=== PATIENT | female | born 1960 | race Caucasian/White ===

== ENCOUNTER 2016-11-22 14:51 | Outpatient (RCR) | payer BC ==
[~2016-11-22 14:51] MED LIST: ACDPT PO; ACHD5005 PO; AGM875T PO; ALBU8.5H2; ALBU8.5H2 IH; ALPR.5T PO; ATR20T PO; BENA40TA59; BNZ40T PO; BUDE6HFA IH; CA C1TAB26 PO; CETI10TA17 PO; CHOL10003 PO; CIPR500T4 PO; CLN.1T; CLN.1T PO; CLON0.1T PO; CYCL-97 PO; CYCL10TA9 PO; DIAZ2TAB PO; EP225NB05 INH; FELO5TAB3 PO; FEXO180T; FEXO180T PO; FLD5TCR; FLD5TCR PO; FLUT16SP22 NS; GFCD10B PO; GLUC-113 PO; GLUC-144 PO; HYDR-3063 PO; HYDR-3714 PO; HYDR-3812 PO; HYDR-707 PO; HYDR1CAP2; IBUP-15 PO; IPRA3AMP11 INH; IPRA3AMP19 IH; IPRA4AER IH; LEVO1CAP3 PO; LEVO1CAP9 PO; LEVO50TA6 PO; METH4TAB PO; MNTL10T PO; MULT-608; NS.65NA45; OXYC-12 PO; PERFORMIST; PRD10T PO; PRD20T PO; PRM25T PO; PROM25SU10 PR; SLMFT1E INH; TRIA1CAP; TRIA1CAP PO
== END 2017-02-20 | disposition home or self-care (01) ==
LOC: PULM 14:51
PROVIDERS: ATTEND Internal Medicine Critical Care Medicine
DX: G47.10 Hypersomnia, unspecified (principal); J06.9 Acute upper respiratory infection, unspecified; E66.9 Obesity, unspecified; F39 Unspecified mood [affective] disorder; E11.65 Type 2 diabetes mellitus with hyperglycemia
CPT/HCPCS: 99211

== ENCOUNTER → 2017-09-28 | Outpatient (CLI) | payer BC ==
[~2017-09-28] MED LIST changes: +RT-ALBUTEROL SULF 2.5 MG/3 ML PRE-MIX VIAL IH ONE
== END ==
LOC: RT 07:57
PROVIDERS: ATTEND Nurse Practitioner Family
DX: J98.4 Other disorders of lung (principal); J45.909 Unspecified asthma, uncomplicated
CPT/HCPCS: 94060; 94726; 94729

== ENCOUNTER 2018-03-30 16:13 | Inpatient (IN) | payer BC ==
[~2018-03-30] VITALS: Ht 167.6 cm; Wt 148.4 kg
[~2018-03-30 16:13] MED LIST changes: -HYDR-3812 PO; -RT-ALBUTEROL SULF 2.5 MG/3 ML PRE-MIX VIAL IH ONE
[2018-03-30] MEDS ORDERED: MILK OF MAGNESIA 400 MG/5 ML 30 ML UDC PO PRN (16:15)
[2018-03-30] MEDS ORDERED: ANTACID SUSP 30 ML UDC (MYLANTA) PO PRN (16:15)
[2018-03-30] MEDS ORDERED: ACETAMINOPHEN 500 MG TAB (TYLENOL) PO PRN (16:15)
[2018-03-30] MEDS ORDERED: MELATONIN 3 MG TABLET PO PRN (16:15)
[2018-03-30] MEDS ORDERED: VANCOMYCIN INJECTION 0.1 MG in NS (IVPB) 250 ML IV SCH (16:15)
[2018-03-30] MEDS ORDERED: ONDANSETRON 4 MG/2 ML (SDV) Z0FRAN IV PRN (16:15)
--- OUTSIDE RECORDS SUMMARY | 2018-03-30 16:54 | XMS REPORT | Clinical Summary ---
Author Author User, HENRI Organization Formerly [facility] [place] Address Unknown Phone Unavailable Allergies, Adverse Reactions, Alerts Allergy Name Reaction Description Start Date Severity Status Provider NORVAS Critical Active Shayla Jimenez ERYTHROMYCIN Dermatological problems, e.g., rash, hives Critical Active Shayla Jimenez Conditions or Problems Problem Name Problem Code Onset Date Status Entry Date Provider Comment Standard Description Annotate ELEVATED BLOOD PRESSURE WITHOUT DIAGNOSIS OF HYPERTENSION 796.2 Refinement Shayla Jimenez Elevated blood pressure reading without diagnosis of hypertension HYPERTENSION, BENIGN ESSENTIAL, SEVERE 401.1 Active Shayla Jimenez Benign essential hypertension OBESITY 278.00 Active Shayla Jimenez Obesity, unspecified DIABETES MELLITUS, TYPE II, FAMILY HX V18.0 Resolved Shayla Jimenez Family history of diabetes mellitus ABNORMAL MAMMOGRAM 793.80 Resolved Shayla Jimenez Abnormal mammogram, unspecified OSTEOARTHRITIS 715.90 Active Shayla Jimenez Osteoarthrosis, unspecified whether generalized or localized, involving unspecified site HYPERCHOLESTEROLEMIA 272.0 Active Shayla Jimenez Pure hypercholesterolemia HYPERTRIGLYCERIDEMIA 272.1 Active Shayla Jimenez Pure hyperglyceridemia ASTHMA NOS W/O STATUS ASTHMATICUS 493.90 Resolved Shayla Jimenez Asthma, unspecified BREAST MASS, LEFT 611.72 Resolved Shayla Jimenez Lump or mass in breast URI 465.9 Resolved Shayla Jimenez Acute upper respiratory infections of unspecified site KNEE PAIN 719.46 Resolved Shayla Jimenez Pain in joint involving lower leg right WEIGHT GAIN, ABNORMAL 783.1 Resolved Shayla Jimenez Abnormal weight gain DECREASED LIBIDO 302.70 Resolved Shayla Jimenez Psychosexual dysfunction, unspecified CARPAL TUNNEL SYNDROME, BILATERAL 354.0 Resolved Shayla Jimenez Carpal tunnel syndrome HEMOCHROMATOSIS, FAMILY HX V18.1 Resolved Shayla Jimenez Family history of other endocrine and metabolic diseases 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 Shayla Jimenez 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 RHINITIS 472.0 Resolved Shayla Jimenez Chronic rhinitis ASTHMA, CHRN OBST W/(ACUTE) EXACERBATION 493.22 Resolved Shayla Jimenez Chronic obstructive asthma, with (acute) exacerbation DIABETES MELLITUS, NONINSULIN DEPENDENT (NIDDM) 250.02 Active Shayla Jimenez Diabetes mellitus without mention of complication, type II or unspecified type, uncontrolled RESPIRATORY FAILURE, ACUTE 518.81 Resolved Shayla Jimenez Acute respiratory failure PNEUMONIA 486 Resolved Shayla Jimenez Pneumonia, organism unspecified AMENORRHEA 626.0 Resolved Shayla Jimenez Absence of menstruation LUMBAR SPRAIN AND STRAIN 847.2 Resolved Shayla Jimenez Lumbar sprain SCIATICA/HERNIATED DISC 722.10 Resolved Shayla Jimenez Displacement of lumbar intervertebral disc without myelopathy NEUROPATHY, IDIOPATHIC PERIPHERAL 356.9 Active Shayla Jimenez Unspecified idiopathic peripheral neuropathy DEGENERATIVE DISC DISEASE, LUMBOSACRAL SPINE W/RADICULOPATHY 722.10 Active Shayla Jimenez Displacement of lumbar intervertebral disc without myelopathy DERMATOPHYTOSIS, FOOT (TINEA PEDIS) 110.4 Resolved Shayla Jimenez Dermatophytosis of foot FOOT DROP, RIGHT 736.79 Resolved Shayla Jimenez Other acquired deformities of ankle and foot FOOT PAIN, RIGHT 729.5 Active Shayla Jimenez Pain in limb STRIDOR 786.1 Resolved Shayla Jimenez Stridor REFLEX SYMPATHETIC DYSTROPHY 337.20 Active Shayla Jimenez Reflex sympathetic dystrophy, unspecified HEALTH SCREENING V70.0 Inactive Shayla Jimenez Routine general medical examination at a health care facility STREPTOCOCCAL PHARYNGITIS 034.0 Resolved Shayla Jimenez Streptococcal sore throat HEALTH SCREENING V70.0 Resolved Shayla Jimenez Routine general medical examination at a health care facility SLEEP APNEA, OBSTRUCTIVE 780.57 Active Shayla Jimenez Unspecified sleep apnea ASTHMA, CHRN OBST W/(ACUTE) EXACERBATION 493.22 Active Shayla Jimenez Chronic obstructive asthma, with (acute) exacerbation RESPIRATORY FAILURE, ACUTE 518.81 Active Shayla Jimenez Acute respiratory failure Medication List Medication Instructions Start Date Stop Date Generic Name NDC Status Provider Patient Instruction PREDNISONE 10 MG TAB Four pills twice daily for 2 days then 2 pills twice daily until further notice PREDNISONE 23110767091 Active Shayla Jimenez DOXYCYCLINE HYCLATE 100 MG CAP 1 po BID DOXYCYCLINE HYCLATE 65051723863 Active Shayla Jimenez SYNTHROID 0.05 MG TAB 1 PO daily LEVOTHYROXINE SODIUM 23912577639 Active Shaylachance Jimenez PREDNISONE 10 MG TAB 4 Pills once daily for two days then 2 pills daily until further notice. PREDNISONE 96835973723 No Longer Active Shaylachance Jimenez RACEMIC EPINEPHRINE 2.25% NEBULIZER TREATMENT 1 treatment Q4hrs prn stridor RACEMIC EPINEPHRINE 2.25% NEBULIZER TREATMENT No Longer Active Shaylachance Jimenez NYSTATIN 410454 U/ML SUSP 5cc PO QID for 7 days NYSTATIN 53717869371 No Longer Active Shaylachance Jimenez OMEPRAZOLE 20 MG CPDR 1 PO daily OMEPRAZOLE 10327046683 No Longer Active Shaylachance Jimenez FELODIPINE ER 5 MG [id number] 1 PO DAILY FELODIPINE 57737873766 Active Shaylachance Jimenez AUGMENTIN 500-125 MG TAB 1 PO BID AMOXICILLIN-POT CLAVULANATE 64033557213 No Longer Active Shaylachance Jimenez COMBIVENT RESPIMAT 20-100 MCG/ACT AERS 2 puffs Q6hrs prn IPRATROPIUM- ALBUTEROL 38666986273 Active Shaylachance Jimenez ALPRAZOLAM 0.5 MG TABS 1 PO Q6hrs prn anxiety ALPRAZOLAM 08740294858 No Longer Active Shayla Jimenez HYDROCODONE-ACETAMINOPHEN 5-325 MG TABS 1-2 PO Q4-6 hrs prn pain HYDROCODONE-ACETAMINOPHEN 17144864459 Active Shaylachance Jimenez ZYRTEC 10 MG TAB 1 PO QD CETIRIZINE HCL Active Shaylachance Jimenez NYSTATIN 230678 U/ML SUSP 5cc PO QID for 7 days NYSTATIN 91724843774 No Longer Active Jane PASCUALTANX RF 3-90.314-2-35 MG CAPS 1 PO BID [id number]-[id number]-VHHCQ -B12-B6 56452359147 Active Tika [place] FLONASE 50 MCG/ACT SUSP 2 puffs each nostril daily FLUTICASONE PROPIONATE 92868984901 Active Shayla Jackeline Jimenez VITAMIN D 1000 UNIT TABS 1 PO Daily CHOLECALCIFEROL 82709663849 Active Shayla Jackeline Jimenez PERFOROMIST 20 MCG/2ML NEBU 1 treatment BID FORMOTEROL FUMARATE 12826316365 No Longer Active Shayla Jackeline Jimenez LIPITOR 20 MG TAB 1 PO QD ATORVASTATIN CALCIUM 14226423637 Active Shayla Jackeline Jimenez GLUCOSAMINE-CHONDROITIN CAPS as directed GLUCOSAMINE- CHONDROIT-VIT C-MN 40232752487 No Longer Active Shaylachance Jimenez PROMETHAZINE HCL 25 MG SUPP 1 MN Q6hrs prn nausea PROMETHAZINE HCL 92719563772 No Longer Active Shayla Jackeline Jimenez PROMETHAZINE HCL 25 MG TABS 1 PO Q6hrs prn nasuea PROMETHAZINE HCL 40118314296 No Longer Active Shayla Jackeline Jimenez PERCOCET 5-325 MG TAB 1 PO Q 6 hours OXYCODONE- ACETAMINOPHEN 09280197024 No Longer Active Shaylachance Jimenez LOTRISONE 0.05-1 % CREAM apply to affected area on left leg BID for 2 weeks CLOTRIMAZOLE-BETAMETHASONE 99923852764 No Longer Active Shaylachance Jimenez PREDNISONE 20 MG TAB 2 pills at once for 5 days then 1 pill daily for 5 days PREDNISONE 31260888039 No Longer Active Shaylachance Jimenez ADVAIR DISKUS 100-50 MCG/DOSE MISC 1 puff BID FLUTICASONE-SALMETEROL 20410021664 No Longer Active Shaylachance Jimenez SYMBICORT 160-4.5 MCG/ACT AERO 2 puffs BID BUDESONIDE- FORMOTEROL FUMARATE 74896068587 Active Shayla Jimenez PREDNISONE 20 MG TAB 2 pills at once for 3 days then 1 pill daily for 3 days PREDNISONE 28884019902 No Longer Active Josi Menard PREDNISONE 20 MG TAB 2 PO DAILY x 3 days, then 1 PO DAILY x 3 days PREDNISONE 06836130119 No Longer Active Shaylachance Jimenez FLEXERIL 10 MG TABS 1 PO TID PRN CYCLOBENZAPRINE HCL Active Tikajimmy Ruiz LAMISIL 250 MG TAB 1 PO daily for 2 weeks TERBINAFINE HCL 72100154323 No Longer Active Shayla Jimenez VALIUM 2 MG TAB 1 PO 30 minutes before MRI and may repeat. 12/15 DIAZEPAM 01068753757 No Longer Active Tika Ruiz SINGULAIR 10 MG TABS 1 PO daily at night MONTELUKAST SODIUM 33364642687 Active Tika Ruiz DUONEB 0.5-2.5 (3) MG/3ML SOLN 1 treatment QID prn IPRATROPIUM -ALBUTEROL Active Ryan Pace ADVAIR DISKUS 100-50 MCG/DOSE MISC 1 puff BID FLUTICASONE- SALMETEROL 35499902719 No Longer Active Shayla Jimenez IBUPROFEN 200 MG TAB 2 PO Q4hrs prn IBUPROFEN 44923891298 Active Shaylachance Jimenez PROAIR HFA 108 (90 BASE) MCG/ACT AERS 2 puffs Q4-6hrs prn ALBUTEROL SULFATE 94478135228 Active Kathryn Reyes CLONIDINE HCL 0.1 MG TAB 1 po bid for blood pressure CLONIDINE HCL 55373733830 Active Tika Ruiz IBUPROFEN 200 MG TABS 4 PO at HS for knee pain IBUPROFEN 78755150705 No Longer Active Shayla Jimenez ALEVE TABS 2 PO daily NAPROXEN SODIUM TABS 68097734460 No Longer Active Shaylachance Jimenez ROBITUSSIN A-C 10-100 MG/5ML SYRUP 5cc PO Q 4-6 hr prn ROBITUSSIN A-C 10-100 MG/5ML SYRUP 79538316068 No Longer Active Shayla Jackeline Jimenez ADVAIR DISKUS 100-50 MCG/DOSE MISC 1 puff BID FLUTICASONE-SALMETEROL 19099608639 No Longer Active Shayla Jackeline Jimenez PREDNISONE 20 MG TAB 3 daily for 2 days, 2 daily for 2 days, 1 daily for 3 days PREDNISONE 47813179360 No Longer Active Shayla Jackeline Jimenez MANPREET 180 MG TABS 1 PO daily FEXOFENADINE HCL 53030816903 No Longer Active Shayla Jackeline Jimenez LOTENSIN 40 MG TABS 1 PO daily BENAZEPRIL HCL 62547170782 Active Shayla Jackeline Jimenez HYDROCODONE-ACETAMINOPHEN 5-500 MG TABS 1 po q 6 hrs. prn pain HYDROCODONE-ACETAMINOPHEN 86450000572 No Longer Active Shayla Jackeline Jimenez TYLENOL 500 MG TAB 2 PO Qhrs prn ACETAMINOPHEN 32635146661 No Longer Active Shayla Jackeline Jimenez LORTAB 5 5-500 MG TABS 1 to 2 PO Q6hrs prn ACETAMINOPHEN-HYDROCODONE 11482843302 No Longer Active Shaylachance Jimenez DYAZIDE 37.5-25 MG CAPS 1 PO daily TRIAMTERENE-HCTZ 55632362854 Active Shayla Jackeline Jimenez HYDROCHLOROTHIAZIDE 25 MG TABS 1 daily. HYDROCHLOROTHIAZIDE 53247938622 No Longer Active Shaylachance Jimenez NORVASC 5 MG TAB 1 PO QD AMLODIPINE BESYLATE 04464908598 No Longer Active Shaylachance Jimenez Immunizations Vaccine Administration Date Value Standard Description Influenza vaccine given done influenza virus vaccine, unspecified formulation Vital Signs Date Name Value Unit Range Description blood pressure, diastolic - 8462-4 80 mm[Hg] BP [place]ana blood pressure, systolic - 8480-6 160 mm[Hg] BP sys pulse rate E&M - 8867-4 60 /min Heart rate respiratory rate E&M - 9279-1 14 /min Resp rate blood pressure, diastolic - 8462-4 74 mm[Hg] BP [place] blood pressure, systolic - 8480-6 136 mm[Hg] BP sys pulse rate E&M - 8867-4 86 /min Heart rate respiratory rate E&M - 9279-1 14 /min Resp rate temperature E&M 97.3 [degF] Body temperature blood pressure, diastolic - 8462-4 90 mm[Hg] BP [place] blood pressure, systolic - 8480-6 142 mm[Hg] BP sys pulse rate E&M - 8867-4 102 /min Heart rate respiratory rate E&M - 9279-1 14 /min Resp rate temperature E&M 98.7 [degF] Body temperature blood pressure, diastolic - 8462-4 84 mm[Hg] BP [place] blood pressure, systolic - 8480-6 132 mm[Hg] BP sys pulse rate E&M - 8867-4 82 /min Heart rate respiratory rate E&M - 9279-1 14 /min Resp rate weight E&M - 3141-9 347 [lb_av] Weight Measured blood pressure, diastolic - 8462-4 80 mm[Hg] BP [place] blood pressure, systolic - 8480-6 140 mm[Hg] BP sys pulse rate E&M - 8867-4 92 /min Heart rate respiratory rate E&M - 9279-1 14 /min Resp rate temperature E&M 98.6 [degF] Body temperature weight E&M - 3141-9 347 [lb_av] Weight Measured Diagnostic Results Date Name Value Unit Range Description Clinical Lists Update: CBC,CMP,FLP,HGA1C - Chemistry Estimated Glomerular Filtration Rate (calc) 59 mL/min/1.73m2 glucose, plasma fasting 138 mg/dL albumin, serum 3.9 g/dL alkaline phosphatase, serum 104 U/L urea nitrogen, blood 17 mg/dL calcium, serum 9.3 mg/dL chloride, serum 104 mmol/L cholesterol, serum 147 mg/dL cholesterol/HDL ratio, serum, percent 3.3 anion gap, serum 10 sodium, serum 140 mmol/L triglyceride, serum, fasting 143 mg/dL bilirubin, serum, total 0.5 mg/dL alanine aminotransferase (SGPT), serum 23 U/L aspartate aminotransferase (SGOT), serum 15 U/L protein, total, serum 6.5 g/dL potassium, serum 4.2 mmol/L LDL cholesterol, serum 74 mg/dL hemoglobin A1C, blood, as % of total hemoglobin 6.7 % HDL cholesterol, serum 44.0 mg/dL creatinine, serum 1.0 mg/dL carbon dioxide, venous blood 30.0 mmol/L Clinical Lists Update: CBC,CMP,FLP,HGA1C - Hematology erythrocyte (RBC) count 4.12 10*6/mm3 leukocyte count, blood 5.6 10*3/mm3 mean corpuscular volume, RBC 99 fL red blood cell distribution width 14.8 % hemoglobin, blood 12.6 g/dL platelet count 255 10*3/mm3 hematocrit, blood 41 % Clinical Lists Update: CMP,Chol,Trig,HgA1c - Chemistry Estimated Glomerular Filtration Rate (calc) 65 mL/min/1.73m2 glucose, plasma fasting 123 mg/dL anion gap, serum 11 sodium, serum 139 mmol/L triglyceride, serum, fasting 121 mg/dL bilirubin, serum, total 0.4 mg/dL alanine aminotransferase (SGPT), serum 24 U/L aspartate aminotransferase (SGOT), serum 15 U/L protein, total, serum 6.6 g/dL potassium, serum 3.9 mmol/L hemoglobin A1C, blood, as % of total hemoglobin 6.7 % creatinine, serum 0.9 mg/dL carbon dioxide, venous blood 29.0 mmol/L cholesterol, serum 146 mg/dL chloride, serum 103 mmol/L calcium, serum 9.3 mg/dL urea nitrogen, blood 22 mg/dL alkaline phosphatase, serum 117 U/L albumin, serum 4.0 g/dL Clinical Lists Update: CMP,FLP,TSH,HGA1C,Microalbumin - Chemistry Estimated Glomerular Filtration Rate (calc) 57 mL/min/1.73m2 glucose, plasma fasting 120 mg/dL cholesterol/HDL ratio, serum, percent 3.4 anion gap, serum 10 sodium, serum 136 mmol/L triglyceride, serum, fasting 172 mg/dL bilirubin, serum, total 0.4 mg/dL alanine aminotransferase (SGPT), serum 22 U/L aspartate aminotransferase (SGOT), serum 14 U/L protein, total, serum 6.6 g/dL potassium, serum 4.3 mmol/L LDL cholesterol, serum 72 mg/dL thyroid stimulating hormone, serum 4.81 u[iU]/mL hemoglobin A1C, blood, as % of total hemoglobin 6.8 % HDL cholesterol, serum 45.0 mg/dL creatinine, serum 1.1 mg/dL carbon dioxide, venous blood 28.0 mmol/L cholesterol, serum 151 mg/dL chloride, serum 102 mmol/L calcium, serum 9.5 mg/dL urea nitrogen, blood 22 mg/dL alkaline phosphatase, serum 108 U/L albumin, serum 4.0 g/dL Clinical Lists Update: CMP,FLP,TSH,HGA1C,Microalbumin - Urinalysis microalbumin, urine, semiquantitative 0.3 mg/dL Encounters Code Encounter Date Provider Facility CPT-87207 Ofc Vst, Est Level IV 17:23:26 CDT Shaylachance Jimenez, DO, FACP CPT-51457 Ofc Vst, Est Level IV 16:53:10 CDT Shayla Jimenez, DO, FACP CPT-46318 Ofc Vst, Est Level III 16:04:12 CDT Shaylachance Jimenez, DO, FACP CPT-91236 Ofc Vst, Est Level IV 20:12:26 SILK SCREEN REPAIRER Shayla Jimenez, DO, FACP CPT-48053 Ofc Vst, Est Level III 16:23:57 CDT Shayla Jimenez, DO, FACP CPT-28743 Ofc Vst, Est Level III 20:32:21 SILK SCREEN REPAIRER Shayla Jimenez, DO, FACP CPT-87176 Ofc Vst, Est Level IV 14:30:40 SILK SCREEN REPAIRER Shayla Jimenez, DO, FACP CPT-92173 Ofc Vst, Est Level IV 21:36:28 CDT Shayla Jimenez, DO, FACP CPT-39915 Ofc Vst, Est Level IV 17:00:43 CDT Shayla Jackeline Jimenez Shayla S Jimenez, DO, FACP CPT-20846 Ofc Vst, Est Level IV 16:15:28 CDT Shayla Jackeline Hong Tony, DO, FACP CPT-24595 Ofc Vst, Est Level IV 13:40:25 CDT Shayla Jackeline Hong Tony, DO, FACP CPT-69848 Ofc Vst, Est Level IV 14:08:24 CDT Shayla Jackeline Hong Tony, DO, FACP CPT-86137 Ofc Vst, Est Level III 16:11:21 CDT Shayla Jackeline Hong Tony, DO, FACP CPT-06431 Ofc Vst, Est Level IV 08:41:50 SILK SCREEN REPAIRER Shayla Hong Tony, DO, FACP CPT-82276 Ofc Vst, Est Level III 15:21:14 CDT Shaylachance Hong Tony, DO, FACP CPT-79323 Ofc Vst, Est Level V 11:09:46 CDT Shayla Hong Tony, DO, FACP CPT-81440 Ofc Vst, Est Level IV 11:38:53 CDT Shayla Hong Tony, DO, FACP CPT-52407 Office Consult, Level IV 15:08:29 CDT Shaylachance Hong Tony, DO, FACP CPT-67715 Ofc Vst, Est Level III 10:32:31 CDT Shaylachance Hong Tony, DO, FACP CPT-70381 Ofc Vst, Est Level V 16:21:30 CDT Shayla Hong Tony, DO, FACP CPT-86616 Ofc Vst, Est Level III 16:34:59 SILK SCREEN REPAIRER Shayla Hong Tony, DO, FACP CPT-64248 Ofc Vst, Est Level IV 15:47:00 SILK SCREEN REPAIRER Shaylachance Hong Jimenez, DO, FACP CPT-61256 Ofc Vst, Est Level IV 10:47:45 SILK SCREEN REPAIRER Shayla Hong Jimenez, DO, FACP CPT-57406 Ofc Vst, Est Level IV 16:03:38 SILK SCREEN REPAIRER Shayla Jackeline Hong Jimenez, DO, FACP CPT-53140 Ofc Vst, Est Level V 10:34:09 SILK SCREEN REPAIRER Shayla Jackeline Hong Jimenez, DO, FACP CPT-08891 Ofc Vst, Est Level IV 15:33:57 CDT Shayla Hong Jimenez, DO, FACP CPT-82156 Ofc Vst, Est Level IV 16:16:24 CDT Shaylahcance Hong Tony, DO, FACP CPT-21108 Ofc Vst, Est Level IV 16:08:16 SILK SCREEN REPAIRER Shayla Jackeline Hong Jimenez, DO, FACP CPT-35985 Ofc Vst, Est Level IV 10:48:11 CDT Shaylachance Hong Jimenez, DO, FACP CPT-24417 Ofc Vst, Est Level IV 11:28:59 CDT Shaylachance Hong Jimenez, DO, FACP CPT-28442 Ofc Vst, Est Level IV 16:18:27 SILK SCREEN REPAIRER Shayla Jackeline Hong Jimenez, DO, FACP CPT-73515 Ofc Vst, Est Level IV 11:20:46 SILK SCREEN REPAIRER Shayla Jackeline Mcguire S Jimenez, DO, FACP CPT-36639 Ofc Vst, Est Level V 13:33:16 SILK SCREEN REPAIRER Shayla Hong Jimenez, DO, FACP CPT-83404 Ofc Vst, Est Level IV 16:07:29 CDT Shaylachance Hong Tony, DO, FACP CPT-91251 Ofc Vst, Est Level IV 09:41:53 CDT Shayla Jackeline Hong Tony, DO, FACP CPT-86796 Ofc Vst, Est Level IV 16:47:11 SILK SCREEN REPAIRER Shayla Jackeline Hong Tony, DO, FACP CPT-10863 Ofc Vst, Est Level IV 13:05:18 CDT Shayla Jackeline Hong Tony, DO, FACP CPT-23144 Ofc Vst, Est Level III 16:53:23 CDT Shayla Jackeline Hong Tony, DO, FACP CPT-13068 Ofc Vst, Est Level IV 16:04:34 CDT Shayla Jackeline Hong Tony, DO, FACP CPT-24882 Ofc Vst, Est Level IV 21:27:13 SILK SCREEN REPAIRER Shayla Jackeline Hong Tony, DO, FACP CPT-91005 Ofc Vst, Est Level III 16:27:35 CDT Shayla Jackeline Hong Tony, DO, FACP CPT-26737 Ofc Vst, Est Level IV 16:39:25 CDT Shaylachance Hong Tony, DO, FACP CPT-63400 Ofc Vst, Est Level III 16:55:35 CDT Shayla Jackeline Tony [facility] [place] CPT-65562 Ofc Vst, Est Level III 16:54:43 CDT Shayla Jackeline Jimenez [facility] [place] CPT-59337 Ofc Vst, Est Level IV 09:20:28 CDT Hsayla Jackeline Jimenez [facility] [place] CPT-92314 Ofc Vst, Est Level IV 16:54:13 SILK SCREEN REPAIRER Shayla Jackeline Jimenez [facility] [place] CPT-88380 Ofc Vst, Est Level III 16:37:40 CDT Shaylachance Jimenez [facility] [place] CPT-85390 Ofc Vst, Est Level IV 11:44:17 CDT Shayla Jackeline Jimenez [facility] [place] CPT-57165 Ofc Vst, Est Level III 16:17:20 SILK SCREEN REPAIRER Shayla Jackelineolvin Jimenez [facility] [place] CPT-67524 Ofc Vst, Est Level III 17:45:48 CDT Shayla Jackelineolvin Jimenez [facility] [place] CPT-11147 Ofc Vst, Est Level IV 09:23:42 CDT Shayla Jackelineolvin Jimenez [facility] [place] CPT-75472 Ofc Vst, Est Level III 21:31:16 CDT Shayla Jackelineolvin Jimenez [facility] [place] CPT-90584 Ofc Vst, Est Level II 17:28:49 SILK SCREEN REPAIRER Shayla Jimenez [facility] [place] CPT-89242 Ofc Vst, Est Level III 18:24:08 SILK SCREEN REPAIRER Shaylachance Jimenez [facility] [place] CPT-90920 Ofc Vst, Est Level III 17:48:50 CDT Shayla Jackeline Jimenez [facility] [place] CPT-28246 Ofc Vst, Est Level IV 19:58:07 CDT Shaylachance Jimenez [facility] [place] CPT-03586 Ofc Vst, Est Level IV 17:24:24 CDT Shayla Jackeline Jimenez [facility] [place] CPT-08368 Ofc Vst, Est Level IV 18:48:08 CDT Shayla Jackeline Jimenez [facility] [place] CPT-77401 Ofc Vst, New Level IV 15:16:23 CDT Shayla Jimenez [facility] [place] Procedures Code Procedure Name Date Entry Date Standard Description CPT-87056 Preventive, Est, (40-64) 14:59:52 CDT CPT-38934 Handling of specimen from office to lab 20:32:21 SILK SCREEN REPAIRER CPT-79519 Strep Test 20:32:21 SILK SCREEN REPAIRER CPT-83467 Preventive, Est, (40-64) 13:09:30 CDT CPT-43804 Injection 16:39:25 CDT
[2018-03-30 16:55] VITALS: BP 120/63
--- OUTSIDE RECORDS SUMMARY | 2018-03-30 16:55 | XMS REPORT | Clinical Summary ---
Author Author User, HENRI Organization [facility] [place] Address Unknown Phone Unavailable Allergies, Adverse Reactions, [...] TYPE II, FAMILY HX V18.0 Resolved Shayla Jiemnez Family history of diabetes mellitus ABNORMAL MAMMOGRAM [...] rhinitis ASTHMA, CHRN OBST W/(ACUTE) EXACERBATION 493.22 Active [...] 780.57 Active Shayla Jimenez Unspecified sleep apnea Medication List Medication Instructions Start Date Stop Date Generic Name NDC Status Provider Patient Instruction RACEMIC EPINEPHRINE 2.25% NEBULIZER TREATMENT 1 treatment Q4hrs prn stridor RACEMIC EPINEPHRINE 2.25% NEBULIZER TREATMENT No Longer Active Shayla Jimenez NYSTATIN 594591 U/ML SUSP 5cc PO QID for 7 days NYSTATIN 94475110477 No Longer Active Shayla Jimeenz OMEPRAZOLE 20 MG CPDR 1 PO daily OMEPRAZOLE 71799062474 No Longer Active Shayla Jimenez FELODIPINE ER 5 MG [id number] 1 PO DAILY FELODIPINE 65311040109 Active Shayla Jimenez AUGMENTIN 500-125 MG TAB 1 PO BID AMOXICILLIN-POT CLAVULANATE 62410720634 No Longer Active Shaylachance Jimenez COMBIVENT RESPIMAT 20-100 MCG/ACT AERS 2 puffs Q6hrs prn IPRATROPIUM- ALBUTEROL 51538764268 Active Shaylachance Jimenez ALPRAZOLAM 0.5 MG TABS 1 PO Q6hrs prn anxiety ALPRAZOLAM 12429717492 No Longer Active Shayla Jackeline Jimenez HYDROCODONE-ACETAMINOPHEN 5-325 MG TABS 1-2 PO Q4-6 hrs prn pain HYDROCODONE-ACETAMINOPHEN 51719279959 Active Shayla Jackeline Jimenez ZYRTEC 10 MG TAB 1 PO QD CETIRIZINE HCL Active Shayla Jackeline Jimenez NYSTATIN 705989 U/ML SUSP 5cc PO QID for 7 days NYSTATIN 65467163626 No Longer Active Jane Perla FOLTANX RF 3-90.314-2-35 MG CAPS 1 PO BID A-RAHKBTYJIINZ-KEKVP -B12-B6 09365551695 Active Tammy Schrichardbach FLONASE 50 MCG/ACT SUSP 2 puffs each nostril daily FLUTICASONE PROPIONATE 12203601043 Active Shaylachance Jimenez VITAMIN D 1000 UNIT TABS 1 PO Daily CHOLECALCIFEROL 46871250189 Active Shaylachance Jimenez PERFOROMIST 20 MCG/2ML NEBU 1 treatment BID FORMOTEROL FUMARATE 27472738674 No Longer Active Shaylachance Jimenez LIPITOR 20 MG TAB 1 PO QD ATORVASTATIN CALCIUM 59025153464 Active Shaylachance Jimenez GLUCOSAMINE-CHONDROITIN CAPS as directed GLUCOSAMINE- CHONDROIT-VIT C-MN 23226073407 No Longer Active Shaylachance Jimenez PROMETHAZINE HCL 25 MG SUPP 1 ID Q6hrs prn nausea PROMETHAZINE HCL 78907781635 No Longer Active Shayla Jackeline Jimenez PROMETHAZINE HCL 25 MG TABS 1 PO Q6hrs prn nasuea PROMETHAZINE HCL 33545730814 No Longer Active Shayla Jackeline Jimenez PERCOCET 5-325 MG TAB 1 PO Q 6 hours OXYCODONE- ACETAMINOPHEN 20074045914 No Longer Active Shayla Jackeline Jimenez LOTRISONE 0.05-1 % CREAM apply to affected area on left leg BID for 2 weeks CLOTRIMAZOLE-BETAMETHASONE 78440506996 No Longer Active Shaylachance Jimenez PREDNISONE 20 MG TAB 2 pills at once for 5 days then 1 pill daily for 5 days PREDNISONE 43097756560 No Longer Active Shaylachance Jimenez ADVAIR DISKUS 100-50 MCG/DOSE MISC 1 puff BID FLUTICASONE-SALMETEROL 71619922938 No Longer Active Shaylachance Jimenez SYMBICORT 160-4.5 MCG/ACT AERO 2 puffs BID BUDESONIDE- FORMOTEROL FUMARATE 70945932493 Active Shaylachance Jimenez PREDNISONE 20 MG TAB 2 pills at once for 3 days then 1 pill daily for 3 days PREDNISONE 10504638763 No Longer Active Josi Derian PREDNISONE 20 MG TAB 2 PO DAILY x 3 days, then 1 PO DAILY x 3 days PREDNISONE 09463353101 No Longer Active Shayla Jimenez FLEXERIL 10 MG TABS 1 PO TID PRN CYCLOBENZAPRINE HCL Active Shayla Jackeline Jimenez LAMISIL 250 MG TAB 1 PO daily for 2 weeks TERBINAFINE HCL 92354113353 No Longer Active Shayla Jimenez VALIUM 2 MG TAB 1 PO 30 minutes before MRI and may repeat. 12/15 DIAZEPAM 85530463064 No Longer Active Tika Ruiz SINGULAIR 10 MG TABS 1 PO daily at night MONTELUKAST SODIUM 97675344192 Active Tammy Booth DUONEB 0.5-2.5 (3) MG/3ML SOLN 1 treatment QID prn IPRATROPIUM -ALBUTEROL Active Ryan Pace ADVAIR DISKUS 100-50 MCG/DOSE MISC 1 puff BID FLUTICASONE- SALMETEROL 52034911202 No Longer Active Shaylachance Jimenez IBUPROFEN 200 MG TAB 2 PO Q4hrs prn IBUPROFEN 87861444615 Active Shayla Jackeline Jimenez PROAIR HFA 108 (90 BASE) MCG/ACT AERS 2 puffs Q4-6hrs prn ALBUTEROL SULFATE 72258922851 Active Kathryn Reyes CLONIDINE HCL 0.1 MG TAB 1 po bid for blood pressure CLONIDINE HCL 82181402247 Active Shaylachance Jimenez IBUPROFEN 200 MG TABS 4 PO at HS for knee pain IBUPROFEN 88440529547 No Longer Active Shayla Jackeline Jimenez ALEVE TABS 2 PO daily NAPROXEN SODIUM TABS 95497688994 No Longer Active Shaylachance Jimenez ROBITUSSIN A-C 10-100 MG/5ML SYRUP 5cc PO Q 4-6 hr prn ROBITUSSIN A-C 10-100 MG/5ML SYRUP 54326658285 No Longer Active Shaylachance Jimenez ADVAIR DISKUS 100-50 MCG/DOSE MISC 1 puff BID FLUTICASONE-SALMETEROL 60632377349 No Longer Active Shaylachance Jimenez PREDNISONE 20 MG TAB 3 daily for 2 days, 2 daily for 2 days, 1 daily for 3 days PREDNISONE 00349015722 No Longer Active Shayla Jackeline Jimenez MANPREET 180 MG TABS 1 PO daily FEXOFENADINE HCL 60393966359 No Longer Active Shaylachance Jimenez LOTENSIN 40 MG TABS 1 PO daily BENAZEPRIL HCL 18236274734 Active Shaylachance Jimenez HYDROCODONE-ACETAMINOPHEN 5-500 MG TABS 1 po q 6 hrs. prn pain HYDROCODONE-ACETAMINOPHEN 57866111730 No Longer Active Shayla Jackeline Jimenez TYLENOL 500 MG TAB 2 PO Qhrs prn ACETAMINOPHEN 32550881189 No Longer Active Shayla Jackeline Mixonner LORTAB 5 5-500 MG TABS 1 to 2 PO Q6hrs prn ACETAMINOPHEN-HYDROCODONE 94298875205 No Longer Active Shayla Jackeline Jimenez DYAZIDE 37.5-25 MG CAPS 1 PO daily TRIAMTERENE-HCTZ 01102538580 Active Shayla Jackeline Tony HYDROCHLOROTHIAZIDE 25 MG TABS 1 daily. HYDROCHLOROTHIAZIDE 46574763889 No Longer Active Shayla Jackeline Tony NORVASC 5 MG TAB 1 PO QD AMLODIPINE BESYLATE 76027325774 No Longer Active Shaylachance Cortese Tony Immunizations Vaccine Administration Date Value Standard Description Influenza vaccine given done influenza virus vaccine, unspecified formulation Vital Signs Date Name Value Unit Range Description blood pressure, diastolic - 8462-4 84 mm[Hg] [...] Weight Measured blood pressure, diastolic - 8462-4 90 mm[Hg] BP santana blood pressure, systolic - 8480-6 140 mm[Hg] BP sys pulse rate E&Helen - 8867-4 95 /min Heart rate respiratory rate E&Helen - 9279-1 14 /min Resp rate weight E&Helen - 3141-9 347 [lb_av] Weight Measured Diagnostic Results Date Name Value Unit Range Description Clinical Lists Update: CBC,CMP,FLP,HGA1C - Chemistry albumin, serum 3.9 g/dL potassium, serum 4.2 mmol/L alkaline phosphatase, serum 104 U/L glucose, plasma fasting 138 mg/dL urea nitrogen, blood 17 mg/dL cholesterol/HDL ratio, serum, percent 3.3 calcium, serum 9.3 mg/dL anion gap, serum 10 chloride, serum 104 mmol/L sodium, serum 140 mmol/L cholesterol, serum 147 mg/dL triglyceride, serum, fasting 143 mg/dL carbon dioxide, venous blood 30.0 mmol/L bilirubin, serum, total 0.5 mg/dL creatinine, serum 1.0 mg/dL alanine aminotransferase (SGPT), serum 23 U/L HDL cholesterol, serum 44.0 mg/dL aspartate aminotransferase (SGOT), serum 15 U/L hemoglobin A1C, blood, as % of total hemoglobin 6.7 % protein, total, serum 6.5 g/dL LDL cholesterol, serum 74 mg/dL Estimated Glomerular Filtration Rate (calc) 59 mL/min/1.73m2 Clinical Lists Update: CBC,CMP,FLP,HGA1C - Hematology hemoglobin, blood 12.6 g/dL hematocrit, blood 41 % platelet count 255 10*3/mm3 erythrocyte (RBC) count 4.12 10*6/mm3 leukocyte count, blood 5.6 10*3/mm3 mean corpuscular volume, RBC 99 fL red blood cell distribution width 14.8 % Clinical Lists Update: CMP, TSH, HbA1c, MicroAlbumin - Chemistry creatinine, serum 1.2 mg/dL LDL cholesterol, serum 74 mg/dL carbon dioxide, venous blood 27.0 mmol/L bilirubin, serum, total 0.4 mg/dL cholesterol, serum 153 mg/dL triglyceride, serum, fasting 185 mg/dL chloride, serum 103 mmol/L sodium, serum 139 mmol/L calcium, serum 9.7 mg/dL anion gap, serum 14 urea nitrogen, blood 29 mg/dL cholesterol/HDL ratio, serum, percent 3.6 alkaline phosphatase, serum 104 U/L glucose, plasma fasting 126 mg/dL albumin, serum 4.1 g/dL Estimated Glomerular Filtration Rate (calc) 52 mL/min/1.73m2 aspartate aminotransferase (SGOT), serum 15 U/L HDL cholesterol, serum 42.0 mg/dL protein, total, serum 6.8 g/dL hemoglobin A1C, blood, as % of total hemoglobin 6.6 % thyroid stimulating hormone, serum 2.83 u[iU]/mL potassium, serum 4.8 mmol/L alanine aminotransferase (SGPT), serum 23 U/L Clinical Lists Update: CMP, TSH, HbA1c, MicroAlbumin - Urinalysis microalbumin, urine, semiquantitative 2.1 mg/dL Clinical Lists Update: CMP,Chol,Trig,HgA1c - Chemistry Estimated Glomerular Filtration Rate (calc) 65 mL/min/1.73m2 albumin, serum 4.0 g/dL anion gap, serum 11 sodium, serum 139 [...] 22 mg/dL alkaline phosphatase, serum 117 U/L glucose, plasma fasting 123 mg/dL Encounters Code Encounter Date Provider Facility CPT-57851 Ofc Vst, Est Level IV 20:12:26 BLOW MOLD MACHINE OPERATOR Shayla Jimenez, DO, FACP CPT-68570 Ofc Vst, Est Level III 16:23:57 CDT Shayla Jimenez, DO, FACP CPT-83904 Ofc Vst, Est Level III 20:32:21 BLOW MOLD MACHINE OPERATOR Shayla Jimenez DO, FACP CPT-37715 Ofc Vst, Est Level IV 14:30:40 BLOW MOLD MACHINE OPERATOR Shayla Jimenez, DO, FACP CPT-07987 Ofc Vst, Est Level IV 21:36:28 CDT Shayla Jimenez, DO, FACP CPT-79842 Ofc Vst, Est Level IV 17:00:43 CDT Shayla Jimenez, DO, FACP CPT-05122 Ofc Vst, Est Level IV 16:15:28 CDT Shaylachance Hong Jimenez, DO, FACP CPT-30226 Ofc Vst, Est Level IV 13:40:25 CDT Shayla Jackeline Hong Jimenez, DO, FACP CPT-79374 Ofc Vst, Est Level IV 14:08:24 CDT Shayla Jackeline Hong Jimenez, DO, FACP CPT-77331 Ofc Vst, Est Level III 16:11:21 CDT Shaylachance Hong Jimenez, DO, FACP CPT-77254 Ofc Vst, Est Level IV 08:41:50 BLOW MOLD MACHINE OPERATOR Shaylachance Hong Tony, DO, FACP CPT-14083 Ofc Vst, Est Level III 15:21:14 CDT Shayla Jackeline Hong Tony, DO, FACP CPT-26131 Ofc Vst, Est Level V 11:09:46 CDT Shaylachance Hong Jimenez, DO, FACP CPT-80921 Ofc Vst, Est Level IV 11:38:53 CDT Shayla Jackeline Hong Tony, DO, FACP CPT-11836 Office Consult, Level IV 15:08:29 CDT Shayla Hong Tony, DO, FACP CPT-54745 Ofc Vst, Est Level III 10:32:31 CDT Shaylachance Hong Jimenez, DO, FACP CPT-86856 Ofc Vst, Est Level V 16:21:30 CDT Shayla Jackeline Mcguire S Jimenez, DO, FACP CPT-40355 Ofc Vst, Est Level III 16:34:59 BLOW MOLD MACHINE OPERATOR Shayla Mcguire S Jimenez, DO, FACP CPT-87609 Ofc Vst, Est Level IV 15:47:00 BLOW MOLD MACHINE OPERATOR Shaylachance Hong Jimenez, DO, FACP CPT-12461 Ofc Vst, Est Level IV 10:47:45 BLOW MOLD MACHINE OPERATOR Shayla Hong Jimenez, DO, FACP CPT-85845 Ofc Vst, Est Level IV 16:03:38 BLOW MOLD MACHINE OPERATOR Shayla Hong Jimenez, DO, FACP CPT-68949 Ofc Vst, Est Level V 10:34:09 BLOW MOLD MACHINE OPERATOR Shayla Hong Jimenez, DO, FACP CPT-11317 Ofc Vst, Est Level IV 15:33:57 CDT Shayla Jackeline Hong Jimenez, DO, FACP CPT-83636 Ofc Vst, Est Level IV 16:16:24 CDT Shayla Jackeline Hong Jimenez, DO, FACP CPT-85963 Ofc Vst, Est Level IV 16:08:16 BLOW MOLD MACHINE OPERATOR Shayla Hong Jimenez, DO, FACP CPT-87859 Ofc Vst, Est Level IV 10:48:11 CDT Shayla Jackeline Hong Jimenez, DO, FACP CPT-85951 Ofc Vst, Est Level IV 11:28:59 CDT Shaylachance Hong Jimenez, DO, FACP CPT-97383 Ofc Vst, Est Level IV 16:18:27 BLOW MOLD MACHINE OPERATOR Shayla Jackeline Hong Jimenez, DO, FACP CPT-49073 Ofc Vst, Est Level IV 11:20:46 BLOW MOLD MACHINE OPERATOR Shayla Jackeline Hong Jimenez, DO, FACP CPT-41722 Ofc Vst, Est Level V 13:33:16 BLOW MOLD MACHINE OPERATOR Shayla Hong Jimenez, DO, FACP CPT-34402 Ofc Vst, Est Level IV 16:07:29 CDT Shayla Jackeline Hong Tony, DO, FACP CPT-33851 Ofc Vst, Est Level IV 09:41:53 CDT Shayla Jackeline Hong Tony, DO, FACP CPT-44634 Ofc Vst, Est Level IV 16:47:11 BLOW MOLD MACHINE OPERATOR Shayla Jackeline Hong Tony, DO, FACP CPT-90195 Ofc Vst, Est Level IV 13:05:18 CDT Shayla Jackeline Hong Tony, DO, FACP CPT-04622 Ofc Vst, Est Level III 16:53:23 CDT Shayla Jackeline Mixonner Shayla Hong Tony, DO, FACP CPT-79756 Ofc Vst, Est Level IV 16:04:34 CDT Shayla Jackeline Hong Tony, DO, FACP CPT-71201 Ofc Vst, Est Level IV 21:27:13 BLOW MOLD MACHINE OPERATOR Shayla Jackeline Mixonner Shayla Hong Tony, DO, FACP CPT-58956 Ofc Vst, Est Level III 16:27:35 CDT Shayla Jackeline Mixonner Shayla Hong Tony, DO, FACP CPT-80470 Ofc Vst, Est Level IV 16:39:25 CDT Shayla Jackeline Mixonner Shayla Hong Tony, DO, FACP CPT-08572 Ofc Vst, Est Level III 16:55:35 CDT Shaylachance Jimenez [facility] [place] CPT-96170 Ofc Vst, Est Level III 16:54:43 CDT Shayla Jackeline Jimenez [facility] [place] CPT-53600 Ofc Vst, Est Level IV 09:20:28 CDT Shayla Jackeline Jimenez [facility] [place] CPT-73236 Ofc Vst, Est Level IV 16:54:13 BLOW MOLD MACHINE OPERATOR Shayla Jimenez [facility] [place] CPT-87969 Ofc Vst, Est Level III 16:37:40 CDT Shayla Jackeline Jimenez [facility] [place] CPT-93380 Ofc Vst, Est Level IV 11:44:17 CDT Shayla Jackeline Jimenez [facility] [place] CPT-48315 Ofc Vst, Est Level III 16:17:20 BLOW MOLD MACHINE OPERATOR Shayla Jackeline Mixonner [facility] [place] CPT-15009 Ofc Vst, Est Level III 17:45:48 CDT Shayla Jackeline Jimenez [facility] [place] CPT-98326 Ofc Vst, Est Level IV 09:23:42 CDT Shayla Jackeline Jimenez [facility] [place] CPT-95563 Ofc Vst, Est Level III 21:31:16 CDT Shayla Jackeline Jimenez [facility] [place] CPT-27455 Ofc Vst, Est Level II 17:28:49 BLOW MOLD MACHINE OPERATOR Shayla Jackeline Jimenez [facility] [place] CPT-39695 Ofc Vst, Est Level III 18:24:08 BLOW MOLD MACHINE OPERATOR Shayla Jackeline Jimenez [facility] [place] CPT-25091 Ofc Vst, Est Level III 17:48:50 CDT Shayla Jackeline Jimenez [facility] [place] CPT-98574 Ofc Vst, Est Level IV 19:58:07 CDT Shayla Jackeline Jimenez [facility] [place] CPT-68791 Ofc Vst, Est Level IV 17:24:24 CDT Shayla Jackeline Jimenez [facility] [place] CPT-37445 Ofc Vst, Est Level IV 18:48:08 CDT Shayla Jackeline Jimenez [facility] [place] CPT-45967 Ofc Vst, New Level IV 15:16:23 CDT Shayla Jackelineolvin Jimenez [facility] [place] Procedures Code Procedure Name Date Entry Date Standard Description CPT-42997 Preventive, Est, (40-64) 14:59:52 CDT CPT-15036 Handling of specimen from office to lab 20:32:21 BLOW MOLD MACHINE OPERATOR CPT-37665 Strep Test 20:32:21 BLOW MOLD MACHINE OPERATOR CPT-92992 Preventive, Est, (40-64) 13:09:30 CDT CPT-26284 Injection 16:39:25 CDT
--- OUTSIDE RECORDS SUMMARY | 2018-03-30 16:56 | XMS REPORT | Clinical Summary ---
Author Author User, HENRI Organization [facility] [place] Address Unknown Phone Unavailable Allergies, Adverse Reactions, [...] TREATMENT No Longer Active Shayla Jimenez NYSTATIN 541666 U/ML SUSP 5cc PO QID for 7 days NYSTATIN 65914551808 No Longer Active Shayla Jimenez OMEPRAZOLE 20 MG CPDR 1 PO daily OMEPRAZOLE 03096299898 No Longer Active Shayla Jimenez FELODIPINE ER 5 MG [id number] 1 PO DAILY FELODIPINE 95864041849 Active Shayla Jimenez AUGMENTIN 500-125 MG TAB 1 PO BID AMOXICILLIN-POT CLAVULANATE 10393158758 No Longer Active Shaylachance Jimenez COMBIVENT RESPIMAT 20-100 MCG/ACT AERS 2 puffs Q6hrs prn IPRATROPIUM- ALBUTEROL 78466846168 Active Shaylachance Jimenez ALPRAZOLAM 0.5 MG TABS 1 PO Q6hrs prn anxiety ALPRAZOLAM 75302236677 No Longer Active Shayla Jackeline Jimenez HYDROCODONE-ACETAMINOPHEN 5-325 MG TABS 1-2 PO Q4-6 hrs prn pain HYDROCODONE-ACETAMINOPHEN 36522533636 Active Shayla Jackeline Jimenez ZYRTEC 10 MG TAB 1 PO QD CETIRIZINE HCL Active Shayla Jackeline Jimenez NYSTATIN 380171 U/ML SUSP 5cc PO QID for 7 days NYSTATIN 48683440802 No Longer Active Jane Perla FOLTANX RF 3-90.314-2-35 MG CAPS 1 PO BID [id number] -B12-B6 21711327625 Active Tammy Schrichardbach FLONASE 50 MCG/ACT SUSP 2 puffs each nostril daily FLUTICASONE PROPIONATE 63317747020 Active Shaylachance Jimenez VITAMIN D 1000 UNIT TABS 1 PO Daily CHOLECALCIFEROL 28723045118 Active Shaylachance Jimenez PERFOROMIST 20 MCG/2ML NEBU 1 treatment BID FORMOTEROL FUMARATE 60109204720 No Longer Active Shaylachance Jimenez LIPITOR 20 MG TAB 1 PO QD ATORVASTATIN CALCIUM 69833903157 Active Shaylachance Jimenez GLUCOSAMINE-CHONDROITIN CAPS as directed GLUCOSAMINE- CHONDROIT-VIT C-MN 38649369568 No Longer Active Shaylachance Jimenez PROMETHAZINE HCL 25 MG SUPP 1 NJ Q6hrs prn nausea PROMETHAZINE HCL 06274885481 No Longer Active Shayla Jackeline Jimenez PROMETHAZINE HCL 25 MG TABS 1 PO Q6hrs prn nasuea PROMETHAZINE HCL 00849770428 No Longer Active Shayla Jackeline Jimenez PERCOCET 5-325 MG TAB 1 PO Q 6 hours OXYCODONE- ACETAMINOPHEN 03662951717 No Longer Active Shayla Jackeline Jimenez LOTRISONE 0.05-1 % CREAM apply to affected area on left leg BID for 2 weeks CLOTRIMAZOLE-BETAMETHASONE 90215675422 No Longer Active Shaylachance Jimenez PREDNISONE 20 MG TAB 2 pills at once for 5 days then 1 pill daily for 5 days PREDNISONE 44243726748 No Longer Active Shaylachance Jimenez ADVAIR DISKUS 100-50 MCG/DOSE MISC 1 puff BID FLUTICASONE-SALMETEROL 64840366736 No Longer Active Shaylachance Jimenez SYMBICORT 160-4.5 MCG/ACT AERO 2 puffs BID BUDESONIDE- FORMOTEROL FUMARATE 17247281065 Active Shaylachance Jimenez PREDNISONE 20 MG TAB 2 pills at once for 3 days then 1 pill daily for 3 days PREDNISONE 23184487065 No Longer Active Josi Derian PREDNISONE 20 MG TAB 2 PO DAILY x 3 days, then 1 PO DAILY x 3 days PREDNISONE 01875081065 No Longer Active Shayla Jimenez FLEXERIL 10 MG TABS 1 PO TID PRN CYCLOBENZAPRINE HCL Active Shayla Jackeline Jimenez LAMISIL 250 MG TAB 1 PO daily for 2 weeks TERBINAFINE HCL 75434131957 No Longer Active Shayla Jimenez VALIUM 2 MG TAB 1 PO 30 minutes before MRI and may repeat. 12/15 DIAZEPAM 16761515146 No Longer Active Tika Ruiz SINGULAIR 10 MG TABS 1 PO daily at night MONTELUKAST SODIUM 79016795647 Active Tammy Booth DUONEB 0.5-2.5 (3) MG/3ML SOLN 1 treatment QID prn IPRATROPIUM -ALBUTEROL Active Ryan Pace ADVAIR DISKUS 100-50 MCG/DOSE MISC 1 puff BID FLUTICASONE- SALMETEROL 93380909558 No Longer Active Shaylachance Jimenez IBUPROFEN 200 MG TAB 2 PO Q4hrs prn IBUPROFEN 35510979875 Active Shayla Jackeline Jimenez PROAIR HFA 108 (90 BASE) MCG/ACT AERS 2 puffs Q4-6hrs prn ALBUTEROL SULFATE 02151681034 Active Kathryn Reyes CLONIDINE HCL 0.1 MG TAB 1 po bid for blood pressure CLONIDINE HCL 60862680445 Active Tika Ruiz IBUPROFEN 200 MG TABS 4 PO at HS for knee pain IBUPROFEN 93643570976 No Longer Active Shayla Jackeline Jimenez ALEVE TABS 2 PO daily NAPROXEN SODIUM TABS 43658112987 No Longer Active Shaylachance Jimenez ROBITUSSIN A-C 10-100 MG/5ML SYRUP 5cc PO Q 4-6 hr prn ROBITUSSIN A-C 10-100 MG/5ML SYRUP 72036211531 No Longer Active Shaylachance Jimenez ADVAIR DISKUS 100-50 MCG/DOSE MISC 1 puff BID FLUTICASONE-SALMETEROL 64226983116 No Longer Active Shaylachance Jimenez PREDNISONE 20 MG TAB 3 daily for 2 days, 2 daily for 2 days, 1 daily for 3 days PREDNISONE 73374263572 No Longer Active Shayla Jackeline Jimenez MANPREET 180 MG TABS 1 PO daily FEXOFENADINE HCL 80547835357 No Longer Active Shayla Jackeline Jimenez LOTENSIN 40 MG TABS 1 PO daily BENAZEPRIL HCL 12095047151 Active Shaylachance Jimenez HYDROCODONE-ACETAMINOPHEN 5-500 MG TABS 1 po q 6 hrs. prn pain HYDROCODONE-ACETAMINOPHEN 08894646350 No Longer Active Shayla Jimenez TYLENOL 500 MG TAB 2 PO Qhrs prn ACETAMINOPHEN 64546552300 No Longer Active Shayla Jimenez LORTAB 5 5-500 MG TABS 1 to 2 PO Q6hrs prn ACETAMINOPHEN-HYDROCODONE 14616245121 No Longer Active Shayla Mixonner DYAZIDE 37.5-25 MG CAPS 1 PO daily TRIAMTERENE-HCTZ 79230516691 Active Shayla Jackeline Jimenez HYDROCHLOROTHIAZIDE 25 MG TABS 1 daily. HYDROCHLOROTHIAZIDE 39730603498 No Longer Active Shayla Viveros Jimenez NORVASC 5 MG TAB 1 PO QD AMLODIPINE BESYLATE 07296852309 No Longer Active Shayla Jackeline Tony Immunizations Vaccine Administration Date Value Standard [...] Estimated Glomerular Filtration Rate (calc) 59 mL/min/1.73m2 albumin, serum 3.9 g/dL cholesterol/HDL ratio, serum, percent 3.3 anion gap, [...] mg/dL carbon dioxide, venous blood 30.0 mmol/L cholesterol, serum 147 mg/dL chloride, serum 104 mmol/L calcium, serum 9.3 mg/dL urea nitrogen, blood 17 mg/dL alkaline phosphatase, serum 104 U/L glucose, plasma fasting 138 mg/dL Clinical Lists Update: CBC,CMP,FLP,HGA1C - Hematology hemoglobin, blood 12.6 g/dL hematocrit, blood 41 % platelet count 255 10*3/mm3 erythrocyte (RBC) count 4.12 10*6/mm3 leukocyte count, blood 5.6 10*3/mm3 mean corpuscular volume, RBC 99 fL red blood cell distribution width 14.8 % Clinical Lists Update: CMP,Chol,Trig,HgA1c - Chemistry aspartate aminotransferase (SGOT), serum 15 U/L Estimated Glomerular Filtration Rate (calc) 65 mL/min/1.73m2 potassium, serum 3.9 mmol/L hemoglobin A1C, blood, as % of total hemoglobin 6.7 % creatinine, serum 0.9 mg/dL carbon dioxide, venous blood 29.0 mmol/L cholesterol, serum 146 mg/dL chloride, serum 103 mmol/L calcium, serum 9.3 mg/dL urea nitrogen, blood 22 mg/dL alkaline phosphatase, serum 117 U/L albumin, serum 4.0 g/dL alanine aminotransferase (SGPT), serum 24 U/L bilirubin, serum, total 0.4 mg/dL triglyceride, serum, fasting 121 mg/dL sodium, serum 139 mmol/L anion gap, serum 11 glucose, plasma fasting 123 mg/dL protein, total, serum 6.6 g/dL Encounters Code Encounter Date Provider Facility CPT-92250 Ofc Vst, Est Level IV 20:12:26 BUILD MASTER Shayla Jimenez DO, FACP CPT-53982 Ofc Vst, Est Level III 16:23:57 CDT Shayla Jimenez DO, FACP CPT-43521 Ofc Vst, Est Level III 20:32:21 BUILD MASTER Shayla Jimenez DO, FACP CPT-66944 Ofc Vst, Est Level IV 14:30:40 BUILD MASTER Shayla Jimenez DO, FACP CPT-99905 Ofc Vst, Est Level IV 21:36:28 CDT Shayla Jimenez DO, FACP CPT-33606 Ofc Vst, Est Level IV 17:00:43 CDT Shayla Jimenez DO, FACP CPT-20041 Ofc Vst, Est Level IV 16:15:28 CDT Shaylachance Hong Jimenez, DO, FACP CPT-30096 Ofc Vst, Est Level IV 13:40:25 CDT Shayla Jackeline Hong Jimenez, DO, FACP CPT-78891 Ofc Vst, Est Level IV 14:08:24 CDT Shayla Jackeline Hong Jimenez, DO, FACP CPT-32511 Ofc Vst, Est Level III 16:11:21 CDT Shayla Jackeline Hong Jimenez, DO, FACP CPT-80260 Ofc Vst, Est Level IV 08:41:50 BUILD MASTER Shaylachance Mcguire S Tony, DO, FACP CPT-88855 Ofc Vst, Est Level III 15:21:14 CDT Shayla Jackeline Hong Tony, DO, FACP CPT-54928 Ofc Vst, Est Level V 11:09:46 CDT Shaylachance Hong Tony, DO, FACP CPT-47353 Ofc Vst, Est Level IV 11:38:53 CDT Shayla Jackeline Hong Tony, DO, FACP CPT-20409 Office Consult, Level IV 15:08:29 CDT Shaylachance Hong Tony, DO, FACP CPT-50415 Ofc Vst, Est Level III 10:32:31 CDT Shayla Jackeline Hong Jimenez, DO, FACP CPT-80349 Ofc Vst, Est Level V 16:21:30 CDT Shayla Jackeline Barryi S Jimenez, DO, FACP CPT-07464 Ofc Vst, Est Level III 16:34:59 BUILD MASTER Shayla Jackeline Barryi S Jimenez, DO, FACP CPT-98393 Ofc Vst, Est Level IV 15:47:00 BUILD MASTER Shayla Jackeline Barryi S Jimenez, DO, FACP CPT-44667 Ofc Vst, Est Level IV 10:47:45 BUILD MASTER Shayla Hong Jimenez, DO, FACP CPT-80463 Ofc Vst, Est Level IV 16:03:38 BUILD MASTER Shayla Hong Jimenez, DO, FACP CPT-26809 Ofc Vst, Est Level V 10:34:09 BUILD MASTER Shayla Jackeline Hong Jimenez, DO, FACP CPT-60308 Ofc Vst, Est Level IV 15:33:57 CDT Shayla Jackeline Hong Tony, DO, FACP CPT-25331 Ofc Vst, Est Level IV 16:16:24 CDT Shayla Jackeline Hong Tony, DO, FACP CPT-80245 Ofc Vst, Est Level IV 16:08:16 BUILD MASTER Shayla Jackeline Hong Tony, DO, FACP CPT-63771 Ofc Vst, Est Level IV 10:48:11 CDT Shayla Jackeline Hong Tony, DO, FACP CPT-82687 Ofc Vst, Est Level IV 11:28:59 CDT Shaylachance Hong Tony, DO, FACP CPT-38922 Ofc Vst, Est Level IV 16:18:27 BUILD MASTER Shayla Jackeline Hong Jimenez, DO, FACP CPT-46010 Ofc Vst, Est Level IV 11:20:46 BUILD MASTER Shayla Jackeline Hong Jimenez, DO, FACP CPT-23335 Ofc Vst, Est Level V 13:33:16 BUILD MASTER Shayla Mcguire S Jimenez, DO, FACP CPT-73346 Ofc Vst, Est Level IV 16:07:29 CDT Shayla Jackeline Hong Tony, DO, FACP CPT-62585 Ofc Vst, Est Level IV 09:41:53 CDT Shayla Jackeline Hong Tony, DO, FACP CPT-50152 Ofc Vst, Est Level IV 16:47:11 BUILD MASTER Shayla Hong Tony, DO, FACP CPT-84931 Ofc Vst, Est Level IV 13:05:18 CDT Shayla Jackeline Hong Tony, DO, FACP CPT-62912 Ofc Vst, Est Level III 16:53:23 CDT Shayla Jackeline Hong Tony, DO, FACP CPT-87104 Ofc Vst, Est Level IV 16:04:34 CDT Shayla Jackeline Hong Tony, DO, FACP CPT-80765 Ofc Vst, Est Level IV 21:27:13 BUILD MASTER Shayla Jackeline Hong Tony, DO, FACP CPT-52110 Ofc Vst, Est Level III 16:27:35 CDT Shayla Jackeline Hong Tony, DO, FACP CPT-87436 Ofc Vst, Est Level IV 16:39:25 CDT Shayla Jackeline Hong Tony, DO, FACP CPT-22304 Ofc Vst, Est Level III 16:55:35 CDT Shaylachance Jimenez [facility] CPT-59508 Ofc Vst, Est Level III 16:54:43 [address] Jackeline Jimenez [facility] [place] CPT-62327 Ofc Vst, Est Level IV 09:20:28 [address] Jackeline Jimenez [facility] [place] CPT-74547 Ofc Vst, Est Level IV 16:54:13 BUILD MASTER Shayla Jimenez [facility] CPT-19992 Ofc Vst, Est Level III 16:37:40 CDT Shayla Jackeline Jimenez [facility] [place] CPT-86135 Ofc Vst, Est Level IV 11:44:17 [address] Jackeline Jimenez [facility] [place] CPT-21831 Ofc Vst, Est Level III 16:17:20 BUILD MASTER Shayla Jackeline Mixonner [facility] [place] CPT-29742 Ofc Vst, Est Level III 17:45:48 [address] Jackeline Jimenez [facility] [place] CPT-87155 Ofc Vst, Est Level IV 09:23:42 [address] Jackeline Jimenez [facility] [place] CPT-25471 Ofc Vst, Est Level III 21:31:16 [address] Jackeline Jimenez [facility] [place] CPT-70179 Ofc Vst, Est Level II 17:28:49 BUILD MASTER Shayla Jackeline Jimenez [facility] [place] CPT-68618 Ofc Vst, Est Level III 18:24:08 BUILD MASTER Shayla Jackeline Jimenez [facility] [place] CPT-96402 Ofc Vst, Est Level III 17:48:50 [address] Jackeline Jimenez [facility] [place] CPT-80441 Ofc Vst, Est Level IV 19:58:07 [address] Jackeline Jimenez [facility] [place] CPT-32712 Ofc Vst, Est Level IV 17:24:[address] Jackeline Jimenez [facility] [place] CPT-44685 Ofc Vst, Est Level IV 18:48:08 [address] Jackeline Jimenez [facility] [place] CPT-40795 Ofc Vst, New Level IV 15:16:23 CDT [facility] Jackelineolvin Jimenez [facility] [place] Procedures Code Procedure Name Date Entry Date Standard Description CPT-62748 Preventive, Est, (40-64) 14:59:52 CDT CPT-02886 Handling of specimen from office to lab 20:32:21 BUILD MASTER CPT-28605 Strep Test 20:32:21 BUILD MASTER CPT-53103 Preventive, Est, (40-64) 13:09:30 CDT CPT-08490 Injection 16:39:25 CDT
--- OUTSIDE RECORDS SUMMARY | 2018-03-30 16:56 | XMS REPORT | Clinical Summary ---
Author Author User, HENRI Organization [facility] [place] Address Unknown Phone Unavailable Allergies, Adverse Reactions, [...] TREATMENT No Longer Active Shayla Jimenez NYSTATIN 805733 U/ML SUSP 5cc PO QID for 7 days NYSTATIN 57829405943 No Longer Active Shayla Jimenez OMEPRAZOLE 20 MG CPDR 1 PO daily OMEPRAZOLE 70303758453 No Longer Active Shayla Jimenez FELODIPINE ER 5 MG [id number] 1 PO DAILY FELODIPINE 02519425529 Active Shayla Jimenez AUGMENTIN 500-125 MG TAB 1 PO BID AMOXICILLIN-POT CLAVULANATE 40496710259 No Longer Active Shaylachance Jimenez COMBIVENT RESPIMAT 20-100 MCG/ACT AERS 2 puffs Q6hrs prn IPRATROPIUM- ALBUTEROL 60055973424 Active Shaylachance Jimenez ALPRAZOLAM 0.5 MG TABS 1 PO Q6hrs prn anxiety ALPRAZOLAM 51311044732 No Longer Active Shayla Jackeline Jimenez HYDROCODONE-ACETAMINOPHEN 5-325 MG TABS 1-2 PO Q4-6 hrs prn pain HYDROCODONE-ACETAMINOPHEN 23374138961 Active Shayla Jackeline Jimenez ZYRTEC 10 MG TAB 1 PO QD CETIRIZINE HCL Active Shayla Jackeline Jimenez NYSTATIN 142491 U/ML SUSP 5cc PO QID for 7 days NYSTATIN 17954012381 No Longer Active Jane Perla FOLTANX RF 3-90.314-2-35 MG CAPS 1 PO BID [id number] -B12-B6 08404799048 Active Tammy Schrichardbach FLONASE 50 MCG/ACT SUSP 2 puffs each nostril daily FLUTICASONE PROPIONATE 65553736412 Active Shaylachance Jimenez VITAMIN D 1000 UNIT TABS 1 PO Daily CHOLECALCIFEROL 36656429891 Active Shaylachance Jimenez PERFOROMIST 20 MCG/2ML NEBU 1 treatment BID FORMOTEROL FUMARATE 52468302548 No Longer Active Shaylachance Jimenez LIPITOR 20 MG TAB 1 PO QD ATORVASTATIN CALCIUM 03307280416 Active Shaylachance Jimenez GLUCOSAMINE-CHONDROITIN CAPS as directed GLUCOSAMINE- CHONDROIT-VIT C-MN 79778273756 No Longer Active Shaylachance Jimenez PROMETHAZINE HCL 25 MG SUPP 1 ME Q6hrs prn nausea PROMETHAZINE HCL 80316216275 No Longer Active Shayla Jackeline Jimenez PROMETHAZINE HCL 25 MG TABS 1 PO Q6hrs prn nasuea PROMETHAZINE HCL 61160485888 No Longer Active Shayla Jackeline Jimenez PERCOCET 5-325 MG TAB 1 PO Q 6 hours OXYCODONE- ACETAMINOPHEN 58659891235 No Longer Active Shayla Jackeline Jimenez LOTRISONE 0.05-1 % CREAM apply to affected area on left leg BID for 2 weeks CLOTRIMAZOLE-BETAMETHASONE 53382612001 No Longer Active Shaylachance Jimenez PREDNISONE 20 MG TAB 2 pills at once for 5 days then 1 pill daily for 5 days PREDNISONE 63277643670 No Longer Active Shaylachance Jimenez ADVAIR DISKUS 100-50 MCG/DOSE MISC 1 puff BID FLUTICASONE-SALMETEROL 73905476051 No Longer Active Shaylachance Jimenez SYMBICORT 160-4.5 MCG/ACT AERO 2 puffs BID BUDESONIDE- FORMOTEROL FUMARATE 87097833307 Active Shaylachance Jimenez PREDNISONE 20 MG TAB 2 pills at once for 3 days then 1 pill daily for 3 days PREDNISONE 13078572832 No Longer Active Josi Derian PREDNISONE 20 MG TAB 2 PO DAILY x 3 days, then 1 PO DAILY x 3 days PREDNISONE 51710851018 No Longer Active Shayla Jimenez FLEXERIL 10 MG TABS 1 PO TID PRN CYCLOBENZAPRINE HCL Active Shayla Jackeline Jimenez LAMISIL 250 MG TAB 1 PO daily for 2 weeks TERBINAFINE HCL 06203121869 No Longer Active Shayla Jimenez VALIUM 2 MG TAB 1 PO 30 minutes before MRI and may repeat. 12/15 DIAZEPAM 01406902160 No Longer Active Tika Ruiz SINGULAIR 10 MG TABS 1 PO daily at night MONTELUKAST SODIUM 43782701424 Active Tammy Booth DUONEB 0.5-2.5 (3) MG/3ML SOLN 1 treatment QID prn IPRATROPIUM -ALBUTEROL Active Ryan Pace ADVAIR DISKUS 100-50 MCG/DOSE MISC 1 puff BID FLUTICASONE- SALMETEROL 94453208345 No Longer Active Shaylachance Jimenez IBUPROFEN 200 MG TAB 2 PO Q4hrs prn IBUPROFEN 99566876347 Active Shayla Jackeline Jimenez PROAIR HFA 108 (90 BASE) MCG/ACT AERS 2 puffs Q4-6hrs prn ALBUTEROL SULFATE 29290994363 Active Kathryn Reyes CLONIDINE HCL 0.1 MG TAB 1 po bid for blood pressure CLONIDINE HCL 58549256485 Active Shaylachance Jimenez IBUPROFEN 200 MG TABS 4 PO at HS for knee pain IBUPROFEN 23463539050 No Longer Active Shayla Jackeline Jimenez ALEVE TABS 2 PO daily NAPROXEN SODIUM TABS 80442265108 No Longer Active Shaylachance Jimenez ROBITUSSIN A-C 10-100 MG/5ML SYRUP 5cc PO Q 4-6 hr prn ROBITUSSIN A-C 10-100 MG/5ML SYRUP 26619927306 No Longer Active Shaylachance Jimenez ADVAIR DISKUS 100-50 MCG/DOSE MISC 1 puff BID FLUTICASONE-SALMETEROL 81721846806 No Longer Active Shaylachance Jimenez PREDNISONE 20 MG TAB 3 daily for 2 days, 2 daily for 2 days, 1 daily for 3 days PREDNISONE 32837579859 No Longer Active Shayla Jackeline Jimenez MANPREET 180 MG TABS 1 PO daily FEXOFENADINE HCL 36566347360 No Longer Active Shaylachance Jimenez LOTENSIN 40 MG TABS 1 PO daily BENAZEPRIL HCL 01896511093 Active Shaylachance Jimenez HYDROCODONE-ACETAMINOPHEN 5-500 MG TABS 1 po q 6 hrs. prn pain HYDROCODONE-ACETAMINOPHEN 61420256429 No Longer Active Shayla Jackeline Jimenez TYLENOL 500 MG TAB 2 PO Qhrs prn ACETAMINOPHEN 37513378933 No Longer Active Shayla Jackeline Mixonner LORTAB 5 5-500 MG TABS 1 to 2 PO Q6hrs prn ACETAMINOPHEN-HYDROCODONE 66519436259 No Longer Active Shayla Jackeline Jimenez DYAZIDE 37.5-25 MG CAPS 1 PO daily TRIAMTERENE-HCTZ 86801340234 Active Shayla Jackeline Tony HYDROCHLOROTHIAZIDE 25 MG TABS 1 daily. HYDROCHLOROTHIAZIDE 26693375248 No Longer Active Shayla Jackeline Tony NORVASC 5 MG TAB 1 PO QD AMLODIPINE BESYLATE 53696753608 No Longer Active Shaylachance Cortese Tony Immunizations [...] mg/dL Encounters Code Encounter Date Provider Facility CPT-37186 Ofc Vst, Est Level IV 20:12:26 [employer]STER [employer] Shayla Jimenez, DO, FACP CPT-13425 Ofc Vst, Est Level III 16:23:57 CDT Shayla Jimenez, DO, FACP CPT-85800 Ofc Vst, Est Level III 20:32:21 [employer] Shayla Jimenez DO, FACP CPT-93629 Ofc Vst, Est Level IV 14:30:40 [employer] Shayla Jimenez, DO, FACP CPT-82329 Ofc Vst, Est Level IV 21:36:28 CDT Shayla Jimenez, DO, FACP CPT-84157 Ofc Vst, Est Level IV 17:00:43 CDT Shayla Jimenez, DO, FACP CPT-04214 Ofc Vst, Est Level IV 16:15:28 CDT Shaylachance Hong Jimenez, DO, FACP CPT-43133 Ofc Vst, Est Level IV 13:40:25 CDT Shayla Jackeline Hong Jimenez, DO, FACP CPT-00712 Ofc Vst, Est Level IV 14:08:24 CDT Shayla Jackeline Hong Jimenez, DO, FACP CPT-57488 Ofc Vst, Est Level III 16:11:21 CDT Shaylachance Hong Jimenez, DO, FACP CPT-33785 Ofc Vst, Est Level IV 08:41:50 [employer] Shaylachance Hong Tony, DO, FACP CPT-53988 Ofc Vst, Est Level III 15:21:14 CDT Shayla Jackeline Hong Tony, DO, FACP CPT-57131 Ofc Vst, Est Level V 11:09:46 CDT Shaylachance Hong Jimenez, DO, FACP CPT-57511 Ofc Vst, Est Level IV 11:38:53 CDT Shayla Jackeline Hong Tony, DO, FACP CPT-28408 Office Consult, Level IV 15:08:29 CDT Shayla Hong Tony, DO, FACP CPT-10630 Ofc Vst, Est Level III 10:32:31 CDT Shaylachance Hong Jimenez, DO, FACP CPT-81247 Ofc Vst, Est Level V 16:21:30 CDT Shayla Jackeline Mcguire S Jimenez, DO, FACP CPT-60053 Ofc Vst, Est Level III 16:34:59 [employer] Shayla Mcguire S Jimenez, DO, FACP CPT-29407 Ofc Vst, Est Level IV 15:47:00 [employer] Shaylachance Hong Jimenez, DO, FACP CPT-35190 Ofc Vst, Est Level IV 10:47:45 [employer] Shayla Hong Jimenez, DO, FACP CPT-57584 Ofc Vst, Est Level IV 16:03:38 [employer] Shayla Hong Jimenez, DO, FACP CPT-51880 Ofc Vst, Est Level V 10:34:09 [employer] Shayla Hong Jimenez, DO, FACP CPT-77885 Ofc Vst, Est Level IV 15:33:57 CDT Shayla Jackeline Hong Jimenez, DO, FACP CPT-11652 Ofc Vst, Est Level IV 16:16:24 CDT Shayla Jackeline Hong Jimenez, DO, FACP CPT-62109 Ofc Vst, Est Level IV 16:08:16 [employer] Shayla Hong Jimenez, DO, FACP CPT-98651 Ofc Vst, Est Level IV 10:48:11 CDT Shayla Jackeline Hong Jimenez, DO, FACP CPT-49863 Ofc Vst, Est Level IV 11:28:59 CDT Shaylachance Hong Jimenez, DO, FACP CPT-98681 Ofc Vst, Est Level IV 16:18:27 [employer] Shayla Jackeline Hong Jimenez, DO, FACP CPT-48625 Ofc Vst, Est Level IV 11:20:46 [employer] Shayla Jackeline Hong Jimenez, DO, FACP CPT-74535 Ofc Vst, Est Level V 13:33:16 [employer] Shayla Hong Jimenez, DO, FACP CPT-62665 Ofc Vst, Est Level IV 16:07:29 CDT Shayla Jackeline Hong Tony, DO, FACP CPT-52361 Ofc Vst, Est Level IV 09:41:53 CDT Shayla Jackeline Hong Tony, DO, FACP CPT-62617 Ofc Vst, Est Level IV 16:47:11 [employer] Shayla Jackeline Hong Tony, DO, FACP CPT-58150 Ofc Vst, Est Level IV 13:05:18 CDT Shayla Jackeline Hong Tony, DO, FACP CPT-50852 Ofc Vst, Est Level III 16:53:23 CDT Shayla Jackeline Mixonner Shayla Hong Tony, DO, FACP CPT-01487 Ofc Vst, Est Level IV 16:04:34 CDT Shayla Jackeline Hong Tony, DO, FACP CPT-26815 Ofc Vst, Est Level IV 21:27:13 PASTER [employer] Shayla Jackeline Mixonner Shayla Hong Tony, DO, FACP CPT-87679 Ofc Vst, Est Level III 16:27:35 CDT Shayla Jackeline Mixonner Shayla Hong Tony, DO, FACP CPT-28521 Ofc Vst, Est Level IV 16:39:25 CDT Shayla Jackeline Mixonner Shayla Hong Tony, DO, FACP CPT-40135 Ofc Vst, Est Level III 16:55:35 CDT Shaylachance Jimenez [facility] CPT-19543 Ofc Vst, Est Level III 16:54:43 CDT Shayla Jackeline Jimenez [facility] CPT-75932 Ofc Vst, Est Level IV 09:20:28 CDT Shayla Jackeline Jimenez [facility] CPT-60907 Ofc Vst, Est Level IV 16:54:13 PASTER [employer] Shayla Jimenez [facility] CPT-02186 Ofc Vst, Est Level III 16:37:40 CDT Shayla Jackeline Jimenez [facility] CPT-48599 Ofc Vst, Est Level IV 11:44:17 CDT Shayla Jackeline Jimenez [facility] CPT-23412 Ofc Vst, Est Level III 16:17:20 [employer]STER [employer] Shayla Jackeline Mixonner [facility] CPT-99981 Ofc Vst, Est Level III 17:45:48 CDT Shayla Jackeline Jimenez [facility] CPT-23268 Ofc Vst, Est Level IV 09:23:42 CDT Shayla Jackeline Jimenez [facility] CPT-31052 Ofc Vst, Est Level III 21:31:16 CDT Shayla Jackeline Jimenez [facility] CPT-13519 Ofc Vst, Est Level II 17:28:49 [employer] Shayla Jackeline Jimenez [facility] CPT-05024 Ofc Vst, Est Level III 18:24:08 [employer] Shayla Jackeline Jimenez [facility] CPT-89519 Ofc Vst, Est Level III 17:48:50 CDT Shayla Jackeline Jimenez [facility] CPT-67479 Ofc Vst, Est Level IV 19:58:07 CDT Shayla Jackeline Jimenez [facility] CPT-09842 Ofc Vst, Est Level IV 17:24:24 CDT Shayla Jackeline Jimenez [facility] CPT-07149 Ofc Vst, Est Level IV 18:48:08 CDT Shayla Jackeline Jimenez [facility] CPT-76191 Ofc Vst, New Level IV 15:16:23 CDT Shayla Jackelineolvin Jimenez [facility] Procedures Code Procedure Name Date Entry Date Standard Description CPT-51811 Preventive, Est, (40-64) 14:59:52 CDT CPT-79367 Handling of specimen from office to lab 20:32:21 PA[employer] CPT-18669 Strep Test 20:32:21 PA[employer] CPT-45005 Preventive, Est, (40-64) 13:09:30 CDT CPT-85961 Injection 16:39:25 CDT
--- OUTSIDE RECORDS SUMMARY | 2018-03-30 16:57 | XMS REPORT | Clinical Summary ---
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 PREDNISONE 48344028059 Active Shayla Jimenez RACEMIC EPINEPHRINE 2.25% NEBULIZER TREATMENT 1 treatment Q4hrs prn stridor RACEMIC EPINEPHRINE 2.25% NEBULIZER TREATMENT No Longer Active Shaylachance Jimenez NYSTATIN 332483 U/ML SUSP 5cc PO QID for 7 days NYSTATIN 70186918425 No Longer Active Shayla Jackeline Jimenez OMEPRAZOLE 20 MG CPDR 1 PO daily OMEPRAZOLE 26774581596 No Longer Active Shaylachance Jimenez FELODIPINE ER 5 MG [id number] 1 PO DAILY FELODIPINE 65368515229 Active Shayla Jackeline Jimenez AUGMENTIN 500-125 MG TAB 1 PO BID AMOXICILLIN-POT CLAVULANATE 10759818279 No Longer Active Shaylachance Jimenez COMBIVENT RESPIMAT 20-100 MCG/ACT AERS 2 puffs Q6hrs prn IPRATROPIUM- ALBUTEROL 97657009172 Active Shaylachance Jimenez ALPRAZOLAM 0.5 MG TABS 1 PO Q6hrs prn anxiety ALPRAZOLAM 80909561008 No Longer Active Shaylachance Jimenez HYDROCODONE-ACETAMINOPHEN 5-325 MG TABS 1-2 PO Q4-6 hrs prn pain HYDROCODONE-ACETAMINOPHEN 57540439210 Active Shaylachance Jimenez ZYRTEC 10 MG TAB 1 PO QD CETIRIZINE HCL Active Shaylachance Cortese Tony NYSTATIN 556550 U/ML SUSP 5cc PO QID for 7 days NYSTATIN 86935610885 No Longer Active Jane Duncan FOLTANX RF 3-90.314-2-35 MG CAPS 1 PO BID A-[id number] -B12-B6 21535997111 Active Tika Betis FLONASE 50 MCG/ACT SUSP 2 puffs each nostril daily FLUTICASONE PROPIONATE 95344849024 Active Shaylachance Jimenez VITAMIN D 1000 UNIT TABS 1 PO Daily CHOLECALCIFEROL 23672547766 Active Shaylachance Jimenez PERFOROMIST 20 MCG/2ML NEBU 1 treatment BID FORMOTEROL FUMARATE 03575788014 No Longer Active Shayla Jackeline Jimenez LIPITOR 20 MG TAB 1 PO QD ATORVASTATIN CALCIUM 71808057532 Active Shayla Jackeline Jimenez GLUCOSAMINE-CHONDROITIN CAPS as directed GLUCOSAMINE- CHONDROIT-VIT C-MN 99708624574 No Longer Active Shaylachance Jimenez PROMETHAZINE HCL 25 MG SUPP 1 NH Q6hrs prn nausea PROMETHAZINE HCL 70164523883 No Longer Active Shayla Jackeline Jimenez PROMETHAZINE HCL 25 MG TABS 1 PO Q6hrs prn nasuea PROMETHAZINE HCL 45369917364 No Longer Active Shaylachance Jimenez PERCOCET 5-325 MG TAB 1 PO Q 6 hours OXYCODONE- ACETAMINOPHEN 05039301039 No Longer Active Shaylachance Jimenez LOTRISONE 0.05-1 % CREAM apply to affected area on left leg BID for 2 weeks CLOTRIMAZOLE-BETAMETHASONE 07211193736 No Longer Active Shaylachance Jimenez PREDNISONE 20 MG TAB 2 pills at once for 5 days then 1 pill daily for 5 days PREDNISONE 77211321412 No Longer Active Shayla Jimenez ADVAIR DISKUS 100-50 MCG/DOSE MISC 1 puff BID FLUTICASONE-SALMETEROL 30346896355 No Longer Active Shaylachance Jimenez SYMBICORT 160-4.5 MCG/ACT AERO 2 puffs BID BUDESONIDE- FORMOTEROL FUMARATE 01741786422 Active Shaylachance Jimenez PREDNISONE 20 MG TAB 2 pills at once for 3 days then 1 pill daily for 3 days PREDNISONE 86001647434 No Longer Active Josi Menard PREDNISONE 20 MG TAB 2 PO DAILY x 3 days, then 1 PO DAILY x 3 days PREDNISONE 70073332647 No Longer Active Shaylachance Jimenez FLEXERIL 10 MG TABS 1 PO TID PRN CYCLOBENZAPRINE HCL Active Tika Ruiz LAMISIL 250 MG TAB 1 PO daily for 2 weeks TERBINAFINE HCL 20394999611 No Longer Active Shayla Jimenez VALIUM 2 MG TAB 1 PO 30 minutes before MRI and may repeat. 12/15 DIAZEPAM 39848355569 No Longer Active Tika Ruiz SINGULAIR 10 MG TABS 1 PO daily at night MONTELUKAST SODIUM 05964370055 Active Tika Ruiz DUONEB 0.5-2.5 (3) MG/3ML SOLN 1 treatment QID prn IPRATROPIUM -ALBUTEROL Active Ryan Sanjeev ADVAIR DISKUS 100-50 MCG/DOSE MISC 1 puff BID FLUTICASONE- SALMETEROL 64200113225 No Longer Active Shayla Jimenez IBUPROFEN 200 MG TAB 2 PO Q4hrs prn IBUPROFEN 57886632256 Active Shaylachance Jimenez PROAIR HFA 108 (90 BASE) MCG/ACT AERS 2 puffs Q4-6hrs prn ALBUTEROL SULFATE 49230755973 Active Kathryn Reyes CLONIDINE HCL 0.1 MG TAB 1 po bid for blood pressure CLONIDINE HCL 21076471243 Active Tika Ruiz IBUPROFEN 200 MG TABS 4 PO at HS for knee pain IBUPROFEN 98387756132 No Longer Active Shayla Jimenez ALEVE TABS 2 PO daily NAPROXEN SODIUM TABS 69690443055 No Longer Active Shayla Jimenez ROBITUSSIN A-C 10-100 MG/5ML SYRUP 5cc PO Q 4-6 hr prn ROBITUSSIN A-C 10-100 MG/5ML SYRUP 96341067889 No Longer Active Shayla Jimenez ADVAIR DISKUS 100-50 MCG/DOSE MISC 1 puff BID FLUTICASONE-SALMETEROL 98776578833 No Longer Active Shayla Jimenez PREDNISONE 20 MG TAB 3 daily for 2 days, 2 daily for 2 days, 1 daily for 3 days PREDNISONE 34532768140 No Longer Active Shayla Jimenez MANPREET 180 MG TABS 1 PO daily FEXOFENADINE HCL 36599557216 No Longer Active Shaylachance Jimenez LOTENSIN 40 MG TABS 1 PO daily BENAZEPRIL HCL 04963808338 Active Shayla Jimenez HYDROCODONE-ACETAMINOPHEN 5-500 MG TABS 1 po q 6 hrs. prn pain HYDROCODONE-ACETAMINOPHEN 10793808610 No Longer Active Shayla Jimenez TYLENOL 500 MG TAB 2 PO Qhrs prn ACETAMINOPHEN 20713680215 No Longer Active Shayla Jimenez LORTAB 5 5-500 MG TABS 1 to 2 PO Q6hrs prn ACETAMINOPHEN-HYDROCODONE 62839976421 No Longer Active Shayla Jimenez DYAZIDE 37.5-25 MG CAPS 1 PO daily TRIAMTERENE-HCTZ 63949310954 Active Shayla Jimenez HYDROCHLOROTHIAZIDE 25 MG TABS 1 daily. HYDROCHLOROTHIAZIDE 84234367670 No Longer Active Shayla Jimenez NORVASC 5 MG TAB 1 PO QD AMLODIPINE BESYLATE 32794898878 No Longer Active Shayla Jimenez Immunizations Vaccine Administration Date Value Standard Description Influenza vaccine given done influenza virus vaccine, unspecified formulation Vital Signs Date Name Value Unit Range Description blood pressure, diastolic - 8462-4 74 mm[Hg] [...] 123 mg/dL protein, total, serum 6.6 g/dL Clinical Lists Update: CMP,FLP,TSH,HGA1C,Microalbumin - Chemistry [...] mg/dL Encounters Code Encounter Date Provider Facility CPT-71116 Ofc Vst, Est Level IV 16:53:10 CDT Shayla Jimenez DO, FACP CPT-68376 Ofc Vst, Est Level III 16:04:12 CDT Shaylachance Hong Jimenez, DO, FACP CPT-03568 Ofc Vst, Est Level IV 20:12:26 [employer] Shayla Jackeline Hong Jimenez, DO, FACP CPT-55934 Ofc Vst, Est Level III 16:23:57 CDT Shayla Jackeline Hong Jimenez, DO, FACP CPT-25415 Ofc Vst, Est Level III 20:32:21 [employer] Shayla Jackeline Hong Jimenez, DO, FACP CPT-53144 Ofc Vst, Est Level IV 14:30:40 [employer] Shayla Hong Jimenez, DO, FACP CPT-62779 Ofc Vst, Est Level IV 21:36:28 CDT Shayla Jackeline Hong Tony, DO, FACP CPT-20035 Ofc Vst, Est Level IV 17:00:43 CDT Shaylachance Hong Tony, DO, FACP CPT-39282 Ofc Vst, Est Level IV 16:15:28 CDT Shayla Jackeline Hong Jimenez, DO, FACP CPT-52044 Ofc Vst, Est Level IV 13:40:25 CDT Shayla Jackeline Hong Tony, DO, FACP CPT-64330 Ofc Vst, Est Level IV 14:08:24 CDT Shayla Jackeline Hong Jimenez, DO, FACP CPT-07017 Ofc Vst, Est Level III 16:11:21 CDT Shayla Jackeline Hong Jimenez, DO, FACP CPT-23298 Ofc Vst, Est Level IV 08:41:50 [employer] Shayla Jackeline Hong Tony, DO, FACP CPT-26901 Ofc Vst, Est Level III 15:21:14 CDT Shayla Hong Jimenez, DO, FACP CPT-00950 Ofc Vst, Est Level V 11:09:46 CDT Shayla Jackeline Hong Jimenez, DO, FACP CPT-23135 Ofc Vst, Est Level IV 11:38:53 CDT Shaylachance Hong Tony, DO, FACP CPT-15260 Office Consult, Level IV 15:08:29 CDT Shaylachance Hong Jimenez, DO, FACP CPT-58276 Ofc Vst, Est Level III 10:32:31 CDT Shaylachance Hong Jimenez, DO, FACP CPT-30367 Ofc Vst, Est Level V 16:21:30 CDT Shaylachance Hong Tony, DO, FACP CPT-22503 Ofc Vst, Est Level III 16:34:59 [employer] Shayla Hong Jimeenz, DO, FACP CPT-80810 Ofc Vst, Est Level IV 15:47:00 [employer] Shayla Hong Jimenez, DO, FACP CPT-44052 Ofc Vst, Est Level IV 10:47:45 [employer] Shayla Hong Jimenez, DO, FACP CPT-44689 Ofc Vst, Est Level IV 16:03:38 [employer] Shayla Hong Jimenez, DO, FACP CPT-71510 Ofc Vst, Est Level V 10:34:09 [employer] Shayla Hong Jimenez, DO, FACP CPT-87988 Ofc Vst, Est Level IV 15:33:57 CDT Shayla Hong Jimenez, DO, FACP CPT-37877 Ofc Vst, Est Level IV 16:16:24 CDT Shaylachance Hong Jimenez, DO, FACP CPT-73042 Ofc Vst, Est Level IV 16:08:16 [employer] Shaylachance Hong Jimenez, DO, FACP CPT-14248 Ofc Vst, Est Level IV 10:48:11 CDT Shayla Jackeline Hong Jimenez, DO, FACP CPT-60740 Ofc Vst, Est Level IV 11:28:59 CDT Shayla Jackeline Hong Jimenez, DO, FACP CPT-82015 Ofc Vst, Est Level IV 16:18:27 [employer] Shayla Jackeline Hong Jimenez, DO, FACP CPT-36015 Ofc Vst, Est Level IV 11:20:46 [employer] Shayla Hong Jimenez, DO, FACP CPT-92551 Ofc Vst, Est Level V 13:33:16 [employer] Shayla Jackeline Hong Jimenez, DO, FACP CPT-03187 Ofc Vst, Est Level IV 16:07:29 CDT Shayla Jackeline Hong Jimenez, DO, FACP CPT-29017 Ofc Vst, Est Level IV 09:41:53 CDT Shaylachance Hong Jimenez, DO, FACP CPT-76595 Ofc Vst, Est Level IV 16:47:11 [employer] Shayla Jackeline Hong Jimenez, DO, FACP CPT-37381 Ofc Vst, Est Level IV 13:05:18 CDT Shayla Jackeline Hong Jimenez, DO, FACP CPT-38285 Ofc Vst, Est Level III 16:53:23 CDT Shayla Jackeline Mcguire S Jimenez, DO, FACP CPT-79899 Ofc Vst, Est Level IV 16:04:34 CDT Shayla Jackeline Hong Tony, DO, FACP CPT-79816 Ofc Vst, Est Level IV 21:27:13 [employer] Shayla Jackeline Barryi Gely Jimenez, DO, FACP CPT-23202 Ofc Vst, Est Level III 16:27:35 CDT Shayla Jackeline Barryi S Tony, DO, FACP CPT-73377 Ofc Vst, Est Level IV 16:39:25 CDT Shayla Jackeline Barryi Gely Jimenez, DO, FACP CPT-89801 Ofc Vst, Est Level III 16:55:35 CDT Shayla Jackeline Jimenez [facility] [place] CPT-94161 Ofc Vst, Est Level III 16:54:43 CDT Shayla Jackeline Jimenez [facility] [place] CPT-78910 Ofc Vst, Est Level IV 09:20:28 CDT Shayla Jackeline Jimenez [facility] [place] CPT-49232 Ofc Vst, Est Level IV 16:54:13 [employer] Shayla Jackeline Jimenez [facility] [place] CPT-57430 Ofc Vst, Est Level III 16:37:40 CDT Shayla Jackeline Jimenez [facility] [place] CPT-13166 Ofc Vst, Est Level IV 11:44:17 CDT Shayla Jackeline Jimenez [facility] [place] CPT-86672 Ofc Vst, Est Level III 16:17:20 [employer] Shayla Jimenez [facility] [place] CPT-17663 Ofc Vst, Est Level III 17:45:48 CDT Shayla Jackeline Jimenez [facility] [place] CPT-91332 Ofc Vst, Est Level IV 09:23:42 CDT Shayla Jackeline Jimenez [facility] [place] CPT-77441 Ofc Vst, Est Level III 21:31:16 CDT Shayla Jackeline Jimenez [facility] [place] CPT-22111 Ofc Vst, Est Level II 17:28:49 [employer] Shayla Jackeline Jimenez [facility] [place] CPT-82163 Ofc Vst, Est Level III 18:24:08 [employer] [facility] Jackeline Jmienez [facility] [place] CPT-96445 Ofc Vst, Est Level III 17:48:50 CDT [facility] Jackeline Jimenez [facility] [place] CPT-11389 Ofc Vst, Est Level IV 19:58:07 CDT [facility] Jackeline Jimenez [facility] [place] CPT-91006 Ofc Vst, Est Level IV 17:24:24 CDT Shayla Jackeline Jimenez [facility] [place] CPT-95312 Ofc Vst, Est Level IV 18:48:08 CDT [facility] Jackeline Jimenez [facility] [place] CPT-38171 Ofc Vst, New Level IV 15:16:23 CDT [facility] Jackeline Jimenez [facility] [place] Procedures Code Procedure Name Date Entry Date Standard Description CPT-88259 Preventive, Est, (40-64) 14:59:52 CDT CPT-21263 Handling of specimen from office to lab 20:32:21 [employer] CPT-72055 Strep Test 20:32:21 [employer]IDE [employer]ER CPT-46748 Preventive, Est, (40-64) 13:09:30 CDT CPT-95232 Injection 16:39:25 CDT
--- OUTSIDE RECORDS SUMMARY | 2018-03-30 16:58 | XMS REPORT | Clinical Summary ---
Author Author User, HENRI Organization [facility] [place] Address Unknown Phone Unavailable Allergies, Adverse Reactions, [...] TREATMENT No Longer Active Shayla Jimenez NYSTATIN 210924 U/ML SUSP 5cc PO QID for 7 days NYSTATIN 29876658255 No Longer Active Shayla Jimenez OMEPRAZOLE 20 MG CPDR 1 PO daily OMEPRAZOLE 59604305466 No Longer Active Shayla Jimenez FELODIPINE ER 5 MG [id number] 1 PO DAILY FELODIPINE 49987837376 Active Shayla Jimenez AUGMENTIN 500-125 MG TAB 1 PO BID AMOXICILLIN-POT CLAVULANATE 49053303941 No Longer Active Shaylachance Jimenez COMBIVENT RESPIMAT 20-100 MCG/ACT AERS 2 puffs Q6hrs prn IPRATROPIUM- ALBUTEROL 12101747531 Active Shaylachance Jimenez ALPRAZOLAM 0.5 MG TABS 1 PO Q6hrs prn anxiety ALPRAZOLAM 41540331763 No Longer Active Shayla Jackeline Jimenez HYDROCODONE-ACETAMINOPHEN 5-325 MG TABS 1-2 PO Q4-6 hrs prn pain HYDROCODONE-ACETAMINOPHEN 59303330012 Active Shayla Jackeline Jimenez ZYRTEC 10 MG TAB 1 PO QD CETIRIZINE HCL Active Shayla Jackeline Jimenez NYSTATIN 911468 U/ML SUSP 5cc PO QID for 7 days NYSTATIN 80256367340 No Longer Active Jane Perla FOLTANX RF 3-90.314-2-35 MG CAPS 1 PO BID Y-GZSEINKYTITN-NXEPK -B12-B6 92362576665 Active Tika Betis FLONASE 50 MCG/ACT SUSP 2 puffs each nostril daily FLUTICASONE PROPIONATE 86776894217 Active Shaylachance Jimenez VITAMIN D 1000 UNIT TABS 1 PO Daily CHOLECALCIFEROL 01884504741 Active Shayla Jackeline Jimenez PERFOROMIST 20 MCG/2ML NEBU 1 treatment BID FORMOTEROL FUMARATE 09622060233 No Longer Active Shayla Jackeline Jimenez LIPITOR 20 MG TAB 1 PO QD ATORVASTATIN CALCIUM 44015512688 Active Shaylachance Jimenez GLUCOSAMINE-CHONDROITIN CAPS as directed GLUCOSAMINE- CHONDROIT-VIT C-MN 12579113277 No Longer Active Shaylachance Jimenez PROMETHAZINE HCL 25 MG SUPP 1 GA Q6hrs prn nausea PROMETHAZINE HCL 10141194706 No Longer Active Shayla Jackeline Jimenez PROMETHAZINE HCL 25 MG TABS 1 PO Q6hrs prn nasuea PROMETHAZINE HCL 39831307979 No Longer Active Shaylachance Jimenez PERCOCET 5-325 MG TAB 1 PO Q 6 hours OXYCODONE- ACETAMINOPHEN 55782848223 No Longer Active Shaylachance Jimenez LOTRISONE 0.05-1 % CREAM apply to affected area on left leg BID for 2 weeks CLOTRIMAZOLE-BETAMETHASONE 74714639483 No Longer Active Shayla Jimenez PREDNISONE 20 MG TAB 2 pills at once for 5 days then 1 pill daily for 5 days PREDNISONE 90629789460 No Longer Active Shayla Jimenez ADVAIR DISKUS 100-50 MCG/DOSE MISC 1 puff BID FLUTICASONE-SALMETEROL 37563432806 No Longer Active Shayla Jimenez SYMBICORT 160-4.5 MCG/ACT AERO 2 puffs BID BUDESONIDE- FORMOTEROL FUMARATE 21190894540 Active Shayla Jimenez PREDNISONE 20 MG TAB 2 pills at once for 3 days then 1 pill daily for 3 days PREDNISONE 97882451988 No Longer Active Josi [place] PREDNISONE 20 MG TAB 2 PO DAILY x 3 days, then 1 PO DAILY x 3 days PREDNISONE 56917724059 No Longer Active Shayla Jimenez FLEXERIL 10 MG TABS 1 PO TID PRN CYCLOBENZAPRINE HCL Active Tika Ruiz LAMISIL 250 MG TAB 1 PO daily for 2 weeks TERBINAFINE HCL 12554469584 No Longer Active Shayla Jimenez VALIUM 2 MG TAB 1 PO 30 minutes before MRI and may repeat. 12/15 DIAZEPAM 29929912028 No Longer Active Tika Ruiz SINGULAIR 10 MG TABS 1 PO daily at night MONTELUKAST SODIUM 18639719876 Active Tika Ruiz DUONEB 0.5-2.5 (3) MG/3ML SOLN 1 treatment QID prn IPRATROPIUM -ALBUTEROL Active Ryan Pace ADVAIR DISKUS 100-50 MCG/DOSE MISC 1 puff BID FLUTICASONE- SALMETEROL 91104409119 No Longer Active Shaylachance Jimenez IBUPROFEN 200 MG TAB 2 PO Q4hrs prn IBUPROFEN 87443269674 Active Shayla Jackeline Jimenez PROAIR HFA 108 (90 BASE) MCG/ACT AERS 2 puffs Q4-6hrs prn ALBUTEROL SULFATE 36323502767 Active Kathryn Reyes CLONIDINE HCL 0.1 MG TAB 1 po bid for blood pressure CLONIDINE HCL 30982680973 Active Tika Ruiz IBUPROFEN 200 MG TABS 4 PO at HS for knee pain IBUPROFEN 69219852450 No Longer Active Shayla Jackeline Jimenez ALEVE TABS 2 PO daily NAPROXEN SODIUM TABS 38896860980 No Longer Active Shaylachance Jimenez ROBITUSSIN A-C 10-100 MG/5ML SYRUP 5cc PO Q 4-6 hr prn ROBITUSSIN A-C 10-100 MG/5ML SYRUP 91582070578 No Longer Active Shaylachance Jimenez ADVAIR DISKUS 100-50 MCG/DOSE MISC 1 puff BID FLUTICASONE-SALMETEROL 49053767575 No Longer Active Shaylachance Jimenez PREDNISONE 20 MG TAB 3 daily for 2 days, 2 daily for 2 days, 1 daily for 3 days PREDNISONE 39058819584 No Longer Active Shaylachance Jimenez MANPREET 180 MG TABS 1 PO daily FEXOFENADINE HCL 41737422681 No Longer Active Shaylachance Jimenez LOTENSIN 40 MG TABS 1 PO daily BENAZEPRIL HCL 60890166357 Active Shaylachance Jimenez HYDROCODONE-ACETAMINOPHEN 5-500 MG TABS 1 po q 6 hrs. prn pain HYDROCODONE-ACETAMINOPHEN 79227222482 No Longer Active Shayla Viveros Jimenez TYLENOL 500 MG TAB 2 PO Qhrs prn ACETAMINOPHEN 44364435351 No Longer Active Shayla Viveros Jimenez LORTAB 5 5-500 MG TABS 1 to 2 PO Q6hrs prn ACETAMINOPHEN-HYDROCODONE 80314212808 No Longer Active Shayla Viveros Jimenez DYAZIDE 37.5-25 MG CAPS 1 PO daily TRIAMTERENE-HCTZ 44742992412 Active Shayla Jackeline Tony HYDROCHLOROTHIAZIDE 25 MG TABS 1 daily. HYDROCHLOROTHIAZIDE 35715239430 No Longer Active Shayla Viveros Tony NORVASC 5 MG TAB 1 PO QD AMLODIPINE BESYLATE 71827696447 No Longer Active Shaylachance Cortese Tony Immunizations [...] mg/dL Encounters Code Encounter Date Provider Facility CPT-51802 Ofc Vst, Est Level IV 20:12:26 [employer] Shayla Jimenez, DO, FACP CPT-29467 Ofc Vst, Est Level III 16:23:57 CDT Shayla Jimenez, DO, FACP CPT-97282 Ofc Vst, Est Level III 20:32:21 [employer] Shayla Jimenez, DO, FACP CPT-57976 Ofc Vst, Est Level IV 14:30:40 [employer] Shayla Jimenez, DO, FACP CPT-42720 Ofc Vst, Est Level IV 21:36:28 CDT Shayla Jimenez, DO, FACP CPT-62496 Ofc Vst, Est Level IV 17:00:43 CDT Shaylachance Jimenez, DO, FACP CPT-16143 Ofc Vst, Est Level IV 16:15:28 CDT Shayla Jimenez, DO, FACP CPT-23478 Ofc Vst, Est Level IV 13:40:25 CDT Shayla Jimenez, DO, FACP CPT-31196 Ofc Vst, Est Level IV 14:08:24 CDT Shayla Jimenez, DO, FACP CPT-74533 Ofc Vst, Est Level III 16:11:21 CDT Shaylachance Hong Tony, DO, FACP CPT-29783 Ofc Vst, Est Level IV 08:41:50 [employer] Shayla Hong Jimenez, DO, FACP CPT-95761 Ofc Vst, Est Level III 15:21:14 CDT Shayla Jackeline Hong Tony, DO, FACP CPT-74793 Ofc Vst, Est Level V 11:09:46 CDT Shayla Jackeline Hong Tony, DO, FACP CPT-27433 Ofc Vst, Est Level IV 11:38:53 CDT Shaylachance Hong Tony, DO, FACP CPT-30710 Office Consult, Level IV 15:08:29 CDT Shaylachance Hong Tony, DO, FACP CPT-87564 Ofc Vst, Est Level III 10:32:31 CDT Shaylachance Hong Tony, DO, FACP CPT-30934 Ofc Vst, Est Level V 16:21:30 CDT Shaylachance Hong Tony, DO, FACP CPT-38175 Ofc Vst, Est Level III 16:34:59 [employer] Shayla Hong Jimenez, DO, FACP CPT-64574 Ofc Vst, Est Level IV 15:47:00 [employer] Shayla Hong Jimenez, DO, FACP CPT-89185 Ofc Vst, Est Level IV 10:47:45 [employer] Shayla Hong Jimenez, DO, FACP CPT-09943 Ofc Vst, Est Level IV 16:03:38 [employer] Shayla Hong Tony, DO, FACP CPT-38993 Ofc Vst, Est Level V 10:34:09 [employer] Shayla Hong Jimenez, DO, FACP CPT-08399 Ofc Vst, Est Level IV 15:33:57 CDT Shayla Hong Jimenez, DO, FACP CPT-84452 Ofc Vst, Est Level IV 16:16:24 CDT Shayla Hong Jimenez, DO, FACP CPT-37615 Ofc Vst, Est Level IV 16:08:16 [employer] Shayla Hong Jimenez, DO, FACP CPT-30762 Ofc Vst, Est Level IV 10:48:11 CDT Shayla Hong Jimenez, DO, FACP CPT-06000 Ofc Vst, Est Level IV 11:28:59 CDT Shayla Hong Jimenez, DO, FACP CPT-58665 Ofc Vst, Est Level IV 16:18:27 [employer] Shayla Hong Jimenez, DO, FACP CPT-72388 Ofc Vst, Est Level IV 11:20:46 [employer] Shayla Hong Jimenez, DO, FACP CPT-88048 Ofc Vst, Est Level V 13:33:16 [employer] Shayla Hong Jimenez, DO, FACP CPT-00363 Ofc Vst, Est Level IV 16:07:29 CDT Shaylachance Hong Jimenez, DO, FACP CPT-00956 Ofc Vst, Est Level IV 09:41:53 CDT Shayla Mcguire S Jimenez, DO, FACP CPT-18010 Ofc Vst, Est Level IV 16:47:11 [employer] Shayla Hong Jimenez, DO, FACP CPT-08153 Ofc Vst, Est Level IV 13:05:18 CDT Shaylachance Hong Jimenez, DO, FACP CPT-11978 Ofc Vst, Est Level III 16:53:23 CDT Shayla Jackeline Tony Shayla Gely Tony, DO, FACP CPT-99739 Ofc Vst, Est Level IV 16:04:34 CDT Shayla Jackeline Tony Shayla Gely Tony, DO, FACP CPT-73868 Ofc Vst, Est Level IV 21:27:13 [employer] Shayla Jackeline Jimenez Shayla Gely Tony, DO, FACP CPT-89520 Ofc Vst, Est Level III 16:27:35 CDT Shayla Jackeline Tony Jimenez, DO, FACP CPT-91372 Ofc Vst, Est Level IV 16:39:25 CDT Shayla Jackeline Tony Mcguire Gely Tony, DO, FACP CPT-11305 Ofc Vst, Est Level III 16:55:35 CDT Shayla Jackeline Jimenez [facility] [place] CPT-09498 Ofc Vst, Est Level III 16:54:43 CDT Shayla Jackeline Jimenez [facility] [place] CPT-09097 Ofc Vst, Est Level IV 09:20:28 CDT Shayla Jackeline Jimenez [facility] [place] CPT-91750 Ofc Vst, Est Level IV 16:54:13 [employer] Shayla Jimenez [facility] [place] CPT-04201 Ofc Vst, Est Level III 16:37:40 CDT Shayla Jackeline Jimenez [facility] [place] CPT-88486 Ofc Vst, Est Level IV 11:44:17 CDT Shayla Jackeline Jimenez [facility] [place] CPT-01706 Ofc Vst, Est Level III 16:17:20 [employer] Shayla Jimenez [facility] [place] CPT-52551 Ofc Vst, Est Level III 17:45:48 CDT Shayla Jackeline Jimenez [facility] [place] CPT-45821 Ofc Vst, Est Level IV 09:23:42 CDT Shayla Mujicaanne Tony [facility] [place] CPT-89994 Ofc Vst, Est Level III 21:31:16 CDT Shayla Jackeline Mixonner [facility] [place] CPT-88058 Ofc Vst, Est Level II 17:28:49 [employer] Shayla Mujicaannkenyatta MixonJimenez [facility] [place] CPT-37076 Ofc Vst, Est Level III 18:24:08 [employer] Shayla Jackeline Jimenez [facility] [place] CPT-21323 Ofc Vst, Est Level III 17:48:50 CDT Shayla Jackeline Jimenez [facility] [place] CPT-51648 Ofc Vst, Est Level IV 19:58:07 CDT Shayla Jackeline Mixonner [facility] [place] CPT-74029 Ofc Vst, Est Level IV 17:24:24 CDT Shayla Jackeline Jimenez [facility] [place] CPT-86383 Ofc Vst, Est Level IV 18:48:08 CDT Shayla Jackeline Jimenez [facility] [place] CPT-48443 Ofc Vst, New Level IV 15:16:23 CDT Shayla Jackeline Mixonner [facility] [place] Procedures Code Procedure Name Date Entry Date Standard Description CPT-66362 Preventive, Est, (40-64) 14:59:52 CDT CPT-52959 Handling of specimen from office to lab 20:32:21 [employer] CPT-55685 Strep Test 20:32:21 [employer] CPT-23299 Preventive, Est, (40-64) 13:09:30 CDT CPT-38856 Injection 16:39:25 CDT
--- OUTSIDE RECORDS SUMMARY | 2018-03-30 16:59 | XMS REPORT ---
Author KAYLEIGH Neal [facility] eClinicalWorks Address Unknown Phone Unavailable Care Team Providers Care Specialist Wound Care Name Role Phone KAYLEIGH STEEL Unavailable Allergies No Known Allergies Problems Problem Type Condition Code Onset Dates Condition Status Problem Acute sinusitis, unspecified 461.9 Active Problem Need for prophylactic vaccination and inoculation, Influenza V04.81 Active Problem Obstructive sleep apnea (adult) (pediatric) 327.23 Active Assessment Encounter for immunization Z23 Active Medications No Known Medications Procedures Procedure Coding System Code Date SINGLE IMMUNIZATION ADMIN CPT-4 97406 Aug 20, 2015 FLUARIX QUAD (3 & UP)-GSK-2014 CPT-4 51741 Aug 20, 2015 Results No Known Results Immunizations Vaccine Administration Date FLUARIX QUAD (3 & UP)-GSK-2014Aug 20, 2015 Summary Purpose eClinicalWorks Submission
--- OUTSIDE RECORDS SUMMARY | 2018-03-30 16:59 | XMS REPORT | Clinical Summary ---
Author Author User, HENRI Organization [facility] [place] Address Unknown Phone Unavailable Allergies, Adverse Reactions, [...] TREATMENT No Longer Active Shayla Jimenez NYSTATIN 275707 U/ML SUSP 5cc PO QID for 7 days NYSTATIN 78985823422 No Longer Active Shayla Jimenez OMEPRAZOLE 20 MG CPDR 1 PO daily OMEPRAZOLE 22368318018 No Longer Active Shayla Jimenez FELODIPINE ER 5 MG [id number]-FSI 1 PO DAILY FELODIPINE 00295358574 Active Shayla Jimenez AUGMENTIN 500-125 MG TAB 1 PO BID AMOXICILLIN-POT CLAVULANATE 81272796818 No Longer Active Shaylachance Jimenez COMBIVENT RESPIMAT 20-100 MCG/ACT AERS 2 puffs Q6hrs prn IPRATROPIUM- ALBUTEROL 93890126262 Active Shaylachance Jimenez ALPRAZOLAM 0.5 MG TABS 1 PO Q6hrs prn anxiety ALPRAZOLAM 11306945169 No Longer Active Shayla Jackeline Jimenez HYDROCODONE-ACETAMINOPHEN 5-325 MG TABS 1-2 PO Q4-6 hrs prn pain HYDROCODONE-ACETAMINOPHEN 28064844936 Active Shayla Jackeline Jimenez ZYRTEC 10 MG TAB 1 PO QD CETIRIZINE HCL Active Shayla Jackeline Jimenez NYSTATIN 416018 U/ML SUSP 5cc PO QID for 7 days NYSTATIN 85237280467 No Longer Active Jane Perla FOLTANX RF 3-90.314-2-35 MG CAPS 1 PO BID [id number] -B12-B6 42686216340 Active Tika Betis FLONASE 50 MCG/ACT SUSP 2 puffs each nostril daily FLUTICASONE PROPIONATE 02976820584 Active Shaylachance Jimenez VITAMIN D 1000 UNIT TABS 1 PO Daily CHOLECALCIFEROL 82937451521 Active Shayla Jackeline Jimenez PERFOROMIST 20 MCG/2ML NEBU 1 treatment BID FORMOTEROL FUMARATE 32425787658 No Longer Active Shayla Jackeline Jimenez LIPITOR 20 MG TAB 1 PO QD ATORVASTATIN CALCIUM 15012200943 Active Shaylachance Jimenez GLUCOSAMINE-CHONDROITIN CAPS as directed GLUCOSAMINE- CHONDROIT-VIT C-MN 58854181046 No Longer Active Shaylachance Jimenez PROMETHAZINE HCL 25 MG SUPP 1 GA Q6hrs prn nausea PROMETHAZINE HCL 67453571212 No Longer Active Shayla Jackeline Jimenez PROMETHAZINE HCL 25 MG TABS 1 PO Q6hrs prn nasuea PROMETHAZINE HCL 07493982930 No Longer Active Shaylachance Jimenez PERCOCET 5-325 MG TAB 1 PO Q 6 hours OXYCODONE- ACETAMINOPHEN 92533055891 No Longer Active Shaylachance Jimenez LOTRISONE 0.05-1 % CREAM apply to affected area on left leg BID for 2 weeks CLOTRIMAZOLE-BETAMETHASONE 90207564380 No Longer Active Shayla Jimenez PREDNISONE 20 MG TAB 2 pills at once for 5 days then 1 pill daily for 5 days PREDNISONE 86865397524 No Longer Active Shayla Jimenez ADVAIR DISKUS 100-50 MCG/DOSE MISC 1 puff BID FLUTICASONE-SALMETEROL 49500737588 No Longer Active Shayla Jimenez SYMBICORT 160-4.5 MCG/ACT AERO 2 puffs BID BUDESONIDE- FORMOTEROL FUMARATE 18808696804 Active Shayla Jimenez PREDNISONE 20 MG TAB 2 pills at once for 3 days then 1 pill daily for 3 days PREDNISONE 34833569747 No Longer Active Josi [place] PREDNISONE 20 MG TAB 2 PO DAILY x 3 days, then 1 PO DAILY x 3 days PREDNISONE 28180773382 No Longer Active Shayla Jimenez FLEXERIL 10 MG TABS 1 PO TID PRN CYCLOBENZAPRINE HCL Active Tika Ruiz LAMISIL 250 MG TAB 1 PO daily for 2 weeks TERBINAFINE HCL 99621931860 No Longer Active Shayla Jimenez VALIUM 2 MG TAB 1 PO 30 minutes before MRI and may repeat. 12/15 DIAZEPAM 29007459109 No Longer Active Tika Ruiz SINGULAIR 10 MG TABS 1 PO daily at night MONTELUKAST SODIUM 23399097497 Active Tika Ruiz DUONEB 0.5-2.5 (3) MG/3ML SOLN 1 treatment QID prn IPRATROPIUM -ALBUTEROL Active Ryan Pace ADVAIR DISKUS 100-50 MCG/DOSE MISC 1 puff BID FLUTICASONE- SALMETEROL 35383169517 No Longer Active Shaylachance Jimenez IBUPROFEN 200 MG TAB 2 PO Q4hrs prn IBUPROFEN 09814546876 Active Shayla Jackeline Jimenez PROAIR HFA 108 (90 BASE) MCG/ACT AERS 2 puffs Q4-6hrs prn ALBUTEROL SULFATE 81970683983 Active Kathryn Reyes CLONIDINE HCL 0.1 MG TAB 1 po bid for blood pressure CLONIDINE HCL 45510511362 Active Tika Ruiz IBUPROFEN 200 MG TABS 4 PO at HS for knee pain IBUPROFEN 81687104549 No Longer Active Shayla Jackeline Jimenez ALEVE TABS 2 PO daily NAPROXEN SODIUM TABS 63725427889 No Longer Active Shaylachance Jimenez ROBITUSSIN A-C 10-100 MG/5ML SYRUP 5cc PO Q 4-6 hr prn ROBITUSSIN A-C 10-100 MG/5ML SYRUP 08137367760 No Longer Active Shaylachance Jimenez ADVAIR DISKUS 100-50 MCG/DOSE MISC 1 puff BID FLUTICASONE-SALMETEROL 60540876988 No Longer Active Shaylachance Jimenez PREDNISONE 20 MG TAB 3 daily for 2 days, 2 daily for 2 days, 1 daily for 3 days PREDNISONE 34315118858 No Longer Active Shaylachance Jimenez MANPREET 180 MG TABS 1 PO daily FEXOFENADINE HCL 28328400960 No Longer Active Shaylachance Jimenez LOTENSIN 40 MG TABS 1 PO daily BENAZEPRIL HCL 75987070260 Active Shaylachance Jimenez HYDROCODONE-ACETAMINOPHEN 5-500 MG TABS 1 po q 6 hrs. prn pain HYDROCODONE-ACETAMINOPHEN 93093781728 No Longer Active Shayla Viveros Jimenez TYLENOL 500 MG TAB 2 PO Qhrs prn ACETAMINOPHEN 70779611250 No Longer Active Shayla Viveros Jimenez LORTAB 5 5-500 MG TABS 1 to 2 PO Q6hrs prn ACETAMINOPHEN-HYDROCODONE 14708345650 No Longer Active Shayla Viveros Jimenez DYAZIDE 37.5-25 MG CAPS 1 PO daily TRIAMTERENE-HCTZ 45507449206 Active Shayla Jackeline Tony HYDROCHLOROTHIAZIDE 25 MG TABS 1 daily. HYDROCHLOROTHIAZIDE 81617780722 No Longer Active Shayla Viveros Tony NORVASC 5 MG TAB 1 PO QD AMLODIPINE BESYLATE 42026542503 No Longer Active Shaylachance Cortese Tony Immunizations [...] mg/dL Encounters Code Encounter Date Provider Facility CPT-16477 Ofc Vst, Est Level IV 20:12:26 DIETETIC AIDE Shayla Jimenez, DO, FACP CPT-25225 Ofc Vst, Est Level III 16:23:57 CDT Shayla Jimenez, DO, FACP CPT-85090 Ofc Vst, Est Level III 20:32:21 DIETETIC AIDE Shayla Jimenez, DO, FACP CPT-17941 Ofc Vst, Est Level IV 14:30:40 DIETETIC AIDE Shayla Jimenez, DO, FACP CPT-12693 Ofc Vst, Est Level IV 21:36:28 CDT Shayla Jimenez, DO, FACP CPT-78461 Ofc Vst, Est Level IV 17:00:43 CDT Shaylachance Jimenez, DO, FACP CPT-16700 Ofc Vst, Est Level IV 16:15:28 CDT Shayla Jimenez, DO, FACP CPT-65621 Ofc Vst, Est Level IV 13:40:25 CDT Shayla Jimenez, DO, FACP CPT-69622 Ofc Vst, Est Level IV 14:08:24 CDT Shayla Jimenez, DO, FACP CPT-10957 Ofc Vst, Est Level III 16:11:21 CDT Shaylachance Hong Tony, DO, FACP CPT-89806 Ofc Vst, Est Level IV 08:41:50 DIETETIC AIDE Shayla Hong Jimenez, DO, FACP CPT-80263 Ofc Vst, Est Level III 15:21:14 CDT Shayla Jackeline Hong Tony, DO, FACP CPT-86352 Ofc Vst, Est Level V 11:09:46 CDT Shayla Jackeline Hong Tony, DO, FACP CPT-40945 Ofc Vst, Est Level IV 11:38:53 CDT Shaylachance Hong Tony, DO, FACP CPT-03915 Office Consult, Level IV 15:08:29 CDT Shaylachance Hong Tony, DO, FACP CPT-54544 Ofc Vst, Est Level III 10:32:31 CDT Shaylachance Hong Tony, DO, FACP CPT-78849 Ofc Vst, Est Level V 16:21:30 CDT Shaylachance Hong Tony, DO, FACP CPT-77411 Ofc Vst, Est Level III 16:34:59 DIETETIC AIDE Shayla Hong Jimenez, DO, FACP CPT-53614 Ofc Vst, Est Level IV 15:47:00 DIETETIC AIDE Shayla Hong Jimenez, DO, FACP CPT-21924 Ofc Vst, Est Level IV 10:47:45 DIETETIC AIDE Shayla Hong Jimenez, DO, FACP CPT-99511 Ofc Vst, Est Level IV 16:03:38 DIETETIC AIDE Shayla Hong Tony, DO, FACP CPT-03273 Ofc Vst, Est Level V 10:34:09 DIETETIC AIDE Shayla Hong Jimenez, DO, FACP CPT-63970 Ofc Vst, Est Level IV 15:33:57 CDT Shayla Hong Jimenez, DO, FACP CPT-73149 Ofc Vst, Est Level IV 16:16:24 CDT Shayla Hong Jimenez, DO, FACP CPT-91391 Ofc Vst, Est Level IV 16:08:16 DIETETIC AIDE Shayla Hong Jimenez, DO, FACP CPT-68030 Ofc Vst, Est Level IV 10:48:11 CDT Shayla Hong Jimenez, DO, FACP CPT-09586 Ofc Vst, Est Level IV 11:28:59 CDT Shayla Hong Jimenez, DO, FACP CPT-64496 Ofc Vst, Est Level IV 16:18:27 DIETETIC AIDE Shayla Hong Jimenez, DO, FACP CPT-89497 Ofc Vst, Est Level IV 11:20:46 DIETETIC AIDE Shayla Hong Jimenez, DO, FACP CPT-94982 Ofc Vst, Est Level V 13:33:16 DIETETIC AIDE Shayla Hong Jimenez, DO, FACP CPT-11818 Ofc Vst, Est Level IV 16:07:29 CDT Shaylachance Hong Jimenez, DO, FACP CPT-10989 Ofc Vst, Est Level IV 09:41:53 CDT Shayla Mcguire S Jimenez, DO, FACP CPT-96342 Ofc Vst, Est Level IV 16:47:11 DIETETIC AIDE Shayla Hong Jimenez, DO, FACP CPT-04657 Ofc Vst, Est Level IV 13:05:18 CDT Shaylachance Hong Jimenez, DO, FACP CPT-36607 Ofc Vst, Est Level III 16:53:23 CDT Shayla Jackeline Tony Shayla Gely Tony, DO, FACP CPT-62239 Ofc Vst, Est Level IV 16:04:34 CDT Shayla Jackeline Tony Shayla Gely Tony, DO, FACP CPT-47064 Ofc Vst, Est Level IV 21:27:13 DIETETIC AIDE Shayla Jackeline Jimenez Shayla Gely Tony, DO, FACP CPT-69518 Ofc Vst, Est Level III 16:27:35 CDT Shayla Jackeline Tony Jimenez, DO, FACP CPT-58728 Ofc Vst, Est Level IV 16:39:25 CDT Shayla Jackeline Tony Mcguire Gely Tony, DO, FACP CPT-17417 Ofc Vst, Est Level III 16:55:35 CDT Shayla Jackeline Jimenez [facility] [place] CPT-58899 Ofc Vst, Est Level III 16:54:43 CDT Shayla Jackeline Jimenez [facility] [place] CPT-73011 Ofc Vst, Est Level IV 09:20:28 CDT Shayla Jackeline Jimenez [facility] [place] CPT-77729 Ofc Vst, Est Level IV 16:54:13 DIETETIC AIDE Shayla Jimenez [facility] [place] CPT-58547 Ofc Vst, Est Level III 16:37:40 CDT Shayla Jackeline Jimenez [facility] [place] CPT-46234 Ofc Vst, Est Level IV 11:44:17 CDT Shayla Jackeline Jimenez [facility] [place] CPT-92658 Ofc Vst, Est Level III 16:17:20 DIETETIC AIDE Shayla Jimenez [facility] [place] CPT-45510 Ofc Vst, Est Level III 17:45:48 CDT Shayla Jackeline Jimenez [facility] [place] CPT-65370 Ofc Vst, Est Level IV 09:23:42 CDT Shayla Mujicaanne Tony [facility] [place] CPT-42335 Ofc Vst, Est Level III 21:31:16 CDT Shayla Jackeline Mixonner [facility] [place] CPT-61023 Ofc Vst, Est Level II 17:28:49 DIETETIC AIDE Shayla Mujicaannkenyatta MixonJimenez [facility] [place] CPT-47932 Ofc Vst, Est Level III 18:24:08 DIETETIC AIDE Shalya Jackeline Jimenez [facility] [place] CPT-82203 Ofc Vst, Est Level III 17:48:50 CDT Shayla Jackeline Jimenez [facility] [place] CPT-45088 Ofc Vst, Est Level IV 19:58:07 CDT Shayla Jackeline Mixonner [facility] [place] CPT-15433 Ofc Vst, Est Level IV 17:24:24 CDT Shayla Jackeline Jimenez [facility] [place] CPT-51098 Ofc Vst, Est Level IV 18:48:08 CDT Shayla Jackeline Jimenez [facility] [place] CPT-56426 Ofc Vst, New Level IV 15:16:23 CDT Shayla Jackeline Mixonner [facility] [place] Procedures Code Procedure Name Date Entry Date Standard Description CPT-03584 Preventive, Est, (40-64) 14:59:52 CDT CPT-47748 Handling of specimen from office to lab 20:32:21 DIETETIC AIDE CPT-77791 Strep Test 20:32:21 DIETETIC AIDE CPT-62591 Preventive, Est, (40-64) 13:09:30 CDT CPT-93896 Injection 16:39:25 CDT
[2018-03-30] MEDS ORDERED: PIPERACILLIN/TAZO 4.5 GM/D5W 100 ML IVPB IV NR ×2 (17:00)
[2018-03-30] MEDS ORDERED: ACETAMINOPHEN 325 MG TABLET/CAPLET (TYLENOL) PO PRN (17:00)
[2018-03-30] MEDS ORDERED: CATHETER FLUSH 10 ML SYR IV PRN (17:00)
--- OUTSIDE RECORDS SUMMARY | 2018-03-30 17:00 | XMS REPORT ---
Author Author KAYLEIGH STEEL [facility] [facility] Address [address] [place] [address] Care Team Providers Care Engineering Secretary Name Role Phone DANE STEELYL Unavailable PROBLEMS Type Condition ICD9-CM Code [id number] Code Onset Dates Condition Status SNOMED Code Problem Obstructive sleep apnea (adult) (pediatric) 327.23 Active 26027446 Problem Acute sinusitis, unspecified 461.9 Active 25469398 Problem Need for prophylactic vaccination and inoculation, Influenza V04.81 Active 779117610 ALLERGIES Substance Reaction Event Type Date Status Norvasc Unknown Drug Allergy March, Active Erythromycin Base Unknown Drug Allergy March, Active ENCOUNTERS Encounter Location Date Diagnosis [facility] [address] [phone] March, Acute frontal sinusitis, recurrence not specified J01.10 and Subacute maxillary sinusitis J01.00 [facility] [id number] [place] [phone] Jul, Encounter for immunization Z23 [facility] [id number] [place] [address] [phone] Aug, Encounter for immunization Z23 [facility] [id number] [place] [address] [id number] Feb, [facility] [id number] [place] [phone] Feb, [facility] [address] [phone] Aug, [facility] [id number] [place] [address] [id number] Aug, [facility] [address] [phone] Nov, [facility] [address] [facility] [id number] [address] Nov, [facility] [address] [facility] [id number] [address] Aug, [facility] [address] [facility] [id number], [place] [address] Aug, [facility] [address] [id number], [place] [address] Nov, [facility] [address] [facility] [id number] [address] Sep, [facility] [address] [id number], [place] [address] Sep, IMMUNIZATIONS No Known Immunizations SOCIAL HISTORY Never Assessed REASON FOR VISIT sinus infx PLAN OF CARE Activity Details Follow Up prn Reason: VITAL SIGNS Height 66 in 2017-04-07 Temperature 98 degrees Fahrenheit 2017-04-07 Heart Rate 92 bpm 2017-04-07 Respiratory Rate 20 2017-04-07 Blood pressure systolic 138 mmHg 2017-04-07 Blood pressure diastolic 82 mmHg 2017-04-07 MEDICATIONS Medication Instructions Dosage Frequency Start Date End Date Duration Status Lipitor 40 mg take 1 tablet (40 mg) by oral route once daily Nov, Active Symbicort 160-4.5 mcg/actuation inhale 2 puffs by inhalation route 2 times per day in the morning and evening Nov, Active Flonase [address] 1 SPRAY IN EACH NOSTRIL TWICE DAILY 30 Active Ipratropium-Albuterol 0.5 mg-3 mg(2.5 mg base)/3 mL prn Nov, Active Flonase 50 mcg/actuation 1 sprays by Nasal route 2 times per day in each nostril Nov, Active Lisinopril 10 mg take 1 tablet (10 mg) by oral route once daily Nov Active Humira Active RESULTS No Results PROCEDURES No Known procedures INSTRUCTIONS MEDICATIONS ADMINISTERED No Known Medications MEDICAL (GENERAL) HISTORY Type Description Date Medical History Rheumtoid arthritis Medical History obesity
--- OUTSIDE RECORDS SUMMARY | 2018-03-30 17:00 | XMS REPORT | Clinical Summary ---
Author Author User, HENRI Organization Formerly [facility] Address Unknown Phone Unavailable Allergies, Adverse Reactions, [...] TREATMENT No Longer Active Shayla Jimenez NYSTATIN 382401 U/ML SUSP 5cc PO QID for 7 days NYSTATIN 07973100443 No Longer Active Shayla Jimenez OMEPRAZOLE 20 MG CPDR 1 PO daily OMEPRAZOLE 18451878171 No Longer Active Shayla Jimenez FELODIPINE ER 5 MG [id number] 1 PO DAILY FELODIPINE 56977447281 Active Shayla Jimenez AUGMENTIN 500-125 MG TAB 1 PO BID AMOXICILLIN-POT CLAVULANATE 88696167452 No Longer Active Shaylachance Jimenez COMBIVENT RESPIMAT 20-100 MCG/ACT AERS 2 puffs Q6hrs prn IPRATROPIUM- ALBUTEROL 77020201702 Active Shaylachance Jimenez ALPRAZOLAM 0.5 MG TABS 1 PO Q6hrs prn anxiety ALPRAZOLAM 97207132417 No Longer Active Shayla Jackeline Jimenez HYDROCODONE-ACETAMINOPHEN 5-325 MG TABS 1-2 PO Q4-6 hrs prn pain HYDROCODONE-ACETAMINOPHEN 32895460489 Active Shayla Jackeline Jimenez ZYRTEC 10 MG TAB 1 PO QD CETIRIZINE HCL Active Shayla Jackeline Jimenez NYSTATIN 197157 U/ML SUSP 5cc PO QID for 7 days NYSTATIN 72821488906 No Longer Active Jane Perla FOLTANX RF 3-90.314-2-35 MG CAPS 1 PO BID [id number] -B12-B6 51007564189 Active Tammy Schrichardbach FLONASE 50 MCG/ACT SUSP 2 puffs each nostril daily FLUTICASONE PROPIONATE 95184090651 Active Shaylachance Jimenez VITAMIN D 1000 UNIT TABS 1 PO Daily CHOLECALCIFEROL 14227933890 Active Shaylachance Jimenez PERFOROMIST 20 MCG/2ML NEBU 1 treatment BID FORMOTEROL FUMARATE 16383920573 No Longer Active Shaylachance Jimenez LIPITOR 20 MG TAB 1 PO QD ATORVASTATIN CALCIUM 22678303985 Active Shaylachance Jimenez GLUCOSAMINE-CHONDROITIN CAPS as directed GLUCOSAMINE- CHONDROIT-VIT C-MN 40984705162 No Longer Active Shaylachance Jimenez PROMETHAZINE HCL 25 MG SUPP 1 VT Q6hrs prn nausea PROMETHAZINE HCL 57848244752 No Longer Active Shayla Jackeline Jimenez PROMETHAZINE HCL 25 MG TABS 1 PO Q6hrs prn nasuea PROMETHAZINE HCL 41103647066 No Longer Active Shayla Jackeline Jimenez PERCOCET 5-325 MG TAB 1 PO Q 6 hours OXYCODONE- ACETAMINOPHEN 99857600476 No Longer Active Shayla Jackeline Jimenez LOTRISONE 0.05-1 % CREAM apply to affected area on left leg BID for 2 weeks CLOTRIMAZOLE-BETAMETHASONE 99359281437 No Longer Active Shaylachance Jimenez PREDNISONE 20 MG TAB 2 pills at once for 5 days then 1 pill daily for 5 days PREDNISONE 97767556298 No Longer Active Shaylachance Jimenez ADVAIR DISKUS 100-50 MCG/DOSE MISC 1 puff BID FLUTICASONE-SALMETEROL 21034346239 No Longer Active Shaylachance Jimenez SYMBICORT 160-4.5 MCG/ACT AERO 2 puffs BID BUDESONIDE- FORMOTEROL FUMARATE 68869205475 Active Shaylachance Jimenez PREDNISONE 20 MG TAB 2 pills at once for 3 days then 1 pill daily for 3 days PREDNISONE 03047395702 No Longer Active Josi Derian PREDNISONE 20 MG TAB 2 PO DAILY x 3 days, then 1 PO DAILY x 3 days PREDNISONE 85426954933 No Longer Active Shayla Jimenez FLEXERIL 10 MG TABS 1 PO TID PRN CYCLOBENZAPRINE HCL Active Shayla Jackeline Jimenez LAMISIL 250 MG TAB 1 PO daily for 2 weeks TERBINAFINE HCL 96475983500 No Longer Active Shayla Jimenez VALIUM 2 MG TAB 1 PO 30 minutes before MRI and may repeat. 12/15 DIAZEPAM 68668693809 No Longer Active Tika Ruiz SINGULAIR 10 MG TABS 1 PO daily at night MONTELUKAST SODIUM 55115339610 Active Tammy Booth DUONEB 0.5-2.5 (3) MG/3ML SOLN 1 treatment QID prn IPRATROPIUM -ALBUTEROL Active Ryan Pace ADVAIR DISKUS 100-50 MCG/DOSE MISC 1 puff BID FLUTICASONE- SALMETEROL 59483250659 No Longer Active Shaylachance Jimenez IBUPROFEN 200 MG TAB 2 PO Q4hrs prn IBUPROFEN 42845323906 Active Shayla Jackeline Jimenez PROAIR HFA 108 (90 BASE) MCG/ACT AERS 2 puffs Q4-6hrs prn ALBUTEROL SULFATE 81437407733 Active Kathryn Reyes CLONIDINE HCL 0.1 MG TAB 1 po bid for blood pressure CLONIDINE HCL 07062717487 Active Shaylachance Jimenez IBUPROFEN 200 MG TABS 4 PO at HS for knee pain IBUPROFEN 84165947805 No Longer Active Shayla Jackeline Jimenez ALEVE TABS 2 PO daily NAPROXEN SODIUM TABS 16120820278 No Longer Active Shaylachance Jimenez ROBITUSSIN A-C 10-100 MG/5ML SYRUP 5cc PO Q 4-6 hr prn ROBITUSSIN A-C 10-100 MG/5ML SYRUP 33861093891 No Longer Active Shaylachance Jimenez ADVAIR DISKUS 100-50 MCG/DOSE MISC 1 puff BID FLUTICASONE-SALMETEROL 30373156651 No Longer Active Shaylachance Jimenez PREDNISONE 20 MG TAB 3 daily for 2 days, 2 daily for 2 days, 1 daily for 3 days PREDNISONE 03606225403 No Longer Active Shayla Jackeline Jimenez MANPREET 180 MG TABS 1 PO daily FEXOFENADINE HCL 49074648367 No Longer Active Shaylachance Jimenez LOTENSIN 40 MG TABS 1 PO daily BENAZEPRIL HCL 48229784553 Active Shaylachance Jimenez HYDROCODONE-ACETAMINOPHEN 5-500 MG TABS 1 po q 6 hrs. prn pain HYDROCODONE-ACETAMINOPHEN 15947935938 No Longer Active Shayla Jackeline Jimenez TYLENOL 500 MG TAB 2 PO Qhrs prn ACETAMINOPHEN 16779106171 No Longer Active Shayla Jackeline Mixonner LORTAB 5 5-500 MG TABS 1 to 2 PO Q6hrs prn ACETAMINOPHEN-HYDROCODONE 14619217202 No Longer Active Shayla Jackeline Jimenez DYAZIDE 37.5-25 MG CAPS 1 PO daily TRIAMTERENE-HCTZ 73797951712 Active Shayla Jackeline Tony HYDROCHLOROTHIAZIDE 25 MG TABS 1 daily. HYDROCHLOROTHIAZIDE 25245307972 No Longer Active Shayla Jackeline Tony NORVASC 5 MG TAB 1 PO QD AMLODIPINE BESYLATE 07683512337 No Longer Active Shaylachance Cortese Tony Immunizations [...] mg/dL Encounters Code Encounter Date Provider Facility CPT-58672 Ofc Vst, Est Level IV 20:12:26 KILN OPERATOR Shayla Jimenez, DO, FACP CPT-43867 Ofc Vst, Est Level III 16:23:57 CDT Shayla Jimenez, DO, FACP CPT-18243 Ofc Vst, Est Level III 20:32:21 KILN OPERATOR Shayla Jimenez DO, FACP CPT-34203 Ofc Vst, Est Level IV 14:30:40 KILN OPERATOR Shayla Jimenez, DO, FACP CPT-52709 Ofc Vst, Est Level IV 21:36:28 CDT Shayla Jimenez, DO, FACP CPT-88094 Ofc Vst, Est Level IV 17:00:43 CDT Shayla Jimenez, DO, FACP CPT-45257 Ofc Vst, Est Level IV 16:15:28 CDT Shaylachance Hong Jimenez, DO, FACP CPT-13063 Ofc Vst, Est Level IV 13:40:25 CDT Shayla Jackeline Hong Jimenez, DO, FACP CPT-83827 Ofc Vst, Est Level IV 14:08:24 CDT Shayla Jackeline Hong Jimenez, DO, FACP CPT-97266 Ofc Vst, Est Level III 16:11:21 CDT Shaylachance Hong Jimenez, DO, FACP CPT-95152 Ofc Vst, Est Level IV 08:41:50 KILN OPERATOR Shaylachance Hong Tony, DO, FACP CPT-97935 Ofc Vst, Est Level III 15:21:14 CDT Shayla Jackeline Hong Tony, DO, FACP CPT-04345 Ofc Vst, Est Level V 11:09:46 CDT Shaylachance Hong Jimenez, DO, FACP CPT-59996 Ofc Vst, Est Level IV 11:38:53 CDT Shayla Jackeline Hong Tony, DO, FACP CPT-04638 Office Consult, Level IV 15:08:29 CDT Shayla Hong Tony, DO, FACP CPT-07600 Ofc Vst, Est Level III 10:32:31 CDT Shaylachance Hong Jimenez, DO, FACP CPT-10052 Ofc Vst, Est Level V 16:21:30 CDT Shayla Jackeline Mcguire S Jimenez, DO, FACP CPT-15820 Ofc Vst, Est Level III 16:34:59 KILN OPERATOR Shayla Mcguire S Jimenez, DO, FACP CPT-22843 Ofc Vst, Est Level IV 15:47:00 KILN OPERATOR Shaylachance Hong Jimenez, DO, FACP CPT-15981 Ofc Vst, Est Level IV 10:47:45 KILN OPERATOR Shayla Hong Jimenez, DO, FACP CPT-69424 Ofc Vst, Est Level IV 16:03:38 KILN OPERATOR Shayla Hong Jimenez, DO, FACP CPT-93226 Ofc Vst, Est Level V 10:34:09 KILN OPERATOR Shayla Hong Jimenez, DO, FACP CPT-75306 Ofc Vst, Est Level IV 15:33:57 CDT Shayla Jackeline Hong Jimenez, DO, FACP CPT-02182 Ofc Vst, Est Level IV 16:16:24 CDT Shayla Jackeline Hong Jimenez, DO, FACP CPT-95808 Ofc Vst, Est Level IV 16:08:16 KILN OPERATOR Shayla Hong Jimenez, DO, FACP CPT-45738 Ofc Vst, Est Level IV 10:48:11 CDT Shayla Jackeline Hong Jimenez, DO, FACP CPT-46838 Ofc Vst, Est Level IV 11:28:59 CDT Shaylachance Hong Jimenez, DO, FACP CPT-80977 Ofc Vst, Est Level IV 16:18:27 KILN OPERATOR Shayla Jackeline Hong Jimenez, DO, FACP CPT-39175 Ofc Vst, Est Level IV 11:20:46 KILN OPERATOR Shayla Jackeline Hong Jimenez, DO, FACP CPT-11766 Ofc Vst, Est Level V 13:33:16 KILN OPERATOR Shayla Hong Jimenez, DO, FACP CPT-41773 Ofc Vst, Est Level IV 16:07:29 CDT Shayla Jackeline Hong Tony, DO, FACP CPT-48419 Ofc Vst, Est Level IV 09:41:53 CDT Shayla Jackeline Hong Tony, DO, FACP CPT-87389 Ofc Vst, Est Level IV 16:47:11 KILN OPERATOR Shayla Jackeline Hong Tony, DO, FACP CPT-01862 Ofc Vst, Est Level IV 13:05:18 CDT Shayla Jackeline Hong Tony, DO, FACP CPT-59389 Ofc Vst, Est Level III 16:53:23 CDT Shayla Jackeline Mixonner Shayla Hong Tony, DO, FACP CPT-51868 Ofc Vst, Est Level IV 16:04:34 CDT Shayla Jackeline Hong Tony, DO, FACP CPT-55123 Ofc Vst, Est Level IV 21:27:13 KILN OPERATOR Shayla Jackeline Mixonner Shayla Hong Tony, DO, FACP CPT-27404 Ofc Vst, Est Level III 16:27:35 CDT Shayla Jackeline Mixonner Shayla Hong Tony, DO, FACP CPT-01013 Ofc Vst, Est Level IV 16:39:25 CDT Shayla Jackeline Mixonner Shayla Hong Tony, DO, FACP CPT-40733 Ofc Vst, Est Level III 16:55:35 CDT Shaylachance Jimenez [facility] CPT-61666 Ofc Vst, Est Level III 16:54:43 CDT Shayla Jackeline Jimenez [facility] CPT-30262 Ofc Vst, Est Level IV 09:20:28 CDT Shayla Jackeline Jimenez [facility] CPT-00558 Ofc Vst, Est Level IV 16:54:13 KILN OPERATOR Shayla Jimenez [facility] CPT-17823 Ofc Vst, Est Level III 16:37:40 CDT Shayla Jackeline Jimenez [facility] CPT-03454 Ofc Vst, Est Level IV 11:44:17 CDT Shayla Jackeline Jimenez [facility] CPT-59932 Ofc Vst, Est Level III 16:17:20 KILN OPERATOR Shayla Jackeline Mixonner [facility] CPT-49176 Ofc Vst, Est Level III 17:45:48 CDT Shayla Jackeline Jimenez [facility] CPT-13835 Ofc Vst, Est Level IV 09:23:42 CDT Shayla Jackeline Jimenez [facility] CPT-97196 Ofc Vst, Est Level III 21:31:16 CDT Shayla Jackeline Jimenez [facility] CPT-10761 Ofc Vst, Est Level II 17:28:49 KILN OPERATOR Shayla Jackeline Jimenez [facility] CPT-30266 Ofc Vst, Est Level III 18:24:08 KILN OPERATOR Shayla Jackeline Jimenez [facility] CPT-87270 Ofc Vst, Est Level III 17:48:50 CDT Shayla Jackeline Jimenez [facility] CPT-13797 Ofc Vst, Est Level IV 19:58:07 CDT Shayla Jackeline Jimenez [facility] CPT-65679 Ofc Vst, Est Level IV 17:24:24 CDT Shayla Jackeline Jimenez [facility] CPT-83524 Ofc Vst, Est Level IV 18:48:08 CDT Shayla Jackeline Jimenez [facility] CPT-84777 Ofc Vst, New Level IV 15:16:23 CDT Shayla Jackelineolvin Jimenez [facility] Procedures Code Procedure Name Date Entry Date Standard Description CPT-91311 Preventive, Est, (40-64) 14:59:52 CDT CPT-90430 Handling of specimen from office to lab 20:32:21 KILN OPERATOR CPT-77455 Strep Test 20:32:21 KILN OPERATOR CPT-83159 Preventive, Est, (40-64) 13:09:30 CDT CPT-46906 Injection 16:39:25 CDT
--- OUTSIDE RECORDS SUMMARY | 2018-03-30 17:01 | XMS REPORT | Clinical Summary ---
Author Author User, HENRI Organization [facility] Address Unknown Phone Unavailable Allergies, Adverse Reactions, [...] NOS W/O STATUS ASTHMATICUS 493.90 Resolved Shayla Jmienez Asthma, unspecified BREAST MASS, LEFT 611.72 Resolved [...] DIABETES MELLITUS, NONINSULIN DEPENDENT (NIDDM) 250.02 Active Shayal Jimenez Diabetes mellitus without mention of complication, [...] TREATMENT No Longer Active Shayla Jimenez NYSTATIN 908719 U/ML SUSP 5cc PO QID for 7 days NYSTATIN 71821320558 No Longer Active Shayla Jimenez OMEPRAZOLE 20 MG CPDR 1 PO daily OMEPRAZOLE 50257665548 No Longer Active Shayla Jimenez FELODIPINE ER 5 MG [id number] 1 PO DAILY FELODIPINE 10813716106 Active Shayla Jimenez AUGMENTIN 500-125 MG TAB 1 PO BID AMOXICILLIN-POT CLAVULANATE 61920020664 No Longer Active Shaylachance Jimenez COMBIVENT RESPIMAT 20-100 MCG/ACT AERS 2 puffs Q6hrs prn IPRATROPIUM- ALBUTEROL 55785435360 Active Shaylachance Jimenez ALPRAZOLAM 0.5 MG TABS 1 PO Q6hrs prn anxiety ALPRAZOLAM 45223210560 No Longer Active Shayla Jackeline Jimenez HYDROCODONE-ACETAMINOPHEN 5-325 MG TABS 1-2 PO Q4-6 hrs prn pain HYDROCODONE-ACETAMINOPHEN 17198845959 Active Shayla Jackeline Jimenez ZYRTEC 10 MG TAB 1 PO QD CETIRIZINE HCL Active Shayla Jackeline Jimenez NYSTATIN 315606 U/ML SUSP 5cc PO QID for 7 days NYSTATIN 48016279538 No Longer Active Jane Perla FOLTANX RF 3-90.314-2-35 MG CAPS 1 PO BID [id number] -B12-B6 06857484404 Active Tammy Schrichardbach FLONASE 50 MCG/ACT SUSP 2 puffs each nostril daily FLUTICASONE PROPIONATE 60923527646 Active Shaylachance Jimenez VITAMIN D 1000 UNIT TABS 1 PO Daily CHOLECALCIFEROL 57978659698 Active Shaylachance Jimenez PERFOROMIST 20 MCG/2ML NEBU 1 treatment BID FORMOTEROL FUMARATE 53626033113 No Longer Active Shaylachance Jimenez LIPITOR 20 MG TAB 1 PO QD ATORVASTATIN CALCIUM 99526375847 Active Shaylachance Jimenez GLUCOSAMINE-CHONDROITIN CAPS as directed GLUCOSAMINE- CHONDROIT-VIT C-MN 20205322310 No Longer Active Shaylachance Jimenez PROMETHAZINE HCL 25 MG SUPP 1 MN Q6hrs prn nausea PROMETHAZINE HCL 06452886698 No Longer Active Shayla Jackeline Jimenez PROMETHAZINE HCL 25 MG TABS 1 PO Q6hrs prn nasuea PROMETHAZINE HCL 92389444590 No Longer Active Shayla Jackeline Jimenez PERCOCET 5-325 MG TAB 1 PO Q 6 hours OXYCODONE- ACETAMINOPHEN 15821946678 No Longer Active Shayla Jackeline Jimenez LOTRISONE 0.05-1 % CREAM apply to affected area on left leg BID for 2 weeks CLOTRIMAZOLE-BETAMETHASONE 62691633749 No Longer Active Shaylachance Jimenez PREDNISONE 20 MG TAB 2 pills at once for 5 days then 1 pill daily for 5 days PREDNISONE 27441138949 No Longer Active Shaylachance Jimenez ADVAIR DISKUS 100-50 MCG/DOSE MISC 1 puff BID FLUTICASONE-SALMETEROL 49635952462 No Longer Active Shaylachance Jimenez SYMBICORT 160-4.5 MCG/ACT AERO 2 puffs BID BUDESONIDE- FORMOTEROL FUMARATE 40241555375 Active Shaylachance Jimenez PREDNISONE 20 MG TAB 2 pills at once for 3 days then 1 pill daily for 3 days PREDNISONE 24851060155 No Longer Active Josi Derian PREDNISONE 20 MG TAB 2 PO DAILY x 3 days, then 1 PO DAILY x 3 days PREDNISONE 06420350411 No Longer Active Shayla Jimenez FLEXERIL 10 MG TABS 1 PO TID PRN CYCLOBENZAPRINE HCL Active Shayla Jackeline Jimenez LAMISIL 250 MG TAB 1 PO daily for 2 weeks TERBINAFINE HCL 66143938146 No Longer Active Shayla Jimenez VALIUM 2 MG TAB 1 PO 30 minutes before MRI and may repeat. 12/15 DIAZEPAM 64992886422 No Longer Active Tika Ruiz SINGULAIR 10 MG TABS 1 PO daily at night MONTELUKAST SODIUM 72880337027 Active Tammy Booth DUONEB 0.5-2.5 (3) MG/3ML SOLN 1 treatment QID prn IPRATROPIUM -ALBUTEROL Active Ryan Pace ADVAIR DISKUS 100-50 MCG/DOSE MISC 1 puff BID FLUTICASONE- SALMETEROL 24614274545 No Longer Active Shaylachance Jimenez IBUPROFEN 200 MG TAB 2 PO Q4hrs prn IBUPROFEN 78920333696 Active Shayla Jackeline Jimenez PROAIR HFA 108 (90 BASE) MCG/ACT AERS 2 puffs Q4-6hrs prn ALBUTEROL SULFATE 45228132989 Active Kathryn Reyes CLONIDINE HCL 0.1 MG TAB 1 po bid for blood pressure CLONIDINE HCL 99379608878 Active Shaylachance Jimenez IBUPROFEN 200 MG TABS 4 PO at HS for knee pain IBUPROFEN 55402465169 No Longer Active Shayla Jackeline Jimenez ALEVE TABS 2 PO daily NAPROXEN SODIUM TABS 20835104821 No Longer Active Shaylachance Jimenez ROBITUSSIN A-C 10-100 MG/5ML SYRUP 5cc PO Q 4-6 hr prn ROBITUSSIN A-C 10-100 MG/5ML SYRUP 28638468593 No Longer Active Shaylachance Jimenez ADVAIR DISKUS 100-50 MCG/DOSE MISC 1 puff BID FLUTICASONE-SALMETEROL 85712498208 No Longer Active Shaylachance Jimenez PREDNISONE 20 MG TAB 3 daily for 2 days, 2 daily for 2 days, 1 daily for 3 days PREDNISONE 48872143314 No Longer Active Shayla Jackeline Jimenez MANPREET 180 MG TABS 1 PO daily FEXOFENADINE HCL 11787470129 No Longer Active Shaylachance Jimenez LOTENSIN 40 MG TABS 1 PO daily BENAZEPRIL HCL 76573673607 Active Shaylachance Jimenez HYDROCODONE-ACETAMINOPHEN 5-500 MG TABS 1 po q 6 hrs. prn pain HYDROCODONE-ACETAMINOPHEN 19388840012 No Longer Active Shayla Jackeline Jimenez TYLENOL 500 MG TAB 2 PO Qhrs prn ACETAMINOPHEN 43007671783 No Longer Active Shayla Jackeline Mixonner LORTAB 5 5-500 MG TABS 1 to 2 PO Q6hrs prn ACETAMINOPHEN-HYDROCODONE 96585718188 No Longer Active Shayla Jackeline Jimenez DYAZIDE 37.5-25 MG CAPS 1 PO daily TRIAMTERENE-HCTZ 48788099196 Active Shayla Jackeline Tony HYDROCHLOROTHIAZIDE 25 MG TABS 1 daily. HYDROCHLOROTHIAZIDE 15650220069 No Longer Active Shayla Jackeline Tony NORVASC 5 MG TAB 1 PO QD AMLODIPINE BESYLATE 20052135602 No Longer Active Shaylachance Cortese Tony Immunizations [...] mg/dL Encounters Code Encounter Date Provider Facility CPT-58856 Ofc Vst, Est Level IV 20:12:26 WINDOWS SYSTEMS ADMINISTRATOR Shayla Jimenez, DO, FACP CPT-21888 Ofc Vst, Est Level III 16:23:57 CDT Shayla Jimenez, DO, FACP CPT-58985 Ofc Vst, Est Level III 20:32:21 WINDOWS SYSTEMS ADMINISTRATOR Shayla Jimenez DO, FACP CPT-73480 Ofc Vst, Est Level IV 14:30:40 WINDOWS SYSTEMS ADMINISTRATOR Shayla Jimenez, DO, FACP CPT-10309 Ofc Vst, Est Level IV 21:36:28 CDT Shayla Jimenez, DO, FACP CPT-18922 Ofc Vst, Est Level IV 17:00:43 CDT Shayla Jimenez, DO, FACP CPT-63846 Ofc Vst, Est Level IV 16:15:28 CDT Shaylachance Hong Jimenez, DO, FACP CPT-51488 Ofc Vst, Est Level IV 13:40:25 CDT Shayla Jackeline Hong Jimenez, DO, FACP CPT-64544 Ofc Vst, Est Level IV 14:08:24 CDT Shayla Jackeline Hong Jimenez, DO, FACP CPT-10245 Ofc Vst, Est Level III 16:11:21 CDT Shaylachance Hong Jimenez, DO, FACP CPT-58440 Ofc Vst, Est Level IV 08:41:50 WINDOWS SYSTEMS ADMINISTRATOR Shaylachance Hong Tony, DO, FACP CPT-58364 Ofc Vst, Est Level III 15:21:14 CDT Shayla Jackeline Hong Tony, DO, FACP CPT-23093 Ofc Vst, Est Level V 11:09:46 CDT Shaylachance Hong Jimenez, DO, FACP CPT-64285 Ofc Vst, Est Level IV 11:38:53 CDT Shayla Jackeline Hong Tony, DO, FACP CPT-74197 Office Consult, Level IV 15:08:29 CDT Shayla Hong Tony, DO, FACP CPT-08863 Ofc Vst, Est Level III 10:32:31 CDT Shaylachance Hong Jimenez, DO, FACP CPT-75046 Ofc Vst, Est Level V 16:21:30 CDT Shayla Jackeline Mcguire S Jimenez, DO, FACP CPT-38571 Ofc Vst, Est Level III 16:34:59 WINDOWS SYSTEMS ADMINISTRATOR Shayla Mcguire S Jimenez, DO, FACP CPT-23169 Ofc Vst, Est Level IV 15:47:00 WINDOWS SYSTEMS ADMINISTRATOR Shaylachance Hong Jimenez, DO, FACP CPT-95262 Ofc Vst, Est Level IV 10:47:45 WINDOWS SYSTEMS ADMINISTRATOR Shayla Hong Jimenez, DO, FACP CPT-84789 Ofc Vst, Est Level IV 16:03:38 WINDOWS SYSTEMS ADMINISTRATOR Shayla Hong Jimenez, DO, FACP CPT-00319 Ofc Vst, Est Level V 10:34:09 WINDOWS SYSTEMS ADMINISTRATOR Shayal Hong Jimenez, DO, FACP CPT-93929 Ofc Vst, Est Level IV 15:33:57 CDT Shayla Jackeline Hong Jimenez, DO, FACP CPT-01199 Ofc Vst, Est Level IV 16:16:24 CDT Shayla Jackeline Hong Jimenez, DO, FACP CPT-67732 Ofc Vst, Est Level IV 16:08:16 WINDOWS SYSTEMS ADMINISTRATOR Shayla Hong Jimenez, DO, FACP CPT-11037 Ofc Vst, Est Level IV 10:48:11 CDT Shayla Jackeline Hong Jimenez, DO, FACP CPT-03989 Ofc Vst, Est Level IV 11:28:59 CDT Shaylachance Hong Jimenez, DO, FACP CPT-53958 Ofc Vst, Est Level IV 16:18:27 WINDOWS SYSTEMS ADMINISTRATOR Shayla Jackeline Hong Jimenez, DO, FACP CPT-80242 Ofc Vst, Est Level IV 11:20:46 WINDOWS SYSTEMS ADMINISTRATOR Shayla Jackeline Hong Jimenez, DO, FACP CPT-62151 Ofc Vst, Est Level V 13:33:16 WINDOWS SYSTEMS ADMINISTRATOR Shayla Hong Jimenez, DO, FACP CPT-25909 Ofc Vst, Est Level IV 16:07:29 CDT Shayla Jackeline Hong Tony, DO, FACP CPT-68332 Ofc Vst, Est Level IV 09:41:53 CDT Shayla Jackeline Hong Tony, DO, FACP CPT-29105 Ofc Vst, Est Level IV 16:47:11 WINDOWS SYSTEMS ADMINISTRATOR Shayla Jackeline Hong Tony, DO, FACP CPT-86592 Ofc Vst, Est Level IV 13:05:18 CDT Shayla Jackeline Hong Tony, DO, FACP CPT-21153 Ofc Vst, Est Level III 16:53:23 CDT Shayla Jackeline Mixonner Shayla Hong Tony, DO, FACP CPT-53039 Ofc Vst, Est Level IV 16:04:34 CDT Shayla Jackeline Hong oTny, DO, FACP CPT-46640 Ofc Vst, Est Level IV 21:27:13 WINDOWS SYSTEMS ADMINISTRATOR Shayla Jackeline Mixonner Shayla Hong Tony, DO, FACP CPT-47273 Ofc Vst, Est Level III 16:27:35 CDT Shayla Jackeline Mixonner Shayla Hong Tony, DO, FACP CPT-68676 Ofc Vst, Est Level IV 16:39:25 CDT Shayla Jackeline Mixonner Shayla Hong Tony, DO, FACP CPT-08597 Ofc Vst, Est Level III 16:55:35 CDT Shaylachance Jimenez [facility] CPT-00076 Ofc Vst, Est Level III 16:54:43 CDT Shayla Jackeline Jimenez [facility] CPT-15507 Ofc Vst, Est Level IV 09:20:28 CDT Shayla Jackeline Jimenez [facility] CPT-92142 Ofc Vst, Est Level IV 16:54:13 WINDOWS SYSTEMS ADMINISTRATOR Shayla Jimenez [facility] CPT-33412 Ofc Vst, Est Level III 16:37:40 CDT Shayla Jackeline Jimenez [facility] CPT-00270 Ofc Vst, Est Level IV 11:44:17 CDT Shayla Jackeline Jimenez [facility] CPT-86843 Ofc Vst, Est Level III 16:17:20 WINDOWS SYSTEMS ADMINISTRATOR Shayla Jackeline Mixonner [facility] CPT-01169 Ofc Vst, Est Level III 17:45:48 CDT Shayla Jackeline Jimenez [facility] CPT-03468 Ofc Vst, Est Level IV 09:23:42 CDT Shayla Jackeline Jimenez [facility] CPT-09702 Ofc Vst, Est Level III 21:31:16 CDT Shayla Jackeline Jimenez [facility] CPT-25627 Ofc Vst, Est Level II 17:28:49 WINDOWS SYSTEMS ADMINISTRATOR Shayla Jackeline Jimenez [facility] CPT-61789 Ofc Vst, Est Level III 18:24:08 WINDOWS SYSTEMS ADMINISTRATOR Shayla Jackeline Jimenez [facility] CPT-46847 Ofc Vst, Est Level III 17:48:50 CDT Shayla Jackeline Jimenez [facility] CPT-19434 Ofc Vst, Est Level IV 19:58:07 CDT Shayla Jackeline Jimenez [facility] CPT-43619 Ofc Vst, Est Level IV 17:24:24 CDT Shayla Jackeline Jimenez [facility] CPT-82119 Ofc Vst, Est Level IV 18:48:08 CDT Shayla Jackeline Jimenez [facility] CPT-00002 Ofc Vst, New Level IV 15:16:23 CDT Shayla Jackelineolvin [facility] Procedures Code Procedure Name Date Entry Date Standard Description CPT-64757 Preventive, Est, (40-64) 14:59:52 CDT CPT-98747 Handling of specimen from office to lab 20:32:21 [employer]OWS SYSTEM[employer] ADMINISTRATOR CPT-25269 Strep Test 20:32:21 WINDOWS SYSTEMS ADMINISTRATOR CPT-94914 Preventive, Est, (40-64) 13:09:30 CDT CPT-53838 Injection 16:39:25 CDT
--- OUTSIDE RECORDS SUMMARY | 2018-03-30 17:02 | XMS REPORT | Clinical Summary ---
Author Author User, HENRI Organization [facility] [place] Address Unknown Phone Unavailable Allergies, Adverse Reactions, [...] Provider Patient Instruction PREDNISONE 10 MG TAB 4 Pills once daily for two days then 2 pills daily until further notice. PREDNISONE [id number] Active Shayla Jimenez RACEMIC EPINEPHRINE 2.25% NEBULIZER TREATMENT 1 treatment Q4hrs prn stridor RACEMIC EPINEPHRINE 2.25% NEBULIZER TREATMENT No Longer Active Shayla Jimenez NYSTATIN 867193 U/ML SUSP 5cc PO QID for 7 days NYSTATIN 13146643324 No Longer Active Shaylachance Jimenez OMEPRAZOLE 20 MG CPDR 1 PO daily OMEPRAZOLE 52880653170 No Longer Active Shayla Jackeline Jimenez FELODIPINE ER 5 MG [id number] 1 PO DAILY FELODIPINE 41629301752 Active Shayla Jackeline Jimenez AUGMENTIN 500-125 MG TAB 1 PO BID AMOXICILLIN-POT CLAVULANATE 53952662166 No Longer Active Shayla Jackeline Jimenez COMBIVENT RESPIMAT 20-100 MCG/ACT AERS 2 puffs Q6hrs prn IPRATROPIUM- ALBUTEROL 10028441295 Active Shayla Jackeline Jimenez ALPRAZOLAM 0.5 MG TABS 1 PO Q6hrs prn anxiety ALPRAZOLAM 44892296142 No Longer Active Shaylachance Jimenez HYDROCODONE-ACETAMINOPHEN 5-325 MG TABS 1-2 PO Q4-6 hrs prn pain HYDROCODONE-ACETAMINOPHEN 10073265168 Active Shayla Jackeline Jimenez ZYRTEC 10 MG TAB 1 PO QD CETIRIZINE HCL Active Shayla Jackeline Jimenez NYSTATIN 431968 U/ML SUSP 5cc PO QID for 7 days NYSTATIN 16424868921 No Longer Active Jane BluePerla FOLTANX RF 3-90.314-2-35 MG CAPS 1 PO BID [id number]-B6 12174267295 Active Tikajimmy Betis FLONASE 50 MCG/ACT SUSP 2 puffs each nostril daily FLUTICASONE PROPIONATE 01160232636 Active Shayla Jackeline Jimenez VITAMIN D 1000 UNIT TABS 1 PO Daily CHOLECALCIFEROL 09043511728 Active Shayla Jackeline Jimenez PERFOROMIST 20 MCG/2ML NEBU 1 treatment BID FORMOTEROL FUMARATE 82547892020 No Longer Active Shaylachance Jimenez LIPITOR 20 MG TAB 1 PO QD ATORVASTATIN CALCIUM 69375822980 Active Shaylachance Jimenez GLUCOSAMINE-CHONDROITIN CAPS as directed GLUCOSAMINE- CHONDROIT-VIT C-MN 52755382762 No Longer Active Shayla Jimenez PROMETHAZINE HCL 25 MG SUPP 1 DE Q6hrs prn nausea PROMETHAZINE HCL 24258191578 No Longer Active Shaylachance Jimenez PROMETHAZINE HCL 25 MG TABS 1 PO Q6hrs prn nasuea PROMETHAZINE HCL 84770021016 No Longer Active Shaylachance Jimenez PERCOCET 5-325 MG TAB 1 PO Q 6 hours OXYCODONE- ACETAMINOPHEN 95096113017 No Longer Active Shaylachance Jimenez LOTRISONE 0.05-1 % CREAM apply to affected area on left leg BID for 2 weeks CLOTRIMAZOLE-BETAMETHASONE 00987412961 No Longer Active Shayla Jimenez PREDNISONE 20 MG TAB 2 pills at once for 5 days then 1 pill daily for 5 days PREDNISONE 75340095024 No Longer Active Shaylachance Jimenez ADVAIR DISKUS 100-50 MCG/DOSE MISC 1 puff BID FLUTICASONE-SALMETEROL 91274610125 No Longer Active Shayla Jimenez SYMBICORT 160-4.5 MCG/ACT AERO 2 puffs BID BUDESONIDE- FORMOTEROL FUMARATE 52630687488 Active Shaylachance Jimenez PREDNISONE 20 MG TAB 2 pills at once for 3 days then 1 pill daily for 3 days PREDNISONE 93266954664 No Longer Active Josi Menard PREDNISONE 20 MG TAB 2 PO DAILY x 3 days, then 1 PO DAILY x 3 days PREDNISONE 96485910491 No Longer Active Shayla Jimenez FLEXERIL 10 MG TABS 1 PO TID PRN CYCLOBENZAPRINE HCL Active Tika Ruiz LAMISIL 250 MG TAB 1 PO daily for 2 weeks TERBINAFINE HCL 88683713587 No Longer Active Shaylachance Jimenez VALIUM 2 MG TAB 1 PO 30 minutes before MRI and march repeat. 12/15 DIAZEPAM 31599749308 No Longer Active Tika Ruiz SINGULAIR 10 MG TABS 1 PO daily at night MONTELUKAST SODIUM 58496710752 Active Tika Ruiz DUONEB 0.5-2.5 (3) MG/3ML SOLN 1 treatment QID prn IPRATROPIUM -ALBUTEROL Active Ryan Pace ADVAIR DISKUS 100-50 MCG/DOSE MISC 1 puff BID FLUTICASONE- SALMETEROL 56906172429 No Longer Active Shaylachance Jimenez IBUPROFEN 200 MG TAB 2 PO Q4hrs prn IBUPROFEN 51914923465 Active Shayla Jackeline Jimenez PROAIR HFA 108 (90 BASE) MCG/ACT AERS 2 puffs Q4-6hrs prn ALBUTEROL SULFATE 50293128387 Active Kathryn Reyes CLONIDINE HCL 0.1 MG TAB 1 po bid for blood pressure CLONIDINE HCL 17849967557 Active Tika Ruiz IBUPROFEN 200 MG TABS 4 PO at HS for knee pain IBUPROFEN 98240810111 No Longer Active Shaylachance Jimenez ALEVE TABS 2 PO daily NAPROXEN SODIUM TABS 21174038643 No Longer Active Shaylachance Jimenez ROBITUSSIN A-C 10-100 MG/5ML SYRUP 5cc PO Q 4-6 hr prn ROBITUSSIN A-C 10-100 MG/5ML SYRUP 22573989640 No Longer Active Shaylachance Jimenez ADVAIR DISKUS 100-50 MCG/DOSE MISC 1 puff BID FLUTICASONE-SALMETEROL 59298281919 No Longer Active Shayla Jimenez PREDNISONE 20 MG TAB 3 daily for 2 days, 2 daily for 2 days, 1 daily for 3 days PREDNISONE 35090258127 No Longer Active Shaylachance Mixonner MANPREET 180 MG TABS 1 PO daily FEXOFENADINE HCL 54669663457 No Longer Active Shayla Jackeline Jimenez LOTENSIN 40 MG TABS 1 PO daily BENAZEPRIL HCL 54611444688 Active Shaylachance Jimenez HYDROCODONE-ACETAMINOPHEN 5-500 MG TABS 1 po q 6 hrs. prn pain HYDROCODONE-ACETAMINOPHEN 05085238502 No Longer Active Shaylachance Jimenez TYLENOL 500 MG TAB 2 PO Qhrs prn ACETAMINOPHEN 86519989781 No Longer Active Shayla Jimenez LORTAB 5 5-500 MG TABS 1 to 2 PO Q6hrs prn ACETAMINOPHEN-HYDROCODONE 77117815392 No Longer Active Shayla Jimenez DYAZIDE 37.5-25 MG CAPS 1 PO daily TRIAMTERENE-HCTZ 44099419969 Active Shaylachance Jimenez HYDROCHLOROTHIAZIDE 25 MG TABS 1 daily. HYDROCHLOROTHIAZIDE 98901671473 No Longer Active Shayla Jimenez NORVASC 5 MG TAB 1 PO QD AMLODIPINE BESYLATE 04516939408 No Longer Active Shayla Jimenez Immunizations Vaccine Administration Date Value Standard Description Influenza vaccine given done influenza virus vaccine, unspecified formulation Vital Signs Date Name Value Unit Range Description blood pressure, diastolic - 8462-4 90 mm[Hg] BP [place] blood pressure, systolic - 8480-6 142 mm[Hg] BP sys pulse rate E&M - 8867-4 102 /min Heart rate respiratory rate E&M - 9279-1 14 /min Resp rate temperature E&M 98.7 [degF] Body temperature blood pressure, diastolic - 8462-4 84 mm[Hg] BP [place] blood pressure, systolic - 8480-6 132 mm[Hg] [...] mg/dL Encounters Code Encounter Date Provider Facility CPT-18560 Ofc Vst, Est Level III 16:04:12 CDT Shayla Jimenez DO, FACP CPT-40053 Ofc Vst, Est Level IV 20:12:26 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 Shayla Jimenez DO, FACP CPT-73877 Ofc Vst, Est Level III 16:23:57 CDT Shayla Jimenez DO, FACP CPT-52383 Ofc Vst, Est Level III 20:32:21 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 Shayla Jimenez DO, FACP CPT-61504 Ofc Vst, Est Level IV 14:30:40 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 Shayla Hong Jimenez, DO, FACP CPT-33579 Ofc Vst, Est Level IV 21:36:28 CDT Shayla Jackeline Hong Jimenez, DO, FACP CPT-38187 Ofc Vst, Est Level IV 17:00:43 CDT Shayla Jackeline Hong Jimenez, DO, FACP CPT-37764 Ofc Vst, Est Level IV 16:15:28 CDT Shayla Jackeline Hong Jimenez, DO, FACP CPT-73917 Ofc Vst, Est Level IV 13:40:25 CDT Shayla Jcakeline Hong Jimenez, DO, FACP CPT-00514 Ofc Vst, Est Level IV 14:08:24 CDT Shaylachance Hong Tony, DO, FACP CPT-96926 Ofc Vst, Est Level III 16:11:21 CDT Shayla Jackeline Hong Jimenez, DO, FACP CPT-89102 Ofc Vst, Est Level IV 08:41:50 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 Shaylachance Hong Jimenez, DO, FACP CPT-37610 Ofc Vst, Est Level III 15:21:14 CDT Shayla Hong Tony, DO, FACP CPT-77940 Ofc Vst, Est Level V 11:09:46 CDT Shaylachance Hong Jimenez, DO, FACP CPT-11572 Ofc Vst, Est Level IV 11:38:53 CDT Shayla Hong Tony, DO, FACP CPT-48216 Office Consult, Level IV 15:08:29 CDT Shayla Hong Jimenez, DO, FACP CPT-73795 Ofc Vst, Est Level III 10:32:31 CDT Shayla Jackeline Hong Jimenez, DO, FACP CPT-68061 Ofc Vst, Est Level V 16:21:30 CDT Shaylachance Hong Jimenez, DO, FACP CPT-39304 Ofc Vst, Est Level III 16:34:59 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 Shayla Hong Jimenez, DO, FACP CPT-96958 Ofc Vst, Est Level IV 15:47:00 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 Shayla Hong Jimenez, DO, FACP CPT-19775 Ofc Vst, Est Level IV 10:47:45 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 Shayla Hong Jimenez, DO, FACP CPT-22845 Ofc Vst, Est Level IV 16:03:38 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 Shayla Hong Jimenez, DO, FACP CPT-62725 Ofc Vst, Est Level V 10:34:09 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 Shayla Hong Tony, DO, FACP CPT-29512 Ofc Vst, Est Level IV 15:33:57 CDT Shaylachance Hong Tony, DO, FACP CPT-58102 Ofc Vst, Est Level IV 16:16:24 CDT Shayla Hong Jimenez, DO, FACP CPT-33174 Ofc Vst, Est Level IV 16:08:16 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 Shaylachance Hong Tony, DO, FACP CPT-79095 Ofc Vst, Est Level IV 10:48:11 CDT Shaylachance Hong Jimenez, DO, FACP CPT-89432 Ofc Vst, Est Level IV 11:28:59 CDT Shayla Hong Jimenez, DO, FACP CPT-52950 Ofc Vst, Est Level IV 16:18:27 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 Shayla Jackeline Hong Tony, DO, FACP CPT-52981 Ofc Vst, Est Level IV 11:20:46 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 Shayla Jackeline Hong Jimenez, DO, FACP CPT-86835 Ofc Vst, Est Level V 13:33:16 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 Shayla Jackeline Barryi S Jimenez, DO, FACP CPT-82210 Ofc Vst, Est Level IV 16:07:29 CDT Shayla Jackeline Barryi Gely Jimenez, DO, FACP CPT-02108 Ofc Vst, Est Level IV 09:41:53 CDT Shayla Jackeline Barryi S Jimenez, DO, FACP CPT-74084 Ofc Vst, Est Level IV 16:47:11 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 Shayla Jackeline Barryi S Jimenez, DO, FACP CPT-28090 Ofc Vst, Est Level IV 13:05:18 CDT Shayla Jackeline Hong Tony, DO, FACP CPT-75127 Ofc Vst, Est Level III 16:53:23 CDT Shayla Jackeline Hong Jimenez, DO, FACP CPT-52428 Ofc Vst, Est Level IV 16:04:34 CDT Shayla Jackeline Hong Jimenez, DO, FACP CPT-17730 Ofc Vst, Est Level IV 21:27:13 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 Shayla Jackeline Hong Tony, DO, FACP CPT-94475 Ofc Vst, Est Level III 16:27:35 CDT Shayla Jackleine Mcguire S Jimenez, DO, FACP CPT-90594 Ofc Vst, Est Level IV 16:39:25 CDT Shayla Jackeline Barryi S Tony, DO, FACP CPT-31890 Ofc Vst, Est Level III 16:55:35 CDT Shaylachance Jimenez [facility] [place] CPT-94548 Ofc Vst, Est Level III 16:54:43 CDT Shayla Jackeline Jimenez [facility] [place] CPT-65984 Ofc Vst, Est Level IV 09:20:28 CDT Shayla Jackeline Jimenez [facility] [place] CPT-30213 Ofc Vst, Est Level IV 16:54:13 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 Shayla Jimenez [facility] [place] CPT-56658 Ofc Vst, Est Level III 16:37:40 CDT Shayla Jackeline Jimenez [facility] [place] CPT-01309 Ofc Vst, Est Level IV 11:44:17 CDT Shayla Jackeline Jimenez [facility] [place] CPT-58295 Ofc Vst, Est Level III 16:17:20 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 Shayla Jackeline Jimenez [facility] [place] CPT-35025 Ofc Vst, Est Level III 17:45:48 CDT Shayla Jackeline Jimenez [facility] [place] CPT-46006 Ofc Vst, Est Level IV 09:23:42 CDT Shayla Jackeline Jimenez [facility] [place] CPT-42792 Ofc Vst, Est Level III 21:31:16 CDT Shayla Jackeline Jimenez [facility] [place] CPT-83462 Ofc Vst, Est Level II 17:28:49 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 Shayla Jimenez [facility] [place] CPT-02149 Ofc Vst, Est Level III 18:24:08 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 Shayla Jimenez [facility] [place] CPT-31714 Ofc Vst, Est Level III 17:48:50 CDT Shayla Jackeline Jimenez [facility] [place] CPT-96049 Ofc Vst, Est Level IV 19:58:07 CDT Shayla Jackeline Jimenez [facility] [place] CPT-27094 Ofc Vst, Est Level IV 17:24:24 CDT Shayla Jackeline Jimenez [facility] [place] CPT-45301 Ofc Vst, Est Level IV 18:48:08 CDT Shayla Jackeline Jimenez [facility] [place] CPT-35675 Ofc Vst, New Level IV 15:16:23 CDT Shayla Jimenez [facility] Procedures Code Procedure Name Date Entry Date Standard Description CPT-89482 Preventive, Est, (40-64) 14:59:52 CDT CPT-97001 Handling of specimen from office to lab 20:32:21 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
--- OUTSIDE RECORDS SUMMARY | 2018-03-30 17:03 | XMS REPORT | Continuity of Care Document ---
Author Author Formerly [facility] Address Unknown Phone Unavailable Allergies Active Description Code Type Severity Reaction Onset Reported/Identified Relationship to Patient Clinical Status Yes amlodipine [id number] Drug Allergy Unknown N/A 02/22/2013 Yes erythromycin base [id number] Drug Allergy Unknown N/A 02/22/2013 Yes Erythromycin Base Drug Allergy N/A N/A 11/23/2013 Yes Norvasc Drug Allergy N/A N/A 11/23/2013 Medications There is no data. Problems Date Dx Coded Attending Type Code Diagnosis Diagnosed By 01/31/2010 Ot 271.3 01/31/2010 Ot 272.4 01/31/2010 Ot 275.0 01/31/2010 Ot 278.00 01/31/2010 Ot 401.9 01/31/2010 Ot 493.90 01/31/2010 Ot 724.3 01/31/2010 Ot V13.59 01/18/2011 Ot 493.92 ASTHMA, UNSPECIFIED, W (ACUTE) EXACERBAT 01/18/2011 Ot 786.09 RESPIRATORY ABNORM NEC 10/06/2011 Ot 250.00 DIAB CARLA WO COMPL, TYPE II OR UNSPEC TY 10/06/2011 Ot 272.0 PURE HYPERCHOLESTEROLEM 10/06/2011 Ot 300.00 ANXIETY STATE NOS 10/06/2011 Ot 401.9 HYPERTENSION NOS 10/06/2011 Ot 493.92 ASTHMA, UNSPECIFIED, W (ACUTE) EXACERBAT 10/06/2011 Ot 530.81 ESOPHAGEAL REFLUX 10/06/2011 Ot 790.29 OTHER ABNORMAL GLUCOSE 10/06/2011 Ot V83.89 OTHER GENETIC CARRIER STATUS 12/04/2011 Ot 356.9 IDIO PERIPH NEURPTHY NOS 12/04/2011 Ot 729.5 PAIN IN LIMB 08/18/2012 Ot 272.4 HYPERLIPIDEMIA NEC/NOS 08/18/2012 Ot 401.9 HYPERTENSION NOS 08/18/2012 Ot 493.92 ASTHMA, UNSPECIFIED, W (ACUTE) EXACERBAT 08/18/2012 Ot 724.3 SCIATICA 08/18/2012 Ot 790.29 OTHER ABNORMAL GLUCOSE 08/18/2012 Ot V83.89 OTHER GENETIC CARRIER STATUS 09/28/2012 DAMIÁN SALAS, KAYLEIGH A V04.81 FLU DX (3 YRS AND ABOVE, IM) 09/28/2012 V04.81 FLU DX (3 YRS AND ABOVE, IM) 09/28/2012 DAMIÁN SALAS, KAYLEIGH A V04.81 FLU DX (3 YRS AND ABOVE, IM) 09/28/2012 DAMIÁN SALAS, KAYLEIGH A V04.81 FLU DX (3 YRS AND ABOVE, IM) 09/28/2012 DAMIÁN SALAS, KAYLEIGH A V04.81 FLU DX (3 YRS AND ABOVE, IM) 02/27/2013 Ot 250.00 DIAB CARLA WO COMPL, TYPE II OR UNSPEC TY 02/27/2013 Ot 272.4 HYPERLIPIDEMIA NEC/NOS 02/27/2013 Ot 278.00 OBESITY, NOS 02/27/2013 Ot 300.00 ANXIETY STATE NOS 02/27/2013 Ot 338.29 OTHER CHRONIC PAIN 02/27/2013 Ot 401.9 HYPERTENSION NOS 02/27/2013 Ot 477.9 ALLERGIC RHINITIS NOS 02/27/2013 Ot 478.5 VOCAL CORD DISEASE NEC 02/27/2013 Ot 493.02 EXTRINSIC ASTHMA, W (ACUTE) EXACERBATION 02/27/2013 Ot 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 02/27/2013 Ot V85.43 BODY MASS INDEX 50.0-59.9, ADULT 08/13/2013 NOAH SPIVEY, FABIENNE Ot 250.00 DIAB CARLA WO COMPL, TYPE II OR UNSPEC TY 08/13/2013 NOAH DO, FABIENNE Ot 272.4 HYPERLIPIDEMIA NEC/NOS 08/13/2013 ZAMORA DO, FABIENNE Ot 278.00 OBESITY, NOS 08/13/2013 ZAMORA DO, FABIENNE Ot 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 08/13/2013 NOAH SPIVEY FABIENNE Ot 355.6 PLANTAR NERVE LESION 08/13/2013 NOAH SPIVEY FABIENNE Ot 401.9 HYPERTENSION NOS 08/13/2013 NOAH SPIVEY, FABIENNE Ot 493.90 ASTHMA, UNSPECIFIED 08/13/2013 NOAH SPIVEY FABIENNE Ot 518.52 OTH PULMONARY INSUFFICIENCY, NEC, FOLLOW 08/13/2013 NOAH SPIVEY FABIENNE Ot 715.90 OSTEOARTHROS NOS-UNSPEC 08/13/2013 FABIENNE ZAMORA DO Ot 736.79 ACQ ANKLE-FOOT DEF NEC 08/13/2013 FABIENNE ZAMORA DO Ot V85.43 BODY MASS INDEX 50.0-59.9, ADULT 10/03/2013 SOL MCLEOD, REGINA Montoya Ot 493.92 ASTHMA, UNSPECIFIED, W (ACUTE) EXACERBAT 10/03/2013 SOL MCLEOD, REGINA Montoya Ot 786.2 COUGH 10/16/2013 JENNY TORRES DO Ot 327.23 OBSTRUCTIVE SLEEP APNEA (ADULT) (PEDIATR 11/23/2013 RAJOTTE RESIDENTIAL PROPERTY MANAGER, KAYLEIGH A 327.23 sleep apnea 11/23/2013 CLOEE RESIDENTIAL PROPERTY MANAGER, KAYLEIGH A 461.9 SINUSITIS ACUTE 11/23/2013 DAMIÁN RESIDENTIAL PROPERTY MANAGER, KAYLEIGH A 327.23 sleep apnea 11/23/2013 DAMIÁN RESIDENTIAL PROPERTY MANAGER, KAYLEIGH A 461.9 SINUSITIS ACUTE 11/22/2014 Ot 493.90 11/22/2014 Ot V76.12 11/22/2014 Ot 722.10 11/22/2014 Ot 355.6 11/22/2014 Ot V72.63 11/22/2014 Ot V74.8 11/22/2014 Ot 355.6 11/22/2014 AVALOS DPM, CHRISTOPHE P Ot 355.6 11/22/2014 AVALOS DPM, CHRISTOPHE P Ot V72.63 11/22/2014 ROBBIE DPM, CHRISTOPHE P Ot V74.8 11/22/2014 JENNY TORRES DO Ot 482.9 11/22/2014 JENNY TORRES DO Ot 786.09 01/21/2015 Ot 717.7 CHONDROMALACIA PATELLAE 01/21/2015 Ot 733.92 CHONDROMALACIA 01/21/2015 Ot 836.0 TEAR MED MENISC KNEE-CUR 01/21/2015 Ot E000.8 OTHER EXTERNAL CAUSE STATUS 01/21/2015 Ot E927.0 OVEREXERTION FROM SUDDEN STRENUOUS MOVEM 02/06/2015 Ot 717.7 02/06/2015 Ot 836.0 02/06/2015 Ot E000.8 02/06/2015 Ot E928.9 02/06/2015 Ot V72.81 02/06/2015 Ot V74.8 04/02/2015 Ot 493.90 04/02/2015 Ot V76.12 04/02/2015 Ot 722.10 04/02/2015 Ot 355.6 04/02/2015 Ot V72.63 04/02/2015 Ot V74.8 04/02/2015 Ot 355.6 04/02/2015 AVALOS DPM, CHRISTOPHE P Ot 355.6 04/02/2015 AVALOS DPM, CHRISTOPHE P Ot V72.63 04/02/2015 AVALOS DPM, CHRISTOPHE P Ot V74.8 04/02/2015 JENNY TORRES DO Ot 482.9 04/02/2015 JENNY TORRES DO Ot 786.09 04/02/2015 Ot 717.7 04/02/2015 Ot 836.0 04/02/2015 Ot E000.8 04/02/2015 Ot E928.9 04/02/2015 Ot V72.81 04/02/2015 Ot V74.8 08/01/2015 ZAMORA DO, FABIENNE Ot 244.9 08/01/2015 ZAMORA DO, FABIENNE Ot 250.00 08/01/2015 ZAMORA DO, FABIENNE Ot 272.0 08/01/2015 ZAMORA DO, FABIENNE Ot 272.4 08/01/2015 ZAMORA DO, FABIENNE Ot 278.00 08/01/2015 ZAMORA DO, FABIENNE Ot 327.23 08/01/2015 ZAMORA DO, FABIENNE Ot 401.9 08/01/2015 ZAMORA DO, FABIENNE Ot 461.9 08/01/2015 ZAMORA DO, FABIENNE Ot 477.9 08/01/2015 ZAMORA DO, FABIENNE Ot 493.01 08/01/2015 ZAMORA DO, FABIENNE Ot V85.43 08/04/2015 ZAMORA DO, FABIENNE Ot 244.9 HYPOTHYROIDISM NOS 08/04/2015 ZAMORA DO, FABIENNE Ot 250.00 08/04/2015 ZAMORA DO, FABIENNE Ot 250.02 DIAB CARLA WO COMPL, TYPE II OR UNSPEC TY 08/04/2015 ZAMORA DO, FABIENNE Ot 272.0 PURE HYPERCHOLESTEROLEM 08/04/2015 ZAMORA DO, FABIENNE Ot 272.4 HYPERLIPIDEMIA NEC/NOS 08/04/2015 ZAMORA DO, FABIENNE Ot 278.00 OBESITY, NOS 08/04/2015 ZAMORA DO, FABIENNE Ot 327.23 OBSTRUCTIVE SLEEP APNEA (ADULT) (PEDIATR 08/04/2015 NOAH SPIVEY, FABIENNE Ot 401.9 HYPERTENSION NOS 08/04/2015 NOAH SPIVEY, FABIENNE Ot 461.9 ACUTE SINUSITIS NOS 08/04/2015 NOAH SPIVEY FABIENNE Ot 477.9 ALLERGIC RHINITIS NOS 08/04/2015 NOAH SPIVEY FABIENNE Ot 493.01 EXT ASTHMA W STATUS ASTH 08/04/2015 NOAH SPIVEY, FABIENNE Ot V85.43 BODY MASS INDEX 50.0-59.9, ADULT 09/23/2015 Ot 493.90 09/23/2015 Ot V76.12 09/23/2015 Ot 722.10 09/23/2015 Ot 355.6 09/23/2015 Ot V72.63 09/23/2015 Ot V74.8 09/23/2015 Ot 355.6 09/23/2015 AVALOS DPM, CHRISTOPHE P Ot 355.6 09/23/2015 AVALOS DPM, CHRISTOPHE P Ot V72.63 09/23/2015 ROBBIE DPM, CHRISTOPHE P Ot V74.8 09/23/2015 JENNY TORRES DO Ot 482.9 09/23/2015 JENNY TORRES DO Ot 786.09 09/23/2015 Ot 717.7 09/23/2015 Ot 836.0 09/23/2015 Ot E000.8 09/23/2015 Ot E928.9 09/23/2015 Ot V72.81 09/23/2015 Ot V74.8 09/23/2015 VIOLETA STOLL MD Ot K76.0 FATTY (CHANGE OF) LIVER, NOT ELSEWHERE C 09/23/2015 VIOLETA STOLL MD Ot N39.0 URINARY TRACT INFECTION, SITE NOT SPECIF 01/14/2016 Ot 493.90 01/14/2016 Ot V76.12 01/14/2016 Ot 722.10 01/14/2016 Ot 355.6 01/14/2016 Ot V72.63 01/14/2016 Ot V74.8 01/14/2016 Ot 355.6 01/14/2016 AVALOS DPM, CHRISTOPHE P Ot 355.6 01/14/2016 ROBBIE DPM, CHRISTOPHE P Ot V72.63 01/14/2016 AVALOS DPM, CHRISTOPHE P Ot V74.8 01/14/2016 JENNY TORRES DO Ot 482.9 01/14/2016 BRIAN JENNY Ot 786.09 01/14/2016 Ot 717.7 01/14/2016 Ot 836.0 01/14/2016 Ot E000.8 01/14/2016 Ot E928.9 01/14/2016 Ot V72.81 01/14/2016 Ot V74.8 02/27/2016 Ot 493.90 ASTHMA, UNSPECIFIED 02/27/2016 Ot V76.12 OT SCREEN MAMMO-MALIGN NEOPLASM OF EVIE 02/27/2016 Ot 722.10 LUMBAR DISC DISPLACEMENT 02/27/2016 Ot 355.6 PLANTAR NERVE LESION 02/27/2016 Ot V72.63 PRE- PROCEDURAL LABORATORY EXAMINATION 02/27/2016 Ot V74.8 SCREEN- BACTERIAL DIS NEC 02/27/2016 Ot 355.6 PLANTAR NERVE LESION 02/27/2016 ROBBIE DPM, CHRISTOPHE Hanonn Ot 355.6 PLANTAR NERVE LESION 02/27/2016 ROBBIE MARTINEZ, CHRISTOPHE Hannon Ot V72.63 PRE-PROCEDURAL LABORATORY EXAMINATION 02/27/2016 ROBBIE MARTINEZ, CHRISTOPHE Hannon Ot V74.8 SCREEN-BACTERIAL DIS NEC 02/27/2016 BRIAN SPIVEYJENNY Ot 482.9 BACTERIAL PNEUMONIA NOS 02/27/2016 BRIAN SPIEVY JENNY Helen Ot 786.09 RESPIRATORY ABNORM NEC 02/27/2016 Ot 717.7 CHONDROMALACIA PATELLAE 02/27/2016 Ot 836.0 TEAR MED MENISC KNEE-CUR 02/27/2016 Ot E000.8 OTHER EXTERNAL CAUSE STATUS 02/27/2016 Ot E928.9 ACCIDENT NOS 02/27/2016 Ot V72.81 EXAM-PRE- OPERATIVE CARDIOVASCULAR 02/27/2016 Ot V74.8 SCREEN- BACTERIAL DIS NEC 02/27/2016 Ot 493.90 ASTHMA, UNSPECIFIED 02/27/2016 Ot V76.12 OT SCREEN MAMMO-MALIGN NEOPLASM OF EVIE 02/27/2016 Ot 722.10 LUMBAR DISC DISPLACEMENT 02/27/2016 Ot 355.6 PLANTAR NERVE LESION 02/27/2016 Ot V72.63 PRE- PROCEDURAL LABORATORY EXAMINATION 02/27/2016 Ot V74.8 SCREEN- BACTERIAL DIS NEC 02/27/2016 Ot 355.6 PLANTAR NERVE LESION 02/27/2016 ROBBIE DPM, CHRISTOPHE Hannon Ot 355.6 PLANTAR NERVE LESION 02/27/2016 ROBBIE MARTINEZ, CHRISTOPHE Hannon Ot V72.63 PRE-PROCEDURAL LABORATORY EXAMINATION 02/27/2016 CHRISTOPHE AVALOS DPM Ot V74.8 SCREEN-BACTERIAL DIS NEC 02/27/2016 JENNY TORRES DO Ot 482.9 BACTERIAL PNEUMONIA NOS 02/27/2016 JENNY TORRES DO Ot 786.09 RESPIRATORY ABNORM NEC 02/27/2016 Ot 717.7 CHONDROMALACIA PATELLAE 02/27/2016 Ot 836.0 TEAR MED MENISC KNEE-CUR 02/27/2016 Ot E000.8 OTHER EXTERNAL CAUSE STATUS 02/27/2016 Ot E928.9 ACCIDENT NOS 02/27/2016 Ot V72.81 EXAM-PRE- OPERATIVE CARDIOVASCULAR 02/27/2016 Ot V74.8 SCREEN- BACTERIAL DIS NEC 08/06/2016 Ot 493.90 ASTHMA, UNSPECIFIED 08/06/2016 Ot V76.12 OTH SCREEN MAMMO-MALIGN NEOPLASM OF EVIE 08/06/2016 Ot 722.10 LUMBAR DISC DISPLACEMENT 08/06/2016 Ot 355.6 PLANTAR NERVE LESION 08/06/2016 Ot V72.63 PRE- PROCEDURAL LABORATORY EXAMINATION 08/06/2016 Ot V74.8 SCREEN- BACTERIAL DIS NEC 08/06/2016 Ot 355.6 PLANTAR NERVE LESION 08/06/2016 CHRISTOPHE AVALOS DPM Ot 355.6 PLANTAR NERVE LESION 08/06/2016 CHRISTOPHE AVALOS DPM Ot V72.63 PRE-PROCEDURAL LABORATORY EXAMINATION 08/06/2016 CHRISTOPHE AVALOS DPM Ot V74.8 SCREEN-BACTERIAL DIS NEC 08/06/2016 JENNY TORRES DO Ot 482.9 BACTERIAL PNEUMONIA NOS 08/06/2016 JENNY TORRES DO Ot 786.09 RESPIRATORY ABNORM NEC 08/06/2016 Ot 717.7 CHONDROMALACIA PATELLAE 08/06/2016 Ot 836.0 TEAR MED MENISC KNEE-CUR 08/06/2016 Ot E000.8 OTHER EXTERNAL CAUSE STATUS 08/06/2016 Ot E928.9 ACCIDENT NOS 08/06/2016 Ot V72.81 EXAM-PRE- OPERATIVE CARDIOVASCULAR 08/06/2016 Ot V74.8 SCREEN- BACTERIAL DIS NEC 08/09/2016 JENNY TORRES DO Ot E66.9 OBESITY, UNSPECIFIED 08/09/2016 JENNY TORRES DO Ot G47.33 OBSTRUCTIVE SLEEP APNEA (ADULT) (PEDIATR 08/09/2016 JENNY TORRES DO Ot M06.9 RHEUMATOID ARTHRITIS, UNSPECIFIED 08/17/2016 JENNY TORRES DO Ot E66.9 OBESITY, UNSPECIFIED 08/17/2016 JENNY TORRES DO Ot G47.33 OBSTRUCTIVE SLEEP APNEA (ADULT) (PEDIATR 08/17/2016 JENNY TORRES DO Ot M06.9 RHEUMATOID ARTHRITIS, UNSPECIFIED 09/02/2016 Ot 493.90 ASTHMA, UNSPECIFIED 09/02/2016 Ot V76.12 OT SCREEN MAMMO-MALIGN NEOPLASM OF EVIE 09/02/2016 Ot 722.10 LUMBAR DISC DISPLACEMENT 09/02/2016 Ot 355.6 PLANTAR NERVE LESION 09/02/2016 Ot V72.63 PRE- PROCEDURAL LABORATORY EXAMINATION 09/02/2016 Ot V74.8 SCREEN- BACTERIAL DIS NEC 09/02/2016 Ot 355.6 PLANTAR NERVE LESION 09/02/2016 CHRISTOPHE AVALOS DPM P Ot 355.6 PLANTAR NERVE LESION 09/02/2016 ROBBIE MARTINEZ, CHRISTOPHE Hannon Ot V72.63 PRE-PROCEDURAL LABORATORY EXAMINATION 09/02/2016 ROBBIE MARTINEZ, CHRISTOPHE Hannon Ot V74.8 SCREEN-BACTERIAL DIS NEC 09/02/2016 JENNY TORRES DO Ot 482.9 BACTERIAL PNEUMONIA NOS 09/02/2016 JENNY TORRES DO Ot 786.09 RESPIRATORY ABNORM NEC 09/02/2016 Ot 717.7 CHONDROMALACIA PATELLAE 09/02/2016 Ot 836.0 TEAR MED MENISC KNEE-CUR 09/02/2016 Ot E000.8 OTHER EXTERNAL CAUSE STATUS 09/02/2016 Ot E928.9 ACCIDENT NOS 09/02/2016 Ot V72.81 EXAM-PRE- OPERATIVE CARDIOVASCULAR 09/02/2016 Ot V74.8 SCREEN- BACTERIAL DIS NEC 09/02/2016 JENNY TORRES DO Ot E66.9 OBESITY, UNSPECIFIED 09/02/2016 JENNY TORRES DO Ot G47.33 OBSTRUCTIVE SLEEP APNEA (ADULT) (PEDIATR 09/02/2016 JENNY TORRES DO Ot M06.9 RHEUMATOID ARTHRITIS, UNSPECIFIED 12/29/2016 JENNY TORRES DO Ot E11.65 TYPE 2 DIABETES MELLITUS WITH HYPERGLYCE 12/29/2016 JENNY TORRES DO Ot E66.9 OBESITY, UNSPECIFIED 12/29/2016 JENNY TORRES DO Ot F39 UNSPECIFIED MOOD [AFFECTIVE] DISORDER 12/29/2016 JENNY TORRES DO Ot G47.10 HYPERSOMNIA, UNSPECIFIED 12/29/2016 JENNY TORRES DO Ot J06.9 ACUTE UPPER RESPIRATORY INFECTION, UNSPE 02/20/2017 JENNY TORRES DO Ot E11.65 TYPE 2 DIABETES MELLITUS WITH HYPERGLYCE 02/20/2017 JENNY TORRES DO Ot E66.9 OBESITY, UNSPECIFIED 02/20/2017 JENNY TORRES DO Ot F39 UNSPECIFIED MOOD [AFFECTIVE] DISORDER 02/20/2017 JENNY TORRES DO Ot G47.10 HYPERSOMNIA, UNSPECIFIED 02/20/2017 JENNY TORRES DO Ot J06.9 ACUTE UPPER RESPIRATORY INFECTION, UNSPE 02/24/2017 Ot 722.10 LUMBAR DISC DISPLACEMENT 02/24/2017 Ot 355.6 PLANTAR NERVE LESION 02/24/2017 Ot V72.63 PRE- PROCEDURAL LABORATORY EXAMINATION 02/24/2017 Ot V74.8 SCREEN- BACTERIAL DIS NEC 02/24/2017 Ot 355.6 PLANTAR NERVE LESION 02/24/2017 ROBBIE DPHelen, CHRISTOPHE Hannon Ot 355.6 PLANTAR NERVE LESION 02/24/2017 ROBBIE MARTINEZ, CHRISTOPHE Hannon Ot V72.63 PRE-PROCEDURAL LABORATORY EXAMINATION 02/24/2017 ROBBIE MARTINEZ, CHRISTOPHE Hannon Ot V74.8 SCREEN-BACTERIAL DIS NEC 02/24/2017 JENNY TORRES DO Ot 482.9 BACTERIAL PNEUMONIA NOS 02/24/2017 JENNY TORRES DO Ot 786.09 RESPIRATORY ABNORM NEC 02/24/2017 Ot 717.7 CHONDROMALACIA PATELLAE 02/24/2017 Ot 836.0 TEAR MED MENISC KNEE-CUR 02/24/2017 Ot E000.8 OTHER EXTERNAL CAUSE STATUS 02/24/2017 Ot E928.9 ACCIDENT NOS 02/24/2017 Ot V72.81 EXAM-PRE- OPERATIVE CARDIOVASCULAR 02/24/2017 Ot V74.8 SCREEN- BACTERIAL DIS NEC 02/24/2017 JENNY TORRES DO Ot E66.9 OBESITY, UNSPECIFIED 02/24/2017 JENNY TORRES DO Ot G47.33 OBSTRUCTIVE SLEEP APNEA (ADULT) (PEDIATR 02/24/2017 JENNY TORRES DO Ot M06.9 RHEUMATOID ARTHRITIS, UNSPECIFIED 02/26/2017 JENNY TORRES DO Ot E11.65 TYPE 2 DIABETES MELLITUS WITH HYPERGLYCE 02/26/2017 JENNY TORRES DO Ot E66.9 OBESITY, UNSPECIFIED 02/26/2017 JENNY TORRES DO Ot F39 UNSPECIFIED MOOD [AFFECTIVE] DISORDER 02/26/2017 JENNY TORRES DO Ot G47.10 HYPERSOMNIA, UNSPECIFIED 02/26/2017 JENNY TORRES DO Ot J06.9 ACUTE UPPER RESPIRATORY INFECTION, UNSPE 03/19/2017 Ot 722.10 LUMBAR DISC DISPLACEMENT 03/19/2017 Ot 355.6 PLANTAR NERVE LESION 03/19/2017 Ot V72.63 PRE- PROCEDURAL LABORATORY EXAMINATION 03/19/2017 Ot V74.8 SCREEN- BACTERIAL DIS NEC 03/19/2017 Ot 355.6 PLANTAR NERVE LESION 03/19/2017 ROBBIE DPHelen, CHRISTOPHE Hannon Ot 355.6 PLANTAR NERVE LESION 03/19/2017 ROBBIE MARTINEZ, CHRISTOPHE Hannon Ot V72.63 PRE-PROCEDURAL LABORATORY EXAMINATION 03/19/2017 ROBBIE MARTINEZ, CHRISTOPHE Hannon Ot V74.8 SCREEN-BACTERIAL DIS NEC 03/19/2017 JENNY TORRES DO Ot 482.9 BACTERIAL PNEUMONIA NOS 03/19/2017 JENNY TORRES DO Ot 786.09 RESPIRATORY ABNORM NEC 03/19/2017 Ot 717.7 CHONDROMALACIA PATELLAE 03/19/2017 Ot 836.0 TEAR MED MENISC KNEE-CUR 03/19/2017 Ot E000.8 OTHER EXTERNAL CAUSE STATUS 03/19/2017 Ot E928.9 ACCIDENT NOS 03/19/2017 Ot V72.81 EXAM-PRE- OPERATIVE CARDIOVASCULAR 03/19/2017 Ot V74.8 SCREEN- BACTERIAL DIS NEC 03/19/2017 JENNY TORRES DO Ot E66.9 OBESITY, UNSPECIFIED 03/19/2017 JENNY TORRES DO Ot G47.33 OBSTRUCTIVE SLEEP APNEA (ADULT) (PEDIATR 03/19/2017 JENNY TORRES DO Ot M06.9 RHEUMATOID ARTHRITIS, UNSPECIFIED 05/03/2017 Ot 722.10 LUMBAR DISC DISPLACEMENT 05/03/2017 Ot 355.6 PLANTAR NERVE LESION 05/03/2017 Ot V72.63 PRE- PROCEDURAL LABORATORY EXAMINATION 05/03/2017 Ot V74.8 SCREEN- BACTERIAL DIS NEC 05/03/2017 Ot 355.6 PLANTAR NERVE LESION 05/03/2017 ROBBIE DPHelen, CHRISTOPHE P Ot 355.6 PLANTAR NERVE LESION 05/03/2017 ROBBIE MARTINEZ, CHRISTOPHE Hannon Ot V72.63 PRE-PROCEDURAL LABORATORY EXAMINATION 05/03/2017 ROBBIE MARTINEZ, CHRISTOPHE Hannon Ot V74.8 SCREEN-BACTERIAL DIS NEC 05/03/2017 JENNY TORRES DO Ot 482.9 BACTERIAL PNEUMONIA NOS 05/03/2017 JENNY TORRES DO Ot 786.09 RESPIRATORY ABNORM NEC 05/03/2017 Ot 717.7 CHONDROMALACIA PATELLAE 05/03/2017 Ot 836.0 TEAR MED MENISC KNEE-CUR 05/03/2017 Ot E000.8 OTHER EXTERNAL CAUSE STATUS 05/03/2017 Ot E928.9 ACCIDENT NOS 05/03/2017 Ot V72.81 EXAM-PRE- OPERATIVE CARDIOVASCULAR 05/03/2017 Ot V74.8 SCREEN- BACTERIAL DIS NEC 05/03/2017 JENNY TORRES DO Ot E66.9 OBESITY, UNSPECIFIED 05/03/2017 JENNY TORRES DO Ot G47.33 OBSTRUCTIVE SLEEP APNEA (ADULT) (PEDIATR 05/03/2017 JENNY TORRES DO Ot M06.9 RHEUMATOID ARTHRITIS, UNSPECIFIED 06/01/2017 Ot 355.6 PLANTAR NERVE LESION 06/01/2017 Ot V72.63 PRE- PROCEDURAL LABORATORY EXAMINATION 06/01/2017 Ot V74.8 SCREEN- BACTERIAL DIS NEC 06/01/2017 Ot 355.6 PLANTAR NERVE LESION 06/01/2017 CHRISTOPHE AVALOS DPM Ot 355.6 PLANTAR NERVE LESION 06/01/2017 CHRISTOPHE AVALOS DPM Ot V72.63 PRE-PROCEDURAL LABORATORY EXAMINATION 06/01/2017 CHRISTOPHE AVALOS DPM Ot V74.8 SCREEN-BACTERIAL DIS NEC 06/01/2017 JENNY TORRES DO Ot 482.9 BACTERIAL PNEUMONIA NOS 06/01/2017 JENNY TORRES DO Ot 786.09 RESPIRATORY ABNORM NEC 06/01/2017 Ot 717.7 CHONDROMALACIA PATELLAE 06/01/2017 Ot 836.0 TEAR MED MENISC KNEE-CUR 06/01/2017 Ot E000.8 OTHER EXTERNAL CAUSE STATUS 06/01/2017 Ot E928.9 ACCIDENT NOS 06/01/2017 Ot V72.81 EXAM-PRE- OPERATIVE CARDIOVASCULAR 06/01/2017 Ot V74.8 SCREEN- BACTERIAL DIS NEC 06/01/2017 JENNY TORRES DO Ot E66.9 OBESITY, UNSPECIFIED 06/01/2017 JENNY TORRES DO Ot G47.33 OBSTRUCTIVE SLEEP APNEA (ADULT) (PEDIATR 06/01/2017 JENNY TORRES DO Ot M06.9 RHEUMATOID ARTHRITIS, UNSPECIFIED 09/27/2017 Ot 355.6 PLANTAR NERVE LESION 09/27/2017 Ot V72.63 PRE- PROCEDURAL LABORATORY EXAMINATION 09/27/2017 Ot V74.8 SCREEN- BACTERIAL DIS NEC 09/27/2017 Ot 355.6 PLANTAR NERVE LESION 09/27/2017 ROBBIE DPM, CHRISTOPHE P Ot 355.6 PLANTAR NERVE LESION 09/27/2017 ROBBIE DPM, CHRISTOPHE Hannon Ot V72.63 PRE-PROCEDURAL LABORATORY EXAMINATION 09/27/2017 ROBBIE MARTINEZ, CHRISTOPHE Hannon Ot V74.8 SCREEN-BACTERIAL DIS NEC 09/27/2017 JENNY TORRES DO Ot 482.9 BACTERIAL PNEUMONIA NOS 09/27/2017 JENNY TORRES DO Ot 786.09 RESPIRATORY ABNORM NEC 09/27/2017 Ot 717.7 CHONDROMALACIA PATELLAE 09/27/2017 Ot 836.0 TEAR MED MENISC KNEE-CUR 09/27/2017 Ot E000.8 OTHER EXTERNAL CAUSE STATUS 09/27/2017 Ot E928.9 ACCIDENT NOS 09/27/2017 Ot V72.81 EXAM-PRE- OPERATIVE CARDIOVASCULAR 09/27/2017 Ot V74.8 SCREEN- BACTERIAL DIS NEC 09/27/2017 JENNY TORRES DO Ot E66.9 OBESITY, UNSPECIFIED 09/27/2017 JENNY TORRES DO Ot G47.33 OBSTRUCTIVE SLEEP APNEA (ADULT) (PEDIATR 09/27/2017 JENNY TORRES DO Ot M06.9 RHEUMATOID ARTHRITIS, UNSPECIFIED 10/04/2017 KATHRIN GARCÍA APRN Ot J45.909 UNSPECIFIED ASTHMA, UNCOMPLICATED 10/04/2017 KATHRIN GARCÍA APRN Ot J98.4 OTHER DISORDERS OF LUNG 10/13/2017 KATHRIN GARCÍA APRN Ot J45.909 UNSPECIFIED ASTHMA, UNCOMPLICATED 10/13/2017 KATHRIN GARCÍA APRN Ot J98.4 OTHER DISORDERS OF LUNG Procedures Code Description Performed By Performed On LARYGNOSCOPY AND OTH TRACHEOSCOPY 10/05/2011 04.07 PERIPH NERV EXCISION NEC 08/10/2013 Results There is no data. Encounters ACCT No. Visit Date/Time Discharge Status Pt. Type Provider Facility Loc./Unit Complaint [id number] 08/23/2014 15:10:00 08/23/2014 23:59:59 CLS Outpatient KAYLEIGH STEEL APRN [id number] 11/23/2013 09:50:00 11/23/2013 23:59:59 CLS Outpatient KAYLEIGH STEEL APRN [id number] 08/31/2013 09:46:00 08/31/2013 23:59:59 CLS Outpatient KAYLEIGH STEEL APRN [id number] 09/28/2012 15:32:08 09/28/2012 23:59:59 CLS Outpatient KAYLEIGH STEEL APRN [id number] 09/28/2012 15:16:00 09/28/2012 23:59:59 CLS Outpatient [id number] 02/08/2018 07:17:00 02/08/2018 23:59:59 CLS Preadmit FABIENNE ZAMORA DO [facility] RAD SCREENING [id number] 09/28/2017 07:57:00 09/28/2017 23:59:59 CLS Outpatient KATHRIN GARCÍA APRN [facility] RT J98.4 RESTIRCTIVE LUNG DISEASE [id number] 02/21/2017 15:00:00 02/21/2017 23:59:59 CLS Preadmit JENNY TORRES DO [facility] PULM EXCESSVIE SLEEPINESS, OBESITY,MOOD DISORDER [id number] 11/22/2016 14:51:00 02/20/2017 00:01:00 DIS Outpatient JENNY TORRES DO [facility] PULM EXCESSVIE SLEEPINESS, OBESITY,MOOD DISORDER [id number] 08/04/2016 16:04:00 08/04/2016 23:59:59 CLS Outpatient JENNY TORRES DO [facility] RT RALPH,OBESITY,RA [id number] 09/23/2015 20:31:00 09/23/2015 22:57:00 DIS Emergency VIOLETA STOLL MD [facility] ER LOWER ABD PAIN [id number] 07/31/2015 15:19:00 08/04/2015 11:00:00 DIS Inpatient FABIENNE ZAMORA DO [facility] 4TH STATUS ASTHMATICUS [id number] 10/15/2013 20:04:00 10/16/2013 05:35:00 DIS Outpatient JENNY TORRES DO [facility] SLEEP SNORING,HTN [id number] 10/03/2013 10:12:00 10/03/2013 12:40:00 DIS Emergency SOL MCLEOD, REGINA Montoya [facility] ER ASTHMA COUGH/SOA [id number] 08/16/2013 14:22:00 08/16/2013 23:59:59 CLS Outpatient JENNY TORRES DO [facility] RAD BACTERIAL PNEUMONIA, DYSPENA [id number] 08/10/2013 13:24:00 08/13/2013 14:00:00 DIS Inpatient FABIENNE ZAMORA DO [facility] 4TH NEUROMA 3RD INTERSPACE RIGHT FOOT [id number] 08/08/2013 15:32:00 08/08/2013 23:59:59 CLS Outpatient CHRISTOPHE AVALOS DPM [facility] PREOP NEUROMA 33RD INTERSPACE RIGHT FOOT [id number] 01/21/2015 07:30:00 Document Registration [id number] 01/20/2015 15:22:00 Document Registration [id number] 11/22/2014 11:23:00 Document Registration [id number] 02/22/2013 11:33:00 Document Registration [id number] 08/17/2012 11:39:00 Document Registration [id number] 05/26/2012 05:36:00 Document Registration [id number] 05/18/2012 12:37:00 Document Registration [id number] 12/10/2011 08:10:00 Document Registration [id number] 12/04/2011 16:02:00 Document Registration [id number] 10/01/2011 10:47:00 Document Registration [id number] 03/17/2011 13:59:00 Document Registration [id number] 03/17/2011 07:09:00 Document Registration [id number] 01/18/2011 09:31:00 Document Registration [id number] 01/30/2010 11:44:00 Document Registration [id number] 12/30/2016 10:32:00 12/30/2016 23:59:00 DIS Outpatient Avery Syed
[2018-03-30 17:17] LABS: BASOPHILS # (AUTO) 0.1 10^3/uL (0.0-0.1); BASOPHILS % (AUTO) 1 % (0-10); EOSINOPHILS % (AUTO) 0 % (0-10); HEMATOCRIT 40 % (35-52); HEMOGLOBIN 13.3 G/DL (11.5-16.0); LYMPHOCYTES # (AUTO) 1.6 X 10^3 (1.0-4.0); LYMPHOCYTES % (AUTO) 22 % (12-44); MEAN CORPUSCULAR HEMOGLOBIN 32 PG (25-34); MEAN CORPUSCULAR HGB CONC 33 G/DL (32-36); MEAN CORPUSCULAR VOLUME 96 FL (80-99); MONOCYTES # (AUTO) 0.6 X 10^3 (0.0-1.0); MONOCYTES % (AUTO) 9 % (0-12); NEUTROPHILS % (AUTO) 68 % (42-75); PLATELET COUNT 251 10^3/uL (130-400); RED BLOOD COUNT 4.14 10^6/uL (4.35-5.85); RED CELL DISTRIBUTION WIDTH 14.2 % (10.0-14.5); WHITE BLOOD COUNT 7.3 10^3/uL (4.3-11.0)
[2018-03-30 17:19] LABS: BILIRUBIN,URINE NEGATIVE (NEGATIVE); CLARITY,URINE CLEAR; COLOR,URINE YELLOW; GLUCOSE, URINE (UA) NEGATIVE (NEGATIVE); KETONES,URINE NEGATIVE (NEGATIVE); LEUKOCYTE ESTERASE ,URINE NEGATIVE (NEGATIVE); NITRITE,URINE NEGATIVE (NEGATIVE); PH,URINE 6.5 (5-9); PROTEIN,URINE NEGATIVE (NEGATIVE); UROBILINOGEN,URINE NORMAL (NORMAL)
[2018-03-30 17:27] LABS: WBC,URINE RARE /HPF
[2018-03-30 17:28] LABS: PROTHROMBIN TIME PATIENT 13.6 SEC (12.2-14.7)
[2018-03-30 17:37] LABS: ALBUMIN 4.1 GM/DL (3.2-4.5); BILIRUBIN,TOTAL 0.8 MG/DL (0.1-1.0); CALCIUM 9.5 MG/DL (8.5-10.1); CREATININE SERUM 1.11 MG/DL (0.60-1.30); POTASSIUM 3.6 MMOL/L (3.6-5.0); TOTAL PROTEIN 7.6 GM/DL (6.4-8.2)
[2018-03-30] MEDS ORDERED: VANCOMYCIN 2000 MG/NS 500 ML IVPB IV NR ×2 (18:30)
[2018-03-30 19:26] VITALS: BP 127/58
[2018-03-30] MEDS: CATHETER FLUSH 10 ML SYR IV SCH (22:43)
[2018-03-30] MEDS: PIPERACILLIN SODIUM/TAZOBACTAM 4.5 GM in D5W 100 ML IVPB 100 ML IV SCH (22:44)
[2018-03-31 00:05] VITALS: BP 106/63
[2018-03-31 04:16] VITALS: BP 138/76
[2018-03-31 04:51] LABS: BASOPHILS % (AUTO) 0 % (0-10); EOSINOPHILS # (AUTO) 0.1 10^3/uL (0.0-0.3); EOSINOPHILS % (AUTO) 1 % (0-10); HEMATOCRIT 36 % (35-52); HEMOGLOBIN 11.8 G/DL (11.5-16.0); LYMPHOCYTES # (AUTO) 1.6 X 10^3 (1.0-4.0); LYMPHOCYTES % (AUTO) 28 % (12-44); MEAN CORPUSCULAR HEMOGLOBIN 32 PG (25-34); MEAN CORPUSCULAR HGB CONC 33 G/DL (32-36); MEAN CORPUSCULAR VOLUME 97 FL (80-99); MEAN PLATELET VOLUME 10.2 FL (7.4-10.4); MONOCYTES # (AUTO) 0.7 X 10^3 (0.0-1.0); MONOCYTES % (AUTO) 12 % (0-12); NEUTROPHILS # (AUTO) 3.4 X 10^3 (1.8-7.8); NEUTROPHILS % (AUTO) 59 % (42-75); PLATELET COUNT 218 10^3/uL (130-400); RED BLOOD COUNT 3.71 10^6/uL (4.35-5.85); RED CELL DISTRIBUTION WIDTH 14.4 % (10.0-14.5); WHITE BLOOD COUNT 5.7 10^3/uL (4.3-11.0)
[2018-03-31 05:10] LABS: CALCIUM 8.7 MG/DL (8.5-10.1); CREATININE SERUM 0.96 MG/DL (0.60-1.30); POTASSIUM 3.5 MMOL/L (3.6-5.0)
[2018-03-31] MEDS: VANCOMYCIN 1,750 MG/NS 500 ML IVPB IV SCH ×4 (06:17→19:21)
[2018-03-31] MEDS: CATHETER FLUSH 10 ML SYR IV SCH ×3 (06:17→22:17)
[2018-03-31] MEDS: PIPERACILLIN SODIUM/TAZOBACTAM 4.5 GM in D5W 100 ML IVPB 100 ML IV SCH ×3 (06:17→22:18)
[2018-03-31 08:00] VITALS: BP 108/56
[2018-03-31] MEDS ORDERED: RT-ADVAIR HFA 115/21 MCG PER PUFF IH SCH (08:00)
--- NOTE | 2018-03-31 08:06 | History & Physical-Hospitalist ---
History of Present Illness HPI/Chief Complaint Pt is a 58yoCF with a PMH of RA on Methotrexate and Humira, HTN,and hypothyroidism who presented as a direct admission due to worsening abdominal wall cellulitis. She states her symptoms started 2 weeks ago. She thought she had a bug bite and started putting neosporin on it at home. It continued to worsen prompting her to seek evaluation at her PCP's office on 03/27 where she was started on Bactrim. She continued to get worse and was eventually sent home from work on 03/30 due to a fever. She was seen again at her PCP's and decision was made for admission due to failing outpatient antibiotics. She denies any previous history, any known insect bites, or any contacts with similar illness. She states since arrival last night and starting on IV antibiotics her symptoms have remained about the same. Source: patient Exam Limitations: no limitations Date Seen 03/31/18 Time Seen by Provider: 08:01 Attending Physician Gabriela Staples MD PCP Shayla Jimenez DO Referring Physician Date of Admission March 30, 2018 at 4:49 pm Home Medications & Allergies Home Medications Reviewed patient Home Medication Reconciliation performed by pharmacy medication reconciliations process environmental technician and/or nursing. Patients Allergies have been reviewed. Allergies Allergies Coded Allergies amlodipine (Verified Allergy, Unknown, 02/22/13) erythromycin base (Verified Allergy, Unknown, 02/22/13) Past Vphltai-Aimpjv-Rqvwqn Hx Past Med/Social Hx: Reviewed Nursing Past Med/Soc Hx Patient Social History Marrital Status: Employed/Student: employed Alcohol Use: Denies Use Recreational Drug Use: No Smoking Status: Never a Smoker Physical Abuse Screen: No Sexual Abuse: No Recent Foreign Travel: No Contact w/other who traveled: No Recent Hopitalizations: No Recent Infectious Disease Expo: No Immunizations Up To Date Tetanus Booster (TDap): Less than 5yrs Pediatric: Yes Date of Pneumonia Vaccine: Oct 14, 2016 Date of Influenza Vaccine: Aug 14, 2014 Seasonal Allergies Seasonal Allergies: Yes Past Medical History Surgeries: Orthopedic Respiratory: Asthma, Chronic Bronchitis Currently Using CPAP: Yes Currently Using BIPAP: No Cardiac: High Cholesterol, Hypertension Neurological: Neuropathy 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: No Sexually Transmitted Disease: No Genitourinary: Bladder Infection Musculoskeletal: Arthritis, Rheumatoid Arthritis, Chronic Back Pain Endocrine: Hypothyroidsim History of Blood Disorders: No Adverse Reaction to Blood [place]: No Family History Alcoholism G8 BROTHER G8 SISTER Alzheimer's disease 19 MOTHER Arthritis 19 FATHER Asthma G8 SISTER Cardiovascular disease 19 FATHER Cataracts 19 FATHER Coronary thrombosis 19 FATHER Deafness or hearing loss SON Diabetes mellitus 19 FATHER G8 SISTER G8 SISTER Drug abuse G8 SISTER Hypertension 19 FATHER G8 SISTER G8 SISTER Kidney disease 19 FATHER Respiratory disorder G8 SISTER G8 SISTER Seizure disorder SON Severe allergy SON Heart Disease, Diabetes, Hypertension Review of Systems Constitutional: No chills; fever EENTM: nose congestion; No blurred vision, No double vision, No throat pain Respiratory: cough; No dyspnea on exertion, No short of breath Cardiovascular: No chest pain, No edema, No palpitations Gastrointestinal: No abdominal pain, No constipation, No diarrhea, No nausea, No vomiting Genitourinary: No dysuria, No frequency Musculoskeletal: No joint pain, No muscle pain Skin: see HPI, lesions Psychiatric/Neurological: Denies Headache, Denies Numbness, Denies Tingling All Other Systems Reviewed Negative Unless Noted: Yes (Negative excepted noted.) Physical Exam Physical Exam Vital Signs Vital Signs - First Documented 03/30/18 03/31/18 16:55 08:57 Temp 97.9 Pulse 92 Resp 20 B/P (MAP) 120/63 (82) Pulse Ox 95 O2 Delivery Room Air FiO2 21 Capillary Refill : General Appearance: No Apparent Distress, Obese HEENT: PERRL/EOMI, Moist Mucous Membranes; No Scleral Icterus (L), No Scleral Icterus (R) Neck: Normal Inspection, Supple; No JVD, No Thyromegaly Respiratory: Lungs Clear, No Accessory Muscle Use, No Respiratory Distress Cardiovascular: Regular Rate, Rhythm, No Murmur Gastrointestinal: Normal Bowel Sounds, Non Tender, Soft Extremity: Normal Capillary Refill, No Calf Tenderness, No Pedal Edema Neurologic/Psychiatric: Alert, Oriented x3, No Motor/Sensory Deficits, Normal Mood/Affect Skin: Normal Color, Warm/Dry, Other (two areas on abdominal with ulceration at center and surrounding erythema, tender and warm) Results Results/Procedures Labs Laboratory Tests 04/01/18 04:45 04/02/18 04:33 Patient resulted labs reviewed. Assessment/Plan Admission Diagnosis Cellulitis Admission Status: Inpatient Order (span 2 midnights) Reason for Inpatient Admission: failed outpatient antibiotics Diagnosis/Problems Diagnosis/Problems (1) Cellulitis Status: Acute Assessment & Plan: Failed bactrim as an outpatient Continue on Vanc and Zosyn Culture from drainage sent yesterday Does not meet sepsis criteria Qualifiers: Site of cellulitis: trunk Site of cellulitis of trunk: abdominal wall Qualified Codes: L03.311 - Cellulitis of abdominal wall (2) Asthma Assessment & Plan: O Breo and Spiriva at home, resume Singulair MAT protocol Qualifiers: Asthma severity: moderate Asthma persistence: persistent Asthma complication type: uncomplicated Qualified Codes: J45.40 - Moderate persistent asthma, uncomplicated (3) Rheumatoid arthritis Status: Chronic Assessment & Plan: On Humira and Methotrexate at home Holding due to infection Qualifiers: Rheumatoid arthritis location: multiple sites Rheumatoid factor presence: unspecified presence Qualified Codes: M06.9 - Rheumatoid arthritis, unspecified (4) Hypothyroidism Status: Chronic Assessment & Plan: Continue on home Synthroid Qualifiers: Hypothyroidism type: acquired Qualified Codes: E03.9 - Hypothyroidism, unspecified (5) Hypokalemia Assessment & Plan: Will replace (6) Hypertension Status: Acute Assessment & Plan: Well controlled with no meds Will resume incrementally as needed Qualifiers: Hypertension type: essential hypertension Qualified Codes: I10 - Essential (primary) hypertension Clinical Quality Measures DVT/VTE Risk/Contraindication: Risk Factor Score Per Nursin RFS Level Per Nursing on Admit: 4+=Very High GABRIELA STAPLES MD March 31, 2018 08:06
[2018-03-31] MEDS ORDERED: RT-ALBUTEROL SULF 2.5 MG/3 ML PRE-MIX VIAL INH PRN (09:15)
[2018-03-31] MEDS ORDERED: CITA10TA7 PO (09:50)
[2018-03-31] MEDS ORDERED: FLUT16SP22 NS (09:50)
[2018-03-31] MEDS ORDERED: CHOL20002 PO (09:50)
[2018-03-31] MEDS ORDERED: METH2.5T PO (09:50)
[2018-03-31] MEDS ORDERED: ADAL40PE INJ (09:50)
[2018-03-31] MEDS ORDERED: TRIA1CAP4 PO (09:50)
[2018-03-31] MEDS ORDERED: RT-ALBUINH INH (09:50)
[2018-03-31] MEDS ORDERED: CYCL10TA9 PO (09:50)
[2018-03-31] MEDS ORDERED: TIOT4MIS5 INH (09:50)
[2018-03-31] MEDS ORDERED: CETI10TA20 PO (09:50)
[2018-03-31] MEDS ORDERED: ATOR20TA66 PO (09:50)
[2018-03-31] MEDS ORDERED: SULF-222 PO (09:50)
[2018-03-31] MEDS ORDERED: LOSA50TA36 PO (09:50)
[2018-03-31] MEDS ORDERED: IBUP-2055 PO (09:50)
[2018-03-31] MEDS ORDERED: FLUT1BLS INH (09:50)
[2018-03-31] MEDS ORDERED: FOLI1TAB24 PO (09:50)
[2018-03-31] MEDS ORDERED: MONT10TA24 PO (09:50)
[2018-03-31] MEDS: LEVOTHYROXINE 50 MCG (LEVOTHROID) TAB PO SCH (09:54)
[2018-03-31] MEDS ORDERED: IPRA3AMP IH (09:55)
[2018-03-31] MEDS: UMECLIDINIUM BROMIDE (INCRUSE ELLIPTA) 7'S IH SCH (10:24)
[2018-03-31] MEDS ORDERED: CYCLOBENZAPRINE 10 MG (FLEXERIL) TAB PO PRN (11:00)
[2018-03-31 12:00] VITALS: BP 126/60
[2018-03-31] MEDS: BENZONATATE 100 MG (TESSALON) CAPSULE PO PRN (14:54)
[2018-03-31] MEDS: IBUPROFEN 800 MG (MOTRIN) TAB PO PRN (14:55)
[2018-03-31 16:59] VITALS: BP 132/84
[2018-03-31] MEDS ORDERED: TROUGH ORDER-PHARMACY XX NR (18:00)
[2018-03-31] MEDS ORDERED: RT-ADVAIR HFA 115/21 MCG PER PUFF IH ONE (18:00)
[2018-03-31] MEDS: ADVAIR HFA 115/21 MCG INHALER 8 GM IH SCH (19:20)
[2018-03-31] MEDS: ATORVASTATIN 20 MG (LIPITOR) TABLET PO SCH (20:04)
[2018-03-31] MEDS: FLUTICASONE NASAL SPRAY (FLONASE) 16 GM BTL NS SCH (20:05)
[2018-03-31 20:15] VITALS: BP 132/78
[2018-04-01 00:26] VITALS: BP 121/75
[2018-04-01 05:18] LABS: BASOPHILS % (AUTO) 1 % (0-10); EOSINOPHILS # (AUTO) 0.1 10^3/uL (0.0-0.3); EOSINOPHILS % (AUTO) 3 % (0-10); HEMATOCRIT 38 % (35-52); HEMOGLOBIN 12.2 G/DL (11.5-16.0); LYMPHOCYTES # (AUTO) 1.3 X 10^3 (1.0-4.0); LYMPHOCYTES % (AUTO) 30 % (12-44); MEAN CORPUSCULAR HEMOGLOBIN 32 PG (25-34); MEAN CORPUSCULAR HGB CONC 32 G/DL (32-36); MEAN CORPUSCULAR VOLUME 98 FL (80-99); MONOCYTES # (AUTO) 0.6 X 10^3 (0.0-1.0); MONOCYTES % (AUTO) 14 % (0-12); NEUTROPHILS # (AUTO) 2.2 X 10^3 (1.8-7.8); NEUTROPHILS % (AUTO) 53 % (42-75); PLATELET COUNT 218 10^3/uL (130-400); RED BLOOD COUNT 3.84 10^6/uL (4.35-5.85); WHITE BLOOD COUNT 4.2 10^3/uL (4.3-11.0)
[2018-04-01 05:34] LABS: BUN/CREATININE RATIO 14; CALCIUM 8.7 MG/DL (8.5-10.1); CARBON DIOXIDE 20 MMOL/L (21-32); CHLORIDE 109 MMOL/L (98-107); CREATININE SERUM 0.94 MG/DL (0.60-1.30); GFR ESTIMATED > 60; GLUCOSE 122 MG/DL (70-105); POTASSIUM 3.7 MMOL/L (3.6-5.0); SODIUM 141 MMOL/L (135-145)
[2018-04-01] MEDS: LEVOTHYROXINE 50 MCG (LEVOTHROID) TAB PO SCH (06:13)
[2018-04-01] MEDS: VANCOMYCIN 1,750 MG/NS 500 ML IVPB IV SCH ×4 (06:14→18:39)
[2018-04-01] MEDS: PIPERACILLIN SODIUM/TAZOBACTAM 4.5 GM in D5W 100 ML IVPB 100 ML IV SCH (06:14)
[2018-04-01] MEDS: CATHETER FLUSH 10 ML SYR IV SCH ×3 (06:15→21:40)
[2018-04-01 08:00] VITALS: BP 150/66
--- NOTE | 2018-04-01 08:58 | Progress Note-Hospitalist ---
Subjective HPI/CC On Admission Date Seen by Provider: April 01, 2018 Time Seen by Provider: 08:51 Pt is a 58yoCF with a PMH of RA on Methotrexate and Humira, HTN,and hypothyroidism who presented as a direct admission due to worsening abdominal wall cellulitis. She states her symptoms started 2 weeks ago. She thought she had a bug bite and started putting neosporin on it at home. It continued to worsen prompting her to seek evaluation at her PCP's office on 03/27 where she was started on Bactrim. She continued to get worse and was eventually sent home from work on 03/30 due to a fever. She was seen again at her PCP's and decision was made for admission due to failing outpatient antibiotics. She denies any previous history, any known insect bites, or any contacts with similar illness. She states since arrival last night and starting on IV antibiotics her symptoms have remained about the same. Subjective/Events-last exam Pt reports abd wound improving. Does complain of new onset diarrhea since arrival. States it's "not formed" but does not describe it as watery. Breathing is better. Only other concern is about his BP medications being restarted. Focused Exam Lactate Level 03/30/18 17:05: Lactic Acid Level 1.26 Objective Exam Vital Signs Vital Signs Date Time Temp Pulse Resp B/P (MAP) Pulse Ox O2 Delivery O2 Flow Rate FiO2 04/01/18 08:00 96.5 72 20 150/66 (94) 96 Room Air 03/31/18 08:57 21 Capillary Refill : General Appearance: No Apparent Distress, Anxious, Obese Respiratory: Lungs Clear Cardiovascular: Regular Rate, Rhythm, No Murmur Gastrointestinal: Normal Bowel Sounds, Non Tender, Soft Extremity: No Calf Tenderness, No Pedal Edema Neurologic/Psychiatric: Alert, Oriented x3 Skin: Other (wounds on abdomen improving, less warm/tender/erythematous; still draining slightly) Results/Procedures Lab Laboratory Tests 04/01/18 04:45 Patient resulted labs reviewed. Assessment/Plan Assessment and Plan Assess & Plan/Chief Complaint abdominal wall cellulitis Diagnosis/Problems Diagnosis/Problems (1) Cellulitis Status: Acute Assessment & Plan: Failed bactrim as an outpatient MRSA growing in wound per cultures Continue on Vanc and will DC Zosyn Add probiotic Does not meet sepsis criteria TMax 100.2 yesterday Qualifiers: Site of cellulitis: trunk Site of cellulitis of trunk: abdominal wall Qualified Codes: L03.311 - Cellulitis of abdominal wall (2) Asthma Assessment & Plan: On Breo and Spiriva at home, resume Singulair MAT protocol Qualifiers: Asthma severity: moderate Asthma persistence: persistent Asthma complication type: uncomplicated Qualified Codes: J45.40 - Moderate persistent asthma, uncomplicated (3) Rheumatoid arthritis Status: Chronic Assessment & Plan: On Humira and Methotrexate at home Holding due to infection Qualifiers: Rheumatoid arthritis location: multiple sites Rheumatoid factor presence: unspecified presence Qualified Codes: M06.9 - Rheumatoid arthritis, unspecified (4) Hypothyroidism Status: Chronic Assessment & Plan: Continue on home Synthroid Qualifiers: Hypothyroidism type: acquired Qualified Codes: E03.9 - Hypothyroidism, unspecified (5) Hypokalemia Assessment & Plan: Resolved (6) Hypertension Status: Acute Assessment & Plan: Up this AM Will resume incrementally Qualifiers: Hypertension type: essential hypertension Qualified Codes: I10 - Essential (primary) hypertension Clinical Quality Measures DVT/VTE Risk/Contraindication: Risk Factor Score Per Nursin RFS Level Per Nursing on Admit: 4+=Very High GABRIELA NAPIER MD April 01, 2018 08:58
[2018-04-01] MEDS: LORATADINE (CLARITIN) 10 MG TAB PO SCH (09:10)
[2018-04-01] MEDS: FOLIC ACID 1 MG TAB PO SCH (09:11)
[2018-04-01] MEDS: MONTELUKAST 10 MG (SINGULAIR) TAB PO SCH (09:11)
[2018-04-01] MEDS: LOSARTAN 50 MG (COZAAR) TAB PO SCH (09:11)
[2018-04-01] MEDS: TRIAMTERENE/HCTZ 75-50 (MAXZIDE,DYAZIDE) TABLET PO SCH (09:12)
[2018-04-01] MEDS: UMECLIDINIUM BROMIDE (INCRUSE ELLIPTA) 7'S IH SCH (09:36)
[2018-04-01] MEDS: ADVAIR HFA 115/21 MCG INHALER 8 GM IH SCH ×2 (09:36→18:59)
[2018-04-01] MEDS: LACTOBACILLUS Acidoph/Bulgar (LACTINEX/FLORANEX) TAB PO SCH ×2 (11:16→16:06)
[2018-04-01] MEDS: IBUPROFEN 800 MG (MOTRIN) TAB PO PRN (16:07)
[2018-04-01 16:11] VITALS: BP 137/81
[2018-04-01] MEDS: BENZONATATE 100 MG (TESSALON) CAPSULE PO PRN (17:15)
[2018-04-01] MEDS: FLUTICASONE NASAL SPRAY (FLONASE) 16 GM BTL NS SCH (20:26)
[2018-04-01] MEDS: ATORVASTATIN 20 MG (LIPITOR) TABLET PO SCH (20:26)
[2018-04-02] VITALS: BP 154/84
[2018-04-02] MEDS: IBUPROFEN 800 MG (MOTRIN) TAB PO PRN ×2 (04:47→16:15)
[2018-04-02 04:51] LABS: BASOPHILS % (AUTO) 0 % (0-10); EOSINOPHILS # (AUTO) 0.1 10^3/uL (0.0-0.3); EOSINOPHILS % (AUTO) 2 % (0-10); HEMATOCRIT 37 % (35-52); HEMOGLOBIN 12.3 G/DL (11.5-16.0); LYMPHOCYTES # (AUTO) 1.2 X 10^3 (1.0-4.0); LYMPHOCYTES % (AUTO) 26 % (12-44); MEAN CORPUSCULAR HEMOGLOBIN 32 PG (25-34); MEAN CORPUSCULAR HGB CONC 33 G/DL (32-36); MEAN CORPUSCULAR VOLUME 97 FL (80-99); MEAN PLATELET VOLUME 9.6 FL (7.4-10.4); MONOCYTES # (AUTO) 0.5 X 10^3 (0.0-1.0); MONOCYTES % (AUTO) 11 % (0-12); NEUTROPHILS # (AUTO) 2.8 X 10^3 (1.8-7.8); NEUTROPHILS % (AUTO) 61 % (42-75); PLATELET COUNT 233 10^3/uL (130-400); RED BLOOD COUNT 3.83 10^6/uL (4.35-5.85); RED CELL DISTRIBUTION WIDTH 14.2 % (10.0-14.5); WHITE BLOOD COUNT 4.7 10^3/uL (4.3-11.0)
[2018-04-02 05:14] LABS: BUN/CREATININE RATIO 9; CARBON DIOXIDE 21 MMOL/L (21-32); CHLORIDE 109 MMOL/L (98-107); GFR ESTIMATED > 60; GLUCOSE 121 MG/DL (70-105); POTASSIUM 3.8 MMOL/L (3.6-5.0); SODIUM 141 MMOL/L (135-145)
[2018-04-02] MEDS: VANCOMYCIN 1,750 MG/NS 500 ML IVPB IV SCH ×2 (06:04)
[2018-04-02] MEDS: CATHETER FLUSH 10 ML SYR IV SCH ×3 (06:04→21:39)
[2018-04-02] MEDS: LEVOTHYROXINE 50 MCG (LEVOTHROID) TAB PO SCH (06:04)
[2018-04-02] MEDS: LACTOBACILLUS Acidoph/Bulgar (LACTINEX/FLORANEX) TAB PO SCH ×3 (06:04→16:12)
[2018-04-02 08:00] VITALS: BP 136/63
[2018-04-02] MEDS: LORATADINE (CLARITIN) 10 MG TAB PO SCH (08:44)
[2018-04-02] MEDS: LOSARTAN 50 MG (COZAAR) TAB PO SCH (08:44)
[2018-04-02] MEDS: MONTELUKAST 10 MG (SINGULAIR) TAB PO SCH (08:44)
[2018-04-02] MEDS: FOLIC ACID 1 MG TAB PO SCH (08:44)
[2018-04-02] MEDS: TRIAMTERENE/HCTZ 75-50 (MAXZIDE,DYAZIDE) TABLET PO SCH (08:46)
[2018-04-02] MEDS: UMECLIDINIUM BROMIDE (INCRUSE ELLIPTA) 7'S IH SCH (09:35)
[2018-04-02] MEDS: ADVAIR HFA 115/21 MCG INHALER 8 GM IH SCH ×2 (09:36→19:49)
--- NOTE | 2018-04-02 12:07 | Progress Note-Hospitalist ---
Subjective HPI/CC On Admission Date Seen by Provider: April 02, 2018 Time Seen by Provider: 12:03 Pt is a 58yoCF with a PMH of RA on Methotrexate and Humira, HTN,and hypothyroidism who presented as a direct admission due to worsening abdominal wall cellulitis. She states her symptoms started 2 weeks ago. She thought she had a bug bite and started putting neosporin on it at home. It continued to worsen prompting her to seek evaluation at her PCP's office on 03/27 where she was started on Bactrim. She continued to get worse and was eventually sent home from work on 03/30 due to a fever. She was seen again at her PCP's and decision was made for admission due to failing outpatient antibiotics. She denies any previous history, any known insect bites, or any contacts with similar illness. She states since arrival last night and starting on IV antibiotics her symptoms have remained about the same. Subjective/Events-last exam Pt reports feeling better today. Have a rough day yesterday with an upset stomach but improved today. Feeling abdomen is improving still. No other complaints or concerns. Focused Exam Lactate Level 03/30/18 17:05: Lactic Acid Level 1.26 Objective Exam Vital Signs Vital Signs Date Time Temp Pulse Resp B/P (MAP) Pulse Ox O2 Delivery O2 Flow Rate FiO2 04/02/18 08:53 Room Air 04/02/18 08:00 98.3 73 22 136/63 (87) 94 03/31/18 08:57 21 Capillary Refill : General Appearance: No Apparent Distress, Obese Respiratory: Lungs Clear, No Respiratory Distress Cardiovascular: Regular Rate, Rhythm, No Murmur Neurologic/Psychiatric: Alert, Oriented x3 Skin: Other (wounds on abdomen improving, less erythema- superior wound more improved than inferior, mild serous drainage on bandage) Results/Procedures Lab Laboratory Tests 04/02/18 04:33 Patient resulted labs reviewed. Assessment/Plan Assessment and Plan Assess & Plan/Chief Complaint abdominal wall cellulitis Diagnosis/Problems Diagnosis/Problems (1) Cellulitis Status: Acute Assessment & Plan: Failed bactrim as an outpatient MRSA growing in wound per cultures DC Vanc and switch to Clindamycin per sensitivities Continue probiotic Does not meet sepsis criteria Qualifiers: Site of cellulitis: trunk Site of cellulitis of trunk: abdominal wall Qualified Codes: L03.311 - Cellulitis of abdominal wall (2) Asthma Assessment & Plan: On Breo and Spiriva at home, resume Singulair MAT protocol Qualifiers: Asthma severity: moderate Asthma persistence: persistent Asthma complication type: uncomplicated Qualified Codes: J45.40 - Moderate persistent asthma, uncomplicated (3) Rheumatoid arthritis Status: Chronic Assessment & Plan: On Humira and Methotrexate at home Holding due to infection Qualifiers: Rheumatoid arthritis location: multiple sites Rheumatoid factor presence: unspecified presence Qualified Codes: M06.9 - Rheumatoid arthritis, unspecified (4) Hypertension Status: Acute Assessment & Plan: Improving control Continue current meds Qualifiers: Hypertension type: essential hypertension Qualified Codes: I10 - Essential (primary) hypertension (5) Hypothyroidism Status: Chronic Assessment & Plan: Continue on home Synthroid Qualifiers: Hypothyroidism type: acquired Qualified Codes: E03.9 - Hypothyroidism, unspecified (6) Hypokalemia Assessment & Plan: Resolved (7) Prophylactic measure Assessment & Plan: Lovenox Saline lock ADA diet Clinical Quality Measures DVT/VTE Risk/Contraindication: Risk Factor Score Per Nursin RFS Level Per Nursing on Admit: 4+=Very High GABRIELA NAPIER MD April 02, 2018 12:07
[2018-04-02] MEDS: ENOXAPARIN 40 MG/0.4 ML (LOVENOX) SYR SQ SCH (13:00)
[2018-04-02] MEDS: CLINDAMYCIN 150 MG (CLEOCIN) CAP PO SCH ×2 (13:00→17:57)
[2018-04-02] MEDS: BENZONATATE 100 MG (TESSALON) CAPSULE PO PRN (15:26)
[2018-04-02 16:00] VITALS: BP 155/81
[2018-04-02] MEDS: ATORVASTATIN 20 MG (LIPITOR) TABLET PO SCH (20:31)
[2018-04-02] MEDS: FLUTICASONE NASAL SPRAY (FLONASE) 16 GM BTL NS SCH (20:31)
[2018-04-03] MEDS: CLINDAMYCIN 150 MG (CLEOCIN) CAP PO SCH ×3 (00:01→11:57)
[2018-04-03 00:02] VITALS: BP 154/67
[2018-04-03] MEDS: BENZONATATE 100 MG (TESSALON) CAPSULE PO PRN (00:03)
[2018-04-03] MEDS: LACTOBACILLUS Acidoph/Bulgar (LACTINEX/FLORANEX) TAB PO SCH ×2 (06:06→11:57)
[2018-04-03] MEDS: LEVOTHYROXINE 50 MCG (LEVOTHROID) TAB PO SCH (06:06)
[2018-04-03] MEDS: CATHETER FLUSH 10 ML SYR IV SCH (06:06)
[2018-04-03 07:25] LABS: BASOPHILS % (AUTO) 1 % (0-10); EOSINOPHILS # (AUTO) 0.1 10^3/uL (0.0-0.3); EOSINOPHILS % (AUTO) 2 % (0-10); HEMATOCRIT 37 % (35-52); HEMOGLOBIN 11.9 G/DL (11.5-16.0); LYMPHOCYTES # (AUTO) 1.1 X 10^3 (1.0-4.0); LYMPHOCYTES % (AUTO) 30 % (12-44); MEAN CORPUSCULAR HEMOGLOBIN 32 PG (25-34); MEAN CORPUSCULAR HGB CONC 32 G/DL (32-36); MEAN CORPUSCULAR VOLUME 98 FL (80-99); MEAN PLATELET VOLUME 9.4 FL (7.4-10.4); MONOCYTES # (AUTO) 0.6 X 10^3 (0.0-1.0); MONOCYTES % (AUTO) 16 % (0-12); NEUTROPHILS % (AUTO) 52 % (42-75); PLATELET COUNT 238 10^3/uL (130-400); RED BLOOD COUNT 3.77 10^6/uL (4.35-5.85); RED CELL DISTRIBUTION WIDTH 14.1 % (10.0-14.5); WHITE BLOOD COUNT 3.8 10^3/uL (4.3-11.0)
[2018-04-03 07:46] LABS: BUN/CREATININE RATIO 10; CALCIUM 9.1 MG/DL (8.5-10.1); CARBON DIOXIDE 26 MMOL/L (21-32); CHLORIDE 106 MMOL/L (98-107); CREATININE SERUM 0.84 MG/DL (0.60-1.30); GFR ESTIMATED > 60; GLUCOSE 131 MG/DL (70-105); POTASSIUM 3.7 MMOL/L (3.6-5.0); SODIUM 141 MMOL/L (135-145)
[2018-04-03] MEDS: ADVAIR HFA 115/21 MCG INHALER 8 GM IH SCH (08:10)
[2018-04-03] MEDS: UMECLIDINIUM BROMIDE (INCRUSE ELLIPTA) 7'S IH SCH (08:10)
[2018-04-03 08:57] VITALS: BP 137/64
[2018-04-03] MEDS: LOSARTAN 50 MG (COZAAR) TAB PO SCH (09:24)
[2018-04-03] MEDS: FOLIC ACID 1 MG TAB PO SCH (09:24)
[2018-04-03] MEDS: LORATADINE (CLARITIN) 10 MG TAB PO SCH (09:24)
[2018-04-03] MEDS: TRIAMTERENE/HCTZ 75-50 (MAXZIDE,DYAZIDE) TABLET PO SCH (09:24)
[2018-04-03] MEDS: MONTELUKAST 10 MG (SINGULAIR) TAB PO SCH (09:25)
[2018-04-03] MEDS: ENOXAPARIN 40 MG/0.4 ML (LOVENOX) SYR SQ SCH (11:57)
[2018-04-03] MEDS ORDERED: CLIN150C17 PO (13:56)
--- NOTE | 2018-04-03 14:03 | Progress Note-Hospitalist ---
Progress Note Progress Notes/Assess & Plan Date Seen 04/03/18 Time Seen by Provider: 13:59 Assessment & Plan The patient is a 58-year-old white female known to me. She was admitted after a failed attempt at treating abdominal wall cellulitis as an outpatient. She had a large area of involvement in her prominent abdominal wall. The upper pole wound is dry and the circumlocution all erythema is fading. The lower wound is still draining. The erythema is shrinking towards the active draining abscess. Dr. Staples had switched her to clindamycin by mouth yesterday. She had previously been on a regimen including Zosyn and vancomycin. Cultures revealed MSSA. Physical exam: The patient is alert and oriented. Lungs are clear to auscultation. CV is regular. The wounds are described above. Impression: Left abdominal wall cellulitis/abscesses. Plan: See discharge sequence for medications and routines. MARINO JAIME MD April 03, 2018 14:03
[2018-04-03 14:55] VITALS: BP 137/64
--- NOTE | 2018-04-24 15:02 | Discharge Summary-Hospitalist ---
Diagnosis/Chief Complaint Date of Admission March 30, 2018 at 16:49 Date of Discharge April 03, 2018 at 14:20 Discharge Date: April 03, 2018 Admission Diagnosis Cellulitis Discharge Diagnosis 1.cellulitis abdominal wall, failed outpatient management. 2.rheumatoid arthritis on immunosuppressants. 3.morbid obesity (1) Cellulitis Status: Acute Assessment & Plan: Failed bactrim as an outpatient MRSA growing in wound per cultures DC Vanc and switch to Clindamycin per sensitivities Continue probiotic Does not meet sepsis criteria (2) Asthma Assessment & Plan: On Breo and Spiriva at home, resume Singulair MAT protocol (3) Rheumatoid arthritis Status: Chronic Assessment & Plan: On Humira and Methotrexate at home Holding due to infection (4) Hypertension Status: Acute Assessment & Plan: Improving control Continue current meds (5) Hypothyroidism Status: Chronic Assessment & Plan: Continue on home Synthroid (6) Hypokalemia Assessment & Plan: Resolved (7) Prophylactic measure Assessment & Plan: Lovenox Saline lock ADA diet Discharge Summary Discharge Physical Exam Allergies: Coded Allergies: amlodipine (Verified Allergy, Unknown, 02/22/13) erythromycin base (Verified Allergy, Unknown, 02/22/13) General Appearance: Alert, Oriented X3, Cooperative Hospital Course The patient had had an attempt at outpatient management. She had been placed on Bactrim with the assumption of MRSA. This did not respond and she was sent home from work on 03/30 because of a fever. She was then seen by her provider and arrangements were made for direct admission to the hospitalist service. Physical exam at the time of admission showed 2 areas of focus on the left hemiabdomen. Both of these had blistered and were draining which allowed for culture. MSSA was grown from each of these sites. She reported clear improvement over the 2 days prior to discharge. The areas were both shrinking. The redness was fading as well. She reported that they were much less uncomfortable. She was very anxious to go home. This seemed to be reasonable. Her medications are as listed in the discharge sequence. She is to see her PCP Dr. Jimenez later this week. She was discharged in improved condition. Labs (last 24 hrs) Microbiology 03/30/18 Blood Culture - Final, Complete No growth 04/02/18 C. difficile GDH Antigen & Toxins - Final, Complete 03/30/18 Gram Stain - Final, Complete 03/30/18 Sputum Culture - Final, Complete Usual/normal edwina isolated. 03/30/18 Gram Stain - Final, Complete 03/30/18 Wound Culture - Final, Complete Staphylococcus aureus Patient resulted labs reviewed. Discussion & Recommendations Discharge Planning: >30 minutes discharge planning Discharge Home Medications: Active Scripts Active Clindamycin HCl 150 Mg Capsule 300 Mg PO Q6HR Reported Iprat-Albut 0.5-3(2.5) mg/3 ml (Ipratropium/Albuterol Sulfate) 3 Ml Ampul.neb 3 Ml IH QID PRN Fluticasone Propionate 16 Gm [place].susp 2 Sprays NS HS Cyclobenzaprine HCl 10 Mg Tablet 10 Mg PO TID PRN Proair Hfa (Albuterol Sulfate) 1 Puff Puff 2 Puff INH Q4H PRN Zyrtec (Cetirizine HCl) 10 Mg Tablet 10 Mg PO BID Atorvastatin Calcium 20 Mg Tablet 20 Mg PO DAILY Losartan Potassium 50 Mg Tablet 50 Mg PO DAILY Triamterene-Hctz 37.5-25 mg Cp (Triamterene/Hydrochlorothiazid) 1 Each Capsule 1 Cap PO DAILY Folic Acid 1 Mg Tablet 1 Mg PO DAILY Spiriva Respimat 1.25MCG/ACTUATION (Tiotropium [place]) 4 Gm Mist.inhal 2 Puff INH DAILY Breo Ellipta 200-25 Mcg INH (Fluticasone/Vilanterol) 1 Each Blst.w.dev 1 Puff INH HS Citalopram HBr (Citalopram Hydrobromide) 10 Mg Tablet 10 Mg PO DAILY Montelukast Sodium 10 Mg Tablet 10 Mg PO DAILY Humira (Adalimumab) 40 Mg/0.8 Ml Pen.ij.kit INJ EVERY OTHER TUESDAY Methotrexate (Methotrexate Sodium) 2.5 Mg Tablet 20 Mg PO FR TAKES 8 (2.5MG) TABLETS Vitamin D-3 (Cholecalciferol (Vitamin D3)) 2,000 Unit Capsule 2,000 Unit PO DAILY Ibuprofen 200 Mg Tablet 800 Mg PO TID PRN Osteo Bi-Flex Caplet (Glucosamine HCl/Chondr Ashby A Na) 1 Each Tablet 1 Tab PO BID Clonidine HCl 0.1 Mg Tablet 0.1 Mg PO TID Levothyroxine Sodium 50 Mcg Tablet 50 Mcg PO DAILY Instructions to patient/family Please see electronic discharge instructions given to patient. Clinical Quality Measures DVT/VTE Risk/Contraindication: Risk Factor Score Per Nursin RFS Level Per Nursing on Admit: 4+=Very High Problem Qualifiers (1) Cellulitis: Site of cellulitis: trunk Site of cellulitis of trunk: abdominal wall Qualified Codes: L03.311 - Cellulitis of abdominal wall (2) Asthma: Asthma severity: moderate Asthma persistence: persistent Asthma complication type: uncomplicated Qualified Codes: J45.40 - Moderate persistent asthma, uncomplicated (3) Rheumatoid arthritis: Rheumatoid arthritis location: multiple sites Rheumatoid factor presence: unspecified presence Qualified Codes: M06.9 - Rheumatoid arthritis, unspecified (4) Hypertension: Hypertension type: essential hypertension Qualified Codes: I10 - Essential ( primary) hypertension (5) Hypothyroidism: Hypothyroidism type: acquired Qualified Codes: E03.9 - Hypothyroidism, unspecified MARINO JAIME MD Apr 24, 2018 15:02
== END 2018-04-03 14:20 | disposition home or self-care (01) | DRG 603 ==
LOC: 4TH 16:49
PROVIDERS: ADMIT Family Medicine; ATTEND Family Medicine
DX: L03.311 Cellulitis of abdominal wall (principal); J45.40 Moderate persistent asthma, uncomplicated; M06.9 Rheumatoid arthritis, unspecified; Z68.43 Body mass index [BMI] 50.0-59.9, adult; E66.9 Obesity, unspecified; I10 Essential (primary) hypertension; E03.9 Hypothyroidism, unspecified; E87.6 Hypokalemia; E78.00 Pure hypercholesterolemia, unspecified; G62.9 Polyneuropathy, unspecified; M19.91 Primary osteoarthritis, unspecified site; M54.9 Dorsalgia, unspecified; Z79.899 Other long term (current) drug therapy
CPT/HCPCS: 36415; 80048; 80053; 80202; 81000; 83605; 85025; 85610; 85730; 87040; 87070; 87077; 87186; 87205; 87324; 87449; 94640; 94760

== ENCOUNTER → 2018-06-27 | Outpatient (CLI) | payer BC ==
[~2018-06-27] MED LIST changes: +ADAL40PE INJ; +ATOR20TA66 PO; +CETI10TA20 PO; +CHOL20002 PO; +CITA10TA7 PO; +CLIN150C17 PO; +FLUT1BLS INH; +FOLI1TAB24 PO; +IBUP-2055 PO; +IPRA3AMP31 IH; +LOSA50TA36 PO; +MONT10TA24 PO; +MTX2.5T PO; +RT-ALBUINH INH; +SULF-222 PO; +TIOT4MIS5 INH; +TRIA1CAP4 PO
--- NOTE | 2018-06-28 09:15 | Diagnostic Imaging Report ---
CLINICAL INDICATION: Patient complains of cough and shortness breath for two months. Patient has history of asthma and upper respiratory infection. EXAM: Chest x-ray, PA and lateral views. COMPARISONS: Chest x-ray dated 07/31/2015. FINDINGS: Lungs/pleura: Lungs are clear. There is no pneumothorax. There is no pleural effusion. Mediastinum: Unremarkable. Pulmonary vasculature: Unremarkable. Heart: Unremarkable. Bones/extrathoracic soft tissue: There are hypertrophic spurs involving the thoracic spine. IMPRESSION: There is no radiographic evidence of acute cardiopulmonary process. Dictated by: Dictated on workstation # [id number]
== END ==
LOC: RAD 16:01
PROVIDERS: ATTEND Nurse Practitioner Family
DX: J45.909 Unspecified asthma, uncomplicated (principal); J06.9 Acute upper respiratory infection, unspecified; J98.4 Other disorders of lung
CPT/HCPCS: 71046

== ENCOUNTER 2019-01-04 16:59 | Inpatient (IN) | payer BC ==
[~2019-01-04] VITALS: Ht 167.6 cm; Wt 134.7 kg
[~2019-01-04 16:59] MED LIST changes: -LOSA50TA36 PO; +LOSA50TA63 PO
[2019-01-04] MEDS ORDERED: ALPRAZolam 0.25 MG (XANAX) TAB PO PRN (17:15)
[2019-01-04] MEDS ORDERED: ONDANSETRON 4 MG (ZOFRAN) ORAL DISSOLVE TAB PO PRN (17:15)
[2019-01-04] MEDS ORDERED: ONDANSETRON 4 MG/2 ML (SDV) Z0FRAN IVP PRN (17:15)
[2019-01-04] MEDS ORDERED: ACETAMINOPHEN 500 MG TAB (TYLENOL) PO PRN (17:15)
[2019-01-04] MEDS ORDERED: ENOXAPARIN 40 MG/0.4 ML (LOVENOX) SYR SC SCH (17:15)
[2019-01-04] MEDS ORDERED: IBUPROFEN TABLET 200 MG TAB PO PRN (17:15)
[2019-01-04] MEDS ORDERED: HYDROcodone/APAP 5 MG/325 MG (LORTAB) TAB PO PRN (17:15)
[2019-01-04] MEDS ORDERED: fentaNYL INJECTION 100 MCG/2 ML AMP IVP PRN (17:15)
[2019-01-04] MEDS ORDERED: DOCUSATE SODIUM 100 MG (COLACE) CAP PO PRN (17:15)
[2019-01-04] MEDS ORDERED: CALCIUM CARBONATE 500 MG (TUMS) TAB.CHEW PO PRN (17:15)
[2019-01-04] MEDS ORDERED: diphenhydrAMINE 25 MG TAB (BENADRYL) PO PRN (17:15)
[2019-01-04] MEDS ORDERED: LOPERAMIDE 2 MG (IMODIUM) CAP PO PRN (17:15)
--- OUTSIDE RECORDS SUMMARY | 2019-01-04 18:07 | XMS REPORT ---
Author Author KAYLEIGH Rivera [facility] [place] Address [address] [place] [address] Care Team Providers Care Advertiser Name Role Phone KAYLEIGH Rivera Unavailable PROBLEMS Type Condition ICD9-CM Code [id number] Code Onset Dates Condition Status SNOMED Code Problem Rheumatoid arthritis involving ankle, unspecified laterality, unspecified rheumatoid factor presence M06.9 Active 102094378 Problem Morbid exogenous obesity E66.01 Active 029007158 Problem Obstructive sleep apnea of adult G47.33 Active [id number] ALLERGIES Substance Reaction Event Type Date Status Norvasc Unknown Drug Allergy Feb, Active Erythromycin Base Unknown Drug Allergy Feb, Active ENCOUNTERS Encounter Location Date Diagnosis [facility] [address] [id number] Feb, Cough R05 ; Post-nasal drainage R09.82 and BMI 50.0- 59.9, adult Z68.43 [facility] [address] [id number] March, Acute frontal sinusitis, recurrence not specified J01.10 and Subacute maxillary sinusitis J01.00 [facility] [id number] [place] [id number] Jul, 2016 Encounter for immunization Z23 [facility] [address] [address] Aug, Encounter for immunization Z23 [facility] [address] [address] 2015 [facility] [address] [address] Feb, [facility] [address] [address] Aug, [facility] [id number] [address] Aug, [facility] [id number] [address] Nov, [facility] [id number] [address] Nov, [facility] [id number] [address] Aug, [facility] [id number] [address] Aug, [facility] [id number] [address] Nov, [facility] [id number] [address] Sep, [facility] [id number] [address] Sep, IMMUNIZATIONS No Known Immunizations SOCIAL HISTORY Never Assessed REASON FOR VISIT sore throat PLAN OF CARE Activity Details Follow Up prn Reason: VITAL SIGNS Height 66 in 2018-03-03 Weight 333 lbs 2018-03-03 Temperature 98.5 degrees Fahrenheit 2018-03-03 Heart Rate 98 bpm 2018-03-03 Respiratory Rate 2018-03-03 BMI 53.74 kg/m2 2018-03-03 Blood pressure systolic 128 mmHg 2018-03-03 Blood pressure diastolic 70 mmHg 2018-03-03 MEDICATIONS Medication Instructions Dosage Frequency Start Date End Date Duration Status Flonase 50 mcg/actuation 1 sprays by Nasal route 2 times per day in each nostril Nov, Active Lisinopril 10 mg take 1 tablet (10 mg) by oral route once daily Nov Active Lipitor 40 mg take 1 tablet (40 mg) by oral route once daily Nov, Active Zyrtec Allergy Active Ipratropium-Albuterol 0.5 mg-3 mg(2.5 mg base)/3 mL prn Nov, Active Methotrexate Active Flonase [address] 1 SPRAY IN EACH NOSTRIL TWICE DAILY 30 Active Symbicort 160-4.5 mcg/actuation inhale 2 puffs by inhalation route 2 times per day in the morning and evening Nov, Active Humira Active Spiriva HandiHaler Active RESULTS No Results PROCEDURES No Known procedures INSTRUCTIONS MEDICATIONS ADMINISTERED No Known Medications MEDICAL (GENERAL) HISTORY Type Description Date Medical History Rheumtoid arthritis Medical History obesity
--- OUTSIDE RECORDS SUMMARY | 2019-01-04 18:14 | XMS REPORT | Continuity of Care Document ---
Author Author [facility] of [facility] Ctr of [facility] Address Unknown Phone Unavailable Allergies Active Description Code Type Severity Reaction Onset Reported/Identified Relationship to Patient Clinical Status Yes amlodipine [id number] Drug Allergy Unknown N/A 02/22/2013 Yes erythromycin base [id number] Drug Allergy Unknown N/A 02/22/2013 Yes Erythromycin [...] OBSTRUCTIVE SLEEP APNEA (ADULT) (PEDIATR 11/23/2013 [facility], KAYLEIGH A 327.23 sleep apnea 11/23/2013 [facility], KAYLEIGH A 461.9 SINUSITIS ACUTE 11/23/2013 [facility], KAYLEIGH A 327.23 sleep apnea 11/23/2013 [facility]AC[facility], KAYLEIGH A 461.9 SINUSITIS ACUTE 11/22/2014 Ot [...] 355.6 PLANTAR NERVE LESION 02/27/2016 ROBBIE DPM, CHRISTPOHE Hannon Ot 355.6 PLANTAR NERVE LESION 02/27/2016 ROBBIE MARTINEZ, CHRISTOPHE Hannon Ot V72.63 PRE-PROCEDURAL LABORATORY EXAMINATION 02/27/2016 ROBBIE MARTINEZ, CHRISTOPHE Hannon Ot V74.8 SCREEN-BACTERIAL DIS NEC 02/27/2016 BRIAN SPIVEYJENNY Ot 482.9 BACTERIAL PNEUMONIA NOS 02/27/2016 BRIAN SPIVEY JENNY Helen Ot 786.09 RESPIRATORY ABNORM NEC [...] 09/27/2017 Ot 355.6 PLANTAR NERVE LESION 09/27/2017 AVALOS DPM, CHRISTOPHE P Ot 355.6 PLANTAR NERVE LESION 09/27/2017 ROBBIE DPM, CHRISTOPHE P Ot V72.63 PRE-PROCEDURAL LABORATORY EXAMINATION 09/27/2017 ROBBIE [...] APRN Ot J98.4 OTHER DISORDERS OF LUNG 04/03/2018 KARTHIKEYANGABRIELA Shay MD Ot E03.9 HYPOTHYROIDISM, UNSPECIFIED 04/03/2018 GABRIELA NAPIER MD Ot E66.9 OBESITY, UNSPECIFIED 04/03/2018 GABRIELA NAPIER MD Ot E78.00 PURE HYPERCHOLESTEROLEMIA, UNSPECIFIED 04/03/2018 GABRIELA NAPIER MD Ot E87.6 HYPOKALEMIA 04/03/2018 GABRIELA NAPIER MD Ot G62.9 POLYNEUROPATHY, UNSPECIFIED 04/03/2018 GABRIELA NAPIER MD Ot I10 ESSENTIAL (PRIMARY) HYPERTENSION 04/03/2018 GABRIELA NAPIER MD Ot J45.40 MODERATE PERSISTENT ASTHMA, UNCOMPLICATE 04/03/2018 GABRIELA NAPIER MD Ot L03.311 CELLULITIS OF ABDOMINAL WALL 04/03/2018 GABRIELA NAPIER MD Ot M06.9 RHEUMATOID ARTHRITIS, UNSPECIFIED 04/03/2018 GABRIELA NAPIER MD Ot M19.91 PRIMARY OSTEOARTHRITIS, UNSPECIFIED SITE 04/03/2018 GABRIELA NAPIER MD Ot M54.9 DORSALGIA, UNSPECIFIED 04/03/2018 GABRIELA NAPIER MD Ot Z68.43 BODY MASS INDEX (BMI) 50-59.9 , ADULT 04/03/2018 GABRIELA NAPIER MD Ot Z79.899 OTHER JACK SPINNER (CURRENT) DRUG THERAPY 04/03/2018 GABRIELA NAPIER MD Ot E03.9 HYPOTHYROIDISM, UNSPECIFIED 04/03/2018 GABRIELA NAPIER MD Ot E66.9 OBESITY, UNSPECIFIED 04/03/2018 GABRIELA NAPIER MD Ot E78.00 PURE HYPERCHOLESTEROLEMIA, UNSPECIFIED 04/03/2018 GABRIELA NAPIER MD Ot E87.6 HYPOKALEMIA 04/03/2018 GABRIELA NAPIER MD Ot G62.9 POLYNEUROPATHY, UNSPECIFIED 04/03/2018 GABRIELA NAPIER MD Ot I10 ESSENTIAL (PRIMARY) HYPERTENSION 04/03/2018 GABRIELA NAPIER MD Ot J45.40 MODERATE PERSISTENT ASTHMA, UNCOMPLICATE 04/03/2018 GABRIELA NAPIER MD Ot L03.311 CELLULITIS OF ABDOMINAL WALL 04/03/2018 GABRIELA NAPIER MD Ot M06.9 RHEUMATOID ARTHRITIS, UNSPECIFIED 04/03/2018 KARTHIKEYAN MCLEOD, GABRIELA Cervantes Ot M19.91 PRIMARY OSTEOARTHRITIS, UNSPECIFIED SITE 04/03/2018 KARTHIKEYAN MCLEOD, GABRIELA Cervantes Ot M54.9 DORSALGIA, UNSPECIFIED 04/03/2018 KARTHIKEYAN MCLEOD, GABRIELA Cervantes Ot Z68.43 BODY MASS INDEX (BMI) 50-59.9 , ADULT 04/03/2018 KARTHIKEYAN MCLEOD, GABRIELA Cervantes Ot Z79.899 OTHER JACK SPINNER (CURRENT) DRUG THERAPY 06/08/2018 ROBBIE MARTINEZ, CHRISTOPHE Hannon Ot 355.6 PLANTAR NERVE LESION 06/08/2018 ROBBIE MARTINEZ, CHRISTOPHE Hannon Ot V72.63 PRE-PROCEDURAL LABORATORY EXAMINATION 06/08/2018 ROBBIE MARTINEZ, CHRISTOPHE Hannon Ot V74.8 SCREEN-BACTERIAL DIS NEC 06/08/2018 JENNY TORRES DO Ot 482.9 BACTERIAL PNEUMONIA NOS 06/08/2018 JENNY TORRES DO Ot 786.09 RESPIRATORY ABNORM NEC 06/08/2018 Ot 717.7 CHONDROMALACIA PATELLAE 06/08/2018 Ot 836.0 TEAR MED MENISC KNEE-CUR 06/08/2018 Ot E000.8 OTHER EXTERNAL CAUSE STATUS 06/08/2018 Ot E928.9 ACCIDENT NOS 06/08/2018 Ot V72.81 EXAM-PRE- OPERATIVE CARDIOVASCULAR 06/08/2018 Ot V74.8 SCREEN- BACTERIAL DIS NEC 06/08/2018 JENNY TORRES DO Ot E66.9 OBESITY, UNSPECIFIED 06/08/2018 JENNY TORRES DO Ot G47.33 OBSTRUCTIVE SLEEP APNEA (ADULT) (PEDIATR 06/08/2018 JENNY TORRES DO Ot M06.9 RHEUMATOID ARTHRITIS, UNSPECIFIED 06/08/2018 KATHRIN GARCÍA APRN Ot J45.909 UNSPECIFIED ASTHMA, UNCOMPLICATED 06/08/2018 KATHRIN GARCÍA APRN Ot J98.4 OTHER DISORDERS OF LUNG 06/08/2018 ROBBIE MARTINEZ, CHRISTOPHE Hannon Ot 355.6 PLANTAR NERVE LESION 06/08/2018 ROBBIE MARTINEZ, CHRISTOPHE Hannon Ot V72.63 PRE-PROCEDURAL LABORATORY EXAMINATION 06/08/2018 CHRISTOPHE AVALOS DPM Ot V74.8 SCREEN-BACTERIAL DIS NEC 06/08/2018 JENNY TORRES DO Ot 482.9 BACTERIAL PNEUMONIA NOS 06/08/2018 JENNY TORRES DO Ot 786.09 RESPIRATORY ABNORM NEC 06/08/2018 Ot 717.7 CHONDROMALACIA PATELLAE 06/08/2018 Ot 836.0 TEAR MED MENISC KNEE-CUR 06/08/2018 Ot E000.8 OTHER EXTERNAL CAUSE STATUS 06/08/2018 Ot E928.9 ACCIDENT NOS 06/08/2018 Ot V72.81 EXAM-PRE- OPERATIVE CARDIOVASCULAR 06/08/2018 Ot V74.8 SCREEN- BACTERIAL DIS NEC 06/08/2018 JENNY TORRES DO Ot E66.9 OBESITY, UNSPECIFIED 06/08/2018 JENNY TORRES DO Ot G47.33 OBSTRUCTIVE SLEEP APNEA (ADULT) (PEDIATR 06/08/2018 JENNY TORRES DO Ot M06.9 RHEUMATOID ARTHRITIS, UNSPECIFIED 06/08/2018 KATHRIN GARCÍA APRN Ot J45.909 UNSPECIFIED ASTHMA, UNCOMPLICATED 06/08/2018 KATHRIN GARCÍA APRN Ot J98.4 OTHER DISORDERS OF LUNG 07/14/2018 Ot J06.9 ACUTE UPPER RESPIRATORY INFECTION, UNSPE 07/14/2018 Ot J45.909 UNSPECIFIED ASTHMA, UNCOMPLICATED 07/14/2018 Ot J98.4 OTHER DISORDERS OF LUNG Procedures Code Description Performed By Performed On LARYGNOSCOPY AND OTH TRACHEOSCOPY 10/05/2011 04.07 PERIPH NERV EXCISION NEC 08/10/2013 Results Test Result Range Complete urinalysis with reflex to culture - 03/30/18 17:00 Urine color determination YELLOW NRG Urine clarity determination CLEAR NRG Urine pH measurement by test strip 6.5 5-9 Specific gravity of urine by test strip 1.015 1.016- 1.022 Urine protein assay by test strip, semi-quantitative NEGATIVE NEGATIVE Urine glucose detection by automated test strip NEGATIVE NEGATIVE Erythrocytes detection in urine sediment by light microscopy 1+ NEGATIVE Urine ketones detection by automated test strip NEGATIVE NEGATIVE Urine nitrite detection by test strip NEGATIVE NEGATIVE Urine total bilirubin detection by test strip NEGATIVE NEGATIVE Urine urobilinogen measurement by automated test strip (mass/volume) NORMAL NORMAL Urine leukocyte esterase detection by dipstick NEGATIVE NEGATIVE Automated urine sediment erythrocyte count by microscopy (number/high power field) NONE NRG Automated urine sediment leukocyte count by microscopy (number/high power field ) RARE NRG Bacteria detection in urine sediment by light microscopy NONE NRG Squamous epithelial cells detection in urine sediment by light microscopy 5-10 NRG Crystals detection in urine sediment by light microscopy NONE NRG Casts detection in urine sediment by light microscopy NONE NRG Mucus detection in urine sediment by light microscopy NEGATIVE NRG Complete urinalysis with reflex to culture NO NRG Bacterial blood culture - 03/30/18 17:00 Bacterial blood culture NG NRG Complete blood count (CBC) with automated white blood cell (WBC) differential - 03/30/18 17:05 Blood leukocytes automated count (number/volume) 7.3 10*3/uL 4.3-11.0 Blood erythrocytes automated count (number/volume) 4.14 10*6/uL 4.35-5.85 Venous blood hemoglobin measurement (mass/volume) 13.3 g/dL 11.5-16.0 Blood hematocrit (volume fraction) 40 % 35-52 Automated erythrocyte mean corpuscular volume 96 [foz_us] 80-99 Automated erythrocyte mean corpuscular hemoglobin (mass per erythrocyte) 32 pg 25-34 Automated erythrocyte mean corpuscular hemoglobin concentration measurement ( mass/volume) 33 g/dL 32-36 Automated erythrocyte distribution width ratio 14.2 % 10.0-14.5 Automated blood platelet count (count/volume) 251 10*3/uL 130-400 Automated blood platelet mean volume measurement 10.0 [foz_us] 7.4-10.4 Automated blood neutrophils/100 leukocytes 68 % 42-75 Automated blood lymphocytes/100 leukocytes 22 % 12-44 Blood monocytes/100 leukocytes 9 % 0-12 Automated blood eosinophils/100 leukocytes 0 % 0-10 Automated blood basophils/100 leukocytes 1 % 0-10 Blood neutrophils automated count (number/volume) 5.0 10*3 1.8-7.8 Blood lymphocytes automated count (number/volume) 1.6 10*3 1.0-4.0 Blood monocytes automated count (number/volume) 0.6 10*3 0.0-1.0 Automated eosinophil count 0.0 10*3/uL 0.0-0.3 Automated blood basophil count (count/volume) 0.1 10*3/uL 0.0-0.1 Blood lactic acid measurement (moles/volume) - 03/30/18 17:05 Blood lactic acid measurement (moles/volume) 1.26 mmol/L 0.50-2.00 PT panel in platelet poor plasma by coagulation assay - 03/30/18 17:05 Prothrombin time (PT) in platelet poor plasma by coagulation assay 13.6 s 12.2-14.7 INR in platelet poor plasma or blood by coagulation assay 1.0 0.8-1.4 Activated partial thromboplastin time (aPTT) in platelet poor plasma bycoagulation assay - 03/30/18 17:05 Activated partial thromboplastin time (aPTT) in platelet poor plasma bycoagulation assay 28 s 24-35 Comprehensive metabolic panel - 03/30/18 17:05 Serum or plasma sodium measurement (moles/volume) 136 mmol/L 135-145 Serum or plasma potassium measurement (moles/volume) 3.6 mmol/L 3.6-5.0 Serum or plasma chloride measurement (moles/volume) 103 mmol/L 98-107 Carbon dioxide 23 mmol/L 21-32 Serum or plasma anion gap determination (moles/volume) 10 mmol/L 5-14 Serum or plasma urea nitrogen measurement (mass/volume) 13 mg/dL 7-18 Serum or plasma creatinine measurement (mass/volume) 1.11 mg/dL 0.60-1.30 Serum or plasma urea nitrogen/creatinine mass ratio 12 NRG Serum or plasma creatinine measurement with calculation of estimated glomerular filtration rate 50 NRG Serum or plasma glucose measurement (mass/volume) 128 mg/dL 70-105 Serum or plasma calcium measurement (mass/volume) 9.5 mg/dL 8.5-10.1 Serum or plasma total bilirubin measurement (mass/volume) 0.8 mg/dL 0.1-1.0 Serum or plasma alkaline phosphatase measurement (enzymatic activity/volume) 104 U/L 40-136 Serum or plasma aspartate aminotransferase measurement (enzymatic activity/ volume) 14 U/L 5-34 Serum or plasma alanine aminotransferase measurement (enzymatic activity/volume ) 30 U/L 0-55 Serum or plasma protein measurement (mass/volume) 7.6 g/dL 6.4-8.2 Serum or plasma albumin measurement (mass/volume) 4.1 g/dL 3.2-4.5 Bacterial blood culture - 03/30/18 17:05 Bacterial blood culture NG NR Gram stain microscopy - 03/30/18 17:55 GRAM STAIN RESULT FEW GRAM POSITIVE COCCI RESEMBLING STAPH NR Bacteria identification in wound by culture - 03/30/18 17:55 Bacteria identification in wound by culture [id number] NR FREE TEXT EXTERNAL SENSITIVITY REPORTED 03/31/18 16:30 NRG QUANTITY OF GROWTH Abundant Growth NRG MRSA AGAR MRSA isolated (Screening test for MRSA is positive) NR CALL POSITIVES (F1 HELP) CALLED TO ALFREDO CALZADA 03/31/18 8:30 BY Gely MEEKS [facility] Bacterial susceptibility panel - 03/30/18 17:55 Oxacillin susceptibility test by minimum inhibitory concentration > = NRG Gentamicin susceptibility test by minimum inhibitory concentration < = NRG Clindamycin susceptibility test by minimum inhibitory concentration <= NRG Erythromycin susceptibility test by minimum inhibitory concentration >= NRG Trimethoprim/sulfamethoxazole susceptibility test by minimum inhibitoryconcentration S NRG Vancomycin susceptibility test by minimum inhibitory concentration < = NRG Levofloxacin susceptibility test by minimum inhibitory concentration <= NRG Rifampin susceptibility test by minimum inhibitory concentration <= NRG Tetracycline susceptibility test by minimum inhibitory concentration <= NRG Sputum Gram stain - 03/30/18 19:27 GRAM STAIN SPUTUM AND MIXED BACTERIAL MU NRG Bacterial sputum culture - 03/30/18 19:27 Bacterial sputum culture NORMAL NRG Complete blood count (CBC) with automated white blood cell (WBC) differential - 03/31/18 04:09 Blood leukocytes automated count (number/volume) 5.7 10*3/uL 4.3-11.0 Blood erythrocytes automated count (number/volume) 3.71 10*6/uL 4.35-5.85 Venous blood hemoglobin measurement (mass/volume) 11.8 g/dL 11.5-16.0 Blood hematocrit (volume fraction) 36 % 35-52 Automated erythrocyte mean corpuscular volume 97 [foz_us] 80-99 Automated erythrocyte mean corpuscular hemoglobin (mass per erythrocyte) 32 pg 25-34 Automated erythrocyte mean corpuscular hemoglobin concentration measurement ( mass/volume) 33 g/dL 32-36 Automated erythrocyte distribution width ratio 14.4 % 10.0-14.5 Automated blood platelet count (count/volume) 218 10*3/uL 130-400 Automated blood platelet mean volume measurement 10.2 [foz_us] 7.4-10.4 Automated blood neutrophils/100 leukocytes 59 % 42-75 Automated blood lymphocytes/100 leukocytes 28 % 12-44 Blood monocytes/100 leukocytes 12 % 0-12 Automated blood eosinophils/100 leukocytes 1 % 0-10 Automated blood basophils/100 leukocytes 0 % 0-10 Blood neutrophils automated count (number/volume) 3.4 10*3 1.8-7.8 Blood lymphocytes automated count (number/volume) 1.6 10*3 1.0-4.0 Blood monocytes automated count (number/volume) 0.7 10*3 0.0-1.0 Automated eosinophil count 0.1 10*3/uL 0.0-0.3 Automated blood basophil count (count/volume) 0.0 10*3/uL 0.0-0.1 Whole blood basic metabolic panel - 03/31/18 04:09 Serum or plasma sodium measurement (moles/volume) 139 mmol/L 135-145 Serum or plasma potassium measurement (moles/volume) 3.5 mmol/L 3.6-5.0 Serum or plasma chloride measurement (moles/volume) 106 mmol/L 98-107 Carbon dioxide 22 mmol/L 21-32 Serum or plasma anion gap determination (moles/volume) 11 mmol/L 5-14 Serum or plasma urea nitrogen measurement (mass/volume) 12 mg/dL 7-18 Serum or plasma creatinine measurement (mass/volume) 0.96 mg/dL 0.60-1.30 Serum or plasma urea nitrogen/creatinine mass ratio 13 NRG Serum or plasma creatinine measurement with calculation of estimated glomerular filtration rate 59 NRG Serum or plasma glucose measurement (mass/volume) 126 mg/dL 70-105 Serum or plasma calcium measurement (mass/volume) 8.7 mg/dL 8.5-10.1 Vancomycin trough - 03/31/18 18:17 Vancomycin trough 17.3 ug/mL 10.0-20.0 Complete blood count (CBC) with automated white blood cell (WBC) differential - 04/01/18 04:45 Blood leukocytes automated count (number/volume) 4.2 10*3/uL 4.3-11.0 Blood erythrocytes automated count (number/volume) 3.84 10*6/uL 4.35-5.85 Venous blood hemoglobin measurement (mass/volume) 12.2 g/dL 11.5-16.0 Blood hematocrit (volume fraction) 38 % 35-52 Automated erythrocyte mean corpuscular volume 98 [foz_us] 80-99 Automated erythrocyte mean corpuscular hemoglobin (mass per erythrocyte) 32 pg 25-34 Automated erythrocyte mean corpuscular hemoglobin concentration measurement ( mass/volume) 32 g/dL 32-36 Automated erythrocyte distribution width ratio 14.0 % 10.0-14.5 Automated blood platelet count (count/volume) 218 10*3/uL 130-400 Automated blood platelet mean volume measurement 10.0 [foz_us] 7.4-10.4 Automated blood neutrophils/100 leukocytes 53 % 42-75 Automated blood lymphocytes/100 leukocytes 30 % 12-44 Blood monocytes/100 leukocytes 14 % 0-12 Automated blood eosinophils/100 leukocytes 3 % 0-10 Automated blood basophils/100 leukocytes 1 % 0-10 Blood neutrophils automated count (number/volume) 2.2 10*3 1.8-7.8 Blood lymphocytes automated count (number/volume) 1.3 10*3 1.0-4.0 Blood monocytes automated count (number/volume) 0.6 10*3 0.0-1.0 Automated eosinophil count 0.1 10*3/uL 0.0-0.3 Automated blood basophil count (count/volume) 0.0 10*3/uL 0.0-0.1 Whole blood basic metabolic panel - 04/01/18 04:45 Serum or plasma sodium measurement (moles/volume) 141 mmol/L 135-145 Serum or plasma potassium measurement (moles/volume) 3.7 mmol/L 3.6-5.0 Serum or plasma chloride measurement (moles/volume) 109 mmol/L 98-107 Carbon dioxide 20 mmol/L 21-32 Serum or plasma anion gap determination (moles/volume) 12 mmol/L 5-14 Serum or plasma urea nitrogen measurement (mass/volume) 13 mg/dL 7-18 Serum or plasma creatinine measurement (mass/volume) 0.94 mg/dL 0.60-1.30 Serum or plasma urea nitrogen/creatinine mass ratio 14 NRG Serum or plasma creatinine measurement with calculation of estimated glomerular filtration rate > NRG Serum or plasma glucose measurement (mass/volume) 122 mg/dL 70-105 Serum or plasma calcium measurement (mass/volume) 8.7 mg/dL 8.5-10.1 Complete blood count (CBC) with automated white blood cell (WBC) differential - 04/02/18 04:33 Blood leukocytes automated count (number/volume) 4.7 10*3/uL 4.3-11.0 Blood erythrocytes automated count (number/volume) 3.83 10*6/uL 4.35-5.85 Venous blood hemoglobin measurement (mass/volume) 12.3 g/dL 11.5-16.0 Blood hematocrit (volume fraction) 37 % 35-52 Automated erythrocyte mean corpuscular volume 97 [foz_us] 80-99 Automated erythrocyte mean corpuscular hemoglobin (mass per erythrocyte) 32 pg 25-34 Automated erythrocyte mean corpuscular hemoglobin concentration measurement ( mass/volume) 33 g/dL 32-36 Automated erythrocyte distribution width ratio 14.2 % 10.0-14.5 Automated blood platelet count (count/volume) 233 10*3/uL 130-400 Automated blood platelet mean volume measurement 9.6 [foz_us] 7.4-10.4 Automated blood neutrophils/100 leukocytes 61 % 42-75 Automated blood lymphocytes/100 leukocytes 26 % 12-44 Blood monocytes/100 leukocytes 11 % 0-12 Automated blood eosinophils/100 leukocytes 2 % 0-10 Automated blood basophils/100 leukocytes 0 % 0-10 Blood neutrophils automated count (number/volume) 2.8 10*3 1.8-7.8 Blood lymphocytes automated count (number/volume) 1.2 10*3 1.0-4.0 Blood monocytes automated count (number/volume) 0.5 10*3 0.0-1.0 Automated eosinophil count 0.1 10*3/uL 0.0-0.3 Automated blood basophil count (count/volume) 0.0 10*3/uL 0.0-0.1 Whole blood basic metabolic panel - 04/02/18 04:33 Serum or plasma sodium measurement (moles/volume) 141 mmol/L 135-145 Serum or plasma potassium measurement (moles/volume) 3.8 mmol/L 3.6-5.0 Serum or plasma chloride measurement (moles/volume) 109 mmol/L 98-107 Carbon dioxide 21 mmol/L 21-32 Serum or plasma anion gap determination (moles/volume) 11 mmol/L 5-14 Serum or plasma urea nitrogen measurement (mass/volume) 7 mg/dL 7-18 Serum or plasma creatinine measurement (mass/volume) 0.80 mg/dL 0.60-1.30 Serum or plasma urea nitrogen/creatinine mass ratio 9 NRG Serum or plasma creatinine measurement with calculation of estimated glomerular filtration rate > NRG Serum or plasma glucose measurement (mass/volume) 121 mg/dL 70-105 Serum or plasma calcium measurement (mass/volume) 9.0 mg/dL 8.5-10.1 C DIFFICILE AG + TOXIN A/B. - 04/02/18 05:20 RESULTS NEGATIVE FOR ANTIGEN AND TOXIN A/B NRG Complete blood count (CBC) with automated white blood cell (WBC) differential - 04/03/18 07:15 Blood leukocytes automated count (number/volume) 3.8 10*3/uL 4.3-11.0 Blood erythrocytes automated count (number/volume) 3.77 10*6/uL 4.35-5.85 Venous blood hemoglobin measurement (mass/volume) 11.9 g/dL 11.5-16.0 Blood hematocrit (volume fraction) 37 % 35-52 Automated erythrocyte mean corpuscular volume 98 [foz_us] 80-99 Automated erythrocyte mean corpuscular hemoglobin (mass per erythrocyte) 32 pg 25-34 Automated erythrocyte mean corpuscular hemoglobin concentration measurement ( mass/volume) 32 g/dL 32-36 Automated erythrocyte distribution width ratio 14.1 % 10.0-14.5 Automated blood platelet count (count/volume) 238 10*3/uL 130-400 Automated blood platelet mean volume measurement 9.4 [foz_us] 7.4-10.4 Automated blood neutrophils/100 leukocytes 52 % 42-75 Automated blood lymphocytes/100 leukocytes 30 % 12-44 Blood monocytes/100 leukocytes 16 % 0-12 Automated blood eosinophils/100 leukocytes 2 % 0-10 Automated blood basophils/100 leukocytes 1 % 0-10 Blood neutrophils automated count (number/volume) 2.0 10*3 1.8-7.8 Blood lymphocytes automated count (number/volume) 1.1 10*3 1.0-4.0 Blood monocytes automated count (number/volume) 0.6 10*3 0.0-1.0 Automated eosinophil count 0.1 10*3/uL 0.0-0.3 Automated blood basophil count (count/volume) 0.0 10*3/uL 0.0-0.1 Whole blood basic metabolic panel - 04/03/18 07:15 Serum or plasma sodium measurement (moles/volume) 141 mmol/L 135-145 Serum or plasma potassium measurement (moles/volume) 3.7 mmol/L 3.6-5.0 Serum or plasma chloride measurement (moles/volume) 106 mmol/L 98-107 Carbon dioxide 26 mmol/L 21-32 Serum or plasma anion gap determination (moles/volume) 9 mmol/L 5-14 Serum or plasma urea nitrogen measurement (mass/volume) 8 mg/dL 7-18 Serum or plasma creatinine measurement (mass/volume) 0.84 mg/dL 0.60-1.30 Serum or plasma urea nitrogen/creatinine mass ratio 10 NRG Serum or plasma creatinine measurement with calculation of estimated glomerular filtration rate > NRG Serum or plasma glucose measurement (mass/volume) 131 mg/dL 70-105 Serum or plasma calcium measurement (mass/volume) 9.1 mg/dL 8.5-10.1 Encounters ACCT No. Visit Date/Time Discharge Status Pt. Type Provider Facility Loc./Unit Complaint [id number] 08/23/2014 15:10:00 08/23/2014 23:59:59 CLS Outpatient KAYLEIGH STEEL APRN [id number] 11/23/2013 09:50:00 11/23/2013 23:59:59 CLS Outpatient KAYLEIGH STEEL APRN [id number] 08/31/2013 09:46:00 08/31/2013 23:59:59 CLS Outpatient KAYLEIGH STEEL APRN [id number] 09/28/2012 15:32:08 09/28/2012 23:59:59 CLS Outpatient [place] KAYLEIGH SALAS [id number] 09/28/2012 15:16:00 09/28/2012 23:59:59 CLS Outpatient [id number] 03/30/2018 16:49:00 04/03/2018 14:20:00 DIS Inpatient KARTHIKEYAN MCLEOD, GABRIELA Cervantes [facility] 4TH ABDOMINAL WALL CELLULITIS [id number] 02/08/2018 07:17:00 02/08/2018 23:59:59 CLS Preadmit FABIENNE ZAMORA DO [facility] RAD SCREENING [id number] 09/28/2017 07:57:00 09/28/2017 23:59:59 CLS Outpatient KATHRIN GARCÍA APRN [facility] RT J98.4 RESTIRCTIVE LUNG DISEASE [id number] 02/21/2017 15:00:00 02/21/2017 23:59:59 CLS Preadmit JENNY TORRES DO [facility] PULM EXCESSVIE SLEEPINESS, OBESITY,MOOD DISORDER [id number] 11/22/2016 14:51:00 02/20/2017 00:01:00 DIS Outpatient JENNY TORRES DO [facility] PULM EXCESSVIE SLEEPINESS, OBESITY,MOOD DISORDER [id number] 08/04/2016 16:04:00 08/04/2016 23:59:59 CLS Outpatient JENNY TORRES DO [facility] RT RALPH,OBESITY,RA [id number] 09/23/2015 20:31:00 09/23/2015 22:57:00 DIS Emergency VIOLETA STOLL MD [facility] ER LOWER ABD PAIN [id number] 07/31/2015 15:19:00 08/04/2015 11:00:00 DIS Inpatient FABIENNE ZAMORA DO [facility] 4TH STATUS ASTHMATICUS [id number] 10/15/2013 20:04:00 10/16/2013 05:35:00 DIS Outpatient JENNY TORRES DO [facility] SLEEP SNORING,HTN [id number] 10/03/2013 10:12:00 10/03/2013 12:40:00 DIS Emergency SOL MCLEOD, REGINA Montoya [facility] ER ASTHMA COUGH/SOA [id number] 08/16/2013 14:22:00 08/16/2013 23:59:59 CLS Outpatient JENNY TORRES DO [facility] RAD BACTERIAL PNEUMONIA, DYSPENA [id number] 08/10/2013 13:24:00 08/13/2013 14:00:00 DIS Inpatient NOAH SPIVEY FABIENNE [facility] 4TH NEUROMA 3RD INTERSPACE RIGHT FOOT [id number] 08/08/2013 15:32:00 08/08/2013 23:59:59 CLS Outpatient CHRISTOPHE AVALOS DPM [facility] PREOP NEUROMA 33RD INTERSPACE RIGHT FOOT [id number] 06/27/2018 16:01:00 Document Registration [id number] 01/21/2015 07:30:00 Document Registration [id number] 01/20/2015 15:22:00 Document Registration [id number] 11/22/2014 11:23:00 Document Registration [id number] 02/22/2013 11:33:00 Document Registration [id number] 08/17/2012 11:39:00 Document Registration [id number] 05/26/2012 05:36:00 Document Registration [id number] 05/18/2012 12:37:00 Document Registration [id number] 12/10/2011 08:10:00 Document Registration [id number] 12/04/2011 16:02:00 Document Registration [id number] 10/01/2011 10:47:00 Document Registration [id number] 03/17/2011 13:59:00 Document Registration [id number] 03/17/2011 07:09:00 Document Registration [id number] 01/18/2011 09:31:00 Document Registration [id number] 01/30/2010 11:44:00 Document Registration [id number] 11/24/2018 08:50:00 11/24/2018 23:59:59 CLS Outpatient MILANA ALEXANDRE [facility] [id number] 12/30/2016 10:32:00 12/30/2016 23:59:00 DIS Outpatient Avery Syed
[2019-01-04] MEDS ORDERED: PIPERACILLIN/TAZOBACTAM (BULK) 4.5 GM in NS (IVPB) 100 ML IV NR (18:15)
[2019-01-04] MEDS: RT-ALBUTEROL/IPRATROPIUM 3 ML (DUONEB) VIAL INH SCH ×2 (18:26→23:14)
[2019-01-04] MEDS: RT-BUDESONIDE NEBS 0.5 MG/2ML (PULMICORT) AMP INH SCH (18:26)
[2019-01-04] MEDS: methylPREDNISolone 125 MG (Solu-MEDROL) VIAL IVP SCH (18:33)
[2019-01-04] MEDS: guaiFENesin/CODEINE (ROBITUSSIN AC) 10ML UDC PO PRN (18:42)
[2019-01-04 19:02] LABS: BASOPHILS % (AUTO) 1 % (0-10); EOSINOPHILS % (AUTO) 0 % (0-10); HEMATOCRIT 42 % (35-52); HEMOGLOBIN 13.6 G/DL (11.5-16.0); LYMPHOCYTES # (AUTO) 0.6 X 10^3 (1.0-4.0); LYMPHOCYTES % (AUTO) 16 % (12-44); MEAN CORPUSCULAR HEMOGLOBIN 32 PG (25-34); MEAN CORPUSCULAR HGB CONC 33 G/DL (32-36); MEAN CORPUSCULAR VOLUME 97 FL (80-99); MONOCYTES # (AUTO) 0.2 X 10^3 (0.0-1.0); MONOCYTES % (AUTO) 5 % (0-12); NEUTROPHILS # (AUTO) 3.1 X 10^3 (1.8-7.8); NEUTROPHILS % (AUTO) 78 % (42-75); PLATELET COUNT 241 10^3/uL (130-400); WHITE BLOOD COUNT 3.9 10^3/uL (4.3-11.0)
[2019-01-04 19:17] LABS: ALANINE AMINOTRANSFERASE 27 U/L (0-55); ALKALINE PHOSPHATASE 113 U/L (40-136); BILIRUBIN,TOTAL 0.4 MG/DL (0.1-1.0); BUN/CREATININE RATIO 19; CALCIUM 9.8 MG/DL (8.5-10.1); CARBON DIOXIDE 24 MMOL/L (21-32); CREATININE SERUM 0.93 MG/DL (0.60-1.30); GFR ESTIMATED > 60; GLUCOSE 163 MG/DL (70-105); TOTAL PROTEIN 7.6 GM/DL (6.4-8.2)
--- NOTE | 2019-01-04 19:31 | Diagnostic Imaging Report ---
INDICATION: Cough and shortness of breath. Comparison is made with prior examination from 06/27/18. FINDINGS: The heart size, mediastinal configuration, and pulmonary vascularity are within normal limits. There is no pleural effusion, pneumothorax, or pneumonia. The osseous structures are unremarkable. IMPRESSION: No acute cardiopulmonary abnormality. Dictated by: Dictated on workstation # [id number]
[2019-01-04 19:35] LABS: CHLORIDE 103 MMOL/L (98-107); POTASSIUM 3.9 MMOL/L (3.6-5.0); SODIUM 139 MMOL/L (135-145)
[2019-01-04 20:00] VITALS: BP 143/74
[2019-01-04] MEDS: inSUlin ASPART (NovoLOG) 1 UNIT/0.01 ML (CHARGE PER UNIT) SC SCH (20:57)
[2019-01-04] MEDS: inSUlin DETERMIR 1 UNIT/0.01 ML (LEVEMIR) CHARGE PER UNIT SQ SCH (20:57)
[2019-01-04] MEDS: POLYETHYLENE GLYCOL 17 GM (MIRALAX) PACK PO SCH (20:57)
[2019-01-04] MEDS: NS IV 1000 ML 1,000 ML IV SCH (22:30)
[2019-01-05] VITALS: BP 130/71
[2019-01-05] MEDS: methylPREDNISolone 125 MG (Solu-MEDROL) VIAL IVP SCH ×4 (00:37→19:02)
[2019-01-05] MEDS: PIPERACILLIN/TAZOBACTAM (BULK) 4.5 GM in NS (IVPB) 100 ML IV SCH ×3 (00:38→16:23)
[2019-01-05] MEDS: RT-ALBUTEROL/IPRATROPIUM 3 ML (DUONEB) VIAL INH SCH ×5 (03:17→22:28)
[2019-01-05 03:46] LABS: BASOPHILS % (AUTO) 0 % (0-10); EOSINOPHILS % (AUTO) 0 % (0-10); HEMATOCRIT 41 % (35-52); HEMOGLOBIN 13.1 G/DL (11.5-16.0); LYMPHOCYTES # (AUTO) 0.6 X 10^3 (1.0-4.0); LYMPHOCYTES % (AUTO) 19 % (12-44); MEAN CORPUSCULAR HEMOGLOBIN 31 PG (25-34); MEAN CORPUSCULAR HGB CONC 32 G/DL (32-36); MEAN CORPUSCULAR VOLUME 97 FL (80-99); MEAN PLATELET VOLUME 10.3 FL (7.4-10.4); MONOCYTES # (AUTO) 0.1 X 10^3 (0.0-1.0); MONOCYTES % (AUTO) 2 % (0-12); NEUTROPHILS # (AUTO) 2.6 X 10^3 (1.8-7.8); NEUTROPHILS % (AUTO) 79 % (42-75); PLATELET COUNT 219 10^3/uL (130-400); RED CELL DISTRIBUTION WIDTH 13.8 % (10.0-14.5); WHITE BLOOD COUNT 3.3 10^3/uL (4.3-11.0)
[2019-01-05 04:00] VITALS: BP 147/86
[2019-01-05 04:03] LABS: ALANINE AMINOTRANSFERASE 24 U/L (0-55); ALBUMIN 3.8 GM/DL (3.2-4.5); ALKALINE PHOSPHATASE 100 U/L (40-136); BILIRUBIN,TOTAL 0.4 MG/DL (0.1-1.0); BUN/CREATININE RATIO 26; CALCIUM 9.4 MG/DL (8.5-10.1); CARBON DIOXIDE 22 MMOL/L (21-32); CHLORIDE 106 MMOL/L (98-107); CREATININE SERUM 0.89 MG/DL (0.60-1.30); GFR ESTIMATED > 60; GLUCOSE 167 MG/DL (70-105); SODIUM 139 MMOL/L (135-145); TOTAL PROTEIN 7.2 GM/DL (6.4-8.2)
[2019-01-05] MEDS: inSUlin ASPART (NovoLOG) 1 UNIT/0.01 ML (CHARGE PER UNIT) SC SCH ×4 (05:32→21:37)
--- NOTE | 2019-01-05 06:25 | Pulmonary Consultation ---
History of Present Illness History of Present Illness Date of Consultation 01/05/19 06:21 Time Seen by Provider: 06:21 Date of Admission History of Present Illness 58yo with hx of asthma, COPD, presented as direct admit from Dr. Jimenez's office secondary to Fever, progressive cough, body aches. She tested positive for influenza B. Pt did have influenza vaccination this year. Allergies and Home Medications Allergies Coded Allergies: amlodipine (Verified Allergy, Unknown, 02/22/13) erythromycin base (Verified Allergy, Unknown, 02/22/13) Home Medications Adalimumab 40 Mg/0.8 Ml Pen.ij.kit, INJ EVERY OTHER TUESDAY, (Reported) Albuterol Sulfate 1 Puff Puff, 2 PUFF INH Q4H PRN for SHORTNESS OF BREATH, ( Reported) Atorvastatin Calcium 20 Mg Tablet, 20 MG PO DAILY, (Reported) Cetirizine HCl 10 Mg Tablet, 10 MG PO BID, (Reported) Cholecalciferol (Vitamin D3) 2,000 Unit Capsule, 2,000 UNIT PO DAILY, (Reported) Citalopram Hydrobromide 10 Mg Tablet, 10 MG PO DAILY, (Reported) Clindamycin HCl 150 Mg Capsule, 300 MG PO Q6HR Prescribed by: MARINO JAIME on 04/03/18 1356 Clonidine HCl 0.1 Mg Tablet, 0.1 MG PO TID, (Reported) Cyclobenzaprine HCl 10 Mg Tablet, 10 MG PO TID PRN for MUSCLE SPASMS, (Reported) Fluticasone Propionate 16 Gm [place].susp, 2 SPRAYS NS HS, (Reported) Fluticasone/Vilanterol 1 Each Blst.w.dev, 1 PUFF INH HS, (Reported) Folic Acid 1 Mg Tablet, 1 MG PO DAILY, (Reported) Glucosamine HCl/Chondr [place] A Na 1 Each Tablet, 1 TAB PO BID, (Reported) Ibuprofen 200 Mg Tablet, 800 MG PO TID PRN for PAIN-MILD, (Reported) Ipratropium/Albuterol Sulfate 3 Ml Ampul.neb, 3 ML IH QID PRN for SHORTNESS OF BREATH, (Reported) Levothyroxine Sodium 50 Mcg Tablet, 50 MCG PO DAILY, (Reported) Losartan Potassium 50 Mg Tablet, 50 MG PO DAILY, (Reported) Methotrexate Tablet 2.5 Mg Tablet, 20 MG PO Fr, (Reported) TAKES 8 (2.5MG) TABLETS Montelukast Sodium 10 Mg Tablet, 10 MG PO DAILY, (Reported) Tiotropium [place] 4 Gm Mist.inhal, 2 PUFF INH DAILY, (Reported) Triamterene/Hydrochlorothiazid 1 Each Capsule, 1 CAP PO DAILY, (Reported) Past Sbxqble-Ziutnv-Huwczs Hx Patient Social History Alcohol Use: Denies Use Recreational Drug Use: No Recent Foreign Travel: No Contact w/Someone Who Travel: No Recent Infectious Disease Expo: No Recent Hopitalizations: No Immunizations Up To Date Tetanus Booster (TDap): Less than 5yrs PED Vaccines UTD: No Date of Pneumonia Vaccine: Jan 04, 2015 Date of Influenza Vaccine: Aug 14, 2018 Seasonal Allergies Seasonal Allergies: No Past Medical History Surgeries: Yes (foot) Orthopedic Respiratory: Yes Asthma, Sleep Apnea Currently Using CPAP: Yes Currently Using BIPAP: No Cardiac: No High Cholesterol, Hypertension Neurological: No Neuropathy 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 Disorders: No Sexually Transmitted Disease: No Genitourinary: No Bladder Infection Gastrointestinal: No Musculoskeletal: Yes Rheumatoid Arthritis Endocrine: No Hypothyroidsim HEENT: No Loss of Vision: Denies Hearing Impairment: Denies Cancer: No Psychosocial: No Integumentary: No Blood Disorders: No Adverse Reaction/Blood Tranf: No Family Medical History Alcoholism G8 BROTHER G8 SISTER Alzheimer's disease 19 MOTHER Arthritis 19 FATHER Asthma G8 SISTER Cardiovascular disease 19 FATHER Cataracts 19 FATHER Coronary thrombosis 19 FATHER Deafness or hearing loss SON Diabetes mellitus 19 FATHER G8 SISTER G8 SISTER Drug abuse G8 SISTER Hypertension 19 FATHER G8 SISTER G8 SISTER Kidney disease 19 FATHER Respiratory disorder G8 SISTER G8 SISTER Seizure disorder SON Severe allergy SON Heart Disease, Diabetes, Hypertension Sepsis Event Evaluation Height, Weight, BMI Height: 5'6.00" Weight: 297lbs. 0.0oz. 134.575121qo; 47.9 BMI Method:Stated Exam Exam Vital Signs Date Time Temp Pulse Resp B/P (MAP) Pulse Ox O2 Delivery O2 Flow Rate FiO2 01/05/19 04:00 97.3 01/05/19 04:00 66 16 147/86 (106) 94 Room Air 01/05/19 02:47 95 Room Air 01/05/19 01:00 68 01/05/19 00:00 97.8 67 14 130/71 (90) 94 Room Air 01/04/19 23:14 97 Room Air 01/04/19 20:00 81 16 143/74 (97) 96 Room Air 01/04/19 20:00 94 Room Air 01/04/19 19:00 83 01/04/19 18:57 98.3 01/04/19 18:53 Room Air 01/04/19 18:47 84 01/04/19 18:33 99 Room Air 01/04/19 18:27 95 Room Air I & O 01/05/19 07:00 Intake Total 320 ml Output Total 750 ml Balance -430 ml Height & Weight Height: 5'6.00" Weight: 297lbs. 0.0oz. 134.407643hv; 47.9 BMI Method:Stated Results Lab Laboratory Tests 01/04/19 18:37 01/05/19 03:15 Assessment/Plan Assessment/Plan Influenza -PT does not want Tamiflu -Check UA AsthmaAE -SVNS -SolumeJENNY Berry DO Jan 05, 2019 06:25
[2019-01-05] MEDS: RT-BUDESONIDE NEBS 0.5 MG/2ML (PULMICORT) AMP INH SCH ×2 (07:32→18:36)
[2019-01-05] MEDS: NS IV 1000 ML 1,000 ML IV SCH ×2 (08:09→16:24)
[2019-01-05] MEDS: ROFLUMILAST 500 MCG TAB (DALIRESP) PO SCH (08:10)
[2019-01-05] MEDS: POLYETHYLENE GLYCOL 17 GM (MIRALAX) PACK PO SCH ×2 (08:11→21:30)
[2019-01-05] MEDS: guaiFENesin/CODEINE (ROBITUSSIN AC) 10ML UDC PO PRN ×2 (08:26→15:13)
[2019-01-05 08:30] VITALS: BP 167/82
[2019-01-05] MEDS: OSELTAMIVIR 75 MG (TAMIFLU) CAPSULE PO SCH ×2 (08:41→21:30)
[2019-01-05] MEDS ORDERED: FAMO40TA6 PO (09:11)
[2019-01-05] MEDS ORDERED: PRD20T PO (09:12)
[2019-01-05] MEDS ORDERED: LEVO500T80 PO (09:12)
--- NOTE | 2019-01-05 09:12 | NUR ---
WENT OVER THE EXT MED HX WITH THE PATIENT AND SHE VERIFIED HOW SHE TAKES EACH MEDICATION. HER CELEXA IS FILLED FOR 2 TABS DAILY HOWEVER SHE STATES SHE IS ONLY TAKING 1 DAILY CURRENTLY. HER CURRENT METHOTREXATE DOSE IS 4 TABS ON FRIDAYS.
[2019-01-05 10:36] LABS: BILIRUBIN,URINE NEGATIVE (NEGATIVE); CLARITY,URINE CLEAR; COLOR,URINE YELLOW; GLUCOSE, URINE (UA) 3+ (NEGATIVE); KETONES,URINE NEGATIVE (NEGATIVE); LEUKOCYTE ESTERASE ,URINE NEGATIVE (NEGATIVE); NITRITE,URINE NEGATIVE (NEGATIVE); PH,URINE 6 (5-9); PROTEIN,URINE 2+ (NEGATIVE); UROBILINOGEN,URINE NORMAL (NORMAL)
[2019-01-05 10:54] LABS: BACTERIA,URINE NEGATIVE /HPF; SQUAMOUS EPITHELIAL CELL,UR 0-2 /HPF
[2019-01-05] MEDS: ENOXAPARIN 40 MG/0.4 ML (LOVENOX) SYR SC SCH ×2 (11:26→21:53)
--- NOTE | 2019-01-05 11:35 | History & Physical-Hospitalist ---
History of Present Illness HPI/Chief Complaint CC: Wheezing HPI: This is a 58-year-old white female clinic patient of mine who I directly admitted after seeing in clinic for an urgent appointment due to severe wheezing and status asthmaticus and failed oral antibiotic and steroid treatment as an outpatient initiated by urgent care. I admitted her completed sepsis workup and patient was found to have influenza B with exacerbation of asthma. Currently she is doing much better responded to IV fluids and IV steroids and nebulizer treatments but she has refused to take Tamiflu since she has heard of side effects. She is doing much better and we'll restart all of her home medicine. Source: patient, family Date Seen 01/05/19 Time Seen by a Provider: 09:00 Attending Physician Shayla Jimenez DO PCP Shayla Jimenez DO Referring Physician Date of Admission Jan 04, 2019 at 17:58 Home Medications & Allergies Home Medications Reviewed patient Home Medication Reconciliation performed by pharmacy medication reconciliations lawn and garden technician and/or nursing. Patients Allergies have been reviewed. Allergies Allergies Coded Allergies amlodipine (Verified Allergy, Unknown, 02/22/13) erythromycin base (Verified Allergy, Unknown, 02/22/13) Past Cjxnrmh-Fpaafj-Ugqrgm Hx Past Med/Social Hx: Reviewed Nursing Past Med/Soc Hx, Reviewed and Corrections made Patient Social History Marrital Status: Employed/Student: employed Alcohol Use: Denies Use Recreational Drug Use: No Smoking Status: Never a Smoker Physical Abuse Screen: No Sexual Abuse: No Recent Foreign Travel: No Contact w/other who traveled: No Recent Hopitalizations: No Recent Infectious Disease Expo: No Immunizations Up To Date Tetanus Booster (TDap): Less than 5yrs Pediatric: No Date of Pneumonia Vaccine: Jan 04, 2015 Date of Influenza Vaccine: Aug 14, 2018 Seasonal Allergies Seasonal Allergies: No Past Medical History Surgeries: Orthopedic Respiratory: Asthma, Chronic Bronchitis Currently Using CPAP: Yes Currently Using BIPAP: No Cardiac: High Cholesterol, Hypertension Neurological: Neuropathy 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: No Sexually Transmitted Disease: No Genitourinary: Bladder Infection Musculoskeletal: Rheumatoid Arthritis Endocrine: Hypothyroidsim Loss of Vision: Denies Hearing Impairment: Denies History of Blood Disorders: No Adverse Reaction to Blood [place]: No Family History Alcoholism G8 BROTHER G8 SISTER Alzheimer's disease 19 MOTHER Arthritis 19 FATHER Asthma G8 SISTER Cardiovascular disease 19 FATHER Cataracts 19 FATHER Coronary thrombosis 19 FATHER Deafness or hearing loss SON Diabetes mellitus 19 FATHER G8 SISTER G8 SISTER Drug abuse G8 SISTER Hypertension 19 FATHER G8 SISTER G8 SISTER Kidney disease 19 FATHER Respiratory disorder G8 SISTER G8 SISTER Seizure disorder SON Severe allergy SON Heart Disease, Diabetes, Hypertension Review of Systems Constitutional: see HPI, fever, malaise, weakness EENTM: no symptoms reported Respiratory: dyspnea on exertion, short of breath, wheezing Cardiovascular: no symptoms reported Gastrointestinal: no symptoms reported Genitourinary: no symptoms reported Musculoskeletal: no symptoms reported Skin: no symptoms reported Psychiatric/Neurological: No Symptoms Reported All Other Systems Reviewed Negative Unless Noted: Yes Physical Exam Physical Exam Vital Signs Vital Signs - First Documented 01/04/19 01/04/19 01/04/19 01/04/19 18:27 18:47 18:57 20:00 Temp 98.3 Pulse 84 Resp 16 B/P (MAP) 143/74 (97) Pulse Ox 95 O2 Delivery Room Air Capillary Refill : Height, Weight, BMI Height: 5'6.00" Weight: 297lbs. 0.0oz. 134.376744cj; 47.9 BMI Method:Stated General Appearance: No Apparent Distress, WD/WN, Chronically ill, Mild Distress , Obese Eyes: Right Eye Normal Inspection, Right Eye PERRL HEENT: PERRL/EOMI, Normal ENT Inspection, Pharynx Normal, Moist Mucous Membranes Neck: Full Range of Motion, Normal Inspection, Non Tender Respiratory: Chest Non Tender, Accessory Muscle Use, Crackles, Decreased Breath Sounds, Respiratory Distress, Wheezing Cardiovascular: Regular Rate, Rhythm, No Edema, No Gallop, No JVD, No Murmur, Normal Peripheral Pulses Gastrointestinal: Normal Bowel Sounds, No Organomegaly, No Pulsatile Mass, Non Tender, Soft Back: Normal Inspection, No CVA Tenderness, No Vertebral Tenderness Extremity: Normal Capillary Refill, Normal Inspection, Normal Range of Motion, Non Tender, No Calf Tenderness, No Pedal Edema Neurologic/Psychiatric: Alert, Oriented x3, No Motor/Sensory Deficits, Normal Mood/Affect Skin: Normal Color, Warm/Dry Lymphatic: No Adenopathy Results Results/Procedures Labs Laboratory Tests 01/04/19 18:37 01/05/19 03:15 Patient resulted labs reviewed. Assessment/Plan Admission Diagnosis Assessment: Respiratory insufficiency Presumed pneumonia Acute influenza B Status asthmaticus Rheumatoid arthritis on immunosuppressive's Obesity lost 79 pounds last 8 months Hypertension Diabetes mellitus Allergies Hyperlipidemia Plan: IV steroids Ambulation Antibiotics Admission Status: Inpatient Order (span 2 midnights) Reason for Inpatient Admission: Status asthmaticus and failed PO steroids and abx Diagnosis/Problems Diagnosis/Problems (1) Influenza B Status: Acute (2) Acute bronchitis, bacterial Status: Acute (3) Status asthmaticus Status: Acute Qualifiers: Asthma severity: moderate Asthma persistence: persistent Qualified Codes : J45.42 - Moderate persistent asthma with status asthmaticus (4) Diabetes mellitus Status: Chronic Qualifiers: Diabetes mellitus type: type 2 Diabetes mellitus retirement insulin use: without retirement use Diabetes mellitus complication status: without complication Qualified Codes: E11.9 - Type 2 diabetes mellitus without complications (5) Rheumatoid arthritis Status: Chronic Qualifiers: Rheumatoid arthritis location: unspecified site Rheumatoid factor presence : with rheumatoid factor Qualified Codes: M05.9 - Rheumatoid arthritis with rheumatoid factor, unspecified (6) Hypothyroidism Status: Chronic Qualifiers: Hypothyroidism type: acquired Qualified Codes: E03.9 - Hypothyroidism, unspecified (7) Hypertension Status: Chronic Qualifiers: Hypertension type: essential hypertension Qualified Codes: I10 - Essential (primary) hypertension Clinical Quality Measures DVT/VTE Risk/Contraindication: Risk Factor Score Per Nursin RFS Level Per Nursing on Admit: 3=High SHAYLA JIMENEZ DO Jan 05, 2019 11:35
[2019-01-05 12:00] VITALS: BP 140/66
[2019-01-05] MEDS: cloNIDine 0.1 MG (CATAPRES) TAB PO SCH ×2 (15:13→21:45)
[2019-01-05 16:05] VITALS: BP 146/65
[2019-01-05] MEDS: RT-ADVAIR HFA 115/21 MCG PER PUFF IH SCH (18:34)
[2019-01-05 19:53] VITALS: BP 117/50
[2019-01-05] MEDS: ATORVASTATIN 20 MG (LIPITOR) TABLET PO SCH (21:44)
[2019-01-05] MEDS: LORATADINE (CLARITIN) 10 MG TAB PO SCH (21:45)
[2019-01-05] MEDS: FAMOTIDINE 20 MG (PEPCID) TABLET PO SCH (21:45)
[2019-01-05] MEDS: inSUlin DETERMIR 1 UNIT/0.01 ML (LEVEMIR) CHARGE PER UNIT SQ SCH (21:49)
[2019-01-05] MEDS: MELATONIN 3 MG TABLET PO PRN (22:33)
[2019-01-06 00:15] VITALS: BP 122/58
[2019-01-06] MEDS: methylPREDNISolone 125 MG (Solu-MEDROL) VIAL IVP SCH ×3 (00:32→11:42)
[2019-01-06] MEDS: PIPERACILLIN/TAZOBACTAM (BULK) 4.5 GM in NS (IVPB) 100 ML IV SCH ×3 (00:33→15:53)
[2019-01-06] MEDS: RT-ALBUTEROL/IPRATROPIUM 3 ML (DUONEB) VIAL INH SCH ×6 (02:44→22:30)
[2019-01-06 04:05] VITALS: BP 132/64
[2019-01-06] MEDS: NS IV 1000 ML 1,000 ML IV SCH (04:51)
[2019-01-06] MEDS: LEVOTHYROXINE 50 MCG (LEVOTHROID) TAB PO SCH (05:52)
[2019-01-06] MEDS: inSUlin ASPART (NovoLOG) 1 UNIT/0.01 ML (CHARGE PER UNIT) SC SCH ×4 (05:54→21:19)
[2019-01-06] MEDS: RT-ADVAIR HFA 115/21 MCG PER PUFF IH SCH ×2 (06:53→19:13)
[2019-01-06] MEDS: RT-BUDESONIDE NEBS 0.5 MG/2ML (PULMICORT) AMP INH SCH ×2 (06:53→19:04)
--- NOTE | 2019-01-06 07:54 | Pulmonary Progress Note ---
Sepsis Event Evaluation Height, Weight, BMI Height: 5'6.00" Weight: 297lbs. 0.0oz. 134.958489zs; 47.9 BMI Method:Stated Focused Exam Lactate Level 01/04/19 18:37: Lactic Acid Level 2.90*H 01/04/19 21:00: Lactic Acid Level 2.61*H 01/05/19 03:15: Lactic Acid Level 1.55 Exam Exam Vital Signs Date Time Temp Pulse Resp B/P (MAP) Pulse Ox O2 Delivery O2 Flow Rate FiO2 01/06/19 06:53 Room Air 91 01/06/19 04:05 97.8 61 20 132/64 (86) 93 Room Air 01/06/19 02:44 Room Air 90 01/06/19 00:15 96.8 61 18 122/58 (79) 92 Room Air 01/05/19 22:28 Room Air 92 01/05/19 20:00 Room Air 01/05/19 19:53 98.4 68 20 117/50 (72) 94 Room Air 01/05/19 18:31 Room Air 95 01/05/19 16:05 100.1 74 20 146/65 (92) 92 Room Air 01/05/19 13:16 Room Air 01/05/19 12:00 98.2 71 18 140/66 (90) 91 Room Air 01/05/19 08:30 167/82 (110) 01/05/19 08:00 94 Room Air I & O 01/06/19 07:00 Intake Total 1500 ml Balance 1500 ml Height & Weight Height: 5'6.00" Weight: 297lbs. 0.0oz. 134.058546nx; 47.9 BMI Method:Stated General Appearance: No Apparent Distress, WD/WN, Chronically ill, Mild Distress , Obese HEENT: PERRL/EOMI, Normal ENT Inspection, Pharynx Normal, Moist Mucous Membranes Neck: Full Range of Motion, Normal Inspection, Non Tender Respiratory: Chest Non Tender, Accessory Muscle Use, Crackles, Decreased Breath Sounds, Respiratory Distress, Wheezing Cardiovascular: Regular Rate, Rhythm, No Edema, No Gallop, No JVD, No Murmur, Normal Peripheral Pulses Extremity: Normal Capillary Refill, Normal Inspection, Normal Range of Motion, Non Tender, No Calf Tenderness, No Pedal Edema Neurologic/Psychiatric: Alert, Oriented x3, No Motor/Sensory Deficits, Normal Mood/Affect Skin: Normal Color, Warm/Dry Lymphatic: No Adenopathy Results Lab Laboratory Tests 01/04/19 18:37 01/05/19 03:15 Assessment/Plan Assessment/Plan Influenza -PT does not want Tamiflu AsthmaAE -SVNS -Solumedrol JENNY TORRES DO Jan 06, 2019 07:54
[2019-01-06 08:20] VITALS: BP 158/76
[2019-01-06] MEDS: TRIAMTERENE/HCTZ 75-50 (MAXZIDE,DYAZIDE) TABLET PO SCH (09:21)
[2019-01-06] MEDS: LORATADINE (CLARITIN) 10 MG TAB PO SCH ×2 (09:22→21:18)
[2019-01-06] MEDS: MONTELUKAST 10 MG (SINGULAIR) TAB PO SCH (09:22)
[2019-01-06] MEDS: FOLIC ACID 1 MG TAB PO SCH (09:22)
[2019-01-06] MEDS: VITAMIN D3 1,000 UNITS (CHOLECALCIFEROL) TABLET PO SCH (09:22)
[2019-01-06] MEDS: LOSARTAN 50 MG (COZAAR) TAB PO SCH (09:23)
[2019-01-06] MEDS: ROFLUMILAST 500 MCG TAB (DALIRESP) PO SCH (09:24)
[2019-01-06] MEDS: FLUTICASONE NASAL SPRAY (FLONASE) 16 GM BTL NS SCH (09:25)
[2019-01-06] MEDS: ENOXAPARIN 40 MG/0.4 ML (LOVENOX) SYR SC SCH ×2 (09:25→21:19)
[2019-01-06] MEDS: cloNIDine 0.1 MG (CATAPRES) TAB PO SCH ×3 (09:25→21:18)
[2019-01-06] MEDS: guaiFENesin/CODEINE (ROBITUSSIN AC) 10ML UDC PO PRN (09:26)
[2019-01-06] MEDS: UMECLIDINIUM BROMIDE (INCRUSE ELLIPTA) 7'S IH SCH (09:38)
[2019-01-06] MEDS: OSELTAMIVIR 75 MG (TAMIFLU) CAPSULE PO SCH ×2 (11:17→21:19)
[2019-01-06] MEDS: POLYETHYLENE GLYCOL 17 GM (MIRALAX) PACK PO SCH ×2 (11:17→21:20)
[2019-01-06 11:48] VITALS: BP 129/61
--- NOTE | 2019-01-06 13:51 | Progress Note-Hospitalist ---
Subjective HPI/CC On Admission Date Seen by Provider: Jan 06, 2019 Time Seen by Provider: 13:00 CC: Wheezing HPI: This is a 58-year-old white female clinic patient of mine who I directly admitted after seeing in clinic for an urgent appointment due to severe wheezing and status asthmaticus and failed oral antibiotic and steroid treatment as an outpatient initiated by urgent care. I admitted her completed sepsis workup and patient was found to have influenza B with exacerbation of asthma. Currently she is doing much better responded to IV fluids and IV steroids and nebulizer treatments but she has refused to take Tamiflu since she has heard of side effects. She is doing much better and we'll restart all of her home medicine. Subjective/Events-last exam patient says she's feeling a lot better but continues to have a very raspy cough during my evaluation. Review of Systems Pulmonary: Dyspnea, Cough Neurological: Weakness Focused Exam Lactate Level 01/04/19 18:37: Lactic Acid Level 2.90*H 01/04/19 21:00: Lactic Acid Level 2.61*H 01/05/19 03:15: Lactic Acid Level 1.55 Objective Exam Vital Signs Vital Signs Date Time Temp Pulse Resp B/P (MAP) Pulse Ox O2 Delivery O2 Flow Rate FiO2 01/06/19 11:48 97.8 59 18 129/61 (83) 92 Room Air 01/06/19 09:52 92 Capillary Refill : NONE General Appearance: No Apparent Distress, WD/WN, Chronically ill, Mild Distress , Obese HEENT: PERRL/EOMI, Normal ENT Inspection, Pharynx Normal, Moist Mucous Membranes Neck: Full Range of Motion, Normal Inspection, Non Tender Respiratory: Chest Non Tender, Accessory Muscle Use, Crackles, Decreased Breath Sounds, Respiratory Distress, Wheezing Cardiovascular: Regular Rate, Rhythm, No Edema, No Gallop, No JVD, No Murmur, Normal Peripheral Pulses Gastrointestinal: Normal Bowel Sounds, No Organomegaly, No Pulsatile Mass, Non Tender, Soft Back: Normal Inspection, No CVA Tenderness, No Vertebral Tenderness Extremity: Normal Capillary Refill, Normal Inspection, Normal Range of Motion, Non Tender, No Calf Tenderness, No Pedal Edema Neurologic/Psychiatric: Alert, Oriented x3, No Motor/Sensory Deficits, Normal Mood/Affect Skin: Normal Color, Warm/Dry Lymphatic: No Adenopathy Results/Procedures Lab Patient resulted labs reviewed. Assessment/Plan Assessment and Plan Assess & Plan/Chief Complaint influenza B Exacerbation of asthma Hyperglycemia secondary to steroids Morbid obesity hypertension Hypothyroidism plan to change to prednisone and Hep-Lock IV fluids Probable discharge in the morning Clinical Quality Measures DVT/VTE Risk/Contraindication: Risk Factor Score Per Nursin RFS Level Per Nursing on Admit: 3=High MARY TAPIA MD Jan 06, 2019 13:51
[2019-01-06 16:15] VITALS: BP 130/58
[2019-01-06] MEDS: predniSONE 20 MG TAB PO SCH (18:20)
[2019-01-06 20:00] VITALS: BP 123/56
[2019-01-06] MEDS: FAMOTIDINE 20 MG (PEPCID) TABLET PO SCH (21:18)
[2019-01-06] MEDS: ATORVASTATIN 20 MG (LIPITOR) TABLET PO SCH (21:18)
[2019-01-06] MEDS: inSUlin DETERMIR 1 UNIT/0.01 ML (LEVEMIR) CHARGE PER UNIT SQ SCH (21:19)
[2019-01-07 00:15] VITALS: BP 133/65
[2019-01-07] MEDS: PIPERACILLIN/TAZOBACTAM (BULK) 4.5 GM in NS (IVPB) 100 ML IV SCH ×3 (00:17→16:42)
[2019-01-07] MEDS: guaiFENesin/CODEINE (ROBITUSSIN AC) 10ML UDC PO PRN (00:30)
[2019-01-07] MEDS: MELATONIN 3 MG TABLET PO PRN (00:30)
[2019-01-07] MEDS: RT-ALBUTEROL/IPRATROPIUM 3 ML (DUONEB) VIAL INH SCH ×6 (01:56→23:24)
[2019-01-07] MEDS: inSUlin ASPART (NovoLOG) 1 UNIT/0.01 ML (CHARGE PER UNIT) SC SCH ×4 (06:29→21:24)
[2019-01-07] MEDS: LEVOTHYROXINE 50 MCG (LEVOTHROID) TAB PO SCH (06:39)
[2019-01-07] MEDS: UMECLIDINIUM BROMIDE (INCRUSE ELLIPTA) 7'S IH SCH (06:44)
[2019-01-07 08:24] VITALS: BP 157/72
[2019-01-07] MEDS: FOLIC ACID 1 MG TAB PO SCH (08:50)
[2019-01-07] MEDS: cloNIDine 0.1 MG (CATAPRES) TAB PO SCH ×3 (08:50→21:24)
[2019-01-07] MEDS: MONTELUKAST 10 MG (SINGULAIR) TAB PO SCH (08:50)
[2019-01-07] MEDS: FLUTICASONE NASAL SPRAY (FLONASE) 16 GM BTL NS SCH (08:50)
[2019-01-07] MEDS: VITAMIN D3 1,000 UNITS (CHOLECALCIFEROL) TABLET PO SCH (08:51)
[2019-01-07] MEDS: LORATADINE (CLARITIN) 10 MG TAB PO SCH ×2 (08:51→21:23)
[2019-01-07] MEDS: ENOXAPARIN 40 MG/0.4 ML (LOVENOX) SYR SC SCH ×2 (08:51→21:24)
[2019-01-07] MEDS: LOSARTAN 50 MG (COZAAR) TAB PO SCH (08:51)
[2019-01-07] MEDS: ROFLUMILAST 500 MCG TAB (DALIRESP) PO SCH (08:51)
[2019-01-07] MEDS: TRIAMTERENE/HCTZ 75-50 (MAXZIDE,DYAZIDE) TABLET PO SCH (08:51)
[2019-01-07] MEDS: POLYETHYLENE GLYCOL 17 GM (MIRALAX) PACK PO SCH ×2 (08:52→21:20)
[2019-01-07] MEDS: RT-ADVAIR HFA 115/21 MCG PER PUFF IH SCH ×2 (10:04→19:08)
[2019-01-07] MEDS: RT-BUDESONIDE NEBS 0.5 MG/2ML (PULMICORT) AMP INH SCH ×2 (10:04→19:02)
[2019-01-07] MEDS: OSELTAMIVIR 75 MG (TAMIFLU) CAPSULE PO SCH ×2 (10:20→21:20)
--- NOTE | 2019-01-07 13:11 | Progress Note-Hospitalist ---
Subjective HPI/CC On Admission Date Seen by Provider: Jan 07, 2019 Time Seen by Provider: 11:00 CC: Wheezing HPI: This is a 58-year-old white female clinic patient of mine who I directly admitted after seeing in clinic for an urgent appointment due to severe wheezing and status asthmaticus and failed oral antibiotic and steroid treatment as an outpatient initiated by urgent care. I admitted her completed sepsis workup and patient was found to have influenza B with exacerbation of asthma. Currently she is doing much better responded to IV fluids and IV steroids and nebulizer treatments but she has refused to take Tamiflu since she has heard of side effects. She is doing much better and we'll restart all of her home medicine. Subjective/Events-last exam Patient says she is a little bit better but think she may be wheezing more after we drop the steroids since yesterday. SHe continues to have a very dry cough that makes her very dyspneic Review of Systems Pulmonary: Dyspnea, Cough Neurological: Weakness Focused Exam Lactate Level 01/04/19 18:37: Lactic Acid Level 2.90*H 01/04/19 21:00: Lactic Acid Level 2.61*H 01/05/19 03:15: Lactic Acid Level 1.55 Objective Exam Vital Signs Vital Signs Date Time Temp Pulse Resp B/P (MAP) Pulse Ox O2 Delivery O2 Flow Rate FiO2 01/07/19 10:04 96 Room Air 01/07/19 08:24 98.3 68 18 157/72 (100) 01/06/19 19:12 92 Capillary Refill : NONE General Appearance: No Apparent Distress, WD/WN, Chronically ill, Mild Distress , Obese HEENT: PERRL/EOMI, Normal ENT Inspection, Pharynx Normal, Moist Mucous Membranes Neck: Full Range of Motion, Normal Inspection, Non Tender Respiratory: Chest Non Tender, Accessory Muscle Use, Crackles, Decreased Breath Sounds, Expiration, Inspiration, Respiratory Distress, Wheezing Cardiovascular: Regular Rate, Rhythm, No Edema, No Gallop, No JVD, No Murmur, Normal Peripheral Pulses Gastrointestinal: Normal Bowel Sounds, No Organomegaly, No Pulsatile Mass, Non Tender, Soft Back: Normal Inspection, No CVA Tenderness, No Vertebral Tenderness Extremity: Normal Capillary Refill, Normal Inspection, Normal Range of Motion, Non Tender, No Calf Tenderness, No Pedal Edema Neurologic/Psychiatric: Alert, Oriented x3, No Motor/Sensory Deficits, Normal Mood/Affect Skin: Normal Color, Warm/Dry Lymphatic: No Adenopathy Results/Procedures Lab Patient resulted labs reviewed. Assessment/Plan Assessment and Plan Assess & Plan/Chief Complaint influenza B Exacerbation of asthma-on Zosyn, she has refused Tamiflu Hyperglycemia secondary to steroids Morbid obesity hypertension Hypothyroidism Continue prednisone and aggressive pulmonary toilet. Probable discharge in the morning Clinical Quality Measures DVT/VTE Risk/Contraindication: Risk Factor Score Per Nursin RFS Level Per Nursing on Admit: 3=High MARY TAPIA MD Jan 07, 2019 13:11
[2019-01-07 16:20] VITALS: BP 126/58
[2019-01-07] MEDS: predniSONE 20 MG TAB PO SCH (16:42)
[2019-01-07] MEDS: FAMOTIDINE 20 MG (PEPCID) TABLET PO SCH (21:23)
[2019-01-07] MEDS: inSUlin DETERMIR 1 UNIT/0.01 ML (LEVEMIR) CHARGE PER UNIT SQ SCH (21:24)
[2019-01-07] MEDS: ATORVASTATIN 20 MG (LIPITOR) TABLET PO SCH (21:24)
[2019-01-08 00:02] VITALS: BP 132/61
[2019-01-08] MEDS: PIPERACILLIN/TAZOBACTAM (BULK) 4.5 GM in NS (IVPB) 100 ML IV SCH ×2 (00:32→08:55)
[2019-01-08] MEDS: MELATONIN 3 MG TABLET PO PRN (00:32)
[2019-01-08] MEDS: guaiFENesin/CODEINE (ROBITUSSIN AC) 10ML UDC PO PRN (00:38)
[2019-01-08] MEDS: RT-ALBUTEROL/IPRATROPIUM 3 ML (DUONEB) VIAL INH SCH ×3 (02:43→10:50)
[2019-01-08] MEDS: inSUlin ASPART (NovoLOG) 1 UNIT/0.01 ML (CHARGE PER UNIT) SC SCH (05:58)
[2019-01-08] MEDS: LEVOTHYROXINE 50 MCG (LEVOTHROID) TAB PO SCH (06:05)
[2019-01-08] MEDS: RT-ADVAIR HFA 115/21 MCG PER PUFF IH SCH (07:06)
[2019-01-08] MEDS: RT-BUDESONIDE NEBS 0.5 MG/2ML (PULMICORT) AMP INH SCH (07:06)
--- NOTE | 2019-01-08 07:06 | NUR ---
RT explained that she needed to get a hold of Pharmacy to get the Advair inhaler due to patient being in Isolation! Patient stated not to mess with calling them for it due to her possibly going home today
[2019-01-08] MEDS: UMECLIDINIUM BROMIDE (INCRUSE ELLIPTA) 7'S IH SCH (07:07)
[2019-01-08 08:00] VITALS: BP 148/71
[2019-01-08] MEDS: ROFLUMILAST 500 MCG TAB (DALIRESP) PO SCH (08:56)
[2019-01-08] MEDS: OSELTAMIVIR 75 MG (TAMIFLU) CAPSULE PO SCH (08:56)
[2019-01-08] MEDS: POLYETHYLENE GLYCOL 17 GM (MIRALAX) PACK PO SCH (08:57)
[2019-01-08] MEDS: MONTELUKAST 10 MG (SINGULAIR) TAB PO SCH (08:57)
[2019-01-08] MEDS: TRIAMTERENE/HCTZ 75-50 (MAXZIDE,DYAZIDE) TABLET PO SCH (08:57)
[2019-01-08] MEDS: cloNIDine 0.1 MG (CATAPRES) TAB PO SCH (08:57)
[2019-01-08] MEDS: LOSARTAN 50 MG (COZAAR) TAB PO SCH (08:57)
[2019-01-08] MEDS: VITAMIN D3 1,000 UNITS (CHOLECALCIFEROL) TABLET PO SCH (08:57)
[2019-01-08] MEDS: LORATADINE (CLARITIN) 10 MG TAB PO SCH (08:57)
[2019-01-08] MEDS: ENOXAPARIN 40 MG/0.4 ML (LOVENOX) SYR SC SCH (08:57)
[2019-01-08] MEDS: FOLIC ACID 1 MG TAB PO SCH (08:57)
[2019-01-08] MEDS: FLUTICASONE NASAL SPRAY (FLONASE) 16 GM BTL NS SCH (08:58)
[2019-01-08] MEDS ORDERED: PRD20T PO (09:54)
[2019-01-08] MEDS ORDERED: Guaifenesin/Codeine PO (09:54)
[2019-01-08] MEDS ORDERED: AMOX-358 PO (09:54)
--- NOTE | 2019-01-08 09:56 | Discharge Summary-Hospitalist ---
Diagnosis/Chief Complaint Date of Admission Jan 04, 2019 at 17:58 Date of Discharge Discharge Date: Jan 08, 2019 Admission Diagnosis Assessment: Respiratory insufficiency Presumed pneumonia Acute influenza B Status asthmaticus Rheumatoid arthritis on immunosuppressive's Obesity lost 79 pounds last 8 months Hypertension Diabetes mellitus Allergies Hyperlipidemia Plan: IV steroids Ambulation Antibiotics Discharge Diagnosis (1) Influenza B Status: Acute (2) Acute bronchitis, bacterial Status: Acute (3) Status asthmaticus Status: Resolved (4) Diabetes mellitus Status: Chronic (5) Rheumatoid arthritis Status: Chronic (6) Hypothyroidism Status: Chronic (7) Hypertension Status: Chronic Discharge Summary Discharge Physical Exam Allergies: Coded Allergies: amlodipine (Verified Allergy, Unknown, 02/22/13) erythromycin base (Verified Allergy, Unknown, 02/22/13) Vitals & I&Os Vital Signs Date Time Temp Pulse Resp B/P (MAP) Pulse Ox O2 Delivery O2 Flow Rate FiO2 01/08/19 11:00 63 18 148/71 95 Room Air 01/08/19 08:00 98.5 01/06/19 19:12 92 General Appearance: No Apparent Distress, WD/WN, Chronically ill, Mild Distress , Obese HEENT: PERRL/EOMI, Normal ENT Inspection, Pharynx Normal, Moist Mucous Membranes Respiratory: Chest Non Tender, Lungs Clear, Normal Breath Sounds, No Accessory Muscle Use, No Respiratory Distress Cardiovascular: Regular Rate, Rhythm, No Edema, No Gallop, No JVD, No Murmur, Normal Peripheral Pulses Gastrointestinal: Normal Bowel Sounds, No Organomegaly, No Pulsatile Mass, Non Tender, Soft Extremity: Normal Capillary Refill, Normal Inspection, Normal Range of Motion, Non Tender, No Calf Tenderness, No Pedal Edema Skin: Normal Color, Warm/Dry Neurologic/Psychiatric: Alert, Oriented x3, No Motor/Sensory Deficits, Normal Mood/Affect Hospital Course Was the Problem List Reviewed?: Yes Hospital Course: Pt had an uneventful hospital course. She was admitted for status asthmatics failed oral antibiotics and oral steroids and was placed on empiric antibiotic of Zosyn and IV steroids. Influenza B was diagnosed by swab and pt continued aggressive care and overall improved enough, was eating and drinking, bowels moving, cough was improved and was able to be discharged in an uneventful manner with close follow-up with me on Tuesday. Labs (last 24 hrs) Laboratory Tests 01/08/19 05:58: Glucometer 157H Microbiology 01/04/19 Blood Culture - Preliminary, Resulted No growth 01/04/19 Influenza Types A,B Antigen (MARIA DE JESUS) - Final, Complete Patient resulted labs reviewed. Pending Labs Discussion & Recommendations Discharge Planning: <30 minutes discharge planning Discharge Home Medications: Active Scripts Active Augmentin 875-125 Tablet (Amoxicillin/Potassium Clav) 1 Each Tablet 1 Each PO BID Prednisone 20 Mg Tab 20 Mg PO DAILY [Guaifenesin/Codeine] 10 ML Syrp 10 Ml PO Q4H PRN Reported Famotidine 40 Mg Tablet 40 Mg PO HS Iprat-Albut 0.5-3(2.5) mg/3 ml (Ipratropium/Albuterol Sulfate) 3 Ml Ampul.neb 3 Ml IH QID PRN Fluticasone Propionate 16 Gm [place].susp 2 Sprays NS DAILY Proair Hfa (Albuterol Sulfate) 1 Puff Puff 2 Puff INH Q4H PRN Zyrtec (Cetirizine HCl) 10 Mg Tablet 10 Mg PO BID Atorvastatin Calcium 20 Mg Tablet 20 Mg PO DAILY Losartan Potassium 50 Mg Tablet 50 Mg PO DAILY Triamterene-Hctz 37.5-25 mg Cp (Triamterene/Hydrochlorothiazid) 1 Each Capsule 1 Cap PO DAILY Folic Acid 1 Mg Tablet 1 Mg PO DAILY Spiriva Respimat 1.25MCG/ACTUATION (Tiotropium [place]) 4 Gm Mist.inhal 2 Puff INH DAILY Breo Ellipta 200-25 Mcg INH (Fluticasone/Vilanterol) 1 Each Blst.w.dev 1 Puff INH HS Citalopram HBr (Citalopram Hydrobromide) 10 Mg Tablet 10 Mg PO DAILY Montelukast Sodium 10 Mg Tablet 10 Mg PO DAILY Vitamin D-3 (Cholecalciferol (Vitamin D3)) 2,000 Unit Capsule 2,000 Unit PO DAILY Ibuprofen 200 Mg Tablet 800 Mg PO TID PRN Osteo Bi-Flex [place] (Glucosamine HCl/Chondr Ashby A Na) 1 Each Tablet 1 Tab PO BID Clonidine HCl 0.1 Mg Tablet 0.1 Mg PO TID Levothyroxine Sodium 50 Mcg Tablet 50 Mcg PO DAILY Instructions to patient/family Please see electronic discharge instructions given to patient. 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: without skilled nursing use Diabetes mellitus complication status: without complication Qualified Codes: E11.9 - Type 2 diabetes mellitus without complications (3) Rheumatoid arthritis: Rheumatoid arthritis location: unspecified site Rheumatoid factor presence: with rheumatoid factor Qualified Codes: M05.9 - Rheumatoid arthritis with rheumatoid factor, unspecified (4) Hypothyroidism: Hypothyroidism type: acquired Qualified Codes: E03.9 - Hypothyroidism, unspecified (5) Hypertension: Hypertension type: essential hypertension Qualified Codes: I10 - Essential ( primary) hypertension FABIENNE ZAMORA DO Jan 08, 2019 09:56
[2019-01-08 11:00] VITALS: BP 148/71
== END 2019-01-08 11:00 | disposition home or self-care (01) | DRG 202 ==
LOC: ICU 17:58 → 4TH 01-05 10:10
PROVIDERS: ADMIT Internal Medicine; ATTEND Internal Medicine
DX: J45.42 Moderate persistent asthma with status asthmaticus (principal); J10.1 Influenza due to other identified influenza virus with other respiratory manifestations; J20.9 Acute bronchitis, unspecified; J44.0 Chronic obstructive pulmonary disease with (acute) lower respiratory infection; Z68.42 Body mass index [BMI] 45.0-49.9, adult; E66.9 Obesity, unspecified; I10 Essential (primary) hypertension; E78.00 Pure hypercholesterolemia, unspecified; E78.2 Mixed hyperlipidemia; E11.40 Type 2 diabetes mellitus with diabetic neuropathy, unspecified; E03.9 Hypothyroidism, unspecified; G47.30 Sleep apnea, unspecified; E11.65 Type 2 diabetes mellitus with hyperglycemia; M05.9 Rheumatoid arthritis with rheumatoid factor, unspecified; T38.0X5A Adverse effect of glucocorticoids and synthetic analogues, initial encounter; Z79.899 Other long term (current) drug therapy
CPT/HCPCS: 36415; 71046; 80053; 81000; 82962; 83605; 85025; 87040; 87804; 94640; 94760

== ENCOUNTER → 2019-05-11 | Outpatient (CLI) | payer BC ==
[~2019-05-11] MED LIST changes: +AMOX-358 PO; +FAMO40TA6 PO; +Guaifenesin/Codeine PO; +LEVO500T80 PO
--- NOTE | 2019-05-11 10:50 | Diagnostic Imaging Report ---
PROCEDURE: US left lower extremity venous. TECHNIQUE: Multiple real-time grayscale images were obtained over the left lower extremity in various projections. Additional duplex Doppler and color Doppler images were also obtained. INDICATION: Pain. The femoropopliteal deep venous system is widely patent. No deep vein thrombus is found. There is thrombosed tender superficial varicosities in the anterior calf in the region of clinical complaint. Impression: 1. There is some subsegmental superficial thrombophlebitis within the superficial calf vein. 2. However, the deep venous system was widely patent. Dictated by: Dictated on workstation # [id number]
== END ==
LOC: RAD 09:26
PROVIDERS: ATTEND Internal Medicine
DX: I80.02 Phlebitis and thrombophlebitis of superficial vessels of left lower extremity (principal)

== ENCOUNTER → 2019-05-15 | Outpatient (CLI) | payer BC ==
--- NOTE | 2019-05-15 10:26 | Diagnostic Imaging Report ---
INDICATION: Screening. TECHNIQUE: The current study was also evaluated with a Computer Aided Detection (CAD) system. 3D Tomographic imaging was also performed. COMPARISON: No prior examinations are available for comparison. FINDINGS: There are scattered fibroglandular densities bilaterally. There are a few benign type calcifications in both breasts. There is no dominant mass, spiculated lesion, or suspicious calcification identified. The skin, nipples, and axillae are unremarkable. IMPRESSION: Benign findings. ACR BI-RADS Category 2: Benign findings. Result letter will be mailed to the patient. Note: At least 10% of breast cancer is not imaged by mammography. Dictated by: Dictated on workstation # [id number]
== END ==
LOC: RAD 08:27
PROVIDERS: ATTEND Internal Medicine
DX: Z12.31 Encounter for screening mammogram for malignant neoplasm of breast (principal)
CPT/HCPCS: 77067

== ENCOUNTER 2019-08-08 14:53 | Emergency (ER) | payer BC ==
[~2019-08-08] VITALS: Ht 167.7 cm; Wt 145.9 kg
--- NOTE | 2019-08-08 16:01 | ED Lower Extremity ---
General Chief Complaint: Lower Extremity Stated Complaint: KNEE PAIN Nursing Triage Note: Pt c/o R knee pain upon standing and ambulating. She denies injury. She states she has osteoarthritis and chronic knee pain. Nursing Sepsis Screen: No Definite Risk History of Present Illness Date Seen by Provider: Aug 08, 2019 Time Seen by Provider: 15:30 Initial Comments 59-year-old female presents for right knee pain. Patient had a DVT in her left lower extremity earlier this summer, is on Eliquis. She is no longer on blood thinners or aspirin. Onset: yesterday Pain/Injury Location: left knee Method of Injury: unknown Allergies and Home Medications Allergies Coded Allergies: amlodipine (Verified Allergy, Unknown, 02/22/13) erythromycin base (Verified Allergy, Unknown, 02/22/13) Home Medications Albuterol Sulfate 1 Puff Puff, 2 PUFF INH Q4H PRN for SHORTNESS OF BREATH, (Reported) Amoxicillin/Potassium Clav 1 Each Tablet, 1 EACH PO BID Prescribed by: FABIENNE ZAMORA on 01/08/19 0954 Atorvastatin Calcium 20 Mg Tablet, 20 MG PO DAILY, (Reported) Cetirizine HCl 10 Mg Tablet, 10 MG PO BID, (Reported) Cholecalciferol (Vitamin D3) 2,000 Unit Capsule, 2,000 UNIT PO DAILY, (Reported) Citalopram Hydrobromide 10 Mg Tablet, 10 MG PO DAILY, (Reported) Clonidine HCl 0.1 Mg Tablet, 0.1 MG PO TID, (Reported) Famotidine 40 Mg Tablet, 40 MG PO HS, (Reported) Fluticasone Propionate 16 Gm [place].susp, 2 SPRAYS NS DAILY, (Reported) Fluticasone/Vilanterol 1 Each Blst.w.dev, 1 PUFF INH HS, (Reported) Folic Acid 1 Mg Tablet, 1 MG PO DAILY, (Reported) Glucosamine HCl/Chondr Ashby A Na 1 Each Tablet, 1 TAB PO BID, (Reported) Ibuprofen 200 Mg Tablet, 800 MG PO TID PRN for PAIN-MILD, (Reported) Ipratropium/Albuterol Sulfate 3 Ml Ampul.neb, 3 ML IH QID PRN for SHORTNESS OF BREATH, (Reported) Levothyroxine Sodium 50 Mcg Tablet, 50 MCG PO DAILY, (Reported) Losartan Potassium 50 Mg Tablet, 50 MG PO DAILY, (Reported) Montelukast Sodium 10 Mg Tablet, 10 MG PO DAILY, (Reported) Prednisone 20 Mg Tab, 20 MG PO DAILY Prescribed by: FABIENNE ZAMORA on 01/08/19953 Tiotropium [place] 4 Gm Mist.inhal, 2 PUFF INH DAILY, (Reported) Triamterene/Hydrochlorothiazid 1 Each Capsule, 1 CAP PO DAILY, (Reported) [Guaifenesin/Codeine] 10 ML SYRP, 10 ML PO Q4H PRN for COUGH Prescribed by: FABIENNE ZAMORA on 01/08/19953 Patient Home Medication List Home Medication List Reviewed: Yes Review of Systems Constitutional: no symptoms reported, see HPI Musculoskeletal: see HPI, joint pain (right knee) All Other Systems Reviewed Negative Unless Noted: Yes Past Vfdhikj-Fsybui-Gsrwve Hx Past Med/Social Hx: Reviewed Nursing Past Med/Soc Hx Patient Social History Alcohol Use: Denies Use Recreational Drug Use: No Smoking Status: Never a Smoker 2nd Hand Smoke Exposure: No Recent Foreign Travel: No Contact w/Someone Who Travel: No Recent Infectious Disease Expo: No Recent Hopitalizations: No Immunizations Up To Date Tetanus Booster (TDap): Less than 5yrs PED Vaccines UTD: No Date of Pneumonia Vaccine: Jan 04, 2015 Date of Influenza Vaccine: Aug 14, 2018 Seasonal Allergies Seasonal Allergies: No Past Medical History Surgeries: Yes (foot) Orthopedic Respiratory: Yes Asthma, Sleep Apnea Currently Using CPAP: Yes Currently Using BIPAP: No Cardiac: No High Cholesterol, Hypertension Neurological: No Neuropathy 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 Disorders: No Sexually Transmitted Disease: No Genitourinary: No Bladder Infection Gastrointestinal: No Musculoskeletal: Yes Rheumatoid Arthritis Endocrine: No Hypothyroidsim HEENT: No Loss of Vision: Denies Hearing Impairment: Denies Cancer: No Psychosocial: No Integumentary: No Blood Disorders: No Adverse Reaction/Blood Tranf: No Family Medical History Alcoholism G8 BROTHER G8 SISTER Alzheimer's disease 19 MOTHER Arthritis 19 FATHER Asthma G8 SISTER Cardiovascular disease 19 FATHER Cataracts 19 FATHER Coronary thrombosis 19 FATHER Deafness or hearing loss SON Diabetes mellitus 19 FATHER G8 SISTER G8 SISTER Drug abuse G8 SISTER Hypertension 19 FATHER G8 SISTER G8 SISTER Kidney disease 19 FATHER Respiratory disorder G8 SISTER G8 SISTER Seizure disorder SON Severe allergy SON Heart Disease, Diabetes, Hypertension Physical Exam Vital Signs Vital Signs - First Documented 08/08/19 15:08 Temp 36.8 Pulse 84 Resp 20 B/P (MAP) 151/81 (104) Pulse Ox 94 Capillary Refill : Less Than 3 Seconds Height, Weight, BMI Height: 5'6.00" Weight: 297lbs. 0.0oz. 134.204125zz; 51.00 BMI Method:Stated General Appearance: WD/WN, no apparent distress HEENT: PERRL/EOMI, normal ENT inspection, pharynx normal Neck: non-tender, full range of motion, supple Cardiovascular: normal peripheral pulses, regular rate, rhythm Respiratory: chest non-tender, lungs clear, normal breath sounds Knees: right knee no evidence of injury, right knee joint effusion, right knee pain, right knee soft tissue tenderness, right knee swelling (trace), right knee other (no medial or lateral instability, negative Jojo and anterior drawer.) Neurologic/Tendon: normal sensation, normal motor functions, normal tendon functions Neurologic/Psychiatric: no motor/sensory deficits, alert, normal mood/affect, oriented x 3 Skin: normal color, warm/dry Pedal pulses 2+ and symmetric, negative Homans Progress/Results/Core Measures Results/Orders My Orders Orders - SAMMIE BROTHERS Knee, Right, 3 Views (08/08/19 15:40) Vital Signs/I&O 08/08/19 15:08 Temp 36.8 Pulse 84 Resp 20 B/P (MAP) 151/81 (104) Pulse Ox 94 Blood Pressure Mean: 104 Departure Impression Primary Impression: Arthritis of right knee Disposition: 01 HOME, SELF-CARE Condition: Improved Departure-Patient Inst. Decision time for Depature: 16:15 Referrals: FABIENNE ZAMORA DO (PCP/Family) Primary Care Physician Patient Instructions: Knee Pain (DC) Add. Discharge Instructions: Alternate heat and ice to right knee. Use crutches or walker as needed. 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 Continue to take your Humira daily. You may take ibuprofen 800 mg every 8 hours. Return to the department for new, urgent health care needs. All discharge instructions reviewed with patient and/or family. Voiced understanding. SAMMIE BROTHERS Aug 08, 2019 16:01
--- NOTE | 2019-08-08 16:39 | Diagnostic Imaging Report ---
INDICATION: Pain. FINDINGS: There is no acute fracture or acute bony abnormality. There is prominent medial space narrowing with osteophyte formation and moderate lateral joint space narrowing. There is patellofemoral spurring. There is no definite joint effusion. IMPRESSION: Osteoarthritic changes of the right knee, most prominent in the medial compartment. No acute appearing bony abnormality. Dictated by: Dictated on workstation # [id number]
[2019-08-08 16:41] VITALS: BP 151/81
== END 2019-08-08 16:41 | disposition home or self-care (01) ==
LOC: EDUNIT# 14:53 → ER 14:54
DX: M17.11 Unilateral primary osteoarthritis, right knee (principal); I10 Essential (primary) hypertension; J45.909 Unspecified asthma, uncomplicated; E78.00 Pure hypercholesterolemia, unspecified; G47.30 Sleep apnea, unspecified; G62.9 Polyneuropathy, unspecified; M06.9 Rheumatoid arthritis, unspecified; E03.9 Hypothyroidism, unspecified; Z99.89 Dependence on other enabling machines and devices; Z86.718 Personal history of other venous thrombosis and embolism; Z79.01 Long term (current) use of anticoagulants; Z88.1 Allergy status to other antibiotic agents; Z88.8 Allergy status to other drugs, medicaments and biological substances; Z79.51 Long term (current) use of inhaled steroids; Z79.52 Long term (current) use of systemic steroids; Z82.49 Family history of ischemic heart disease and other diseases of the circulatory system
CPT/HCPCS: 73562

== ENCOUNTER → 2019-10-15 | Outpatient (CLI) | payer BC ==
--- NOTE | 2019-10-15 12:48 | Diagnostic Imaging Report ---
PROCEDURE: CT head without contrast. TECHNIQUE: Multiple contiguous axial images were obtained through the brain without the use of intravenous contrast. Auto Exposure Controls were utilized during the CT exam to meet ALARA standards for radiation dose reduction. INDICATION: Facial weakness. No prior studies are available for comparison. The ventricles and sulci are within normal limits. No sulcal effacement or midline shift is identified. No acute intra-axial or extra-axial hemorrhage is detected. Cisterns are patent. Visualized paranasal sinuses are clear. IMPRESSION: No acute intracranial process is detected. Dictated by: Dictated on workstation # [id number]
== END ==
LOC: RAD 11:36
PROVIDERS: ATTEND Internal Medicine
DX: R29.810 Facial weakness (principal)
CPT/HCPCS: 70450

== ENCOUNTER → 2019-11-01 | Outpatient (CLI) | payer BC ==
[2019-11-01 16:10] LABS: BASOPHILS % (AUTO) 1 % (0-10); EOSINOPHILS # (AUTO) 0.1 10^3/uL (0.0-0.3); EOSINOPHILS % (AUTO) 2 % (0-10); HEMATOCRIT 40 % (35-52); LYMPHOCYTES # (AUTO) 2.1 X 10^3 (1.0-4.0); LYMPHOCYTES % (AUTO) 36 % (12-44); MEAN CORPUSCULAR HEMOGLOBIN 30 PG (25-34); MEAN CORPUSCULAR HGB CONC 32 G/DL (32-36); MEAN CORPUSCULAR VOLUME 93 FL (80-99); MEAN PLATELET VOLUME 9.5 FL (7.4-10.4); MONOCYTES # (AUTO) 0.5 X 10^3 (0.0-1.0); MONOCYTES % (AUTO) 8 % (0-12); NEUTROPHILS # (AUTO) 3.2 X 10^3 (1.8-7.8); NEUTROPHILS % (AUTO) 54 % (42-75); PLATELET COUNT 312 10^3/uL (130-400); RED CELL DISTRIBUTION WIDTH 13.5 % (10.0-14.5); WHITE BLOOD COUNT 5.9 10^3/uL (4.3-11.0)
--- NOTE | 2019-11-01 16:24 | Diagnostic Imaging Report ---
INDICATION: Cough and dyspnea. COMPARISON: Comparison is made with prior examination 01/04/2019. FINDINGS: The heart size, mediastinal configuration, and pulmonary vascularity are within normal limits. There is no pleural effusion, pneumothorax, or pneumonia. The osseous structures are unremarkable. IMPRESSION: No acute cardiopulmonary abnormality. Dictated by: Dictated on workstation # [id number]
== END ==
LOC: RAD 15:52
PROVIDERS: ATTEND Nurse Practitioner Family
DX: J45.909 Unspecified asthma, uncomplicated (principal)
CPT/HCPCS: 36415; 71046; 85025

== ENCOUNTER → 2020-06-02 | Outpatient (CLI) | payer BC, OTHER ==
[~2020-06-02] MED LIST changes: +ACET-2715 PO; +ADAL40PE5 PO; +AZIT500T2 PO; -CETI10TA20 PO; +CETI10TA21 PO; +CHOL10007 PO; +FISH1CAP15 PO; +GUAI-585 PO; +GUAI600T43 PO; -IBUP-2055 PO; +IBUP-2473 PO; -MONT10TA24 PO; +MONT10TA26 PO; +PRED10TA22 PO; +RT-ALBUTEROL SULF 2.5 MG/3 ML PRE-MIX VIAL INH ONE
== END ==
LOC: RT 07:42
PROVIDERS: ATTEND Nurse Practitioner Family
DX: J45.909 Unspecified asthma, uncomplicated (principal); J98.4 Other disorders of lung; J30.9 Allergic rhinitis, unspecified; G47.33 Obstructive sleep apnea (adult) (pediatric)
CPT/HCPCS: 94060; 94726; 94729

== ENCOUNTER 2020-07-29 16:34 | Emergency (ER) | payer BC ==
[~2020-07-29] VITALS: Ht 167.7 cm; Wt 152.3 kg
[~2020-07-29 16:34] MED LIST changes: -RT-ALBUTEROL SULF 2.5 MG/3 ML PRE-MIX VIAL INH ONE
--- NOTE | 2020-07-29 16:41 | NUR ---
NOTIFIED ALFREDO TILLMAN OF PT SYMPTOMS
[2020-07-29] MEDS ORDERED: LACTATED RINGERS 1,000 ML IV ONE (18:39)
--- NOTE | 2020-07-29 18:54 | ED General ---
General Chief Complaint: Allergic Reaction Stated Complaint: TONGUE SWELLING;DIFFICULTY SWALLOWING Nursing Triage Note: Pt ambulates to triage with c/o allergic reaction. Pt reports she was advised by [facility] to be seen in this ER for further evaluation et care. Pt reports she was seen in this ER approx x10 days ago d/t similar s/s. Pt reports approx x2 wks ago she began to experience facial swelling, tongue swelling, double vision, et difficulty swalling. Pt reports she believes this reaction is r/t her humira injections. Pt reports after her last injection of Humira on 07/26/20 s/s increased in severity. Initial SPO2 94% via RA with pt denying SOA. Nursing Sepsis Screen: No Definite Risk Source of Information: Patient Exam Limitations: No Limitations History of Present Illness Date Seen by Provider: Jul 29, 2020 Time Seen by Provider: 18:27 Initial Comments This 60-year-old woman presents to the emergency room with multiple complaints including diplopia and difficulty swallowing. The diplopia has been present for a couple of weeks and the dysphasia has been present for about 2 months. She is having enough difficulty swallowing that she is now concerned about her hydration status. She has rheumatoid arthritis for which she takes Humira. She noticed a significant decline since taking her last dose of Humira on July 26. She was seen in this ER on July 18 with the same symptoms. CT of the head and CT angiogram head and neck were both unremarkable. She has not been able to follow-up with her primary care provider since then. Her PCP is Dr. Zamora and her car supplier is Dr. Gallegos (?spelling?) In [place], [place]. She has an appointment with her car supplier coming up on . She reports tongue is swollen but this is not appreciated by this examiner on her physical exam. Patient was seen in urgent care [facility] due to the concern about hydration and worsening problems with swallowing. They referred her to the ER. Allergies and Home Medications Allergies Coded Allergies: adhesive tape (Verified Allergy, Intermediate, 02/21/20) BLISTERS AND RAW SKIN amlodipine (Verified Allergy, Unknown, 02/22/13) erythromycin base (Verified Allergy, Unknown, 02/22/13) Uncoded Allergies: ALMONDS (Adverse Reaction, Mild, 02/22/20) SHE HAS PAIN ALL OVER WHEN SHE EATS THEM Home Medications Acetaminophen/Diphenhydramine 1 Each Tablet, 2 EACH PO HS PRN for SLEEP, (Reported) Albuterol Sulfate 1 Puff Puff, 2 PUFF INH Q4H PRN for SHORTNESS OF BREATH, (Reported) Atorvastatin Calcium 20 Mg Tablet, 20 MG PO DAILY, (Reported) Azithromycin 500 Mg Tablet, 500 MG PO DAILY Prescribed by: MARY TAPIA on 02/23/201122 Cetirizine HCl 10 Mg Tablet, 10 MG PO BID, (Reported) Cholecalciferol (Vitamin D3) 25 Mcg Capsule, 25 MCG PO DAILY, (Reported) Clonidine HCl 0.1 Mg Tablet, 0.1 MG PO BID, (Reported) Fish Oil/Dha/Epa 1 Each Capsule, 1 EACH PO DAILY, (Reported) Fluticasone Propionate 16 Gm Puposky.susp, 1 SPRAYS NS DAILY, (Reported) Fluticasone/Vilanterol 1 Each Blst.w.dev, 1 PUFF INH DAILY, (Reported) Guaifenesin 600 Mg Tab.er.12h, 600 MG PO Q12H PRN for CONGESTION, (Reported) Ipratropium/Albuterol Sulfate 3 Ml Ampul.neb, 3 ML IH QID PRN for SHORTNESS OF BREATH, (Reported) LAST FILLED 10-04-2018 Levothyroxine Sodium 50 Mcg Tablet, 50 MCG PO DAILY, (Reported) Montelukast Sodium 10 Mg Tablet, 10 MG PO DAILY, (Reported) Prednisone 10 Mg Tab.ds.pk, 10 MG PO DAILY Take 6 tabs(60mg)daily,decrease by 1 tab(10mg)every other day. Prescribed by: MARY TAPIA on 02/23/201122 Tiotropium [place] 4 Gm Mist.inhal, 2 PUFF INH DAILY, (Reported) LAST FILLED 11-15-2019 #12/13 DAY SUPPLY Triamterene/Hydrochlorothiazid 1 Each Capsule, 1 CAP PO DAILY, (Reported) Patient Home Medication List Home Medication List Reviewed: Yes Review of Systems Review of Systems Constitutional: no symptoms reported EENTM: see HPI Respiratory: no symptoms reported Cardiovascular: no symptoms reported Gastrointestinal: see HPI Genitourinary: other (decreased urine output) : No Musculoskeletal: no symptoms reported Skin: no symptoms reported Psychiatric/Neurological: See HPI Hematologic/Lymphatic: No Symptoms Reported Immunological/Allergic: no symptoms reported Past Lpofjnj-Yhfnpn-Nawsxa Hx Past Med/Social Hx: Reviewed Nursing Past Med/Soc Hx Patient Social History 2nd Hand Smoke Exposure: No Recent Foreign Travel: No Contact w/Someone Who Travel: No Recent Infectious Disease Expo: No Recent Hopitalizations: No Immunizations Up To Date Tetanus Booster (TDap): Less than 5yrs PED Vaccines UTD: No Date of Pneumonia Vaccine: Jan 04, 2015 Date of Influenza Vaccine: Aug 14, 2018 Seasonal Allergies Seasonal Allergies: Yes Past Medical History Surgeries: Yes (FOOT SURGERY) Orthopedic Respiratory: Yes (CHRONIC COUGH) Asthma, Sleep Apnea Currently Using CPAP: Yes Currently Using BIPAP: No Cardiac: Yes Deep Vein Thrombosis, High Cholesterol, Hypertension Neurological: Yes Neuropathy 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 Disorders: No 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 Sexually Transmitted Disease: No Genitourinary: Yes Bladder Infection Gastrointestinal: No Musculoskeletal: Yes (ON HUMIRA) Arthritis, Rheumatoid Arthritis Endocrine: Yes (OBESITY) Hypothyroidsim, Diabetes, Non-Insulin dep HEENT: No Loss of Vision: Denies Hearing Impairment: Denies Cancer: No Psychosocial: No Integumentary: No Blood Disorders: No Adverse Reaction/Blood Tranf: No Family Medical History Reviewed Nursing Family Hx Alcoholism G8 BROTHER G8 SISTER Alzheimer's disease 19 MOTHER Arthritis 19 FATHER Asthma G8 SISTER Cardiovascular disease 19 FATHER Cataracts 19 FATHER Coronary thrombosis 19 FATHER Deafness or hearing loss SON Diabetes mellitus 19 FATHER G8 SISTER G8 SISTER Drug abuse G8 SISTER Hypertension 19 FATHER G8 SISTER G8 SISTER Kidney disease 19 FATHER Respiratory disorder G8 SISTER G8 SISTER Seizure disorder SON Severe allergy SON Heart Disease, Diabetes, Hypertension Physical Exam Vital Signs Vital Signs - First Documented 07/29/20 16:42 Temp 37.3 Pulse 90 Resp 20 B/P (MAP) 151/92 (111) Pulse Ox 94 O2 Delivery Room Air Capillary Refill : Less Than 3 Seconds Height, Weight, BMI Height: 5'6.00" Weight: 297lbs. 0.0oz. 134.908126my; 54.00 BMI Method:Stated General Appearance: No Apparent Distress, WD/WN, Obese HEENT: PERRL/EOMI, TMs Normal, Normal ENT Inspection, Pharynx Normal, Other (mucous membranes somewhat dry) Neck: Normal Inspection Respiratory: Lungs Clear, Normal Breath Sounds, No Accessory Muscle Use, No Respiratory Distress Cardiovascular: Regular Rate, Rhythm, No Edema, No Murmur Gastrointestinal: Normal Bowel Sounds, Non Tender, Soft Extremity: Normal Inspection, No Pedal Edema Neurologic/Psychiatric: Alert, Oriented x3, No Motor/Sensory Deficits, Normal Mood/Affect, Other (Diplopia with normal extraoccular movements. Right facial droop resolves with effort. Abnormal finger to nose due to diplopia and abnormal depth perception. Normal heal to medel. Antalgic gait) Skin: Normal Color, Warm/Dry Progress/Results/Core Measures Suspected Sepsis Recent Fever Within 48 Hours: No Infection Criteria Present: None New/Unexplained Altered Menta: No Sepsis Screen: No Definite Risk SIRS Temperature: Pulse: 90 Respiratory Rate: 20 Laboratory Tests 07/29/20 18:57: White Blood Count 6.0 Blood Pressure 151 /92 Mean: 111 Laboratory Tests 07/29/20 18:57: Creatinine 0.94, Platelet Count 281, Total Bilirubin 0.6 Results/Orders Lab Results Laboratory Tests Test 07/29/20 18:57 07/29/20 20:05 Range/Units White Blood Count 6.0 4.3-11.0 10^3/uL Red Blood Count 4.82 4.35-5.85 10^6/uL Hemoglobin 14.2 11.5-16.0 G/DL Hematocrit 43 35-52 % Mean Corpuscular Volume 90 80-99 FL Mean Corpuscular Hemoglobin 30 25-34 PG Mean Corpuscular Hemoglobin Concent 33 32-36 G/DL Red Cell Distribution Width 13.9 10.0-14.5 % Platelet Count 281 130-400 10^3/uL Mean Platelet Volume 9.8 7.4-10.4 FL Neutrophils (%) (Auto) 55 42-75 % Lymphocytes (%) (Auto) 35 12-44 % Monocytes (%) (Auto) 8 0-12 % Eosinophils (%) (Auto) 2 0-10 % Basophils (%) (Auto) 1 0-10 % Neutrophils # (Auto) 3.3 1.8-7.8 X 10^3 Lymphocytes # (Auto) 2.1 1.0-4.0 X 10^3 Monocytes # (Auto) 0.5 0.0-1.0 X 10^3 Eosinophils # (Auto) 0.1 0.0-0.3 10^3/uL Basophils # (Auto) 0.0 0.0-0.1 10^3/uL Erythrocyte Sedimentation Rate 25 0-30 MM/HR Sodium Level 141 135-145 MMOL/L Potassium Level 3.5 L 3.6-5.0 MMOL/L Chloride Level 102 98-107 MMOL/L Carbon Dioxide Level 28 21-32 MMOL/L Anion Gap 11 5-14 MMOL/L Blood Urea Nitrogen 14 7-18 MG/DL Creatinine 0.94 0.60-1.30 MG/DL Estimat Glomerular Filtration Rate 60 BUN/Creatinine Ratio 15 Glucose Level 101 70-105 MG/DL Calcium Level 9.7 8.5-10.1 MG/DL Corrected Calcium 9.6 8.5-10.1 MG/DL Magnesium Level 2.0 1.6-2.4 MG/DL Total Bilirubin 0.6 0.1-1.0 MG/DL Aspartate Amino Transf (AST/SGOT) 23 5-34 U/L Alanine Aminotransferase (ALT/SGPT) 31 0-55 U/L Alkaline Phosphatase 110 40-136 U/L Total Creatine Kinase 116 29-168 U/L C-Reactive Protein High Sensitivity 0.51 H 0.00-0.50 MG/DL Total Protein 7.9 6.4-8.2 GM/DL Albumin 4.1 3.2-4.5 GM/DL Free Thyroxine 1.09 0.70-1.48 NG/DL TSH [place] Testing 1.46 0.35-4.94 UIU/ML Urine Color YELLOW Urine Clarity CLEAR Urine pH 6.5 5-9 Urine Specific [place] 1.015 L 1.016-1.022 Urine Protein NEGATIVE NEGATIVE Urine Glucose (UA) NEGATIVE NEGATIVE Urine Ketones NEGATIVE NEGATIVE Urine Nitrite NEGATIVE NEGATIVE Urine Bilirubin NEGATIVE NEGATIVE Urine Urobilinogen 0.2 < = 1.0 MG/DL Urine Leukocyte Esterase NEGATIVE NEGATIVE Urine RBC (Auto) NEGATIVE NEGATIVE Urine RBC NONE /HPF Urine WBC 0-2 /HPF Urine Squamous Epithelial Cells 5-10 /HPF Urine Crystals NONE /LPF Urine Bacteria TRACE /HPF Urine Casts NONE /LPF Urine Mucus SMALL H /LPF Urine Culture Indicated NO My Orders Orders - REGINA HORTON MD Cbc With Automated Diff (07/29/20 18:39) Comprehensive Metabolic Panel (07/29/20 18:39) Hs C Reactive Protein (07/29/20 18:39) Magnesium (07/29/20 18:39) Thyroid Analyzer (07/29/20 18:39) Ua Culture If Indicated (07/29/20 18:39) Erythrocyte Sedimentation Rate (07/29/20 18:39) Ed Iv/Invasive Line Start (07/29/20 18:39) Lactated Ringers (Lr 1000 Ml Iv Solution (07/29/20 18:39) Creatine Kinase (07/29/20 19:13) Free T4 (Free Thyroxine) (07/29/20 19:13) Medications Given in ED Current Medications Medications Dose Ordered Sig/Mayela Route Start Time Stop Time Status Last Admin Dose Admin Lactated Ringer's 1,000 ml @ 0 mls/hr Q0M ONCE IV 07/29/20 18:39 07/29/20 18:43 DC 07/29/20 18:58 0 MLS/HR Vital Signs/I&O 07/29/20 07/29/20 16:42 20:53 Temp 37.3 37.0 Pulse 90 81 Resp 20 17 B/P (MAP) 151/92 (111) 144/86 (111) Pulse Ox 94 96 O2 Delivery Room Air Room Air Capillary Refill : Less Than 3 Seconds Blood Pressure Mean: 111 Progress Note : Progress Note Labs were reviewed and were unremarkable. Patient received a liter of LR which made her feel better. I discussed the case with Dr. Zamora who is already pursuing a myasthenia gravis workup with the patient. She has appointments with Dr. Zamora and rheumatology in 2 days and was encouraged to keep those appointments. Patient was strongly encouraged to work with Dr. Zamora to complete her neurologic evaluation on an outpatient basis. Departure Impression Primary Impression: Diplopia Additional Impressions: Dysphagia Qualified Codes: R13.10 - Dysphagia, unspecified Dysarthria Disposition: HOME, SELF-CARE Condition: Improved Departure-Patient Inst. Decision time for Depature: 20:46 Referrals: FABIENNE ZAMORA DO (PCP/Family) Primary Care Physician Patient Instructions: Dysphagia Add. Discharge Instructions: Stick with thin and soft food and fluids. Tim your food it with sips of water after each bite. Always eat and drink in an upright position. Avoid fatiguing muscles of speech, swallowing, and chewing. Keep your follow-up appointments with Dr. Zamora and your car supplier on . Return to the emergency room or call if you have any further problems or concerns. All discharge instructions reviewed with patient and/or family. Voiced unders tanding. Copy Copies To 1: FABIENNE ZAMORA JOSHUA T MD Jul 29, 2020 18:54
[2020-07-29 19:02] LABS: BASOPHILS % (AUTO) 1 % (0-10); EOSINOPHILS # (AUTO) 0.1 10^3/uL (0.0-0.3); EOSINOPHILS % (AUTO) 2 % (0-10); HEMATOCRIT 43 % (35-52); HEMOGLOBIN 14.2 G/DL (11.5-16.0); LYMPHOCYTES # (AUTO) 2.1 X 10^3 (1.0-4.0); LYMPHOCYTES % (AUTO) 35 % (12-44); MEAN CORPUSCULAR HEMOGLOBIN 30 PG (25-34); MEAN CORPUSCULAR HGB CONC 33 G/DL (32-36); MEAN CORPUSCULAR VOLUME 90 FL (80-99); MEAN PLATELET VOLUME 9.8 FL (7.4-10.4); MONOCYTES # (AUTO) 0.5 X 10^3 (0.0-1.0); MONOCYTES % (AUTO) 8 % (0-12); NEUTROPHILS # (AUTO) 3.3 X 10^3 (1.8-7.8); NEUTROPHILS % (AUTO) 55 % (42-75); PLATELET COUNT 281 10^3/uL (130-400)
[2020-07-29 19:11] LABS: ALBUMIN 4.1 GM/DL (3.2-4.5)
[2020-07-29 19:12] LABS: POTASSIUM 3.5 MMOL/L (3.6-5.0)
[2020-07-29 19:13] LABS: CALCIUM 9.7 MG/DL (8.5-10.1)
[2020-07-29 19:14] LABS: TOTAL PROTEIN 7.9 GM/DL (6.4-8.2)
[2020-07-29 19:16] LABS: BILIRUBIN,TOTAL 0.6 MG/DL (0.1-1.0)
[2020-07-29 19:18] LABS: CREATININE SERUM 0.94 MG/DL (0.60-1.30)
[2020-07-29 19:27] LABS: ERYTHROCYTE SEDIMENTATION RATE 25 MM/HR (0-30)
[2020-07-29 19:41] LABS: TSH (THYROID ANALYZER) 1.46 UIU/ML (0.35-4.94)
[2020-07-29 19:50] LABS: FREE T4 (FREE THYROXINE) 1.09 NG/DL (0.70-1.48)
[2020-07-29 20:13] LABS: BILIRUBIN,URINE NEGATIVE (NEGATIVE); CLARITY,URINE CLEAR; COLOR,URINE YELLOW; GLUCOSE, URINE (UA) NEGATIVE (NEGATIVE); KETONES,URINE NEGATIVE (NEGATIVE); LEUKOCYTE ESTERASE ,URINE NEGATIVE (NEGATIVE); NITRITE,URINE NEGATIVE (NEGATIVE); PH,URINE 6.5 (5-9); PROTEIN,URINE NEGATIVE (NEGATIVE)
[2020-07-29 20:19] LABS: BACTERIA,URINE TRACE /HPF; WBC,URINE 0-2 /HPF
[2020-07-29 20:53] VITALS: BP 144/86
== END 2020-07-29 20:53 | disposition home or self-care (01) ==
LOC: EDUNIT# 16:34 → ER 16:35
DX: H53.2 Diplopia (principal); R13.10 Dysphagia, unspecified; R47.1 Dysarthria and anarthria; E03.9 Hypothyroidism, unspecified; E78.00 Pure hypercholesterolemia, unspecified; J45.909 Unspecified asthma, uncomplicated; I10 Essential (primary) hypertension; E66.9 Obesity, unspecified; Z88.1 Allergy status to other antibiotic agents; Z88.8 Allergy status to other drugs, medicaments and biological substances; Z68.43 Body mass index [BMI] 50.0-59.9, adult; Z79.890 Hormone replacement therapy; Z82.49 Family history of ischemic heart disease and other diseases of the circulatory system; Z79.52 Long term (current) use of systemic steroids
CPT/HCPCS: 36415; 80053; 81000; 82550; 83735; 84439; 84443; 85025; 85652; 86141

== ENCOUNTER 2020-07-31 17:19 | Inpatient (IN) | payer BC ==
[2020-07-31] VITALS (7 sets, daily range): BP systolic 157–173; BP diastolic 85–111
[~2020-07-31] VITALS: Ht 167 cm; Wt 148.3 kg
[~2020-07-31 17:19] MED LIST changes: -ACET-2715 PO; +ACET-3075 PO; -CETI10TA21 PO; +CETI10TA49 PO
--- NOTE | 2020-07-31 17:46 | History & Physical ---
History of Present Illness HPI/Chief Complaint Scribe by Samira Chau Pt is not doing well and has her daughter (icu manager) magnetic resonance imaging director to hear the plan. Pt went to Urgent Care the because the thought she was just dehydrated and then they sent her to the ER. She got fluids there and was then discharged. Pt has also lost weight from not being able to eat or drink lately. I state that I have had this on my mind that there is a movement disorder that is affecting her nervous system. I want to get more tests done to see what is going on. Myasthenia gravis, get the MRI at [place] on Tuesday. Patient had blood work done today at [facility]. This is treatable and these are the first steps to take. This can be treated in a variety of ways to help with her swallowing and her eyes and all the other problems. Dr. Clinton is putting her on Prednisone, 10 once a day, and is wanting her to stop the Humira to help. This will just tide her over for the arthritis. We need to get a referral to neurology at some point for the myasthenia gravis. Pt is able to drink very little but she was able to get half of a protein shake down in the morning but it does get worse throughout the day. I don't feel comfortable with her not being able to get her fluids in. I state that she needs to go to the hospital, not sure if [facility] or [facility]. I would put her in the hospital and get her on the fast track to get her to the higher level of care but I am not sure where I will be able to send her after that, or somewhere else. The MRI on Tuesday can probably be done in patient if she is going to be admitted till then. Pt states that she has been having trouble sleeping even with her CPAP, she would wake up with a cough and then she started to choke. Pt also isn't able to walk well unless she has support. I state that we can also do in patient rehab if it is necessary after being treated at the hospital. Pt is going to [facility] in the ICU and we will get the referral to after. Source: patient, family Exam Limitations: clinical condition Date Seen 07/31/20 Time Seen by a Provider: 17:45 Attending Physician Shayla Zamora DO PCP Shayla Zamora DO Referring Physician Date of Admission Home Medications & Allergies Home Medications Reviewed patient Home Medication Reconciliation performed by pharmacy medication reconciliations classroom technology technician and/or nursing. Patients Allergies have been reviewed. Allergies Allergies Coded Allergies adhesive tape (Verified Allergy, Intermediate, 02/21/20) BLISTERS AND RAW SKIN amlodipine (Verified Allergy, Unknown, 02/22/13) erythromycin base (Verified Allergy, Unknown, 02/22/13) Uncoded Allergies ALMONDS ( Adverse Reaction, Mild, 02/22/20) SHE HAS PAIN ALL OVER WHEN SHE EATS THEM Past Edlfjwp-Icngyu-Kqsnoz Hx Past Med/Social Hx: Reviewed Nursing Past Med/Soc Hx, Reviewed and Corrections made Patient Social History Marrital Status: Employed/Student: employed Alcohol Use: Denies Use Smoking Status: Never a Smoker 2nd Hand Smoke Exposure: No Recent Hopitalizations: No Immunizations Up To Date Tetanus Booster (TDap): Less than 5yrs Pediatric: No Date of Pneumonia Vaccine: Jan 04, 2015 Date of Influenza Vaccine: Aug 14, 2018 Seasonal Allergies Seasonal Allergies: Yes Past Medical History Surgeries: Orthopedic Respiratory: Asthma, Chronic Bronchitis, Pneumonia, Sleep Apnea Currently Using CPAP: Yes Currently Using BIPAP: No Cardiac: Chronic Edema/Swelling, Deep Vein Thrombosis, High Cholesterol, Hypertension Neurological: Neuropathy 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: No Sexually Transmitted Disease: No Menopausal Genitourinary: Bladder Infection Musculoskeletal: Arthritis, Rheumatoid Arthritis Endocrine: Hypothyroidsim, Diabetes, Non-Insulin dep Loss of Vision: Denies Hearing Impairment: Denies History of Blood Disorders: No Adverse Reaction to Blood [place]: No Family History Alcoholism G8 BROTHER G8 SISTER Alzheimer's disease 19 MOTHER Arthritis 19 FATHER Asthma G8 SISTER Cardiovascular disease 19 FATHER Cataracts 19 FATHER Coronary thrombosis 19 FATHER Deafness or hearing loss SON Diabetes mellitus 19 FATHER G8 SISTER G8 SISTER Drug abuse G8 SISTER Hypertension 19 FATHER G8 SISTER G8 SISTER Kidney disease 19 FATHER Respiratory disorder G8 SISTER G8 SISTER Seizure disorder SON Severe allergy SON Heart Disease, Diabetes, Hypertension Review of Systems Constitutional: see HPI, malaise, weakness EENTM: no symptoms reported, blurred vision, double vision, vision loss, throat swelling Respiratory: no symptoms reported Cardiovascular: no symptoms reported Gastrointestinal: no symptoms reported Genitourinary: no symptoms reported Musculoskeletal: back pain, joint pain Skin: no symptoms reported Psychiatric/Neurological: Anxiety, Depressed, Numbness, Paresthesia, Tingling, Tremors, Weakness All Other Systems Reviewed Negative Unless Noted: Yes Physical Exam Physical Exam Vital Signs Vital Signs - First Documented 07/31/20 18:21 Temp 37.3 Pulse 112 Resp 16 B/P (MAP) 167/111 (129) Pulse Ox 95 O2 Delivery Room Air Capillary Refill : Height, Weight, BMI Height: 5'6.00" Weight: 297lbs. 0.0oz. 134.845880ho; 54.00 BMI Method:Stated General Appearance: WD/WN, Anxious, Chronically ill, Mild Distress Eyes: Bilateral Eye Normal Inspection, Bilateral Eye PERRL HEENT: PERRL/EOMI, Normal ENT Inspection, Pharynx Normal Neck: Full Range of Motion, Normal Inspection, Non Tender, Supple, Carotid Bruit Respiratory: Chest Non Tender, Lungs Clear, Normal Breath Sounds, No Accessory Muscle Use, No Respiratory Distress Cardiovascular: Regular Rate, Rhythm, No Edema, No Gallop, No JVD, No Murmur, Normal Peripheral Pulses Gastrointestinal: Normal Bowel Sounds, No Organomegaly, No Pulsatile Mass, Non Tender, Soft Back: Normal Inspection, No CVA Tenderness, No Vertebral Tenderness Extremity: Normal Capillary Refill, Normal Inspection, Normal Range of Motion, Non Tender, No Calf Tenderness, No Pedal Edema Neurologic/Psychiatric: Alert, Oriented x3, Normal Mood/Affect, athletics director II-XII Norm as Tested, Abnormal Gait, EOM Palsy, Facial Droop, Motor Weakness Skin: Normal Color, Warm/Dry Lymphatic: No Adenopathy Results Results/Procedures Labs Laboratory Tests 07/31/20 19:25 08/01/20 04:10 Patient resulted labs reviewed. Assessment/Plan Admission Diagnosis Assessment: Presumed myasthenia gravis with early crisis RA on Humira Obesity RALPH on CPAP DM diet controlled HTN HLP Plan: Monitor vital capacity ICU care required due to respiratory compromise increased risk O2 Labs [facility] transfer Admission Status: Inpatient Order (span 2 midnights) Reason for Inpatient Admission: myasthenia gravis Diagnosis/Problems Diagnosis/Problems (1) Myasthenia gravis (2) Hypertension Status: Chronic (3) Hypothyroidism Status: Chronic (4) Diabetes mellitus Status: Chronic (5) Rheumatoid arthritis Status: Chronic (6) Dysarthria Status: Acute (7) Dysphagia Status: Acute (8) Vision disturbance Status: Acute (9) Diplopia Status: Acute (10) Difficulty swallowing Status: Acute (11) Arthritis of right knee Status: Acute SHAYLA ZAMORA DO Jul 31, 2020 17:46
[2020-07-31] MEDS: NS IV 1000 ML 1,000 ML IV SCH (18:36)
[2020-07-31 19:39] LABS: BASOPHILS % (AUTO) 1 % (0-10); EOSINOPHILS # (AUTO) 0.1 10^3/uL (0.0-0.3); EOSINOPHILS % (AUTO) 2 % (0-10); HEMATOCRIT 42 % (35-52); HEMOGLOBIN 13.8 G/DL (11.5-16.0); LYMPHOCYTES # (AUTO) 2.1 X 10^3 (1.0-4.0); LYMPHOCYTES % (AUTO) 35 % (12-44); MEAN CORPUSCULAR HEMOGLOBIN 30 PG (25-34); MEAN CORPUSCULAR HGB CONC 33 G/DL (32-36); MEAN CORPUSCULAR VOLUME 90 FL (80-99); MEAN PLATELET VOLUME 9.6 FL (7.4-10.4); MONOCYTES # (AUTO) 0.5 X 10^3 (0.0-1.0); MONOCYTES % (AUTO) 8 % (0-12); NEUTROPHILS # (AUTO) 3.4 X 10^3 (1.8-7.8); NEUTROPHILS % (AUTO) 55 % (42-75); PLATELET COUNT 270 10^3/uL (130-400); WHITE BLOOD COUNT 6.1 10^3/uL (4.3-11.0)
[2020-07-31 19:57] LABS: ALANINE AMINOTRANSFERASE 34 U/L (0-55); ALBUMIN 3.7 GM/DL (3.2-4.5); ALKALINE PHOSPHATASE 108 U/L (40-136); BILIRUBIN,TOTAL 0.6 MG/DL (0.1-1.0); BUN/CREATININE RATIO 12; CARBON DIOXIDE 29 MMOL/L (21-32); CHLORIDE 103 MMOL/L (98-107); CREATININE SERUM 0.89 MG/DL (0.60-1.30); GFR ESTIMATED > 60; GLUCOSE 121 MG/DL (70-105); POTASSIUM 3.6 MMOL/L (3.6-5.0); SODIUM 140 MMOL/L (135-145); TOTAL PROTEIN 7.2 GM/DL (6.4-8.2)
[2020-07-31 20:18] LABS: ERYTHROCYTE SEDIMENTATION RATE 42 MM/HR (0-30)
[2020-07-31] MEDS: ENOXAPARIN 60 MG/0.6 ML (LOVENOX) SYR SC SCH (20:30)
[2020-07-31] MEDS ORDERED: cloNIDine 0.1 MG (CATAPRES) TAB PO PRN (20:45)
--- NOTE | 2020-07-31 21:12 | Diagnostic Imaging Report ---
INDICATION: Weakness. EXAMINATION: Chest, 07/31/2020. COMPARISON: 02/21/2020. FINDINGS: Two views of the chest. The cardiomediastinal silhouette is unremarkable. The pulmonary vasculature is within normal limits. The lungs and pleural spaces are clear. IMPRESSION: No evidence of an acute cardiopulmonary process. Dictated by: Dictated on workstation # [id number]
--- NOTE | 2020-07-31 21:18 | Diagnostic Imaging Report ---
INDICATION: History of CVA. Myasthenia gravis. Weakness. EXAMINATION: CT brain without contrast, 07/31/2020. All CT scans use one or more of the following dose optimizing techniques: automated exposure control, MA and/or KvP adjustment based on patient size and exam type or iterative reconstruction. COMPARISON: 07/18/2020 FINDINGS: There is no hemorrhage or infarct. No mass, mass effect or midline shift. No hydrocephalus. Paranasal sinuses unremarkable for acute abnormality. There is partial opacification of the mastoid air cells, more pronounced than on previous examination. Clinical exclusion of acute mastoiditis recommended. IMPRESSION: 1. No acute intrarenal process. 2. Findings within the mastoid air cells as above. Dictated by: Dictated on workstation # [id number]
[2020-08-01] VITALS (11 sets, daily range): BP systolic 121–188; BP diastolic 64–104
[2020-08-01] MEDS: NS IV 1000 ML 1,000 ML IV SCH ×2 (02:25→10:29)
[2020-08-01 04:24] LABS: BASOPHILS % (AUTO) 1 % (0-10); EOSINOPHILS # (AUTO) 0.1 10^3/uL (0.0-0.3); EOSINOPHILS % (AUTO) 3 % (0-10); HEMATOCRIT 41 % (35-52); HEMOGLOBIN 13.3 G/DL (11.5-16.0); LYMPHOCYTES % (AUTO) 41 % (12-44); MEAN CORPUSCULAR HEMOGLOBIN 30 PG (25-34); MEAN CORPUSCULAR HGB CONC 33 G/DL (32-36); MEAN CORPUSCULAR VOLUME 91 FL (80-99); MEAN PLATELET VOLUME 9.7 FL (7.4-10.4); MONOCYTES # (AUTO) 0.5 X 10^3 (0.0-1.0); MONOCYTES % (AUTO) 10 % (0-12); NEUTROPHILS # (AUTO) 2.3 X 10^3 (1.8-7.8); NEUTROPHILS % (AUTO) 47 % (42-75); PLATELET COUNT 233 10^3/uL (130-400); WHITE BLOOD COUNT 4.8 10^3/uL (4.3-11.0)
[2020-08-01 04:34] LABS: ALBUMIN 3.6 GM/DL (3.2-4.5)
[2020-08-01 04:35] LABS: CHLORIDE 105 MMOL/L (98-107); POTASSIUM 3.5 MMOL/L (3.6-5.0); SODIUM 141 MMOL/L (135-145)
--- NOTE | 2020-08-01 04:35 | Pulmonary Consultation ---
JOSEPH MALONEY MED STUDENT 08/01/20 0435: History of Present Illness History of Present Illness Date Seen by Provider: Aug 01, 2020 Time Seen by Provider: 04:15 Date of Admission History of Present Illness Roselia Maldonado is a 60 year old female seen today due to increasing difficulty speaking and swallowing, suspicion for myasthenia gravis. She reports that over the past three weeks she has had progressive difficulty speaking and swallowing, which has caused reduced intake of food and fluid. She reports that over the course of a conversation her speech will become more difficult to understand. She has also had double vision. Her R eyelid is drooping, however she reports that she was diagnosed with [place] palsy last September, and that she is unsure if her eyelid is drooping more than normal. Denies any other weakness, denies any new numbness or paresthesias. She reports that she has had trouble walking chronically due to neuropathy, and has experienced a tingling sensation in her hands and feet for many years. She has SOB intermittently due to asthma, no new SOB. She has not had any fever or chills. Allergies and Home Medications Allergies Coded Allergies: adhesive tape (Verified Allergy, Intermediate, 02/21/20) BLISTERS AND RAW SKIN amlodipine (Verified Allergy, Unknown, 02/22/13) erythromycin base (Verified Allergy, Unknown, 02/22/13) Uncoded Allergies: ALMONDS (Adverse Reaction, Mild, 02/22/20) SHE HAS PAIN ALL OVER WHEN SHE EATS THEM Home Medications Acetaminophen/Diphenhydramine 1 Each Tablet, 2 EACH PO HS PRN for SLEEP, (Reported) Albuterol Sulfate 1 Puff Puff, 2 PUFF INH Q4H PRN for SHORTNESS OF BREATH, (Reported) Atorvastatin Calcium 20 Mg Tablet, 20 MG PO DAILY, (Reported) Azithromycin 500 Mg Tablet, 500 MG PO DAILY Prescribed by: MARY TAPIA on 02/23/20 1123 Cetirizine HCl 10 Mg Tablet, 10 MG PO BID, (Reported) Cholecalciferol (Vitamin D3) 25 Mcg Capsule, 25 MCG PO DAILY, (Reported) Clonidine HCl 0.1 Mg Tablet, 0.1 MG PO BID, (Reported) Fish Oil/Dha/Epa 1 Each Capsule, 1 EACH PO DAILY, (Reported) Fluticasone Propionate 16 Gm [place].susp, 1 SPRAYS NS DAILY, (Reported) Fluticasone/Vilanterol 1 Each Blst.w.dev, 1 PUFF INH DAILY, (Reported) Guaifenesin 600 Mg Tab.er.12h, 600 MG PO Q12H PRN for CONGESTION, (Reported) Ipratropium/Albuterol Sulfate 3 Ml Ampul.neb, 3 ML IH QID PRN for SHORTNESS OF BREATH, (Reported) LAST FILLED 10-04-2018 Levothyroxine Sodium 50 Mcg Tablet, 50 MCG PO DAILY, (Reported) Montelukast Sodium 10 Mg Tablet, 10 MG PO DAILY, (Reported) Prednisone 10 Mg Tab.ds.pk, 10 MG PO DAILY Take 6 tabs(60mg)daily,decrease by 1 tab(10mg)every other day. Prescribed by: MARY TAPIA on 02/23/20 1123 Tiotropium [place] 4 Gm Mist.inhal, 2 PUFF INH DAILY, (Reported) LAST FILLED 11-15-2019 #12/13 DAY SUPPLY Triamterene/Hydrochlorothiazid 1 Each Capsule, 1 CAP PO DAILY, (Reported) Past Wxuxtgw-Zscxgg-Liwdet Hx Patient Social History 2nd Hand Smoke Exposure: No Recent Hopitalizations: No Immunizations Up To Date Tetanus Booster (TDap): Less than 5yrs PED Vaccines UTD: No Date of Pneumonia Vaccine: Jan 04, 2018 Date of Influenza Vaccine: Aug 14, 2018 Seasonal Allergies Seasonal Allergies: Yes Past Medical History Surgeries: Yes (FOOT SURGERY) Orthopedic Respiratory: Yes (CHRONIC COUGH) Asthma, Sleep Apnea Currently Using CPAP: Yes Currently Using BIPAP: No Cardiac: Yes Deep Vein Thrombosis, High Cholesterol, Hypertension Neurological: Yes Neuropathy : No 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 Disorders: No PSYCHOLOGIST EDUCATIONAL History: Menopausal Sexually Transmitted Disease: No Genitourinary: Yes Bladder Infection Gastrointestinal: No Musculoskeletal: Yes (ON HUMIRA) Arthritis, Rheumatoid Arthritis Endocrine: Yes (OBESITY) Hypothyroidsim, Diabetes, Non-Insulin dep HEENT: No Loss of Vision: Denies Hearing Impairment: Denies Cancer: No Psychosocial: No Integumentary: No Blood Disorders: No Adverse Reaction/Blood Tranf: No Family Medical History Alcoholism G8 BROTHER G8 SISTER Alzheimer's disease 19 MOTHER Arthritis 19 FATHER Asthma G8 SISTER Cardiovascular disease 19 FATHER Cataracts 19 FATHER Coronary thrombosis 19 FATHER Deafness or hearing loss SON Diabetes mellitus 19 FATHER G8 SISTER G8 SISTER Drug abuse G8 SISTER Hypertension 19 FATHER G8 SISTER G8 SISTER Kidney disease 19 FATHER Respiratory disorder G8 SISTER G8 SISTER Seizure disorder SON Severe allergy SON Heart Disease, Diabetes, Hypertension Review of Systems Constitutional: Weakness; No: Fever, Chills Eyes: Vision change (double vision) ENT: No: Nose congestion, Throat pain Respiratory: Shortness of breath (asthma); No: Cough Cardiovascular: Palpitations (heart racing, attributes to recent stress in life); No: Chest Pain Gastrointestinal: Constipation (improves with stool softeners); No: Nausea, Vomiting, Abdominal Pain, Diarrhea Genitourinary: No Dysuria, No Frequency, No Incontinence; Retention Musculoskeletal: arm pain (RA), hand pain (RA) Neurological: Weakness, Numbness (neuropathy), Change in speech Sepsis Event Evaluation Height, Weight, BMI Height: 5'6.00" Weight: 297lbs. 0.0oz. 134.838594ni; 54.57 BMI Method:Stated Exam Exam Vital Signs Date Time Temp Pulse Resp B/P (MAP) Pulse Ox O2 Delivery O2 Flow Rate FiO2 08/01/20 03:50 96 NIV CPAP 2.00 08/01/20 03:50 36.4 NIV CPAP 2.00 08/01/20 03:00 70 23 148/73 (98) 97 NIV CPAP 2.00 08/01/20 02:00 54 18 121/64 (83) 98 NIV CPAP 2.00 08/01/20 01:00 62 22 174/97 (122) 97 NIV CPAP 2.00 08/01/20 01:00 63 08/01/20 00:00 NIV CPAP 2.00 08/01/20 00:00 72 19 163/94 (117) 98 NIV CPAP 2.00 08/01/20 00:00 97 NIV CPAP 2.00 08/01/20 00:00 36.6 07/31/20 23:00 71 23 166/101 (122) 96 Nasal Cannula 2.00 07/31/20 22:00 68 22 157/101 (119) 97 Nasal Cannula 2.00 07/31/20 21:00 78 27 158/98 (118) 97 Nasal Cannula 2.00 07/31/20 20:35 Nasal Cannula 2.00 07/31/20 20:00 36.5 07/31/20 20:00 79 29 169/85 (113) 96 Room Air 9/17/20 20:00 95 Nasal Cannula 2.00 07/31/20 19:30 79 23 169/90 (116) 92 Room Air 07/31/20 19:15 79 22 173/109 (130) 92 Room Air 07/31/20 19:05 80 07/31/20 19:00 80 24 94 Room Air 07/31/20 18:21 37.3 112 16 167/111 (129) 95 Room Air I & O 08/01/20 07:00 Intake Total 1300 ml Output Total 375 ml Balance 925 ml Height & Weight Height: 5'6.00" Weight: 297lbs. 0.0oz. 134.906412sd; 54.57 BMI Method:Stated General Appearance: No Apparent Distress, Obese HEENT: PERRL/EOMI; No Scleral Icterus (L), No Scleral Icterus (R); Other (R eyelid drooping) Neck: Full Range of Motion, Normal Inspection, Non Tender, Supple Respiratory: Chest Non Tender, Lungs Clear, Normal Breath Sounds, No Accessory Muscle Use, No Respiratory Distress Cardiovascular: Regular Rate, Rhythm, No Murmur, Normal Peripheral Pulses Capillary Refill: Less Than 3 Seconds Peripheral Pulses: 2+ Dorsalis Pedis (R), 2+ Left Dors-Pedis (L), 2+ Radial Pulses (R), 2+ Radial Pulses (L) Extremity: Normal Capillary Refill, Normal Inspection, Non Tender, No Calf Tenderness, Pedal Edema Neurologic/Psychiatric: Alert, Oriented x3, Normal Mood/Affect Skin: Normal Color, Warm/Dry Results Lab Laboratory Tests 07/31/20 19:25 Assessment/Plan Assessment/Plan Dysphagia, dysarthria - Achetylcholine receptor binding Ab pending - monitor for progression of symptoms - NS, concern for dehydration DVT prophylaxis, hx of DVT - on lovenox Asthma - consider continuation of home medication regimen RA - consider continuation of home medication regimen Hypothyroid - consider continuation of home medication regimen JENNY TORRES DO 08/01/20 0617: History of Present Illness History of Present Illness Time Seen by Provider: 06:14 Allergies and Home Medications Allergies Coded Allergies: adhesive tape (Verified Allergy, Intermediate, 02/21/20) BLISTERS AND RAW SKIN amlodipine (Verified Allergy, Unknown, 02/22/13) erythromycin base (Verified Allergy, Unknown, 02/22/13) Uncoded Allergies: ALMONDS (Adverse Reaction, Mild, 02/22/20) SHE HAS PAIN ALL OVER WHEN SHE EATS THEM Home Medications Acetaminophen/Diphenhydramine 1 Each Tablet, 2 EACH PO HS PRN for SLEEP, (Reported) Albuterol Sulfate 1 Puff Puff, 2 PUFF INH Q4H PRN for SHORTNESS OF BREATH, (Reported) Atorvastatin Calcium 20 Mg Tablet, 20 MG PO DAILY, (Reported) Azithromycin 500 Mg Tablet, 500 MG PO DAILY Prescribed by: MARY TAPIA on 02/23/20 112 Cetirizine HCl 10 Mg Tablet, 10 MG PO BID, (Reported) Cholecalciferol (Vitamin D3) 25 Mcg Capsule, 25 MCG PO DAILY, (Reported) Clonidine HCl 0.1 Mg Tablet, 0.1 MG PO BID, (Reported) Fish Oil/Dha/Epa 1 Each Capsule, 1 EACH PO DAILY, (Reported) Fluticasone Propionate 16 Gm [place].susp, 1 SPRAYS NS DAILY, (Reported) Fluticasone/Vilanterol 1 Each Blst.w.dev, 1 PUFF INH DAILY, (Reported) Guaifenesin 600 Mg Tab.er.12h, 600 MG PO Q12H PRN for CONGESTION, (Reported) Ipratropium/Albuterol Sulfate 3 Ml Ampul.neb, 3 ML IH QID PRN for SHORTNESS OF BREATH, (Reported) LAST FILLED 10-04-2018 Levothyroxine Sodium 50 Mcg Tablet, 50 MCG PO DAILY, (Reported) Montelukast Sodium 10 Mg Tablet, 10 MG PO DAILY, (Reported) Prednisone 10 Mg Tab.ds.pk, 10 MG PO DAILY Take 6 tabs(60mg)daily,decrease by 1 tab(10mg)every other day. Prescribed by: MARY TAPIA on 02/23/20 112 Tiotropium [place] 4 Gm Mist.inhal, 2 PUFF INH DAILY, (Reported) LAST FILLED 11-15-2019 #12/13 DAY SUPPLY Triamterene/Hydrochlorothiazid 1 Each Capsule, 1 CAP PO DAILY, (Reported) Past Oakdibs-Lgnizd-Vqxsco Hx Family Medical History Alcoholism G8 BROTHER G8 SISTER Alzheimer's disease 19 MOTHER Arthritis 19 FATHER Asthma G8 SISTER Cardiovascular disease 19 FATHER Cataracts 19 FATHER Coronary thrombosis 19 FATHER Deafness or hearing loss SON Diabetes mellitus 19 FATHER G8 SISTER G8 SISTER Drug abuse G8 SISTER Hypertension 19 FATHER G8 SISTER G8 SISTER Kidney disease 19 FATHER Respiratory disorder G8 SISTER G8 SISTER Seizure disorder SON Severe allergy SON Assessment/Plan Assessment/Plan Dysphagia, dysarthria r/o myasthenia gravis - Achetylcholine receptor binding Ab pending - monitor for progression of symptoms - IVF DVT prophylaxis, hx of DVT - on lovenox Asthma- Currently stable - advair and duoneb tx RA Hypothyroid - Home meds JOSEPH MALONEY MED STUDENT Aug 01, 2020 04:35 JENNY TORRES DO Aug 01, 2020 06:17
[2020-08-01 04:36] LABS: CALCIUM 8.6 MG/DL (8.5-10.1)
[2020-08-01 04:37] LABS: GLUCOSE 116 MG/DL (70-105); TOTAL PROTEIN 6.8 GM/DL (6.4-8.2)
[2020-08-01 04:38] LABS: CARBON DIOXIDE 25 MMOL/L (21-32)
[2020-08-01 04:39] LABS: BILIRUBIN,TOTAL 0.5 MG/DL (0.1-1.0)
[2020-08-01 04:41] LABS: ALKALINE PHOSPHATASE 99 U/L (40-136); CREATININE SERUM 0.81 MG/DL (0.60-1.30); GFR ESTIMATED > 60
[2020-08-01 04:42] LABS: BUN/CREATININE RATIO 15
[2020-08-01 04:44] LABS: ALANINE AMINOTRANSFERASE 33 U/L (0-55)
[2020-08-01] MEDS ORDERED: KCL 20 MEQ TAB (K-DUR) PO SCH (06:00)
[2020-08-01] MEDS ORDERED: POTASSIUM CL 10MEQ/50ML IVPB 50 ML IV SCH (06:00)
[2020-08-01] MEDS ORDERED: MAGNESIUM 1 GM/100 ML IVPB 100 ML IV SCH (06:00)
[2020-08-01] MEDS ORDERED: RT-ALBUTEROL/IPRATROPIUM 3 ML (DUONEB) VIAL INH SCH (07:00)
--- NOTE | 2020-08-01 07:57 | Diagnostic Imaging Report ---
Indication: Dyspnea. Compared: 07/31/2020 Findings: No focal consolidation, failure, effusion or pneumothorax. Heart size is mildly enlarged. Impression: Mild prominence of the cardiac silhouette but no acute finding. Dictated by: Dictated on workstation # [id number]
[2020-08-01] MEDS ORDERED: ADVAIR HFA 115/21 MCG INHALER 8 GM IH SCH (08:00)
[2020-08-01] MEDS ORDERED: KCL 20 MEQ TAB (K-DUR) PO ONE (08:00)
[2020-08-01] MEDS: ENOXAPARIN 60 MG/0.6 ML (LOVENOX) SYR SC SCH (09:28)
--- NOTE | 2020-08-01 10:46 | Discharge Summary ---
Diagnosis/Chief Complaint Date of Admission Jul 31, 2020 at 17:44 Date of Discharge Discharge Date: Aug 01, 2020 Discharge Diagnosis New diagnosis of myasthenia gravis in early crisis Discharge Summary Discharge Physical Examination Allergies: Coded Allergies: adhesive tape (Verified Allergy, Intermediate, 02/21/20) BLISTERS AND RAW SKIN amlodipine (Verified Allergy, Unknown, 02/22/13) erythromycin base (Verified Allergy, Unknown, 02/22/13) Uncoded Allergies: ALMONDS (Adverse Reaction, Mild, 02/22/20) SHE HAS PAIN ALL OVER WHEN SHE EATS THEM Vitals & I&Os Vital Signs Date Time Temp Pulse Resp B/P (MAP) Pulse Ox O2 Delivery O2 Flow Rate FiO2 08/01/20 12:41 36.8 87 19 96 Nasal Cannula 2.00 General Appearance: Alert, Oriented X3, Cooperative Respiratory: Clear to Auscultation Cardiovascular: Regular Rate Hospital Course Was the Problem List Reviewed?: Yes Patient had a brief hospital course after direct admit from my clinic due to new diagnosis of myasthenia gravis presumed with early and impending crisis. ICU admit monitored vital capacity and supportive IVF given. CT normal as were labs. [facility] accepted patient in transfer after updated on referral line and reviewed all tests in-depth requiring 35 minutes of management time. Labs (last 24 hrs) Laboratory Tests 07/31/20 19:25: White Blood Count 6.1, Red Blood Count 4.65, Hemoglobin 13.8, Hematocrit 42, Mean Corpuscular Volume 90, Mean Corpuscular Hemoglobin 30, Mean Corpuscular Hemoglobin Concent 33, Red Cell Distribution Width 13.8, Platelet Count 270, Mean Platelet Volume 9.6, Neutrophils (%) (Auto) 55, Lymphocytes (%) (Auto) 35, Monocytes (%) (Auto) 8, Eosinophils (%) (Auto) 2, Basophils (%) (Auto) 1, Neutrophils # (Auto) 3.4, Lymphocytes # (Auto) 2.1, Monocytes # (Auto) 0.5, Eosinophils # (Auto) 0.1, Basophils # (Auto) 0.0, Erythrocyte Sedimentation Rate 42H, Sodium Level 140, Potassium Level 3.6, Chloride Level 103, Carbon Dioxide Level 29, Anion Gap 8, Blood Urea Nitrogen 11, Creatinine 0.89, Estimat Glomerular Filtration Rate > 60, BUN/Creatinine Ratio 12, Glucose Level 121H, Lactic Acid Level 0.95, Calcium Level 9.0, Corrected Calcium 9.2, Total Bilirubin 0.6, Aspartate Amino Transf (AST/SGOT) 26, Alanine Aminotransferase (ALT/SGPT) 34, Alkaline Phosphatase 108, Total Protein 7.2, Albumin 3.7, Pro calcitonin 0.05 07/31/20 21:43: Glucometer 119H 08/01/20 04:10: White Blood Count 4.8, Red Blood Count 4.51, Hemoglobin 13.3, Hematocrit 41, Mean Corpuscular Volume 91, Mean Corpuscular Hemoglobin 30, Mean Corpuscular Hemoglobin Concent 33, Red Cell Distribution Width 13.9, Platelet Count 233, Mean Platelet Volume 9.7, Neutrophils (%) (Auto) 47, Lymphocytes (%) (Auto) 41, Monocytes (%) (Auto) 10, Eosinophils (%) (Auto) 3, Basophils (%) (Auto) 1, Neutrophils # (Auto) 2.3, Lymphocytes # (Auto) 2.0, Monocytes # (Auto) 0.5, Eosinophils # (Auto) 0.1, Basophils # (Auto) 0.0, Sodium Level 141, Potassium Level 3.5L, Chloride Level 105, Carbon Dioxide Level 25, Anion Gap 11, Blood Urea Nitrogen 12, Creatinine 0.81, Estimat Glomerular Filtration Rate > 60, BUN/Creatinine Ratio 15, Glucose Level 116H, Calcium Level 8.6, Corrected Carlos cium 8.9, Total Bilirubin 0.5, Aspartate Amino Transf (AST/SGOT) 24, Alanine Aminotransferase (ALT/SGPT) 33, Alkaline Phosphatase 99, Total Protein 6.8, Albumin 3.6 08/01/20 10:41: Glucometer 112H Pending Labs Laboratory Tests 07/31/20 19:25: White Blood Count 6.1, Red Blood Count 4.65, Hemoglobin 13.8, Hematocrit 42, M dong Corpuscular Volume 90, Mean Corpuscular Hemoglobin 30, Mean Corpuscular Hemoglobin Concent 33, Red Cell Distribution Width 13.8, Platelet Count 270, Mean Platelet Volume 9.6, Neutrophils (%) (Auto) 55, Lymphocytes (%) (Auto) 35, Monocytes (%) (Auto) 8, Eosinophils (%) (Auto) 2, Basophils (%) (Auto) 1, Neutrophils # (Auto) 3.4, Lymphocytes # (Auto) 2.1, Monocytes # (Auto) 0.5, E osinophils # (Auto) 0.1, Basophils # (Auto) 0.0, Erythrocyte Sedimentation Rate 42, Sodium Level 140, Potassium Level 3.6, Chloride Level 103, Carbon Dioxide Level 29, Anion Gap 8, Blood Urea Nitrogen 11, Creatinine 0.89, Estimat Glomerular Filtration Rate > 60, BUN/Creatinine Ratio 12, Glucose Level 121, Lactic Acid Level 0.95, Calcium Level 9.0, Corrected Calcium 9.2, Total Bilir ubin 0.6, Aspartate Amino Transf (AST/SGOT) 26, Alanine Aminotransferase (ALT/SGPT) 34, Alkaline Phosphatase 108, Total Protein 7.2, Albumin 3.7, Procalcitonin 0.05, Acetylcholine Receptor Binding Ab [Pending] 07/31/20 21:43: Glucometer 119 08/01/20 04:10: White Blood Count 4.8, Red Blood Count 4.51, Hemoglobin 13.3, Hematocrit 41, Mean Corpuscular Volume 91, Mean Corpuscular Hemoglobin 30, Mean Corpuscular Hemoglobin Concent 33, Red Cell Distribution Width 13.9, Platelet Count 233, Mean Platelet Volume 9.7, Neutrophils (%) (Auto) 47, Lymphocytes (%) (Auto) 41, Monocytes (%) (Auto) 10, Eosinophils (%) (Auto) 3, Basophils (%) (Auto) 1, Neutrophils # (Auto) 2.3, Lymphocytes # (Auto) 2.0, Monocytes # (Auto) 0.5, Eosinophils # (Auto) 0.1, Basophils # (Auto) 0.0, Sodium Level 141, Potassium Level 3.5, Chloride Level 105, Carbon Dioxide Level 25, Anion Gap 11, Blood Urea Nitrogen 12, Creatinine 0.81, Estimat Glomerular Filtration Rate > 60, BUN/Creatinine Ratio 15, Glucose Level 116, Calcium Level 8.6, Corrected Calcium 8.9, Total Bilirubin 0.5, Aspartate Amino Transf (AST/SGOT) 24, Alanine Aminotransferase (ALT/SGPT) 33, Alkaline Phosphatase 99, Total Protein 6.8, Albumin 3.6 08/01/20 10:41: Glucometer 112 Discharge Home Medications: Active Scripts Active Zithromax Tri-Raul (Azithromycin) 500 Mg Tablet 500 Mg PO DAILY Prednisone 10 Mg Tab.ds.pk 10 Mg PO DAILY Take 6 tabs(60mg)daily,decrease by 1 tab(10mg)every other day. Reported Tylenol Pm Ex-Strength Caplet (Acetaminophen/Diphenhydramine) 1 Each Tablet 2 Each PO HS PRN Mucinex (Guaifenesin) 600 Mg Tab.er.12h 600 Mg PO Q12H PRN Fish Oil 1,200 mg Fish Oil (Fish Oil/Dha/Epa) 1 Each Capsule 1 Each PO DAILY Vitamin D3 (Cholecalciferol (Vitamin D3)) 25 Mcg Capsule 25 Mcg PO DAILY Iprat-Albut 0.5-3(2.5) mg/3 ml (Ipratropium/Albuterol Sulfate) 3 Ml Ampul.neb 3 Ml IH QID PRN LAST FILLED 10-04-2018 Fluticasone Propionate 16 Gm [place].susp 1 Sprays NS DAILY Proair Hfa (Albuterol Sulfate) 1 Puff Puff 2 Puff INH Q4H PRN Zyrtec (Cetirizine HCl) 10 Mg Tablet 10 Mg PO BID Atorvastatin Calcium 20 Mg Tablet 20 Mg PO DAILY Triamterene-Hctz 37.5-25 mg Cp (Triamterene/Hydrochlorothiazid) 1 Each Capsule 1 Cap PO DAILY Spiriva Respimat 1.25MCG/ACTUATION (Tiotropium [place]) 4 Gm Mist.inhal 2 Puff INH DAILY LAST FILLED 11-15-2019 #12/13 DAY SUPPLY Breo Ellipta 200-25 Mcg INH (Fluticasone/Vilanterol) 1 Each Blst.w.dev 1 Puff INH DAILY Montelukast Sodium 10 Mg Tablet 10 Mg PO DAILY Clonidine HCl 0.1 Mg Tablet 0.1 Mg PO BID Levothyroxine Sodium 50 Mcg Tablet 50 Mcg PO DAILY Instructions to patient/family Please see electronic discharge instructions given to patient. Diagnosis/Problems Diagnosis/Problems (1) Myasthenia gravis (2) Hypertension Status: Chronic (3) Hypothyroidism Status: Chronic (4) Diabetes mellitus Status: Chronic (5) Rheumatoid arthritis Status: Chronic (6) Dysarthria Status: Acute (7) Dysphagia Status: Acute (8) Vision disturbance Status: Acute (9) Diplopia Status: Acute (10) Difficulty swallowing Status: Acute (11) Arthritis of right knee Status: Acute Clinical Quality Measures DVT/VTE Risk/Contraindication: Risk Factor Score Per Nursin RFS Level Per Nursing on Admit: 3=High FABIENNE ZAMORA DO Aug 01, 2020 10:46
--- NOTE | 2020-08-01 11:57 | Progress Note ---
BRAD PALMA MED STUDENT 08/01/20 1157: Progress Note Neurology Exam Reported Symptoms: * Diplopia * Dysphagia * Dysarthria (fatigable) * Ptosis of right eye more than left * Unsteady gait (assistance necessary) * Tremor at rest and in action * Poor bug trimmer control (drops objects) * "Muffled" hearing right side * Right sided facial edema * Tires easily Gross Symptoms: * Ptosis of right eye more than left * Dysarthria (fatigable) * Unsteady gait observed prior to admission * Tremor more noticeable during movement * Tires easily with exertion Exam: * Mental Status * Aware and attentive * A&Ox3 * Mood/ affect congruent * Dysarthria * CN's * CN VIII- hearing decreased in right ear * All other CN II-XII intact * Motor * UE/ LE strength +5/5 bilateral * Fluidity/ smoothness of movements noted * Normal rapid alternating movements * Reflexes * Brachioradialis +1/4 bilateral * Achilles +1/4 bilateral * Sensation * UE/ LE sensation intact * Coordination * Haogvo-dz-esom difficulty (overshooting, tremor) SHAYLA ZAMORA DO 08/02/20 0702: Supervisory-Addendum Brief Verification & Attestation Participated in pt care: history, MDM, physical Personally performed: exam, history, MDM, supervision of care Care discussed with: Medical Student Procedures: n/a Results interpretation: Verified all documentation Verification and Attestation of Medical Student E/M Service A medical student performed and documented this service in my presence. I reviewed and verified all information documented by the medical student and made modifications to such information, when appropriate. I personally performed the physical exam and medical decision making. Shayla Zamora, Aug 02, 2020,07:02 BRAD PALMA MED STUDENT Aug 01, 2020 11:57 SHAYLA ZAMORA DO Aug 02, 2020 07:02
--- NOTE | 2020-08-01 13:46 | NUR ---
RD ASSESSMENT PMHx: pneumonia; DVT; hypercholesterolemia; HTN; RA; hypothyroidism; DM PT INTERACTION: Pt was awake and pleasant during nutrition assessment. Pt states current appetite is okay. Note PO intake of 100% x1meal, per chart review. Pt states following a regular diet at home, and has no issues with chewing/swallowing food. Pt states no recent issues with nausea, vomiting, or diarrhea. Pt states some recent issues wtih constipation, and that her last BM was 07/31. Note pt not currently on bowel regimen per chart review. Pt states recent 12# wt loss, but unsure of timeframe. Note recent 12# wt loss x5mon, per chart review. When asked about current level of DM management, pt stated "I am not a diabetic." Note unable to determine recent HbA1c, per chart review. ABNORMAL NUTRITION-RELATED LAB VALUES LOW: K 3.5; HIGH: glu 116 Est. kcal needs: 1475 kcal | 25 kcal/kg IBW, based on IBW of 59.1 kg (130#) Est. Pro needs: 59 g Pro | 1.0 g Pro/kg IBW PES STATEMENT: Inadequate oral intake (NI-2.1) related to loss of appetite | constipation as evidenced by pt interview INTERVENTION: Continue with current diet order of Clear Liquid diet. Pt may benefit from diet advancement to consistent CHO diet, as medically able and as tolerated. Did not offer diet education at this time, as pt stated she was not a diabetic. Will continue to follow and reassess as pt needs, intake, and status change. Cristy Deleon, MS, RD, LD
== END 2020-08-01 12:41 | disposition short-term general hospital (02) | DRG 57 ==
LOC: ICU 17:44
PROVIDERS: ADMIT Internal Medicine; ATTEND Internal Medicine
DX: G70.01 Myasthenia gravis with (acute) exacerbation (principal); M06.9 Rheumatoid arthritis, unspecified; G47.33 Obstructive sleep apnea (adult) (pediatric); E11.40 Type 2 diabetes mellitus with diabetic neuropathy, unspecified; I10 Essential (primary) hypertension; E78.5 Hyperlipidemia, unspecified; E66.9 Obesity, unspecified; E03.9 Hypothyroidism, unspecified; R47.1 Dysarthria and anarthria; R13.10 Dysphagia, unspecified; H53.2 Diplopia; M17.11 Unilateral primary osteoarthritis, right knee; J45.909 Unspecified asthma, uncomplicated; E78.00 Pure hypercholesterolemia, unspecified; H02.403 Unspecified ptosis of bilateral eyelids; R25.1 Tremor, unspecified; R26.81 Unsteadiness on feet; Z86.718 Personal history of other venous thrombosis and embolism
CPT/HCPCS: 36415; 70450; 71045; 71046; 80053; 82962; 83519; 83605; 84145; 85025; 85652; 94010; 94640

== ENCOUNTER 2020-08-10 15:35 | Inpatient (IN) | payer BC ==
[~2020-08-10] VITALS: Ht 167.7 cm; Wt 139.7 kg
[~2020-08-10 15:35] MED LIST changes: +ACETAMINOPHEN 500 MG TAB (TYLENOL) PO PRN; +ALPRAZolam 0.25 MG (XANAX) TAB PO PRN; +BISACODYL 10 MG SUPP (DULCOLAX) PR PRN; +CALCIUM CARBONATE 500 MG (TUMS) TAB.CHEW PO PRN; +DOCUSATE SODIUM 100 MG (COLACE) CAP PO PRN; +ENOXAPARIN 40 MG/0.4 ML (LOVENOX) SYR SC SCH; +FLEET ENEMA ADULT 1 EA BTL PR PRN; +HYDROcodone/APAP 5 MG/325 MG (LORTAB) TAB PO PRN; +LACTULOSE SYRUP 10GM/15ML (ENULOSE) 30ML UDC PO PRN; +LOPERAMIDE 2 MG (IMODIUM) TABLET PO PRN; +ONDANSETRON 4 MG (ZOFRAN) ORAL DISSOLVE TAB PO PRN; +diphenhydrAMINE 25 MG TAB (BENADRYL) PO PRN; +guaiFENesin/CODEINE (ROBITUSSIN AC) 10ML UDC PO PRN
[2020-08-10 18:20] VITALS: BP 138/65
[2020-08-10 18:32] VITALS: BP 138/65
[2020-08-10] MEDS ORDERED: cloNIDine 0.1 MG (CATAPRES) TAB ONE (20:22)
[2020-08-10] MEDS ORDERED: CALCIUM CARB + VIT D 600 MG (CALCARB + D) TAB ONE (20:22)
[2020-08-10] MEDS ORDERED: DOCUSATE SODIUM 100 MG (COLACE) CAP PO ONE (20:22)
[2020-08-10] MEDS ORDERED: polyethylene glycoL POWDER 17 GM (MIRALAX) PACK ONE (20:22)
[2020-08-10] MEDS ORDERED: SENNA W/DOCUSATE (SENOKOT S) TABLET ONE (20:22)
[2020-08-10] MEDS: inSUlin ASPART (NovoLOG) 1 UNIT/0.01 ML (CHARGE PER UNIT) SC SCH (20:24)
[2020-08-10] MEDS: cloNIDine 0.1 MG (CATAPRES) TAB PO SCH (20:28)
[2020-08-10] MEDS: CALCIUM CARB + VIT D 600 MG (CALCARB + D) TAB PO SCH (20:28)
[2020-08-10] MEDS: DOCUSATE SODIUM 100 MG (COLACE) CAP PO SCH (20:41)
[2020-08-10] MEDS: polyethylene glycoL POWDER 17 GM (MIRALAX) PACK PO SCH (20:42)
[2020-08-10] MEDS: SENNA W/DOCUSATE (SENOKOT S) TABLET PO SCH (20:42)
[2020-08-11 05:21] VITALS: BP 158/76
--- NOTE | 2020-08-11 05:34 | PM&R Post Admission Assessment ---
PM&R HP Date of Visit: Aug 11, 2020 Time of Visit: 09:00 History of Present Illness CC: New onset myasthenia gravis s/p plasmaphoresis at [facility] after transferred there 08/01/20 HPI: This is a 60yoWF clinic patient of mine for 16+ years who has a h/o HTN, HLP, DM, RALPH on CPAP and obesity who presents following a confirmed dx of myasthenia gravis at [facility] after I had tried to complete w/u for the past 1 year and patient non-compliant with the plan who received plasmaphoresis 5 rounds with dramatic improvement in her symptoms. Prednisone 20mg maintained for the next 1 month. She is here at [facility] to regain independence in ADL's and fall prevention and mobility. PLOF was independent until 1 month ago when she required 1 person assist to prevent falls. Past Nofmzai-Bjwilv-Gfoxbd Hx Past Med/Social Hx: Reviewed Nursing Past Med/Soc Hx, Reviewed and Corrections made Patient Social History Marrital Status: Employed/Student: employed Alcohol Use: Denies Use Recreational Drug Use: No Smoking Status: Never a Smoker 2nd Hand Smoke Exposure: No Physical Abuse Screen: No Sexual Abuse: No Recent Foreign Travel: No Contact w/other who traveled: No Recent Hopitalizations: No Recent Infectious Disease Expo: No Immunizations Up To Date Tetanus Booster (TDap): Less than 5yrs Pediatric: No Date of Pneumonia Vaccine: Jan 04, 2018 Date of Influenza Vaccine: Aug 14, 2018 Seasonal Allergies Seasonal Allergies: Yes Past Medical History Surgeries: Orthopedic Respiratory: Asthma, Chronic Bronchitis, Pneumonia, Sleep Apnea Currently Using CPAP: Yes Currently Using BIPAP: No Cardiac: Chronic Edema/Swelling, Deep Vein Thrombosis, High Cholesterol, Hypertension Neurological: Neuropathy Myasthenia gravis 07/2020 [facility] 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: No Sexually Transmitted Disease: No Menopausal Genitourinary: Bladder Infection Musculoskeletal: Arthritis, Rheumatoid Arthritis Endocrine: Hypothyroidsim, Diabetes, Non-Insulin dep HEENT: Double Vision Loss of Vision: Denies Hearing Impairment: Denies History of Blood Disorders: No Adverse Reaction to Blood [place]: No Family History Alcoholism G8 BROTHER G8 SISTER Alzheimer's disease 19 MOTHER Arthritis 19 FATHER Asthma G8 SISTER Cardiovascular disease 19 FATHER Cataracts 19 FATHER Coronary thrombosis 19 FATHER Deafness or hearing loss SON Diabetes mellitus 19 FATHER G8 SISTER G8 SISTER Drug abuse G8 SISTER Hypertension 19 FATHER G8 SISTER G8 SISTER Kidney disease 19 FATHER Respiratory disorder G8 SISTER G8 SISTER Seizure disorder SON Severe allergy SON Heart Disease, Diabetes, Hypertension PM&R Allergy/Meds/Data Review Allergies Coded Allergies: adhesive tape (Verified Allergy, Intermediate, 02/21/20) BLISTERS AND RAW SKIN amlodipine (Verified Allergy, Unknown, 02/22/13) erythromycin base (Verified Allergy, Unknown, 02/22/13) Uncoded Allergies: ALMONDS (Adverse Reaction, Mild, 02/22/20) SHE HAS PAIN ALL OVER WHEN SHE EATS THEM Home Medications Scheduled Atorvastatin Calcium (Atorvastatin Calcium), 20 MG PO DAILY, (Reported) Azithromycin (Zithromax Tri-Raul), 500 MG PO DAILY Cetirizine HCl (Zyrtec), 10 MG PO BID, (Reported) Cholecalciferol (Vitamin D3) (Vitamin D3), 25 MCG PO DAILY, (Reported) Clonidine HCl (Clonidine HCl), 0.1 MG PO BID, (Reported) Fish Oil/Dha/Epa (Fish Oil 1,200 mg Fish Oil), 1 EACH PO DAILY, (Reported) Fluticasone Propionate (Fluticasone Propionate), 1 SPRAYS NS DAILY, (Reported) Fluticasone/Vilanterol (Breo Ellipta 200-25 Mcg INH), 1 PUFF INH DAILY, (Reported) Levothyroxine Sodium (Levothyroxine Sodium), 50 MCG PO DAILY, (Reported) Montelukast Sodium (Montelukast Sodium), 10 MG PO DAILY, (Reported) Prednisone (Prednisone), 10 MG PO DAILY Tiotropium Crandall (Spiriva Respimat 1.25MCG/ACTUATION), 2 PUFF INH DAILY, (Reported) Triamterene/Hydrochlorothiazid (Triamterene-Hctz 37.5-25 mg Cp), 1 CAP PO DAILY, (Reported) Scheduled PRN Acetaminophen/Diphenhydramine (Tylenol Pm Ex-Strength Caplet), 2 EACH PO HS PRN for SLEEP, (Reported) Albuterol Sulfate (Proair Hfa), 2 PUFF INH Q4H PRN for SHORTNESS OF BREATH, (Reported) Guaifenesin (Mucinex), 600 MG PO Q12H PRN for CONGESTION, (Reported) Ipratropium/Albuterol Sulfate (Iprat-Albut 0.5-3(2.5) mg/3 ml), 3 ML IH QID PRN for SHORTNESS OF BREATH, (Reported) Current Medications Current Medications Reviewed Laboratory Data Laboratory Tests 08/10/20 20:16: Glucometer 178H Review of Systems Constitutional: see HPI, malaise, weakness EENTM: blurred vision, double vision Respiratory: no symptoms reported Cardiovascular: no symptoms reported Gastrointestinal: no symptoms reported Genitourinary: no symptoms reported Musculoskeletal: joint pain Skin: no symptoms reported Psychiatric/Neurological: Anxiety, Depressed All Other Systems Reviewed Negative Unless Noted: Yes Physical Exam Physical Exam Vital Signs Vital Signs - First Documented 08/10/20 08/10/20 17:57 18:20 Temp 36.4 Pulse 87 Resp 22 B/P (MAP) 138/65 (89) Pulse Ox 94 O2 Delivery Room Air Capillary Refill : Less Than 3 Seconds Height, Weight, BMI Height: 5'6.00" Weight: 297lbs. 0.0oz. 134.367698ub; 49.67 BMI Method:Stated General Appearance: No Apparent Distress, WD/WN, Chronically ill, Obese Eyes: Bilateral Eye Normal Inspection, Bilateral Eye PERRL HEENT: PERRL/EOMI, Normal ENT Inspection, Pharynx Normal, Other (no ptosis or facial droop) Neck: Full Range of Motion, Normal Inspection, Non Tender, Supple, Carotid Bruit Respiratory: Chest Non Tender, Lungs Clear, Normal Breath Sounds, No Accessory Muscle Use, No Respiratory Distress Cardiovascular: Regular Rate, Rhythm, No Edema, No Gallop, No JVD, No Murmur, Normal Peripheral Pulses Gastrointestinal: Normal Bowel Sounds, No Organomegaly, No Pulsatile Mass, Non Tender, Soft Back: Normal Inspection, No CVA Tenderness, No Vertebral Tenderness Extremity: Normal Capillary Refill, Normal Inspection, Normal Range of Motion, Non Tender, No Calf Tenderness, No Pedal Edema Neurologic/Psychiatric: Alert, Oriented x3, No Motor/Sensory Deficits, Normal 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, 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 as 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, Depressed Affect, EOM Palsy (resolved since last assessed), Facial Droop (resolved), Motor Weakness (generalized 4/5 weakness) Skin: Normal Color, Warm/Dry Lymphatic: No Adenopathy PM&R Medical Assessment & Plan REHAB/MEDICAL ASSESSMENT AND PLAN: REHAB IMPAIRMENT GROUP: Myasthenia gravis with rheumatoid arthritis ETIOLOGIC DIAGNOSIS: Myasthenia gravis with rheumatoid arthritis The comorbidities that impact the patients function and/or functional outcome by: morbid obesity, RALPH, Asthma, RA, chronic pain, poor coping, non-compliance REHAB PLAN: The patient is being admitted to our comprehensive inpatient rehabilitation f acility and can tolerate the intensity of service consisting of at least: 180 minutes of therapy a day, 5 out of 7 days a week Rehab treatment will consist of: PT OT will focus on regaining strength and mobility and increase independence in ADL's along with other modalities to return home to live independently and return to work The patient/family has a good understanding of our discharge process and will benefit from an interdisciplinary inpatient rehabilitation program. The patient has potential to make improvement and is in need of at least two of the following multidisciplinary therapies including but not limited to physical, occupational, speech, and prosthetics and orthotics. Additionally the patient will need services from respiratory, nutritional services, wound care, psychology, etc. (Customize this to each patient). Given the patients complex condition and risk of further medical complications, rehabilitation services cannot be safely or effectively provided at a lower level of care such as a jail facility. BARRIERS TO DISCHARGE: Obesity and poor coping ESTIMATED LOS: 7 days DISPOSITION: Home RELEVANT CHANGES SINCE PREADMISSION SCREENING: I have compared the patients medical and functional status at the time of the preadmission screening and there are: no changes PROGNOSIS: Good REHABILITATION GOALS: 1. PT OT will focus on regaining strength and mobility and increase independence in ADL's along with other modalities to return home to live independently and return to work All the above goals were reviewed with the patient and he/she is in agreement. By signing this document, I acknowledge that I have personally performed a full physical examination on this patient within 24 hours of admission to this inpatient rehabilitation facility and have determined the patient to be able to tolerate the above course of treatment at an intensive level for a reasonable period of time. I will be completing a detailed individualized Plan of Care for this patient by day #4 of the patients stay based upon the Preadmission Screen, the Post-Admission Evaluation, and the therapy evaluations. Admission Dx/Comorbidities: (1) Myasthenia gravis ICD Codes: G70.00 - Myasthenia gravis without (acute) exacerbation (2) Hypertension Status: Chronic ICD Codes: I10 - Hypertension (3) Hypothyroidism Status: Chronic ICD Codes: E03.9 - Hypothyroidism, unspecified (4) Diabetes mellitus Status: Chronic ICD Codes: E11.9 - Diabetes mellitus (5) Rheumatoid arthritis Status: Chronic ICD Codes: M06.9 - Rheumatoid arthritis, unspecified (6) Asthma ICD Codes: J45.909 - Unspecified asthma, uncomplicated (7) Vision disturbance Status: Acute ICD Codes: H53.9 - Unspecified visual disturbance (8) Dysphagia Status: Acute ICD Codes: R13.10 - Dysphagia, unspecified (9) Dysarthria Status: Acute ICD Codes: R47.1 - Dysarthria and anarthria (10) Diplopia Status: Acute ICD Codes: H53.2 - Diplopia (11) Difficulty swallowing Status: Acute ICD Codes: R13.10 - Dysphagia, unspecified (12) Anxiety Status: Acute ICD Codes: F41.9 - Anxiety disorder, unspecified Assessment/Plan Assessment and Plan Assess & Plan/Chief Complaint Assessment: Myasthenia gravis Rheumatoid arthritis HTN HLP Asthma Obesity RALPH on CPAP Allergies DM Vision loss with diplopia Hypokalemia Plan: Prednisone Monitor sugars IRF protocol Monitor BP FABIENNE ZAMORA DO Aug 11, 2020 05:34
[2020-08-11] MEDS: predniSONE 20 MG TAB PO SCH (05:35)
[2020-08-11] MEDS: LEVOTHYROXINE 50 MCG (LEVOTHROID) TAB PO SCH (05:35)
[2020-08-11 05:57] LABS: BASOPHILS # (AUTO) 0.1 10^3/uL (0.0-0.1); BASOPHILS % (AUTO) 1 % (0-10); EOSINOPHILS # (AUTO) 0.1 10^3/uL (0.0-0.3); EOSINOPHILS % (AUTO) 1 % (0-10); HEMATOCRIT 42 % (35-52); HEMOGLOBIN 13.7 g/dL (11.5-16.0); LYMPHOCYTES % (AUTO) 30 % (12-44); MEAN CORPUSCULAR HEMOGLOBIN 30 pg (25-34); MEAN CORPUSCULAR HGB CONC 33 g/dL (32-36); MEAN CORPUSCULAR VOLUME 91 fL (80-99); MEAN PLATELET VOLUME 10.7 fL (9.0-12.2); MONOCYTES # (AUTO) 0.9 10^3/uL (0.0-1.0); MONOCYTES % (AUTO) 7 % (0-12); NEUTROPHILS # (AUTO) 7.8 10^3/uL (1.8-7.8); NEUTROPHILS % (AUTO) 59 % (42-75); PLATELET COUNT 178 10^3/uL (130-400); WHITE BLOOD COUNT 13.2 10^3/uL (4.3-11.0)
[2020-08-11 06:25] LABS: ALANINE AMINOTRANSFERASE 15 U/L (0-55); ALBUMIN 4.4 GM/DL (3.2-4.5); ALKALINE PHOSPHATASE 27 U/L (40-136); BILIRUBIN,TOTAL 0.9 MG/DL (0.1-1.0); BUN/CREATININE RATIO 18; CALCIUM 9.2 MG/DL (8.5-10.1); CARBON DIOXIDE 21 MMOL/L (21-32); CHLORIDE 106 MMOL/L (98-107); GFR ESTIMATED > 60; GLUCOSE 140 MG/DL (70-105); POTASSIUM 3.5 MMOL/L (3.6-5.0); SODIUM 138 MMOL/L (135-145); TOTAL PROTEIN 5.5 GM/DL (6.4-8.2)
[2020-08-11] MEDS: inSUlin ASPART (NovoLOG) 1 UNIT/0.01 ML (CHARGE PER UNIT) SC SCH ×4 (06:36→20:03)
[2020-08-11] MEDS ORDERED: FLU QUADRIvalent (3YOA+) 60 mcg/0.5 ml 2020-21 (AFLURIA) IM ONE (07:15)
[2020-08-11] MEDS ORDERED: ENOXAPARIN 60 MG/0.6 ML (LOVENOX) SYR SC SCH (08:00)
[2020-08-11] MEDS: cloNIDine 0.1 MG (CATAPRES) TAB PO SCH ×2 (08:12→21:08)
[2020-08-11] MEDS: TRIAMTERENE/HCTZ 75-50 (MAXZIDE,DYAZIDE) TABLET PO SCH (08:12)
[2020-08-11] MEDS: OMEGA 3 (FISH OIL) 1000 MG CAP PO SCH (08:12)
[2020-08-11] MEDS: PANTOPRAZOLE 40 MG (PROTONIX) TAB PO SCH (08:13)
[2020-08-11] MEDS: SENNA W/DOCUSATE (SENOKOT S) TABLET PO SCH ×2 (08:14→21:09)
[2020-08-11] MEDS: polyethylene glycoL POWDER 17 GM (MIRALAX) PACK PO SCH ×2 (08:14→21:15)
[2020-08-11] MEDS: CALCIUM CARB + VIT D 600 MG (CALCARB + D) TAB PO SCH ×2 (08:14→21:04)
[2020-08-11] MEDS: DOCUSATE SODIUM 100 MG (COLACE) CAP PO SCH ×2 (08:14→21:08)
[2020-08-11] MEDS: FLUTICASONE NASAL SPRAY (FLONASE) 16 GM BTL NS SCH (08:16)
[2020-08-11 08:17] VITALS: BP 133/61
[2020-08-11] MEDS ORDERED: VITAMIN D3 125 MCG (5,000 UNITS) CAPSULE PO SCH (09:00)
--- NOTE | 2020-08-11 09:46 | Occupational Therapy Eval ---
OT Evaluation-General/PLF Medical Diagnosis Admission Date Aug 10, 2020 at 17:08 Medical Diagnosis: Myasthenia Gravis with RA Onset Date: Aug 01, 2020 Therapy Diagnosis Therapy Diagnosis: Weakness Height/Weight Height (Feet): 5 Height (Inches): 6.00 Weight (Pounds): 297 Weight (Ounces): 0.0 Precautions Precautions/Isolations: Fall Prevention, Standard Precautions Weight Bear Status Weight Bearing Restriction: Weight Bearing/Tolerated Referral Physician: Dr. Jimenez Referral Reason: Activity Tolerance, Self Care, Evaluation/Treatment, Strengthening/ROM Medical History Pertinent Medical History: DM, HTN, Neuropathy Additional Medical History Chronic Bronchitis, DVT, vision loss, breast lumpectomy Current History Pt. states that over the last year, she has had different issues, in which she would have vision loss or become weak, and wasn't sure what was happening. Approximately 2 weeks ago, pt. transferred to due to new Myasthenia Gravis diagnosis. Pt. treated for that, and came to this facility to increase overall strength. Reviewed History: Yes Social History Home: Single Level Current Living Status: Spouse (and two grown sons) Entry Into Home: Stairs Without Railing Steps Into Home: 4 ADL-Prior Level of Function SCALE: Activities may be completed with or without assistive devices. 5-Lepqeriqiw-iqoycep completes the activity by him/herself with no assistance from a helper. 5-Set-up or Clean-up Assistance-helper sets up or cleans up; patient completes activity. Stanton assists only prior to or following the activity. 4-Supervision or Touching Assistance-helper provides verbal cues and/or touching/steadying and/or contact guard assistance as patient completes activity. Assistance may be provided throughout the activity or intermittently. 3-Partial/Moderate Assistance-helper does LESS THAN HALF the effort. Stanton lifts, holds or supports trunk or limbs, but provides less than half the effort. 2-Substantial/Maximal Assistance-helper does MORE THAN HALF the effort. Stanton lifts or holds trunk or limbs and provides more than half the effort. 0-Cgdltcedk-fcsopb does ALL the effort. Patient does none of the effort to complete the activity. Or, the assistance of 2 or more helpers is required for the patient to complete the activity. If activity was not attempted, code reason: 7-Patient Refused. 9-Not Applicable-not attempted and the patient did not perform the activity before the current illness, exacerbation or injury. 10-Not Attempted due to Environmental Limitations-(lack of equipment, weather restraints, etc.). 88-Not Attempted due to Medical Conditions or Safety Concerns. ADL PLOF Comments Pt. was independent with daily tasks prior to this hospitalization. She does not use a walker. Just prior to having to go to , pt. was using hand held assistance from family to go around house. Self Care: Independent Functional Cognition: Independent DME/Equipment: Grab Bars, Tub/Shower DME/Equipment Comments Pt. states that her spouse has a walker that he used recently, but that she can use it if needed. 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 Appearance Pt. up in chair. Agrees to work with OT. Mental Status/Objective Patient Orientation: Person, Place, Time, Situation Current Glasses/Contacts: Yes Hand Dominance: Right Upper Extremity ROM WFL Upper Extremity Strength WFL ADL-Treatment Eating (QC): 6 (Independent per pt.) Oral Hygiene (QC): 4 (SBA in bathroom already this morning per pt.) Shower/Bathe Self (QC): 4 (SBA after set up with sponge bath. Pt. declines showering stating that she is "just not ready yet.") Upper Body Dressing (QC): 5 Lower Body Dressing (QC): 4 On/Off Footwear (QC): 4 Toileting Hygiene (QC): 4 Other Treatments Pt. completed ADLs in chair in room. After this, ambulated with CGA and use of walker to therapy gym. Tolerated 10 minutes on arm bike x min resistance, with one rest break in between. Pt. encouraged to slow down and take her time. Pt. also encouraged to use her walker, as she tends to walk off without it. Pt. ambulated back to room and transferred to chair in room. All needs met. 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 2=Patient will verbalize/demonstrate understanding of assistive devices/modifications for ADL. 3=Patient will improve strength/tolerance for activity to enable patient to perform ADL's. OT Education/Plan Problem List/Assessment Assessment: Decreased Activ Tolerance, Impaired Funct Balance, Impaired I ADL's, Impaired Self-Care Skills Discharge Recommendations Plan/Recommendations: Continue POC Therapy Discharge Recommendati: Home & Family Equpiment Recommendations-D/C: Extended Bath Bench Treatment Plan/Plan of Care Treatment,Training & Education: Yes Patient would benefit from OT for education, treatment and training to promote independence in ADL's, mobility, safety and/or upper extremity function for ADL's. Plan of Care: ADL Retraining, Functional Mobility, UE Funct Exercise/Act Treatment Duration: Aug 25, 2020 Frequency: At least 5 of 7 days/Wk (IRF) Estimated Hrs Per Day: 1.5 hours per day Agreement: Yes Rehab Potential: Good Time/GCodes Start Time: 08:25 Stop Time: 09:40 Total Time Billed (hr/min): 75 Billed Treatment Time 1, EVM x 15minutes, ADL x 45minutes, Ex x 15minutes LM ZAYAS OT Aug 11, 2020 09:46
[2020-08-11] MEDS ORDERED: KCL 10 MEQ TAB (MICRO K) PO ONE (10:30)
[2020-08-11] MEDS: UMECLIDINIUM BROMIDE (INCRUSE ELLIPTA) 7'S IH SCH (11:07)
[2020-08-11] MEDS: ADVAIR HFA 115/21 MCG INHALER 8 GM IH SCH (11:07)
--- NOTE | 2020-08-11 11:55 | Physical Therapy Evaluation ---
PT Evaluation-General Medical Diagnosis Admission Date Aug 10, 2020 at 17:08 Medical Diagnosis: Myasthenia Gravis with RA Onset Date: Aug 01, 2020 Therapy Diagnosis Therapy Diagnosis: Impaired mobility and strength Height/Weight Height (Feet): 5 Height (Inches): 6.00 Weight (Pounds): 297 Weight (Ounces): 0.0 Precautions Precautions/Isolations: Fall Prevention, Standard Precautions Weight Bear Status Full Weight Bearing Full Weight Bearing Referral Physician: Dr. Jimenez Reason for Referral: Evaluation/Treatment Medical History Pertinent Medical History: DM, HTN, Neuropathy Additional Medical History Chronic Bronchitis, DVT, vision loss, breast lumpectomy Reviewed History: Yes Social History Home: Single Level Current Living Status: Spouse ( and two sons) Entry Into Home: Stairs Without Railing PT Steps Into Home: 4 Prior Prior Level of Function SCALE: Activities may be completed with or without assistive devices. 6-Vckryttdgw-lftuvli completes the activity by him/herself with no assistance from a helper. 5-Set-up or Clean-up Assistance-helper sets up or cleans up; patient completes activity. [place] assists only prior to or following the activity. 4-Supervision or Touching Assistance-helper provides verbal cues and/or touching/steadying and/or contact guard assistance as patient completes activity. Assistance may be provided throughout the activity or intermittently. 3-Partial/Moderate Assistance-helper does LESS THAN HALF the effort. [place] lifts, holds or supports trunk or limbs, but provides less than half the effort. 2-Substantial/Maximal Assistance-helper does MORE THAN HALF the effort. [place] lifts or holds trunk or limbs and provides more than half the effort. 9-Cgdoxiyoj-ccbfmy does ALL the effort. Patient does none of the effort to complete the activity. Or, the assistance of 2 or more helpers is required for the patient to complete the activity. If activity was not attempted, code reason: 7-Patient Refused. 9-Not Applicable-not attempted and the patient did not perform the activity before the current illness, exacerbation or injury. 10-Not Attempted due to Environmental Limitations-(lack of equipment, weather restraints, etc.). 88-Not Attempted due to Medical Conditions or Safety Concerns. Bed Mobility: 6 Transfers (B,C,W/C): 6 Gait: 6 Stairs: 3 Wheelchair Mobility: 9 Indoor Mobility (Ambulation): Independent Stairs: Needed Some Help Prior Devices Use: None, Walker Pt owns walker that she does not utilize according to son. Pt reports she needed assistance getting around (specifically stairs) from her or sons. Pt reports she was able to walk independently at work but relied on lopez/shelving to steady self. PT Evaluation-Current Subjective Pt presents sitting upright in recliner. Pt agrees to PT. Pt reports no pain. Pt/Family Goals Return home and return to work at [employer]. Objective Patient Orientation: Person, Place, Time, Eyes Open, Situation ROM/Strength ROM Lower Extremities WFL Strength Lower Extremities R Hip Flexion 4/5 L Hip Flexion 4+/5 R Knee Ext 4/5 L Knee Ext 5/5 R Knee Flex 5/5 R Knee Flex 5/5 Sensory Hearing: Functional Hand Dominance: Right Sensation Right Lower Extremit: Intact Sensation Left Lower Extremity: Intact Sensation Lower Extremities BLE sensation intact to light touch L2-S2 Transfers Roll Left to Right (QC): 6 Sit to Lying (QC): 6 Lying to Sitting/Side of Bed(Q: 6 Sit to Stand (QC): 4 Chair/Kqk-ad-Mxiro Xfer(QC): 4 Toilet Transfer (QC): 4 Car Transfer (QC): 4 Gait Does the Patient Walk?: Yes Mode of Locomotion: Walk Anticipated Mode of Locomotion: Walk Walk 10 feet (QC): 4 Walk 50 ft with 2 Turns(QC): 4 Walk 150 ft (QC): 4 Walking 10ft/uneven surface-QC: 4 Distance: 150'x2 Gait Assistive Device: FWW Comments/Gait Description L sided trendelenburg. Slow, slightly unsteady ambulation Wheelchair Training Does the Pt Use a Wheelchair?: No Wheel 50 ft with 2 turns (QC): 9 Wheel 150 ft (QC): 9 Stairs #of Steps: 4 1 Step (curb) (QC): 4 4 Steps (QC): 4 12 Steps (QC): 88 Pt utilized B railing and complete stairs with reciprocal pattern, CGA Balance Sitting Static: Normal Sitting Dynamic: Normal Standing Static: Good Standing Dynamic: Good Picking up an Object (QC): 3 Treatment Nustep level 4 x15min Seated marches, LAQ, ankle pumps B x20 Assessment/Needs Pt is limited in proximal muscle strength. Pt demonstrates impaired stability with gait; trendelenburg gait on L contributes to this. Pt is well motivated to work hard in therapy. Rehab Potential: Fair PT Short Term Goals Short Term Goals Time Frame: Aug 18, 2020 Sit to stand: 5 Chair/zte-eq-wxzid transfer: 5 Car transfer: 5 Walk 10 feet: 5 Walk 50 feet with two turns: 5 Walk 150 feet: 5 Picking up objects: 4 PT Curing Supervisor Goals Curing Supervisor Goals PT Correction Goals Time Frame: Sep 01, 2020 Roll Left & Right (QC): 6 Sit to Lying (QC): 6 Lying-Sitting on Side/Bed(QC): 6 Sit to Stand (QC): 6 Chair/Fwt-bs-Mpmnv Xfer(QC): 6 Toilet Transfer (QC): 6 Car Transfer (QC): 6 Does the Patient Walk: Yes Walk 10 feet (QC): 6 Walk 50ft with 2 Turns (QC): 6 Walk 150 ft (QC): 6 Walking 10ft on Uneven Surface: 6 1 Step (curb) (QC): 6 4 Steps (QC): 6 12 Steps (QC): 4 Picking up an Object (QC): 4 Does the Pt use WC or Scooter?: No Wheel 50 feet with 2 turns (QC: 9 Wheel 150 feet: 9 PT Plan Problem List Problem List: Activity Tolerance, Functional Strength, Safety, Balance, Gait, Transfer, Bed Mobility, ROM Treatment/Plan Treatment Plan: Continue Plan of Care Treatment Plan: Bed Mobility, Education, Functional Activity Lenin, Functional Strength, Group Therapy, Gait, Safety, Therapeutic Exercise, Transfers Treatment Duration: Sep 01, 2020 Frequency: At least 5 of 7 days/Wk (IRF) Estimated Hrs Per Day: 1.5 hours per day Patient and/or Family Agrees t: Yes Safety Risks/Education Patient Education: Gait Training, Transfer Techniques, Steps, Correct Positioning, Safety Issues Teaching Recipient: Patient Teaching Methods: Demonstration, Discussion Response to Teaching: Reinforcement Needed Discharge Recommendations Plan Pt will strengthen LE, improve bed mobility, functional activities, participate in gait training and be educated on safe mobility. Therapy Discharge Recommendati: Home & Family Time/GCodes Time In: 1100 Time Out: 1200 Total Billed Treatment Time: 60 Total Billed Treatment 1 visit EVM 30' EX 30' ROBIN MOTA PT Aug 11, 2020 11:55
--- NOTE | 2020-08-11 14:43 | Physical Therapy Daily Note ---
PT Daily Note-Current Subjective Pt presents upright in recliner. Pt agrees to PT. Pt has no current complaints of pain. Appearance Pt remains sitting upright in recliner with access to tray, call button, all needs being met and son is present in room. Mental Status Patient Orientation: Person, Place, Time, Eyes Open, Situation, Normal For Age Transfers SCALE: Activities may be completed with or without assistive devices. 5-Lwksmkjwih-fspljqz completes the activity by him/herself with no assistance from a helper. 5-Set-up or Clean-up Assistance-helper sets up or cleans up; patient completes activity. [place] assists only prior to or following the activity. 4-Supervision or Touching Assistance-helper provides verbal cues and/or touching/steadying and/or contact guard assistance as patient completes activity. Assistance may be provided throughout the activity or intermittently. 3-Partial/Moderate Assistance-helper does LESS THAN HALF the effort. [place] lifts, holds or supports trunk or limbs, but provides less than half the effort. 2-Substantial/Maximal Assistance-helper does MORE THAN HALF the effort. [place] lifts or holds trunk or limbs and provides more than half the effort. 6-Lzkgueupc-obgrob does ALL the effort. Patient does none of the effort to com plete the activity. Or, the assistance of 2 or more helpers is required for the patient to complete the activity. If activity was not attempted, code reason: 7-Patient Refused. 9-Not Applicable-not attempted and the patient did not perform the activity before the current illness, exacerbation or injury. 10-Not Attempted due to Environmental Limitations-(lack of equipment, weather restraints, etc.). 88-Not Attempted due to Medical Conditions or Safety Concerns. Weight Bearing Full Weight Bearing Full Weight Bearing Exercises Seated Therapy Exercises: Ankle pumps, Long arc quads, Hip flexion, Hamstring Curls, Hip abd/add Seated Reps: 40 Seated exercises were completed B 2x20 Treatments LE strengthening Assessment Current Status: Good Progress Pt is motivated to participate in therapy and is able to complete a second set of seated exercises. PT Short Term Goals Short Term Goals Time Frame: Aug 18, 2020 Sit to stand: 5 Chair/zlc-pi-njzjk transfer: 5 Car transfer: 5 Walk 10 feet: 5 Walk 50 feet with two turns: 5 Walk 150 feet: 5 Picking up objects: 4 PT Residential Goals Residential Goals PT Principal Archaeologist Goals Time Frame: Sep 01, 2020 Roll Left & Right (QC): 6 Sit to Lying (QC): 6 Lying-Sitting on Side/Bed(QC): 6 Sit to Stand (QC): 6 Chair/Qwn-kx-Dkfdr Xfer(QC): 6 Toilet Transfer (QC): 6 Car Transfer (QC): 6 Does the Patient Walk: Yes Walk 10 feet (QC): 6 Walk 50ft with 2 Turns (QC): 6 Walk 150 ft (QC): 6 Walking 10ft on Uneven Surface: 6 1 Step (curb) (QC): 6 4 Steps (QC): 6 12 Steps (QC): 4 Picking up an Object (QC): 4 Does the Pt use WC or Scooter?: No Wheel 50 feet with 2 turns (QC: 9 Wheel 150 feet: 9 PT Plan Problem List Problem List: Activity Tolerance, Functional Strength, Safety, Balance, Gait, Transfer, Bed Mobility, ROM, Other Treatment/Plan Treatment Plan: Continue Plan of Care Treatment Plan: Bed Mobility, Education, Functional Activity Lenin, Functional Strength, Group Therapy, Gait, Safety, Therapeutic Exercise, Transfers Treatment Duration: Sep 01, 2020 Frequency: At least 5 of 7 days/Wk (IRF) Estimated Hrs Per Day: 1.5 hours per day Patient and/or Family Agrees t: Yes Safety Risks/Education Patient Education: Correct Positioning, Safety Issues Teaching Recipient: Patient Teaching Methods: Demonstration, Discussion Response to Teaching: Reinforcement Needed Time/GCodes Time In: 1415 Time Out: 1430 Total Billed Treatment Time: 15 Total Billed Treatment 1 visit EX ROBIN MCCORMICK PT Aug 11, 2020 14:43
--- NOTE | 2020-08-11 15:22 | ST Cognitive Linguistic Eval ---
Speech Evaluation-General Medical Diagnosis Myasthenia Gravis with RA Onset Date: Aug 01, 2020 Therapy Diagnosis Therapy Diagnosis: Cognitive-communication Medical History Pertinent Medical History: DM, HTN, Neuropathy Reviewed History: Yes Social History Current Living Status: Spouse ( and two sons) Speech PLF-Current Status Prior Level of Function Patient lived at home with her and grown children. Prior to her illness the patient was working fulltime. Subjective The patient was pleasant and cooperative with the cognitive assessment. Language Eval: Auditory Comprehends Simple Yes/No Ques: Functional Indent/Objects Multiple Gatica: Functional Ident/Pics in Multiple Gatica: Functional Follows 1-Step Commands: Functional Follows Complex Directions: Functional Follows General Conversations: Functional Language Eval: Verbal Language Completes Spontaneous Greeting: Functional Produces Auto, Serial Info: Functional Imitates Simple Words/Phrases: Functional Word Finding: Functional Requests Basic Needs: Functional States Basic Personal Info: Functional Expresses Complex Ideas: Functional Objective Cognitive Domain Attention: WNL Memory: WNL Problem Solving: Functional Executive Functions: WNL Visuospatial Skills: WNL Composite Severity Rating: WNL Clock Drawing Severity Rating: WNL Objective Formal/Standardized Tests [facility] Mental Status ([facility]) Results 28/30, within normal range of function Oral Motor/Speech Production Within Normal Limits Impression The patient is a 60 y/o female who was admitted to the ARU due to illness which resulted in weakness. Initially she reports she had difficulty speaking and swallowing, both have resolved. Patient was given the SLUMS with a score of 28/30 obtained. Patient's score is within the normal range and is not indicative of further services. Speech Patient Assess Expression of Ideas/Wants: Expression (4) Understanding Verbal Content: Understands (4) Brief Interview-Mental Status: Yes Repetition of Three Words: Three (3) Temporal Orientation: Year: Correct (3) Temporal Orientation: Month: Accurate within 5 days(2) Temporal Orientation: Day: Correct (1) Recall : Wear to say "Sock": Yes, no cue required (2) Recall : Color: Yes, no cue required (2) Recall : Bed: Yes,after cueing (1) Memory/Recall Ability: Current season, Location of own room, That he or she is in a hsp/hsp unit Speech-Plan Patient/Family Goals Patient/Family Goals: Patient plans on returning to her home where she lives with her family. Treatment Plan Speech Therapy Treatment Plan: Discontinue ST Treatment Duration: Aug 11, 2020 Frequency: 1 time per week Estimated Hrs Per Day: .5 hour per day Rehab Potential: Fair Barriers to Learning: None identified Pt/Family Agrees to Plan: Yes Safety Risks/Education Teaching Recipient: Patient Teaching Methods: Discussion Response to Teaching: Verbalize Understanding Education Topics Provided: Safety within her room and communication of wants/needs Time Speech Therapy Time In: 09:00 Speech Therapy Time Out: 09:30 Total Billed Time: 30 Billed Treatment Time 1, AMBER Godfrey Aug 11, 2020 15:22
[2020-08-11 15:58] VITALS: BP 145/61
[2020-08-11] MEDS: ENOXAPARIN 40 MG/0.4 ML (LOVENOX) SYR SC SCH (21:05)
[2020-08-12] MEDS: ADVAIR HFA 115/21 MCG INHALER 8 GM IH SCH ×2 (00:48→07:42)
--- NOTE | 2020-08-12 05:51 | Individualized Plan of Care ---
Individualized Plan of Care Rehab Nursing IPOC Order Admission Date Aug 10, 2020 at 17:08 Current Orders Orders Admission Order(Inpt,Obs,Sdc) (08/10/20 12:45) Vital Signs: Per Unit Policy ( 08,16,00 (08/10/20 12:45) Dangelo Mason 09,21 (08/10/20 12:45) Sequential Compression Device Q4H (08/10/20 12:45) Bus System Operator-Inpt Rehab Con (08/10/20 12:45) Rehab Nursing Orders-Ipoc (08/10/20 12:45) Physical Therapy Rehab Orders (08/10/20 12:45) Occupational Therapy Rehab Ord (08/10/20 12:45) Speech Therapy Rehab Orders (08/10/20 12:45) Cbc With Automated Diff (08/11/20 06:00) Comprehensive Metabolic Panel (08/11/20 06:00) Intake & Output 06,14,22 (08/10/20 12:45) Precautions (Aru) (08/10/20 12:45) Rehab-Intensity Of Therapy (08/10/20 12:45) Cho 60g/M 3snack (16-2000 Carlos) (08/10/20 Lunch) Initiate Admission Nursing Pro .admission (08/10/20 12:45) Acetaminophen Tablet (Tylenol Tablet) (08/10/20 12:45) Alprazolam Tablet (Xanax Tablet) (08/10/20 12:45) Calcium Carbonate Chew Tablet (Antacid C (08/10/20 12:45) Diphenhydramine Tablet (Benadryl Tablet) (08/10/20 12:45) Docusate Sodium Capsule (Colace Capsule) (08/10/20 21:00) Docusate Sodium Capsule (Colace Capsule) (08/10/20 12:45) Bisacodyl Suppository (Dulcolax Supposit (08/10/20 12:45) Lactulose Oral Solution (Enulose Oral So (08/10/20 12:45) Na Phos/Na Biphos Enema (Fleet Enema Erick (08/10/20 12:45) Guaifenesin/Codeine Syrup (Robitussin Ac (08/10/20 12:45) Loperamide Tablet (Imodium Tablet) (08/10/20 12:45) Enoxaparin Injection (Lovenox Injection) (08/10/20 12:45) Melatonin Tablet (Melatonin Tablet) (08/10/20 12:45) Polyethylene Glycol Powder Pkt (Miralax (08/10/20 21:00) Ondansetron Oral Dissolve Tab (Zofran (08/10/20 12:45) Senna S Tablet (Senokot S Tablet) (08/10/20 21:00) Code/Resuscitation (08/10/20 12:45) Initiate Admission Nursing Pro .admission (08/10/20 12:45) Calcium Carbonate W/Vitamin D3 (Calcarb (08/10/20 21:00) Pantoprazole Tablet (Protonix Tablet) (08/11/20 09:00) Prednisone Tablet (Deltasone Tablet) (08/11/20 07:00) Atorvastatin Tablet (Lipitor Tablet) (08/10/20 21:00) Cholecalciferol Capsule/Tablet (Vitamin (08/11/20 09:00) Clonidine Tablet (Catapres Tablet) (08/10/20 21:00) Ovid 3 Capsule (Fish Oil Capsule) (08/11/20 09:00) Fluticasone Nasal [place] (Flonase Nasal S (08/11/20 09:00) Fluticasone/Salmeterol 115/21 (Advair Hf (08/10/20 21:00) Levothyroxine Tablet (Synthroid Tablet) (08/11/20 06:30) Mdi Treatment (08/10/20 12:45) Triamterene/Hctz 75-50 Tablet (Maxzide 7 (08/11/20 09:00) Hydrocodone/Apap 5/325 Tablet (Lortab 5 (08/10/20 12:45) Ambulate 08,12,20 (08/10/20 17:34) Sequential Compression Device Q4H (08/10/20 17:34) Dvt/Vte Risk - Notifiy Physici Q4H (08/10/20 17:34) Accucheck Achs ACHS (08/10/20 18:40) Insulin Aspart (Novolog) (Novolog (Charg (08/10/20 21:00) Docusate Sodium Capsule (Colace Capsule) (08/10/20 20:22) Polyethylene Glycol Powder Pkt (Miralax (08/10/20 20:22) Senna S Tablet (Senokot S Tablet) (08/10/20 20:22) Clonidine Tablet (Catapres Tablet) (08/10/20 20:22) Umeclidinium [place] Inhaler (Incruse El (08/11/20 08:00) Calcium Carbonate W/Vitamin D3 (Calcarb (08/10/20 20:22) Enoxaparin Injection (Lovenox Injection) (08/11/20 08:00) Atorvastatin Tablet (Lipitor Tablet) (08/10/20 20:22) Flu Quad (3yoa+) 2019- (Afluria Quad 2 (08/11/20 07:15) Potassium Chloride (Tablet) (Klor Con Ta (08/11/20 10:30) Potassium Chloride (Tablet) (Klor Con Ta (08/12/20 07:00) Enoxaparin Injection (Lovenox Injection) (08/11/20 21:00) Patient Visit (08/11/20 ) Speech Sound Lang Comp (08/11/20 ) Patient Visit (08/11/20 ) Pt Eval Moderate Complexity (08/11/20 ) Exercise Therap, Ea 15 Min (08/11/20 ) Triamcinolone 0.1% Cream 15 Gm (Kenalog (08/12/20 21:00) Albuterol Pre-Mix Nebs (Rt) (Proventil (08/12/20 09:30) Citalopram Tablet (Celexa Tablet) (08/13/20 09:00) Montelukast Tablet (Singulair Tablet) (08/13/20 09:00) (Nf) Cholecalciferol (Vitamin D3) (Vitam (08/13/20 09:00) Cholecalciferol Capsule/Tablet (Vitamin (08/13/20 09:00) Patient Visit (08/12/20 ) Gait Training, Ea 15 Min (08/12/20 ) Exercise Therap, Ea 15 Min (08/12/20 ) Functional Activities, Ea 15 (08/12/20 ) Rehab Nursing Orders: Ongoing Assess. of Cognitive Status, Ongoing Assess. of Function Status, Bladder Management, Bladder Scan, Bladder Training, Bowel Management, Bowel Training, Disease Management & Educaiton, DVT Prophylaxis, Fall Prevention, Fluid/Electrolyte/Nutrition Mgmt, Infection Prevention, Medication Management & Education, Management of Risks & Complications, Nutrition Management, Pain Management, Patient/Family Support, Safety Management, Swallow Precautions Intensity of Therapy to be met Patient to be seen: Min.3h per day/5 of 7d PT IPOC Problem List: Activity Tolerance, Functional Strength, Safety, Balance, Gait, Transfer, Bed Mobility, ROM, Other Treatment Plan: Continue Plan of Care Bed Mobility, Education, Functional Activity Lenin, Functional Strength, Group Therapy, Gait, Safety, Therapeutic Exercise, Transfers Treatment Duration: Sep 01, 2020 Frequency: At least 5 of 7 days/Wk (IRF) Estimated Hrs Per Day: 1.5 hours per day OT IPOC Problems: Decreased Activ Tolerance, Impaired Funct Balance, Impaired I ADL's, Impaired Self-Care Skills OT Treatment, Training and Edu: Yes Plan of Care: ADL Retraining, Functional Mobility, UE Funct Exercise/Act Treatment Duration: Aug 25, 2020 Frequency: At least 5 of 7 days/Wk (IRF) Estimated Hrs Per Day: 1.[address] IPOC Speech Therapy Treatment Plan: Discontinue ST Treatment Duration: Aug 11, 2020 Frequency: 1 time per week Estimated Hrs Per Day: .5 hour per day Bus System Operator/Case Mgmt Bus System Operator/Case Managemen: Discharge Planning Dietitian/Accounting Manager Controller Dietitian/Accounting Manager Controller to monitor nutritional status and make changes and/or recommendations as needed and work with speech pathology on dietary upgrades as the occur. Physician IPOC Medical Issues being managed closely and that require the 24 hour availability o f a physician: Recent new diagnosis of MG with increased risk for respiratory failure will need close monitoring for decompensation. Medical Issues: Bowel/Bladder Function, DVT Prophylaxis, Falls Precautions, Fluid/Electrolyte/Nutrition Balance, Infection Protection, Pain Management, Swallowing Precautions Brief Synthesis of Preadmission Screen, Post-Admission Evaluation, and Therapy Evaluations: PT OT will focus on regaining independent ADL's along with new medical management for MG in order to return home. Medical Prognosis: Good Anticipated Length of Stay: 7 days FABIENNE ZAMORA DO Aug 12, 2020 05:51
--- NOTE | 2020-08-12 05:51 | PM&R Progress Note ---
Subjective HPI/CC On Admission Date Seen by Provider: Aug 12, 2020 Time Seen by Provider: 09:00 Subjective/Events-last exam Pt wore her CPAP last night Bowels moved yesterday Flu shot was obtained yesterday Blood sugars somewhat satisfactory even on Prednisone of 20 Already asking to go home Checked meds and labs Conferred with RN Reviewed therapy notes Review of Systems General: Fatigue, Malaise Neurological: Weakness Objective Exam Vital Signs Vital Signs Date Time Temp Pulse Resp B/P (MAP) Pulse Ox O2 Delivery O2 Flow Rate FiO2 08/12/20 20:50 96 Room Air 08/12/20 17:09 36.6 95 20 144/65 (91) Capillary Refill : Less Than 3 Seconds General Appearance: No Apparent Distress, WD/WN, Chronically ill, Obese HEENT: PERRL/EOMI, Normal ENT Inspection, Pharynx Normal, Other (no ptosis or facial droop) Neck: Full Range of Motion, Normal Inspection, Non Tender, Supple, Carotid Bruit Respiratory: Chest Non Tender, Lungs Clear, Normal Breath Sounds, No Accessory Muscle Use, No Respiratory Distress Cardiovascular: Regular Rate, Rhythm, No Edema, No Gallop, No JVD, No Murmur, Normal Peripheral Pulses Gastrointestinal: Normal Bowel Sounds, No Organomegaly, No Pulsatile Mass, Non Tender, Soft Back: Normal Inspection, No CVA Tenderness, No Vertebral Tenderness Extremity: Normal Capillary Refill, Normal Inspection, Normal Range of Motion, Non Tender, No Calf Tenderness, No Pedal Edema Neurologic/Psychiatric: Alert, Oriented x3, No Motor/Sensory Deficits, Normal Mood/Affect, director e learning II-XII Norm as Tested, Depressed Affect, EOM Palsy (resolved since last assessed), Facial Droop (resolved), Motor Weakness (generalized 4/5 weakness) Skin: Normal Color, Warm/Dry Lymphatic: No Adenopathy Results/Procedures Lab Patient resulted labs reviewed. FIM Transfers Therapy Code Descriptions/Definitions Functional [place] Measure: 0=Not Assessed/NA 4=Minimal Assistance 1=Total Assistance 5=Supervision or Setup 2=Maximal Assistance 6=Modified [place] 3=Moderate Assistance 7=Complete IndependenceSCALE: Activities may be completed with or without assistive devices. 0-Ryywdlpazo-ojviuww completes the activity by him/herself with no assistance from a helper. 5-Set-up or Clean-up Assistance-helper sets up or cleans up; patient completes activity. [place] assists only prior to or following the activity. 4-Supervision or Touching Assistance-helper provides verbal cues and/or touching/steadying and/or contact guard assistance as patient completes activity. Assistance may be provided throughout the activity or intermittently. 3-Partial/Moderate Assistance-helper does LESS THAN HALF the effort. [place] lifts, holds or supports trunk or limbs, but provides less than half the effort. 2-Substantial/Maximal Assistance-helper does MORE THAN HALF the effort. Micro lifts or holds trunk or limbs and provides more than half the effort. 6-Fhtztrsqw-kywbed does ALL the effort. Patient does none of the effort to complete the activity. Or, the assistance of 2 or more helpers is required for the patient to complete the activity. If activity was not attempted, code reason: 7-Patient Refused. 9-Not Applicable-not attempted and the patient did not perform the activity before the current illness, exacerbation or injury. 10-Not Attempted due to Environmental Limitations-(lack of equipment, weather restraints, etc.). 88-Not Attempted due to Medical Conditions or Safety Concerns. Roll Left to Right (QC): 6 Sit to Lying (QC): 6 Sit to Stand (QC): 4 Chair/Qdq-ww-Rsbom Xfer(QC): 4 Car Transfer (QC): 4 Gait Training Does the Patient Walk?: Yes Walk 10 feet (QC): 4 Walk 50 ft with 2 Turns(QC): 4 Walk 150 ft (QC): 4 Walking 10ft/uneven surface-QC: 4 Gait Assistive Device: FWW Wheelchair Training Does the Pt Use a Wheelchair?: No Wheel 50 ft with 2 turns (QC): 9 Wheel 150 ft (QC): 9 Stair Training #of Steps: 4 1 Step (curb) (QC): 4 4 Steps (QC): 4 12 Steps (QC): 88 Balance Picking up an Object (QC): 3 ADL-Treatment Eating (QC): 6 (Independent per pt.) Oral Hygiene (QC): 4 (SBA in bathroom already this morning per pt.) Shower/Bathe Self (QC): 4 (SBA after set up with sponge bath. Pt. declines showering stating that she is "just not ready yet.") Upper Body Dressing (QC): 5 Lower Body Dressing (QC): 4 On/Off Footwear (QC): 4 Toileting Hygiene (QC): 4 Assessment/Plan Assessment and Plan Assess & Plan/Chief Complaint Assessment: Myasthenia gravis Rheumatoid arthritis HTN HLP Asthma Obesity RALPH on CPAP Allergies DM Vision loss with diplopia Hypokalemia Plan: Prednisone Monitor sugars IRF protocol Monitor BP 08/12/20: Continue treatment plan Monitor sugar and BP (1) Myasthenia gravis (2) Hypertension Status: Chronic (3) Hypothyroidism Status: Chronic (4) Diabetes mellitus Status: Chronic (5) Rheumatoid arthritis Status: Chronic (6) Asthma (7) Vision disturbance Status: Acute (8) Dysphagia Status: Acute (9) Dysarthria Status: Acute (10) Diplopia Status: Acute (11) Difficulty swallowing Status: Acute (12) Anxiety Status: Acute FABIENNE ZAMORA DO Aug 12, 2020 05:51
[2020-08-12 06:10] VITALS: BP 135/62
[2020-08-12] MEDS: inSUlin ASPART (NovoLOG) 1 UNIT/0.01 ML (CHARGE PER UNIT) SC SCH ×4 (06:10→20:47)
[2020-08-12] MEDS: KCL 10 MEQ TAB (MICRO K) PO SCH (06:20)
[2020-08-12] MEDS: LEVOTHYROXINE 50 MCG (LEVOTHROID) TAB PO SCH (06:20)
[2020-08-12] MEDS: predniSONE 20 MG TAB PO SCH (06:20)
[2020-08-12] MEDS: UMECLIDINIUM BROMIDE (INCRUSE ELLIPTA) 7'S IH SCH (07:42)
[2020-08-12] MEDS ORDERED: PANT40TA52 PO (09:19)
[2020-08-12] MEDS ORDERED: GLUC500T10 PO (09:19)
[2020-08-12] MEDS ORDERED: CALC-676 PO (09:19)
[2020-08-12] MEDS ORDERED: PRD20T PO (09:19)
[2020-08-12] MEDS: OMEGA 3 (FISH OIL) 1000 MG CAP PO SCH (09:22)
[2020-08-12] MEDS: PANTOPRAZOLE 40 MG (PROTONIX) TAB PO SCH (09:22)
[2020-08-12] MEDS: TRIAMTERENE/HCTZ 75-50 (MAXZIDE,DYAZIDE) TABLET PO SCH (09:22)
[2020-08-12] MEDS: CALCIUM CARB + VIT D 600 MG (CALCARB + D) TAB PO SCH ×2 (09:22→20:46)
[2020-08-12] MEDS: cloNIDine 0.1 MG (CATAPRES) TAB PO SCH ×2 (09:22→20:46)
[2020-08-12] MEDS: ENOXAPARIN 40 MG/0.4 ML (LOVENOX) SYR SC SCH ×2 (09:23→20:47)
[2020-08-12] MEDS: FLUTICASONE NASAL SPRAY (FLONASE) 16 GM BTL NS SCH (09:23)
[2020-08-12] MEDS ORDERED: RT-ALBUTEROL SULF 2.5 MG/3 ML PRE-MIX VIAL INH PRN (09:30)
[2020-08-12] MEDS ORDERED: CITA10TA7 PO (09:40)
[2020-08-12] MEDS: DOCUSATE SODIUM 100 MG (COLACE) CAP PO SCH ×2 (09:49→20:46)
[2020-08-12] MEDS: SENNA W/DOCUSATE (SENOKOT S) TABLET PO SCH ×2 (09:50→20:52)
[2020-08-12] MEDS: polyethylene glycoL POWDER 17 GM (MIRALAX) PACK PO SCH ×2 (09:50→20:52)
--- NOTE | 2020-08-12 10:06 | Occupational Ther Daily Note ---
OT Current Status-Daily Note Subjective No pain reported. Appearance Pt. is up in reclining chair when OT enters room. Pt. is agreeable to treatment. Mental Status/Objective Patient Orientation: Person, Place, Time, Situation ADL-Treatment Therapy Code Descriptions/Definitions Functional [place] Measure: 0=Not Assessed/NA 4=Minimal Assistance 1=Total Assistance 5=Supervision or Setup 2=Maximal Assistance 6=Modified [place] 3=Moderate Assistance 7=Complete IndependenceSCALE: Activities may be completed with or without assistive devices. 0-Jlzjkqnzru-crarpau completes the activity by him/herself with no assistance from a helper. 5-Set-up or Clean-up Assistance-helper sets up or cleans up; patient completes activity. [place] assists only prior to or following the activity. 4-Supervision or Touching Assistance-helper provides verbal cues and/or touching/steadying and/or contact guard assistance as patient completes activity. Assistance may be provided throughout the activity or intermittently. 3-Partial/Moderate Assistance-helper does LESS THAN HALF the effort. [place] lifts, holds or supports trunk or limbs, but provides less than half the effort. 2-Substantial/Maximal Assistance-helper does MORE THAN HALF the effort. [place] lifts or holds trunk or limbs and provides more than half the effort. 1-Iifwfrclo-iqoplh does ALL the effort. Patient does none of the effort to complete the activity. Or, the assistance of 2 or more helpers is required for the patient to complete the activity. If activity was not attempted, code reason: 7-Patient Refused. 9-Not Applicable-not attempted and the patient did not perform the activity before the current illness, exacerbation or injury. 10-Not Attempted due to Environmental Limitations-(lack of equipment, weather restraints, etc.). 88-Not Attempted due to Medical Conditions or Safety Concerns. Eating (QC): 6 Oral Hygiene (QC): 6 Shower/Bathe Self (QC): 5 (Set up in shower.) Upper Body Dressing (QC): 5 Lower Body Dressing (QC): 5 On/Off Footwear: 5 Toileting Hygiene (QC): 6 Toilet Transfer (QC): 4 (SBA) Other Treatment OT set pt. up in shower, and pt. able to complete shower and dressing task after set up. Pt. agrees to ambulate to therapy gym and requests not to use the walker. OT does put gait belt on and provides CGA. Noted "limping" type gait. Pt. reports that this is normal baseline, and that she has neuropathy. She is currently wearing slipper socks and gait is more difficult due to the neuropathy. When she has regular shoes on, she is able to ambulate much better. However, she does not have shoes present. Pt. completes 16 minutes on arm bike at mod resistance, to increase overall strength and independence. Tolerated this well with no rest breaks needed. Pt. also completed 5 bilateral UE exercises, x 3 lb. dumbbells, x 15 reps each, in all planes, for continued strength with daily skills. Pt. does require rest breaks and OT is careful so as not to irritate joints from RA. Pt. ambulates back to room with CGA and no device. States that she feels ready to go home soon. All needs are met in room. Education OT Patient Education: Correct positioning, Exercise program, Modified ADL techniques, Progress toward Goal/Update tx plan, Purpose of tx/functional activities, Reviewed precautions, Rehab process, Transfer techniques Teaching Recipient: Patient Teaching Methods: Demonstration, Discussion Response to Teaching: Verbalize Understanding, Return Demonstration OT Chcf Goals Pellet Post Inspector Goals Time Frame: Aug 25, 2020 Eating (QC): 6 Oral Hygiene (QC): 6 Toileting Hygiene (QC): 6 Shower/Bathe Self (QC): 6 Upper Body Dressing (QC): 6 Lower Body Dressing (QC): 6 On/Off Footwear (QC): 6 Additional Goals: 1-Demonstrate ADL Tasks, 2-Verbalize Understanding, 3- ImproveStrength/[place] 1=Demonstrate adherence to instructed precautions during ADL tasks. 2=Patient will verbalize/demonstrate understanding of assistive devices/modifications for ADL. 3=Patient will improve strength/tolerance for activity to enable patient to perform ADL's. OT Education/Plan Problem List/Assessment Assessment: Decreased Activ Tolerance Discharge Recommendations Plan/Recommendations: Continue POC Therapy Discharge Recommendati: Home & Family Treatment Plan/Plan of Care Treatment,Training & Education: Yes Patient would benefit from OT for education, treatment and training to promote independence in ADL's, mobility, safety and/or upper extremity function for ADL's. Plan of Care: ADL Retraining, Functional Mobility, UE Funct Exercise/Act Treatment Duration: Aug 25, 2020 Frequency: At least 5 of 7 days/Wk (IRF) Estimated Hrs Per Day: 1.5 hours per day Agreement: Yes Rehab Potential: Fair Time/GCodes Start Time: 08:30 Stop Time: 09:45 Total Time Billed (hr/min): 75 Billed Treatment Time 1, ADL x 45minutes, Ex x 30minutes LM ZAYAS OT Aug 12, 2020 10:06
--- NOTE | 2020-08-12 12:30 | Physical Therapy Daily Note ---
PT Daily Note-Current Subjective Pt sitting in recliner upon arrival. Pt agrees to PT. Pt reports not using WCH at home and does not want to use one. OIL HEATERMAN explains safety and nature of pt's ambulation. Pt agrees to SPC similar to what she uses at home. Pain Location: No Pain Reported Mental Status Patient Orientation: Person, Place, Situation Transfers SCALE: Activities may be completed with or without assistive devices. 7-Hpabgyrxyr-vxlyjkl completes the activity by him/herself with no assistance from a helper. 5-Set-up or Clean-up Assistance-helper sets up or cleans up; patient completes activity. [place] assists only prior to or following the activity. 4-Supervision or Touching Assistance-helper provides verbal cues and/or rosita omar/steadying and/or contact guard assistance as patient completes activity. Assistance may be provided throughout the activity or intermittently. 3-Partial/Moderate Assistance-helper does LESS THAN HALF the effort. [place] lifts, holds or supports trunk or limbs, but provides less than half the effort. 2-Substantial/Maximal Assistance-helper does MORE THAN HALF the effort. [place] lifts or holds trunk or limbs and provides more than half the effort. 5-Oxxqhlocs-qwgedw does ALL the effort. Patient does none of the effort to complete the activity. Or, the assistance of 2 or more helpers is required for the patient to complete the activity. If activity was not attempted, code reason: 7-Patient Refused. 9-Not Applicable-not attempted and the patient did not perform the activity before the current illness, exacerbation or injury. 10-Not Attempted due to Environmental Limitations-(lack of equipment, weather restraints, etc.). 88-Not Attempted due to Medical Conditions or Safety Concerns. Roll Left & Right (QC): 6 Sit to Lying (QC): 6 Lying to Sitting/Side of Bed(Q: 6 Sit to Stand (QC): 6 Weight Bearing Full Weight Bearing Full Weight Bearing Gait Training Does the Patient Walk?: Yes Distance: 150', 450' Walk 10 feet (QC): 5 Walk 50 ft with 2 Turns(QC): 4 Walk 150 ft (QC): 4 Gait Persons Needed: 1 Gait Assistive Device: Cane Single Point Wheelchair Training Does the Pt Use a Wheelchair?: No Exercises Supine Ex: Ankle pumps, Quad Set, Glut sets, Heel Slides, Straight leg raise, Hip abd/add Supine Reps: 15 Seated Therapy Exercises: Ankle pumps, Long arc quads, Hip flexion, Kicking activity, Hip abd/add, Glut set Seated Reps: 15 NuStep Minutes: 20 NuStep Workload: 4 Treatments TF to standing, amb in hallway. Pt uses NuStep for 20m at WL 4, completes Seated EX before extended amb. in hallway. Pt returns to room and completes Supine Ex in bed before TF back to recliner at end of tx. OIL HEATERMAN leaves written HEP for Supine & Seated Ex. Pt resting with all needs met, call light in hand. Assessment Current Status: Good Progress OIL HEATERMAN reviews safety as pt is not aware of how ambulation is occurring. Pt fatigued by end of tx. PT Short Term Goals Short Term Goals Time Frame: Aug 18, 2020 Sit to stand: 5 Chair/ubp-kt-tgmgk transfer: 5 Car transfer: 5 Walk 10 feet: 5 Walk 50 feet with two turns: 5 Walk 150 feet: 5 Picking up objects: 4 PT Skilled Nursing Goals Skilled Nursing Goals PT Skilled Nursing Goals Time Frame: Sep 01, 2020 Roll Left & Right (QC): 6 Sit to Lying (QC): 6 Lying-Sitting on Side/Bed(QC): 6 Sit to Stand (QC): 6 Chair/Xgi-ba-Imwhr Xfer(QC): 6 Toilet Transfer (QC): 6 Car Transfer (QC): 6 Does the Patient Walk: Yes Walk 10 feet (QC): 6 Walk 50ft with 2 Turns (QC): 6 Walk 150 ft (QC): 6 Walking 10ft on Uneven Surface: 6 1 Step (curb) (QC): 6 4 Steps (QC): 6 12 Steps (QC): 4 Picking up an Object (QC): 4 Does the Pt use WC or Scooter?: No Wheel 50 feet with 2 turns (QC: 9 Wheel 150 feet: 9 PT Plan Problem List Problem List: Activity Tolerance, Safety, Gait Treatment/Plan Treatment Plan: Continue Plan of Care Treatment Plan: Bed Mobility, Education, Functional Activity [place], Functional Strength, Group Therapy, Gait, Safety, Therapeutic Exercise, Transfers Treatment Duration: Sep 01, 2020 Frequency: At least 5 of 7 days/Wk (IRF) Estimated Hrs Per Day: 1.5 hours per day Patient and/or Family Agrees t: Yes Safety Risks/Education Patient Education: Gait Training, Correct Positioning, Safety Issues Teaching Recipient: Patient Teaching Methods: Discussion Response to Teaching: Verbalize Understanding Time/GCodes Time In: 1000 Time Out: 1130 Total Billed Treatment Time: 90 Total Billed Treatment 1, GT x2 (25m), EX x3 (45m) & FA (20m) LISA SHEN OIL HEATERMAN Aug 12, 2020 12:30
[2020-08-12] MEDS: TRIAMCINOLONE 0.1% CR (KENALOG) 15 GM TUBE TOP SCH (14:04)
--- NOTE | 2020-08-12 14:49 | Occupational Ther Daily Note ---
OT Current Status-Daily Note Subjective No pain reported. Appearance Pt. is up in chair. Agrees to work with OT. Mental Status/Objective Patient Orientation: Person, Place, Time, Situation ADL-Treatment Therapy Code Descriptions/Definitions Functional [place] Measure: 0=Not Assessed/NA 4=Minimal Assistance 1=Total Assistance 5=Supervision or Setup 2=Maximal Assistance 6=Modified [place] 3=Moderate Assistance 7=Complete IndependenceSCALE: Activities may be completed with or without assistive devices. 3-Uhqozyroeq-wxwkwkw completes the activity by him/herself with no assistance from a helper. 5-Set-up or Clean-up Assistance-helper sets up or cleans up; patient completes activity. [place] assists only prior to or following the activity. 4-Supervision or Touching Assistance-helper provides verbal cues and/or touching/steadying and/or contact guard assistance as patient completes activity. Assistance may be provided throughout the activity or intermittently. 3-Partial/Moderate Assistance-helper does LESS THAN HALF the effort. [place] lifts, holds or supports trunk or limbs, but provides less than half the effort. 2-Substantial/Maximal Assistance-helper does MORE THAN HALF the effort. [place] lifts or holds trunk or limbs and provides more than half the effort. 9-Ipgbnwszd-julsjy does ALL the effort. Patient does none of the effort to complete the activity. Or, the assistance of 2 or more helpers is required for the patient to complete the activity. If activity was not attempted, code reason: 7-Patient Refused. 9-Not Applicable-not attempted and the patient did not perform the activity before the current illness, exacerbation or injury. 10-Not Attempted due to Environmental Limitations-(lack of equipment, weather restraints, etc.). 88-Not Attempted due to Medical Conditions or Safety Concerns. Other Treatment Pt. is issued red theraband and pink therapy sponge. Pt. completes 20 bilateral hand squeezes with sponge, and 3 bilateral UE exercises x 15 reps each, with red theraband to facilitate bicep flexion, tricep extension, and scapular retraction for overall strengthening. Pt. tolerated well, and encouraged to do exercises on her own. Pt. verbalizes understanding. All needs met. Education OT Patient Education: Correct positioning, Exercise program, Progress toward Goal/Update tx plan, Purpose of tx/functional activities, Reviewed precautions, Rehab process Teaching Recipient: Patient Teaching Methods: Demonstration, Discussion Response to Teaching: Verbalize Understanding, Return Demonstration OT Halfway Goals Halfway Goals Time Frame: Aug 25, 2020 Eating (QC): 6 Oral Hygiene (QC): 6 Toileting Hygiene (QC): 6 Shower/Bathe Self (QC): 6 Upper Body Dressing (QC): 6 Lower Body Dressing (QC): 6 On/Off Footwear (QC): 6 Additional Goals: 1-Demonstrate ADL Tasks, 2-Verbalize Understanding, 3- ImproveStrength/[place] 1=Demonstrate adherence to instructed precautions during ADL tasks. 2=Patient will verbalize/demonstrate understanding of assistive devices/modifications for ADL. 3=Patient will improve strength/tolerance for activity to enable patient to perform ADL's. OT Education/Plan Problem List/Assessment Assessment: Decreased UE Strength Discharge Recommendations Plan/Recommendations: Continue POC Therapy Discharge Recommendati: Home & Family Treatment Plan/Plan of Care Treatment,Training & Education: Yes Patient would benefit from OT for education, treatment and training to promote independence in ADL's, mobility, safety and/or upper extremity function for A DL's. Plan of Care: ADL Retraining, Functional Mobility, UE Funct Exercise/Act Treatment Duration: Aug 25, 2020 Frequency: At least 5 of 7 days/Wk (IRF) Estimated Hrs Per Day: 1.5 hours per day Agreement: Yes Rehab Potential: Fair Time/GCodes Start Time: 14:00 Stop Time: 14:15 Total Time Billed (hr/min): 15 Billed Treatment Time 1, Ex CHANALM OT Aug 12, 2020 14:49
[2020-08-12 17:09] VITALS: BP 144/65
[2020-08-12 20:40] VITALS: BP 157/72
[2020-08-12] MEDS: MELATONIN 3 MG TABLET PO PRN (22:03)
[2020-08-13 05:22] VITALS: BP 154/73
[2020-08-13] MEDS: inSUlin ASPART (NovoLOG) 1 UNIT/0.01 ML (CHARGE PER UNIT) SC SCH ×4 (06:00→21:00)
[2020-08-13] MEDS: predniSONE 20 MG TAB PO SCH (06:33)
[2020-08-13] MEDS: LEVOTHYROXINE 50 MCG (LEVOTHROID) TAB PO SCH (06:33)
[2020-08-13] MEDS: KCL 10 MEQ TAB (MICRO K) PO SCH (06:33)
[2020-08-13] MEDS: ADVAIR HFA 115/21 MCG INHALER 8 GM IH SCH ×2 (07:31→19:46)
[2020-08-13] MEDS: UMECLIDINIUM BROMIDE (INCRUSE ELLIPTA) 7'S IH SCH (07:31)
[2020-08-13] MEDS: OMEGA 3 (FISH OIL) 1000 MG CAP PO SCH (09:00)
[2020-08-13] MEDS: DOCUSATE SODIUM 100 MG (COLACE) CAP PO SCH ×2 (09:00→21:16)
[2020-08-13] MEDS: cloNIDine 0.1 MG (CATAPRES) TAB PO SCH ×2 (09:00→21:16)
[2020-08-13] MEDS: CALCIUM CARB + VIT D 600 MG (CALCARB + D) TAB PO SCH ×2 (09:00→21:16)
[2020-08-13] MEDS: ENOXAPARIN 40 MG/0.4 ML (LOVENOX) SYR SC SCH ×2 (09:00→21:17)
[2020-08-13] MEDS ORDERED: NON-FORMULARY MEDICATION 1 EA EA (Cholecalciferol (Vitamin D3) (Vitamin D3) 25 MCG) PO SCH (09:00)
[2020-08-13] MEDS: MONTELUKAST 10 MG (SINGULAIR) TAB PO SCH (09:00)
[2020-08-13] MEDS: SENNA W/DOCUSATE (SENOKOT S) TABLET PO SCH ×2 (09:00→21:16)
[2020-08-13] MEDS: VITAMIN D3 25 MCG (1,000 UNITS) TABLET PO SCH (09:00)
[2020-08-13] MEDS: PANTOPRAZOLE 40 MG (PROTONIX) TAB PO SCH (09:00)
[2020-08-13] MEDS: TRIAMTERENE/HCTZ 75-50 (MAXZIDE,DYAZIDE) TABLET PO SCH (09:00)
--- NOTE | 2020-08-13 09:27 | PM&R Progress Note ---
Subjective HPI/CC On Admission Date Seen by Provider: Aug 13, 2020 Time Seen by Provider: 09:30 Subjective/Events-last exam 08/13/20: Pt desperately wants to go home Will have therapy evaluate her performance and will set DC today Denies any significant new pain Prednisone maintained Bowels are moving well Pt wore her CPAP last night Bowels moved yesterday Flu shot was obtained yesterday Blood sugars somewhat satisfactory even on Prednisone of 20 Already asking to go home Checked meds and labs Conferred with RN Reviewed therapy notes Review of Systems Neurological: Weakness, Incoordination Objective Exam Vital Signs Vital Signs Date Time Temp Pulse Resp B/P (MAP) Pulse Ox O2 Delivery O2 Flow Rate FiO2 08/13/20 21:20 97 Room Air 08/13/20 21:14 76 16 133/74 (93) 08/13/20 17:27 36.2 Capillary Refill : Less Than 3 Seconds General Appearance: No Apparent Distress, WD/WN, Chronically ill, Obese HEENT: PERRL/EOMI, Normal ENT Inspection, Pharynx Normal, Other (no ptosis or facial droop) Neck: Full Range of Motion, Normal Inspection, Non Tender, Supple, Carotid Bruit Respiratory: Chest Non Tender, Lungs Clear, Normal Breath Sounds, No Accessory Muscle Use, No Respiratory Distress Cardiovascular: Regular Rate, Rhythm, No Edema, No Gallop, No JVD, No Murmur, Normal Peripheral Pulses Gastrointestinal: Normal Bowel Sounds, No Organomegaly, No Pulsatile Mass, Non Tender, Soft Back: Normal Inspection, No CVA Tenderness, No Vertebral Tenderness Extremity: Normal Capillary Refill, Normal Inspection, Normal Range of Motion, Non Tender, No Calf Tenderness, No Pedal Edema Neurologic/Psychiatric: Alert, Oriented x3, No Motor/Sensory Deficits, Normal Mood/Affect, 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 FIM Transfers Therapy Code Descriptions/Definitions Functional [place] Measure: 0=Not Assessed/NA 4=Minimal Assistance 1=Total Assistance 5=Supervision or Setup 2=Maximal Assistance 6=Modified [place] 3=Moderate Assistance 7=Complete IndependenceSCALE: Activities may be completed with or without assistive devices. 7-Wsgkiudmzl-yyxuxcf completes the activity by him/herself with no assistance from a helper. 5-Set-up or Clean-up Assistance-helper sets up or cleans up; patient completes activity. [place] assists only prior to or following the activity. 4-Supervision or Touching Assistance-helper provides verbal cues and/or touching/steadying and/or contact guard assistance as patient completes activity. Assistance may be provided throughout the activity or intermittently. 3-Partial/Moderate Assistance-helper does LESS THAN HALF the effort. [place] lifts, holds or supports trunk or limbs, but provides less than half the effort. 2-Substantial/Maximal Assistance-helper does MORE THAN HALF the effort. [place] ifts or holds trunk or limbs and provides more than half the effort. 2-Ikmlumpfa-unkvoq does ALL the effort. Patient does none of the effort to complete the activity. Or, the assistance of 2 or more helpers is required for the patient to complete the activity. If activity was not attempted, code reason: 7-Patient Refused. 9-Not Applicable-not attempted and the patient did not perform the activity before the current illness, exacerbation or injury. 10-Not Attempted due to Environmental Limitations-(lack of equipment, weather restraints, etc.). 88-Not Attempted due to Medical Conditions or Safety Concerns. Roll Left to Right (QC): 6 Sit to Lying (QC): 6 Sit to Stand (QC): 6 Chair/Efs-kd-Bnfgb Xfer(QC): 4 Car Transfer (QC): 4 Gait Training Distance: 150', 450' Walk 10 feet (QC): 5 Walk 50 ft with 2 Turns(QC): 4 Walk 150 ft (QC): 4 Walking 10ft/uneven surface-QC: 4 Gait Persons Needed: 1 Gait Assistive Device: Cane Single Point Wheelchair Training Wheel 50 ft with 2 turns (QC): 9 Wheel 150 ft (QC): 9 Stair Training #of Steps: 4 1 Step (curb) (QC): 4 4 Steps (QC): 4 12 Steps (QC): 88 Balance Picking up an Object (QC): 3 ADL-Treatment Eating (QC): 6 Oral Hygiene (QC): 6 Shower/Bathe Self (QC): 5 (Set up in shower.) Upper Body Dressing (QC): 5 Lower Body Dressing (QC): 5 On/Off Footwear (QC): 5 Toileting Hygiene (QC): 6 Toilet Transfer (QC): 4 (SBA) Assessment/Plan Assessment and Plan Assess & Plan/Chief Complaint Assessment: Myasthenia gravis Rheumatoid arthritis HTN HLP Asthma Obesity RALPH on CPAP Allergies DM Vision loss with diplopia Hypokalemia Plan: Prednisone Monitor sugars IRF protocol Monitor BP 08/12/20: Continue treatment plan Monitor sugar and BP 08/13/30: DC planned for tomorrow (1) Myasthenia gravis (2) Hypertension Status: Chronic (3) Hypothyroidism Status: Chronic (4) Diabetes mellitus Status: Chronic (5) Rheumatoid arthritis Status: Chronic (6) Asthma (7) Vision disturbance Status: Acute (8) Dysphagia Status: Acute (9) Dysarthria Status: Acute (10) Diplopia Status: Acute (11) Difficulty swallowing Status: Acute (12) Anxiety Status: Acute FABIENNE ZAMORA DO Aug 13, 2020 09:27
--- NOTE | 2020-08-13 09:33 | Occupational Ther Daily Note ---
OT Current Status-Daily Note Subjective No pain reported. Pt. states, "I just really want to go home." Appearance Pt. up in chair. Pt. has already dressed for the day and completed ADLs. Mental Status/Objective Patient Orientation: Person, Place, Time, Situation ADL-Treatment Therapy Code Descriptions/Definitions Functional [place] Measure: 0=Not Assessed/NA 4=Minimal Assistance 1=Total Assistance 5=Supervision or Setup 2=Maximal Assistance 6=Modified [place] 3=Moderate Assistance 7=Complete IndependenceSCALE: Activities may be completed with or without assistive devices. 4-Qopearawok-bvirnzb completes the activity by him/herself with no assistance from a helper. 5-Set-up or Clean-up Assistance-helper sets up or cleans up; patient completes activity. [place] assists only prior to or following the activity. 4-Supervision or Touching Assistance-helper provides verbal cues and/or touching/steadying and/or contact guard assistance as patient completes activity. Assistance may be provided throughout the activity or intermittently. 3-Partial/Moderate Assistance-helper does LESS THAN HALF the effort. [place] lifts, holds or supports trunk or limbs, but provides less than half the effort. 2-Substantial/Maximal Assistance-helper does MORE THAN HALF the effort. [place] lifts or holds trunk or limbs and provides more than half the effort. 6-Vjepuhiui-xufdtc does ALL the effort. Patient does none of the effort to complete the activity. Or, the assistance of 2 or more helpers is required for the patient to complete the activity. If activity was not attempted, code reason: 7-Patient Refused. 9-Not Applicable-not attempted and the patient did not perform the activity before the current illness, exacerbation or injury. 10-Not Attempted due to Environmental Limitations-(lack of equipment, weather restraints, etc.). 88-Not Attempted due to Medical Conditions or Safety Concerns. Eating (QC): 6 Oral Hygiene (QC): 6 Shower/Bathe Self (QC): 6 (Pt. already cleaned up previous to OT coming into room.) Upper Body Dressing (QC): 6 (Pt. has already dressed self. Retreived clothing from closet and is fully dressed.) Lower Body Dressing (QC): 6 On/Off Footwear: 6 Toileting Hygiene (QC): 6 Toilet Transfer (QC): 6 Other Treatment Pt. up in chair. Pt. states, "I am ready to leave." OT talks in depth with pt. regarding home set up and any possible concerns and equipment needs. Pt. states that she has no concerns. States that she has all needed equipment at home, and that her can even teach from home if needed. Pt. agrees to outpt therapy to continue strengthening, but otherwise, reports no issues. Spouse cooks and she cleans kitchen. She did not feel that she needed to practice a kitchen task. Spouse does all other cleaning and laundry. Pt. ambulated with SBA approximately 150 feet. Pt. declines using walker or cane, and it is noted that she is slightly unsteady on her feet. Pt. is insistent however that even though she recognizes weakness in her hips, she has neuropathy and this pattern of gait is not new. OT emphasizes again taking her time, and performing quality movements instead of ambulating long distances or for long periods of time. Pt. verbalizes understanding. Pt. ambulates to therapy gym and completes arm bike x 20 minutes at mod resistance with on rest break. Completed this task to improve/increase overall strength and endurance. Pt. then donned 1 lb. wrist weights and completed peg activity with alternating patterns. This facilitated overall strengthening. Tolerated treatment well. Ambulated back to room. Completed 3 bilateral UE exercises with red theraband, x 20 reps each, in all planes to increase overall strength with daily skills. Pt. is able to verbalize all exercises and states that she will continue them at home. Education OT Patient Education: Correct positioning, Exercise program, Progress toward Goal/Update tx plan, Purpose of tx/functional activities, Reviewed precautions, Rehab process, Transfer techniques Teaching Recipient: Patient Teaching Methods: Demonstration, Discussion Response to Teaching: Verbalize Understanding, Return Demonstration OT Reheater Goals Reheater Goals Time Frame: Aug 25, 2020 Eating (QC): 6 Oral Hygiene (QC): 6 Toileting Hygiene (QC): 6 Shower/Bathe Self (QC): 6 Upper Body Dressing (QC): 6 Lower Body Dressing (QC): 6 On/Off Footwear (QC): 6 Additional Goals: 1-Demonstrate ADL Tasks, 2-Verbalize Understanding, 3- ImproveStrength/[place] 1=Demonstrate adherence to instructed precautions during ADL tasks. 2=Patient will verbalize/demonstrate understanding of assistive devices/modifications for ADL. 3=Patient will improve strength/tolerance for activity to enable patient to perform ADL's. OT Education/Plan Problem List/Assessment Assessment: Decreased Activ Tolerance Discharge Recommendations Plan/Recommendations: Continue POC Therapy Discharge Recommendati: Home & Family Treatment Plan/Plan of Care Treatment,Training & Education: Yes Patient would benefit from OT for education, treatment and training to promote independence in ADL's, mobility, safety and/or upper extremity function for ADL's. Plan of Care: ADL Retraining, Functional Mobility, UE Funct Exercise/Act Treatment Duration: Aug 25, 2020 Frequency: At least 5 of 7 days/Wk (IRF) Estimated Hrs Per Day: 1.5 hours per day Agreement: Yes Rehab Potential: Good Time/GCodes Start Time: 08:00 Stop Time: 09:30 Total Time Billed (hr/min): 90 Billed Treatment Time 1, Ex x 60minutes, FA x 30minutes LM ZAYAS OT Aug 13, 2020 09:33
--- NOTE | 2020-08-13 11:23 | Physical Therapy Daily Note ---
PT Daily Note-Current Subjective Pt sitting in recliner upon arrival. Pt agrees to PT. Pt states, "I would like to go home soon like today". Pain Location: No Pain Reported Mental Status Patient Orientation: Person, Place, Situation Transfers SCALE: Activities may be completed with or without assistive devices. 9-Kbzkasxkug-dlfzmil completes the activity by him/herself with no assistance from a helper. 5-Set-up or Clean-up Assistance-helper sets up or cleans up; patient completes activity. [place] assists only prior to or following the activity. 4-Supervision or Touching Assistance-helper provides verbal cues and/or touching/steadying and/or contact guard assistance as patient completes activity. Assistance may be provided throughout the activity or intermittently. 3-Partial/Moderate Assistance-helper does LESS THAN HALF the effort. [place] lifts, holds or supports trunk or limbs, but provides less than half the effort. 2-Substantial/Maximal Assistance-helper does MORE THAN HALF the effort. [place] lifts or holds trunk or limbs and provides more than half the effort. 2-Tfkwymvcq-xygunk does ALL the effort. Patient does none of the effort to complete the activity. Or, the assistance of 2 or more helpers is required for the patient to complete the activity. If activity was not attempted, code reason: 7-Patient Refused. 9-Not Applicable-not attempted and the patient did not perform the activity before the current illness, exacerbation or injury. 10-Not Attempted due to Environmental Limitations-(lack of equipment, weather restraints, etc.). 88-Not Attempted due to Medical Conditions or Safety Concerns. Roll Left & Right (QC): 6 Sit to Lying (QC): 6 Lying to Sitting/Side of Bed(Q: 6 Sit to Stand (QC): 6 Chair/Yea-xk-Bpwze Xfer(QC): 6 Toilet Transfer (QC): 6 Car Transfer (QC): 6 Weight Bearing Full Weight Bearing Full Weight Bearing Gait Training Does the Patient Walk?: Yes Distance: 150', 450' Walk 10 feet (QC): 6 Walk 50 ft with 2 Turns(QC): 6 Walk 150 ft (QC): 5 Walking 10ft/uneven surface-QC: 6 Gait Persons Needed: 1 Gait Assistive Device: Cane Single Point Pt fatigues and needs occasional RB (standing normally). Wheelchair Training Does the Pt Use a Wheelchair?: No Stair Training Stair Training: Handrails/: 2 handrails #of Steps: 4 1 Step (curb) (QC): 5 4 Steps (QC): 5 12 Steps (QC): 7 Stairs: Pattern: Step to Balance Picking up an Object (QC): 5 Exercises NuStep Minutes: 15 NuStep Workload: 5 Treatments TF from recliner to standing, amb. in hallway. Pt completes QC scoring listed above as well as extended amb. and used NuStep for 15m at WL 5. Pt returns to room at end of tx, uses BR and returns to recliner. All needs met, call light in hand. Assessment Current Status: Good Progress Pt needs occasional RB, does not want to use AD at home. A[employer] PLANS INTELLIGENCE OFFICER encourages use of AD. Pt states has FWW, SPC & walking stick at home and probably will use walking stick. Pt has made progress while on ARU. PT Short Term Goals Short Term Goals Time Frame: Aug 18, 2020 Sit to stand: 5 Chair/abr-js-faqfk transfer: 5 Car transfer: 5 Walk 10 feet: 5 Walk 50 feet with two turns: 5 Walk 150 feet: 5 Picking up objects: 4 PT Laundry Room Attendant Goals Retirement Goals PT Laundry Room Attendant Goals Time Frame: Sep 01, 2020 Roll Left & Right (QC): 6 Sit to Lying (QC): 6 Lying-Sitting on Side/Bed(QC): 6 Sit to Stand (QC): 6 Chair/Ktt-hs-Lxzqk Xfer(QC): 6 Toilet Transfer (QC): 6 Car Transfer (QC): 6 Does the Patient Walk: Yes Walk 10 feet (QC): 6 Walk 50ft with 2 Turns (QC): 6 Walk 150 ft (QC): 6 Walking 10ft on Uneven Surface: 6 1 Step (curb) (QC): 6 4 Steps (QC): 6 12 Steps (QC): 4 Picking up an Object (QC): 4 Does the Pt use WC or Scooter?: No Wheel 50 feet with 2 turns (QC: 9 Wheel 150 feet: 9 PT Plan Problem List Problem List: Activity Tolerance, Safety, Gait Treatment/Plan Treatment Plan: Continue Plan of Care Treatment Plan: Bed Mobility, Education, Functional Activity [place], Functional Strength, Group Therapy, Gait, Safety, Therapeutic Exercise, Transfers Treatment Duration: Sep 01, 2020 Frequency: At least 5 of 7 days/Wk (IRF) Estimated Hrs Per Day: 1.5 hours per day Patient and/or Family Agrees t: Yes Safety Risks/Education Patient Education: Gait Training, Steps, Correct Positioning, Safety Issues Teaching Recipient: Patient Teaching Methods: Discussion Response to Teaching: Verbalize Understanding Time/GCodes Time In: 1015 Time Out: 1115 Total Billed Treatment Time: 60 Total Billed Treatment 1, GT x2 (25m), EX (15m) & FA (20m) LISA SHEN [employer]OC PLANS INTELLIGENCE OFFICER Aug 13, 2020 11:23
[2020-08-13] MEDS: polyethylene glycoL POWDER 17 GM (MIRALAX) PACK PO SCH ×2 (12:03→14:23)
--- NOTE | 2020-08-13 12:14 | Progress Note ---
Progress Note Progress note: 08/13/20 Denies new questions or concerns this morning Patient is stating she wants to go home Reports some mild shoulder pain with PT Continuing to wear CPAP at night Has not had a BM yet today JAMES IRWIN,MED STUDENT Aug 13, 2020 12:14
--- NOTE | 2020-08-13 13:59 | Physical Therapy Daily Note ---
PT Daily Note-Current Subjective Pt sitting in recliner upon arrival. Pt agrees to PT. Pt reports again "just ready to leave". Mental Status Patient Orientation: Person, Place, Situation Transfers SCALE: Activities may be completed with or without assistive devices. 2-Xftvxsfuty-idcovyy completes the activity by him/herself with no assistance from a helper. 5-Set-up or Clean-up Assistance-helper sets up or cleans up; patient completes activity. [place] assists only prior to or following the activity. 4-Supervision or Touching Assistance-helper provides verbal cues and/or touching/steadying and/or contact guard assistance as patient completes activity. Assistance may be provided throughout the activity or intermittently. 3-Partial/Moderate Assistance-helper does LESS THAN HALF the effort. [place] lifts, holds or supports trunk or limbs, but provides less than half the effort. 2-Substantial/Maximal Assistance-helper does MORE THAN HALF the effort. [place] lifts or holds trunk or limbs and provides more than half the effort. 7-Bcrgnvatp-bhgfik does ALL the effort. Patient does none of the effort to complete the activity. Or, the assistance of 2 or more helpers is required for the patient to complete the activity. If activity was not attempted, code reason: 7-Patient Refused. 9-Not Applicable-not attempted and the patient did not perform the activity before the current illness, exacerbation or injury. 10-Not Attempted due to Environmental Limitations-(lack of equipment, weather restraints, etc.). 88-Not Attempted due to Medical Conditions or Safety Concerns. 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 No Equipment needed. PHONOGRAPH NEEDLE TIP MAKER gives pt education for safety and awareness for fatigue & ambulation. Pt has all needs met, call light in hand. Assessment Current Status: Good Progress Pt is receptive to information given and reports ready to DC KEVIN. PT Short Term Goals Short Term Goals Time Frame: Aug 18, 2020 Sit to stand: 5 Chair/qnk-hn-gjdqk transfer: 5 Car transfer: 5 Walk 10 feet: 5 Walk 50 feet with two turns: 5 Walk 150 feet: 5 Picking up objects: 4 PT Fpc Goals Family Medicine Resident Goals PT Family Medicine Resident Goals Time Frame: Sep 01, 2020 Roll Left & Right (QC): 6 Sit to Lying (QC): 6 Lying-Sitting on Side/Bed(QC): 6 Sit to Stand (QC): 6 Chair/Chu-qk-Zbutv Xfer(QC): 6 Toilet Transfer (QC): 6 Car Transfer (QC): 6 Does the Patient Walk: Yes Walk 10 feet (QC): 6 Walk 50ft with 2 Turns (QC): 6 Walk 150 ft (QC): 6 Walking 10ft on Uneven Surface: 6 1 Step (curb) (QC): 6 4 Steps (QC): 6 12 Steps (QC): 4 Picking up an Object (QC): 4 Does the Pt use WC or Scooter?: No Wheel 50 feet with 2 turns (QC: 9 Wheel 150 feet: 9 PT Plan Problem List Problem List: Activity Tolerance, Gait Treatment/Plan Treatment Plan: Continue Plan of Care Treatment Plan: Bed Mobility, Education, Functional Activity Lenin, Functional Strength, Group Therapy, Gait, Safety, Therapeutic Exercise, Transfers Treatment Duration: Sep 01, 2020 Frequency: At least 5 of 7 days/Wk (IRF) Estimated Hrs Per Day: 1.5 hours per day Patient and/or Family Agrees t: Yes Safety Risks/Education Patient Education: Gait Training, Correct Positioning, Safety Issues Teaching Recipient: Patient Teaching Methods: Discussion Response to Teaching: Verbalize Understanding Time/GCodes Time In: 1330 Time Out: 1400 Total Billed Treatment Time: 30 Total Billed Treatment 1, FA x2 (30m) LISA SHEN PTA Aug 13, 2020 13:59
[2020-08-13] MEDS: TRIAMCINOLONE 0.1% CR (KENALOG) 15 GM TUBE TOP SCH ×2 (14:25→21:24)
[2020-08-13] MEDS: FLUTICASONE NASAL SPRAY (FLONASE) 16 GM BTL NS SCH (14:26)
[2020-08-13 17:27] VITALS: BP 132/92
[2020-08-13] MEDS ORDERED: PRD20T PO (20:54)
[2020-08-13] MEDS ORDERED: POTA10TA6 PO (20:54)
[2020-08-13 21:14] VITALS: BP 133/74
[2020-08-13] MEDS: MELATONIN 3 MG TABLET PO PRN (21:16)
[2020-08-14] MEDS: LEVOTHYROXINE 50 MCG (LEVOTHROID) TAB PO SCH (05:47)
[2020-08-14 05:55] VITALS: BP 128/62
[2020-08-14] MEDS: inSUlin ASPART (NovoLOG) 1 UNIT/0.01 ML (CHARGE PER UNIT) SC SCH (06:00)
[2020-08-14] MEDS: predniSONE 20 MG TAB PO SCH (06:33)
[2020-08-14] MEDS: KCL 10 MEQ TAB (MICRO K) PO SCH (06:33)
--- NOTE | 2020-08-14 08:06 | Physical Therapy Daily Note ---
PT Daily Note-Current Subjective Pt presents upright in recliner and agrees to PT. Mental Status Patient Orientation: Person, Place, Time, Eyes Open, Situation Transfers SCALE: Activities may be completed with or without assistive devices. 5-Wbfqkbmdfv-xpqmlco completes the activity by him/herself with no assistance from a helper. 5-Set-up or Clean-up Assistance-helper sets up or cleans up; patient completes activity. [place] assists only prior to or following the activity. 4-Supervision or Touching Assistance-helper provides verbal cues and/or touching/steadying and/or contact guard assistance as patient completes activity. Assistance may be provided throughout the activity or intermittently. 3-Partial/Moderate Assistance-helper does LESS THAN HALF the effort. [place] lift s, holds or supports trunk or limbs, but provides less than half the effort. 2-Substantial/Maximal Assistance-helper does MORE THAN HALF the effort. [place] lifts or holds trunk or limbs and provides more than half the effort. 7-Vevqiceyb-bzvwhi does ALL the effort. Patient does none of the effort to complete the activity. Or, the assistance of 2 or more helpers is required for the patient to complete the activity. If activity was not attempted, code reason: 7-Patient Refused. 9-Not Applicable-not attempted and the patient did not perform the activity before the current illness, exacerbation or injury. 10-Not Attempted due to Environmental Limitations-(lack of equipment, weather restraints, etc.). 88-Not Attempted due to Medical Conditions or Safety Concerns. Sit to Stand (QC): 6 Chair/Cxc-rw-Hgvoy Xfer(QC): 6 Weight Bearing Full Weight Bearing Full Weight Bearing Gait Training Does the Patient Walk?: Yes Distance: 150' Walk 10 feet (QC): 6 Walk 50 ft with 2 Turns(QC): 6 Walk 150 ft (QC): 6 Gait Assistive Device: Cane Small Base Quad Pt wobbles with her weight shifting and has a trendelenburg gait but not to a point where CGA is needed. Stair Training Stair Training: Handrails/: 2 handrails #of Steps: 4 1 Step (curb) (QC): 6 4 Steps (QC): 6 12 Steps (QC): 4 Stairs: Pattern: Reciprocal Patient is aware of the "up with the good, down with the bad" pattern but uses a reciprocal pattern. Pt utilizes both handrails. Treatments Stairs Assessment Current Status: Good Progress Pt has improved her ability to ascend and descend stairs. PT Short Term Goals Short Term Goals Time Frame: Aug 18, 2020 Sit to stand: 5 Chair/fkj-tq-catlb transfer: 5 Car transfer: 5 Walk 10 feet: 5 Walk 50 feet with two turns: 5 Walk 150 feet: 5 Picking up objects: 4 PT Group Home Goals Group Home Goals PT Group Home Goals Time Frame: Sep 01, 2020 Roll Left & Right (QC): 6 Sit to Lying (QC): 6 Lying-Sitting on Side/Bed(QC): 6 Sit to Stand (QC): 6 Chair/Ggm-jt-Xptiu Xfer(QC): 6 Toilet Transfer (QC): 6 Car Transfer (QC): 6 Does the Patient Walk: Yes Walk 10 feet (QC): 6 Walk 50ft with 2 Turns (QC): 6 Walk 150 ft (QC): 6 Walking 10ft on Uneven Surface: 6 1 Step (curb) (QC): 6 4 Steps (QC): 6 12 Steps (QC): 4 Picking up an Object (QC): 4 Does the Pt use WC or Scooter?: No Wheel 50 feet with 2 turns (QC: 9 Wheel 150 feet: 9 PT Plan Problem List Problem List: Activity Tolerance, Functional Strength, Safety, Balance, Gait, Transfer, ROM Treatment/Plan Treatment Plan: Continue Plan of Care Treatment Plan: Bed Mobility, Education, Functional Activity Lenin, Functional Strength, Group Therapy, Gait, Safety, Therapeutic Exercise, Transfers Treatment Duration: Sep 01, 2020 Frequency: At least 5 of 7 days/Wk (IRF) Estimated Hrs Per Day: 1.5 hours per day Patient and/or Family Agrees t: Yes Safety Risks/Education Patient Education: Gait Training, Steps, Correct Positioning, Safety Issues Teaching Recipient: Patient Teaching Methods: Demonstration, Discussion Response to Teaching: Reinforcement Needed Time/GCodes Time In: 0755 Time Out: 0803 Total Billed Treatment Time: 8 Total Billed Treatment 1 visit GT 8' ROBIN MOTA PT Aug 14, 2020 08:06
--- NOTE | 2020-08-14 08:17 | Therapy Team Discharge Summary ---
Therapy Discharge Summary Discharge Recommendations Date of Discharge Physical Therapy Patient came to rehab with Myasthenia Gravis with RA. Upon evaluation patient performed bed mobility and supine <-> sit with independence, sit <-> stand and transfers with CGA, car transfer CGA, ambulated 150' with a rolling walker with CGA (including 50' with at least 2 turns of 90 degrees and 10' over an uneven surface), and went up and down 4 steps using 2 handrails with CGA. Patient has been performing bed mobility and transfer training, balance and endurance training, functional strengthening, stair training, gait training, and education. 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 Now, patient performs bed mobility and transfers with independence, car transfer independent, ambulates 450' with a single point cane with independence (including 50' with at least 2 turns of 90 degrees and 10' over an uneven surface), can apple picking supervisor an object from the floor with setup, and can go up and down 4 steps using 2 handrails with independence. Patient is discharging from this facility today and will be discharged from PT at this time. Occupational Therapy Decreased Activ Tolerance, Decreased UE Strength PT Coffee Grinder Goals Coffee Grinder Goals PT Intermediate Goals Time Frame: Sep 01, 2020 Roll Left to Right (QC): 6 Sit to Lying (QC): 6 Lying-Sitting on Side/Bed(QC): 6 Sit to Stand (QC): 6 Chair/Pmx-ws-Skadd Xfer(QC): 6 Car Transfer (QC): 6 Does the Patient Walk: Yes Walk 10 feet (QC): 6 Walk 10ft-Uneven Surface(QC): 6 Walk 50ft with 2 Turns (QC): 6 Walk 150 ft (QC): 6 Does the Pt use WC or Scooter?: No Wheel 50 feet with 2 turns (QC: 9 1 Step (curb) (QC): 6 4 Steps (QC): 6 12 Steps (QC): 4 Picking up an Object (QC): 4 OT Coffee Grinder Goals Intermediate Goals Time Frame: Aug 25, 2020 Eating (QC): 6 Oral Hygiene (QC): 6 Shower/Bathe Self (QC): 6 Upper Body Dressing (QC): 6 Lower Body Dressing (QC): 6 On/Off Footwear (QC): 6 Toileting Hygiene (QC): 6 Toilet/Commode Transfer (QC): 6 Additional Goals: 1-Demonstrate ADL Tasks, 2-Verbalize Understanding, 3- ImproveStrength/Lenin 1=Demonstrate adherence to instructed precautions during ADL tasks. 2=Patient will verbalize/demonstrate understanding of assistive devices/modifications for ADL. 3=Patient will improve strength/tolerance for activity to enable patient to perform ADL's. ROBIN MOTA PT Aug 14, 2020 08:17
[2020-08-14] MEDS: cloNIDine 0.1 MG (CATAPRES) TAB PO SCH (08:40)
[2020-08-14] MEDS: ENOXAPARIN 40 MG/0.4 ML (LOVENOX) SYR SC SCH (08:40)
[2020-08-14] MEDS: polyethylene glycoL POWDER 17 GM (MIRALAX) PACK PO SCH (08:40)
[2020-08-14] MEDS: MONTELUKAST 10 MG (SINGULAIR) TAB PO SCH (08:40)
[2020-08-14] MEDS: PANTOPRAZOLE 40 MG (PROTONIX) TAB PO SCH (08:40)
[2020-08-14] MEDS: VITAMIN D3 25 MCG (1,000 UNITS) TABLET PO SCH (08:40)
[2020-08-14] MEDS: OMEGA 3 (FISH OIL) 1000 MG CAP PO SCH (08:40)
[2020-08-14] MEDS: CALCIUM CARB + VIT D 600 MG (CALCARB + D) TAB PO SCH (08:40)
[2020-08-14] MEDS: TRIAMTERENE/HCTZ 75-50 (MAXZIDE,DYAZIDE) TABLET PO SCH (08:40)
[2020-08-14] MEDS: SENNA W/DOCUSATE (SENOKOT S) TABLET PO SCH (08:40)
[2020-08-14] MEDS: FLUTICASONE NASAL SPRAY (FLONASE) 16 GM BTL NS SCH (08:41)
[2020-08-14] MEDS: DOCUSATE SODIUM 100 MG (COLACE) CAP PO SCH (08:41)
[2020-08-14] MEDS: TRIAMCINOLONE 0.1% CR (KENALOG) 15 GM TUBE TOP SCH (08:42)
--- NOTE | 2020-08-14 10:19 | Discharge Summary ---
Diagnosis/Chief Complaint Date of Admission Aug 10, 2020 at 17:08 Date of Discharge Discharge Date: Aug 14, 2020 Discharge Diagnosis Assessment: Myasthenia gravis Rheumatoid arthritis HTN HLP Asthma Obesity RALPH on CPAP Allergies DM Vision loss with diplopia Hypokalemia Plan: Prednisone Monitor sugars IRF protocol Monitor BP 08/12/20: Continue treatment plan Monitor sugar and BP 08/13/30: DC planned for tomorrow (1) Myasthenia gravis (2) Hypertension Status: Chronic (3) Hypothyroidism Status: Chronic (4) Diabetes mellitus Status: Chronic (5) Rheumatoid arthritis Status: Chronic (6) Asthma (7) Vision disturbance Status: Acute (8) Dysphagia Status: Acute (9) Dysarthria Status: Acute (10) Diplopia Status: Acute (11) Difficulty swallowing Status: Acute (12) Anxiety Status: Acute Discharge Summary Discharge Physical Examination Allergies: Coded Allergies: adhesive tape (Verified Allergy, Intermediate, 02/21/20) BLISTERS AND RAW SKIN amlodipine (Verified Allergy, Unknown, 02/22/13) erythromycin base (Verified Allergy, Unknown, 02/22/13) Uncoded Allergies: ALMONDS (Adverse Reaction, Mild, 02/22/20) SHE HAS PAIN ALL OVER WHEN SHE EATS THEM Vitals & I&Os Vital Signs Date Time Temp Pulse Resp B/P (MAP) Pulse Ox O2 Delivery O2 Flow Rate FiO2 08/14/20 12:20 35.3 71 16 128/62 96 Room Air General Appearance: Alert, Oriented X3, Cooperative Respiratory: Clear to Auscultation Cardiovascular: Regular Rate Neuro: Normal Gait, Normal Speech, Strength at 5/5 X4 Ext Psych/Mental Status: Mental Status NL Hospital Course Was the Problem List Reviewed?: Yes Hospital course: Pt had a brief hospital course for five days after he was admitted for severe debility after diagnosis of Myasthenia Gravis s/p plasmap heresis five rounds at Med. Overall she did very well, labs remained stable, bowels returned back to normal, pain was very well controlled, maintained on Prednisone 20 mG per Myasthenia Gravis specialist at and she was deemed stable for discharge home to live with her but she has no hesitation about discharge. She will see me in one week at my clinic. Labs (last 24 hrs) Laboratory Tests 08/10/20 20:16: Glucometer 178H 08/11/20 05:37: White Blood Count 13.2H, Red Blood Count 4.62, Hemoglobin 13.7, Hematocrit 42, Mean Corpuscular Volume 91, Mean Corpuscular Hemoglobin 30, Mean Corpuscular Hemoglobin Concent 33, Red Cell Distribution Width 15.0H, Platelet Count 178, Mean Platelet Volume 10.7, Immature Granulocyte % (Auto) 2, Neutrophils (%) (Auto) 59, Lymphocytes (%) (Auto) 30, Monocytes (%) (Auto) 7, Eosinophils (%) (Auto) 1, Basophils (%) (Auto) 1, Neutrophils # (Auto) 7.8, Lymphocytes # (Auto) 4.0, Monocytes # (Auto) 0.9, Eosinophils # (Auto) 0.1, Basophils # (Auto) 0.1, Immature Granulocyte # (Auto) 0.3H, Sodium Level 138, Potassium Level 3.5L, Chloride Level 106, Carbon Dioxide Level 21, Anion Gap 11, Blood Urea Nitrogen 16, Creatinine 0.90, Estimat Glomerular Filtration Rate > 60, BUN/Creatinine Ratio 18, Glucose Level 140H, Calcium Level 9.2, Corrected Calcium 8.9, Total Bilirubin 0.9, Aspartate Amino Transf (AST/SGOT) 14, Alanine Aminotransferase (ALT/SGPT) 15, Alkaline Phosphatase 27L, Total Protein 5.5L, Albumin 4.4 08/11/20 11:56: Glucometer 135H 08/11/20 15:22: Glucometer 198H 08/11/20 20:00: Glucometer 170H 08/12/20 05:23: Glucometer 123H 08/12/20 11:27: Glucometer 158H 08/12/20 17:07: Glucometer 161H 08/12/20 20:44: Glucometer 169H 08/13/20 05:24: Glucometer 134H 08/13/20 10:58: Glucometer 185H 08/13/20 15:29: Glucometer 183H 08/13/20 20:04: Glucometer 141H 08/14/20 05:31: Glucometer 134H Pending Labs Laboratory Tests 08/10/20 20:16: Glucometer 178 08/11/20 05:37: White Blood Count 13.2, Red Blood Count 4.62, Hemoglobin 13.7, Hematocrit 42, Mean Corpuscular Volume 91, Mean Corpuscular Hemoglobin 30, Mean Corpuscular Hemoglobin Concent 33, Red Cell Distribution Width 15.0, Platelet Count 178, Mean Platelet Volume 10.7, Immature Granulocyte % (Auto) 2, Neutrophils (%) (Auto) 59, Lymphocytes (%) (Auto) 30, Monocytes (%) (Auto) 7, Eosinophils (%) (Auto) 1, Basophils (%) (Auto) 1, Neutrophils # (Auto) 7.8, Lymphocytes # (Auto) 4.0, Monocytes # (Auto) 0.9, Eosinophils # (Auto) 0.1, Basophils # (Auto) 0.1, Immature Granulocyte # (Auto) 0.3, Sodium Level 138, Potassium Level 3.5, Chloride Level 106, Carbon Dioxide Level 21, Anion Gap 11, Blood Urea Nitrogen 16, Creatinine 0.90, Estimat Glomerular Filtration Rate > 60, BUN/Creatinine Ratio 18, Glucose Level 140, Calcium Level 9.2, Corrected Calcium 8.9, Total Bilirubin 0.9, Aspartate Amino Transf (AST/SGOT) 14, Alanine Aminotransferase ( ALT/SGPT) 15, Alkaline Phosphatase 27, Total Protein 5.5, Albumin 4.4 08/11/20 11:56: Glucometer 135 08/11/20 15:22: Glucometer 198 08/11/20 20:00: Glucometer 170 08/12/20 05:23: Glucometer 123 08/12/20 11:27: Glucometer 158 08/12/20 17:07: Glucometer 161 08/12/20 20:44: Glucometer 169 08/13/20 05:24: Glucometer 134 08/13/20 10:58: Glucometer 185 08/13/20 15:29: Glucometer 183 08/13/20 20:04: Glucometer 141 08/14/20 05:31: Glucometer 134 Discharge Home Medications: Active Scripts Active Prednisone 20 Mg Tab 20 Mg PO DAILY@0700 Klor-Con 10 (Potassium Chloride) 10 Meq Tablet.er 10 Meq PO DAILY@0700 Reported Citalopram HBr (Citalopram Hydrobromide) 10 Mg Tablet 10 Mg PO DAILY Glucosamine HCl 500 Mg Tablet 1,000 Mg PO BID Calcium 500 + Vit D 200 Caplet (Calcium Carbonate/Vitamin D3) 1 Each Tablet 1 Each PO BID Pantoprazole Sodium 40 Mg Tablet.dr 40 Mg PO DAILY Fish Oil 1,200 mg Fish Oil (Fish Oil/Dha/Epa) 1 Each Capsule 1 Each PO DAILY Vitamin D3 (Cholecalciferol (Vitamin D3)) 25 Mcg Capsule 25 Mcg PO DAILY Fluticasone Propionate 16 Gm [place].susp 1 Sprays NS DAILY Proair Hfa (Albuterol Sulfate) 1 Puff Puff 2 Puff INH Q4H PRN Atorvastatin Calcium 20 Mg Tablet 20 Mg PO DAILY Triamterene-Hctz 37.5-25 mg Cp (Triamterene/Hydrochlorothiazid) 1 Each Capsule 1 Cap PO DAILY Spiriva Respimat 1.25MCG/ACTUATION (Tiotropium [place]) 4 Gm Mist.inhal 2 Puff INH DAILY LAST FILLED 11-15-2019 #12/13 DAY SUPPLY Breo Ellipta 200-25 Mcg INH (Fluticasone/Vilanterol) 1 Each Blst.w.dev 1 Puff INH DAILY Montelukast Sodium 10 Mg Tablet 10 Mg PO DAILY Clonidine HCl 0.1 Mg Tablet 0.1 Mg PO BID Levothyroxine Sodium 50 Mcg Tablet 50 Mcg PO DAILY Instructions to patient/family Please see electronic discharge instructions given to patient. Diagnosis/Problems Diagnosis/Problems (1) Myasthenia gravis (2) Hypertension Status: Chronic (3) Hypothyroidism Status: Chronic (4) Diabetes mellitus Status: Chronic (5) Rheumatoid arthritis Status: Chronic (6) Asthma (7) Vision disturbance Status: Acute (8) Dysphagia Status: Acute (9) Dysarthria Status: Acute (10) Diplopia Status: Acute (11) Difficulty swallowing Status: Acute (12) Anxiety Status: Acute Clinical Quality Measures DVT/VTE Risk/Contraindication: Risk Factor Score Per Nursin RFS Level Per Nursing on Admit: 4+=Very High FABIENNE ZAMORA DO Aug 14, 2020 10:19
[2020-08-14 12:20] VITALS: BP 128/62
== END 2020-08-14 10:30 | disposition home or self-care (01) | DRG 57 ==
PROVIDERS: ADMIT Internal Medicine; ATTEND Internal Medicine
DX: G70.00 Myasthenia gravis without (acute) exacerbation (principal); Z68.42 Body mass index [BMI] 45.0-49.9, adult; M06.9 Rheumatoid arthritis, unspecified; I10 Essential (primary) hypertension; E78.5 Hyperlipidemia, unspecified; J45.909 Unspecified asthma, uncomplicated; E66.9 Obesity, unspecified; G47.33 Obstructive sleep apnea (adult) (pediatric); E11.40 Type 2 diabetes mellitus with diabetic neuropathy, unspecified; H54.7 Unspecified visual loss; H53.2 Diplopia; E87.6 Hypokalemia; R13.10 Dysphagia, unspecified; R47.1 Dysarthria and anarthria; J42 Unspecified chronic bronchitis; E78.00 Pure hypercholesterolemia, unspecified; M19.91 Primary osteoarthritis, unspecified site; E03.9 Hypothyroidism, unspecified; F41.9 Anxiety disorder, unspecified; F32.9 Major depressive disorder, single episode, unspecified; Z23 Encounter for immunization; Z86.718 Personal history of other venous thrombosis and embolism; Z87.01 Personal history of pneumonia (recurrent)
CPT/HCPCS: 36415; 80053; 82962; 85025; 90686; 94640

== ENCOUNTER → 2020-09-23 | Outpatient (CLI) | payer BC ==
[~2020-09-23] MED LIST changes: -ACETAMINOPHEN 500 MG TAB (TYLENOL) PO PRN; -ALPRAZolam 0.25 MG (XANAX) TAB PO PRN; -BISACODYL 10 MG SUPP (DULCOLAX) PR PRN; +CALC-676 PO; -CALCIUM CARBONATE 500 MG (TUMS) TAB.CHEW PO PRN; -CLON0.1T PO; -DOCUSATE SODIUM 100 MG (COLACE) CAP PO PRN; -ENOXAPARIN 40 MG/0.4 ML (LOVENOX) SYR SC SCH; -FLEET ENEMA ADULT 1 EA BTL PR PRN; +GLUC500T10 PO; -HYDROcodone/APAP 5 MG/325 MG (LORTAB) TAB PO PRN; -LACTULOSE SYRUP 10GM/15ML (ENULOSE) 30ML UDC PO PRN; -LOPERAMIDE 2 MG (IMODIUM) TABLET PO PRN; -ONDANSETRON 4 MG (ZOFRAN) ORAL DISSOLVE TAB PO PRN; +PANT40TA52 PO; +POTA10TA6 PO; -diphenhydrAMINE 25 MG TAB (BENADRYL) PO PRN; -guaiFENesin/CODEINE (ROBITUSSIN AC) 10ML UDC PO PRN
--- NOTE | 2020-09-24 09:14 | Diagnostic Imaging Report ---
INDICATION: Routine screening. COMPARISON: 05/15/2019. TECHNIQUE: 2D and 3D bilateral screening mammography was performed with CAD. FINDINGS: Scattered fibroglandular densities are identified bilaterally. Benign calcifications are scattered throughout both breasts. No mass or malignant appearing microcalcifications are identified. The axillae are unremarkable. IMPRESSION: No mammographic features suspicious for malignancy are identified. ACR BI-RADS Category 2: Benign findings. Result letter will be mailed to the patient. Note: At least 10% of breast cancer is not imaged by mammography. Dictated by: Dictated on workstation # [id number]
== END ==
LOC: RAD 14:15
PROVIDERS: ATTEND Internal Medicine
DX: Z12.31 Encounter for screening mammogram for malignant neoplasm of breast (principal); Z13.820 Encounter for screening for osteoporosis
CPT/HCPCS: 77063; 77067

== ENCOUNTER 2020-10-01 14:35 | Emergency (ER) | payer BC ==
[~2020-10-01] VITALS: Ht 167.7 cm; Wt 153.0 kg
--- NOTE | 2020-10-01 15:24 | ED General ---
General Chief Complaint: Respiratory Problems Stated Complaint: COVID +, RESP DISTRESS Source of Information: Patient History of Present Illness Date Seen by Provider: Oct 01, 2020 Time Seen by Provider: 15:00 Initial Comments Patient is a 60-year-old female who presents to the emergency department today with a chief complaint of shortness of breath, dizziness, nausea and vomiting. Patient states onset of her symptoms was yesterday. She states all the members in her household are Covid positive at this point. She just got her positive test results about 2 hours ago. Patient also endorses some dysuria with some urgency and "dribbling". She denies any diarrhea, black or bloody stools. She states that her fever at home has been T-max 102. She is vomiting and actively dry heaving on evaluation. She denies sore throat, earaches, runny nose or congestion. She does have a nonproductive cough. Patient states anytime she moves she gets profoundly dizzy and that is what seems to make her nauseated. She denies any focal motor weakness at this time, she does have a history of myasthenia gravis recently diagnosed. She is on a prednisone taper currently. All other review of systems reviewed and negative except as stated above. Timing/Duration: 1-2 Days Severity: Moderate Modifying Factors: improves with Movement Associated Systoms: Diaphoresis, Fever/Chills, Loss of Appetite, Nausea/Vomiting, Shortness of Air, Weakness, Other (Fatigue) Allergies and Home Medications Allergies Coded Allergies: adhesive tape (Verified Allergy, Intermediate, 02/21/20) BLISTERS AND RAW SKIN amlodipine (Verified Allergy, Unknown, 02/22/13) erythromycin base (Verified Allergy, Unknown, 02/22/13) Uncoded Allergies: ALMONDS (Adverse Reaction, Mild, 02/22/20) SHE HAS PAIN ALL OVER WHEN SHE EATS THEM Home Medications Albuterol Sulfate 1 Puff Puff, 2 PUFF INH Q4H PRN for SHORTNESS OF BREATH, (Reported) Atorvastatin Calcium 20 Mg Tablet, 20 MG PO DAILY, (Reported) Calcium Carbonate/Vitamin D3 1 Each Tablet, 1 EACH PO BID, (Reported) Cholecalciferol (Vitamin D3) 25 Mcg Capsule, 25 MCG PO DAILY, (Reported) Citalopram Hydrobromide 10 Mg Tablet, 10 MG PO DAILY, (Reported) Clonidine HCl 0.1 Mg Tablet, 0.1 MG PO BID, (Reported) Fish Oil/Dha/Epa 1 Each Capsule, 1 EACH PO DAILY, (Reported) Fluticasone Propionate 16 Gm [place].susp, 1 SPRAYS NS DAILY, (Reported) Fluticasone/Vilanterol 1 Each Blst.w.dev, 1 PUFF INH DAILY, (Reported) Glucosamine HCl 500 Mg Tablet, 1,000 MG PO BID, (Reported) Levothyroxine Sodium 50 Mcg Tablet, 50 MCG PO DAILY, (Reported) Montelukast Sodium 10 Mg Tablet, 10 MG PO DAILY, (Reported) Pantoprazole Sodium 40 Mg Tablet.dr, 40 MG PO DAILY, (Reported) Potassium Chloride 10 Meq Tablet.er, 10 MEQ PO DAILY@0700 Prescribed by: FABIENNE ZAMORA on 08/13/202053 Prednisone 20 Mg Tab, 20 MG PO DAILY@0700 Prescribed by: FABIENNE ZAMORA on 08/13/202053 Tiotropium Ophir 4 Gm Mist.inhal, 2 PUFF INH DAILY, (Reported) LAST FILLED 11-15-2019 #12/13 DAY SUPPLY Triamterene/Hydrochlorothiazid 1 Each Capsule, 1 CAP PO DAILY, (Reported) Patient Home Medication List Home Medication List Reviewed: Yes Review of Systems Review of Systems Constitutional: dizziness, fever, malaise, weakness EENTM: no symptoms reported Respiratory: cough, dyspnea on exertion, short of breath Cardiovascular: no symptoms reported Gastrointestinal: nausea, vomiting Genitourinary: dysuria : No Musculoskeletal: no symptoms reported Skin: no symptoms reported Psychiatric/Neurological: No Symptoms Reported All Other Systems Reviewed Negative Unless Noted: Yes Past Gaurwnf-Ntliqk-Ftdfex Hx Patient Social History 2nd Hand Smoke Exposure: No Recent Hopitalizations: No Immunizations Up To Date Tetanus Booster (TDap): Less than 5yrs PED Vaccines UTD: No Date of Pneumonia Vaccine: Jan 04, 2018 Date of Influenza Vaccine: Aug 14, 2018 Seasonal Allergies Seasonal Allergies: Yes Past Medical History Surgeries: Yes (FOOT SURGERY) Orthopedic Respiratory: Yes (CHRONIC COUGH) Asthma, Sleep Apnea Currently Using CPAP: Yes Currently Using BIPAP: No Cardiac: Yes Chronic Edema/Swelling, Deep Vein Thrombosis, High Cholesterol, Hypertension Neurological: Yes Neuropathy 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 Disorders: 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 Sexually Transmitted Disease: No Genitourinary: Yes Bladder Infection Gastrointestinal: No Musculoskeletal: Yes Arthritis, Rheumatoid Arthritis Endocrine: Yes (OBESITY) Hypothyroidsim, Diabetes, Non-Insulin dep HEENT: No Double Vision Loss of Vision: Denies Hearing Impairment: Denies Cancer: No Psychosocial: No Integumentary: No Blood Disorders: No Adverse Reaction/Blood Tranf: No Family Medical History Alcoholism G8 BROTHER G8 SISTER Alzheimer's disease 19 MOTHER Arthritis 19 FATHER Asthma G8 SISTER Cardiovascular disease 19 FATHER Cataracts 19 FATHER Coronary thrombosis 19 FATHER Deafness or hearing loss SON Diabetes mellitus 19 FATHER G8 SISTER G8 SISTER Drug abuse G8 SISTER Hypertension 19 FATHER G8 SISTER G8 SISTER Kidney disease 19 FATHER Respiratory disorder G8 SISTER G8 SISTER Seizure disorder SON Severe allergy SON Heart Disease, Diabetes, Hypertension Physical Exam-Suspected Sepsis Physical Exam Vital Signs Vital Signs - First Documented 10/01/20 15:00 Temp 38.3 Pulse 95 Resp 20 B/P (MAP) 156/80 (105) Pulse Ox 91 O2 Delivery Room Air Capillary Refill : Height, Weight, BMI Height: 5'6.00" Weight: 297lbs. 0.0oz. [id number]; 49.67 BMI Method:Stated General Appearance: WD/WN, Mild Distress Eyes: Bilateral Eye Normal Inspection, Bilateral Eye PERRL, Bilateral Eye EOMI Neck: Full Range of Motion Respiratory: No Accessory Muscle Use, No Respiratory Distress, Rhonci (Scattered mild rhonchi throughout both lung hurt with scant expiratory wheeze noted right posterior lung hurt) Cardiovascular: Regular Rate, Rhythm, No Murmur Gastrointestinal: Normal Bowel Sounds, Non Tender, Soft Extremity: Normal Capillary Refill, Normal Inspection, Normal Range of Motion Neurologic/Psychiatric: Alert, Oriented x3, No Motor/Sensory Deficits, Normal 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, 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 Norm as Tested Skin: normal color, warm/dry Focused Exam Lactate Level 10/01/20 15:23: Lactic Acid Level 0.97 Lactic Acid Level Laboratory Tests Test 10/01/20 15:23 Lactic Acid Level 0.97 MMOL/L (0.50-2.00) Progress/Results/Core Measures Suspected Sepsis Recent Fever Within 48 Hours: Yes Infection Criteria Present: Suspected New Infection New/Unexplained Altered Menta: No Within 3hrs of presentation: Admin fluids SIRS Temperature: Pulse: Respiratory Rate: Laboratory Tests 10/01/20 15:23: White Blood Count 4.1L Blood Pressure / Mean: 10/01/20 15:23: Lactic Acid Level 0.97 Laboratory Tests 10/01/20 15:23: Creatinine 0.93, Platelet Count 236, Total Bilirubin 0.5 Results/Orders Lab Results Laboratory Tests Test 10/01/20 15:20 10/01/20 15:23 Range/Units Urine Color YELLOW Urine Clarity CLEAR Urine pH 5.5 5-9 Urine Specific [place] 1.025 H 1.016-1.022 Urine Protein TRACE H NEGATIVE Urine Glucose (UA) TRACE H NEGATIVE Urine Ketones NEGATIVE NEGATIVE Urine Nitrite NEGATIVE NEGATIVE Urine Bilirubin NEGATIVE NEGATIVE Urine Urobilinogen 0.2 < = 1.0 MG/DL Urine Leukocyte Esterase NEGATIVE NEGATIVE Urine RBC (Auto) NEGATIVE NEGATIVE Urine RBC NONE /HPF Urine WBC NONE /HPF Urine Squamous Epithelial Cells 5-10 /HPF Urine Crystals NONE /LPF Urine Bacteria NEGATIVE /HPF Urine Casts NONE /LPF Urine Mucus NEGATIVE /LPF Urine Culture Indicated NO White Blood Count 4.1 L 4.3-11.0 10^3/uL Red Blood Count 4.55 3.80-5.11 10^6/uL Hemoglobin 13.6 11.5-16.0 g/dL Hematocrit 43 35-52 % Mean Corpuscular Volume 94 80-99 fL Mean Corpuscular Hemoglobin 30 25-34 pg Mean Corpuscular Hemoglobin Concent 32 32-36 g/dL Red Cell Distribution Width 14.6 H 10.0-14.5 % Platelet Count 236 130-400 10^3/uL Mean Platelet Volume 10.0 9.0-12.2 fL Immature Granulocyte % (Auto) 1 % Neutrophils (%) (Auto) 70 42-75 % Lymphocytes (%) (Auto) 17 12-44 % Monocytes (%) (Auto) 11 0-12 % Eosinophils (%) (Auto) 0 0-10 % Basophils (%) (Auto) 1 0-10 % Neutrophils # (Auto) 2.9 1.8-7.8 10^3/uL Lymphocytes # (Auto) 0.7 L 1.0-4.0 10^3/uL Monocytes # (Auto) 0.5 0.0-1.0 10^3/uL Eosinophils # (Auto) 0.0 0.0-0.3 10^3/uL Basophils # (Auto) 0.0 0.0-0.1 10^3/uL Immature Granulocyte # (Auto) 0.0 0.0-0.1 10^3/uL Sodium Level 137 135-145 MMOL/L Potassium Level 3.9 3.6-5.0 MMOL/L Chloride Level 101 98-107 MMOL/L Carbon Dioxide Level 28 21-32 MMOL/L Anion Gap 8 5-14 MMOL/L Blood Urea Nitrogen 16 7-18 MG/DL Creatinine 0.93 0.60-1.30 MG/DL Estimat Glomerular Filtration Rate > 60 BUN/Creatinine Ratio 17 Glucose Level 143 H 70-105 MG/DL Lactic Acid Level 0.97 0.50-2.00 MMOL/L Calcium Level 8.3 L 8.5-10.1 MG/DL Corrected Calcium 8.5 8.5-10.1 MG/DL Total Bilirubin 0.5 0.1-1.0 MG/DL Aspartate Amino Transf (AST/SGOT) 23 5-34 U/L Alanine Aminotransferase (ALT/SGPT) 29 0-55 U/L Alkaline Phosphatase 82 40-136 U/L C-Reactive Protein High Sensitivity 1.76 H 0.00-0.50 MG/DL Total Protein 7.1 6.4-8.2 GM/DL Albumin 3.8 3.2-4.5 GM/DL Procalcitonin 0.08 <0.10 NG/ML My Orders Orders - MARLENE COREY MD Cbc With Automated Diff (10/01/20 15:28) Comprehensive Metabolic Panel (10/01/20 15:28) Procalcitonin (Pct) (10/01/20 15:28) Hs C Reactive Protein (10/01/20 15:28) Erythrocyte Sedimentation Rate (10/01/20 15:28) Ua Culture If Indicated (10/01/20 15:28) Blood Culture (10/01/20 15:28) Lactic Acid Analyzer (10/01/20 15:28) Ed Iv/Invasive Line Start (10/01/20 15:28) Chest 1 View, Ap/Pa Only (10/01/20 15:28) Ns Iv 1000 Ml (Sodium Chloride 0.9%) (10/01/20 15:45) Ondansetron Injection (Zofran Injectio (10/01/20 15:45) Ns Iv 1000 Ml (Sodium Chloride 0.9%) (11/18/20 15:32) Ondansetron Injection (Zofran Injectio (10/01/20 15:33) Blood Culture (10/01/20 15:38) Medications Given in ED Current Medications Medications Dose Ordered Sig/Mayela Route Start Time Stop Time Status Last Admin Dose Admin Ondansetron HCl 8 mg ONCE ONCE IVP 10/01/20 15:45 10/01/20 15:46 DC 10/01/20 15:40 8 MG Vital Signs/I&O 10/01/20 15:00 Temp 38.3 Pulse 95 Resp 20 B/P (MAP) 156/80 (105) Pulse Ox 91 O2 Delivery Room Air Capillary Refill : Progress Note : Time: 15:24 Progress Note 60-year-old female presents to the emergency room with a chief complaint of fever and new diagnosis of coronavirus. Evaluation today includes a physical exam, basic laboratory evaluation including lactic acid procalcitonin sed rate blood cultures chest x-ray urinalysis. Patient is 91% on room air but with any amount of exertion becomes much more dyspneic. With oxygen supplementation at 2 L per nasal cannula she bounced up to 96/97%. Patient has a known history of myasthenia gravis and is currently on a prednisone taper, daily on 15 mg will decrease to 10 mg in 3 days. Blood pressure is good, cap refill is good patient is nontoxic-appearing but does appear sick. Actively dry heaving in the room complaining of nausea. 1643 Patient is resting comfortably, oxygen saturations noted to be 96% on 2 L per nasal cannula. Sed rate still pending at the time of this dictation. Other labs appear unremarkable. Negative procalcitonin mildly increased CRP normal looking chest x-ray, normal serum chemistries. Departure Impression Primary Impression: Coronavirus infection Additional Impression: Vomiting Qualified Codes: R11.2 - Nausea with vomiting, unspecified Disposition: 01 HOME, SELF-CARE Condition: Stable Departure-Patient Inst. Decision time for Depature: 16:51 Referrals: FABIENNE ZAMORA DO (PCP/Family) Primary Care Physician Patient Instructions: Nausea and Vomiting, Adult, Coronavirus Disease 2019 (COVID-19) (DC) Add. Discharge Instructions: Drink plenty of fluids to stay well-hydrated. Continue your home daily medications. Follow-up with your primary care physician tomorrow. Take the Zofran I have prescribed which is 8 mg, take this every 8 hours as needed for nausea and vomiting. Return to the emergency department if you have any worsening symptoms, shortness of breath, fever that is not resolved with Tylenol or any other emergent, concerning symptoms Scripts Ondansetron (Ondansetron Odt) 8 Mg Tab.rapdis 8 MG PO Q8H PRN for nausea, #15 TAB Prov: MARLENE COREY MD 10/01/20 MARLENE COREY MD Oct 01, 2020 15:24
[2020-10-01] MEDS ORDERED: NS IV 1000 ML 1,000 ML ONE (15:32)
[2020-10-01] MEDS ORDERED: ONDANSETRON 4 MG/2 ML (SDV) Z0FRAN ONE (15:33)
[2020-10-01 15:39] LABS: BILIRUBIN,URINE NEGATIVE (NEGATIVE); CLARITY,URINE CLEAR; COLOR,URINE YELLOW; GLUCOSE, URINE (UA) TRACE (NEGATIVE); KETONES,URINE NEGATIVE (NEGATIVE); LEUKOCYTE ESTERASE ,URINE NEGATIVE (NEGATIVE); NITRITE,URINE NEGATIVE (NEGATIVE); PH,URINE 5.5 (5-9); PROTEIN,URINE TRACE (NEGATIVE)
[2020-10-01] MEDS ORDERED: ONDANSETRON 4 MG/2 ML (SDV) Z0FRAN IVP ONE (15:45)
[2020-10-01] MEDS ORDERED: NS IV 1000 ML 1,000 ML IV SCH (15:45)
[2020-10-01 15:50] LABS: ALBUMIN 3.8 GM/DL (3.2-4.5); CHLORIDE 101 MMOL/L (98-107); POTASSIUM 3.9 MMOL/L (3.6-5.0); SODIUM 137 MMOL/L (135-145)
[2020-10-01 15:51] LABS: CALCIUM 8.3 MG/DL (8.5-10.1)
[2020-10-01 15:52] LABS: GLUCOSE 143 MG/DL (70-105)
[2020-10-01 15:53] LABS: TOTAL PROTEIN 7.1 GM/DL (6.4-8.2)
[2020-10-01 15:54] LABS: BILIRUBIN,TOTAL 0.5 MG/DL (0.1-1.0); CARBON DIOXIDE 28 MMOL/L (21-32)
[2020-10-01 15:56] LABS: ALKALINE PHOSPHATASE 82 U/L (40-136); CREATININE SERUM 0.93 MG/DL (0.60-1.30); GFR ESTIMATED > 60
[2020-10-01 15:57] LABS: BUN/CREATININE RATIO 17
[2020-10-01 15:59] LABS: ALANINE AMINOTRANSFERASE 29 U/L (0-55)
[2020-10-01 16:09] LABS: BASOPHILS % (AUTO) 1 % (0-10); EOSINOPHILS % (AUTO) 0 % (0-10); HEMATOCRIT 43 % (35-52); HEMOGLOBIN 13.6 g/dL (11.5-16.0); LYMPHOCYTES # (AUTO) 0.7 10^3/uL (1.0-4.0); LYMPHOCYTES % (AUTO) 17 % (12-44); MEAN CORPUSCULAR HEMOGLOBIN 30 pg (25-34); MEAN CORPUSCULAR HGB CONC 32 g/dL (32-36); MEAN CORPUSCULAR VOLUME 94 fL (80-99); MONOCYTES # (AUTO) 0.5 10^3/uL (0.0-1.0); MONOCYTES % (AUTO) 11 % (0-12); NEUTROPHILS # (AUTO) 2.9 10^3/uL (1.8-7.8); NEUTROPHILS % (AUTO) 70 % (42-75); PLATELET COUNT 236 10^3/uL (130-400); WHITE BLOOD COUNT 4.1 10^3/uL (4.3-11.0)
[2020-10-01 16:15] LABS: BACTERIA,URINE NEGATIVE /HPF
--- NOTE | 2020-10-01 16:40 | Diagnostic Imaging Report ---
Indication: Hypoxemia Portable chest 4:36 PM Heart size and pulmonary vascularity are normal. Lungs are clear. There are no effusions or pneumothoraces. IMPRESSION: Negative chest Dictated by: Dictated on workstation # [id number]
[2020-10-01] MEDS ORDERED: ONDA8TAB13 PO (16:46)
[2020-10-01 16:47] LABS: ERYTHROCYTE SEDIMENTATION RATE 30 MM/HR (0-30)
[2020-10-01 17:05] VITALS: BP 156/80
== END 2020-10-01 17:05 | disposition home or self-care (01) ==
LOC: EDUNIT# 14:35 → ER 14:37
DX: U07.1 COVID-19 (principal); R11.2 Nausea with vomiting, unspecified; E66.9 Obesity, unspecified; I10 Essential (primary) hypertension; J45.909 Unspecified asthma, uncomplicated; E78.00 Pure hypercholesterolemia, unspecified; E03.9 Hypothyroidism, unspecified; Z88.1 Allergy status to other antibiotic agents; Z88.8 Allergy status to other drugs, medicaments and biological substances; Z82.49 Family history of ischemic heart disease and other diseases of the circulatory system; Z83.3 Family history of diabetes mellitus; Z82.61 Family history of arthritis; Z68.42 Body mass index [BMI] 45.0-49.9, adult; Z79.890 Hormone replacement therapy; Z79.52 Long term (current) use of systemic steroids
CPT/HCPCS: 36415; 71045; 80053; 81000; 83605; 84145; 85025; 85652; 86141; 87040

== ENCOUNTER 2020-10-05 20:21 | Inpatient (IN) | payer BC ==
[~2020-10-05] VITALS: Ht 167 cm; Wt 144.2 kg
[~2020-10-05 20:21] MED LIST changes: -MONT10TA26 PO; +MONT10TA97 PO; +ONDA8TAB13 PO
[2020-10-05 21:32] LABS: BASOPHILS % (AUTO) 0 % (0-10); EOSINOPHILS % (AUTO) 0 % (0-10); HEMATOCRIT 42 % (35-52); HEMOGLOBIN 13.3 g/dL (11.5-16.0); LYMPHOCYTES # (AUTO) 0.6 10^3/uL (1.0-4.0); LYMPHOCYTES % (AUTO) 14 % (12-44); MEAN CORPUSCULAR HEMOGLOBIN 30 pg (25-34); MEAN CORPUSCULAR HGB CONC 32 g/dL (32-36); MEAN CORPUSCULAR VOLUME 93 fL (80-99); MEAN PLATELET VOLUME 10.1 fL (9.0-12.2); MONOCYTES # (AUTO) 0.3 10^3/uL (0.0-1.0); MONOCYTES % (AUTO) 6 % (0-12); NEUTROPHILS # (AUTO) 3.6 10^3/uL (1.8-7.8); NEUTROPHILS % (AUTO) 79 % (42-75); PLATELET COUNT 230 10^3/uL (130-400); WHITE BLOOD COUNT 4.5 10^3/uL (4.3-11.0)
[2020-10-05] MEDS ORDERED: LACTATED RINGERS 1,000 ML IV ONE (21:32)
[2020-10-05 21:44] LABS: ALBUMIN 3.5 GM/DL (3.2-4.5); CHLORIDE 100 MMOL/L (98-107); INR 0.9 (0.8-1.4); POTASSIUM 4.6 MMOL/L (3.6-5.0); PROTHROMBIN TIME PATIENT 12.6 SEC (12.2-14.7); SODIUM 136 MMOL/L (135-145)
--- NOTE | 2020-10-05 21:44 | Diagnostic Imaging Report ---
INDICATION: Sepsis. Covid positive. EXAMINATION: Portable erect AP chest at 9:06 p.m. FINDINGS: The heart size is within normal limits and the heart does seem somewhat less prominent than noted on the prior exam of 10/01/2020. However in the interval since the prior study, diffuse alveolar/interstitial pulmonary infiltrates have developed, bilaterally. These findings most likely signify pneumonia/atelectasis and are felt to be secondary to patient's diagnosis of Covid-19. There still no significant pleural effusion identified. The central pulmonary vascularity does not seem as striking as on the prior exam. The mediastinum is not widened. The osseous structures are intact. IMPRESSION: The appearance of the chest has worsened since the prior study as bilateral alveolar/interstitial pulmonary infiltrates have developed. This does suggest pneumonia/atelectasis. A follow-up study would be recommended for continued evaluation. Dictated by: Dictated on workstation # [id number]
[2020-10-05] MEDS ORDERED: FAMOTIDINE 20MG/2ML IV (PEPCID) IVP ONE (21:45)
[2020-10-05] MEDS ORDERED: ONDANSETRON 4 MG/2 ML (SDV) Z0FRAN IVP ONE (21:45)
[2020-10-05] MEDS ORDERED: ACETAMINOPHEN 500 MG TAB (TYLENOL) PO ONE (21:45)
[2020-10-05 21:46] LABS: CALCIUM 8.2 MG/DL (8.5-10.1)
[2020-10-05 21:47] LABS: GLUCOSE 176 MG/DL (70-105); TOTAL PROTEIN 7.4 GM/DL (6.4-8.2)
[2020-10-05 21:48] LABS: CARBON DIOXIDE 23 MMOL/L (21-32)
[2020-10-05 21:49] LABS: BILIRUBIN,TOTAL 0.5 MG/DL (0.1-1.0)
[2020-10-05 21:50] LABS: ALKALINE PHOSPHATASE 77 U/L (40-136)
[2020-10-05 21:51] LABS: CREATININE SERUM 0.85 MG/DL (0.60-1.30); GFR ESTIMATED > 60
[2020-10-05 21:52] LABS: BUN/CREATININE RATIO 16
--- NOTE | 2020-10-05 21:53 | ED General ---
General Chief Complaint: Respiratory Problems Stated Complaint: POSITIVE COVID 10/01, FEVER,VOMITING,WEAKNESS Nursing Triage Note: THIS POSITIVE COVID 19 PATIENT ARRIVES TONIGHT VIA WHEELCHAIR TO ROOM 07. PATIENT IS IMMEDIENTLY INCONTINENT OF LARGE AMOUNT OF LIQUID STOOL. STATES SHE HAS BEEN UNABLE TO GO AND HAS BEEN HAVING TERRIABLE ABDOMINAL PAIN OFF AND ON SINCE TUESDAY THIS WEEK. PATIENT TESTED POSITIVE ON THIS WEEK IS AN EMPLOYEE OF [employer] IN [place]. Nursing Sepsis Screen: No Definite Risk Source of Information: Patient Exam Limitations: No Limitations History of Present Illness Date Seen by Provider: Oct 05, 2020 Time Seen by Provider: 20:33 Initial Comments This 60-year-old woman with myasthenia gravis and morbid obesity presents to the emergency room with diagnosis of COVID-19 on Tuesday, October 01. She has since become very short of breath and complains of nausea and watery diarrhea. She is feeling very poorly. She has been using inhalers and nebulizers at home for her asthma but still has an O2 sat of 88% on room air during assessment. She takes prednisone daily and has steroid-induced diabetes. Allergies and Home Medications Allergies Coded Allergies: adhesive tape (Verified Allergy, Intermediate, 02/21/20) BLISTERS AND RAW SKIN amlodipine (Verified Allergy, Unknown, 02/22/13) erythromycin base (Verified Allergy, Unknown, 02/22/13) Uncoded Allergies: ALMONDS (Adverse Reaction, Mild, 02/22/20) SHE HAS PAIN ALL OVER WHEN SHE EATS THEM Home Medications Albuterol Sulfate 1 Puff Puff, 2 PUFF INH Q4H PRN for SHORTNESS OF BREATH, (Reported) Atorvastatin Calcium 20 Mg Tablet, 20 MG PO DAILY, (Reported) Calcium Carbonate/Vitamin D3 1 Each Tablet, 1 EACH PO BID, (Reported) Cholecalciferol (Vitamin D3) 25 Mcg Capsule, 25 MCG PO DAILY, (Reported) Citalopram Hydrobromide 10 Mg Tablet, 10 MG PO DAILY, (Reported) Clonidine HCl 0.1 Mg Tablet, 0.1 MG PO BID, (Reported) Fish Oil/Dha/Epa 1 Each Capsule, 1 EACH PO DAILY, (Reported) Fluticasone Propionate 16 Gm [place].susp, 1 SPRAYS NS DAILY, (Reported) Fluticasone/Vilanterol 1 Each Blst.w.dev, 1 PUFF INH DAILY, (Reported) Glucosamine HCl 500 Mg Tablet, 1,000 MG PO BID, (Reported) Levothyroxine Sodium 50 Mcg Tablet, 50 MCG PO DAILY, (Reported) Montelukast Sodium 10 Mg Tablet, 10 MG PO DAILY, (Reported) Ondansetron 8 Mg Tab.rapdis, 8 MG PO Q8H PRN for nausea Prescribed by: MARLENE COREY on 10/01/20 164 Pantoprazole Sodium 40 Mg Tablet.dr, 40 MG PO DAILY, (Reported) Potassium Chloride 10 Meq Tablet.er, 10 MEQ PO DAILY@0700 Prescribed by: FABIENNE ZAMORA on 08/13/202053 Prednisone 20 Mg Tab, 20 MG PO DAILY@0700 Prescribed by: FABIENNE ZAMORA on 08/13/202053 Tiotropium Kelliher 4 Gm Mist.inhal, 2 PUFF INH DAILY, (Reported) LAST FILLED 11-15-2019 #12/13 DAY SUPPLY Triamterene/Hydrochlorothiazid 1 Each Capsule, 1 CAP PO DAILY, (Reported) Patient Home Medication List Home Medication List Reviewed: Yes Review of Systems Review of Systems Constitutional: see HPI, fever EENTM: no symptoms reported Respiratory: see HPI Cardiovascular: no symptoms reported Gastrointestinal: see HPI Genitourinary: no symptoms reported : No Musculoskeletal: no symptoms reported Skin: no symptoms reported Psychiatric/Neurological: No Symptoms Reported Hematologic/Lymphatic: No Symptoms Reported Immunological/Allergic: no symptoms reported Past Wkdmrpm-Zcbttt-Bircua Hx Past Med/Social Hx: Reviewed Nursing Past Med/Soc Hx Patient Social History Alcohol Use: Denies Use Recreational Drug Use: No 2nd Hand Smoke Exposure: No Recent Foreign Travel: No Contact w/Someone Who Travel: No Recent Infectious Disease Expo: No Recent Hopitalizations: Yes ( FOR INPATIENT REHAB) Physical Abuse: No Sexual Abuse: No Mistreated: No Fear: No Immunizations Up To Date Tetanus Booster (TDap): Less than 5yrs PED Vaccines UTD: Yes Date of Pneumonia Vaccine: Jan 04, 2018 Date of Influenza Vaccine: Sep 12, 2020 Seasonal Allergies Seasonal Allergies: Yes Past Medical History Surgeries: Yes (FOOT SURGERY,LEFT LUMPECTOMY, R KNEE MINISCUS REPAIR) Orthopedic Respiratory: Yes (CHRONIC COUGH) Asthma, Sleep Apnea Currently Using CPAP: Yes Currently Using BIPAP: No Cardiac: Yes Chronic Edema/Swelling, Deep Vein Thrombosis, High Cholesterol, Hypertension Neurological: Yes Neuropathy 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 Disorders: No [employer] History: Menopausal Sexually Transmitted Disease: No Genitourinary: Yes Bladder Infection Gastrointestinal: No Musculoskeletal: Yes Arthritis, Rheumatoid Arthritis Endocrine: Yes (OBESITY) Hypothyroidsim, Diabetes, Non-Insulin dep HEENT: No Double Vision Loss of Vision: Denies Hearing Impairment: Denies Cancer: No Psychosocial: No Integumentary: No Blood Disorders: No Adverse Reaction/Blood Tranf: No Family Medical History Alcoholism G8 BROTHER G8 SISTER Alzheimer's disease 19 MOTHER Arthritis 19 FATHER Asthma G8 SISTER Cardiovascular disease 19 FATHER Cataracts 19 FATHER Coronary thrombosis 19 FATHER Deafness or hearing loss SON Diabetes mellitus 19 FATHER G8 SISTER G8 SISTER Drug abuse G8 SISTER Hypertension 19 FATHER G8 SISTER G8 SISTER Kidney disease 19 FATHER Respiratory disorder G8 SISTER G8 SISTER Seizure disorder SON Severe allergy SON Heart Disease, Diabetes, Hypertension Physical Exam-Suspected Sepsis Physical Exam Vital Signs Vital Signs - First Documented 10/05/20 20:45 Temp 38.3 Pulse 114 Resp 22 B/P (MAP) 143/67 (92) Pulse Ox 96 O2 Delivery Nasal Cannula O2 Flow Rate 2.00 Capillary Refill : Less Than 3 Seconds Blood Pressure Mean: 92 Height, Weight, BMI Height: 5'6.00" Weight: 297lbs. 0.0oz. 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 Norm as Tested Skin: normal color, warm/dry Focused Exam Lactate Level 10/05/20 21:12: Lactic Acid Level 1.01 Lactic Acid Level Progress/Results/Core Measures Suspected Sepsis Recent Fever Within 48 Hours: Yes Infection Criteria Present: None New/Unexplained Altered Menta: No Sepsis Screen: No Definite Risk SIRS Temperature: Pulse: 114 Respiratory Rate: 22 Laboratory Tests 10/05/20 21:12: White Blood Count 4.5 10/06/20 03:04: White Blood Count 4.3 Blood Pressure 143 /67 Mean: 92 10/05/20 21:12: Lactic Acid Level 1.01 Laboratory Tests 10/05/20 21:12: Creatinine 0.85, INR Comment 0.9, Platelet Count 230, Total Bilirubin 0.5 10/06/20 03:04: Creatinine 0.97, Platelet Count 205, Total Bilirubin 0.5 Results/Orders Lab Results Laboratory Tests Test 10/05/20 21:12 10/06/20 03:04 Range/Units White Blood Count 4.5 4.3 4.3-11.0 10^3/uL Red Blood Count 4.47 4.36 3.80-5.11 10^6/uL Hemoglobin 13.3 13.0 11.5-16.0 g/dL Hematocrit 42 42 35-52 % Mean Corpuscular Volume 93 97 80-99 fL Mean Corpuscular Hemoglobin 30 30 25-34 pg Mean Corpuscular Hemoglobin Concent 32 31 L 32-36 g/dL Red Cell Distribution Width 14.4 14.5 10.0-14.5 % Platelet Count 230 205 130-400 10^3/uL Mean Platelet Volume 10.1 9.9 9.0-12.2 fL Immature Granulocyte % (Auto) 1 1 % Neutrophils (%) (Auto) 79 H 84 H 42-75 % Lymphocytes (%) (Auto) 14 11 L 12-44 % Monocytes (%) (Auto) 6 4 0-12 % Eosinophils (%) (Auto) 0 0 0-10 % Basophils (%) (Auto) 0 0 0-10 % Neutrophils # (Auto) 3.6 3.7 1.8-7.8 10^3/uL Lymphocytes # (Auto) 0.6 L 0.5 L 1.0-4.0 10^3/uL Monocytes # (Auto) 0.3 0.2 0.0-1.0 10^3/uL Eosinophils # (Auto) 0.0 0.0 0.0-0.3 10^3/uL Basophils # (Auto) 0.0 0.0 0.0-0.1 10^3/uL Immature Granulocyte # (Auto) 0.0 0.1 0.0-0.1 10^3/uL Prothrombin Time 12.6 12.2-14.7 SEC INR Comment 0.9 0.8-1.4 Activated Partial Thromboplast Time 26 24-35 SEC D-Dimer 1.21 H 0.00-0.49 UG/ML Sodium Level 136 139 135-145 MMOL/L Potassium Level 4.6 4.4 3.6-5.0 MMOL/L Chloride Level 100 102 98-107 MMOL/L Carbon Dioxide Level 23 24 21-32 MMOL/L Anion Gap 13 13 5-14 MMOL/L Blood Urea Nitrogen 14 14 7-18 MG/DL Creatinine 0.85 0.97 0.60-1.30 MG/DL Estimat Glomerular Filtration Rate > 60 58 BUN/Creatinine Ratio 16 14 Glucose Level 176 H 228 H 70-105 MG/DL Lactic Acid Level 1.01 0.50-2.00 MMOL/L Calcium Level 8.2 L 8.3 L 8.5-10.1 MG/DL Corrected Calcium 8.6 8.7 8.5-10.1 MG/DL Total Bilirubin 0.5 0.5 0.1-1.0 MG/DL Aspartate Amino Transf (AST/SGOT) 32 22 5-34 U/L Alanine Aminotransferase (ALT/SGPT) 23 21 0-55 U/L Alkaline Phosphatase 77 79 40-136 U/L Lactate Dehydrogenase 473 H 125-220 U/L C-Reactive Protein High Sensitivity 15.75 H 0.00-0.50 MG/DL Total Protein 7.4 7.0 6.4-8.2 GM/DL Albumin 3.5 3.5 3.2-4.5 GM/DL Procalcitonin 0.10 H <0.10 NG/ML Phosphorus Level 3.6 2.3-4.7 MG/DL Magnesium Level 2.0 1.6-2.4 MG/DL My Orders Orders - REGINA HORTON MD Cbc With Automated Diff (10/05/20 20:33) Comprehensive Metabolic Panel (10/05/20 20:33) Blood Culture (10/05/20 20:) Sputum Culture (10/05/20 20:) Urinalysis (10/05/20 20:) Urine Culture (10/05/20 20:) Protime With Inr (10/05/20 20:) Partial Thromboplastin Time (10/05/20 20:33) Chest 1 View, Ap/Pa Only (10/05/20 20:33) Ed Iv/Invasive Line Start (10/05/20:33) Ed Iv/Invasive Line Start (10/05/20 20:) Vital Signs Adult Sepsis Patie Q15M (10/05/20 20:33) O2 (10/05/20 20:33) Remove Rings In Anticipation O (10/05/20:) Lactic Acid Analyzer (10/05/20:) Procalcitonin (Pct) (10/05/20 20:33) Hs C Reactive Protein (10/05/20:) LDH (10/05/20 20:33) Ondansetron Injection (Zofran Injectio (10/05/20 21:45) Famotidine Injection (Pepcid Injection) (10/05/20 21:45) Dexamethasone Injection (Decadron Inje (10/05/20 21:45) Albuterol Inhaler (Ventolin Hfa) (10/05/20 22:00) Acetaminophen Tablet (Tylenol Tablet) (10/05/20 21:45) Lactated Ringers (Lr 1000 Ml Iv Solution (10/05/20 21:32) Fibrin Degradation Products (10/05/20 21:41) Piperacillin Sodium/Tazobactam (Zosyn Vi (10/05/20 22:00) Cefepime Injection (Maxipime Injection) (10/05/20 22:15) Cefepime Injection (Maxipime Injection) (10/05/20 22:01) Water (Sterile) For Injection (Sterile W (10/05/20 22:01) Ekg Tracing (10/05/20 22:04) Monitor-Rhythm Ecg Trace Only (10/05/20 22:04) Ct Angio Chest W (10/05/20 22:19) Iohexol Injection (Omnipaque 350 Mg/Ml 1 (10/05/20 23:15) Received Contrast (Hold Metformin- Contr (10/05/20 23:15) Sodium Chloride Flush (Catheter Flush Sy (10/05/20 23:15) Ns (Ivpb) (Sodium Chloride 0.9% Ivpb Bag (10/05/20 23:15) Enoxaparin Injection (Lovenox Injection) (10/06/20 00:00) Enoxaparin Injection (Lovenox Injection) (10/06/20 00:00) Medications Given in ED Current Medications Medications Dose Ordered Sig/Mayela Route Start Time Stop Time Status Last Admin Dose Admin Acetaminophen 1,000 mg ONCE ONCE PO 10/05/20 21:45 10/05/20 21:46 DC 10/05/20 22:02 1,000 MG Cefepime HCl 2000 mg/Sterile Water 20 ml @ 240 mls/hr ONCE ONCE IV 10/05/20 22:15 10/05/20 22:19 DC 10/05/20 22:04 240 MLS/HR Dexamethasone Sodium Phosphate 6 mg ONCE ONCE IV 10/05/20 21:45 10/05/20 21:46 DC 10/05/20 22:03 6 MG Enoxaparin Sodium 30 mg ONCE ONCE SC 10/06/20 00:00 10/06/20 00:01 DC 10/06/20 00:46 30 MG Enoxaparin Sodium 120 mg ONCE ONCE SC 10/06/20 00:00 10/06/20 00:01 DC 10/06/20 00:45 120 MG Famotidine 20 mg ONCE ONCE IVP 10/05/20 21:45 10/05/20 21:46 DC 10/05/20 22:03 20 MG Iohexol 100 ml ONCE ONCE IV 10/05/20 23:15 10/05/20 23:16 DC 10/05/20 23:18 95 ML Lactated Ringer's 1,000 ml @ 0 mls/hr Q0M ONCE IV 10/05/20 21:32 10/05/20 21:35 DC 10/05/20 22:03 1,000 MLS/HR Ondansetron HCl 8 mg ONCE ONCE IVP 10/05/20 21:45 10/05/20 21:46 DC 10/05/20 22:02 8 MG Sodium Chloride 10 ml NEEDED PRN IV 10/05/20 23:15 10/05/20 23:19 10 ML Sodium Chloride 100 ml ONCE ONCE IV 10/05/20 23:15 10/05/20 23:16 DC 10/05/20 23:19 80 ML Vital Signs/I&O 10/05/20 10/05/20 10/05/20 10/06/20 20:45 20:45 22:02 00:53 Temp 38.3 38.3 Pulse 114 81 Resp 22 27 B/P (MAP) 143/67 (92) 119/64 Pulse Ox 96 96 95 O2 Delivery Nasal Cannula Nasal Cannula O2 Flow Rate 2.00 2.00 2.00 10/06/20 10/06/20 10/06/20 10/06/20 01:07 01:08 01:23 01:35 Temp 36.6 Pulse 87 79 114 Resp 22 B/P (MAP) 130/91 Pulse Ox 95 94 O2 Delivery Nasal Cannula Nasal Cannula O2 Flow Rate 3.00 3.00 10/06/20 10/06/20 10/06/20 01:40 03:12 04:00 Pulse Ox 92 92 O2 Delivery Nasal Cannula Nasal Cannula Nasal Cannula O2 Flow Rate 3.00 3.00 3.00 10/06/20 00:00 Intake Total 1020 ml Balance 1020 ml Capillary Refill : Less Than 3 Seconds Blood Pressure Mean: 92 Progress Note #1: Time: 22:02 Progress Note Patient was seen and examined. Inhaler and dexamethasone ordered for asthma ex acerbation. IV fluids ordered as she appears dry and has had watery diarrhea. Labs are pending. Due to appearance of chest and her high risk status, broad- spectrum antibiotics were initiated after discussing with Dr. Zamora. Patient will be admitted to the ICU as she is extremely high risk with morbid obesity, myasthenia gravis, asthma, etc. Progress Note #2: Progress Note Lovenox was orders as CTA revealed probable PE. ECG Initial ECG Impression Date: Oct 05, 2020 Initial ECG Impression Time: 21:22 Initial ECG Rate: 97 Initial ECG Rhythm: Normal Sinus Comment Sinus rhythm with no STEMI. Borderline nondiagnostic ST depression. Diagnostic Imaging Diagonstic Imaging: Xray Plain Films/CT/US/NM/MRI: chest Comments Chest x-ray viewed by me and report reviewed. See report below: NAME: BINDU LAMBERT [employer] REC#: [id number] PT STATUS: REG ER : 1960 PHYSICIAN: REGINA HORTON MD ADMIT DATE: 10/05/20/ER Draft Date of Exam:10/05/20 CHEST 1 VIEW, AP/PA ONLY INDICATION: Sepsis. Covid positive. EXAMINATION: Portable erect AP chest at 9:06 p.m. FINDINGS: The heart size is within normal limits and the heart does seem somewhat less prominent than noted on the prior exam of 10/01/2020. However in the interval since the prior study, diffuse alveolar/interstitial pulmonary infiltrates have developed, bilaterally. These findings most likely signify pneumonia/atelectasis and are felt to be secondary to patient's diagnosis of Covid-19. There still no significant pleural effusion identified. The central pulmonary vascularity does not seem as striking as on the prior exam. The mediastinum is not widened. The osseous structures are intact. IMPRESSION: The appearance of the chest has worsened since the prior study as bilateral alveolar/interstitial pulmonary infiltrates have developed. This does suggest pneumonia/atelectasis. A follow-up study would be recommended for continued evaluation. Dictated on workstation # [id number] Dict: 10/05/202134 Trans: 10/05/202142 [id number] Interpreted by: ROSANA RHODES MD Diagonstic Imaging: CT Plain Films/CT/US/NM/MRI: chest Comments CT angio chest viewed by me and [facility] report reviewed. Infiltrates c/w COVID. PE probable in right lung base. Departure Communication (Admissions) Time/Spoke to Admitting Phy: 21:40 Dr. Zamora Impression Primary Impression: COVID-19 Additional Impressions: Hypoxia Myasthenia gravis Asthma exacerbation Qualified Codes: J45.901 - Unspecified asthma with (acute) exacerbation Diarrhea Qualified Codes: R19.7 - Diarrhea, unspecified Nausea Pulmonary embolism Qualified Codes: I26.99 - Other pulmonary embolism without acute cor pulmonale Disposition: ADMITTED INPATIENT Condition: Improved Admissions Decision to Admit Reason: Admit from ER (General) Decision to Admit/Date: Oct 05, 2020 Time/Decision to Admit Time: 20:40 Departure-Patient Inst. Referrals: FABIENNE ZAMORA DO (PCP/Family) Primary Care Physician REGINA HORTON MD Oct 05, 2020 21:53
[2020-10-05 21:54] LABS: ALANINE AMINOTRANSFERASE 23 U/L (0-55)
[2020-10-05] MEDS ORDERED: PIPERACILLIN SODIUM/TAZOBACTAM 4.5 GM in NS (IVPB) 100 ML IV ONE (22:00)
[2020-10-05] MEDS ORDERED: WATER (STERILE) FOR INJECTION 20 ML ONE (22:01)
[2020-10-05] MEDS ORDERED: CEFEPIME 2 GM/20 ML (MAXIPIME) VIAL ONE (22:01)
[2020-10-05] MEDS: RT-ALBUTEROL INHALER HFA (VENTOLIN HFA) 18 GM IH SCH (22:03)
[2020-10-05] MEDS ORDERED: CEFEPIME INJECTION 2,000 MG in WATER (STERILE) FOR INJECTION 20 ML IV ONE (22:15)
[2020-10-05] MEDS ORDERED: HOLD METFORMIN - RECEIVED CONTRAST 20 ML VIAL IV SCH (23:15)
[2020-10-05] MEDS ORDERED: IOHEXOL 350 MG/ML 100 ML (OMNIPAQUE 350) VIAL IV ONE (23:15)
[2020-10-05] MEDS ORDERED: CATHETER FLUSH 10 ML SYR IV PRN (23:15)
[2020-10-05] MEDS ORDERED: NS 100 ML (IVPB) BAG IV ONE (23:15)
[2020-10-06] MEDS ORDERED: ENOXAPARIN 30 MG/0.3 ML (LOVENOX) SYR SC ONE
[2020-10-06] MEDS ORDERED: ENOXAPARIN 60 MG/0.6 ML (LOVENOX) SYR SC ONE
[2020-10-06] MEDS ORDERED: ACETAMINOPHEN 500 MG TAB (TYLENOL) PO PRN (01:15)
[2020-10-06] MEDS ORDERED: ONDANSETRON 4 MG/2 ML (SDV) Z0FRAN IVP PRN (01:15)
[2020-10-06] MEDS: RT-ALBUTEROL INHALER HFA (VENTOLIN HFA) 18 GM IH SCH ×5 (03:11→22:27)
[2020-10-06 03:40] LABS: BASOPHILS % (AUTO) 0 % (0-10); EOSINOPHILS % (AUTO) 0 % (0-10); HEMATOCRIT 42 % (35-52); LYMPHOCYTES # (AUTO) 0.5 10^3/uL (1.0-4.0); LYMPHOCYTES % (AUTO) 11 % (12-44); MEAN CORPUSCULAR HEMOGLOBIN 30 pg (25-34); MEAN CORPUSCULAR HGB CONC 31 g/dL (32-36); MEAN CORPUSCULAR VOLUME 97 fL (80-99); MEAN PLATELET VOLUME 9.9 fL (9.0-12.2); MONOCYTES # (AUTO) 0.2 10^3/uL (0.0-1.0); MONOCYTES % (AUTO) 4 % (0-12); NEUTROPHILS # (AUTO) 3.7 10^3/uL (1.8-7.8); NEUTROPHILS % (AUTO) 84 % (42-75); PLATELET COUNT 205 10^3/uL (130-400); WHITE BLOOD COUNT 4.3 10^3/uL (4.3-11.0)
[2020-10-06 03:55] LABS: ALBUMIN 3.5 GM/DL (3.2-4.5); POTASSIUM 4.4 MMOL/L (3.6-5.0)
[2020-10-06 03:56] LABS: CALCIUM 8.3 MG/DL (8.5-10.1)
[2020-10-06 03:59] LABS: BILIRUBIN,TOTAL 0.5 MG/DL (0.1-1.0)
[2020-10-06 04:01] LABS: CREATININE SERUM 0.97 MG/DL (0.60-1.30); PHOSPHORUS 3.6 MG/DL (2.3-4.7)
[2020-10-06] MEDS ORDERED: NS (IVPB) 250 ML ONE ×3 (04:04→04:05)
[2020-10-06] MEDS ORDERED: VANCOMYCIN 1000 MG/VIAL ONE ×3 (04:05)
[2020-10-06] MEDS: LACTATED RINGERS 1,000 ML IV SCH ×4 (04:30→21:00)
[2020-10-06] MEDS: VANCOMYCIN 1 GM/NS 250 ML IVPB IV SCH ×6 (04:31→06:38)
[2020-10-06] MEDS: LEVOFLOXACIN 750 MG/D5W 150 ML PRE-MIX IV SCH (04:31)
[2020-10-06] MEDS: CEFEPIME 1,000 MG/SWFI 10 ML IV PUSH IV SCH ×6 (06:16→17:23)
[2020-10-06] MEDS: methylPREDNISolone 125 MG (Solu-MEDROL) VIAL IVP SCH ×3 (06:17→17:23)
--- NOTE | 2020-10-06 06:29 | Diagnostic Imaging Report ---
PROCEDURE: CT angiography of the chest with contrast. TECHNIQUE: Multiple contiguous axial images were obtained through the chest after uneventful bolus administration of intravenous contrast. 3D reconstructed CTA MIP acquisitions were also performed. Auto Exposure Controls were utilized during the CT exam to meet ALARA standards for radiation dose reduction. INDICATION: Cough, dyspnea and Covid-19 positive. Comparison is made to the examination of 06/25/2020. FINDINGS: There is suboptimal filling of pulmonary arteries, however there does appear to be filling defect within right lower lobe pulmonary arterial branches indicating pulmonary embolism. Thoracic aorta is unremarkable. There has been development of moderate diffuse patchy mixed groundglass and airspace densities in both lungs with an upper lobe predominance. There is no significant pleural fluid. Mildly prominent mediastinal lymph nodes are noted. There are coronary artery calcifications. IMPRESSION: Study is limited due to contrast opacification, however findings are consistent with pulmonary embolism involving at least the right lower lobe. Patchy bilateral infiltrates are compatible with viral type pneumonitis or atypical pneumonia. Dictated by: Dictated on workstation # [id number]
[2020-10-06] MEDS ORDERED: CATHETER FLUSH 10 ML SYR IV PRN (07:00)
--- NOTE | 2020-10-06 11:09 | History & Physical-Hospitalist ---
History of Present Illness HPI/Chief Complaint CC: SOB due to Covid-19 HPI: This is a 60yoWF clinic Pt of [facility] with a new diagnosis of Myasthenia Gravis 2.5 months ago, sent up to [facility] and received plasmaphoresis five rounds, who presents after the rest of her family was tested for Covid and she became more and more symptomatic with hypoxia. She has been placed on Remdesivir protocol with Decadron and Convalescent plasma and will receive close monitoring due to high risk for complete respiratory failure and ventilator dependence due to morbid obesity, RALPH, Myasthenia Gravis with respiratory issues along with her chronic asthma. Source: patient Exam Limitations: clinical condition Date Seen 10/06/20 Time Seen by a Provider: 10:00 Attending Physician Shayla Jimenez DO PCP Shayla Jimenez DO Referring Physician Date of Admission Oct 06, 2020 at 00:11 Home Medications & Allergies Home Medications Reviewed patient Home Medication Reconciliation performed by pharmacy medication reconciliations oscillograph technician and/or nursing. Patients Allergies have been reviewed. Allergies Allergies Coded Allergies adhesive tape (Verified Allergy, Intermediate, 02/21/20) BLISTERS AND RAW SKIN amlodipine (Verified Allergy, Unknown, 02/22/13) erythromycin base (Verified Allergy, Unknown, 02/22/13) Uncoded Allergies ALMONDS ( Adverse Reaction, Mild, 02/22/20) SHE HAS PAIN ALL OVER WHEN SHE EATS THEM Past Ugwdiuf-Dukszg-Rxbkzd Hx Past Med/Social Hx: Reviewed Nursing Past Med/Soc Hx, Reviewed and Corrections made Patient Social History Marrital Status: Employed/Student: employed Alcohol Use: Denies Use Recreational Drug Use: No Smoking Status: Never a Smoker 2nd Hand Smoke Exposure: No Recent Foreign Travel: No Contact w/other who traveled: No Recent Hopitalizations: Yes ( FOR INPATIENT REHAB) Recent Infectious Disease Expo: No Immunizations Up To Date Tetanus Booster (TDap): Less than 5yrs Pediatric: Yes Date of Pneumonia Vaccine: Jan 04, 2018 Date of Influenza Vaccine: Sep 12, 2020 Seasonal Allergies Seasonal Allergies: Yes Past Medical History Surgeries: Orthopedic Respiratory: Asthma, Chronic Bronchitis, Pneumonia, Sleep Apnea Currently Using CPAP: Yes Currently Using BIPAP: No Cardiac: Chronic Edema/Swelling, Deep Vein Thrombosis, High Cholesterol, Hypertension Neurological: Neuropathy Myasthenia gravis 07/2020 [facility] 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: No Sexually Transmitted Disease: No Menopausal Genitourinary: Bladder Infection Musculoskeletal: Arthritis, Rheumatoid Arthritis Endocrine: Hypothyroidsim, Diabetes, Non-Insulin dep HEENT: Double Vision Loss of Vision: Denies Hearing Impairment: Denies History of Blood Disorders: No Adverse Reaction to Blood [place]: No Family History Alcoholism G8 BROTHER G8 SISTER Alzheimer's disease 19 MOTHER Arthritis 19 FATHER Asthma G8 SISTER Cardiovascular disease 19 FATHER Cataracts 19 FATHER Coronary thrombosis 19 FATHER Deafness or hearing loss SON Diabetes mellitus 19 FATHER G8 SISTER G8 SISTER Drug abuse G8 SISTER Hypertension 19 FATHER G8 SISTER G8 SISTER Kidney disease 19 FATHER Respiratory disorder G8 SISTER G8 SISTER Seizure disorder SON Severe allergy SON Heart Disease, Diabetes, Hypertension Review of Systems Constitutional: see HPI, fever, malaise, weakness Respiratory: cough, dyspnea on exertion, short of breath Physical Exam Physical Exam Vital Signs Vital Signs - First Documented 10/05/20 20:45 Temp 38.3 Pulse 114 Resp 22 B/P (MAP) 143/67 (92) Pulse Ox 96 O2 Delivery Nasal Cannula O2 Flow Rate 2.00 Capillary Refill : Less Than 3 Seconds Height, Weight, BMI Height: 5'6.00" Weight: 297lbs. 0.0oz. 134.240912ky; 55.57 BMI Method:Stated General Appearance: Anxious, Chronically ill, Mild Distress, Obese Eyes: Right Eye Normal Inspection, Right Eye PERRL HEENT: PERRL/EOMI, Normal ENT Inspection, Pharynx Normal, Moist Mucous Membranes Neck: Full Range of Motion, Normal Inspection, Non Tender Respiratory: Chest Non Tender, Lungs Clear, No Respiratory Distress, Accessory Muscle Use, Decreased Breath Sounds Cardiovascular: Regular Rate, Rhythm, No Edema, No Gallop, No JVD, No Murmur, Normal Peripheral Pulses Gastrointestinal: Normal Bowel Sounds, No Organomegaly, No Pulsatile Mass, Non Tender, Soft Back: Normal Inspection, No CVA Tenderness, No Vertebral Tenderness Extremity: Normal Capillary Refill, Normal Inspection, Normal Range of Motion, Non Tender, No Calf Tenderness, No Pedal Edema Neurologic/Psychiatric: Alert, Oriented x3, No Motor/Sensory Deficits, Normal Mood/Affect Skin: Normal Color, Warm/Dry Lymphatic: No Adenopathy Results Results/Procedures Labs Laboratory Tests 10/05/20 21:12 10/06/20 03:04 10/07/20 02:55 Patient resulted labs reviewed. Assessment/Plan Admission Diagnosis Assessment: COVID-19 PNA Hypoxia Asthma Myasthenia gravis Obesity RALPH on CPAP DM HTN HLP Plan: COVID-19 treatment O2 Supportive care High risk for intubation Admission Status: Inpatient Order (span 2 midnights) Reason for Inpatient Admission: COVID-19 Clinical Quality Measures DVT/VTE Risk/Contraindication: Risk Factor Score Per Nursin RFS Level Per Nursing on Admit: 4+=Very High SHAYLA JIMENEZ DO Oct 06, 2020 11:09
[2020-10-06] MEDS: ENOXAPARIN 300 MG/3 ML (LOVENOX) MULTI-DOSE VIAL SQ SCH (13:09)
--- NOTE | 2020-10-06 14:45 | NUR ---
BEDSIDE VITALS PER eICU ARE NIF -15 MEP -40 RR35 VC 1.6 PATIENT STATES THAT HER NUMBERS ARE NOT GOING TO GO WELL BECAUSE IT HURTS TO BREATHE BUT WILL GIVE IT HER BEST SHOT.
[2020-10-06] MEDS: VANCOMYCIN 1250 MG/NS 250 ML IVPB IV SCH ×2 (14:59)
[2020-10-06 15:04] LABS: ABG BASE EXCESS 1.3 MMOL/L (-2.5-2.5); ABG OXYGEN SATURATION 95 % (94-100); ABG PCO2 39 MMHG (35-45); ABG PH 7.42 (7.37-7.43); ABG PO2 64 MMHG (79-93); ABG TCO2 26.8 MMOL/L (21.0-31.0)
[2020-10-06 15:05] LABS: ALLENS TEST POSITIVE; INSPIRED O2 2 L; PATIENT TEMP 95.7; VENTILATOR NO
--- NOTE | 2020-10-06 15:14 | NUR ---
During care rounds, it was noted that pt is currently on Regular diet. Note pt has hx of DM, per chart review. Would recommend switching to consistent CHO diet, for better glucose control. Would recommend adding nutrition supplementation of Glucerna with meals TID, for increased kcal intake. Provides 220 kcal and 10g Pro per serving. Will continue to follow and reassess as pt needs, intake, and status change. Cristy Deleon MS RD LD [phone] (cell)
[2020-10-06] MEDS ORDERED: LOSA50TA63 PO (15:30)
[2020-10-06] MEDS ORDERED: CITA20TA9 PO (15:30)
[2020-10-06] MEDS ORDERED: PRD10T PO (15:30)
[2020-10-06] MEDS ORDERED: ONDA8TAB13 PO (15:30)
[2020-10-06] MEDS ORDERED: POTA10TA PO (15:30)
[2020-10-06] MEDS ORDERED: MELA5TAB14 PO (15:32)
[2020-10-06] MEDS ORDERED: CETI10TA4 PO (15:32)
--- NOTE | 2020-10-06 15:33 | NUR ---
UNABLE TO REACH THE PT AT THIS TIME- HOWEVER I WAS ABLE TO CONTACT PTS (ANTONIETA) AND I WENT THRU THE EXT MED HISTORY TO COMPLETE THE MED REC ANTONIETA WAS ABLE TO LIST ALL THE PTS MEDICATIONS WELL WHEN/HOW SHE TAKES EACH CLONIDINE- DIRECTIONS SHOW 1 TAB TID HOWEVER PT ONLY TAKES 1 TAB BID HUMIRA IS ON THE EXT MED HISTORY BUT ANTNOIETA LET ME KNOW THAT BINDU HAS STOPPED TAKING IT (HAS BEEN OFF OF IT FOR ABOUT 2 MONTHS) TRIAMTERENE HAS NOT BEEN FILLED SINCE MARCH 2020 #100/100DS- I DID INCLUDE THE PAST DUE FILL DATE ON THE MED REC OTC MEDS: MELATONIN ALL DAY ALLERGY CALCIUM W/ VIT D
[2020-10-07] MEDS: CEFEPIME 1,000 MG/SWFI 10 ML IV PUSH IV SCH ×10 (00:30→23:32)
[2020-10-07] MEDS: methylPREDNISolone 125 MG (Solu-MEDROL) VIAL IVP SCH ×5 (00:30→23:35)
[2020-10-07] MEDS: ENOXAPARIN 300 MG/3 ML (LOVENOX) MULTI-DOSE VIAL SQ SCH ×3 (00:40→23:37)
[2020-10-07] MEDS: RT-ALBUTEROL INHALER HFA (VENTOLIN HFA) 18 GM IH SCH ×6 (02:53→21:29)
[2020-10-07] MEDS: VANCOMYCIN 1250 MG/NS 250 ML IVPB IV SCH ×4 (02:56→02:58)
[2020-10-07] MEDS: LEVOFLOXACIN 750 MG/D5W 150 ML PRE-MIX IV SCH (03:00)
[2020-10-07 03:38] LABS: BASOPHILS % (AUTO) 0 % (0-10); EOSINOPHILS % (AUTO) 0 % (0-10); HEMATOCRIT 38 % (35-52); HEMOGLOBIN 11.7 g/dL (11.5-16.0); LYMPHOCYTES # (AUTO) 0.5 10^3/uL (1.0-4.0); LYMPHOCYTES % (AUTO) 7 % (12-44); MEAN CORPUSCULAR HEMOGLOBIN 30 pg (25-34); MEAN CORPUSCULAR HGB CONC 31 g/dL (32-36); MEAN CORPUSCULAR VOLUME 97 fL (80-99); MEAN PLATELET VOLUME 9.8 fL (9.0-12.2); MONOCYTES # (AUTO) 0.2 10^3/uL (0.0-1.0); MONOCYTES % (AUTO) 3 % (0-12); NEUTROPHILS # (AUTO) 6.8 10^3/uL (1.8-7.8); NEUTROPHILS % (AUTO) 89 % (42-75); PLATELET COUNT 212 10^3/uL (130-400); WHITE BLOOD COUNT 7.6 10^3/uL (4.3-11.0)
[2020-10-07 03:53] LABS: CHLORIDE 106 MMOL/L (98-107); POTASSIUM 4.1 MMOL/L (3.6-5.0); SODIUM 140 MMOL/L (135-145)
[2020-10-07 03:54] LABS: CALCIUM 8.2 MG/DL (8.5-10.1)
[2020-10-07 03:55] LABS: GLUCOSE 215 MG/DL (70-105)
[2020-10-07 03:56] LABS: CARBON DIOXIDE 24 MMOL/L (21-32)
[2020-10-07 03:58] LABS: PHOSPHORUS 2.3 MG/DL (2.3-4.7)
[2020-10-07 03:59] LABS: CREATININE SERUM 0.78 MG/DL (0.60-1.30); GFR ESTIMATED > 60
[2020-10-07 04:00] LABS: BUN/CREATININE RATIO 19
[2020-10-07 04:01] LABS: MAGNESIUM 2.2 MG/DL (1.6-2.4)
[2020-10-07] MEDS: LACTATED RINGERS 1,000 ML IV SCH ×4 (05:30→23:32)
[2020-10-07] MEDS ORDERED: cloNIDine 0.1 MG (CATAPRES) TAB PO ONE (09:30)
--- NOTE | 2020-10-07 10:42 | Progress Note - Hospitalist ---
Subjective HPI/CC On Admission Date Seen by Provider: Oct 07, 2020 Time Seen by Provider: 10:00 CC: SOB due to Covid-19 HPI: This is a 60yoWF clinic Pt of [facility] with a new diagnosis of Myasthenia Gravis 2.5 months ago, sent up to and received plasmaphoresis five rounds, who presents after the rest of her family was tested for Covid and she became more and more symptomatic with hypoxia. She has been placed on Remdesivir protocol with Decadron and Convalescent plasma and will receive close monitoring due to high risk for complete respiratory failure and ventilator dependence due to morbid obesity, RALPH, Myasthenia Gravis with respiratory issues along with her chronic asthma. Subjective/Events-last exam Midline was required for vascular access Home meds will be restarted Elevated BP will require her Clonidine to be restarted due to reflex hypertension Overall doing very well otherwise Pt doing okay but will remain in the ICU high risk for intubation Review of Systems General: Fatigue, Malaise Pulmonary: Dyspnea, Cough Cardiovascular: Edema Focused Exam Lactate Level 10/05/20 21:12: Lactic Acid Level 1.01 Objective Exam Vital Signs Vital Signs Date Time Temp Pulse Resp B/P (MAP) Pulse Ox O2 Delivery O2 Flow Rate FiO2 10/08/20 06:00 61 24 158/82 94 Nasal Cannula 3.00 10/08/20 03:28 36.5 Capillary Refill : Less Than 3 Seconds General Appearance: No Apparent Distress, WD/WN, Anxious, Chronically ill, Obese Respiratory: Chest Non Tender, Lungs Clear, Normal Breath Sounds, No Accessory Muscle Use, No Respiratory Distress, Decreased Breath Sounds Cardiovascular: Regular Rate, Rhythm Extremity: Pedal Edema Neurologic/Psychiatric: Alert, Oriented x3, No Motor/Sensory Deficits, Normal Mood/Affect Results/Procedures Lab Laboratory Tests 10/08/20 03:35 Patient resulted labs reviewed. Assessment/Plan Assessment and Plan Assess & Plan/Chief Complaint Assessment: COVID-19 PNA Hypoxia Asthma Myasthenia gravis Obesity RALPH on CPAP DM HTN HLP Plan: COVID-19 treatment O2 Supportive care High risk for intubation 10/07/20: ICU High risk for intubation Steroids Clinical Quality Measures DVT/VTE Risk/Contraindication: Risk Factor Score Per Nursin RFS Level Per Nursing on Admit: 4+=Very High FABIENNE ZAMORA DO Oct 07, 2020 10:42
[2020-10-07] MEDS: PANTOPRAZOLE 40 MG (PROTONIX) VIAL IV SCH (10:55)
[2020-10-07] MEDS ORDERED: ONDANSETRON 4 MG (ZOFRAN) ORAL DISSOLVE TAB PO PRN (11:00)
--- NOTE | 2020-10-07 11:45 | NUR ---
BEDSIDE VITALS PER eICU ARE NIF -20 MEP 45 RR 24 VC 1.05
[2020-10-07] MEDS: cloNIDine 0.1 MG (CATAPRES) TAB PO SCH ×2 (12:54→20:27)
[2020-10-07] MEDS ORDERED: TROUGH ORDER-PHARMACY XX NR (14:00)
--- NOTE | 2020-10-07 14:35 | NUR ---
During care rounds it was noted that avg PO intake 50% x1d. Placed order for Glucerna (vary) with meals TID, for increased kcal intake. Provides 220 kcal and 10 g Pro per serving. Will continue to follow and reassess as pt needs, intake, and status change. Cristy Deleon, MS RD LD [phone] cell
[2020-10-07] MEDS: CALCIUM CARB + VIT D 600 MG (CALCARB + D) TAB PO SCH (18:01)
[2020-10-08] MEDS: RT-ALBUTEROL INHALER HFA (VENTOLIN HFA) 18 GM IH SCH ×4 (02:04→18:11)
[2020-10-08] MEDS: VANCOMYCIN 1250 MG/NS 250 ML IVPB IV SCH ×4 (03:29→15:07)
[2020-10-08] MEDS: LEVOFLOXACIN 750 MG/D5W 150 ML PRE-MIX IV SCH (03:30)
[2020-10-08 03:44] LABS: BASOPHILS % (AUTO) 0 % (0-10); EOSINOPHILS % (AUTO) 0 % (0-10); HEMATOCRIT 35 % (35-52); HEMOGLOBIN 11.1 g/dL (11.5-16.0); LYMPHOCYTES # (AUTO) 0.4 10^3/uL (1.0-4.0); LYMPHOCYTES % (AUTO) 4 % (12-44); MEAN CORPUSCULAR HEMOGLOBIN 30 pg (25-34); MEAN CORPUSCULAR HGB CONC 31 g/dL (32-36); MEAN CORPUSCULAR VOLUME 95 fL (80-99); MEAN PLATELET VOLUME 9.6 fL (9.0-12.2); MONOCYTES # (AUTO) 0.3 10^3/uL (0.0-1.0); MONOCYTES % (AUTO) 3 % (0-12); NEUTROPHILS # (AUTO) 10.6 10^3/uL (1.8-7.8); NEUTROPHILS % (AUTO) 92 % (42-75); PLATELET COUNT 218 10^3/uL (130-400); WHITE BLOOD COUNT 11.5 10^3/uL (4.3-11.0)
[2020-10-08 03:54] LABS: CHLORIDE 106 MMOL/L (98-107); POTASSIUM 4.3 MMOL/L (3.6-5.0); SODIUM 142 MMOL/L (135-145)
[2020-10-08 03:55] LABS: CALCIUM 8.3 MG/DL (8.5-10.1); GLUCOSE 216 MG/DL (70-105)
[2020-10-08 03:57] LABS: CARBON DIOXIDE 26 MMOL/L (21-32)
[2020-10-08 03:59] LABS: CREATININE SERUM 0.76 MG/DL (0.60-1.30); GFR ESTIMATED > 60; PHOSPHORUS 3.8 MG/DL (2.3-4.7)
[2020-10-08 04:00] LABS: BUN/CREATININE RATIO 22
[2020-10-08 04:23] LABS: ATYPICAL LYMPHOCYTES 1 %; BAND NEUTROPHILS 5 %; BASOPHILS % (MANUAL) 1 %; LYMPHOCYTES % (MANUAL) 4 %; MONOCYTES % (MANUAL) 3 %; NEUTROPHILS % (MANUAL) 86 %
[2020-10-08 04:24] LABS: MICROCYTOSIS MODERATE
[2020-10-08] MEDS: methylPREDNISolone 125 MG (Solu-MEDROL) VIAL IVP SCH ×3 (05:22→17:02)
[2020-10-08] MEDS: CEFEPIME 1,000 MG/SWFI 10 ML IV PUSH IV SCH ×6 (05:22→17:02)
--- NOTE | 2020-10-08 07:14 | Progress Note - Hospitalist ---
Subjective HPI/CC On Admission Date Seen by Provider: Oct 08, 2020 Time Seen by Provider: 11:00 CC: SOB due to Covid-19 HPI: This is a 60yoWF clinic Pt of [facility] [place] with a new diagnosis of Myasthenia Gravis 2.5 months ago, sent up to and received plasmaphoresis five rounds, who presents after the rest of her family was tested for Covid and she became more and more symptomatic with hypoxia. She has been placed on Remdesivir protocol with Decadron and Convalescent plasma and will receive close monitoring due to high risk for complete respiratory failure and ventilator dependence due to morbid obesity, RALPH, Myasthenia Gravis with respiratory issues along with her chronic asthma. Subjective/Events-last exam Pt doing a lot better Xanax really helps her anxiety Heplocking IV fluid and gave Lasix 40mg IV x1 ABG and CXR reviewed On Vapotherm and tolerating that well Updated her daughter who is a floor person in [facility] Review of Systems Pulmonary: Dyspnea Cardiovascular: Edema Focused Exam Lactate Level Objective Exam Vital Signs Vital Signs Date Time Temp Pulse Resp B/P (MAP) Pulse Ox O2 Delivery O2 Flow Rate FiO2 10/09/20 05:25 36.7 94 Vapotherm 35.00 50.00 10/09/20 02:16 60 10/09/20 01:00 50 10/08/20 23:00 31 147/80 Capillary Refill : Less Than 3 Seconds General Appearance: No Apparent Distress, WD/WN, Anxious, Chronically ill, Obese Respiratory: Chest Non Tender, Lungs Clear, No Accessory Muscle Use, No Respiratory Distress, Decreased Breath Sounds Cardiovascular: Regular Rate, Rhythm, No Gallop, No JVD, No Murmur, Normal Peripheral Pulses Extremity: Pedal Edema Neurologic/Psychiatric: Alert, Oriented x3, No Motor/Sensory Deficits, Normal Mood/Affect Results/Procedures Lab Patient resulted labs reviewed. Assessment/Plan Assessment and Plan Assess & Plan/Chief Complaint Assessment: COVID-19 PNA Hypoxia Asthma Myasthenia gravis Obesity RALPH on CPAP DM HTN HLP Plan: COVID-19 treatment O2 Supportive care High risk for intubation 10/07/20: ICU High risk for intubation Steroids 10/08/20: Lasix Xanax Os Vapotherm Monitor closely Clinical Quality Measures DVT/VTE Risk/Contraindication: Risk Factor Score Per Nursin RFS Level Per Nursing on Admit: 4+=Very High FABIENNE ZAMORA DO Oct 08, 2020 07:14
--- NOTE | 2020-10-08 08:30 | NUR ---
ASSESSMENT COMPLETE SEE FLOW SHEET, PT NOTED TO HAVE PRODUCTIVE COUGH, PT DRINKING WATER AND NOTED TO HAVE DECREASED OXYGEN SATURATION, THIS RN INCREASED OXYGEN UP TO 10L AND NOTIFIED RT, PT'S SA02 NOTED TO BE 92% PT REQUESTING SOMETHING FOR ANXIETY AND COUGH, DR ZAMORA NOTIFIED AND NEW TELEPHONE ORDERS RECEIVED. PT PLACED ON VAPOTHERM BY RT AND SA02 NOTED TO BE IMPROVING 95-96%, THIS RN STAYED IN ROOM FOR APPROXIMATELY 45 MIN, CALL LIGHT AND OTHER PERSONAL ITEMS WITHIN REACH WILL CONTINUE TO MONITOR.
[2020-10-08] MEDS: KCL 10 MEQ TAB (MICRO K) PO SCH (08:45)
[2020-10-08] MEDS: PANTOPRAZOLE 40 MG (PROTONIX) TAB PO SCH (08:45)
[2020-10-08] MEDS: LEVOTHYROXINE 50 MCG (LEVOTHROID) TAB PO SCH (08:45)
[2020-10-08] MEDS: cloNIDine 0.1 MG (CATAPRES) TAB PO SCH ×3 (08:45→21:11)
[2020-10-08] MEDS: CALCIUM CARB + VIT D 600 MG (CALCARB + D) TAB PO SCH ×2 (08:45→17:05)
[2020-10-08] MEDS: LOSARTAN 50 MG (COZAAR) TAB PO SCH (08:46)
[2020-10-08] MEDS: TRIAMTERENE/HCTZ 75-50 (MAXZIDE,DYAZIDE) TABLET PO SCH (08:46)
[2020-10-08] MEDS: MONTELUKAST 10 MG (SINGULAIR) TAB PO SCH (08:46)
[2020-10-08] MEDS: LORATADINE (CLARITIN) 10 MG TAB PO SCH (08:46)
[2020-10-08] MEDS: PANTOPRAZOLE 40 MG (PROTONIX) VIAL IV SCH (08:51)
[2020-10-08] MEDS ORDERED: guaiFENesin/DM (ROBITUSSIN DM) 10 ML UDC ONE (09:07)
[2020-10-08] MEDS ORDERED: FUROSEMIDE 40 MG/4 ML INJ (LASIX) ONE (09:07)
[2020-10-08] MEDS ORDERED: ALPRAZolam 0.5 MG (XANAX) TAB ONE (09:08)
[2020-10-08] MEDS: UMECLIDINIUM BROMIDE (INCRUSE ELLIPTA) 7'S IH SCH (09:10)
[2020-10-08] MEDS: ADVAIR HFA 115/21 MCG INHALER 8 GM IH SCH (09:10)
[2020-10-08] MEDS: guaiFENesin/DM (ROBITUSSIN DM) 10 ML UDC PO PRN (09:11)
[2020-10-08] MEDS: ALPRAZolam 0.5 MG (XANAX) TAB PO PRN (09:11)
[2020-10-08] MEDS ORDERED: FUROSEMIDE 40 MG/4 ML INJ (LASIX) IVP ONE (09:15)
[2020-10-08] MEDS: LACTATED RINGERS 1,000 ML IV SCH (11:04)
[2020-10-08 11:11] LABS: ABG BASE EXCESS 4.8 MMOL/L (-2.5-2.5); ABG OXYGEN SATURATION 91 % (94-100); ABG PCO2 46 MMHG (35-45); ABG PH 7.42 (7.37-7.43); ABG PO2 61 MMHG (79-93); ABG TCO2 30.8 MMOL/L (21.0-31.0)
[2020-10-08 11:13] LABS: ALLENS TEST YES-POS; INSPIRED O2 40; PATIENT TEMP 36.1; VENTILATOR NO
--- NOTE | 2020-10-08 11:28 | Diagnostic Imaging Report ---
INDICATION: Covid. COMPARISON: 10/05/2020. FINDINGS: The 5 lobed pulmonary opacities, asymmetric greater right, have significantly increased in the interim, particularly in the right lung. There is no apparent pleural fluid or pneumothorax. The upper limits heart size is stable. IMPRESSION: The bilateral infiltrates, greater right, have increased without pleural fluid, pneumothorax, or other significant change. The report was faxed to Infection Control by martina@11:27 AM. Dictated by: Dictated on workstation # [id number]
[2020-10-08] MEDS: ENOXAPARIN 300 MG/3 ML (LOVENOX) MULTI-DOSE VIAL SQ SCH (12:01)
[2020-10-08] MEDS ORDERED: inSUlin ASPART (NovoLOG) 1 UNIT/0.01 ML (CHARGE PER UNIT) ONE (12:05)
[2020-10-08] MEDS: inSUlin ASPART (NovoLOG) 1 UNIT/0.01 ML (CHARGE PER UNIT) SQ SCH ×3 (12:09→21:11)
--- NOTE | 2020-10-08 14:00 | NUR ---
Note avg PO intake 58% x2d, per chart review. Would recommend encourage pt to eat when able. Continue supplementation order of Glucerna with meals TID, for increased kcal intake. Provides 220 kcal and 10 g Pro per serving. Will continue to follow and reassess as pt needs, intake, and status change. Cristy Deleon MS RD LD [phone] cell
[2020-10-09] MEDS: CEFEPIME 1,000 MG/SWFI 10 ML IV PUSH IV SCH ×10 (01:39→23:52)
[2020-10-09] MEDS: methylPREDNISolone 125 MG (Solu-MEDROL) VIAL IVP SCH ×5 (01:39→23:52)
[2020-10-09] MEDS: ENOXAPARIN 300 MG/3 ML (LOVENOX) MULTI-DOSE VIAL SQ SCH ×3 (01:44→23:52)
[2020-10-09] MEDS: RT-ALBUTEROL INHALER HFA (VENTOLIN HFA) 18 GM IH SCH ×5 (02:16→18:53)
[2020-10-09] MEDS: LEVOFLOXACIN 750 MG/D5W 150 ML PRE-MIX IV SCH (05:14)
[2020-10-09] MEDS: VANCOMYCIN 1250 MG/NS 250 ML IVPB IV SCH ×2 (05:14)
[2020-10-09 05:36] LABS: BASOPHILS % (AUTO) 0 % (0-10); EOSINOPHILS % (AUTO) 0 % (0-10); HEMATOCRIT 36 % (35-52); HEMOGLOBIN 11.3 g/dL (11.5-16.0); LYMPHOCYTES # (AUTO) 0.3 10^3/uL (1.0-4.0); LYMPHOCYTES % (AUTO) 3 % (12-44); MEAN CORPUSCULAR HEMOGLOBIN 30 pg (25-34); MEAN CORPUSCULAR HGB CONC 32 g/dL (32-36); MEAN CORPUSCULAR VOLUME 95 fL (80-99); MEAN PLATELET VOLUME 9.8 fL (9.0-12.2); MONOCYTES # (AUTO) 0.3 10^3/uL (0.0-1.0); MONOCYTES % (AUTO) 3 % (0-12); NEUTROPHILS # (AUTO) 9.8 10^3/uL (1.8-7.8); NEUTROPHILS % (AUTO) 93 % (42-75); PLATELET COUNT 225 10^3/uL (130-400); WHITE BLOOD COUNT 10.5 10^3/uL (4.3-11.0)
[2020-10-09 06:06] LABS: CHLORIDE 100 MMOL/L (98-107); POTASSIUM 4.1 MMOL/L (3.6-5.0); SODIUM 141 MMOL/L (135-145)
--- NOTE | 2020-10-09 06:07 | Progress Note - Hospitalist ---
Subjective HPI/CC On Admission Date Seen by Provider: Oct 09, 2020 Time Seen by Provider: 11:00 CC: SOB due to Covid-19 HPI: This is a 60yoWF clinic Pt of mine with a new diagnosis of Myasthenia Gravis 2.5 months ago, sent up to and received plasmaphoresis five rounds, who presents after the rest of her family was tested for Covid and she became more and more symptomatic with hypoxia. She has been placed on Remdesivir protocol with Decadron and Convalescent plasma and will receive close monitoring due to high risk for complete respiratory failure and ventilator dependence due to morbid obesity, RALPH, Myasthenia Gravis with respiratory issues along with her chronic asthma. Subjective/Events-last exam Vapotherm maintained Mid 90% O2 sats Coughed up a bit of phlem Labs ok Diuresis successful yesterday Review of Systems Pulmonary: Dyspnea, Cough Objective Exam Vital Signs Vital Signs Date Time Temp Pulse Resp B/P (MAP) Pulse Ox O2 Delivery O2 Flow Rate FiO2 10/09/20 19:38 36.4 10/09/20 18:54 Vapotherm 35.00 60 10/09/20 18:00 77 38 171/96 94 Capillary Refill : Less Than 3 Seconds General Appearance: No Apparent Distress, WD/WN, Anxious, Chronically ill, Obese Respiratory: Chest Non Tender, Lungs Clear, Normal Breath Sounds, No Accessory Muscle Use, No Respiratory Distress, Decreased Breath Sounds Cardiovascular: Regular Rate, Rhythm, No Edema, No Gallop, No JVD, No Murmur, Normal Peripheral Pulses Neurologic/Psychiatric: Alert, Oriented x3, No Motor/Sensory Deficits, Normal Mood/Affect Results/Procedures Lab Laboratory Tests 10/09/20 05:12 10/09/20 05:15 Patient resulted labs reviewed. Assessment/Plan Assessment and Plan Assess & Plan/Chief Complaint Assessment: COVID-19 PNA Hypoxia Asthma Myasthenia gravis Obesity RALPH on CPAP DM HTN HLP Plan: COVID-19 treatment O2 Supportive care High risk for intubation 10/07/20: ICU High risk for intubation Steroids 10/08/20: Lasix Xanax Os Vapotherm Monitor closely 10/09/20: Xanax COVID treatment Monitor O2 sats Clinical Quality Measures DVT/VTE Risk/Contraindication: Risk Factor Score Per Nursin RFS Level Per Nursing on Admit: 4+=Very High FABIENNE ZAMORA DO Oct 09, 2020 06:07
[2020-10-09 06:08] LABS: CALCIUM 8.6 MG/DL (8.5-10.1); GLUCOSE 229 MG/DL (70-105)
[2020-10-09 06:10] LABS: CARBON DIOXIDE 29 MMOL/L (21-32)
[2020-10-09 06:12] LABS: CREATININE SERUM 0.88 MG/DL (0.60-1.30); GFR ESTIMATED > 60; PHOSPHORUS 4.2 MG/DL (2.3-4.7)
[2020-10-09 06:13] LABS: BUN/CREATININE RATIO 23
[2020-10-09 06:14] LABS: MAGNESIUM 2.3 MG/DL (1.6-2.4)
[2020-10-09] MEDS: inSUlin ASPART (NovoLOG) 1 UNIT/0.01 ML (CHARGE PER UNIT) SQ SCH ×4 (06:48→20:54)
[2020-10-09] MEDS: ADVAIR HFA 115/21 MCG INHALER 8 GM IH SCH (07:33)
[2020-10-09] MEDS: UMECLIDINIUM BROMIDE (INCRUSE ELLIPTA) 7'S IH SCH (07:35)
[2020-10-09] MEDS: CALCIUM CARB + VIT D 600 MG (CALCARB + D) TAB PO SCH ×2 (08:15→18:02)
[2020-10-09] MEDS: KCL 10 MEQ TAB (MICRO K) PO SCH (08:15)
[2020-10-09] MEDS: TRIAMTERENE/HCTZ 75-50 (MAXZIDE,DYAZIDE) TABLET PO SCH (08:15)
[2020-10-09] MEDS: LOSARTAN 50 MG (COZAAR) TAB PO SCH (08:15)
[2020-10-09] MEDS: PANTOPRAZOLE 40 MG (PROTONIX) TAB PO SCH (08:15)
[2020-10-09] MEDS: ALPRAZolam 0.5 MG (XANAX) TAB PO PRN (08:15)
[2020-10-09] MEDS: LEVOTHYROXINE 50 MCG (LEVOTHROID) TAB PO SCH (08:16)
[2020-10-09] MEDS: MONTELUKAST 10 MG (SINGULAIR) TAB PO SCH (08:16)
[2020-10-09] MEDS: PANTOPRAZOLE 40 MG (PROTONIX) VIAL IV SCH (08:16)
[2020-10-09] MEDS: cloNIDine 0.1 MG (CATAPRES) TAB PO SCH ×3 (08:16→20:29)
[2020-10-09] MEDS: LORATADINE (CLARITIN) 10 MG TAB PO SCH (08:16)
[2020-10-10] MEDS: RT-ALBUTEROL INHALER HFA (VENTOLIN HFA) 18 GM IH SCH ×4 (02:16→21:32)
[2020-10-10 02:54] LABS: BASOPHILS % (AUTO) 0 % (0-10); EOSINOPHILS % (AUTO) 0 % (0-10); HEMATOCRIT 37 % (35-52); HEMOGLOBIN 11.6 g/dL (11.5-16.0); LYMPHOCYTES # (AUTO) 0.4 10^3/uL (1.0-4.0); LYMPHOCYTES % (AUTO) 3 % (12-44); MEAN CORPUSCULAR HEMOGLOBIN 30 pg (25-34); MEAN CORPUSCULAR HGB CONC 31 g/dL (32-36); MEAN CORPUSCULAR VOLUME 94 fL (80-99); MEAN PLATELET VOLUME 9.5 fL (9.0-12.2); MONOCYTES # (AUTO) 0.2 10^3/uL (0.0-1.0); MONOCYTES % (AUTO) 2 % (0-12); NEUTROPHILS % (AUTO) 93 % (42-75); PLATELET COUNT 225 10^3/uL (130-400); WHITE BLOOD COUNT 10.8 10^3/uL (4.3-11.0)
[2020-10-10 03:11] LABS: CHLORIDE 99 MMOL/L (98-107); POTASSIUM 4.4 MMOL/L (3.6-5.0); SODIUM 138 MMOL/L (135-145)
[2020-10-10 03:12] LABS: CALCIUM 8.7 MG/DL (8.5-10.1); GLUCOSE 215 MG/DL (70-105)
[2020-10-10 03:14] LABS: CARBON DIOXIDE 28 MMOL/L (21-32)
[2020-10-10 03:16] LABS: CREATININE SERUM 0.83 MG/DL (0.60-1.30); GFR ESTIMATED > 60; PHOSPHORUS 3.2 MG/DL (2.3-4.7)
[2020-10-10 03:17] LABS: BUN/CREATININE RATIO 28
[2020-10-10 03:19] LABS: MAGNESIUM 2.4 MG/DL (1.6-2.4)
[2020-10-10] MEDS: LEVOFLOXACIN 750 MG/D5W 150 ML PRE-MIX IV SCH (05:50)
[2020-10-10] MEDS: CEFEPIME 1,000 MG/SWFI 10 ML IV PUSH IV SCH ×6 (05:50→16:53)
[2020-10-10] MEDS: methylPREDNISolone 125 MG (Solu-MEDROL) VIAL IVP SCH ×3 (05:51→16:53)
[2020-10-10] MEDS: inSUlin ASPART (NovoLOG) 1 UNIT/0.01 ML (CHARGE PER UNIT) SQ SCH ×4 (05:51→21:02)
--- NOTE | 2020-10-10 07:02 | Progress Note - Hospitalist ---
Subjective HPI/CC On Admission Date Seen by Provider: Oct 10, 2020 Time Seen by Provider: 11:00 CC: SOB due to Covid-19 HPI: This is a 60yoWF clinic Pt of mine with a new diagnosis of Myasthenia Gravis 2.5 months ago, sent up to and received plasmaphoresis five rounds, who presents after the rest of her family was tested for Covid and she became more and more symptomatic with hypoxia. She has been placed on Remdesivir protocol with Decadron and Convalescent plasma and will receive close monitoring due to high risk for complete respiratory failure and ventilator dependence due to morbid obesity, RALPH, Myasthenia Gravis with respiratory issues along with her chronic asthma. Subjective/Events-last exam Remains critical Vapotherm still maintained Edema improved Not eating much Will start PT OT Review of Systems General: Fatigue Pulmonary: Dyspnea Objective Exam Vital Signs Vital Signs Date Time Temp Pulse Resp B/P (MAP) Pulse Ox O2 Delivery O2 Flow Rate FiO2 10/11/20 06:00 61 30 170/109 95 Vapotherm 35.00 65.00 10/11/20 02:13 75 10/10/20 19:36 36.9 Capillary Refill : Less Than 3 Seconds General Appearance: No Apparent Distress, WD/WN, Anxious, Chronically ill, Obese Respiratory: Chest Non Tender, Lungs Clear, No Accessory Muscle Use, No Respiratory Distress, Decreased Breath Sounds Cardiovascular: Regular Rate, Rhythm, No Edema, No Gallop, No JVD, No Murmur, Normal Peripheral Pulses Neurologic/Psychiatric: Alert, Oriented x3, No Motor/Sensory Deficits, Normal Mood/Affect Results/Procedures Lab Laboratory Tests 10/11/20 03:30 Patient resulted labs reviewed. Assessment/Plan Assessment and Plan Assess & Plan/Chief Complaint Assessment: COVID-19 PNA Hypoxia Asthma Myasthenia gravis Obesity RALPH on CPAP DM HTN HLP Plan: COVID-19 treatment O2 Supportive care High risk for intubation 10/07/20: ICU High risk for intubation Steroids 10/08/20: Lasix Xanax Os Vapotherm Monitor closely 10/09/20: Xanax COVID treatment Monitor O2 sats 10/10/20: ICU status Monitor closely for intubation need Clinical Quality Measures DVT/VTE Risk/Contraindication: Risk Factor Score Per Nursin RFS Level Per Nursing on Admit: 4+=Very High FABIENNE ZAMORA DO Oct 10, 2020 07:02
[2020-10-10] MEDS: KCL 10 MEQ TAB (MICRO K) PO SCH (08:18)
[2020-10-10] MEDS: CALCIUM CARB + VIT D 600 MG (CALCARB + D) TAB PO SCH ×2 (08:18→16:53)
[2020-10-10] MEDS: LORATADINE (CLARITIN) 10 MG TAB PO SCH (08:18)
[2020-10-10] MEDS: PANTOPRAZOLE 40 MG (PROTONIX) TAB PO SCH (08:18)
[2020-10-10] MEDS: cloNIDine 0.1 MG (CATAPRES) TAB PO SCH ×3 (08:18→21:02)
[2020-10-10] MEDS: TRIAMTERENE/HCTZ 75-50 (MAXZIDE,DYAZIDE) TABLET PO SCH (08:18)
[2020-10-10] MEDS: LOSARTAN 50 MG (COZAAR) TAB PO SCH (08:18)
[2020-10-10] MEDS: MONTELUKAST 10 MG (SINGULAIR) TAB PO SCH (08:18)
[2020-10-10] MEDS: LEVOTHYROXINE 50 MCG (LEVOTHROID) TAB PO SCH (08:18)
[2020-10-10] MEDS: UMECLIDINIUM BROMIDE (INCRUSE ELLIPTA) 7'S IH SCH (08:51)
[2020-10-10] MEDS: ADVAIR HFA 115/21 MCG INHALER 8 GM IH SCH (08:51)
[2020-10-10] MEDS: ENOXAPARIN 300 MG/3 ML (LOVENOX) MULTI-DOSE VIAL SQ SCH (11:53)
[2020-10-11] MEDS: ENOXAPARIN 300 MG/3 ML (LOVENOX) MULTI-DOSE VIAL SQ SCH ×2 (00:36→12:09)
[2020-10-11] MEDS: CEFEPIME 1,000 MG/SWFI 10 ML IV PUSH IV SCH ×2 (00:36)
[2020-10-11] MEDS: methylPREDNISolone 125 MG (Solu-MEDROL) VIAL IVP SCH ×4 (00:36→17:12)
[2020-10-11] MEDS: RT-ALBUTEROL INHALER HFA (VENTOLIN HFA) 18 GM IH SCH ×4 (02:13→20:11)
[2020-10-11 03:38] LABS: BASOPHILS % (AUTO) 0 % (0-10); EOSINOPHILS % (AUTO) 0 % (0-10); HEMATOCRIT 37 % (35-52); HEMOGLOBIN 11.7 g/dL (11.5-16.0); LYMPHOCYTES # (AUTO) 0.4 10^3/uL (1.0-4.0); LYMPHOCYTES % (AUTO) 5 % (12-44); MEAN CORPUSCULAR HEMOGLOBIN 29 pg (25-34); MEAN CORPUSCULAR HGB CONC 31 g/dL (32-36); MEAN CORPUSCULAR VOLUME 94 fL (80-99); MEAN PLATELET VOLUME 9.6 fL (9.0-12.2); MONOCYTES # (AUTO) 0.2 10^3/uL (0.0-1.0); MONOCYTES % (AUTO) 2 % (0-12); NEUTROPHILS # (AUTO) 8.3 10^3/uL (1.8-7.8); NEUTROPHILS % (AUTO) 91 % (42-75); PLATELET COUNT 252 10^3/uL (130-400); WHITE BLOOD COUNT 9.2 10^3/uL (4.3-11.0)
[2020-10-11 03:48] LABS: CHLORIDE 97 MMOL/L (98-107); POTASSIUM 4.6 MMOL/L (3.6-5.0); SODIUM 134 MMOL/L (135-145)
[2020-10-11 03:49] LABS: CALCIUM 8.7 MG/DL (8.5-10.1); GLUCOSE 222 MG/DL (70-105)
[2020-10-11 03:51] LABS: CARBON DIOXIDE 28 MMOL/L (21-32)
[2020-10-11 03:53] LABS: GFR ESTIMATED > 60
[2020-10-11 03:54] LABS: BUN/CREATININE RATIO 31
[2020-10-11 03:56] LABS: MAGNESIUM 2.3 MG/DL (1.6-2.4)
[2020-10-11 04:41] LABS: SMEAR SCAN COMMENT YES
[2020-10-11] MEDS: inSUlin ASPART (NovoLOG) 1 UNIT/0.01 ML (CHARGE PER UNIT) SQ SCH ×4 (05:45→21:26)
[2020-10-11] MEDS: ADVAIR HFA 115/21 MCG INHALER 8 GM IH SCH (07:19)
[2020-10-11] MEDS: UMECLIDINIUM BROMIDE (INCRUSE ELLIPTA) 7'S IH SCH (07:19)
[2020-10-11] MEDS: CALCIUM CARB + VIT D 600 MG (CALCARB + D) TAB PO SCH ×2 (08:25→17:12)
[2020-10-11] MEDS: KCL 10 MEQ TAB (MICRO K) PO SCH (08:25)
[2020-10-11] MEDS: LOSARTAN 50 MG (COZAAR) TAB PO SCH (08:25)
[2020-10-11] MEDS: PANTOPRAZOLE 40 MG (PROTONIX) TAB PO SCH (08:25)
[2020-10-11] MEDS: TRIAMTERENE/HCTZ 75-50 (MAXZIDE,DYAZIDE) TABLET PO SCH (08:26)
[2020-10-11] MEDS: MONTELUKAST 10 MG (SINGULAIR) TAB PO SCH (08:26)
[2020-10-11] MEDS: cloNIDine 0.1 MG (CATAPRES) TAB PO SCH ×3 (08:26→21:26)
[2020-10-11] MEDS: LORATADINE (CLARITIN) 10 MG TAB PO SCH (08:26)
[2020-10-11] MEDS: LEVOTHYROXINE 50 MCG (LEVOTHROID) TAB PO SCH (08:26)
--- NOTE | 2020-10-11 14:17 | Progress Note - Hospitalist ---
Subjective HPI/CC On Admission Date Seen by Provider: Oct 11, 2020 Time Seen by Provider: 13:00 CC: SOB due to Covid-19 HPI: This is a 60yoWF clinic Pt of [facility] with a new diagnosis of Myasthenia Gravis 2.5 months ago, sent up to and received plasmaphoresis five rounds, who presents after the rest of her family was tested for Covid and she became more and more symptomatic with hypoxia. She has been placed on Remdesivir protocol with Decadron and Convalescent plasma and will receive close monitoring due to high risk for complete respiratory failure and ventilator dependence due to morbid obesity, RALPH, Myasthenia Gravis with respiratory issues along with her chronic asthma. Subjective/Events-last exam Patient doing well 35 liters Vapotherm at 100% Still high risk for intubation Checking repeat CXR Labs stable Very difficult to manage considering obesity, RALPH, MG and asthma with DM Review of Systems Pulmonary: Dyspnea, Cough Objective Exam Vital Signs Vital Signs Date Time Temp Pulse Resp B/P (MAP) Pulse Ox O2 Delivery O2 Flow Rate FiO2 10/11/20 16:00 68 35 134/79 96 Vapotherm 35.00 65.00 10/11/20 14:50 100 10/11/20 08:12 36.1 Capillary Refill : Less Than 3 Seconds General Appearance: No Apparent Distress, WD/WN, Chronically ill, Obese Respiratory: Chest Non Tender, Lungs Clear, No Accessory Muscle Use, No Respiratory Distress, Decreased Breath Sounds Cardiovascular: Regular Rate, Rhythm, No Edema, No Gallop, No JVD, No Murmur, Normal Peripheral Pulses Neurologic/Psychiatric: Alert, Oriented x3, No Motor/Sensory Deficits, Normal Mood/Affect Results/Procedures Lab Laboratory Tests 10/11/20 03:30 Patient resulted labs reviewed. Assessment/Plan Assessment and Plan Assess & Plan/Chief Complaint Assessment: COVID-19 PNA Hypoxia Asthma Myasthenia gravis Obesity RALPH on CPAP DM HTN HLP Plan: COVID-19 treatment O2 Supportive care High risk for intubation 10/07/20: ICU High risk for intubation Steroids 10/08/20: Lasix Xanax Os Vapotherm Monitor closely 10/09/20: Xanax COVID treatment Monitor O2 sats 10/10/20: ICU status Monitor closely for intubation need 10/11/20: Intubation risk Check CXR Clinical Quality Measures DVT/VTE Risk/Contraindication: Risk Factor Score Per Nursin RFS Level Per Nursing on Admit: 4+=Very High FABIENNE ZAMORA DO Oct 11, 2020 14:17
--- NOTE | 2020-10-11 14:45 | Diagnostic Imaging Report ---
EXAMINATION: Chest 1 view HISTORY: Covid positive COMPARISON: 10/08/2020 FINDINGS: Heart is enlarged. There has been mild improvement in the now moderate bilateral airspace opacities. No pleural effusion or pneumothorax. IMPRESSION: 1. Mild improvement in the now moderate bilateral airspace opacities consistent with Covid 19. Dictated by: Dictated on workstation # [id number]
[2020-10-12] MEDS: ENOXAPARIN 300 MG/3 ML (LOVENOX) MULTI-DOSE VIAL SQ SCH ×2 (01:15→12:32)
[2020-10-12] MEDS: methylPREDNISolone 125 MG (Solu-MEDROL) VIAL IVP SCH ×4 (01:15→16:36)
[2020-10-12 02:51] LABS: BASOPHILS % (AUTO) 0 % (0-10); EOSINOPHILS % (AUTO) 0 % (0-10); HEMATOCRIT 38 % (35-52); LYMPHOCYTES # (AUTO) 0.5 10^3/uL (1.0-4.0); LYMPHOCYTES % (AUTO) 6 % (12-44); MEAN CORPUSCULAR HEMOGLOBIN 29 pg (25-34); MEAN CORPUSCULAR HGB CONC 32 g/dL (32-36); MEAN CORPUSCULAR VOLUME 93 fL (80-99); MEAN PLATELET VOLUME 10.2 fL (9.0-12.2); MONOCYTES # (AUTO) 0.2 10^3/uL (0.0-1.0); MONOCYTES % (AUTO) 2 % (0-12); NEUTROPHILS # (AUTO) 7.5 10^3/uL (1.8-7.8); NEUTROPHILS % (AUTO) 88 % (42-75); PLATELET COUNT 303 10^3/uL (130-400); WHITE BLOOD COUNT 8.4 10^3/uL (4.3-11.0)
[2020-10-12 03:01] LABS: CHLORIDE 97 MMOL/L (98-107); POTASSIUM 5.2 MMOL/L (3.6-5.0); SODIUM 134 MMOL/L (135-145)
[2020-10-12 03:02] LABS: CALCIUM 8.6 MG/DL (8.5-10.1)
[2020-10-12 03:03] LABS: GLUCOSE 241 MG/DL (70-105)
[2020-10-12 03:04] LABS: CARBON DIOXIDE 25 MMOL/L (21-32)
[2020-10-12 03:07] LABS: CREATININE SERUM 0.78 MG/DL (0.60-1.30); GFR ESTIMATED > 60; PHOSPHORUS 4.3 MG/DL (2.3-4.7)
[2020-10-12 03:08] LABS: BUN/CREATININE RATIO 32
[2020-10-12 03:09] LABS: MAGNESIUM 2.4 MG/DL (1.6-2.4)
[2020-10-12] MEDS: inSUlin ASPART (NovoLOG) 1 UNIT/0.01 ML (CHARGE PER UNIT) SQ SCH ×4 (05:48→20:09)
[2020-10-12] MEDS: ADVAIR HFA 115/21 MCG INHALER 8 GM IH SCH (06:57)
[2020-10-12] MEDS: UMECLIDINIUM BROMIDE (INCRUSE ELLIPTA) 7'S IH SCH (06:57)
[2020-10-12] MEDS: RT-ALBUTEROL INHALER HFA (VENTOLIN HFA) 18 GM IH SCH ×4 (06:57→21:44)
--- NOTE | 2020-10-12 07:29 | Progress Note - Hospitalist ---
Subjective HPI/CC On Admission Date Seen by Provider: Oct 12, 2020 Time Seen by Provider: 11:30 CC: SOB due to Covid-19 HPI: This is a 60yoWF clinic Pt of [facility] with a new diagnosis of Myasthenia Gravis 2.5 months ago, sent up to and received plasmaphoresis five rounds, who presents after the rest of her family was tested for Covid and she became more and more symptomatic with hypoxia. She has been placed on Remdesivir protocol with Decadron and Convalescent plasma and will receive close monitoring due to high risk for complete respiratory failure and ventilator dependence due to morbid obesity, RALPH, Myasthenia Gravis with respiratory issues along with her chronic asthma. Subjective/Events-last exam Patient in good spirits Desaturation noted with cough fits CXR reviewed Labs reviewed No pain reported Vapotherm maintained Review of Systems General: Fatigue Pulmonary: Dyspnea, Cough Objective Exam Vital Signs Vital Signs Date Time Temp Pulse Resp B/P (MAP) Pulse Ox O2 Delivery O2 Flow Rate FiO2 10/12/20 16:16 36.6 10/12/20 16:00 59 22 145/82 96 Vapotherm 35.00 80.00 10/12/20 14:47 85 Capillary Refill : Less Than 3 Seconds General Appearance: No Apparent Distress, WD/WN, Chronically ill, Obese Respiratory: Lungs Clear, No Accessory Muscle Use, No Respiratory Distress, Decreased Breath Sounds Cardiovascular: Regular Rate, Rhythm Neurologic/Psychiatric: Alert, Oriented x3, No Motor/Sensory Deficits, Normal Mood/Affect Results/Procedures Lab Laboratory Tests 10/12/20 02:30 Patient resulted labs reviewed. Assessment/Plan Assessment and Plan Assess & Plan/Chief Complaint Assessment: COVID-19 PNA Hypoxia Asthma Myasthenia gravis Obesity RALPH on CPAP DM HTN HLP Right sided PE Plan: COVID-19 treatment O2 Supportive care High risk for intubation 10/07/20: ICU High risk for intubation Steroids 10/08/20: Lasix Xanax Os Vapotherm Monitor closely 10/09/20: Xanax COVID treatment Monitor O2 sats 10/10/20: ICU status Monitor closely for intubation need 10/11/20: Intubation risk Check CXR 10/12/20: Lovenox Abx Steroids Vapotherm Clinical Quality Measures DVT/VTE Risk/Contraindication: Risk Factor Score Per Nursin RFS Level Per Nursing on Admit: 4+=Very High FABIENNE ZAMORA DO Oct 12, 2020 07:29
[2020-10-12] MEDS: CALCIUM CARB + VIT D 600 MG (CALCARB + D) TAB PO SCH ×2 (08:12→16:36)
[2020-10-12] MEDS: LORATADINE (CLARITIN) 10 MG TAB PO SCH (08:12)
[2020-10-12] MEDS: PANTOPRAZOLE 40 MG (PROTONIX) TAB PO SCH (08:12)
[2020-10-12] MEDS: cloNIDine 0.1 MG (CATAPRES) TAB PO SCH ×3 (08:12→20:09)
[2020-10-12] MEDS: MONTELUKAST 10 MG (SINGULAIR) TAB PO SCH (08:12)
[2020-10-12] MEDS: KCL 10 MEQ TAB (MICRO K) PO SCH (08:13)
[2020-10-12] MEDS: LEVOTHYROXINE 50 MCG (LEVOTHROID) TAB PO SCH (08:13)
[2020-10-12] MEDS: LOSARTAN 50 MG (COZAAR) TAB PO SCH (08:13)
[2020-10-12] MEDS: TRIAMTERENE/HCTZ 75-50 (MAXZIDE,DYAZIDE) TABLET PO SCH (08:13)
--- NOTE | 2020-10-12 08:24 | Diagnostic Imaging Report ---
INDICATION: Pneumonia. COMPARISON: 10/03/2020 FINDINGS: There is cardiomegaly. There are diffuse bilateral pulmonary infiltrates. There is no pleural effusion or pneumothorax. The mediastinum is unremarkable. IMPRESSION: 1. Diffuse bilateral pulmonary infiltrates, suspect for atypical pneumonia likely, Covid. 2. Cardiomegaly. Dictated by: Dictated on workstation # [id number]
[2020-10-12] MEDS: guaiFENesin/DM (ROBITUSSIN DM) 10 ML UDC PO PRN (20:09)
[2020-10-13] MEDS: methylPREDNISolone 125 MG (Solu-MEDROL) VIAL IVP SCH ×4 (01:42→15:38)
[2020-10-13] MEDS: ENOXAPARIN 300 MG/3 ML (LOVENOX) MULTI-DOSE VIAL SQ SCH ×2 (01:43→11:42)
[2020-10-13] MEDS: RT-ALBUTEROL INHALER HFA (VENTOLIN HFA) 18 GM IH SCH ×4 (03:12→22:08)
[2020-10-13 03:48] LABS: BASOPHILS % (AUTO) 0 % (0-10); EOSINOPHILS % (AUTO) 0 % (0-10); HEMATOCRIT 39 % (35-52); HEMOGLOBIN 12.4 g/dL (11.5-16.0); LYMPHOCYTES # (AUTO) 0.5 10^3/uL (1.0-4.0); LYMPHOCYTES % (AUTO) 5 % (12-44); MEAN CORPUSCULAR HEMOGLOBIN 29 pg (25-34); MEAN CORPUSCULAR HGB CONC 32 g/dL (32-36); MEAN CORPUSCULAR VOLUME 92 fL (80-99); MEAN PLATELET VOLUME 9.9 fL (9.0-12.2); MONOCYTES # (AUTO) 0.4 10^3/uL (0.0-1.0); MONOCYTES % (AUTO) 4 % (0-12); NEUTROPHILS # (AUTO) 8.1 10^3/uL (1.8-7.8); NEUTROPHILS % (AUTO) 86 % (42-75); PLATELET COUNT 331 10^3/uL (130-400); WHITE BLOOD COUNT 9.4 10^3/uL (4.3-11.0)
[2020-10-13 03:59] LABS: CHLORIDE 96 MMOL/L (98-107); POTASSIUM 4.6 MMOL/L (3.6-5.0); SODIUM 132 MMOL/L (135-145)
[2020-10-13 04:01] LABS: CALCIUM 8.7 MG/DL (8.5-10.1); GLUCOSE 252 MG/DL (70-105)
[2020-10-13 04:03] LABS: CARBON DIOXIDE 27 MMOL/L (21-32)
[2020-10-13 04:05] LABS: GFR ESTIMATED > 60; PHOSPHORUS 3.8 MG/DL (2.3-4.7)
[2020-10-13 04:06] LABS: BUN/CREATININE RATIO 34
[2020-10-13 04:07] LABS: MAGNESIUM 2.4 MG/DL (1.6-2.4)
--- NOTE | 2020-10-13 05:48 | Pulmonary Consultation ---
History of Present Illness History of Present Illness Date Seen by Provider: Oct 13, 2020 Time Seen by Provider: 05:44 Date of Admission Allergies and Home Medications Allergies Coded Allergies: adhesive tape (Verified Allergy, Intermediate, 02/21/20) BLISTERS AND RAW SKIN amlodipine (Verified Allergy, Unknown, 02/22/13) erythromycin base (Verified Allergy, Unknown, 02/22/13) Uncoded Allergies: ALMONDS (Adverse Reaction, Mild, 02/22/20) SHE HAS PAIN ALL OVER WHEN SHE EATS THEM Home Medications Albuterol Sulfate 1 Puff Puff, 2 PUFF INH Q4H PRN for SHORTNESS OF BREATH, (Reported) Atorvastatin Calcium 20 Mg Tablet, 20 MG PO DAILY, (Reported) Calcium Carbonate/Vitamin D3 1 Each Tablet, 1 EACH PO BID, (Reported) Cetirizine HCl 10 Mg Tablet, 10 MG PO DAILY, (Reported) Citalopram Hydrobromide 20 Mg Tablet, 20 MG PO HS, (Reported) Clonidine HCl 0.1 Mg Tablet, 0.1 MG PO BID, (Reported) Fluticasone/Vilanterol 1 Each Blst.w.dev, 1 PUFF INH DAILY, (Reported) Levothyroxine Sodium 50 Mcg Tablet, 50 MCG PO DAILY, (Reported) Losartan Potassium 50 Mg Tablet, 50 MG PO DAILY, (Reported) Melatonin 5 Mg Tablet, 5 MG PO HS PRN for SLEEP, (Reported) Montelukast Sodium 10 Mg Tablet, 10 MG PO DAILY, (Reported) Ondansetron 8 Mg Tab.rapdis, 8 MG PO Q8H PRN for NAUSEA/VOMITING-1ST LINE, (Reported) Pantoprazole Sodium 40 Mg Tablet.dr, 40 MG PO DAILY, (Reported) Potassium Chloride 10 Meq Tablet.er, 10 MEQ PO DAILY, (Reported) Prednisone 10 Mg Tab, 10 MG PO DAILY, (Reported) Tiotropium [place] 4 Gm Mist.inhal, 2 PUFF INH DAILY, (Reported) Triamterene/Hydrochlorothiazid 1 Each Capsule, 1 CAP PO DAILY, (Reported) 04-03-2020 #100/100 DAY SUPPLY Past Ttkqygb-Gfafra-Wbdqlf Hx Past Med/Social Hx: Reviewed Nursing Past Med/Soc Hx, Reviewed and Corrections made Patient Social History Alcohol Use: Denies Use Recreational Drug Use: No Smoking Status: Never a Smoker 2nd Hand Smoke Exposure: No Recent Foreign Travel: No Contact w/Someone Who Travel: No Recent Infectious Disease Expo: No Recent Hopitalizations: Yes ( FOR INPATIENT REHAB) Physical Abuse: No Sexual Abuse: No Mistreated: No Fear: No Immunizations Up To Date Tetanus Booster (TDap): Less than 5yrs PED Vaccines UTD: Yes Date of Pneumonia Vaccine: Jan 04, 2018 Date of Influenza Vaccine: Sep 12, 2020 Seasonal Allergies Seasonal Allergies: Yes Past Medical History Surgeries: Yes (FOOT SURGERY,LEFT LUMPECTOMY, R KNEE MINISCUS REPAIR) Orthopedic Respiratory: Yes (CHRONIC COUGH) Asthma, Sleep Apnea Currently Using CPAP: Yes Currently Using BIPAP: No Cardiac: Yes Chronic Edema/Swelling, Deep Vein Thrombosis, High Cholesterol, Hypertension Neurological: Yes Neuropathy 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 Disorders: No MOONER History: Menopausal Sexually Transmitted Disease: No Genitourinary: Yes Bladder Infection Gastrointestinal: No Musculoskeletal: Yes Arthritis, Rheumatoid Arthritis Endocrine: Yes (OBESITY) Hypothyroidsim, Diabetes, Non-Insulin dep HEENT: No Double Vision Loss of Vision: Denies Hearing Impairment: Denies Cancer: No Psychosocial: No Integumentary: No Blood Disorders: No Adverse Reaction/Blood Tranf: No Family Medical History Alcoholism G8 BROTHER G8 SISTER Alzheimer's disease 19 MOTHER Arthritis 19 FATHER Asthma G8 SISTER Cardiovascular disease 19 FATHER Cataracts 19 FATHER Coronary thrombosis 19 FATHER Deafness or hearing loss SON Diabetes mellitus 19 FATHER G8 SISTER G8 SISTER Drug abuse G8 SISTER Hypertension 19 FATHER G8 SISTER G8 SISTER Kidney disease 19 FATHER Respiratory disorder G8 SISTER G8 SISTER Seizure disorder SON Severe allergy SON Heart Disease, Diabetes, Hypertension Sepsis Event Evaluation Height, Weight, BMI Height: 5'6.00" Weight: 297lbs. 0.0oz. 134.504797db; 55.57 BMI Method:Stated Exam Exam Vital Signs Date Time Temp Pulse Resp B/P (MAP) Pulse Ox O2 Delivery O2 Flow Rate FiO2 10/13/20 03:12 94 Vapotherm 35.00 55 10/13/20 03:00 51 26 140/83 93 Vapotherm 35.00 55.00 10/13/20 02:00 54 25 134/77 92 Vapotherm 35.00 55.00 10/13/20 01:48 61 25 92 Vapotherm 35.00 55.00 10/13/20 01:00 57 10/13/20 01:00 62 28 132/79 94 Vapotherm 35.00 85.00 10/13/20 00:00 54 27 130/70 95 Vapotherm 35.00 85.00 10/12/20 23:00 61 29 123/72 97 Vapotherm 35.00 85.00 10/12/20 22:00 68 27 123/61 92 Vapotherm 35.00 85.00 10/12/20 21:44 97 Vapotherm 35.00 100 10/12/20 21:00 65 32 131/76 97 Vapotherm 35.00 85.00 10/12/20 20:00 92 Vapotherm 35.00 100 10/12/20 20:00 82 24 150/90 97 Vapotherm 35.00 85.00 10/12/20 19:00 65 10/12/20 19:00 68 27 144/75 100 Vapotherm 35.00 85.00 10/12/20 18:00 80 27 120/96 92 Vapotherm 35.00 85.00 10/12/20 17:00 69 25 162/77 89 Vapotherm 35.00 85.00 10/12/20 16:16 36.6 10/12/20 16:00 59 22 145/82 96 Vapotherm 35.00 85.00 10/12/20 15:00 67 28 129/69 96 Vapotherm 35.00 85.00 10/12/20 14:47 96 Vapotherm 35.00 85 10/12/20 14:00 101 27 Vapotherm 35.00 80.00 10/12/20 13:00 83 10/12/20 13:00 72 28 122/73 Vapotherm 35.00 80.00 10/12/20 12:00 81 23 113/55 Vapotherm 35.00 80.00 10/12/20 11:00 64 24 162/87 91 Vapotherm 35.00 80.00 10/12/20 10:00 70 27 161/92 94 Vapotherm 35.00 80.00 10/12/20 09:00 67 18 152/88 96 Vapotherm 35.00 80.00 10/12/20 08:00 94 Vapotherm 35.00 80 10/12/20 08:00 70 27 154/85 93 Vapotherm 35.00 80.00 10/12/20 07:03 93 Vapotherm 35.00 80 10/12/20 07:00 93 34 149/108 91 Vapotherm 35.00 80.00 10/12/20 07:00 73 10/12/20 06:06 60 28 164/92 90 Vapotherm 35.00 80.00 I & O 10/13/20 07:00 Intake Total 985 ml Output Total 1325 ml Balance -340 ml Height & Weight Height: 5'6.00" Weight: 297lbs. 0.0oz. 134.225061ys; 55.57 BMI Method:Stated General Appearance: No Apparent Distress, WD/WN, Chronically ill, Obese HEENT: PERRL/EOMI, Normal ENT Inspection, Pharynx Normal, Moist Mucous Membranes Neck: Full Range of Motion, Normal Inspection, Non Tender Respiratory: Lungs Clear, No Accessory Muscle Use, No Respiratory Distress, Decreased Breath Sounds Cardiovascular: Regular Rate, Rhythm Capillary Refill: Less Than 3 Seconds Extremity: Pedal Edema Neurologic/Psychiatric: Alert, Oriented x3, No Motor/Sensory Deficits, Normal Mood/Affect Skin: Normal Color, Warm/Dry Lymphatic: No Adenopathy Results Lab Laboratory Tests 10/12/20 02:30 10/13/20 03:30 Assessment/Plan Assessment/Plan Acute respiratory failure secondary to COVID PNA -Currently on Vapotherm 55% -Dx 10/01 and admitted on 10/06 AsthmaAE -Solumedrol -Duoneb RALPH with CPAP therapy Morbid obesity Hx of Myasthenia Gravis JENNY TORRES DO Oct 13, 2020 05:48
[2020-10-13] MEDS: inSUlin ASPART (NovoLOG) 1 UNIT/0.01 ML (CHARGE PER UNIT) SQ SCH ×4 (07:05→20:29)
[2020-10-13] MEDS: UMECLIDINIUM BROMIDE (INCRUSE ELLIPTA) 7'S IH SCH (07:13)
[2020-10-13] MEDS: ADVAIR HFA 115/21 MCG INHALER 8 GM IH SCH (07:13)
--- NOTE | 2020-10-13 08:14 | Progress Note - Hospitalist ---
Subjective HPI/CC On Admission Date Seen by Provider: Oct 13, 2020 Time Seen by Provider: 10:00 CC: SOB due to Covid-19 HPI: This is a 60yoWF clinic Pt of [facility] with a new diagnosis of Myasthenia Gravis 2.5 months ago, sent up to and received plasmaphoresis five rounds, who presents after the rest of her family was tested for Covid and she became more and more symptomatic with hypoxia. She has been placed on Remdesivir protocol with Decadron and Convalescent plasma and will receive close monitoring due to high risk for complete respiratory failure and ventilator dependence due to morbid obesity, RALPH, Myasthenia Gravis with respiratory issues along with her chronic asthma. Subjective/Events-last exam Pt doing pretty well Had been down on the Vapotherm but she did get up and move so they had to increase it up quite a bit Myasthenia Gravis seems to be doing pretty well Dr. Frey appreciated Review of Systems General: Fatigue, Malaise Pulmonary: Dyspnea, Cough Objective Exam Vital Signs Vital Signs Date Time Temp Pulse Resp B/P (MAP) Pulse Ox O2 Delivery O2 Flow Rate FiO2 10/14/20 03:20 26 96 70.00 10/14/20 01:00 62 10/14/20 00:00 36.5 10/13/20 22:09 Vapotherm 70 10/13/20 18:00 125/74 Capillary Refill : Less Than 3 Seconds General Appearance: No Apparent Distress, WD/WN, Chronically ill, Obese Respiratory: Chest Non Tender, Lungs Clear, Normal Breath Sounds, No Accessory Muscle Use, No Respiratory Distress, Decreased Breath Sounds Cardiovascular: Regular Rate, Rhythm, No Edema, No Gallop, No JVD, No Murmur, Normal Peripheral Pulses Neurologic/Psychiatric: Alert, Oriented x3, No Motor/Sensory Deficits, Normal Mood/Affect Results/Procedures Lab Laboratory Tests 10/14/20 03:01 Patient resulted labs reviewed. Assessment/Plan Assessment and Plan Assess & Plan/Chief Complaint Assessment: COVID-19 PNA Hypoxia Asthma Myasthenia gravis Obesity RALPH on CPAP DM HTN HLP Right sided PE Plan: COVID-19 treatment O2 Supportive care High risk for intubation 10/07/20: ICU High risk for intubation Steroids 10/08/20: Lasix Xanax Os Vapotherm Monitor closely 10/09/20: Xanax COVID treatment Monitor O2 sats 10/10/20: ICU status Monitor closely for intubation need 10/11/20: Intubation risk Check CXR 10/12/20: Lovenox Abx Steroids Vapotherm 10/13/20: High risk for decompensation Monitor MG Monitor lung status Clinical Quality Measures DVT/VTE Risk/Contraindication: Risk Factor Score Per Nursin RFS Level Per Nursing on Admit: 4+=Very High FABIENNE ZAMORA DO Oct 13, 2020 08:13
[2020-10-13] MEDS: LORATADINE (CLARITIN) 10 MG TAB PO SCH (08:59)
[2020-10-13] MEDS: cloNIDine 0.1 MG (CATAPRES) TAB PO SCH ×3 (08:59→20:28)
[2020-10-13] MEDS: TRIAMTERENE/HCTZ 75-50 (MAXZIDE,DYAZIDE) TABLET PO SCH (08:59)
[2020-10-13] MEDS: LOSARTAN 50 MG (COZAAR) TAB PO SCH (08:59)
[2020-10-13] MEDS: MONTELUKAST 10 MG (SINGULAIR) TAB PO SCH (08:59)
[2020-10-13] MEDS: CALCIUM CARB + VIT D 600 MG (CALCARB + D) TAB PO SCH ×2 (09:00→15:38)
[2020-10-13] MEDS: PANTOPRAZOLE 40 MG (PROTONIX) TAB PO SCH (09:00)
[2020-10-13] MEDS: LEVOTHYROXINE 50 MCG (LEVOTHROID) TAB PO SCH (09:03)
[2020-10-13] MEDS: KCL 10 MEQ TAB (MICRO K) PO SCH (09:03)
--- NOTE | 2020-10-13 17:15 | NUR ---
Note avg PO intake <25% meals, per chart review. Would recommend continuation of current diet order of CHO 60g/m 1snack diet; along with current supplementation order of Glucerna with meals TID, for increased kcal intake. Will continue to follow and reassess as pt needs, intake, and status change. Cristy Deleon MS RD LD [phone] cell
[2020-10-13 23:51] VITALS: BP 110/67
[2020-10-14] MEDS: methylPREDNISolone 125 MG (Solu-MEDROL) VIAL IVP SCH ×5 (00:49→23:56)
[2020-10-14] MEDS: ENOXAPARIN 300 MG/3 ML (LOVENOX) MULTI-DOSE VIAL SQ SCH ×3 (00:50→23:57)
[2020-10-14 03:14] LABS: BASOPHILS % (AUTO) 0 % (0-10); EOSINOPHILS % (AUTO) 0 % (0-10); HEMATOCRIT 39 % (35-52); HEMOGLOBIN 12.5 g/dL (11.5-16.0); LYMPHOCYTES # (AUTO) 0.5 10^3/uL (1.0-4.0); LYMPHOCYTES % (AUTO) 4 % (12-44); MEAN CORPUSCULAR HEMOGLOBIN 29 pg (25-34); MEAN CORPUSCULAR HGB CONC 32 g/dL (32-36); MEAN CORPUSCULAR VOLUME 92 fL (80-99); MEAN PLATELET VOLUME 9.9 fL (9.0-12.2); MONOCYTES # (AUTO) 0.5 10^3/uL (0.0-1.0); MONOCYTES % (AUTO) 4 % (0-12); NEUTROPHILS # (AUTO) 10.2 10^3/uL (1.8-7.8); NEUTROPHILS % (AUTO) 86 % (42-75); PLATELET COUNT 366 10^3/uL (130-400); WHITE BLOOD COUNT 11.9 10^3/uL (4.3-11.0)
[2020-10-14 03:20] VITALS: BP 138/83
[2020-10-14] MEDS: RT-ALBUTEROL INHALER HFA (VENTOLIN HFA) 18 GM IH SCH ×4 (03:20→21:42)
[2020-10-14 03:25] LABS: CHLORIDE 97 MMOL/L (98-107); POTASSIUM 4.7 MMOL/L (3.6-5.0); SODIUM 134 MMOL/L (135-145)
[2020-10-14 03:26] LABS: CALCIUM 8.5 MG/DL (8.5-10.1)
[2020-10-14 03:27] LABS: GLUCOSE 234 MG/DL (70-105)
[2020-10-14 03:28] LABS: CARBON DIOXIDE 27 MMOL/L (21-32)
[2020-10-14 03:31] LABS: CREATININE SERUM 0.84 MG/DL (0.60-1.30); GFR ESTIMATED > 60; PHOSPHORUS 3.8 MG/DL (2.3-4.7)
[2020-10-14 03:32] LABS: BUN/CREATININE RATIO 35
[2020-10-14 03:33] LABS: MAGNESIUM 2.5 MG/DL (1.6-2.4)
--- NOTE | 2020-10-14 04:14 | Pulmonary Progress Note ---
Subjective Time Seen by a Provider: 04:14 Sepsis Event Evaluation Height, Weight, BMI Height: 5'6.00" Weight: 297lbs. 0.0oz. 134.536116md; 55.57 BMI Method:Stated Exam Exam Vital Signs Date Time Temp Pulse Resp B/P (MAP) Pulse Ox O2 Delivery O2 Flow Rate FiO2 10/14/20 03:20 26 96 70.00 10/14/20 00:00 36.5 10/13/20 23:51 23 96 70.00 10/13/20 22:09 94 Vapotherm 35.00 70 10/13/20 20:00 94 Vapotherm 35.00 75 10/13/20 20:00 36.2 Vapotherm 35.00 75.00 10/13/20 18:00 67 29 125/74 94 Vapotherm 40.00 80.00 10/13/20 17:00 76 14 105/61 91 Vapotherm 40.00 80.00 10/13/20 16:00 78 36 107/61 91 Vapotherm 40.00 80.00 10/13/20 15:00 72 28 113/71 98 Vapotherm 40.00 80.00 10/13/20 14:38 97 Vapotherm 35.00 55 10/13/20 14:00 60 20 118/61 97 Vapotherm 40.00 80.00 10/13/20 13:00 74 18 121/69 96 Vapotherm 40.00 80.00 10/13/20 12:41 70 10/13/20 12:00 72 26 111/83 94 Vapotherm 40.00 80.00 10/13/20 11:59 36.3 10/13/20 11:00 61 27 131/81 98 Vapotherm 40.00 80.00 10/13/20 10:00 93 33 111/66 95 Vapotherm 40.00 80.00 10/13/20 09:05 35.7 77 26 157/79 90 Vapotherm 40.00 80.00 10/13/20 09:00 69 19 157/79 86 Vapotherm 35.00 55.00 10/13/20 08:00 93 Vapotherm 35.00 80 10/13/20 08:00 61 14 157/68 94 Vapotherm 35.00 55.00 10/13/20 07:14 92 Vapotherm 35.00 55 10/13/20 07:00 64 22 154/87 91 Vapotherm 35.00 55.00 10/13/20 06:43 86 10/13/20 06:00 53 21 120/70 93 Vapotherm 35.00 55.00 10/13/20 05:00 55 33 140/75 92 Vapotherm 35.00 55.00 I & O 10/14/20 07:00 Intake Total 1060 ml Output Total 1400 ml Balance -340 ml Height & Weight Height: 5'6.00" Weight: 297lbs. 0.0oz. 134.687949tv; 55.57 BMI Method:Stated General Appearance: No Apparent Distress, WD/WN, Chronically ill, Obese HEENT: PERRL/EOMI, Normal ENT Inspection, Pharynx Normal, Moist Mucous Membranes Neck: Full Range of Motion, Normal Inspection, Non Tender Respiratory: Lungs Clear, No Accessory Muscle Use, No Respiratory Distress, Decreased Breath Sounds Cardiovascular: Regular Rate, Rhythm Capillary Refill: Less Than 3 Seconds Extremity: Pedal Edema Neurologic/Psychiatric: Alert, Oriented x3, No Motor/Sensory Deficits, Normal Mood/Affect Skin: Normal Color, Warm/Dry Lymphatic: No Adenopathy Results Lab Laboratory Tests 10/13/20 03:30 10/14/20 03:01 Assessment/Plan Assessment/Plan Acute respiratory failure secondary to COVID PNA -Currently on Vapotherm 55% -Dx 10/01 and admitted on 10/06 AsthmaAE -Solumedrol -Duoneb RALPH with CPAP therapy Morbid obesity Hx of Myasthenia Gravis JENNY TORRES DO Oct 14, 2020 04:14
[2020-10-14] MEDS: KCL 20 MEQ TAB (K-DUR) PO SCH (04:17)
[2020-10-14] MEDS: MAGNESIUM 1 GM/100 ML IVPB 100 ML IV SCH (04:17)
[2020-10-14] MEDS: POTASSIUM CL 10MEQ/50ML IVPB 50 ML IV SCH (04:17)
[2020-10-14] MEDS: inSUlin ASPART (NovoLOG) 1 UNIT/0.01 ML (CHARGE PER UNIT) SQ SCH ×4 (05:16→21:33)
[2020-10-14] MEDS: cloNIDine 0.1 MG (CATAPRES) TAB PO SCH ×3 (08:24→21:08)
[2020-10-14] MEDS: PANTOPRAZOLE 40 MG (PROTONIX) TAB PO SCH (08:24)
[2020-10-14] MEDS: TRIAMTERENE/HCTZ 75-50 (MAXZIDE,DYAZIDE) TABLET PO SCH (08:24)
[2020-10-14] MEDS: LOSARTAN 50 MG (COZAAR) TAB PO SCH (08:24)
[2020-10-14] MEDS: MONTELUKAST 10 MG (SINGULAIR) TAB PO SCH (08:25)
[2020-10-14] MEDS: LORATADINE (CLARITIN) 10 MG TAB PO SCH (08:25)
[2020-10-14] MEDS: LEVOTHYROXINE 50 MCG (LEVOTHROID) TAB PO SCH (08:25)
[2020-10-14] MEDS: KCL 10 MEQ TAB (MICRO K) PO SCH (08:25)
[2020-10-14] MEDS: CALCIUM CARB + VIT D 600 MG (CALCARB + D) TAB PO SCH ×2 (08:25→17:49)
--- NOTE | 2020-10-14 08:39 | NUR ---
BEDSIDE VITALS ARE NIF -20 MEP 45 RR 24 VC 1.05
[2020-10-14] MEDS: ADVAIR HFA 115/21 MCG INHALER 8 GM IH SCH (08:40)
[2020-10-14] MEDS: UMECLIDINIUM BROMIDE (INCRUSE ELLIPTA) 7'S IH SCH (08:45)
--- NOTE | 2020-10-14 08:45 | Progress Note - Hospitalist ---
Subjective HPI/CC On Admission Date Seen by Provider: Oct 14, 2020 Time Seen by Provider: 10:30 CC: SOB due to Covid-19 HPI: This is a 60yoWF clinic Pt of mine with a new diagnosis of Myasthenia Gravis 2.5 months ago, sent up to and received plasmaphoresis five rounds, who presents after the rest of her family was tested for Covid and she became more and more symptomatic with hypoxia. She has been placed on Remdesivir protocol with Decadron and Convalescent plasma and will receive close monitoring due to high risk for complete respiratory failure and ventilator dependence due to morbid obesity, RALPH, Myasthenia Gravis with respiratory issues along with her chronic asthma. Subjective/Events-last exam Patient is stable Reviewed chart data Objective Exam Vital Signs Vital Signs Date Time Temp Pulse Resp B/P (MAP) Pulse Ox O2 Delivery O2 Flow Rate FiO2 10/15/20 04:36 36.0 63 24 132/83 98 NIV CPAP 60.00 10/14/20 21:44 60 Capillary Refill : Less Than 3 Seconds General Appearance: Chronically ill Results/Procedures Lab Patient resulted labs reviewed. Assessment/Plan Assessment and Plan Assess & Plan/Chief Complaint Assessment: COVID-19 PNA Hypoxia Asthma Myasthenia gravis Obesity RALPH on CPAP DM HTN HLP Right sided PE Plan: COVID-19 treatment O2 Supportive care High risk for intubation 10/07/20: ICU High risk for intubation Steroids 10/08/20: Lasix Xanax Os Vapotherm Monitor closely 10/09/20: Xanax COVID treatment Monitor O2 sats 10/10/20: ICU status Monitor closely for intubation need 10/11/20: Intubation risk Check CXR 10/12/20: Lovenox Abx Steroids Vapotherm 10/13/20: High risk for decompensation Monitor MG Monitor lung status 10/14/20: Appreciate Dr Frey Clinical Quality Measures DVT/VTE Risk/Contraindication: Risk Factor Score Per Nursin RFS Level Per Nursing on Admit: 4+=Very High FABIENNE ZAMORA DO Oct 14, 2020 08:45
--- NOTE | 2020-10-14 14:23 | Physician Query Clarification ---
"Physician Query-General Query to Physician: The medical record reflects the following clinical scenario: History/Risk factors: Covid 19, PNA, Morbid Obesity Clinical Findings: Supplemental 02 needs up to 80% FIO for greater than 4 days, RR 20-30 consistently, accessory muscle use, SOA with minimal Activity Treatment: Supplemental 02/Vapotherm, Albuterol Breathing RX, IV Solumedrol Question: Do you agree with the impression of Acute Hypoxic Respiratory failure per Dr. Frey? If you agree, please document in Progress Notes or Discharge Summary. 1. Yes; will document Acute Hypoxic Respiratory Failure t diagnosis in the Progress Notes/Discharge Summary 2. No; will continue to document Hypoxia in the Progress Notes/Discharge Summary 3. Other; will document explanation of clinical findings 4. Clinically undetermined; no explanation for clinical findings Please remember a lack of response to the above will prompt a phone page by CDI/coding staff. In responding to this query, please exercise your independent professional judgment. The purpose of this communication is to more accurately reflect the complexity of your patients condition. The fact that a question is asked does not imply that any particular answer is desired or expected. Thank you for timely response to this clarification. Barbara Gong, MSN, RN RN Specialist-Clinical Doc Improvement CD -Health Info Mgmt Operations [address] [facility] t: [phone] | f: [phone] If you are unable to reach me at my extension, I may be working from home. Please contact me at [phone] PHYSICIAN RESPONSE: Based on the clinical findings in the record, please respond to the query above on this document as an addendum. Physician Response: Physician Response 1 If you have questions please contact: Plate Slitter And Inspector: Ext: Thank you for your time and cooperation. Clinical Product Development Actuary/Plate Slitter And Inspector This is a permanent part of the medical record BARBARA GONG Oct 14, 2020 14:23 FABIENNE ZAMORA DO Oct 14, 2020 19:26"
[2020-10-15] MEDS: RT-ALBUTEROL INHALER HFA (VENTOLIN HFA) 18 GM IH SCH ×4 (01:46→21:13)
[2020-10-15 01:47] VITALS: BP 138/83
[2020-10-15 05:31] LABS: BASOPHILS % (AUTO) 0 % (0-10); EOSINOPHILS % (AUTO) 0 % (0-10); HEMATOCRIT 39 % (35-52); HEMOGLOBIN 12.4 g/dL (11.5-16.0); LYMPHOCYTES # (AUTO) 0.6 10^3/uL (1.0-4.0); LYMPHOCYTES % (AUTO) 4 % (12-44); MEAN CORPUSCULAR HEMOGLOBIN 30 pg (25-34); MEAN CORPUSCULAR HGB CONC 32 g/dL (32-36); MEAN CORPUSCULAR VOLUME 93 fL (80-99); MEAN PLATELET VOLUME 10.9 fL (9.0-12.2); MONOCYTES # (AUTO) 0.6 10^3/uL (0.0-1.0); MONOCYTES % (AUTO) 4 % (0-12); NEUTROPHILS # (AUTO) 13.3 10^3/uL (1.8-7.8); NEUTROPHILS % (AUTO) 88 % (42-75); PLATELET COUNT 364 10^3/uL (130-400); WHITE BLOOD COUNT 15.1 10^3/uL (4.3-11.0)
[2020-10-15 05:33] LABS: CHLORIDE 97 MMOL/L (98-107); POTASSIUM 4.9 MMOL/L (3.6-5.0); SODIUM 134 MMOL/L (135-145)
[2020-10-15 05:34] LABS: CALCIUM 8.8 MG/DL (8.5-10.1)
[2020-10-15 05:35] LABS: GLUCOSE 241 MG/DL (70-105)
[2020-10-15 05:36] LABS: CARBON DIOXIDE 26 MMOL/L (21-32)
[2020-10-15 05:38] LABS: PHOSPHORUS 4.2 MG/DL (2.3-4.7)
--- NOTE | 2020-10-15 05:38 | Progress Note - Hospitalist ---
Subjective HPI/CC On Admission Date Seen by Provider: Oct 15, 2020 Time Seen by Provider: 10:00 CC: SOB due to Covid-19 HPI: This is a 60yoWF clinic Pt of mine with a new diagnosis of Myasthenia Gravis 2.5 months ago, sent up to and received plasmaphoresis five rounds, who presents after the rest of her family was tested for Covid and she became more and more symptomatic with hypoxia. She has been placed on Remdesivir protocol with Decadron and Convalescent plasma and will receive close monitoring due to high risk for complete respiratory failure and ventilator dependence due to morbid obesity, RALPH, Myasthenia Gravis with respiratory issues along with her chronic asthma. Subjective/Events-last exam Pt having a very slow recovery Spoke with social work, may need to look at [place] Goes from BiPAP to Vapotherm Very slow to improve Dr. Frey and I conferred Review of Systems Pulmonary: Dyspnea, Cough Objective Exam Vital Signs Vital Signs Date Time Temp Pulse Resp B/P (MAP) Pulse Ox O2 Delivery O2 Flow Rate FiO2 10/15/20 19:00 88 10/15/20 16:00 20 120/74 95 Vapotherm 35.00 60.00 10/15/20 15:23 60 10/15/20 04:36 36.0 Capillary Refill : Less Than 3 Seconds General Appearance: No Apparent Distress, WD/WN, Chronically ill, Obese Respiratory: Chest Non Tender, Lungs Clear, Normal Breath Sounds, No Accessory Muscle Use, No Respiratory Distress Cardiovascular: Regular Rate, Rhythm, No Edema, No Gallop, No JVD, No Murmur, Normal Peripheral Pulses Neurologic/Psychiatric: Alert, Oriented x3, No Motor/Sensory Deficits, Normal Mood/Affect Results/Procedures Lab Laboratory Tests 10/15/20 04:30 Patient resulted labs reviewed. Assessment/Plan Assessment and Plan Assess & Plan/Chief Complaint Assessment: COVID-19 PNA Hypoxia Asthma Myasthenia gravis Obesity RLAPH on CPAP DM HTN HLP Right sided PE Plan: COVID-19 treatment O2 Supportive care High risk for intubation 10/07/20: ICU High risk for intubation Steroids 10/08/20: Lasix Xanax Os Vapotherm Monitor closely 10/09/20: Xanax COVID treatment Monitor O2 sats 10/10/20: ICU status Monitor closely for intubation need 10/11/20: Intubation risk Check CXR 10/12/20: Lovenox Abx Steroids Vapotherm 10/13/20: High risk for decompensation Monitor MG Monitor lung status 10/14/20: Appreciate Dr Frey 10/15/20: Monitor O2 sat [place]? Clinical Quality Measures DVT/VTE Risk/Contraindication: Risk Factor Score Per Nursin RFS Level Per Nursing on Admit: 4+=Very High FABIENNE ZAMORA DO Oct 15, 2020 05:38
[2020-10-15 05:39] LABS: BUN/CREATININE RATIO 41; CREATININE SERUM 0.93 MG/DL (0.60-1.30); GFR ESTIMATED > 60
[2020-10-15 05:41] LABS: MAGNESIUM 2.7 MG/DL (1.6-2.4)
[2020-10-15] MEDS: POTASSIUM CL 10MEQ/50ML IVPB 50 ML IV SCH (05:42)
[2020-10-15] MEDS: KCL 20 MEQ TAB (K-DUR) PO SCH (05:43)
[2020-10-15 05:57] LABS: BAND NEUTROPHILS 2 %; LYMPHOCYTES % (MANUAL) 5 %; MONOCYTES % (MANUAL) 2 %; NEUTROPHILS % (MANUAL) 91 %; RBC MORPH NORMAL
[2020-10-15] MEDS: MAGNESIUM 1 GM/100 ML IVPB 100 ML IV SCH (06:01)
[2020-10-15] MEDS: methylPREDNISolone 125 MG (Solu-MEDROL) VIAL IVP SCH ×3 (06:21→17:26)
[2020-10-15] MEDS: inSUlin ASPART (NovoLOG) 1 UNIT/0.01 ML (CHARGE PER UNIT) SQ SCH ×4 (06:22→22:02)
[2020-10-15] MEDS: LORATADINE (CLARITIN) 10 MG TAB PO SCH (08:55)
[2020-10-15] MEDS: MONTELUKAST 10 MG (SINGULAIR) TAB PO SCH (08:55)
[2020-10-15] MEDS: cloNIDine 0.1 MG (CATAPRES) TAB PO SCH ×3 (08:55→22:02)
[2020-10-15] MEDS: CALCIUM CARB + VIT D 600 MG (CALCARB + D) TAB PO SCH ×2 (08:55→17:26)
[2020-10-15] MEDS: KCL 10 MEQ TAB (MICRO K) PO SCH (08:55)
[2020-10-15] MEDS: TRIAMTERENE/HCTZ 75-50 (MAXZIDE,DYAZIDE) TABLET PO SCH (08:55)
[2020-10-15] MEDS: PANTOPRAZOLE 40 MG (PROTONIX) TAB PO SCH (08:55)
[2020-10-15] MEDS: LEVOTHYROXINE 50 MCG (LEVOTHROID) TAB PO SCH (08:55)
[2020-10-15] MEDS: LOSARTAN 50 MG (COZAAR) TAB PO SCH (08:55)
--- NOTE | 2020-10-15 09:07 | NUR ---
Patient switched to Vapotherm for the day. Oxygen saturations at 80%. ICU Harness Builder and Respiratory therapy notified. Patient reports no distress, fingers are warm, pink.
[2020-10-15] MEDS: UMECLIDINIUM BROMIDE (INCRUSE ELLIPTA) 7'S IH SCH (09:10)
[2020-10-15] MEDS: ADVAIR HFA 115/21 MCG INHALER 8 GM IH SCH (09:10)
--- NOTE | 2020-10-15 09:59 | Pulmonary Progress Note ---
Subjective Date Seen by a Provider: Oct 15, 2020 Time Seen by a Provider: 09:22 Sepsis Event Evaluation Height, Weight, BMI Height: 5'6.00" Weight: 297lbs. 0.0oz. 134.492181mv; 55.57 BMI Method:Stated Exam Exam Vital Signs Date Time Temp Pulse Resp B/P (MAP) Pulse Ox O2 Delivery O2 Flow Rate FiO2 10/15/20 09:10 92 Vapotherm 30.00 60 10/15/20 08:48 89 79 132/83 80 Vapotherm 10/15/20 08:00 80 Vapotherm 35.00 60 10/15/20 04:36 36.0 63 24 132/83 98 NIV CPAP 60.00 10/15/20 01:47 26 97 60.00 10/15/20 01:00 74 10/15/20 00:02 36.6 67 25 109/67 98 NIV CPAP 60.00 10/14/20 23:00 67 26 155/88 97 Vapotherm 35.00 60.00 10/14/20 22:00 94 21 146/83 94 Vapotherm 35.00 60.00 10/14/20 21:44 90 Vapotherm 35.00 60 10/14/20 21:11 36.3 68 25 149/85 96 Vapotherm 35.00 60.00 10/14/20 21:00 94 Vapotherm 35.00 60 10/14/20 21:00 64 23 149/85 95 Vapotherm 35.00 60.00 10/14/20 20:00 68 24 144/84 94 Vapotherm 35.00 60.00 10/14/20 19:00 70 23 135/69 93 Vapotherm 35.00 60.00 10/14/20 19:00 71 10/14/20 16:00 89 32 140/81 86 Vapotherm 35.00 60.00 10/14/20 16:00 90 20 140/81 93 Vapotherm 35.00 60.00 10/14/20 15:48 36.4 10/14/20 15:29 94 Vapotherm 35.00 60 10/14/20 13:30 Vapotherm 35.00 60.00 10/14/20 12:42 76 10/14/20 12:00 78 23 151/96 96 Vapotherm 35.00 70.00 10/14/20 11:47 36.6 I & O 10/15/20 07:00 Intake Total 1670 ml Output Total 250 ml Balance 1420 ml Height & Weight Height: 5'6.00" Weight: 297lbs. 0.0oz. 134.617994kj; 55.57 BMI Method:Stated General Appearance: Chronically ill HEENT: PERRL/EOMI, Normal ENT Inspection, Pharynx Normal, Moist Mucous Membranes Neck: Full Range of Motion, Normal Inspection, Non Tender Respiratory: Chest Non Tender, Lungs Clear, Normal Breath Sounds, No Accessory Muscle Use, No Respiratory Distress, Decreased Breath Sounds Cardiovascular: Regular Rate, Rhythm, No Edema, No Gallop, No JVD, No Murmur, Normal Peripheral Pulses Capillary Refill: Less Than 3 Seconds Extremity: Pedal Edema Neurologic/Psychiatric: Alert, Oriented x3, No Motor/Sensory Deficits, Normal Mood/Affect Skin: Normal Color, Warm/Dry Lymphatic: No Adenopathy Results Lab Laboratory Tests 10/14/20 03:01 10/15/20 04:30 Assessment/Plan Assessment/Plan Acute respiratory failure secondary to COVID PNA -Currently on Vapotherm 55% -Dx 10/01 and admitted on 10/06 AsthmaAE -Solumedrol -Duoneb RALPH with CPAP therapy Morbid obesity Hx of Myasthenia Gravis JENNY TORRES DO Oct 15, 2020 09:59
--- NOTE | 2020-10-15 10:26 | Diagnostic Imaging Report ---
INDICATION: Short of air, hypoxia, COVID. FINDINGS: Upright portable chest shows cardiomegaly with normal vascularity. There has been a decrease in the bilateral infiltrates since 10/12/2020. Minimal infiltrates remain in the lower lobes. There is no effusion or pneumothorax. IMPRESSION: Improving chest. Dictated by: Dictated on workstation # [id number]
[2020-10-15] MEDS: ENOXAPARIN 300 MG/3 ML (LOVENOX) MULTI-DOSE VIAL SQ SCH (12:39)
--- NOTE | 2020-10-15 15:13 | NUR ---
CM/SS following with patient for discharge planning. CM/SS sent Norbert from [facility] a referral per the physicians request due to Mystenia Gravis and high oxygen need. CM/SS awaiting approval/denial.
--- NOTE | 2020-10-15 17:20 | NUR ---
RD ASSESSMENT PMHx: chronic bronchitis; pneumonia; DVT; hypercholesterolemia; HTN; myasthenia gravis (07/2020); TA, hypothyroidism; DM; PT INTERACTION: Note pt currently in COVID isolation, per chart review. Note all diet information for nutrition assessment is per Randa RN, or per chart review. Randa states current appetite appears pretty good. Note avg PO intake 43% x4d, per chart review. Randa states no issues with n/v/c/d that she is aware of. Note last BM was 10/14, and pt not currently on bowel regimen per chart review. Note recent 6# wt loss x3mon, per chart review. Note unable to determine current level of DM management, and unable to determine recent HbA1c, per chart review. ABNORMAL NUTRITION-RELATED LAB VALUES LOW: HIGH: Est. kcal needs: Est. Pro needs: PES STATEMENT: Inadequate oral intake (NI-2.1) related to loss of appetite as evidenced by chart review, communication with RN, and avg PO intake 43% x4d. INTERVENTION: Continue with current diet order of CHO 60g/m 1snack diet. Continue with current supplementation order of Glucerna with meals TID, for increased kcal intake. Provides 220 kcal and 10 g Pro per serving. Did not offer diet education on DM management d/t COVID isolation. Will continue to follow and reassess as pt needs, intake, and status change. Cristy Deleon, MS RD LD [phone] cell
[2020-10-15 23:56] VITALS: BP 118/76
[2020-10-16] MEDS: ENOXAPARIN 300 MG/3 ML (LOVENOX) MULTI-DOSE VIAL SQ SCH ×2 (00:40→12:25)
[2020-10-16] MEDS: methylPREDNISolone 125 MG (Solu-MEDROL) VIAL IVP SCH ×2 (00:40→06:53)
[2020-10-16 03:39] LABS: BASOPHILS # (AUTO) 0.1 10^3/uL (0.0-0.1); BASOPHILS % (AUTO) 0 % (0-10); EOSINOPHILS % (AUTO) 0 % (0-10); HEMATOCRIT 37 % (35-52); LYMPHOCYTES # (AUTO) 0.8 10^3/uL (1.0-4.0); LYMPHOCYTES % (AUTO) 5 % (12-44); MEAN CORPUSCULAR HEMOGLOBIN 30 pg (25-34); MEAN CORPUSCULAR HGB CONC 32 g/dL (32-36); MEAN CORPUSCULAR VOLUME 92 fL (80-99); MEAN PLATELET VOLUME 10.2 fL (9.0-12.2); MONOCYTES # (AUTO) 0.7 10^3/uL (0.0-1.0); MONOCYTES % (AUTO) 4 % (0-12); NEUTROPHILS # (AUTO) 15.2 10^3/uL (1.8-7.8); NEUTROPHILS % (AUTO) 86 % (42-75); PLATELET COUNT 338 10^3/uL (130-400); WHITE BLOOD COUNT 17.6 10^3/uL (4.3-11.0)
[2020-10-16] MEDS: RT-ALBUTEROL INHALER HFA (VENTOLIN HFA) 18 GM IH SCH ×4 (03:45→20:52)
[2020-10-16 04:15] LABS: POTASSIUM 4.7 MMOL/L (3.6-5.0)
[2020-10-16 04:17] LABS: CALCIUM 8.4 MG/DL (8.5-10.1)
[2020-10-16 04:21] LABS: CREATININE SERUM 1.02 MG/DL (0.60-1.30); PHOSPHORUS 3.9 MG/DL (2.3-4.7)
[2020-10-16 04:23] LABS: MAGNESIUM 2.7 MG/DL (1.6-2.4)
[2020-10-16] MEDS: inSUlin ASPART (NovoLOG) 1 UNIT/0.01 ML (CHARGE PER UNIT) SQ SCH ×4 (06:53→20:15)
[2020-10-16] MEDS: UMECLIDINIUM BROMIDE (INCRUSE ELLIPTA) 7'S IH SCH (06:58)
[2020-10-16] MEDS: ADVAIR HFA 115/21 MCG INHALER 8 GM IH SCH (06:58)
[2020-10-16] MEDS: KCL 20 MEQ TAB (K-DUR) PO SCH (07:17)
[2020-10-16] MEDS: MAGNESIUM 1 GM/100 ML IVPB 100 ML IV SCH (07:17)
[2020-10-16] MEDS: POTASSIUM CL 10MEQ/50ML IVPB 50 ML IV SCH (07:17)
[2020-10-16] MEDS: KCL 10 MEQ TAB (MICRO K) PO SCH (08:18)
[2020-10-16] MEDS: CALCIUM CARB + VIT D 600 MG (CALCARB + D) TAB PO SCH ×2 (08:18→17:58)
[2020-10-16] MEDS: LOSARTAN 50 MG (COZAAR) TAB PO SCH (08:18)
[2020-10-16] MEDS: LORATADINE (CLARITIN) 10 MG TAB PO SCH (08:18)
[2020-10-16] MEDS: cloNIDine 0.1 MG (CATAPRES) TAB PO SCH ×3 (08:18→20:14)
[2020-10-16] MEDS: TRIAMTERENE/HCTZ 75-50 (MAXZIDE,DYAZIDE) TABLET PO SCH (08:18)
[2020-10-16] MEDS: LEVOTHYROXINE 50 MCG (LEVOTHROID) TAB PO SCH (08:18)
[2020-10-16] MEDS: PANTOPRAZOLE 40 MG (PROTONIX) TAB PO SCH (08:18)
[2020-10-16] MEDS: MONTELUKAST 10 MG (SINGULAIR) TAB PO SCH (08:18)
--- NOTE | 2020-10-16 16:37 | NUR ---
CM/SS follow up. CM/SS spoke with Norbert regarding referral. He needed additional clinical documentation. CM/SS faxed the asked for documents. CM/SS will continue to follow.
--- NOTE | 2020-10-16 19:25 | Progress Note ---
Subjective Subjective/Events-last exam Pt is very pleasant and states she is very slowly improving. She is having some irritation on her bottom and requests cream for that. Objective Exam Last Set of Vital Signs Vital Signs Date Time Temp Pulse Resp B/P (MAP) Pulse Ox O2 Delivery O2 Flow Rate FiO2 10/16/20 19:16 36.4 75 18 122/69 93 Vapotherm 30.00 70.00 10/16/20 14:41 70 Capillary Refill : Less Than 3 Seconds I&O Intake and Output 10/16/20 00:00 Intake Total 1240 ml Output Total 850 ml Balance 390 ml Intake Oral 1240 ml Output Urine Total 850 ml General: Alert, No Acute Distress Lungs: Other (ronchi) Heart: Regular Rate, No Murmurs Neuro: Normal Speech Psych/Mental Status: Mood NL Results/Procedures Lab Laboratory Tests 10/15/20 20:49: Glucometer 318H 10/16/20 03:30: White Blood Count 17.6H, Red Blood Count 4.07, Hemoglobin 12.0, Hematocrit 37, Mean Corpuscular Volume 92, Mean Corpuscular Hemoglobin 30, Mean Corpuscular Hemoglobin Concent 32, Red Cell Distribution Width 13.6, Platelet Count 338, Mean Platelet Volume 10.2, Immature Granulocyte % (Auto) 5, Neutrophils (%) (Auto) 86H, Lymphocytes (%) (Auto) 5L, Monocytes (%) (Auto) 4, Eosinophils (%) (Auto) 0, Basophils (%) (Auto) 0, Neutrophils # (Auto) 15.2H, Lymphocytes # (Auto) 0.8L, Monocytes # (Auto) 0.7, Eosinophils # (Auto) 0.0, Basophils # (Auto) 0.1, Immature Granulocyte # (Auto) 0.9H, Sodium Level 130L, Potassium Level 4.7, Chloride Level 96L, Carbon Dioxide Level 24, Anion Gap 10, Blood Urea Nitrogen 41H, Creatinine 1.02, Estimat Glomerular Filtration Rate 55, BUN/Cr eatinine Ratio 40, Glucose Level 211H, Calcium Level 8.4L, Phosphorus Level 3.9, Magnesium Level 2.7H 10/16/20 11:27: Glucometer 267H 10/16/20 15:38: Glucometer 232H 10/16/20 19:14: Glucometer 257H Microbiology 11/22/20 Blood Culture - Final, Complete No growth Assessment/Plan Assessment/Plan Assessment & Plan COVID19 pneumonia- currently on Vapotherm at 60% FiO2, On solumedrol, tapering down per Dr. Frey. Persistently requiring significant respiratory support, [facility] PE- on treatment dose enoxaparin Myasthenia gravis- appears stable Asthma- fluticasone/salmeterol, umeclidinium Morbid obesity Clinical Quality Measures DVT/VTE Risk/Contraindication: Risk Factor Score Per Nursin RFS Level Per Nursing on Admit: 4+=Very High SHELTON TAVERAS MD Oct 16, 2020 19:25
[2020-10-16] MEDS: methylPREDNISolone 40 MG/ML (Solu-MEDROL) VIAL IVP SCH (20:14)
[2020-10-16 22:15] VITALS: BP 123/69
[2020-10-17] MEDS: ENOXAPARIN 300 MG/3 ML (LOVENOX) MULTI-DOSE VIAL SQ SCH (02:00)
[2020-10-17 03:26] LABS: BASOPHILS % (AUTO) 0 % (0-10); EOSINOPHILS % (AUTO) 0 % (0-10); HEMATOCRIT 37 % (35-52); HEMOGLOBIN 11.8 g/dL (11.5-16.0); LYMPHOCYTES # (AUTO) 0.9 10^3/uL (1.0-4.0); LYMPHOCYTES % (AUTO) 6 % (12-44); MEAN CORPUSCULAR HEMOGLOBIN 29 pg (25-34); MEAN CORPUSCULAR HGB CONC 32 g/dL (32-36); MEAN CORPUSCULAR VOLUME 92 fL (80-99); MEAN PLATELET VOLUME 10.6 fL (9.0-12.2); MONOCYTES # (AUTO) 0.6 10^3/uL (0.0-1.0); MONOCYTES % (AUTO) 4 % (0-12); NEUTROPHILS # (AUTO) 12.1 10^3/uL (1.8-7.8); NEUTROPHILS % (AUTO) 85 % (42-75); PLATELET COUNT 317 10^3/uL (130-400); WHITE BLOOD COUNT 14.3 10^3/uL (4.3-11.0)
[2020-10-17 03:40] LABS: POTASSIUM 4.9 MMOL/L (3.6-5.0)
[2020-10-17 03:41] LABS: CALCIUM 8.2 MG/DL (8.5-10.1)
[2020-10-17 03:42] VITALS: BP 105/68
[2020-10-17] MEDS: RT-ALBUTEROL INHALER HFA (VENTOLIN HFA) 18 GM IH SCH ×4 (03:42→19:27)
[2020-10-17 03:46] LABS: CREATININE SERUM 0.95 MG/DL (0.60-1.30)
[2020-10-17 03:48] LABS: MAGNESIUM 2.5 MG/DL (1.6-2.4)
[2020-10-17] MEDS: POTASSIUM CL 10MEQ/50ML IVPB 50 ML IV SCH (05:30)
[2020-10-17] MEDS: KCL 20 MEQ TAB (K-DUR) PO SCH (05:31)
[2020-10-17] MEDS: MAGNESIUM 1 GM/100 ML IVPB 100 ML IV SCH (05:31)
[2020-10-17] MEDS: inSUlin ASPART (NovoLOG) 1 UNIT/0.01 ML (CHARGE PER UNIT) SQ SCH ×4 (06:34→21:11)
--- NOTE | 2020-10-17 09:06 | Progress Note - Hospitalist ---
Subjective HPI/CC On Admission Date Seen by Provider: Oct 17, 2020 Time Seen by Provider: 08:00 CC: SOB due to Covid-19 HPI: This is a 60yoWF clinic Pt of [facility] with a new diagnosis of Myasthenia Gravis 2.5 months ago, sent up to and received plasmaphoresis five rounds, who presents after the rest of her family was tested for Covid and she became more and more symptomatic with hypoxia. She has been placed on Remdesivir protocol with Decadron and Convalescent plasma and will receive close monitoring due to high risk for complete respiratory failure and ventilator dependence due to morbid obesity, RALPH, Myasthenia Gravis with respiratory issues along with her chronic asthma. Subjective/Events-last exam Patient is awake and alert sitting up complains of weakness but says she is improving. She has significant hematuria in her Hagen catheter. Her only complaint is not being able to see her . Review of Systems Pulmonary: Dyspnea Neurological: Weakness Objective Exam Vital Signs Vital Signs Date Time Temp Pulse Resp B/P (MAP) Pulse Ox O2 Delivery O2 Flow Rate FiO2 10/17/20 15:09 36.2 66 20 109/61 95 Vapotherm 30.00 60.00 10/17/20 14:35 60 Capillary Refill : Less Than 3 Seconds General Appearance: Obese Neck: Limited Range of Motion Respiratory: Lungs Clear, Normal Breath Sounds, No Respiratory Distress Cardiovascular: Regular Rate, Rhythm, No Murmur Gastrointestinal: Non Tender, Soft Extremity: Pedal Edema Neurologic/Psychiatric: Alert, Oriented x3, No Motor/Sensory Deficits, Normal Mood/Affect Skin: Pallor Results/Procedures Lab Laboratory Tests 10/17/20 02:50 Patient resulted labs reviewed. Imaging: Reviewed Imaging Report Assessment/Plan Assessment and Plan Assess & Plan/Chief Complaint COVID19 pneumonia- currently on Vapotherm at 35% FiO2, On solumedrol, tapering down per Dr. Frey. Persistently requiring significant respiratory support, [facility]. Possible discharge to [place] in the morning PE-has had 7 days of therapeutic Lovenox will change to Eliquis especially hoping that the hematuria will improve Myasthenia gravis- appears stable Asthma- fluticasone/salmeterol, umeclidinium Morbid obesity Hematuria most likely secondary to blood thinners Type 2 diabetes with labile control Clinical Quality Measures DVT/VTE Risk/Contraindication: Risk Factor Score Per Nursin RFS Level Per Nursing on Admit: 4+=Very High MARY TAPIA MD Oct 17, 2020 09:06
[2020-10-17] MEDS: ADVAIR HFA 115/21 MCG INHALER 8 GM IH SCH (09:31)
[2020-10-17] MEDS: LOSARTAN 50 MG (COZAAR) TAB PO SCH (09:58)
[2020-10-17] MEDS: KCL 10 MEQ TAB (MICRO K) PO SCH (09:58)
[2020-10-17] MEDS: CALCIUM CARB + VIT D 600 MG (CALCARB + D) TAB PO SCH ×2 (09:58→16:45)
[2020-10-17] MEDS: PANTOPRAZOLE 40 MG (PROTONIX) TAB PO SCH (09:59)
[2020-10-17] MEDS: methylPREDNISolone 40 MG/ML (Solu-MEDROL) VIAL IVP SCH ×2 (09:59→21:10)
[2020-10-17] MEDS: LORATADINE (CLARITIN) 10 MG TAB PO SCH (09:59)
[2020-10-17] MEDS: cloNIDine 0.1 MG (CATAPRES) TAB PO SCH ×3 (09:59→21:11)
[2020-10-17] MEDS: LEVOTHYROXINE 50 MCG (LEVOTHROID) TAB PO SCH (09:59)
[2020-10-17] MEDS: TRIAMTERENE/HCTZ 75-50 (MAXZIDE,DYAZIDE) TABLET PO SCH (09:59)
[2020-10-17] MEDS: MONTELUKAST 10 MG (SINGULAIR) TAB PO SCH (09:59)
[2020-10-17] MEDS: UMECLIDINIUM BROMIDE (INCRUSE ELLIPTA) 7'S IH SCH (11:36)
[2020-10-17] MEDS: APIXABAN 5 MG (ELIQUIS) TABLET PO SCH ×2 (11:37→21:11)
--- NOTE | 2020-10-17 11:58 | NUR ---
CM/SS follow up. CM/SS received call from [facility] requesting additional information to send in for insurance. CM/SS faxed labs, vitals, medications, and progress notes. Addendum: 10/17/20 at 1257 by AFSHAN AVILA CM/SS contacted the patient's Corey to discuss the possibility of [facility]. CM/SS explained the processes of [facility] and location. He verbalized understanding but stated he would like to speak with Dr. Jimenez first to get her opinion. CM/SS will continue to follow for discharge planning.
--- NOTE | 2020-10-17 15:50 | NUR ---
JANI/HELENE follow up. JANI/HELENE received a call from Norbert at [facility] stating they have a bed open tomorrow and she was approved by insurance. However, this sw contacted the patient via phone to discuss the possibility of [facility]. JANI/HELENE explained what [facility] is and the process. She verbalized understanding and stated she needed to speak with her first. The patient was short of breath. JANI/HELENE received a phone call from the patient's Corey who was upset. He asked "did you just tell my she had to leave to [facility] by tomorrow?". JANI/SS informed him that this sw informed the patient [facility] had a bed available tomorrow if she was agreeable with plan. Corey verbalized understanding and started to calm down. He reports he needs to speak with Dr. Jimenez on Tuesday morning before anything can happen. He reports that he didn't want this sw to speak to his yet about it because she becomes anxious. JANI/HELENE verbalized understanding. JANI/HELENE informed the physician. Will continue to follow for discharge planning. Addendum: 10/17/20 at 1609 by AFSHAN AVILA CM/SS contacted Norbert to give him an update. Norbert reports the insurance approval is good for 7 days.
--- NOTE | 2020-10-17 18:20 | Pulmonary Progress Note ---
Subjective Date Seen by a Provider: Oct 16, 2020 (late note) Time Seen by a Provider: 08:00 Subjective/Events-last exam Pt is still requiring high flow Vapotherm. Sepsis Event Evaluation Height, Weight, BMI Height: 5'6.00" Weight: 297lbs. 0.0oz. 134.589924zn; 55.57 BMI Method:Stated Exam Exam Vital Signs Date Time Temp Pulse Resp B/P (MAP) Pulse Ox O2 Delivery O2 Flow Rate FiO2 10/17/20 15:09 36.2 66 20 109/61 95 Vapotherm 30.00 60.00 10/17/20 14:35 96 Vapotherm 30.00 60 10/17/20 13:00 58 10/17/20 12:00 36.4 64 18 140/67 94 Vapotherm 10/17/20 09:31 97 Vapotherm 30.00 70 10/17/20 08:03 36.3 62 119/80 94 10/17/20 08:00 94 Vapotherm 35.00 60 10/17/20 07:00 56 10/17/20 04:00 36.4 56 24 119/80 95 NIV Bilevel 35.00 10/17/20 03:42 24 97 45.00 10/17/20 01:00 56 10/17/20 00:00 36.9 66 20 105/68 96 NIV CPAP 45.00 10/16/20 22:15 24 92 45.00 10/16/20 20:52 95 Vapotherm 30.00 70 10/16/20 20:00 94 Vapotherm 35.00 60 10/16/20 19:16 36.4 75 18 122/69 93 Vapotherm 30.00 70.00 10/16/20 19:00 70 I & O 10/17/20 07:00 Intake Total 1520 ml Output Total 1426 ml Balance 94 ml Height & Weight Height: 5'6.00" Weight: 297lbs. 0.0oz. 134.682160qp; 55.57 BMI Method:Stated General Appearance: Obese HEENT: PERRL/EOMI, Normal ENT Inspection, Pharynx Normal, Moist Mucous Membranes Neck: Limited Range of Motion Respiratory: Lungs Clear, Normal Breath Sounds, No Respiratory Distress Cardiovascular: Regular Rate, Rhythm, No Murmur Capillary Refill: Less Than 3 Seconds Extremity: Pedal Edema Neurologic/Psychiatric: Alert, Oriented x3, No Motor/Sensory Deficits, Normal Mood/Affect Skin: Pallor Lymphatic: No Adenopathy Results Lab Laboratory Tests 10/16/20 03:30 10/17/20 02:50 Assessment/Plan Assessment/Plan Acute respiratory failure secondary to COVID PNA -Currently on Vapotherm 55% -Dx 10/01 and admitted on 10/06 AsthmaAE -Solumedrol -- decrease to 40mg Q12 -Duoneb RALPH with CPAP therapy Morbid obesity Hx of Myasthenia Gravis JENNY TORRES DO Oct 17, 2020 18:20
--- NOTE | 2020-10-17 18:21 | Pulmonary Progress Note ---
Subjective Time Seen by a Provider: 12:00 Subjective/Events-last exam Pt is still requiring high flow Vapotherm. Sepsis Event Evaluation Height, Weight, BMI Height: 5'6.00" Weight: 297lbs. 0.0oz. 134.867471pr; 55.57 BMI Method:Stated Exam Exam Vital Signs Date Time Temp Pulse Resp B/P (MAP) Pulse Ox O2 Delivery O2 Flow Rate FiO2 10/17/20 15:09 36.2 66 20 109/61 95 Vapotherm 30.00 60.00 10/17/20 14:35 96 Vapotherm 30.00 60 10/17/20 13:00 58 10/17/20 12:00 36.4 64 18 140/67 94 Vapotherm 10/17/20 09:31 97 Vapotherm 30.00 70 10/17/20 08:03 36.3 62 119/80 94 10/17/20 08:00 94 Vapotherm 35.00 60 10/17/20 07:00 56 10/17/20 04:00 36.4 56 24 119/80 95 NIV Bilevel 35.00 10/17/20 03:42 24 97 45.00 10/17/20 01:00 56 10/17/20 00:00 36.9 66 20 105/68 96 NIV CPAP 45.00 10/16/20 22:15 24 92 45.00 10/16/20 20:52 95 Vapotherm 30.00 70 10/16/20 20:00 94 Vapotherm 35.00 60 10/16/20 19:16 36.4 75 18 122/69 93 Vapotherm 30.00 70.00 10/16/20 19:00 70 I & O 10/17/20 07:00 Intake Total 1520 ml Output Total 1426 ml Balance 94 ml Height & Weight Height: 5'6.00" Weight: 297lbs. 0.0oz. 134.284335df; 55.57 BMI Method:Stated General Appearance: Obese HEENT: PERRL/EOMI, Normal ENT Inspection, Pharynx Normal, Moist Mucous Membranes Neck: Limited Range of Motion Respiratory: Lungs Clear, Normal Breath Sounds, No Respiratory Distress Cardiovascular: Regular Rate, Rhythm, No Murmur Capillary Refill: Less Than 3 Seconds Extremity: Pedal Edema Neurologic/Psychiatric: Alert, Oriented x3, No Motor/Sensory Deficits, Normal Mood/Affect Skin: Pallor Lymphatic: No Adenopathy Results Lab Laboratory Tests 10/16/20 03:30 10/17/20 02:50 Assessment/Plan Assessment/Plan Acute respiratory failure secondary to COVID PNA -Currently on Vapotherm 55% -Dx 10/01 and admitted on 10/06 AsthmaAE -Solumedrol 40mg Q12 -Duoneb RALPH with CPAP therapy Morbid obesity Hx of Myasthenia Gravis JENNY TORRES DO Oct 17, 2020 18:21
[2020-10-18] MEDS: RT-ALBUTEROL INHALER HFA (VENTOLIN HFA) 18 GM IH SCH ×4 (03:24→21:30)
[2020-10-18 04:07] LABS: CALCIUM 8.2 MG/DL (8.5-10.1); CREATININE SERUM 0.96 MG/DL (0.60-1.30); POTASSIUM 5.6 MMOL/L (3.6-5.0)
[2020-10-18 04:30] LABS: MAGNESIUM 2.4 MG/DL (1.6-2.4)
[2020-10-18] MEDS: KCL 20 MEQ TAB (K-DUR) PO SCH ×2 (04:56→07:59)
[2020-10-18] MEDS: POTASSIUM CL 10MEQ/50ML IVPB 50 ML IV SCH (04:56)
[2020-10-18] MEDS: MAGNESIUM 1 GM/100 ML IVPB 100 ML IV SCH (04:56)
[2020-10-18] MEDS: inSUlin ASPART (NovoLOG) 1 UNIT/0.01 ML (CHARGE PER UNIT) SQ SCH ×4 (05:51→20:45)
[2020-10-18] MEDS ORDERED: TRIAMTERENE/HCTZ 75-50 (MAXZIDE,DYAZIDE) TABLET PO ONE (07:49)
[2020-10-18] MEDS: MONTELUKAST 10 MG (SINGULAIR) TAB PO SCH (07:58)
[2020-10-18] MEDS: PANTOPRAZOLE 40 MG (PROTONIX) TAB PO SCH (07:59)
[2020-10-18] MEDS: TRIAMTERENE/HCTZ 75-50 (MAXZIDE,DYAZIDE) TABLET PO SCH (07:59)
[2020-10-18] MEDS: LOSARTAN 50 MG (COZAAR) TAB PO SCH (07:59)
[2020-10-18] MEDS: methylPREDNISolone 40 MG/ML (Solu-MEDROL) VIAL IVP SCH ×2 (07:59→20:42)
[2020-10-18] MEDS: CALCIUM CARB + VIT D 600 MG (CALCARB + D) TAB PO SCH ×2 (07:59→17:12)
[2020-10-18] MEDS: cloNIDine 0.1 MG (CATAPRES) TAB PO SCH ×3 (07:59→20:42)
[2020-10-18] MEDS: LORATADINE (CLARITIN) 10 MG TAB PO SCH (08:00)
[2020-10-18] MEDS: LEVOTHYROXINE 50 MCG (LEVOTHROID) TAB PO SCH (08:00)
[2020-10-18] MEDS: KCL 10 MEQ TAB (MICRO K) PO SCH (08:10)
[2020-10-18] MEDS: APIXABAN 5 MG (ELIQUIS) TABLET PO SCH ×2 (08:10→20:42)
--- NOTE | 2020-10-18 09:50 | Progress Note - Hospitalist ---
Subjective HPI/CC On Admission Date Seen by Provider: Oct 18, 2020 Time Seen by Provider: 09:15 CC: SOB due to Covid-19 HPI: This is a 60[facility] Pt of mine with a new diagnosis of Myasthenia Gravis 2.5 months ago, sent up to and received plasmaphoresis five rounds, who presents after the rest of her family was tested for Covid and she became more and more symptomatic with hypoxia. She has been placed on Remdesivir protocol with Decadron and Convalescent plasma and will receive close monitoring due to high risk for complete respiratory failure and ventilator dependence due to morbid obesity, RALPH, Myasthenia Gravis with respiratory issues along with her chronic asthma. Subjective/Events-last exam She is says that she really feels quite a bit better. Her blood sugars have been out of control secondary to the prednisone. She coughed up a large amount of sputum and has been feeling much better. Indeed she is lower on her Vapotherm than she had been. The subjective being transferred to [place] was broached yesterday with she and her but they would like to have further discussion with their attending physician on Tuesday before doing that. She remains cheerful and optimistic without complaint. Review of Systems Pulmonary: Cough Neurological: Weakness Objective Exam Vital Signs Vital Signs Date Time Temp Pulse Resp B/P (MAP) Pulse Ox O2 Delivery O2 Flow Rate FiO2 10/18/20 07:54 90 Vapotherm 25.00 45 10/18/20 07:42 36.4 73 24 158/97 Capillary Refill : Less Than 3 Seconds General Appearance: No Apparent Distress, Obese HEENT: Normal ENT Inspection Neck: Normal Inspection, Non Tender, Supple Respiratory: Wheezing (Expiratory) Cardiovascular: Regular Rate, Rhythm, No Gallop, No Murmur Gastrointestinal: Non Tender, Soft Rectal: Deferred Back: Normal Inspection Extremity: Pedal Edema Neurologic/Psychiatric: Alert, Oriented x3, No Motor/Sensory Deficits, Normal Mood/Affect Skin: Pallor Results/Procedures Lab Laboratory Tests 10/18/20 03:30 Patient resulted labs reviewed. Imaging: Reviewed Imaging Report Assessment/Plan Assessment and Plan Assess & Plan/Chief Complaint COVID19 pneumonia- currently on Vapotherm at 85 FiO2, On solumedrol, tapering down per Dr. Frey. Persistently requiring significant respiratory support, considering nursing home acute care hospital. PE-has had 7 days of therapeutic Lovenox will change to Eliquis especially hoping that the hematuria will improve Myasthenia gravis- appears stable Asthma- fluticasone/salmeterol, umeclidinium Morbid obesity-difficulty ambulating Hematuria most likely secondary to blood thinners Type 2 diabetes with labile control-we will add Levemir Hyperkalemia-we will hold oral potassium, continue ARB at this point Clinical Quality Measures DVT/VTE Risk/Contraindication: Risk Factor Score Per Nursin RFS Level Per Nursing on Admit: 4+=Very High MARY TAPIA MD Oct 18, 2020 09:50
[2020-10-18] MEDS: ADVAIR HFA 115/21 MCG INHALER 8 GM IH SCH (10:29)
[2020-10-18] MEDS: UMECLIDINIUM BROMIDE (INCRUSE ELLIPTA) 7'S IH SCH (10:29)
[2020-10-18] MEDS: NYSTATIN CREAM (MYCOSTATIN) 30 GM TUBE TP SCH ×2 (10:39→22:00)
[2020-10-18] MEDS: MICONAZOLE 2% POWDER (DESENEX AF) 90 GM TOP SCH (10:40)
[2020-10-19] MEDS: RT-ALBUTEROL INHALER HFA (VENTOLIN HFA) 18 GM IH SCH ×4 (04:10→20:03)
[2020-10-19 04:42] LABS: HEMOGLOBIN 11.5 g/dL (11.5-16.0); MEAN PLATELET VOLUME 11.1 fL (9.0-12.2); WHITE BLOOD COUNT 13.9 10^3/uL (4.3-11.0)
[2020-10-19 04:52] LABS: CHLORIDE 97 MMOL/L (98-107); POTASSIUM 4.5 MMOL/L (3.6-5.0); SODIUM 133 MMOL/L (135-145)
[2020-10-19 04:53] LABS: CALCIUM 8.3 MG/DL (8.5-10.1)
[2020-10-19 04:54] LABS: GLUCOSE 228 MG/DL (70-105)
[2020-10-19 04:55] LABS: TOTAL PROTEIN 5.1 GM/DL (6.4-8.2)
[2020-10-19 04:56] LABS: CARBON DIOXIDE 25 MMOL/L (21-32)
[2020-10-19 04:57] LABS: BILIRUBIN,TOTAL 0.7 MG/DL (0.1-1.0)
[2020-10-19 04:58] LABS: ALKALINE PHOSPHATASE 56 U/L (40-136); CREATININE SERUM 0.89 MG/DL (0.60-1.30); GFR ESTIMATED > 60
[2020-10-19 04:59] LABS: BUN/CREATININE RATIO 39
[2020-10-19 05:01] LABS: ALANINE AMINOTRANSFERASE 23 U/L (0-55); MAGNESIUM 2.2 MG/DL (1.6-2.4)
[2020-10-19] MEDS: POTASSIUM CL 10MEQ/50ML IVPB 50 ML IV SCH (05:41)
[2020-10-19] MEDS: MAGNESIUM 1 GM/100 ML IVPB 100 ML IV SCH (05:42)
[2020-10-19] MEDS: inSUlin ASPART (NovoLOG) 1 UNIT/0.01 ML (CHARGE PER UNIT) SQ SCH ×4 (05:54→21:50)
--- NOTE | 2020-10-19 07:58 | Progress Note - Hospitalist ---
Subjective HPI/CC On Admission Date Seen by Provider: Oct 19, 2020 Time Seen by Provider: 07:30 CC: SOB due to Covid-19 HPI: This is a 60yoWF clinic Pt of [facility] with a new diagnosis of Myasthenia Gravis 2.5 months ago, sent up to and received plasmaphoresis five rounds, who presents after the rest of her family was tested for Covid and she became more and more symptomatic with hypoxia. She has been placed on Remdesivir protocol with Decadron and Convalescent plasma and will receive close monitoring due to high risk for complete respiratory failure and ventilator dependence due to morbid obesity, RALPH, Myasthenia Gravis with respiratory issues along with her chronic asthma. Subjective/Events-last exam Patient seems a little bit more depressed today but is just waking up. Blood sugars remain elevated. We will decrease the Solu-Medrol to 20 mg twice daily. Consider changing to p.o. She remains stable on Vapotherm 50%. Wishes to talk to Dr. Jimenez about going to [place] before she thinks anything more about it. Bowels are moving and her appetite is good. Review of Systems Neurological: Weakness Objective Exam Vital Signs Vital Signs Date Time Temp Pulse Resp B/P (MAP) Pulse Ox O2 Delivery O2 Flow Rate FiO2 10/19/20 07:35 35.9 65 19 124/60 95 Vapotherm 35.00 50.00 10/18/20 21:30 50 Capillary Refill : Less Than 3 Seconds General Appearance: Obese Neck: Limited Range of Motion Respiratory: Chest Non Tender, Lungs Clear, Normal Breath Sounds, No Accessory Muscle Use, No Respiratory Distress Cardiovascular: Regular Rate, Rhythm, No Gallop, No JVD, No Murmur Gastrointestinal: Normal Bowel Sounds, Non Tender, Soft Extremity: Pedal Edema, Other (Diffuse edema) Neurologic/Psychiatric: Alert, Oriented x3, No Motor/Sensory Deficits, Normal Mood/Affect Skin: Normal Color, Warm/Dry Results/Procedures Lab Laboratory Tests 10/19/20 04:10 Patient resulted labs reviewed. Imaging: Reviewed Imaging Report Assessment/Plan Assessment and Plan Assess & Plan/Chief Complaint COVID19 pneumonia- currently on Vapotherm at 50 FiO2, On solumedrol, will decrease the dose today. Persistently requiring significant respiratory support, considering [facility]-way acute care hospital but wishes to talk with Dr. Jimenez before she acquiesces PE-has had 7 days of therapeutic Lovenox will change to Eliquis -hematuria has improved Myasthenia gravis- appears stable Asthma- fluticasone/salmeterol, umeclidinium Morbid obesity-difficulty ambulating Hematuria -improving Type 2 diabetes with labile control-we will add Levemir-should improve after decreasing the Solu-Medrol Hyperkalemia-resolved holding oral potassium Prognosis remains guarded Clinical Quality Measures DVT/VTE Risk/Contraindication: Risk Factor Score Per Nursin RFS Level Per Nursing on Admit: 4+=Very High MARY TAPIA MD Oct 19, 2020 07:58
[2020-10-19] MEDS: methylPREDNISolone 40 MG/ML (Solu-MEDROL) VIAL IVP SCH ×2 (08:51→21:50)
[2020-10-19] MEDS: MONTELUKAST 10 MG (SINGULAIR) TAB PO SCH (08:51)
[2020-10-19] MEDS: CALCIUM CARB + VIT D 600 MG (CALCARB + D) TAB PO SCH ×2 (08:52→16:17)
[2020-10-19] MEDS: TRIAMTERENE/HCTZ 75-50 (MAXZIDE,DYAZIDE) TABLET PO SCH (08:52)
[2020-10-19] MEDS: PANTOPRAZOLE 40 MG (PROTONIX) TAB PO SCH (08:52)
[2020-10-19] MEDS: APIXABAN 5 MG (ELIQUIS) TABLET PO SCH ×2 (08:52→21:50)
[2020-10-19] MEDS: cloNIDine 0.1 MG (CATAPRES) TAB PO SCH ×3 (08:52→21:48)
[2020-10-19] MEDS: MICONAZOLE 2% POWDER (DESENEX AF) 90 GM TOP SCH ×2 (08:53→21:52)
[2020-10-19] MEDS: LORATADINE (CLARITIN) 10 MG TAB PO SCH (08:53)
[2020-10-19] MEDS: LEVOTHYROXINE 50 MCG (LEVOTHROID) TAB PO SCH (08:54)
[2020-10-19] MEDS: NYSTATIN CREAM (MYCOSTATIN) 30 GM TUBE TP SCH ×3 (08:54→21:51)
[2020-10-19] MEDS: UMECLIDINIUM BROMIDE (INCRUSE ELLIPTA) 7'S IH SCH (11:28)
[2020-10-19] MEDS: ADVAIR HFA 115/21 MCG INHALER 8 GM IH SCH (11:29)
[2020-10-19] MEDS: LOSARTAN 50 MG (COZAAR) TAB PO SCH (12:15)
[2020-10-20 05:30] LABS: POTASSIUM 4.1 MMOL/L (3.6-5.0)
[2020-10-20 05:31] LABS: CALCIUM 8.2 MG/DL (8.5-10.1)
[2020-10-20 05:35] LABS: CREATININE SERUM 0.96 MG/DL (0.60-1.30)
[2020-10-20 05:38] LABS: MAGNESIUM 2.2 MG/DL (1.6-2.4)
[2020-10-20] MEDS: MAGNESIUM 1 GM/100 ML IVPB 100 ML IV SCH (05:42)
[2020-10-20] MEDS: POTASSIUM CL 10MEQ/50ML IVPB 50 ML IV SCH (05:42)
--- NOTE | 2020-10-20 06:04 | Pulmonary Progress Note ---
Subjective Time Seen by a Provider: 05:59 Subjective/Events-last exam Pt is doing better. Sepsis Event Evaluation Height, Weight, BMI Height: 5'6.00" Weight: 297lbs. 0.0oz. 134.580472hs; 55.57 BMI Method:Stated Exam Exam Vital Signs Date Time Temp Pulse Resp B/P (MAP) Pulse Ox O2 Delivery O2 Flow Rate FiO2 10/20/20 03:58 36.0 77 16 118/71 96 Vapotherm 20.00 30.00 10/20/20 01:52 92 Vapotherm 25.00 30 10/20/20 01:00 68 10/20/20 00:01 Vapotherm 10/19/20 23:57 36.2 69 16 113/71 95 Vapotherm 20.00 30.00 10/19/20 22:10 97 Vapotherm 35.00 50 10/19/20 20:15 92 Vapotherm 25.00 30 10/19/20 19:27 36.2 89 17 103/56 91 Vapotherm 20.00 30.00 10/19/20 19:00 76 10/19/20 15:34 36.8 92 18 85/53 96 Vapotherm 35.00 50.00 10/19/20 12:17 78 10/19/20 12:07 36.4 78 20 88/53 95 Vapotherm 35.00 50.00 10/19/20 08:00 91 Vapotherm 25.00 40 10/19/20 07:35 35.9 65 19 124/60 95 Vapotherm 35.00 50.00 10/19/20 07:00 67 I & O 10/20/20 06:59 Intake Total 2060 ml Output Total 830 ml Balance 1230 ml Height & Weight Height: 5'6.00" Weight: 297lbs. 0.0oz. 134.132969sa; 55.57 BMI Method:Stated General Appearance: No Apparent Distress, WD/WN, Obese HEENT: Normal ENT Inspection Neck: Limited Range of Motion Respiratory: Chest Non Tender, Lungs Clear, Normal Breath Sounds, No Accessory Muscle Use, No Respiratory Distress Cardiovascular: Regular Rate, Rhythm, No Gallop, No JVD, No Murmur Capillary Refill: Less Than 3 Seconds Extremity: Pedal Edema, Other (Diffuse edema) Neurologic/Psychiatric: Alert, Oriented x3, No Motor/Sensory Deficits, Normal Mood/Affect Skin: Normal Color, Warm/Dry Lymphatic: No Adenopathy Results Lab Laboratory Tests 10/19/20 04:10 10/20/20 04:20 Assessment/Plan Assessment/Plan Acute respiratory failure secondary to COVID PNA -Currently on Vapotherm 30% -Change to regular NC -Dx 10/01 and admitted on 10/06 AsthmaAE -Solumedrol 20mg Q12-- Change to daily -Duoneb RALPH with CPAP therapy Morbid obesity Hx of Myasthenia Gravis JENNY TORRES DO Oct 20, 2020 06:04
[2020-10-20] MEDS: inSUlin ASPART (NovoLOG) 1 UNIT/0.01 ML (CHARGE PER UNIT) SQ SCH ×3 (06:41→15:37)
[2020-10-20] MEDS: RT-ALBUTEROL INHALER HFA (VENTOLIN HFA) 18 GM IH SCH ×3 (07:10→21:24)
[2020-10-20] MEDS: ADVAIR HFA 115/21 MCG INHALER 8 GM IH SCH (07:11)
[2020-10-20] MEDS: UMECLIDINIUM BROMIDE (INCRUSE ELLIPTA) 7'S IH SCH (07:11)
[2020-10-20] MEDS: LEVOTHYROXINE 50 MCG (LEVOTHROID) TAB PO SCH (08:22)
[2020-10-20] MEDS: APIXABAN 5 MG (ELIQUIS) TABLET PO SCH ×2 (08:22→20:56)
[2020-10-20] MEDS: cloNIDine 0.1 MG (CATAPRES) TAB PO SCH ×2 (08:22→12:00)
[2020-10-20] MEDS: MONTELUKAST 10 MG (SINGULAIR) TAB PO SCH (08:22)
[2020-10-20] MEDS: LORATADINE (CLARITIN) 10 MG TAB PO SCH (08:22)
[2020-10-20] MEDS: PANTOPRAZOLE 40 MG (PROTONIX) TAB PO SCH (08:22)
[2020-10-20] MEDS: LOSARTAN 50 MG (COZAAR) TAB PO SCH (08:22)
[2020-10-20] MEDS: CALCIUM CARB + VIT D 600 MG (CALCARB + D) TAB PO SCH ×2 (08:23→17:33)
[2020-10-20] MEDS: methylPREDNISolone 40 MG/ML (Solu-MEDROL) VIAL IVP SCH (08:25)
[2020-10-20] MEDS: TRIAMTERENE/HCTZ 75-50 (MAXZIDE,DYAZIDE) TABLET PO SCH (08:57)
[2020-10-20] MEDS: NYSTATIN CREAM (MYCOSTATIN) 30 GM TUBE TP SCH ×3 (08:58→21:41)
[2020-10-20] MEDS: MICONAZOLE 2% POWDER (DESENEX AF) 90 GM TOP SCH ×2 (08:59→21:40)
--- NOTE | 2020-10-20 09:00 | NUR ---
VAPOTHERM DC'D AND CHANGED OVER TO 6L PER [place] SATS HOLDING 90-92% AT THIS TIME. ASSISTED BACK TO BED. TOLERATING ACTIVITY FAIR, BUT TIRES EASILY. STATES BREAKDOWN ON BOTTOM FEELING BETTER.
--- NOTE | 2020-10-20 09:30 | NUR ---
DR. TAVERAS HERE TO SEE PATIENT.
--- NOTE | 2020-10-20 12:20 | Progress Note ---
Subjective Subjective/Events-last exam Afebrile, feeling somewhat better. Doesn't want to go to [facility] because she feels she is improving a lot. Objective Exam Last Set of Vital Signs Vital Signs Date Time Temp Pulse Resp B/P (MAP) Pulse Ox O2 Delivery O2 Flow Rate FiO2 10/20/20 11:08 36.6 18 103/58 94 Nasal Cannula 6.00 10/20/20 08:18 87 10/20/20 07:11 30 Capillary Refill : Less Than 3 Seconds I&O Intake and Output 10/20/20 00:00 Intake Total 2060 ml Output Total 830 ml Balance 1230 ml Intake Oral 2060 ml Output Urine Total 830 ml # Voids 6 # Bowel Movements 3 General: Alert, No Acute Distress Lungs: Other (decreased air movement throughout, breathing easily) Heart: Regular Rate Neuro: Normal Speech Psych/Mental Status: Mood NL Results/Procedures Lab Laboratory Tests 10/19/20 15:34: Glucometer 214H 10/19/20 20:55: Glucometer 219H 10/20/20 04:20: Sodium Level 133L, Potassium Level 4.1, Chloride Level 96L, Carbon Dioxide Level 25, Anion Gap 12, Blood Urea Nitrogen 33H, Creatinine 0.96, Estimat Glomerular Filtration Rate 59, BUN/Creatinine Ratio 34, Glucose Level 225H, Calcium Level 8.2L, Phosphorus Level 4.1, Magnesium Level 2.2 10/20/20 11:07: Glucometer 266H Microbiology 10/05/20 Blood Culture - Final, Complete No growth Assessment/Plan Assessment/Plan Assessment & Plan COVID19 pneumonia- just transitioned from vapotherm to NC, monitor. On solumedrol, tapering down per Dr. Frey. PE- on Eliquis Myasthenia gravis- appears stable Asthma- fluticasone/salmeterol, umeclidinium Morbid obesity Clinical Quality Measures DVT/VTE Risk/Contraindication: Risk Factor Score Per Nursin RFS Level Per Nursing on Admit: 4+=Very High SHELTON TAVERAS MD Oct 20, 2020 12:20
--- NOTE | 2020-10-20 12:30 | NUR ---
TOLERATING BEING ON 6L WELL WITH SATS 92%, BUT DESATS TO 85% WITH EXERTION. RECOVERS WELL. DR. TORRES NOTIFIED AND ORDER RECEIVED TO TRANSFER TO [facility] SUR[facility] WITH TELEMETRY. TO KEEP VAPOTHERM PRN AND TITRATE FIO2 TO KEEP SATS 90-94%.
--- NOTE | 2020-10-20 13:26 | Physical Therapy Evaluation ---
PT Evaluation-General Medical Diagnosis Admission Date Oct 06, 2020 at 00:11 Medical Diagnosis: Covid (+)/hypoxia/Myesthenia Gravis Onset Date: Oct 06, 2020 Therapy Diagnosis Therapy Diagnosis: debility/weakness Height/Weight Height (Feet): 5 Height (Inches): 6.00 Weight (Pounds): 297 Weight (Ounces): 0.0 Precautions Precautions/Isolations: Airborne Isolation Referral Physician: Shante Reason for Referral: Evaluation/Treatment Medical History Pertinent Medical History: DM, HTN, Hypothroidism, Neuropathy Additional Medical History Myesthenia Gravis/Morbid obesity Current History ER secondary to weakness from Covid (10/01/20) Reviewed History: Yes Social History Home: Single Level Current Living Status: Spouse Prior Prior Level of Function SCALE: Activities may be completed with or without assistive devices. 0-Zhdiaudtgm-hmdbmrh completes the activity by him/herself with no assistance from a helper. 5-Set-up or Clean-up Assistance-helper sets up or cleans up; patient completes activity. Jonancy assists only prior to or following the activity. 4-Supervision or Touching Assistance-helper provides verbal cues and/or touching/steadying and/or contact guard assistance as patient completes activity. Assistance may be provided throughout the activity or intermittently. 3-Partial/Moderate Assistance-helper does LESS THAN HALF the effort. Jonancy lifts, holds or supports trunk or limbs, but provides less than half the effort. 2-Substantial/Maximal Assistance-helper does MORE THAN HALF the effort. Jonancy lifts or holds trunk or limbs and provides more than half the effort. 4-Tlyjiyflr-xtswlt does ALL the effort. Patient does none of the effort to complete the activity. Or, the assistance of 2 or more helpers is required for the patient to complete the activity. If activity was not attempted, code reason: 7-Patient Refused. 9-Not Applicable-not attempted and the patient did not perform the activity before the current illness, exacerbation or injury. 10-Not Attempted due to Environmental Limitations-(lack of equipment, weather restraints, etc.). 88-Not Attempted due to Medical Conditions or Safety Concerns. Bed Mobility: 6 Transfers (B,C,W/C): 6 Gait: 6 Stairs: 6 Indoor Mobility (Ambulation): Independent Stairs: Independent Prior Devices Use: None PT Evaluation-Current Subjective Patient reports she is feeling better and agrees to PT. Objective Patient Orientation: Normal For Age Attachments: Oxygen (NC) ROM/Strength ROM Lower Extremities bilateral LE WFL Strength Lower Extremities 4/5 grossly bilateral LE Integumentary/Posture Integumentary refer to nursing notes Bowel Incontinence: No Bladder Incontinence: Hagen Cath Posture WFL Neuromuscular (Tone, Coordination, Reflexes) grossly intact Sensory Vision: Functional Hearing: Functional Transfers Sit to Lying (QC): 5 Lying to Sitting/Side of Bed(Q: 5 Sit to Stand (QC): 5 Chair/Zcc-zm-Vlgrg Xfer(QC): 5 Gait Does the Patient Walk?: Yes Mode of Locomotion: Walk Anticipated Mode of Locomotion: Walk Walk 10 feet (QC): 5 Walk 50 ft with 2 Turns(QC): 88 Walk 150 ft (QC): 88 Distance: 10' Gait Assistive Device: FWW Comments/Gait Description functional gait sequence Balance Sitting Static: Normal Sitting Dynamic: Normal Standing Static: Normal Standing Dynamic: Normal Assessment/Needs decreased SAO2 with minimal activity, however, strength and mobility are intact. PT to address pulmonary function with functional mobility as tolerated by patient. Rehab Potential: Fair PT Senior Living Goals [employer]orer Goals PT [employer] Goals Time Frame: Nov 08, 2020 Roll Left & Right (QC): 6 Sit to Lying (QC): 6 Lying-Sitting on Side/Bed(QC): 6 Sit to Stand (QC): 6 Chair/Osf-do-Oxbth Xfer(QC): 6 Toilet Transfer (QC): 6 Does the Patient Walk: Yes Walk 10 feet (QC): 6 Walk 50ft with 2 Turns (QC): 6 Walk 150 ft (QC): 6 PT Plan Problem List Problem List: Activity Tolerance Treatment/Plan Treatment Plan: Continue Plan of Care Treatment Plan: Education, Functional Activity Lenin, Functional Strength, Gait, Safety, Therapeutic Exercise Treatment Duration: Nov 08, 2020 Frequency: 6 times per week Estimated Hrs Per Day: .25 hour per day Patient and/or Family Agrees t: Yes Discharge Recommendations Therapy Discharge Recommendati: Home & Family Time/GCodes Time In: 1125 Time Out: 1142 Total Billed Treatment Time: 17 Total Billed Treatment 1 visit EVModC 17 min TRICIA TRAN PT Oct 20, 2020 13:26
--- NOTE | 2020-10-20 14:59 | Occupational Therapy Eval ---
OT Evaluation-General/PLF Medical Diagnosis Admission Date Oct 06, 2020 at 00:11 Medical Diagnosis: Covid (+)/hypoxia/Myesthenia Gravis Onset Date: Oct 06, 2020 Therapy Diagnosis Therapy Diagnosis: Weakness Height/Weight Height (Feet): 5 Height (Inches): 6.00 Weight (Pounds): 297 Weight (Ounces): 0.0 Precautions Precautions/Isolations: Airborne Isolation Weight Bear Status Weight Bearing Restriction: Weight Bearing/Tolerated Referral Physician: Shante Referral Reason: Activity Tolerance, Self Care, Evaluation/Treatment, Strengthening/ROM Medical History Pertinent Medical History: DM, HTN, Hypothroidism, Neuropathy Additional Medical History Myasthenia Gravis, PE, DM, Asthma Current History Pt. was on rehab in July due to Myasthenia Gravis. She is now back with SOA secondary to COVID. Reviewed History: Yes Social History Home: Single Level Current Living Status: Spouse Entry Into Home: Level Entry ADL-Prior Level of Function SCALE: Activities may be completed with or without assistive devices. 1-Zkubjmyvea-ocdrbze completes the activity by him/herself with no assistance from a helper. 5-Set-up or Clean-up Assistance-helper sets up or cleans up; patient completes activity. [place] assists only prior to or following the activity. 4-Supervision or Touching Assistance-helper provides verbal cues and/or touching/steadying and/or contact guard assistance as patient completes activity. Assistance may be provided throughout the activity or intermittently. 3-Partial/Moderate Assistance-helper does LESS THAN HALF the effort. [place] lifts, holds or supports trunk or limbs, but provides less than half the effort. 2-Substantial/Maximal Assistance-helper does MORE THAN HALF the effort. [place] lifts or holds trunk or limbs and provides more than half the effort. 4-Spzhaqrrm-mgbfur does ALL the effort. Patient does none of the effort to complete the activity. Or, the assistance of 2 or more helpers is required for the patient to complete the activity. If activity was not attempted, code reason: 7-Patient Refused. 9-Not Applicable-not attempted and the patient did not perform the activity before the current illness, exacerbation or injury. 10-Not Attempted due to Environmental Limitations-(lack of equipment, weather restraints, etc.). 88-Not Attempted due to Medical Conditions or Safety Concerns. ADL PLOF Comments Pt. reports that she was independent after returning home from last hospital stay. 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 She lives with her spouse and son. Self Care: Independent Functional Cognition: Independent OT Current Status Subjective No pain reported. Pt. states, "I just feel weak." Mental Status/Objective Patient Orientation: Person, Place, Time, Situation Attachments: Oxygen (Pt. has been moved to 6L 02 through nasal cannula from Vapotherm. Sats staying around 91-92%.) Current Glasses/Contacts: Yes Hand Dominance: Right Upper Extremity ROM WFL Upper Extremity Strength 3+/5 bilateral UE. ADL-Treatment Eating (QC): 6 (Pt. demonstrates ability to open spoon package and pudding pack, and feed self with no difficulty.) Oral Hygiene (QC): 7 (Pt. states that brushing her teeth would feel good, but declines doing so at this time.) Pt. up in chair. States that she had stood earlier with PT, and then just stood with nursing and wound care. Spoke with Nursing. They indicate pt. does well with transfers, and PT notes suggest pt. at SBA/set up level for stance. Pt. declines standing at this time with OT as she has just got back into reclining chair and is comfortable. She has already cleansed self with nursing assist. She states that she feels better, but is still having fatigue issues. She declines further activity but is able to talk with OT regarding goals and need to get back home. Pt. is known to this therapist from previous hospitalization. Pt. motivated to return home with spouse and family. All needs were met in room. Education OT Patient Education: Correct positioning, Exercise program, Progress toward Goal/Update tx plan, Purpose of tx/functional activities, Reviewed precautions, Rehab process Teaching Recipient: Patient Teaching Methods: Discussion Response to Teaching: Verbalize Understanding OT Compressor Station Operator Goals Snf Goals Time Frame: Nov 03, 2020 Eating (QC): 6 Oral Hygiene (QC): 6 Toileting Hygiene (QC): 6 Shower/Bathe Self (QC): 4 Upper Body Dressing (QC): 5 Lower Body Dressing (QC): 4 On/Off Footwear (QC): 4 Additional Goals: 1-Demonstrate ADL Tasks, 2-Verbalize Understanding, 3- ImproveStrength/Lenin 1=Demonstrate adherence to instructed precautions during ADL tasks. 2=Patient will verbalize/demonstrate understanding of assistive devices/modifications for ADL. 3=Patient will improve strength/tolerance for activity to enable patient to perform ADL's. OT Education/Plan Problem List/Assessment Assessment: Decreased Activ Tolerance, Impaired I ADL's, Impaired Self-Care Skills Discharge Recommendations Plan/Recommendations: Continue POC Therapy Discharge Recommendati: Home & Family, Post Acute OT Treatment Plan/Plan of Care Treatment,Training & Education: Yes Patient would benefit from OT for education, treatment and training to promote independence in ADL's, mobility, safety and/or upper extremity function for ADL's. Plan of Care: ADL Retraining, Functional Mobility, UE Funct Exercise/Act Treatment Duration: Nov 03, 2020 Frequency: 5 times per week Estimated Hrs Per Day: .25 hour per day Agreement: Yes Rehab Potential: Fair Time/GCodes Start Time: 13:40 Stop Time: 13:50 Total Time Billed (hr/min): 10 Billed Treatment Time 1, LM CHOW OT Oct 20, 2020 14:59
--- NOTE | 2020-10-20 15:16 | NUR ---
CM/SS follow up. Per chart review, the patient does not want to go to [place] because she feels that she is improving. The patient is currently receiving 6L NC and is scoring 5's (set up/clean up assistance) with Physical therapy. CM/SS contacted the patient's Corey to give an update and discuss plan. He reports that he is supposed to have a meeting with Dr. Jimenez to discuss discharge plans. CM/SS gave Dr. Jimenez brief update on current o2 and physical therapy notes. She verbalized understanding. CM/SS will continue to follow.
[2020-10-20] MEDS: inSUlin ASPART (NovoLOG) 1 UNIT/0.01 ML (CHARGE PER UNIT) SC SCH ×2 (16:25→20:57)
--- NOTE | 2020-10-20 17:54 | NUR ---
report from ALFREDO Castillo from [facility]. This RN will assume care of this patient when she gets to room 426
--- NOTE | 2020-10-20 18:15 | NUR ---
PATIENT TO FLOOR AT THIS TIME, VIA BARIATRIC BED ACCOMPANIED BY ALFREDO CHIANG AND ALFREDO THOMPSON FROM [facility]. THIS RN WILL ASSUME CARE OF THIS PATIENT AT THIS TIME. VAPOTHERM AND CPAP BELONGING TO [facility] IN ROOM FOR PATIENT USE,
[2020-10-21] MEDS: RT-ALBUTEROL INHALER HFA (VENTOLIN HFA) 18 GM IH SCH ×3 (02:10→21:04)
[2020-10-21 04:49] LABS: BASOPHILS % (AUTO) 0 % (0-10); EOSINOPHILS % (AUTO) 0 % (0-10); HEMATOCRIT 37 % (35-52); LYMPHOCYTES # (AUTO) 2.3 10^3/uL (1.0-4.0); LYMPHOCYTES % (AUTO) 18 % (12-44); MEAN CORPUSCULAR HEMOGLOBIN 29 pg (25-34); MEAN CORPUSCULAR HGB CONC 32 g/dL (32-36); MEAN CORPUSCULAR VOLUME 92 fL (80-99); MEAN PLATELET VOLUME 11.2 fL (9.0-12.2); MONOCYTES % (AUTO) 8 % (0-12); NEUTROPHILS # (AUTO) 8.8 10^3/uL (1.8-7.8); NEUTROPHILS % (AUTO) 70 % (42-75); PLATELET COUNT 262 10^3/uL (130-400); WHITE BLOOD COUNT 12.6 10^3/uL (4.3-11.0)
[2020-10-21 05:10] LABS: CHLORIDE 98 MMOL/L (98-107); POTASSIUM 3.3 MMOL/L (3.6-5.0); SODIUM 137 MMOL/L (135-145)
[2020-10-21 05:12] LABS: CALCIUM 8.5 MG/DL (8.5-10.1); GLUCOSE 120 MG/DL (70-105)
[2020-10-21 05:13] LABS: CARBON DIOXIDE 27 MMOL/L (21-32)
[2020-10-21 05:16] LABS: CREATININE SERUM 0.86 MG/DL (0.60-1.30); GFR ESTIMATED > 60
[2020-10-21 05:17] LABS: BUN/CREATININE RATIO 35
[2020-10-21] MEDS: inSUlin ASPART (NovoLOG) 1 UNIT/0.01 ML (CHARGE PER UNIT) SC SCH ×4 (05:21→21:44)
[2020-10-21] MEDS ORDERED: KCL 20 MEQ TAB (K-DUR) PO ONE (07:00)
[2020-10-21] MEDS: methylPREDNISolone 40 MG/ML (Solu-MEDROL) VIAL IVP SCH (09:08)
[2020-10-21] MEDS: TRIAMTERENE/HCTZ 75-50 (MAXZIDE,DYAZIDE) TABLET PO SCH (09:14)
[2020-10-21] MEDS: LEVOTHYROXINE 50 MCG (LEVOTHROID) TAB PO SCH (09:15)
[2020-10-21] MEDS: MONTELUKAST 10 MG (SINGULAIR) TAB PO SCH (09:15)
[2020-10-21] MEDS: PANTOPRAZOLE 40 MG (PROTONIX) TAB PO SCH (09:16)
[2020-10-21] MEDS: LORATADINE (CLARITIN) 10 MG TAB PO SCH (09:17)
[2020-10-21] MEDS: LOSARTAN 50 MG (COZAAR) TAB PO SCH (09:17)
[2020-10-21] MEDS: CALCIUM CARB + VIT D 600 MG (CALCARB + D) TAB PO SCH ×2 (09:18→17:32)
[2020-10-21] MEDS: APIXABAN 5 MG (ELIQUIS) TABLET PO SCH ×2 (09:18→20:39)
[2020-10-21] MEDS: MICONAZOLE 2% POWDER (DESENEX AF) 90 GM TOP SCH ×2 (09:23→20:41)
[2020-10-21] MEDS: NYSTATIN CREAM (MYCOSTATIN) 30 GM TUBE TP SCH ×3 (09:23→20:41)
--- NOTE | 2020-10-21 11:34 | NUR ---
CM/SS follow up. CM/SS spoke with patient's physician for plan of care. The patient does not currently meet the criteria for [place]. CM/SS contacted [facility] to cancel the referral. The patient may be a candidate for inpatient rehab but they do not have any bed availability at this time. CM/SS will continue to follow.
--- NOTE | 2020-10-21 11:54 | Physical Therapy Daily Note ---
PT Daily Note-Current Subjective Patient agrees to PT. Up in recliner on 5L NC HF Mental Status Patient Orientation: Normal For Age Attachments: Oxygen, Hagen Catheter Transfers SCALE: Activities may be completed with or without assistive devices. 9-Tkodbanraj-vhxcyga completes the activity by him/herself with no assistance from a helper. 5-Set-up or Clean-up Assistance-helper sets up or cleans up; patient completes activity. [place] assists only prior to or following the activity. 4-Supervision or Touching Assistance-helper provides verbal cues and/or touching/steadying and/or contact guard assistance as patient completes activity . Assistance may be provided throughout the activity or intermittently. 3-Partial/Moderate Assistance-helper does LESS THAN HALF the effort. [place] lifts, holds or supports trunk or limbs, but provides less than half the effort. 2-Substantial/Maximal Assistance-helper does MORE THAN HALF the effort. [place] lifts or holds trunk or limbs and provides more than half the effort. 8-Jbziuvylj-hxbncq does ALL the effort. Patient does none of the effort to complete the activity. Or, the assistance of 2 or more helpers is required for the patient to complete the activity. If activity was not attempted, code reason: 7-Patient Refused. 9-Not Applicable-not attempted and the patient did not perform the activity before the current illness, exacerbation or injury. 10-Not Attempted due to Environmental Limitations-(lack of equipment, weather restraints, etc.). 88-Not Attempted due to Medical Conditions or Safety Concerns. Sit to Stand (QC): 4 Gait Training Does the Patient Walk?: Yes Distance: 40' x 3 Walk 10 feet (QC): 4 Gait Assistive Device: FWW slow, steady, [place] gait with increase SOA with minimal activity Exercises Seated Therapy Exercises: Ankle pumps, Long arc quads, Hip flexion Seated Reps: 12 Assessment Patient SAO2 maintained >90% on 5L NC HF with activity. Patient required seated recovery period between ambulation sets. PT Sheriff Officer Goals Sheriff Officer Goals PT Sheriff Officer Goals Time Frame: Nov 08, 2020 Roll Left & Right (QC): 6 Sit to Lying (QC): 6 Lying-Sitting on Side/Bed(QC): 6 Sit to Stand (QC): 6 Chair/Mrj-zg-Lmirw Xfer(QC): 6 Toilet Transfer (QC): 6 Does the Patient Walk: Yes Walk 10 feet (QC): 6 Walk 50ft with 2 Turns (QC): 6 Walk 150 ft (QC): 6 PT Plan Treatment/Plan Treatment Plan: Continue Plan of Care Treatment Plan: Education, Functional Activity Lenin, Functional Strength, Gait, Safety, Therapeutic Exercise Treatment Duration: Nov 08, 2020 Frequency: 6 times per week Estimated Hrs Per Day: .25 hour per day Patient and/or Family Agrees t: Yes Time/GCodes Time In: 1100 Time Out: 1118 Total Billed Treatment Time: 18 Total Billed Treatment 1 visit FA 18 min TRICIA TRAN PT Oct 21, 2020 11:54
--- NOTE | 2020-10-21 14:00 | Occupational Ther Daily Note ---
OT Current Status-Daily Note Subjective No pain reported. Mental Status/Objective Patient Orientation: Person, Place, Time, Situation Attachments: Oxygen ADL-Treatment Therapy Code Descriptions/Definitions Functional [place] Measure: 0=Not Assessed/NA 4=Minimal Assistance 1=Total Assistance 5=Supervision or Setup 2=Maximal Assistance 6=Modified [place] 3=Moderate Assistance 7=Complete IndependenceSCALE: Activities may be completed with or without assistive devices. 2-Xzuitjokol-fzhikxx completes the activity by him/herself with no assistance from a helper. 5-Set-up or Clean-up Assistance-helper sets up or cleans up; patient completes activity. [place] assists only prior to or following the activity. 4-Supervision or Touching Assistance-helper provides verbal cues and/or touching/steadying and/or contact guard assistance as patient completes activity. Assistance may be provided throughout the activity or intermittently. 3-Partial/Moderate Assistance-helper does LESS THAN HALF the effort. [place] lifts, holds or supports trunk or limbs, but provides less than half the effort. 2-Substantial/Maximal Assistance-helper does MORE THAN HALF the effort. [place] lifts or holds trunk or limbs and provides more than half the effort. 3-Ihvsegrux-sgrikw does ALL the effort. Patient does none of the effort to complete the activity. Or, the assistance of 2 or more helpers is required for the patient to complete the activity. If activity was not attempted, code reason: 7-Patient Refused. 9-Not Applicable-not attempted and the patient did not perform the activity before the current illness, exacerbation or injury. 10-Not Attempted due to Environmental Limitations-(lack of equipment, weather restraints, etc.). 88-Not Attempted due to Medical Conditions or Safety Concerns. Shower/Bathe Self (QC): 3 (Pt. requires assistance to wash rear lois area in stance. She is able to wash all other parts except feet. Pt. declines having feet washed.) Pt. agrees to sponge bath sitting in chair. She declines showering, as she just ambulated in room and felt fatigued. Pt. able to wash upper body, under arms, and front lois area in stance. She requires CGA to stand, and to maintain standing balance while standing at walker. OT cleanses rear lois area in stance, as pt. can't reach. Pt. able to brush hair, but OT goes over this for her to thoroughly brush it. All needs are met up in chair. Education OT Patient Education: Correct positioning, Modified ADL techniques, Progress toward Goal/Update tx plan, Purpose of tx/functional activities, Reviewed precautions, Rehab process, Transfer techniques Teaching Recipient: Patient Teaching Methods: Demonstration, Discussion Response to Teaching: Verbalize Understanding, Return Demonstration OT Beaming Machine Operator Goals Mcc Goals Time Frame: Nov 03, 2020 Eating (QC): 6 Oral Hygiene (QC): 6 Toileting Hygiene (QC): 6 Shower/Bathe Self (QC): 4 Upper Body Dressing (QC): 5 Lower Body Dressing (QC): 4 On/Off Footwear (QC): 4 Additional Goals: 1-Demonstrate ADL Tasks, 2-Verbalize Understanding, 3- ImproveStrength/Lenin 1=Demonstrate adherence to instructed precautions during ADL tasks. 2=Patient will verbalize/demonstrate understanding of assistive devices/modifications for ADL. 3=Patient will improve strength/tolerance for activity to enable patient to perform ADL's. OT Education/Plan Problem List/Assessment Assessment: Decreased Activ Tolerance, Impaired Self-Care Skills Discharge Recommendations Plan/Recommendations: Continue POC Therapy Discharge Recommendati: Post Acute OT Treatment Plan/Plan of Care Treatment,Training & Education: Yes Patient would benefit from OT for education, treatment and training to promote independence in ADL's, mobility, safety and/or upper extremity function for ADL's. Plan of Care: ADL Retraining, Functional Mobility, UE Funct Exercise/Act Treatment Duration: Nov 03, 2020 Frequency: 5 times per week Estimated Hrs Per Day: .25 hour per day Agreement: Yes Rehab Potential: Fair Time/GCodes Start Time: 11:20 Stop Time: 11:37 Total Time Billed (hr/min): 17 Billed Treatment Time 1, ADL LM ZAYAS OT Oct 21, 2020 14:00
[2020-10-21] MEDS: ADVAIR HFA 115/21 MCG INHALER 8 GM IH SCH (15:52)
[2020-10-21] MEDS: UMECLIDINIUM BROMIDE (INCRUSE ELLIPTA) 7'S IH SCH (15:52)
--- NOTE | 2020-10-21 20:02 | Progress Note ---
Subjective Date Seen by a Provider: Oct 21, 2020 Time Seen by a Provider: 09:45 Subjective/Events-last exam Pt doing a lot better today On five liters but still very weak SOB is and an issue and poor stamina Will DC catheter today Will DC telemetry Doing pretty well otherwise Will review medications Overall feels like she is on the mend but at this current time she doesn't meet the criteria for [place] and she can't go home yet and I don't have a bed in inpatient rehab Denies any new issues other than weakness Review of Systems General: Fatigue, Malaise Pulmonary: Dyspnea Objective Exam Last Set of Vital Signs Vital Signs Date Time Temp Pulse Resp B/P (MAP) Pulse Ox O2 Delivery O2 Flow Rate FiO2 10/21/20 19:44 35.7 111 20 132/77 (95) 92 High Flow N/C 5.00 10/20/20 07:11 30 Capillary Refill : Less Than 3 Seconds I&O Intake and Output 10/21/20 00:00 Intake Total 1700 ml Output Total 2700 ml Balance -1000 ml Intake Oral 1700 ml Output Urine Total 2700 ml # Bowel Movements 2 General: Alert, Oriented X3, Cooperative, No Acute Distress, Other (fatigued) Lungs: Clear to Auscultation, Normal Air Movement, Other (mild tachypnea) Heart: Regular Rate, Normal S1, Normal S2, No Murmurs Neuro: Normal Gait, Normal Speech, Strength at 5/5 X4 Ext, Normal Tone Results Lab Laboratory Tests 10/20/20 20:05: Glucometer 271H 10/21/20 04:00: White Blood Count 12.6H, Red Blood Count 4.08, Hemoglobin 12.0, Hematocrit 37, Mean Corpuscular Volume 92, Mean Corpuscular Hemoglobin 29, Mean Corpuscular Hemoglobin Concent 32, Red Cell Distribution Width 14.1, Platelet Count 262, Mean Platelet Volume 11.2, Immature Granulocyte % (Auto) 4, Neutrophils (%) (Auto) 70, Lymphocytes (%) (Auto) 18, Monocytes (%) (Auto) 8, Eosinophils (%) (Auto) 0, Basophils (%) (Auto) 0, Neutrophils # (Auto) 8.8H, Lymphocytes # (Auto) 2.3, Monocytes # (Auto) 1.0, Eosinophils # (Auto) 0.0, Basophils # (Auto) 0.0, Immature Granulocyte # (Auto) 0.5H, Sodium Level 137, Potassium Level 3.3L, Chloride Level 98, Carbon Dioxide Level 27, Anion Gap 12, Blood Urea Nitrogen 30H, Creatinine 0.86, Estimat Glomerular Filtration Rate > 60, BUN/Creatinine Ratio 35, Glucose Level 120H, Calcium Level 8.5 10/21/20 11:17: Glucometer 213H 10/21/20 15:40: Glucometer 116H Microbiology 10/05/20 Blood Culture - Final, Complete No growth Assessment/Plan Assessment/Plan Assess & Plan/Chief Complaint Assessment: ID- PNA Hypoxia Asthma Myasthenia gravis Obesity RALPH on CPAP DM HTN HLP Right sided PE Plan: treatment O2 Supportive care High risk for intubation 10/07/20: ICU High risk for intubation Steroids 10/08/20: Lasix Xanax Os Vapotherm Monitor closely 10/09/20: Xanax COVID treatment Monitor O2 sats 10/10/20: ICU status Monitor closely for intubation need 10/11/20: Intubation risk Check CXR 10/12/20: Lovenox Abx Steroids Vapotherm 10/13/20: High risk for decompensation Monitor MG Monitor lung status 10/14/20: Appreciate Dr Frey 10/15/20: Monitor O2 sat [place]? 10/21/20: Inpatient rehab? Too functional to go to [place] DC cath DC tely Diagnosis/Problems Diagnosis/Problems (1) COVID-19 Status: Acute (2) Asthma exacerbation Status: Acute Qualifiers: Qualified Codes: J45.901 - Unspecified asthma with (acute) exacerbation (3) Pulmonary embolism Status: Acute Qualifiers: Qualified Codes: I26.99 - Other pulmonary embolism without acute cor pulmonale (4) Hypoxia Status: Acute (5) Myasthenia gravis (6) Hypothyroidism Status: Chronic (7) Hypertension Status: Chronic (8) Diabetes mellitus Status: Chronic (9) Rheumatoid arthritis Status: Chronic Clinical Quality Measures DVT/VTE Risk/Contraindication: Risk Factor Score Per Nursin RFS Level Per Nursing on Admit: 4+=Very High FABIENNE ZAMORA DO Oct 21, 2020 20:02
[2020-10-21] MEDS: NYSTATIN ORAL SUSP 5 ML UDC PO SCH (20:38)
[2020-10-21] MEDS: MELATONIN 10 MG TABLET PO PRN (20:39)
[2020-10-21] MEDS: ALPRAZolam 0.5 MG (XANAX) TAB PO PRN (21:44)
[2020-10-22] MEDS: RT-ALBUTEROL INHALER HFA (VENTOLIN HFA) 18 GM IH SCH ×4 (02:08→23:00)
[2020-10-22] MEDS: inSUlin ASPART (NovoLOG) 1 UNIT/0.01 ML (CHARGE PER UNIT) SC SCH ×4 (06:43→20:52)
[2020-10-22] MEDS: UMECLIDINIUM BROMIDE (INCRUSE ELLIPTA) 7'S IH SCH ×2 (08:07→08:58)
[2020-10-22] MEDS: ADVAIR HFA 115/21 MCG INHALER 8 GM IH SCH ×2 (08:08→08:57)
--- NOTE | 2020-10-22 09:05 | Pulmonary Progress Note ---
Subjective Time Seen by a Provider: 09:05 Sepsis Event Evaluation Height, Weight, BMI Height: 5'6.00" Weight: 297lbs. 0.0oz. 134.474470zr; 55.57 BMI Method:Stated Exam Exam Vital Signs Date Time Temp Pulse Resp B/P (MAP) Pulse Ox O2 Delivery O2 Flow Rate FiO2 10/22/20 08:01 90 High Flow N/C 8.00 10/22/20 04:00 36.9 72 18 119/75 (90) 97 High Flow N/C 5.00 10/22/20 02:08 99 High Flow N/C 4.00 10/22/20 00:00 35.6 93 22 140/75 (96) 93 High Flow N/C 5.00 10/21/20 21:04 97 High Flow N/C 5.00 10/21/20 20:20 High Flow N/C 5.00 10/21/20 19:44 35.7 111 20 132/77 (95) 92 High Flow N/C 5.00 10/21/20 15:34 35.8 78 18 110/56 (74) 95 High Flow N/C 5.00 10/21/20 12:15 36.2 87 20 95/53 (67) 93 High Flow N/C 5.00 I & O 10/22/20 07:00 Intake Total 1760 ml Output Total 2350 ml Balance -590 ml Height & Weight Height: 5'6.00" Weight: 297lbs. 0.0oz. 134.692966np; 55.57 BMI Method:Stated General Appearance: No Apparent Distress, WD/WN, Obese HEENT: Normal ENT Inspection Neck: Limited Range of Motion Respiratory: Chest Non Tender, Lungs Clear, Normal Breath Sounds, No Accessory Muscle Use, No Respiratory Distress Cardiovascular: Regular Rate, Rhythm, No Gallop, No JVD, No Murmur Capillary Refill: Less Than 3 Seconds Extremity: Pedal Edema, Other (Diffuse edema) Neurologic/Psychiatric: Alert, Oriented x3, No Motor/Sensory Deficits, Normal Mood/Affect Skin: Normal Color, Warm/Dry Lymphatic: No Adenopathy Results Lab Laboratory Tests 10/21/20 04:00 Assessment/Plan Assessment/Plan Acute respiratory failure secondary to COVID PNA -Currently on 8 liters NC -Pt is slowly improving -Dx 10/01 and admitted on 10/06 AsthmaAE - Change to prednisone 10mg daily -Duoneb RALPH with CPAP therapy Morbid obesity Hx of Myasthenia Gravis JENNY TORRES DO Oct 22, 2020 09:04
[2020-10-22] MEDS: MONTELUKAST 10 MG (SINGULAIR) TAB PO SCH (09:53)
[2020-10-22] MEDS: LEVOTHYROXINE 50 MCG (LEVOTHROID) TAB PO SCH (09:53)
[2020-10-22] MEDS: TRIAMTERENE/HCTZ 75-50 (MAXZIDE,DYAZIDE) TABLET PO SCH (09:54)
[2020-10-22] MEDS: APIXABAN 5 MG (ELIQUIS) TABLET PO SCH ×2 (09:54→20:51)
[2020-10-22] MEDS: NYSTATIN CREAM (MYCOSTATIN) 30 GM TUBE TP SCH ×3 (09:54→20:52)
[2020-10-22] MEDS: NYSTATIN ORAL SUSP 5 ML UDC PO SCH ×4 (09:54→20:51)
[2020-10-22] MEDS: LORATADINE (CLARITIN) 10 MG TAB PO SCH (09:54)
[2020-10-22] MEDS: LOSARTAN 50 MG (COZAAR) TAB PO SCH (09:54)
[2020-10-22] MEDS: CALCIUM CARB + VIT D 600 MG (CALCARB + D) TAB PO SCH ×2 (09:54→17:31)
[2020-10-22] MEDS: MICONAZOLE 2% POWDER (DESENEX AF) 90 GM TOP SCH ×2 (09:55→20:52)
[2020-10-22] MEDS: PANTOPRAZOLE 40 MG (PROTONIX) TAB PO SCH (09:58)
--- NOTE | 2020-10-22 10:35 | Physical Therapy Daily Note ---
PT Daily Note-Current Subjective Patient in recliner pre tx, agrees to PT, has no complaints of pain. Appearance Patient in recliner post tx with nurse call, phone, tray, all needs met. Mental Status Patient Orientation: Person, Place, Situation Attachments: Oxygen Transfers SCALE: Activities may be completed with or without assistive devices. 2-Mtzzbkvmtd-djscvyt completes the activity by him/herself with no assistance from a helper. 5-Set-up or Clean-up Assistance-helper sets up or cleans up; patient completes activity. [place] assists only prior to or following the activity. 4-Supervision or Touching Assistance-helper provides verbal cues and/or touching/steadying and/or contact guard assistance as patient completes activity. Assistance may be provided throughout the activity or intermittently. 3-Partial/Moderate Assistance-helper does LESS THAN HALF the effort. [place] lifts, holds or supports trunk or limbs, but provides less than half the effort. 2-Substantial/Maximal Assistance-helper does MORE THAN HALF the effort. [place] lifts or holds trunk or limbs and provides more than half the effort. 2-Amxheetre-ssrnhh does ALL the effort. Patient does none of the effort to complete the activity. Or, the assistance of 2 or more helpers is required for the patient to complete the activity. If activity was not attempted, code reason: 7-Patient Refused. 9-Not Applicable-not attempted and the patient did not perform the activity before the current illness, exacerbation or injury. 10-Not Attempted due to Environmental Limitations-(lack of equipment, weather restraints, etc.). 88-Not Attempted due to Medical Conditions or Safety Concerns. Sit to Stand (QC): 4 Chair/Ytj-ic-Nptgw Xfer(QC): 4 SBA Gait Training Distance: 40' Walk 10 feet (QC): 4 Gait Persons Needed: 1 Gait Assistive Device: FWW SBA, slow but steady ambulation, SOB after ambulation but recovered after a minute with purse lip breathing Exercises Seated Therapy Exercises: Ankle pumps, Long arc quads Seated Reps: 20 Treatments transfers, ambulation, LE exercise Assessment Current Status: Fair Progress SOB with activity, needs rest breaks to recover PT Legal Billing Coordinator Goals Legal Billing Coordinator Goals PT Skilled Nursing Goals Time Frame: Nov 08, 2020 Roll Left & Right (QC): 6 Sit to Lying (QC): 6 Lying-Sitting on Side/Bed(QC): 6 Sit to Stand (QC): 6 Chair/Yem-cr-Pheyd Xfer(QC): 6 Toilet Transfer (QC): 6 Does the Patient Walk: Yes Walk 10 feet (QC): 6 Walk 50ft with 2 Turns (QC): 6 Walk 150 ft (QC): 6 PT Plan Problem List Problem List: Activity Tolerance, Functional Strength, Safety, Balance, Gait, Transfer, ROM Treatment/Plan Treatment Plan: Continue Plan of Care Treatment Plan: Education, Functional Activity [place], Functional Strength, Gait, Safety, Therapeutic Exercise Treatment Duration: Nov 08, 2020 Frequency: 6 times per week Estimated Hrs Per Day: .25 hour per day Patient and/or Family Agrees t: Yes Safety Risks/Education Patient Education: Gait Training, Transfer Techniques, Correct Positioning, Safety Issues Teaching Recipient: Patient Teaching Methods: Demonstration, Discussion Response to Teaching: Reinforcement Needed Time/GCodes Time In: 0850 Time Out: 0900 Total Billed Treatment Time: 10 Total Billed Treatment 1 visit FA ROBIN LUIS PT Oct 22, 2020 10:35
--- NOTE | 2020-10-22 13:09 | NUR ---
CM/SS follow up. The patient's physician spoke with this sw. She plans to get the patient to inpatient rehab pending insurance approval. Lisa is submitting to insurance today. Awaiting acceptance/denial.
--- NOTE | 2020-10-22 13:29 | NUR ---
IRF Evaluation Determination: Accepted Chart review complete and findings discussed with Dr. Jimenez - patient accepted. Patient does have [employer]BS; therefore, prior authorization will need to be obtained. PAS initiated and completed. Prior authorization initiated and clinical information to be submitted. Will continue to follow. Thank you for this referral.
--- NOTE | 2020-10-22 13:43 | NUR ---
Patient has met her 20 days and greater than three day fever free and improving symptoms to come out of COVID isolation. She will need moved to another room. Her current room and furniture will need to be terminally cleaned per our plan. I am also going to remove MRSA off her since her abd wound is healed.
--- NOTE | 2020-10-22 14:10 | Occupational Ther Daily Note ---
OT Current Status-Daily Note Subjective Pt AxO. Pt slightly anxious through session. Pt agrees to tx. Desires to brush teeth. Pt denies pain, intermittent c/o dizziness/ SOB. Mental Status/Objective Patient Orientation: Person, Place, Situation Attachments: Oxygen ADL-Treatment Therapy Code Descriptions/Definitions Functional [place] Measure: 0=Not Assessed/NA 4=Minimal Assistance 1=Total Assistance 5=Supervision or Setup 2=Maximal Assistance 6=Modified [place] 3=Moderate Assistance 7=Complete IndependenceSCALE: Activities may be completed with or without assistive devices. 8-Ipqrbwukhw-ffyysua completes the activity by him/herself with no assistance from a helper. 5-Set-up or Clean-up Assistance-helper sets up or cleans up; patient completes activity. [place] assists only prior to or following the activity. 4-Supervision or Touching Assistance-helper provides verbal cues and/or touching/steadying and/or contact guard assistance as patient completes activity. Assistance may be provided throughout the activity or intermittently. 3-Partial/Moderate Assistance-helper does LESS THAN HALF the effort. [place] lifts, holds or supports trunk or limbs, but provides less than half the effort. 2-Substantial/Maximal Assistance-helper does MORE THAN HALF the effort. [place] lifts or holds trunk or limbs and provides more than half the effort. 4-Liyasxmes-osvqlt does ALL the effort. Patient does none of the effort to complete the activity. Or, the assistance of 2 or more helpers is required for the patient to complete the activity. If activity was not attempted, code reason: 7-Patient Refused. 9-Not Applicable-not attempted and the patient did not perform the activity before the current illness, exacerbation or injury. 10-Not Attempted due to Environmental Limitations-(lack of equipment, weather restraints, etc.). 88-Not Attempted due to Medical Conditions or Safety Concerns. Eating (QC): 6 Oral Hygiene (QC): 4 (SBA all tasks in stance. Pt utilizes walker/ support of sink, requires sit on commode placed behind her 2x during tooth brushing for ~5 min.) Toileting Hygiene (QC): 6 (States just finished with restroom at [facility]. IND.) Toilet Transfer (QC): 6 (States just finished with restroom at [facility]. IND.) Other Treatment Pt sit to stand SBA, ambulates to sink, standing for ~2 min at a time and rest breaks for ~1 min due to SOB/ dizziness. Pt brushes teeth ~5 min. Returns to recliner with SBA. Pt is educated on endurance tasks to be completed in chair, including shoulder flexion/ back flies/ back press into chair. Pt agrees, denies needs. Left in recliner with blanket/ call light in reach. Education OT Patient Education: Correct positioning, Exercise program, Home exercise p rogram, Purpose of tx/functional activities, Safety issues Teaching Recipient: Patient Teaching Methods: Demonstration, Discussion Response to Teaching: Verbalize Understanding, Return Demonstration OT Nursing Home Goals Nursing Home Goals Time Frame: Nov 03, 2020 Eating (QC): 6 Oral Hygiene (QC): 6 Toileting Hygiene (QC): 6 Shower/Bathe Self (QC): 4 Upper Body Dressing (QC): 5 Lower Body Dressing (QC): 4 On/Off Footwear (QC): 4 Additional Goals: 1-Demonstrate ADL Tasks, 2-Verbalize Understanding, 3- ImproveStrength/[place] 1=Demonstrate adherence to instructed precautions during ADL tasks. 2=Patient will verbalize/demonstrate understanding of assistive devices/modifications for ADL. 3=Patient will improve strength/tolerance for activity to enable patient to perform ADL's. OT Education/Plan Problem List/Assessment Assessment: Decreased Activ Tolerance, Dependent Transfers, Impaired I ADL's, Impaired Self-Care Skills Discharge Recommendations Plan/Recommendations: Continue POC Therapy Discharge Recommendati: Home & Family, Post Acute OT Treatment Plan/Plan of Care Treatment,Training & Education: Yes Patient would benefit from OT for education, treatment and training to promote independence in ADL's, mobility, safety and/or upper extremity function for ADL's. Plan of Care: ADL Retraining, Functional Mobility, UE Funct Exercise/Act Treatment Duration: Nov 03, 2020 Frequency: 5 times per week Estimated Hrs Per Day: .25 hour per day Agreement: Yes Rehab Potential: Fair Time/GCodes Start Time: 13:23 Stop Time: 13:37 Total Time Billed (hr/min): 14 Billed Treatment Time 1, ADL (14) TANIYA NOBLE OTR Oct 22, 2020 14:10
--- NOTE | 2020-10-22 14:26 | NUR ---
PT MOVED TO ROOM 420 BY RN, PCT AND PHYSICAL THERAPIST. PT IS SITTING IN RECLINER ON , WITH CALL LIGHT AT SIDE, COMMODE NEAR, AND ALL NEEDS MET AT THIS TIME. RN WILL CONTINUE TAKING CARE OF HER.
--- NOTE | 2020-10-22 14:27 | NUR ---
"RD ASSESSMENT PMHx: chronic bronchitis; pneumonia; DVT; hypercholesterolemia; myasthenia gravis; hypothyroidism; DM; PT INTERACTION: Note pt is currently in COVID isolation, per chart review. Note all diet information for nutrition follow-up is per Norma RN or per chart review. Norma states current appetite appears good. Note avg PO intake 88% x4d, per chart review. Norma states no issues with nausea, vomiting, constipation, or diarrhea that she is aware of. Note last BM as 10/22, and pt not currently on bowel regimen per chart review. ABNORMAL NUTRITION-RELATED LAB VALUES LOW: K 3.3; HIGH: BUN 30; glu 120; Est. kcal needs: 3621-6150 kcal | 25-30 kcal/kg IBW, based on IBW of 59.1 kg (130#) Est. Pro needs: 47-59 g Pro | 0.8-1.0 g Pro/kg IBW PES STATEMENT: Given current PO intake, no nutrition diagnosis at this time (NO-1.1). INTERVENTION: Continue with current diet order of CHO 60g/m 1snack diet. DC current supplementation order of Glucerna with meals TID. Note pt avg PO intake >75%. Will continue to follow and reassess as pt needs, intake, and status change. Gely HARVEY, MS RD LD [phone] cell"
--- NOTE | 2020-10-22 20:38 | Progress Note ---
Subjective Date Seen by a Provider: Oct 22, 2020 Time Seen by a Provider: 11:15 Subjective/Events-last exam Pt progressing pretty well but she did get up and around in the room alone and desaturated to 78%. Urinating well Bowels not moving today but they did yesterday Inpatient rehab submitted to her insurance Slow recovery expected Review of Systems General: Fatigue Pulmonary: Dyspnea Objective Exam Last Set of Vital Signs Vital Signs Date Time Temp Pulse Resp B/P (MAP) Pulse Ox O2 Delivery O2 Flow Rate FiO2 10/22/20 19:23 35.9 93 20 131/73 (92) 96 High Flow N/C 7.00 10/20/20 07:11 30 Capillary Refill : Less Than 3 Seconds I&O Intake and Output 10/22/20 00:00 Intake Total 1920 ml Output Total 3090 ml Balance -1170 ml Intake Oral 1920 ml Output Urine Total 2690 ml Post Void Residual 400 ml # Voids 2 # Bowel Movements 5 Daily Weight Change Unsure/Unresponsive Results Lab Laboratory Tests 10/22/20 05:40: Glucometer 132H 10/22/20 11:11: Glucometer 191H 10/22/20 15:55: Glucometer 162H 10/22/20 20:30: Glucometer 194H Microbiology 10/05/20 Blood Culture - Final, Complete No growth Assessment/Plan Assessment/Plan Assess & Plan/Chief Complaint Assessment: COVID-19 PNA Hypoxia Asthma Myasthenia gravis Obesity RALPH on CPAP DM HTN HLP Right sided PE Plan: COVID-19 treatment O2 Supportive care High risk for intubation 10/07/20: ICU High risk for intubation Steroids 10/08/20: Lasix Xanax Os Vapotherm Monitor closely 10/09/20: Xanax COVID treatment Monitor O2 sats 10/10/20: ICU status Monitor closely for intubation need 10/11/20: Intubation risk Check CXR 10/12/20: Lovenox Abx Steroids Vapotherm 10/13/20: High risk for decompensation Monitor MG Monitor lung status 10/14/20: Appreciate Dr Frey 10/15/20: Monitor O2 sat [place]? 10/21/20: Inpatient rehab? Too functional to go to [place] DC cath DC tely 10/22/20: IRF tomorrow Check labs and CXR in morning Diagnosis/Problems Diagnosis/Problems (1) COVID-19 Status: Acute (2) Asthma exacerbation Status: Acute Qualifiers: Qualified Codes: J45.901 - Unspecified asthma with (acute) exacerbation (3) Pulmonary embolism Status: Acute Qualifiers: Qualified Codes: I26.99 - Other pulmonary embolism without acute cor pulmonale (4) Hypoxia Status: Acute (5) Myasthenia gravis (6) Hypothyroidism Status: Chronic (7) Hypertension Status: Chronic (8) Diabetes mellitus Status: Chronic (9) Rheumatoid arthritis Status: Chronic Clinical Quality Measures DVT/VTE Risk/Contraindication: Risk Factor Score Per Nursin RFS Level Per Nursing on Admit: 4+=Very High FABIENNE ZAMORA DO Oct 22, 2020 20:38
[2020-10-22] MEDS: MELATONIN 10 MG TABLET PO PRN (20:55)
[2020-10-23] MEDS: RT-ALBUTEROL INHALER HFA (VENTOLIN HFA) 18 GM IH SCH (02:56)
[2020-10-23] MEDS: inSUlin ASPART (NovoLOG) 1 UNIT/0.01 ML (CHARGE PER UNIT) SC SCH (05:31)
[2020-10-23 06:29] LABS: BASOPHILS % (AUTO) 0 % (0-10); EOSINOPHILS # (AUTO) 0.1 10^3/uL (0.0-0.3); EOSINOPHILS % (AUTO) 1 % (0-10); HEMATOCRIT 37 % (35-52); HEMOGLOBIN 11.6 g/dL (11.5-16.0); LYMPHOCYTES # (AUTO) 1.5 10^3/uL (1.0-4.0); LYMPHOCYTES % (AUTO) 17 % (12-44); MEAN CORPUSCULAR HEMOGLOBIN 30 pg (25-34); MEAN CORPUSCULAR HGB CONC 32 g/dL (32-36); MEAN CORPUSCULAR VOLUME 93 fL (80-99); MEAN PLATELET VOLUME 10.7 fL (9.0-12.2); MONOCYTES # (AUTO) 0.7 10^3/uL (0.0-1.0); MONOCYTES % (AUTO) 8 % (0-12); NEUTROPHILS # (AUTO) 6.3 10^3/uL (1.8-7.8); NEUTROPHILS % (AUTO) 72 % (42-75); PLATELET COUNT 230 10^3/uL (130-400); WHITE BLOOD COUNT 8.8 10^3/uL (4.3-11.0)
[2020-10-23 06:51] LABS: ALANINE AMINOTRANSFERASE 33 U/L (0-55); ALBUMIN 3.1 GM/DL (3.2-4.5); ALKALINE PHOSPHATASE 61 U/L (40-136); BILIRUBIN,TOTAL 0.8 MG/DL (0.1-1.0); BUN/CREATININE RATIO 27; CALCIUM 8.4 MG/DL (8.5-10.1); CARBON DIOXIDE 30 MMOL/L (21-32); CHLORIDE 98 MMOL/L (98-107); CREATININE SERUM 0.81 MG/DL (0.60-1.30); GFR ESTIMATED > 60; GLUCOSE 152 MG/DL (70-105); POTASSIUM 3.5 MMOL/L (3.6-5.0); SODIUM 138 MMOL/L (135-145); TOTAL PROTEIN 5.3 GM/DL (6.4-8.2)
[2020-10-23] MEDS ORDERED: predniSONE 10 MG TAB PO SCH (09:00)
--- NOTE | 2020-10-23 09:00 | Discharge Summary ---
Diagnosis/Chief Complaint Date of Admission Oct 06, 2020 at 00:11 Date of Discharge Discharge Date: Oct 23, 2020 Discharge Diagnosis COVID-19 PNA Respiratory failure required max Vapotherm did not require intubation Acute PE on OAC MG prednisone dependent currently RALPH on CPAP Asthma DM HTN Discharge Summary Discharge Physical Examination Allergies: Coded Allergies: adhesive tape (Verified Allergy, Intermediate, 02/21/20) BLISTERS AND RAW SKIN amlodipine (Verified Allergy, Unknown, 02/22/13) erythromycin base (Verified Allergy, Unknown, 02/22/13) Uncoded Allergies: ALMONDS (Adverse Reaction, Mild, 02/22/20) SHE HAS PAIN ALL OVER WHEN SHE EATS THEM Vitals & I&Os Vital Signs Date Time Temp Pulse Resp B/P (MAP) Pulse Ox O2 Delivery O2 Flow Rate FiO2 10/23/20 10:15 36.2 90 20 156/81 97 High Flow N/C 7.00 10/20/20 07:11 30 General Appearance: Alert, Oriented X3, Cooperative Respiratory: Clear to Auscultation Cardiovascular: Regular Rate Neuro: Normal Gait, Normal Speech, Strength at 5/5 X4 Ext Hospital Course Was the Problem List Reviewed?: Yes Patient had a lengthy hospital course from 10/06/20 until 10/23/10 most of which occurred in ICU due to high risk for intubation due to COVID-19, PNA, PE, MG, Asthma and RALPH. Patient placed on empiric abx treatment along with steroids and Vapotherm and OAC for PE. Slow recovery occurred. Ultimately weaned down and taken out of isolation and moved to floor and was able to participate in PT OT to move to IRF for aggressive therapy. Labs (last 24 hrs) Laboratory Tests 10/05/20 21:12: White Blood Count 4.5, Red Blood Count 4.47, Hemoglobin 13.3, Hematocrit 42, Mean Corpuscular Volume 93, Mean Corpuscular Hemoglobin 30, Mean Corpuscular Hemoglobin Concent 32, Red Cell Distribution Width 14.4, Platelet Count 230, Mean Platelet Volume 10.1, Immature Granulocyte % (Auto) 1, Neutrophils (%) (Auto) 79H, Lymphocytes (%) (Auto) 14, Monocytes (%) (Auto) 6, Eosinophils (%) (Auto) 0, Basophils (%) (Auto) 0, Neutrophils # (Auto) 3.6, Lymphocytes # (Auto) 0.6L, Monocytes # (Auto) 0.3, Eosinophils # (Auto) 0.0, Basophils # (Auto) 0.0, Immature Granulocyte # (Auto) 0.0, Prothrombin Time 12.6, INR Comment 0.9, Activated Partial Thromboplast Time 26, D-Dimer 1.21H, Sodium Level 136, Pota ssium Level 4.6, Chloride Level 100, Carbon Dioxide Level 23, Anion Gap 13, Blood Urea Nitrogen 14, Creatinine 0.85, Estimat Glomerular Filtration Rate > 60, BUN/Creatinine Ratio 16, Glucose Level 176H, Lactic Acid Level 1.01, Calcium Level 8.2L, Corrected Calcium 8.6, Total Bilirubin 0.5, Aspartate Amino Transf (AST/SGOT) 32, Alanine Aminotransferase (ALT/SGPT) 23, Alkaline Phosphatase 77, Lactate Dehydrogenase 473H, C-Reactive Protein High Sensitivity 15.75H, Total Protein 7.4, Albumin 3.5, Procalcitonin 0.10H 10/06/20 03:04: White Blood Count 4.3, Red Blood Count 4.36, Hemoglobin 13.0, Hematocrit 42, Mean Corpuscular Volume 97, Mean Corpuscular Hemoglobin 30, Mean Corpuscular Hemoglobin Concent 31L, Red Cell Distribution Width 14.5, Platelet Count 205, Mean Platelet Volume 9.9, Immature Granulocyte % (Auto) 1, Neutrophils (%) (Auto) 84H, Lymphocytes (%) (Auto) 11L, Monocytes (%) (Auto) 4, Eosinophils (%) (Auto) 0, Basophils (%) (Auto) 0, Neutrophils # (Auto) 3.7, Lymphocytes # (Auto) 0.5L, Monocytes # (Auto) 0.2, Eosinophils # (Auto) 0.0, Basophils # (Auto) 0.0, Immature Granulocyte # (Auto) 0.1, Sodium Level 139, Potassium Level 4.4, Chloride Level 102, Carbon Dioxide Level 24, Anion Gap 13, Blood Urea Nitrogen 14, Creatinine 0.97, Estimat Glomerular Filtration Rate 58, BUN/Creatinine Ratio 14, Glucose Level 228H, Calcium Level 8.3L, Corrected Calcium 8.7, Total Bilirubin 0.5, Aspartate Amino Transf (AST/SGOT) 22, Alanine Aminotransferase (ALT/SGPT) 21, Alkaline Phosphatase 79, Total Protein 7.0, Albumin 3.5, Phosphorus Level 3.6, Magnesium Level 2.0 10/06/20 15:00: Blood Gas Puncture Site LEFT RADIAL, Blood Gas Patient Temperature 95.7, Arterial Blood pH 7.42, Arterial Blood Partial Pressure CO2 39, Arterial Blood Partial Pressure O2 64L, Arterial Blood HCO3 26, Arterial Blood Total CO2 26.8, Arterial Blood Oxygen Saturation 95, Arterial Blood Base Excess 1.3, Carlos Test POSITIVE, Blood Gas Ventilator Setting NO, Blood Gas Inspired Oxygen 2 L 10/07/20 02:55: White Blood Count 7.6, Red Blood Count 3.93, Hemoglobin 11.7, Hematocrit 38, Mean Corpuscular Volume 97, Mean Corpuscular Hemoglobin 30, Mean Corpuscular Hemoglobin Concent 31L, Red Cell Distribution Width 13.9, Platelet Count 212, Mean Platelet Volume 9.8, Immature Granulocyte % (Auto) 1, Neutrophils (%) (Auto) 89H, Lymphocytes (%) (Auto) 7L, Monocytes (%) (Auto) 3, Eosinophils (%) (Auto) 0, Basophils (%) (Auto) 0, Neutrophils # (Auto) 6.8, Lymphocytes # (Auto) 0.5L, Monocytes # (Auto) 0.2, Eosinophils # (Auto) 0.0, Basophils # (Auto) 0.0, Immature Granulocyte # (Auto) 0.1, Sodium Level 140, Potassium Level 4.1, Chloride Level 106, Carbon Dioxide Level 24, Anion Gap 10, Blood Urea Nitrogen 15, Creatinine 0.78, Estimat Glomerular Filtration Rate > 60, BUN/Creatinine Ratio 19, Glucose Level 215H, Calcium Level 8.2L, Phosphorus Level 2.3, Magnesium Level 2.2 10/07/20 12:01: Glucometer 187H 10/07/20 14:11: Vancomycin Level Trough 12.1 10/07/20 15:43: Glucometer 223H 10/07/20 19:47: Glucometer 254H 10/08/20 03:35: White Blood Count 11.5H, Red Blood Count 3.71L, Hemoglobin 11.1L, Hematocrit 35, Mean Corpuscular Volume 95, Mean Corpuscular Hemoglobin 30, Mean Corpuscular Hemoglobin Concent 31L, Red Cell Distribution Width 14.1, Platelet Count 218, Mean Platelet Volume 9.6, Immature Granulocyte % (Auto) 1, Neutrophils (%) (Auto) 92H, Lymphocytes (%) (Auto) 4L, Monocytes (%) (Auto) 3, Eosinophils (%) (Auto) 0, Basophils (%) (Auto) 0, Neutrophils # (Auto) 10.6H, Lymphocytes # (Au to) 0.4L, Monocytes # (Auto) 0.3, Eosinophils # (Auto) 0.0, Basophils # (Auto) 0.0, Immature Granulocyte # (Auto) 0.1, Neutrophils % (Manual) 86, Lymphocytes % (Manual) 4, Monocytes % (Manual) 3, Basophils % (Manual) 1, Band Neutrophils 5, Atypical Lymphocytes 1, Basophilic Stippling SLIGHT, Microcytosis MODERATE, Sodium Level 142, Potassium Level 4.3, Chloride Level 106, Carbon Dioxide Level 26, Anion Gap 10, Blood Urea Nitrogen 17, Creatinine 0.76, Estimat Glomerular Filtration Rate > 60, BUN/Creatinine Ratio 22, Glucose Level 216H, Calcium Level 8.3L, Phosphorus Level 3.8, Magnesium Level 2.0, B-Type Natriuretic Peptide 67.0 10/08/20 10:40: Blood Gas Puncture Site L RAD, Blood Gas Patient Temperature 36.1, Arterial Blood pH 7.42, Arterial Blood Partial Pressure CO2 46H, Arterial Blood Partial Pressure O2 61L, Arterial Blood HCO3 29H, Arterial Blood Total CO2 30.8, Arterial Blood Oxygen Saturation 91L, Arterial Blood Base Excess 4.8H, Carlos Test YES-POS, Blood Gas Ventilator Setting NO, Blood Gas Inspired Oxygen 40 10/08/20 11:41: Glucometer 264H 10/08/20 15:11: Glucometer 162H 10/08/20 21:04: Glucometer 240H 10/09/20 05:12: Sodium Level 141, Potassium Level 4.1, Chloride Level 100, Carbon Dioxide Level 29, Anion Gap 12, Blood Urea Nitrogen 20H, Creatinine 0.88, Estimat Glomerular Filtration Rate > 60, BUN/Creatinine Ratio 23, Glucose Level 229H, Calcium Level 8.6, Phosphorus Level 4.2, Magnesium Level 2.3 10/09/20 05:15: White Blood Count 10.5, Red Blood Count 3.80, Hemoglobin 11.3L, Hematocrit 36, Mean Corpuscular Volume 95, Mean Corpuscular Hemoglobin 30, Mean Corpuscular Hemoglobin Concent 32, Red Cell Distribution Width 14.1, Platelet Count 225, Mean Platelet Volume 9.8, Immature Granulocyte % (Auto) 1, Neutrophils (%) (Auto) 93H, Lymphocytes (%) (Auto) 3L, Monocytes (%) (Auto) 3, Eosinophils (%) (Auto) 0, Basophils (%) (Auto) 0, Neutrophils # (Auto) 9.8H, Lymphocytes # (Auto) 0.3L, Monocytes # (Auto) 0.3, Eosinophils # (Auto) 0.0, Basophils # (Auto) 0.0, Immature Granulocyte # (Auto) 0.1 10/09/20 12:35: Glucometer 237H 10/09/20 15:50: Glucometer 236H 10/09/20 20:39: Glucometer 229H 10/10/20 02:45: White Blood Count 10.8, Red Blood Count 3.92, Hemoglobin 11.6, Hematocrit 37, Mean Corpuscular Volume 94, Mean Corpuscular Hemoglobin 30, Mean Corpuscular Hemoglobin Concent 31L, Red Cell Distribution Width 14.2, Platelet Count 225, Mean Platelet Volume 9.5, Immature Granulocyte % (Auto) 2, Neutrophils (%) (Auto) 93H, Lymphocytes (%) (Auto) 3L, Monocytes (%) (Auto) 2, Eosinophils (%) (Auto) 0, Basophils (%) (Auto) 0, Neutrophils # (Auto) 10.0H, Lymphocytes # (Auto) 0.4L, Monocytes # (Auto) 0.2, Eosinophils # (Auto) 0.0, Basophils # (Auto) 0.0, Immature Granulocyte # (Auto) 0.2H, Sodium Level 138, Potassium Level 4.4, Chloride Level 99, Carbon Dioxide Level 28, Anion Gap 11, Blood Urea Nitrogen 23H, Creatinine 0.83, Estimat Glomerular Filtration Rate > 60, BUN/Crea tinine Ratio 28, Glucose Level 215H, Calcium Level 8.7, Phosphorus Level 3.2, Magnesium Level 2.4 10/10/20 11:50: Glucometer 216H 10/10/20 16:12: Glucometer 244H 10/10/20 20:53: Glucometer 226H 10/11/20 03:30: White Blood Count 9.2, Red Blood Count 3.99, Hemoglobin 11.7, Hematocrit 37, Mean Corpuscular Volume 94, Mean Corpuscular Hemoglobin 29, Mean Corpuscular Hemoglobin Concent 31L, Red Cell Distribution Width 13.9, Platelet Count 252, Mean Platelet Volume 9.6, Immature Granulocyte % (Auto) 2, Neutrophils (%) (Auto) 91H, Lymphocytes (%) (Auto) 5L, Monocytes (%) (Auto) 2, Eosinophils (%) (Auto) 0, Basophils (%) (Auto) 0, Neutrophils # (Auto) 8.3H, Lymphocytes # (Auto) 0.4L, Monocytes # (Auto) 0.2, Eosinophils # (Auto) 0.0, Basophils # (A uto) 0.0, Immature Granulocyte # (Auto) 0.2H, Sodium Level 134L, Potassium Level 4.6, Chloride Level 97L, Carbon Dioxide Level 28, Anion Gap 9, Blood Urea Nitrogen 25H, Creatinine 0.80, Estimat Glomerular Filtration Rate > 60, BUN/Creatinine Ratio 31, Glucose Level 222H, Calcium Level 8.7, Phosphorus Level 4.0, Magnesium Level 2.3, Smear Scan YES 10/11/20 10:17: Glucometer 278H 10/11/20 15:36: Glucometer 229H 10/11/20 21:22: Glucometer 250H 10/12/20 02:30: White Blood Count 8.4, Red Blood Count 4.09, Hemoglobin 12.0, Hematocrit 38, Mean Corpuscular Volume 93, Mean Corpuscular Hemoglobin 29, Mean Corpuscular Hemoglobin Concent 32, Red Cell Distribution Width 13.7, Platelet Count 303, Mean Platelet Volume 10.2, Immature Granulocyte % (Auto) 4, Neutrophils (%) (Auto) 88H, Lymphocytes (%) (Auto) 6L, Monocytes (%) (Auto) 2, Eosinophils (%) (Auto) 0, Basophils (%) (Auto) 0, Neutrophils # (Auto) 7.5, Lymphocytes # (Auto) 0.5L, Monocytes # (Auto) 0.2, Eosinophils # (Auto) 0.0, Basophils # (Auto) 0.0, Immature Granulocyte # (Auto) 0.3H, Sodium Level 134L, Potassium Level 5.2H, Chloride Level 97L, Carbon Dioxide Level 25, Anion Gap 12, Blood Urea Nitrogen 25H, Creatinine 0.78, Estimat Glomerular Filtration Rate > 60, BUN/Creatinine Ratio 32, Glucose Level 241H, Calcium Level 8.6, Phosphorus Level 4.3, Magnesium Level 2.4 10/12/20 10:16: Glucometer 322H 10/12/20 16:16: Glucometer 273H 10/12/20 20:01: Glucometer 258H 10/13/20 03:30: White Blood Count 9.4, Red Blood Count 4.28, Hemoglobin 12.4, Hematocrit 39, Mean Corpuscular Volume 92, Mean Corpuscular Hemoglobin 29, Mean Corpuscular Hemoglobin Concent 32, Red Cell Distribution Width 13.7, Platelet Count 331, Mean Platelet Volume 9.9, Immature Granulocyte % (Auto) 5, Neutrophils (%) (Auto) 86H, Lymphocytes (%) (Auto) 5L, Monocytes (%) (Auto) 4, Eosinophils (%) (Auto) 0, Basophils (%) (Auto) 0, Neutrophils # (Auto) 8.1H, Lymphocytes # (Auto) 0.5L, Monocytes # (Auto) 0.4, Eosinophils # (Auto) 0.0, Basophils # (Auto) 0.0, Immature Granulocyte # (Auto) 0.4H, Sodium Level 132L, Potassium Level 4.6, Chloride Level 96L, Carbon Dioxide Level 27, Anion Gap 9, Blood Urea Nitrogen 27H, Creatinine 0.80, Estimat Glomerular Filtration Rate > 60, BUN/Creatinine Ratio 34, Glucose Level 252H, Calcium Level 8.7, Phosphorus Level 3.8, Magnesium Level 2.4 10/13/20 11:39: Glucometer 230H 10/13/20 15:36: Glucometer 270H 10/13/20 20:27: Glucometer 267H 10/14/20 03:01: White Blood Count 11.9H, Red Blood Count 4.27, Hemoglobin 12.5, Hematocrit 39, Mean Corpuscular Volume 92, Mean Corpuscular Hemoglobin 29, Mean Corpuscular Hemoglobin Concent 32, Red Cell Distribution Width 13.6, Platelet Count 366, Mean Platelet Volume 9.9, Immature Granulocyte % (Auto) 5, Neutrophils (%) (Auto) 86H, Lymphocytes (%) (Auto) 4L, Monocytes (%) (Auto) 4, Eosinophils (%) (Auto) 0, Basophils (%) (Auto) 0, Neutrophils # (Auto) 10.2H, Lymphocytes # (Auto) 0.5L, Monocytes # (Auto) 0.5, Eosinophils # (Auto) 0.0, Basophils # (Auto) 0.0, Immature Granulocyte # (Auto) 0.6H, Sodium Level 134L, Potassium Level 4.7, Chloride Level 97L, Carbon Dioxide Level 27, Anion Gap 10, Blood Urea Nitrogen 29H, Creatinine 0.84, Estimat Glomerular Filtration Rate > 60, BUN/Creatinine Ratio 35, Glucose Level 234H, Calcium Level 8.5, Phosphorus Level 3.8, Magnesium Level 2.5H, B-Type Natriuretic Peptide 20.8 10/14/20 11:05: Glucometer 276H 10/14/20 11:30: D-Dimer 0.52H, Procalcitonin 0.03 10/14/20 15:47: Glucometer 312H 10/14/20 21:06: Glucometer 303H 10/15/20 04:30: White Blood Count 15.1H, Red Blood Count 4.20, Hemoglobin 12.4, Hematocrit 39, Mean Corpuscular Volume 93, Mean Corpuscular Hemoglobin 30, Mean Corpuscular Hemoglobin Concent 32, Red Cell Distribution Width 13.8, Platelet Count 364, Mean Platelet Volume 10.9, Immature Granulocyte % (Auto) 4, Neutrophils (%) (Auto) 88H, Lymphocytes (%) (Auto) 4L, Monocytes (%) (Auto) 4, Eosinophils (%) (Auto) 0, Basophils (%) (Auto) 0, Neutrophils # (Auto) 13.3H, Lymphocytes # (Auto) 0.6L, Monocytes # (Auto) 0.6, Eosinophils # (Auto) 0.0, Basophils # (Auto) 0.0, Immature Granulocyte # (Auto) 0.6H, Neutrophils % (Manual) 91, Lymphocytes % (Manual) 5, Monocytes % (Manual) 2, Band Neutrophils 2, Blood Morphology Comment NORMAL, Sodium Level 134L, Potassium Level 4.9, Chloride Level 97L, Carbon Dioxide Level 26, Anion Gap 11, Blood Urea Nitrogen 38H, Creatinine 0.93, Estimat Glomerular Filtration Rate > 60, BUN/Creatinine Ratio 41, Glucose Level 241H, Calcium Level 8.8, Phosphorus Level 4.2, Magnesium Level 2.7H 10/15/20 11:34: Glucometer 266H 10/15/20 17:24: Glucometer 281H 10/15/20 20:49: Glucometer 318H 10/16/20 03:30: White Blood Count 17.6H, Red Blood Count 4.07, Hemoglobin 12.0, Hematocrit 37, Mean Corpuscular Volume 92, Mean Corpuscular Hemoglobin 30, Mean Corpuscular Hemoglobin Concent 32, Red Cell Distribution Width 13.6, Platelet Count 338, Mean Platelet Volume 10.2, Immature Granulocyte % (Auto) 5, Neutrophils (%) (Auto) 86H, Lymphocytes (%) (Auto) 5L, Monocytes (%) (Auto) 4, Eosinophils (%) (Auto) 0, Basophils (%) (Auto) 0, Neutrophils # (Auto) 15.2H, Lymphocytes # (Auto) 0.8L, Monocytes # (Auto) 0.7, Eosinophils # (Auto) 0.0, Basophils # (Auto) 0.1, Immature Granulocyte # (Auto) 0.9H, Sodium Level 130L, Potassium Level 4.7, Chloride Level 96L, Carbon Dioxide Level 24, Anion Gap 10, Blood Urea Nitrogen 41H, Creatinine 1.02, Estimat Glomerular Filtration Rate 55, BUN/Creatinine Ratio 40, Glucose Level 211H, Calcium Level 8.4L, Phosphorus Level 3.9, Magnesium Level 2.7H 10/16/20 11:27: Glucometer 267H 10/16/20 15:38: Glucometer 232H 10/16/20 19:14: Glucometer 257H 10/17/20 02:50: White Blood Count 14.3H, Red Blood Count 4.02, Hemoglobin 11.8, Hematocrit 37, Mean Corpuscular Volume 92, Mean Corpuscular Hemoglobin 29, Mean Corpuscular Hemoglobin Concent 32, Red Cell Distribution Width 13.6, Platelet Count 317, Mean Platelet Volume 10.6, Immature Granulocyte % (Auto) 4, Neutrophils (%) (Auto) 85H, Lymphocytes (%) (Auto) 6L, Monocytes (%) (Auto) 4, Eosinophils (%) (Auto) 0, Basophils (%) (Auto) 0, Neutrophils # (Auto) 12.1H, Lymphocytes # (Auto) 0.9L, Monocytes # (Auto) 0.6, Eosinophils # (Auto) 0.0, Basophils # (Auto) 0.0, Immature Granulocyte # (Auto) 0.6H, Sodium Level 132L, Potassium Level 4.9, Chloride Level 98, Carbon Dioxide Level 24, Anion Gap 10, Blood Urea Nitrogen 41H, Creatinine 0.95, Estimat Glomerular Filtration Rate 60, BUN/Creatinine Ratio 43, Glucose Level 253H, Calcium Level 8.2L, Magnesium Level 2.5H 10/17/20 10:54: Glucometer 240H 10/17/20 15:12: Glucometer 294H 10/17/20 19:24: Glucometer 286H 10/18/20 03:30: Sodium Level 130L, Potassium Level 5.6H, Chloride Level 95L, Carbon Dioxide Level 25, Anion Gap 10, Blood Urea Nitrogen 40H, Creatinine 0.96, Estimat Glomerular Filtration Rate 59, BUN/Creatinine Ratio 42, Glucose Level 268H, Calcium Level 8.2L, Magnesium Level 2.4 10/18/20 10:36: Glucometer 216H 10/18/20 15:12: Glucometer 295H 10/18/20 20:23: Glucometer 213H 10/19/20 04:10: White Blood Count 13.9H, Red Blood Count 3.95, Hemoglobin 11.5, Hematocrit 36, Mean Corpuscular Volume 90, Mean Corpuscular Hemoglobin 29, Mean Corpuscular Hemoglobin Concent 32, Red Cell Distribution Width 13.8, Platelet Count 276, Mean Platelet Volume 11.1, Sodium Level 133L, Potassium Level 4.5, Chloride Level 97L, Carbon Dioxide Level 25, Anion Gap 11, Blood Urea Nitrogen 35H, Creatinine 0.89, Estimat Glomerular Filtration Rate > 60, BUN/Creatinine Ratio 39, Glucose Level 228H, Calcium Level 8.3L, Corrected Calcium 9.1, Magnesium Level 2.2, Total Bilirubin 0.7, Aspartate Amino Transf (AST/SGOT) 9, Alanine Aminotransferase (ALT/SGPT) 23, Alkaline Phosphatase 56, Total Protein 5.1L, Albumin 3.0L 10/19/20 11:35: Glucometer 182H 10/19/20 15:34: Glucometer 214H 10/19/20 20:55: Glucometer 219H 10/20/20 04:20: Sodium Level 133L, Potassium Level 4.1, Chloride Level 96L, Carbon Dioxide Level 25, Anion Gap 12, Blood Urea Nitrogen 33H, Creatinine 0.96, Estimat Glomerular Filtration Rate 59, BUN/Creatinine Ratio 34, Glucose Level 225H, Calcium Level 8.2L, Phosphorus Level 4.1, Magnesium Level 2.2 10/20/20 11:07: Glucometer 266H 10/20/20 15:29: Glucometer 269H 10/20/20 20:05: Glucometer 271H 10/21/20 04:00: White Blood Count 12.6H, Red Blood Count 4.08, Hemoglobin 12.0, Hematocrit 37, Mean Corpuscular Volume 92, Mean Corpuscular Hemoglobin 29, Mean Corpuscular Hemoglobin Concent 32, Red Cell Distribution Width 14.1, Platelet Count 262, Mean Platelet Volume 11.2, Immature Granulocyte % (Auto) 4, Neutrophils (%) (Auto) 70, Lymphocytes (%) (Auto) 18, Monocytes (%) (Auto) 8, Eosinophils (%) (Auto) 0, Basophils (%) (Auto) 0, Neutrophils # (Auto) 8.8H, Lymphocytes # (Auto) 2.3, Monocytes # (Auto) 1.0, Eosinophils # (Auto) 0.0, Basophils # (Auto) 0.0, Immature Granulocyte # (Auto) 0.5H, Sodium Level 137, Potassium Level 3.3L, Chloride Level 98, Carbon Dioxide Level 27, Anion Gap 12, Blood Urea Nitrogen 30H, Creatinine 0.86, Estimat Glomerular Filtration Rate > 60, BUN/Creatinine Ratio 35, Glucose Level 120H, Calcium Level 8.5 10/21/20 11:17: Glucometer 213H 10/21/20 15:40: Glucometer 116H 10/21/20 20:19: Glucometer 265H 10/22/20 05:40: Glucometer 132H 10/22/20 11:11: Glucometer 191H 10/22/20 15:55: Glucometer 162H 10/22/20 20:30: Glucometer 194H 10/23/20 05:30: Glucometer 160H 10/23/20 06:15: White Blood Count 8.8, Red Blood Count 3.93, Hemoglobin 11.6, Hematocrit 37, Mean Corpuscular Volume 93, Mean Corpuscular Hemoglobin 30, Mean Corpuscular Hemoglobin Concent 32, Red Cell Distribution Width 14.4, Platelet Count 230, Mean Platelet Volume 10.7, Immature Granulocyte % (Auto) 2, Neutrophils (%) (Auto) 72, Lymphocytes (%) (Auto) 17, Monocytes (%) (Auto) 8, Eosinophils (%) (Auto) 1, Basophils (%) (Auto) 0, Neutrophils # (Auto) 6.3, Lymphocytes # (Auto) 1.5, Monocytes # (Auto) 0.7, Eosinophils # (Auto) 0.1, Basophils # (Auto) 0.0, Immature Granulocyte # (Auto) 0.2H, Sodium Level 138, Potassium Level 3.5L, Chloride Level 98, Carbon Dioxide Level 30, Anion Gap 10, Blood Urea Nitrogen 22H, Creatinine 0.81, Estimat Glomerular Filtration Rate > 60, BUN/Creatinine Ra sven 27, Glucose Level 152H, Calcium Level 8.4L, Corrected Calcium 9.1, Total Bilirubin 0.8, Aspartate Amino Transf (AST/SGOT) 9, Alanine Aminotransferase (ALT/SGPT) 33, Alkaline Phosphatase 61, Total Protein 5.3L, Albumin 3.1L Microbiology 10/05/20 Blood Culture - Final, Complete No growth Pending Labs Microbiology Date/Time Source Procedure Growth Status 10/05/20 21:18 Peripheral Right Wrist Blood Culture - Final No growth Complete 10/05/20 21:12 Peripheral Lt Hand Blood Culture - Final No growth Complete Laboratory Tests 10/05/20 21:12: White Blood Count 4.5, Red Blood Count 4.47, Hemoglobin 13.3, Hematocrit 42, Mean Corpuscular Volume 93, Mean Corpuscular Hemoglobin 30, Mean Corpuscular Hem oglobin Concent 32, Red Cell Distribution Width 14.4, Platelet Count 230, Mean Platelet Volume 10.1, Immature Granulocyte % (Auto) 1, Neutrophils (%) (Auto) 79, Lymphocytes (%) (Auto) 14, Monocytes (%) (Auto) 6, Eosinophils (%) (Auto) 0, Basophils (%) (Auto) 0, Neutrophils # (Auto) 3.6, Lymphocytes # (Auto) 0.6, Monocytes # (Auto) 0.3, Eosinophils # (Auto) 0.0, Basophils # (Auto) 0.0, Immature Granulocyte # (Auto) 0.0, Prothrombin Time 12.6, INR Comment 0.9, Activated Partial Thromboplast Time 26, D-Dimer 1.21, Sodium Level 136, Potassium Level 4.6, Chloride Level 100, Carbon Dioxide Level 23, Anion Gap 13, Blood Urea Nitrogen 14, Creatinine 0.85, Estimat Glomerular Filtration Rate > 60, BUN/Creatinine Ratio 16, Glucose Level 176, Lactic Acid Level 1.01, Calcium Level 8.2, Corrected Calcium 8.6, Total Bilirubin 0.5, Aspartate Amino Transf (AST/SGOT) 32, Alanine Aminotransferase (ALT/SGPT) 23, Alkaline Phosphatase 77, Lactate Dehydrogenase 473, C-Reactive Protein High Sensitivity 15.75, Total Protein 7.4, Albumin 3.5, Procalcitonin 0.10 10/06/20 03:04: White Blood Count 4.3, Red Blood Count 4.36, Hemoglobin 13.0, Hematocrit 42, Mean Corpuscular Volume 97, Mean Corpuscular Hemoglobin 30, Mean Corpuscular Hemoglobin Concent 31, Red Cell Distribution Width 14.5, Platelet Count 205, Mean Platelet Volume 9.9, Immature Granulocyte % (Auto) 1, Neutrophils (%) (Auto) 84, Lymphocytes (%) (Auto) 11, Monocytes (%) (Auto) 4, Eosinophils (%) (Auto) 0, Basophils (%) (Auto) 0, Neutrophils # (Auto) 3.7, Lymphocytes # (Auto) 0.5, Monocytes # (Auto) 0.2, Eosinophils # (Auto) 0.0, Basophils # (Auto) 0.0, Immature Granulocyte # (Auto) 0.1, Sodium Level 139, Potassium Level 4.4, Chloride Level 102, Carbon Dioxide Level 24, Anion Gap 13, Blood Urea Nitrogen 14, Creatinine 0.97, Estimat Glomerular Filtration Rate 58, BUN/Creatinine Ratio 14, Glucose Level 228, Calcium Level 8.3, Corrected Calcium 8.7, Total Bilirubin 0.5, Aspartate Amino Transf (AST/SGOT) 22, Alanine Aminotransferase (ALT/SGPT) 21, Alkaline Phosphatase 79, Total Protein 7.0, Albumin 3.5, Phosphorus Level 3.6, Magnesium Level 2.0 10/06/20 15:00: Blood Gas Puncture Site LEFT RADIAL, Blood Gas Patient Temperature 95.7, Arterial Blood pH 7.42, Arterial Blood Partial Pressure CO2 39, Arterial Blood Partial Pressure O2 64, Arterial Blood HCO3 26, Arterial Blood Total CO2 26.8, Arterial Blood Oxygen Saturation 95, Arterial Blood Base Excess 1.3, Carlos Test POSITIVE, Blood Gas Ventilator Setting NO, Blood Gas Inspired Oxygen 2 L 10/07/20 02:55: White Blood Count 7.6, Red Blood Count 3.93, Hemoglobin 11.7, Hematocrit 38, Mean Corpuscular Volume 97, Mean Corpuscular Hemoglobin 30, Mean Corpuscular Hemoglobin Concent 31, Red Cell Distribution Width 13.9, Platelet Count 212, Mean Platelet Volume 9.8, Immature Granulocyte % (Auto) 1, Neutrophils (%) (Auto) 89, Lymphocytes (%) (Auto) 7, Monocytes (%) (Auto) 3, Eosinophils (%) (Auto) 0, Basophils (%) (Auto) 0, Neutrophils # (Auto) 6.8, Lymphocytes # (Auto) 0.5, Monocytes # (Auto) 0.2, Eosinophils # (Auto) 0.0, Basophils # (Auto) 0.0, Immature Granulocyte # (Auto) 0.1, Sodium Level 140, Potassium Level 4.1, Chloride Level 106, Carbon Dioxide Level 24, Anion Gap 10, Blood Urea Nitrogen 15, Creatinine 0.78, Estimat Glomerular Filtration Rate > 60, BUN/Creatinine Ratio 19, Glucose Level 215, Calcium Level 8.2, Phosphorus Level 2.3, Magnesium Level 2.2 10/07/20 12:01: Glucometer 187 10/07/20 14:11: Vancomycin Level Trough 12.1 10/07/20 15:43: Glucometer 223 10/07/20 19:47: Glucometer 254 10/08/20 03:35: White Blood Count 11.5, Red Blood Count 3.71, Hemoglobin 11.1, Hematocrit 35, Mean Corpuscular Volume 95, Mean Corpuscular Hemoglobin 30, Mean Corpuscular Hemoglobin Concent 31, Red Cell Distribution Width 14.1, Platelet Count 218, Mean Platelet Volume 9.6, Immature Granulocyte % (Auto) 1, Neutrophils (%) (Auto) 92, Lymphocytes (%) (Auto) 4, Monocytes (%) (Auto) 3, Eosinophils (%) (Auto) 0, Basophils (%) (Auto) 0, Neutrophils # (Auto) 10.6, Lymphocytes # (Auto) 0.4, Monocytes # (Auto) 0.3, Eosinophils # (Auto) 0.0, Basophils # (Auto) 0.0, Immature Granulocyte # (Auto) 0.1, Neutrophils % (Manual) 86, Lymphocytes % (Manual) 4, Monocytes % (Manual) 3, Basophils % (Manual) 1, Band Neutrophils 5, Atypical Lymphocytes 1, Basophilic Stippling SLIGHT, Microcytosis MODERATE, Sodium Level 142, Potassium Level 4.3, Chloride Level 106, Carbon Dioxide Level 26, Anion Gap 10, Blood Urea Nitrogen 17, Creatinine 0.76, Estimat Glomerular Filtration Rate > 60, BUN/Creatinine Ratio 22, Glucose Level 216, Calcium Level 8.3, Phosphorus Level 3.8, Magnesium Level 2.0, B-Type Natriuretic Peptide 67.0 10/08/20 10:40: Blood Gas Puncture Site L RAD, Blood Gas Patient Temperature 36.1, Arterial Blood pH 7.42, Arterial Blood Partial Pressure CO2 46, Arterial Blood Partial Pressure O2 61, Arterial Blood HCO3 29, Arterial Blood Total CO2 30.8, Arterial Blood Oxygen Saturation 91, Arterial Blood Base Excess 4.8, Carlos Test YES-POS, Blood Gas Ventilator Setting NO, Blood Gas Inspired Oxygen 40 10/08/20 11:41: Glucometer 264 10/08/20 15:11: Glucometer 162 10/08/20 21:04: Glucometer 240 10/09/20 05:12: Sodium Level 141, Potassium Level 4.1, Chloride Level 100, Carbon Dioxide Level 29, Anion Gap 12, Blood Urea Nitrogen 20, Creatinine 0.88, Estimat Glomerular Filtration Rate > 60, BUN/Creatinine Ratio 23, Glucose Level 229, Calcium Level 8.6, Phosphorus Level 4.2, Magnesium Level 2.3 10/09/20 05:15: White Blood Count 10.5, Red Blood Count 3.80, Hemoglobin 11.3, Hematocrit 36, Mean Corpuscular Volume 95, Mean Corpuscular Hemoglobin 30, Mean Corpuscular Hemoglobin Concent 32, Red Cell Distribution Width 14.1, Platelet Count 225, Mean Platelet Volume 9.8, Immature Granulocyte % (Auto) 1, Neutrophils (%) (Auto) 93, Lymphocytes (%) (Auto) 3, Monocytes (%) (Auto) 3, Eosinophils (%) (Auto) 0, Basophils (%) (Auto) 0, Neutrophils # (Auto) 9.8, Lymphocytes # (Auto) 0.3, Monocytes # (Auto) 0.3, Eosinophils # (Auto) 0.0, Basophils # (Auto) 0.0, Immature Granulocyte # (Auto) 0.1 10/09/20 12:35: Glucometer 237 10/09/20 15:50: Glucometer 236 10/09/20 20:39: Glucometer 229 10/10/20 02:45: White Blood Count 10.8, Red Blood Count 3.92, Hemoglobin 11.6, Hematocrit 37, Mean Corpuscular Volume 94, Mean Corpuscular Hemoglobin 30, Mean Corpuscular Hemoglobin Concent 31, Red Cell Distribution Width 14.2, Platelet Count 225, Mean Platelet Volume 9.5, Immature Granulocyte % (Auto) 2, Neutrophils (%) (Auto) 93, Lymphocytes (%) (Auto) 3, Monocytes (%) (Auto) 2, Eosinophils (%) (Auto) 0, Basophils (%) (Auto) 0, Neutrophils # (Auto) 10.0, Lymphocytes # (Auto) 0.4, Monocytes # (Auto) 0.2, Eosinophils # (Auto) 0.0, Basophils # (Auto) 0.0, Immature Granulocyte # (Auto) 0.2, Sodium Level 138, Potassium Level 4.4, Chloride Level 99, Carbon Dioxide Level 28, Anion Gap 11, Blood Urea Nitrogen 23, Creatinine 0.83, Estimat Glomerular Filtration Rate > 60, BUN/Creatinine Ratio 28, Glucose Level 215, Calcium Level 8.7, Phosphorus Level 3.2, Magnesium Level 2.4 10/10/20 11:50: Glucometer 216 10/10/20 16:12: Glucometer 244 10/10/20 20:53: Glucometer 226 10/11/20 03:30: White Blood Count 9.2, Red Blood Count 3.99, Hemoglobin 11.7, Hematocrit 37, Mean Corpuscular Volume 94, Mean Corpuscular Hemoglobin 29, Mean Corpuscular Hemoglobin Concent 31, Red Cell Distribution Width 13.9, Platelet Count 252, Mean Platelet Volume 9.6, Immature Granulocyte % (Auto) 2, Neutrophils (%) (Auto) 91, Lymphocytes (%) (Auto) 5, Monocytes (%) (Auto) 2, Eosinophils (%) (Auto) 0, Basophils (%) (Auto) 0, Neutrophils # (Auto) 8.3, Lymphocytes # (Auto) 0.4, Monocytes # (Auto) 0.2, Eosinophils # (Auto) 0.0, Basophils # (Auto) 0.0, Immature Granulocyte # (Auto) 0.2, Sodium Level 134, Potassium Level 4.6, Chlor davidson Level 97, Carbon Dioxide Level 28, Anion Gap 9, Blood Urea Nitrogen 25, Creatinine 0.80, Estimat Glomerular Filtration Rate > 60, BUN/Creatinine Ratio 31, Glucose Level 222, Calcium Level 8.7, Phosphorus Level 4.0, Magnesium Level 2.3, Smear Scan YES 10/11/20 10:17: Glucometer 278 10/11/20 15:36: Glucometer 229 10/11/20 21:22: Glucometer 250 10/12/20 02:30: White Blood Count 8.4, Red Blood Count 4.09, Hemoglobin 12.0, Hematocrit 38, Mean Corpuscular Volume 93, Mean Corpuscular Hemoglobin 29, Mean Corpuscular Hemoglobin Concent 32, Red Cell Distribution Width 13.7, Platelet Count 303, Mean Platelet Volume 10.2, Immature Granulocyte % (Auto) 4, Neutrophils (%) (Auto) 88, Lymphocytes (%) (Auto) 6, Monocytes (%) (Auto) 2, Eosinophils (%) (Auto) 0, Basophils (%) (Auto) 0, Neutrophils # (Auto) 7.5, Lymphocytes # (Auto) 0.5, Monocytes # (Auto) 0.2, Eosinophils # (Auto) 0.0, Basophils # (Auto) 0.0, Immature Granulocyte # (Auto) 0.3, Sodium Level 134, Potassium Level 5.2, Chloride Level 97, Carbon Dioxide Level 25, Anion Gap 12, Blood Urea Nitrogen 25, Creatinine 0.78, Estimat Glomerular Filtration Rate > 60, BUN/Creatinine Ratio 32, Glucose Level 241, Calcium Level 8.6, Phosphorus Level 4.3, Magnesium Level 2.4 10/12/20 10:16: Glucometer 322 10/12/20 16:16: Glucometer 273 10/12/20 20:01: Glucometer 258 10/13/20 03:30: White Blood Count 9.4, Red Blood Count 4.28, Hemoglobin 12.4, Hematocrit 39, Mean Corpuscular Volume 92, Mean Corpuscular Hemoglobin 29, Mean Corpuscular Hemoglobin Concent 32, Red Cell Distribution Width 13.7, Platelet Count 331, Mean Platelet Volume 9.9, Immature Granulocyte % (Auto) 5, Neutrophils (%) (Auto) 86, Lymphocytes (%) (Auto) 5, Monocytes (%) (Auto) 4, Eosinophils (%) (Auto) 0, Basophils (%) (Auto) 0, Neutrophils # (Auto) 8.1, Lymphocytes # (Auto) 0.5, Monocytes # (Auto) 0.4, Eosinophils # (Auto) 0.0, Basophils # (Auto) 0.0, Immature Granulocyte # (Auto) 0.4, Sodium Level 132, Potassium Level 4.6, Chloride Level 96, Carbon Dioxide Level 27, Anion Gap 9, Blood Urea Nitrogen 27, Creatinine 0.80, Estimat Glomerular Filtration Rate > 60, BUN/Creatinine Ratio 34, Glucose Level 252, Calcium Level 8.7, Phosphorus Level 3.8, Magnesium Level 2.4 10/13/20 11:39: Glucometer 230 10/13/20 15:36: Glucometer 270 10/13/20 20:27: Glucometer 267 10/14/20 03:01: White Blood Count 11.9, Red Blood Count 4.27, Hemoglobin 12.5, Hematocrit 39, Mean Corpuscular Volume 92, Mean Corpuscular Hemoglobin 29, Mean Corpuscular Hemoglobin Concent 32, Red Cell Distribution Width 13.6, Platelet Count 366, Mean Platelet Volume 9.9, Immature Granulocyte % (Auto) 5, Neutrophils (%) (Auto) 86, Lymphocytes (%) (Auto) 4, Monocytes (%) (Auto) 4, Eosinophils (%) (Auto) 0, Basophils (%) (Auto) 0, Neutrophils # (Auto) 10.2, Lymphocytes # (Auto) 0.5, Monocytes # (Auto) 0.5, Eosinophils # (Auto) 0.0, Basophils # (Auto) 0.0, Immature Granulocyte # (Auto) 0.6, Sodium Level 134, Potassium Level 4.7, Chloride Level 97, Carbon Dioxide Level 27, Anion Gap 10, Blood Urea Nitrogen 29, Creatinine 0.84, Estimat Glomerular Filtration Rate > 60, BUN/Creatinine Ratio 35, Glucose Level 234, Calcium Level 8.5, Phosphorus Level 3.8, Magnesium Level 2.5, B-Type Natriuretic Peptide 20.8 10/14/20 11:05: Glucometer 276 10/14/20 11:30: D-Dimer 0.52, Procalcitonin 0.03 10/14/20 15:47: Glucometer 312 10/14/20 21:06: Glucometer 303 10/15/20 04:30: White Blood Count 15.1, Red Blood Count 4.20, Hemoglobin 12.4, Hematocrit 39, Mean Corpuscular Volume 93, Mean Corpuscular Hemoglobin 30, Mean Corpuscular Hemoglobin Concent 32, Red Cell Distribution Width 13.8, Platelet Count 364, Mean Platelet Volume 10.9, Immature Granulocyte % (Auto) 4, Neutrophils (%) (Auto) 88, Lymphocytes (%) (Auto) 4, Monocytes (%) (Auto) 4, Eosinophils (%) (Auto) 0, Basophils (%) (Auto) 0, Neutrophils # (Auto) 13.3, Lymphocytes # (Auto) 0.6, Monocytes # (Auto) 0.6, Eosinophils # (Auto) 0.0, Basophils # (Auto) 0.0, Immature Granulocyte # (Auto) 0.6, Neutrophils % (Manual) 91, Lymphocytes % (Manual) 5, Monocytes % (Manual) 2, Band Neutrophils 2, Blood Morphology Comment NORMAL, Sodium Level 134, Potassium Level 4.9, Chloride Level 97, Carbon Dioxide Level 26, Anion Gap 11, Blood Urea Nitrogen 38, Creatinine 0.93, Estimat Glomerular Filtration Rate > 60, BUN/Creatinine Ratio 41, Glucose Level 241, Calcium Level 8.8, Phosphorus Level 4.2, Magnesium Level 2.7 10/15/20 11:34: Glucometer 266 10/15/20 17:24: Glucometer 281 10/15/20 20:49: Glucometer 318 10/16/20 03:30: White Blood Count 17.6, Red Blood Count 4.07, Hemoglobin 12.0, Hematocrit 37, Mean Corpuscular Volume 92, Mean Corpuscular Hemoglobin 30, Mean Corpuscular Hemoglobin Concent 32, Red Cell Distribution Width 13.6, Platelet Count 338, Mean Platelet Volume 10.2, Immature Granulocyte % (Auto) 5, Neutrophils (%) (Auto) 86, Lymphocytes (%) (Auto) 5, Monocytes (%) (Auto) 4, Eosinophils (%) (Auto) 0, Basophils (%) (Auto) 0, Neutrophils # (Auto) 15.2, Lymphocytes # (Auto) 0.8, Monocytes # (Auto) 0.7, Eosinophils # (Auto) 0.0, Basophils # (Auto) 0.1, Immature Granulocyte # (Auto) 0.9, Sodium Level 130, Potassium Level 4.7, Chloride Level 96, Carbon Dioxide Level 24, Anion Gap 10, Blood Urea Nitrogen 41, Creatinine 1.02, Estimat Glomerular Filtration Rate 55, BUN/Creatinine Ratio 40, Glucose Level 211, Calcium Level 8.4, Phosphorus Level 3.9, Magnesium Level 2.7 10/16/20 11:27: Glucometer 267 10/16/20 15:38: Glucometer 232 10/16/20 19:14: Glucometer 257 10/17/20 02:50: White Blood Count 14.3, Red Blood Count 4.02, Hemoglobin 11.8, Hematocrit 37, Mean Corpuscular Volume 92, Mean Corpuscular Hemoglobin 29, Mean Corpuscular Hemoglobin Concent 32, Red Cell Distribution Width 13.6, Platelet Count 317, Mean Platelet Volume 10.6, Immature Granulocyte % (Auto) 4, Neutrophils (%) (Auto) 85, Lymphocytes (%) (Auto) 6, Monocytes (%) (Auto) 4, Eosinophils (%) (Auto) 0, Basophils (%) (Auto) 0, Neutrophils # (Auto) 12.1, Lymphocytes # (Auto) 0.9, Monocytes # (Auto) 0.6, Eosinophils # (Auto) 0.0, Basophils # (Auto) 0.0, Immature Granulocyte # (Auto) 0.6, Sodium Level 132, Potassium Level 4.9, Chloride Level 98, Carbon Dioxide Level 24, Anion Gap 10, Blood Urea Nitrogen 41, Creatinine 0.95, Estimat Glomerular Filtration Rate 60, BUN/Creatinine Ratio 43, Glucose Level 253, Calcium Level 8.2, Magnesium Level 2.5 10/17/20 10:54: Glucometer 240 10/17/20 15:12: Glucometer 294 10/17/20 19:24: Glucometer 286 10/18/20 03:30: Sodium Level 130, Potassium Level 5.6, Chloride Level 95, Carbon Dioxide Level 25, Anion Gap 10, Blood Urea Nitrogen 40, Creatinine 0.96, Estimat Glomerular Filtration Rate 59, BUN/Creatinine Ratio 42, Glucose Level 268, Calcium Level 8.2, Magnesium Level 2.4 10/18/20 10:36: Glucometer 216 10/18/20 15:12: Glucometer 295 10/18/20 20:23: Glucometer 213 10/19/20 04:10: White Blood Count 13.9, Red Blood Count 3.95, Hemoglobin 11.5, Hematocrit 36, Mean Corpuscular Volume 90, Mean Corpuscular Hemoglobin 29, Mean Corpuscular Hemoglobin Concent 32, Red Cell Distribution Width 13.8, Platelet Count 276, Mean Platelet Volume 11.1, Sodium Level 133, Potassium Level 4.5, Chloride Level 97, Carbon Dioxide Level 25, Anion Gap 11, Blood Urea Nitrogen 35, Creatinine 0.89, Estimat Glomerular Filtration Rate > 60, BUN/Creatinine Ratio 39, Glucose Level 228, Calcium Level 8.3, Corrected Calcium 9.1, Magnesium Level 2.2, Total Bilirubin 0.7, Aspartate Amino Transf (AST/SGOT) 9, Alanine Aminotransferase (ALT/SGPT) 23, Alkaline Phosphatase 56, Total Protein 5.1, Albumin 3.0 10/19/20 11:35: Glucometer 182 10/19/20 15:34: Glucometer 214 10/19/20 20:55: Glucometer 219 10/20/20 04:20: Sodium Level 133, Potassium Level 4.1, Chloride Level 96, Carbon Dioxide Level 25, Anion Gap 12, Blood Urea Nitrogen 33, Creatinine 0.96, Estimat Glomerular Filtration Rate 59, BUN/Creatinine Ratio 34, Glucose Level 225, Calcium Level 8.2, Phosphorus Level 4.1, Magnesium Level 2.2 10/20/20 11:07: Glucometer 266 10/20/20 15:29: Glucometer 269 10/20/20 20:05: Glucometer 271 10/21/20 04:00: White Blood Count 12.6, Red Blood Count 4.08, Hemoglobin 12.0, Hematocrit 37, Mean Corpuscular Volume 92, Mean Corpuscular Hemoglobin 29, Mean Corpuscular Hemoglobin Concent 32, Red Cell Distribution Width 14.1, Platelet Count 262, Mean Platelet Volume 11.2, Immature Granulocyte % (Auto) 4, Neutrophils (%) (Auto) 70, Lymphocytes (%) (Auto) 18, Monocytes (%) (Auto) 8, Eosinophils (%) (Auto) 0, Basophils (%) (Auto) 0, Neutrophils # (Auto) 8.8, Lymphocytes # (Auto) 2.3, Monocytes # (Auto) 1.0, Eosinophils # (Auto) 0.0, Basophils # (Auto) 0.0, I mmature Granulocyte # (Auto) 0.5, Sodium Level 137, Potassium Level 3.3, Chloride Level 98, Carbon Dioxide Level 27, Anion Gap 12, Blood Urea Nitrogen 30, Creatinine 0.86, Estimat Glomerular Filtration Rate > 60, BUN/Creatinine Ratio 35, Glucose Level 120, Calcium Level 8.5 10/21/20 11:17: Glucometer 213 10/21/20 15:40: Glucometer 116 10/21/20 20:19: Glucometer 265 10/22/20 05:40: Glucometer 132 10/22/20 11:11: Glucometer 191 10/22/20 15:55: Glucometer 162 10/22/20 20:30: Glucometer 194 10/23/20 05:30: Glucometer 160 10/23/20 06:15: White Blood Count 8.8, Red Blood Count 3.93, Hemoglobin 11.6, Hematocrit 37, Mean Corpuscular Volume 93, Mean Corpuscular Hemoglobin 30, Mean Corpuscular Hemoglobin Concent 32, Red Cell Distribution Width 14.4, Platelet Count 230, Mean Platelet Volume 10.7, Immature Granulocyte % (Auto) 2, Neutrophils (%) (Auto) 72, Lymphocytes (%) (Auto) 17, Monocytes (%) (Auto) 8, Eosinophils (%) (Auto) 1, Basophils (%) (Auto) 0, Neutrophils # (Auto) 6.3, Lymphocytes # (Auto) 1.5, Monocytes # (Auto) 0.7, Eosinophils # (Auto) 0.1, Basophils # (Auto) 0.0, Immature Granulocyte # (Auto) 0.2, Sodium Level 138, Potassium Level 3.5, Chloride Level 98, Carbon Dioxide Level 30, Anion Gap 10, Blood Urea Nitrogen 22, Creatinine 0.81, Estimat Glomerular Filtration Rate > 60, BUN/Creatinine Ratio 27, Glucose Level 152, Calcium Level 8.4, Corrected Calcium 9.1, Total Bilirubin 0.8, Aspartate Amino Transf (AST/SGOT) 9, Alanine Aminotransferase (ALT/SGPT) 33, Alkaline Phosphatase 61, Total Protein 5.3, Albumin 3.1 Discharge Home Medications: Active Scripts Active Reported All Day Allergy (Cetirizine HCl) 10 Mg Tablet 10 Mg PO DAILY Melatonin 5 Mg Tablet 5 Mg PO HS PRN Losartan Potassium 50 Mg Tablet 50 Mg PO DAILY Citalopram HBr (Citalopram Hydrobromide) 20 Mg Tablet 20 Mg PO HS Ondansetron Odt (Ondansetron) 8 Mg Tab.rapdis 8 Mg PO Q8H PRN K-Tab ER (Potassium Chloride) 10 Meq Tablet.er 10 Meq PO DAILY Prednisone 10 Mg Tab 10 Mg PO DAILY Calcium 500 + Vit D 200 Caplet (Calcium Carbonate/Vitamin D3) 1 Each Tablet 1 Each PO BID Pantoprazole Sodium 40 Mg Tablet.dr 40 Mg PO DAILY Proair Hfa (Albuterol Sulfate) 1 Puff Puff 2 Puff INH Q4H PRN Atorvastatin Calcium 20 Mg Tablet 20 Mg PO DAILY Triamterene-Hctz 37.5-25 mg Cp (Triamterene/Hydrochlorothiazid) 1 Each Capsule 1 Cap PO DAILY 04-03-2020 #100/100 DAY SUPPLY Spiriva Respimat 1.25MCG/ACTUATION (Tiotropium [place]) 4 Gm Mist.inhal 2 Puff INH DAILY Breo Ellipta 200-25 Mcg INH (Fluticasone/Vilanterol) 1 Each Blst.w.dev 1 Puff INH DAILY Montelukast Sodium 10 Mg Tablet 10 Mg PO DAILY Clonidine HCl 0.1 Mg Tablet 0.1 Mg PO BID Levothyroxine Sodium 50 Mcg Tablet 50 Mcg PO DAILY Instructions to patient/family Please see electronic discharge instructions given to patient. Diagnosis/Problems Diagnosis/Problems (1) COVID-19 Status: Acute (2) Asthma exacerbation Status: Acute Qualifiers: Qualified Codes: J45.901 - Unspecified asthma with (acute) exacerbation (3) Pulmonary embolism Status: Acute Qualifiers: Qualified Codes: I26.99 - Other pulmonary embolism without acute cor pulmonale (4) Hypoxia Status: Acute (5) Myasthenia gravis (6) Hypothyroidism Status: Chronic (7) Hypertension Status: Chronic (8) Diabetes mellitus Status: Chronic (9) Rheumatoid arthritis Status: Chronic Clinical Quality Measures DVT/VTE Risk/Contraindication: Risk Factor Score Per Nursin RFS Level Per Nursing on Admit: 4+=Very High FABIENNE ZAMORA DO Oct 23, 2020 09:00
[2020-10-23] MEDS: PANTOPRAZOLE 40 MG (PROTONIX) TAB PO SCH (09:10)
[2020-10-23] MEDS: TRIAMTERENE/HCTZ 75-50 (MAXZIDE,DYAZIDE) TABLET PO SCH (09:10)
[2020-10-23] MEDS: MONTELUKAST 10 MG (SINGULAIR) TAB PO SCH (09:10)
[2020-10-23] MEDS: CALCIUM CARB + VIT D 600 MG (CALCARB + D) TAB PO SCH (09:10)
[2020-10-23] MEDS: LEVOTHYROXINE 50 MCG (LEVOTHROID) TAB PO SCH (09:10)
[2020-10-23] MEDS: LOSARTAN 50 MG (COZAAR) TAB PO SCH (09:10)
[2020-10-23] MEDS: LORATADINE (CLARITIN) 10 MG TAB PO SCH (09:10)
[2020-10-23] MEDS: APIXABAN 5 MG (ELIQUIS) TABLET PO SCH (09:11)
[2020-10-23] MEDS: NYSTATIN ORAL SUSP 5 ML UDC PO SCH (09:11)
--- NOTE | 2020-10-23 09:33 | Diagnostic Imaging Report ---
PA and lateral chest at 840 hours. INDICATION: Pneumonia. FINDINGS: There is a better inspiratory effort on this exam than on the prior study of 10/15/2020. Allowing for this technical factor, the heart is stable. There are still diffuse alveolar/interstitial infiltrates involving both lungs. If anything there does seem be somewhat greater involvement of the lungs by pneumonia/atelectasis than on the prior exam. There is still no significant pleural effusion identified. The mediastinum is not widened. The osseous structures are intact. IMPRESSION: Appearance of the chest has worsened somewhat since the prior study as there does seem to be greater involvement of both lungs by pneumonia/atelectasis. A follow-up study would be recommended for continued evaluation. Dictated by: Dictated on workstation # [id number]
[2020-10-23] MEDS: MICONAZOLE 2% POWDER (DESENEX AF) 90 GM TOP SCH (10:03)
[2020-10-23] MEDS: NYSTATIN CREAM (MYCOSTATIN) 30 GM TUBE TP SCH (10:03)
[2020-10-23 10:15] VITALS: BP 156/81
--- NOTE | 2020-10-23 10:15 | NUR ---
TRANSFERED TO REHAB PER W/C BY PT, PORTABLE O2 ON PER HF TUBING AT 7 LETERS, PATIENT VERBALIZED UNDERSTANDING OF TRANSFER, REPORT GIVEN TO NURSE ON REHAB
[2020-10-24] MEDS ORDERED: APIXABAN 5 MG (ELIQUIS) TABLET PO SCH (09:00)
== END 2020-10-23 10:15 | DRG 177 ==
LOC: EDUNIT# 20:21 → ER 20:23 → ICU 10-06 00:11 → CSD 10-15 → 4TH 10-20 18:12
PROVIDERS: ADMIT Internal Medicine; ATTEND Internal Medicine
DX: U07.1 COVID-19 (principal); J12.89 Other viral pneumonia; I26.99 Other pulmonary embolism without acute cor pulmonale; J96.01 Acute respiratory failure with hypoxia; J44.1 Chronic obstructive pulmonary disease with (acute) exacerbation; Z68.43 Body mass index [BMI] 50.0-59.9, adult; G70.00 Myasthenia gravis without (acute) exacerbation; E66.01 Morbid (severe) obesity due to excess calories; G47.33 Obstructive sleep apnea (adult) (pediatric); E11.65 Type 2 diabetes mellitus with hyperglycemia; E11.40 Type 2 diabetes mellitus with diabetic neuropathy, unspecified; I10 Essential (primary) hypertension; E87.5 Hyperkalemia; E78.5 Hyperlipidemia, unspecified; E78.00 Pure hypercholesterolemia, unspecified; R31.9 Hematuria, unspecified; R60.9 Edema, unspecified; M06.9 Rheumatoid arthritis, unspecified; M19.91 Primary osteoarthritis, unspecified site; E03.9 Hypothyroidism, unspecified; T38.0X5A Adverse effect of glucocorticoids and synthetic analogues, initial encounter; Z86.718 Personal history of other venous thrombosis and embolism; Z73.0 Burn-out
CPT/HCPCS: 36415; 71045; 71046; 71275; 76937; 80048; 80053; 80202; 82805; 82962; 83605; 83615; 83735; 83880; 84100; 84145; 85007; 85025; 85027; 85379; 85610; 85730; 86141; 87040; 93005; 93041; 94010; 94640; 94660; 94664; 94760; 96361; 96372; 96374; 96375

== ENCOUNTER 2020-10-23 10:05 | Inpatient (IN) | payer BC ==
[~2020-10-23] VITALS: Ht 167.7 cm; Wt 145.8 kg
[2020-10-23] MEDS: DOCUSATE SODIUM 100 MG (COLACE) CAP PO SCH ×2 (09:00→19:56)
[2020-10-23] MEDS: polyethylene glycoL POWDER 17 GM (MIRALAX) PACK PO SCH ×2 (09:00→19:56)
[2020-10-23] MEDS: SENNA W/DOCUSATE (SENOKOT S) TABLET PO SCH ×2 (09:00→19:56)
[~2020-10-23 10:05] MED LIST changes: +ALPRAZolam 0.25 MG (XANAX) TAB PO PRN; +BISACODYL 10 MG SUPP (DULCOLAX) PR PRN; +CALCIUM CARBONATE 500 MG (TUMS) TAB.CHEW PO PRN; +CETI10TA4 PO; +CITA20TA9 PO; +DOCUSATE SODIUM 100 MG (COLACE) CAP PO PRN; +FLEET ENEMA ADULT 1 EA BTL PR PRN; +LACTULOSE SYRUP 10GM/15ML (ENULOSE) 30ML UDC PO PRN; +LOPERAMIDE 2 MG (IMODIUM) TABLET PO PRN; +MELA5TAB14 PO; +MELATONIN 3 MG TABLET PO PRN; +ONDANSETRON 4 MG (ZOFRAN) ORAL DISSOLVE TAB PO PRN; +POTA10TA PO; +diphenhydrAMINE 25 MG TAB (BENADRYL) PO PRN; +guaiFENesin/CODEINE (ROBITUSSIN AC) 10ML UDC PO PRN
--- NOTE | 2020-10-23 10:18 | NUR ---
BINDU LAMBERT admitted to room 224, with an admitting diagnosis of COPD MYOPATHY, on 10/23/20 from [facility] via WHEELCHAIR, accompanied by STAFF. BINDU LAMBERT introduced to surroundings, call light, bed controls, phone, TV, temperature control, lights, meal times, smoking policy, visitor policy, side rail policy, bathrooms and showers. Patient Rights given to patient in the handbook. BINDU LAMBERT verbalizes understanding that [facility] is not responsible for the loss or damage to any personal effects or valuables that are kept in the patients posession during their hospitalization. The following Patient Care Plans were discussed with the PATIENT: Discharge Planning, FALLS,AND DISUSE MYOPATHY. BINDU LAMBERT verbalizes understanding of Interdisciplinary Patient Education. Patient and/or family were informed about the Rapid Response Team and its purpose. Patient received Patient Rights Booklet, which includes Privacy Act Statement and Data Collection Information Summary.
[2020-10-23 10:34] VITALS: BP 130/61
--- NOTE | 2020-10-23 11:20 | PM&R Post Admission Assessment ---
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 Patient is severely weak and hypoxic with minimal movement. BM+ and urinating well. Prednisone maintained for MG. Past Mluhrqx-Pkzlia-Dzifcq Hx Past Med/Social Hx: Reviewed Nursing Past Med/Soc Hx, Reviewed and Corrections made Patient Social History Marrital Status: Employed/Student: employed Alcohol Use: Denies Use Smoking Status: Never a Smoker 2nd Hand Smoke Exposure: No Recent Foreign Travel: No Contact w/other who traveled: No Recent Hopitalizations: Yes ( FOR INPATIENT REHAB) Recent Infectious Disease Expo: No Immunizations Up To Date Tetanus Booster (TDap): Less than 5yrs Pediatric: Yes Date of Pneumonia Vaccine: Jan 04, 2018 Date of Influenza Vaccine: Sep 12, 2020 Seasonal Allergies Seasonal Allergies: Yes Past Medical History Surgeries: Orthopedic Respiratory: Asthma, Chronic Bronchitis, Pneumonia, Sleep Apnea Currently Using CPAP: Yes Currently Using BIPAP: No Cardiac: Chronic Edema/Swelling, Deep Vein Thrombosis, High Cholesterol, Hy pertension Neurological: Neuropathy Myasthenia gravis 07/2020 [facility] 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: No Sexually Transmitted Disease: No Menopausal Genitourinary: Bladder Infection Musculoskeletal: Arthritis, Rheumatoid Arthritis Endocrine: Hypothyroidsim, Diabetes, Non-Insulin dep HEENT: Double Vision Loss of Vision: Denies Hearing Impairment: Denies History of Blood Disorders: No Adverse Reaction to Blood [place]: No Family History Alcoholism G8 BROTHER G8 SISTER Alzheimer's disease 19 MOTHER Arthritis 19 FATHER Asthma G8 SISTER Cardiovascular disease 19 FATHER Cataracts 19 FATHER Coronary thrombosis 19 FATHER Deafness or hearing loss SON Diabetes mellitus 19 FATHER G8 SISTER G8 SISTER Drug abuse G8 SISTER Hypertension 19 FATHER G8 SISTER G8 SISTER Kidney disease 19 FATHER Respiratory disorder G8 SISTER G8 SISTER Seizure disorder SON Severe allergy SON Heart Disease, Diabetes, Hypertension 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 PM&R Allergy/Meds/Data Review Allergies Coded Allergies: adhesive tape (Verified Allergy, Intermediate, 02/21/20) BLISTERS AND RAW SKIN amlodipine (Verified Allergy, Unknown, 02/22/13) erythromycin base (Verified Allergy, Unknown, 02/22/13) Uncoded Allergies: ALMONDS (Adverse Reaction, Mild, 02/22/20) SHE HAS PAIN ALL OVER WHEN SHE EATS THEM Home Medications Scheduled Atorvastatin Calcium (Atorvastatin Calcium), 20 MG PO DAILY, (Reported) Calcium Carbonate/Vitamin D3 (Calcium 500 + Vit D 200 Caplet), 1 EACH PO BID, (Reported) Cetirizine HCl (All Day Allergy), 10 MG PO DAILY, (Reported) Citalopram Hydrobromide (Citalopram HBr), 20 MG PO HS, (Reported) Clonidine HCl (Clonidine HCl), 0.1 MG PO BID, (Reported) Fluticasone/Vilanterol (Breo Ellipta 200-25 Mcg INH), 1 PUFF INH DAILY, (Reported) Levothyroxine Sodium (Levothyroxine Sodium), 50 MCG PO DAILY, (Reported) Losartan Potassium (Losartan Potassium), 50 MG PO DAILY, (Reported) Montelukast Sodium (Montelukast Sodium), 10 MG PO DAILY, (Reported) Pantoprazole Sodium (Pantoprazole Sodium), 40 MG PO DAILY, (Reported) Potassium Chloride (K-Tab ER), 10 MEQ PO DAILY, (Reported) Prednisone (Prednisone), 10 MG PO DAILY, (Reported) Tiotropium [place] (Spiriva Respimat 1.25MCG/ACTUATION), 2 PUFF INH DAILY, (Reported) Triamterene/Hydrochlorothiazid (Triamterene-Hctz 37.5-25 mg Cp), 1 CAP PO DAILY, (Reported) Scheduled PRN Albuterol Sulfate (Proair Hfa), 2 PUFF INH Q4H PRN for SHORTNESS OF BREATH, (Reported) Melatonin (Melatonin), 5 MG PO HS PRN for SLEEP, (Reported) Ondansetron (Ondansetron Odt), 8 MG PO Q8H PRN for NAUSEA/VOMITING-1ST LINE, (Reported) Current Medications Current Medications Reviewed Laboratory Data Laboratory Tests 10/23/20 11:13: Glucometer 156H Review of Systems Constitutional: see HPI, malaise, weakness Respiratory: dyspnea on exertion, short of breath Musculoskeletal: back pain, joint pain All Other Systems Reviewed Negative Unless Noted: Yes Physical Exam Physical Exam Vital Signs Vital Signs - First Documented 10/23/20 10:34 Temp 36.6 Pulse 113 Resp 20 B/P (MAP) 130/61 Pulse Ox 96 O2 Delivery High Flow N/C O2 Flow Rate 8.00 Capillary Refill : Height, Weight, BMI Height: 5'6.00" Weight: 297lbs. 0.0oz. 134.920375wr; 52.26 BMI Method:Stated General Appearance: No Apparent Distress, WD/WN, Chronically ill, Obese Eyes: Bilateral Eye Normal Inspection, Bilateral Eye PERRL HEENT: PERRL/EOMI, Normal ENT Inspection, Pharynx Normal Neck: Full Range of Motion, Normal Inspection, Non Tender, Supple, Carotid Bruit Respiratory: Chest Non Tender, Lungs Clear, No Accessory Muscle Use, No Respiratory Distress, Decreased Breath Sounds Cardiovascular: Regular Rate, Rhythm, No Edema, No Gallop, No JVD, No Murmur, Normal Peripheral Pulses Gastrointestinal: Normal Bowel Sounds, No Organomegaly, No Pulsatile Mass, Non Tender, Soft Back: Normal Inspection, No CVA Tenderness, No Vertebral Tenderness Extremity: Normal Capillary Refill, Normal Inspection, Normal Range of Motion, Non Tender, No Calf Tenderness, No Pedal Edema Neurologic/Psychiatric: Alert, Oriented x3, No Motor/Sensory Deficits, Normal Mood/Affect, circular sawyer stone II-XII Norm as Tested, Motor Weakness (generalized weakness 3/5 all extremities) Skin: Normal Color, Warm/Dry Lymphatic: No Adenopathy PM&R Medical Assessment & Plan REHAB/MEDICAL ASSESSMENT AND PLAN: 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 The comorbidities that impact the patients function and/or functional outcome by: severe COVID-19 weakness, severe hypoxia with activity, obesity REHAB PLAN: The patient is being admitted to our comprehensive inpatient rehabilitation facility and can tolerate the intensity of service consisting of at least: 180 minutes of therapy a day, 5 out of 7 days a week Rehab treatment will consist of: PT OT will focus on regaining function with weaning O2 and gaining strength and increasing ADL independence and ambulatory skills The patient/family has a good understanding of our discharge process and will benefit from an interdisciplinary inpatient rehabilitation program. The patient has potential to make improvement and is in need of at least two of the following multidisciplinary therapies including but not limited to physical, occupational, speech, and prosthetics and orthotics. Additionally the patient will need services from respiratory, nutritional services, wound care, psychology, etc. (Customize this to each patient). Given the patients complex condition and risk of further medical complications, rehabilitation services cannot be safely or effectively provided at a lower level of care such as a senior living facility. BARRIERS TO DISCHARGE: Severe weakness and hypoxia related to COVID-19 ESTIMATED LOS: 14 days DISPOSITION: Home RELEVANT CHANGES SINCE PREADMISSION SCREENING: I have compared the patients medical and functional status at the time of the preadmission screening and there are: no changes PROGNOSIS: Good REHABILITATION GOALS: 1.PT OT will focus on regaining function with weaning O2 and gaining strength and increasing ADL independence and ambulatory skills All the above goals were reviewed with the patient and he/she is in agreement. By signing this document, I acknowledge that I have personally performed a full physical examination on this patient within 24 hours of admission to this inpatient rehabilitation facility and have determined the patient to be able to tolerate the above course of treatment at an intensive level for a reasonable period of time. I will be completing a detailed individualized Plan of Care for this patient by day #4 of the patients stay based upon the Preadmission Screen, the Post-Admission Evaluation, and the therapy evaluations. Admission Dx/Comorbidities: (1) COVID-19 Status: Acute ICD Codes: U07.1 - COVID-19 (2) Status asthmaticus Status: Resolved ICD Codes: J45.902 - Status asthmaticus (3) Hypertension Status: Chronic ICD Codes: I10 - Hypertension (4) Hypothyroidism Status: Chronic ICD Codes: E03.9 - Hypothyroidism, unspecified (5) Diabetes mellitus Status: Chronic ICD Codes: E11.9 - Diabetes mellitus (6) Rheumatoid arthritis Status: Chronic ICD Codes: M06.9 - Rheumatoid arthritis, unspecified (7) Pulmonary embolism Status: Acute ICD Codes: I26.99 - Other pulmonary embolism without acute cor pulmonale (8) Hypoxia Status: Acute ICD Codes: R09.02 - Hypoxemia (9) Myasthenia gravis ICD Codes: G70.00 - Myasthenia gravis without (acute) exacerbation Assessment/Plan Assessment and Plan Assess & Plan/Chief Complaint Assessment: COVID-19 PNA critical illness myopathy Acute PE Myasthenia gravis Rheumatoid arthritis HTN HLP Asthma Obesity RALPH on CPAP Allergies DM Hypokalemia Plan: Prednisone MOnitor sugar O2 wean IRF protocol OAC FABIENNE ZAMORA DO Oct 23, 2020 11:20
[2020-10-23] MEDS ORDERED: CATHETER FLUSH 10 ML SYR IV PRN (11:30)
[2020-10-23] MEDS ORDERED: guaiFENesin/DM (ROBITUSSIN DM) 10 ML UDC PO PRN (11:30)
[2020-10-23] MEDS ORDERED: ONDANSETRON 4 MG (ZOFRAN) ORAL DISSOLVE TAB PO PRN (11:30)
[2020-10-23] MEDS ORDERED: ACETAMINOPHEN 500 MG TAB (TYLENOL) PO PRN (11:30)
[2020-10-23] MEDS ORDERED: ALPRAZolam 0.5 MG (XANAX) TAB PO PRN (11:30)
--- NOTE | 2020-10-23 11:34 | NUR ---
I COMPLETED THE MED REC ON 10-06-2020 WHEN THE PT WAS IN ICU (I SPOKE WITH HER ANTONIETA AT THAT TIME). THERE WERE NO CHANGES THAT NEED TO BE MADE TO THE MED REC AT THIS TIME
--- NOTE | 2020-10-23 11:47 | Occupational Therapy Eval ---
OT Evaluation-General/PLF Medical Diagnosis Admission Date Oct 23, 2020 at 10:05 Medical Diagnosis: COPD Myopathy Onset Date: Oct 06, 2020 Therapy Diagnosis Therapy Diagnosis: decreased ADL status, weakness Height/Weight Height (Feet): 5 Height (Inches): 6.00 Weight (Pounds): 297 Weight (Ounces): 0.0 Precautions Precautions/Isolations: Fall Prevention, Standard Precautions Referral Physician: Tony Referral Reason: Evaluation/Treatment Medical History Pertinent Medical History: DM, HTN, Hypothroidism, Neuropathy Additional Medical History Orthopedic, Asthma, Chronic Bronchitis, Pneumonia, Sleep Apnea, Chronic Edema/Swelling, Deep Vein Thrombosis, High Cholesterol, Hypertension, Neuropathy, Myasthenia gravis 07/2020 [facility], Arthritis, Rheumatoid Arthritis, Hypothyroidsim, Diabetes, Non-Insulin dep Current History Pt. was on rehab in July due to Myasthenia Gravis. She is now back with SOA secondary to COVID. Pt transferred to [facility] 10/23/2020 for continued medication management and skilled therapies. Social History Home: Single Level Current Living Status: Significant Other (& son) Entry Into Home: Stairs Without Railing Steps Into Home: 3 ADL-Prior Level of Function SCALE: Activities may be completed with or without assistive devices. 8-Amzrwornex-dtyzigd completes the activity by him/herself with no assistance from a helper. 5-Set-up or Clean-up Assistance-helper sets up or cleans up; patient completes activity. [place] assists only prior to or following the activity. 4-Supervision or Touching Assistance-helper provides verbal cues and/or touching/steadying and/or contact guard assistance as patient completes activity. Assistance may be provided throughout the activity or intermittently. 3-Partial/Moderate Assistance-helper does LESS THAN HALF the effort. [place] lifts, holds or supports trunk or limbs, but provides less than half the effort. 2-Substantial/Maximal Assistance-helper does MORE THAN HALF the effort. [place] lifts or holds trunk or limbs and provides more than half the effort. 8-Ktphbuyvu-hhkjql does ALL the effort. Patient does none of the effort to complete the activity. Or, the assistance of 2 or more helpers is required for the patient to complete the activity. If activity was not attempted, code reason: 7-Patient Refused. 9-Not Applicable-not attempted and the patient did not perform the activity before the current illness, exacerbation or injury. 10-Not Attempted due to Environmental Limitations-(lack of equipment, weather restraints, etc.). 88-Not Attempted due to Medical Conditions or Safety Concerns. ADL PLOF Comments Pt indicates she returned home independently from her last hospital stay. She was not using a walker but instead held onto objects while she walked. 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 She has a tub/shower and indicates she is going to have a tub bench vs chair but does not have one at this time. Self Care: Independent Functional Cognition: Independent DME/Equipment: Tub/Shower OT Current Status Subjective Pt agreeable to OT evaluation and OT/PT cotreat. Pt did not report any pain. Mental Status/Objective Patient Orientation: Person, Place, Time, Situation Attachments: Oxygen (7L) Current Glasses/Contacts: Yes Hearing Aids: No Dentures/Partials: No Hand Dominance: Right Upper Extremity ROM WFL Upper Extremity Coordination WFL Upper Extremity Sensation WFL Upper Extremity Strength grossly 4/5 ADL-Treatment Eating (QC): 6 (Pt reports independent with eating breakfast.) Oral Hygiene (QC): 4 (CGA standing at sink) Shower/Bathe Self (QC): 4 (CGA during stand at GBs, frequent verbal cues for rest breaks.) Upper Body Dressing (QC): 4 (SBA) Lower Body Dressing (QC): 4 (CGA, pt able to thread pants and complete pant hike) On/Off Footwear (QC): 4 (SBA) Toileting Hygiene (QC): 4 (Based on clincial judgement, pt would require CGA during task.) Other Treatments OT educated pt on benefits and purpose of OT, she verbalized understanding. Pt provided information about PLOF and home set up, and participated in UE screen. OT/PT cotreat due to skill of 2 clinicians required which a rehabilitation assistant could not perform in order to coordinate UE/LEs with tasks, and due to pt's limitations in strength, mobility, balance during activity and endurance and for safety/decrease fall risk. Pt transferred in/out of car simulation, over uneven surface, up/down one step, and bed mobility. Pt required frequent rest breaks due to SOB with activity. Pt then used FWW to ambulate to her room, seated rest break EOB. Pt stood at sink to perform oral care, became fatigued requiring seated rest break. Then she transferred to [place]. Pt completed showering and dressing at [place], CGA in stands at [facility]. Pt required moderate cues throughout task to slow down and take rest breaks due to SOB. Pt states she is fatigued after ADLs, indicating she cannot complete any more therapy at this time. Pt used FWW to transfer to recliner. Post cotreat, pt seated in recliner, call light in reach and all needs met. Education OT Patient Education: Correct positioning, Energy conservation, Modified ADL techniques, Progress toward Goal/Update tx plan, Purpose of tx/functional activities, Rehab process, Safety issues, Transfer techniques Teaching Recipient: Patient Teaching Methods: Discussion Response to Teaching: Verbalize Understanding OT Liquor Rectifier Goals Liquor Rectifier Goals Time Frame: Nov 13, 2020 Eating (QC): 6 Oral Hygiene (QC): 6 Toileting Hygiene (QC): 6 Shower/Bathe Self (QC): 6 Upper Body Dressing (QC): 6 Lower Body Dressing (QC): 6 On/Off Footwear (QC): 6 Additional Goals: 1-Demonstrate ADL Tasks, 2-Verbalize Understanding, 3- ImproveStrength/[place] 1=Demonstrate adherence to instructed precautions during ADL tasks. 2=Patient will verbalize/demonstrate understanding of assistive devices/modifications for ADL. 3=Patient will improve strength/tolerance for activity to enable patient to perform ADL's. OT Education/Plan Problem List/Assessment Assessment: Decreased Activ Tolerance, Decreased UE Strength, Impaired Funct Balance, Impaired I ADL's, Impaired Self-Care Skills Discharge Recommendations Plan/Recommendations: Continue POC Equpiment Recommendations-D/C: Extended Bath Bench Treatment Plan/Plan of Care Patient would benefit from OT for education, treatment and training to promote independence in ADL's, mobility, safety and/or upper extremity function for ADL's. Plan of Care: ADL Retraining, Functional Mobility, Group Exercise/Act as Ind, UE Funct Exercise/Act Treatment Duration: Nov 13, 2020 Frequency: At least 5 of 7 days/Wk (IRF) Estimated Hrs Per Day: 1.5 hours per day Agreement: Yes Rehab Potential: Fair Time/GCodes Start Time: 10:15 Stop Time: 11:15 Total Time Billed (hr/min): 60 Billed Treatment Time OT rafal x10', Cotreat with PT x50' 1, EVM (10'), FA (20'), ADL 2 (30') WENDY ROCHE OT Oct 23, 2020 11:47
--- NOTE | 2020-10-23 11:54 | Physical Therapy Evaluation ---
PT Evaluation-General Medical Diagnosis Admission Date Oct 23, 2020 at 10:05 Medical Diagnosis: COPD Myopathy Onset Date: Oct 06, 2020 Therapy Diagnosis Therapy Diagnosis: impaired mobility, strength, endurance Height/Weight Height (Feet): 5 Height (Inches): 6.00 Weight (Pounds): 297 Weight (Ounces): 0.0 Precautions Precautions/Isolations: Fall Prevention, Standard Precautions Referral Physician: Shayla Jimenez DO Reason for Referral: Evaluation/Treatment Medical History Pertinent Medical History: DM, HTN, Hypothroidism, Neuropathy Additional Medical History Myasthenia gravis Current History recovered from covid 19 Social History Home: Single Level Current Living Status: Spouse Entry Into Home: Stairs Without Railing PT Steps Into Home: 3 Prior Prior Level of Function SCALE: Activities may be completed with or without assistive devices. 5-Gtztampbyn-blncakr completes the activity by him/herself with no assistance from a helper. 5-Set-up or Clean-up Assistance-helper sets up or cleans up; patient completes activity. [place] assists only prior to or following the activity. 4-Supervision or Touching Assistance-helper provides verbal cues and/or touching/steadying and/or contact guard assistance as patient completes activity. Assistance may be provided throughout the activity or intermittently. 3-Partial/Moderate Assistance-helper does LESS THAN HALF the effort. [place] lifts, holds or supports trunk or limbs, but provides less than half the effort. 2-Substantial/Maximal Assistance-helper does MORE THAN HALF the effort. [place] lifts or holds trunk or limbs and provides more than half the effort. 3-Uzslzfhxk-jfcmbv does ALL the effort. Patient does none of the effort to complete the activity. Or, the assistance of 2 or more helpers is required for the patient to complete the activity. If activity was not attempted, code reason: 7-Patient Refused. 9-Not Applicable-not attempted and the patient did not perform the activity before the current illness, exacerbation or injury. 10-Not Attempted due to Environmental Limitations-(lack of equipment, weather restraints, etc.). 88-Not Attempted due to Medical Conditions or Safety Concerns. Bed Mobility: 6 Transfers (B,C,W/C): 6 Gait: 6 Stairs: 6 Indoor Mobility (Ambulation): Independent Stairs: Independent PT Evaluation-Current Subjective Patient in recliner pre tx, agrees to PT, has no complaints of pain. Will be co-treating with OT for part of tx due to poor patient mobility, strength, endurance, balance during activity, the need to coordinate UE and LE during activity, safety and decrease fall risk. Pt/Family Goals to be independent at home Objective Patient Orientation: Person, Place, Situation Attachments: Oxygen ROM/Strength ROM Lower Extremities WNL Strength Lower Extremities 4+/5 gross BLE Sensory Vision: Wears Glasses Hearing: Functional Sensation Right Lower Extremit: Intact Sensation Left Lower Extremity: Intact Transfers Roll Left & Right (QC): 6 Sit to Lying (QC): 6 Lying to Sitting/Side of Bed(Q: 6 Sit to Stand (QC): 4 Chair/Bdf-cw-Ijxsf Xfer(QC): 4 Toilet Transfer (QC): 4 Car Transfer (QC): 4 Patient performs bed mobility and supine <-> sit with independence, sit <-> stand and transfers with CGA, car transfer CGA. Cues for hand placement when sitting. Gait Does the Patient Walk?: Yes Mode of Locomotion: Walk Anticipated Mode of Locomotion: Walk Walk 10 feet (QC): 4 Walk 50 ft with 2 Turns(QC): 4 Walk 150 ft (QC): 88 Walking 10ft/uneven surface-QC: 4 Distance: 120' Gait Assistive Device: FWW Comments/Gait Description Patient can ambulate 120' with a rolling walker with CGA (including 50' with at least 2 turns of 90 degrees and 10' over an uneven surface). Patient is very SOB after ambulating but O2 stays at 92%. Patient also ambulates 100' and 20' Wheelchair Training Does the Pt Use a Wheelchair?: No Wheel 50 ft with 2 turns (QC): 9 Wheel 150 ft (QC): 9 Stairs #of Steps: 1 1 Step (curb) (QC): 4 4 Steps (QC): 88 12 Steps (QC): 88 Walking Assistive Device: Walker Patient can go up and down 1 step using a rolling walker with CGA, cues for foot placement. Balance Sitting Static: Normal Sitting Dynamic: Normal Standing Static: Good Standing Dynamic: Good Picking up an Object (QC): 4 Treatment bathing, dressing, ADL's/grooming Assessment/Needs Patient has impaired mobility, strength, endurance. She gets very SOB with activity. Patient was very fatigued after tx. Patient in recliner post tx with nurse call, phone, tray, all needs met. Rehab Potential: Fair PT Short Term Goals Short Term Goals Time Frame: Oct 30, 2020 Roll Left & Right: 6 Sit to lyin Lying to sitting on side of be: 6 Sit to stand: 4 Chair/jfv-mj-jhhsk transfer: 4 Walk 10 feet: 4 Walk 50 feet with two turns: 4 Walk 150 feet: 4 PT Utilization Reviewer Goals Care Home Goals PT Utilization Reviewer Goals Time Frame: Nov 13, 2020 Roll Left & Right (QC): 6 Sit to Lying (QC): 6 Lying-Sitting on Side/Bed(QC): 6 Sit to Stand (QC): 6 Chair/Dfi-gz-Gfnoc Xfer(QC): 6 Toilet Transfer (QC): 6 Car Transfer (QC): 6 Does the Patient Walk: Yes Walk 10 feet (QC): 6 Walk 50ft with 2 Turns (QC): 6 Walk 150 ft (QC): 6 Walking 10ft on Uneven Surface: 6 1 Step (curb) (QC): 5 4 Steps (QC): 5 12 Steps (QC): 88 Picking up an Object (QC): 6 Wheel 50 feet with 2 turns (QC: 9 Wheel 150 feet: 9 PT Plan Problem List Problem List: Activity Tolerance, Functional Strength, Safety, Balance, Gait, Transfer, Bed Mobility, ROM Treatment/Plan Treatment Plan: Continue Plan of Care Treatment Plan: Bed Mobility, Education, Functional Activity [place], Functional Strength, Group Therapy, Gait, Safety, Therapeutic Exercise, Transfers Treatment Duration: Nov 13, 2020 Frequency: At least 5 of 7 days/Wk (IRF) Estimated Hrs Per Day: 1.5 hours per day Patient and/or Family Agrees t: Yes Safety Risks/Education Patient Education: Gait Training, Transfer Techniques, Steps, Correct Positioning, Safety Issues Teaching Recipient: Patient Teaching Methods: Demonstration, Discussion Response to Teaching: Reinforcement Needed Discharge Recommendations Plan Patient will perform bed mobility and transfer training, balance and endurance training, functional strengthening, stair training, gait training, and education, to improve functional mobility and independence at home. Therapy Discharge Recommendati: Scheduled Assistance, Home & Family Time/GCodes Time In: 1005 Time Out: 1115 Total Billed Treatment Time: 60 Total Billed Treatment 1 visit EVM 10' FA 50' PT eval from [id number], OT eval from [id number], co-treat from [id number] PT performed bed mobility and transfers, ambulation, assisted with positioning and safety during bathing and ADL's, OT performed bathing and ADL's and assisted with UE positioning and safety during activity. ROBIN MOTA PT Oct 23, 2020 11:54
--- NOTE | 2020-10-23 13:29 | Physical Therapy Daily Note ---
PT Daily Note-Current Subjective Patient in recliner pre tx, agrees to PT, has no complaints of pain at rest. Will be co-treating with OT due to poor patient mobility, strength, endurance, safety and decrease fall risk. Appearance Patient in recliner post tx with nurse call, phone, tray, all needs met. Mental Status Patient Orientation: Person, Place, Situation Attachments: Oxygen Transfers SCALE: Activities may be completed with or without assistive devices. 5-Fbtolwnxua-phaqzkm completes the activity by him/herself with no assistance from a helper. 5-Set-up or Clean-up Assistance-helper sets up or cleans up; patient completes activity. [place] assists only prior to or following the activity. 4-Supervision or Touching Assistance-helper provides verbal cues and/or touching/steadying and/or contact guard assistance as patient completes activity. Assistance may be provided throughout the activity or intermittently. 3-Partial/Moderate Assistance-helper does LESS THAN HALF the effort. [place] lifts, holds or supports trunk or limbs, but provides less than half the effort. 2-Substantial/Maximal Assistance-helper does MORE THAN HALF the effort. [place] lifts or holds trunk or limbs and provides more than half the effort. 2-Ccbqmzvls-bwhtsb does ALL the effort. Patient does none of the effort to complete the activity. Or, the assistance of 2 or more helpers is required for the patient to complete the activity. If activity was not attempted, code reason: 7-Patient Refused. 9-Not Applicable-not attempted and the patient did not perform the activity before the current illness, exacerbation or injury. 10-Not Attempted due to Environmental Limitations-(lack of equipment, weather restraints, etc.). 88-Not Attempted due to Medical Conditions or Safety Concerns. Sit to Stand (QC): 4 Chair/Quy-vz-Uhoxk Xfer(QC): 4 Gait Training Distance: 120'x2 Walk 10 feet (QC): 4 Walk 50 ft with 2 Turns(QC): 4 Gait Persons Needed: 1 Gait Assistive Device: FWW ambulates at a brisk pace, slightly unsteady, CGA, has a trendelenburg gait Neuromuscular standing balance activity hitting balloon, and standing activity to work on endurance while putting pegs in a board Treatments transfers, ambulation, balance and endurance training Assessment Current Status: Fair Progress Patient needs cues to rest to recover from fatigue, she seems overly eager to exert herself too much PT Short Term Goals Short Term Goals Time Frame: Oct 30, 2020 Roll Left & Right: 6 Sit to lyin Lying to sitting on side of be: 6 Sit to stand: 4 Chair/vhr-oa-btlzz transfer: 4 Walk 10 feet: 4 Walk 50 feet with two turns: 4 Walk 150 feet: 4 PT Business Partner Goals Prison Goals PT Business Partner Goals Time Frame: Nov 13, 2020 Roll Left & Right (QC): 6 Sit to Lying (QC): 6 Lying-Sitting on Side/Bed(QC): 6 Sit to Stand (QC): 6 Chair/Slb-us-Yzjve Xfer(QC): 6 Toilet Transfer (QC): 6 Car Transfer (QC): 6 Does the Patient Walk: Yes Walk 10 feet (QC): 6 Walk 50ft with 2 Turns (QC): 6 Walk 150 ft (QC): 6 Walking 10ft on Uneven Surface: 6 1 Step (curb) (QC): 5 4 Steps (QC): 5 12 Steps (QC): 88 Picking up an Object (QC): 6 Wheel 50 feet with 2 turns (QC: 9 Wheel 150 feet: 9 PT Plan Problem List Problem List: Activity Tolerance, Functional Strength, Safety, Balance, Gait, Transfer, Bed Mobility, ROM Treatment/Plan Treatment Plan: Continue Plan of Care Treatment Plan: Bed Mobility, Education, Functional Activity Lenin, Functional Strength, Group Therapy, Gait, Safety, Therapeutic Exercise, Transfers Treatment Duration: Nov 13, 2020 Frequency: At least 5 of 7 days/Wk (IRF) Estimated Hrs Per Day: 1.5 hours per day Patient and/or Family Agrees t: Yes Safety Risks/Education Patient Education: Gait Training, Transfer Techniques, Correct Positioning, Safety Issues Teaching Recipient: Patient Teaching Methods: Demonstration, Discussion Response to Teaching: Reinforcement Needed Time/GCodes Time In: 1300 Time Out: 1330 Total Billed Treatment Time: 30 Total Billed Treatment 1 visit GT 10' EX 20' ROBIN MOTA PT Oct 23, 2020 13:29
[2020-10-23] MEDS: NYSTATIN ORAL SUSP 5 ML UDC PO SCH ×3 (14:17→21:30)
--- NOTE | 2020-10-23 14:27 | Occupational Ther Daily Note ---
OT Current Status-Daily Note Subjective Pt seated in recliner, agreeable to OT tx. Pt indicates she just used the restroom, declining need to toilet at this time. Mental Status/Objective Attachments: Oxygen ADL-Treatment Therapy Code Descriptions/Definitions Functional [place] Measure: 0=Not Assessed/NA 4=Minimal Assistance 1=Total Assistance 5=Supervision or Setup 2=Maximal Assistance 6=Modified [place] 3=Moderate Assistance 7=Complete IndependenceSCALE: Activities may be completed with or without assistive devices. 9-Pahewopqdw-txslobq completes the activity by him/herself with no assistance from a helper. 5-Set-up or Clean-up Assistance-helper sets up or cleans up; patient completes activity. [place] assists only prior to or following the activity. 4-Supervision or Touching Assistance-helper provides verbal cues and/or touching/steadying and/or contact guard assistance as patient completes activity. Assistance may be provided throughout the activity or intermittently. 3-Partial/Moderate Assistance-helper does LESS THAN HALF the effort. [place] lifts, holds or supports trunk or limbs, but provides less than half the effort. 2-Substantial/Maximal Assistance-helper does MORE THAN HALF the effort. [place] lifts or holds trunk or limbs and provides more than half the effort. 8-Puidasnki-sconbk does ALL the effort. Patient does none of the effort to complete the activity. Or, the assistance of 2 or more helpers is required for the patient to complete the activity. If activity was not attempted, code reason: 7-Patient Refused. 9-Not Applicable-not attempted and the patient did not perform the activity before the current illness, exacerbation or injury. 10-Not Attempted due to Environmental Limitations-(lack of equipment, weather restraints, etc.). 88-Not Attempted due to Medical Conditions or Safety Concerns. Other Treatment OT/PT cotreat due to skill of 2 clinicians required which a rehabilitation clerk could not perform in order to coordinate UE/LE with tasks, decrease fall risk, improve dynamic standing balance, and due to pt's limitations in strength, coordination, balance, and mobility. OT focused on UE placement, UE activities, and reaching while PT focused on standing balance and ambulation. Pt used FWW to ambulate to therapy gym, [facility]. She ambulated at a brisk pace, slightly unsteady. Pt took a seated rest break on edge of therapy mat to catch her breath. In order to increase BUE strength and endurance as well as standing balance, pt stood and hit balloon back and forth using BUEs all planes, PT assisted pt with balance as needed. Pt required frequent seated rest breaks with task due to SOB. Pt then completed fine motor activity standing, placing and removing x25 pegs, altern ating hands. Pt required 1 seated rest break with activity. Pt returned to her room using FWW, CGA. Pt required frequent cues throughout tx in order to take rest breaks, as she appeared to overly exert herself asking what the next task was while SOB. to Post cotreat, pt seated in recliner, call light in reach and all needs met. Education OT Patient Education: Correct positioning, Energy conservation, Modified ADL techniques, Progress toward Goal/Update tx plan, Purpose of tx/functional activities Teaching Recipient: Patient Teaching Methods: Discussion Response to Teaching: Verbalize Understanding OT [facility] Goals Abstract Checker Goals Time Frame: Nov 13, 2020 Eating (QC): 6 Oral Hygiene (QC): 6 Toileting Hygiene (QC): 6 Shower/Bathe Self (QC): 6 Upper Body Dressing (QC): 6 Lower Body Dressing (QC): 6 On/Off Footwear (QC): 6 Additional Goals: 1-Demonstrate ADL Tasks, 2-Verbalize Understanding, 3- ImproveStrength/Lenin 1=Demonstrate adherence to instructed precautions during ADL tasks. 2=Patient will verbalize/demonstrate understanding of assistive devices/modifications for ADL. 3=Patient will improve strength/tolerance for activity to enable patient to perform ADL's. OT Education/Plan Problem List/Assessment Assessment: Decreased Activ Tolerance, Decreased UE Strength, Impaired Funct Balance, Impaired I ADL's, Impaired Self-Care Skills Discharge Recommendations Plan/Recommendations: Continue POC Treatment Plan/Plan of Care Patient would benefit from OT for education, treatment and training to promote independence in ADL's, mobility, safety and/or upper extremity function for ADL's. Plan of Care: ADL Retraining, Functional Mobility, Group Exercise/Act as Ind, UE Funct Exercise/Act Treatment Duration: Nov 13, 2020 Frequency: At least 5 of 7 days/Wk (IRF) Estimated Hrs Per Day: 1.5 hours per day Agreement: Yes Rehab Potential: Fair Time/GCodes Start Time: 13:00 Stop Time: 13:30 Total Time Billed (hr/min): 30 Billed Treatment Time x30' cotreat with PT 1, FA 2 WENDY ROCHE OT Oct 23, 2020 14:27
[2020-10-23] MEDS: NYSTATIN CREAM (MYCOSTATIN) 30 GM TUBE TP SCH ×2 (14:35→21:38)
--- NOTE | 2020-10-23 15:04 | ST Cognitive Linguistic Eval ---
Speech Evaluation-General Medical Diagnosis COPD Myopathy Onset Date: Oct 06, 2020 Therapy Diagnosis Therapy Diagnosis: Cognitive-communication Referral Referring Physician: Dr. Jimenez Medical History Pertinent Medical History: DM, HTN, Hypothroidism, Neuropathy Social History Current Living Status: Significant Other (& son) Speech PLF-Current Status Prior Level of Function Patient lived at home with her SO and son where she was independent for her daily needs. Subjective Patient was pleasant and cooperative with the cognitive assessment. Language Eval: Auditory Comprehends Simple Yes/No Ques: Functional Indent/Objects Multiple Gatica: Functional Ident/Pics in Multiple Gatica: Functional Follows 1-Step Commands: Functional Follows Complex Directions: Functional Follows General Conversations: Functional Language Eval: Verbal Language Completes Spontaneous Greeting: Functional Produces Auto, Serial Info: Functional Imitates Simple Words/Phrases: Functional Word Finding: Functional Requests Basic Needs: Functional States Basic Personal Info: Functional Expresses Complex Ideas: Functional Objective Cognitive Domain Attention: WNL Memory: WNL Problem Solving: Functional Executive Functions: WNL Visuospatial Skills: WNL Composite Severity Rating: WNL Clock Drawing Severity Rating: WNL Objective Formal/Standardized Tests [facility] Mental Status ([facility]) Results 28/30, within normal limits range of function Oral Motor/Speech Production Within Normal Limits Impression Patient is a pleasant 60 y/o female who was admitted to the ARU for strengthening due weakness from recent illness. Patient was given the SLUMS at bedside with a score of 28/30 obtained. The score is within normal range of function which does not indicate further need for ST services. Speech Patient Assess Expression of Ideas/Wants: Expression (4) Understanding Verbal Content: Understands (4) Brief Interview-Mental Status: Yes Repetition of Three Words: Three (3) Temporal Orientation: Year: Correct (3) Temporal Orientation: Month: Accurate within 5 days(2) Temporal Orientation: Day: Correct (1) Recall : Wear to say "Sock": Yes, no cue required (2) Recall : Color: Yes, no cue required (2) Recall : Bed: Yes, no cue required (2) Memory/Recall Ability: Current season, Location of own room, That he or she is in a hsp/hsp unit Speech-Plan Patient/Family Goals Patient/Family Goals: Patient plans on returning to her home with her SO and son. Treatment Plan Speech Therapy Treatment Plan: Discontinue ST Treatment Duration: Oct 23, 2020 Frequency: 1 time per week Estimated Hrs Per Day: .25 hour per day Rehab Potential: Fair Barriers to Learning: Patient recent decline in health Pt/Family Agrees to Plan: Yes Safety Risks/Education Teaching Recipient: Patient Teaching Methods: Discussion Response to Teaching: Verbalize Understanding Education Topics Provided: Safety within her room and communication of wants/needs Time Speech Therapy Time In: 14:45 Speech Therapy Time Out: 15:00 Total Billed Time: 15 Billed Treatment Time 1, SPSNDCOMP AMBER Smith Oct 23, 2020 15:04
[2020-10-23 16:50] VITALS: BP 119/63
[2020-10-23] MEDS: inSUlin ASPART (NovoLOG) 1 UNIT/0.01 ML (CHARGE PER UNIT) SC SCH ×2 (16:58→21:30)
[2020-10-23] MEDS: CALCIUM CARB + VIT D 600 MG (CALCARB + D) TAB PO SCH (17:00)
[2020-10-23] MEDS: RT-ALBUTEROL INHALER HFA (VENTOLIN HFA) 18 GM IH SCH ×2 (17:07→20:37)
[2020-10-23] MEDS ORDERED: APIXABAN 5 MG (ELIQUIS) TABLET PO SCH (21:00)
[2020-10-23] MEDS: MELATONIN 10 MG TABLET PO PRN (21:32)
[2020-10-23] MEDS: MICONAZOLE 2% POWDER (DESENEX AF) 90 GM TOP SCH (21:37)
[2020-10-24] MEDS: RT-ALBUTEROL INHALER HFA (VENTOLIN HFA) 18 GM IH SCH ×4 (02:35→20:10)
[2020-10-24] MEDS: LEVOTHYROXINE 50 MCG (LEVOTHROID) TAB PO SCH (05:24)
[2020-10-24] MEDS: predniSONE 10 MG TAB PO SCH (05:25)
[2020-10-24] MEDS: inSUlin ASPART (NovoLOG) 1 UNIT/0.01 ML (CHARGE PER UNIT) SC SCH ×4 (05:26→21:34)
[2020-10-24 05:48] VITALS: BP 134/64
[2020-10-24 05:51] LABS: BASOPHILS % (AUTO) 0 % (0-10); EOSINOPHILS # (AUTO) 0.1 10^3/uL (0.0-0.3); EOSINOPHILS % (AUTO) 1 % (0-10); HEMATOCRIT 36 % (35-52); HEMOGLOBIN 11.5 g/dL (11.5-16.0); LYMPHOCYTES # (AUTO) 1.7 10^3/uL (1.0-4.0); LYMPHOCYTES % (AUTO) 17 % (12-44); MEAN CORPUSCULAR HEMOGLOBIN 29 pg (25-34); MEAN CORPUSCULAR HGB CONC 32 g/dL (32-36); MEAN CORPUSCULAR VOLUME 92 fL (80-99); MEAN PLATELET VOLUME 10.6 fL (9.0-12.2); MONOCYTES # (AUTO) 0.7 10^3/uL (0.0-1.0); MONOCYTES % (AUTO) 7 % (0-12); NEUTROPHILS # (AUTO) 7.3 10^3/uL (1.8-7.8); NEUTROPHILS % (AUTO) 74 % (42-75); PLATELET COUNT 231 10^3/uL (130-400)
[2020-10-24 06:05] LABS: ALBUMIN 3.1 GM/DL (3.2-4.5); CHLORIDE 98 MMOL/L (98-107); POTASSIUM 3.3 MMOL/L (3.6-5.0); SODIUM 136 MMOL/L (135-145)
[2020-10-24 06:06] LABS: CALCIUM 8.2 MG/DL (8.5-10.1)
[2020-10-24 06:07] LABS: GLUCOSE 132 MG/DL (70-105); TOTAL PROTEIN 5.8 GM/DL (6.4-8.2)
[2020-10-24 06:08] LABS: CARBON DIOXIDE 27 MMOL/L (21-32)
[2020-10-24 06:09] LABS: BILIRUBIN,TOTAL 0.8 MG/DL (0.1-1.0)
[2020-10-24 06:11] LABS: ALKALINE PHOSPHATASE 64 U/L (40-136); CREATININE SERUM 0.82 MG/DL (0.60-1.30); GFR ESTIMATED > 60
[2020-10-24 06:12] LABS: BUN/CREATININE RATIO 24
[2020-10-24 06:14] LABS: ALANINE AMINOTRANSFERASE 30 U/L (0-55)
[2020-10-24] MEDS: UMECLIDINIUM BROMIDE (INCRUSE ELLIPTA) 7'S IH SCH (07:56)
[2020-10-24] MEDS: ADVAIR HFA 115/21 MCG INHALER 8 GM IH SCH (07:56)
[2020-10-24] MEDS: CALCIUM CARB + VIT D 600 MG (CALCARB + D) TAB PO SCH ×2 (09:38→17:56)
[2020-10-24] MEDS: PANTOPRAZOLE 40 MG (PROTONIX) TAB PO SCH (09:38)
[2020-10-24] MEDS: MONTELUKAST 10 MG (SINGULAIR) TAB PO SCH (09:39)
[2020-10-24] MEDS: LOSARTAN 50 MG (COZAAR) TAB PO SCH (09:39)
[2020-10-24] MEDS: TRIAMTERENE/HCTZ 75-50 (MAXZIDE,DYAZIDE) TABLET PO SCH (09:39)
[2020-10-24] MEDS: SENNA W/DOCUSATE (SENOKOT S) TABLET PO SCH ×2 (09:39→21:28)
[2020-10-24] MEDS: APIXABAN 5 MG (ELIQUIS) TABLET PO SCH ×2 (09:40→21:28)
[2020-10-24] MEDS: DOCUSATE SODIUM 100 MG (COLACE) CAP PO SCH ×2 (09:40→21:28)
[2020-10-24] MEDS: LORATADINE (CLARITIN) 10 MG TAB PO SCH (09:40)
[2020-10-24] MEDS: NYSTATIN ORAL SUSP 5 ML UDC PO SCH ×4 (09:40→21:28)
[2020-10-24] MEDS: MICONAZOLE 2% POWDER (DESENEX AF) 90 GM TOP SCH ×2 (09:45→21:36)
[2020-10-24] MEDS: NYSTATIN CREAM (MYCOSTATIN) 30 GM TUBE TP SCH ×3 (09:46→21:36)
[2020-10-24] MEDS: polyethylene glycoL POWDER 17 GM (MIRALAX) PACK PO SCH ×2 (09:50→21:37)
--- NOTE | 2020-10-24 10:05 | Physical Therapy Daily Note ---
PT Daily Note-Current Subjective Pt agreeable. Pt states "I want to work hard. I am ready to go home." Mental Status Patient Orientation: Person, Place, Situation Transfers SCALE: Activities may be completed with or without assistive devices. 8-Myqulrlwyb-dnnmhxh completes the activity by him/herself with no assistance from a helper. 5-Set-up or Clean-up Assistance-helper sets up or cleans up; patient completes activity. [place] assists only prior to or following the activity. 4-Supervision or Touching Assistance-helper provides verbal cues and/or touching/steadying and/or contact guard assistance as patient completes activity. Assistance may be provided throughout the activity or intermittently. 3-Partial/Moderate Assistance-helper does LESS THAN HALF the effort. [place] lifts, holds or supports trunk or limbs, but provides less than half the effort. 2-Substantial/Maximal Assistance-helper does MORE THAN HALF the effort. [place] lifts or holds trunk or limbs and provides more than half the effort. 1-Ewfjvzjgl-dqworv does ALL the effort. Patient does none of the effort to complete the activity. Or, the assistance of 2 or more helpers is required for the patient to complete the activity. If activity was not attempted, code reason: 7-Patient Refused. 9-Not Applicable-not attempted and the patient did not perform the activity before the current illness, exacerbation or injury. 10-Not Attempted due to Environmental Limitations-(lack of equipment, weather restraints, etc.). 88-Not Attempted due to Medical Conditions or Safety Concerns. sit to stand transfers mod (I)), with minor use of hands as needed Gait Training Gait Assistive Device: FWW Pt amb with FWW and CGA, O2 at 4L/min 1 x 140ft, 2 x 70ft. O2 monitored, drops to 84-85% with exertion. Pt quickly recovers to 90-96% with seated rest breaks. Exercises Seated Therapy Exercises: Ankle pumps, Long arc quads, Hip flexion Seated Reps: 20 Standing: Side steps, Step-ups Standing Reps: 10 NuStep Minutes: 8 NuStep Workload: 1 Treatments OT/PT cotreat due to skill of 2 clinicians required which a alarm service technician could not perform in order to coordinate UE/LE with tasks, decrease fall risk, improve dynamic standing balance, and due to pt's limitations in strength, coordination, balance, and mobility. OT focused on UE placement, UE activities, and reaching while PT focused on standing balance, LE strengthening, endurance training and ambulation. Pt used FWW to ambulate to therapy gym, CGA. She ambulated at a brisk pace, slightly unsteady. Pt required frequent rest breaks due to SOB and O2 sats dropping with exertion. Dynamic balance challenges included standing with reaching across body, retrieving objects from various heights, batting balloon, alternating toe taps on 4" step, side stepping and sit to stand without support. PT assisted pt with balance as needed, CGA throughout treatment. Pt required frequent seated rest breaks with task due to SOB. Pt returned to her room using FWW, CGA. Pt O2 monitored frequently and throughout treatment. Pt instruucted to rest and recover as needed in attempt to maintain O2 sats >90%. Pt resting in recliner post therapy with O2 insitu at 3.5L/min and call light in reach. All needs met. Assessment Current Status: Good Progress Pt would benefit from continued therapy due to decreased activity tolerance, decreased UE/LE strength, Impaired Funct Balance, Impaired I ADL's, Impaired Self-Care Skills. Pt is very motivated. Pt O2 sats drop with exertion but recover quickly with rest. Pt maintained O2 sat of >95% on the Nu-step today and responded well to Nu-step. Pt was fatigued with therapy session. Pt progressing appropriately. PT Short Term Goals Short Term Goals Time Frame: Oct 30, 2020 Roll Left & Right: 6 Sit to lyin Lying to sitting on side of be: 6 Sit to stand: 4 Chair/qee-ru-jhsgp transfer: 4 Walk 10 feet: 4 Walk 50 feet with two turns: 4 Walk 150 feet: 4 PT [facility] Goals Optical Laboratory Manager Goals PT Optical Laboratory Manager Goals Time Frame: Nov 13, 2020 Roll Left & Right (QC): 6 Sit to Lying (QC): 6 Lying-Sitting on Side/Bed(QC): 6 Sit to Stand (QC): 6 Chair/Gjj-pa-Icwxj Xfer(QC): 6 Toilet Transfer (QC): 6 Car Transfer (QC): 6 Does the Patient Walk: Yes Walk 10 feet (QC): 6 Walk 50ft with 2 Turns (QC): 6 Walk 150 ft (QC): 6 Walking 10ft on Uneven Surface: 6 1 Step (curb) (QC): 5 4 Steps (QC): 5 12 Steps (QC): 88 Picking up an Object (QC): 6 Wheel 50 feet with 2 turns (QC: 9 Wheel 150 feet: 9 PT Plan Treatment/Plan Treatment Plan: Continue Plan of Care Treatment Plan: Bed Mobility, Education, Functional Activity [place], Functional Strength, Group Therapy, Gait, Safety, Therapeutic Exercise, Transfers Treatment Duration: Nov 13, 2020 Frequency: At least 5 of 7 days/Wk (IRF) Estimated Hrs Per Day: 1.5 hours per day Patient and/or Family Agrees t: Yes Safety Risks/Education Patient Education: Gait Training, Transfer Techniques, Safety Issues Time/GCodes Time In: 800 Time Out: 930 Total Billed Treatment Time: 90 Total Billed Treatment 1, FA x 30', Gait training x 30', Ther ex x 30' (Co-Treat x 60', Total Treatment time 90') TAYLER ESTRELLA CPTA Oct 24, 2020 10:05
--- NOTE | 2020-10-24 10:14 | PM&R Progress Note ---
Subjective HPI/CC On Admission Date Seen by Provider: Oct 24, 2020 Time Seen by Provider: 10:30 Subjective/Events-last exam O2 down to 3.5L/min Desats with activity Potassium 3.3 will start supplement No pain reported Checked meds and labs No wheezing Reviewed therapy notes Review of Systems General: Fatigue, Malaise Pulmonary: Dyspnea Objective Exam Vital Signs Vital Signs Date Time Temp Pulse Resp B/P (MAP) Pulse Ox O2 Delivery O2 Flow Rate FiO2 10/25/20 05:34 36.4 94 22 134/62 (86) 93 Nasal Cannula 5.00 Capillary Refill : Less Than 3 Seconds General Appearance: No Apparent Distress, WD/WN, Chronically ill, Obese HEENT: PERRL/EOMI, Normal ENT Inspection, Pharynx Normal Neck: Full Range of Motion, Normal Inspection, Non Tender, Supple, Carotid Bruit Respiratory: Chest Non Tender, Lungs Clear, No Accessory Muscle Use, No Respiratory Distress, Decreased Breath Sounds Cardiovascular: Regular Rate, Rhythm, No Edema, No Gallop, No JVD, No Murmur, Normal Peripheral Pulses Gastrointestinal: Normal Bowel Sounds, No Organomegaly, No Pulsatile Mass, Non Tender, Soft Back: Normal Inspection, No CVA Tenderness, No Vertebral Tenderness Extremity: Normal Capillary Refill, Normal Inspection, Normal Range of Motion, Non Tender, No Calf Tenderness, No Pedal Edema Neurologic/Psychiatric: Alert, Oriented x3, No Motor/Sensory Deficits, Normal Mood/Affect, child support case officer II-XII Norm as Tested, Motor Weakness (generalized weakness 3/5 all extremities) Skin: Normal Color, Warm/Dry Lymphatic: No Adenopathy Results/Procedures Lab Patient resulted labs reviewed. FIM Transfers Therapy Code Descriptions/Definitions Functional [place] Measure: 0=Not Assessed/NA 4=Minimal Assistance 1=Total Assistance 5=Supervision or Setup 2=Maximal Assistance 6=Modified [place] 3=Moderate Assistance 7=Complete IndependenceSCALE: Activities may be completed with or without assistive devices. 1-Dsyusqdolx-ejrtnca completes the activity by him/herself with no assistance from a helper. 5-Set-up or Clean-up Assistance-helper sets up or cleans up; patient completes activity. [place] assists only prior to or following the activity. 4-Supervision or Touching Assistance-helper provides verbal cues and/or touching/steadying and/or contact guard assistance as patient completes activity. Assistance may be provided throughout the activity or intermittently. 3-Partial/Moderate Assistance-helper does LESS THAN HALF the effort. [place] lifts, holds or supports trunk or limbs, but provides less than half the effort. 2-Substantial/Maximal Assistance-helper does MORE THAN HALF the effort. [place] lifts or holds trunk or limbs and provides more than half the effort. 6-Zilfuwfiv-tcnhko does ALL the effort. Patient does none of the effort to complete the activity. Or, the assistance of 2 or more helpers is required for the patient to complete the activity. If activity was not attempted, code reason: 7-Patient Refused. 9-Not Applicable-not attempted and the patient did not perform the activity before the current illness, exacerbation or injury. 10-Not Attempted due to Environmental Limitations-(lack of equipment, weather restraints, etc.). 88-Not Attempted due to Medical Conditions or Safety Concerns. Roll Left to Right (QC): 6 Sit to Lying (QC): 6 Sit to Stand (QC): 4 Chair/Fyc-de-Dxsfy Xfer(QC): 4 Car Transfer (QC): 4 Gait Training Does the Patient Walk?: Yes Distance: 120'x2 Walk 10 feet (QC): 4 Walk 50 ft with 2 Turns(QC): 4 Walk 150 ft (QC): 88 Walking 10ft/uneven surface-QC: 4 Gait Persons Needed: 1 Gait Assistive Device: FWW Wheelchair Training Does the Pt Use a Wheelchair?: No Wheel 50 ft with 2 turns (QC): 9 Wheel 150 ft (QC): 9 Stair Training #of Steps: 1 1 Step (curb) (QC): 4 4 Steps (QC): 88 12 Steps (QC): 88 Balance Picking up an Object (QC): 4 ADL-Treatment Eating (QC): 6 (Pt reports independent with eating breakfast.) Oral Hygiene (QC): 4 (CGA standing at sink) Shower/Bathe Self (QC): 4 (CGA during stand at GBs, frequent verbal cues for rest breaks.) Upper Body Dressing (QC): 4 (SBA) Lower Body Dressing (QC): 4 (CGA, pt able to thread pants and complete pant hike) On/Off Footwear (QC): 4 (SBA) Toileting Hygiene (QC): 4 (Based on clincial judgement, pt would require CGA during task.) Assessment/Plan Assessment and Plan Assess & Plan/Chief Complaint Assessment: COVID-19 PNA critical illness myopathy Acute PE Myasthenia gravis Rheumatoid arthritis HTN HLP Asthma Obesity RALPH on CPAP Allergies DM Hypokalemia Plan: Prednisone MOnitor sugar O2 wean IRF protocol OAC 10/24/20: Monitor O2 IRF protocol Improved status Replace potassium (1) COVID-19 Status: Acute (2) Status asthmaticus Status: Resolved Resolution Date/Time: 01/08/19 @ 09:56 (3) Hypertension Status: Chronic (4) Hypothyroidism Status: Chronic (5) Diabetes mellitus Status: Chronic (6) Rheumatoid arthritis Status: Chronic (7) Pulmonary embolism Status: Acute (8) Hypoxia Status: Acute (9) Myasthenia gravis FABIENNE ZAMORA DO Oct 24, 2020 10:14
--- NOTE | 2020-10-24 10:14 | Individualized Plan of Care ---
Individualized Plan of Care Rehab Nursing IPOC Order Admission Date Oct 23, 2020 at 10:05 Current Orders Orders Admission Order(Inpt,Obs,Sdc) (10/23/20 05:46) Vital Signs: Per Unit Policy ( 08,16,00 (10/23/20 05:46) Flash Welding Machine Operator-Inpt Rehab Con (10/23/20 05:46) Rehab Nursing Orders-Ipoc (10/23/20 05:46) Physical Therapy Rehab Orders (10/23/20 05:46) Occupational Therapy Rehab Ord (10/23/20 05:46) Speech Therapy Rehab Orders (10/23/20 05:46) Cbc With Automated Diff (10/24/20 06:00) Comprehensive Metabolic Panel (10/24/20 06:00) Intake & Output 06,14,22 (10/23/20 05:46) Precautions (Aru) (10/23/20 05:46) Rehab-Intensity Of Therapy (10/23/20 05:46) Cho 60g/M 3snack (16-2000 Carlos) (10/23/20 Breakfast) Initiate Admission Nursing Pro .admission (10/23/20 05:46) Alprazolam Tablet (Xanax Tablet) (10/23/20 06:00) Calcium Carbonate Chew Tablet (Antacid C (10/23/20 06:00) Diphenhydramine Tablet (Benadryl Tablet) (10/23/20 06:00) Docusate Sodium Capsule (Colace Capsule) (10/23/20 09:00) Docusate Sodium Capsule (Colace Capsule) (10/23/20 06:00) Bisacodyl Suppository (Dulcolax Supposit (10/23/20 06:00) Lactulose Oral Solution (Enulose Oral So (10/23/20 06:00) Na Phos/Na Biphos Enema (Fleet Enema Erick (10/23/20 06:00) Guaifenesin/Codeine Syrup (Robitussin Ac (10/23/20 06:00) Loperamide Tablet (Imodium Tablet) (10/23/20 06:00) Melatonin Tablet (Melatonin Tablet) (10/23/20 06:00) Polyethylene Glycol Powder Pkt (Miralax (10/23/20 09:00) Ondansetron Oral Dissolve Tab (Zofran (10/23/20 06:00) Senna S Tablet (Senokot S Tablet) (10/23/20 09:00) Initiate Admission Nursing Pro .admission (10/23/20 05:46) Admission Arrival Bed Request (10/23/20 10:17) Code/Resuscitation (10/23/20 11:21) Accucheck Achs ACHS (10/23/20 11:21) Incentive Spirometry (Nursing) Q2H (10/23/20 11:21) Cho 60g/M 1snack (16-2000 Carlos) (10/23/20 Lunch) Alprazolam Tablet (Xanax Tablet) (10/23/20 11:30) Acetaminophen Tablet (Tylenol Tablet) (10/23/20 11:30) Albuterol Inhaler (Ventolin Hfa) (10/23/20 15:00) Apixaban Tablet (Eliquis Tablet) (10/23/20 21:00) Atorvastatin Tablet (Lipitor Tablet) (10/24/20 09:00) Citalopram Tablet (Celexa Tablet) (10/23/20 21:00) Calcium Carbonate W/Vitamin D3 (Calcarb (10/23/20 18:00) Fluticasone/Salmeterol 115/21 (Advair Hf (10/24/20 09:00) Levothyroxine Tablet (Synthroid Tablet) (10/24/20 06:30) Loratadine Tablet (Claritin Tablet) (10/24/20 09:00) Losartan Tablet (Cozaar Tablet) (10/24/20 09:00) Melatonin Tablet (Melatonin) (10/23/20 11:30) Miconazole 2% Powder (Desenex Af 2% Powd (10/23/20 21:00) Montelukast Tablet (Singulair Tablet) (10/24/20 09:00) Insulin Aspart (Novolog) (Novolog (Charg (10/23/20 16:00) Nystatin Oral Suspension (Mycostatin O (10/23/20 13:00) Nystatin Cream (Mycostatin Cream) (10/23/20 13:00) Ondansetron Oral Dissolve Tab (Zofran (10/23/20 11:30) Pantoprazole Tablet (Protonix Tablet) (10/24/20 09:00) Sodium Chloride Flush (Catheter Flush Sy (10/23/20 11:30) Triamterene/Hctz 75-50 Tablet (Maxzide 7 (10/24/20 09:00) Umeclidinium [place] Inhaler (Incruse El (10/24/20 08:00) Guaifenesin/Dm Syrup (Robitussin Dm Syru (10/23/20 11:30) Insulin Determir (Per Unit) (Levemir (Pe (10/23/20 21:00) Prednisone Tablet (Deltasone Tablet) (10/24/20 07:00) Cpap (Set Up) (10/23/20 11:21) Communication For Respiratory (10/23/20 11:21) Consult Pulmonology (10/23/20 11:21) Incentive Spirometry Initial (10/23/20 11:21) Mat Initiate Protocol (10/23/20 11:21) Mdi Treatment (10/23/20 11:21) Rt Request For Service (10/23/20 11:21) Incentive Spirometry (Nursing) Q2H (10/23/20 11:21) Ambulate ,, (10/23/20 11:49) Sequential Compression Device Q4H (10/23/20 11:49) Dvt/Vte Risk - Notifiy Physici Q4H (10/23/20 11:49) Apixaban Tablet (Eliquis Tablet) (10/24/20 09:00) Patient Visit (10/23/20 ) Pt Eval Moderate Complexity (10/23/20 ) Functional Activities, Ea 15 (10/23/20 ) Patient Visit (10/23/20 ) Exercise Therap, Ea 15 Min (10/23/20 ) Gait Training, Ea 15 Min (10/23/20 ) Patient Visit (10/23/20 ) Speech Sound Lang Comp (10/23/20 ) Patient Visit (10/24/20 ) Exercise Therap, Ea 15 Min (10/24/20 ) Functional Activities, Ea 15 (10/24/20 ) Gait Training, Ea 15 Min (10/24/20 ) Potassium Chloride (Tablet) (Klor Con Ta (12/11/20 10:15) Potassium Chloride (Tablet) (Klor Con Ta (10/25/20 07:00) Rehab Nursing Orders: Ongoing Assess. of Cognitive Status, Ongoing Assess. of Function Status, Bladder Management, Bowel Management, Disease Management & Educaiton, DVT Prophylaxis, Fall Prevention, Fluid/Electrolyte/Nutrition Mgmt, Management of Risks & Complications, Management of Skin Intergrity, Nutrition Management, Pain Management, Patient/Family Support, Safety Management Intensity of Therapy to be met Patient to be seen: Min.3h per day/5 of 7d PT IPOC Problem List: Activity Tolerance, Functional Strength, Safety, Balance, Gait, Transfer, Bed Mobility, ROM Treatment Plan: Continue Plan of Care Bed Mobility, Education, Functional Activity Lenin, Functional Strength, Group Therapy, Gait, Safety, Therapeutic Exercise, Transfers Treatment Duration: Nov 13, 2020 Frequency: At least 5 of 7 days/Wk (IRF) Estimated Hrs Per Day: 1.5 hours per day OT IPOC Problems: Decreased Activ Tolerance, Decreased UE Strength, Impaired Funct Balance, Impaired I ADL's, Impaired Self-Care Skills OT Treatment, Training and Edu: Yes Plan of Care: ADL Retraining, Functional Mobility, Group Exercise/Act as Ind, UE Funct Exercise/Act Treatment Duration: Nov 13, 2020 Frequency: At least 5 of 7 days/Wk (IRF) Estimated Hrs Per Day: 1.[address] IPOC Speech Therapy Treatment Plan: Discontinue ST Treatment Duration: Oct 23, 2020 Frequency: 1 time per week Estimated Hrs Per Day: .25 hour per day Flash Welding Machine Operator/Case Mgmt Flash Welding Machine Operator/Case Managemen: Discharge Planning Dietitian/Registered Dietitian Dietitian/Registered Dietitian to monitor nutritional status and make changes and/or recommendations as needed and work with speech pathology on dietary upgrades as the occur. Physician IPOC Medical Issues being managed closely and that require the 24 hour availability of a physician: Recent COVID-19 PNA with asthma and obesity and RALPH and RA and MG and DM at high risk for decompensation Medical Issues: Bowel/Bladder Function, DVT Prophylaxis, Falls Precautions, Fluid/Electrolyte/Nutrition Balance, Infection Protection, Pain Management Brief Synthesis of Preadmission Screen, Post-Admission Evaluation, and Therapy Evaluations: PT OT will focus on regaining ambulatory skills along with ADL's due to severe weakness from COVID 19 with RA and MG Medical Prognosis: Good Anticipated Length of Stay: 7 days FABIENNE ZAMORA DO Oct 24, 2020 10:14
[2020-10-24] MEDS ORDERED: KCL 10 MEQ TAB (MICRO K) PO NR (10:15)
--- NOTE | 2020-10-24 10:32 | Occupational Ther Daily Note ---
OT Current Status-Daily Note Subjective Pt agreeable to therapy this AM. Pt eager to participate in therapy, but requires cues throughout session to take rest breaks. Mental Status/Objective Patient Orientation: Person, Place, Time, Situation Attachments: Oxygen (3.5 L) ADL-Treatment Therapy Code Descriptions/Definitions Functional [place] Measure: 0=Not Assessed/NA 4=Minimal Assistance 1=Total Assistance 5=Supervision or Setup 2=Maximal Assistance 6=Modified [place] 3=Moderate Assistance 7=Complete IndependenceSCALE: Activities may be completed with or without assistive devices. 9-Vhitdjajrl-fjqhqwv completes the activity by him/herself with no assistance from a helper. 5-Set-up or Clean-up Assistance-helper sets up or cleans up; patient completes activity. [place] assists only prior to or following the activity. 4-Supervision or Touching Assistance-helper provides verbal cues and/or touching/steadying and/or contact guard assistance as patient completes activity. Assistance may be provided throughout the activity or intermittently. 3-Partial/Moderate Assistance-helper does LESS THAN HALF the effort. [place] lifts, holds or supports trunk or limbs, but provides less than half the effort. 2-Substantial/Maximal Assistance-helper does MORE THAN HALF the effort. [place] lifts or holds trunk or limbs and provides more than half the effort. 9-Nfdbnaory-mcyqwl does ALL the effort. Patient does none of the effort to complete the activity. Or, the assistance of 2 or more helpers is required for the patient to complete the activity. If activity was not attempted, code reason: 7-Patient Refused. 9-Not Applicable-not attempted and the patient did not perform the activity befo re the current illness, exacerbation or injury. 10-Not Attempted due to Environmental Limitations-(lack of equipment, weather re straints, etc.). 88-Not Attempted due to Medical Conditions or Safety Concerns. On/Off Footwear: 4 (SBA, cues to rest due to SOB) Toileting Hygiene (QC): 4 (SBA) Toilet Transfer (QC): 4 (SBA) Other Treatment OT/PT cotreat due to skill of 2 clinicians required which a veterans rehabilitation counselor could not perform in order to coordinate UE/LE with tasks, decrease fall risk, improve dynamic standing balance, and due to pt's limitations in strength, coordination, balance, and mobility. OT focused on UE placement, UE activities, and reaching while PT focused on standing balance and ambulation. Pt seated on toilet, completed toileting and donned gripper socks, then used FWW to ambulate to recli ner for seated rest break. Pt then ambulated to therapy gym using FWW, CGA. Pt required frequent rest breaks due to SOB and O2 sats dropping with exertion. Dynamic balance challenges included standing with reaching across body, retrieving objects from various heights, batting balloon, alternating toe taps on 4" step, side stepping and sit to stand without support. PT assisted pt with balance as needed, CGA throughout treatment. O2 monitored, drops to 84-85% with exertion. Pt quickly recovers to 90-96% with seated rest breaks. Post Tx, pt remained in gym with PT for continued tx, all needs met. Education OT Patient Education: Correct positioning, Modified ADL techniques, Progress toward Goal/Update tx plan, Purpose of tx/functional activities Teaching Recipient: Patient Teaching Methods: Discussion Response to Teaching: Verbalize Understanding OT Skilled Nursing Goals Skilled Nursing Goals Time Frame: Nov 13, 2020 Eating (QC): 6 Oral Hygiene (QC): 6 Toileting Hygiene (QC): 6 Shower/Bathe Self (QC): 6 Upper Body Dressing (QC): 6 Lower Body Dressing (QC): 6 On/Off Footwear (QC): 6 Additional Goals: 1-Demonstrate ADL Tasks, 2-Verbalize Understanding, 3- ImproveStrength/Lenin 1=Demonstrate adherence to instructed precautions during ADL tasks. 2=Patient will verbalize/demonstrate understanding of assistive devices/modifications for ADL. 3=Patient will improve strength/tolerance for activity to enable patient to perform ADL's. OT Education/Plan Problem List/Assessment Assessment: Decreased Activ Tolerance, Decreased UE Strength, Impaired Funct Balance, Impaired I ADL's, Impaired Self-Care Skills Discharge Recommendations Plan/Recommendations: Continue POC Treatment Plan/Plan of Care Patient would benefit from OT for education, treatment and training to promote independence in ADL's, mobility, safety and/or upper extremity function for ADL's. Plan of Care: ADL Retraining, Functional Mobility, Group Exercise/Act as Ind, UE Funct Exercise/Act Treatment Duration: Nov 13, 2020 Frequency: At least 5 of 7 days/Wk (IRF) Estimated Hrs Per Day: 1.5 hours per day Agreement: Yes Rehab Potential: Fair Time/GCodes Start Time: 08:00 Stop Time: 09:00 Total Time Billed (hr/min): 60 Billed Treatment Time 1, ADL (10'), FA 3 (50') WENDY ROCHE OT Oct 24, 2020 10:32
--- NOTE | 2020-10-24 10:49 | Occupational Ther Daily Note ---
OT Current Status-Daily Note Subjective Pt seated in recliner, agreeable to OT tx. Mental Status/Objective Attachments: Oxygen (3.5L) ADL-Treatment Therapy Code Descriptions/Definitions Functional [place] Measure: 0=Not Assessed/NA 4=Minimal Assistance 1=Total Assistance 5=Supervision or Setup 2=Maximal Assistance 6=Modified [place] 3=Moderate Assistance 7=Complete IndependenceSCALE: Activities may be completed with or without assistive devices. 1-Zneeshzkos-wybwycl completes the activity by him/herself with no assistance from a helper. 5-Set-up or Clean-up Assistance-helper sets up or cleans up; patient completes activity. [place] assists only prior to or following the activity. 4-Supervision or Touching Assistance-helper provides verbal cues and/or touching/steadying and/or contact guard assistance as patient completes activity. Assistance may be provided throughout the activity or intermittently. 3-Partial/Moderate Assistance-helper does LESS THAN HALF the effort. [place] lifts, holds or supports trunk or limbs, but provides less than half the effort. 2-Substantial/Maximal Assistance-helper does MORE THAN HALF the effort. [place] lifts or holds trunk or limbs and provides more than half the effort. 6-Bxrpxctdg-bhvwrd does ALL the effort. Patient does none of the effort to complete the activity. Or, the assistance of 2 or more helpers is required for the patient to complete the activity. If activity was not attempted, code reason: 7-Patient Refused. 9-Not Applicable-not attempted and the patient did not perform the activity before the current illness, exacerbation or injury. 10-Not Attempted due to Environmental Limitations-(lack of equipment, weather restraints, etc.). 88-Not Attempted due to Medical Conditions or Safety Concerns. Oral Hygiene (QC): 6 (IND seated at sink.) Upper Body Dressing (QC): 5 (set up, pt able to doff/don well puller shirt and manage O2) Toileting Hygiene (QC): 4 (SBA) Toilet Transfer (QC): 4 (SBA) Other Treatment Pt seated in recliner, changed shirt. Pt stood without warning and without walker and started walking towards bathroom. OT educated pt to use walker any time she is up and let staff know prior to stand. Pt indicates she didn't think she needed to tell anyone since staff was present. Pt used FWW to ambulate into bathroom and onto toilet, SBA. She completed toileting, then stood and walked to sink. Pt sat in chair at sink to brush her teeth, comb her hair, and wash her face independently. Pt used FWW to return to recliner. Post OT tx, pt seated in recliner, call light in reach and all needs met. Education OT Patient Education: Correct positioning, Energy conservation, Modified ADL techniques, Progress toward Goal/Update tx plan, Purpose of tx/functional activities Teaching Recipient: Patient Teaching Methods: Discussion Response to Teaching: Verbalize Understanding OT Fitness Attendant Goals Fitness Attendant Goals Time Frame: Nov 13, 2020 Eating (QC): 6 Oral Hygiene (QC): 6 Toileting Hygiene (QC): 6 Shower/Bathe Self (QC): 6 Upper Body Dressing (QC): 6 Lower Body Dressing (QC): 6 On/Off Footwear (QC): 6 Additional Goals: 1-Demonstrate ADL Tasks, 2-Verbalize Understanding, 3- ImproveStrength/Lenin 1=Demonstrate adherence to instructed precautions during ADL tasks. 2=Patient will verbalize/demonstrate understanding of assistive devices/modifications for ADL. 3=Patient will improve strength/tolerance for activity to enable patient to perform ADL's. OT Education/Plan Problem List/Assessment Assessment: Decreased Activ Tolerance, Decreased UE Strength, Impaired Funct Balance, Impaired I ADL's Discharge Recommendations Plan/Recommendations: Continue POC Treatment Plan/Plan of Care Patient would benefit from OT for education, treatment and training to promote independence in ADL's, mobility, safety and/or upper extremity function for ADL's. Plan of Care: ADL Retraining, Functional Mobility, Group Exercise/Act as Ind, UE Funct Exercise/Act Treatment Duration: Nov 13, 2020 Frequency: At least 5 of 7 days/Wk (IRF) Estimated Hrs Per Day: 1.5 hours per day Agreement: Yes Rehab Potential: Fair Time/GCodes Start Time: 10:30 Stop Time: 11:00 Total Time Billed (hr/min): 30 Billed Treatment Time 1, ADL 2 WENDY ROCHE OT Oct 24, 2020 10:48
--- NOTE | 2020-10-24 11:01 | NUR ---
CM/SS ADMISSION Patient familiar to chart writer from recent stay on ARU late July this year. 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 She has history of Covid+ 10/01/20 and later presented to hospital 10/06 for worsening condition. Comorbidities include, in part, Covid 19 PNA, acute PE, Myasthenia Gravis, rheumatoid arthritis, HTN, HLP, asthma, obesity, RALPH on CPAP, DM, hypokalemia. Patient resides with her spouse Corey Maldonado and two of their adult children. She indicates all of them have had Covid and are recovered and back to work. Her goal is to return home as before when medically and functionally able to do so. 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 DME: Has cane, FWW, uses walking stick outdoors, has grab bars inside/outside shower, CPAP. Monitoring for new home O2. BARRIERS TO DISCHARGE PLANNING: Overall recovery, severe hypoxia with activity at this time. Poor mobility, strength, endurance, relative to Covid and complex comorbidities. CONTACTS: Patient has 5 children, two sons in the home, a son in [place], two daughters in [place]. Corey Maldonado, Spouse [phone] Arsalan Maldonado, Son [phone] Rory Maldonado, Son [address] [place] [address] Patient understands the purpose and process of the weekly patient care conference and that her first review will be Thursday, October 29, 2020.
--- NOTE | 2020-10-24 15:57 | NUR ---
"RD ASSESSMENT PMHx: chronic bronchitis; pneumonia; DVT; hypercholesterolemia; myasthenia gravis; DM; hypothyroidism; PT INTERACTION: Pt was awake and pleasant during nutrition follow-up. Pt states she has been eating alright since last assessment. Note avg PO intake 88% x4d, per chart review. Pt states some issues with nausea since last assessment. Note last BM was 10/24, and pt currently on bowel regimen of colace BID, senna BID, and miralx BID, per chart review. ABNORMAL NUTRITION-RELATED LAB VALUES LOW: K 3.3; Ca 8.2; Pro 5.8; alb 3.1; HIGH: BUN 20; glu 132; Est. kcal needs: 6967-0434 kcal | 25-30 kcal/kg IBW, based on IBW of 59.1 kg (130#) Est. Pro needs: 47-59 g Pro | 0.8-1.0 g Pro/kg IBW PES STATEMENT: Given current PO intake, no nutrition diagnosis at this time (NO-1.1). INTERVENTION: Continue with current diet order of Cho 60g/m 1snack diet. Will continue to follow and reassess as pt needs, intake, and status change. Gely HARVEY, MS RD LD [phone] cell"
[2020-10-24 18:57] VITALS: BP 102/57
[2020-10-24] MEDS: MELATONIN 10 MG TABLET PO PRN (21:29)
[2020-10-25] MEDS: RT-ALBUTEROL INHALER HFA (VENTOLIN HFA) 18 GM IH SCH ×4 (02:57→21:00)
[2020-10-25 05:34] VITALS: BP 134/62
[2020-10-25] MEDS: LEVOTHYROXINE 50 MCG (LEVOTHROID) TAB PO SCH (06:17)
[2020-10-25] MEDS: predniSONE 10 MG TAB PO SCH (06:17)
[2020-10-25] MEDS: KCL 10 MEQ TAB (MICRO K) PO SCH (06:17)
[2020-10-25] MEDS: inSUlin ASPART (NovoLOG) 1 UNIT/0.01 ML (CHARGE PER UNIT) SC SCH ×4 (06:26→20:52)
--- NOTE | 2020-10-25 07:07 | PM&R Progress Note ---
Subjective HPI/CC On Admission Date Seen by Provider: Oct 25, 2020 Time Seen by Provider: 12:30 Subjective/Events-last exam 10/25/20: Now on 3 liters but required 5L/min when she was working with PT 70% sats do occur when desats CPAP will be brought in by today and will bleed O2 into it O2 down to 3.5L/min Desats with activity Potassium 3.3 will start supplement No pain reported Checked meds and labs No wheezing Reviewed therapy notes Review of Systems General: Fatigue, Malaise Pulmonary: Dyspnea Objective Exam Vital Signs Vital Signs Date Time Temp Pulse Resp B/P (MAP) Pulse Ox O2 Delivery O2 Flow Rate FiO2 10/26/20 06:53 36.4 94 20 130/59 (82) 93 Nasal Cannula 3.00 Capillary Refill : Less Than 3 Seconds General Appearance: No Apparent Distress, WD/WN, Chronically ill, Obese HEENT: PERRL/EOMI, Normal ENT Inspection, Pharynx Normal Neck: Full Range of Motion, Normal Inspection, Non Tender, Supple, Carotid Bruit Respiratory: Chest Non Tender, Lungs Clear, No Accessory Muscle Use, No Respiratory Distress, Decreased Breath Sounds Cardiovascular: Regular Rate, Rhythm, No Edema, No Gallop, No JVD, No Murmur, Normal Peripheral Pulses Gastrointestinal: Normal Bowel Sounds, No Organomegaly, No Pulsatile Mass, Non Tender, Soft Back: Normal Inspection, No CVA Tenderness, No Vertebral Tenderness Extremity: Normal Capillary Refill, Normal Inspection, Normal Range of Motion, Non Tender, No Calf Tenderness, No Pedal Edema Neurologic/Psychiatric: Alert, Oriented x3, No Motor/Sensory Deficits, Normal Mood/Affect, balancer II-XII Norm as Tested, Motor Weakness (generalized weakness 3/5 all extremities) Skin: Normal Color, Warm/Dry Lymphatic: No Adenopathy Results/Procedures Lab Patient resulted labs reviewed. FIM Transfers Therapy Code Descriptions/Definitions Functional [place] Measure: 0=Not Assessed/NA 4=Minimal Assistance 1=Total Assistance 5=Supervision or Setup 2=Maximal Assistance 6=Modified [place] 3=Moderate Assistance 7=Complete IndependenceSCALE: Activities may be completed with or without assistive devices. 0-Lkfdosdasn-wpzqvgq completes the activity by him/herself with no assistance from a helper. 5-Set-up or Clean-up Assistance-helper sets up or cleans up; patient completes activity. [place] assists only prior to or following the activity. 4-Supervision or Touching Assistance-helper provides verbal cues and/or touching/steadying and/or contact guard assistance as patient completes activity. Assistance may be provided throughout the activity or intermittently. 3-Partial/Moderate Assistance-helper does LESS THAN HALF the effort. [place] lifts, holds or supports trunk or limbs, but provides less than half the effort. 2-Substantial/Maximal Assistance-helper does MORE THAN HALF the effort. [place] lifts or holds trunk or limbs and provides more than half the effort. 0-Uqqxixgtr-eyenaq does ALL the effort. Patient does none of the effort to complete the activity. Or, the assistance of 2 or more helpers is required for the patient to complete the activity. If activity was not attempted, code reason: 7-Patient Refused. 9-Not Applicable-not attempted and the patient did not perform the activity before the current illness, exacerbation or injury. 10-Not Attempted due to Environmental Limitations-(lack of equipment, weather restraints, etc.). 88-Not Attempted due to Medical Conditions or Safety Concerns. Roll Left to Right (QC): 6 Sit to Lying (QC): 6 Sit to Stand (QC): 4 Chair/Mpy-mo-Hdojm Xfer(QC): 4 Car Transfer (QC): 4 Gait Training Does the Patient Walk?: Yes Distance: 120'x2 Walk 10 feet (QC): 4 Walk 50 ft with 2 Turns(QC): 4 Walk 150 ft (QC): 88 Walking 10ft/uneven surface-QC: 4 Gait Persons Needed: 1 Gait Assistive Device: FWW Wheelchair Training Does the Pt Use a Wheelchair?: No Wheel 50 ft with 2 turns (QC): 9 Wheel 150 ft (QC): 9 Stair Training #of Steps: 1 1 Step (curb) (QC): 4 4 Steps (QC): 88 12 Steps (QC): 88 Balance Picking up an Object (QC): 4 ADL-Treatment Eating (QC): 6 (Pt reports independent with eating breakfast.) Oral Hygiene (QC): 6 (IND seated at sink.) Shower/Bathe Self (QC): 4 (CGA during stand at GBs, frequent verbal cues for rest breaks.) Upper Body Dressing (QC): 5 (set up, pt able to doff/don shoe puller shirt and manage O2) Lower Body Dressing (QC): 4 (CGA, pt able to thread pants and complete pant hike) On/Off Footwear (QC): 4 (SBA, cues to rest due to SOB) Toileting Hygiene (QC): 4 (SBA) Toilet Transfer (QC): 4 (SBA) Assessment/Plan Assessment and Plan Assess & Plan/Chief Complaint Assessment: COVID-19 PNA critical illness myopathy Acute PE Myasthenia gravis Rheumatoid arthritis HTN HLP Asthma Obesity RALPH on CPAP Allergies DM Hypokalemia Plan: Prednisone MOnitor sugar O2 wean IRF protocol OAC 10/24/20: Monitor O2 IRF protocol Improved status Replace potassium 10/25/20: Continue O2 and wean but desats quickly with activity Monitor closely (1) COVID-19 Status: Acute (2) Status asthmaticus Status: Resolved Resolution Date/Time: 01/08/19 @ 09:56 (3) Hypertension Status: Chronic (4) Hypothyroidism Status: Chronic (5) Diabetes mellitus Status: Chronic (6) Rheumatoid arthritis Status: Chronic (7) Pulmonary embolism Status: Acute (8) Hypoxia Status: Acute (9) Myasthenia gravis FABIENNE ZAMORA DO Oct 25, 2020 07:07
[2020-10-25 08:18] VITALS: BP 127/63
[2020-10-25] MEDS: TRIAMTERENE/HCTZ 75-50 (MAXZIDE,DYAZIDE) TABLET PO SCH (08:19)
[2020-10-25] MEDS: CALCIUM CARB + VIT D 600 MG (CALCARB + D) TAB PO SCH ×2 (08:19→17:02)
[2020-10-25] MEDS: PANTOPRAZOLE 40 MG (PROTONIX) TAB PO SCH (08:19)
[2020-10-25] MEDS: DOCUSATE SODIUM 100 MG (COLACE) CAP PO SCH ×2 (08:19→19:29)
[2020-10-25] MEDS: LOSARTAN 50 MG (COZAAR) TAB PO SCH (08:19)
[2020-10-25] MEDS: MONTELUKAST 10 MG (SINGULAIR) TAB PO SCH (08:20)
[2020-10-25] MEDS: polyethylene glycoL POWDER 17 GM (MIRALAX) PACK PO SCH ×2 (08:20→19:29)
[2020-10-25] MEDS: NYSTATIN ORAL SUSP 5 ML UDC PO SCH ×4 (08:20→20:52)
[2020-10-25] MEDS: APIXABAN 5 MG (ELIQUIS) TABLET PO SCH ×2 (08:20→20:53)
[2020-10-25] MEDS: SENNA W/DOCUSATE (SENOKOT S) TABLET PO SCH ×2 (08:20→19:30)
[2020-10-25] MEDS: LORATADINE (CLARITIN) 10 MG TAB PO SCH (08:20)
[2020-10-25] MEDS: NYSTATIN CREAM (MYCOSTATIN) 30 GM TUBE TP SCH ×3 (08:22→20:58)
[2020-10-25] MEDS: MICONAZOLE 2% POWDER (DESENEX AF) 90 GM TOP SCH ×2 (08:22→20:58)
--- NOTE | 2020-10-25 11:17 | Physical Therapy Daily Note ---
PT Daily Note-Current Subjective Pt. up in chair, agrees to therapy. Denies any pain. Mental Status Patient Orientation: Person, Place, Time, Situation Attachments: Oxygen (5L) Transfers SCALE: Activities may be completed with or without assistive devices. 8-Bproxfpcsr-hbnnntd completes the activity by him/herself with no assistance from a helper. 5-Set-up or Clean-up Assistance-helper sets up or cleans up; patient completes activity. [place] assists only prior to or following the activity. 4-Supervision or Touching Assistance-helper provides verbal cues and/or touching/steadying and/or contact guard assistance as patient completes activity. Assistance may be provided throughout the activity or intermittently. 3-Partial/Moderate Assistance-helper does LESS THAN HALF the effort. [place] lifts, holds or supports trunk or limbs, but provides less than half the effort. 2-Substantial/Maximal Assistance-helper does MORE THAN HALF the effort. [place] lifts or holds trunk or limbs and provides more than half the effort. 0-Cqdhymqeu-lriksx does ALL the effort. Patient does none of the effort to complete the activity. Or, the assistance of 2 or more helpers is required for the patient to complete the activity. If activity was not attempted, code reason: 7-Patient Refused. 9-Not Applicable-not attempted and the patient did not perform the activity before the current illness, exacerbation or injury. 10-Not Attempted due to Environmental Limitations-(lack of equipment, weather restraints, etc.). 88-Not Attempted due to Medical Conditions or Safety Concerns. Sit to Stand (QC): 6 Gait Training Does the Patient Walk?: Yes Distance: x 125 ft, x 75 ft Walk 10 feet (QC): 4 Gait Persons Needed: 1 Gait Assistive Device: FWW pt. becomes SOB very quickly with O2 dropping to mid-80s with activity on 5L O2 Exercises Seated Therapy Exercises: Ankle pumps, Long arc quads, Hip flexion Seated Reps: 20 NuStep Minutes: 10 NuStep Workload: 3 Treatments LE exercises, gait Assessment Current Status: Good Progress, Fair Progress Pt. continues to become very SOB with activity requiring seated rest periods of 1-2 minutes to recover breathing and O2 sats >90%. Pt. had no SOB with Nustep or leg exercises, only walking. Pt. returned to bedside chair post session with call light and all needs met, O2 in situ. PT Short Term Goals Short Term Goals Time Frame: Oct 30, 2020 Roll Left & Right: 6 Sit to lyin Lying to sitting on side of be: 6 Sit to stand: 4 Chair/xgs-vq-fbqfs transfer: 4 Walk 10 feet: 4 Walk 50 feet with two turns: 4 Walk 150 feet: 4 PT Fitness/Wellness Director Goals Shelter Goals PT Fitness/Wellness Director Goals Time Frame: Nov 13, 2020 Roll Left & Right (QC): 6 Sit to Lying (QC): 6 Lying-Sitting on Side/Bed(QC): 6 Sit to Stand (QC): 6 Chair/Hga-et-Cbszg Xfer(QC): 6 Toilet Transfer (QC): 6 Car Transfer (QC): 6 Does the Patient Walk: Yes Walk 10 feet (QC): 6 Walk 50ft with 2 Turns (QC): 6 Walk 150 ft (QC): 6 Walking 10ft on Uneven Surface: 6 1 Step (curb) (QC): 5 4 Steps (QC): 5 12 Steps (QC): 88 Picking up an Object (QC): 6 Wheel 50 feet with 2 turns (QC: 9 Wheel 150 feet: 9 PT Plan Treatment/Plan Treatment Plan: Continue Plan of Care Treatment Plan: Bed Mobility, Education, Functional Activity [place], Functional Strength, Group Therapy, Gait, Safety, Therapeutic Exercise, Transfers Treatment Duration: Nov 13, 2020 Frequency: At least 5 of 7 days/Wk (IRF) Estimated Hrs Per Day: 1.5 hours per day Patient and/or Family Agrees t: Yes Time/GCodes Time In: 0751 Time Out: 0815 Total Billed Treatment Time: 24 Total Billed Treatment 1, GT 10', Ex 14' ANEESH LAROSE PT Oct 25, 2020 11:17
--- NOTE | 2020-10-25 12:20 | NUR ---
PATIENT REPORTS FEELING MUCH BETTER. STATES, "I FEEL LIKE I'VE REALLY TURNED A CORNER". STILL GETS SOA WITH EXERTION... BUT RECOVERS QUICKLY.
[2020-10-25] MEDS: UMECLIDINIUM BROMIDE (INCRUSE ELLIPTA) 7'S IH SCH (13:35)
[2020-10-25] MEDS: ADVAIR HFA 115/21 MCG INHALER 8 GM IH SCH (13:36)
[2020-10-25 16:48] VITALS: BP 116/56
[2020-10-25] MEDS: MELATONIN 10 MG TABLET PO PRN (20:53)
[2020-10-26] MEDS: RT-ALBUTEROL INHALER HFA (VENTOLIN HFA) 18 GM IH SCH ×4 (03:32→19:46)
[2020-10-26] MEDS: predniSONE 10 MG TAB PO SCH (06:32)
[2020-10-26] MEDS: LEVOTHYROXINE 50 MCG (LEVOTHROID) TAB PO SCH (06:32)
[2020-10-26] MEDS: KCL 10 MEQ TAB (MICRO K) PO SCH (06:32)
[2020-10-26] MEDS: inSUlin ASPART (NovoLOG) 1 UNIT/0.01 ML (CHARGE PER UNIT) SC SCH ×4 (06:38→20:47)
[2020-10-26 06:53] VITALS: BP 130/59
[2020-10-26 08:20] VITALS: BP 120/56
[2020-10-26] MEDS: DOCUSATE SODIUM 100 MG (COLACE) CAP PO SCH ×2 (08:20→20:47)
[2020-10-26] MEDS: LORATADINE (CLARITIN) 10 MG TAB PO SCH (08:25)
[2020-10-26] MEDS: MONTELUKAST 10 MG (SINGULAIR) TAB PO SCH (08:25)
[2020-10-26] MEDS: CALCIUM CARB + VIT D 600 MG (CALCARB + D) TAB PO SCH ×2 (08:25→17:02)
[2020-10-26] MEDS: LOSARTAN 50 MG (COZAAR) TAB PO SCH (08:25)
[2020-10-26] MEDS: APIXABAN 5 MG (ELIQUIS) TABLET PO SCH ×2 (08:25→20:47)
[2020-10-26] MEDS: TRIAMTERENE/HCTZ 75-50 (MAXZIDE,DYAZIDE) TABLET PO SCH (08:25)
[2020-10-26] MEDS: PANTOPRAZOLE 40 MG (PROTONIX) TAB PO SCH (08:25)
[2020-10-26] MEDS: SENNA W/DOCUSATE (SENOKOT S) TABLET PO SCH ×2 (08:27→20:47)
[2020-10-26] MEDS: polyethylene glycoL POWDER 17 GM (MIRALAX) PACK PO SCH ×2 (08:27→19:44)
[2020-10-26] MEDS: NYSTATIN ORAL SUSP 5 ML UDC PO SCH ×4 (08:27→20:47)
[2020-10-26] MEDS: NYSTATIN CREAM (MYCOSTATIN) 30 GM TUBE TP SCH ×3 (08:28→20:46)
[2020-10-26] MEDS: MICONAZOLE 2% POWDER (DESENEX AF) 90 GM TOP SCH ×2 (08:28→20:53)
[2020-10-26] MEDS: UMECLIDINIUM BROMIDE (INCRUSE ELLIPTA) 7'S IH SCH (08:30)
[2020-10-26] MEDS: ADVAIR HFA 115/21 MCG INHALER 8 GM IH SCH (08:32)
--- NOTE | 2020-10-26 11:55 | PM&R Progress Note ---
Subjective HPI/CC On Admission Date Seen by Provider: Oct 26, 2020 Time Seen by Provider: 12:15 Subjective/Events-last exam 10/26/20: BM yesterday 3L/min O2 continuous 95% at night with CPAP with O2 10/25/20: Now on 3 liters but required 5L/min when she was working with PT 70% sats do occur when desats CPAP will be brought in by today and will bleed O2 into it O2 down to 3.5L/min Desats with activity Potassium 3.3 will start supplement No pain reported Checked meds and labs No wheezing Reviewed therapy notes Review of Systems Pulmonary: Dyspnea Objective Exam Vital Signs Vital Signs Date Time Temp Pulse Resp B/P (MAP) Pulse Ox O2 Delivery O2 Flow Rate FiO2 10/27/20 05:03 36.4 90 20 126/61 (82) 94 Nasal Cannula 2.00 Capillary Refill : Less Than 3 Seconds General Appearance: No Apparent Distress, WD/WN, Chronically ill, Obese HEENT: PERRL/EOMI, Normal ENT Inspection, Pharynx Normal Neck: Full Range of Motion, Normal Inspection, Non Tender, Supple, Carotid Bruit Respiratory: Chest Non Tender, Lungs Clear, No Accessory Muscle Use, No Respiratory Distress, Decreased Breath Sounds Cardiovascular: Regular Rate, Rhythm, No Edema, No Gallop, No JVD, No Murmur, Normal Peripheral Pulses Gastrointestinal: Normal Bowel Sounds, No Organomegaly, No Pulsatile Mass, Non Tender, Soft Back: Normal Inspection, No CVA Tenderness, No Vertebral Tenderness Extremity: Normal Capillary Refill, Normal Inspection, Normal Range of Motion, Non Tender, No Calf Tenderness, No Pedal Edema Neurologic/Psychiatric: Alert, Oriented x3, No Motor/Sensory Deficits, Normal Mood/Affect, 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 FIM Transfers Therapy Code Descriptions/Definitions Functional [place] Measure: 0=Not Assessed/NA 4=Minimal Assistance 1=Total Assistance 5=Supervision or Setup 2=Maximal Assistance 6=Modified [place] 3=Moderate Assistance 7=Complete IndependenceSCALE: Activities may be completed with or without assistive devices. 6-Nkaelneypt-nwzcfxt completes the activity by him/herself with no assistance from a helper. 5-Set-up or Clean-up Assistance-helper sets up or cleans up; patient completes activity. [place] assists only prior to or following the activity. 4-Supervision or Touching Assistance-helper provides verbal cues and/or touching/steadying and/or contact guard assistance as patient completes activity. Assistance may be provided throughout the activity or intermittently. 3-Partial/Moderate Assistance-helper does LESS THAN HALF the effort. [place] lifts, holds or supports trunk or limbs, but provides less than half the effort. 2-Substantial/Maximal Assistance-helper does MORE THAN HALF the effort. [place] lifts or holds trunk or limbs and provides more than half the effort. 3-Rcvrenmmd-quvezx does ALL the effort. Patient does none of the effort to complete the activity. Or, the assistance of 2 or more helpers is required for the patient to complete the activity. If activity was not attempted, code reason: 7-Patient Refused. 9-Not Applicable-not attempted and the patient did not perform the activity before the current illness, exacerbation or injury. 10-Not Attempted due to Environmental Limitations-(lack of equipment, weather restraints, etc.). 88-Not Attempted due to Medical Conditions or Safety Concerns. Roll Left to Right (QC): 6 Sit to Lying (QC): 6 Sit to Stand (QC): 6 Chair/Wvj-aq-Fbeuc Xfer(QC): 4 Car Transfer (QC): 4 Gait Training Does the Patient Walk?: Yes Distance: x 125 ft, x 75 ft Walk 10 feet (QC): 4 Walk 50 ft with 2 Turns(QC): 4 Walk 150 ft (QC): 88 Walking 10ft/uneven surface-QC: 4 Gait Persons Needed: 1 Gait Assistive Device: FWW Wheelchair Training Does the Pt Use a Wheelchair?: No Wheel 50 ft with 2 turns (QC): 9 Wheel 150 ft (QC): 9 Stair Training #of Steps: 1 1 Step (curb) (QC): 4 4 Steps (QC): 88 12 Steps (QC): 88 Balance Picking up an Object (QC): 4 ADL-Treatment Eating (QC): 6 (Pt reports independent with eating breakfast.) Oral Hygiene (QC): 6 (IND seated at sink.) Shower/Bathe Self (QC): 4 (CGA during stand at GBs, frequent verbal cues for rest breaks.) Upper Body Dressing (QC): 5 (set up, pt able to doff/don machine tack puller shirt and manage O2) Lower Body Dressing (QC): 4 (CGA, pt able to thread pants and complete pant hike) On/Off Footwear (QC): 4 (SBA, cues to rest due to SOB) Toileting Hygiene (QC): 4 (SBA) Toilet Transfer (QC): 4 (SBA) Assessment/Plan Assessment and Plan Assess & Plan/Chief Complaint Assessment: COVID-19 PNA critical illness myopathy Acute PE Myasthenia gravis Rheumatoid arthritis HTN HLP Asthma Obesity RALPH on CPAP Allergies DM Hypokalemia Plan: Prednisone MOnitor sugar O2 wean IRF protocol OAC 10/24/20: Monitor O2 IRF protocol Improved status Replace potassium 10/25/20: Continue O2 and wean but desats quickly with activity Monitor closely 10/26/20: Maintain O2 CPAP at night CHeck labs in am Potassium supplement (1) COVID-19 Status: Acute (2) Status asthmaticus Status: Resolved Resolution Date/Time: 01/08/19 @ 09:56 (3) Hypertension Status: Chronic (4) Hypothyroidism Status: Chronic (5) Diabetes mellitus Status: Chronic (6) Rheumatoid arthritis Status: Chronic (7) Pulmonary embolism Status: Acute (8) Hypoxia Status: Acute (9) Myasthenia gravis FABIENNE ZAMORA DO Oct 26, 2020 11:55
[2020-10-26 17:03] VITALS: BP 109/56
[2020-10-26] MEDS: MELATONIN 10 MG TABLET PO PRN (20:47)
[2020-10-27] MEDS: RT-ALBUTEROL INHALER HFA (VENTOLIN HFA) 18 GM IH SCH ×4 (03:54→21:09)
[2020-10-27 04:49] LABS: BASOPHILS % (AUTO) 0 % (0-10); EOSINOPHILS # (AUTO) 0.2 10^3/uL (0.0-0.3); EOSINOPHILS % (AUTO) 2 % (0-10); HEMATOCRIT 32 % (35-52); LYMPHOCYTES # (AUTO) 1.7 10^3/uL (1.0-4.0); LYMPHOCYTES % (AUTO) 23 % (12-44); MEAN CORPUSCULAR HEMOGLOBIN 30 pg (25-34); MEAN CORPUSCULAR HGB CONC 31 g/dL (32-36); MEAN CORPUSCULAR VOLUME 95 fL (80-99); MEAN PLATELET VOLUME 10.2 fL (9.0-12.2); MONOCYTES # (AUTO) 0.5 10^3/uL (0.0-1.0); MONOCYTES % (AUTO) 7 % (0-12); NEUTROPHILS # (AUTO) 4.9 10^3/uL (1.8-7.8); NEUTROPHILS % (AUTO) 66 % (42-75); PLATELET COUNT 181 10^3/uL (130-400); WHITE BLOOD COUNT 7.4 10^3/uL (4.3-11.0)
[2020-10-27 04:53] LABS: ALBUMIN 2.9 GM/DL (3.2-4.5); CHLORIDE 101 MMOL/L (98-107); POTASSIUM 3.2 MMOL/L (3.6-5.0); SODIUM 142 MMOL/L (135-145)
[2020-10-27 04:54] LABS: CALCIUM 8.2 MG/DL (8.5-10.1)
[2020-10-27 04:55] LABS: GLUCOSE 124 MG/DL (70-105)
[2020-10-27 04:56] LABS: TOTAL PROTEIN 5.3 GM/DL (6.4-8.2)
[2020-10-27 04:57] LABS: BILIRUBIN,TOTAL 0.6 MG/DL (0.1-1.0); CARBON DIOXIDE 30 MMOL/L (21-32)
[2020-10-27 04:59] LABS: ALKALINE PHOSPHATASE 59 U/L (40-136); CREATININE SERUM 0.71 MG/DL (0.60-1.30); GFR ESTIMATED > 60
[2020-10-27 05:00] LABS: BUN/CREATININE RATIO 23
[2020-10-27 05:02] LABS: ALANINE AMINOTRANSFERASE 28 U/L (0-55); MAGNESIUM 1.8 MG/DL (1.6-2.4)
[2020-10-27 05:03] VITALS: BP 126/61
[2020-10-27] MEDS: inSUlin ASPART (NovoLOG) 1 UNIT/0.01 ML (CHARGE PER UNIT) SC SCH ×4 (05:51→20:57)
[2020-10-27] MEDS: LEVOTHYROXINE 50 MCG (LEVOTHROID) TAB PO SCH (06:26)
[2020-10-27] MEDS: KCL 10 MEQ TAB (MICRO K) PO SCH ×3 (06:26→17:54)
[2020-10-27] MEDS: predniSONE 10 MG TAB PO SCH (06:28)
[2020-10-27 08:00] VITALS: BP 105/54
--- NOTE | 2020-10-27 09:01 | PM&R Progress Note ---
Subjective HPI/CC On Admission Date Seen by Provider: Oct 27, 2020 Time Seen by Provider: 09:00 Subjective/Events-last exam 10/27/20: Potassium 3.2, will double her potassium and take it with meals Pushing herself a little bit too much, becoming hypoxic Maintain on 3 L of oxygen 10/26/20: BM yesterday 3L/min O2 continuous 95% at night with CPAP with O2 10/25/20: Now on 3 liters but required 5L/min when she was working with PT 70% sats do occur when desats CPAP will be brought in by today and will bleed O2 into it O2 down to 3.5L/min Desats with activity Potassium 3.3 will start supplement No pain reported Checked meds and labs No wheezing Reviewed therapy notes Review of Systems General: Fatigue Pulmonary: Dyspnea Objective Exam Vital Signs Vital Signs Date Time Temp Pulse Resp B/P (MAP) Pulse Ox O2 Delivery O2 Flow Rate FiO2 10/27/20 22:45 93 Room Air 10/27/20 18:33 36.1 100 18 101/51 (68) 10/27/20 15:40 2.00 Capillary Refill : Less Than 3 Seconds General Appearance: No Apparent Distress, WD/WN, Chronically ill, Obese HEENT: PERRL/EOMI, Normal ENT Inspection, Pharynx Normal Neck: Full Range of Motion, Normal Inspection, Non Tender, Supple, Carotid Bruit Respiratory: Chest Non Tender, Lungs Clear, No Accessory Muscle Use, No Respiratory Distress, Decreased Breath Sounds Cardiovascular: Regular Rate, Rhythm, No Edema, No Gallop, No JVD, No Murmur, Normal Peripheral Pulses Gastrointestinal: Normal Bowel Sounds, No Organomegaly, No Pulsatile Mass, Non Tender, Soft Back: Normal Inspection, No CVA Tenderness, No Vertebral Tenderness Extremity: Normal Capillary Refill, Normal Inspection, Normal Range of Motion, Non Tender, No Calf Tenderness, No Pedal Edema Neurologic/Psychiatric: Alert, Oriented x3, No Motor/Sensory Deficits, Normal Mood/Affect, 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 FIM Transfers Therapy Code Descriptions/Definitions Functional [place] Measure: 0=Not Assessed/NA 4=Minimal Assistance 1=Total Assistance 5=Supervision or Setup 2=Maximal Assistance 6=Modified [place] 3=Moderate Assistance 7=Complete IndependenceSCALE: Activities may be completed with or without assistive devices. 5-Vrwiuckzto-eumuazp completes the activity by him/herself with no assistance from a helper. 5-Set-up or Clean-up Assistance-helper sets up or cleans up; patient completes activity. [place] assists only prior to or following the activity. 4-Supervision or Touching Assistance-helper provides verbal cues and/or touching/steadying and/or contact guard assistance as patient completes activity. Assistance may be provided throughout the activity or intermittently. 3-Partial/Moderate Assistance-helper does LESS THAN HALF the effort. [place] lifts, holds or supports trunk or limbs, but provides less than half the effort. 2-Substantial/Maximal Assistance-helper does MORE THAN HALF the effort. [place] lifts or holds trunk or limbs and provides more than half the effort. 5-Sassbupmc-zrdxox does ALL the effort. Patient does none of the effort to complete the activity. Or, the assistance of 2 or more helpers is required for the patient to complete the activity. If activity was not attempted, code reason: 7-Patient Refused. 9-Not Applicable-not attempted and the patient did not perform the activity before the current illness, exacerbation or injury. 10-Not Attempted due to Environmental Limitations-(lack of equipment, weather restraints, etc.). 88-Not Attempted due to Medical Conditions or Safety Concerns. Roll Left to Right (QC): 6 Sit to Lying (QC): 6 Sit to Stand (QC): 6 Chair/Wwv-xk-Cjnrt Xfer(QC): 4 Car Transfer (QC): 4 Gait Training Does the Patient Walk?: Yes Distance: x 125 ft, x 75 ft Walk 10 feet (QC): 4 Walk 50 ft with 2 Turns(QC): 4 Walk 150 ft (QC): 88 Walking 10ft/uneven surface-QC: 4 Gait Persons Needed: 1 Gait Assistive Device: FWW Wheelchair Training Does the Pt Use a Wheelchair?: No Wheel 50 ft with 2 turns (QC): 9 Wheel 150 ft (QC): 9 Stair Training #of Steps: 1 1 Step (curb) (QC): 4 4 Steps (QC): 88 12 Steps (QC): 88 Balance Picking up an Object (QC): 4 ADL-Treatment Eating (QC): 6 (Pt reports independent with eating breakfast.) Oral Hygiene (QC): 6 (IND seated at sink.) Shower/Bathe Self (QC): 4 (CGA during stand at GBs, frequent verbal cues for rest breaks.) Upper Body Dressing (QC): 5 (set up, pt able to doff/don pullman conductor shirt and manage O2) Lower Body Dressing (QC): 4 (CGA, pt able to thread pants and complete pant hike) On/Off Footwear (QC): 4 (SBA, cues to rest due to SOB) Toileting Hygiene (QC): 4 (SBA) Toilet Transfer (QC): 4 (SBA) Assessment/Plan Assessment and Plan Assess & Plan/Chief Complaint Assessment: COVID-19 PNA critical illness myopathy Acute PE Myasthenia gravis Rheumatoid arthritis HTN HLP Asthma Obesity RALPH on CPAP Allergies DM Hypokalemia Plan: Prednisone MOnitor sugar O2 wean IRF protocol OAC 10/24/20: Monitor O2 IRF protocol Improved status Replace potassium 10/25/20: Continue O2 and wean but desats quickly with activity Monitor closely 10/26/20: Maintain O2 CPAP at night CHeck labs in am Potassium supplement 10/27/20: Increase potassium Manage intensity to prevent hypoxia (1) COVID-19 Status: Acute (2) Status asthmaticus Status: Resolved Resolution Date/Time: 01/08/19 @ 09:56 (3) Hypertension Status: Chronic (4) Hypothyroidism Status: Chronic (5) Diabetes mellitus Status: Chronic (6) Rheumatoid arthritis Status: Chronic (7) Pulmonary embolism Status: Acute (8) Hypoxia Status: Acute (9) Myasthenia gravis FABIENNE ZAMORA DO Oct 27, 2020 09:01
[2020-10-27] MEDS: CALCIUM CARB + VIT D 600 MG (CALCARB + D) TAB PO SCH ×2 (09:15→17:54)
[2020-10-27] MEDS: SENNA W/DOCUSATE (SENOKOT S) TABLET PO SCH ×2 (09:16→21:08)
[2020-10-27] MEDS: DOCUSATE SODIUM 100 MG (COLACE) CAP PO SCH ×2 (09:16→21:08)
[2020-10-27] MEDS: LOSARTAN 50 MG (COZAAR) TAB PO SCH (09:16)
[2020-10-27] MEDS: APIXABAN 5 MG (ELIQUIS) TABLET PO SCH ×2 (09:16→21:08)
[2020-10-27] MEDS: TRIAMTERENE/HCTZ 75-50 (MAXZIDE,DYAZIDE) TABLET PO SCH (09:16)
[2020-10-27] MEDS: PANTOPRAZOLE 40 MG (PROTONIX) TAB PO SCH (09:16)
[2020-10-27] MEDS: MONTELUKAST 10 MG (SINGULAIR) TAB PO SCH (09:17)
[2020-10-27] MEDS: LORATADINE (CLARITIN) 10 MG TAB PO SCH (09:17)
[2020-10-27] MEDS: NYSTATIN ORAL SUSP 5 ML UDC PO SCH ×4 (09:17→21:08)
[2020-10-27] MEDS: polyethylene glycoL POWDER 17 GM (MIRALAX) PACK PO SCH ×2 (09:19→21:17)
[2020-10-27] MEDS: UMECLIDINIUM BROMIDE (INCRUSE ELLIPTA) 7'S IH SCH (09:25)
[2020-10-27] MEDS: ADVAIR HFA 115/21 MCG INHALER 8 GM IH SCH (09:27)
[2020-10-27] MEDS: NYSTATIN CREAM (MYCOSTATIN) 30 GM TUBE TP SCH ×3 (09:28→21:10)
[2020-10-27] MEDS: MICONAZOLE 2% POWDER (DESENEX AF) 90 GM TOP SCH ×2 (09:29→21:10)
--- NOTE | 2020-10-27 11:43 | Occupational Ther Daily Note ---
OT Current Status-Daily Note Subjective Pt states she wants to go home and she feels like she is ready. ADL-Treatment Therapy Code Descriptions/Definitions Functional [place] Measure: 0=Not Assessed/NA 4=Minimal Assistance 1=Total Assistance 5=Supervision or Setup 2=Maximal Assistance 6=Modified [place] 3=Moderate Assistance 7=Complete IndependenceSCALE: Activities may be completed with or without assistive devices. 1-Ltznswnsqf-pxyahib completes the activity by him/herself with no assistance from a helper. 5-Set-up or Clean-up Assistance-helper sets up or cleans up; patient completes activity. [place] assists only prior to or following the activity. 4-Supervision or Touching Assistance-helper provides verbal cues and/or touch ing/steadying and/or contact guard assistance as patient completes activity. Assistance may be provided throughout the activity or intermittently. 3-Partial/Moderate Assistance-helper does LESS THAN HALF the effort. [place] lifts, holds or supports trunk or limbs, but provides less than half the effort. 2-Substantial/Maximal Assistance-helper does MORE THAN HALF the effort. [place] lifts or holds trunk or limbs and provides more than half the effort. 7-Auxsngnbc-hwovwe does ALL the effort. Patient does none of the effort to complete the activity. Or, the assistance of 2 or more helpers is required for the patient to complete the activity. If activity was not attempted, code reason: 7-Patient Refused. 9-Not Applicable-not attempted and the patient did not perform the activity before the current illness, exacerbation or injury. 10-Not Attempted due to Environmental Limitations-(lack of equipment, weather restraints, etc.). 88-Not Attempted due to Medical Conditions or Safety Concerns. Other Treatment OT/PT cotreat due to skill of 2 clinicians required which a rehabilitation center manager could not perform in order to coordinate UE/LE with tasks, decrease fall risk, improve dynamic standing balance, and due to pt's limitations in strength, coordination, balance, and mobility. OT focused on UE placement, UE activities, and reaching while PT focused on standing balance and ambulation. Pt seated in recliner, stating she had already gotten dressed herself and brushed her teeth this morning. Pt declined showering at this time due to already getting dressed. Pt used FWW to ambulate to therapy gym, brisk pace, and onto therapy mat. Pt transferred supine and completed some LE exercises in order strengthen muscles required for functional transfers (sit <-> supine, sit <-> stand, etc.). x5 sit to stand transfers without using UEs to push up. Pt then stood and completed reaching activity from various heights, moving cones from low surface to a slightly higher surface, then back to the lower surface. Therapists recommended pt to take a rest break after moving cones to higher surface but pt did not listen and continued moving cones. After task, pt's O2 in low 80%'s, O2 increased from 2 to 3 L in order for pt to return to 90%'s. In order to increase functional endurance and breathing with activity, pt completed x10 mins on NuStep, using RUE & BLEs (pt unable to tolerate using LUE due to IV at elbow). Pt returned to her room using FWW, 1 seated rest break. Post tx, pt seated in recliner, call light in reach and all needs met. Education OT Patient Education: Correct positioning, Exercise program, Modified ADL t echniques, Progress toward Goal/Update tx plan, Purpose of tx/functional activities, Rehab process, Safety issues, Transfer techniques Teaching Recipient: Patient Teaching Methods: Discussion Response to Teaching: Verbalize Understanding OT Sql Report Developer Goals Sql Report Developer Goals Time Frame: Nov 13, 2020 Eating (QC): 6 Oral Hygiene (QC): 6 Toileting Hygiene (QC): 6 Shower/Bathe Self (QC): 6 Upper Body Dressing (QC): 6 Lower Body Dressing (QC): 6 On/Off Footwear (QC): 6 Additional Goals: 1-Demonstrate ADL Tasks, 2-Verbalize Understanding, 3- ImproveStrength/[place] 1=Demonstrate adherence to instructed precautions during ADL tasks. 2=Patient will verbalize/demonstrate understanding of assistive devices/modifications for ADL. 3=Patient will improve strength/tolerance for activity to enable patient to perform ADL's. OT Education/Plan Problem List/Assessment Assessment: Decreased Activ Tolerance, Decreased UE Strength, Impaired Funct Balance, Impaired I ADL's Discharge Recommendations Plan/Recommendations: Continue POC Treatment Plan/Plan of Care Patient would benefit from OT for education, treatment and training to promote independence in ADL's, mobility, safety and/or upper extremity function for ADL's. Plan of Care: ADL Retraining, Functional Mobility, Group Exercise/Act as Ind, UE Funct Exercise/Act Treatment Duration: Nov 13, 2020 Frequency: At least 5 of 7 days/Wk (IRF) Estimated Hrs Per Day: 1.5 hours per day Agreement: Yes Rehab Potential: Fair Time/GCodes Start Time: 08:00 Stop Time: 09:00 Total Time Billed (hr/min): 60 Billed Treatment Time cotreat x60' 1, EX 2 (30'), FA 2 (30') WENDY ROCHE OT Oct 27, 2020 11:43
--- NOTE | 2020-10-27 12:09 | Physical Therapy Daily Note ---
PT Daily Note-Current Subjective Pt. is very anxious for Rx, "I already got dressed, Im ready to get out of here ,Polly been here 22 days" Pain Location: No Pain Reported Mental Status Patient Orientation: Normal For Age Attachments: Oxygen (2-3 L), Other-See Comments (mask out of room) Transfers SCALE: Activities may be completed with or without assistive devices. 1-Jdtxcyabkj-tyiyiav completes the activity by him/herself with no assistance from a helper. 5-Set-up or Clean-up Assistance-helper sets up or cleans up; patient completes activity. [place] assists only prior to or following the activity. 4-Supervision or Touching Assistance-helper provides verbal cues and/or touching/steadying and/or contact guard assistance as patient completes activity. Assistance may be provided throughout the activity or intermittently. 3-Partial/Moderate Assistance-helper does LESS THAN HALF the effort. [place] lifts, holds or supports trunk or limbs, but provides less than half the effort. 2-Substantial/Maximal Assistance-helper does MORE THAN HALF the effort. [place] lifts or holds trunk or limbs and provides more than half the effort. 7-Bbyvbllap-nxibpz does ALL the effort. Patient does none of the effort to complete the activity. Or, the assistance of 2 or more helpers is required for the patient to complete the activity. If activity was not attempted, code reason: 7-Patient Refused. 9-Not Applicable-not attempted and the patient did not perform the activity before the current illness, exacerbation or injury. 10-Not Attempted due to Environmental Limitations-(lack of equipment, weather restraints, etc.). 88-Not Attempted due to Medical Conditions or Safety Concerns. Roll Left & Right (QC): 6 Sit to Lying (QC): 6 Lying to Sitting/Side of Bed(Q: 6 Sit to Stand (QC): 6 Chair/Zsv-pc-Fqeaf Xfer(QC): 6 Gait Training Does the Patient Walk?: Yes Walk 10 feet (QC): 4 Walk 50 ft with 2 Turns(QC): 4 Walk 150 ft (QC): 4 Gait Persons Needed: 1 Gait Assistive Device: FWW pt. with hyper rotatation of trunk to compensate to help advance steps and gait, Pt. wanting badly to excel to go home insists on walking farther and faster but then desatted to 80% on 2 L O2. Pt. was then educated about energy conservation and using the O2 , resting etc Stair Training Stair Training: Handrails/: uses walker #of Steps: 1 1 Step (curb) (QC): 4 Stairs: Pattern: Step to instructed in sequence and use of UEs for safe stair ascending, pt. states her steps have no rails and her and son will assist her up as they have done since the MG onset Exercises Supine Ex: Bridging, Pelvic tilt, Rolling, Heel Slides, Scooting, Straight leg raise, Hip abd/add Supine Reps: 15 Treatments co Rx PT OT secondary to pts. level of weakness and fatigue, OT concentrating on UE use dynamic activity ie reaching activity with trunk rotation and bending this date, pt. instructed to listen to her body and not push as she again desatted to low 80s with this activity Assessment Current Status: Good Progress PT Short Term Goals Short Term Goals Time Frame: Oct 30, 2020 Roll Left & Right: 6 Sit to lyin Lying to sitting on side of be: 6 Sit to stand: 4 Chair/inr-gf-yrtil transfer: 4 Walk 10 feet: 4 Walk 50 feet with two turns: 4 Walk 150 feet: 4 PT Mcc Goals Communications Department Head Goals PT Communications Department Head Goals Time Frame: Nov 13, 2020 Roll Left & Right (QC): 6 Sit to Lying (QC): 6 Lying-Sitting on Side/Bed(QC): 6 Sit to Stand (QC): 6 Chair/Ldy-fq-Nsmuq Xfer(QC): 6 Toilet Transfer (QC): 6 Car Transfer (QC): 6 Does the Patient Walk: Yes Walk 10 feet (QC): 6 Walk 50ft with 2 Turns (QC): 6 Walk 150 ft (QC): 6 Walking 10ft on Uneven Surface: 6 1 Step (curb) (QC): 5 4 Steps (QC): 5 12 Steps (QC): 88 Picking up an Object (QC): 6 Wheel 50 feet with 2 turns (QC: 9 Wheel 150 feet: 9 PT Plan Treatment/Plan Treatment Plan: Continue Plan of Care Treatment Plan: Bed Mobility, Education, Functional Activity Lenin, Functional Strength, Group Therapy, Gait, Safety, Therapeutic Exercise, Transfers Treatment Duration: Nov 13, 2020 Frequency: At least 5 of 7 days/Wk (IRF) Estimated Hrs Per Day: 1.5 hours per day Patient and/or Family Agrees t: Yes Safety Risks/Education Patient Education: Gait Training, Transfer Techniques, Steps, Correct Positioning, Disease Process, Safety Issues Teaching Recipient: Patient Teaching Methods: Demonstration, Discussion Response to Teaching: Verbalize Understanding, Return Demonstration, Reinforcement Needed Time/GCodes Time In: 800 Time Out: 900 Total Billed Treatment Time: 60 Total Billed Treatment 1,GT15m,EX30m,FA15m NICOL LAY LEATHER TOGGLER Oct 27, 2020 12:09
--- NOTE | 2020-10-27 13:44 | Occupational Ther Daily Note ---
OT Current Status-Daily Note Subjective Pt seated on toilet, stating she really had to go to the bathroom. OT noted pt did not use walker to get into bathroom, and had gotten to the bathroom without using call light. OT educated pt on importance of using call light, she verbalized understanding. ADL-Treatment Therapy Code Descriptions/Definitions Functional [place] Measure: 0=Not Assessed/NA 4=Minimal Assistance 1=Total Assistance 5=Supervision or Setup 2=Maximal Assistance 6=Modified [place] 3=Moderate Assistance 7=Complete IndependenceSCALE: Activities may be completed with or without assistive devices. 8-Zalickcmtq-vitcjzz completes the activity by him/herself with no assistance from a helper. 5-Set-up or Clean-up Assistance-helper sets up or cleans up; patient completes activity. [place] assists only prior to or following the activity. 4-Supervision or Touching Assistance-helper provides verbal cues and/or touching/steadying and/or contact guard assistance as patient completes activity. Assistance may be provided throughout the activity or intermittently. 3-Partial/Moderate Assistance-helper does LESS THAN HALF the effort. [place] lifts, holds or supports trunk or limbs, but provides less than half the effort. 2-Substantial/Maximal Assistance-helper does MORE THAN HALF the effort. [place] lifts or holds trunk or limbs and provides more than half the effort. 3-Jjfmczbfg-ayiypj does ALL the effort. Patient does none of the effort to complete the activity. Or, the assistance of 2 or more helpers is required for the patient to complete the activity. If activity was not attempted, code reason: 7-Patient Refused. 9-Not Applicable-not attempted and the patient did not perform the activity before the current illness, exacerbation or injury. 10-Not Attempted due to Environmental Limitations-(lack of equipment, weather restraints, etc.). 88-Not Attempted due to Medical Conditions or Safety Concerns. Toileting Hygiene (QC): 6 (IND with managing clothing and hygiene.) Toilet Transfer (QC): 6 (IND on/off toilet.) Other Treatment Pt seated on toilet, OT educated pt on importance of using call light and walker to get to the restroom, she verbalized understanding. Pt completed toileting, then ambulated back to her room, sitting EOB. Pt required verbal cue to watch O2 line and turn where she does not get tangled. Pt took a rest break. Pt then ambulated to the therapy gym, 1 seated rest break on the way. In order to incre ase BUE strength and functional endurance, pt placed/removed x100 1" pegs from foam pegboard, alternating hands. Pt used FWW to return to room, 1 seated rest break, and 1 cue to watch O2 lines while turning. Post OT tx, pt seated in recliner, call light in reach and all needs met. Education OT Patient Education: Correct positioning, Modified ADL techniques, Progress toward Goal/Update tx plan, Purpose of tx/functional activities Teaching Recipient: Patient Teaching Methods: Discussion Response to Teaching: Verbalize Understanding OT Custodial Goals Custodial Goals Time Frame: Nov 13, 2020 Eating (QC): 6 Oral Hygiene (QC): 6 Toileting Hygiene (QC): 6 Shower/Bathe Self (QC): 6 Upper Body Dressing (QC): 6 Lower Body Dressing (QC): 6 On/Off Footwear (QC): 6 Additional Goals: 1-Demonstrate ADL Tasks, 2-Verbalize Understanding, 3- ImproveStrength/[place] 1=Demonstrate adherence to instructed precautions during ADL tasks. 2=Patient will verbalize/demonstrate understanding of assistive devices/modifications for ADL. 3=Patient will improve strength/tolerance for activity to enable patient to perform ADL's. OT Education/Plan Problem List/Assessment Assessment: Decreased Activ Tolerance, Decreased UE Strength, Impaired Funct Balance, Impaired I ADL's Discharge Recommendations Plan/Recommendations: Continue POC Treatment Plan/Plan of Care Patient would benefit from OT for education, treatment and training to promote independence in ADL's, mobility, safety and/or upper extremity function for ADL's. Plan of Care: ADL Retraining, Functional Mobility, Group Exercise/Act as Ind, UE Funct Exercise/Act Treatment Duration: Nov 13, 2020 Frequency: At least 5 of 7 days/Wk (IRF) Estimated Hrs Per Day: 1.5 hours per day Agreement: Yes Rehab Potential: Fair Time/GCodes Start Time: 13:00 Stop Time: 13:30 Total Time Billed (hr/min): 30 Billed Treatment Time 1, FA 2 WENDY ROCHE OT Oct 27, 2020 13:44
--- NOTE | 2020-10-27 14:10 | Physical Therapy Daily Note ---
PT Daily Note-Current Subjective Pt. states her bed is a long way from the toilet and she feels she would profit from a BSC and that her would be willing to help with this by emptying it etc. Pain Location: No Pain Reported Mental Status Patient Orientation: Normal For Age Attachments: Oxygen (2.5L) pt. less anxious this aftn Transfers SCALE: Activities may be completed with or without assistive devices. 9-Gprikclzzz-bngwuow completes the activity by him/herself with no assistance from a helper. 5-Set-up or Clean-up Assistance-helper sets up or cleans up; patient completes activity. [place] assists only prior to or following the activity. 4-Supervision or Touching Assistance-helper provides verbal cues and/or touching/steadying and/or contact guard assistance as patient completes activity. Assistance may be provided throughout the activity or intermittently. 3-Partial/Moderate Assistance-helper does LESS THAN HALF the effort. [place] lifts, holds or supports trunk or limbs, but provides less than half the effort. 2-Substantial/Maximal Assistance-helper does MORE THAN HALF the effort. [place] lifts or holds trunk or limbs and provides more than half the effort. 6-Uejnafccn-icdalx does ALL the effort. Patient does none of the effort to complete the activity. Or, the assistance of 2 or more helpers is required for the patient to complete the activity. If activity was not attempted, code reason: 7-Patient Refused. 9-Not Applicable-not attempted and the patient did not perform the activity before the current illness, exacerbation or injury. 10-Not Attempted due to Environmental Limitations-(lack of equipment, weather restraints, etc.). 88-Not Attempted due to Medical Conditions or Safety Concerns. sit to stand x 4 with SBA Gait Training Does the Patient Walk?: Yes Walk 50 ft with 2 Turns(QC): 4 Gait Assistive Device: FWW gait training emphasizing safe use of extended O2 tubing simulating use of O2 concentrator , that pt may have to use at home. Pt. ambulated 50 ft x 3 with 3 turns each walk demonstrating good management of O2 tubing , no incident . Pts O2 sats declined to 82% with HR 134 , pt. instructed to sit, rest and practice energy conservation and listen to her body, pt. inquires as to whether she should get a pulse oximeter, this epidemiologist informed of approx cost etc Exercises Seated Therapy Exercises: Ankle pumps, Sit to stand, Long arc quads, Hip flexion, Hip abd/add Seated Reps: 20 Treatments LE seated exercises, gait with extended O2 tubing, gait in confined home like situation Assessment Current Status: Good Progress pt. continues to desat to low 80s with 2.5 L O2 and short dist gait approx 50 ft, at rest in chair pt >90% on 2 L O2 PT Short Term Goals Short Term Goals Time Frame: Oct 30, 2020 Roll Left & Right: 6 Sit to lyin Lying to sitting on side of be: 6 Sit to stand: 4 Chair/yvh-kl-amgsm transfer: 4 Walk 10 feet: 4 Walk 50 feet with two turns: 4 Walk 150 feet: 4 PT Group Home Goals [employer] Superintendent Goals PT Group Home Goals Time Frame: Nov 13, 2020 Roll Left & Right (QC): 6 Sit to Lying (QC): 6 Lying-Sitting on Side/Bed(QC): 6 Sit to Stand (QC): 6 Chair/Gnx-mv-Ejsnr Xfer(QC): 6 Toilet Transfer (QC): 6 Car Transfer (QC): 6 Does the Patient Walk: Yes Walk 10 feet (QC): 6 Walk 50ft with 2 Turns (QC): 6 Walk 150 ft (QC): 6 Walking 10ft on Uneven Surface: 6 1 Step (curb) (QC): 5 4 Steps (QC): 5 12 Steps (QC): 88 Picking up an Object (QC): 6 Wheel 50 feet with 2 turns (QC: 9 Wheel 150 feet: 9 PT Plan Treatment/Plan Treatment Plan: Continue Plan of Care Treatment Plan: Bed Mobility, Education, Functional Activity [place], Functional Strength, Group Therapy, Gait, Safety, Therapeutic Exercise, Transfers Treatment Duration: Nov 13, 2020 Frequency: At least 5 of 7 days/Wk (IRF) Estimated Hrs Per Day: 1.5 hours per day Patient and/or Family Agrees t: Yes Safety Risks/Education Patient Education: Gait Training, Transfer Techniques, Correct Positioning, Disease Process, Safety Issues Teaching Recipient: Patient Teaching Methods: Demonstration, Discussion Response to Teaching: Verbalize Understanding, Return Demonstration, Reinforcement Needed gait with extended O2 tubing safety Time/GCodes Time In: 1330 Time Out: 1400 Total Billed Treatment Time: 30 Total Billed Treatment 1GT20m,EX10m NICOL LAY MILEAGE CLERK Oct 27, 2020 14:10
[2020-10-27 18:33] VITALS: BP 101/51
[2020-10-27] MEDS: MELATONIN 10 MG TABLET PO PRN (21:12)
[2020-10-28] MEDS: RT-ALBUTEROL INHALER HFA (VENTOLIN HFA) 18 GM IH SCH ×5 (03:53→18:26)
--- NOTE | 2020-10-28 04:46 | NUR ---
Pt had been off O2 at the beginning of this shift. O2 sats 93% on room air. Spot checked pulse ox all night. Only time pt dropped below 90% was when pt ambulated to bathroom and back. O2 sat with CPAP on without O2 was 85%. O2 at 3L/NC bled into CPAP and O2 sats quickly ash to 92%. Cont to monitor.
[2020-10-28 05:06] VITALS: BP 129/63
[2020-10-28] MEDS: inSUlin ASPART (NovoLOG) 1 UNIT/0.01 ML (CHARGE PER UNIT) SC SCH ×4 (05:42→20:54)
--- NOTE | 2020-10-28 06:00 | PM&R Progress Note ---
Subjective HPI/CC On Admission Date Seen by Provider: Oct 28, 2020 Time Seen by Provider: 08:30 Subjective/Events-last exam 10/28/20: Pt now on 2 L of oxygen Off oxygen she runs 87% Improved buttock pressure sores Coughing a lot now Currently in the shower 10/27/20: Potassium 3.2, will double her potassium and take it with meals Pushing herself a little bit too much, becoming hypoxic Maintain on 3 L of oxygen 10/26/20: BM yesterday 3L/min O2 continuous 95% at night with CPAP with O2 10/25/20: Now on 3 liters but required 5L/min when she was working with PT 70% sats do occur when desats CPAP will be brought in by today and will bleed O2 into it O2 down to 3.5L/min Desats with activity Potassium 3.3 will start supplement No pain reported Checked meds and labs No wheezing Reviewed therapy notes Review of Systems General: Fatigue Pulmonary: Dyspnea Objective Exam Vital Signs Vital Signs Date Time Temp Pulse Resp B/P (MAP) Pulse Ox O2 Delivery O2 Flow Rate FiO2 10/29/20 05:14 35.8 104 20 119/62 (81) 92 NIV Bilevel 2.00 Capillary Refill : Less Than 3 Seconds General Appearance: No Apparent Distress, WD/WN, Chronically ill, Obese HEENT: PERRL/EOMI, Normal ENT Inspection, Pharynx Normal Neck: Full Range of Motion, Normal Inspection, Non Tender, Supple, Carotid Bruit Respiratory: Chest Non Tender, Lungs Clear, No Accessory Muscle Use, No Respiratory Distress, Decreased Breath Sounds Cardiovascular: Regular Rate, Rhythm, No Edema, No Gallop, No JVD, No Murmur, Normal Peripheral Pulses Gastrointestinal: Normal Bowel Sounds, No Organomegaly, No Pulsatile Mass, Non Tender, Soft Back: Normal Inspection, No CVA Tenderness, No Vertebral Tenderness Extremity: Normal Capillary Refill, Normal Inspection, Normal Range of Motion, Non Tender, No Calf Tenderness, No Pedal Edema Neurologic/Psychiatric: Alert, Oriented x3, No Motor/Sensory Deficits, Normal Mood/Affect, outboard motor tester II-XII Norm as Tested, Motor Weakness (generalized weakness 3/5 all extremities) Skin: Normal Color, Warm/Dry Lymphatic: No Adenopathy Results/Procedures Lab Patient resulted labs reviewed. FIM Transfers Therapy Code Descriptions/Definitions Functional [place] Measure: 0=Not Assessed/NA 4=Minimal Assistance 1=Total Assistance 5=Supervision or Setup 2=Maximal Assistance 6=Modified [place] 3=Moderate Assistance 7=Complete IndependenceSCALE: Activities may be completed with or without assistive devices. 5-Ltxrauogkk-lpwtluq completes the activity by him/herself with no assistance from a helper. 5-Set-up or Clean-up Assistance-helper sets up or cleans up; patient completes activity. [place] assists only prior to or following the activity. 4-Supervision or Touching Assistance-helper provides verbal cues and/or touching/steadying and/or contact guard assistance as patient completes activity. Assistance may be provided throughout the activity or intermittently. 3-Partial/Moderate Assistance-helper does LESS THAN HALF the effort. [place] li fts, holds or supports trunk or limbs, but provides less than half the effort. 2-Substantial/Maximal Assistance-helper does MORE THAN HALF the effort. [place] lifts or holds trunk or limbs and provides more than half the effort. 0-Tesldidru-jzgxka does ALL the effort. Patient does none of the effort to complete the activity. Or, the assistance of 2 or more helpers is required for the patient to complete the activity. If activity was not attempted, code reason: 7-Patient Refused. 9-Not Applicable-not attempted and the patient did not perform the activity before the current illness, exacerbation or injury. 10-Not Attempted due to Environmental Limitations-(lack of equipment, weather restraints, etc.). 88-Not Attempted due to Medical Conditions or Safety Concerns. Roll Left to Right (QC): 6 Sit to Lying (QC): 6 Sit to Stand (QC): 6 Chair/Wsm-vs-Msoxm Xfer(QC): 6 Car Transfer (QC): 4 Gait Training Does the Patient Walk?: Yes Distance: x 125 ft, x 75 ft Walk 10 feet (QC): 4 Walk 50 ft with 2 Turns(QC): 4 Walk 150 ft (QC): 4 Walking 10ft/uneven surface-QC: 4 Gait Persons Needed: 1 Gait Assistive Device: FWW Wheelchair Training Wheel 50 ft with 2 turns (QC): 9 Wheel 150 ft (QC): 9 Stair Training Stair Training: Handrails/: uses walker #of Steps: 1 1 Step (curb) (QC): 4 4 Steps (QC): 88 12 Steps (QC): 88 Stairs: Pattern: Step to Balance Picking up an Object (QC): 4 ADL-Treatment Eating (QC): 6 (Pt reports independent with eating breakfast.) Oral Hygiene (QC): 6 (IND seated at sink.) Shower/Bathe Self (QC): 4 (CGA during stand at GBs, frequent verbal cues for rest breaks.) Upper Body Dressing (QC): 5 (set up, pt able to doff/don roll over press operator shirt and manage O2) Lower Body Dressing (QC): 4 (CGA, pt able to thread pants and complete pant hike) On/Off Footwear (QC): 4 (SBA, cues to rest due to SOB) Toileting Hygiene (QC): 6 (IND with managing clothing and hygiene.) Toilet Transfer (QC): 6 (IND on/off toilet.) Assessment/Plan Assessment and Plan Assess & Plan/Chief Complaint Assessment: COVID-19 PNA critical illness myopathy Acute PE Myasthenia gravis Rheumatoid arthritis HTN HLP Asthma Obesity RALPH on CPAP Allergies DM Hypokalemia Plan: Prednisone MOnitor sugar O2 wean IRF protocol OAC 10/24/20: Monitor O2 IRF protocol Improved status Replace potassium 10/25/20: Continue O2 and wean but desats quickly with activity Monitor closely 10/26/20: Maintain O2 CPAP at night CHeck labs in am Potassium supplement 10/27/20: Increase potassium Manage intensity to prevent hypoxia 10/28/20: Wean O2 Monitor closely Potassium supp (1) COVID-19 Status: Acute (2) Status asthmaticus Status: Resolved Resolution Date/Time: 01/08/19 @ 09:56 (3) Hypertension Status: Chronic (4) Hypothyroidism Status: Chronic (5) Diabetes mellitus Status: Chronic (6) Rheumatoid arthritis Status: Chronic (7) Pulmonary embolism Status: Acute (8) Hypoxia Status: Acute (9) Myasthenia gravis FABIENNE ZAMORA DO Oct 28, 2020 06:00
[2020-10-28] MEDS: LEVOTHYROXINE 50 MCG (LEVOTHROID) TAB PO SCH (06:15)
[2020-10-28] MEDS: predniSONE 10 MG TAB PO SCH (06:16)
--- NOTE | 2020-10-28 06:36 | NUR ---
Checked O2 sat on room air while pt sitting up in recliner. O2 sat 87%. O1 Addendum: 10/28/20 at 0637 by JULISA VERAS RN O2 back on at 2L/NC.
--- NOTE | 2020-10-28 06:37 | NUR ---
O2 sat on 2L/nc 91-93%
[2020-10-28 08:00] VITALS: BP 121/60
[2020-10-28] MEDS: PANTOPRAZOLE 40 MG (PROTONIX) TAB PO SCH (08:18)
[2020-10-28] MEDS: APIXABAN 5 MG (ELIQUIS) TABLET PO SCH ×2 (08:18→20:46)
[2020-10-28] MEDS: CALCIUM CARB + VIT D 600 MG (CALCARB + D) TAB PO SCH ×2 (08:18→17:38)
[2020-10-28] MEDS: KCL 10 MEQ TAB (MICRO K) PO SCH ×3 (08:18→17:39)
[2020-10-28] MEDS: TRIAMTERENE/HCTZ 75-50 (MAXZIDE,DYAZIDE) TABLET PO SCH (08:19)
[2020-10-28] MEDS: MONTELUKAST 10 MG (SINGULAIR) TAB PO SCH (08:19)
[2020-10-28] MEDS: LOSARTAN 50 MG (COZAAR) TAB PO SCH (08:19)
[2020-10-28] MEDS: LORATADINE (CLARITIN) 10 MG TAB PO SCH (08:19)
[2020-10-28] MEDS: NYSTATIN ORAL SUSP 5 ML UDC PO SCH ×4 (08:20→20:46)
[2020-10-28] MEDS: ADVAIR HFA 115/21 MCG INHALER 8 GM IH SCH ×2 (08:25→09:43)
[2020-10-28] MEDS: UMECLIDINIUM BROMIDE (INCRUSE ELLIPTA) 7'S IH SCH ×2 (08:25→09:43)
[2020-10-28] MEDS: SENNA W/DOCUSATE (SENOKOT S) TABLET PO SCH ×2 (08:26→19:25)
[2020-10-28] MEDS: DOCUSATE SODIUM 100 MG (COLACE) CAP PO SCH ×2 (08:26→19:25)
[2020-10-28] MEDS: polyethylene glycoL POWDER 17 GM (MIRALAX) PACK PO SCH ×2 (08:26→19:25)
[2020-10-28] MEDS: MICONAZOLE 2% POWDER (DESENEX AF) 90 GM TOP SCH ×2 (08:27→20:48)
[2020-10-28] MEDS: NYSTATIN CREAM (MYCOSTATIN) 30 GM TUBE TP SCH ×3 (08:27→20:48)
--- NOTE | 2020-10-28 10:06 | Occupational Ther Daily Note ---
OT Current Status-Daily Note Subjective Pt seen in room, up in recliner, agreeable to OT. No pain mentioned. Appearance Alert and cooperative. Hopeful to go home soon and reported will be there starting . Mental Status/Objective Patient Orientation: Person, Place, Time, Situation Attachments: Oxygen (2-3 L), Saline Lock ADL-Treatment Pt's O2 sat at rest at beginning of tx was around 93% on 2L/min nc O2. During shower sats dropped to around 85% and came back up after a minute, also with pursed lip breathing. Pt's lips become blanched and her breathing becomes labored when sats are dropping. O2 increased to 3L/min with nursing direction during shower and subsequent ADLs. While standing at sink, sats dropped to 85% and went back up when pt sat for a brief recovery period. Cues needed at times to take recovery break. When walking to table in commons area, sats dropped to 75% but did recover when she was sitting. While doing bilat UE activity, they increased to 99%. After walking back to room, sats were 95% on 3L/min. Pt education on listening to body to know when to take a recovery break. Also provided pt with handout on energy conservation and talked about pacing activities and resting before she gets too tired (verbal understanding). Pt got up from recliner without help and walked to bathroom SBA, FWW. Toileted mod I, including managing clothing and hygiene. Toilet transfer mod I on tall toilet with grab bar. Shower transfer SBA to get in/out of shower but mod I getting on/off shower bench. Used grab bars, shower bench, hand held shower. Washed and dried all parts except back, turning water on/off and retrieving tow el, mod I. Redness under breasts and under tummy fold reported to nursing. Dressed upper and lower body and slipper socks with setup, FWW. Becomes SOB with bending to put on socks. Stood at sink to brush teeth with SBA, completing task seated. Brushed hair mod I. Pt reported that she continues to be able to feed herself. Therapy Code Descriptions/Definitions Functional [place] Measure: 0=Not Assessed/NA 4=Minimal Assistance 1=Total Assistance 5=Supervision or Setup 2=Maximal Assistance 6=Modified [place] 3=Moderate Assistance 7=Complete IndependenceSCALE: Activities may be completed with or without assistive devices. 8-Remmghxvdp-apkeslm completes the activity by him/herself with no assistance from a helper. 5-Set-up or Clean-up Assistance-helper sets up or cleans up; patient completes activity. [place] assists only prior to or following the activity. 4-Supervision or Touching Assistance-helper provides verbal cues and/or touching/steadying and/or contact guard assistance as patient completes activity. Assistance may be provided throughout the activity or intermittently. 3-Partial/Moderate Assistance-helper does LESS THAN HALF the effort. [place] lifts, holds or supports trunk or limbs, but provides less than half the effort. 2-Substantial/Maximal Assistance-helper does MORE THAN HALF the effort. [place] lifts or holds trunk or limbs and provides more than half the effort. 6-Kpllzlamw-ftmxdd does ALL the effort. Patient does none of the effort to complete the activity. Or, the assistance of 2 or more helpers is required for the patient to complete the activity. If activity was not attempted, code reason: 7-Patient Refused. 9-Not Applicable-not attempted and the patient did not perform the activity before the current illness, exacerbation or injury. 10-Not Attempted due to Environmental Limitations-(lack of equipment, weather restraints, etc.). 88-Not Attempted due to Medical Conditions or Safety Concerns. Eating (QC): 6 Oral Hygiene (QC): 4 (SBA) Shower/Bathe Self (QC): 6 Upper Body Dressing (QC): 5 (setup) Lower Body Dressing (QC): 5 (setup) On/Off Footwear: 5 (setup) Toileting Hygiene (QC): 6 Toilet Transfer (QC): 6 Other Treatment Pt walked to commons area and participated in bilateral nuts/bolts activity to increase activity tolerance as needed for ADLs and functional mobility. O2 sats increased to 99%. Pt walked back to room and was left up in recliner, legs elevated, all needs met, O2 at 3L/min. Pt satisfied with progress noted today. Education OT Patient Education: Energy conservation, Progress toward Goal/Update tx plan, Purpose of tx/functional activities, Safety issues Teaching Recipient: Patient Teaching Methods: Demonstration, Discussion Response to Teaching: Verbalize Understanding, Return Demonstration OT Nursing Home Goals [facility] Nurse Goals Time Frame: Nov 13, 2020 Eating (QC): 6 Oral Hygiene (QC): 6 Toileting Hygiene (QC): 6 Shower/Bathe Self (QC): 6 Upper Body Dressing (QC): 6 Lower Body Dressing (QC): 6 On/Off Footwear (QC): 6 Additional Goals: 1-Demonstrate ADL Tasks, 2-Verbalize Understanding, 3- ImproveStrength/[place] 1=Demonstrate adherence to instructed precautions during ADL tasks. 2=Patient will verbalize/demonstrate understanding of assistive devices/modifications for ADL. 3=Patient will improve strength/tolerance for activity to enable patient to perform ADL's. OT Education/Plan Discharge Recommendations Plan/Recommendations: Continue POC Treatment Plan/Plan of Care Patient would benefit from OT for education, treatment and training to promote independence in ADL's, mobility, safety and/or upper extremity function for ADL's. Plan of Care: ADL Retraining, Functional Mobility, Group Exercise/Act as Ind, UE Funct Exercise/Act Treatment Duration: Nov 13, 2020 Frequency: At least 5 of 7 days/Wk (IRF) Estimated Hrs Per Day: 1.5 hours per day Agreement: Yes Rehab Potential: Fair Time/GCodes Start Time: 08:15 Stop Time: 09:45 Total Time Billed (hr/min): 90 Billed Treatment Time visit, 75 minutes ADL, 15 minutes exercise JAREN MORGAN OT Oct 28, 2020 10:05
--- NOTE | 2020-10-28 11:08 | Physical Therapy Daily Note ---
PT Daily Note-Current Subjective Pt sitting in recliner upon arrival. Pt agrees to PT. Pain Location: No Pain Reported Mental Status Patient Orientation: Person, Place, Time, Situation Attachments: Oxygen (3L) Transfers SCALE: Activities may be completed with or without assistive devices. 1-Hrbcfiuvsx-hjntqrk completes the activity by him/herself with no assistance from a helper. 5-Set-up or Clean-up Assistance-helper sets up or cleans up; patient completes activity. [place] assists only prior to or following the activity. 4-Supervision or Touching Assistance-helper provides verbal cues and/or touching/steadying and/or contact guard assistance as patient completes activity. Assistance may be provided throughout the activity or intermittently. 3-Partial/Moderate Assistance-helper does LESS THAN HALF the effort. [place] lifts, holds or supports trunk or limbs, but provides less than half the effort. 2-Substantial/Maximal Assistance-helper does MORE THAN HALF the effort. [place] lifts or holds trunk or limbs and provides more than half the effort. 0-Lbzgalgzn-jdhiox does ALL the effort. Patient does none of the effort to complete the activity. Or, the assistance of 2 or more helpers is required for the patient to complete the activity. If activity was not attempted, code reason: 7-Patient Refused. 9-Not Applicable-not attempted and the patient did not perform the activity before the current illness, exacerbation or injury. 10-Not Attempted due to Environmental Limitations-(lack of equipment, weather restraints, etc.). 88-Not Attempted due to Medical Conditions or Safety Concerns. Sit to Stand (QC): 6 Toilet Transfer (QC): 6 Car Transfer (QC): 6 Weight Bearing Full Weight Bearing Full Weight Bearing Gait Training Does the Patient Walk?: Yes Distance: 150' x2 Walk 10 feet (QC): 6 Walk 50 ft with 2 Turns(QC): 6 Walk 150 ft (QC): 6 Walking 10ft/uneven surface-QC: 6 Gait Persons Needed: 1 Gait Assistive Device: FWW Wheelchair Training Does the Pt Use a Wheelchair?: No Stair Training Stair Training: Handrails/: 2 handrails #of Steps: 4 1 Step (curb) (QC): 6 4 Steps (QC): 6 12 Steps (QC): 7 Stairs: Pattern: Step to Exercises Seated Therapy Exercises: Ankle pumps, Long arc quads, Hip flexion, Kicking activity, Hip abd/add Seated Reps: 15 NuStep Minutes: 15 NuStep Workload: 4 Treatments Pt completes QC scoring items listed above, bed mobility will be tested in afternoon tx. Pt also uses NuStep and completes Seated Ex. Pt returns to room to rest in recliner at end of tx. All needs met, call light in hand. Assessment Current Status: Good Progress Pt is anxious to get home but has made improvements with strength and mobility. PT Short Term Goals Short Term Goals Time Frame: Oct 30, 2020 Roll Left & Right: 6 Sit to lyin Lying to sitting on side of be: 6 Sit to stand: 4 Chair/mru-lx-jvnpy transfer: 4 Walk 10 feet: 4 Walk 50 feet with two turns: 4 Walk 150 feet: 4 PT Prison Goals Instrument Assembly Supervisor Goals PT Instrument Assembly Supervisor Goals Time Frame: Nov 13, 2020 Roll Left & Right (QC): 6 Sit to Lying (QC): 6 Lying-Sitting on Side/Bed(QC): 6 Sit to Stand (QC): 6 Chair/Kwu-av-Uhvpm Xfer(QC): 6 Toilet Transfer (QC): 6 Car Transfer (QC): 6 Does the Patient Walk: Yes Walk 10 feet (QC): 6 Walk 50ft with 2 Turns (QC): 6 Walk 150 ft (QC): 6 Walking 10ft on Uneven Surface: 6 1 Step (curb) (QC): 5 4 Steps (QC): 5 12 Steps (QC): 88 Picking up an Object (QC): 6 Wheel 50 feet with 2 turns (QC: 9 Wheel 150 feet: 9 PT Plan Problem List Problem List: Activity Tolerance Treatment/Plan Treatment Plan: Continue Plan of Care Treatment Plan: Bed Mobility, Education, Functional Activity [place], Functional Strength, Group Therapy, Gait, Safety, Therapeutic Exercise, Transfers Treatment Duration: Nov 13, 2020 Frequency: At least 5 of 7 days/Wk (IRF) Estimated Hrs Per Day: 1.5 hours per day Patient and/or Family Agrees t: Yes Safety Risks/Education Patient Education: Safety Issues Teaching Recipient: Patient Teaching Methods: Discussion Response to Teaching: Verbalize Understanding Time/GCodes Time In: 1000 Time Out: 1100 Total Billed Treatment Time: 60 Total Billed Treatment 1, GT (20m), EX x2 (25m) & FA (15m) LISA SHEN FIELD [employer]OP FARM WORKER Oct 28, 2020 11:08
--- NOTE | 2020-10-28 14:00 | NUR ---
VERY SOB WITH EXERTION, BUT TOLERATING ACTIVITY WELL. RASH ON BACK MUCH IMPROVED. UP IN CHAIR ALL DAY.
--- NOTE | 2020-10-28 14:38 | Physical Therapy Daily Note ---
PT Daily Note-Current Subjective Pt returning from [place] upon arrival. Nurse is present. Pt agrees to PT. Pain Location: No Pain Reported Mental Status Patient Orientation: Person, Place, Situation Attachments: Oxygen (3L) Transfers SCALE: Activities may be completed with or without assistive devices. 2-Mriatlthnw-htdfnsz completes the activity by him/herself with no assistance from a helper. 5-Set-up or Clean-up Assistance-helper sets up or cleans up; patient completes activity. [place] assists only prior to or following the activity. 4-Supervision or Touching Assistance-helper provides verbal cues and/or touching/steadying and/or contact guard assistance as patient completes activity. Assistance may be provided throughout the activity or intermittently. 3-Partial/Moderate Assistance-helper does LESS THAN HALF the effort. [place] lifts, holds or supports trunk or limbs, but provides less than half the effort. 2-Substantial/Maximal Assistance-helper does MORE THAN HALF the effort. [place] lifts or holds trunk or limbs and provides more than half the effort. 9-Msvkjodld-okruei does ALL the effort. Patient does none of the effort to complete the activity. Or, the assistance of 2 or more helpers is required for the patient to complete the activity. If activity was not attempted, code reason: 7-Patient Refused. 9-Not Applicable-not attempted and the patient did not perform the activity before the current illness, exacerbation or injury. 10-Not Attempted due to Environmental Limitations-(lack of equipment, weather restraints, etc.). 88-Not Attempted due to Medical Conditions or Safety Concerns. Roll Left & Right (QC): 6 Sit to Lying (QC): 5 Lying to Sitting/Side of Bed(Q: 5 Sit to Stand (QC): 6 Weight Bearing Full Weight Bearing Full Weight Bearing Gait Training Does the Patient Walk?: Yes Distance: 15' x2 Walk 10 feet (QC): 6 Gait Assistive Device: FWW Pt focused on management of O2 line independently (while connected to wall). Wheelchair Training Does the Pt Use a Wheelchair?: No Treatments Pt finished QC scoring with bed mobility. Pt ambulated with focus on O2 management. Reviewed written HEP given to pt. All needs met, call light in hand. Assessment Current Status: Good Progress Pt fatigues and needs recovery break. PT Short Term Goals Short Term Goals Time Frame: Oct 30, 2020 Roll Left & Right: 6 Sit to lyin Lying to sitting on side of be: 6 Sit to stand: 4 Chair/pul-ee-splkf transfer: 4 Walk 10 feet: 4 Walk 50 feet with two turns: 4 Walk 150 feet: 4 PT Feed Mixer Goals Halfway Goals PT Feed Mixer Goals Time Frame: Nov 13, 2020 Roll Left & Right (QC): 6 Sit to Lying (QC): 6 Lying-Sitting on Side/Bed(QC): 6 Sit to Stand (QC): 6 Chair/Fwv-xq-Ezylw Xfer(QC): 6 Toilet Transfer (QC): 6 Car Transfer (QC): 6 Does the Patient Walk: Yes Walk 10 feet (QC): 6 Walk 50ft with 2 Turns (QC): 6 Walk 150 ft (QC): 6 Walking 10ft on Uneven Surface: 6 1 Step (curb) (QC): 5 4 Steps (QC): 5 12 Steps (QC): 88 Picking up an Object (QC): 6 Wheel 50 feet with 2 turns (QC: 9 Wheel 150 feet: 9 PT Plan Problem List Problem List: Activity Tolerance Treatment/Plan Treatment Plan: Continue Plan of Care Treatment Plan: Bed Mobility, Education, Functional Activity [place], Functional Strength, Group Therapy, Gait, Safety, Therapeutic Exercise, Transfers Treatment Duration: Nov 13, 2020 Frequency: At least 5 of 7 days/Wk (IRF) Estimated Hrs Per Day: 1.5 hours per day Patient and/or Family Agrees t: Yes Safety Risks/Education Patient Education: Issued Written HEP, Safety Issues Teaching Recipient: Patient Teaching Methods: Discussion Response to Teaching: Verbalize Understanding Time/GCodes Time In: 1300 Time Out: 1330 Total Billed Treatment Time: 30 Total Billed Treatment 1, FA (15m) & Ex (15m) LISA SHEN ACCOUNT EXECUTIVE TRAINEE Oct 28, 2020 14:38
[2020-10-28] MEDS ORDERED: CATHETER FLUSH 10 ML SYR IV PRN (16:45)
[2020-10-28 17:17] VITALS: BP 109/52
[2020-10-28] MEDS: MELATONIN 10 MG TABLET PO PRN (20:46)
[2020-10-28] MEDS: CATHETER FLUSH 10 ML SYR IV SCH (20:48)
[2020-10-29] MEDS: RT-ALBUTEROL INHALER HFA (VENTOLIN HFA) 18 GM IH SCH ×2 (03:38→08:30)
[2020-10-29 05:14] VITALS: BP 119/62
[2020-10-29] MEDS: CATHETER FLUSH 10 ML SYR IV SCH (05:55)
[2020-10-29] MEDS: LEVOTHYROXINE 50 MCG (LEVOTHROID) TAB PO SCH (05:55)
[2020-10-29] MEDS: predniSONE 10 MG TAB PO SCH (05:55)
[2020-10-29] MEDS: inSUlin ASPART (NovoLOG) 1 UNIT/0.01 ML (CHARGE PER UNIT) SC SCH ×2 (05:56→11:58)
[2020-10-29] MEDS: CALCIUM CARB + VIT D 600 MG (CALCARB + D) TAB PO SCH (08:28)
[2020-10-29] MEDS: ADVAIR HFA 115/21 MCG INHALER 8 GM IH SCH (08:28)
[2020-10-29] MEDS: UMECLIDINIUM BROMIDE (INCRUSE ELLIPTA) 7'S IH SCH (08:28)
[2020-10-29] MEDS: LORATADINE (CLARITIN) 10 MG TAB PO SCH (08:29)
[2020-10-29] MEDS: LOSARTAN 50 MG (COZAAR) TAB PO SCH (08:29)
[2020-10-29] MEDS: TRIAMTERENE/HCTZ 75-50 (MAXZIDE,DYAZIDE) TABLET PO SCH (08:29)
[2020-10-29] MEDS: MONTELUKAST 10 MG (SINGULAIR) TAB PO SCH (08:29)
[2020-10-29] MEDS: APIXABAN 5 MG (ELIQUIS) TABLET PO SCH (08:29)
[2020-10-29] MEDS: NYSTATIN ORAL SUSP 5 ML UDC PO SCH ×2 (08:36→13:23)
[2020-10-29] MEDS: KCL 10 MEQ TAB (MICRO K) PO SCH ×2 (08:36→13:23)
[2020-10-29] MEDS: PANTOPRAZOLE 40 MG (PROTONIX) TAB PO SCH (08:36)
--- NOTE | 2020-10-29 08:41 | PM&R Progress Note ---
Subjective HPI/CC On Admission Date Seen by Provider: Oct 29, 2020 Time Seen by Provider: 08:45 Subjective/Events-last exam 10/28/20: Pt now on 2 L of oxygen Off oxygen she runs 87% Improved buttock pressure sores Coughing a lot now Currently in the shower 10/27/20: Potassium 3.2, will double her potassium and take it with meals Pushing herself a little bit too much, becoming hypoxic Maintain on 3 L of oxygen 10/26/20: BM yesterday 3L/min O2 continuous 95% at night with CPAP with O2 10/25/20: Now on 3 liters but required 5L/min when she was working with PT 70% sats do occur when desats CPAP will be brought in by today and will bleed O2 into it O2 down to 3.5L/min Desats with activity Potassium 3.3 will start supplement No pain reported Checked meds and labs No wheezing Reviewed therapy notes Objective Exam Vital Signs Vital Signs Date Time Temp Pulse Resp B/P (MAP) Pulse Ox O2 Delivery O2 Flow Rate FiO2 10/29/20 05:14 35.8 104 20 119/62 (81) 92 NIV Bilevel 2.00 Capillary Refill : Less Than 3 Seconds General Appearance: No Apparent Distress, WD/WN, Chronically ill, Obese HEENT: PERRL/EOMI, Normal ENT Inspection, Pharynx Normal Neck: Full Range of Motion, Normal Inspection, Non Tender, Supple, Carotid Bruit Respiratory: Chest Non Tender, Lungs Clear, No Accessory Muscle Use, No Respiratory Distress, Decreased Breath Sounds Cardiovascular: Regular Rate, Rhythm, No Edema, No Gallop, No JVD, No Murmur, Normal Peripheral Pulses Gastrointestinal: Normal Bowel Sounds, No Organomegaly, No Pulsatile Mass, Non Tender, Soft Back: Normal Inspection, No CVA Tenderness, No Vertebral Tenderness Extremity: Normal Capillary Refill, Normal Inspection, Normal Range of Motion, Non Tender, No Calf Tenderness, No Pedal Edema Neurologic/Psychiatric: Alert, Oriented x3, No Motor/Sensory Deficits, Normal Mood/Affect, auto 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 FIM Transfers Therapy Code Descriptions/Definitions Functional [place] Measure: 0=Not Assessed/NA 4=Minimal Assistance 1=Total Assistance 5=Supervision or Setup 2=Maximal Assistance 6=Modified [place] 3=Moderate Assistance 7=Complete IndependenceSCALE: Activities may be completed with or without assistive devices. 1-Arjxsenrni-gkhbefr completes the activity by him/herself with no assistance from a helper. 5-Set-up or Clean-up Assistance-helper sets up or cleans up; patient completes activity. [place] assists only prior to or following the activity. 4-Supervision or Touching Assistance-helper provides verbal cues and/or touching/steadying and/or contact guard assistance as patient completes activity. Assistance may be provided throughout the activity or intermittently. 3-Partial/Moderate Assistance-helper does LESS THAN HALF the effort. [place] lifts, holds or supports trunk or limbs, but provides less than half the effort. 2-Substantial/Maximal Assistance-helper does MORE THAN HALF the effort. [place] lifts or holds trunk or limbs and provides more than half the effort. 9-Gntuqyynr-jnepqn does ALL the effort. Patient does none of the effort to complete the activity. Or, the assistance of 2 or more helpers is required for the patient to complete the activity. If activity was not attempted, code reason: 7-Patient Refused. 9-Not Applicable-not attempted and the patient did not perform the activity before the current illness, exacerbation or injury. 10-Not Attempted due to Environmental Limitations-(lack of equipment, weather restraints, etc.). 88-Not Attempted due to Medical Conditions or Safety Concerns. Roll Left to Right (QC): 6 Sit to Lying (QC): 5 Sit to Stand (QC): 6 Chair/Hfk-dg-Usnli Xfer(QC): 6 Car Transfer (QC): 6 Gait Training Does the Patient Walk?: Yes Distance: 15' x2 Walk 10 feet (QC): 6 Walk 50 ft with 2 Turns(QC): 6 Walk 150 ft (QC): 6 Walking 10ft/uneven surface-QC: 6 Gait Persons Needed: 1 Gait Assistive Device: FWW Wheelchair Training Does the Pt Use a Wheelchair?: No Wheel 50 ft with 2 turns (QC): 9 Wheel 150 ft (QC): 9 Stair Training Stair Training: Handrails/: 2 handrails #of Steps: 4 1 Step (curb) (QC): 6 4 Steps (QC): 6 12 Steps (QC): 7 Stairs: Pattern: Step to Balance Picking up an Object (QC): 4 ADL-Treatment Eating (QC): 6 Oral Hygiene (QC): 4 (SBA) Shower/Bathe Self (QC): 6 Upper Body Dressing (QC): 5 (setup) Lower Body Dressing (QC): 5 (setup) On/Off Footwear (QC): 5 (setup) Toileting Hygiene (QC): 6 Toilet Transfer (QC): 6 Assessment/Plan Assessment and Plan Assess & Plan/Chief Complaint Assessment: COVID-19 PNA critical illness myopathy Acute PE Myasthenia gravis Rheumatoid arthritis HTN HLP Asthma Obesity RALPH on CPAP Allergies DM Hypokalemia Plan: Prednisone MOnitor sugar O2 wean IRF protocol OAC 10/24/20: Monitor O2 IRF protocol Improved status Replace potassium 10/25/20: Continue O2 and wean but desats quickly with activity Monitor closely 10/26/20: Maintain O2 CPAP at night CHeck labs in am Potassium supplement 10/27/20: Increase potassium Manage intensity to prevent hypoxia 10/28/20: Wean O2 Monitor closely Potassium supp (1) COVID-19 Status: Acute (2) Status asthmaticus Status: Resolved Resolution Date/Time: 01/08/19 @ 09:56 (3) Hypertension Status: Chronic (4) Hypothyroidism Status: Chronic (5) Diabetes mellitus Status: Chronic (6) Rheumatoid arthritis Status: Chronic (7) Pulmonary embolism Status: Acute (8) Hypoxia Status: Acute (9) Myasthenia gravis FABIENNE ZAMORA DO Oct 29, 2020 08:41
[2020-10-29] MEDS ORDERED: GUAI473L29 PO (08:50)
[2020-10-29] MEDS ORDERED: POTA20TA15 PO (08:50)
[2020-10-29] MEDS ORDERED: APIX5TAB PO (08:50)
[2020-10-29] MEDS ORDERED: ALPR0.5T7 PO (08:50)
[2020-10-29] MEDS ORDERED: NYST1000 PO (08:50)
--- NOTE | 2020-10-29 08:52 | D/C HH Face to Face Order ---
D/C Face to Face Orders Reconcile Patient Problems Problems Reviewed?: Yes Instructions for Patient Via [facility], Patient Instructions/FollowUp: Dr Jimenez in 1 week Physician to follow Patient: Tony Discharge Diet for Home: ADA Diet Patient Problems: COVID-19 RALPH DM New O2 Patient Data-Allergies,Ht & Wt Patient Allergies: Coded Allergies: adhesive tape (Verified Allergy, Intermediate, 02/21/20) BLISTERS AND RAW SKIN amlodipine (Verified Allergy, Unknown, 02/22/13) erythromycin base (Verified Allergy, Unknown, 02/22/13) Uncoded Allergies: ALMONDS (Adverse Reaction, Mild, 02/22/20) SHE HAS PAIN ALL OVER WHEN SHE EATS THEM Height (Feet): 5 Height (Inches): 6.00 Weight (Pounds): 297 Weight (Ounces): 0.0 Home Health Need/Face to Face Date of Face to Face: Oct 29, 2020 Clinical Findings: Generalized weakness and fatigue, Instability, Muscle weakness, Shortness of breath, Unsteady gait I have seen Pt bthn-nz-rlso: Yes Discharged To: Home Diagnosis/Conditions: COVID-19 RALPH DM Patient is Homebound due to: [place]he[place] fall risk due to instabilty, Muscle weakness, Shortness of breath/distress Homebound Status Due to the above stated illness, injury or surgical procedure (medical condition or diagnosis) and associated clinical findings, the patient is homebound because of his/her inability to leave home except with aid of a supportive device and/or person AND leaving the home requires a considerable and taxing effort or is medically contraindicated. Pt req the following assistanc: Walker Home Health Nursing Orders Home Health Services Order: Nursing Services, [employer] Chief Creative Officer-Evaluate & Treat, Physical Therapy-Evaluate & Treat Certify Stmt I certify that this patient is under my care and that I, a nurse practitioner or a physician; a res habilitation assistant working with me, had a face to face encounter that - meets the physician face to face encounter requirements with this patient as dated. FABIENNE JIMENEZ DO Oct 29, 2020 08:52
--- NOTE | 2020-10-29 08:54 | Discharge Summary ---
Diagnosis/Chief Complaint Date of Admission Oct 23, 2020 at 10:05 Date of Discharge Discharge Date: Oct 29, 2020 Discharge Diagnosis Assessment: COVID-19 PNA critical illness myopathy Acute PE Myasthenia gravis Rheumatoid arthritis HTN HLP Asthma Obesity RALPH on CPAP Allergies DM Hypokalemia Plan: Prednisone MOnitor sugar O2 wean IRF protocol OAC 10/24/20: Monitor O2 IRF protocol Improved status Replace potassium 10/25/20: Continue O2 and wean but desats quickly with activity Monitor closely 10/26/20: Maintain O2 CPAP at night CHeck labs in am Potassium supplement 10/27/20: Increase potassium Manage intensity to prevent hypoxia 10/28/20: Wean O2 Monitor closely Potassium supp (1) COVID-19 Status: Acute (2) Status asthmaticus Status: Resolved Resolution Date/Time: 01/08/19 @ 09:56 (3) Hypertension Status: Chronic (4) Hypothyroidism Status: Chronic (5) Diabetes mellitus Status: Chronic (6) Rheumatoid arthritis Status: Chronic (7) Pulmonary embolism Status: Acute (8) Hypoxia Status: Acute (9) Myasthenia gravis Discharge Summary Discharge Physical Examination Allergies: Coded Allergies: adhesive tape (Verified Allergy, Intermediate, 02/21/20) BLISTERS AND RAW SKIN amlodipine (Verified Allergy, Unknown, 02/22/13) erythromycin base (Verified Allergy, Unknown, 02/22/13) Uncoded Allergies: ALMONDS (Adverse Reaction, Mild, 02/22/20) SHE HAS PAIN ALL OVER WHEN SHE EATS THEM Vitals & I&Os Vital Signs Date Time Temp Pulse Resp B/P (MAP) Pulse Ox O2 Delivery O2 Flow Rate FiO2 10/29/20 15:42 36.8 98 20 120/62 93 Nasal Cannula 2.00 General Appearance: Alert, Oriented X3, Cooperative Respiratory: Clear to Auscultation Cardiovascular: Regular Rate Neuro: Normal Gait, Normal Speech, Strength at 5/5 X4 Ext Hospital Course Was the Problem List Reviewed?: Yes Hospital Course: Pt had a short seven day hospital course in inpatient rehab after a three week hospital course due to Covid-19 pneumonia and hypoxia, maintained in the ICU for a total fo 10 days, maintained on Vapotherm. Overall she did very well. She responded to treatment and was able to titrate down off of Oxygen to 2 liters continuous. Home O2 evaluation was initiated. Home health was ordered for buttock excoriation and overall she did well and was discharged on Eliquis for pulmonary embolism in addition to her Prednisone 10mg for her myasthenia gravis and will be monitored closely for follow up in my clinic Labs (last 24 hrs) Laboratory Tests 10/23/20 11:13: Glucometer 156H 10/23/20 16:05: Glucometer 204H 10/23/20 21:28: Glucometer 196H 10/24/20 05:26: Glucometer 124H 10/24/20 05:40: White Blood Count 10.0, Red Blood Count 3.92, Hemoglobin 11.5, Hematocrit 36, Mean Corpuscular Volume 92, Mean Corpuscular Hemoglobin 29, Mean Corpuscular Hemoglobin Concent 32, Red Cell Distribution Width 14.4, Platelet Count 231, Mean Platelet Volume 10.6, Immature Granulocyte % (Auto) 2, Neutrophils (%) (Auto) 74, Lymphocytes (%) (Auto) 17, Monocytes (%) (Auto) 7, Eosinophils (%) (Auto) 1, Basophils (%) (Auto) 0, Neutrophils # (Auto) 7.3, Lymphocytes # (Auto) 1.7, Monocytes # (Auto) 0.7, Eosinophils # (Auto) 0.1, Basophils # (Auto) 0.0, Immature Granulocyte # (Auto) 0.2H, Sodium Level 136, Potassium Level 3.3L, Chloride Level 98, Carbon Dioxide Level 27, Anion Gap 11, Blood Urea Nitrogen 20H, Creatinine 0.82, Estimat Glomerular Filtration Rate > 60, BUN/Creatinine Ratio 24, Glucose Level 132H, Calcium Level 8.2L, Corrected Calcium 8.9, Total Bilirubin 0.8, Aspartate Amino Transf (AST/SGOT) 11, Alanine Aminotransferase (ALT/SGPT) 30, Alkaline Phosphatase 64, Total Protein 5.8L, Albumin 3.1L 10/24/20 11:11: Glucometer 180H 10/24/20 16:17: Glucometer 177H 10/24/20 21:27: Glucometer 200H 10/25/20 06:16: Glucometer 119H 10/25/20 10:39: Glucometer 183H 10/25/20 16:20: Glucometer 198H 10/25/20 20:40: Glucometer 192H 10/26/20 06:35: Glucometer 107 10/26/20 11:04: Glucometer 193H 10/26/20 15:51: Glucometer 153H 10/26/20 20:20: Glucometer 198H 10/27/20 04:35: White Blood Count 7.4, Red Blood Count 3.38L, Hemoglobin 10.0L, Hematocrit 32L, Mean Corpuscular Volume 95, Mean Corpuscular Hemoglobin 30, Mean Corpuscular Hemoglobin Concent 31L, Red Cell Distribution Width 14.7H, Platelet Count 181, Mean Platelet Volume 10.2, Immature Granulocyte % (Auto) 1, Neutrophils (%) (Auto) 66, Lymphocytes (%) (Auto) 23, Monocytes (%) (Auto) 7, Eosinophils (%) (Auto) 2, Basophils (%) (Auto) 0, Neutrophils # (Auto) 4.9, Lymphocytes # (Auto) 1.7, Monocytes # (Auto) 0.5, Eosinophils # (Auto) 0.2, Basophils # (Auto) 0.0, Immature Granulocyte # (Auto) 0.1, Sodium Level 142, Potassium Level 3.2L, Chloride Level 101, Carbon Dioxide Level 30, Anion Gap 11, Blood Urea Nitrogen 16, Creatinine 0.71, Estimat Glomerular Filtration Rate > 60, BUN/Creatinine Ratio 23, Glucose Level 124H, Calcium Level 8.2L, Corrected Calcium 9.1, Magnesium Level 1.8, Total Bilirubin 0.6, Aspartate Amino Transf (AST/SGOT) 10, Alanine Aminotransferase (ALT/SGPT) 28, Alkaline Phosphatase 59, Total Protein 5.3L, Albumin 2.9L 10/27/20 11:03: Glucometer 219H 10/27/20 16:54: Glucometer 159H 10/27/20 20:55: Glucometer 178H 10/28/20 05:21: Glucometer 126H 10/28/20 10:56: Glucometer 158H 10/28/20 15:59: Glucometer 170H 10/28/20 20:45: Glucometer 178H 10/29/20 05:55: Glucometer 129H 10/29/20 11:22: Glucometer 160H Pending Labs Laboratory Tests 10/23/20 11:13: Glucometer 156 10/23/20 16:05: Glucometer 204 10/23/20 21:28: Glucometer 196 10/24/20 05:26: Glucometer 124 10/24/20 05:40: White Blood Count 10.0, Red Blood Count 3.92, Hemoglobin 11.5, Hematocrit 36, Mean Corpuscular Volume 92, Mean Corpuscular Hemoglobin 29, Mean Corpuscular Hemoglobin Concent 32, Red Cell Distribution Width 14.4, Platelet Count 231, Mean Platelet Volume 10.6, Immature Granulocyte % (Auto) 2, Neutrophils (%) (Auto) 74, Lymphocytes (%) (Auto) 17, Monocytes (%) (Auto) 7, Eosinophils (%) (Auto) 1, Basophils (%) (Auto) 0, Neutrophils # (Auto) 7.3, Lymphocytes # (Auto) 1.7, Monocytes # (Auto) 0.7, Eosinophils # (Auto) 0.1, Basophils # (Auto) 0.0, Immature Granulocyte # (Auto) 0.2, Sodium Level 136, Potassium Level 3.3, Chloride Level 98, Carbon Dioxide Level 27, Anion Gap 11, Blood Urea Nitrogen 20, Creatinine 0.82, Estimat Glomerular Filtration Rate > 60, BUN/Creatinine Ratio 24, Glucose Level 132, Calcium Level 8.2, Corrected Calcium 8.9, Total Bilirubin 0.8, Aspartate Amino Transf (AST/SGOT) 11, Alanine Aminotransferase (ALT/SGPT) 30, Alkaline Phosphatase 64, Total Protein 5.8, Albumin 3.1 10/24/20 11:11: Glucometer 180 10/24/20 16:17: Glucometer 177 10/24/20 21:27: Glucometer 200 10/25/20 06:16: Glucometer 119 10/25/20 10:39: Glucometer 183 10/25/20 16:20: Glucometer 198 10/25/20 20:40: Glucometer 192 10/26/20 06:35: Glucometer 107 10/26/20 11:04: Glucometer 193 10/26/20 15:51: Glucometer 153 10/26/20 20:20: Glucometer 198 10/27/20 04:35: White Blood Count 7.4, Red Blood Count 3.38, Hemoglobin 10.0, Hematocrit 32, Mean Corpuscular Volume 95, Mean Corpuscular Hemoglobin 30, Mean Corpuscular Hemoglobin Concent 31, Red Cell Distribution Width 14.7, Platelet Count 181, Mean Platelet Volume 10.2, Immature Granulocyte % (Auto) 1, Neutrophils (%) (Auto) 66, Lymphocytes (%) (Auto) 23, Monocytes (%) (Auto) 7, Eosinophils (%) (Auto) 2, Basophils (%) (Auto) 0, Neutrophils # (Auto) 4.9, Lymphocytes # (Auto) 1.7, Monocytes # (Auto) 0.5, Eosinophils # (Auto) 0.2, Basophils # (Auto) 0.0, Immature Granulocyte # (Auto) 0.1, Sodium Level 142, Potassium Level 3.2, Chloride Level 101, Carbon Dioxide Level 30, Anion Gap 11, Blood Urea Nitrogen 16, Creatinine 0.71, Estimat Glomerular Filtration Rate > 60, BUN/Creatinine Ratio 23, Glucose Level 124, Calcium Level 8.2, Corrected Calcium 9.1, Magnesium Level 1.8, Total Bilirubin 0.6, Aspartate Amino Transf (AST/SGOT) 10, Alanine Aminotransferase (ALT/SGPT) 28, Alkaline Phosphatase 59, Total Protein 5.3, Albumin 2.9 10/27/20 11:03: Glucometer 219 10/27/20 16:54: Glucometer 159 10/27/20 20:55: Glucometer 178 10/28/20 05:21: Glucometer 126 10/28/20 10:56: Glucometer 158 10/28/20 15:59: Glucometer 170 10/28/20 20:45: Glucometer 178 10/29/20 05:55: Glucometer 129 10/29/20 11:22: Glucometer 160 Discharge Home Medications: Active Scripts Active Guaifenesin AC Cough Syrup (Guaifenesin/Codeine Phosphate) 473 Ml Liquid 5 Ml PO Q4H PRN Potassium Chloride 20 Meq Tab.er.prt 20 Meq PO BID Alprazolam 0.5 Mg Tablet 0.5 Mg PO Q3HR PRN Eliquis (Apixaban) 5 Mg Tablet 5 Mg PO BID Nystatin 100,000 Unit/1 Ml Oral.susp 5 Ml PO QID Reported All Day Allergy (Cetirizine HCl) 10 Mg Tablet 10 Mg PO DAILY Melatonin 5 Mg Tablet 5 Mg PO HS PRN Losartan Potassium 50 Mg Tablet 50 Mg PO DAILY Citalopram HBr (Citalopram Hydrobromide) 20 Mg Tablet 20 Mg PO HS Ondansetron Odt (Ondansetron) 8 Mg Tab.rapdis 8 Mg PO Q8H PRN Prednisone 10 Mg Tab 10 Mg PO DAILY Calcium 500 + Vit D 200 Caplet (Calcium Carbonate/Vitamin D3) 1 Each Tablet 1 Each PO BID Pantoprazole Sodium 40 Mg Tablet.dr 40 Mg PO DAILY Proair Hfa (Albuterol Sulfate) 1 Puff Puff 2 Puff INH Q4H PRN Atorvastatin Calcium 20 Mg Tablet 20 Mg PO DAILY Triamterene-Hctz 37.5-25 mg Cp (Triamterene/Hydrochlorothiazid) 1 Each Capsule 1 Cap PO DAILY 04-03-2020 #100/100 DAY SUPPLY Spiriva Respimat 1.25MCG/ACTUATION (Tiotropium [place]) 4 Gm Mist.inhal 2 Puff INH DAILY Breo Ellipta 200-25 Mcg INH (Fluticasone/Vilanterol) 1 Each Blst.w.dev 1 Puff INH DAILY Montelukast Sodium 10 Mg Tablet 10 Mg PO DAILY Clonidine HCl 0.1 Mg Tablet 0.1 Mg PO BID Levothyroxine Sodium 50 Mcg Tablet 50 Mcg PO DAILY Instructions to patient/family Please see electronic discharge instructions given to patient. Diagnosis/Problems Diagnosis/Problems (1) COVID-19 Status: Acute (2) Status asthmaticus Status: Resolved Resolution Date/Time: 01/08/19 @ 09:56 (3) Hypertension Status: Chronic (4) Hypothyroidism Status: Chronic (5) Diabetes mellitus Status: Chronic (6) Rheumatoid arthritis Status: Chronic (7) Pulmonary embolism Status: Acute (8) Hypoxia Status: Acute (9) Myasthenia gravis Clinical Quality Measures DVT/VTE Risk/Contraindication: Risk Factor Score Per Nursin RFS Level Per Nursing on Admit: 4+=Very High FABIENNE ZAMORA DO Oct 29, 2020 08:54
[2020-10-29] MEDS: polyethylene glycoL POWDER 17 GM (MIRALAX) PACK PO SCH (09:00)
[2020-10-29] MEDS: DOCUSATE SODIUM 100 MG (COLACE) CAP PO SCH (09:00)
[2020-10-29] MEDS: NYSTATIN CREAM (MYCOSTATIN) 30 GM TUBE TP SCH ×2 (09:00→13:23)
[2020-10-29] MEDS: SENNA W/DOCUSATE (SENOKOT S) TABLET PO SCH (09:00)
[2020-10-29] MEDS: MICONAZOLE 2% POWDER (DESENEX AF) 90 GM TOP SCH (09:00)
--- NOTE | 2020-10-29 09:14 | NUR ---
pt dropped to 87% after 1 minute of being off O2 while resting. pt placed back on 2L and saturations became adequate. Addendum: 10/29/20 at 0914 by ZELALEM SUTHERLAND RT Amended: Links added.
--- NOTE | 2020-10-29 09:21 | Therapy Team Discharge Summary ---
Therapy Discharge Summary Discharge Recommendations Date of Discharge 10-29-20 Therapy D/C Recommendations: Home w/ Family Support, Occupational Therapy Home Care Occupational Therapy Pt. has been seen by occupational therapy to increase overall strength and independence with daily tasks. Pt. doing well with 2 L 02 on. She is independent with daily tasks at this point, with use of walker. She is discharging home today. Would recommend home health OT to make sure pt. is safe in home, and has all needed equipment. Decreased Activ Tolerance PT Resident Care Associate Goals Resident Care Associate Goals PT [facility] Goals Time Frame: Nov 13, 2020 Roll Left to Right (QC): 6 Sit to Lying (QC): 6 Lying-Sitting on Side/Bed(QC): 6 Sit to Stand (QC): 6 Chair/Iyw-lp-Frmhg Xfer(QC): 6 Car Transfer (QC): 6 Does the Patient Walk: Yes Walk 10 feet (QC): 6 Walk 10ft-Uneven Surface(QC): 6 Walk 50ft with 2 Turns (QC): 6 Walk 150 ft (QC): 6 Wheel 50 feet with 2 turns (QC: 9 1 Step (curb) (QC): 5 4 Steps (QC): 5 12 Steps (QC): 88 Picking up an Object (QC): 6 OT Usp Goals Resident Care Associate Goals Time Frame: Nov 13, 2020 Eating (QC): 6 (met) Oral Hygiene (QC): 6 (met) Shower/Bathe Self (QC): 6 (met) Upper Body Dressing (QC): 6 (met) Lower Body Dressing (QC): 6 (met) On/Off Footwear (QC): 6 (met) Toileting Hygiene (QC): 6 (met) Toilet/Commode Transfer (QC): 6 (met) Additional Goals: 1-Demonstrate ADL Tasks, 2-Verbalize Understanding, 3- ImproveStrength/Lenin 1=Demonstrate adherence to instructed precautions during ADL tasks. 2=Patient will verbalize/demonstrate understanding of assistive devices/m odifications for ADL. 3=Patient will improve strength/tolerance for activity to enable patient to perform ADL's. LM ZAYAS OT Oct 29, 2020 09:20
--- NOTE | 2020-10-29 09:27 | Occupational Ther Daily Note ---
OT Current Status-Daily Note Subjective No pain reported. Mental Status/Objective Patient Orientation: Person, Place, Time, Situation ADL-Treatment Therapy Code Descriptions/Definitions Functional Green Measure: 0=Not Assessed/NA 4=Minimal Assistance 1=Total Assistance 5=Supervision or Setup 2=Maximal Assistance 6=Modified Green 3=Moderate Assistance 7=Complete IndependenceSCALE: Activities may be completed with or without assistive devices. 2-Vjyllqvaok-jqucvhi completes the activity by him/herself with no assistance from a helper. 5-Set-up or Clean-up Assistance-helper sets up or cleans up; patient completes activity. [place] assists only prior to or following the activity. 4-Supervision or Touching Assistance-helper provides verbal cues and/or touching/steadying and/or contact guard assistance as patient completes activity. Assistance may be provided throughout the activity or intermittently. 3-Partial/Moderate Assistance-helper does LESS THAN HALF the effort. [place] lifts, holds or supports trunk or limbs, but provides less than half the effort. 2-Substantial/Maximal Assistance-helper does MORE THAN HALF the effort. [place] lifts or holds trunk or limbs and provides more than half the effort. 6-Yaxxzxzho-zxolip does ALL the effort. Patient does none of the effort to complete the activity. Or, the assistance of 2 or more helpers is required for the patient to complete the activity. If activity was not attempted, code reason: 7-Patient Refused. 9-Not Applicable-not attempted and the patient did not perform the activity before the current illness, exacerbation or injury. 10-Not Attempted due to Environmental Limitations-(lack of equipment, weather restraints, etc.). 88-Not Attempted due to Medical Conditions or Safety Concerns. Eating (QC): 6 Oral Hygiene (QC): 6 Upper Body Dressing (QC): 6 Lower Body Dressing (QC): 6 On/Off Footwear: 6 Toileting Hygiene (QC): 6 Toilet Transfer (QC): 6 Other Treatment Pt. came into room while pt. was finishing in bathroom. She was independently up and had toileted self. Pt. ambulated to chair and was able to transfer independently. Pt. reports that she gathered her clothing this a.m. and donned independently, as well as stood independently at sink and brushed teeth. Pt. requesting to go home today. All needs met. Education OT Patient Education: Correct positioning, Progress toward Goal/Update tx plan, Purpose of tx/functional activities, Reviewed precautions, Rehab process Teaching Recipient: Patient Teaching Methods: Demonstration, Discussion Response to Teaching: Verbalize Understanding, Return Demonstration OT [employer] Police Officer Goals [employer] Police Officer Goals Time Frame: Nov 13, 2020 Eating (QC): 6 Oral Hygiene (QC): 6 Toileting Hygiene (QC): 6 Shower/Bathe Self (QC): 6 Upper Body Dressing (QC): 6 Lower Body Dressing (QC): 6 On/Off Footwear (QC): 6 Additional Goals: 1-Demonstrate ADL Tasks, 2-Verbalize Understanding, 3- ImproveStrength/Lenin 1=Demonstrate adherence to instructed precautions during ADL tasks. 2=Patient will verbalize/demonstrate understanding of assistive devices/modifications for ADL. 3=Patient will improve strength/tolerance for activity to enable patient to perform ADL's. OT Education/Plan Problem List/Assessment Assessment: Decreased Activ Tolerance Discharge Recommendations Plan/Recommendations: Continue POC Therapy Discharge Recommendati: Home & Family, Post Acute OT Treatment Plan/Plan of Care Treatment,Training & Education: Yes Patient would benefit from OT for education, treatment and training to promote independence in ADL's, mobility, safety and/or upper extremity function for ADL's. Plan of Care: ADL Retraining, Functional Mobility, Group Exercise/Act as Ind, UE Funct Exercise/Act Treatment Duration: Nov 13, 2020 Frequency: At least 5 of 7 days/Wk (IRF) Estimated Hrs Per Day: 1.5 hours per day Agreement: Yes Rehab Potential: Good Time/GCodes Start Time: 08:20 Stop Time: 08:30 Total Time Billed (hr/min): 10 Billed Treatment Time 1, ADL LM ZAYAS OT Oct 29, 2020 09:27
--- NOTE | 2020-10-29 13:18 | Therapy Team Discharge Summary ---
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 Upon evaluation patient performed bed mobility and supine <-> sit with independence, sit <-> stand and transfers with CGA, car transfer CGA, ambulated 120' with a rolling walker with CGA (including 50' with at least 2 turns of 90 degrees and 10' over an uneven surface), and could can go up and down 1 step using a rolling walker with CGA. Patient has been performing bed mobility and transfer training, balance and endurance training, functional strengthening, stair training, gait training, and education. Patient has made fair progress and has met all of her assisted goals except for supine <-> sit. Now, patient performs bed mobility and transfers with independence (except for supine <-> sit which is setup), car transfer independent, ambulates 150' with a rolling walker with independence (including 50' with at least 2 turns of 90 degrees and 10' over an uneven surface), and can go up and down 4 steps using 2 handrails with independence. Patient is discharging from this facility today and will be discharged from PT at this time. Occupational Therapy Decreased Activ Tolerance PT [facility] Goals Outplacement Consultant Goals PT Outplacement Consultant Goals Time Frame: Nov 13, 2020 Roll Left to Right (QC): 6 Sit to Lying (QC): 6 Lying-Sitting on Side/Bed(QC): 6 Sit to Stand (QC): 6 Chair/Yvn-tb-Hqoad Xfer(QC): 6 Car Transfer (QC): 6 Does the Patient Walk: Yes Walk 10 feet (QC): 6 Walk 10ft-Uneven Surface(QC): 6 Walk 50ft with 2 Turns (QC): 6 Walk 150 ft (QC): 6 Wheel 50 feet with 2 turns (QC: 9 1 Step (curb) (QC): 5 4 Steps (QC): 5 12 Steps (QC): 88 Picking up an Object (QC): 6 OT [facility] Goals Outplacement Consultant Goals Time Frame: Nov 13, 2020 Eating (QC): 6 Oral Hygiene (QC): 6 Shower/Bathe Self (QC): 6 Upper Body Dressing (QC): 6 Lower Body Dressing (QC): 6 On/Off Footwear (QC): 6 Toileting Hygiene (QC): 6 Toilet/Commode Transfer (QC): 6 Additional Goals: 1-Demonstrate ADL Tasks, 2-Verbalize Understanding, 3- ImproveStrength/Lenin 1=Demonstrate adherence to instructed precautions during ADL tasks. 2=Patient will verbalize/demonstrate understanding of assistive devices/modifications for ADL. 3=Patient will improve strength/tolerance for activity to enable patient to perform ADL's. ROBIN MOTA PT Oct 29, 2020 13:18
--- NOTE | 2020-10-29 14:58 | NUR ---
CM/SS DISCHARGE Patient had continued to request to return home, she has been hospitalized since 10/06. Physician and team agreed for her release with appropriate post hospital care. HHC: Referral completed with [facility] for RN PT OT. Patient first choice [facility], could not provide PT until at least 7 days. Other local agency does not take commercial insurances. Anticipate agency confirmation they will accept patient and provide services; however, it is their protocol to review referral, check benefits, and then confirm acceptance. DME: New continuous O2 at 2L, referral through [facility] at patient request. Agency understands to deliver portable to patient room and partner with family for home setup. Unit RN updated. Patient's spouse has been on parking lot for an extended period, long before O2 orders were received and referral was completed. Patient updated intermittently of timelines as they became available. Patient to be released once portable O2 delivered.
--- NOTE | 2020-10-29 15:30 | NUR ---
BINDU LAMBERT demonstrates understanding of discharge instructions and accurately returns instructions upon questioning. Copy of Post-Discharge Instructions given to PATIENT. BINDU LAMBERT is able to manage continuing needs after discharge. Patients belongings returned to PATIENT. Patient discharged from [facility] on 10/29/21 at 1530. BINDU LAMBERT left floor via WHEEL CHAIR, accompanied by STAFF TO PERSONAL VEHICLE.
[2020-10-29 15:42] VITALS: BP 120/62
== END 2020-10-29 15:30 | disposition home health service (06) | DRG 91 ==
PROVIDERS: ADMIT Internal Medicine; ATTEND Internal Medicine
DX: G72.81 Critical illness myopathy (principal); I26.99 Other pulmonary embolism without acute cor pulmonale; Z68.43 Body mass index [BMI] 50.0-59.9, adult; Z87.01 Personal history of pneumonia (recurrent); E87.6 Hypokalemia; G70.00 Myasthenia gravis without (acute) exacerbation; G47.33 Obstructive sleep apnea (adult) (pediatric); S30.810A Abrasion of lower back and pelvis, initial encounter; E66.9 Obesity, unspecified; E11.40 Type 2 diabetes mellitus with diabetic neuropathy, unspecified; J45.909 Unspecified asthma, uncomplicated; I10 Essential (primary) hypertension; E78.00 Pure hypercholesterolemia, unspecified; E03.9 Hypothyroidism, unspecified; H53.2 Diplopia; M06.9 Rheumatoid arthritis, unspecified; M19.91 Primary osteoarthritis, unspecified site; Z86.718 Personal history of other venous thrombosis and embolism; X58.XXXA Exposure to other specified factors, initial encounter
CPT/HCPCS: 36415; 80053; 82962; 83735; 85025; 94640; 94760; 94761

== ENCOUNTER 2020-12-25 17:14 | Inpatient (IN) | payer BC ==
[~2020-12-25] VITALS: Ht 167.7 cm; Wt 145.8 kg
[~2020-12-25 17:14] MED LIST changes: +ALPR0.5T7 PO; -ALPRAZolam 0.25 MG (XANAX) TAB PO PRN; +APIX5TAB PO; -BISACODYL 10 MG SUPP (DULCOLAX) PR PRN; -CALCIUM CARBONATE 500 MG (TUMS) TAB.CHEW PO PRN; -CIPR500T4 PO; +CIPR500T5 PO; -CLIN150C17 PO; +CLIN150C18 PO; -DOCUSATE SODIUM 100 MG (COLACE) CAP PO PRN; -FLEET ENEMA ADULT 1 EA BTL PR PRN; -FOLI1TAB24 PO; +FOLI1TAB33 PO; +GUAI473L29 PO; -LACTULOSE SYRUP 10GM/15ML (ENULOSE) 30ML UDC PO PRN; -LOPERAMIDE 2 MG (IMODIUM) TABLET PO PRN; -MELATONIN 3 MG TABLET PO PRN; +MONT10TA32 PO; -MONT10TA97 PO; +NYST1000 PO; -ONDANSETRON 4 MG (ZOFRAN) ORAL DISSOLVE TAB PO PRN; +POTA20TA15 PO; -diphenhydrAMINE 25 MG TAB (BENADRYL) PO PRN; -guaiFENesin/CODEINE (ROBITUSSIN AC) 10ML UDC PO PRN
[2020-12-25] MEDS ORDERED: cloNIDine 0.1 MG (CATAPRES) TAB PO PRN (18:15)
[2020-12-25] MEDS ORDERED: HYDROcodone/APAP 5 MG/325 MG (LORTAB) TAB PO PRN (18:15)
[2020-12-25] MEDS ORDERED: MELATONIN 3 MG TABLET PO PRN (18:15)
[2020-12-25] MEDS ORDERED: ACETAMINOPHEN 500 MG TAB (TYLENOL) PO PRN (18:15)
[2020-12-25] MEDS ORDERED: NS IV 1000 ML 1,000 ML IV SCH (18:15)
[2020-12-25] MEDS ORDERED: diphenhydrAMINE 25 MG TAB (BENADRYL) PO PRN (18:15)
[2020-12-25] MEDS ORDERED: ONDANSETRON 4 MG/2 ML (SDV) Z0FRAN IVP PRN (18:15)
[2020-12-25] MEDS ORDERED: CALCIUM CARBONATE 500 MG (TUMS) TAB.CHEW PO PRN (18:15)
[2020-12-25] MEDS ORDERED: PHARMACY TO DOSE IV SCH (18:15)
[2020-12-25] MEDS ORDERED: LOPERAMIDE 2 MG (IMODIUM) TABLET PO PRN (18:15)
[2020-12-25] MEDS ORDERED: ALPRAZolam 0.25 MG (XANAX) TAB PO PRN (18:15)
[2020-12-25] MEDS ORDERED: DOCUSATE SODIUM 100 MG (COLACE) CAP PO PRN (18:15)
[2020-12-25] MEDS ORDERED: methylPREDNISolone 40 MG/ML (Solu-MEDROL) VIAL ONE (18:35)
[2020-12-25] MEDS ORDERED: NS IV 1000 ML 1,000 ML ONE (18:35)
[2020-12-25] MEDS ORDERED: FURO40TA4 PO (18:38)
[2020-12-25 18:50] VITALS: BP 155/72
[2020-12-25] MEDS: methylPREDNISolone 40 MG/ML (Solu-MEDROL) VIAL IV SCH (18:53)
[2020-12-25 18:59] LABS: BASOPHILS # (AUTO) 0.1 10^3/uL (0.0-0.1); BASOPHILS % (AUTO) 1 % (0-10); EOSINOPHILS # (AUTO) 0.1 10^3/uL (0.0-0.3); EOSINOPHILS % (AUTO) 1 % (0-10); HEMATOCRIT 38 % (35-52); HEMOGLOBIN 11.9 g/dL (11.5-16.0); LYMPHOCYTES % (AUTO) 22 % (12-44); MEAN CORPUSCULAR HEMOGLOBIN 30 pg (25-34); MEAN CORPUSCULAR HGB CONC 31 g/dL (32-36); MEAN CORPUSCULAR VOLUME 96 fL (80-99); MEAN PLATELET VOLUME 9.8 fL (9.0-12.2); MONOCYTES # (AUTO) 0.6 10^3/uL (0.0-1.0); MONOCYTES % (AUTO) 6 % (0-12); NEUTROPHILS # (AUTO) 6.2 10^3/uL (1.8-7.8); NEUTROPHILS % (AUTO) 69 % (42-75); PLATELET COUNT 337 10^3/uL (130-400)
[2020-12-25 19:18] LABS: ALANINE AMINOTRANSFERASE 16 U/L (0-55); ALBUMIN 3.8 GM/DL (3.2-4.5); ALKALINE PHOSPHATASE 96 U/L (40-136); BILIRUBIN,TOTAL 0.3 MG/DL (0.1-1.0); BUN/CREATININE RATIO 30; CALCIUM 9.2 MG/DL (8.5-10.1); CARBON DIOXIDE 24 MMOL/L (21-32); CHLORIDE 103 MMOL/L (98-107); CREATININE SERUM 0.96 MG/DL (0.60-1.30); GFR ESTIMATED 59; GLUCOSE 148 MG/DL (70-105); POTASSIUM 4.3 MMOL/L (3.6-5.0); SODIUM 138 MMOL/L (135-145); TOTAL PROTEIN 7.4 GM/DL (6.4-8.2)
--- NOTE | 2020-12-25 19:42 | Diagnostic Imaging Report ---
INDICATION: Shortness of breath. EXAMINATION: Chest, 12/25/2020. COMPARISON: 10/23/2020. FINDINGS: The heart is prominent. The pulmonary vasculature is minimally prominent. Of note, atelectasis is seen at the lung bases. No consolidation or effusion. No pneumothorax. IMPRESSION: 1. Mild prominence of the pulmonary vasculature perhaps due to mild edema. 2. Mild bibasilar atelectasis with cardiomegaly noted. Dictated by: Dictated on workstation # [id number]
[2020-12-25] MEDS ORDERED: PIPERACILLIN/TAZO 4.5 GM/NS 100 ML IV NR ×2 (19:45)
[2020-12-25 20:00] VITALS: BP 142/64
[2020-12-25] MEDS ORDERED: VANCOMYCIN INJECTION 2,500 MG in NS IV 500 ML 500 ML IV NR (20:00)
[2020-12-25] MEDS ORDERED: PIPERACILLIN/TAZOBACTAM (BULK) 4.5 GM in NS (IVPB) 100 ML IV NR (20:00)
[2020-12-25] MEDS: inSUlin ASPART (NovoLOG) 1 UNIT/0.01 ML (CHARGE PER UNIT) SC SCH (21:00)
[2020-12-25] MEDS ORDERED: MONTELUKAST 10 MG (SINGULAIR) TAB PO SCH (21:00)
[2020-12-25] MEDS: SENNA W/DOCUSATE (SENOKOT S) TABLET PO SCH (21:25)
[2020-12-25] MEDS: APIXABAN 5 MG (ELIQUIS) TABLET PO SCH (21:25)
[2020-12-25] MEDS: cloNIDine 0.1 MG (CATAPRES) TAB PO SCH (21:35)
[2020-12-25 22:49] VITALS: BP 142/64
[2020-12-25] MEDS ORDERED: RT-ALBUTEROL SULF 2.5 MG/3 ML PRE-MIX VIAL INH PRN (23:15)
[2020-12-25 23:20] LABS: ABG BASE EXCESS 1.2 MMOL/L (-2.5-2.5); ABG OXYGEN SATURATION 99 % (94-100); ABG PCO2 40 MMHG (35-45); ABG PH 7.41 (7.37-7.43); ABG PO2 98 MMHG (79-93); ABG TCO2 26.8 MMOL/L (21.0-31.0); ALLENS TEST POSITIVE; INSPIRED O2 3; PATIENT TEMP 36; VENTILATOR NO
[2020-12-26] VITALS: BP 143/67
[2020-12-26] MEDS: methylPREDNISolone 40 MG/ML (Solu-MEDROL) VIAL IV SCH ×4 (00:13→17:06)
[2020-12-26] MEDS: PIPERACILLIN/TAZOBACTAM (BULK) 4.5 GM in NS (IVPB) 100 ML IV SCH ×3 (02:24→17:06)
[2020-12-26 03:44] LABS: BASOPHILS % (AUTO) 0 % (0-10); EOSINOPHILS % (AUTO) 0 % (0-10); HEMATOCRIT 36 % (35-52); HEMOGLOBIN 11.5 g/dL (11.5-16.0); LYMPHOCYTES # (AUTO) 0.8 10^3/uL (1.0-4.0); LYMPHOCYTES % (AUTO) 8 % (12-44); MEAN CORPUSCULAR HEMOGLOBIN 30 pg (25-34); MEAN CORPUSCULAR HGB CONC 32 g/dL (32-36); MEAN CORPUSCULAR VOLUME 94 fL (80-99); MEAN PLATELET VOLUME 9.8 fL (9.0-12.2); MONOCYTES # (AUTO) 0.1 10^3/uL (0.0-1.0); MONOCYTES % (AUTO) 1 % (0-12); NEUTROPHILS # (AUTO) 8.9 10^3/uL (1.8-7.8); NEUTROPHILS % (AUTO) 91 % (42-75); PLATELET COUNT 309 10^3/uL (130-400); WHITE BLOOD COUNT 9.8 10^3/uL (4.3-11.0)
[2020-12-26 03:50] LABS: CHLORIDE 104 MMOL/L (98-107); POTASSIUM 4.5 MMOL/L (3.6-5.0); SODIUM 138 MMOL/L (135-145)
[2020-12-26 03:52] LABS: GLUCOSE 197 MG/DL (70-105)
[2020-12-26 03:53] LABS: CARBON DIOXIDE 22 MMOL/L (21-32)
[2020-12-26 03:55] LABS: CREATININE SERUM 0.86 MG/DL (0.60-1.30); GFR ESTIMATED > 60; PHOSPHORUS 3.2 MG/DL (2.3-4.7)
[2020-12-26 03:56] LABS: BUN/CREATININE RATIO 28
[2020-12-26 04:00] VITALS: BP 147/72
--- NOTE | 2020-12-26 04:19 | Pulmonary Consultation ---
History of Present Illness History of Present Illness Date Seen by Provider: Dec 26, 2020 Time Seen by Provider: 04:19 Date of Admission Allergies and Home Medications Allergies Coded Allergies: adhesive tape (Verified Allergy, Intermediate, 02/21/20) BLISTERS AND RAW SKIN amlodipine (Verified Allergy, Unknown, 02/22/13) erythromycin base (Verified Allergy, Unknown, 02/22/13) Uncoded Allergies: ALMONDS (Adverse Reaction, Mild, 02/22/20) SHE HAS PAIN ALL OVER WHEN SHE EATS THEM Home Medications Albuterol Sulfate 1 Puff Puff, 2 PUFF INH Q4H PRN for SHORTNESS OF BREATH, ( Reported) Alprazolam 0.5 Mg Tablet, 0.5 MG PO Q3HR PRN for ANXIETY Prescribed by: FABIENNE ZAMORA on 10/29/20 0851 Apixaban 5 Mg Tablet, 5 MG PO BID Prescribed by: FABIENNE ZAMORA on 10/29/20 0850 Atorvastatin Calcium 20 Mg Tablet, 20 MG PO DAILY, (Reported) Calcium Carbonate/Vitamin D3 1 Each Tablet, 1 EACH PO BID, (Reported) Cetirizine HCl 10 Mg Tablet, 10 MG PO DAILY, (Reported) Citalopram Hydrobromide 20 Mg Tablet, 20 MG PO HS, (Reported) Clonidine HCl 0.1 Mg Tablet, 0.1 MG PO BID, (Reported) Fluticasone/Vilanterol 1 Each Blst.w.dev, 1 PUFF INH DAILY, (Reported) Furosemide 40 Mg Tablet, 40 MG PO UD, (Reported) Guaifenesin/Codeine Phosphate 473 Ml Liquid, 5 ML PO Q4H PRN for COUGH Prescribed by: FABIENNE ZAMORA on 10/29/20 0851 Levothyroxine Sodium 50 Mcg Tablet, 50 MCG PO DAILY, (Reported) Losartan Potassium 50 Mg Tablet, 50 MG PO DAILY, (Reported) Melatonin 5 Mg Tablet, 5 MG PO HS PRN for SLEEP, (Reported) Montelukast Sodium 10 Mg Tablet, 10 MG PO DAILY, (Reported) Pantoprazole Sodium 40 Mg Tablet.dr, 40 MG PO DAILY, (Reported) Potassium Chloride 20 Meq Tab.er.prt, 20 MEQ PO BID Prescribed by: FABIENNE ZAMORA on 10/29/20 0850 Prednisone 10 Mg Tab, 7 MG PO DAILY, (Reported) Tiotropium [place] 4 Gm Mist.inhal, 2 PUFF INH DAILY, (Reported) Triamterene/Hydrochlorothiazid 1 Each Capsule, 1 CAP PO DAILY, (Reported) 04-03-2020 #100/100 DAY SUPPLY Past Mgigdnh-Dapayi-Nkmysp Hx Patient Social History 2nd Hand Smoke Exposure: No Recent Hopitalizations: Yes ( FOR INPATIENT REHAB) Have you traveled recently?: No Alcohol Use?: No Immunizations Up To Date Tetanus Booster (TDap): Less than 5yrs PED Vaccines UTD: Yes Date of Pneumonia Vaccine: Jan 04, 2018 Date of Influenza Vaccine: Sep 12, 2020 Seasonal Allergies Seasonal Allergies: Yes Past Medical History Surgeries: Yes (FOOT SURGERY,LEFT LUMPECTOMY, R KNEE MINISCUS REPAIR) Orthopedic Respiratory: Yes (CHRONIC COUGH) Asthma, Sleep Apnea Currently Using CPAP: Yes Currently Using BIPAP: No Cardiac: Yes Chronic Edema/Swelling, Deep Vein Thrombosis, High Cholesterol, Hypertension Neurological: Yes Neuropathy 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 Disorders: 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 Sexually Transmitted Disease: No Genitourinary: Yes Bladder Infection Gastrointestinal: No Musculoskeletal: Yes Arthritis, Rheumatoid Arthritis Endocrine: Yes (OBESITY) Hypothyroidsim, Diabetes, Non-Insulin dep HEENT: No Double Vision Loss of Vision: Denies Hearing Impairment: Denies Cancer: No Psychosocial: No Integumentary: No Blood Disorders: No Adverse Reaction/Blood Tranf: No Family Medical History Alcoholism G8 BROTHER G8 SISTER Alzheimer's disease 19 MOTHER Arthritis 19 FATHER Asthma G8 SISTER Cardiovascular disease 19 FATHER Cataracts 19 FATHER Coronary thrombosis 19 FATHER Deafness or hearing loss SON Diabetes mellitus 19 FATHER G8 SISTER G8 SISTER Drug abuse G8 SISTER Hypertension 19 FATHER G8 SISTER G8 SISTER Kidney disease 19 FATHER Respiratory disorder G8 SISTER G8 SISTER Seizure disorder SON Severe allergy SON Heart Disease, Diabetes, Hypertension Review of Systems Time Seen by Provider: 05:11 Sepsis Event Evaluation Height, Weight, BMI Height: 5'6.00" Weight: 297lbs. 0.0oz. 134.709921tz; 51.84 BMI Method:Stated Exam Exam Vital Signs Date Time Temp Pulse Resp B/P (MAP) Pulse Ox O2 Delivery O2 Flow Rate FiO2 12/26/20 01:00 60 12/26/20 00:00 36.0 91 20 143/67 (92) 98 Nasal Cannula 3.00 12/25/20 23:07 99 Nasal Cannula 3.00 12/25/20 22:49 36.0 65 12/25/20 20:00 89 20 142/64 (90) 98 Nasal Cannula 3.00 12/25/20 20:00 99 Nasal Cannula 3.00 12/25/20 19:00 75 12/25/20 18:53 81 12/25/20 18:50 36.7 79 21 155/72 (99) 100 Nasal Cannula 2.00 12/25/20 18:20 100 Nasal Cannula 2.00 I & O 12/26/20 07:00 Intake Total 350 ml Balance 350 ml Height & Weight Height: 5'6.00" Weight: 297lbs. 0.0oz. 134.609786py; 51.84 BMI Method:Stated Results Lab Laboratory Tests 12/25/20 18:43 12/26/20 03:30 Assessment/Plan Assessment/Plan AsthmaAE -D/C Mat protocol -Change BID albuterol to Q4 Duoneb -Add advair -Solumedrol 40Q6 Post COVID r/o Acitive PNA -Currently on Vanco and Zosyn -Monitor -IS -CXR reviewed Allergic rhinitis -JENNY Burns DO Dec 26, 2020 04:19
[2020-12-26 04:51] LABS: BAND NEUTROPHILS 4 %; LYMPHOCYTES % (MANUAL) 7 %; MONOCYTES % (MANUAL) 2 %; NEUTROPHILS % (MANUAL) 87 %; RBC MORPH NORMAL
[2020-12-26] MEDS: inSUlin ASPART (NovoLOG) 1 UNIT/0.01 ML (CHARGE PER UNIT) SC SCH ×4 (06:28→21:03)
[2020-12-26] MEDS: ADVAIR HFA 115/21 MCG INHALER 8 GM IH SCH ×2 (07:49→21:59)
[2020-12-26] MEDS: UMECLIDINIUM BROMIDE (INCRUSE ELLIPTA) 7'S IH SCH (07:50)
[2020-12-26] MEDS ORDERED: RT-ALBUTEROL SULF 2.5 MG/3 ML PRE-MIX VIAL INH SCH (08:00)
[2020-12-26] MEDS ORDERED: ADVAIR HFA 115/21 MCG INHALER 8 GM IH SCH ×2 (08:00→09:00)
[2020-12-26] MEDS: LOSARTAN 50 MG (COZAAR) TAB PO SCH (08:35)
[2020-12-26] MEDS: APIXABAN 5 MG (ELIQUIS) TABLET PO SCH ×2 (08:35→19:47)
[2020-12-26] MEDS: LEVOTHYROXINE 50 MCG (LEVOTHROID) TAB PO SCH (08:35)
[2020-12-26] MEDS: SENNA W/DOCUSATE (SENOKOT S) TABLET PO SCH ×2 (08:35→19:46)
[2020-12-26] MEDS: PANTOPRAZOLE 40 MG (PROTONIX) TAB PO SCH (08:36)
[2020-12-26] MEDS: LORATADINE (CLARITIN) 10 MG TAB PO SCH (08:36)
[2020-12-26] MEDS: TRIAMTERENE/HCTZ 75-50 (MAXZIDE,DYAZIDE) TABLET PO SCH (08:36)
[2020-12-26] MEDS: cloNIDine 0.1 MG (CATAPRES) TAB PO SCH ×2 (08:36→19:47)
[2020-12-26] MEDS: VANCOMYCIN 2000 MG/NS 500 ML IVPB IV SCH ×4 (08:43→21:02)
[2020-12-26] MEDS ORDERED: NON-FORMULARY MEDICATION 1 EA EA (Triamterene/Hydrochlorothiazid (Triamterene-Hctz 37.5-25 PO SCH (09:00)
[2020-12-26] MEDS ORDERED: LORATADINE (CLARITIN) 10 MG TAB PO SCH (09:00)
[2020-12-26] MEDS ORDERED: PANTOPRAZOLE 40 MG (PROTONIX) TAB PO SCH (09:00)
[2020-12-26 09:04] VITALS: BP 142/71
[2020-12-26] MEDS: RT-ALBUTEROL SULF 2.5 MG/3 ML PRE-MIX VIAL IH SCH ×4 (10:30→21:58)
[2020-12-26 11:14] VITALS: BP 130/50
[2020-12-26] MEDS ORDERED: ALPRAZolam 0.5 MG (XANAX) TAB PO PRN (11:30)
--- NOTE | 2020-12-26 14:12 | History & Physical-Hospitalist ---
LOBITO FULLER,[facility] 12/26/20 1412: History of Present Illness HPI/Chief Complaint 60 yo woman admitted from Dr. Zamora's clinic on 12/25 worsened shortness of breath. She was hospitalized for 24 days in Sep-Oct 2020 for COVID PNA and has been seeing Dr. Zamora in clinic once monthly since [place]. Pt was seen Tuesday and was found to have worsened SOB so a f/u visit was arranged for to observe for improvement or decline. Pt's SOB and cough had worsened by and the decision was made to admit her. Source: patient Date Seen 12/26/20 Time Seen by a Provider: 10:50 Attending Physician Shayla Zamora DO PCP Shayla Zamora DO Referring Physician Date of Admission Dec 25, 2020 at 17:59 Home Medications & Allergies Home Medications Home Meds Active Guaifenesin AC Cough Syrup (Guaifenesin/Codeine Phosphate) 473 Ml Liquid 5 Ml PO Q4H PRN Potassium Chloride 20 Meq Tab.er.prt 20 Meq PO BID Alprazolam 0.5 Mg Tablet 0.5 Mg PO Q3HR PRN Eliquis (Apixaban) 5 Mg Tablet 5 Mg PO BID Reported Furosemide 40 Mg Tablet 40 Mg PO UD All Day Allergy (Cetirizine HCl) 10 Mg Tablet 10 Mg PO DAILY Melatonin 5 Mg Tablet 5 Mg PO HS PRN Losartan Potassium 50 Mg Tablet 50 Mg PO DAILY Citalopram HBr (Citalopram Hydrobromide) 20 Mg Tablet 20 Mg PO HS Prednisone 10 Mg Tab 7 Mg PO DAILY Calcium 500 + Vit D 200 Caplet (Calcium Carbonate/Vitamin D3) 1 Each Tablet 1 Each PO BID Pantoprazole Sodium 40 Mg Tablet.dr 40 Mg PO DAILY Proair Hfa (Albuterol Sulfate) 1 Puff Puff 2 Puff INH Q4H PRN Atorvastatin Calcium 20 Mg Tablet 20 Mg PO DAILY Triamterene-Hctz 37.5-25 mg Cp (Triamterene/Hydrochlorothiazid) 1 Each Capsule 1 Cap PO DAILY 04-03-2020 #100/100 DAY SUPPLY Spiriva Respimat 1.25MCG/ACTUATION (Tiotropium [place]) 4 Gm Mist.inhal 2 Puff INH DAILY Breo Ellipta 200-25 Mcg INH (Fluticasone/Vilanterol) 1 Each Blst.w.dev 1 Puff INH DAILY Montelukast Sodium 10 Mg Tablet 10 Mg PO DAILY Clonidine HCl 0.1 Mg Tablet 0.1 Mg PO BID Levothyroxine Sodium 50 Mcg Tablet 50 Mcg PO DAILY Reviewed patient Home Medication Reconciliation performed by pharmacy medication reconciliations vtc technician and/or nursing. Patients Allergies have been reviewed. Allergies Allergies Coded Allergies adhesive tape (Verified Allergy, Intermediate, 02/21/20) BLISTERS AND RAW SKIN amlodipine (Verified Allergy, Unknown, 02/22/13) erythromycin base (Verified Allergy, Unknown, 02/22/13) Uncoded Allergies ALMONDS ( Adverse Reaction, Mild, 02/22/20) SHE HAS PAIN ALL OVER WHEN SHE EATS THEM Past Thestlx-Abamyx-Ypdisn Hx Patient Social History 2nd Hand Smoke Exposure: No Recent Foreign Travel: No Contact w/other who traveled: No Recent Hopitalizations: Yes ( FOR INPATIENT REHAB) Immunizations Up To Date Tetanus Booster (TDap): Less than 5yrs Pediatric: Yes Date of Pneumonia Vaccine: Jan 04, 2018 Date of Influenza Vaccine: Sep 12, 2020 Seasonal Allergies Seasonal Allergies: Yes Past Medical History Surgeries: Orthopedic Respiratory: Asthma, Chronic Bronchitis, Pneumonia, Sleep Apnea Currently Using CPAP: Yes Currently Using BIPAP: No Cardiac: Chronic Edema/Swelling, Deep Vein Thrombosis, High Cholesterol, Hypertension Neurological: Neuropathy Myasthenia gravis 07/2020 KU : No 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: No Sexually Transmitted Disease: No Menopausal Genitourinary: Bladder Infection Musculoskeletal: Arthritis, Rheumatoid Arthritis Endocrine: Hypothyroidsim, Diabetes, Non-Insulin dep HEENT: Double Vision Loss of Vision: Denies Hearing Impairment: Denies History of Blood Disorders: No Adverse Reaction to Blood [place]: No Family History Alcoholism G8 BROTHER G8 SISTER Alzheimer's disease 19 MOTHER Arthritis 19 FATHER Asthma G8 SISTER Cardiovascular disease 19 FATHER Cataracts 19 FATHER Coronary thrombosis 19 FATHER Deafness or hearing loss SON Diabetes mellitus 19 FATHER G8 SISTER G8 SISTER Drug abuse G8 SISTER Hypertension 19 FATHER G8 SISTER G8 SISTER Kidney disease 19 FATHER Respiratory disorder G8 SISTER G8 SISTER Seizure disorder SON Severe allergy SON Heart Disease, Diabetes, Hypertension Review of Systems EENTM: no symptoms reported Respiratory: cough, dyspnea on exertion, short of breath Cardiovascular: no symptoms reported Gastrointestinal: no symptoms reported Genitourinary: no symptoms reported Physical Exam Physical Exam Vital Signs Vital Signs - First Documented 12/25/20 12/25/20 18:20 18:50 Temp 36.7 Pulse 79 Resp 21 B/P (MAP) 155/72 (99) Pulse Ox 100 O2 Delivery Nasal Cannula O2 Flow Rate 2.00 Capillary Refill : VS - Last 72 Hours, by Label 12/25/20 12/25/20 12/25/20 12/25/20 18:20 18:50 18:53 19:00 Temp 36.7 Pulse 79 81 75 Resp 21 B/P (MAP) 155/72 (99) Pulse Ox 100 100 O2 Delivery Nasal Cannula Nasal Cannula O2 Flow Rate 2.00 2.00 12/25/20 12/25/20 12/25/20 12/25/20 20:00 20:00 22:49 23:07 Temp 36.0 Pulse 89 65 Resp 20 B/P (MAP) 142/64 (90) Pulse Ox 99 98 99 O2 Delivery Nasal Cannula Nasal Cannula Nasal Cannula O2 Flow Rate 3.00 3.00 3.00 12/26/20 12/26/20 12/26/20 12/26/20 00:00 01:00 04:00 07:00 Temp 36.0 Pulse 91 60 80 56 Resp 20 21 B/P (MAP) 143/67 (92) 147/72 (97) Pulse Ox 98 96 O2 Delivery Nasal Cannula Nasal Cannula O2 Flow Rate 3.00 1.00 12/26/20 12/26/20 12/26/20 12/26/20 07:50 07:56 08:00 09:04 Temp 36.2 Pulse 77 Resp 20 B/P (MAP) 142/71 (94) Pulse Ox 97 97 97 O2 Delivery Nasal Cannula Nasal Cannula Nasal Cannula Nasal Cannula O2 Flow Rate 1.00 1.00 1.50 1.50 12/26/20 12/26/20 10:30 11:14 Temp 36.2 Pulse 84 Resp 25 B/P (MAP) 130/50 (76) Pulse Ox 97 96 O2 Delivery Nasal Cannula Nasal Cannula O2 Flow Rate 0.50 1.00 Height, Weight, BMI Height: 5'6.00" Weight: 297lbs. 0.0oz. 134.859437lt; 51.84 BMI Method:Stated General Appearance: No Apparent Distress Respiratory: Chest Non Tender, Decreased Breath Sounds, Wheezing Cardiovascular: Regular Rate, Rhythm, No Edema Extremity: Normal Capillary Refill, Normal Inspection, Other (generalized tenderness to palpation of the lower extremities bilaterally) Neurologic/Psychiatric: Alert, Oriented x3 Results Results/Procedures Labs Laboratory Tests 12/25/20 18:43 12/26/20 03:30 Patient resulted labs reviewed. Laboratory Tests Test 12/25/20 23:03 Blood Gas Puncture Site RIGHT RADIAL Blood Gas Patient Temperature 36 Arterial Blood pH 7.41 Arterial Blood Partial Pressure CO2 40 MMHG Arterial Blood Partial Pressure O2 98 MMHG Arterial Blood HCO3 26 MMOL/L Arterial Blood Total CO2 26.8 MMOL/L Arterial Blood Oxygen Saturation 99 % Arterial Blood Base Excess 1.2 MMOL/L Carlos Test POSITIVE Blood Gas Ventilator Setting NO Blood Gas Inspired Oxygen 3 Imaging: Reviewed Imaging Report Imaging Date of Exam:12/25/20 CHEST 1 VIEW, AP/PA ONLY INDICATION: Shortness of breath. EXAMINATION: Chest, 12/25/2020. COMPARISON: 10/23/2020. FINDINGS: The heart is prominent. The pulmonary vasculature is minimally prominent. Of note, atelectasis is seen at the lung bases. No consolidation or effusion. No pneumothorax. IMPRESSION: 1. Mild prominence of the pulmonary vasculature perhaps due to mild edema. 2. Mild bibasilar atelectasis with cardiomegaly noted. Dictated by: Dictated on workstation # [id number] Dict: 12/25/201934 Trans: 12/25/202105 [facility] [id number] Interpreted by: EDDIE AWAD MD Electronically signed by: EDDIE AWAD MD 12/25/202105 Assessment/Plan Admission Diagnosis SOB Admission Status: Observation Assessment and Plan 1. AE-Asthma -q4 Duoneb -Advair -Solumedrol 2. Post-COVID r/o Acitve PNA -CXR showed atelectasis but no infiltrates -Vancomycin, Zosyn -IS 3. Allergic Rhinitis -rubén Joseph MINDI DO 12/27/20 0556: History of Present Illness HPI/Chief Complaint CC: Dyspnea with wheezing post COVID 09/2020 HPI: This is a clinic patient of mine who I admitted from my clinic due to worsened respiratory status. COVID PNA required lengthy stay at [facility] 09/2020. All labs and images reviewed. Patient feels better but still wheezing. Past Wztshke-Ahkcob-Ssvfku Hx Past Med/Social Hx: Reviewed Nursing Past Med/Soc Hx, Reviewed and Corrections made Patient Social History Marrital Status: Employed/Student: employed Alcohol Use: Denies Use Smoking Status: Never a Smoker Past Medical History Surgeries: Orthopedic Respiratory: Asthma, Pneumonia, Sleep Apnea Currently Using CPAP: Yes Cardiac: High Cholesterol, Hypertension Neurological: Neuropathy Musculoskeletal: Chronic Back Pain Endocrine: Hypothyroidsim, Diabetes, Non-Insulin dep Psychosocial: Anxiety, Depression Family History Alcoholism G8 BROTHER G8 SISTER Alzheimer's disease 19 MOTHER Arthritis 19 FATHER Asthma G8 SISTER Cardiovascular disease 19 FATHER Cataracts 19 FATHER Coronary thrombosis 19 FATHER Deafness or hearing loss SON Diabetes mellitus 19 FATHER G8 SISTER G8 SISTER Drug abuse G8 SISTER Hypertension 19 FATHER G8 SISTER G8 SISTER Kidney disease 19 FATHER Respiratory disorder G8 SISTER G8 SISTER Seizure disorder SON Severe allergy SON Review of Systems Constitutional: see HPI, malaise, weakness Respiratory: dyspnea on exertion, wheezing Physical Exam Physical Exam General Appearance: No Apparent Distress, Chronically ill, Obese Eyes: Right Eye Normal Inspection, Right Eye PERRL HEENT: PERRL/EOMI, Normal ENT Inspection, Pharynx Normal, Moist Mucous Membranes Neck: Full Range of Motion, Normal Inspection, Non Tender Respiratory: Chest Non Tender, No Accessory Muscle Use, No Respiratory Distress, Decreased Breath Sounds, Wheezing Cardiovascular: Regular Rate, Rhythm, No Edema, No Gallop, No JVD, No Murmur, Normal Peripheral Pulses Gastrointestinal: Normal Bowel Sounds, No Organomegaly, No Pulsatile Mass, Non Tender, Soft Back: Normal Inspection, No CVA Tenderness, No Vertebral Tenderness Extremity: Normal Capillary Refill, Normal Inspection, Normal Range of Motion, Non Tender, No Calf Tenderness, No Pedal Edema Neurologic/Psychiatric: Alert, Oriented x3, No Motor/Sensory Deficits, Normal Mood/Affect Skin: Normal Color, Warm/Dry Lymphatic: No Adenopathy Assessment/Plan Admission Diagnosis Assessment: Acute on chronic respiratory insufficiency Wheezing AE asthma RALPH on CPAP Post COVID 09/2020 Myasthenia Gravis HTN DM Hypothyroidism RA Obesity Plan: IV steroids Monitor O2 Dr Frey IV abx Admission Status: Inpatient Order (span 2 midnights) Reason for Inpatient Admission: resp failure Diagnosis/Problems Diagnosis/Problems (1) Asthma exacerbation Status: Acute (2) Pulmonary embolism Status: Acute (3) Hypoxia Status: Acute (4) Myasthenia gravis (5) Hypothyroidism Status: Chronic (6) Diabetes mellitus Status: Chronic (7) Rheumatoid arthritis Status: Chronic (8) Acute bronchitis, bacterial Status: Acute Supervisory-Addendum Brief Verification & Attestation Participated in pt care: history, MDM, physical Personally performed: exam, history, MDM, supervision of care Care discussed with: Medical Student Procedures: n/a Results interpretation: Verified all documentation Verification and Attestation of Medical Student E/M Service A medical student performed and documented this service in my presence. I reviewed and verified all information documented by the medical student and made modifications to such information, when appropriate. I personally performed the physical exam and medical decision making. Shayla Zamora, Dec 27, 2020,05:56 LOBITO FULLER,MED STUDEN Dec 26, 2020 14:12 SHAYLA ZAMORA DO Dec 27, 2020 05:56
[2020-12-26 19:40] VITALS: BP 142/65
[2020-12-26] MEDS: MONTELUKAST 10 MG (SINGULAIR) TAB PO SCH (19:47)
[2020-12-26] MEDS: ACETAMINOPHEN 325 MG TABLET PO PRN (19:47)
[2020-12-27] MEDS: methylPREDNISolone 40 MG/ML (Solu-MEDROL) VIAL IV SCH ×4 (00:27→17:32)
[2020-12-27] MEDS: PIPERACILLIN/TAZOBACTAM (BULK) 4.5 GM in NS (IVPB) 100 ML IV SCH ×3 (00:29→17:32)
[2020-12-27 00:31] VITALS: BP 133/63
[2020-12-27] MEDS: RT-ALBUTEROL SULF 2.5 MG/3 ML PRE-MIX VIAL IH SCH ×6 (01:49→22:34)
[2020-12-27] MEDS: ACETAMINOPHEN 325 MG TABLET PO PRN ×2 (04:22→17:32)
[2020-12-27 04:34] VITALS: BP 149/70
[2020-12-27] MEDS: inSUlin ASPART (NovoLOG) 1 UNIT/0.01 ML (CHARGE PER UNIT) SC SCH ×4 (06:21→20:54)
--- NOTE | 2020-12-27 06:22 | Pulmonary Progress Note ---
Subjective Time Seen by a Provider: 06:20 Subjective/Events-last exam Pt appears to be doing better. Sepsis Event Evaluation Height, Weight, BMI Height: 5'6.00" Weight: 297lbs. 0.0oz. 134.359089yt; 51.84 BMI Method:Stated Focused Exam Lactate Level 12/25/20 18:43: Lactic Acid Level 1.94 Exam Exam Vital Signs Date Time Temp Pulse Resp B/P (MAP) Pulse Ox O2 Delivery O2 Flow Rate FiO2 12/27/20 04:34 36.4 74 20 149/70 (96) 97 Nasal Cannula 1.00 12/27/20 01:49 97 Nasal Cannula 2.00 12/27/20 00:31 36.3 69 22 133/63 (86) 97 Nasal Cannula 2.00 12/26/20 21:59 96 1.00 12/26/20 19:40 77 22 142/65 (90) 96 Nasal Cannula 2.00 12/26/20 19:30 97 Nasal Cannula 1.50 12/26/20 18:17 98 Nasal Cannula 1.00 12/26/20 14:56 98 Nasal Cannula 1.00 12/26/20 11:14 36.2 84 25 130/50 (76) 96 Nasal Cannula 1.00 12/26/20 10:30 97 Nasal Cannula 0.50 12/26/20 09:04 36.2 77 20 142/71 (94) 97 Nasal Cannula 1.50 12/26/20 08:00 97 Nasal Cannula 1.50 12/26/20 07:56 Nasal Cannula 1.00 12/26/20 07:50 97 Nasal Cannula 1.00 12/26/20 07:00 56 I & O 12/27/20 07:00 Intake Total 2910 ml Balance 2910 ml Height & Weight Height: 5'6.00" Weight: 297lbs. 0.0oz. 134.592647lc; 51.84 BMI Method:Stated General Appearance: No Apparent Distress, Chronically ill, Obese HEENT: PERRL/EOMI, Normal ENT Inspection, Pharynx Normal, Moist Mucous Membranes Neck: Full Range of Motion, Normal Inspection, Non Tender Respiratory: Chest Non Tender, No Accessory Muscle Use, No Respiratory Distress, Decreased Breath Sounds, Wheezing Cardiovascular: Regular Rate, Rhythm, No Edema, No Gallop, No JVD, No Murmur, Normal Peripheral Pulses Extremity: Normal Capillary Refill, Normal Inspection, Normal Range of Motion, Non Tender, No Calf Tenderness, No Pedal Edema Neurologic/Psychiatric: Alert, Oriented x3, No Motor/Sensory Deficits, Normal Mood/Affect Skin: Normal Color, Warm/Dry Lymphatic: No Adenopathy Results Lab Laboratory Tests 12/25/20 18:43 12/26/20 03:30 Assessment/Plan Assessment/Plan AsthmaAE -albuterol to Q4 -incruse - advair -Solumedrol 40Q6 Post COVID r/o Acitive PNA -Currently on Vanco and Zosyn -Monitor -IS -CXR reviewed Allergic rhinitis -JENNY Burns DO Dec 27, 2020 06:22
[2020-12-27 06:57] LABS: BASOPHILS % (AUTO) 0 % (0-10); EOSINOPHILS % (AUTO) 0 % (0-10); HEMATOCRIT 35 % (35-52); HEMOGLOBIN 10.8 g/dL (11.5-16.0); LYMPHOCYTES # (AUTO) 0.9 10^3/uL (1.0-4.0); LYMPHOCYTES % (AUTO) 7 % (12-44); MEAN CORPUSCULAR HEMOGLOBIN 30 pg (25-34); MEAN CORPUSCULAR HGB CONC 31 g/dL (32-36); MEAN CORPUSCULAR VOLUME 95 fL (80-99); MONOCYTES # (AUTO) 0.2 10^3/uL (0.0-1.0); MONOCYTES % (AUTO) 2 % (0-12); NEUTROPHILS # (AUTO) 10.9 10^3/uL (1.8-7.8); NEUTROPHILS % (AUTO) 90 % (42-75); PLATELET COUNT 295 10^3/uL (130-400); WHITE BLOOD COUNT 12.1 10^3/uL (4.3-11.0)
[2020-12-27] MEDS: UMECLIDINIUM BROMIDE (INCRUSE ELLIPTA) 7'S IH SCH (06:59)
[2020-12-27] MEDS: ADVAIR HFA 115/21 MCG INHALER 8 GM IH SCH ×2 (06:59→18:37)
[2020-12-27] MEDS ORDERED: TROUGH ORDER-PHARMACY XX NR ×2 (07:00→15:00)
[2020-12-27 07:22] LABS: ALBUMIN 3.6 GM/DL (3.2-4.5); BILIRUBIN,TOTAL 0.3 MG/DL (0.1-1.0); CALCIUM 9.4 MG/DL (8.5-10.1); CREATININE SERUM 0.96 MG/DL (0.60-1.30); POTASSIUM 4.3 MMOL/L (3.6-5.0); TOTAL PROTEIN 6.9 GM/DL (6.4-8.2)
[2020-12-27 08:00] VITALS: BP 141/72
[2020-12-27] MEDS: cloNIDine 0.1 MG (CATAPRES) TAB PO SCH ×2 (08:28→20:50)
[2020-12-27] MEDS: LEVOTHYROXINE 50 MCG (LEVOTHROID) TAB PO SCH (08:28)
[2020-12-27] MEDS: guaiFENesin/CODEINE (ROBITUSSIN AC) 10ML UDC PO PRN ×2 (08:28→17:32)
[2020-12-27] MEDS: LOSARTAN 50 MG (COZAAR) TAB PO SCH (08:29)
[2020-12-27] MEDS: APIXABAN 5 MG (ELIQUIS) TABLET PO SCH ×2 (08:29→20:50)
[2020-12-27] MEDS: LORATADINE (CLARITIN) 10 MG TAB PO SCH (08:29)
[2020-12-27] MEDS: PANTOPRAZOLE 40 MG (PROTONIX) TAB PO SCH (08:29)
[2020-12-27] MEDS: TRIAMTERENE/HCTZ 75-50 (MAXZIDE,DYAZIDE) TABLET PO SCH (08:30)
[2020-12-27] MEDS: SENNA W/DOCUSATE (SENOKOT S) TABLET PO SCH ×2 (08:30→20:50)
--- NOTE | 2020-12-27 10:53 | Progress Note - Hospitalist ---
Subjective HPI/CC On Admission Date Seen by Provider: Dec 27, 2020 Time Seen by Provider: 11:00 CC: Dyspnea with wheezing post COVID 09/2020 HPI: This is a clinic patient of mine who I admitted from my clinic due to worsened respiratory status. COVID PNA required lengthy stay at [facility] 09/2020. All labs and images reviewed. Patient feels better but still wheezing. Subjective/Events-last exam Patient feels better Wheezing is much better Cough suppressants are helping No pain Labs stable Review of Systems Pulmonary: Dyspnea, Cough Focused Exam Lactate Level 12/25/20 18:43: Lactic Acid Level 1.94 Objective Exam Vital Signs Vital Signs Date Time Temp Pulse Resp B/P (MAP) Pulse Ox O2 Delivery O2 Flow Rate FiO2 12/28/20 06:41 96 Nasal Cannula 2.00 12/28/20 03:46 35.3 66 22 133/63 (86) Capillary Refill : General Appearance: No Apparent Distress, WD/WN, Chronically ill, Obese Respiratory: No Accessory Muscle Use, No Respiratory Distress, Decreased Breath Sounds, Wheezing Cardiovascular: Regular Rate, Rhythm, No Edema, No Gallop, No JVD, No Murmur, Normal Peripheral Pulses Neurologic/Psychiatric: Alert, Oriented x3, No Motor/Sensory Deficits, Normal Mood/Affect Results/Procedures Lab Patient resulted labs reviewed. Imaging: Reviewed Imaging Report Assessment/Plan Assessment and Plan Assess & Plan/Chief Complaint Assessment: Impending respiratory insufficiency Acute bacterial bronchitis AECOPD Recent COVID Recent PE with COVID RALPH on CPAP O2 dependence at home DM HTN HLP RA Myasthenia Gravis Plan: IV abx IV steroids Nebs ICS Diagnosis/Problems Diagnosis/Problems (1) Asthma exacerbation Status: Acute (2) Pulmonary embolism Status: Acute (3) Hypoxia Status: Acute (4) Myasthenia gravis (5) Hypothyroidism Status: Chronic (6) Diabetes mellitus Status: Chronic (7) Rheumatoid arthritis Status: Chronic (8) Acute bronchitis, bacterial Status: Acute FABIENNE ZAMORA DO Dec 27, 2020 10:53
[2020-12-27 12:00] VITALS: BP 117/58
[2020-12-27 16:00] VITALS: BP 129/60
[2020-12-27] MEDS: VANCOMYCIN 1500 MG/NS 500 ML IVPB IV SCH ×2 (16:34)
[2020-12-27 19:48] VITALS: BP 154/70
[2020-12-27] MEDS: MONTELUKAST 10 MG (SINGULAIR) TAB PO SCH (20:50)
[2020-12-28] MEDS: methylPREDNISolone 40 MG/ML (Solu-MEDROL) VIAL IV SCH ×3 (00:02→18:15)
[2020-12-28 00:22] VITALS: BP 124/58
[2020-12-28] MEDS: PIPERACILLIN/TAZOBACTAM (BULK) 4.5 GM in NS (IVPB) 100 ML IV SCH ×3 (01:41→18:00)
[2020-12-28] MEDS: RT-ALBUTEROL SULF 2.5 MG/3 ML PRE-MIX VIAL IH SCH ×6 (02:41→22:17)
[2020-12-28 03:46] VITALS: BP 133/63
[2020-12-28] MEDS: inSUlin ASPART (NovoLOG) 1 UNIT/0.01 ML (CHARGE PER UNIT) SC SCH ×4 (05:26→20:31)
[2020-12-28] MEDS: VANCOMYCIN 1500 MG/NS 500 ML IVPB IV SCH ×2 (05:26)
[2020-12-28] MEDS: UMECLIDINIUM BROMIDE (INCRUSE ELLIPTA) 7'S IH SCH (06:40)
[2020-12-28] MEDS: ADVAIR HFA 115/21 MCG INHALER 8 GM IH SCH ×2 (06:41→18:26)
[2020-12-28 07:19] LABS: BASOPHILS % (AUTO) 0 % (0-10); EOSINOPHILS % (AUTO) 0 % (0-10); HEMATOCRIT 35 % (35-52); HEMOGLOBIN 10.7 g/dL (11.5-16.0); LYMPHOCYTES # (AUTO) 1.2 10^3/uL (1.0-4.0); LYMPHOCYTES % (AUTO) 10 % (12-44); MEAN CORPUSCULAR HEMOGLOBIN 29 pg (25-34); MEAN CORPUSCULAR HGB CONC 31 g/dL (32-36); MEAN CORPUSCULAR VOLUME 96 fL (80-99); MONOCYTES # (AUTO) 0.4 10^3/uL (0.0-1.0); MONOCYTES % (AUTO) 3 % (0-12); NEUTROPHILS # (AUTO) 9.8 10^3/uL (1.8-7.8); NEUTROPHILS % (AUTO) 86 % (42-75); PLATELET COUNT 295 10^3/uL (130-400); WHITE BLOOD COUNT 11.4 10^3/uL (4.3-11.0)
[2020-12-28 07:36] LABS: ALBUMIN 3.6 GM/DL (3.2-4.5); BILIRUBIN,TOTAL 0.2 MG/DL (0.1-1.0); CALCIUM 9.2 MG/DL (8.5-10.1); CREATININE SERUM 0.94 MG/DL (0.60-1.30); POTASSIUM 4.1 MMOL/L (3.6-5.0); TOTAL PROTEIN 6.8 GM/DL (6.4-8.2)
[2020-12-28 07:50] VITALS: BP 168/73
[2020-12-28] MEDS: APIXABAN 5 MG (ELIQUIS) TABLET PO SCH ×2 (08:02→20:31)
[2020-12-28] MEDS: LOSARTAN 50 MG (COZAAR) TAB PO SCH (08:02)
[2020-12-28] MEDS: cloNIDine 0.1 MG (CATAPRES) TAB PO SCH ×2 (08:02→20:31)
[2020-12-28] MEDS: LORATADINE (CLARITIN) 10 MG TAB PO SCH (08:02)
[2020-12-28] MEDS: LEVOTHYROXINE 50 MCG (LEVOTHROID) TAB PO SCH (08:03)
[2020-12-28] MEDS: PANTOPRAZOLE 40 MG (PROTONIX) TAB PO SCH (08:03)
[2020-12-28] MEDS: TRIAMTERENE/HCTZ 75-50 (MAXZIDE,DYAZIDE) TABLET PO SCH (08:03)
[2020-12-28] MEDS: SENNA W/DOCUSATE (SENOKOT S) TABLET PO SCH ×2 (08:07→20:32)
[2020-12-28] MEDS ORDERED: methylPREDNISolone 40 MG/ML (Solu-MEDROL) VIAL IV SCH (09:00)
--- NOTE | 2020-12-28 11:16 | Progress Note - Hospitalist ---
Subjective HPI/CC On Admission Date Seen by Provider: Dec 28, 2020 Time Seen by Provider: 11:00 CC: Dyspnea with wheezing post COVID 09/2020 HPI: This is a clinic patient of mine who I admitted from my clinic due to wors ened respiratory status. COVID PNA required lengthy stay at [facility] 09/2020. All labs and images reviewed. Patient feels better but still wheezing. Subjective/Events-last exam Patient sleeping currently in her chair and sleeping deeply so I did not disturb Conferred with RN Labs stable Sugars noted Decreasing IV steroids O2 maintained Review of Systems General: Fatigue, Malaise Focused Exam Lactate Level 12/25/20 18:43: Lactic Acid Level 1.94 Objective Exam Vital Signs Vital Signs Date Time Temp Pulse Resp B/P (MAP) Pulse Ox O2 Delivery O2 Flow Rate FiO2 12/28/20 15:49 35.8 84 22 137/61 (86) 99 Nasal Cannula 1.00 Capillary Refill : Less Than 3 Seconds General Appearance: No Apparent Distress, WD/WN, Chronically ill, Other (sleeping) Respiratory: No Accessory Muscle Use, No Respiratory Distress, Decreased Breath Sounds Cardiovascular: Regular Rate, Rhythm Results/Procedures Lab Laboratory Tests 12/28/20 07:07 Patient resulted labs reviewed. Imaging: Reviewed Imaging Report Assessment/Plan Assessment and Plan Assess & Plan/Chief Complaint Assessment: Impending respiratory insufficiency Acute bacterial bronchitis AECOPD Recent COVID Recent PE with COVID RALPH on CPAP O2 dependence at home DM HTN HLP RA Myasthenia Gravis Plan: IV abx IV steroids Nebs ICS 12/28/20: Sleeping soundly Decrease steroids IV abx Diagnosis/Problems Diagnosis/Problems (1) Asthma exacerbation Status: Acute (2) Pulmonary embolism Status: Acute (3) Hypoxia Status: Acute (4) Myasthenia gravis (5) Hypothyroidism Status: Chronic (6) Diabetes mellitus Status: Chronic (7) Rheumatoid arthritis Status: Chronic (8) Acute bronchitis, bacterial Status: Acute FABIENNE ZAMORA DO Dec 28, 2020 11:16
[2020-12-28 11:39] VITALS: BP 123/62
[2020-12-28] MEDS ORDERED: TROUGH ORDER-PHARMACY XX NR (15:30)
[2020-12-28 15:49] VITALS: BP 137/61
[2020-12-28] MEDS: VANCOMYCIN 1 GM/NS 250 ML IVPB IV SCH ×2 (16:46)
[2020-12-28 19:31] VITALS: BP 137/67
[2020-12-28] MEDS: MONTELUKAST 10 MG (SINGULAIR) TAB PO SCH (20:31)
[2020-12-29 00:38] VITALS: BP 139/65
[2020-12-29] MEDS: PIPERACILLIN/TAZOBACTAM (BULK) 4.5 GM in NS (IVPB) 100 ML IV SCH ×2 (01:54→09:29)
[2020-12-29] MEDS: RT-ALBUTEROL SULF 2.5 MG/3 ML PRE-MIX VIAL IH SCH ×4 (02:01→14:24)
[2020-12-29 04:00] VITALS: BP 144/92
[2020-12-29] MEDS: methylPREDNISolone 40 MG/ML (Solu-MEDROL) VIAL IV SCH (04:49)
[2020-12-29] MEDS: VANCOMYCIN 1 GM/NS 250 ML IVPB IV SCH ×2 (04:50)
[2020-12-29] MEDS: inSUlin ASPART (NovoLOG) 1 UNIT/0.01 ML (CHARGE PER UNIT) SC SCH ×2 (04:52→12:15)
--- NOTE | 2020-12-29 05:16 | Pulmonary Progress Note ---
Subjective Time Seen by a Provider: 05:15 Subjective/Events-last exam PT is doing better. Sepsis Event Evaluation Height, Weight, BMI Height: 5'6.00" Weight: 297lbs. 0.0oz. [id number]; 51.84 BMI Method:Stated Exam Exam Vital Signs Date Time Temp Pulse Resp B/P (MAP) Pulse Ox O2 Delivery O2 Flow Rate FiO2 12/29/20 00:38 35.0 72 16 139/65 (89) 97 Nasal Cannula 1.00 12/28/20 22:18 96 Nasal Cannula 1.00 12/28/20 19:41 Nasal Cannula 1.00 12/28/20 19:31 35.8 75 17 137/67 (90) 97 Nasal Cannula 1.00 12/28/20 18:28 97 Nasal Cannula 1.00 12/28/20 18:26 97 Nasal Cannula 1.00 12/28/20 15:49 35.8 84 22 137/61 (86) 99 Nasal Cannula 1.00 12/28/20 14:33 96 Nasal Cannula 1.00 12/28/20 11:39 36.0 69 18 123/62 (82) 96 Nasal Cannula 2.00 12/28/20 10:59 98 Nasal Cannula 2.00 12/28/20 08:10 97 Nasal Cannula 2.00 12/28/20 07:50 36.2 69 20 168/73 (104) 97 Nasal Cannula 2.00 12/28/20 06:41 96 Nasal Cannula 2.00 I & O 12/29/20 07:00 Intake Total 2265 ml Balance 2265 ml Height & Weight Height: 5'6.00" Weight: 297lbs. 0.0oz. 134.852943dr; 51.84 BMI Method:Stated General Appearance: No Apparent Distress, WD/WN, Chronically ill HEENT: PERRL/EOMI, Normal ENT Inspection, Pharynx Normal, Moist Mucous Membranes Neck: Full Range of Motion, Normal Inspection, Non Tender Respiratory: No Accessory Muscle Use, No Respiratory Distress, Decreased Breath Sounds, Wheezing Cardiovascular: Regular Rate, Rhythm Extremity: Normal Capillary Refill, Normal Inspection, Normal Range of Motion, Non Tender, No Calf Tenderness, No Pedal Edema Neurologic/Psychiatric: Alert, Oriented x3, No Motor/Sensory Deficits, Normal Mood/Affect Skin: Normal Color, Warm/Dry Lymphatic: No Adenopathy Results Lab Laboratory Tests 12/27/20 06:35 12/28/20 07:07 Assessment/Plan Assessment/Plan AsthmaAE -albuterol to Q4 -incruse - advair -Solumedrol 40Q6 - Change to prednisone taper Post COVID r/o Acitive PNA -Currently on Vanco and Zosyn -D/C Vanco -Monitor -IS -CXR reviewed Allergic rhinitis -JENNY Burns DO Dec 29, 2020 05:16
[2020-12-29] MEDS: ADVAIR HFA 115/21 MCG INHALER 8 GM IH SCH (06:18)
[2020-12-29] MEDS: UMECLIDINIUM BROMIDE (INCRUSE ELLIPTA) 7'S IH SCH (06:18)
[2020-12-29 07:03] LABS: HEMOGLOBIN 10.7 g/dL (11.5-16.0); MEAN PLATELET VOLUME 9.9 fL (9.0-12.2); WHITE BLOOD COUNT 8.2 10^3/uL (4.3-11.0)
[2020-12-29 07:29] LABS: ALBUMIN 3.5 GM/DL (3.2-4.5); BILIRUBIN,TOTAL 0.3 MG/DL (0.1-1.0); CALCIUM 9.1 MG/DL (8.5-10.1); CREATININE SERUM 1.03 MG/DL (0.60-1.30); POTASSIUM 4.2 MMOL/L (3.6-5.0); TOTAL PROTEIN 6.6 GM/DL (6.4-8.2)
--- NOTE | 2020-12-29 07:37 | Diagnostic Imaging Report ---
EXAM: CHEST 1 VIEW, AP/PA ONLY INDICATION: Shortness of breath. COMPARISON: Chest radiograph 12/25/2020. FINDINGS: Cardiomegaly. Stable mild prominence of pulmonary vascularity. No focal pulmonary opacity. No pleural effusion or pneumothorax. No acute osseous findings. IMPRESSION: Stable cardiomegaly and mild pulmonary vascular congestion. Dictated by: Dictated on workstation # [id number]
[2020-12-29 08:00] VITALS: BP 147/67
[2020-12-29] MEDS ORDERED: predniSONE 10 MG TAB PO SCH (09:00)
[2020-12-29] MEDS: LORATADINE (CLARITIN) 10 MG TAB PO SCH (09:14)
[2020-12-29] MEDS: LEVOTHYROXINE 50 MCG (LEVOTHROID) TAB PO SCH (09:28)
[2020-12-29] MEDS: TRIAMTERENE/HCTZ 75-50 (MAXZIDE,DYAZIDE) TABLET PO SCH (09:29)
[2020-12-29] MEDS: LOSARTAN 50 MG (COZAAR) TAB PO SCH (09:29)
[2020-12-29] MEDS: APIXABAN 5 MG (ELIQUIS) TABLET PO SCH (09:29)
[2020-12-29] MEDS: cloNIDine 0.1 MG (CATAPRES) TAB PO SCH (09:29)
[2020-12-29] MEDS: PANTOPRAZOLE 40 MG (PROTONIX) TAB PO SCH (09:29)
[2020-12-29] MEDS: SENNA W/DOCUSATE (SENOKOT S) TABLET PO SCH (09:30)
[2020-12-29] MEDS ORDERED: PRD10T PO (12:34)
[2020-12-29] MEDS ORDERED: GUAI473L29 PO (12:34)
[2020-12-29] MEDS ORDERED: AMOX-358 PO (12:34)
--- NOTE | 2020-12-29 12:36 | Discharge Summary ---
Diagnosis/Chief Complaint Date of Admission Dec 25, 2020 at 17:59 Date of Discharge Discharge Date: Dec 29, 2020 Discharge Diagnosis Assessment: Status asthmaticus Bacterial bronchitis MG RA s/p COVID 09/2020 RALPH on CPAP DM HTN HLP Discharge Summary Discharge Physical Examination Allergies: Coded Allergies: adhesive tape (Verified Allergy, Intermediate, 02/21/20) BLISTERS AND RAW SKIN almond (Unverified Allergy, Intermediate, Abdominal Pain, 12/29/20) Pt states having pain when she eat them. amlodipine (Verified Allergy, Unknown, 02/22/13) erythromycin base (Verified Allergy, Unknown, 02/22/13) Uncoded Allergies: ALMONDS (Adverse Reaction, Mild, 02/22/20) SHE HAS PAIN ALL OVER WHEN SHE EATS THEM Vitals & I&Os Vital Signs Date Time Temp Pulse Resp B/P (MAP) Pulse Ox O2 Delivery O2 Flow Rate FiO2 12/29/20 15:05 36.2 66 16 147/67 93 Nasal Cannula 1.00 General Appearance: Alert, Oriented X3, Cooperative Respiratory: Clear to Auscultation Cardiovascular: Regular Rate Neuro: Normal Gait Hospital Course Was the Problem List Reviewed?: Yes Course: patient had an uneventful course after admitted from my clinic for continued asthma exacerbation and impending insufficiency given asthma, RALPH, MG and recent COVID. Patient did well and tolerated bax and IV steroids and Nebs well along with O2 dependence. Home meds restarted. Patient felt well enough to DC and have close f/u with me. Labs (last 24 hrs) Laboratory Tests 12/25/20 18:43: White Blood Count 9.0, Red Blood Count 3.97, Hemoglobin 11.9, Hematocrit 38, Mean Corpuscular Volume 96, Mean Corpuscular Hemoglobin 30, Mean Corpuscular Hemoglobin Concent 31L, Red Cell Distribution Width 14.5, Platelet Count 337, Mean Platelet Volume 9.8, Immature Granulocyte % (Auto) 1, Neutrophils (%) (Auto) 69, Lymphocytes (%) (Auto) 22, Monocytes (%) (Auto) 6, Eosinophils (%) (Auto) 1, Basophils (%) (Auto) 1, Neutrophils # (Auto) 6.2, Lymphocytes # (Auto) 2.0, Monocytes # (Auto) 0.6, Eosinophils # (Auto) 0.1, Basophils # (Auto) 0.1, Immature Granulocyte # (Auto) 0.1, Sodium Level 138, Potassium Level 4.3, Chloride Level 103, Carbon Dioxide Level 24, Anion Gap 11, Blood Urea Nitrogen 29H, Creatinine 0.96, Estimat Glomerular Filtration Rate 59, BUN/Creatinine Ratio 30, Glucose Level 148H, Lactic Acid Level 1.94, Calcium Level 9.2, Corrected Calcium 9.4, Total Bilirubin 0.3, Aspartate Amino Transf (AST/SGOT) 15, Alanine Aminotransferase (ALT/SGPT) 16, Alkaline Phosphatase 96, Troponin I < 0.028, B-Type Natriuretic Peptide 18.2, Total Protein 7.4, Albumin 3.8, Procalcitonin 0.03 12/25/20 21:42: Glucometer 158H 12/25/20 23:03: Blood Gas Puncture Site RIGHT RADIAL, Blood Gas Patient Temperature 36, Arterial Blood pH 7.41, Arterial Blood Partial Pressure CO2 40, Arterial Blood Partial Pressure O2 98H, Arterial Blood HCO3 26, Arterial Blood Total CO2 26.8, Arterial Blood Oxygen Saturation 99, Arterial Blood Base Excess 1.2, Carlos Test POSITIVE, Blood Gas Ventilator Setting NO, Blood Gas Inspired Oxygen 3 12/26/20 03:30: White Blood Count 9.8, Red Blood Count 3.87, Hemoglobin 11.5, Hematocrit 36, Mean Corpuscular Volume 94, Mean Corpuscular Hemoglobin 30, Mean Corpuscular Hemoglobin Concent 32, Red Cell Distribution Width 14.2, Platelet Count 309, Mean Platelet Volume 9.8, Immature Granulocyte % (Auto) 1, Neutrophils (%) (Auto) 91H, Lymphocytes (%) (Auto) 8L, Monocytes (%) (Auto) 1, Eosinophils (%) (Auto) 0, Basophils (%) (Auto) 0, Neutrophils # (Auto) 8.9H, Lymphocytes # (Auto) 0.8L, Monocytes # (Auto) 0.1, Eosinophils # (Auto) 0.0, Basophils # (Auto) 0.0, Immature Granulocyte # (Auto) 0.1, Sodium Level 138, Potassium Level 4.5, Chloride Level 104, Carbon Dioxide Level 22, Anion Gap 12, Blood Urea Nitrogen 24H, Creatinine 0.86, Estimat Glomerular Filtration Rate > 60, BUN/Creatinine Ratio 28, Glucose Level 197H, Calcium Level 9.0, Procalcitonin 0.03, Neutrophils % (Manual) 87, Lymphocytes % (Manual) 7, Monocytes % (Manual) 2, Band Neutrophils 4, Blood Morphology Comment NORMAL, Phosphorus Level 3.2, Magnesium Level 2.0 12/26/20 11:05: Glucometer 229H 12/26/20 15:54: Glucometer 249H 12/26/20 20:13: Glucometer 251H 12/27/20 06:17: Glucometer 184H 12/27/20 06:35: White Blood Count 12.1H, Red Blood Count 3.65L, Hemoglobin 10.8L, Hematocrit 35, Mean Corpuscular Volume 95, Mean Corpuscular Hemoglobin 30, Mean Corpuscular Hemoglobin Concent 31L, Red Cell Distribution Width 14.6H, Platelet Count 295, Mean Platelet Volume 10.0, Immature Granulocyte % (Auto) 1, Neutrophils (%) (Auto) 90H, Lymphocytes (%) (Auto) 7L, Monocytes (%) (Auto) 2, Eosinophils (%) (Auto) 0, Basophils (%) (Auto) 0, Neutrophils # (Auto) 10.9H, Lymphocytes # (Auto) 0.9L, Monocytes # (Auto) 0.2, Eosinophils # (Auto) 0.0, Basophils # (Auto) 0.0, Immature Granulocyte # (Auto) 0.1, Sodium Level 138, Potassium Level 4.3, Chloride Level 105, Carbon Dioxide Level 22, Anion Gap 11, Blood Urea Nitrogen 23H, Creatinine 0.96, Estimat Glomerular Filtration Rate 59, BUN /Creatinine Ratio 24, Glucose Level 205H, Calcium Level 9.4, Corrected Calcium 9.7, Total Bilirubin 0.3, Aspartate Amino Transf (AST/SGOT) 11, Alanine Aminotransferase (ALT/SGPT) 15, Alkaline Phosphatase 78, Total Protein 6.9, Albumin 3.6, Vancomycin Level Trough 23.5H 12/27/20 11:38: Glucometer 246H 12/27/20 15:00: Vancomycin Level Trough 14.9 12/27/20 15:42: Glucometer 196H 12/27/20 20:01: Glucometer 277H 12/28/20 05:11: Glucometer 180H 12/28/20 07:07: White Blood Count 11.4H, Red Blood Count 3.65L, Hemoglobin 10.7L, Hematocrit 35, Mean Corpuscular Volume 96, Mean Corpuscular Hemoglobin 29, Mean Corpuscular Hemoglobin Concent 31L, Red Cell Distribution Width 14.9H, Platelet Count 295, Mean Platelet Volume 10.0, Immature Granulocyte % (Auto) 0, Neutrophils (%) (Auto) 86H, Lymphocytes (%) (Auto) 10L, Monocytes (%) (Auto) 3, Eosinophils (%) (Auto) 0, Basophils (%) (Auto) 0, Neutrophils # (Auto) 9.8H, Lymphocytes # (Auto) 1.2, Monocytes # (Auto) 0.4, Eosinophils # (Auto) 0.0, Basophils # (Auto) 0.0, Immature Granulocyte # (Auto) 0.1, Sodium Level 138, Potassium Level 4.1, Chloride Level 104, Carbon Dioxide Level 23, Anion Gap 11, Blood Urea Nitrogen 24H, Creatinine 0.94, Estimat Glomerular Filtration Rate 60, BUN/Creatinine Ratio 26, Glucose Level 196H, Calcium Level 9.2, Corrected Calcium 9.5, Total Bilirubin 0.2, Aspartate Amino Transf (AST/SGOT) 9, Alanine Aminotransferase (ALT/SGPT) 15, Alkaline Phosphatase 80, Total Protein 6.8, Albumin 3.6 12/28/20 11:17: Glucometer 192H 12/28/20 15:31: Glucometer 185H 12/28/20 15:35: Vancomycin Level Trough 19.7 12/28/20 19:56: Glucometer 188H 12/29/20 04:06: Glucometer 179H 12/29/20 06:45: White Blood Count 8.2, Red Blood Count 3.62L, Hemoglobin 10.7L, Hematocrit 34L, Mean Corpuscular Volume 95, Mean Corpuscular Hemoglobin 30, Mean Corpuscular Hemoglobin Concent 31L, Red Cell Distribution Width 14.9H, Platelet Count 269, Mean Platelet Volume 9.9, Sodium Level 138, Potassium Level 4.2, Chloride Level 104, Carbon Dioxide Level 25, Anion Gap 9, Blood Urea Nitrogen 24H, Creatinine 1.03, Estimat Glomerular Filtration Rate 54, BUN/Creatinine Ratio 23, Glucose Level 170H, Calcium Level 9.1, Corrected Calcium 9.5, Total Bilirubin 0.3, Aspartate Amino Transf (AST/SGOT) 10, Alanine Aminotransferase (ALT/SGPT) 13, Alkaline Phosphatase 73, Total Protein 6.6, Albumin 3.5 12/29/20 10:51: Glucometer 246H Microbiology 12/25/20 Blood Culture - Preliminary, Resulted No growth Pending Labs Microbiology Date/Time Source Procedure Growth Status 12/25/20 18:50 Peripheral Lt Ac Blood Culture - Preliminary No growth Resulted 12/25/20 18:43 Peripheral Rt Ac Blood Culture - Preliminary No growth Resulted Laboratory Tests 12/25/20 18:43: White Blood Count 9.0, Red Blood Count 3.97, Hemoglobin 11.9, Hematocrit 38, Mean Corpuscular Volume 96, Mean Corpuscular Hemoglobin 30, Mean Corpuscular Hemoglobin Concent 31, Red Cell Distribution Width 14.5, Platelet Count 337, Mean Platelet Volume 9.8, Immature Granulocyte % (Auto) 1, Neutrophils (%) (Auto) 69, Lymphocytes (%) (Auto) 22, Monocytes (%) (Auto) 6, Eosinophils (%) (Auto) 1, Basophils (%) (Auto) 1, Neutrophils # (Auto) 6.2, Lymphocytes # (Auto) 2.0, Monocytes # (Auto) 0.6, Eosinophils # (Auto) 0.1, Basophils # (Auto) 0.1, Immature Granulocyte # (Auto) 0.1, Sodium Level 138, Potassium Level 4.3, Chloride Level 103, Carbon Dioxide Level 24, Anion Gap 11, Blood Urea Nitrogen 29, Creatinine 0.96, Estimat Glomerular Filtration Rate 59, BUN/Creatinine Ratio 30, Glucose Level 148, Lactic Acid Level 1.94, Calcium Level 9.2, Corrected Calcium 9.4, Total Bilirubin 0.3, Aspartate Amino Transf (AST/SGOT) 15, Alanine Aminotransferase (ALT/SGPT) 16, Alkaline Phosphatase 96, Troponin I < 0.028, B- Type Natriuretic Peptide 18.2, Total Protein 7.4, Albumin 3.8, Procalcitonin 0.03 12/25/20 21:42: Glucometer 158 12/25/20 23:03: Blood Gas Puncture Site RIGHT RADIAL, Blood Gas Patient Temperature 36, Arterial Blood pH 7.41, Arterial Blood Partial Pressure CO2 40, Arterial Blood Partial Pressure O2 98, Arterial Blood HCO3 26, Arterial Blood Total CO2 26.8, Arterial Blood Oxygen Saturation 99, Arterial Blood Base Excess 1.2, Carlos Test POSITIVE, Blood Gas Ventilator Setting NO, Blood Gas Inspired Oxygen 3 12/26/20 03:30: White Blood Count 9.8, Red Blood Count 3.87, Hemoglobin 11.5, Hematocrit 36, Mean Corpuscular Volume 94, Mean Corpuscular Hemoglobin 30, Mean Corpuscular Hemoglobin Concent 32, Red Cell Distribution Width 14.2, Platelet Count 309, Mean Platelet Volume 9.8, Immature Granulocyte % (Auto) 1, Neutrophils (%) (Auto) 91, Lymphocytes (%) (Auto) 8, Monocytes (%) (Auto) 1, Eosinophils (%) (Auto) 0, Basophils (%) (Auto) 0, Neutrophils # (Auto) 8.9, Lymphocytes # (Auto) 0.8, Monocytes # (Auto) 0.1, Eosinophils # (Auto) 0.0, Basophils # (Auto) 0.0, Immature Granulocyte # (Auto) 0.1, Sodium Level 138, Potassium Level 4.5, Chloride Level 104, Carbon Dioxide Level 22, Anion Gap 12, Blood Urea Nitrogen 24, Creatinine 0.86, Estimat Glomerular Filtration Rate > 60, BUN/Creatinine Rat io 28, Glucose Level 197, Calcium Level 9.0, Procalcitonin 0.03, Neutrophils % (Manual) 87, Lymphocytes % (Manual) 7, Monocytes % (Manual) 2, Band Neutrophils 4, Blood Morphology Comment NORMAL, Phosphorus Level 3.2, Magnesium Level 2.0 12/26/20 11:05: Glucometer 229 12/26/20 15:54: Glucometer 249 12/26/20 20:13: Glucometer 251 12/27/20 06:17: Glucometer 184 12/27/20 06:35: White Blood Count 12.1, Red Blood Count 3.65, Hemoglobin 10.8, Hematocrit 35, Mean Corpuscular Volume 95, Mean Corpuscular Hemoglobin 30, Mean Corpuscular Hemoglobin Concent 31, Red Cell Distribution Width 14.6, Platelet Count 295, Mean Platelet Volume 10.0, Immature Granulocyte % (Auto) 1, Neutrophils (%) (Auto) 90, Lymphocytes (%) (Auto) 7, Monocytes (%) (Auto) 2, Eosinophils (%) (Auto) 0, Basophils (%) (Auto) 0, Neutrophils # (Auto) 10.9, Lymphocytes # (Auto) 0.9, Monocytes # (Auto) 0.2, Eosinophils # (Auto) 0.0, Basophils # (Auto) 0.0, Immature Granulocyte # (Auto) 0.1, Sodium Level 138, Potassium Level 4.3, Chloride Level 105, Carbon Dioxide Level 22, Anion Gap 11, Blood Urea Nitrogen 23, Creatinine 0.96, Estimat Glomerular Filtration Rate 59, BUN/Creatinine Ratio 24, Glucose Level 205, Calcium Level 9.4, Corrected Calcium 9.7, Total Bilirubin 0.3, Aspartate Amino Transf (AST/SGOT) 11, Alanine Aminotransferase (ALT/SGPT) 15, Alkaline Phosphatase 78, Total Protein 6.9, Albumin 3.6, Vancomycin Level Trough 23.5 12/27/20 11:38: Glucometer 246 12/27/20 15:00: Vancomycin Level Trough 14.9 12/27/20 15:42: Glucometer 196 12/27/20 20:01: Glucometer 277 12/28/20 05:11: Glucometer 180 12/28/20 07:07: White Blood Count 11.4, Red Blood Count 3.65, Hemoglobin 10.7, Hematocrit 35, Mean Corpuscular Volume 96, Mean Corpuscular Hemoglobin 29, Mean Corpuscular Hemoglobin Concent 31, Red Cell Distribution Width 14.9, Platelet Count 295, Me an Platelet Volume 10.0, Immature Granulocyte % (Auto) 0, Neutrophils (%) (Auto) 86, Lymphocytes (%) (Auto) 10, Monocytes (%) (Auto) 3, Eosinophils (%) (Auto) 0, Basophils (%) (Auto) 0, Neutrophils # (Auto) 9.8, Lymphocytes # (Auto) 1.2, Monocytes # (Auto) 0.4, Eosinophils # (Auto) 0.0, Basophils # (Auto) 0.0, Immature Granulocyte # (Auto) 0.1, Sodium Level 138, Potassium Level 4.1, Chloride Level 104, Carbon Dioxide Level 23, Anion Gap 11, Blood Urea Nitrogen 24, Creatinine 0.94, Estimat Glomerular Filtration Rate 60, BUN/Creatinine Ratio 26, Glucose Level 196, Calcium Level 9.2, Corrected Calcium 9.5, Total Bilirubin 0.2, Aspartate Amino Transf (AST/SGOT) 9, Alanine Aminotransferase (ALT/SGPT) 15, Alkaline Phosphatase 80, Total Protein 6.8, Albumin 3.6 12/28/20 11:17: Glucometer 192 12/28/20 15:31: Glucometer 185 12/28/20 15:35: Vancomycin Level Trough 19.7 12/28/20 19:56: Glucometer 188 12/29/20 04:06: Glucometer 179 12/29/20 06:45: White Blood Count 8.2, Red Blood Count 3.62, Hemoglobin 10.7, Hematocrit 34, Mean Corpuscular Volume 95, Mean Corpuscular Hemoglobin 30, Mean Corpuscular Hemoglobin Concent 31, Red Cell Distribution Width 14.9, Platelet Count 269, Mean Platelet Volume 9.9, Sodium Level 138, Potassium Level 4.2, Chloride Level 104, Carbon Dioxide Level 25, Anion Gap 9, Blood Urea Nitrogen 24, Creatinine 1.03, Estimat Glomerular Filtration Rate 54, BUN/Creatinine Ratio 23, Glucose Level 170, Calcium Level 9.1, Corrected Calcium 9.5, Total Bilirubin 0.3, Aspartate Amino Transf (AST/SGOT) 10, Alanine Aminotransferase (ALT/SGPT) 13, Alkaline Phosphatase 73, Total Protein 6.6, Albumin 3.5 12/29/20 10:51: Glucometer 246 Discharge Home Medications: Active Scripts Active Guaifenesin AC Cough Syrup (Guaifenesin/Codeine Phosphate) 473 Ml Liquid 10 Ml PO Q4H Augmentin 875-125 Tablet (Amoxicillin/Potassium Clav) 1 Each Tablet 1 Each PO BID Prednisone 10 Mg Tab 60 Mg PO DAILY Guaifenesin AC Cough Syrup (Guaifenesin/Codeine Phosphate) 473 Ml Liquid 5 Ml PO Q4H PRN Potassium Chloride 20 Meq Tab.er.prt 20 Meq PO BID Alprazolam 0.5 Mg Tablet 0.5 Mg PO Q3HR PRN Eliquis (Apixaban) 5 Mg Tablet 5 Mg PO BID Reported Furosemide 40 Mg Tablet 40 Mg PO UD All Day Allergy (Cetirizine HCl) 10 Mg Tablet 10 Mg PO DAILY Melatonin 5 Mg Tablet 5 Mg PO HS PRN Losartan Potassium 50 Mg Tablet 50 Mg PO DAILY Citalopram HBr (Citalopram Hydrobromide) 20 Mg Tablet 20 Mg PO HS Calcium 500 + Vit D 200 Caplet (Calcium Carbonate/Vitamin D3) 1 Each Tablet 1 Each PO BID Pantoprazole Sodium 40 Mg Tablet.dr 40 Mg PO DAILY Proair Hfa (Albuterol Sulfate) 1 Puff Puff 2 Puff INH Q4H PRN Atorvastatin Calcium 20 Mg Tablet 20 Mg PO DAILY Triamterene-Hctz 37.5-25 mg Cp (Triamterene/Hydrochlorothiazid) 1 Each Capsule 1 Cap PO DAILY 04-03-2020 #100/100 DAY SUPPLY Spiriva Respimat 1.25MCG/ACTUATION (Tiotropium [place]) 4 Gm Mist.inhal 2 Puff INH DAILY Breo Ellipta 200-25 Mcg INH (Fluticasone/Vilanterol) 1 Each Blst.w.dev 1 Puff INH DAILY Montelukast Sodium 10 Mg Tablet 10 Mg PO DAILY Clonidine HCl 0.1 Mg Tablet 0.1 Mg PO BID Levothyroxine Sodium 50 Mcg Tablet 50 Mcg PO DAILY Instructions to patient/family Please see electronic discharge instructions given to patient. Diagnosis/Problems Diagnosis/Problems (1) Asthma exacerbation Status: Acute (2) Pulmonary embolism Status: Acute (3) Hypoxia Status: Acute (4) Myasthenia gravis (5) Hypothyroidism Status: Chronic (6) Diabetes mellitus Status: Chronic (7) Rheumatoid arthritis Status: Chronic (8) Acute bronchitis, bacterial Status: Acute FABIENNE ZAMORA DO Dec 29, 2020 12:36
[2020-12-29 15:05] VITALS: BP 147/67
[2020-12-29] MEDS ORDERED: TROUGH ORDER-PHARMACY XX NR (15:30)
== END 2020-12-29 15:07 | disposition home or self-care (01) | DRG 202 ==
LOC: CSD 17:59 → 4TH 12-26 15:45
PROVIDERS: ADMIT Internal Medicine; ATTEND Internal Medicine
DX: J45.902 Unspecified asthma with status asthmaticus (principal); J18.9 Pneumonia, unspecified organism; J44.1 Chronic obstructive pulmonary disease with (acute) exacerbation; J44.0 Chronic obstructive pulmonary disease with (acute) lower respiratory infection; Z68.43 Body mass index [BMI] 50.0-59.9, adult; M06.9 Rheumatoid arthritis, unspecified; Z86.16 Personal history of COVID-19; G47.33 Obstructive sleep apnea (adult) (pediatric); E11.9 Type 2 diabetes mellitus without complications; I10 Essential (primary) hypertension; E78.5 Hyperlipidemia, unspecified; G70.00 Myasthenia gravis without (acute) exacerbation; R06.89 Other abnormalities of breathing; J30.9 Allergic rhinitis, unspecified; E03.9 Hypothyroidism, unspecified; E66.9 Obesity, unspecified; Z99.81 Dependence on supplemental oxygen; Z86.711 Personal history of pulmonary embolism; Z88.2 Allergy status to sulfonamides; Z88.8 Allergy status to other drugs, medicaments and biological substances
CPT/HCPCS: 36415; 36600; 71045; 80048; 80053; 80202; 82805; 82962; 83605; 83735; 83880; 84100; 84145; 84484; 85007; 85025; 85027; 87040; 94640; 94664; 94760

== ENCOUNTER 2021-01-26 21:08 | Observation (INO) | payer BC ==
[~2021-01-26] VITALS: Ht 167.7 cm; Wt 163.0 kg
[~2021-01-26 21:08] MED LIST changes: +FURO40TA4 PO
[2021-01-26] MEDS ORDERED: ONDANSETRON 4 MG/2 ML (SDV) Z0FRAN IVP ONE (21:30)
[2021-01-26] MEDS ORDERED: LACTATED RINGERS 1,000 ML IV ONE (21:30)
[2021-01-26] MEDS ORDERED: SCOPOLAMINE 1.5 MG (TRANSDERM-SCOP) PATCH TD ONE (21:30)
[2021-01-26 21:34] LABS: BASOPHILS % (AUTO) 0 % (0-10); EOSINOPHILS # (AUTO) 0.1 10^3/uL (0.0-0.3); EOSINOPHILS % (AUTO) 1 % (0-10); HEMATOCRIT 43 % (35-52); HEMOGLOBIN 13.3 g/dL (11.5-16.0); LYMPHOCYTES # (AUTO) 0.3 10^3/uL (1.0-4.0); LYMPHOCYTES % (AUTO) 5 % (12-44); MEAN CORPUSCULAR HEMOGLOBIN 29 pg (25-34); MEAN CORPUSCULAR HGB CONC 31 g/dL (32-36); MEAN CORPUSCULAR VOLUME 93 fL (80-99); MEAN PLATELET VOLUME 9.5 fL (9.0-12.2); MONOCYTES # (AUTO) 0.4 10^3/uL (0.0-1.0); MONOCYTES % (AUTO) 6 % (0-12); NEUTROPHILS # (AUTO) 5.4 10^3/uL (1.8-7.8); NEUTROPHILS % (AUTO) 87 % (42-75); PLATELET COUNT 316 10^3/uL (130-400); WHITE BLOOD COUNT 6.3 10^3/uL (4.3-11.0)
--- NOTE | 2021-01-26 21:45 | ED GI ---
General Chief Complaint: Abdominal/GI Problems Stated Complaint: N/V Nursing Triage Note: PT TO ROOM 07 [facility]IA [facility] WITH C/O N/V. PT STATES THAT SHE HAS BEEN TAKING ZOFRAN AT HOME WITHOUT RELIEF. PT IS ON HOME O2. Sepsis Screen: No Definite Risk Source of Information: Patient, Old Records History of Present Illness Date Seen by Provider: Jan 26, 2021 Time Seen by Provider: 21:15 Initial Comments PT ARRIVES VIA EMS FROM HOME STATES SHE WOKE UP AT 0700 THIS AM, AND WAS NAUSEATED LEFT WORK AT 11:00 AM DUE TO VOMITING HAS VOMITED UNKNOWN NUMBER OF TIMES--CAN'T KEEP ANYTHING DOWN HAS HAD 3 "LOOSE STOOLS--BUT NOT DIARRHEA" TODAY, PER PT C/O EPIGASTRIC PAIN NO KNOWN FEVER NO URINARY SYMPTOMS AND VOIDING A NORMAL AMOUNT C/O DIZZINESS WITH MOVEMENTS EMS GAVE ZOFRAN 4 MG IV WITH MUCH IMPROVEMENT IN NAUSEA. TOOK HOME ORAL ZOFRAN WITHOUT RELIEF TODAY. PT TESTED POSITIVE FOR COVID-19 ON 10/01/20 AND HAS HAD MULTIPLE LENGTHY HOSPITALIZATIONS SINCE THEN, DUE TO PERSISTENT RESPIRATORY ISSUES. PT MOST RECENTLY HOSPITALIZED 12/25/20-12/29/20 FOR BRONCHITIS AND STATUS ASTHMATICUS. PT HAD HER FIRST COVID-19 VACCINATION ON 01/21/21. PT IS ON HOME O2 AT 2L/NC CONTINOUSLY PT DOES NOT HAVE ANY NEW OR WORSENING RESPIRATORY COMPLAINTS TODAY. PT ALSO HAS MYASTHENIA GRAVIS AND RHEUMATOID ARTHRITIS PCP: DR. ZAMORA. Allergies and Home Medications Allergies Coded Allergies: adhesive tape (Verified Allergy, Intermediate, 02/21/20) BLISTERS AND RAW SKIN almond (Unverified Allergy, Intermediate, Abdominal Pain, 12/29/20) Pt states having pain when she eat them. amlodipine (Verified Allergy, Unknown, 02/22/13) erythromycin base (Verified Allergy, Unknown, 02/22/13) Uncoded Allergies: ALMONDS (Adverse Reaction, Mild, 02/22/20) SHE HAS PAIN ALL OVER WHEN SHE EATS THEM Home Medications Albuterol Sulfate 1 Puff Puff, 2 PUFF INH Q4H PRN for SHORTNESS OF BREATH, (Reported) Alprazolam 0.5 Mg Tablet, 0.5 MG PO Q3HR PRN for ANXIETY Prescribed by: FABIENNE ZAMORA on 10/29/20 0851 Amoxicillin/Potassium Clav 1 Each Tablet, 1 EACH PO BID Prescribed by: FABIENNE ZAMORA on 12/29/20 1234 Apixaban 5 Mg Tablet, 5 MG PO BID Prescribed by: FABIENNE ZAMORA on 10/29/20 0850 Atorvastatin Calcium 20 Mg Tablet, 20 MG PO DAILY, (Reported) Calcium Carbonate/Vitamin D3 1 Each Tablet, 1 EACH PO BID, (Reported) Cetirizine HCl 10 Mg Tablet, 10 MG PO DAILY, (Reported) Citalopram Hydrobromide 20 Mg Tablet, 20 MG PO HS, (Reported) Clonidine HCl 0.1 Mg Tablet, 0.1 MG PO BID, (Reported) Fluticasone/Vilanterol 1 Each Blst.w.dev, 1 PUFF INH DAILY, (Reported) Furosemide 40 Mg Tablet, 40 MG PO UD, (Reported) Guaifenesin/Codeine Phosphate 473 Ml Liquid, 5 ML PO Q4H PRN for COUGH Prescribed by: FABIENNE ZAMORA on 10/29/20 0851 Guaifenesin/Codeine Phosphate 473 Ml Liquid, 10 ML PO Q4H Prescribed by: FABIENNE ZAMORA on 12/29/20 1235 Levothyroxine Sodium 50 Mcg Tablet, 50 MCG PO DAILY, (Reported) Losartan Potassium 50 Mg Tablet, 50 MG PO DAILY, (Reported) Melatonin 5 Mg Tablet, 5 MG PO HS PRN for SLEEP, (Reported) Montelukast Sodium 10 Mg Tablet, 10 MG PO DAILY, (Reported) Pantoprazole Sodium 40 Mg Tablet.dr, 40 MG PO DAILY, (Reported) Potassium Chloride 20 Meq Tab.er.prt, 20 MEQ PO BID Prescribed by: FABIENNE ZAMORA on 10/29/20 0850 Prednisone 10 Mg Tab, 60 MG PO DAILY Prescribed by: FABIENNE ZAMORA on 12/29/20 1234 Tiotropium Hope 4 Gm Mist.inhal, 2 PUFF INH DAILY, (Reported) Triamterene/Hydrochlorothiazid 1 Each Capsule, 1 CAP PO DAILY, (Reported) 04-03-2020 #100/100 DAY SUPPLY Patient Home Medication List Home Medication List Reviewed: Yes Review of Systems Review of Systems Constitutional: No chills, No diaphoresis; dizziness; No fever EENTM: No Symptoms Reported Respiratory: See HPI, Shortness of Air Cardiovascular: Denies Chest Pain, Denies Edema, Denies Irregular Heart Rate; Lightheadedness; Denies Palpitations, Denies Syncope Gastrointestinal: See HPI, Abdominal Pain, Diarrhea, Nausea, Poor Fluid Intake, Vomiting Genitourinary: No Symptoms Reported Musculoskeletal: other (EDEMA) Skin: no symptoms reported Psychiatric/Neurological: See HPI (DIZZINESS), Anxiety Endocrine: No Symptoms Reported Hematologic/Lymphatic: No Symptoms Reported Past Inuxbpt-Ortgsz-Sretqf Hx Past Med/Social Hx: Reviewed and Corrections made Patient Social History Alcohol Use: Denies Use Smoking Status: Never a Smoker 2nd Hand Smoke Exposure: No Recent Infectious Disease Expo: No Recent Hopitalizations: Yes ( FOR INPATIENT REHAB) Immunizations Up To Date Tetanus Booster (TDap): Less than 5yrs PED Vaccines UTD: Yes Date of Pneumonia Vaccine: Jan 04, 2018 Date of Influenza Vaccine: Sep 12, 2020 Seasonal Allergies Seasonal Allergies: Yes Past Medical History Surgeries: Yes (FOOT SURGERY,LEFT LUMPECTOMY, R KNEE MINISCUS REPAIR) Breast, Orthopedic Respiratory: Yes (CHRONIC COUGH; P.E. WITH COVID-19 INFECTION 09/2020. 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 Sexually Transmitted Disease: No Genitourinary: Yes Bladder Infection Gastrointestinal: No Musculoskeletal: Yes Rheumatoid Arthritis, Chronic Back Pain Endocrine: Yes (OBESITY; MYASTHENIA GRAVIS) Hypothyroidsim, Diabetes, Non-Insulin dep HEENT: Yes Double Vision Loss of Vision: Denies Hearing Impairment: Denies Cancer: No Psychosocial: Yes Anxiety, Depression Integumentary: No Blood Disorders: No Adverse Reaction/Blood Tranf: No Family Medical History Alcoholism G8 BROTHER G8 SISTER Alzheimer's disease 19 MOTHER Arthritis 19 FATHER Asthma G8 SISTER Cardiovascular disease 19 FATHER Cataracts 19 FATHER Coronary thrombosis 19 FATHER Deafness or hearing loss SON Diabetes mellitus 19 FATHER G8 SISTER G8 SISTER Drug abuse G8 SISTER Hypertension 19 FATHER G8 SISTER G8 SISTER Kidney disease 19 FATHER Respiratory disorder G8 SISTER G8 SISTER Seizure disorder SON Severe allergy SON Heart Disease, Diabetes, Hypertension Physical Exam Vital Signs Vital Signs - First Documented 01/26/21 21:14 Temp 37.6 Pulse 99 Resp 19 B/P (MAP) 172/89 (116) O2 Delivery Room Air Capillary Refill : Less Than 3 Seconds Height/Weight/BMI Height: 5'6.00" Weight: 297lbs. 0.0oz. 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, no motor/sensory deficits, alert, oriented x 3 Skin: normal color, warm/dry Progress/Results/Core Measures Results/Orders Lab Results Laboratory Tests Test 01/26/21 01:15 01/26/21 21:25 Range/Units Urine Color YELLOW Urine Clarity SL CLOUDY Urine pH 6.5 5-9 Urine Specific Emery <=1.005 1.016-1.022 Urine Protein NEGATIVE NEGATIVE Urine Glucose (UA) 1+ H NEGATIVE Urine Ketones NEGATIVE NEGATIVE Urine Nitrite NEGATIVE NEGATIVE Urine Bilirubin NEGATIVE NEGATIVE Urine Urobilinogen 0.2 < = 1.0 MG/DL Urine Leukocyte Esterase NEGATIVE NEGATIVE Urine RBC (Auto) NEGATIVE NEGATIVE Urine RBC NONE /HPF Urine WBC 2-5 /HPF Urine Crystals PRESENT H /LPF Urine Amorphous Sediment RARE JU URATES H /LPF Urine Bacteria TRACE /HPF Urine Casts NONE /LPF Urine Mucus NEGATIVE /LPF Urine Culture Indicated NO White Blood Count 6.3 4.3-11.0 10^3/uL Red Blood Count 4.59 3.80-5.11 10^6/uL Hemoglobin 13.3 11.5-16.0 g/dL Hematocrit 43 35-52 % Mean Corpuscular Volume 93 80-99 fL Mean Corpuscular Hemoglobin 29 25-34 pg Mean Corpuscular Hemoglobin Concent 31 L 32-36 g/dL Red Cell Distribution Width 14.0 10.0-14.5 % Platelet Count 316 130-400 10^3/uL Mean Platelet Volume 9.5 9.0-12.2 fL Immature Granulocyte % (Auto) 1 % Neutrophils (%) (Auto) 87 H 42-75 % Lymphocytes (%) (Auto) 5 L 12-44 % Monocytes (%) (Auto) 6 0-12 % Eosinophils (%) (Auto) 1 0-10 % Basophils (%) (Auto) 0 0-10 % Neutrophils # (Auto) 5.4 1.8-7.8 10^3/uL Lymphocytes # (Auto) 0.3 L 1.0-4.0 10^3/uL Monocytes # (Auto) 0.4 0.0-1.0 10^3/uL Eosinophils # (Auto) 0.1 0.0-0.3 10^3/uL Basophils # (Auto) 0.0 0.0-0.1 10^3/uL Immature Granulocyte # (Auto) 0.1 0.0-0.1 10^3/uL Neutrophils % (Manual) 78 % Lymphocytes % (Manual) 3 % Monocytes % (Manual) 6 % Eosinophils % (Manual) 0 % Basophils % (Manual) 0 % Band Neutrophils 9 % Reactive Lymphocytes 4 % Hypochromasia SLIGHT Anisocytosis SLIGHT Sodium Level 141 135-145 MMOL/L Potassium Level 4.3 3.6-5.0 MMOL/L Chloride Level 103 98-107 MMOL/L Carbon Dioxide Level 25 21-32 MMOL/L Anion Gap 13 5-14 MMOL/L Blood Urea Nitrogen 22 H 7-18 MG/DL Creatinine 0.70 0.60-1.30 MG/DL Estimat Glomerular Filtration Rate > 60 BUN/Creatinine Ratio 31 Glucose Level 178 H 70-105 MG/DL Calcium Level 9.3 8.5-10.1 MG/DL Corrected Calcium 9.5 8.5-10.1 MG/DL Magnesium Level 1.9 1.6-2.4 MG/DL Total Bilirubin 0.5 0.1-1.0 MG/DL Aspartate Amino Transf (AST/SGOT) 24 5-34 U/L Alanine Aminotransferase (ALT/SGPT) 25 0-55 U/L Alkaline Phosphatase 86 40-136 U/L Total Protein 7.3 6.4-8.2 GM/DL Albumin 3.8 3.2-4.5 GM/DL Amylase Level 52 25-125 U/L Lipase 29 8-78 U/L My Orders Orders - VIRGINIA NAJERA DO Ed Iv/Invasive Line Start (01/26/21 21:20) Ekg Tracing (01/26/21 21:20) Monitor-Rhythm Ecg Trace Only (01/26/21 21:20) Amylase (01/26/21 21:20) Cbc With Automated Diff (01/26/21 21:20) Comprehensive Metabolic Panel (01/26/21 21:20) Lipase (01/26/21 21:20) Magnesium (01/26/21 21:20) Ua Culture If Indicated (01/26/21 21:20) Ed Iv/Invasive Line Start (01/26/21 21:20) Lactated Ringers (Lr 1000 Ml Iv Solution (01/26/21 21:30) Ondansetron Injection (Zofran Injectio (01/26/21 21:30) Scopolamine Patch (Transderm-Scop Patch) (01/26/21 21:30) Manual Differential (01/26/21 21:25) Ct Abdomen/Pelvis W (01/26/21 22:11) Iohexol Injection (Omnipaque 350 Mg/Ml 1 (01/26/21 22:45) Contrast Received (Contrast Received) (01/26/21 22:45) Sodium Chloride Flush (Catheter Flush Sy (01/26/21 22:45) Ns (Ivpb) (Sodium Chloride 0.9% Ivpb Bag (01/26/21 22:45) Medications Given in ED Current Medications Medications Dose Ordered Sig/Mayela Route Start Time Stop Time Status Last Admin Dose Admin Iohexol 100 ml ONCE ONCE IV 01/26/21 22:45 01/26/21 22:46 DC 01/26/21 22:49 100 ML Lactated Ringer's 1,000 ml @ 0 mls/hr Q0M ONCE IV 01/26/21 21:30 01/26/21 21:31 DC 01/26/21 21:30 999 MLS/HR Ondansetron HCl 4 mg ONCE ONCE IVP 01/26/21 21:30 01/26/21 21:31 DC 01/26/21 21:30 4 MG Scopolamine 1.5 mg ONCE ONCE TD 01/26/21 21:30 01/26/21 21:31 DC 01/26/21 21:30 1.5 MG Sodium Chloride 10 ml NEEDED PRN IV 01/26/21 22:45 01/26/21 22:49 10 ML Sodium Chloride 100 ml ONCE ONCE IV 01/26/21 22:45 01/26/21 22:46 DC 01/26/21 22:49 80 ML Vital Signs/I&O 01/26/21 21:14 Temp 37.6 Pulse 99 Resp 19 B/P (MAP) 172/89 (116) O2 Delivery Room Air 01/27/21 00:00 Intake Total 1200 ml Balance 1200 ml Blood Pressure Mean: 116 Progress Progress Note : Progress Note GIVEN IV FLUIDS, SCOPOLAMINE PATCH AND ZOFRAN WITH RESOLUTION OF SYMPTOMS PT WALKED TO BATHROOM AND AFTER GETTING BACK ON ER CART, PT HAD BRIEF EPISODE OF VENTRICULAR ARRHYTHMIA WITH SOME BRIEF DIZZINESS. NO FURTHER EPISODES FOR REMAINDER OF ER STAY VITALS STABLE OTHERWISE Initial ECG Impression Date: Jan 26, 2021 Initial ECG Impression Time: 21:29 Initial ECG Rate: 92 Initial ECG Rhythm: Normal Sinus Diagnostic Imaging Comments CT ABDOMEN/PELVIS--NO ACUTE PROCESS, PER [facility] VIA FAX AT 0165 Reviewed: Reviewed by Wy Departure Communication (Admissions) 5--SPOKE WITH DR. ZAMORA, ACCEPTS PT FOR ADMIT. ORDERS NOTED. WILL CONSULT CARDIOLOGY 2333--SPOKE WITH DR. HEAD, FIELD RADIO OPERATOR, AND INFORMED HIM OF CONSULT. NO ADDITIONAL RECOMMENDATIONS AT THIS TIME. Impression Primary Impression: ABDOMINAL PAIN WITH NAUSEA AND VOMITING Additional Impressions: BRIEF EPISODE OF VENTRICULAR ARRHYTHMIA Morbid obesity Myasthenia gravis Rheumatoid arthritis HTN (hypertension) Asthma Diabetes mellitus Hx of pulmonary embolus Disposition: ADMITTED INPATIENT Condition: Improved Admissions Decision to Admit Reason: Admit from ER (General) Decision to Admit/Date: Jan 26, 2021 Time/Decision to Admit Time: 23:30 Departure-Patient Inst. Referrals: FABIENNE ZAMORA DO (PCP/Family) Primary Care Physician VIRGINIA NAJERA DO Jan 26, 2021 21:44
[2021-01-26 21:49] LABS: ALBUMIN 3.8 GM/DL (3.2-4.5); CHLORIDE 103 MMOL/L (98-107); POTASSIUM 4.3 MMOL/L (3.6-5.0); SODIUM 141 MMOL/L (135-145)
[2021-01-26 21:50] LABS: CALCIUM 9.3 MG/DL (8.5-10.1)
[2021-01-26 21:51] LABS: AMYLASE 52 U/L (25-125)
[2021-01-26 21:52] LABS: ANISOCYTOSIS SLIGHT; BAND NEUTROPHILS 9 %; BASOPHILS % (MANUAL) 0 %; EOSINOPHILS % (MANUAL) 0 %; GLUCOSE 178 MG/DL (70-105); HYPOCHROMASIA SLIGHT; LYMPHOCYTES % (MANUAL) 3 %; MONOCYTES % (MANUAL) 6 %; NEUTROPHILS % (MANUAL) 78 %; REACTIVE LYMPHOCYTES 4 %; TOTAL PROTEIN 7.3 GM/DL (6.4-8.2)
[2021-01-26 21:53] LABS: CARBON DIOXIDE 25 MMOL/L (21-32)
[2021-01-26 21:54] LABS: BILIRUBIN,TOTAL 0.5 MG/DL (0.1-1.0)
[2021-01-26 21:55] LABS: ALKALINE PHOSPHATASE 86 U/L (40-136); GFR ESTIMATED > 60
[2021-01-26 21:56] LABS: BUN/CREATININE RATIO 31
[2021-01-26 21:58] LABS: MAGNESIUM 1.9 MG/DL (1.6-2.4)
[2021-01-26 22:00] LABS: LIPASE 29 U/L (8-78)
[2021-01-26 22:29] LABS: ALANINE AMINOTRANSFERASE 25 U/L (0-55)
[2021-01-26] MEDS ORDERED: HOLD METFORMIN - RECEIVED CONTRAST 20 ML VIAL IV SCH (22:45)
[2021-01-26] MEDS ORDERED: IOHEXOL 350 MG/ML 100 ML (OMNIPAQUE 350) VIAL IV ONE (22:45)
[2021-01-26] MEDS ORDERED: CATHETER FLUSH 10 ML SYR IV PRN (22:45)
[2021-01-26] MEDS ORDERED: NS 100 ML (IVPB) BAG IV ONE (22:45)
[2021-01-27] MEDS ORDERED: ONDANSETRON 4 MG/2 ML (SDV) Z0FRAN IVP PRN (01:00)
[2021-01-27] MEDS ORDERED: ALPRAZolam 0.5 MG (XANAX) TAB PO PRN ×2 (01:00→09:45)
[2021-01-27 01:07] VITALS: BP 179/79
[2021-01-27] MEDS: D5 1/2 NS W/KCL 20 MEQ/L 1,000 ML IV SCH ×2 (01:12→07:46)
[2021-01-27 02:03] LABS: BILIRUBIN,URINE NEGATIVE (NEGATIVE); CLARITY,URINE SL CLOUDY; COLOR,URINE YELLOW; GLUCOSE, URINE (UA) 1+ (NEGATIVE); KETONES,URINE NEGATIVE (NEGATIVE); LEUKOCYTE ESTERASE ,URINE NEGATIVE (NEGATIVE); NITRITE,URINE NEGATIVE (NEGATIVE); PH,URINE 6.5 (5-9); PROTEIN,URINE NEGATIVE (NEGATIVE)
[2021-01-27 02:31] LABS: AMORPHOUS SEDIMENT,UR RARE AMOR URATES /LPF; BACTERIA,URINE TRACE /HPF
[2021-01-27 03:58] VITALS: BP 179/79
[2021-01-27] MEDS ORDERED: RT-ALBUTEROL SULF 2.5 MG/3 ML PRE-MIX VIAL INH PRN ×2 (04:15→09:45)
[2021-01-27 04:39] VITALS: BP 128/63
[2021-01-27 04:50] LABS: BASOPHILS % (AUTO) 0 % (0-10); EOSINOPHILS % (AUTO) 1 % (0-10); HEMATOCRIT 38 % (35-52); LYMPHOCYTES # (AUTO) 0.6 10^3/uL (1.0-4.0); LYMPHOCYTES % (AUTO) 11 % (12-44); MEAN CORPUSCULAR HEMOGLOBIN 29 pg (25-34); MEAN CORPUSCULAR HGB CONC 31 g/dL (32-36); MEAN CORPUSCULAR VOLUME 93 fL (80-99); MEAN PLATELET VOLUME 9.5 fL (9.0-12.2); MONOCYTES # (AUTO) 0.5 10^3/uL (0.0-1.0); MONOCYTES % (AUTO) 8 % (0-12); NEUTROPHILS # (AUTO) 4.2 10^3/uL (1.8-7.8); NEUTROPHILS % (AUTO) 78 % (42-75); PLATELET COUNT 281 10^3/uL (130-400); WHITE BLOOD COUNT 5.4 10^3/uL (4.3-11.0)
[2021-01-27 05:18] LABS: ALANINE AMINOTRANSFERASE 21 U/L (0-55); ALBUMIN 3.4 GM/DL (3.2-4.5); ALKALINE PHOSPHATASE 79 U/L (40-136); BILIRUBIN,TOTAL 0.4 MG/DL (0.1-1.0); BUN/CREATININE RATIO 19; CALCIUM 8.6 MG/DL (8.5-10.1); CARBON DIOXIDE 27 MMOL/L (21-32); CHLORIDE 101 MMOL/L (98-107); CREATININE SERUM 0.84 MG/DL (0.60-1.30); GFR ESTIMATED > 60; GLUCOSE 155 MG/DL (70-105); POTASSIUM 3.9 MMOL/L (3.6-5.0); SODIUM 138 MMOL/L (135-145); TOTAL PROTEIN 6.3 GM/DL (6.4-8.2)
--- NOTE | 2021-01-27 07:28 | Diagnostic Imaging Report ---
PROCEDURE: CT abdomen and pelvis with contrast. TECHNIQUE: Multiple contiguous axial images were obtained through the abdomen and pelvis after administration of intravenous contrast. Auto Exposure Controls were utilized during the CT exam to meet ALARA standards for radiation dose reduction. All CT scans use one or more of the following dose optimizing techniques: automated exposure control, MA and/or KvP adjustment based on patient size and exam type or iterative reconstruction. INDICATION: Abdominal pain with nausea and vomiting, starting earlier in the day. CORRELATION STUDY: 09/23/2015 FINDINGS: LOWER THORAX: Clear. LIVER: Mild fatty infiltration. GALLBLADDER: Present and unremarkable. No bile duct dilatation. SPLEEN: Unremarkable. PANCREAS: Unremarkable. ADRENAL GLANDS: Unremarkable. KIDNEYS: Normal configuration. No calcification or obstruction. ABDOMINAL AORTA: Unremarkable, nonaneurysmal. GASTROINTESTINAL TRACT: Colonic diverticuli are present without diverticulitis. No underlying bowel obstruction. The appendix not identified. No abdominal ascites and/or free air. URINARY BLADDER: Unremarkable. REPRODUCTIVE: Unremarkable. OSSEOUS STRUCTURES: No acute abnormality. OTHER: None. IMPRESSION: 1. Negative for acute abnormality of the abdomen or pelvis. 2. Colonic diverticuli without evidence for acute diverticulitis. Initial report was provided by [employer]. Dictated by: Dictated on workstation # [id number]
[2021-01-27 08:00] VITALS: BP 195/76
[2021-01-27] MEDS ORDERED: RT-ALBUTEROL SULF 2.5 MG/3 ML PRE-MIX VIAL INH SCH (08:00)
[2021-01-27] MEDS ORDERED: FUROSEMIDE 40 MG (LASIX) TAB PO SCH (09:45)
--- NOTE | 2021-01-27 09:45 | Short Stay Summary ---
BRAD PALMA MED STUDENT 01/27/21 0945: History of Present Illness History of Present Illness Reason for visit/HPI 60 yr old F presents to ER with CC of intractable nausea and vomiting. Pt describes symptom onset on Friday 01/26 where she had GI upset which progressed to nausea and vomiting. Numerous episodes of vomiting. Contacted Dr. Yan office where she was prescribed zofran PO. Pt was unable to fully take medicine as she would immediately vomit after swallowing it. Pt reported to ED following an attempt at going to work where she ultimately vomited again. Pt received IV zofran and scopolamine patch which helped with the N/V. A brief episode of ventricular arrhythmia was noted in the ED, cardiology was consulted. Date of Admission Jan 27, 2021 at 00:10 Date of Discharge Jan 27, 2021 Time Seen by Provider: 07:45 Attending Physician Shayla Zamora DO Admitting Physician Shayla Zamora DO Consult Allergies and Home Medications Allergies Coded Allergies: adhesive tape (Verified Allergy, Intermediate, 02/21/20) BLISTERS AND RAW SKIN almond (Unverified Allergy, Intermediate, Abdominal Pain, 12/29/20) Pt states having pain when she eat them. amlodipine (Verified Allergy, Unknown, 02/22/13) erythromycin base (Verified Allergy, Unknown, 02/22/13) Uncoded Allergies: ALMONDS (Adverse Reaction, Mild, 02/22/20) SHE HAS PAIN ALL OVER WHEN SHE EATS THEM Home Medications Albuterol Sulfate 1 Puff Puff, 2 PUFF INH Q4H PRN for SHORTNESS OF BREATH, (Reported) Alprazolam 0.5 Mg Tablet, 0.5 MG PO Q4H PRN for ANXIETY, (Reported) Apixaban 5 Mg Tablet, 5 MG PO BID, (Reported) Atorvastatin Calcium 20 Mg Tablet, 20 MG PO DAILY, (Reported) Calcium Carbonate/Vitamin D3 1 Each Tablet, 1 EACH PO BID, (Reported) Cetirizine HCl 10 Mg Tablet, 10 MG PO DAILY, (Reported) Citalopram Hydrobromide 20 Mg Tablet, 20 MG PO DAILY, (Reported) Clonidine HCl 0.1 Mg Tablet, 0.1 MG PO BID, (Reported) Fluticasone/Vilanterol 1 Each Blst.w.dev, 1 PUFF INH DAILY, (Reported) Furosemide 40 Mg Tablet, 40 MG PO PRN PRN for FLUID RETENTION, (Reported) Levothyroxine Sodium 50 Mcg Tablet, 50 MCG PO DAILY, (Reported) Losartan Potassium 50 Mg Tablet, 50 MG PO DAILY, (Reported) Melatonin 5 Mg Tablet, 5 MG PO HS PRN for SLEEP, (Reported) Montelukast Sodium 10 Mg Tablet, 10 MG PO DAILY, (Reported) Pantoprazole Sodium 40 Mg Tablet.dr, 40 MG PO DAILY, (Reported) Potassium Chloride 20 Meq Tablet.er, 20 MEQ PO BID, (Reported) Prednisone 5 Mg Tablet, 7.5 MG PO DAILY, (Reported) TAKES 1 & (5MG) TABS Promethazine HCl 25 Mg Tablet, 25 MG PO Q6H PRN for NAUSEA/VOMITING-1ST LINE, (Reported) Tiotropium [place] 4 Gm Mist.inhal, 2 PUFF INH DAILY, (Reported) Triamterene/Hydrochlorothiazid 1 Each Capsule, 1 CAP PO DAILY, (Reported) Past Etjuqnb-Bjorct-Jyeayw Hx Patient Social History Marrital Status: Employed/Student: employed Smoking Status: Never a Smoker 2nd Hand Smoke Exposure: No Recent Hopitalizations: Yes ( FOR INPATIENT REHAB) Have you traveled recently?: No Pt feels they are or have been: No Immunizations Up To Date Tetanus Booster (TDap): Less than 5yrs Pediatric: Yes Date of Pneumonia Vaccine: Jan 04, 2018 Date of Influenza Vaccine: Sep 12, 2020 Seasonal Allergies Seasonal Allergies: Yes Surgeries Yes (FOOT SURGERY,LEFT LUMPECTOMY, R KNEE MINISCUS REPAIR) Breast, Orthopedic Respiratory Yes (CHRONIC COUGH; P.E. WITH COVID-19 INFECTION 09/2020. 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 Genitourinary Yes Bladder Infection Gastrointestinal No Musculoskeletal Yes Rheumatoid Arthritis, Chronic Back Pain Endocrine History of Endocrine Disorders: Yes (OBESITY; MYASTHENIA GRAVIS) Endocrine Disorders: Hypothyroidsim, Diabetes, Non-Insulin dep HEENT History of HEENT Disorders: Yes HEENT Disorders: Double Vision Loss of Vision: Denies Hearing Impairment: Denies Cancer No Psychosocial History of Psychiatric Problem: Yes Behavioral Health Disorders: Anxiety, Depression Integumentary History of Skin or Integumenta: No Blood Transfusions History of Blood Disorders: No Adverse Reaction to a Blood Tr: No Family Medical History Significant Family History: Heart Disease, Diabetes, Hypertension Family Hx: Alcoholism G8 BROTHER G8 SISTER Alzheimer's disease 19 MOTHER Arthritis 19 FATHER Asthma G8 SISTER Cardiovascular disease 19 FATHER Cataracts 19 FATHER Coronary thrombosis 19 FATHER Deafness or hearing loss SON Diabetes mellitus 19 FATHER G8 SISTER G8 SISTER Drug abuse G8 SISTER Hypertension 19 FATHER G8 SISTER G8 SISTER Kidney disease 19 FATHER Respiratory disorder G8 SISTER G8 SISTER Seizure disorder SON Severe allergy SON Review of Systems Constitutional: No chills; dizziness, weakness EENTM: nose congestion, other (sinus pressure) Respiratory: cough, dyspnea on exertion, short of breath, wheezing Cardiovascular: No chest pain, No palpitations Gastrointestinal: No abdominal pain; nausea; No vomiting Genitourinary: No dysuria, No pain Musculoskeletal: joint pain; No muscle pain Skin: No pruritus, No rash Psychiatric/Neurological: Headache, Weakness All Other Systems Reviewed Negative Unless Noted: Yes Physical Exam Vital Signs Vital Signs - First Documented 01/26/21 01/27/21 01/27/21 01/27/21 21:14 00:27 00:45 03:58 Temp 37.6 Pulse 99 Resp 19 B/P (MAP) 172/89 (116) Pulse Ox 91 O2 Delivery Room Air O2 Flow Rate 2.00 FiO2 24 Capillary Refill : Less Than 3 Seconds Height, Weight, BMI Height: 5'6.00" Weight: 297lbs. 0.0oz. 134.230684gm; 57.95 BMI Method:Stated General Appearance: No Apparent Distress, Obese Eyes: Bilateral Eye Normal Inspection HEENT: PERRL/EOMI, Moist Mucous Membranes, Other (sinus pressure) Neck: Full Range of Motion, Normal Inspection, Non Tender, Supple Respiratory: Chest Non Tender, Lungs Clear, No Accessory Muscle Use, No Respiratory Distress, Wheezing Cardiovascular: Regular Rate, Rhythm, No Gallop, No Murmur Gastrointestinal: Normal Bowel Sounds, Non Tender, Soft Rectal: Deferred Back: No Vertebral Tenderness Extremity: Normal Inspection, Non Tender, No Calf Tenderness Neurologic/Psychiatric: Alert, Oriented x3, No Motor/Sensory Deficits, Normal Mood/Affect Skin: Normal Color, Warm/Dry Lymphatic: No Adenopathy (cervical, supraclavicular) Short Stay Diagnosis Conclusion Labs Laboratory Tests 01/26/21 21:25: White Blood Count 6.3, Red Blood Count 4.59, Hemoglobin 13.3, Hematocrit 43, Mean Corpuscular Volume 93, Mean Corpuscular Hemoglobin 29, Mean Corpuscular Hemoglobin Concent 31L, Red Cell Distribution Width 14.0, Platelet Count 316, Mean Platelet Volume 9.5, Immature Granulocyte % (Auto) 1, Neutrophils (%) (Auto) 87H, Lymphocytes (%) (Auto) 5L, Monocytes (%) (Auto) 6, Eosinophils (%) (Auto) 1, Basophils (%) (Auto) 0, Neutrophils # (Auto) 5.4, Lymphocytes # (Auto) 0.3L, Monocytes # (Auto) 0.4, Eosinophils # (Auto) 0.1, Basophils # (Auto) 0.0, Immature Granulocyte # (Auto) 0.1, Neutrophils % (Manual) 78, Lymphocytes % (Manual) 3, Monocytes % (Manual) 6, Eosinophils % (Manual) 0, Basophils % (Manual) 0, Band Neutrophils 9, Reactive Lymphocytes 4, Hypochromasia SLIGHT, Anisocytosis SLIGHT, Sodium Level 141, Potassium Level 4.3, Chloride Level 103, Carbon Dioxide Level 25, Anion Gap 13, Blood Urea Nitrogen 22H, Creatinine 0.70, Estimat Glomerular Filtration Rate > 60, BUN/Creatinine Ratio 31, Glucose Level 178H, Calcium Level 9.3, Corrected Calcium 9.5, Magnesium Level 1.9, Total Bilirubin 0.5, Aspartate Amino Transf (AST/SGOT) 24, Alanine Aminotransferase (ALT/SGPT) 25, Alkaline Phosphatase 86, Total Protein 7.3, Albumin 3.8, Amylase Level 52, Lipase 29 01/27/21 04:43: White Blood Count 5.4, Red Blood Count 4.10, Hemoglobin 12.0, Hematocrit 38, Mean Corpuscular Volume 93, Mean Corpuscular Hemoglobin 29, Mean Corpuscular Hemoglobin Concent 31L, Red Cell Distribution Width 14.3, Platelet Count 281, Mean Platelet Volume 9.5, Immature Granulocyte % (Auto) 1, Neutrophils (%) (Auto) 78H, Lymphocytes (%) (Auto) 11L, Monocytes (%) (Auto) 8, Eosinophils (%) (Auto) 1, Basophils (%) (Auto) 0, Neutrophils # (Auto) 4.2, Lymphocytes # (Auto) 0.6L, Monocytes # (Auto) 0.5, Eosinophils # (Auto) 0.0, Basophils # (Auto) 0.0, Immature Granulocyte # (Auto) 0.1, Sodium Level 138, Potassium Level 3.9, Chloride Level 101, Carbon Dioxide Level 27, Anion Gap 10, Blood Urea Nitrogen 16, Creatinine 0.84, Estimat Glomerular Filtration Rate > 60, BUN/Creatinine Ratio 19, Glucose Level 155H, Calcium Level 8.6, Corrected Calcium 9.1, Total Bilirubin 0.4, Aspartate Amino Transf (AST/SGOT) 16, Alanine Aminotransferase (ALT/SGPT) 21, Alkaline Phosphatase 79, Total Protein 6.3L, Albumin 3.4, Troponin I < 0.028 Conclusion/Plan PLAN: Discharge home Continue PO zofran for nausea Maintain bland diet for stomach pain, advance diet as tolerated Maintain adequate hydration F/U with Dr. Zamora in 1 week, contact earlier if symptoms worsen or do not improve Encourage IS use SHAYLA ZAMORA DO 01/28/21 0523: History of Present Illness History of Present Illness Reason for visit/HPI CC: N/V HPI: [id number] clinic patient of mine w/h/o RA, MG, RALPH on CPAP, O2 dependence since COVID PNA and morbid obesity with DM and HTN and asthma who presents to the ER with refractory N/V failed anti-emetics rx as outpatient. Currently she is doing much better since IVF and feels good enough to go home. No meds will be changed at [place]. Date of Admission 01/26/21 Date of Discharge 01/27/21 Time Seen by Provider: 09:00 Allergies and Home Medications Allergies Coded Allergies: adhesive tape (Verified Allergy, Intermediate, 02/21/20) BLISTERS AND RAW SKIN almond (Unverified Allergy, Intermediate, Abdominal Pain, 12/29/20) Pt states having pain when she eat them. amlodipine (Verified Allergy, Unknown, 02/22/13) erythromycin base (Verified Allergy, Unknown, 02/22/13) Uncoded Allergies: ALMONDS (Adverse Reaction, Mild, 02/22/20) SHE HAS PAIN ALL OVER WHEN SHE EATS THEM Home Medications Albuterol Sulfate 1 Puff Puff, 2 PUFF INH Q4H PRN for SHORTNESS OF BREATH, (Reported) Alprazolam 0.5 Mg Tablet, 0.5 MG PO Q4H PRN for ANXIETY, (Reported) Apixaban 5 Mg Tablet, 5 MG PO BID, (Reported) Atorvastatin Calcium 20 Mg Tablet, 20 MG PO DAILY, (Reported) Calcium Carbonate/Vitamin D3 1 Each Tablet, 1 EACH PO BID, (Reported) Cetirizine HCl 10 Mg Tablet, 10 MG PO DAILY, (Reported) Citalopram Hydrobromide 20 Mg Tablet, 20 MG PO DAILY, (Reported) Clonidine HCl 0.1 Mg Tablet, 0.1 MG PO BID, (Reported) Fluticasone/Vilanterol 1 Each Blst.w.dev, 1 PUFF INH DAILY, (Reported) Furosemide 40 Mg Tablet, 40 MG PO PRN PRN for FLUID RETENTION, (Reported) Levothyroxine Sodium 50 Mcg Tablet, 50 MCG PO DAILY, (Reported) Losartan Potassium 50 Mg Tablet, 50 MG PO DAILY, (Reported) Melatonin 5 Mg Tablet, 5 MG PO HS PRN for SLEEP, (Reported) Montelukast Sodium 10 Mg Tablet, 10 MG PO DAILY, (Reported) Pantoprazole Sodium 40 Mg Tablet.dr, 40 MG PO DAILY, (Reported) Potassium Chloride 20 Meq Tablet.er, 20 MEQ PO BID, (Reported) Prednisone 5 Mg Tablet, 7.5 MG PO DAILY, (Reported) TAKES 1 & (5MG) TABS Promethazine HCl 25 Mg Tablet, 25 MG PO Q6H PRN for NAUSEA/VOMITING-1ST LINE, (Reported) Tiotropium [place] 4 Gm Mist.inhal, 2 PUFF INH DAILY, (Reported) Triamterene/Hydrochlorothiazid 1 Each Capsule, 1 CAP PO DAILY, (Reported) Patient Home Medication List Home Medication List Reviewed: Yes Past Hkcneku-Ckxqft-Jafnss Hx Patient Social History Marrital Status: Employed/Student: employed Smoking Status: Never a Smoker Surgeries Abdominal, Orthopedic Respiratory Asthma, Pulmonary Embolism, Sleep Apnea Currently Using CPAP: Yes Currently Using BIPAP: No Cardiovascular Chronic Edema/Swelling, Deep Vein Thrombosis, High Cholesterol, Hypertension Neurological Yes (MG) Neuropathy Musculoskeletal Arthritis, Rheumatoid Arthritis, Chronic Back Pain Endocrine Endocrine Disorders: Hypothyroidsim, Diabetes, Non-Insulin dep Family Medical History Family Hx: Alcoholism G8 BROTHER G8 SISTER Alzheimer's disease 19 MOTHER Arthritis 19 FATHER Asthma G8 SISTER Cardiovascular disease 19 FATHER Cataracts 19 FATHER Coronary thrombosis 19 FATHER Deafness or hearing loss SON Diabetes mellitus 19 FATHER G8 SISTER G8 SISTER Drug abuse G8 SISTER Hypertension 19 FATHER G8 SISTER G8 SISTER Kidney disease 19 FATHER Respiratory disorder G8 SISTER G8 SISTER Seizure disorder SON Severe allergy SON Review of Systems Constitutional: see HPI, malaise, weakness Gastrointestinal: nausea, vomiting Physical Exam General Appearance: No Apparent Distress, WD/WN, Chronically ill, Obese Eyes: Bilateral Eye Normal Inspection, Bilateral Eye PERRL, Bilateral Eye EOMI HEENT: PERRL/EOMI, Normal ENT Inspection, Pharynx Normal Neck: Full Range of Motion, Normal Inspection, Non Tender, Supple, Carotid Bruit Respiratory: Chest Non Tender, Lungs Clear, Normal Breath Sounds, No Accessory Muscle Use, No Respiratory Distress Cardiovascular: Regular Rate, Rhythm, No Edema, No Gallop, No JVD, No Murmur, Normal Peripheral Pulses Gastrointestinal: Normal Bowel Sounds, No Organomegaly, No Pulsatile Mass, Non Tender, Soft Back: Normal Inspection, No CVA Tenderness, No Vertebral Tenderness Extremity: Normal Capillary Refill, Normal Inspection, Normal Range of Motion, Non Tender, No Calf Tenderness, No Pedal Edema Neurologic/Psychiatric: Alert, Oriented x3, No Motor/Sensory Deficits, Normal Mood/Affect Skin: Normal Color, Warm/Dry Lymphatic: No Adenopathy Short Stay Diagnosis Discharge Diagnosis-Short Stay Admission Diagnosis: Refractory N/V requiring overnight stay with IVF and anti-emetics RA MG RALPH s/p COVID PNA Report of arrythymia Final Discharge Diagnosis: Refractory N/V requiring overnight stay with IVF and anti-emetics RA MG RALPH s/p COVID PNA Report of arrythymia Conclusion Conclusion/Plan DC home Dr Somers consultation appreciated Supervisory-Addendum Brief Verification & Attestation Participated in pt care: history, MDM, physical Personally performed: exam, history, MDM, supervision of care Care discussed with: Medical Student Procedures: n/a Results interpretation: Verified all documentation Verification and Attestation of Medical Student E/M Service A medical student performed and documented this service in my presence. I reviewed and verified all information documented by the medical student and made modifications to such information, when appropriate. I personally performed the physical exam and medical decision making. Shayla Zamora, Jan 28, 2021,05:23 BRAD PALMA MED STUDENT Jan 27, 2021 09:45 SHAYLA ZAMORA DO Jan 28, 2021 05:23
[2021-01-27] MEDS ORDERED: PRED5TAB PO (09:47)
[2021-01-27] MEDS ORDERED: ALPR0.5T PO (09:47)
[2021-01-27] MEDS ORDERED: APIX5TAB PO (09:47)
[2021-01-27] MEDS ORDERED: PROM25TA14 PO (09:47)
[2021-01-27] MEDS ORDERED: POTA-51 PO (09:47)
[2021-01-27] MEDS ORDERED: MELATONIN 10 MG TABLET PO PRN (10:30)
[2021-01-27 12:00] VITALS: BP 136/69
--- NOTE | 2021-01-27 12:22 | Consultation-Cardiology ---
HPI-Cardiology Cardiology Consultation Date of Consultation 01/27/21 Date of Admission Time Seen by Provider: 08:00 Indication: hypertension HPI 60 years old lady with history of morbid obesity, admitted with intractable nausea and vomiting, noted to have elevated blood pressure, there was questionable irregular heartbeat in the emergency room which was not recorded. Monitoring her telemetry did not show any significant arrhythmia. Patient denied any chest pain. No palpitation, exercise ability somewhat limited. Home Medications & Allergies Allergies: Coded Allergies: adhesive tape (Verified Allergy, Intermediate, 02/21/20) BLISTERS AND RAW SKIN almond (Unverified Allergy, Intermediate, Abdominal Pain, 12/29/20) Pt states having pain when she eat them. amlodipine (Verified Allergy, Unknown, 02/22/13) erythromycin base (Verified Allergy, Unknown, 02/22/13) Uncoded Allergies: ALMONDS (Adverse Reaction, Mild, 02/22/20) SHE HAS PAIN ALL OVER WHEN SHE EATS THEM Home Medication List Reviewed: Yes FXA-[id number]-Jcrofq Hx Patient Social History Marital Status: Employed/Student: employed Recreational Drug Use: No Smoking Status: Never a Smoker 2nd Hand Smoke Exposure: No Recent Hopitalizations: Yes ( FOR INPATIENT REHAB) Have you traveled recently?: No Immunizations Up To Date Tetanus Booster (TDap): Less than 5yrs Date of Pneumonia Vaccine: Jan 04, 2018 Date of Influenza Vaccine: Sep 12, 2020 Past Medical History discussed below Family Medical History Significant Family History: Heart Disease, Diabetes, Hypertension Family History: 19 FATHER Arthritis Cardiovascular disease Cataracts Coronary thrombosis Diabetes mellitus Hypertension Kidney disease 19 MOTHER Alzheimer's disease G8 BROTHER Alcoholism G8 SISTER Alcoholism Asthma Diabetes mellitus Hypertension Respiratory disorder G8 SISTER Diabetes mellitus Drug abuse Hypertension Respiratory disorder SON Deafness or hearing loss Seizure disorder Severe allergy Review of Systems-General Review of Systems Constitutional: see HPI; No chills; dizziness, weakness EENTM: see HPI, nose congestion, other (sinus pressure) Respiratory: see HPI, cough, dyspnea on exertion, short of breath, wheezing Cardiovascular: see HPI; No chest pain, No palpitations Gastrointestinal: see HPI; No abdominal pain; nausea, vomiting Genitourinary: see HPI; No dysuria, No pain Musculoskeletal: joint pain; No muscle pain Skin: see HPI; No pruritus, No rash Psychiatric/Neurological: Headache, Weakness All Other Systems Reviewed Negative Unless Noted: Yes Reviewed Test Results Reviewed Test Results Lab Laboratory Tests Test 01/26/21 21:25 01/27/21 04:43 Range/Units White Blood Count 6.3 5.4 4.3-11.0 10^3/uL Red Blood Count 4.59 4.10 3.80-5.11 10^6/uL Hemoglobin 13.3 12.0 11.5-16.0 g/dL Hematocrit 43 38 35-52 % Mean Corpuscular Volume 93 93 80-99 fL Mean Corpuscular Hemoglobin 29 29 25-34 pg Mean Corpuscular Hemoglobin Concent 31 L 31 L 32-36 g/dL Red Cell Distribution Width 14.0 14.3 10.0-14.5 % Platelet Count 316 281 130-400 10^3/uL Mean Platelet Volume 9.5 9.5 9.0-12.2 fL Immature Granulocyte % (Auto) 1 1 % Neutrophils (%) (Auto) 87 H 78 H 42-75 % Lymphocytes (%) (Auto) 5 L 11 L 12-44 % Monocytes (%) (Auto) 6 8 0-12 % Eosinophils (%) (Auto) 1 1 0-10 % Basophils (%) (Auto) 0 0 0-10 % Neutrophils # (Auto) 5.4 4.2 1.8-7.8 10^3/uL Lymphocytes # (Auto) 0.3 L 0.6 L 1.0-4.0 10^3/uL Monocytes # (Auto) 0.4 0.5 0.0-1.0 10^3/uL Eosinophils # (Auto) 0.1 0.0 0.0-0.3 10^3/uL Basophils # (Auto) 0.0 0.0 0.0-0.1 10^3/uL Immature Granulocyte # (Auto) 0.1 0.1 0.0-0.1 10^3/uL Neutrophils % (Manual) 78 % Lymphocytes % (Manual) 3 % Monocytes % (Manual) 6 % Eosinophils % (Manual) 0 % Basophils % (Manual) 0 % Band Neutrophils 9 % Reactive Lymphocytes 4 % Hypochromasia SLIGHT Anisocytosis SLIGHT Sodium Level 141 138 135-145 MMOL/L Potassium Level 4.3 3.9 3.6-5.0 MMOL/L Chloride Level 103 101 98-107 MMOL/L Carbon Dioxide Level 25 27 21-32 MMOL/L Anion Gap 13 10 5-14 MMOL/L Blood Urea Nitrogen 22 H 16 7-18 MG/DL Creatinine 0.70 0.84 0.60-1.30 MG/DL Estimat Glomerular Filtration Rate > 60 > 60 BUN/Creatinine Ratio 31 19 Glucose Level 178 H 155 H 70-105 MG/DL Calcium Level 9.3 8.6 8.5-10.1 MG/DL Corrected Calcium 9.5 9.1 8.5-10.1 MG/DL Magnesium Level 1.9 1.6-2.4 MG/DL Total Bilirubin 0.5 0.4 0.1-1.0 MG/DL Aspartate Amino Transf (AST/SGOT) 24 16 5-34 U/L Alanine Aminotransferase (ALT/SGPT) 25 21 0-55 U/L Alkaline Phosphatase 86 79 40-136 U/L Total Protein 7.3 6.3 L 6.4-8.2 GM/DL Albumin 3.8 3.4 3.2-4.5 GM/DL Amylase Level 52 25-125 U/L Lipase 29 8-78 U/L Troponin I < 0.028 <0.028 NG/ML Physical Exam Physical Exam Vital Signs Vital Signs - First Documented 01/26/21 01/27/21 01/27/21 01/27/21 21:14 00:27 00:45 03:58 Temp 37.6 Pulse 99 Resp 19 B/P (MAP) 172/89 (116) Pulse Ox 91 O2 Delivery Room Air O2 Flow Rate 2.00 FiO2 24 Capillary Refill : Less Than 3 Seconds Height, Weight, BMI Height: 5'6.00" Weight: 297lbs. 0.0oz. 134.873793hj; 57.95 BMI Method:Stated General Appearance: No Apparent Distress, Obese Eyes: Bilateral Eye Normal Inspection HEENT: PERRL/EOMI, Moist Mucous Membranes, Other (sinus pressure) Neck: Full Range of Motion, Normal Inspection, Non Tender, Supple Respiratory: Chest Non Tender, Lungs Clear, No Accessory Muscle Use, No Respiratory Distress, Wheezing Cardiovascular: Regular Rate, Rhythm, No Gallop, No Murmur Gastrointestinal: Normal Bowel Sounds, Non Tender, Soft Rectal: Deferred Back: No Vertebral Tenderness Extremity: Normal Inspection, Non Tender, No Calf Tenderness Neurologic/Psychiatric: Alert, Oriented x3, No Motor/Sensory Deficits, Normal Mood/Affect Skin: Normal Color, Warm/Dry Lymphatic: No Adenopathy (cervical, supraclavicular) A/P-Cardiology Admission Diagnosis Gastroenteritis Hypertension Hyperlipidemia Myasthenia gravis Assessment/Plan Gastroenteritis, nausea and vomiting, reporting some improvement, managed by [facility] physician Severe hypertension, patient is on multiple blood pressure medication, she has been having nausea and vomiting, restart home medication and monitor blood pressure Questionable history of ventricular arrhythmia, no documentation of any arrhythmia noted on telemetry. Recommend monitoring as an outpatient History of DVT and PE post COVID, maintained on oral anticoagulation, followed by Dr. Jimenez Hyperlipidemia, monitor lipids History of COPD, has C Pap, using oxygen at home. History of myasthenia gravis. BELLE HEAD MD Jan 27, 2021 12:22
[2021-01-27 14:15] VITALS: BP 136/69
--- NOTE | 2021-01-27 14:36 | Physical Therapy Progress Note ---
Therapy Progress Note Patient declined PT stating she feels she is at her independent PLOF with all mobility and is going home. Son confirms. No PT indicated. 1 ref/DC ([id number]) TRICIA TRAN PT Jan 27, 2021 14:36
[2021-01-27] MEDS ORDERED: CALCIUM CARB + VIT D 600 MG (CALCARB + D) TAB PO SCH (21:00)
[2021-01-27] MEDS ORDERED: FLUTICASONE/SALMETEROL 232-14 (AIRDUO RespiCLICK) IH SCH (21:00)
[2021-01-27] MEDS ORDERED: APIXABAN 5 MG (ELIQUIS) TABLET PO SCH (21:00)
[2021-01-27] MEDS ORDERED: cloNIDine 0.1 MG (CATAPRES) TAB PO SCH (21:00)
[2021-01-27] MEDS ORDERED: KCL 20 MEQ TAB (K-DUR) PO SCH (21:00)
[2021-01-28] MEDS ORDERED: UMECLIDINIUM BROMIDE (INCRUSE ELLIPTA) 7'S IH SCH (08:00)
[2021-01-28] MEDS ORDERED: MONTELUKAST 10 MG (SINGULAIR) TAB PO SCH (09:00)
[2021-01-28] MEDS ORDERED: PANTOPRAZOLE 40 MG (PROTONIX) TAB PO SCH (09:00)
[2021-01-28] MEDS ORDERED: LEVOTHYROXINE 50 MCG (LEVOTHROID) TAB PO SCH (09:00)
[2021-01-28] MEDS ORDERED: LORATADINE (CLARITIN) 10 MG TAB PO SCH (09:00)
[2021-01-28] MEDS ORDERED: TRIAMTERENE/HCTZ 75-50 (MAXZIDE,DYAZIDE) TABLET PO SCH (09:00)
[2021-01-28] MEDS ORDERED: LOSARTAN 50 MG (COZAAR) TAB PO SCH (09:00)
[2021-01-29] MEDS ORDERED: SCOPOLAMINE 1.5 MG (TRANSDERM-SCOP) PATCH TD SCH (21:00)
[2021-01-29] MEDS ORDERED: SCOPOLAMINE PATCH REMOVAL TP SCH (21:00)
== END 2021-01-27 14:15 | disposition home or self-care (01) ==
LOC: EDUNIT# 21:08 → ER 21:10 → 4TH 01-27 00:10 → INTOOBSV 01-27 00:10
PROVIDERS: ADMIT Internal Medicine; ATTEND Internal Medicine
DX: K52.9 Noninfective gastroenteritis and colitis, unspecified (principal); G70.00 Myasthenia gravis without (acute) exacerbation; G47.30 Sleep apnea, unspecified; E78.5 Hyperlipidemia, unspecified; I26.99 Other pulmonary embolism without acute cor pulmonale; J45.909 Unspecified asthma, uncomplicated; E11.40 Type 2 diabetes mellitus with diabetic neuropathy, unspecified; I10 Essential (primary) hypertension; E78.00 Pure hypercholesterolemia, unspecified; I82.409 Acute embolism and thrombosis of unspecified deep veins of unspecified lower extremity; M06.9 Rheumatoid arthritis, unspecified; M54.9 Dorsalgia, unspecified; G89.29 Other chronic pain; E03.9 Hypothyroidism, unspecified; F32.9 Major depressive disorder, single episode, unspecified; F41.9 Anxiety disorder, unspecified; E66.01 Morbid (severe) obesity due to excess calories; I49.9 Cardiac arrhythmia, unspecified; Z86.16 Personal history of COVID-19; Z88.1 Allergy status to other antibiotic agents; Z68.43 Body mass index [BMI] 50.0-59.9, adult; Z79.84 Long term (current) use of oral hypoglycemic drugs; Z91.048 Other nonmedicinal substance allergy status; Z79.890 Hormone replacement therapy; Z91.018 Allergy to other foods
CPT/HCPCS: 74177; 80053 ×2; 81000; 82150; 83690; 83735; 84484; 85007; 85025; 85027; 93005 ×2; 93041; 94640; 94664; 94760; 99284; G0378; 36415

== ENCOUNTER → 2021-03-04 | Outpatient (CLI) | payer BC ==
[~2021-03-04] MED LIST changes: +ALPR0.5T PO; +POTA-51 PO; +PRED5TAB PO; +PROM25TA14 PO
== END ==
LOC: CARD 13:53
PROVIDERS: ATTEND Physician Assistant
DX: I11.9 Hypertensive heart disease without heart failure (principal)
CPT/HCPCS: 93306

== ENCOUNTER → 2021-04-20 | Outpatient (CLI) | payer BC ==
[~2021-04-20] VITALS: Ht 167 cm; Wt 172.0 kg
[~2021-04-20] MED LIST changes: +REGADENOSON 0.4 MG/5 ML SYR (LEXISCAN) IV ONE
[2021-04-20] MEDS: CATHETER FLUSH 10 ML SYR IV PRN ×2 (08:13→09:27)
[2021-04-20 09:21] VITALS: BP 199/103
--- NOTE | 2021-04-20 11:30 | Cardiology Stress Test Report ---
Stress Test Report Date of Procedure/Referring: Date of Procedure: Apr 20, 2021 Dulce Staley Admitting Physician Shayla Jimenez DO Indications: CP Baseline Heart Rate: 77 Baseline Blood Pressure: Blood Pressure Systolic: 199 Blood Pressure Diastolic: 103 Baseline Vitals Vital Signs Date Time Temp Pulse Resp B/P (MAP) Pulse Ox O2 Delivery O2 Flow Rate FiO2 04/20/21 09:21 86 24 199/103 (135) 98 Room Air Baseline EKG: Baseline EKG: NSR Summary After explaining the procedure to the patient, she signed a consent and then brought to the stress nuclear laboratory. Patient received 0.4 mg Lexiscan for stress test, ECG, heart rate and blood pressure were monitored continuously. Resting and stress dose of radio tracer were injected, imaging was acquired and reviewed in short axis, horizontal long axis and vertical long axis views. TID: 0.98 SSS: 16 SDS: 8 EF: 66 1. Patient tolerated Lexiscan well 2. No significant EKG changes with Lexiscan injection 3. Breast attenuation with reversible ischemia involving the whole anterior wall, anterior apex and anterolateral wall 4. Normal left ventricular size, EF 66% Copy Copies To 1: SHAYLA JIMENEZ BASHAR J MD Apr 20, 2021 11:30
== END ==
LOC: CARD 08:30
PROVIDERS: ATTEND Physician Assistant
DX: R07.9 Chest pain, unspecified (principal); I10 Essential (primary) hypertension
CPT/HCPCS: 78452; 93017; A9502

== ENCOUNTER 2021-04-29 13:00 | Day surgery (SDC) | payer BC ==
[~2021-04-29] VITALS: Ht 168 cm; Wt 174.0 kg
[2021-04-29] VITALS (10 sets, daily range): BP systolic 156–192; BP diastolic 79–98
[2021-04-29 11:45] LABS: BILIRUBIN,URINE NEGATIVE (NEGATIVE); CLARITY,URINE CLEAR; COLOR,URINE YELLOW; GLUCOSE, URINE (UA) NEGATIVE (NEGATIVE); KETONES,URINE NEGATIVE (NEGATIVE); LEUKOCYTE ESTERASE ,URINE NEGATIVE (NEGATIVE); NITRITE,URINE NEGATIVE (NEGATIVE); PROTEIN,URINE NEGATIVE (NEGATIVE)
[2021-04-29 11:47] LABS: HEMATOCRIT 43 % (35-52); MEAN CORPUSCULAR HEMOGLOBIN 29 pg (25-34); MEAN CORPUSCULAR HGB CONC 30 g/dL (32-36); MEAN CORPUSCULAR VOLUME 95 fL (80-99); MEAN PLATELET VOLUME 9.5 fL (9.0-12.2); PLATELET COUNT 338 10^3/uL (130-400); WHITE BLOOD COUNT 7.8 10^3/uL (4.3-11.0)
[2021-04-29 11:52] LABS: BACTERIA,URINE NEGATIVE /HPF; RBC,URINE RARE /HPF; SQUAMOUS EPITHELIAL CELL,UR 0-2 /HPF; WBC,URINE RARE /HPF
[2021-04-29 11:56] LABS: INR 0.9 (0.8-1.4); POTASSIUM 3.9 MMOL/L (3.6-5.0); PROTHROMBIN TIME PATIENT 12.6 SEC (12.2-14.7)
[2021-04-29 11:57] LABS: ALBUMIN 4.1 GM/DL (3.2-4.5)
[2021-04-29 11:58] LABS: CALCIUM 9.9 MG/DL (8.5-10.1)
[2021-04-29 11:59] LABS: TOTAL PROTEIN 7.6 GM/DL (6.4-8.2)
[2021-04-29 12:01] LABS: BILIRUBIN,TOTAL 0.5 MG/DL (0.1-1.0)
[2021-04-29 12:03] LABS: CREATININE SERUM 0.99 MG/DL (0.60-1.30)
--- NOTE | 2021-04-29 12:10 | Diagnostic Imaging Report ---
INDICATION: Preop cardiac catheterization, coronary artery disease. TECHNIQUE/COMPARISON: Frontal chest obtained at 11:37 AM and compared to 12/29/2020. FINDINGS: There is cardiomegaly with mild central vascular congestion. The findings are similar to the prior study. There is no new infiltrate, pneumothorax, or pleural fluid. IMPRESSION: Cardiomegaly and central vascular congestion, similar to the prior study. No acute change. Dictated by: Dictated on workstation # [id number]
[~2021-04-29 13:00] MED LIST changes: +AZAT50TA16 PO; +CALC500T64 PO; +FLUT1BLS IH; +MELA10TA2 PO; +NS IV 1000 ML 1,000 ML IV SCH; -REGADENOSON 0.4 MG/5 ML SYR (LEXISCAN) IV ONE
[2021-04-29] MEDS ORDERED: HEParin 1000 UNIT/ML (10ML VIAL) FOR BOLUS ONE ×2 (13:06→13:44)
[2021-04-29] MEDS ORDERED: NITRO DRIP 25000 MCG/D5W 250 ML IV ONE (13:07)
[2021-04-29] MEDS ORDERED: ADENOSINE 90 MG/30 ML (ADENOSCAN) VIAL IV ONE ×2 (13:41→13:58)
[2021-04-29] MEDS ORDERED: fentaNYL INJ 100 MCG/2 ML AMP ONE (13:52)
[2021-04-29] MEDS ORDERED: MIDAZOLAM 2 MG/2 ML (VERSED) VIAL ONE (13:53)
--- NOTE | 2021-04-29 14:09 | Discharge Inst-Post CATH ---
Discharge Inst-CATH/EP Problems Reviewed?: Yes Post Cardiac Cath/EP D/C Inst Follow Up/Plan Appointment with Dr. Somers's office in 4 weeks <b>CARDIAC CATH/EP PROCEDURE DISCHARGE INSTRUCTIONS</b> ACTIVITY * Go Home directly and rest. * Limit activity of the leg (or wrist if it was used) for 7 days including aerobics, swimming, jogging, bicycling, etc. * Restrict stair-climbing for 7 days if possible, if not, climb up with your non-cath leg, then bring together on the same step. * Avoid lifting, pushing, pulling or excessive movement of the affected extremity for 7 days. * Customary sexual activity may be resumed after 2 days-use caution not to use a position that strains or causes pain to the affected extremity. * No driving for 24 hours. * NO SMOKING. * Avoid straining for bowel movements for 7 days. * Gentle walking on level ground is allowed. * Returning to work will depend on the type of procedure and the results. Your doctor will discuss this with you. CALL YOUR DOCTOR FOR ANY OF THE FOLLOWING: *If bleeding from the puncture site occurs- Apply gentle pressure to site with clean cloth and call your doctor or EMS. * If a knot or lump forms under the skin, increases in size, or causes pain. * If bruising appears to be worsening or moving further down your leg instead of disappearing. * Temperature above 101 F. CARE OF YOUR GROIN INCISION; * Bruising or purple discoloration of the skin near the puncture site is common. * You may shower only, no bathtub bathing for 5 days. Be careful to avoid slipping as your leg may feel stiff. * If a closure device was used on your femoral artery, please see the attached guide regarding care of the device and your leg. * Leave dressing on FOR 24 hours. CARE OF YOUR WRIST INCISION; * Bruising or purple discoloration of the skin near the puncture site is common. * You may shower. * DO NOT submerge wrist. * Leave dressing on FOR 24 hours. BELLE SOMERS MD Apr 29, 2021 14:09
--- NOTE | 2021-04-29 14:13 | Cardiac Cath Report ---
Cardiac Cath Report Physician (s)/Automotive Paint Technician (s) Physician BELLE HEAD MD Pre-Procedure Diagnosis Pre-Procedure Diagnosis: Coronary artery disease Post-Procedure Note Procedure Start Date: Apr 29, 2021 Name of Procedure: Left heart catheterization FFR to the LAD Findings/Procedure Note PROCEDURE NOTE: 61-year-old lady with history of hypertension, hyperlipidemia, morbid obesity, has been having chest pain, had an abnormal stress test, scheduled for cardiac catheterization possible PTCA. After explaining the procedure to the patient, all pros and cons were explained, all questions were answered. The patient signed the consent and then she was placed on the cardiac catheterization laboratory. Groin was prepped SL fashion local anesthesia was used. Sheath placed in the right radial artery, [place] catheter was advanced to the left ventricular cavity, pullback LV to aorta, intubated the left and right coronary system and angiogram was done. There was a borderline lesion in the LAD, I tried multiple guide to intubate the LAD and I was only successful with the [place] 3.5 guide advanced into the LAD then advanced Radi wire across the mid LAD, baseline was 0.85, adenosine drip was initiated for 2 minutes, at the end it continue to be 0.85. Guide was removed and wire was removed no complication noted At the end of the procedure the sheath was removed. Vascular band deployed FINDINGS: Hemodynamics LV 149/8, end-diastolic pressure of 8 Aorta 157/81 mean of 109 ANATOMY: Left Main is free of obstructive disease Left Anterior Descending is tortuous artery with 50% stenosis at the mid portion, FFR after adenosine was 0.85 Left Circumflex is tortuous with mild disease nonobstructive disease Right Coronary Artery has mild disease nonobstructive disease LV Gram was not done, pressure was measured CONCLUSION: 1. 50% stenosis in the mid LAD, FFR after adenosine was 0.85 nonobstructive disease 2. Otherwise mild coronary artery disease nonobstructive disease 3. Normal left ventricular end-diastolic pressure DISCUSSION AND RECOMMENDATION: Medical therapy is recommended no intervention is needed Anesthesia Type: Conscious Sedation Estimated blood loss (mL): 35 ml Contrast Amount: 130 ml Total Radiation Dose: 1335 mGy Post-Procedure Diagnosis Post-operative diagnosis: Chest pain Coronary artery disease Hypertension Hyperlipidemia BELLE HEAD MD Apr 29, 2021 14:13
[2021-04-29] MEDS ORDERED: NS IV 1000 ML 1,000 ML IV SCH (14:15)
--- NOTE | 2021-04-29 14:16 | Conscious Sedation/ASA ---
Conscious Sedation Pre-Proced Time 11:00 ASA Score 3 For ASA 3 and 4: Consider anesthesia and medical clearance. Also, for patients with a history of failed moderate sedation consider anesthesia. Airway Lungs Heart ASA score ASA 1: a normal healthy patient ASA 2: a patient with a mild systemic disease (mid diabetes, controlled hypertension, obesity x ASA 3: a patient with a severe systemic disease that limits activity (angina, COPD, prior Myocardial infarction) ASA 4: a patient with an incapacitating disease that is a constant threat to life (CHF, renal failure) ASA 5: a moribund patient not expected to survive 24 hrs. (ruptured aneurysm) ASA 6: a declared brain- patient whose organs are being harvested. For emergent operations, add the letter E after the classification Mallampati Classification Grade 3 Sedation Plan Analgesia, Amnesia, Plan communicated to team members, Discussed options with patient/fam, Discussed risks with patient/fam The patient is an appropriate candidate to undergo the planned procedure, sedation, and anesthesia. The patient immediately re-assessed prior to indication. BELLE HEAD MD Apr 29, 2021 14:16
[2021-04-29] MEDS ORDERED: RT-ALBUTEROL INHALER HFA (VENTOLIN HFA) 18 GM IH SCH (14:30)
== END 2021-04-29 17:00 | disposition home or self-care (01) ==
LOC: CATH 13:00 → SDC 14:27 → CATH 17:00
PROVIDERS: ATTEND Internal Medicine Cardiovascular Disease
DX: R07.9 Chest pain, unspecified (principal); I25.10 Atherosclerotic heart disease of native coronary artery without angina pectoris; I10 Essential (primary) hypertension; E78.5 Hyperlipidemia, unspecified; E66.01 Morbid (severe) obesity due to excess calories; I25.89 Other forms of chronic ischemic heart disease; J44.9 Chronic obstructive pulmonary disease, unspecified; G47.33 Obstructive sleep apnea (adult) (pediatric); G70.00 Myasthenia gravis without (acute) exacerbation; M06.9 Rheumatoid arthritis, unspecified; R73.03 Prediabetes; E78.00 Pure hypercholesterolemia, unspecified; Z79.899 Other long term (current) drug therapy; Z79.01 Long term (current) use of anticoagulants; Z79.890 Hormone replacement therapy; Z99.81 Dependence on supplemental oxygen; Z86.16 Personal history of COVID-19; Z68.44 Body mass index [BMI] 60.0-69.9, adult
CPT/HCPCS: 36415; 71045; 80053; 80061; 81000; 85027; 85610; 85730; 87081; 93458

== ENCOUNTER → 2021-05-19 | Outpatient (CLI) | payer BC ==
[~2021-05-19] MED LIST changes: -NS IV 1000 ML 1,000 ML IV SCH; +RT-ALBUTEROL SULF 2.5 MG/3 ML PRE-MIX VIAL INH ONE
== END ==
LOC: RT 09:30
PROVIDERS: ATTEND Internal Medicine
DX: J45.909 Unspecified asthma, uncomplicated (principal)
CPT/HCPCS: 94060; 94640; 94726; 94729

== ENCOUNTER 2021-06-04 18:00 | Observation (INO) | payer BC ==
[~2021-06-04] VITALS: Ht 167.6 cm; Wt 174.6 kg
[~2021-06-04 18:00] MED LIST changes: -CEFD300C3 PO; -DOXY100T2 PO; -EZET10TA49 PO; -FLUT9.9S NSEACH; -IPRA3AMP31 INH; -VENL75CA93 PO
[2021-06-04] MEDS ORDERED: DOCUSATE SODIUM 100 MG (COLACE) CAP PO PRN (18:15)
[2021-06-04] MEDS ORDERED: ACETAMINOPHEN 500 MG TAB (TYLENOL) PO PRN (18:15)
[2021-06-04] MEDS ORDERED: LOPERAMIDE 2 MG (IMODIUM) TABLET PO PRN (18:15)
[2021-06-04] MEDS ORDERED: AZITHROMYCIN INJECTION 500 MG in NS (IVPB) 250 ML IV SCH (18:15)
[2021-06-04] MEDS ORDERED: HYDROcodone/APAP 5 MG/325 MG (LORTAB) TAB PO PRN (18:15)
[2021-06-04] MEDS ORDERED: ALPRAZolam 0.25 MG (XANAX) TAB PO PRN ×2 (18:15→21:45)
[2021-06-04] MEDS ORDERED: diphenhydrAMINE 25 MG TAB (BENADRYL) PO PRN (18:15)
[2021-06-04] MEDS ORDERED: CALCIUM CARBONATE 500 MG (TUMS) TAB.CHEW PO PRN (18:15)
[2021-06-04] MEDS ORDERED: ONDANSETRON 4 MG/2 ML (SDV) Z0FRAN IVP PRN (18:15)
[2021-06-04] MEDS ORDERED: MELATONIN 3 MG TABLET PO PRN (18:15)
[2021-06-04] MEDS ORDERED: guaiFENesin (MUCINEX) 600 MG TAB PO NR (18:30)
[2021-06-04] MEDS ORDERED: RT-ALBUTEROL/IPRATROPIUM 3 ML (DUONEB) VIAL INH SCH (19:00)
[2021-06-04 19:54] LABS: HEMATOCRIT 39 % (35-52); MEAN CORPUSCULAR HEMOGLOBIN 29 pg (25-34); MEAN CORPUSCULAR HGB CONC 31 g/dL (32-36); MEAN CORPUSCULAR VOLUME 97 fL (80-99); MEAN PLATELET VOLUME 9.9 fL (9.0-12.2); PLATELET COUNT 308 10^3/uL (130-400); WHITE BLOOD COUNT 7.8 10^3/uL (4.3-11.0)
[2021-06-04] MEDS: NS IV 1000 ML 1,000 ML IV SCH (20:12)
[2021-06-04] MEDS: polyethylene glycoL POWDER 17 GM (MIRALAX) PACK PO SCH (20:12)
[2021-06-04] MEDS: methylPREDNISolone 125 MG (Solu-MEDROL) VIAL IVP SCH (20:12)
[2021-06-04] MEDS: SENNA W/DOCUSATE (SENOKOT S) TABLET PO SCH (20:13)
[2021-06-04] MEDS: guaiFENesin (MUCINEX) 600 MG TAB PO SCH (20:13)
[2021-06-04 20:18] LABS: ALBUMIN 3.7 GM/DL (3.2-4.5); BILIRUBIN,TOTAL 0.5 MG/DL (0.1-1.0); CALCIUM 9.4 MG/DL (8.5-10.1); CREATININE SERUM 1.15 MG/DL (0.60-1.30); POTASSIUM 4.5 MMOL/L (3.6-5.0); TOTAL PROTEIN 6.9 GM/DL (6.4-8.2)
[2021-06-04] MEDS: DOXYCYCLINE 100 MG (VIBRAMYCIN) TABLET PO SCH (21:13)
[2021-06-04 23:50] VITALS: BP 158/83
[2021-06-05] MEDS: methylPREDNISolone 125 MG (Solu-MEDROL) VIAL IVP SCH ×4 (00:59→17:44)
[2021-06-05 04:25] VITALS: BP 181/80
[2021-06-05] MEDS: NS IV 1000 ML 1,000 ML IV SCH (06:07)
[2021-06-05] MEDS: LEVOTHYROXINE 50 MCG (LEVOTHROID) TAB PO SCH (06:10)
[2021-06-05] MEDS: PANTOPRAZOLE 40 MG (PROTONIX) TAB PO SCH (06:10)
[2021-06-05] MEDS: VENlafaxine XR 75 MG (EFFEXOR XR) CAP PO SCH (06:11)
--- NOTE | 2021-06-05 06:15 | History & Physical ---
History of Present Illness HPI/Chief Complaint CC: SOB HPI: This is a 61yoWF very complicated with Myasthenia Gravis and rheumatoid arthritis, post-covid in September who presented to my office with SOB and cough. She was found to be Covid negative, bronchitis diagnosed, broad-spectrum antibiotics initiated, echocardiogram obtained due to cardiac enlargement on ch est X-ray. Labs returned back to normal with elevated lactic acid that is now normal. Overall she is doing much better and IV steroids are helpful so will heplock IV fluid. Source: patient Exam Limitations: no limitations Date Seen 06/05/21 Time Seen by a Provider: 10:30 Attending Physician Shayla Jimenez DO PCP Shayla Jimenez DO Referring Physician Date of Admission Jun 04, 2021 at 18:47 Home Medications & Allergies Home Medications Reviewed patient Home Medication Reconciliation performed by pharmacy medication reconciliations timber management technician and/or nursing. Patients Allergies have been reviewed. Allergies Allergies Coded Allergies adhesive tape (Verified Allergy, Intermediate, 02/21/20) BLISTERS AND RAW SKIN almond (Unverified Allergy, Intermediate, Abdominal Pain, 12/29/20) Pt states having pain when she eat them. amlodipine (Verified Allergy, Unknown, 02/22/13) erythromycin base (Verified Allergy, Unknown, 02/22/13) Uncoded Allergies ALMONDS ( Adverse Reaction, Mild, 02/22/20) SHE HAS PAIN ALL OVER WHEN SHE EATS THEM Past Mkydufo-Etovgt-Fueuth Hx Past Med/Social Hx: Reviewed Nursing Past Med/Soc Hx, Reviewed and Corrections made Patient Social History Marrital Status: Employed/Student: employed Alcohol Use: Denies Use Smoking Status: Never a Smoker 2nd Hand Smoke Exposure: No Recent Foreign Travel: No Contact w/other who traveled: No Recent Hopitalizations: Yes ( FOR INPATIENT REHAB) Immunizations Up To Date Tetanus Booster (TDap): Less than 5yrs Pediatric: Yes Date of Pneumonia Vaccine: Jan 04, 2018 Date of Influenza Vaccine: Sep 12, 2020 Seasonal Allergies Seasonal Allergies: Yes Past Medical History Surgeries: Abdominal, Orthopedic Respiratory: Asthma, Pulmonary Embolism, Sleep Apnea COVID 09/2021 Currently Using CPAP: Yes (WITH O2) Currently Using BIPAP: No Cardiac: Chronic Edema/Swelling, Deep Vein Thrombosis, High Cholesterol, Hypertension Neurological: Neuropathy Myasthenia gravis 07/2020 [facility] 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: No Sexually Transmitted Disease: No Menopausal Genitourinary: Bladder Infection Musculoskeletal: Arthritis, Rheumatoid Arthritis, Chronic Back Pain Myasthenia Gravis Endocrine: Hypothyroidsim, Diabetes, Non-Insulin dep HEENT: Double Vision Loss of Vision: Denies Hearing Impairment: Denies Psychosocial: Anxiety, Depression History of Blood Disorders: No Adverse Reaction to Blood [place]: No Family History Alcoholism G8 BROTHER G8 SISTER Alzheimer's disease 19 MOTHER Arthritis 19 FATHER Asthma G8 SISTER Cardiovascular disease 19 FATHER Cataracts 19 FATHER Coronary thrombosis 19 FATHER Deafness or hearing loss SON Diabetes mellitus 19 FATHER G8 SISTER G8 SISTER Drug abuse G8 SISTER Hypertension 19 FATHER G8 SISTER G8 SISTER Kidney disease 19 FATHER Respiratory disorder G8 SISTER G8 SISTER Seizure disorder SON Severe allergy SON Heart Disease, Diabetes, Hypertension Review of Systems Constitutional: see HPI Respiratory: cough, dyspnea on exertion, short of breath Physical Exam Physical Exam Vital Signs Vital Signs - First Documented 06/04/21 06/04/21 20:29 23:50 Temp 36.4 Pulse 71 Resp 16 B/P (MAP) 158/83 (108) Pulse Ox 96 O2 Delivery Nasal Cannula O2 Flow Rate 2.00 Capillary Refill : Height, Weight, BMI Height: 5'6.00" Weight: 297lbs. 0.0oz. 134.549075mn; 62.15 BMI Method:Stated General Appearance: No Apparent Distress, WD/WN, Chronically ill, Obese Eyes: Bilateral Eye Normal Inspection, Bilateral Eye PERRL HEENT: PERRL/EOMI, Normal ENT Inspection, Pharynx Normal Neck: Full Range of Motion, Normal Inspection, Non Tender, Supple, Carotid Bruit Respiratory: Chest Non Tender, No Accessory Muscle Use, No Respiratory Distress, Decreased Breath Sounds, Wheezing Cardiovascular: Regular Rate, Rhythm, No Edema, No Gallop, No JVD, No Murmur, Normal Peripheral Pulses Gastrointestinal: Normal Bowel Sounds, No Organomegaly, No Pulsatile Mass, Non Tender, Soft Back: Normal Inspection, No CVA Tenderness, No Vertebral Tenderness Extremity: Normal Capillary Refill, Normal Inspection, Normal Range of Motion, Non Tender, No Calf Tenderness, No Pedal Edema Neurologic/Psychiatric: Alert, Oriented x3, No Motor/Sensory Deficits, Normal Mood/Affect Skin: Normal Color, Warm/Dry Lymphatic: No Adenopathy Results Results/Procedures Labs Laboratory Tests 06/04/21 19:45 06/05/21 06:30 Patient resulted labs reviewed. 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
[2021-06-05] MEDS: inSUlin ASPART (NovoLOG) 1 UNIT/0.01 ML (CHARGE PER UNIT) SC SCH ×4 (06:18→21:33)
[2021-06-05 06:39] LABS: BASOPHILS % (AUTO) 0 % (0-10); EOSINOPHILS % (AUTO) 0 % (0-10); HEMATOCRIT 40 % (35-52); HEMOGLOBIN 12.5 g/dL (11.5-16.0); LYMPHOCYTES # (AUTO) 0.6 10^3/uL (1.0-4.0); LYMPHOCYTES % (AUTO) 8 % (12-44); MEAN CORPUSCULAR HEMOGLOBIN 29 pg (25-34); MEAN CORPUSCULAR HGB CONC 31 g/dL (32-36); MEAN CORPUSCULAR VOLUME 95 fL (80-99); MEAN PLATELET VOLUME 9.6 fL (9.0-12.2); MONOCYTES # (AUTO) 0.1 10^3/uL (0.0-1.0); MONOCYTES % (AUTO) 1 % (0-12); NEUTROPHILS # (AUTO) 7.4 10^3/uL (1.8-7.8); NEUTROPHILS % (AUTO) 91 % (42-75); PLATELET COUNT 286 10^3/uL (130-400); WHITE BLOOD COUNT 8.1 10^3/uL (4.3-11.0)
[2021-06-05 06:46] LABS: ALBUMIN 3.8 GM/DL (3.2-4.5)
[2021-06-05 06:47] LABS: POTASSIUM 4.5 MMOL/L (3.6-5.0)
[2021-06-05 06:48] LABS: CALCIUM 9.3 MG/DL (8.5-10.1)
[2021-06-05 06:49] LABS: TOTAL PROTEIN 7.2 GM/DL (6.4-8.2)
[2021-06-05 06:51] LABS: BILIRUBIN,TOTAL 0.5 MG/DL (0.1-1.0)
[2021-06-05 06:52] LABS: CREATININE SERUM 0.81 MG/DL (0.60-1.30)
[2021-06-05 06:56] LABS: BAND NEUTROPHILS 1 %; NEUTROPHILS % (MANUAL) 93 %
[2021-06-05 06:57] LABS: LYMPHOCYTES % (MANUAL) 6 %; RBC MORPH NORMAL
[2021-06-05] MEDS: RT-ALBUTEROL/IPRATROPIUM 3 ML (DUONEB) VIAL INH SCH ×4 (07:08→18:37)
[2021-06-05 08:00] VITALS: BP 145/66
[2021-06-05] MEDS: cloNIDine 0.1 MG (CATAPRES) TAB PO SCH ×2 (08:25→21:32)
[2021-06-05] MEDS: LOSARTAN 50 MG (COZAAR) TAB PO SCH (08:25)
[2021-06-05] MEDS: guaiFENesin (MUCINEX) 600 MG TAB PO SCH ×2 (08:25→21:32)
[2021-06-05] MEDS: MONTELUKAST 10 MG (SINGULAIR) TAB PO SCH (08:25)
[2021-06-05] MEDS: SENNA W/DOCUSATE (SENOKOT S) TABLET PO SCH ×2 (08:25→21:34)
[2021-06-05] MEDS: APIXABAN 5 MG (ELIQUIS) TABLET PO SCH ×2 (08:25→21:32)
[2021-06-05] MEDS: DOXYCYCLINE 100 MG (VIBRAMYCIN) TABLET PO SCH ×2 (08:25→21:32)
[2021-06-05] MEDS: polyethylene glycoL POWDER 17 GM (MIRALAX) PACK PO SCH ×2 (08:26→21:33)
[2021-06-05] MEDS ORDERED: FLUTICASONE/VILANTEROL 200 MCG 14'S (BREO) IH SCH (09:00)
--- NOTE | 2021-06-05 09:52 | Diagnostic Imaging Report ---
INDICATION: Pneumonia COMPARISON: 06/04 FINDINGS: The heart is enlarged. There is no vascular congestion. However no pulmonary edema, pneumonia effusion or pneumothorax. IMPRESSION: Enlargement of the heart, otherwise negative. Dictated by: Dictated on workstation # [id number]
[2021-06-05] MEDS: UMECLIDINIUM BROMIDE (INCRUSE ELLIPTA) 7'S IH SCH (10:32)
[2021-06-05] MEDS: ACETAMINOPHEN 325 MG TABLET PO PRN ×2 (11:49→21:32)
[2021-06-05 11:59] VITALS: BP 139/63
--- NOTE | 2021-06-05 12:26 | Progress Note ---
KATHRIN RAYA MED STUDENT 06/05/21 1226: Progress Note CC: States her breathing is somewhat improved. PE: general: well-appearing, morbidly obese CV: RRR, no edema respiratory: CTAB, tachypneic, mild respiratory distress abdomen: soft, nontender extremity: normal inspection, nontender neuro/psych: alert, normal mood/affect Assessment/plan: acute bronchitis CXR negative for pneumonia Cefepime and doxycycline breathing treatments IV steroids T2DM sliding scale insulin closely monitory sugars d/t steroids post-COVID HTN morbid obesity hypothyroidism Restart home meds. Protonix for GI prophylaxis. SHAYLA ZAMORA DO 06/05/21 1337: Supervisory-Addendum Brief Verification & Attestation Participated in pt care: history, MDM, physical Personally performed: exam, history, MDM, supervision of care Care discussed with: Medical Student Procedures: n/a Results interpretation: Verified all documentation Verification and Attestation of Medical Student E/M Service A medical student performed and documented this service in my presence. I reviewed and verified all information documented by the medical student and made modifications to such information, when appropriate. I personally performed the physical exam and medical decision making. Shayla Zamora, Jun 05, 2021,13:36 KATHRIN RAYA MED STUDENT Jun 05, 2021 12:26 SHAYLA ZAMORA DO Jun 05, 2021 13:37
[2021-06-05] MEDS ORDERED: VENL75CA93 PO (13:45)
[2021-06-05] MEDS ORDERED: PRED5TAB PO (13:45)
[2021-06-05] MEDS ORDERED: FLUT9.9S NSEACH (13:45)
[2021-06-05] MEDS ORDERED: EZET10TA49 PO (13:45)
[2021-06-05 15:30] VITALS: BP 143/57
[2021-06-05] MEDS: CEFEPIME INJECTION 1,000 MG in WATER (STERILE) FOR INJECTION 10 ML IV SCH (17:43)
[2021-06-05] MEDS: RT--FLUTICASONE/SALMETEROL 232-14 (AIRDUO RespiCLICK) IH SCH (18:37)
[2021-06-05 20:26] VITALS: BP 121/58
[2021-06-05] MEDS ORDERED: FUROSEMIDE 40 MG (LASIX) TAB PO PRN (21:00)
[2021-06-05] MEDS: MELATONIN 10 MG TABLET PO SCH (21:32)
[2021-06-05 23:27] VITALS: BP 139/66
[2021-06-06] MEDS: methylPREDNISolone 125 MG (Solu-MEDROL) VIAL IVP SCH ×4 (00:55→18:16)
[2021-06-06] MEDS: CEFEPIME INJECTION 1,000 MG in WATER (STERILE) FOR INJECTION 10 ML IV SCH ×4 (00:56→18:15)
[2021-06-06 03:46] VITALS: BP 151/72
[2021-06-06 05:42] LABS: BASOPHILS % (AUTO) 0 % (0-10); EOSINOPHILS % (AUTO) 0 % (0-10); HEMATOCRIT 38 % (35-52); HEMOGLOBIN 11.9 g/dL (11.5-16.0); LYMPHOCYTES # (AUTO) 0.6 10^3/uL (1.0-4.0); LYMPHOCYTES % (AUTO) 4 % (12-44); MEAN CORPUSCULAR HEMOGLOBIN 30 pg (25-34); MEAN CORPUSCULAR HGB CONC 31 g/dL (32-36); MEAN CORPUSCULAR VOLUME 95 fL (80-99); MEAN PLATELET VOLUME 9.8 fL (9.0-12.2); MONOCYTES # (AUTO) 0.3 10^3/uL (0.0-1.0); MONOCYTES % (AUTO) 2 % (0-12); NEUTROPHILS # (AUTO) 13.6 10^3/uL (1.8-7.8); NEUTROPHILS % (AUTO) 93 % (42-75); PLATELET COUNT 306 10^3/uL (130-400); WHITE BLOOD COUNT 14.6 10^3/uL (4.3-11.0)
[2021-06-06 05:51] LABS: ALBUMIN 3.7 GM/DL (3.2-4.5); POTASSIUM 4.4 MMOL/L (3.6-5.0)
[2021-06-06 05:52] LABS: CALCIUM 9.4 MG/DL (8.5-10.1)
[2021-06-06 05:54] LABS: TOTAL PROTEIN 6.8 GM/DL (6.4-8.2)
[2021-06-06 05:56] LABS: BILIRUBIN,TOTAL 0.2 MG/DL (0.1-1.0)
[2021-06-06 05:57] LABS: CREATININE SERUM 0.89 MG/DL (0.60-1.30)
[2021-06-06] MEDS: VENlafaxine XR 75 MG (EFFEXOR XR) CAP PO SCH (06:25)
[2021-06-06] MEDS: LEVOTHYROXINE 50 MCG (LEVOTHROID) TAB PO SCH (06:25)
[2021-06-06] MEDS: PANTOPRAZOLE 40 MG (PROTONIX) TAB PO SCH (06:25)
[2021-06-06] MEDS: inSUlin ASPART (NovoLOG) 1 UNIT/0.01 ML (CHARGE PER UNIT) SC SCH ×4 (06:25→21:22)
--- NOTE | 2021-06-06 07:00 | Progress Note - Hospitalist ---
Subjective HPI/CC On Admission Date Seen by Provider: Jun 06, 2021 Time Seen by Provider: 07:00 CC: SOB HPI: This is a 61yoWF very complicated with Myasthenia Gravis and rheumatoid arthritis, post-covid in September who presented to my office with SOB and cough. She was found to be Covid negative, bronchitis diagnosed, broad-spectrum antibiotics initiated, echocardiogram obtained due to cardiac enlargement on chest X-ray. Labs returned back to normal with elevated lactic acid that is now normal. Overall she is doing much better and IV steroids are helpful so will heplock IV fluid. Subjective/Events-last exam Pt doing pretty well Echocardiogram was a poor study due to habitus but no significance of systolic dysfunction WBC is 14.6 due to steroids Levemir will be initiated at 15 units BID Checked meds and labs Review of Systems General: Fatigue, Malaise Pulmonary: Dyspnea Focused Exam Lactate Level 06/04/21 19:45: Lactic Acid Level 2.14*H 06/04/21 22:08: Lactic Acid Level 1.25 Objective Exam Vital Signs Vital Signs Date Time Temp Pulse Resp B/P (MAP) Pulse Ox O2 Delivery O2 Flow Rate FiO2 06/07/21 00:15 36.6 77 20 131/67 (88) 97 Nasal Cannula 2.00 Capillary Refill : General Appearance: No Apparent Distress, WD/WN, Chronically ill, Obese Respiratory: No Accessory Muscle Use, No Respiratory Distress, Crackles, Decreased Breath Sounds Cardiovascular: Regular Rate, Rhythm Neurologic/Psychiatric: Alert, Oriented x3 Results/Procedures Lab Patient resulted labs reviewed. 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
[2021-06-06] MEDS: RT--FLUTICASONE/SALMETEROL 232-14 (AIRDUO RespiCLICK) IH SCH ×2 (07:03→18:43)
[2021-06-06] MEDS: UMECLIDINIUM BROMIDE (INCRUSE ELLIPTA) 7'S IH SCH (07:03)
[2021-06-06] MEDS: RT-ALBUTEROL/IPRATROPIUM 3 ML (DUONEB) VIAL INH SCH ×4 (07:03→18:38)
[2021-06-06 07:50] VITALS: BP 125/54
[2021-06-06] MEDS: polyethylene glycoL POWDER 17 GM (MIRALAX) PACK PO SCH ×2 (08:06→21:22)
[2021-06-06] MEDS: guaiFENesin (MUCINEX) 600 MG TAB PO SCH ×2 (08:07→21:21)
[2021-06-06] MEDS: APIXABAN 5 MG (ELIQUIS) TABLET PO SCH ×2 (08:07→21:21)
[2021-06-06] MEDS: MONTELUKAST 10 MG (SINGULAIR) TAB PO SCH (08:07)
[2021-06-06] MEDS: TRIAMTERENE/HCTZ 75-50 (MAXZIDE,DYAZIDE) TABLET PO SCH (08:07)
[2021-06-06] MEDS: KCL 20 MEQ TAB (K-DUR) PO SCH ×2 (08:07→18:16)
[2021-06-06] MEDS: LOSARTAN 50 MG (COZAAR) TAB PO SCH (08:07)
[2021-06-06] MEDS: LORATADINE (CLARITIN) 10 MG TAB PO SCH ×2 (08:07→21:21)
[2021-06-06] MEDS: eZETimibe 10 MG (ZETIA) TABLET PO SCH (08:08)
[2021-06-06] MEDS: cloNIDine 0.1 MG (CATAPRES) TAB PO SCH ×2 (08:08→21:21)
[2021-06-06] MEDS: SENNA W/DOCUSATE (SENOKOT S) TABLET PO SCH ×2 (08:08→21:21)
[2021-06-06] MEDS: DOXYCYCLINE 100 MG (VIBRAMYCIN) TABLET PO SCH ×2 (08:08→21:21)
[2021-06-06] MEDS: FLUTICASONE NASAL SPRAY (FLONASE) 16 GM BTL NS SCH (08:09)
[2021-06-06 16:00] VITALS: BP 133/67
[2021-06-06] MEDS: MELATONIN 10 MG TABLET PO SCH (21:29)
[2021-06-07 00:15] VITALS: BP_SYST 101; BP_SYST 131; BP_DIAS 58; BP_DIAS 67
[2021-06-07] MEDS: methylPREDNISolone 125 MG (Solu-MEDROL) VIAL IVP SCH ×3 (00:51→11:45)
[2021-06-07] MEDS: CEFEPIME INJECTION 1,000 MG in WATER (STERILE) FOR INJECTION 10 ML IV SCH ×3 (02:00→11:44)
[2021-06-07] MEDS: PANTOPRAZOLE 40 MG (PROTONIX) TAB PO SCH (06:52)
[2021-06-07] MEDS: VENlafaxine XR 75 MG (EFFEXOR XR) CAP PO SCH (06:52)
[2021-06-07] MEDS: LEVOTHYROXINE 50 MCG (LEVOTHROID) TAB PO SCH (06:52)
[2021-06-07] MEDS: inSUlin ASPART (NovoLOG) 1 UNIT/0.01 ML (CHARGE PER UNIT) SC SCH ×2 (06:53→11:45)
[2021-06-07] MEDS: RT--FLUTICASONE/SALMETEROL 232-14 (AIRDUO RespiCLICK) IH SCH (06:56)
[2021-06-07] MEDS: UMECLIDINIUM BROMIDE (INCRUSE ELLIPTA) 7'S IH SCH (06:56)
[2021-06-07] MEDS: RT-ALBUTEROL/IPRATROPIUM 3 ML (DUONEB) VIAL INH SCH ×3 (06:56→14:52)
[2021-06-07 07:08] LABS: BASOPHILS % (AUTO) 0 % (0-10); EOSINOPHILS % (AUTO) 0 % (0-10); HEMATOCRIT 37 % (35-52); HEMOGLOBIN 11.7 g/dL (11.5-16.0); LYMPHOCYTES # (AUTO) 0.7 10^3/uL (1.0-4.0); LYMPHOCYTES % (AUTO) 5 % (12-44); MEAN CORPUSCULAR HEMOGLOBIN 30 pg (25-34); MEAN CORPUSCULAR HGB CONC 32 g/dL (32-36); MEAN CORPUSCULAR VOLUME 94 fL (80-99); MONOCYTES # (AUTO) 0.3 10^3/uL (0.0-1.0); MONOCYTES % (AUTO) 2 % (0-12); NEUTROPHILS # (AUTO) 13.5 10^3/uL (1.8-7.8); NEUTROPHILS % (AUTO) 92 % (42-75); PLATELET COUNT 302 10^3/uL (130-400); WHITE BLOOD COUNT 14.6 10^3/uL (4.3-11.0)
[2021-06-07 07:20] LABS: ALBUMIN 3.6 GM/DL (3.2-4.5); POTASSIUM 4.5 MMOL/L (3.6-5.0)
[2021-06-07 07:21] LABS: CALCIUM 9.3 MG/DL (8.5-10.1)
[2021-06-07 07:22] LABS: TOTAL PROTEIN 6.4 GM/DL (6.4-8.2)
[2021-06-07 07:24] LABS: BILIRUBIN,TOTAL 0.2 MG/DL (0.1-1.0)
[2021-06-07 07:26] LABS: CREATININE SERUM 0.93 MG/DL (0.60-1.30)
[2021-06-07 08:00] VITALS: BP 162/76
[2021-06-07] MEDS: cloNIDine 0.1 MG (CATAPRES) TAB PO SCH (08:59)
[2021-06-07] MEDS: guaiFENesin (MUCINEX) 600 MG TAB PO SCH (08:59)
[2021-06-07] MEDS: eZETimibe 10 MG (ZETIA) TABLET PO SCH (08:59)
[2021-06-07] MEDS: APIXABAN 5 MG (ELIQUIS) TABLET PO SCH (08:59)
[2021-06-07] MEDS: TRIAMTERENE/HCTZ 75-50 (MAXZIDE,DYAZIDE) TABLET PO SCH (08:59)
[2021-06-07] MEDS: MONTELUKAST 10 MG (SINGULAIR) TAB PO SCH (08:59)
[2021-06-07] MEDS: LOSARTAN 50 MG (COZAAR) TAB PO SCH (08:59)
[2021-06-07] MEDS: LORATADINE (CLARITIN) 10 MG TAB PO SCH (08:59)
[2021-06-07] MEDS: KCL 20 MEQ TAB (K-DUR) PO SCH (08:59)
[2021-06-07] MEDS: DOXYCYCLINE 100 MG (VIBRAMYCIN) TABLET PO SCH (08:59)
[2021-06-07] MEDS: FLUTICASONE NASAL SPRAY (FLONASE) 16 GM BTL NS SCH (09:00)
[2021-06-07] MEDS: polyethylene glycoL POWDER 17 GM (MIRALAX) PACK PO SCH (09:02)
[2021-06-07] MEDS: SENNA W/DOCUSATE (SENOKOT S) TABLET PO SCH (09:02)
[2021-06-07] MEDS ORDERED: PRD20T PO (13:44)
[2021-06-07] MEDS ORDERED: CEFD300C3 PO (13:44)
[2021-06-07] MEDS ORDERED: DOXY100T2 PO (13:44)
[2021-06-07] MEDS ORDERED: AZAT50TA16 PO (13:44)
[2021-06-07] MEDS ORDERED: IPRA3AMP31 INH (13:44)
[2021-06-07] MEDS ORDERED: GUAI600T43 PO (13:44)
--- NOTE | 2021-06-07 13:45 | Discharge Summary ---
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 amlodipine (Verified Allergy, Unknown, 02/22/13) erythromycin base (Verified Allergy, Unknown, 02/22/13) Uncoded Allergies: ALMONDS (Adverse Reaction, Mild, 02/22/20) SHE HAS PAIN ALL OVER WHEN SHE EATS THEM Vitals & I&Os Vital Signs Date Time Temp Pulse Resp B/P (MAP) Pulse Ox O2 Delivery O2 Flow Rate FiO2 06/07/21 16:08 35.9 71 20 162/76 98 Nasal Cannula 2.00 General Appearance: Alert, Oriented X3, Cooperative Respiratory: Clear to Auscultation Cardiovascular: Regular Rate Neuro: Normal Gait, Normal Speech, Strength at 5/5 X4 Ext Psych/Mental Status: Mental Status NL Hospital Course Was the Problem List Reviewed?: Yes Short hospital course after admitted directly from my clinic due to impending respiratory insufficiency with wheezing and acute bacterial bronchitis with no evidence of pneumonia on chest x-ray. Patient responded to aggressive IV antibiotics and IV steroids and echocardiogram revealed normal ejection fracti on. Overall her work-up was normal and patient was restarted on all home medications and discharged in improved condition. Labs (last 24 hrs) Laboratory Tests 06/04/21 19:45: White Blood Count 7.8, Red Blood Count 4.08, Hemoglobin 12.0, Hematocrit 39, Mean Corpuscular Volume 97, Mean Corpuscular Hemoglobin 29, Mean Corpuscular Hemoglobin Concent 31L, Red Cell Distribution Width 14.3, Platelet Count 308, Mean Platelet Volume 9.9, Sodium Level 138, Potassium Level 4.5, Chloride Level 101, Carbon Dioxide Level 27, Anion Gap 10, Blood Urea Nitrogen 20H, Creatinine 1.15, Estimat Glomerular Filtration Rate 48, BUN/Creatinine Ratio 17, Glucose Level 175H, Lactic Acid Level 2.14*H, Calcium Level 9.4, Corrected Calcium 9.6, Total Bilirubin 0.5, Aspartate Amino Transf (AST/SGOT) 15, Alanine Aminotransferase (ALT/SGPT) 20, Alkaline Phosphatase 98, Total Protein 6.9, Albumin 3.7 06/04/21 19:55: Influenza Type A (RT-PCR) Not Detected, Influenza Type B (RT-PCR) Not Detected, SARS-CoV-2 RNA (RT-PCR) Not Detected 06/04/21 22:08: Lactic Acid Level 1.25 06/05/21 06:16: Glucometer 206H 06/05/21 06:30: White Blood Count 8.1, Red Blood Count 4.25, Hemoglobin 12.5, Hematocrit 40, Mean Corpuscular Volume 95, Mean Corpuscular Hemoglobin 29, Mean Corpuscular Hemoglobin Concent 31L, Red Cell Distribution Width 14.0, Platelet Count 286, Mean Platelet Volume 9.6, Immature Granulocyte % (Auto) 1, Neutrophils (%) (Auto) 91H, Lymphocytes (%) (Auto) 8L, Monocytes (%) (Auto) 1, Eosinophils (%) (Auto) 0, Basophils (%) (Auto) 0, Neutrophils # (Auto) 7.4, Lymphocytes # (Auto) 0.6L, Monocytes # (Auto) 0.1, Eosinophils # (Auto) 0.0, Basophils # (Auto) 0.0, Immature Granulocyte # (Auto) 0.0, Neutrophils % (Manual) 93, Lymphocytes % (Manual) 6, Band Neutrophils 1, Blood Morphology Comment NORMAL, Sodium Level 139, Potassium Level 4.5, Chloride Level 102, Carbon Dioxide Level 26, Anion Gap 11, Blood Urea Nitrogen 20H, Creatinine 0.81, Estimat Glomerular Filtration Rate 71, BUN/Creatinine Ratio 25, Glucose Level 227H, Calcium Level 9.3, Corrected Calcium 9.5, Total Bilirubin 0.5, Aspartate Amino Transf (AST/SGOT) 14, Alanine Aminotransferase (ALT/SGPT) 21, Alkaline Phosphatase 93, Total Protein 7.2, Albumin 3.8 06/05/21 10:29: Glucometer 347H 06/05/21 16:13: Glucometer 352H 06/05/21 20:13: Glucometer 330H 06/06/21 05:16: White Blood Count 14.6H, Red Blood Count 4.01, Hemoglobin 11.9, Hematocrit 38, Mean Corpuscular Volume 95, Mean Corpuscular Hemoglobin 30, Mean Corpuscular Hemoglobin Concent 31L, Red Cell Distribution Width 14.7H, Platelet Count 306, Mean Platelet Volume 9.8, Immature Granulocyte % (Auto) 1, Neutrophils (%) (Auto) 93H, Lymphocytes (%) (Auto) 4L, Monocytes (%) (Auto) 2, Eosinophils (%) (Auto) 0, Basophils (%) (Auto) 0, Neutrophils # (Auto) 13.6H, Lymphocytes # (Auto) 0.6L, Monocytes # (Auto) 0.3, Eosinophils # (Auto) 0.0, Basophils # (Auto) 0.0, Immature Granulocyte # (Auto) 0.1, Sodium Level 140, Potassium Level 4.4, Chloride Level 105, Carbon Dioxide Level 26, Anion Gap 9, Blood Urea Nitrogen 22H, Creatinine 0.89, Estimat Glomerular Filtration Rate 64, BUN/Creatinine Ratio 25, Glucose Level 228H, Calcium Level 9.4, Corrected Calcium 9.6, Total Bilirubin 0.2, Aspartate Amino Transf (AST/SGOT) 9, Alanine Aminotransferase (ALT/SGPT) 18, Alkaline Phosphatase 89, Total Protein 6.8, Albumin 3.7 06/06/21 10:44: Glucometer 254H 06/06/21 15:58: Glucometer 354H 06/06/21 20:14: Glucometer 320H 06/07/21 05:28: Glucometer 220H 06/07/21 06:49: White Blood Count 14.6H, Red Blood Count 3.92, Hemoglobin 11.7, Hematocrit 37, Mean Corpuscular Volume 94, Mean Corpuscular Hemoglobin 30, Mean Corpuscular Hemoglobin Concent 32, Red Cell Distribution Width 15.3H, Platelet Count 302, Me an Platelet Volume 10.0, Immature Granulocyte % (Auto) 1, Neutrophils (%) (Auto) 92H, Lymphocytes (%) (Auto) 5L, Monocytes (%) (Auto) 2, Eosinophils (%) (Auto) 0, Basophils (%) (Auto) 0, Neutrophils # (Auto) 13.5H, Lymphocytes # (Auto) 0.7L , Monocytes # (Auto) 0.3, Eosinophils # (Auto) 0.0, Basophils # (Auto) 0.0, Immature Granulocyte # (Auto) 0.1, Sodium Level 139, Potassium Level 4.5, Chloride Level 102, Carbon Dioxide Level 26, Anion Gap 11, Blood Urea Nitrogen 25H, Creatinine 0.93, Estimat Glomerular Filtration Rate 61, BUN/Creatinine Ratio 27, Glucose Level 235H, Calcium Level 9.3, Corrected Calcium 9.6, Total Bilirubin 0.2, Aspartate Amino Transf (AST/SGOT) 9, Alanine Aminotransferase (ALT/SGPT) 17, Alkaline Phosphatase 82, Total Protein 6.4, Albumin 3.6 06/07/21 11:11: Glucometer 303H 06/07/21 15:54: Glucometer 287H Microbiology 06/05/21 Blood Culture - Preliminary, Resulted No growth Pending Labs Microbiology Date/Time Source Procedure Growth Status 06/05/21 06:30 Peripheral Lt Ac Blood Culture - Preliminary No growth Resulted 06/04/21 19:45 Peripheral Rt Ac Blood Culture - Preliminary No growth Resulted Laboratory Tests 06/04/21 19:45: White Blood Count 7.8, Red Blood Count 4.08, Hemoglobin 12.0, Hematocrit 39, Mean Corpuscular Volume 97, Mean Corpuscular Hemoglobin 29, Mean Corpuscular Hemoglobin Concent 31, Red Cell Distribution Width 14.3, Platelet Count 308, Mean Platelet Volume 9.9, Sodium Level 138, Potassium Level 4.5, Chloride Level 101, Carbon Dioxide Level 27, Anion Gap 10, Blood Urea Nitrogen 20, Creatinine 1.15, Estimat Glomerular Filtration Rate 48, BUN/Creatinine Ratio 17, Glucose Level 175, Lactic Acid Level 2.14, Calcium Level 9.4, Corrected Calcium 9.6, Total Bilirubin 0.5, Aspartate Amino Transf (AST/SGOT) 15, Alanine Aminotransferase (ALT/SGPT) 20, Alkaline Phosphatase 98, Total Protein 6.9, Albumin 3.7 06/04/21 19:55: Influenza Type A (RT-PCR) Not Detected, Influenza Type B (RT-PCR) Not Detected, SARS-CoV-2 RNA (RT-PCR) Not Detected 06/04/21 22:08: Lactic Acid Level 1.25 06/05/21 06:16: Glucometer 206 06/05/21 06:30: White Blood Count 8.1, Red Blood Count 4.25, Hemoglobin 12.5, Hematocrit 40, Mean Corpuscular Volume 95, Mean Corpuscular Hemoglobin 29, Mean Corpuscular Hemoglobin Concent 31, Red Cell Distribution Width 14.0, Platelet Count 286, Mean Platelet Volume 9.6, Immature Granulocyte % (Auto) 1, Neutrophils (%) (Auto) 91, Lymphocytes (%) (Auto) 8, Monocytes (%) (Auto) 1, Eosinophils (%) (Auto) 0, Basophils (%) (Auto) 0, Neutrophils # (Auto) 7.4, Lymphocytes # (Auto) 0.6, Monocytes # (Auto) 0.1, Eosinophils # (Auto) 0.0, Basophils # (Auto) 0.0, Immature Granulocyte # (Auto) 0.0, Neutrophils % (Manual) 93, Lymphocytes % (Manual) 6, Band Neutrophils 1, Blood Morphology Comment NORMAL, Sodium Level 139, Potassium Level 4.5, Chloride Level 102, Carbon Dioxide Level 26, Anion Gap 11, Blood Urea Nitrogen 20, Creatinine 0.81, Estimat Glomerular Filtration Rate 71, BUN/Creatinine Ratio 25, Glucose Level 227, Calcium Level 9.3, Corrected Calcium 9.5, Total Bilirubin 0.5, Aspartate Amino Transf (AST/SGOT) 14, Alanine Aminotransferase (ALT/SGPT) 21, Alkaline Phosphatase 93, Total Protein 7.2, Albumin 3.8 06/05/21 10:29: Glucometer 347 06/05/21 16:13: Glucometer 352 06/05/21 20:13: Glucometer 330 06/06/21 05:16: White Blood Count 14.6, Red Blood Count 4.01, Hemoglobin 11.9, Hematocrit 38, Mean Corpuscular Volume 95, Mean Corpuscular Hemoglobin 30, Mean Corpuscular Hemoglobin Concent 31, Red Cell Distribution Width 14.7, Platelet Count 306, Mean Platelet Volume 9.8, Immature Granulocyte % (Auto) 1, Neutrophils (%) (Auto) 93, Lymphocytes (%) (Auto) 4, Monocytes (%) (Auto) 2, Eosinophils (%) (Auto) 0, Basophils (%) (Auto) 0, Neutrophils # (Auto) 13.6, Lymphocytes # (Auto) 0.6, Monocytes # (Auto) 0.3, Eosinophils # (Auto) 0.0, Basophils # (Auto) 0.0, Immature Granulocyte # (Auto) 0.1, Sodium Level 140, Potassium Level 4.4, Chloride Level 105, Carbon Dioxide Level 26, Anion Gap 9, Blood Urea Nitrogen 22, Creatinine 0.89, Estimat Glomerular Filtration Rate 64, BUN/Creatinine Ratio 25, Glucose Level 228, Calcium Level 9.4, Corrected Calcium 9.6, Total Bilirubin 0.2, Aspartate Amino Transf (AST/SGOT) 9, Alanine Aminotransferase (ALT/SGPT) 18, Alkaline Phosphatase 89, Total Protein 6.8, Albumin 3.7 06/06/21 10:44: Glucometer 254 06/06/21 15:58: Glucometer 354 06/06/21 20:14: Glucometer 320 06/07/21 05:28: Glucometer 220 06/07/21 06:49: White Blood Count 14.6, Red Blood Count 3.92, Hemoglobin 11.7, Hematocrit 37, Mean Corpuscular Volume 94, Mean Corpuscular Hemoglobin 30, Mean Corpuscular Hemoglobin Concent 32, Red Cell Distribution Width 15.3, Platelet Count 302, Mean Platelet Volume 10.0, Immature Granulocyte % (Auto) 1, Neutrophils (%) (Auto) 92, Lymphocytes (%) (Auto) 5, Monocytes (%) (Auto) 2, Eosinophils (%) (Auto) 0, Basophils (%) (Auto) 0, Neutrophils # (Auto) 13.5, Lymphocytes # (Auto) 0.7, Monocytes # (Auto) 0.3, Eosinophils # (Auto) 0.0, Basophils # (Auto) 0.0, Immature Granulocyte # (Auto) 0.1, Sodium Level 139, Potassium Level 4.5, Chloride Level 102, Carbon Dioxide Level 26, Anion Gap 11, Blood Urea Nitrogen 25, Creatinine 0.93, Estimat Glomerular Filtration Rate 61, BUN/Creatinine Ratio 27, Glucose Level 235, Calcium Level 9.3, Corrected Calcium 9.6, Total Bilirubin 0.2, Aspartate Amino Transf (AST/SGOT) 9, Alanine Aminotransferase (ALT/SGPT) 17, Alkaline Phosphatase 82, Total Protein 6.4, Albumin 3.6 06/07/21 11:11: Glucometer 303 06/07/21 15:54: Glucometer 287 Discharge Home Medications: Active Scripts Active Prednisone 20 Mg Tab 20 Mg PO DAILY Take 3 tabs(60mg)daily, decrease by 1/2 tab(10mg)daily. Cefdinir 300 Mg Capsule 300 Mg PO BID Mucinex (Guaifenesin) 600 Mg Tab.er.12h 600 Mg PO BID Iprat-Albut 0.5-3(2.5) mg/3 ml (Ipratropium/Albuterol Sulfate) 3 Ml Ampul.neb 3 Ml INH RTQID Doxycycline Hyclate 100 Mg Tablet 100 Mg PO BID Imuran (Azathioprine) 50 Mg Tablet 100 Mg PO BID 5 Days TAKES 2 (50MG) TABS Hold until you see Dr Jimenez Reported Flonase Allergy Relief (Fluticasone Propionate) 9.9 Ml [place].susp 1-2 [place] NSEACH DAILY 1 SPRAY EACH NARE DAILY Venlafaxine HCl ER (Venlafaxine HCl) 75 Mg Cap.er.24h 75 Mg PO DAILY Ezetimibe 10 Mg Tablet 10 Mg PO DAILY Breo Ellipta 200-25 Mcg INH (Fluticasone/Vilanterol) 1 Each Blst.w.dev 1 Each IH DAILY Melatonin 10 Mg Tablet 20 Mg PO HS TAKES 2 (10MG) TABS Calcium Carbonate 500 Mg Tablet 500 Mg PO BID Eliquis (Apixaban) 5 Mg Tablet 5 Mg PO BID Potassium Chloride 20 Meq Tablet.er 20 Meq PO BID Furosemide 40 Mg Tablet 40 Mg PO DAILY PRN All Day Allergy (Cetirizine HCl) 10 Mg Tablet 10 Mg PO BID Losartan Potassium 50 Mg Tablet 50 Mg PO DAILY Citalopram HBr (Citalopram Hydrobromide) 20 Mg Tablet 20 Mg PO DAILY Pantoprazole Sodium 40 Mg Tablet.dr 40 Mg PO DAILY Proair Hfa (Albuterol Sulfate) 1 Puff Puff 2 Puff INH Q4H PRN Atorvastatin Calcium 20 Mg Tablet 20 Mg PO DAILY Triamterene-Hctz 37.5-25 mg Cp (Triamterene/Hydrochlorothiazid) 1 Each Capsule 1 Cap PO DAILY Spiriva Respimat 1.25MCG/ACTUATION (Tiotropium [place]) 4 Gm Mist.inhal 2 Puff INH DAILY LAST FILLED 08-11-2020 #12/13 DAY SUPPLY Montelukast Sodium 10 Mg Tablet 10 Mg PO DAILY Clonidine HCl 0.1 Mg Tablet 0.1 Mg PO BID Levothyroxine Sodium 50 Mcg Tablet 50 Mcg PO DAILY Instructions to patient/family Please see electronic discharge instructions given to patient. Diagnosis/Problems Diagnosis/Problems (1) Acute bronchitis, bacterial Status: Acute (2) HTN (hypertension) Status: Acute (3) Myasthenia gravis (4) Rheumatoid arthritis Status: Chronic (5) Diabetes mellitus Status: Chronic (6) Morbid obesity Status: Acute (7) Pulmonary embolism Status: Acute (8) COVID-19 Status: Acute FABIENNE JIMENEZ DO Jun 07, 2021 13:45
[2021-06-07 16:00] VITALS: BP 120/57
[2021-06-07 16:08] VITALS: BP 162/76
[2021-06-07] MEDS ORDERED: methylPREDNISolone 125 MG (Solu-MEDROL) VIAL IVP SCH (21:00)
== END 2021-06-07 13:39 | disposition home or self-care (01) ==
LOC: UNDOADMOB 18:47 → 4TH 18:47 → UNDODISOB 06-07 16:08
PROVIDERS: ADMIT Internal Medicine; ATTEND Internal Medicine
DX: J20.8 Acute bronchitis due to other specified organisms (principal); J45.901 Unspecified asthma with (acute) exacerbation; E11.40 Type 2 diabetes mellitus with diabetic neuropathy, unspecified; G70.00 Myasthenia gravis without (acute) exacerbation; M06.9 Rheumatoid arthritis, unspecified; I10 Essential (primary) hypertension; E78.5 Hyperlipidemia, unspecified; G47.33 Obstructive sleep apnea (adult) (pediatric); J30.2 Other seasonal allergic rhinitis; E78.00 Pure hypercholesterolemia, unspecified; E03.9 Hypothyroidism, unspecified; F41.9 Anxiety disorder, unspecified; F32.9 Major depressive disorder, single episode, unspecified; Z68.44 Body mass index [BMI] 60.0-69.9, adult; Z86.711 Personal history of pulmonary embolism; Z91.018 Allergy to other foods; Z91.048 Other nonmedicinal substance allergy status; Z88.1 Allergy status to other antibiotic agents; Z79.899 Other long term (current) drug therapy; Z79.2 Long term (current) use of antibiotics; Z79.51 Long term (current) use of inhaled steroids; Z79.01 Long term (current) use of anticoagulants; Z79.890 Hormone replacement therapy; Z86.718 Personal history of other venous thrombosis and embolism
CPT/HCPCS: 71045; 80053 ×4; 82947 ×3; 83605; 85007; 85025 ×2; 85027 ×2; 87040 ×2; 87636; 93306; 94640 ×6; 94760 ×2; G0378; G0379; 36415; 99211

== ENCOUNTER → 2021-06-04 | Outpatient (CLI) | payer BC ==
[~2021-06-04] MED LIST changes: +CEFD300C3 PO; +DOXY100T2 PO; +EZET10TA49 PO; +FLUT9.9S NSEACH; +IPRA3AMP31 INH; -RT-ALBUTEROL SULF 2.5 MG/3 ML PRE-MIX VIAL INH ONE; +VENL75CA93 PO
[2021-06-04 13:03] LABS: BASOPHILS # (AUTO) 0.1 10^3/uL (0.0-0.1); BASOPHILS % (AUTO) 1 % (0-10); EOSINOPHILS # (AUTO) 0.1 10^3/uL (0.0-0.3); EOSINOPHILS % (AUTO) 1 % (0-10); HEMATOCRIT 41 % (35-52); HEMOGLOBIN 12.8 g/dL (11.5-16.0); LYMPHOCYTES # (AUTO) 0.9 10^3/uL (1.0-4.0); LYMPHOCYTES % (AUTO) 11 % (12-44); MEAN CORPUSCULAR HEMOGLOBIN 30 pg (25-34); MEAN CORPUSCULAR HGB CONC 31 g/dL (32-36); MEAN CORPUSCULAR VOLUME 96 fL (80-99); MEAN PLATELET VOLUME 9.8 fL (9.0-12.2); MONOCYTES # (AUTO) 0.5 10^3/uL (0.0-1.0); MONOCYTES % (AUTO) 6 % (0-12); NEUTROPHILS % (AUTO) 81 % (42-75); PLATELET COUNT 294 10^3/uL (130-400); WHITE BLOOD COUNT 8.6 10^3/uL (4.3-11.0)
[2021-06-04 13:23] LABS: ALBUMIN 3.8 GM/DL (3.2-4.5); BILIRUBIN,TOTAL 0.6 MG/DL (0.1-1.0); CALCIUM 9.7 MG/DL (8.5-10.1); CREATININE SERUM 0.98 MG/DL (0.60-1.30); POTASSIUM 4.6 MMOL/L (3.6-5.0); TOTAL PROTEIN 7.1 GM/DL (6.4-8.2)
--- NOTE | 2021-06-04 13:36 | Diagnostic Imaging Report ---
Indication: History of COVID, wheezing, cough, shortness of air. Compared with exam 04/29/2021. Findings: Enlargement of the heart is improved. There is no abnormal vascular congestion. The lungs are clear. No edema, pneumonia, effusion or pneumothorax. Impression: Heart size decreased, now likely within normal limits. No adverse change with clear lungs and no acute pleural pathology. Dictated by: Dictated on workstation # [id number]
== END ==
LOC: RAD 12:43
PROVIDERS: ATTEND Internal Medicine
DX: R05 Cough (principal); R06.2 Wheezing; R06.02 Shortness of breath; I51.9 Heart disease, unspecified; Z86.16 Personal history of COVID-19
CPT/HCPCS: 36415; 71046; 80053; 83605; 84145; 85025

== ENCOUNTER 2021-10-15 16:30 | Inpatient (IN) | payer BC ==
[~2021-10-15] VITALS: Ht 167.6 cm; Wt 174.4 kg
[~2021-10-15 16:30] MED LIST changes: +CEFD300C3 PO; -CITA10TA7 PO; +CITA10TA9 PO; -CLIN150C18 PO; +CLIN150C20 PO; +CYCL10TA25 PO; +DOXY100T2 PO; +EZET10TA49 PO; +FLUT9.9S NSEACH; -GUAI473L29 PO; +IPRA3AMP31 INH; -LEVO500T80 PO; +LEVO500T81 PO; +MONT-40 PO; -MONT10TA32 PO; +POTA-160 PO; +POTA-179 PO; -POTA10TA6 PO; -POTA20TA15 PO; +VENL75CA93 PO
[2021-10-15 17:35] VITALS: BP 137/60
[2021-10-15] MEDS ORDERED: ONDANSETRON 4 MG/2 ML (SDV) Z0FRAN IV ONE (17:45)
[2021-10-15] MEDS ORDERED: ACETAMINOPHEN 500 MG TAB (TYLENOL) PO PRN (17:45)
[2021-10-15] MEDS ORDERED: PATIENT MAY USE OWN MED,SINGLE MED PO SCH (17:45)
--- NOTE | 2021-10-15 17:51 | Diagnostic Imaging Report ---
INDICATION: Cough and wheezing. Portable chest 5:50 PM Heart size and pulmonary vascularity are upper limits of normal. Lungs are clear. There are no effusions or pneumothoraces. IMPRESSION: No acute abnormalities in the chest. No change compared to 06/05/2021. Dictated by: Dictated on workstation # [id number]
[2021-10-15 18:03] LABS: ABG BASE EXCESS 1.9 MMOL/L (-2.5-2.5); ABG OXYGEN SATURATION 76 % (94-100); ABG PCO2 48 MMHG (35-45); ABG PH 7.36 (7.37-7.43); ABG PO2 41 MMHG (79-93); ABG TCO2 28.4 MMOL/L (21.0-31.0); ALLENS TEST POSITIVE; INSPIRED O2 2 L; PATIENT TEMP 36.2; VENTILATOR NO
[2021-10-15 18:05] LABS: BASOPHILS # (AUTO) 0.1 10^3/uL (0.0-0.1); BASOPHILS % (AUTO) 1 % (0-10); EOSINOPHILS # (AUTO) 0.1 10^3/uL (0.0-0.3); EOSINOPHILS % (AUTO) 1 % (0-10); HEMATOCRIT 37 % (35-52); HEMOGLOBIN 11.4 g/dL (11.5-16.0); LYMPHOCYTES # (AUTO) 1.2 10^3/uL (1.0-4.0); LYMPHOCYTES % (AUTO) 14 % (12-44); MEAN CORPUSCULAR HEMOGLOBIN 30 pg (25-34); MEAN CORPUSCULAR HGB CONC 31 g/dL (32-36); MEAN CORPUSCULAR VOLUME 97 fL (80-99); MEAN PLATELET VOLUME 9.5 fL (9.0-12.2); MONOCYTES # (AUTO) 0.5 10^3/uL (0.0-1.0); MONOCYTES % (AUTO) 6 % (0-12); NEUTROPHILS # (AUTO) 6.7 10^3/uL (1.8-7.8); NEUTROPHILS % (AUTO) 78 % (42-75); PLATELET COUNT 327 10^3/uL (130-400); WHITE BLOOD COUNT 8.6 10^3/uL (4.3-11.0)
[2021-10-15 18:13] LABS: ALBUMIN 3.9 GM/DL (3.2-4.5); POTASSIUM 4.6 MMOL/L (3.6-5.0)
[2021-10-15 18:15] LABS: CALCIUM 9.7 MG/DL (8.5-10.1)
[2021-10-15 18:16] LABS: TOTAL PROTEIN 6.9 GM/DL (6.4-8.2)
[2021-10-15 18:18] LABS: BILIRUBIN,TOTAL 0.4 MG/DL (0.1-1.0)
[2021-10-15 18:20] LABS: CREATININE SERUM 0.89 MG/DL (0.60-1.30)
[2021-10-15] MEDS: CEFEPIME INJECTION 1,000 MG in NS (IVPB) 50 ML IV SCH (18:25)
[2021-10-15] MEDS: methylPREDNISolone 40 MG/ML (Solu-MEDROL) VIAL IV SCH (18:25)
[2021-10-15] MEDS ORDERED: inSUlin (REGULAR) HUMAN 1 UNIT/0.01 ML (CHARGE PER UNIT) SC PRN (18:45)
[2021-10-15] MEDS: RT-ALBUTEROL SULF 2.5 MG/3 ML PRE-MIX VIAL INH SCH ×2 (18:46→21:29)
[2021-10-15 19:10] VITALS: BP 149/68
[2021-10-15] MEDS ORDERED: cloNIDine 0.1 MG (CATAPRES) TAB PO PRN (21:15)
[2021-10-15] MEDS: inSUlin ASPART (NovoLOG) 1 UNIT/0.01 ML (CHARGE PER UNIT) SC SCH (22:03)
[2021-10-15] MEDS: APIXABAN 5 MG (ELIQUIS) TABLET PO SCH (22:03)
[2021-10-15] MEDS: DOXYCYCLINE INJECTION 100 MG in NS (IVPB) 100 ML IV SCH (22:03)
[2021-10-16] VITALS (7 sets, daily range): BP systolic 123–148; BP diastolic 60–68
[2021-10-16] MEDS: methylPREDNISolone 40 MG/ML (Solu-MEDROL) VIAL IV SCH ×5 (00:15→23:45)
[2021-10-16] MEDS: RT-ALBUTEROL SULF 2.5 MG/3 ML PRE-MIX VIAL INH SCH ×6 (01:17→21:53)
[2021-10-16] MEDS: inSUlin ASPART (NovoLOG) 1 UNIT/0.01 ML (CHARGE PER UNIT) SC SCH ×4 (06:19→20:31)
[2021-10-16 06:37] LABS: BASOPHILS % (AUTO) 0 % (0-10); EOSINOPHILS % (AUTO) 0 % (0-10); HEMATOCRIT 36 % (35-52); HEMOGLOBIN 11.1 g/dL (11.5-16.0); LYMPHOCYTES # (AUTO) 0.5 10^3/uL (1.0-4.0); LYMPHOCYTES % (AUTO) 6 % (12-44); MEAN CORPUSCULAR HEMOGLOBIN 30 pg (25-34); MEAN CORPUSCULAR HGB CONC 31 g/dL (32-36); MEAN CORPUSCULAR VOLUME 96 fL (80-99); MEAN PLATELET VOLUME 9.5 fL (9.0-12.2); MONOCYTES % (AUTO) 1 % (0-12); NEUTROPHILS % (AUTO) 92 % (42-75); PLATELET COUNT 296 10^3/uL (130-400); WHITE BLOOD COUNT 8.7 10^3/uL (4.3-11.0)
[2021-10-16 06:51] LABS: ALBUMIN 3.8 GM/DL (3.2-4.5); POTASSIUM 4.5 MMOL/L (3.6-5.0)
[2021-10-16 06:52] LABS: CALCIUM 9.1 MG/DL (8.5-10.1)
[2021-10-16 06:53] LABS: TOTAL PROTEIN 6.6 GM/DL (6.4-8.2)
[2021-10-16 06:55] LABS: BILIRUBIN,TOTAL 0.4 MG/DL (0.1-1.0)
[2021-10-16 06:57] LABS: CREATININE SERUM 0.92 MG/DL (0.60-1.30)
[2021-10-16 07:23] LABS: HELMET/BITE CELLS SLIGHT; LYMPHOCYTES % (MANUAL) 13 %; MICROCYTOSIS SLIGHT; MONOCYTES % (MANUAL) 2 %; NEUTROPHILS % (MANUAL) 85 %
[2021-10-16] MEDS: DOXYCYCLINE INJECTION 100 MG in NS (IVPB) 100 ML IV SCH ×2 (09:14→20:31)
[2021-10-16] MEDS: APIXABAN 5 MG (ELIQUIS) TABLET PO SCH ×3 (09:14→21:00)
[2021-10-16] MEDS: CEFEPIME INJECTION 1,000 MG in NS (IVPB) 50 ML IV SCH ×2 (09:14→20:31)
--- NOTE | 2021-10-16 11:17 | History & Physical-Hospitalist ---
History of Present Illness HPI/Chief Complaint CC: Wheezing HPI: This is a 61yoWF with a hx of asthma and chronic bronchitis who presented to the hospital to room 420 as a direct admission from my clinic. She was having severe weakness and wheezing. Pt was placed on broad spectrum antibiotics. CXR obtained, septic workup revealed no evidence of sepsis but will need aggressive IV steroids and restarting home medication. Source: patient, family, RN/MD, old records Exam Limitations: no limitations Date Seen 10/16/21 Time Seen by a Provider: 11:00 Attending Physician Shayla Jimenez DO PCP Shayla Jimenez DO Referring Physician Date of Admission Oct 15, 2021 at 17:18 Home Medications & Allergies Home Medications Reviewed patient Home Medication Reconciliation performed by pharmacy medication reconciliations audiovisual lead technician and/or nursing. Patients Allergies have been reviewed. Allergies Allergies Coded Allergies adhesive tape (Verified Allergy, Intermediate, 10/15/21) BLISTERS AND RAW SKIN almond (Verified Allergy, Intermediate, Abdominal Pain, 10/15/21) Pt states having pain when she eat them. amlodipine (Verified Allergy, Unknown, 10/15/21) erythromycin base (Verified Allergy, Unknown, 10/15/21) Uncoded Allergies ALMONDS ( Adverse Reaction, Mild, 02/22/20) SHE HAS PAIN ALL OVER WHEN SHE EATS THEM Past Bupbyso-Tjliwa-Icyxqg Hx Patient Social History Marrital Status: Employed/Student: unemployed Tobacco Use?: No Smoking Status: Never a Smoker Substance use?: No Alcohol Use?: No Pt feels they are or have been: No Immunizations Up To Date Date of Influenza Vaccine: Aug 21, 2021 First/Initial COVID19 Vaccinat: january Second COVID19 Vaccination Yousuf: february Tetanus Booster (TDap): More Than 5 Years Hepatitis A: No Hepatitis B: No PED Vaccines UTD: Yes Date of Pneumonia Vaccine: Jan 04, 2018 Seasonal Allergies Seasonal Allergies: Yes Current Status Advance Directives: No Communicates: Verbally Primary Language: Guamanian Preferred Spoken Language: Guamanian Is interpretation needed?: No Past Medical History Surgeries: Abdominal, Orthopedic Asthma, Pulmonary Embolism, Sleep Apnea Currently Using CPAP: Yes (WITH O2) Currently Using BIPAP: No Chronic Edema/Swelling, Deep Vein Thrombosis, High Cholesterol, Hypertension Neuropathy 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 Sexually Transmitted Disease: No Bladder Infection Arthritis, Rheumatoid Arthritis, Chronic Back Pain Hypothyroidsim, Diabetes, Non-Insulin dep Double Vision Loss of Vision: Denies Hearing Impairment: Denies Anxiety, Depression Blood Disorders: No Adverse Reaction/Blood Tranf: No Family Medical History Alcoholism G8 BROTHER G8 SISTER Alzheimer's disease 19 MOTHER Arthritis 19 FATHER Asthma G8 SISTER Cardiovascular disease 19 FATHER Cataracts 19 FATHER Coronary thrombosis 19 FATHER Deafness or hearing loss SON Diabetes mellitus 19 FATHER G8 SISTER G8 SISTER Drug abuse G8 SISTER Hypertension 19 FATHER G8 SISTER G8 SISTER Kidney disease 19 FATHER Respiratory disorder G8 SISTER G8 SISTER Seizure disorder SON Severe allergy SON Heart Disease, Diabetes, Hypertension Review of Systems Constitutional: see HPI EENTM: no symptoms reported Respiratory: cough, dyspnea on exertion, short of breath Cardiovascular: no symptoms reported Gastrointestinal: no symptoms reported Genitourinary: no symptoms reported Musculoskeletal: no symptoms reported Skin: no symptoms reported Psychiatric/Neurological: No Symptoms Reported All Other Systems Reviewed Negative Unless Noted: Yes Physical Exam Physical Exam Vital Signs Vital Signs - First Documented 10/15/21 10/15/21 17:35 18:00 Temp 36.2 Pulse 101 Resp 24 B/P (MAP) 137/60 (85) Pulse Ox 96 O2 Delivery Nasal Cannula O2 Flow Rate 2.00 Capillary Refill : Height, Weight, BMI Height: 5'6.00" Weight: 297lbs. 0.0oz. 134.885349nz; 62.15 BMI Method:Stated General Appearance: Anxious, Chronically ill, Mild Distress, Obese Eyes: Right Eye Normal Inspection, Right Eye PERRL HEENT: PERRL/EOMI, Normal ENT Inspection, Pharynx Normal, Moist Mucous Membranes Neck: Full Range of Motion, Normal Inspection, Non Tender Respiratory: Chest Non Tender, No Respiratory Distress, Accessory Muscle Use, Wheezing Cardiovascular: Regular Rate, Rhythm, No Edema, No Gallop, No JVD, No Murmur, Normal Peripheral Pulses Gastrointestinal: Normal Bowel Sounds, No Organomegaly, No Pulsatile Mass, Non Tender, Soft Back: Normal Inspection, No CVA Tenderness, No Vertebral Tenderness Extremity: Normal Capillary Refill, Normal Inspection, Normal Range of Motion, Non Tender, No Calf Tenderness, No Pedal Edema Neurologic/Psychiatric: Alert, Oriented x3, No Motor/Sensory Deficits, Normal Mood/Affect Skin: Normal Color, Warm/Dry Lymphatic: No Adenopathy Results Results/Procedures Labs Laboratory Tests 10/15/21 17:55 10/16/21 06:27 Patient resulted labs reviewed. Assessment/Plan Admission Diagnosis Assessment: Acute bacterial bronchitis Asthma exacerbation s/p COVID-19 PNA critical illness myopathy 09/2020 h/o PE Myasthenia gravis Rheumatoid arthritis HTN HLP Asthma Obesity RALPH on CPAP Allergies DM Immunosuppressed Plan: Monitor closely IV steroids IV abx Home meds Admission Status: Inpatient Order (span 2 midnights) Reason for Inpatient Admission: Severe wheezing Diagnosis/Problems Diagnosis/Problems (1) acute exacerbation of asthma Status: Acute SHAYLA JIMENEZ DO Oct 16, 2021 11:16
[2021-10-16] MEDS ORDERED: PRED5TAB PO (11:25)
[2021-10-16] MEDS ORDERED: TIOT18CA2 INH (11:25)
[2021-10-16] MEDS ORDERED: CHOL10007 PO (11:25)
[2021-10-16] MEDS ORDERED: GLYB1.253 PO (11:25)
[2021-10-16] MEDS ORDERED: FLUT16SP22 NSEACH (11:25)
[2021-10-16] MEDS ORDERED: ALPR0.5T7 PO (11:25)
[2021-10-16] MEDS ORDERED: AZAT50TA16 PO (11:25)
[2021-10-16] MEDS ORDERED: CALC600T80 PO (11:35)
[2021-10-16] MEDS ORDERED: ALPRAZolam 0.5 MG (XANAX) TAB PO PRN (14:30)
[2021-10-16] MEDS ORDERED: RT-ALBUTEROL SULF 2.5 MG/3 ML PRE-MIX VIAL INH PRN (15:45)
[2021-10-16] MEDS: MELATONIN 10 MG TABLET PO SCH (20:19)
[2021-10-16] MEDS: cloNIDine 0.1 MG (CATAPRES) TAB PO SCH (20:20)
[2021-10-16] MEDS: KCL 20 MEQ TAB (K-DUR) PO SCH (20:20)
[2021-10-16] MEDS: CALCIUM CARBONATE 600 MG (CALCARB) TAB PO SCH (20:30)
[2021-10-17] MEDS: RT-ALBUTEROL SULF 2.5 MG/3 ML PRE-MIX VIAL INH SCH ×6 (02:21→20:56)
[2021-10-17 04:52] VITALS: BP 137/63
[2021-10-17 06:17] LABS: BASOPHILS % (AUTO) 0 % (0-10); EOSINOPHILS % (AUTO) 0 % (0-10); HEMATOCRIT 37 % (35-52); HEMOGLOBIN 11.3 g/dL (11.5-16.0); LYMPHOCYTES # (AUTO) 0.7 10^3/uL (1.0-4.0); LYMPHOCYTES % (AUTO) 5 % (12-44); MEAN CORPUSCULAR HEMOGLOBIN 30 pg (25-34); MEAN CORPUSCULAR HGB CONC 31 g/dL (32-36); MEAN CORPUSCULAR VOLUME 98 fL (80-99); MEAN PLATELET VOLUME 9.9 fL (9.0-12.2); MONOCYTES # (AUTO) 0.4 10^3/uL (0.0-1.0); MONOCYTES % (AUTO) 2 % (0-12); NEUTROPHILS # (AUTO) 13.8 10^3/uL (1.8-7.8); NEUTROPHILS % (AUTO) 92 % (42-75); PLATELET COUNT 359 10^3/uL (130-400); WHITE BLOOD COUNT 15.1 10^3/uL (4.3-11.0)
[2021-10-17] MEDS: methylPREDNISolone 40 MG/ML (Solu-MEDROL) VIAL IV SCH ×4 (06:28→23:13)
[2021-10-17] MEDS: inSUlin ASPART (NovoLOG) 1 UNIT/0.01 ML (CHARGE PER UNIT) SC SCH ×4 (06:28→20:52)
[2021-10-17 06:35] LABS: ALBUMIN 3.8 GM/DL (3.2-4.5); POTASSIUM 3.8 MMOL/L (3.6-5.0)
[2021-10-17 06:36] LABS: CALCIUM 9.7 MG/DL (8.5-10.1)
[2021-10-17 06:37] LABS: TOTAL PROTEIN 6.6 GM/DL (6.4-8.2)
[2021-10-17 06:39] LABS: BILIRUBIN,TOTAL 0.3 MG/DL (0.1-1.0)
[2021-10-17 06:41] LABS: CREATININE SERUM 1.08 MG/DL (0.60-1.30)
[2021-10-17 07:33] VITALS: BP 129/58
[2021-10-17] MEDS: UMECLIDINIUM BROMIDE (INCRUSE ELLIPTA) 7'S IH SCH (07:34)
[2021-10-17] MEDS: glyBURIDE 2.5 MG (MICRONASE) TAB PO SCH (08:24)
[2021-10-17] MEDS: eZETimibe 10 MG (ZETIA) TABLET PO SCH (08:24)
[2021-10-17] MEDS: PANTOPRAZOLE 40 MG (PROTONIX) TAB PO SCH (08:24)
[2021-10-17] MEDS: TRIAMTERENE/HCTZ 75-50 (MAXZIDE,DYAZIDE) TABLET PO SCH (08:24)
[2021-10-17] MEDS: cloNIDine 0.1 MG (CATAPRES) TAB PO SCH ×2 (08:24→19:27)
[2021-10-17] MEDS: VENlafaxine XR 75 MG (EFFEXOR XR) CAP PO SCH (08:24)
[2021-10-17] MEDS: KCL 20 MEQ TAB (K-DUR) PO SCH ×2 (08:25→19:27)
[2021-10-17] MEDS: MONTELUKAST 10 MG (SINGULAIR) TAB PO SCH (08:25)
[2021-10-17] MEDS: VITAMIN D3 25 MCG (1,000 UNITS) TABLET PO SCH (08:25)
[2021-10-17] MEDS: APIXABAN 5 MG (ELIQUIS) TABLET PO SCH ×3 (08:25→19:28)
[2021-10-17] MEDS: FLUTICASONE NASAL SPRAY (FLONASE) 16 GM BTL NS SCH (08:25)
[2021-10-17] MEDS: LOSARTAN 50 MG (COZAAR) TAB PO SCH (08:25)
[2021-10-17] MEDS: LEVOTHYROXINE 50 MCG (LEVOTHROID) TAB PO SCH (08:26)
[2021-10-17] MEDS: CEFEPIME INJECTION 1,000 MG in NS (IVPB) 50 ML IV SCH ×3 (08:34→22:00)
[2021-10-17] MEDS: DOXYCYCLINE INJECTION 100 MG in NS (IVPB) 100 ML IV SCH ×2 (08:34→20:52)
--- NOTE | 2021-10-17 09:11 | Progress Note - Hospitalist ---
Subjective HPI/CC On Admission Date Seen by Provider: Oct 17, 2021 Time Seen by Provider: 11:00 CC: Wheezing HPI: This is a 61yoWF with a hx of asthma and chronic bronchitis who presented to the hospital to room 420 as a direct admission from my clinic. She was having severe weakness and wheezing. Pt was placed on broad spectrum antibiotics. CXR obtained, septic workup revealed no evidence of sepsis but will need aggressive IV steroids and restarting home medication. Subjective/Events-last exam Patient doing well Needs a bowel movement so ordered lactulose and other laxatives White blood cell count 15 Lungs much improved with subtle wheezing Proposed discharge for tomorrow Review of Systems General: Fatigue, Malaise Pulmonary: Dyspnea Focused Exam Lactate Level 10/15/21 18:17: Lactic Acid Level 1.49 Objective Exam Vital Signs Vital Signs Date Time Temp Pulse Resp B/P (MAP) Pulse Ox O2 Delivery O2 Flow Rate FiO2 10/18/21 03:46 36.2 65 16 144/70 (94) 97 Nasal Cannula 2.00 Capillary Refill : General Appearance: No Apparent Distress, WD/WN, Chronically ill Respiratory: Lungs Clear, Normal Breath Sounds Cardiovascular: Regular Rate, Rhythm Neurologic/Psychiatric: Alert, Oriented x3 Results/Procedures Lab Patient resulted labs reviewed. Assessment/Plan Assessment and Plan Assess & Plan/Chief Complaint Assessment: Acute bacterial bronchitis Asthma exacerbation s/p COVID-19 PNA critical illness myopathy 09/2020 h/o PE Myasthenia gravis Rheumatoid arthritis HTN HLP Asthma Obesity RALPH on CPAP Allergies DM Immunosuppressed Plan: Monitor closely IV steroids IV abx Home meds 10/17/2021: Continue IV steroids Supportive care IV antibiotics for bacterial bronchitis Diagnosis/Problems Diagnosis/Problems (1) acute exacerbation of asthma Status: FABIENNE Winkler DO Oct 17, 2021 09:11
[2021-10-17] MEDS ORDERED: RT--FLUTICASONE/SALMETEROL 232-14 (AIRDUO RespiCLICK) IH SCH (09:13)
[2021-10-17] MEDS: [UNRECOGNIZED DRUG - REMARK] PO SCH (09:26)
[2021-10-17 12:00] VITALS: BP 129/60
[2021-10-17] MEDS: DOCUSATE SODIUM 100 MG (COLACE) CAP PO SCH ×2 (12:47→19:28)
[2021-10-17] MEDS: polyethylene glycoL POWDER 17 GM (MIRALAX) PACK PO SCH ×2 (12:47→19:28)
[2021-10-17] MEDS: SENNA W/DOCUSATE (SENOKOT S) TABLET PO SCH ×2 (12:48→19:28)
[2021-10-17] MEDS: LACTULOSE SYRUP 10GM/15ML (ENULOSE) 30ML UDC PO SCH ×2 (12:48→19:28)
[2021-10-17 15:30] VITALS: BP 107/68
[2021-10-17] MEDS ORDERED: guaiFENesin/DM (ROBITUSSIN DM) 10 ML UDC PO PRN (16:30)
[2021-10-17] MEDS: MELATONIN 10 MG TABLET PO SCH (19:27)
[2021-10-17] MEDS: CALCIUM CARBONATE 600 MG (CALCARB) TAB PO SCH (19:29)
[2021-10-17 19:44] VITALS: BP 146/69
[2021-10-17 23:24] VITALS: BP 135/74
[2021-10-18] MEDS: RT-ALBUTEROL SULF 2.5 MG/3 ML PRE-MIX VIAL INH SCH ×3 (02:17→10:52)
[2021-10-18 03:46] VITALS: BP 144/70
[2021-10-18] MEDS: CEFEPIME INJECTION 1,000 MG in NS (IVPB) 50 ML IV SCH ×2 (03:46→08:56)
[2021-10-18] MEDS: methylPREDNISolone 40 MG/ML (Solu-MEDROL) VIAL IV SCH ×3 (06:17→12:28)
[2021-10-18] MEDS: inSUlin ASPART (NovoLOG) 1 UNIT/0.01 ML (CHARGE PER UNIT) SC SCH ×2 (06:26→12:22)
[2021-10-18] MEDS: UMECLIDINIUM BROMIDE (INCRUSE ELLIPTA) 7'S IH SCH (06:31)
[2021-10-18 07:12] LABS: BASOPHILS % (AUTO) 0 % (0-10); EOSINOPHILS % (AUTO) 0 % (0-10); HEMATOCRIT 35 % (35-52); HEMOGLOBIN 10.8 g/dL (11.5-16.0); LYMPHOCYTES # (AUTO) 0.7 10^3/uL (1.0-4.0); LYMPHOCYTES % (AUTO) 5 % (12-44); MEAN CORPUSCULAR HEMOGLOBIN 30 pg (25-34); MEAN CORPUSCULAR HGB CONC 31 g/dL (32-36); MEAN CORPUSCULAR VOLUME 94 fL (80-99); MEAN PLATELET VOLUME 10.2 fL (9.0-12.2); MONOCYTES # (AUTO) 0.3 10^3/uL (0.0-1.0); MONOCYTES % (AUTO) 2 % (0-12); NEUTROPHILS # (AUTO) 12.8 10^3/uL (1.8-7.8); NEUTROPHILS % (AUTO) 92 % (42-75); PLATELET COUNT 312 10^3/uL (130-400)
[2021-10-18 07:34] LABS: ALBUMIN 3.5 GM/DL (3.2-4.5); BILIRUBIN,TOTAL 0.3 MG/DL (0.1-1.0); CALCIUM 9.5 MG/DL (8.5-10.1); CREATININE SERUM 0.89 MG/DL (0.60-1.30); POTASSIUM 4.5 MMOL/L (3.6-5.0); TOTAL PROTEIN 6.2 GM/DL (6.4-8.2)
[2021-10-18] MEDS ORDERED: FLUTICASONE/VILANTEROL 200 MCG 14'S (BREO) IH SCH (08:00)
[2021-10-18 08:08] VITALS: BP 146/77
[2021-10-18] MEDS: MONTELUKAST 10 MG (SINGULAIR) TAB PO SCH (08:48)
[2021-10-18] MEDS: eZETimibe 10 MG (ZETIA) TABLET PO SCH (08:48)
[2021-10-18] MEDS: KCL 20 MEQ TAB (K-DUR) PO SCH (08:48)
[2021-10-18] MEDS: DOCUSATE SODIUM 100 MG (COLACE) CAP PO SCH (08:48)
[2021-10-18] MEDS: glyBURIDE 2.5 MG (MICRONASE) TAB PO SCH (08:48)
[2021-10-18] MEDS: VITAMIN D3 25 MCG (1,000 UNITS) TABLET PO SCH (08:48)
[2021-10-18] MEDS: PANTOPRAZOLE 40 MG (PROTONIX) TAB PO SCH (08:48)
[2021-10-18] MEDS: LOSARTAN 50 MG (COZAAR) TAB PO SCH (08:48)
[2021-10-18] MEDS: cloNIDine 0.1 MG (CATAPRES) TAB PO SCH (08:48)
[2021-10-18] MEDS: APIXABAN 5 MG (ELIQUIS) TABLET PO SCH (08:48)
[2021-10-18] MEDS: LEVOTHYROXINE 50 MCG (LEVOTHROID) TAB PO SCH (08:48)
[2021-10-18] MEDS: LACTULOSE SYRUP 10GM/15ML (ENULOSE) 30ML UDC PO SCH (08:49)
[2021-10-18] MEDS: TRIAMTERENE/HCTZ 75-50 (MAXZIDE,DYAZIDE) TABLET PO SCH (08:50)
[2021-10-18] MEDS: DOXYCYCLINE INJECTION 100 MG in NS (IVPB) 100 ML IV SCH (09:30)
[2021-10-18] MEDS: polyethylene glycoL POWDER 17 GM (MIRALAX) PACK PO SCH (09:42)
[2021-10-18] MEDS: FLUTICASONE NASAL SPRAY (FLONASE) 16 GM BTL NS SCH (09:42)
[2021-10-18] MEDS: SENNA W/DOCUSATE (SENOKOT S) TABLET PO SCH (09:42)
[2021-10-18] MEDS: VENlafaxine XR 75 MG (EFFEXOR XR) CAP PO SCH (09:42)
[2021-10-18 11:40] VITALS: BP 170/70
[2021-10-18] MEDS ORDERED: PRED10TA22 PO (12:17)
[2021-10-18] MEDS ORDERED: CEFD300C3 PO (12:17)
--- NOTE | 2021-10-18 12:18 | Discharge Summary ---
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 amlodipine (Verified Allergy, Unknown, 10/15/21) erythromycin base (Verified Allergy, Unknown, 10/15/21) Uncoded Allergies: ALMONDS (Adverse Reaction, Mild, 02/22/20) SHE HAS PAIN ALL OVER WHEN SHE EATS THEM Vitals & I&Os Vital Signs Date Time Temp Pulse Resp B/P (MAP) Pulse Ox O2 Delivery O2 Flow Rate FiO2 10/18/21 13:50 36.0 78 20 170/70 97 Nasal Cannula 2.00 General Appearance: Alert, Oriented X3, Cooperative Respiratory: Clear to Auscultation Cardiovascular: Regular Rate Neuro: Normal Gait, Normal Speech, Strength at 5/5 X4 Ext Hospital Course Was the Problem List Reviewed?: Yes Hospital course: Patient had a standard hospital course after she was admitted with severe wheezing and impending respiratory insufficiency with acute exacerbation of asthma. Patient had taken nebulizers and everything she can think of at home which was unsuccessful. Patient was placed on aggressive IV steroid regimen chest x-ray revealed no pneumonia but cefepime antibiotic was initiated along with doxycycline. Overall she recovered well wheezing was resolved she met criteria for discharge. Labs (last 24 hrs) Laboratory Tests 10/15/21 17:55: White Blood Count 8.6, Red Blood Count 3.80, Hemoglobin 11.4L, Hematocrit 37, Mean Corpuscular Volume 97, Mean Corpuscular Hemoglobin 30, Mean Corpuscular Hemoglobin Concent 31L, Red Cell Distribution Width 14.0, Platelet Count 327, Mean Platelet Volume 9.5, Immature Granulocyte % (Auto) 1, Neutrophils (%) (Auto) 78H, Lymphocytes (%) (Auto) 14, Monocytes (%) (Auto) 6, Eosinophils (%) (Auto) 1, Basophils (%) (Auto) 1, Neutrophils # (Auto) 6.7, Lymphocytes # (Auto) 1.2, Monocytes # (Auto) 0.5, Eosinophils # (Auto) 0.1, Basophils # (Auto) 0.1, Immature Granulocyte # (Auto) 0.1, Sodium Level 141, Potassium Level 4.6, Chloride Level 104, Carbon Dioxide Level 24, Anion Gap 13, Blood Urea Nitrogen 24H, Creatinine 0.89, Estimat Glomerular Filtration Rate 64, BUN/Creatinine Ratio 27, Glucose Level 151H, Calcium Level 9.7, Corrected Calcium 9.8, Total Bilirubin 0.4, Aspartate Amino Transf (AST/SGOT) 14, Alanine Aminotransferase (ALT/SGPT) 20, Alkaline Phosphatase 85, Total Protein 6.9, Albumin 3.9 10/15/21 17:57: Blood Gas Puncture Site LEFT RADIAL, Blood Gas Patient Temperature 36.2, Arterial Blood pH 7.36L, Arterial Blood Partial Pressure CO2 48H, Arterial Blood Partial Pressure O2 41L, Arterial Blood HCO3 27, Arterial Blood Total CO2 28.4, Arterial Blood Oxygen Saturation 76L, Arterial Blood Base Excess 1.9, Carlos Test POSITIVE, Blood Gas Ventilator Setting NO, Blood Gas Inspired Oxygen 2 L 10/15/21 18:10: Influenza Type A Antigen NEGATIVE, Influenza Type B Antigen NEGATIVE 10/15/21 18:17: Lactic Acid Level 1.49 10/15/21 21:23: Glucometer 261H 10/16/21 06:12: Glucometer 227H 10/16/21 06:27: White Blood Count 8.7, Red Blood Count 3.71L, Hemoglobin 11.1L, Hematocrit 36, Mean Corpuscular Volume 96, Mean Corpuscular Hemoglobin 30, Mean Corpuscular Hemoglobin Concent 31L, Red Cell Distribution Width 14.0, Platelet Count 296, Mean Platelet Volume 9.5, Immature Granulocyte % (Auto) 1, Neutrophils (%) (Auto) 92H, Lymphocytes (%) (Auto) 6L, Monocytes (%) (Auto) 1, Eosinophils (%) (Auto) 0, Basophils (%) (Auto) 0, Neutrophils # (Auto) 8.0H, Lymphocytes # (Auto) 0.5L, Monocytes # (Auto) 0.0, Eosinophils # (Auto) 0.0, Basophils # (Auto) 0.0, Immature Granulocyte # (Auto) 0.1, Neutrophils % (Manual) 85, Lymphocytes % (Manual) 13, Monocytes % (Manual) 2, Microcytosis SLIGHT, Helmet Cells SLIGHT, Sodium Level 139, Potassium Level 4.5, Chloride Level 103, Carbon Dioxide Level 24, Anion Gap 12, Blood Urea Nitrogen 24H, Creatinine 0.92, Estimat Glomerular Filtration Rate 62, BUN/Creatinine Ratio 26, Glucose Level 236H, Calcium Level 9.1, Corrected Calcium 9.3, Total Bilirubin 0.4, Aspartate Amino Transf (AST/SGOT) 12, Alanine Aminotransferase (ALT/SGPT) 19, Alkaline Phosphatase 79, Total Protein 6.6, Albumin 3.8 10/16/21 15:35: Glucometer 269H 10/16/21 20:11: Glucometer 298H 10/17/21 05:38: Glucometer 293H 10/17/21 05:50: White Blood Count 15.1H, Red Blood Count 3.76L, Hemoglobin 11.3L, Hematocrit 37, Mean Corpuscular Volume 98, Mean Corpuscular Hemoglobin 30, Mean Corpuscular Hemoglobin Concent 31L, Red Cell Distribution Width 14.7H, Platelet Count 359, Mean Platelet Volume 9.9, Immature Granulocyte % (Auto) 1, Neutrophils (%) (Auto) 92H, Lymphocytes (%) (Auto) 5L, Monocytes (%) (Auto) 2, Eosinophils (%) (Auto) 0, Basophils (%) (Auto) 0, Neutrophils # (Auto) 13.8H, Lymphocytes # (Auto) 0.7L, Monocytes # (Auto) 0.4, Eosinophils # (Auto) 0.0, Basophils # (Auto) 0.0, Immature Granulocyte # (Auto) 0.1, Sodium Level 140, Potassium Level 3.8, Chloride Level 103, Carbon Dioxide Level 23, Anion Gap 14, Blood Urea Nitrogen 26H, Creatinine 1.08, Estimat Glomerular Filtration Rate 51, BUN/Creatinine Ratio 24, Glucose Level 281H, Calcium Level 9.7, Corrected Calcium 9.9, Total Bilirubin 0.3, Aspartate Amino Transf (AST/SGOT) 8, Alanine Aminotransferase (ALT/SGPT) 19, Alkaline Phosphatase 79, Total Protein 6.6, Albumin 3.8 10/17/21 15:48: Glucometer 250H 10/17/21 19:03: Glucometer 345H 10/17/21 20:29: Glucometer 361H 10/17/21 22:39: Glucometer 294H 10/18/21 06:16: Glucometer 218H 10/18/21 06:26: White Blood Count 14.0H, Red Blood Count 3.66L, Hemoglobin 10.8L, Hematocrit 35, Mean Corpuscular Volume 94, Mean Corpuscular Hemoglobin 30, Mean Corpuscular Hemoglobin Concent 31L, Red Cell Distribution Width 15.2H, Platelet Count 312, Mean Platelet Volume 10.2, Immature Granulocyte % (Auto) 1, Neutrophils (%) (Auto) 92H, Lymphocytes (%) (Auto) 5L, Monocytes (%) (Auto) 2, Eosinophils (%) (Auto) 0, Basophils (%) (Auto) 0, Neutrophils # (Auto) 12.8H, Lymphocytes # (Auto) 0.7L, Monocytes # (Auto) 0.3, Eosinophils # (Auto) 0.0, Basophils # (Auto) 0.0, Immature Granulocyte # (Auto) 0.1, Sodium Level 139, Potassium Level 4.5, Chloride Level 105, Carbon Dioxide Level 23, Anion Gap 11, Blood Urea Nitrogen 29H, Creatinine 0.89, Estimat Glomerular Filtration Rate 64, BUN/Creatinine Ratio 33, Glucose Level 216H, Calcium Level 9.5, Corrected Calcium 9.9, Total Bilirubin 0.3, Aspartate Amino Transf (AST/SGOT) 11, Alanine Aminotransferase (ALT/SGPT) 17, Alkaline Phosphatase 72, Total Protein 6.2L, Albumin 3.5 10/18/21 11:38: Glucometer 255H Microbiology 10/15/21 Blood Culture - Preliminary, Resulted No growth 10/15/21 MRSA Screen - Final, Complete MRSA not isolated Pending Labs Microbiology Date/Time Source Procedure Growth Status 10/15/21 18:17 Peripheral Rt Ac Blood Culture - Preliminary No growth Resulted 10/15/21 17:55 Peripheral Rt Ac Blood Culture - Preliminary No growth Resulted 10/15/21 17:46 Nasal MRSA Screen - Final MRSA not isolated Complete Laboratory Tests 10/15/21 17:55: White Blood Count 8.6, Red Blood Count 3.80, Hemoglobin 11.4, Hematocrit 37, Mean Corpuscular Volume 97, Mean Corpuscular Hemoglobin 30, Mean Corpuscular Hemoglobin Concent 31, Red Cell Distribution Width 14.0, Platelet Count 327, Mean Platelet Volume 9.5, Immature Granulocyte % (Auto) 1, Neutrophils (%) (Auto) 78, Lymphocytes (%) (Auto) 14, Monocytes (%) (Auto) 6, Eosinophils (%) (Auto) 1, Basophils (%) (Auto) 1, Neutrophils # (Auto) 6.7, Lymphocytes # (Auto) 1.2, Monocytes # (Auto) 0.5, Eosinophils # (Auto) 0.1, Basophils # (Auto) 0.1, Immature Granulocyte # (Auto) 0.1, Sodium Level 141, Potassium Level 4.6, Chloride Level 104, Carbon Dioxide Level 24, Anion Gap 13, Blood Urea Nitrogen 24, Creatinine 0.89, Estimat Glomerular Filtration Rate 64, BUN/Creatinine Ratio 27, Glucose Level 151, Calcium Level 9.7, Corrected Calcium 9.8, Total Bilirubin 0.4, Aspartate Amino Transf (AST/SGOT) 14, Alanine Aminotransferase (ALT/SGPT) 20, Alkaline Phosphatase 85, Total Protein 6.9, Albumin 3.9 10/15/21 17:57: Blood Gas Puncture Site LEFT RADIAL, Blood Gas Patient Temperature 36.2, Arterial Blood pH 7.36, Arterial Blood Partial Pressure CO2 48, Arterial Blood Partial Pressure O2 41, Arterial Blood HCO3 27, Arterial Blood Total CO2 28.4, Arterial Blood Oxygen Saturation 76, Arterial Blood Base Excess 1.9, Carlos Test POSITIVE, Blood Gas Ventilator Setting NO, Blood Gas Inspired Oxygen 2 L 10/15/21 18:10: Influenza Type A Antigen NEGATIVE, Influenza Type B Antigen NEGATIVE 10/15/21 18:17: Lactic Acid Level 1.49 10/15/21 21:23: Glucometer 261 10/16/21 06:12: Glucometer 227 10/16/21 06:27: White Blood Count 8.7, Red Blood Count 3.71, Hemoglobin 11.1, Hematocrit 36, Mean Corpuscular Volume 96, Mean Corpuscular Hemoglobin 30, Mean Corpuscular Hemoglobin Concent 31, Red Cell Distribution Width 14.0, Platelet Count 296, Mean Platelet Volume 9.5, Immature Granulocyte % (Auto) 1, Neutrophils (%) (Auto) 92, Lymphocytes (%) (Auto) 6, Monocytes (%) (Auto) 1, Eosinophils (%) (Auto) 0, Basophils (%) (Auto) 0, Neutrophils # (Auto) 8.0, Lymphocytes # (Auto) 0.5, Monocytes # (Auto) 0.0, Eosinophils # (Auto) 0.0, Basophils # (Auto) 0.0, Immature Granulocyte # (Auto) 0.1, Neutrophils % (Manual) 85, Lymphocytes % (Manual) 13, Monocytes % (Manual) 2, Microcytosis SLIGHT, Helmet Cells SLIGHT, Sodium Level 139, Potassium Level 4.5, Chloride Level 103, Carbon Dioxide Level 24, Anion Gap 12, Blood Urea Nitrogen 24, Creatinine 0.92, Estimat Glomerular Filtration Rate 62, BUN/Creatinine Ratio 26, Glucose Level 236, Calcium Level 9.1, Corrected Calcium 9.3, Total Bilirubin 0.4, Aspartate Amino Transf (AST/SGOT) 12, Alanine Aminotransferase (ALT/SGPT) 19, Alkaline Phosphatase 79, Total Protein 6.6, Albumin 3.8 10/16/21 15:35: Glucometer 269 10/16/21 20:11: Glucometer 298 10/17/21 05:38: Glucometer 293 10/17/21 05:50: White Blood Count 15.1, Red Blood Count 3.76, Hemoglobin 11.3, Hematocrit 37, Mean Corpuscular Volume 98, Mean Corpuscular Hemoglobin 30, Mean Corpuscular Hemoglobin Concent 31, Red Cell Distribution Width 14.7, Platelet Count 359, Mean Platelet Volume 9.9, Immature Granulocyte % (Auto) 1, Neutrophils (%) (Auto) 92, Lymphocytes (%) (Auto) 5, Monocytes (%) (Auto) 2, Eosinophils (%) (Auto) 0, Basophils (%) (Auto) 0, Neutrophils # (Auto) 13.8, Lymphocytes # (Auto) 0.7, Monocytes # (Auto) 0.4, Eosinophils # (Auto) 0.0, Basophils # (Auto) 0.0, Immature Granulocyte # (Auto) 0.1, Sodium Level 140, Potassium Level 3.8, Chloride Level 103, Carbon Dioxide Level 23, Anion Gap 14, Blood Urea Nitrogen 26, Creatinine 1.08, Estimat Glomerular Filtration Rate 51, BUN/Creatinine Ratio 24, Glucose Level 281, Calcium Level 9.7, Corrected Calcium 9.9, Total Bilirubin 0.3, Aspartate Amino Transf (AST/SGOT) 8, Alanine Aminotransferase (ALT/SGPT) 19, Alkaline Phosphatase 79, Total Protein 6.6, Albumin 3.8 10/17/21 15:48: Glucometer 250 10/17/21 19:03: Glucometer 345 10/17/21 20:29: Glucometer 361 10/17/21 22:39: Glucometer 294 10/18/21 06:16: Glucometer 218 10/18/21 06:26: White Blood Count 14.0, Red Blood Count 3.66, Hemoglobin 10.8, Hematocrit 35, Mean Corpuscular Volume 94, Mean Corpuscular Hemoglobin 30, Mean Corpuscular Hemoglobin Concent 31, Red Cell Distribution Width 15.2, Platelet Count 312, Mean Platelet Volume 10.2, Immature Granulocyte % (Auto) 1, Neutrophils (%) (Auto) 92, Lymphocytes (%) (Auto) 5, Monocytes (%) (Auto) 2, Eosinophils (%) (Auto) 0, Basophils (%) (Auto) 0, Neutrophils # (Auto) 12.8, Lymphocytes # (Auto) 0.7, Monocytes # (Auto) 0.3, Eosinophils # (Auto) 0.0, Basophils # (Auto) 0.0, Immature Granulocyte # (Auto) 0.1, Sodium Level 139, Potassium Level 4.5, Chloride Level 105, Carbon Dioxide Level 23, Anion Gap 11, Blood Urea Nitrogen 29, Creatinine 0.89, Estimat Glomerular Filtration Rate 64, BUN/Creatinine Ratio 33, Glucose Level 216, Calcium Level 9.5, Corrected Calcium 9.9, Total Bilirubin 0.3, Aspartate Amino Transf (AST/SGOT) 11, Alanine Aminotransferase (ALT/SGPT) 17, Alkaline Phosphatase 72, Total Protein 6.2, Albumin 3.5 10/18/21 11:38: Glucometer 255 Discharge Home Medications: Active Scripts Active Prednisone 10 Mg Tab.ds.pk 10 Mg PO DAILY Take 6 tabs(60mg)daily,decrease by 1 tab(10MG)daily then resume 7.5mg supply at home daily Cefdinir 300 Mg Capsule 300 Mg PO BID Reported Calcium Carbonate 600 Mg Tablet 1,200 Mg PO HS Vitamin D3 (Cholecalciferol (Vitamin D3)) 25 Mcg Capsule 25 Mcg PO DAILY Fluticasone Propionate 16 Gm Clinton.susp 1 Clinton NSEACH DAILY Alprazolam 0.5 Mg Tablet 0.5 Mg PO Q8H PRN Glyburide 1.25 Mg Tablet 2.5 Mg PO DAILY TAKES 2 (1.25MG) TABS Imuran (Azathioprine) 50 Mg Tablet 100 Mg PO BID TAKES 2 (50MG) TABS Spiriva (Tiotropium Coalgate) 1 Inh Aerp 1 Puff INH DAILY Venlafaxine HCl ER (Venlafaxine HCl) 75 Mg Cap.er.24h 75 Mg PO DAILY Ezetimibe 10 Mg Tablet 10 Mg PO DAILY Breo Ellipta 200-25 Mcg INH (Fluticasone/Vilanterol) 1 Each Blst.w.dev 1 Each IH DAILY Melatonin 10 Mg Tablet 20 Mg PO HS TAKES 2 (10MG) TABS Eliquis (Apixaban) 5 Mg Tablet 5 Mg PO BID Potassium Chloride 20 Meq Tablet.er 20 Meq PO BID Furosemide 40 Mg Tablet 40 Mg PO DAILY PRN All Day Allergy (Cetirizine HCl) 10 Mg Tablet 20 Mg PO DAILY TAKES 2 (10MG) TABS Losartan Potassium 50 Mg Tablet 50 Mg PO DAILY Citalopram HBr (Citalopram Hydrobromide) 20 Mg Tablet 20 Mg PO DAILY Pantoprazole Sodium 40 Mg Tablet.dr 40 Mg PO DAILY Atorvastatin Calcium 20 Mg Tablet 20 Mg PO DAILY Triamterene-Hctz 37.5-25 mg Cp (Triamterene/Hydrochlorothiazid) 1 Each Capsule 1 Cap PO DAILY Montelukast Sodium 10 Mg Tablet 10 Mg PO DAILY Clonidine HCl 0.1 Mg Tablet 0.1 Mg PO BID Levothyroxine Sodium 50 Mcg Tablet 50 Mcg PO DAILY Instructions to patient/family Please see electronic discharge instructions given to patient. Diagnosis/Problems Diagnosis/Problems (1) acute exacerbation of asthma Status: Acute FABIENNE ZAMORA DO Oct 18, 2021 12:18
[2021-10-18] MEDS: [UNRECOGNIZED DRUG - REMARK] PO SCH (12:23)
[2021-10-18 13:50] VITALS: BP 170/70
== END 2021-10-18 12:30 | disposition home or self-care (01) | DRG 202 ==
LOC: 4TH 17:18
PROVIDERS: ADMIT Internal Medicine; ATTEND Internal Medicine
PROC: 5A09357 Assistance with Respiratory Ventilation, Less than 24 Consecutive Hours, Continuous Positive Airway Pressure (ICD-10-PCS; principal; 2021-10-16)
DX: J45.901 Unspecified asthma with (acute) exacerbation (principal); G72.81 Critical illness myopathy; Z68.44 Body mass index [BMI] 60.0-69.9, adult; J20.8 Acute bronchitis due to other specified organisms; Z86.16 Personal history of COVID-19; Z86.711 Personal history of pulmonary embolism; G70.00 Myasthenia gravis without (acute) exacerbation; M06.9 Rheumatoid arthritis, unspecified; I10 Essential (primary) hypertension; E78.5 Hyperlipidemia, unspecified; E66.9 Obesity, unspecified; G47.33 Obstructive sleep apnea (adult) (pediatric); E11.9 Type 2 diabetes mellitus without complications; E78.00 Pure hypercholesterolemia, unspecified; Z86.718 Personal history of other venous thrombosis and embolism; G89.29 Other chronic pain; M54.9 Dorsalgia, unspecified; E03.9 Hypothyroidism, unspecified; F41.9 Anxiety disorder, unspecified; F32.A Depression, unspecified; H53.2 Diplopia; R06.89 Other abnormalities of breathing
CPT/HCPCS: 36415; 71045; 80053; 82805; 82947; 83605; 85007; 85025; 85027; 87040; 87081; 87804; 94640; 94760

== ENCOUNTER 2021-11-09 14:23 | Inpatient (IN) | payer BC ==
[~2021-11-09] VITALS: Ht 167.7 cm; Wt 174.4 kg
[~2021-11-09 14:23] MED LIST changes: +CALC600T80 PO; +FLUT16SP22 NSEACH; +GLYB1.253 PO; +TIOT18CA2 INH
[2021-11-09] MEDS ORDERED: ONDANSETRON 4 MG (ZOFRAN) ORAL DISSOLVE TAB PO PRN (15:15)
[2021-11-09] MEDS ORDERED: NALOXONE 0.4 MG/ML 1 ML (NARCAN) VIAL IV PRN (15:15)
[2021-11-09] MEDS ORDERED: ACETAMINOPHEN 325 MG TABLET PO PRN (15:15)
[2021-11-09] MEDS ORDERED: polyethylene glycoL POWDER 17 GM (MIRALAX) PACK PO PRN (15:15)
[2021-11-09] MEDS ORDERED: CALCIUM CARBONATE 500 MG (TUMS) TAB.CHEW PO PRN (15:15)
[2021-11-09] MEDS ORDERED: diphenhydrAMINE 25 MG TAB (BENADRYL) PO PRN (15:15)
[2021-11-09] MEDS ORDERED: diphenhydrAMINE 50 MG/ML INJ (BENADRYL) IVP PRN (15:15)
[2021-11-09] MEDS ORDERED: BISACODYL 10 MG SUPP (DULCOLAX) PR PRN (15:15)
[2021-11-09] MEDS ORDERED: ONDANSETRON 4 MG/2 ML (SDV) Z0FRAN IV PRN (15:15)
[2021-11-09] MEDS ORDERED: MELATONIN 3 MG TABLET PO PRN (15:15)
[2021-11-09] MEDS ORDERED: ANTACID SUSP 30 ML UDC (MYLANTA) PO PRN (15:15)
[2021-11-09] MEDS ORDERED: MILK OF MAGNESIA 400 MG/5 ML 30 ML UDC PO PRN (15:15)
[2021-11-09] MEDS ORDERED: LACTULOSE SYRUP 10GM/15ML (ENULOSE) 30ML UDC PO PRN (15:15)
[2021-11-09] MEDS ORDERED: inSUlin (REGULAR) HUMAN 1 UNIT/0.01 ML (CHARGE PER UNIT) SC PRN (15:15)
--- NOTE | 2021-11-09 15:32 | Diagnostic Imaging Report ---
INDICATION: Pneumonia. TECHNIQUE/COMPARISON: A single AP view of the chest was obtained with comparison made to the study of 10/15/2021. FINDINGS: The heart size and pulmonary vascularity are within normal limits. The lungs are clear bilaterally. IMPRESSION: Unremarkable chest. Dictated by: Dictated on workstation # [id number]
[2021-11-09 16:00] VITALS: BP 163/74
[2021-11-09] MEDS: DOXYCYCLINE 100 MG (VIBRAMYCIN) TABLET PO SCH (16:09)
[2021-11-09] MEDS: methylPREDNISolone 40 MG/ML (Solu-MEDROL) VIAL IV SCH (16:09)
[2021-11-09 16:16] LABS: BASOPHILS % (AUTO) 1 % (0-10); EOSINOPHILS # (AUTO) 0.1 10^3/uL (0.0-0.3); EOSINOPHILS % (AUTO) 3 % (0-10); HEMATOCRIT 40 % (35-52); LYMPHOCYTES # (AUTO) 0.4 10^3/uL (1.0-4.0); LYMPHOCYTES % (AUTO) 9 % (12-44); MEAN CORPUSCULAR HEMOGLOBIN 29 pg (25-34); MEAN CORPUSCULAR HGB CONC 30 g/dL (32-36); MEAN CORPUSCULAR VOLUME 97 fL (80-99); MEAN PLATELET VOLUME 9.5 fL (9.0-12.2); MONOCYTES # (AUTO) 0.5 10^3/uL (0.0-1.0); MONOCYTES % (AUTO) 12 % (0-12); NEUTROPHILS # (AUTO) 3.3 10^3/uL (1.8-7.8); NEUTROPHILS % (AUTO) 74 % (42-75); PLATELET COUNT 217 10^3/uL (130-400); WHITE BLOOD COUNT 4.5 10^3/uL (4.3-11.0)
[2021-11-09 16:27] LABS: ALBUMIN 3.6 GM/DL (3.2-4.5); POTASSIUM 3.9 MMOL/L (3.6-5.0)
[2021-11-09 16:29] LABS: CALCIUM 8.8 MG/DL (8.5-10.1)
[2021-11-09 16:30] LABS: TOTAL PROTEIN 6.3 GM/DL (6.4-8.2)
[2021-11-09 16:32] LABS: BILIRUBIN,TOTAL 0.4 MG/DL (0.1-1.0)
[2021-11-09] MEDS: inSUlin ASPART (NovoLOG) 1 UNIT/0.01 ML (CHARGE PER UNIT) SC SCH ×2 (16:32→22:14)
[2021-11-09 16:33] LABS: CREATININE SERUM 0.88 MG/DL (0.60-1.30)
[2021-11-09] MEDS ORDERED: guaiFENesin/CODEINE (ROBITUSSIN AC) 10ML UDC PO PRN (16:45)
[2021-11-09] MEDS: IBUPROFEN TABLET 200 MG TAB PO SCH (16:59)
[2021-11-09] MEDS: MICONAZOLE 2% POWDER (DESENEX AF) 90 GM TOP SCH ×2 (17:44→22:15)
[2021-11-09] MEDS: NYSTATIN CREAM (MYCOSTATIN) 30 GM TUBE TP SCH ×2 (17:44→22:15)
[2021-11-09 20:10] VITALS: BP 155/67
[2021-11-09] MEDS ORDERED: cloNIDine 0.1 MG (CATAPRES) TAB PO PRN (21:00)
[2021-11-09] MEDS ORDERED: ALPRAZolam 0.5 MG (XANAX) TAB PO PRN (21:00)
[2021-11-09] MEDS: RT-ALBUTEROL HFA 8.5 GM INHALER IH SCH (22:00)
[2021-11-09] MEDS: MELATONIN 10 MG TABLET PO SCH (22:09)
[2021-11-09] MEDS: APIXABAN 5 MG (ELIQUIS) TABLET PO SCH (22:09)
[2021-11-09] MEDS: cloNIDine 0.1 MG (CATAPRES) TAB PO SCH (22:13)
[2021-11-09] MEDS: DOCUSATE SODIUM 100 MG (COLACE) CAP PO SCH (22:14)
[2021-11-09] MEDS: SENNOSIDES 8.6 MG (SENOKOT) TAB PO SCH (22:14)
[2021-11-09] MEDS: OSELTAMIVIR 75 MG (TAMIFLU) CAPSULE PO SCH (22:15)
[2021-11-10] VITALS (7 sets, daily range): BP systolic 131–162; BP diastolic 62–75
[2021-11-10] MEDS: IBUPROFEN TABLET 200 MG TAB PO SCH ×4 (00:05→17:13)
[2021-11-10] MEDS: methylPREDNISolone 40 MG/ML (Solu-MEDROL) VIAL IV SCH ×4 (00:05→17:13)
[2021-11-10] MEDS: RT-ALBUTEROL HFA 8.5 GM INHALER IH SCH ×4 (02:57→21:42)
[2021-11-10] MEDS: PANTOPRAZOLE 40 MG (PROTONIX) TAB PO SCH (06:10)
[2021-11-10] MEDS: DOXYCYCLINE 100 MG (VIBRAMYCIN) TABLET PO SCH ×2 (06:10→17:11)
[2021-11-10] MEDS: LEVOTHYROXINE 50 MCG (LEVOTHROID) TAB PO SCH (06:10)
[2021-11-10] MEDS: inSUlin ASPART (NovoLOG) 1 UNIT/0.01 ML (CHARGE PER UNIT) SC SCH ×4 (06:17→21:02)
[2021-11-10] MEDS: LORATADINE (CLARITIN) 10 MG TAB PO SCH (08:51)
[2021-11-10] MEDS: VENlafaxine XR 75 MG (EFFEXOR XR) CAP PO SCH (08:51)
[2021-11-10] MEDS: glyBURIDE 2.5 MG (MICRONASE) TAB PO SCH (08:51)
[2021-11-10] MEDS: LOSARTAN 50 MG (COZAAR) TAB PO SCH (08:51)
[2021-11-10] MEDS: MONTELUKAST 10 MG (SINGULAIR) TAB PO SCH (08:52)
[2021-11-10] MEDS: cloNIDine 0.1 MG (CATAPRES) TAB PO SCH ×2 (08:52→21:02)
[2021-11-10] MEDS: APIXABAN 5 MG (ELIQUIS) TABLET PO SCH ×2 (08:52→21:02)
[2021-11-10] MEDS: TRIAMTERENE/HCTZ 75-50 (MAXZIDE,DYAZIDE) TABLET PO SCH (08:52)
[2021-11-10] MEDS: OSELTAMIVIR 75 MG (TAMIFLU) CAPSULE PO SCH ×2 (08:53→21:02)
[2021-11-10] MEDS: FLUTICASONE NASAL SPRAY (FLONASE) 16 GM BTL NS SCH (08:54)
[2021-11-10] MEDS: MICONAZOLE 2% POWDER (DESENEX AF) 90 GM TOP SCH ×2 (08:54→21:03)
[2021-11-10] MEDS: NYSTATIN CREAM (MYCOSTATIN) 30 GM TUBE TP SCH ×3 (08:54→21:03)
[2021-11-10] MEDS: DOCUSATE SODIUM 100 MG (COLACE) CAP PO SCH ×2 (08:58→21:05)
[2021-11-10] MEDS: SENNOSIDES 8.6 MG (SENOKOT) TAB PO SCH ×2 (08:59→21:05)
[2021-11-10] MEDS ORDERED: FLUTICASONE/VILANTEROL 200 MCG 14'S (BREO) IH SCH (09:00)
[2021-11-10] MEDS ORDERED: PRED5TAB PO (11:00)
--- NOTE | 2021-11-10 14:12 | History & Physical ---
ELIZABETH BRUNNER 11/10/21 1412: History of Present Illness History of Present Illness Reason for visit/HPI Patient is a 61 year old female clinic patient of Dr. Zamora with a history of COVID in 09/2020 complicated by pneumonia and PE. Patient was a direct admit from Dr. Zamora's clinic yesterday for SOB, fever, cough, fatigue, HELLER, and weakness. Patient tested positive for influenza A once here. Patient states that her symptoms began on tuesday night and came on very abruptly. Her symptoms progressively got worse on Tuesday and so she went to see Dr. Zamora at her clinic, who then sent her here. Patient had a negative chest x-ray. Patient was started on tamiflu and supportive care. Patient states she is feeling much better this morning, but it still very wheezy. Patient is currently on 3L O2 NC, states she takes 1L at home. Date of Admission Nov 09, 2021 at 14:40 Date Seen by a Provider: Nov 10, 2021 Time Seen by a Provider: 09:00 I consulted on this patient on 11/10/21 14:07 Attending Physician Shayla Zamora DO Admitting Physician Shayla Zamora DO Consult Allergies and Home Medications Allergies Coded Allergies: adhesive tape (Verified Allergy, Intermediate, 10/15/21) BLISTERS AND RAW SKIN almond (Verified Allergy, Intermediate, Abdominal Pain, 10/15/21) Pt states having pain when she eat them. amlodipine (Verified Allergy, Unknown, 10/15/21) erythromycin base (Verified Allergy, Unknown, 10/15/21) Patient Home Medication List Home Medication List Reviewed: Yes Alprazolam (Alprazolam) 0.5 Mg Tablet, 0.5 MG PO Q8H PRN for ANXIETY, (Reported) Entered as Reported by: NITO BREWER on 10/16/21 1125 Last Action: Reviewed Apixaban (Eliquis) 5 Mg Tablet, 5 MG PO BID, (Reported) Entered as Reported by: NITO BREWER on 01/27/21 0947 Last Action: Reviewed Atorvastatin Calcium (Atorvastatin Calcium) 20 Mg Tablet, 20 MG PO DAILY, (Reported) Entered as Reported by: NE GARRETT on 03/31/18 0950 Last Action: Reviewed Azathioprine (Imuran) 50 Mg Tablet, 100 MG PO BID, (Reported) Entered as Reported by: NITO BREWER on 10/16/21 112 Last Action: Reviewed Calcium Carbonate (Calcium Carbonate) 600 Mg Tablet, 1,200 MG PO HS, (Reported) Entered as Reported by: NITO BREWER on 10/16/21 1135 Last Action: Reviewed Cetirizine HCl (All Day Allergy) 10 Mg Tablet, 20 MG PO DAILY, (Reported) Entered as Reported by: NITO BREWER on 10/06/20 1532 Last Action: Reviewed Cholecalciferol (Vitamin D3) (Vitamin D3) 25 Mcg Capsule, 25 MCG PO DAILY, (Reported) Entered as Reported by: NITO BREWER on 10/16/21 112 Last Action: Reviewed Citalopram Hydrobromide (Citalopram HBr) 20 Mg Tablet, 20 MG PO DAILY, (Reported) Entered as Reported by: NITO BREWER on 10/06/20 1530 Last Action: Reviewed Clonidine HCl (Clonidine HCl) 0.1 Mg Tablet, 0.1 MG PO BID, (Reported) Entered as Reported by: VIVEK ROJAS on 07/31/15 1558 Last Action: Reviewed Ezetimibe (Ezetimibe) 10 Mg Tablet, 10 MG PO DAILY, (Reported) Entered as Reported by: NITO BREWER on 06/05/21 1345 Last Action: Reviewed Fluticasone Propionate (Fluticasone Propionate) 16 Gm [place].susp, 1 SPRAY NSEACH DAILY, (Reported) Entered as Reported by: NITO BREWER on 10/16/21 112 Last Action: Reviewed Fluticasone/Vilanterol (Breo Ellipta 200-25 Mcg INH) 1 Each Blst.w.dev, 1 EACH IH DAILY, (Reported) Entered as Reported by: NITO BREWER on 04/29/21 1240 Last Action: Reviewed Furosemide (Furosemide) 40 Mg Tablet, 40 MG PO DAILY PRN for FLUID RETENTION, (Reported) Entered as Reported by: MARIIA ALEJANDRO on 12/25/20 1838 Last Action: Reviewed Glyburide (Glyburide) 1.25 Mg Tablet, 2.5 MG PO DAILY, (Reported) Entered as Reported by: NITO BREWER on 10/16/21 112 Last Action: Reviewed Levothyroxine Sodium (Levothyroxine Sodium) 50 Mcg Tablet, 50 MCG PO DAILY, (Reported) Entered as Reported by: VIVEK ROJAS on 07/31/15 1558 Last Action: Reviewed Losartan Potassium (Losartan Potassium) 50 Mg Tablet, 50 MG PO DAILY, (Reported) Entered as Reported by: NITO BREWER on 10/06/20 1530 Last Action: Reviewed Melatonin (Melatonin) 10 Mg Tablet, 20 MG PO HS, (Reported) Entered as Reported by: NITO BREWER on 04/29/21 1240 Last Action: Reviewed Montelukast Sodium (Montelukast Sodium) 10 Mg Tablet, 10 MG PO DAILY, (Reported) Entered as Reported by: NE GARRETT on 03/31/18 0950 Last Action: Reviewed Pantoprazole Sodium (Pantoprazole Sodium) 40 Mg Tablet.dr, 40 MG PO DAILY, (Reported) Entered as Reported by: NITO BREWER on 08/12/20 0919 Last Action: Reviewed Potassium Chloride (Potassium Chloride) 20 Meq Tablet.er, 20 MEQ PO BID, (Reported) Entered as Reported by: NITO BREWER on 01/27/21 0947 Last Action: Reviewed Prednisone (Prednisone) 5 Mg Tablet, 10 MG PO DAILY, (Reported) Entered as Reported by: NITO BREWER on 11/10/21 1100 Last Action: Reviewed Tiotropium [place] (Spiriva) 1 Inh Aerp, 1 PUFF INH DAILY, (Reported) Entered as Reported by: NITO BREWER on 10/16/21 1125 Last Action: Reviewed Triamterene/Hydrochlorothiazid (Triamterene-Hctz 37.5-25 mg Cp) 1 Each Capsule, 1 CAP PO DAILY, (Reported) Entered as Reported by: NE GARRETT on 03/31/18 0950 Last Action: Reviewed Venlafaxine HCl (Venlafaxine HCl ER) 75 Mg Cap.er.24h, 75 MG PO DAILY, (Reported) Entered as Reported by: NITO BREWER on 06/05/21 1345 Last Action: Reviewed Discontinued Medications Cefdinir (Cefdinir) 300 Mg Capsule, 300 MG PO BID Discontinued Reason: No Longer Taking Prescribed by: SHAYLA ZAMORA on 10/18/21 1217 Last Action: Discontinued Past Pujmtrm-Docvpd-Octlnd Hx Patient Social History Tobacco Use?: No Smoking Status: Never a Smoker Smokeless Tobacco Frequency: Never a User Use of E-Cig and/or Vaping dev: No Use of E-Cig and/or Vaping Sonido: Never a User Substance use?: No Alcohol Use?: No Pt feels they are or have been: No Immunizations Up To Date Date of Influenza Vaccine: Aug 21, 2021 First/Initial COVID19 Vaccinat: 2020 Second COVID19 Vaccination Yousuf: february 2021 Tetanus Booster (TDap): More Than 5 Years Hepatitis A: No Hepatitis B: No PED Vaccines UTD: Yes Date of Pneumonia Vaccine: Jan 04, 2018 Seasonal Allergies Seasonal Allergies: Yes Current Status status: No status: Unable to obtain Advance Directives: Yes Advance Directive Location: Copy from prev record Communicates: Verbally Primary Language: Croatian Preferred Spoken Language: Croatian Is interpretation needed?: No Sensory deficits: Vision impairment Past Medical History Surgeries: Abdominal, Orthopedic Asthma, Pulmonary Embolism, Sleep Apnea Currently Using CPAP: Yes (WITH O2) Currently Using BIPAP: No Chronic Edema/Swelling, Deep Vein Thrombosis, High Cholesterol, Hypertension Neuropathy 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: Menopausal Sexually Transmitted Disease: No Bladder Infection Arthritis, Rheumatoid Arthritis, Chronic Back Pain Hypothyroidsim, Diabetes, Non-Insulin dep Double Vision Loss of Vision: Denies Hearing Impairment: Denies Anxiety, Depression Blood Disorders: No Adverse Reaction/Blood Tranf: No Dx Myasthenia Gravis 07/2020 Family Medical History Alcoholism G8 BROTHER G8 SISTER Alzheimer's disease 19 MOTHER Arthritis 19 FATHER Asthma G8 SISTER Cardiovascular disease 19 FATHER Cataracts 19 FATHER Coronary thrombosis 19 FATHER Deafness or hearing loss SON Diabetes mellitus 19 FATHER G8 SISTER G8 SISTER Drug abuse G8 SISTER Hypertension 19 FATHER G8 SISTER G8 SISTER Kidney disease 19 FATHER Respiratory disorder G8 SISTER G8 SISTER Seizure disorder SON Severe allergy SON Heart Disease, Diabetes, Hypertension Review of Systems Constitutional: fever, weakness Respiratory: cough, wheezing Cardiovascular: No chest pain, No palpitations Gastrointestinal: No nausea, No vomiting Genitourinary: No dysuria, No frequency Psychiatric/Neurological: Headache Physical Exam Vital Signs Vital Signs - First Documented 11/09/21 11/09/21 15:34 16:00 Temp 37.4 Pulse 99 Resp 28 B/P (MAP) 163/74 (103) Pulse Ox 97 O2 Delivery Nasal Cannula O2 Flow Rate 3.00 Capillary Refill : Height, Weight, BMI Height: 5'6.00" Weight: 297lbs. 0.0oz. 134.391966te; 62.01 BMI Method:Stated General Appearance: Mild Distress, Obese Respiratory: Chest Non Tender, No Accessory Muscle Use, No Respiratory Distress, Wheezing Cardiovascular: Normal Peripheral Pulses Rectal: Deferred Extremity: Non Tender, No Calf Tenderness, Pedal Edema Neurologic/Psychiatric: Alert, Oriented x3, Normal Mood/Affect Assessment/Plan Assessment and Plan Assessment Influenza A (+) Hx of Covid PNA Hx of PE Asthma T2DM HLD HTN Plan Oseltamivir LASHAE ICS/LABA IV Steroids Home Medications Supportive Care IS Admission Diagnosis Influenza A Admission Status: Inpatient Order (span 2 midnights) Reason for Inpatient Admission: Influenza A Hx COVID PNA, PE SHAYLA ZAMORA DO 11/11/21 0615: History of Present Illness History of Present Illness Reason for visit/HPI CC: Wheezing HPI: This is a 61yoWF clinic Pt of mine with Myasthenia Gravis and Rheumatoid arthritis with asthma and post-covid syndrome over one year ago, oxygen depende nt who presented to my office with wheezing and SOB. Pt was found to have Influenza A. Pt was placed on Tamiflu, IV steroids for the wheezing and an Albuterol inhaler, so I ordered IS and I spoke with daughter who is a pediatric physician in [place], [place] regarding the plan. Eliquis was restarted at her home dose. Allergies and Home Medications Allergies Coded Allergies: adhesive tape (Verified Allergy, Intermediate, 10/15/21) BLISTERS AND RAW SKIN almond (Verified Allergy, Intermediate, Abdominal Pain, 10/15/21) Pt states having pain when she eat them. amlodipine (Verified Allergy, Unknown, 10/15/21) erythromycin base (Verified Allergy, Unknown, 10/15/21) Patient Home Medication List Home Medication List Reviewed: Yes Alprazolam (Alprazolam) 0.5 Mg Tablet, 0.5 MG PO Q8H PRN for ANXIETY, (Reported) Entered as Reported by: NITO BREWER on 10/16/21 1125 Last Action: Reviewed Apixaban (Eliquis) 5 Mg Tablet, 5 MG PO BID, (Reported) Entered as Reported by: NITO BREWER on 01/27/21 0944 Last Action: Reviewed Atorvastatin Calcium (Atorvastatin Calcium) 20 Mg Tablet, 20 MG PO DAILY, (Reported) Entered as Reported by: NE GARRETT on 03/31/18 0950 Last Action: Reviewed Azathioprine (Imuran) 50 Mg Tablet, 100 MG PO BID, (Reported) Entered as Reported by: NITO BREWER on 10/16/21 112 Last Action: Reviewed Calcium Carbonate (Calcium Carbonate) 600 Mg Tablet, 1,200 MG PO HS, (Reported) Entered as Reported by: NITO BREWER on 10/16/21 1135 Last Action: Reviewed Cetirizine HCl (All Day Allergy) 10 Mg Tablet, 20 MG PO DAILY, (Reported) Entered as Reported by: NITO BREWER on 10/06/20 1532 Last Action: Reviewed Cholecalciferol (Vitamin D3) (Vitamin D3) 25 Mcg Capsule, 25 MCG PO DAILY, (Reported) Entered as Reported by: NITO BREWER on 10/16/211124 Last Action: Reviewed Citalopram Hydrobromide (Citalopram HBr) 20 Mg Tablet, 20 MG PO DAILY, (Reported) Entered as Reported by: NITO BREWER on 10/06/20 1530 Last Action: Reviewed Clonidine HCl (Clonidine HCl) 0.1 Mg Tablet, 0.1 MG PO BID, (Reported) Entered as Reported by: VIVEK ROJAS on 07/31/15 1558 Last Action: Reviewed Ezetimibe (Ezetimibe) 10 Mg Tablet, 10 MG PO DAILY, (Reported) Entered as Reported by: NITO BREWER on 06/05/21 1345 Last Action: Reviewed Fluticasone Propionate (Fluticasone Propionate) 16 Gm [place].susp, 1 SPRAY NSEACH DAILY, (Reported) Entered as Reported by: NITO BREWER on 10/16/21 112 Last Action: Reviewed Fluticasone/Vilanterol (Breo Ellipta 200-25 Mcg INH) 1 Each Blst.w.dev, 1 EACH IH DAILY, (Reported) Entered as Reported by: NITO BREWER on 04/29/21 1240 Last Action: Reviewed Furosemide (Furosemide) 40 Mg Tablet, 40 MG PO DAILY PRN for FLUID RETENTION, (Reported) Entered as Reported by: MARIIA ALEJANDRO on 12/25/20 0665 Last Action: Reviewed Glyburide (Glyburide) 1.25 Mg Tablet, 2.5 MG PO DAILY, (Reported) Entered as Reported by: NITO BREWER on 10/16/21 1125 Last Action: Reviewed Levothyroxine Sodium (Levothyroxine Sodium) 50 Mcg Tablet, 50 MCG PO DAILY, (Reported) Entered as Reported by: VIVEK ROJAS on 07/31/15 1558 Last Action: Reviewed Losartan Potassium (Losartan Potassium) 50 Mg Tablet, 50 MG PO DAILY, (Reported) Entered as Reported by: NITO BREWER on 10/06/20 1530 Last Action: Reviewed Melatonin (Melatonin) 10 Mg Tablet, 20 MG PO HS, (Reported) Entered as Reported by: NITO BREWER on 04/29/21 1240 Last Action: Reviewed Montelukast Sodium (Montelukast Sodium) 10 Mg Tablet, 10 MG PO DAILY, (Reported) Entered as Reported by: NE GARRETT on 03/31/18 0950 Last Action: Reviewed Pantoprazole Sodium (Pantoprazole Sodium) 40 Mg Tablet.dr, 40 MG PO DAILY, (Reported) Entered as Reported by: NITO BREWER on 08/12/20 0919 Last Action: Reviewed Potassium Chloride (Potassium Chloride) 20 Meq Tablet.er, 20 MEQ PO BID, ( Reported) Entered as Reported by: NITO BREWER on 01/27/21 0947 Last Action: Reviewed Prednisone (Prednisone) 5 Mg Tablet, 10 MG PO DAILY, (Reported) Entered as Reported by: NITO BREWER on 11/10/21 1100 Last Action: Reviewed Tiotropium [place] (Spiriva) 1 Inh Aerp, 1 PUFF INH DAILY, (Reported) Entered as Reported by: NITO BREWER on 10/16/21 1125 Last Action: Reviewed Triamterene/Hydrochlorothiazid (Triamterene-Hctz 37.5-25 mg Cp) 1 Each Capsule, 1 CAP PO DAILY, (Reported) Entered as Reported by: NE GARRETT on 03/31/18 0950 Last Action: Reviewed Venlafaxine HCl (Venlafaxine HCl ER) 75 Mg Cap.er.24h, 75 MG PO DAILY, (Reported) Entered as Reported by: NITO BREWER on 06/05/21 1345 Last Action: Reviewed Discontinued Medications Cefdinir (Cefdinir) 300 Mg Capsule, 300 MG PO BID Discontinued Reason: No Longer Taking Prescribed by: SHAYLA ZAMORA on 10/18/21 1217 Last Action: Discontinued Past Vkzfxek-Nvhbxr-Wyvtpa Hx Patient Social History Marrital Status: Employed/Student: employed Tobacco Use?: No Smoking Status: Never a Smoker Alcohol Use?: No Past Medical History Pneumonia, Sleep Apnea Currently Using CPAP: Yes Currently Using BIPAP: No Chronic Edema/Swelling, High Cholesterol, Hypertension Neuropathy Gastroesophageal Reflux Rheumatoid Arthritis Hypothyroidsim, Diabetes, Non-Insulin dep Family Medical History Alcoholism G8 BROTHER G8 SISTER Alzheimer's disease 19 MOTHER Arthritis 19 FATHER Asthma G8 SISTER Cardiovascular disease 19 FATHER Cataracts 19 FATHER Coronary thrombosis 19 FATHER Deafness or hearing loss SON Diabetes mellitus 19 FATHER G8 SISTER G8 SISTER Drug abuse G8 SISTER Hypertension 19 FATHER G8 SISTER G8 SISTER Kidney disease 19 FATHER Respiratory disorder G8 SISTER G8 SISTER Seizure disorder SON Severe allergy SON Review of Systems Constitutional: see HPI, fever, weakness EENTM: no symptoms reported Respiratory: cough, dyspnea on exertion Cardiovascular: no symptoms reported Gastrointestinal: no symptoms reported Genitourinary: no symptoms reported Musculoskeletal: no symptoms reported Skin: no symptoms reported Psychiatric/Neurological: No Symptoms Reported All Other Systems Reviewed Negative Unless Noted: Yes Physical Exam General Appearance: WD/WN, Chronically ill, Mild Distress, Obese Eyes: Bilateral Eye Normal Inspection, Bilateral Eye PERRL, Bilateral Eye EOMI HEENT: PERRL/EOMI, Normal ENT Inspection, Pharynx Normal Neck: Full Range of Motion, Normal Inspection, Non Tender, Supple, Carotid Bruit Respiratory: Chest Non Tender, No Accessory Muscle Use, No Respiratory Distress, Decreased Breath Sounds, Wheezing Cardiovascular: Regular Rate, Rhythm, No Edema, No Gallop, No JVD, No Murmur, Normal Peripheral Pulses Gastrointestinal: Normal Bowel Sounds, No Organomegaly, No Pulsatile Mass, Non Tender, Soft Back: Normal Inspection, No CVA Tenderness, No Vertebral Tenderness Extremity: Normal Capillary Refill, Normal Inspection, Normal Range of Motion, Non Tender, No Calf Tenderness, No Pedal Edema Neurologic/Psychiatric: Alert, Oriented x3, No Motor/Sensory Deficits, Normal Mood/Affect Skin: Normal Color, Warm/Dry Lymphatic: No Adenopathy Assessment/Plan Assessment and Plan Assessment: Acute on chronic respiratory failure hypoxic type Acute influenza A Myasthenia gravis Post Covid syndrome 13 months ago active Covid infection requiring lengthy ICU stay Chronic O2 dependence Morbid obesity BMI 62 Rheumatoid arthritis Hypothyroidism Diabetes mellitus Plan: Home meds Tamiflu IV steroids Doxycycline Problems: (1) Influenza A (2) Wheezing (3) Myasthenia gravis (4) Morbid obesity Status: Acute (5) Diabetes mellitus Status: Chronic (6) Rheumatoid arthritis Status: Chronic Admission Diagnosis Admission Status: Inpatient Order (span 2 midnights) Reason for Inpatient Admission: Respiratory failure Supervisory-Addendum Brief Verification & Attestation Participated in pt care: history, MDM, physical Personally performed: exam, history, MDM, supervision of care Care discussed with: Medical Student Procedures: n/a Results interpretation: Verified all documentation Verification and Attestation of Medical Student E/M Service A medical student performed and documented this service in my presence. I reviewed and verified all information documented by the medical student and made modifications to such information, when appropriate. I personally performed the physical exam and medical decision making. Shayla Zamora Nov 11, 2021,06:11 ELIZABETH BRUNNER Nov 10, 2021 14:12 SHAYLA ZAMORA DO Nov 11, 2021 06:15
[2021-11-10 16:48] LABS: BASOPHILS % (AUTO) 0 % (0-10); EOSINOPHILS % (AUTO) 0 % (0-10); HEMATOCRIT 39 % (35-52); HEMOGLOBIN 12.2 g/dL (11.5-16.0); LYMPHOCYTES # (AUTO) 0.4 10^3/uL (1.0-4.0); LYMPHOCYTES % (AUTO) 7 % (12-44); MEAN CORPUSCULAR HEMOGLOBIN 30 pg (25-34); MEAN CORPUSCULAR HGB CONC 32 g/dL (32-36); MEAN CORPUSCULAR VOLUME 93 fL (80-99); MEAN PLATELET VOLUME 9.6 fL (9.0-12.2); MONOCYTES # (AUTO) 0.2 10^3/uL (0.0-1.0); MONOCYTES % (AUTO) 3 % (0-12); NEUTROPHILS # (AUTO) 5.7 10^3/uL (1.8-7.8); NEUTROPHILS % (AUTO) 90 % (42-75); PLATELET COUNT 272 10^3/uL (130-400); WHITE BLOOD COUNT 6.4 10^3/uL (4.3-11.0)
[2021-11-10 17:02] LABS: ALBUMIN 3.8 GM/DL (3.2-4.5); BILIRUBIN,TOTAL 0.4 MG/DL (0.1-1.0); CALCIUM 9.2 MG/DL (8.5-10.1); CREATININE SERUM 1.08 MG/DL (0.60-1.30); POTASSIUM 4.2 MMOL/L (3.6-5.0); TOTAL PROTEIN 6.8 GM/DL (6.4-8.2)
[2021-11-10 17:08] LABS: LYMPHOCYTES % (MANUAL) 4 %; MONOCYTES % (MANUAL) 3 %; NEUTROPHILS % (MANUAL) 93 %; RBC MORPH NORMAL
[2021-11-10] MEDS: MELATONIN 10 MG TABLET PO SCH (21:02)
[2021-11-11] VITALS (7 sets, daily range): BP systolic 116–147; BP diastolic 56–80
[2021-11-11] MEDS: IBUPROFEN TABLET 200 MG TAB PO SCH ×4 (00:45→17:30)
[2021-11-11] MEDS: methylPREDNISolone 40 MG/ML (Solu-MEDROL) VIAL IV SCH ×4 (00:45→17:30)
[2021-11-11] MEDS: RT-ALBUTEROL HFA 8.5 GM INHALER IH SCH ×3 (02:45→15:16)
[2021-11-11 05:37] LABS: BASOPHILS % (AUTO) 0 % (0-10); EOSINOPHILS % (AUTO) 0 % (0-10); HEMATOCRIT 38 % (35-52); HEMOGLOBIN 12.1 g/dL (11.5-16.0); LYMPHOCYTES # (AUTO) 0.4 10^3/uL (1.0-4.0); LYMPHOCYTES % (AUTO) 4 % (12-44); MEAN CORPUSCULAR HEMOGLOBIN 30 pg (25-34); MEAN CORPUSCULAR HGB CONC 32 g/dL (32-36); MEAN CORPUSCULAR VOLUME 93 fL (80-99); MEAN PLATELET VOLUME 9.5 fL (9.0-12.2); MONOCYTES # (AUTO) 0.4 10^3/uL (0.0-1.0); MONOCYTES % (AUTO) 4 % (0-12); NEUTROPHILS # (AUTO) 9.1 10^3/uL (1.8-7.8); NEUTROPHILS % (AUTO) 91 % (42-75); PLATELET COUNT 284 10^3/uL (130-400)
[2021-11-11 05:50] LABS: ALBUMIN 3.7 GM/DL (3.2-4.5)
[2021-11-11 05:52] LABS: CALCIUM 8.9 MG/DL (8.5-10.1)
[2021-11-11 05:53] LABS: TOTAL PROTEIN 6.4 GM/DL (6.4-8.2)
[2021-11-11 05:55] LABS: BILIRUBIN,TOTAL 0.3 MG/DL (0.1-1.0)
[2021-11-11 05:57] LABS: CREATININE SERUM 0.94 MG/DL (0.60-1.30)
[2021-11-11] MEDS: inSUlin ASPART (NovoLOG) 1 UNIT/0.01 ML (CHARGE PER UNIT) SC SCH ×4 (06:12→21:12)
[2021-11-11] MEDS: PANTOPRAZOLE 40 MG (PROTONIX) TAB PO SCH (06:13)
[2021-11-11] MEDS: LEVOTHYROXINE 50 MCG (LEVOTHROID) TAB PO SCH (06:13)
[2021-11-11] MEDS: DOXYCYCLINE 100 MG (VIBRAMYCIN) TABLET PO SCH ×2 (06:13→17:30)
[2021-11-11] MEDS: SENNOSIDES 8.6 MG (SENOKOT) TAB PO SCH ×2 (08:57→21:14)
[2021-11-11] MEDS: TRIAMTERENE/HCTZ 75-50 (MAXZIDE,DYAZIDE) TABLET PO SCH (08:57)
[2021-11-11] MEDS: glyBURIDE 2.5 MG (MICRONASE) TAB PO SCH (08:57)
[2021-11-11] MEDS: MONTELUKAST 10 MG (SINGULAIR) TAB PO SCH (08:57)
[2021-11-11] MEDS: APIXABAN 5 MG (ELIQUIS) TABLET PO SCH ×2 (08:57→21:13)
[2021-11-11] MEDS: DOCUSATE SODIUM 100 MG (COLACE) CAP PO SCH ×2 (08:57→21:14)
[2021-11-11] MEDS: LOSARTAN 50 MG (COZAAR) TAB PO SCH (08:57)
[2021-11-11] MEDS: cloNIDine 0.1 MG (CATAPRES) TAB PO SCH ×2 (08:57→21:23)
[2021-11-11] MEDS: LORATADINE (CLARITIN) 10 MG TAB PO SCH (08:57)
[2021-11-11] MEDS: FLUTICASONE NASAL SPRAY (FLONASE) 16 GM BTL NS SCH (08:58)
[2021-11-11] MEDS: VENlafaxine XR 75 MG (EFFEXOR XR) CAP PO SCH (08:58)
[2021-11-11] MEDS: OSELTAMIVIR 75 MG (TAMIFLU) CAPSULE PO SCH ×2 (08:58→21:13)
[2021-11-11] MEDS: MICONAZOLE 2% POWDER (DESENEX AF) 90 GM TOP SCH ×2 (08:58→21:15)
[2021-11-11] MEDS: NYSTATIN CREAM (MYCOSTATIN) 30 GM TUBE TP SCH ×3 (08:59→21:15)
[2021-11-11] MEDS: RT--FLUTICASONE/SALMETEROL 113-14 (AIRDUO RespiCLICK) IH SCH (10:36)
--- NOTE | 2021-11-11 12:57 | Progress Note ---
ELIZABETH BRUNNER 11/11/21 1257: Subjective Date Seen by a Provider: Nov 11, 2021 Time Seen by a Provider: 08:50 Subjective/Events-last exam Patient is more tired today. Wore out from coughing. Feels more wheezy today. Would like to start her nebulizer treatments, will reach out to RT again. Bert sewell states she is slightly more sad today because her and son are both influenza A positive. Patient states her appetite is coming back. No fever, N/V, diarrhea, or HELLER today. Patient does have a sore throat and her cough has gotten worse. Her blood cultures came back with preliminary findings of no growth. Review of Systems General: No Chills, No Night Sweats HEENT: No Head Aches Pulmonary: Cough Cardiovascular: No: Chest Pain, Palpitations Gastrointestinal: No: Nausea, Vomiting Genitourinary: No Dysuria, No Frequency Focused Exam Lactate Level 11/09/21 16:00: Lactic Acid Level 1.47 Objective Exam Last Set of Vital Signs Vital Signs Date Time Temp Pulse Resp B/P (MAP) Pulse Ox O2 Delivery O2 Flow Rate FiO2 11/11/21 10:36 93 Nasal Cannula 3.00 11/11/21 08:00 35.9 77 24 132/62 (85) Capillary Refill : I&O Intake and Output 11/11/21 00:00 Intake Total 2160 ml Balance 2160 ml Intake Oral 2160 ml # Voids 7 # Bowel Movements 1 General: Alert, Oriented X3, Cooperative Lungs: Other (wheezing all four listening posts) Heart: Regular Rate, No Murmurs Extremities: Other (1+ pedal edema) Neuro: Normal Speech Psych/Mental Status: Mental Status NL Results Lab Laboratory Tests 11/10/21 16:17: Glucometer 226H 11/10/21 16:35: White Blood Count 6.4, Red Blood Count 4.14, Hemoglobin 12.2, Hematocrit 39, Mean Corpuscular Volume 93, Mean Corpuscular Hemoglobin 30, Mean Corpuscular Hemoglobin Concent 32, Red Cell Distribution Width 15.0H, Platelet Count 272, Mean Platelet Volume 9.6, Immature Granulocyte % (Auto) 1, Neutrophils (%) (Auto) 90H, Lymphocytes (%) (Auto) 7L, Monocytes (%) (Auto) 3, Eosinophils (%) ( Auto) 0, Basophils (%) (Auto) 0, Neutrophils # (Auto) 5.7, Lymphocytes # (Auto) 0.4L, Monocytes # (Auto) 0.2, Eosinophils # (Auto) 0.0, Basophils # (Auto) 0.0, Immature Granulocyte # (Auto) 0.0, Neutrophils % (Manual) 93, Lymphocytes % (Manual) 4, Monocytes % (Manual) 3, Blood Morphology Comment NORMAL, Sodium Level 135, Potassium Level 4.2, Chloride Level 100, Carbon Dioxide Level 22, Anion Gap 13, Blood Urea Nitrogen 21H, Creatinine 1.08, Estimat Glomerular Filtration Rate 51, BUN/Creatinine Ratio 19, Glucose Level 253H, Calcium Level 9.2, Corrected Calcium 9.4, Total Bilirubin 0.4, Aspartate Amino Transf (AST/SGOT) 17, Alanine Aminotransferase (ALT/SGPT) 22, Alkaline Phosphatase 80, Total Protein 6.8, Albumin 3.8 11/11/21 05:30: White Blood Count 10.0, Red Blood Count 4.07, Hemoglobin 12.1, Hematocrit 38, Mean Corpuscular Volume 93, Mean Corpuscular Hemoglobin 30, Mean Corpuscular Hemoglobin Concent 32, Red Cell Distribution Width 15.1H, Platelet Count 284, Mean Platelet Volume 9.5, Immature Granulocyte % (Auto) 1, Neutrophils (%) (Auto) 91H, Lymphocytes (%) (Auto) 4L, Monocytes (%) (Auto) 4, Eosinophils (%) (Auto) 0, Basophils (%) (Auto) 0, Neutrophils # (Auto) 9.1H, Lymphocytes # (Auto) 0.4L, Monocytes # (Auto) 0.4, Eosinophils # (Auto) 0.0, Basophils # (Auto) 0.0, Immature Granulocyte # (Auto) 0.1, Sodium Level 137, Potassium Level 4.0, Chloride Level 102, Carbon Dioxide Level 24, Anion Gap 11, Blood Urea Nitrogen 25H, Creatinine 0.94, Estimat Glomerular Filtration Rate 60, BUN/Creatinine Ratio 27, Glucose Level 249H, Calcium Level 8.9, Corrected Calcium 9.1, Total Bilirubin 0.3, Aspartate Amino Transf (AST/SGOT) 13, Alanine Aminotransferase (ALT/SGPT) 20, Alkaline Phosphatase 78, Total Protein 6.4, Albumin 3.7 11/11/21 05:44: Glucometer 233H Microbiology 12/27/21 Blood Culture - Preliminary, Resulted No growth Assessment/Plan Assessment/Plan Assess & Plan/Chief Complaint Assessment: Acute on chronic respiratory failure hypoxic type Acute influenza A Myasthenia gravis 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 - unable to yesterday 2/2 respiratory droplet precaution Home meds Clinical Quality Measures Admission Status Admission Dx Influenza A SHAYLA ZAMORA DO 11/12/21 0605: Subjective Subjective/Events-last exam Pt is doing better Wheezing is significant so will need to do breathing treatments even though she is Influenza A and the droplet precaution I did update RT Tamiflu maintained Checked meds and labs Review of Systems General: Fatigue, Malaise Pulmonary: Dyspnea Objective Exam General: Alert, Oriented X3, Cooperative, No Acute Distress Lungs: Other (wheezing all four listening posts) Neuro: Normal Gait Assessment/Plan Assessment/Plan Assess & Plan/Chief Complaint Nebulizer treatments Tamiflu Home meds Supervisory-Addendum Brief Verification & Attestation Participated in pt care: history, MDM, physical Personally performed: exam, history, MDM, supervision of care Care discussed with: Medical Student Procedures: n/a Results interpretation: Verified all documentation Verification and Attestation of Medical Student E/M Service A medical student performed and documented this service in my presence. I reviewed and verified all information documented by the medical student and made modifications to such information, when appropriate. I personally performed the physical exam and medical decision making. Shayla Zamora Nov 12, 2021,06:04 ELIZABETH BRUNNER Nov 11, 2021 12:57 SHAYLA ZAMORA DO Nov 12, 2021 06:05
[2021-11-11] MEDS ORDERED: RT-ALBUTEROL/IPRATROPIUM 3 ML (DUONEB) VIAL INH PRN (15:30)
[2021-11-11] MEDS: RT-ALBUTEROL/IPRATROPIUM 3 ML (DUONEB) VIAL INH SCH ×2 (18:29→22:01)
[2021-11-11] MEDS: MELATONIN 10 MG TABLET PO SCH (21:13)
[2021-11-12] VITALS (8 sets, daily range): BP systolic 125–152; BP diastolic 58–70
[2021-11-12] MEDS: methylPREDNISolone 40 MG/ML (Solu-MEDROL) VIAL IV SCH ×4 (00:38→17:18)
[2021-11-12] MEDS: IBUPROFEN TABLET 200 MG TAB PO SCH ×4 (00:38→17:20)
[2021-11-12] MEDS: RT-ALBUTEROL/IPRATROPIUM 3 ML (DUONEB) VIAL INH SCH ×6 (02:20→22:39)
[2021-11-12 04:40] LABS: BASOPHILS % (AUTO) 0 % (0-10); EOSINOPHILS % (AUTO) 0 % (0-10); HEMATOCRIT 38 % (35-52); HEMOGLOBIN 11.9 g/dL (11.5-16.0); LYMPHOCYTES # (AUTO) 0.6 10^3/uL (1.0-4.0); LYMPHOCYTES % (AUTO) 5 % (12-44); MEAN CORPUSCULAR HEMOGLOBIN 30 pg (25-34); MEAN CORPUSCULAR HGB CONC 32 g/dL (32-36); MEAN CORPUSCULAR VOLUME 93 fL (80-99); MEAN PLATELET VOLUME 9.4 fL (9.0-12.2); MONOCYTES # (AUTO) 0.4 10^3/uL (0.0-1.0); MONOCYTES % (AUTO) 3 % (0-12); NEUTROPHILS % (AUTO) 91 % (42-75); PLATELET COUNT 300 10^3/uL (130-400); WHITE BLOOD COUNT 12.1 10^3/uL (4.3-11.0)
[2021-11-12 04:50] LABS: ALBUMIN 3.6 GM/DL (3.2-4.5); POTASSIUM 4.5 MMOL/L (3.6-5.0)
[2021-11-12 04:53] LABS: TOTAL PROTEIN 6.3 GM/DL (6.4-8.2)
[2021-11-12 04:55] LABS: BILIRUBIN,TOTAL 0.3 MG/DL (0.1-1.0)
[2021-11-12 04:56] LABS: CREATININE SERUM 1.07 MG/DL (0.60-1.30)
[2021-11-12] MEDS: DOXYCYCLINE 100 MG (VIBRAMYCIN) TABLET PO SCH ×2 (05:28→17:20)
[2021-11-12] MEDS: inSUlin ASPART (NovoLOG) 1 UNIT/0.01 ML (CHARGE PER UNIT) SC SCH ×4 (05:28→21:49)
[2021-11-12] MEDS: PANTOPRAZOLE 40 MG (PROTONIX) TAB PO SCH (05:28)
[2021-11-12] MEDS: LEVOTHYROXINE 50 MCG (LEVOTHROID) TAB PO SCH (05:28)
[2021-11-12] MEDS: RT--FLUTICASONE/SALMETEROL 113-14 (AIRDUO RespiCLICK) IH SCH (07:49)
[2021-11-12] MEDS: SENNOSIDES 8.6 MG (SENOKOT) TAB PO SCH ×2 (09:40→21:50)
[2021-11-12] MEDS: cloNIDine 0.1 MG (CATAPRES) TAB PO SCH ×2 (09:40→21:50)
[2021-11-12] MEDS: MONTELUKAST 10 MG (SINGULAIR) TAB PO SCH (09:40)
[2021-11-12] MEDS: TRIAMTERENE/HCTZ 75-50 (MAXZIDE,DYAZIDE) TABLET PO SCH (09:40)
[2021-11-12] MEDS: glyBURIDE 2.5 MG (MICRONASE) TAB PO SCH (09:40)
[2021-11-12] MEDS: OSELTAMIVIR 75 MG (TAMIFLU) CAPSULE PO SCH ×2 (09:41→21:50)
[2021-11-12] MEDS: DOCUSATE SODIUM 100 MG (COLACE) CAP PO SCH ×2 (09:41→21:50)
[2021-11-12] MEDS: LORATADINE (CLARITIN) 10 MG TAB PO SCH (09:41)
[2021-11-12] MEDS: LOSARTAN 50 MG (COZAAR) TAB PO SCH (09:41)
[2021-11-12] MEDS: APIXABAN 5 MG (ELIQUIS) TABLET PO SCH ×2 (09:41→21:50)
[2021-11-12] MEDS: FLUTICASONE NASAL SPRAY (FLONASE) 16 GM BTL NS SCH (09:42)
[2021-11-12] MEDS: MICONAZOLE 2% POWDER (DESENEX AF) 90 GM TOP SCH ×2 (09:45→21:51)
[2021-11-12] MEDS: NYSTATIN CREAM (MYCOSTATIN) 30 GM TUBE TP SCH ×3 (09:46→21:51)
[2021-11-12] MEDS: VENlafaxine XR 75 MG (EFFEXOR XR) CAP PO SCH (09:47)
--- NOTE | 2021-11-12 15:14 | Progress Note ---
ELIZABETH BRUNNER 11/12/21 1514: Subjective Date Seen by a Provider: Nov 12, 2021 Time Seen by a Provider: 09:50 Subjective/Events-last exam Patient feels much better today. States she can tell the nebulizer breathing treatment is working. Patient's wheezing is notably less prominent today compare d to yesterday. Probably home tomorrow. Focused Exam Lactate Level 11/09/21 16:00: Lactic Acid Level 1.47 Objective Exam Last Set of Vital Signs Vital Signs Date Time Temp Pulse Resp B/P (MAP) Pulse Ox O2 Delivery O2 Flow Rate FiO2 11/12/21 11:12 36.8 76 22 137/60 (85) 96 Nasal Cannula 3.00 Capillary Refill : I&O Intake and Output 11/12/21 00:00 Intake Total 2850 ml Balance 2850 ml Intake Oral 2850 ml # Voids 9 # Bowel Movements 2 General: Alert, Oriented X3, Cooperative Lungs: Other (expiratory wheeze) Heart: Regular Rate, No Murmurs Extremities: Normal Pulses Neuro: Normal Speech Psych/Mental Status: Mental Status NL Results Lab Laboratory Tests 11/11/21 20:47: Glucometer 261H 11/12/21 04:20: White Blood Count 12.1H, Red Blood Count 4.03, Hemoglobin 11.9, Hematocrit 38, Mean Corpuscular Volume 93, Mean Corpuscular Hemoglobin 30, Mean Corpuscular Hemoglobin Concent 32, Red Cell Distribution Width 15.2H, Platelet Count 300, Mean Platelet Volume 9.4, Immature Granulocyte % (Auto) 1, Neutrophils (%) (Auto) 91H, Lymphocytes (%) (Auto) 5L, Monocytes (%) (Auto) 3, Eosinophils (%) (Auto) 0, Basophils (%) (Auto) 0, Neutrophils # (Auto) 11.0H, Lymphocytes # (Auto) 0.6L, Monocytes # (Auto) 0.4, Eosinophils # (Auto) 0.0, Basophils # (Auto) 0.0, Immature Granulocyte # (Auto) 0.1, Sodium Level 136, Potassium Level 4.5, Chloride Level 99, Carbon Dioxide Level 25, Anion Gap 12, Blood Urea Nitrogen 29H, Creatinine 1.07, Estimat Glomerular Filtration Rate 52, BUN/Creatinine Ratio 27, Glucose Level 261H, Calcium Level 9.0, Corrected Calcium 9.3, Total Bilirubin 0.3, Aspartate Amino Transf (AST/SGOT) 13, Alanine Aminotransferase (ALT/SGPT) 19, Alkaline Phosphatase 73, Total Protein 6.3L, Albumin 3.6 11/12/21 05:30: Procalcitonin 0.02 11/12/21 05:42: Glucometer 262H 11/12/21 11:11: Glucometer 258H Microbiology 11/11/21 MRSA Screen - Final, Complete MRSA not isolated 11/09/21 Blood Culture - Preliminary, Resulted No growth Assessment/Plan Assessment/Plan Assess & Plan/Chief Complaint Assessment: Acute on chronic respiratory failure hypoxic type Acute influenza A Myasthenia gravis 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 - unable to yesterday 2/2 respiratory droplet precaution Home meds 11/12/2021: Tamiflu IV Steroids Doxycycline Breathing treatments Home Meds Home tomorrow probable Clinical Quality Measures Admission Status Admission Dx Influenza A SHAYLA ZAMORA DO 11/13/21 0558: Subjective Subjective/Events-last exam Pt doing a lot better Wheezing is much improved after nebulizers Overall did really well through the night Updated daughter by text Review of Systems General: Fatigue, Malaise Objective Exam General: Alert, Oriented X3, Cooperative, No Acute Distress Lungs: Other (expiratory wheeze) Heart: Regular Rate Assessment/Plan Assessment/Plan Assess & Plan/Chief Complaint Supportive care Likely discharge home tomorrow Supervisory-Addendum Brief Verification & Attestation Participated in pt care: history, MDM, physical Personally performed: exam, history, MDM, supervision of care Care discussed with: Medical Student Procedures: n/a Results interpretation: Verified all documentation Verification and Attestation of Medical Student E/M Service A medical student performed and documented this service in my presence. I reviewed and verified all information documented by the medical student and made modifications to such information, when appropriate. I personally performed the physical exam and medical decision making. Shayla Zamora Nov 13, 2021,05:57 ELIZABETH BRUNNER Nov 12, 2021 15:14 SHAYLA ZAOMRA DO Nov 13, 2021 05:58
[2021-11-12] MEDS: MELATONIN 10 MG TABLET PO SCH (21:50)
[2021-11-13] MEDS: IBUPROFEN TABLET 200 MG TAB PO SCH ×3 (00:10→13:15)
[2021-11-13] MEDS: methylPREDNISolone 40 MG/ML (Solu-MEDROL) VIAL IV SCH ×3 (00:10→13:15)
[2021-11-13 05:10] LABS: BASOPHILS % (AUTO) 0 % (0-10); EOSINOPHILS % (AUTO) 0 % (0-10); HEMATOCRIT 38 % (35-52); HEMOGLOBIN 11.9 g/dL (11.5-16.0); LYMPHOCYTES # (AUTO) 0.7 10^3/uL (1.0-4.0); LYMPHOCYTES % (AUTO) 6 % (12-44); MEAN CORPUSCULAR HEMOGLOBIN 29 pg (25-34); MEAN CORPUSCULAR HGB CONC 32 g/dL (32-36); MEAN CORPUSCULAR VOLUME 92 fL (80-99); MEAN PLATELET VOLUME 9.6 fL (9.0-12.2); MONOCYTES # (AUTO) 0.4 10^3/uL (0.0-1.0); MONOCYTES % (AUTO) 4 % (0-12); NEUTROPHILS # (AUTO) 9.2 10^3/uL (1.8-7.8); NEUTROPHILS % (AUTO) 89 % (42-75); PLATELET COUNT 297 10^3/uL (130-400); WHITE BLOOD COUNT 10.4 10^3/uL (4.3-11.0)
[2021-11-13 05:24] LABS: ALBUMIN 3.5 GM/DL (3.2-4.5)
[2021-11-13 05:25] LABS: POTASSIUM 4.6 MMOL/L (3.6-5.0)
[2021-11-13 05:26] LABS: CALCIUM 9.1 MG/DL (8.5-10.1)
[2021-11-13 05:27] LABS: TOTAL PROTEIN 6.1 GM/DL (6.4-8.2)
[2021-11-13 05:29] LABS: BILIRUBIN,TOTAL 0.3 MG/DL (0.1-1.0)
[2021-11-13 05:31] LABS: CREATININE SERUM 1.12 MG/DL (0.60-1.30)
[2021-11-13] MEDS: DOXYCYCLINE 100 MG (VIBRAMYCIN) TABLET PO SCH (05:33)
[2021-11-13] MEDS: LEVOTHYROXINE 50 MCG (LEVOTHROID) TAB PO SCH (05:33)
[2021-11-13] MEDS: PANTOPRAZOLE 40 MG (PROTONIX) TAB PO SCH (05:33)
[2021-11-13] MEDS: inSUlin ASPART (NovoLOG) 1 UNIT/0.01 ML (CHARGE PER UNIT) SC SCH ×2 (05:34→13:14)
[2021-11-13] MEDS: RT-ALBUTEROL/IPRATROPIUM 3 ML (DUONEB) VIAL INH SCH ×2 (07:20→10:55)
[2021-11-13 08:24] VITALS: BP 150/72
[2021-11-13] MEDS: glyBURIDE 2.5 MG (MICRONASE) TAB PO SCH (09:13)
[2021-11-13] MEDS: LOSARTAN 50 MG (COZAAR) TAB PO SCH (09:13)
[2021-11-13] MEDS: LORATADINE (CLARITIN) 10 MG TAB PO SCH (09:13)
[2021-11-13] MEDS: APIXABAN 5 MG (ELIQUIS) TABLET PO SCH (09:13)
[2021-11-13] MEDS: TRIAMTERENE/HCTZ 75-50 (MAXZIDE,DYAZIDE) TABLET PO SCH (09:13)
[2021-11-13] MEDS: MONTELUKAST 10 MG (SINGULAIR) TAB PO SCH (09:13)
[2021-11-13] MEDS: SENNOSIDES 8.6 MG (SENOKOT) TAB PO SCH (09:14)
[2021-11-13] MEDS: VENlafaxine XR 75 MG (EFFEXOR XR) CAP PO SCH (09:14)
[2021-11-13] MEDS: OSELTAMIVIR 75 MG (TAMIFLU) CAPSULE PO SCH (09:14)
[2021-11-13] MEDS: cloNIDine 0.1 MG (CATAPRES) TAB PO SCH (09:14)
[2021-11-13] MEDS: DOCUSATE SODIUM 100 MG (COLACE) CAP PO SCH (09:14)
[2021-11-13] MEDS: MICONAZOLE 2% POWDER (DESENEX AF) 90 GM TOP SCH (09:18)
[2021-11-13] MEDS: FLUTICASONE NASAL SPRAY (FLONASE) 16 GM BTL NS SCH (09:18)
[2021-11-13] MEDS: NYSTATIN CREAM (MYCOSTATIN) 30 GM TUBE TP SCH ×2 (09:18→13:15)
[2021-11-13] MEDS: RT--FLUTICASONE/SALMETEROL 113-14 (AIRDUO RespiCLICK) IH SCH (10:54)
[2021-11-13] MEDS ORDERED: OSLT75C PO (11:20)
[2021-11-13] MEDS ORDERED: NYST15CR TP (11:20)
[2021-11-13] MEDS ORDERED: IPRA3AMP31 INH (11:20)
[2021-11-13] MEDS ORDERED: MICO90PO TOP (11:20)
[2021-11-13] MEDS ORDERED: DOXY100T2 PO ×2 (11:20)
[2021-11-13] MEDS ORDERED: PRED10TA22 PO (11:20)
--- NOTE | 2021-11-13 11:21 | Discharge Summary ---
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 Pt was found to have Influenza A. Pt was placed on Tamiflu, IV steroids for the wheezing and an Albuterol inhaler, so I ordered IS and I spoke with daughter who is a pediatric physician in [place], [place] regarding the plan. Eliquis was restarted at her home dose. Discharge Summary Discharge Physical Examination Allergies: Coded Allergies: adhesive tape (Verified Allergy, Intermediate, 10/15/21) BLISTERS AND RAW SKIN almond (Verified Allergy, Intermediate, Abdominal Pain, 10/15/21) Pt states having pain when she eat them. amlodipine (Verified Allergy, Unknown, 10/15/21) erythromycin base (Verified Allergy, Unknown, 10/15/21) Vitals & I&Os Vital Signs Date Time Temp Pulse Resp B/P (MAP) Pulse Ox O2 Delivery O2 Flow Rate FiO2 11/13/21 13:36 35.9 71 20 150/72 96 Nasal Cannula 3.00 General Appearance: Alert, Oriented X3, Cooperative Respiratory: Clear to Auscultation Cardiovascular: Regular Rate Psych/Mental Status: Mental Status NL Hospital Course Was the Problem List Reviewed?: Yes Patient is a 61 year old female who was admitted to [facility] on 11/[address] Jimenez's clinic for SOB, fever, cough, fatigue, HELLER, and weakness. Patient was found to be influenza positive. Patient's initial chest x-ray was negative. Patient's symptoms started on the night of the . Started on Tamiflu, Doxycycline, and supportive care. On 11/11, Patient became markedly more wheezy, so patient was began on nebulizer breathing treatments. Initial blood cultures came back negative for any growth. On 11/12, Patient showed clinical improvement, but still had some slight wheezing. Planned on discharge on 11/13 if patient's condition continued to improve. On 11/13, patient's clinical condition had marked improvement, and she was deemed okay to discharge home. Patient to continue taking tamiflu, duoneb breathing treatments, doxycyline for MRSA pneumonia prophylaxis, and a prednisone taper. To follow-up with PCP, Dr. Jimenez, next week. All medications called in to patient's pharmacy for pick-up. ELIZABETH BRUNNER Nov 13, 2021 12:56 Labs (last 24 hrs) Laboratory Tests 11/09/21 15:30: Influenza Type A (RT-PCR) DetectedH, Influenza Type B (RT-PCR) Not Detected, SARS-CoV-2 RNA (RT-PCR) Not Detected 11/09/21 16:00: White Blood Count 4.5, Red Blood Count 4.09, Hemoglobin 12.0, Hematocrit 40, Mean Corpuscular Volume 97, Mean Corpuscular Hemoglobin 29, Mean Corpuscular Hemoglobin Concent 30L, Red Cell Distribution Width 14.9H, Platelet Count 217, Mean Platelet Volume 9.5, Immature Granulocyte % (Auto) 2, Neutrophils (%) (Auto) 74, Lymphocytes (%) (Auto) 9L, Monocytes (%) (Auto) 12, Eosinophils (%) (Auto) 3, Basophils (%) (Auto) 1, Neutrophils # (Auto) 3.3, Lymphocytes # (Auto) 0.4L, Monocytes # (Auto) 0.5, Eosinophils # (Auto) 0.1, Basophils # (Auto) 0.0, Immature Granulocyte # (Auto) 0.1, Sodium Level 139, Potassium Level 3.9, Chloride Level 102, Carbon Dioxide Level 27, Anion Gap 10, Blood Urea Nitrogen 22H, Creatinine 0.88, Estimat Glomerular Filtration Rate 65, BUN/Creatinine Ratio 25, Glucose Level 139H, Lactic Acid Level 1.47, Calcium Level 8.8, Corrected Calcium 9.1, Total Bilirubin 0.4, Aspartate Amino Transf (AST/SGOT) 16, Alanine Aminotransferase (ALT/SGPT) 21, Alkaline Phosphatase 87, Total Protein 6.3L, Albumin 3.6, Procalcitonin 0.06 11/09/21 16:02: Glucometer 128H 11/09/21 20:30: Glucometer 247H 11/10/21 06:07: Glucometer 228H 11/10/21 11:46: Glucometer 233H 11/10/21 16:17: Glucometer 226H 11/10/21 16:35: White Blood Count 6.4, Red Blood Count 4.14, Hemoglobin 12.2, Hematocrit 39, Mean Corpuscular Volume 93, Mean Corpuscular Hemoglobin 30, Mean Corpuscular Hemoglobin Concent 32, Red Cell Distribution Width 15.0H, Platelet Count 272, Mean Platelet Volume 9.6, Immature Granulocyte % (Auto) 1, Neutrophils (%) (Auto) 90H, Lymphocytes (%) (Auto) 7L, Monocytes (%) (Auto) 3, Eosinophils (%) (Auto) 0, Basophils (%) (Auto) 0, Neutrophils # (Auto) 5.7, Lymphocytes # (Auto) 0.4L, Monocytes # (Auto) 0.2, Eosinophils # (Auto) 0.0, Basophils # (Auto) 0.0, Immature Granulocyte # (Auto) 0.0, Neutrophils % (Manual) 93, Lymphocytes % (Manual) 4, Monocytes % (Manual) 3, Blood Morphology Comment NORMAL, Sodium Level 135, Potassium Level 4.2, Chloride Level 100, Carbon Dioxide Level 22, Anion Gap 13, Blood Urea Nitrogen 21H, Creatinine 1.08, Estimat Glomerular Filtration Rate 51, BUN/Creatinine Ratio 19, Glucose Level 253H, Calcium Level 9.2, Corrected Calcium 9.4, Total Bilirubin 0.4, Aspartate Amino Transf (AST/SGOT) 17, Alanine Aminotransferase (ALT/SGPT) 22, Alkaline Phosphatase 80, Total Protein 6.8, Albumin 3.8 11/11/21 05:30: White Blood Count 10.0, Red Blood Count 4.07, Hemoglobin 12.1, Hematocrit 38, Mean Corpuscular Volume 93, Mean Corpuscular Hemoglobin 30, Mean Corpuscular Hemoglobin Concent 32, Red Cell Distribution Width 15.1H, Platelet Count 284, Mean Platelet Volume 9.5, Immature Granulocyte % (Auto) 1, Neutrophils (%) (Auto) 91H, Lymphocytes (%) (Auto) 4L, Monocytes (%) (Auto) 4, Eosinophils (%) (Auto) 0, Basophils (%) (Auto) 0, Neutrophils # (Auto) 9.1H, Lymphocytes # (Auto) 0.4L, Monocytes # (Auto) 0.4, Eosinophils # (Auto) 0.0, Basophils # (Auto) 0.0, Immature Granulocyte # (Auto) 0.1, Sodium Level 137, Potassium Level 4.0, Chloride Level 102, Carbon Dioxide Level 24, Anion Gap 11, Blood Urea Nitrogen 25H, Creatinine 0.94, Estimat Glomerular Filtration Rate 60, BUN/Creatinine Ratio 27, Glucose Level 249H, Calcium Level 8.9, Corrected Calcium 9.1, Total Bilirubin 0.3, Aspartate Amino Transf (AST/SGOT) 13, Alanine Aminotransferase (ALT/SGPT) 20, Alkaline Phosphatase 78, Total Protein 6.4, Albumin 3.7 11/11/21 05:44: Glucometer 233H 11/11/21 11:31: Glucometer 254H 11/11/21 20:47: Glucometer 261H 11/12/21 04:20: White Blood Count 12.1H, Red Blood Count 4.03, Hemoglobin 11.9, Hematocrit 38, Mean Corpuscular Volume 93, Mean Corpuscular Hemoglobin 30, Mean Corpuscular Hemoglobin Concent 32, Red Cell Distribution Width 15.2H, Platelet Count 300, Mean Platelet Volume 9.4, Immature Granulocyte % (Auto) 1, Neutrophils (%) (Auto) 91H, Lymphocytes (%) (Auto) 5L, Monocytes (%) (Auto) 3, Eosinophils (%) (Auto) 0, Basophils (%) (Auto) 0, Neutrophils # (Auto) 11.0H, Lymphocytes # (Auto) 0.6L, Monocytes # (Auto) 0.4, Eosinophils # (Auto) 0.0, Basophils # (Auto) 0.0, Immature Granulocyte # (Auto) 0.1, Sodium Level 136, Potassium Level 4.5, Chloride Level 99, Carbon Dioxide Level 25, Anion Gap 12, Blood Urea Nitrogen 29H, Creatinine 1.07, Estimat Glomerular Filtration Rate 52, BUN/Creatinine Ratio 27, Glucose Level 261H, Calcium Level 9.0, Corrected Calcium 9.3, Total Bilirubin 0.3, Aspartate Amino Transf (AST/SGOT) 13, Alanine Aminotransferase (ALT/SGPT) 19, Alkaline Phosphatase 73, Total Protein 6.3L, Albumin 3.6 11/12/21 05:30: Procalcitonin 0.02 11/12/21 05:42: Glucometer 262H 11/12/21 11:11: Glucometer 258H 11/12/21 16:34: Glucometer 225H 11/12/21 21:44: Glucometer 334H 11/13/21 04:55: White Blood Count 10.4, Red Blood Count 4.07, Hemoglobin 11.9, Hematocrit 38, Mean Corpuscular Volume 92, Mean Corpuscular Hemoglobin 29, Mean Corpuscular Hemoglobin Concent 32, Red Cell Distribution Width 15.3H, Platelet Count 297, Mean Platelet Volume 9.6, Immature Granulocyte % (Auto) 1, Neutrophils (%) (Auto) 89H, Lymphocytes (%) (Auto) 6L, Monocytes (%) (Auto) 4, Eosinophils (%) (Auto) 0, Basophils (%) (Auto) 0, Neutrophils # (Auto) 9.2H, Lymphocytes # (Auto) 0.7L, Monocytes # (Auto) 0.4, Eosinophils # (Auto) 0.0, Basophils # (Auto) 0.0, Immature Granulocyte # (Auto) 0.1, Sodium Level 137, Potassium Level 4.6, Chloride Level 101, Carbon Dioxide Level 27, Anion Gap 9, Blood Urea Nitro gen 33H, Creatinine 1.12, Estimat Glomerular Filtration Rate 49, BUN/Creatinine Ratio 29, Glucose Level 233H, Calcium Level 9.1, Corrected Calcium 9.5, Total Bilirubin 0.3, Aspartate Amino Transf (AST/SGOT) 14, Alanine Aminotransferase (ALT/SGPT) 22, Alkaline Phosphatase 68, Total Protein 6.1L, Albumin 3.5 11/13/21 10:47: Glucometer 265H Microbiology 11/11/21 MRSA Screen - Final, Complete MRSA not isolated 11/09/21 Blood Culture - Preliminary, Resulted No growth Pending Labs Microbiology Date/Time Source Procedure Growth Status 11/11/21 11:30 Nasal MRSA Screen - Final MRSA not isolated Complete 11/09/21 17:10 Peripheral Lt Ac Blood Culture - Preliminary No growth Resulted 11/09/21 16:00 Port Not Otherwise Specified Blood Culture - Preliminary No growth Resulted Laboratory Tests 11/09/21 15:30: Influenza Type A (RT-PCR) Detected, Influenza Type B (RT-PCR) Not Detected, SARS-CoV-2 RNA (RT-PCR) Not Detected 11/09/21 16:00: White Blood Count 4.5, Red Blood Count 4.09, Hemoglobin 12.0, Hematocrit 40, Mean Corpuscular Volume 97, Mean Corpuscular Hemoglobin 29, Mean Corpuscular Hemoglobin Concent 30, Red Cell Distribution Width 14.9, Platelet Count 217, Mean Platelet Volume 9.5, Immature Granulocyte % (Auto) 2, Neutrophils (%) (Auto) 74, Lymphocytes (%) (Auto) 9, Monocytes (%) (Auto) 12, Eosinophils (%) (Auto) 3, Basophils (%) (Auto) 1, Neutrophils # (Auto) 3.3, Lymphocytes # (Auto) 0.4, Monocytes # (Auto) 0.5, Eosinophils # (Auto) 0.1, Basophils # (Auto) 0.0, Immature Granulocyte # (Auto) 0.1, Sodium Level 139, Potassium Level 3.9, Chloride Level 102, Carbon Dioxide Level 27, Anion Gap 10, Blood Urea Nitrogen 22, Creatinine 0.88, Estimat Glomerular Filtration Rate 65, BUN/Creatinine Ratio 25, Glucose Level 139, Lactic Acid Level 1.47, Calcium Level 8.8, Corrected Calcium 9.1, Total Bilirubin 0.4, Aspartate Amino Transf (AST/SGOT) 16, Alanine Aminotransferase (ALT/SGPT) 21, Alkaline Phosphatase 87, Total Protein 6.3, Albumin 3.6, Procalcitonin 0.06 11/09/21 16:02: Glucometer 128 11/09/21 20:30: Glucometer 247 11/10/21 06:07: Glucometer 228 11/10/21 11:46: Glucometer 233 11/10/21 16:17: Glucometer 226 11/10/21 16:35: White Blood Count 6.4, Red Blood Count 4.14, Hemoglobin 12.2, Hematocrit 39, Mean Corpuscular Volume 93, Mean Corpuscular Hemoglobin 30, Mean Corpuscular Hemoglobin Concent 32, Red Cell Distribution Width 15.0, Platelet Count 272, Mean Platelet Volume 9.6, Immature Granulocyte % (Auto) 1, Neutrophils (%) (Auto) 90, Lymphocytes (%) (Auto) 7, Monocytes (%) (Auto) 3, Eosinophils (%) (Auto) 0, Basophils (%) (Auto) 0, Neutrophils # (Auto) 5.7, Lymphocytes # (Auto) 0.4, Monocytes # (Auto) 0.2, Eosinophils # (Auto) 0.0, Basophils # (Auto) 0.0, Immature Granulocyte # (Auto) 0.0, Neutrophils % (Manual) 93, Lymphocytes % (Manual) 4, Monocytes % (Manual) 3, Blood Morphology Comment NORMAL, Sodium Level 135, Potassium Level 4.2, Chloride Level 100, Carbon Dioxide Level 22, Anion Gap 13, Blood Urea Nitrogen 21, Creatinine 1.08, Estimat Glomerular Filtration Rate 51, BUN/Creatinine Ratio 19, Glucose Level 253, Calcium Level 9.2, Corrected Calcium 9.4, Total Bilirubin 0.4, Aspartate Amino Transf (AST/SGOT) 17, Alanine Aminotransferase (ALT/SGPT) 22, Alkaline Phosphatase 80, Total Protein 6.8, Albumin 3.8 11/11/21 05:30: White Blood Count 10.0, Red Blood Count 4.07, Hemoglobin 12.1, Hematocrit 38, Mean Corpuscular Volume 93, Mean Corpuscular Hemoglobin 30, Mean Corpuscular Hemoglobin Concent 32, Red Cell Distribution Width 15.1, Platelet Count 284, Mean Platelet Volume 9.5, Immature Granulocyte % (Auto) 1, Neutrophils (%) (Auto) 91, Lymphocytes (%) (Auto) 4, Monocytes (%) (Auto) 4, Eosinophils (%) (Auto) 0, Basophils (%) (Auto) 0, Neutrophils # (Auto) 9.1, Lymphocytes # (Auto) 0.4, Monocytes # (Auto) 0.4, Eosinophils # (Auto) 0.0, Basophils # (Auto) 0.0, Immature Granulocyte # (Auto) 0.1, Sodium Level 137, Potassium Level 4.0, Chloride Level 102, Carbon Dioxide Level 24, Anion Gap 11, Blood Urea Nitrogen 25, Creatinine 0.94, Estimat Glomerular Filtration Rate 60, BUN/Creatinine Ratio 27, Glucose Level 249, Calcium Level 8.9, Corrected Calcium 9.1, Total Bilirubin 0.3, Aspartate Amino Transf (AST/SGOT) 13, Alanine Aminotransferase (ALT/SGPT) 20, Alkaline Phosphatase 78, Total Protein 6.4, Albumin 3.7 11/11/21 05:44: Glucometer 233 11/11/21 11:31: Glucometer 254 11/11/21 20:47: Glucometer 261 11/12/21 04:20: White Blood Count 12.1, Red Blood Count 4.03, Hemoglobin 11.9, Hematocrit 38, Mean Corpuscular Volume 93, Mean Corpuscular Hemoglobin 30, Mean Corpuscular Hemoglobin Concent 32, Red Cell Distribution Width 15.2, Platelet Count 300, Mean Platelet Volume 9.4, Immature Granulocyte % (Auto) 1, Neutrophils (%) (Auto) 91, Lymphocytes (%) (Auto) 5, Monocytes (%) (Auto) 3, Eosinophils (%) (Auto) 0, Basophils (%) (Auto) 0, Neutrophils # (Auto) 11.0, Lymphocytes # (Auto) 0.6, Monocytes # (Auto) 0.4, Eosinophils # (Auto) 0.0, Basophils # (Auto) 0.0, Immature Granulocyte # (Auto) 0.1, Sodium Level 136, Potassium Level 4.5, Chloride Level 99, Carbon Dioxide Level 25, Anion Gap 12, Blood Urea Nitrogen 29, Creatinine 1.07, Estimat Glomerular Filtration Rate 52, BUN/Creatinine Ratio 27, Glucose Level 261, Calcium Level 9.0, Corrected Calcium 9.3, Total Bilirubin 0.3, Aspartate Amino Transf (AST/SGOT) 13, Alanine Aminotransferase (ALT/SGPT) 19, Alkaline Phosphatase 73, Total Protein 6.3, Albumin 3.6 11/12/21 05:30: Procalcitonin 0.02 11/12/21 05:42: Glucometer 262 11/12/21 11:11: Glucometer 258 11/12/21 16:34: Glucometer 225 11/12/21 21:44: Glucometer 334 11/13/21 04:55: White Blood Count 10.4, Red Blood Count 4.07, Hemoglobin 11.9, Hematocrit 38, Mean Corpuscular Volume 92, Mean Corpuscular Hemoglobin 29, Mean Corpuscular Hemoglobin Concent 32, Red Cell Distribution Width 15.3, Platelet Count 297, Mean Platelet Volume 9.6, Immature Granulocyte % (Auto) 1, Neutrophils (%) (Auto) 89, Lymphocytes (%) (Auto) 6, Monocytes (%) (Auto) 4, Eosinophils (%) (Auto) 0, Basophils (%) (Auto) 0, Neutrophils # (Auto) 9.2, Lymphocytes # (Auto) 0.7, Monocytes # (Auto) 0.4, Eosinophils # (Auto) 0.0, Basophils # (Auto) 0.0, Immature Granulocyte # (Auto) 0.1, Sodium Level 137, Potassium Level 4.6, Chloride Level 101, Carbon Dioxide Level 27, Anion Gap 9, Blood Urea Nitrogen 33, Creatinine 1.12, Estimat Glomerular Filtration Rate 49, BUN/Creatinine Ratio 29, Glucose Level 233, Calcium Level 9.1, Corrected Calcium 9.5, Total Bilirubin 0.3, Aspartate Amino Transf (AST/SGOT) 14, Alanine Aminotransferase (ALT/SGPT) 22, Alkaline Phosphatase 68, Total Protein 6.1, Albumin 3.5 11/13/21 10:47: Glucometer 265 Discharge Home Medications: Active Scripts Active Iprat-Albut 0.5-3(2.5) mg/3 ml (Ipratropium/Albuterol Sulfate) 3 Ml Ampul.neb 3 Ml INH RTQ4HR Doxycycline Hyclate 100 Mg Tablet 100 Mg PO BID Prednisone 10 Mg Tab.ds.pk 10 Mg PO DAILY Take 6 tabs(60mg)daily,decrease by 1 tab(10MG)daily. Nystatin 15 Gm Cream..g. 0 Gm TP TID Lotrimin AF (Miconazole Nitrate) 90 Gm Powder 0 Gm TOP BID Tamiflu (Oseltamivir Phosphate) 75 Mg Cap 75 Mg PO BID Doxycycline Hyclate 100 Mg Tablet 100 Mg PO BID@07,17 Reported Calcium Carbonate 600 Mg Tablet 1,200 Mg PO HS Vitamin D3 (Cholecalciferol (Vitamin D3)) 25 Mcg Capsule 25 Mcg PO DAILY Fluticasone Propionate 16 Gm Zortman.susp 1 Zortman NSEACH DAILY Alprazolam 0.5 Mg Tablet 0.5 Mg PO Q8H PRN Glyburide 1.25 Mg Tablet 2.5 Mg PO DAILY TAKES 2 (1.25MG) TABS Imuran (Azathioprine) 50 Mg Tablet 100 Mg PO BID TAKES 2 (50MG) TABS Spiriva (Tiotropium [place]) 1 Inh Aerp 1 Puff INH DAILY Venlafaxine HCl ER (Venlafaxine HCl) 75 Mg Cap.er.24h 75 Mg PO DAILY Ezetimibe 10 Mg Tablet 10 Mg PO DAILY Breo Ellipta 200-25 Mcg INH (Fluticasone/Vilanterol) 1 Each Blst.w.dev 1 Each IH DAILY Melatonin 10 Mg Tablet 20 Mg PO HS TAKES 2 (10MG) TABS Eliquis (Apixaban) 5 Mg Tablet 5 Mg PO BID Potassium Chloride 20 Meq Tablet.er 20 Meq PO BID Furosemide 40 Mg Tablet 40 Mg PO DAILY PRN All Day Allergy (Cetirizine HCl) 10 Mg Tablet 20 Mg PO DAILY TAKES 2 (10MG) TABS Losartan Potassium 50 Mg Tablet 50 Mg PO DAILY Citalopram HBr (Citalopram Hydrobromide) 20 Mg Tablet 20 Mg PO DAILY Pantoprazole Sodium 40 Mg Tablet.dr 40 Mg PO DAILY LAST FILLED 09-07-2021 #30 DAY SUPPLY Atorvastatin Calcium 20 Mg Tablet 20 Mg PO DAILY Triamterene-Hctz 37.5-25 mg Cp (Triamterene/Hydrochlorothiazid) 1 Each Capsule 1 Cap PO DAILY Montelukast Sodium 10 Mg Tablet 10 Mg PO DAILY Clonidine HCl 0.1 Mg Tablet 0.1 Mg PO BID Levothyroxine Sodium 50 Mcg Tablet 50 Mcg PO DAILY Instructions to patient/family Please see electronic discharge instructions given to patient. Diagnosis/Problems Diagnosis/Problems (1) Influenza A (2) Wheezing (3) Myasthenia gravis (4) Morbid obesity Status: Acute (5) Diabetes mellitus Status: Chronic (6) Rheumatoid arthritis Status: Chronic FABIENNE JIMENEZ DO Nov 13, 2021 11:21
--- NOTE | 2021-11-13 12:56 | Progress Note ---
ELIZABETH BRUNNER 11/13/21 1256: Progress Note Patient is a 61 year old female who was admitted to [facility] on 11/[address] Jimenez's clinic for SOB, fever, cough, fatigue, HELLER, and weakness. Patient was found to be influenza positive. Patient's initial chest x-ray was negative. Patient's symptoms started on the night of the . Started on Tamiflu, Doxycycline, and supportive care. On 11/11, Patient became markedly more wheezy, so patient was began on nebulizer breathing treatments. Initial blood cultures came back negative for any growth. On 11/12, Patient showed clinical improvement, but still had some slight wheezing. Planned on discharge on 11/13 if patient's condition continued to improve. On 11/13, patient's clinical condition had marked improvement, and she was deemed okay to discharge home. Patient to continue taking tamiflu, duoneb breathing treatments, doxycyline for MRSA pneumonia prophylaxis, and a prednisone taper. To follow-up with PCP, Dr. Jimenez, next week. All medications called in to patient's pharmacy for pick-up. SHAYLA JIMENEZ DO 11/13/21 1610: Supervisory-Addendum Brief Verification & Attestation Participated in pt care: history, MDM, physical Personally performed: exam, history, MDM, supervision of care Care discussed with: Medical Student Procedures: n/a Results interpretation: Verified all documentation Verification and Attestation of Medical Student E/M Service A medical student performed and documented this service in my presence. I reviewed and verified all information documented by the medical student and made modifications to such information, when appropriate. I personally performed the physical exam and medical decision making. Shayla Jimenez Nov 13, 2021,16:10 ELIZABETH BRUNNER Nov 13, 2021 12:56 SHAYLA JIMENEZ DO Nov 13, 2021 16:10
[2021-11-13 13:36] VITALS: BP 150/72
== END 2021-11-13 13:50 | disposition home or self-care (01) | DRG 193 ==
LOC: 4TH 14:40
PROVIDERS: ADMIT Internal Medicine; ATTEND Internal Medicine
DX: J10.1 Influenza due to other identified influenza virus with other respiratory manifestations (principal); J96.21 Acute and chronic respiratory failure with hypoxia; Z68.44 Body mass index [BMI] 60.0-69.9, adult; U09.9 Post COVID-19 condition, unspecified; Z86.711 Personal history of pulmonary embolism; Z86.718 Personal history of other venous thrombosis and embolism; E78.00 Pure hypercholesterolemia, unspecified; I10 Essential (primary) hypertension; M06.9 Rheumatoid arthritis, unspecified; G89.29 Other chronic pain; M54.9 Dorsalgia, unspecified; E03.9 Hypothyroidism, unspecified; E11.40 Type 2 diabetes mellitus with diabetic neuropathy, unspecified; F41.9 Anxiety disorder, unspecified; F32.A Depression, unspecified; J45.909 Unspecified asthma, uncomplicated; G70.00 Myasthenia gravis without (acute) exacerbation; Z99.81 Dependence on supplemental oxygen; E66.01 Morbid (severe) obesity due to excess calories; Z20.822 Contact with and (suspected) exposure to COVID-19
CPT/HCPCS: 36410; 36415; 71045; 76937; 80053; 82947; 83605; 84145; 85007; 85025; 85027; 87040; 87081; 87636; 94640; 94664; 94760

== ENCOUNTER 2021-12-28 12:45 | Inpatient (IN) | payer BC ==
[~2021-12-28] VITALS: Ht 167.6 cm; Wt 182.1 kg
[~2021-12-28 12:45] MED LIST changes: +MICO90PO TOP; +NYST15CR TP; +OSLT75C PO
--- NOTE | 2021-12-28 13:10 | ED Respiratory ---
General Stated Complaint: RESP. DISTRESS Source: patient, EMS History of Present Illness Date Seen by Provider: Dec 28, 2021 Time Seen by Provider: 12:48 Initial Comments PT ARRIVES VIA EMS FROM HOME AROUND 1250 TODAY, SHE GOT CHOKED ON A CHEESEBURGER, AND HAS BEEN HAVING DIFFICULTY BREATHING SINCE THEN PT IS RECEIVING A DUONEB TREATMENT BY EMS ON ARRIVAL EMS STATE O2 SAT 87% ON 4L/NC PT HAD COVID-19 AND A P.E. IN SEPTEMBER OF 2020--WAS ON BIPAP FOR ABOUT 3 WEEKS, AND HAS HAD CONTINUED RESPIRATORY PROBLEMS SINCE THEN, AND NOW IS ON O2 AT 2- 3L/NC CONTINUOUSLY PT HAS HAD COVID-19 VACCINES X 3, AND FLU VACCINE PT STATES SHE WAS FEELING FINE THIS AM, AND WAS FINE UNTIL SHE CHOKED ON THE CHEESEBURGER EMS REPORT THAT PT WAS COUGHING UP PIECES OF THE CHEESEBURGER AT THE SCENE. PCP: DR. ZAMORA--ROUTINE EXAM IN THE LAST COUPLE OF WEEKS Allergies and Home Medications Allergies Coded Allergies: adhesive tape (Verified Allergy, Intermediate, 10/15/21) BLISTERS AND RAW SKIN almond (Verified Allergy, Intermediate, Abdominal Pain, 10/15/21) Pt states having pain when she eat them. amlodipine (Verified Allergy, Unknown, 10/15/21) erythromycin base (Verified Allergy, Unknown, 10/15/21) Patient Home Medication List Alprazolam (Alprazolam) 0.5 Mg Tablet, 0.5 MG PO Q8H PRN for ANXIETY, (Reported) Entered as Reported by: NITO BREWER on 10/16/21 1125 Apixaban (Eliquis) 5 Mg Tablet, 5 MG PO BID, (Reported) Entered as Reported by: NITO BREWER on 01/27/21 0947 Atorvastatin Calcium (Atorvastatin Calcium) 20 Mg Tablet, 20 MG PO DAILY, (Reported) Entered as Reported by: NE GARRETT on 03/31/18 0950 Azathioprine (Imuran) 50 Mg Tablet, 100 MG PO BID, (Reported) Entered as Reported by: NITO BREWER on 10/16/21 1125 Calcium Carbonate (Calcium Carbonate) 600 Mg Tablet, 1,200 MG PO HS, (Reported) Entered as Reported by: NITO BREWER on 10/16/21 1135 Cetirizine HCl (All Day Allergy) 10 Mg Tablet, 20 MG PO DAILY, (Reported) Entered as Reported by: NITO BREWER on 10/06/20 1532 Cholecalciferol (Vitamin D3) (Vitamin D3) 25 Mcg Capsule, 25 MCG PO DAILY, (Reported) Entered as Reported by: NITO BREWER on 10/16/21 112 Citalopram Hydrobromide (Citalopram HBr) 20 Mg Tablet, 20 MG PO DAILY, (Reported) Entered as Reported by: NITO BREWER on 10/06/20 1530 Clonidine HCl (Clonidine HCl) 0.1 Mg Tablet, 0.1 MG PO BID, (Reported) Entered as Reported by: VIVEK ROJSA on 07/31/15 1558 Doxycycline Hyclate (Doxycycline Hyclate) 100 Mg Tablet, 100 MG PO BID@ Prescribed by: FABIENNE ZAMORA on 11/13/21 112 Doxycycline Hyclate (Doxycycline Hyclate) 100 Mg Tablet, 100 MG PO BID Prescribed by: FABIENNE ZAMORA on 11/13/21 112 Ezetimibe (Ezetimibe) 10 Mg Tablet, 10 MG PO DAILY, (Reported) Entered as Reported by: NITO BREWER on 06/05/21 1345 Fluticasone Propionate (Fluticasone Propionate) 16 Gm [place].susp, 1 SPRAY NSEACH DAILY, (Reported) Entered as Reported by: NITO BREWER on 10/16/21 112 Fluticasone/Vilanterol (Breo Ellipta 200-25 Mcg INH) 1 Each Blst.w.dev, 1 EACH IH DAILY, (Reported) Entered as Reported by: NITO BREWER on 04/29/21 1240 Furosemide (Furosemide) 40 Mg Tablet, 40 MG PO DAILY PRN for FLUID RETENTION, (Reported) Entered as Reported by: MARIIA ALEJANDRO on 12/25/20 1838 Glyburide (Glyburide) 1.25 Mg Tablet, 2.5 MG PO DAILY, (Reported) Entered as Reported by: NITO BREWER on 10/16/21 112 Ipratropium/Albuterol Sulfate (Iprat-Albut 0.5-3(2.5) mg/3 ml) 3 Ml Ampul.neb, 3 ML INH RTQ4HR Prescribed by: FABIENNE ZAMORA on 11/13/21 1120 Levothyroxine Sodium (Levothyroxine Sodium) 50 Mcg Tablet, 50 MCG PO DAILY, (Reported) Entered as Reported by: VIVEK ROJAS on 07/31/15 1558 Losartan Potassium (Losartan Potassium) 50 Mg Tablet, 50 MG PO DAILY, (Reported) Entered as Reported by: NITO BREWER on 10/06/20 1530 Melatonin (Melatonin) 10 Mg Tablet, 20 MG PO HS, (Reported) Entered as Reported by: NITO BREWER on 04/29/21 1240 Miconazole Nitrate (Lotrimin AF) 90 Gm Powder, 0 GM TOP BID Prescribed by: FABIENNE ZAMORA on 11/13/21 1120 Montelukast Sodium (Montelukast Sodium) 10 Mg Tablet, 10 MG PO DAILY, (Reported) Entered as Reported by: NE GARRETT on 03/31/18 0950 Nystatin (Nystatin) 15 Gm Cream..g., 0 GM TP TID Prescribed by: FABIENNE ZAMORA on 11/13/21 112 Oseltamivir Phosphate (Tamiflu) 75 Mg Cap, 75 MG PO BID Prescribed by: FABIENNE ZAMORA on 11/13/21 112 Pantoprazole Sodium (Pantoprazole Sodium) 40 Mg Tablet.dr, 40 MG PO DAILY, (Reported) Entered as Reported by: NITO BREWER on 08/12/20 0919 Potassium Chloride (Potassium Chloride) 20 Meq Tablet.er, 20 MEQ PO BID, (Reported) Entered as Reported by: NITO BREWER on 01/27/21 0947 Prednisone (Prednisone) 10 Mg Tab.ds.pk, 10 MG PO DAILY Prescribed by: FABIENNE ZAMORA on 11/13/21 112 Tiotropium [place] (Spiriva) 1 Inh Aerp, 1 PUFF INH DAILY, (Reported) Entered as Reported by: NITO BREWER on 10/16/21 1125 Triamterene/Hydrochlorothiazid (Triamterene-Hctz 37.5-25 mg Cp) 1 Each Capsule, 1 CAP PO DAILY, (Reported) Entered as Reported by: NE GARRETT on 03/31/18 0950 Venlafaxine HCl (Venlafaxine HCl ER) 75 Mg Cap.er.24h, 75 MG PO DAILY, (Reported) Entered as Reported by: NITO BREWER on 06/05/21 1345 Review of Systems Review of Systems Constitutional: no symptoms reported Respiratory: see HPI, cough, short of breath Cardiovascular: no symptoms reported; No chest pain Gastrointestinal: no symptoms reported Genitourinary: no symptoms reported Musculoskeletal: no symptoms reported Skin: no symptoms reported Psychiatric/Neurological: No Symptoms Reported Past Zfcypck-Okqebg-Sargbw Hx Immunizations Up To Date Tetanus Booster (TDap): Less than 5yrs PED Vaccines UTD: Yes First/Initial COVID19 Vaccinat: 2020 Second COVID19 Vaccination Yousuf: february 2021 Third COVID19 Vaccination Date: january 2021 Seasonal Allergies Seasonal Allergies: Yes Past Medical History Surgery/Hospitalization HX: heart cath- April 2021 Surgeries: Yes (FOOT SURGERY,LEFT LUMPECTOMY, R KNEE MINISCUS REPAIR) Abdominal, Cardiac, Orthopedic Respiratory: Yes (CHRONIC COUGH; P.E. WITH COVID-19 INFECTION 09/2020. ) Pneumonia, Sleep Apnea Currently Using CPAP: Yes Currently Using BIPAP: No Cardiac: Yes Chronic Edema/Swelling, High Cholesterol, Hypertension Neurological: Yes (MG) Neuropathy 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 Disorders: No INFLATED PAD BUFFER History: Menopausal Sexually Transmitted Disease: No Genitourinary: Yes Bladder Infection Gastrointestinal: No Gastroesophageal Reflux Musculoskeletal: Yes Rheumatoid Arthritis Endocrine: Yes (OBESITY; MYASTHENIA GRAVIS) Hypothyroidsim, Diabetes, Non-Insulin dep HEENT: Yes Double Vision Loss of Vision: Denies Hearing Impairment: Denies Cancer: No Psychosocial: Yes Anxiety, Depression Integumentary: No Blood Disorders: No Adverse Reaction/Blood Tranf: No Family Medical History Alcoholism G8 BROTHER G8 SISTER Alzheimer's disease 19 MOTHER Arthritis 19 FATHER Asthma G8 SISTER Cardiovascular disease 19 FATHER Cataracts 19 FATHER Coronary thrombosis 19 FATHER Deafness or hearing loss SON Diabetes mellitus 19 FATHER G8 SISTER G8 SISTER Drug abuse G8 SISTER Hypertension 19 FATHER G8 SISTER G8 SISTER Kidney disease 19 FATHER Respiratory disorder G8 SISTER G8 SISTER Seizure disorder SON Severe allergy SON Heart Disease, Diabetes, Hypertension Physical Exam Capillary Refill : Height: 5'6.00" Weight: 297lbs. 0.0oz. [phone]; 62.01 BMI Method:Stated Progress/Results/Core Measures Suspected Sepsis SIRS Temperature: Pulse: Respiratory Rate: Blood Pressure / Mean: Results/Orders Lab Results Laboratory Tests Test 12/28/21 12:56 Range/Units My Orders Orders - VIRGINIA NAJERA DO Ed Iv/Invasive Line Start (12/28/21 12:51) Ekg Tracing (12/28/21 12:51) O2 (12/28/21 12:51) Monitor-Rhythm Ecg Trace Only (12/28/21 12:51) Straight Cath For Spec.-Adult (12/28/21 12:51) Chest 1 View, Ap/Pa Only (12/28/21 12:51) Bnp Snáchez (12/28/21 12:51) Cbc With Automated Diff (12/28/21 12:51) Comprehensive Metabolic Panel (12/28/21 12:51) Creatine Kinase (12/28/21 12:51) Creatine Kinase Mb (12/28/21 12:51) Hs C Reactive Protein (12/28/21 12:51) Fibrin Degradation Products (12/28/21 12:51) Magnesium (12/28/21 12:51) Protime With Inr (12/28/21 12:51) Partial Thromboplastin Time (12/28/21 12:51) Ua Culture If Indicated (12/28/21 12:51) Erythrocyte Sedimentation Rate (12/28/21 12:51) Myoglobin Serum (12/28/21 12:51) Troponin I Sánchez (12/28/21 12:51) Procalcitonin (Pct) (12/28/21 12:51) LDH (12/28/21 12:51) Blood Culture (12/28/21 12:51) Covid 19 Inhouse Test (12/28/21 12:51) Ed Iv/Invasive Line Start (12/28/21 12:51) Influenza A And B By Pcr (12/28/21 12:51) Isolation Central Supply Req (12/28/21 12:51) Arterial Blood Gas (12/28/21 12:51) Methylprednisolone Sod Succ (Solu-Medrol (12/28/21 13:15) Albuterol/Ipra Inhalation Soln (Duoneb I (12/28/21 13:15) Budesonide Inhalation Solution (Pulmicor (12/28/21 13:15) Rt Request For Service (12/28/21 13:01) Svn Small Volume Nebulizer (12/28/21 13:01) Svn Small Volume Nebulizer (12/28/21 13:01) Vital Signs/I&O Capillary Refill : Progress Note : Progress Note PPE WORN COVID AND FLU TESTING DONE PLACED IN BIPAP ON ARRIVAL, FOLLOWED BY IN-LINE NEB TREATMENTS ALSO GIVEN IV SOLU-MEDROL ECG Initial ECG Impression Date: Dec 28, 2021 Initial ECG Impression Time: 12:51 Initial ECG Rate: 106 Initial ECG Rhythm: S.Tach Departure Departure-Patient Inst. Referrals: FABIENNE ZAMORA DO (PCP/Family) Primary Care Physician VIRGINIA NAJERA DO Dec 28, 2021 13:10
[2021-12-28] MEDS ORDERED: RT-ALBUTEROL/IPRATROPIUM 3 ML (DUONEB) VIAL INH ONE (13:15)
[2021-12-28] MEDS ORDERED: RT-BUDESONIDE NEBS 0.5 MG/2ML (PULMICORT) AMP INH ONE (13:15)
[2021-12-28] MEDS ORDERED: methylPREDNISolone 125 MG (Solu-MEDROL) VIAL IVP ONE (13:15)
[2021-12-28 13:18] LABS: BASOPHILS % (AUTO) 1 % (0-10); EOSINOPHILS # (AUTO) 0.2 10^3/uL (0.0-0.3); EOSINOPHILS % (AUTO) 3 % (0-10); HEMATOCRIT 38 % (35-52); HEMOGLOBIN 11.7 g/dL (11.5-16.0); LYMPHOCYTES # (AUTO) 1.4 10^3/uL (1.0-4.0); LYMPHOCYTES % (AUTO) 21 % (12-44); MEAN CORPUSCULAR HEMOGLOBIN 30 pg (25-34); MEAN CORPUSCULAR HGB CONC 31 g/dL (32-36); MEAN CORPUSCULAR VOLUME 100 fL (80-99); MEAN PLATELET VOLUME 9.9 fL (9.0-12.2); MONOCYTES # (AUTO) 0.4 10^3/uL (0.0-1.0); MONOCYTES % (AUTO) 7 % (0-12); NEUTROPHILS # (AUTO) 4.4 10^3/uL (1.8-7.8); NEUTROPHILS % (AUTO) 67 % (42-75); PLATELET COUNT 237 10^3/uL (130-400); WHITE BLOOD COUNT 6.5 10^3/uL (4.3-11.0)
[2021-12-28 13:24] VITALS: BP 176/87
[2021-12-28 13:31] LABS: FIBRIN DEGRADATION PRODUCTS 0.4 UG/ML (0.00-0.49); PROTHROMBIN TIME PATIENT 13.4 SEC (12.2-14.7)
[2021-12-28 13:32] LABS: ALBUMIN 3.8 GM/DL (3.2-4.5); CHLORIDE 105 MMOL/L (98-107); POTASSIUM 4.2 MMOL/L (3.6-5.0); SODIUM 141 MMOL/L (135-145)
[2021-12-28 13:33] LABS: CALCIUM 9.4 MG/DL (8.5-10.1)
[2021-12-28 13:34] LABS: GLUCOSE 190 MG/DL (70-105); TOTAL PROTEIN 6.7 GM/DL (6.4-8.2)
[2021-12-28 13:35] LABS: CARBON DIOXIDE 22 MMOL/L (21-32)
[2021-12-28 13:36] LABS: BILIRUBIN,TOTAL 0.5 MG/DL (0.1-1.0)
[2021-12-28 13:37] LABS: ALKALINE PHOSPHATASE 76 U/L (40-136)
[2021-12-28 13:38] LABS: CREATININE SERUM 0.91 MG/DL (0.60-1.30); GFR ESTIMATED 71
[2021-12-28 13:39] LABS: BUN/CREATININE RATIO 18
[2021-12-28 13:40] LABS: MAGNESIUM 1.8 MG/DL (1.6-2.4)
[2021-12-28 13:41] LABS: ABG BASE EXCESS 3.8 MMOL/L (-2.5-2.5); ABG OXYGEN SATURATION 99 % (94-100); ABG PCO2 45 MMHG (35-45); ABG PH 7.41 (7.37-7.43); ABG PO2 112 MMHG (79-93); ABG TCO2 29.6 MMOL/L (21.0-31.0)
[2021-12-28 13:41] LABS: ALANINE AMINOTRANSFERASE 18 U/L (0-55); CREATINE KINASE 74 U/L (29-168)
[2021-12-28 13:47] LABS: ERYTHROCYTE SEDIMENTATION RATE 34 MM/HR (0-30)
[2021-12-28 13:47] LABS: ALLENS TEST YES-POS; INSPIRED O2 40%; PATIENT TEMP 98.4; VENTILATOR NO
[2021-12-28 13:48] LABS: CREATINE KINASE MB 0.6 NG/ML (<6.6)
--- NOTE | 2021-12-28 14:00 | Diagnostic Imaging Report ---
HISTORY: Dyspnea COMPARISON: 11/09/2021 TECHNIQUE: Frontal view of the chest. FINDINGS: Lung volumes are normal. There is increased airspace opacity in the right upper lobe and the right lung base. Overall haziness of the lungs is likely due to overlying soft tissues. There is no large effusion or pneumothorax. The cardiac silhouette is normal in size. IMPRESSION: 1. Increased airspace opacity in the right upper lobe and right lung base, may represent infiltrate in the appropriate clinical setting. Dictated by: Dictated on workstation # [id number]
[2021-12-28] MEDS ORDERED: PIPERACILLIN SODIUM/TAZOBACTAM 4.5 GM in NS (IVPB) 100 ML IV ONE (14:15)
[2021-12-28 14:17] LABS: BILIRUBIN,URINE NEGATIVE (NEGATIVE); CLARITY,URINE CLEAR; COLOR,URINE YELLOW; GLUCOSE, URINE (UA) 1+ (NEGATIVE); KETONES,URINE NEGATIVE (NEGATIVE); LEUKOCYTE ESTERASE ,URINE NEGATIVE (NEGATIVE); NITRITE,URINE POSITIVE (NEGATIVE); PROTEIN,URINE NEGATIVE (NEGATIVE)
--- NOTE | 2021-12-28 14:32 | Diagnostic Imaging Report ---
EXAMINATION: CT chest without contrast. TECHNIQUE: Multiple contiguous axial images were obtained through the chest without the use of intravenous contrast. All CT scans use one or more of the following dose optimizing techniques: Automated exposure control, MA and/or KvP adjustment based on patient size and exam type or iterative reconstruction. HISTORY: Aspiration. COMPARISON: 10/05/2020. FINDINGS: There is no edema or pneumonia. No pleural effusion. No pneumothorax. No suspicious nodules. There are mild areas of fibrosis and subpleural bands. There is no axillary or supraclavicular lymphadenopathy. There is no mediastinal lymphadenopathy. Heart size is normal. There are mild coronary artery calcifications. No pericardial effusion. Aorta is normal in caliber. Limited views of the upper abdomen are unremarkable. There are no suspicious osseous lesions. IMPRESSION: 1. No evidence for aspiration. 2. Mild interstitial fibrosis. Dictated by: Dictated on workstation # [id number]
[2021-12-28 14:38] LABS: BACTERIA,URINE LARGE /HPF
[2021-12-28] MEDS ORDERED: ACETAMINOPHEN 325 MG TABLET PO PRN (15:45)
[2021-12-28] MEDS ORDERED: polyethylene glycoL POWDER 17 GM (MIRALAX) PACK PO PRN (15:45)
[2021-12-28] MEDS ORDERED: BISACODYL 10 MG SUPP (DULCOLAX) PR PRN (15:45)
[2021-12-28] MEDS ORDERED: CALCIUM CARBONATE 500 MG (TUMS) TAB.CHEW PO PRN (15:45)
[2021-12-28] MEDS ORDERED: MILK OF MAGNESIA 400 MG/5 ML 30 ML UDC PO PRN (15:45)
[2021-12-28] MEDS ORDERED: ONDANSETRON 4 MG (ZOFRAN) ORAL DISSOLVE TAB PO PRN (15:45)
[2021-12-28] MEDS ORDERED: LACTULOSE SYRUP 10GM/15ML (ENULOSE) 30ML UDC PO PRN (15:45)
[2021-12-28] MEDS ORDERED: ONDANSETRON 4 MG/2 ML (SDV) Z0FRAN IV PRN (15:45)
[2021-12-28] MEDS ORDERED: MELATONIN 3 MG TABLET PO PRN (15:45)
[2021-12-28] MEDS ORDERED: ANTACID SUSP 30 ML UDC (MYLANTA) PO PRN (15:45)
[2021-12-28] MEDS ORDERED: morphine INJ 4 MG/ML 1 ML (VIAL/SYRINGE) IV PRN (15:45)
[2021-12-28] MEDS ORDERED: NS IV 1000 ML 1,000 ML IV SCH (15:45)
[2021-12-28] MEDS ORDERED: NALOXONE 0.4 MG/ML 1 ML (NARCAN) VIAL IV PRN (15:45)
[2021-12-28] MEDS ORDERED: diphenhydrAMINE 25 MG TAB (BENADRYL) PO PRN (15:45)
[2021-12-28] MEDS ORDERED: diphenhydrAMINE 50 MG/ML INJ (BENADRYL) IVP PRN (15:45)
--- NOTE | 2021-12-28 15:45 | History & Physical ---
DOMINIK QUEVEDO 12/28/21 1545: History of Present Illness History of Present Illness Reason for visit/HPI Chief complaint: Roselia is a 61yo F who was brought to the ER by EMS today after chocking on her lunch. She was eating a burger when she chocked on it and she started coughing. She was not able to catch her breath while she was coughing the food up. When EMS arrived they put her on 4L of oxygen and her oxygen saturation improved to 87%. She was also given Ipratropium/albuterol, budesonide, and methylprednisolone in the ambulance. When she got to the ER she was put on BIPAP and treated with albuterol. Her oxygen saturation improved to and she came off of the BIPAP. Lactate and ESR were elevated. Urine was positive for nitrites. ABG was 7.41/45/112. She tested negative for COVID and Influenza. An X-ray and CT did not show any concerning findings and ruled out aspiration. HPI: PMH includes diabetes, hypertension, COPD, hypothyroidism, high cholesterol, anxiety, RALPH with CPAP, neuropathy, is on 2-3L of oxygen at home, GERD, and rheumatoid arthritis. Patient had COVID and a PE back in 2019 and since then she has been on home oxygen. Surgical history includes having heart catheterization done and repair of the meniscus in her right knee. 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 She denies any tobacco use, drinking alcohol, or illicit drug use. Patient is back to her baseline oxygen of 3L during the interview. Denies being in any pain. She states that she had a fever yesterday of 101 F and has felt congested the past 2 days. She says she has not had an episode of hypoxia like this before. Date of Admission Dec 28, 2021 at 14:20 Date Seen by a Provider: Dec 28, 2021 Time Seen by a Provider: 15:00 I consulted on this patient on 12/28/21 15:31 Attending Physician Shayla Zamora DO Admitting Physician Shayla Zamora DO Consult Allergies and Home Medications Allergies Coded Allergies: adhesive tape (Verified Allergy, Intermediate, 10/15/21) BLISTERS AND RAW SKIN almond (Verified Allergy, Intermediate, Abdominal Pain, 10/15/21) Pt states having pain when she eat them. amlodipine (Verified Allergy, Unknown, 10/15/21) erythromycin base (Verified Allergy, Unknown, 10/15/21) Patient Home Medication List Alprazolam (Alprazolam) 0.5 Mg Tablet, 0.5 MG PO Q8H PRN for ANXIETY, (Reported) Entered as Reported by: NITO BREWER on 10/16/21 1125 Last Action: Continued Apixaban (Eliquis) 5 Mg Tablet, 5 MG PO BID, (Reported) Entered as Reported by: NITO BREWER on 01/27/21 0947 Last Action: Held Atorvastatin Calcium (Atorvastatin Calcium) 20 Mg Tablet, 20 MG PO DAILY, (Reported) Entered as Reported by: NE GARRETT on 03/31/18 0950 Last Action: Continued Azathioprine (Imuran) 50 Mg Tablet, 100 MG PO BID, (Reported) Entered as Reported by: NITO BREWER on 10/16/21 1125 Last Action: Converted Calcium Carbonate (Calcium Carbonate) 600 Mg Tablet, 1,200 MG PO HS, (Reported) Entered as Reported by: NITO BREWER on 10/16/21 1135 Last Action: Continued Cetirizine HCl (All Day Allergy) 10 Mg Tablet, 20 MG PO DAILY, (Reported) Entered as Reported by: NITO BREWER on 10/06/20 1532 Last Action: Converted Cholecalciferol (Vitamin D3) (Vitamin D3) 25 Mcg Capsule, 25 MCG PO DAILY, (Reported) Entered as Reported by: NITO BREWER on 10/16/21 1125 Last Action: Converted Citalopram Hydrobromide (Citalopram HBr) 20 Mg Tablet, 20 MG PO DAILY, (Reported) Entered as Reported by: NITO BREWER on 10/06/20 1530 Last Action: Continued Clonidine HCl (Clonidine HCl) 0.1 Mg Tablet, 0.1 MG PO BID, (Reported) Entered as Reported by: VIVEK ORJAS on 07/31/15 1558 Last Action: Continued Doxycycline Hyclate (Doxycycline Hyclate) 100 Mg Tablet, 100 MG PO BID@ Prescribed by: SHAYLA ZAMOAR on 11/13/21 1120 Last Action: Held Doxycycline Hyclate (Doxycycline Hyclate) 100 Mg Tablet, 100 MG PO BID Prescribed by: SHAYLA ZAMORA on 11/13/211119 Last Action: Held Ezetimibe (Ezetimibe) 10 Mg Tablet, 10 MG PO DAILY, (Reported) Entered as Reported by: NITO BREWER on 06/05/21 134 Last Action: Continued Fluticasone Propionate (Fluticasone Propionate) 16 Gm [place].susp, 1 SPRAY NSEACH DAILY, (Reported) Entered as Reported by: NITO BREWER on 10/16/211124 Last Action: Continued Fluticasone/Vilanterol (Breo Ellipta 200-25 Mcg INH) 1 Each Blst.w.dev, 1 EACH IH DAILY, (Reported) Entered as Reported by: NITO BREWER on 04/29/21 124 Last Action: Continued Furosemide (Furosemide) 40 Mg Tablet, 40 MG PO DAILY PRN for FLUID RETENTION, (Reported) Entered as Reported by: MARIIA ALEJANDRO on 12/25/20 1838 Last Action: Continued Glyburide (Glyburide) 1.25 Mg Tablet, 2.5 MG PO DAILY, (Reported) Entered as Reported by: NITO BREWER on 10/16/211124 Last Action: Converted Ipratropium/Albuterol Sulfate (Iprat-Albut 0.5-3(2.5) mg/3 ml) 3 Ml Ampul.neb, 3 ML INH RTQ4HR Prescribed by: SHAYLA ZAMORA on 11/13/211119 Last Action: Continued Levothyroxine Sodium (Levothyroxine Sodium) 50 Mcg Tablet, 50 MCG PO DAILY, (Reported) Entered as Reported by: VIVEK ROJAS on 07/31/15 1558 Last Action: Continued Losartan Potassium (Losartan Potassium) 50 Mg Tablet, 50 MG PO DAILY, (Reported) Entered as Reported by: NITO BREWER on 10/06/20 1530 Last Action: Continued Melatonin (Melatonin) 10 Mg Tablet, 20 MG PO HS, (Reported) Entered as Reported by: NITO BREWER on 04/29/21 124 Last Action: Continued Miconazole Nitrate (Lotrimin AF) 90 Gm Powder, 0 GM TOP BID Prescribed by: SHAYLA ZAMORA on 11/13/211119 Last Action: Continued Montelukast Sodium (Montelukast Sodium) 10 Mg Tablet, 10 MG PO DAILY, (Reported) Entered as Reported by: NE GARRETT on 03/31/18 0950 Last Action: Continued Nystatin (Nystatin) 15 Gm Cream..g., 0 GM TP TID Prescribed by: SHAYLA ZAMORA on 11/13/21 112 Last Action: Continued Oseltamivir Phosphate (Tamiflu) 75 Mg Cap, 75 MG PO BID Prescribed by: SHAYLA ZAMORA on 11/13/21 112 Last Action: Held Pantoprazole Sodium (Pantoprazole Sodium) 40 Mg Tablet.dr, 40 MG PO DAILY, (Reported) Entered as Reported by: NITO BREWER on 08/12/20 0919 Last Action: Continued Potassium Chloride (Potassium Chloride) 20 Meq Tablet.er, 20 MEQ PO BID, (Reported) Entered as Reported by: NITO BREWER on 01/27/21 0947 Last Action: Converted Prednisone (Prednisone) 10 Mg Tab.ds.pk, 10 MG PO DAILY Prescribed by: SHAYLA ZAMORA on 11/13/21 112 Last Action: Held Tiotropium Newcomb (Spiriva) 1 Inh Aerp, 1 PUFF INH DAILY, (Reported) Entered as Reported by: NITO BREWER on 10/16/21 112 Last Action: Continued Triamterene/Hydrochlorothiazid (Triamterene-Hctz 37.5-25 mg Cp) 1 Each Capsule, 1 CAP PO DAILY, (Reported) Entered as Reported by: NE GARRETT on 03/31/18 0950 Last Action: Converted Venlafaxine HCl (Venlafaxine HCl ER) 75 Mg Cap.er.24h, 75 MG PO DAILY, (Reported) Entered as Reported by: NITO BREWER on 06/05/21 1345 Last Action: Continued Past Kqeojll-Hctdjr-Laziow Hx Patient Social History Marrital Status: Number of Children: 2 Number of living children: 2 Living Status: Lives at home with and children Employed/Student: employed Tobacco Use?: No Substance use?: No Alcohol Use?: No Immunizations Up To Date Date of Influenza Vaccine: Aug 21, 2021 First/Initial COVID19 Vaccinat: 2020 Second COVID19 Vaccination Yousuf: february 2021 Tetanus Booster (TDap): More Than 5 Years Hepatitis A: No Hepatitis B: No PED Vaccines UTD: Yes Date of Pneumonia Vaccine: Jan 04, 2018 Seasonal Allergies Seasonal Allergies: Yes Current Status status: No Communicates: Verbally Primary Language: Tristanian Preferred Spoken Language: Tristanian Is interpretation needed?: No Past Medical History Surgeries: Abdominal, Cardiac, Orthopedic Pneumonia, Sleep Apnea Currently Using CPAP: Yes Currently Using BIPAP: No Chronic Edema/Swelling, High Cholesterol, Hypertension 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 Sexually Transmitted Disease: No Bladder Infection Gastroesophageal Reflux Rheumatoid Arthritis Hypothyroidsim, Diabetes, Non-Insulin dep Double Vision Loss of Vision: Denies Hearing Impairment: Denies Anxiety, Depression Blood Disorders: No Adverse Reaction/Blood Tranf: No Dx Myasthenia Gravis 07/2020 Family Medical History Alcoholism G8 BROTHER G8 SISTER Alzheimer's disease 19 MOTHER Arthritis 19 FATHER Asthma G8 SISTER Cardiovascular disease 19 FATHER Cataracts 19 FATHER Coronary thrombosis 19 FATHER Deafness or hearing loss SON Diabetes mellitus 19 FATHER G8 SISTER G8 SISTER Drug abuse G8 SISTER Hypertension 19 FATHER G8 SISTER G8 SISTER Kidney disease 19 FATHER Respiratory disorder G8 SISTER G8 SISTER Seizure disorder SON Severe allergy SON Heart Disease, Diabetes, Hypertension Review of Systems Constitutional: No chills, No dizziness EENTM: no symptoms reported Respiratory: cough (Has a chronic cough); No short of breath Cardiovascular: edema (Bilateral lower extremities) Gastrointestinal: No constipation, No diarrhea Genitourinary: No dysuria, No hesitancy : No Musculoskeletal: no symptoms reported Skin: no symptoms reported Psychiatric/Neurological: Headache (Has had a headache with facial tenderness) Physical Exam Vital Signs Vital Signs - First Documented 12/28/21 12/28/21 12:50 12:51 Temp 36.9 Pulse 112 Resp 48 B/P (MAP) 179/96 (123) Pulse Ox 92 O2 Delivery Nasal Cannula O2 Flow Rate 3.00 Capillary Refill : Less Than 3 Seconds Height, Weight, BMI Height: 5'6.00" Weight: 297lbs. 0.0oz. [id number]; 64.00 BMI Method:Stated General Appearance: No Apparent Distress, WD/WN Eyes: Bilateral Eye Normal Inspection HEENT: PERRL/EOMI Neck: Full Range of Motion, Normal Inspection Respiratory: Chest Non Tender, Lungs Clear, No Accessory Muscle Use, No Respiratory Distress, Wheezing (Expiratory wheezes) Cardiovascular: Regular Rate, Rhythm, No Murmur Gastrointestinal: Normal Bowel Sounds, No Organomegaly, No Pulsatile Mass, Non Tender, Soft Extremity: Normal Capillary Refill, Normal Inspection, Normal Range of Motion, Non Tender Neurologic/Psychiatric: Alert, Oriented x3, Normal Mood/Affect Skin: Normal Color, Warm/Dry Assessment/Plan Assessment and Plan Problems: (1) Urinary tract infection Status: Acute (2) RESPIRATORY FAILURE, UNSP, UNSP W HYPOXIA OR HYPERCAPNIA (3) Myasthenia gravis (4) Diabetes mellitus Status: Chronic (5) Rheumatoid arthritis Status: Chronic (6) COPD (chronic obstructive pulmonary disease) (7) HTN (hypertension) Status: Acute (8) Hx of pulmonary embolus Status: Acute (9) acute exacerbation of asthma Status: Acute (10) RALPH on CPAP Admission Diagnosis Assessment: Acute exasperation of asthma Respiratory failure UTI COPD Myasthenia gravis Hypertension hx of pulmonary embolus Rheumatoid arthritis Diabetes mellitus RALPH Plan: Acute exasperation of asthma - Continue to give Albuterol and methylprednisolone as needed Respiratory failure - continue using the 3L of oxygen UTI - Started on IV Piperacillin/Taobactam and will finish treatment on 01/02/22 hx of pulmonary embolus - home meds including Apixaban was restarted Diabetes mellitus - Aspart on a sliding scale was started RALPH -Patient will use CPAP at night Admission Status: Inpatient Order (span 2 midnights) Reason for Inpatient Admission: Exacerbation of asthma SHAYLA ZAMORA DO 12/29/21 0535: History of Present Illness History of Present Illness Reason for visit/HPI Chief complaint: Aspiration episode History of present illness: This is a 61-year-old white female with very complex medical issues including severe COPD/asthma, myasthenia gravis and rheumatoid arthritis with diabetes and hypertension and previous Covid requiring weeks of ICU care who presents to the ER by ambulance after an aspiration episode. She was immediately placed on BiPAP. At this current time she is doing well and her is at the bedside. Allergies and Home Medications Allergies Coded Allergies: adhesive tape (Verified Allergy, Intermediate, 10/15/21) BLISTERS AND RAW SKIN almond (Verified Allergy, Intermediate, Abdominal Pain, 10/15/21) Pt states having pain when she eat them. amlodipine (Verified Allergy, Unknown, 10/15/21) erythromycin base (Verified Allergy, Unknown, 10/15/21) Patient Home Medication List Home Medication List Reviewed: Yes Alprazolam (Alprazolam) 0.5 Mg Tablet, 0.5 MG PO Q8H PRN for ANXIETY, (Reported) Entered as Reported by: NITO BREWER on 10/16/21 1125 Last Action: Continued Apixaban (Eliquis) 5 Mg Tablet, 5 MG PO BID, (Reported) Entered as Reported by: NITO BREWER on 01/27/21 0947 Last Action: Held Atorvastatin Calcium (Atorvastatin Calcium) 20 Mg Tablet, 20 MG PO DAILY, (Reported) Entered as Reported by: NE GARRETT on 03/31/18 0950 Last Action: Continued Azathioprine (Imuran) 50 Mg Tablet, 100 MG PO BID, (Reported) Entered as Reported by: NITO BREWER on 10/16/21 112 Last Action: Converted Calcium Carbonate (Calcium Carbonate) 600 Mg Tablet, 1,200 MG PO HS, (Reported) Entered as Reported by: NITO BREWER on 10/16/21 1135 Last Action: Continued Cetirizine HCl (All Day Allergy) 10 Mg Tablet, 20 MG PO DAILY, (Reported) Entered as Reported by: NITO BREWER on 10/06/20 1532 Last Action: Converted Cholecalciferol (Vitamin D3) (Vitamin D3) 25 Mcg Capsule, 25 MCG PO DAILY, (Reported) Entered as Reported by: NITO BREWER on 10/16/21 112 Last Action: Converted Citalopram Hydrobromide (Citalopram HBr) 20 Mg Tablet, 20 MG PO DAILY, (Reported) Entered as Reported by: NITO BREWER on 10/06/20 1530 Last Action: Continued Clonidine HCl (Clonidine HCl) 0.1 Mg Tablet, 0.1 MG PO BID, (Reported) Entered as Reported by: VIVEK ROJAS on 07/31/15 9778 Last Action: Continued Doxycycline Hyclate (Doxycycline Hyclate) 100 Mg Tablet, 100 MG PO BID@ Prescribed by: SHAYLA ZAMORA on 11/13/21 112 Last Action: Held Doxycycline Hyclate (Doxycycline Hyclate) 100 Mg Tablet, 100 MG PO BID Prescribed by: SHAYLA ZAMOAR on 11/13/21 1120 Last Action: Held Ezetimibe (Ezetimibe) 10 Mg Tablet, 10 MG PO DAILY, (Reported) Entered as Reported by: NITO BREWER on 06/05/21 1345 Last Action: Continued Fluticasone Propionate (Fluticasone Propionate) 16 Gm [place].susp, 1 SPRAY NSEACH DAILY, (Reported) Entered as Reported by: NITO BREWER on 10/16/211124 Last Action: Continued Fluticasone/Vilanterol (Breo Ellipta 200-25 Mcg INH) 1 Each Blst.w.dev, 1 EACH IH DAILY, (Reported) Entered as Reported by: NITO BREWER on 04/29/21 124 Last Action: Continued Furosemide (Furosemide) 40 Mg Tablet, 40 MG PO DAILY PRN for FLUID RETENTION, (Reported) Entered as Reported by: MARIIA ALEJANDRO on 12/25/20 1838 Last Action: Continued Glyburide (Glyburide) 1.25 Mg Tablet, 2.5 MG PO DAILY, (Reported) Entered as Reported by: NITO BREWER on 10/16/211124 Last Action: Converted Ipratropium/Albuterol Sulfate (Iprat-Albut 0.5-3(2.5) mg/3 ml) 3 Ml Ampul.neb, 3 ML INH RTQ4HR Prescribed by: SHAYLA ZAMORA on 11/13/211119 Last Action: Continued Levothyroxine Sodium (Levothyroxine Sodium) 50 Mcg Tablet, 50 MCG PO DAILY, (Reported) Entered as Reported by: VIVEK ROJAS on 07/31/15 1558 Last Action: Continued Losartan Potassium (Losartan Potassium) 50 Mg Tablet, 50 MG PO DAILY, (Reported) Entered as Reported by: NITO BREWER on 10/06/20 1530 Last Action: Continued Melatonin (Melatonin) 10 Mg Tablet, 20 MG PO HS, (Reported) Entered as Reported by: NITO BREWER on 04/29/21 124 Last Action: Continued Miconazole Nitrate (Lotrimin AF) 90 Gm Powder, 0 GM TOP BID Prescribed by: SHAYLA ZAMORA on 11/13/21 112 Last Action: Continued Montelukast Sodium (Montelukast Sodium) 10 Mg Tablet, 10 MG PO DAILY, (Reported) Entered as Reported by: NE GARRETT on 03/31/18 0950 Last Action: Continued Nystatin (Nystatin) 15 Gm Cream..g., 0 GM TP TID Prescribed by: SHAYLA ZAMORA on 11/13/211119 Last Action: Continued Oseltamivir Phosphate (Tamiflu) 75 Mg Cap, 75 MG PO BID Prescribed by: SHAYLA ZAMORA on 11/13/21 112 Last Action: Held Pantoprazole Sodium (Pantoprazole Sodium) 40 Mg Tablet.dr, 40 MG PO DAILY, (Reported) Entered as Reported by: NITO BREWER on 08/12/20 0919 Last Action: Continued Potassium Chloride (Potassium Chloride) 20 Meq Tablet.er, 20 MEQ PO BID, (Reported) Entered as Reported by: NITO BREWER on 01/27/21 0947 Last Action: Converted Prednisone (Prednisone) 10 Mg Tab.ds.pk, 10 MG PO DAILY Prescribed by: SHAYLA ZAMORA on 11/13/21 112 Last Action: Held Tiotropium Newcomb (Spiriva) 1 Inh Aerp, 1 PUFF INH DAILY, (Reported) Entered as Reported by: NITO BREWER on 10/16/21 1125 Last Action: Continued Triamterene/Hydrochlorothiazid (Triamterene-Hctz 37.5-25 mg Cp) 1 Each Capsule, 1 CAP PO DAILY, (Reported) Entered as Reported by: NE GARRETT on 03/31/18 0950 Last Action: Converted Venlafaxine HCl (Venlafaxine HCl ER) 75 Mg Cap.er.24h, 75 MG PO DAILY, (Reported) Entered as Reported by: NITO BREWER on 06/05/21 1345 Last Action: Continued Past Uvmhlqw-Zylxod-Weqokw Hx Patient Social History Marrital Status: Employed/Student: employed Smoking Status: Never a Smoker Past Medical History Pulmonary Embolism, Sleep Apnea, COPD Currently Using CPAP: Yes Currently Using BIPAP: No Chronic Edema/Swelling, High Cholesterol, Hypertension Bladder Infection Gastroesophageal Reflux Degenerate Disk Disease, Arthritis, Chronic Back Pain Hypothyroidsim, Diabetes, Non-Insulin dep Anxiety, Depression Family Medical History Alcoholism G8 BROTHER G8 SISTER Alzheimer's disease 19 MOTHER Arthritis 19 FATHER Asthma G8 SISTER Cardiovascular disease 19 FATHER Cataracts 19 FATHER Coronary thrombosis 19 FATHER Deafness or hearing loss SON Diabetes mellitus 19 FATHER G8 SISTER G8 SISTER Drug abuse G8 SISTER Hypertension 19 FATHER G8 SISTER G8 SISTER Kidney disease 19 FATHER Respiratory disorder G8 SISTER G8 SISTER Seizure disorder SON Severe allergy SON Review of Systems Respiratory: cough (Has a chronic cough), dyspnea on exertion, short of breath Cardiovascular: edema (Bilateral lower extremities) Musculoskeletal: no symptoms reported Skin: no symptoms reported Psychiatric/Neurological: Headache (Has had a headache with facial tenderness) All Other Systems Reviewed Negative Unless Noted: Yes Physical Exam General Appearance: No Apparent Distress, WD/WN, Chronically ill, Obese Eyes: Bilateral Eye Normal Inspection, Bilateral Eye PERRL, Bilateral Eye EOMI HEENT: PERRL/EOMI, Normal ENT Inspection, Pharynx Normal Neck: Full Range of Motion, Normal Inspection, Non Tender, Supple, Carotid Bruit Respiratory: Chest Non Tender, Lungs Clear, Normal Breath Sounds, No Accessory Muscle Use, No Respiratory Distress Cardiovascular: Regular Rate, Rhythm, No Edema, No Gallop, No JVD, No Murmur, Normal Peripheral Pulses Gastrointestinal: Normal Bowel Sounds, No Organomegaly, No Pulsatile Mass, Non Tender, Soft Back: Normal Inspection, No CVA Tenderness, No Vertebral Tenderness Extremity: Normal Capillary Refill, Normal Inspection, Normal Range of Motion, Non Tender, No Calf Tenderness, No Pedal Edema Neurologic/Psychiatric: Alert, Oriented x3, No Motor/Sensory Deficits, Normal Mood/Affect Skin: Normal Color, Warm/Dry Lymphatic: No Adenopathy Assessment/Plan Assessment and Plan Assessment: Acute aspiration episode with acute hypoxic respiratory failure requiring EMS transfer to ER placement of BiPAP Acute on chronic respiratory failure hypoxic type Myasthenia gravis Post Covid syndrome 16 months ago active Covid infection requiring lengthy ICU stay Chronic O2 dependence Morbid obesity BMI 62 Rheumatoid arthritis Hypothyroidism Diabetes mellitus Plan: IV steroids IV antibiotics Home meds Supervisory-Addendum Brief Verification & Attestation Participated in pt care: history, MDM, physical Personally performed: exam, history, MDM, supervision of care Care discussed with: Medical Student Procedures: n/a Results interpretation: Verified all documentation Verification and Attestation of Medical Student E/M Service A medical student performed and documented this service in my presence. I reviewed and verified all information documented by the medical student and made modifications to such information, when appropriate. I personally performed the physical exam and medical decision making. Shayla Zamora, Dec 29, 2021,05:38 DOMINIK QUEVEDO Dec 28, 2021 15:45 SHAYLA ZAMORA DO Dec 29, 2021 05:35
[2021-12-28] MEDS: inSUlin ASPART (NovoLOG) 1 UNIT/0.01 ML (CHARGE PER UNIT) SC SCH ×2 (16:55→21:31)
[2021-12-28] MEDS ORDERED: cloNIDine 0.1 MG (CATAPRES) TAB PO PRN (18:00)
[2021-12-28] MEDS ORDERED: ALPRAZolam 0.5 MG (XANAX) TAB PO PRN (18:00)
[2021-12-28] MEDS ORDERED: FUROSEMIDE 40 MG (LASIX) TAB PO PRN (18:00)
[2021-12-28] MEDS: KCL 20 MEQ TAB (K-DUR) PO SCH (18:21)
[2021-12-28] MEDS: RT-ALBUTEROL/IPRATROPIUM 3 ML (DUONEB) VIAL INH SCH ×2 (18:27→21:55)
[2021-12-28] MEDS ORDERED: RT-ALBUTEROL SULF 2.5 MG/3 ML PRE-MIX VIAL INH SCH (19:00)
[2021-12-28] MEDS ORDERED: CALCIUM CARBONATE 600 MG (CALCARB) TAB PO SCH (20:00)
[2021-12-28] MEDS ORDERED: MELATONIN 10 MG TABLET PO SCH (21:00)
[2021-12-28] MEDS ORDERED: AZATHIOPRINE 100 MG PO SCH (21:00)
[2021-12-28] MEDS ORDERED: NON-FORMULARY MEDICATION 1 EA EA (Potassium Chloride 20 MEQ) PO SCH (21:00)
[2021-12-28] MEDS: PIPERACILLIN SODIUM/TAZOBACTAM 4.5 GM in NS (IVPB) 100 ML IV SCH (21:26)
[2021-12-28] MEDS: NYSTATIN CREAM (MYCOSTATIN) 30 GM TUBE TP SCH (21:27)
[2021-12-28] MEDS: MICONAZOLE 2% POWDER (DESENEX AF) 90 GM TOP SCH (21:27)
[2021-12-28] MEDS: methylPREDNISolone 125 MG (Solu-MEDROL) VIAL IVP SCH (21:29)
[2021-12-28] MEDS: SENNOSIDES 8.6 MG (SENOKOT) TAB PO SCH (21:30)
[2021-12-28] MEDS: cloNIDine 0.1 MG (CATAPRES) TAB PO SCH (21:30)
[2021-12-28] MEDS: DOCUSATE SODIUM 100 MG (COLACE) CAP PO SCH (21:30)
[2021-12-28] MEDS: APIXABAN 5 MG (ELIQUIS) TABLET PO SCH (21:30)
[2021-12-29] MEDS: methylPREDNISolone 125 MG (Solu-MEDROL) VIAL IVP SCH ×2 (02:35→08:09)
[2021-12-29] MEDS: RT-ALBUTEROL/IPRATROPIUM 3 ML (DUONEB) VIAL INH SCH ×2 (02:42→06:53)
[2021-12-29 05:57] LABS: BASOPHILS % (AUTO) 0 % (0-10); EOSINOPHILS % (AUTO) 0 % (0-10); HEMATOCRIT 36 % (35-52); HEMOGLOBIN 11.5 g/dL (11.5-16.0); LYMPHOCYTES # (AUTO) 0.4 10^3/uL (1.0-4.0); LYMPHOCYTES % (AUTO) 4 % (12-44); MEAN CORPUSCULAR HEMOGLOBIN 30 pg (25-34); MEAN CORPUSCULAR HGB CONC 32 g/dL (32-36); MEAN CORPUSCULAR VOLUME 95 fL (80-99); MEAN PLATELET VOLUME 9.7 fL (9.0-12.2); MONOCYTES # (AUTO) 0.1 10^3/uL (0.0-1.0); MONOCYTES % (AUTO) 1 % (0-12); NEUTROPHILS # (AUTO) 9.6 10^3/uL (1.8-7.8); NEUTROPHILS % (AUTO) 94 % (42-75); PLATELET COUNT 238 10^3/uL (130-400); WHITE BLOOD COUNT 10.2 10^3/uL (4.3-11.0)
[2021-12-29] MEDS: PIPERACILLIN SODIUM/TAZOBACTAM 4.5 GM in NS (IVPB) 100 ML IV SCH (06:14)
[2021-12-29 06:17] LABS: ALBUMIN 3.8 GM/DL (3.2-4.5); BILIRUBIN,TOTAL 0.6 MG/DL (0.1-1.0); CALCIUM 10.2 MG/DL (8.5-10.1); CREATININE SERUM 0.92 MG/DL (0.60-1.30); POTASSIUM 4.2 MMOL/L (3.6-5.0); TOTAL PROTEIN 6.9 GM/DL (6.4-8.2)
[2021-12-29] MEDS ORDERED: LEVOTHYROXINE 50 MCG (LEVOTHROID) TAB PO SCH (06:30)
[2021-12-29 06:31] LABS: LYMPHOCYTES % (MANUAL) 3 %; MONOCYTES % (MANUAL) 2 %; NEUTROPHILS % (MANUAL) 95 %; RBC MORPH NORMAL
[2021-12-29] MEDS: inSUlin ASPART (NovoLOG) 1 UNIT/0.01 ML (CHARGE PER UNIT) SC SCH (06:38)
[2021-12-29] MEDS ORDERED: VENlafaxine XR 75 MG (EFFEXOR XR) CAP PO SCH (07:00)
[2021-12-29] MEDS ORDERED: glyBURIDE 2.5 MG (MICRONASE) TAB PO SCH (07:00)
[2021-12-29] MEDS ORDERED: RT--FLUTICASONE/SALMETEROL 232-14 (AIRDUO RespiCLICK) IH SCH (08:00)
[2021-12-29] MEDS ORDERED: UMECLIDINIUM BROMIDE (INCRUSE ELLIPTA) 7'S IH SCH (08:00)
[2021-12-29] MEDS: DOCUSATE SODIUM 100 MG (COLACE) CAP PO SCH (08:07)
[2021-12-29] MEDS: cloNIDine 0.1 MG (CATAPRES) TAB PO SCH (08:07)
[2021-12-29] MEDS: KCL 20 MEQ TAB (K-DUR) PO SCH (08:07)
[2021-12-29] MEDS: APIXABAN 5 MG (ELIQUIS) TABLET PO SCH (08:07)
[2021-12-29] MEDS: SENNOSIDES 8.6 MG (SENOKOT) TAB PO SCH (08:08)
[2021-12-29] MEDS: NYSTATIN CREAM (MYCOSTATIN) 30 GM TUBE TP SCH (08:14)
[2021-12-29] MEDS: MICONAZOLE 2% POWDER (DESENEX AF) 90 GM TOP SCH (08:14)
[2021-12-29] MEDS ORDERED: TRIAMTERENE/HCTZ 75-50 (MAXZIDE,DYAZIDE) TABLET PO SCH (09:00)
[2021-12-29] MEDS ORDERED: NON-FORMULARY MEDICATION 1 EA EA (Cholecalciferol (Vitamin D3) (Vitamin D3) 25 MCG) PO SCH (09:00)
[2021-12-29] MEDS ORDERED: LOSARTAN 50 MG (COZAAR) TAB PO SCH (09:00)
[2021-12-29] MEDS ORDERED: LORATADINE (CLARITIN) 10 MG TAB PO SCH (09:00)
[2021-12-29] MEDS ORDERED: eZETimibe 10 MG (ZETIA) TABLET PO SCH (09:00)
[2021-12-29] MEDS ORDERED: TIOTROPIUM BROMIDE (SPIRIVA) 5'S INHALER IH SCH (09:00)
[2021-12-29] MEDS ORDERED: GLYBURIDE 2.5 MG PO SCH (09:00)
[2021-12-29] MEDS ORDERED: NON-FORMULARY MEDICATION 1 EA EA (Triamterene/Hydrochlorothiazid (Triamterene-Hctz 37.5-25 PO SCH (09:00)
[2021-12-29] MEDS ORDERED: FLUTICASONE/VILANTEROL 200 MCG 14'S (BREO) IH SCH (09:00)
[2021-12-29] MEDS ORDERED: FLUTICASONE NASAL SPRAY (FLONASE) 16 GM BTL NS SCH (09:00)
[2021-12-29] MEDS ORDERED: [UNRECOGNIZED DRUG - REMARK] PO SCH (09:00)
[2021-12-29] MEDS ORDERED: PANTOPRAZOLE 40 MG (PROTONIX) TAB PO SCH (09:00)
[2021-12-29] MEDS ORDERED: VITAMIN D3 25 MCG (1,000 UNITS) TABLET PO SCH (09:00)
[2021-12-29] MEDS ORDERED: MONTELUKAST 10 MG (SINGULAIR) TAB PO SCH (09:00)
[2021-12-29] MEDS ORDERED: PRED10TA22 PO ×2 (09:45→09:46)
[2021-12-29] MEDS ORDERED: AMOX-358 PO (09:45)
--- NOTE | 2021-12-29 09:46 | Discharge Summary ---
Diagnosis/Chief Complaint Date of Admission Dec 28, 2021 at 14:20 Date of Discharge Discharge Date: Dec 29, 2021 Discharge Diagnosis Assessment: Acute aspiration episode with acute hypoxic respiratory failure requiring EMS transfer to ER placement of BiPAP Acute on chronic respiratory failure hypoxic type Myasthenia gravis Post Covid syndrome 16 months ago active Covid infection requiring lengthy ICU stay Chronic O2 dependence Morbid obesity BMI 62 Rheumatoid arthritis Hypothyroidism Diabetes mellitus Reason Hospital Visit Chief complaint: Aspiration episode History of present illness: This is a 61-year-old white female with very complex medical issues including severe COPD/asthma, myasthenia gravis and rheumatoid arthritis with diabetes and hypertension and previous Covid requiring weeks of ICU care who presents to the ER by ambulance after an aspiration episode. She was immediately placed on BiPAP. At this current time she is doing well and her is at the bedside. Discharge Summary Discharge Physical Examination Allergies: Coded Allergies: adhesive tape (Verified Allergy, Intermediate, 10/15/21) BLISTERS AND RAW SKIN almond (Verified Allergy, Intermediate, Abdominal Pain, 10/15/21) Pt states having pain when she eat them. amlodipine (Verified Allergy, Unknown, 10/15/21) erythromycin base (Verified Allergy, Unknown, 10/15/21) Vitals & I&Os Vital Signs Date Time Temp Pulse Resp B/P (MAP) Pulse Ox O2 Delivery O2 Flow Rate FiO2 12/29/21 12:29 36.5 87 24 163/88 94 Nasal Cannula 3.00 General Appearance: Alert, Oriented X3, Cooperative Respiratory: Clear to Auscultation Cardiovascular: Regular Rate Psych/Mental Status: Mental Status NL Hospital Course Was the Problem List Reviewed?: Yes Roselia is a 61yo F who was brought to the ER by EMS yesterday after chocking on her lunch. She was eating a burger when she chocked on it and she started coughing. She was not able to catch her breath while she was coughing the food up. When EMS arrived they put her on 4L of oxygen and her oxygen saturation improved to 87%. She was also given Ipratropium/albuterol, budesonide, and methylprednisolone in the ambulance. When she got to the ER she was put on BIPAP and treated with albuterol. Her oxygen saturation improved and she came off of the BIPAP and onto nasal cannula. Lactate and ESR were elevated. Urine was positive for nitrites. ABG was 7.41/45/112. She tested negative for COVID and Influenza. An X-ray and CT did not show any concerning findings and ruled out aspiration. Patient had never had an episode of hypoxia like this before. She was admitted for asthma exacerbation and UTI. Nasal cannula was reduced from 6L to 4L to 2L over the night. Patient is back at her baseline of 2-3L of oxygen. Urine culture was positive for E coli. UTI was treated with Zosyn and patient will be discharged with augmentin 875 2x a day for 5 days. Her asthma exacerbation was treated with albuterol and methylprednisolone. She is being sent home with prednisone 20 mg. DOMINIK QUEVEDO Labs (last 24 hrs) Laboratory Tests 12/28/21 12:56: Influenza Type A (RT-PCR) Not Detected, Influenza Type B (RT-PCR) Not Detected, SARS-CoV-2 RNA (RT-PCR) Not Detected 12/28/21 13:00: White Blood Count 6.5, Red Blood Count 3.85, Hemoglobin 11.7, Hematocrit 38, Mean Corpuscular Volume 100H, Mean Corpuscular Hemoglobin 30, Mean Corpuscular Hemoglobin Concent 31L, Red Cell Distribution Width 15.4H, Platelet Count 237, Mean Platelet Volume 9.9, Immature Granulocyte % (Auto) 1, Neutrophils (%) (Auto) 67, Lymphocytes (%) (Auto) 21, Monocytes (%) (Auto) 7, Eosinophils (%) (Auto) 3, Basophils (%) (Auto) 1, Neutrophils # (Auto) 4.4, Lymphocytes # (Auto) 1.4, Monocytes # (Auto) 0.4, Eosinophils # (Auto) 0.2, Basophils # (Auto) 0.0, Immature Granulocyte # (Auto) 0.1, Erythrocyte Sedimentation Rate 34H, Prothrombin Time 13.4, INR Comment 1.0, Activated Partial Thromboplast Time 28, D-Dimer 0.40, Sodium Level 141, Potassium Level 4.2, Chloride Level 105, Carbon Dioxide Level 22, Anion Gap 14, Blood Urea Nitrogen 16, Creatinine 0.91, Estimat Glomerular Filtration Rate 71, BUN/Creatinine Ratio 18, Glucose Level 190H, Calcium Level 9.4, Corrected Calcium 9.6, Magnesium Level 1.8, Total Bilirubin 0.5, Aspartate Amino Transf (AST/SGOT) 19, Alanine Aminotransferase (ALT/SGPT) 18, Alkaline Phosphatase 76, Lactate Dehydrogenase 326H, Total Creatine Kinase 74, Creatine Kinase MB 0.6, Myoglobin 46.9, Troponin I < 0.028, C-Reactive Protein High Sensitivity 0.32, B-Type Natriuretic Peptide 31.1, Total Protein 6.7, Albumin 3.8, Procalcitonin 0.03 12/28/21 13:35: Blood Gas Puncture Site LR, Blood Gas Patient Temperature 98.4, Arterial Blood pH 7.41, Arterial Blood Partial Pressure CO2 45, Arterial Blood Partial Pressure O2 112H, Arterial Blood HCO3 28H, Arterial Blood Total CO2 29.6, Arterial Blood Oxygen Saturation 99, Arterial Blood Base Excess 3.8H, Carlos Test YES-POS, Blood Gas Ventilator Setting NO, Blood Gas Inspired Oxygen 40% 12/28/21 13:50: Urine Color YELLOW, Urine Clarity CLEAR, Urine pH 6.0, Urine Specific Star 1.020, Urine Protein NEGATIVE, Urine Glucose (UA) 1+H, Urine Ketones NEGATIVE, Urine Nitrite POSITIVEH, Urine Bilirubin NEGATIVE, Urine Urobilinogen 0.2, Urine Leukocyte Esterase NEGATIVE, Urine RBC (Auto) NEGATIVE, Urine RBC NONE, Urine WBC 5-10H, Urine Crystals NONE, Urine Bacteria LARGEH, Urine Casts NONE, Urine Mucus NEGATIVE, Urine Culture Indicated YES 12/28/21 16:18: Glucometer 210H 12/28/21 20:59: Glucometer 275H 12/29/21 05:50: White Blood Count 10.2, Red Blood Count 3.83, Hemoglobin 11.5, Hematocrit 36, Mean Corpuscular Volume 95, Mean Corpuscular Hemoglobin 30, Mean Corpuscular Hemoglobin Concent 32, Red Cell Distribution Width 15.2H, Platelet Count 238, Mean Platelet Volume 9.7, Immature Granulocyte % (Auto) 1, Neutrophils (%) (Auto) 94H, Lymphocytes (%) (Auto) 4L, Monocytes (%) (Auto) 1, Eosinophils (%) (Auto) 0, Basophils (%) (Auto) 0, Neutrophils # (Auto) 9.6H, Lymphocytes # (Auto) 0.4L, Monocytes # (Auto) 0.1, Eosinophils # (Auto) 0.0, Basophils # (Auto) 0.0, Immature Granulocyte # (Auto) 0.1, Neutrophils % (Manual) 95, Lymphocytes % (Manual) 3, Monocytes % (Manual) 2, Blood Morphology Comment NORMAL, Sodium Level 138, Potassium Level 4.2, Chloride Level 99, Carbon Dioxide Level 23, Anion Gap 16H, Blood Urea Nitrogen 21H, Creatinine 0.92, Estimat Glomerular Filtration Rate 70, BUN/Creatinine Ratio 23, Glucose Level 230H, Calcium Level 10.2H, Corrected Calcium 10.4H, Total Bilirubin 0.6, Aspartate Amino Transf (AST/SGOT) 16, Alanine Aminotransferase (ALT/SGPT) 18, Alkaline Phosphatase 73, Total Protein 6.9, Albumin 3.8 12/29/21 08:03: Glucometer 228H Microbiology 12/28/21 Blood Culture - Preliminary, Resulted No growth 12/28/21 Urine Culture - Preliminary, Resulted Escherichia coli Pending Labs Microbiology Date/Time Source Procedure Growth Status 12/28/21 15:07 Peripheral Lt Ac Blood Culture - Preliminary No growth Resulted 12/28/21 14:00 Peripheral Rt Ac Blood Culture - Preliminary No growth Resulted 12/28/21 13:50 Urine Clean Catch Urine Culture - Preliminary Escherichia coli Resulted Laboratory Tests 12/28/21 12:56: Influenza Type A (RT-PCR) Not Detected, Influenza Type B (RT-PCR) Not Detected, SARS-CoV-2 RNA (RT-PCR) Not Detected 12/28/21 13:00: White Blood Count 6.5, Red Blood Count 3.85, Hemoglobin 11.7, Hematocrit 38, Mean Corpuscular Volume 100, Mean Corpuscular Hemoglobin 30, Mean Corpuscular Hemoglobin Concent 31, Red Cell Distribution Width 15.4, Platelet Count 237, Mean Platelet Volume 9.9, Immature Granulocyte % (Auto) 1, Neutrophils (%) (Auto) 67, Lymphocytes (%) (Auto) 21, Monocytes (%) (Auto) 7, Eosinophils (%) (Auto) 3, Basophils (%) (Auto) 1, Neutrophils # (Auto) 4.4, Lymphocytes # (Auto) 1.4, Monocytes # (Auto) 0.4, Eosinophils # (Auto) 0.2, Basophils # (Auto) 0.0, Immature Granulocyte # (Auto) 0.1, Erythrocyte Sedimentation Rate 34, Prothrombin Time 13.4, INR Comment 1.0, Activated Partial Thromboplast Time 28, D-Dimer 0.40, Sodium Level 141, Potassium Level 4.2, Chloride Level 105, Carbon Dioxide Level 22, Anion Gap 14, Blood Urea Nitrogen 16, Creatinine 0.91, Estimat Glomerular Filtration Rate 71, BUN/Creatinine Ratio 18, Glucose Level 190, Calcium Level 9.4, Corrected Calcium 9.6, Magnesium Level 1.8, Total Bilirubin 0.5, Aspartate Amino Transf (AST/SGOT) 19, Alanine Aminotransferase (ALT/SGPT) 18, Alkaline Phosphatase 76, Lactate Dehydrogenase 326, Total Creatine Kinase 74, Creatine Kinase MB 0.6, Myoglobin 46.9, Troponin I < 0.028, C-Reactive Protein High Sensitivity 0.32, B-Type Natriuretic Peptide 31.1, Total Protein 6.7, Albumin 3.8, Procalcitonin 0.03 12/28/21 13:35: Blood Gas Puncture Site LR, Blood Gas Patient Temperature 98.4, Arterial Blood pH 7.41, Arterial Blood Partial Pressure CO2 45, Arterial Blood Partial Pressure O2 112, Arterial Blood HCO3 28, Arterial Blood Total CO2 29.6, Arterial Blood Oxygen Saturation 99, Arterial Blood Base Excess 3.8, Carlos Test YES-POS, Blood Gas Ventilator Setting NO, Blood Gas Inspired Oxygen 40% 12/28/21 13:50: Urine Color YELLOW, Urine Clarity CLEAR, Urine pH 6.0, Urine Specific Star 1.020, Urine Protein NEGATIVE, Urine Glucose (UA) 1+, Urine Ketones NEGATIVE, Urine Nitrite POSITIVE, Urine Bilirubin NEGATIVE, Urine Urobilinogen 0.2, Urine Leukocyte Esterase NEGATIVE, Urine RBC (Auto) NEGATIVE, Urine RBC NONE, Urine WBC 5-10, Urine Crystals NONE, Urine Bacteria LARGE, Urine Casts NONE, Urine Mucus NEGATIVE, Urine Culture Indicated YES 12/28/21 16:18: Glucometer 210 12/28/21 20:59: Glucometer 275 12/29/21 05:50: White Blood Count 10.2, Red Blood Count 3.83, Hemoglobin 11.5, Hematocrit 36, Mean Corpuscular Volume 95, Mean Corpuscular Hemoglobin 30, Mean Corpuscular Hemoglobin Concent 32, Red Cell Distribution Width 15.2, Platelet Count 238, Mean Platelet Volume 9.7, Immature Granulocyte % (Auto) 1, Neutrophils (%) (Auto) 94, Lymphocytes (%) (Auto) 4, Monocytes (%) (Auto) 1, Eosinophils (%) (Auto) 0, Basophils (%) (Auto) 0, Neutrophils # (Auto) 9.6, Lymphocytes # (Auto) 0.4, Monocytes # (Auto) 0.1, Eosinophils # (Auto) 0.0, Basophils # (Auto) 0.0, Immature Granulocyte # (Auto) 0.1, Neutrophils % (Manual) 95, Lymphocytes % (Manual) 3, Monocytes % (Manual) 2, Blood Morphology Comment NORMAL, Sodium Level 138, Potassium Level 4.2, Chloride Level 99, Carbon Dioxide Level 23, Anion Gap 16, Blood Urea Nitrogen 21, Creatinine 0.92, Estimat Glomerular Filtration Rate 70, BUN/Creatinine Ratio 23, Glucose Level 230, Calcium Level 10.2, Corrected Calcium 10.4, Total Bilirubin 0.6, Aspartate Amino Transf (AST/SGOT) 16, Alanine Aminotransferase (ALT/SGPT) 18, Alkaline Phosphatase 73, Total Protein 6.9, Albumin 3.8 12/29/21 08:03: Glucometer 228 Discharge Home Medications: Active Scripts Active Prednisone 10 Mg Tab.ds.pk 10 Mg PO DAILY 7 Days hold home dose of Prednisone 10mg daily until your new Rx is completed Prednisone 10 Mg Tab.ds.pk 10 Mg PO DAILY Take 6 tabs(60mg)daily,decrease by 1 tab(10MG)daily. Augmentin 875-125 Tablet (Amoxicillin/Potassium Clav) 1 Each Tablet 1 Each PO BID Iprat-Albut 0.5-3(2.5) mg/3 ml (Ipratropium/Albuterol Sulfate) 3 Ml Ampul.neb 3 Ml INH RTQ4HR Nystatin 15 Gm Cream..g. 0 Gm TP TID Lotrimin AF (Miconazole Nitrate) 90 Gm Powder 0 Gm TOP BID Reported Calcium Carbonate 600 Mg Tablet 1,200 Mg PO HS Vitamin D3 (Cholecalciferol (Vitamin D3)) 25 Mcg Capsule 25 Mcg PO DAILY Fluticasone Propionate 16 Gm [place].susp 1 [place] NSEACH DAILY Alprazolam 0.5 Mg Tablet 0.5 Mg PO Q8H PRN Glyburide 1.25 Mg Tablet 2.5 Mg PO DAILY TAKES 2 (1.25MG) TABS Imuran (Azathioprine) 50 Mg Tablet 100 Mg PO BID TAKES 2 (50MG) TABS Spiriva (Tiotropium [place]) 1 Inh Aerp 1 Puff INH DAILY Venlafaxine HCl ER (Venlafaxine HCl) 75 Mg Cap.er.24h 75 Mg PO DAILY Ezetimibe 10 Mg Tablet 10 Mg PO DAILY Breo Ellipta 200-25 Mcg INH (Fluticasone/Vilanterol) 1 Each Blst.w.dev 1 Each IH DAILY Melatonin 10 Mg Tablet 20 Mg PO HS TAKES 2 (10MG) TABS Eliquis (Apixaban) 5 Mg Tablet 5 Mg PO BID Potassium Chloride 20 Meq Tablet.er 20 Meq PO BID Furosemide 40 Mg Tablet 40 Mg PO DAILY PRN All Day Allergy (Cetirizine HCl) 10 Mg Tablet 20 Mg PO DAILY TAKES 2 (10MG) TABS Losartan Potassium 50 Mg Tablet 50 Mg PO DAILY Citalopram HBr (Citalopram Hydrobromide) 20 Mg Tablet 20 Mg PO DAILY Pantoprazole Sodium 40 Mg Tablet.dr 40 Mg PO DAILY LAST FILLED 09-07-2021 #30/30 DAY SUPPLY Atorvastatin Calcium 20 Mg Tablet 20 Mg PO DAILY Triamterene-Hctz 37.5-25 mg Cp (Triamterene/Hydrochlorothiazid) 1 Each Capsule 1 Cap PO DAILY Montelukast Sodium 10 Mg Tablet 10 Mg PO DAILY Clonidine HCl 0.1 Mg Tablet 0.1 Mg PO BID Levothyroxine Sodium 50 Mcg Tablet 50 Mcg PO DAILY Instructions to patient/family Please see electronic discharge instructions given to patient. FABIENNE ZAMORA DO Dec 29, 2021 09:46
--- NOTE | 2021-12-29 12:20 | Progress Note ---
DOMINIK QUEVEDO 12/29/21 1220: Progress Note Roselia is a 61yo F who was brought to the ER by EMS yesterday after chocking on her lunch. She was eating a burger when she chocked on it and she started coughing. She was not able to catch her breath while she was coughing the food up. When EMS arrived they put her on 4L of oxygen and her oxygen saturation i mproved to 87%. She was also given Ipratropium/albuterol, budesonide, and methylprednisolone in the ambulance. When she got to the ER she was put on BIPAP and treated with albuterol. Her oxygen saturation improved and she came off of the BIPAP and onto nasal cannula. Lactate and ESR were elevated. Urine was positive for nitrites. ABG was 7.41/45/112. She tested negative for COVID and Influenza. An X-ray and CT did not show any concerning findings and ruled out aspiration. Patient had never had an episode of hypoxia like this before. She was admitted for asthma exacerbation and UTI. Nasal cannula was reduced from 6L to 4L to 2L over the night. Patient is back at her baseline of 2-3L of oxygen. Urine culture was positive for E coli. UTI was treated with Zosyn and patient will be discharged with augmentin 875 2x a day for 5 days. Her asthma exacerbation was treated with albuterol and methylprednisolone. She is being sent home with prednisone 20 mg. SHAYLA ZAMORA DO 12/30/21 0555: Supervisory-Addendum Brief Verification & Attestation Participated in pt care: history, MDM, physical Personally performed: exam, history, MDM, supervision of care Care discussed with: Medical Student Procedures: n/a Results interpretation: Verified all documentation Verification and Attestation of Medical Student E/M Service A medical student performed and documented this service in my presence. I reviewed and verified all information documented by the medical student and made modifications to such information, when appropriate. I personally performed the physical exam and medical decision making. Shayla Zamora, Dec 30, 2021,05:55 DOMINIK QUEVEDO Dec 29, 2021 12:20 SHAYLA ZAMORA DO Dec 30, 2021 05:55
[2021-12-29 12:29] VITALS: BP 163/88
[2021-12-29] MEDS ORDERED: PIPERACILLIN SODIUM/TAZOBACTAM 4.5 GM in NS (IVPB) 100 ML IV ONE (15:27)
== END 2021-12-29 11:20 | disposition home or self-care (01) | DRG 189 ==
LOC: EDUNIT# 12:45 → ER 12:46 → CSD 14:20
PROVIDERS: ADMIT Internal Medicine; ATTEND Internal Medicine
PROC: 5A09357 Assistance with Respiratory Ventilation, Less than 24 Consecutive Hours, Continuous Positive Airway Pressure (ICD-10-PCS; principal; 2021-12-28)
DX: J96.21 Acute and chronic respiratory failure with hypoxia (principal); J45.901 Unspecified asthma with (acute) exacerbation; N39.0 Urinary tract infection, site not specified; Z68.44 Body mass index [BMI] 60.0-69.9, adult; G70.00 Myasthenia gravis without (acute) exacerbation; Z86.16 Personal history of COVID-19; Z99.81 Dependence on supplemental oxygen; M06.9 Rheumatoid arthritis, unspecified; E03.9 Hypothyroidism, unspecified; J44.9 Chronic obstructive pulmonary disease, unspecified; Z86.711 Personal history of pulmonary embolism; G47.39 Other sleep apnea; K21.9 Gastro-esophageal reflux disease without esophagitis; G89.29 Other chronic pain; M54.9 Dorsalgia, unspecified; F41.9 Anxiety disorder, unspecified; F32.A Depression, unspecified; I10 Essential (primary) hypertension; G47.33 Obstructive sleep apnea (adult) (pediatric); E78.00 Pure hypercholesterolemia, unspecified; E11.40 Type 2 diabetes mellitus with diabetic neuropathy, unspecified; E66.01 Morbid (severe) obesity due to excess calories; Z20.822 Contact with and (suspected) exposure to COVID-19
CPT/HCPCS: 36415; 71045; 71250; 80053; 81000; 82550; 82553; 82805; 82947; 83615; 83735; 83874; 83880; 84145; 84484; 85007; 85025; 85027; 85379; 85610; 85652; 85730; 86141; 87040; 87077; 87088; 87186; 87636; 93005; 93041; 94640; 94760

== ENCOUNTER → 2022-01-15 | Outpatient (CLI) | payer BC ==
--- NOTE | 2022-01-15 11:55 | Diagnostic Imaging Report ---
INDICATION: Dysphagia. TECHNIQUE: The study was performed in conjunction with Speech Pathology. Video fluoroscopy was performed during the swallowing of barium of multiple consistencies. 1.1 minute of fluoroscopic time was utilized. FINDINGS: Patient ingested thin liquid with spoon and through a straw. Patient also was given applesauce as well as banana consistency. There is normal epiglottic tilt and laryngeal elevation. No penetration or aspiration was observed. No vallecular residue is seen. Patient did have a cough reflex on multiple occasions; however, no aspiration was observed. IMPRESSION: Essentially unremarkable modified barium swallow. Dictated by: Dictated on workstation # [id number]
== END ==
LOC: RAD 10:30
PROVIDERS: ATTEND Internal Medicine
DX: R13.10 Dysphagia, unspecified (principal)
CPT/HCPCS: 74230

== ENCOUNTER 2022-04-23 15:43 | Inpatient (IN) | payer BC ==
[~2022-04-23] VITALS: Ht 168 cm; Wt 180.0 kg
[2022-04-23] MEDS ORDERED: diphenhydrAMINE 25 MG TAB (BENADRYL) PO PRN (16:30)
[2022-04-23] MEDS ORDERED: BENZONATATE 100 MG (TESSALON) CAPSULE PO PRN (16:30)
[2022-04-23] MEDS ORDERED: ONDANSETRON 4 MG/2 ML (SDV) Z0FRAN IV PRN (16:30)
[2022-04-23] MEDS ORDERED: PATIENT MAY USE OWN MEDS, ALL PO SCH (16:30)
[2022-04-23] MEDS ORDERED: ANTACID SUSP 30 ML UDC (MYLANTA) PO PRN (16:30)
[2022-04-23] MEDS ORDERED: BISACODYL 10 MG SUPP (DULCOLAX) PR PRN (16:30)
[2022-04-23] MEDS ORDERED: diphenhydrAMINE 50 MG/ML INJ (BENADRYL) IVP PRN (16:30)
[2022-04-23] MEDS ORDERED: NALOXONE 0.4 MG/ML 1 ML (NARCAN) VIAL IV PRN (16:30)
[2022-04-23] MEDS ORDERED: morphine INJ 4 MG/ML 1 ML (VIAL/SYRINGE) IV PRN (16:30)
[2022-04-23] MEDS ORDERED: inSUlin (REGULAR) HUMAN 1 UNIT/0.01 ML (CHARGE PER UNIT) SC PRN (16:30)
[2022-04-23] MEDS ORDERED: LACTULOSE SYRUP 10GM/15ML (ENULOSE) 30ML UDC PO PRN (16:30)
[2022-04-23] MEDS ORDERED: CALCIUM CARBONATE 500 MG (TUMS) TAB.CHEW PO PRN (16:30)
[2022-04-23] MEDS ORDERED: ONDANSETRON 4 MG (ZOFRAN) ORAL DISSOLVE TAB PO PRN (16:30)
[2022-04-23] MEDS ORDERED: polyethylene glycoL POWDER 17 GM (MIRALAX) PACK PO PRN (16:30)
[2022-04-23] MEDS ORDERED: MILK OF MAGNESIA 400 MG/5 ML 30 ML UDC PO PRN (16:30)
[2022-04-23] MEDS ORDERED: ALPRAZolam 0.25 MG (XANAX) TAB PO PRN (16:30)
[2022-04-23] MEDS ORDERED: MELATONIN 3 MG TABLET PO PRN (16:30)
--- NOTE | 2022-04-23 16:50 | Diagnostic Imaging Report ---
INDICATION: Cough and shortness of breath. Frontal chest obtained at 4:34 p.m. and compared to 12/28/2021. FINDINGS: The heart is mildly enlarged. The exam is somewhat technically limited. There is no definite consolidation or pneumothorax or pleural fluid. IMPRESSION: Cardiomegaly with no definite acute abnormality in the chest. Dictated by: Dictated on workstation # [id number]
[2022-04-23 16:56] LABS: BASOPHILS % (AUTO) 1 % (0-10); EOSINOPHILS # (AUTO) 0.1 10^3/uL (0.0-0.3); EOSINOPHILS % (AUTO) 2 % (0-10); HEMATOCRIT 41 % (35-52); HEMOGLOBIN 12.8 g/dL (11.5-16.0); LYMPHOCYTES # (AUTO) 0.8 10^3/uL (1.0-4.0); LYMPHOCYTES % (AUTO) 13 % (12-44); MEAN CORPUSCULAR HEMOGLOBIN 30 pg (25-34); MEAN CORPUSCULAR HGB CONC 31 g/dL (32-36); MEAN CORPUSCULAR VOLUME 96 fL (80-99); MEAN PLATELET VOLUME 9.4 fL (9.0-12.2); MONOCYTES # (AUTO) 0.4 10^3/uL (0.0-1.0); MONOCYTES % (AUTO) 7 % (0-12); NEUTROPHILS # (AUTO) 4.9 10^3/uL (1.8-7.8); NEUTROPHILS % (AUTO) 77 % (42-75); PLATELET COUNT 226 10^3/uL (130-400); WHITE BLOOD COUNT 6.4 10^3/uL (4.3-11.0)
[2022-04-23 17:06] LABS: ALBUMIN 3.8 GM/DL (3.2-4.5)
[2022-04-23] MEDS: methylPREDNISolone 40 MG/ML (Solu-MEDROL) VIAL IV SCH ×2 (17:07→23:38)
[2022-04-23 17:08] LABS: CALCIUM 9.4 MG/DL (8.5-10.1)
[2022-04-23] MEDS: DOXYCYCLINE INJECTION 100 MG in NS (IVPB) 100 ML IV SCH (17:08)
[2022-04-23 17:09] LABS: TOTAL PROTEIN 6.7 GM/DL (6.4-8.2)
[2022-04-23 17:11] LABS: BILIRUBIN,TOTAL 0.6 MG/DL (0.1-1.0)
[2022-04-23 17:13] LABS: CREATININE SERUM 0.82 MG/DL (0.60-1.30)
[2022-04-23] MEDS: guaiFENesin/CODEINE (ROBITUSSIN AC) 10ML UDC PO PRN ×2 (17:33→17:34)
[2022-04-23] MEDS: NS IV 1000 ML 1,000 ML IV SCH (17:41)
[2022-04-23] MEDS: CEFEPIME 1,000 MG/NS 50 ML IVPB IV SCH ×4 (17:41→23:38)
[2022-04-23] MEDS ORDERED: CATHETER FLUSH 10 ML SYR IVP PRN (17:45)
[2022-04-23 18:02] VITALS: BP 197/75
[2022-04-23] MEDS: RT-ALBUTEROL/IPRATROPIUM 3 ML (DUONEB) VIAL INH SCH ×2 (18:58→20:58)
[2022-04-23 19:26] VITALS: BP 152/74
[2022-04-23] MEDS: SENNOSIDES 8.6 MG (SENOKOT) TAB PO SCH (20:15)
[2022-04-23] MEDS: DOCUSATE SODIUM 100 MG (COLACE) CAP PO SCH (20:16)
[2022-04-23] MEDS: cloNIDine 0.1 MG (CATAPRES) TAB PO SCH (20:48)
[2022-04-23] MEDS: APIXABAN 5 MG (ELIQUIS) TABLET PO SCH (20:48)
[2022-04-23] MEDS: CALCIUM CARBONATE 600 MG (CALCARB) TAB PO SCH (20:48)
[2022-04-23] MEDS: RT-BUDESONIDE NEBS 0.5 MG/2ML (PULMICORT) AMP INH SCH (20:58)
[2022-04-23] MEDS ORDERED: NON-FORMULARY MEDICATION 1 EA EA (Potassium Chloride 20 MEQ) PO SCH (21:00)
[2022-04-23] MEDS ORDERED: CEFEPIME INJECTION 2,000 MG in NS (IVPB) 50 ML IV SCH (21:00)
[2022-04-23] MEDS: MICONAZOLE 2% POWDER (DESENEX AF) 90 GM TOP SCH (21:10)
[2022-04-23] MEDS: NYSTATIN CREAM (MYCOSTATIN) 30 GM TUBE TP SCH (21:10)
[2022-04-23] MEDS: inSUlin ASPART (NovoLOG) 1 UNIT/0.01 ML (CHARGE PER UNIT) SC SCH (21:57)
[2022-04-24] VITALS (12 sets, daily range): BP systolic 124–166; BP diastolic 64–95
[2022-04-24] MEDS: RT-ALBUTEROL/IPRATROPIUM 3 ML (DUONEB) VIAL INH SCH ×6 (02:26→22:43)
[2022-04-24] MEDS: MELATONIN 10 MG TABLET PO SCH ×2 (03:31→21:14)
[2022-04-24] MEDS: AZATHIOPRINE 100 MG PO SCH ×2 (03:31→08:37)
[2022-04-24] MEDS: methylPREDNISolone 40 MG/ML (Solu-MEDROL) VIAL IV SCH ×3 (05:15→17:21)
[2022-04-24] MEDS: DOXYCYCLINE INJECTION 100 MG in NS (IVPB) 100 ML IV SCH ×2 (05:18→17:22)
[2022-04-24] MEDS: ACETAMINOPHEN 325 MG TABLET PO PRN ×2 (05:20→21:15)
[2022-04-24] MEDS: NS IV 1000 ML 1,000 ML IV SCH ×2 (05:20→11:51)
[2022-04-24 05:56] LABS: BASOPHILS % (AUTO) 0 % (0-10); EOSINOPHILS % (AUTO) 0 % (0-10); HEMATOCRIT 40 % (35-52); HEMOGLOBIN 12.5 g/dL (11.5-16.0); LYMPHOCYTES # (AUTO) 0.4 10^3/uL (1.0-4.0); LYMPHOCYTES % (AUTO) 5 % (12-44); MEAN CORPUSCULAR HEMOGLOBIN 30 pg (25-34); MEAN CORPUSCULAR HGB CONC 31 g/dL (32-36); MEAN CORPUSCULAR VOLUME 95 fL (80-99); MEAN PLATELET VOLUME 9.7 fL (9.0-12.2); MONOCYTES # (AUTO) 0.1 10^3/uL (0.0-1.0); MONOCYTES % (AUTO) 1 % (0-12); NEUTROPHILS # (AUTO) 7.5 10^3/uL (1.8-7.8); NEUTROPHILS % (AUTO) 93 % (42-75); PLATELET COUNT 225 10^3/uL (130-400)
--- NOTE | 2022-04-24 06:12 | History & Physical ---
History of Present Illness HPI/Chief Complaint CC: Acute on chronic respiratory failure HPI: This is a 62yoWF clinic patient of mine with severe lung disease due to brandie perdue COVID status, RALPH on CPAP, Asthma and OHS from morbid obesity who presented to my office yesterday with wheezing and dyspnea. She sees Dr Martinez Pulmonology and maintained on Saline nebs and Zmax 250mg PO daily who had been doing well compared to last year with 6 admits who started having dyspnea and cough yesterday and COVID swab was negative at [facility] yesterday prior to admit. She has been vaccinated and boosted. O2 is at 3L/min chronically at home 06/06. CXR negative and PCT negative but high risk for resistant bacteria with bronchitis. Patient had not improved so moved to ICU this morning after assessed. ABG ordered. Source: patient Exam Limitations: no limitations Date Seen 04/24/22 Time Seen by a Provider: 11:00 Attending Physician Shayla Zamora DO PCP Admitting Physician: Shayla Zamora DO Attending Physician: Shayla Zamora DO Referring Physician Date of Admission Apr 23, 2022 at 16:12 Home Medications & Allergies Home Medications Reviewed patient Home Medication Reconciliation performed by pharmacy medication reconciliations signals collection technician and/or nursing. Patients Allergies have been reviewed. Allergies Allergies Coded Allergies adhesive tape (Verified Allergy, Intermediate, 10/15/21) BLISTERS AND RAW SKIN almond (Verified Allergy, Intermediate, Abdominal Pain, 10/15/21) Pt states having pain when she eat them. amlodipine (Verified Allergy, Unknown, 10/15/21) erythromycin base (Verified Allergy, Unknown, 10/15/21) Past Raiftbr-Orvmgq-Yzpbdu Hx Past Med/Social Hx: Reviewed Nursing Past Med/Soc Hx, Reviewed and Corrections made Patient Social History Marrital Status: Employed/Student: employed Alcohol Use: Denies Use Smoking Status: Never a Smoker 2nd Hand Smoke Exposure: No Recent Foreign Travel: No Contact w/other who traveled: No Recent Hopitalizations: Yes ( FOR INPATIENT REHAB) Immunizations Up To Date Tetanus Booster (TDap): Less than 5yrs Pediatric: Yes Date of Pneumonia Vaccine: Jan 04, 2018 Date of Influenza Vaccine: Jul 15, 2021 Seasonal Allergies Seasonal Allergies: Yes Past Medical History Surgeries: Abdominal, Cardiac, Orthopedic Respiratory: Asthma, Pulmonary Embolism, Sleep Apnea COVID 09/2021 Currently Using CPAP: Yes Currently Using BIPAP: No Cardiac: Chronic Edema/Swelling, High Cholesterol, Hypertension Neurological: Neuropathy Myasthenia gravis 07/2020 [facility] 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: No Sexually Transmitted Disease: No Menopausal Genitourinary: Bladder Infection Gastrointestinal: Gastroesophageal Reflux Musculoskeletal: Degenerate Disk Disease, Arthritis, Chronic Back Pain Myasthenia Gravis Endocrine: Hypothyroidsim, Diabetes, Non-Insulin dep HEENT: Double Vision Loss of Vision: Denies Hearing Impairment: Denies Psychosocial: Anxiety, Depression History of Blood Disorders: No Adverse Reaction to Blood [place]: No Family History Alcoholism G8 BROTHER G8 SISTER Alzheimer's disease 19 MOTHER Arthritis 19 FATHER Asthma G8 SISTER Cardiovascular disease 19 FATHER Cataracts 19 FATHER Coronary thrombosis 19 FATHER Deafness or hearing loss SON Diabetes mellitus 19 FATHER G8 SISTER G8 SISTER Drug abuse G8 SISTER Hypertension 19 FATHER G8 SISTER G8 SISTER Kidney disease 19 FATHER Respiratory disorder G8 SISTER G8 SISTER Seizure disorder SON Severe allergy SON Heart Disease, Diabetes, Hypertension Review of Systems Constitutional: see HPI, malaise, weakness EENTM: no symptoms reported Respiratory: cough, dyspnea on exertion, short of breath, wheezing Cardiovascular: no symptoms reported Gastrointestinal: no symptoms reported Genitourinary: no symptoms reported Musculoskeletal: no symptoms reported Skin: no symptoms reported Psychiatric/Neurological: No Symptoms Reported All Other Systems Reviewed Negative Unless Noted: Yes Physical Exam Physical Exam Vital Signs Vital Signs - First Documented 04/23/22 04/23/22 16:00 18:02 Temp 36.7 Pulse 107 Resp 24 B/P (MAP) 197/75 (115) Pulse Ox 96 O2 Delivery Nasal Cannula O2 Flow Rate 2.00 Capillary Refill : Height, Weight, BMI Height: 5'6.00" Weight: 297lbs. 0.0oz. 134.546352mc; 63.77 BMI Method:Stated General Appearance: WD/WN, Anxious, Chronically ill, Mild Distress, Obese Eyes: Bilateral Eye Normal Inspection, Bilateral Eye PERRL HEENT: PERRL/EOMI, Normal ENT Inspection, Pharynx Normal Neck: Full Range of Motion, Normal Inspection, Non Tender, Supple, Carotid Bruit Respiratory: Chest Non Tender, No Respiratory Distress, Accessory Muscle Use, Wheezing Cardiovascular: Regular Rate, Rhythm, No Edema, No Gallop, No JVD, No Murmur, Normal Peripheral Pulses Gastrointestinal: Normal Bowel Sounds, No Organomegaly, No Pulsatile Mass, Non Tender, Soft Back: Normal Inspection, No CVA Tenderness, No Vertebral Tenderness Extremity: Normal Capillary Refill, Normal Inspection, Normal Range of Motion, Non Tender, No Calf Tenderness, No Pedal Edema Neurologic/Psychiatric: Alert, Oriented x3, No Motor/Sensory Deficits, Normal Mood/Affect Skin: Normal Color, Warm/Dry Lymphatic: No Adenopathy Results Results/Procedures Labs Laboratory Tests 04/23/22 16:50 04/24/22 05:46 Patient resulted labs reviewed. 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 HTN OOC Anxiety Depression Plan: Move to ICU BiPAP ABG IV abx IV steroids OAC home dose Admission Status: Inpatient Order (span 2 midnights) Reason for Inpatient Admission: wheezing with resp failure Diagnosis/Problems Diagnosis/Problems (1) Acute and chronic respiratory failure (2) COVID-19 long hauler (3) Bronchitis (4) Myasthenia gravis (5) Diabetes mellitus Status: Chronic (6) COPD (chronic obstructive pulmonary disease) (7) Rheumatoid arthritis Status: Chronic (8) RALPH on CPAP (9) Hx of pulmonary embolus Status: Acute (10) HTN (hypertension) Status: Acute (11) Morbid obesity Status: Acute SHAYLA ZAMORA DO Apr 24, 2022 06:12
[2022-04-24] MEDS: CEFEPIME 1,000 MG/NS 50 ML IVPB IV SCH ×6 (06:24→17:21)
[2022-04-24] MEDS: inSUlin ASPART (NovoLOG) 1 UNIT/0.01 ML (CHARGE PER UNIT) SC SCH ×4 (06:24→21:15)
[2022-04-24 06:49] LABS: BAND NEUTROPHILS 4 %; LYMPHOCYTES % (MANUAL) 4 %; MONOCYTES % (MANUAL) 1 %; NEUTROPHILS % (MANUAL) 91 %; RBC MORPH NORMAL
[2022-04-24] MEDS: glyBURIDE 2.5 MG (MICRONASE) TAB PO SCH (06:53)
[2022-04-24] MEDS: LEVOTHYROXINE 50 MCG (LEVOTHROID) TAB PO SCH (06:53)
[2022-04-24 06:56] LABS: ALBUMIN 3.8 GM/DL (3.2-4.5); POTASSIUM 4.3 MMOL/L (3.6-5.0)
[2022-04-24 06:57] LABS: CALCIUM 9.5 MG/DL (8.5-10.1)
[2022-04-24 06:59] LABS: TOTAL PROTEIN 6.6 GM/DL (6.4-8.2)
[2022-04-24 07:00] LABS: BILIRUBIN,TOTAL 0.4 MG/DL (0.1-1.0)
[2022-04-24 07:02] LABS: CREATININE SERUM 0.91 MG/DL (0.60-1.30)
[2022-04-24] MEDS: RT-BUDESONIDE NEBS 0.5 MG/2ML (PULMICORT) AMP INH SCH ×2 (07:37→22:43)
[2022-04-24] MEDS: FLUTICASONE NASAL SPRAY (FLONASE) 16 GM BTL NS SCH (08:25)
[2022-04-24] MEDS: APIXABAN 5 MG (ELIQUIS) TABLET PO SCH ×2 (08:26→21:13)
[2022-04-24] MEDS: cloNIDine 0.1 MG (CATAPRES) TAB PO SCH ×2 (08:26→21:14)
[2022-04-24] MEDS: PANTOPRAZOLE 40 MG (PROTONIX) TAB PO SCH (08:26)
[2022-04-24] MEDS: LORATADINE (CLARITIN) 10 MG TAB PO SCH (08:26)
[2022-04-24] MEDS: KCL 20 MEQ TAB (K-DUR) PO SCH ×2 (08:27→21:14)
[2022-04-24] MEDS: MONTELUKAST 10 MG (SINGULAIR) TAB PO SCH (08:27)
[2022-04-24] MEDS: LOSARTAN 50 MG (COZAAR) TAB PO SCH (08:27)
[2022-04-24] MEDS: eZETimibe 10 MG (ZETIA) TABLET PO SCH (08:27)
[2022-04-24] MEDS: SENNOSIDES 8.6 MG (SENOKOT) TAB PO SCH ×2 (08:27→21:13)
[2022-04-24] MEDS: VENlafaxine XR 75 MG (EFFEXOR XR) CAP PO SCH (08:27)
[2022-04-24] MEDS: TRIAMTERENE/HCTZ 75-50 (MAXZIDE,DYAZIDE) TABLET PO SCH (08:27)
[2022-04-24] MEDS: DOCUSATE SODIUM 100 MG (COLACE) CAP PO SCH ×2 (08:28→21:15)
[2022-04-24] MEDS: MICONAZOLE 2% POWDER (DESENEX AF) 90 GM TOP SCH ×2 (08:28→21:16)
[2022-04-24] MEDS: NYSTATIN CREAM (MYCOSTATIN) 30 GM TUBE TP SCH ×3 (08:28→21:16)
[2022-04-24] MEDS: NON-FORMULARY MEDICATION 1 EA EA (Cholecalciferol (Vitamin D3) (Vitamin D3) 25 MCG) PO SCH (08:38)
[2022-04-24] MEDS ORDERED: CETIRIZINE HCL (ZYRTEC) 10 MG TAB PO SCH (09:00)
[2022-04-24] MEDS: guaiFENesin/CODEINE (ROBITUSSIN AC) 10ML UDC PO PRN ×2 (09:21→21:17)
--- NOTE | 2022-04-24 16:31 | Tele-ICU Consult ---
History of Present Illness History of Present Illness Date Seen by Provider: Apr 24, 2022 Time Seen by Provider: 16:26 Date of Admission 04/23/22 History of Present Illness She is a 61-year-old female with past medical history of super morbid obesity, obstructive sleep apnea on home oxygen 3 L nasal cannula, also long hauler with the COVID infection around the since 2 years, COPD admitted from Dr. Cunningham's office because she has been having shortness of breath cough and whee zing. She is initially admitted to floor and she did not improve hence she is transferred to the intensive care unit. She is started on a BiPAP ventilation currently she is on a nasal cannula resting comfortably able to talk full sentences. Denies any chest pain. But she has a dry cough and wheezing chest congestion. She has a history of pulmonary embolism in the past and she is on a chronic oral anticoagulant therapy. I have reviewed the available data, labs, images. Video visit made and discussed with the patient also with the NUCLEAR MEDICINE OFFICER. Physical examination and review of systems per NUCLEAR MEDICINE OFFICER Allergies and Home Medications Allergies Coded Allergies: adhesive tape (Verified Allergy, Intermediate, 10/15/21) BLISTERS AND RAW SKIN almond (Verified Allergy, Intermediate, Abdominal Pain, 10/15/21) Pt states having pain when she eat them. amlodipine (Verified Allergy, Unknown, 10/15/21) erythromycin base (Verified Allergy, Unknown, 10/15/21) Home Medications Alprazolam 0.5 Mg Tablet, 0.5 MG PO Q8H PRN for ANXIETY, (Reported) Apixaban 5 Mg Tablet, 5 MG PO BID, (Reported) Atorvastatin Calcium 20 Mg Tablet, 20 MG PO DAILY, (Reported) Azathioprine 50 Mg Tablet, 100 MG PO BID, (Reported) TAKES 2 (50MG) TABS Calcium Carbonate 600 Mg Tablet, 1,200 MG PO HS, (Reported) Cetirizine HCl 10 Mg Tablet, 20 MG PO DAILY, (Reported) TAKES 2 (10MG) TABS Cholecalciferol (Vitamin D3) 25 Mcg Capsule, 25 MCG PO DAILY, (Reported) Citalopram Hydrobromide 20 Mg Tablet, 20 MG PO DAILY, (Reported) Clonidine HCl 0.1 Mg Tablet, 0.1 MG PO BID, (Reported) Ezetimibe 10 Mg Tablet, 10 MG PO DAILY, (Reported) Fluticasone Propionate 16 Gm [place].susp, 1 SPRAY NSEACH DAILY, (Reported) Fluticasone/Vilanterol 1 Each Blst.w.dev, 1 EACH IH DAILY, (Reported) Furosemide 40 Mg Tablet, 40 MG PO DAILY PRN for FLUID RETENTION, (Reported) Glyburide 1.25 Mg Tablet, 2.5 MG PO DAILY, (Reported) TAKES 2 (1.25MG) TABS Ipratropium/Albuterol Sulfate 3 Ml Ampul.neb, 3 ML INH RTQ4HR Prescribed by: FABIENNE ZAMORA on 11/13/21 1120 Levothyroxine Sodium 50 Mcg Tablet, 50 MCG PO DAILY, (Reported) Losartan Potassium 50 Mg Tablet, 50 MG PO DAILY, (Reported) Melatonin 10 Mg Tablet, 20 MG PO HS, (Reported) TAKES 2 (10MG) TABS Miconazole Nitrate 90 Gm Powder, 0 GM TOP BID Prescribed by: FABIENNE ZAMORA on 11/13/21 1120 Montelukast Sodium 10 Mg Tablet, 10 MG PO DAILY, (Reported) Nystatin 15 Gm Cream..g., 0 GM TP TID Prescribed by: FABIENNE ZAMORA on 11/13/21 1120 Pantoprazole Sodium 40 Mg Tablet.dr, 40 MG PO DAILY, (Reported) LAST FILLED 09-07-2021 #30/ DAY SUPPLY Potassium Chloride 20 Meq Tablet.er, 20 MEQ PO BID, (Reported) Prednisone 10 Mg Tab.ds.pk, 10 MG PO DAILY Take 6 tabs(60mg)daily,decrease by 1 tab(10MG)daily. Prescribed by: FABIENNE ZAMORA on 12/29/21 0945 Tiotropium [place] 1 Inh Aerp, 1 PUFF INH DAILY, (Reported) Triamterene/Hydrochlorothiazid 1 Each Capsule, 1 CAP PO DAILY, (Reported) Venlafaxine HCl 75 Mg Cap.er.24h, 75 MG PO DAILY, (Reported) Past Medical/Social/Family Hx Patient Social History Marrital Status: Employed/Student: employed Tobacco Use?: No Smoking Status: Never a Smoker Use of E-Cig and/or Vaping dev: No Substance use?: No Alcohol Use?: No Pt stated abuse/neglect: No Immunizations Up To Date Influenza Vaccine Up-to-Date: Yes; Up-to-Date First/Initial COVID19 Vaccinat: 2020 Second COVID19 Vaccination Yousuf: february 2021 Tetanus Booster (TDap): Unknown Hepatitis A: No Hepatitis B: No TB Skin Test: None Date of Pneumonia Vaccine: Jan 04, 2018 Current Status status: No status: No Advance Directives: Yes Advance Directive Location: Copy placed in chart Communicates: Verbally Primary Language: Brazilian Preferred Spoken Language: Brazilian Is interpretation needed?: Yes Sensory deficits: Vision impairment Implanted or Applied Medical D: None Past Medical History Dx Myasthenia Gravis 07/2020 Review of Systems Constitutional: chills, other (morbidly obese) Focused Exam Lactate Level 04/23/22 16:50: Lactic Acid Level 2.06*H 04/23/22 19:05: Lactic Acid Level 2.25*H Height, Weight, BMI Height: 5'6.00" Weight: 297lbs. 0.0oz. [id number]; 63.77 BMI Method:Stated Exam Exam Patient acknowledged, consented, and participated in this virtual visit which was conducted using real time audio/video Vital Signs Date Time Temp Pulse Resp B/P (MAP) Pulse Ox O2 Delivery O2 Flow Rate FiO2 04/24/22 16:00 79 24 124/95 (105) 95 Nasal Cannula 4.00 04/24/22 15:00 82 21 143/69 (93) 95 Nasal Cannula 4.00 04/24/22 14:27 97 04/24/22 14:10 36.7 04/24/22 14:10 96 Nasal Cannula 4.00 04/24/22 11:36 36.8 97 18 132/64 (86) 96 Nasal Cannula 3.00 04/24/22 11:02 95 Nasal Cannula 2.00 04/24/22 08:00 Nasal Cannula 2.00 04/24/22 07:37 Nasal Cannula 2.00 04/24/22 07:37 97 Nasal Cannula 3.00 04/24/22 07:30 36.2 86 18 166/69 (101) 95 Nasal Cannula 3.00 04/24/22 03:47 36.7 84 16 156/81 (106) 94 Nasal Cannula 3.00 04/24/22 02:27 93 Nasal Cannula 2.00 04/24/22 00:00 36.5 87 17 149/70 (96) 94 Nasal Cannula 3.00 04/23/22 20:59 95 Nasal Cannula 2.00 04/23/22 20:59 95 Nasal Cannula 2.00 04/23/22 20:42 Nasal Cannula 3.00 04/23/22 19:26 37.2 89 20 152/74 (100) 92 Nasal Cannula 2.00 04/23/22 18:58 95 Nasal Cannula 2.00 04/23/22 18:02 36.7 107 24 197/75 (115) 96 Nasal Cannula 2.00 I & O 04/24/22 07:00 Intake Total 3290 ml Output Total 1600 ml Balance 1690 ml Height & Weight Height: 5'6.00" Weight: 297lbs. 0.0oz. [id number]; 63.77 BMI Method:Stated General Appearance: WD/WN, Anxious, Chronically ill, Mild Distress, Obese HEENT: PERRL/EOMI, Normal ENT Inspection, Pharynx Normal Neck: Full Range of Motion, Normal Inspection, Non Tender, Supple, Carotid Bruit Respiratory: Chest Non Tender, No Respiratory Distress, Accessory Muscle Use, Wheezing Cardiovascular: Regular Rate, Rhythm, No Edema, No Gallop, No JVD, No Murmur, Normal Peripheral Pulses Extremity: Normal Capillary Refill, Normal Inspection, Normal Range of Motion, Non Tender, No Calf Tenderness, No Pedal Edema Neurologic/Psychiatric: Alert, Oriented x3, No Motor/Sensory Deficits, Normal Mood/Affect Skin: Normal Color, Warm/Dry Lymphatic: No Adenopathy Results Lab Laboratory Tests 04/23/22 16:50 04/24/22 05:46 Assessment/Plan Assessment/Plan 1. Acute bronchitis with exacerbation of 4 chronic obstructive pulmonary disease. 2. Acute on chronic hypoxic respiratory failure due to the above 3. Morbid obesity with a BMI of 65 with underlying obstructive sleep apnea 4. Long COVID syndrome. 5. History of rheumatoid arthritis and hypothyroidism 6. Diabetes mellitus 7. History of PE on long-term anticoagulant therapy. Recommendations 1. We will give her nebulizer treatments 2. IV Solu-Medrol and monitor her blood sugars. 3. Oxygen via nasal cannula cannula and BiPAP as needed and at night. 4. DVT prophylaxis and ulcer prophylaxis. Currently she is on apixaban orally. 5. Suggest Advair 250/50 1 puff twice daily as an outpatient 6. Suggest pulmonary function test as an outpatient when she is Critical Care: Critically Ill Patient Time spent with patient (mins): 30 LONG HOGAN MD Apr 24, 2022 16:31
[2022-04-24] MEDS: CALCIUM CARBONATE 600 MG (CALCARB) TAB PO SCH (17:21)
[2022-04-25] VITALS (13 sets, daily range): BP systolic 125–168; BP diastolic 60–79
[2022-04-25] MEDS: methylPREDNISolone 40 MG/ML (Solu-MEDROL) VIAL IV SCH ×4 (01:24→17:41)
[2022-04-25] MEDS: CEFEPIME 1,000 MG/NS 50 ML IVPB IV SCH ×8 (01:24→18:51)
[2022-04-25] MEDS: RT-ALBUTEROL/IPRATROPIUM 3 ML (DUONEB) VIAL INH SCH ×6 (02:32→22:00)
[2022-04-25 05:04] LABS: BASOPHILS % (AUTO) 0 % (0-10); EOSINOPHILS % (AUTO) 0 % (0-10); HEMATOCRIT 38 % (35-52); HEMOGLOBIN 11.9 g/dL (11.5-16.0); LYMPHOCYTES # (AUTO) 0.6 10^3/uL (1.0-4.0); LYMPHOCYTES % (AUTO) 4 % (12-44); MEAN CORPUSCULAR HEMOGLOBIN 29 pg (25-34); MEAN CORPUSCULAR HGB CONC 31 g/dL (32-36); MEAN CORPUSCULAR VOLUME 94 fL (80-99); MONOCYTES # (AUTO) 0.4 10^3/uL (0.0-1.0); MONOCYTES % (AUTO) 3 % (0-12); NEUTROPHILS # (AUTO) 13.1 10^3/uL (1.8-7.8); NEUTROPHILS % (AUTO) 92 % (42-75); PLATELET COUNT 247 10^3/uL (130-400); WHITE BLOOD COUNT 14.2 10^3/uL (4.3-11.0)
[2022-04-25 05:17] LABS: ALBUMIN 3.7 GM/DL (3.2-4.5); POTASSIUM 4.4 MMOL/L (3.6-5.0)
[2022-04-25 05:18] LABS: CALCIUM 9.5 MG/DL (8.5-10.1)
[2022-04-25 05:19] LABS: TOTAL PROTEIN 6.5 GM/DL (6.4-8.2)
[2022-04-25 05:21] LABS: BILIRUBIN,TOTAL 0.2 MG/DL (0.1-1.0)
[2022-04-25] MEDS: DOXYCYCLINE INJECTION 100 MG in NS (IVPB) 100 ML IV SCH ×2 (05:22→17:44)
[2022-04-25 05:23] LABS: CREATININE SERUM 1.16 MG/DL (0.60-1.30)
--- NOTE | 2022-04-25 06:22 | Progress Note ---
Subjective Date Seen by a Provider: Apr 25, 2022 Time Seen by a Provider: 10:00 Subjective/Events-last exam Patient doing well Wheezing still present O2 maintained BiPAP never was used No pain BM yesterday IV abx maintained IV steroids Review of Systems General: Fatigue, Malaise Focused Exam Lactate Level 04/23/22 16:50: Lactic Acid Level 2.06*H 04/23/22 19:05: Lactic Acid Level 2.25*H Objective Exam Last Set of Vital Signs Vital Signs Date Time Temp Pulse Resp B/P (MAP) Pulse Ox O2 Delivery O2 Flow Rate FiO2 04/25/22 05:00 68 17 147/77 (100) 94 Nasal Cannula 4.00 04/24/22 20:30 36.9 Capillary Refill : I&O Intake and Output 04/25/22 00:00 Intake Total 2800 ml Output Total 2150 ml Balance 650 ml Intake Oral 1650 ml IV Total 1150 ml Output Urine Total 2150 ml General: Alert, Oriented X3, Cooperative, No Acute Distress Lungs: Other (wheezing noted) Heart: Regular Rate Results Lab Laboratory Tests 04/24/22 11:27: Glucometer 284H 04/24/22 14:39: POC pH (Misc Panel) 7.375, POC Base Excess (Misc Panel) -2, POC pO2 (Misc Panel) 102, POC pCO2 (Misc Panel) 39.1L, POC HCO3 (Misc Panel) 22.9L, POC Blood Gas Total CO2 Calc 24, Bedside Bl Gas O2 Saturation (Calc) 98, Bedside Lactic Acid 04/24/22 17:01: Glucometer 267H 04/24/22 20:35: Glucometer 274H 04/25/22 04:26: White Blood Count 14.2H, Red Blood Count 4.05, Hemoglobin 11.9, Hematocrit 38, Mean Corpuscular Volume 94, Mean Corpuscular Hemoglobin 29, Mean Corpuscular Hemoglobin Concent 31L, Red Cell Distribution Width 15.2H, Platelet Count 247, Mean Platelet Volume 10.0, Immature Granulocyte % (Auto) 1, Neutrophils (%) (Auto) 92H, Lymphocytes (%) (Auto) 4L, Monocytes (%) (Auto) 3, Eosinophils (%) (Auto) 0, Basophils (%) (Auto) 0, Neutrophils # (Auto) 13.1H, Lymphocytes # (Auto) 0.6L, Monocytes # (Auto) 0.4, Eosinophils # (Auto) 0.0, Basophils # (Auto) 0.0, Immature Granulocyte # (Auto) 0.1, Sodium Level 138, Potassium Level 4.4, Chloride Level 104, Carbon Dioxide Level 20L, Anion Gap 14, Blood Urea Nitrogen 25H, Creatinine 1.16, Estimat Glomerular Filtration Rate 53, BUN/Creatinine Ratio 22, Glucose Level 302H, Calcium Level 9.5, Corrected Calcium 9.7, Total Bilirubin 0.2, Aspartate Amino Transf (AST/SGOT) 14, Alanine Aminotransferase (ALT/SGPT) 20, Alkaline Phosphatase 88, Total Protein 6.5, Albumin 3.7 Assessment/Plan Assessment/Plan Assess & Plan/Chief Complaint Assessment: Acute on chronic hypoxic respiratory failure with acute bacterial bronchitis Myasthenia gravis Post 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 Covid infection requiring lengthy ICU stay Chronic O2 dependence Morbid obesity BMI 65 Rheumatoid arthritis Hypothyroidism Diabetes mellitus PE hx during COVID maintained senior living on OAC HTN OOC Anxiety Depression Plan: Move to ICU BiPAP ABG IV abx IV steroids OAC home dose 04/25/22: Move to 4th floor IV abx and steroids Prognosis guarded senior living due to weight Diagnosis/Problems Diagnosis/Problems (1) Acute and chronic respiratory failure (2) COVID-19 long hauler (3) Bronchitis (4) Myasthenia gravis (5) Diabetes mellitus Status: Chronic (6) COPD (chronic obstructive pulmonary disease) (7) Rheumatoid arthritis Status: Chronic (8) RALPH on CPAP (9) Hx of pulmonary embolus Status: Acute (10) HTN (hypertension) Status: Acute (11) Morbid obesity Status: Acute FABIENNE ZAMORA DO Apr 25, 2022 06:22
[2022-04-25] MEDS: LEVOTHYROXINE 50 MCG (LEVOTHROID) TAB PO SCH (06:30)
[2022-04-25] MEDS: glyBURIDE 2.5 MG (MICRONASE) TAB PO SCH (06:30)
[2022-04-25] MEDS: inSUlin ASPART (NovoLOG) 1 UNIT/0.01 ML (CHARGE PER UNIT) SC SCH ×4 (06:30→22:08)
[2022-04-25] MEDS: RT-BUDESONIDE NEBS 0.5 MG/2ML (PULMICORT) AMP INH SCH ×2 (06:38→22:00)
[2022-04-25] MEDS: DOCUSATE SODIUM 100 MG (COLACE) CAP PO SCH ×2 (07:36→20:11)
[2022-04-25] MEDS: SENNOSIDES 8.6 MG (SENOKOT) TAB PO SCH ×2 (07:37→20:10)
[2022-04-25] MEDS: MICONAZOLE 2% POWDER (DESENEX AF) 90 GM TOP SCH ×2 (07:37→21:59)
[2022-04-25] MEDS: NYSTATIN CREAM (MYCOSTATIN) 30 GM TUBE TP SCH ×3 (07:37→21:59)
[2022-04-25] MEDS: MONTELUKAST 10 MG (SINGULAIR) TAB PO SCH (08:04)
[2022-04-25] MEDS: cloNIDine 0.1 MG (CATAPRES) TAB PO SCH ×2 (08:04→20:09)
[2022-04-25] MEDS: PANTOPRAZOLE 40 MG (PROTONIX) TAB PO SCH (08:04)
[2022-04-25] MEDS: VENlafaxine XR 75 MG (EFFEXOR XR) CAP PO SCH (08:05)
[2022-04-25] MEDS: LORATADINE (CLARITIN) 10 MG TAB PO SCH (08:05)
[2022-04-25] MEDS: LOSARTAN 50 MG (COZAAR) TAB PO SCH (08:05)
[2022-04-25] MEDS: KCL 20 MEQ TAB (K-DUR) PO SCH ×2 (08:05→20:10)
[2022-04-25] MEDS: eZETimibe 10 MG (ZETIA) TABLET PO SCH (08:05)
[2022-04-25] MEDS: APIXABAN 5 MG (ELIQUIS) TABLET PO SCH ×2 (08:05→20:09)
[2022-04-25] MEDS: NON-FORMULARY MEDICATION 1 EA EA (Cholecalciferol (Vitamin D3) (Vitamin D3) 25 MCG) PO SCH (08:06)
[2022-04-25] MEDS: TRIAMTERENE/HCTZ 75-50 (MAXZIDE,DYAZIDE) TABLET PO SCH (08:09)
[2022-04-25] MEDS: AZATHIOPRINE 100 MG PO SCH (08:12)
[2022-04-25] MEDS: AZATHIOPRINE PO SCH ×2 (09:13→20:09)
[2022-04-25] MEDS: CHOLECALCIFEROL PO SCH (09:13)
[2022-04-25] MEDS: FLUTICASONE NASAL SPRAY (FLONASE) 16 GM BTL NS SCH (09:15)
[2022-04-25] MEDS: CALCIUM CARBONATE 600 MG (CALCARB) TAB PO SCH (17:44)
[2022-04-25] MEDS: MELATONIN 10 MG TABLET PO SCH (22:08)
[2022-04-26] VITALS (7 sets, daily range): BP systolic 133–160; BP diastolic 60–74
[2022-04-26] MEDS: CEFEPIME 1,000 MG/NS 50 ML IVPB IV SCH ×8 (00:14→17:24)
[2022-04-26] MEDS: methylPREDNISolone 40 MG/ML (Solu-MEDROL) VIAL IV SCH ×3 (00:14→21:35)
[2022-04-26] MEDS: RT-ALBUTEROL/IPRATROPIUM 3 ML (DUONEB) VIAL INH SCH ×6 (02:25→22:26)
[2022-04-26] MEDS: DOXYCYCLINE INJECTION 100 MG in NS (IVPB) 100 ML IV SCH (04:54)
[2022-04-26 05:42] LABS: BASOPHILS % (AUTO) 0 % (0-10); EOSINOPHILS % (AUTO) 0 % (0-10); HEMATOCRIT 37 % (35-52); HEMOGLOBIN 11.5 g/dL (11.5-16.0); LYMPHOCYTES # (AUTO) 0.7 10^3/uL (1.0-4.0); LYMPHOCYTES % (AUTO) 5 % (12-44); MEAN CORPUSCULAR HEMOGLOBIN 29 pg (25-34); MEAN CORPUSCULAR HGB CONC 31 g/dL (32-36); MEAN CORPUSCULAR VOLUME 94 fL (80-99); MEAN PLATELET VOLUME 10.1 fL (9.0-12.2); MONOCYTES # (AUTO) 0.3 10^3/uL (0.0-1.0); MONOCYTES % (AUTO) 2 % (0-12); NEUTROPHILS # (AUTO) 13.8 10^3/uL (1.8-7.8); NEUTROPHILS % (AUTO) 92 % (42-75); PLATELET COUNT 251 10^3/uL (130-400)
[2022-04-26 05:55] LABS: ALBUMIN 3.6 GM/DL (3.2-4.5); POTASSIUM 4.3 MMOL/L (3.6-5.0)
[2022-04-26 05:56] LABS: CALCIUM 9.3 MG/DL (8.5-10.1)
[2022-04-26 05:58] LABS: TOTAL PROTEIN 6.2 GM/DL (6.4-8.2)
[2022-04-26 05:59] LABS: BILIRUBIN,TOTAL 0.2 MG/DL (0.1-1.0)
[2022-04-26 06:01] LABS: CREATININE SERUM 1.16 MG/DL (0.60-1.30)
[2022-04-26] MEDS: LEVOTHYROXINE 50 MCG (LEVOTHROID) TAB PO SCH (06:02)
[2022-04-26] MEDS: glyBURIDE 2.5 MG (MICRONASE) TAB PO SCH (06:02)
[2022-04-26] MEDS: inSUlin ASPART (NovoLOG) 1 UNIT/0.01 ML (CHARGE PER UNIT) SC SCH ×4 (06:02→21:36)
[2022-04-26] MEDS: RT-BUDESONIDE NEBS 0.5 MG/2ML (PULMICORT) AMP INH SCH ×2 (06:59→22:26)
[2022-04-26] MEDS: VENlafaxine XR 75 MG (EFFEXOR XR) CAP PO SCH (08:21)
[2022-04-26] MEDS: cloNIDine 0.1 MG (CATAPRES) TAB PO SCH ×2 (08:22→21:35)
[2022-04-26] MEDS: LOSARTAN 50 MG (COZAAR) TAB PO SCH (08:22)
[2022-04-26] MEDS: TRIAMTERENE/HCTZ 75-50 (MAXZIDE,DYAZIDE) TABLET PO SCH (08:22)
[2022-04-26] MEDS: LORATADINE (CLARITIN) 10 MG TAB PO SCH (08:22)
[2022-04-26] MEDS: PANTOPRAZOLE 40 MG (PROTONIX) TAB PO SCH (08:22)
[2022-04-26] MEDS: SENNOSIDES 8.6 MG (SENOKOT) TAB PO SCH ×2 (08:22→21:49)
[2022-04-26] MEDS: KCL 20 MEQ TAB (K-DUR) PO SCH ×2 (08:22→21:35)
[2022-04-26] MEDS: DOCUSATE SODIUM 100 MG (COLACE) CAP PO SCH ×2 (08:22→21:49)
[2022-04-26] MEDS: eZETimibe 10 MG (ZETIA) TABLET PO SCH (08:22)
[2022-04-26] MEDS: MONTELUKAST 10 MG (SINGULAIR) TAB PO SCH (08:22)
[2022-04-26] MEDS: APIXABAN 5 MG (ELIQUIS) TABLET PO SCH ×2 (08:22→21:35)
[2022-04-26] MEDS: guaiFENesin/CODEINE (ROBITUSSIN AC) 10ML UDC PO PRN (08:23)
[2022-04-26] MEDS: FLUTICASONE NASAL SPRAY (FLONASE) 16 GM BTL NS SCH (08:26)
[2022-04-26] MEDS: NYSTATIN CREAM (MYCOSTATIN) 30 GM TUBE TP SCH ×3 (08:26→21:36)
[2022-04-26] MEDS: CHOLECALCIFEROL PO SCH (08:26)
[2022-04-26] MEDS: MICONAZOLE 2% POWDER (DESENEX AF) 90 GM TOP SCH ×2 (08:27→21:35)
[2022-04-26] MEDS: AZATHIOPRINE PO SCH ×2 (08:30→21:44)
[2022-04-26] MEDS ORDERED: PRED5TAB PO (09:26)
[2022-04-26] MEDS ORDERED: AZIT250T12 PO (09:27)
--- NOTE | 2022-04-26 09:34 | Progress Note ---
Subjective Date Seen by a Provider: Apr 26, 2022 Time Seen by a Provider: 09:00 Subjective/Events-last exam Pt is doing a lot better Wheezing still but expiratory phase Will ambulate today Oxygen maintained at 3L Antibiotics maintained Review of Systems General: Fatigue, Malaise Pulmonary: Dyspnea, Cough Focused Exam Lactate Level 04/23/22 16:50: Lactic Acid Level 2.06*H 04/23/22 19:05: Lactic Acid Level 2.25*H Objective Exam Last Set of Vital Signs Vital Signs Date Time Temp Pulse Resp B/P (MAP) Pulse Ox O2 Delivery O2 Flow Rate FiO2 04/26/22 08:11 36.3 80 20 144/67 (92) 95 Nasal Cannula 3.00 Capillary Refill : I&O Intake and Output 04/26/22 00:00 Intake Total 1572 ml Output Total 500 ml Balance 1072 ml Intake Oral 1522 ml IV Total 50 ml Output Urine Total 500 ml # Voids 6 # Bowel Movements 1 General: Alert, Oriented X3, Cooperative, No Acute Distress Lungs: Other (Wheezing and coughing) Heart: Regular Rate, Normal S1, Normal S2, No Murmurs Neuro: Normal Gait, Normal Speech, Strength at 5/5 X4 Ext, Normal Tone Psych/Mental Status: Mental Status NL, Mood NL Results Lab Laboratory Tests 04/25/22 10:46: Glucometer 256H 04/25/22 15:36: Glucometer 280H 04/25/22 20:42: Glucometer 234H 04/26/22 05:08: White Blood Count 15.0H, Red Blood Count 3.91, Hemoglobin 11.5, Hematocrit 37, Mean Corpuscular Volume 94, Mean Corpuscular Hemoglobin 29, Mean Corpuscular Hemoglobin Concent 31L, Red Cell Distribution Width 15.4H, Platelet Count 251, Mean Platelet Volume 10.1, Immature Granulocyte % (Auto) 1, Neutrophils (%) (Auto) 92H, Lymphocytes (%) (Auto) 5L, Monocytes (%) (Auto) 2, Eosinophils (%) (Auto) 0, Basophils (%) (Auto) 0, Neutrophils # (Auto) 13.8H, Lymphocytes # (Auto) 0.7L, Monocytes # (Auto) 0.3, Eosinophils # (Auto) 0.0, Basophils # (Auto) 0.0, Immature Granulocyte # (Auto) 0.1, Sodium Level 135, Potassium Level 4.3, Chloride Level 102, Carbon Dioxide Level 19L, Anion Gap 14, Blood Urea Nitrogen 32H, Creatinine 1.16, Estimat Glomerular Filtration Rate 53, BUN/Creatinine Ratio 28, Glucose Level 301H, Calcium Level 9.3, Corrected Calciu m 9.6, Total Bilirubin 0.2, Aspartate Amino Transf (AST/SGOT) 13, Alanine Aminotransferase (ALT/SGPT) 21, Alkaline Phosphatase 83, Total Protein 6.2L, Albumin 3.6 04/26/22 05:47: Glucometer 285H Microbiology 04/24/22 MRSA Screen - Preliminary, Resulted Assessment/Plan Assessment/Plan Assess & Plan/Chief Complaint Assessment: Acute on chronic hypoxic respiratory failure with acute bacterial bronchitis Myasthenia gravis Post 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 Covid infection requiring lengthy ICU stay Chronic O2 dependence Morbid obesity BMI 65 Rheumatoid arthritis Hypothyroidism Diabetes mellitus PE hx 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 HTN OOC Anxiety Depression Plan: Move to ICU BiPAP ABG IV abx IV steroids OAC home dose 04/25/22: Move to 4th floor IV abx and steroids Prognosis guarded fpc due to weight 04/26/2022: Ambulate today IV steroids decreased to every 12 Needs [place] port placed Diagnosis/Problems Diagnosis/Problems (1) Acute and chronic respiratory failure (2) COVID-19 long hauler (3) Bronchitis (4) Myasthenia gravis (5) Diabetes mellitus Status: Chronic (6) COPD (chronic obstructive pulmonary disease) (7) Rheumatoid arthritis Status: Chronic (8) RALPH on CPAP (9) Hx of pulmonary embolus Status: Acute (10) HTN (hypertension) Status: Acute (11) Morbid obesity Status: Acute FABIENNE ZAMORA DO Apr 26, 2022 09:34
[2022-04-26] MEDS ORDERED: IPRA3AMP31 PO (09:38)
[2022-04-26] MEDS ORDERED: RT-ALBUINH IH (09:38)
[2022-04-26] MEDS ORDERED: HYPERSAL 3.5% IH (09:48)
[2022-04-26] MEDS ORDERED: ACET600C5 PO (09:50)
[2022-04-26] MEDS ORDERED: EZET10TA17 PO (09:52)
[2022-04-26] MEDS ORDERED: DOCU100T7 PO (09:53)
[2022-04-26] MEDS ORDERED: LACT1CAP57 PO (09:54)
[2022-04-26] MEDS ORDERED: BUDE10.7 IH (09:55)
[2022-04-26] MEDS ORDERED: GUAI600T43 PO (10:14)
[2022-04-26] MEDS ORDERED: BENZ200C51 PO (10:16)
[2022-04-26] MEDS: DOXYCYCLINE 100 MG (VIBRAMYCIN) TABLET PO SCH (17:25)
[2022-04-26] MEDS: CALCIUM CARBONATE 600 MG (CALCARB) TAB PO SCH (17:25)
[2022-04-26] MEDS: MELATONIN 10 MG TABLET PO SCH (21:35)
[2022-04-27 00:03] VITALS: BP 155/72
[2022-04-27] MEDS: CEFEPIME 1,000 MG/NS 50 ML IVPB IV SCH ×10 (00:05→23:16)
[2022-04-27] MEDS: RT-ALBUTEROL/IPRATROPIUM 3 ML (DUONEB) VIAL INH SCH ×6 (02:42→21:57)
[2022-04-27 03:53] VITALS: BP 138/91
[2022-04-27 05:26] LABS: BASOPHILS % (AUTO) 0 % (0-10); EOSINOPHILS % (AUTO) 0 % (0-10); HEMATOCRIT 36 % (35-52); HEMOGLOBIN 11.2 g/dL (11.5-16.0); LYMPHOCYTES # (AUTO) 0.8 10^3/uL (1.0-4.0); LYMPHOCYTES % (AUTO) 7 % (12-44); MEAN CORPUSCULAR HEMOGLOBIN 29 pg (25-34); MEAN CORPUSCULAR HGB CONC 31 g/dL (32-36); MEAN CORPUSCULAR VOLUME 94 fL (80-99); MEAN PLATELET VOLUME 9.9 fL (9.0-12.2); MONOCYTES # (AUTO) 0.4 10^3/uL (0.0-1.0); MONOCYTES % (AUTO) 4 % (0-12); NEUTROPHILS # (AUTO) 9.2 10^3/uL (1.8-7.8); NEUTROPHILS % (AUTO) 87 % (42-75); PLATELET COUNT 231 10^3/uL (130-400); WHITE BLOOD COUNT 10.6 10^3/uL (4.3-11.0)
[2022-04-27 05:49] LABS: ALBUMIN 3.5 GM/DL (3.2-4.5)
[2022-04-27 05:52] LABS: TOTAL PROTEIN 5.9 GM/DL (6.4-8.2)
[2022-04-27 05:54] LABS: BILIRUBIN,TOTAL 0.3 MG/DL (0.1-1.0)
[2022-04-27 05:55] LABS: CREATININE SERUM 1.08 MG/DL (0.60-1.30)
[2022-04-27] MEDS: glyBURIDE 2.5 MG (MICRONASE) TAB PO SCH (06:03)
[2022-04-27] MEDS: LEVOTHYROXINE 50 MCG (LEVOTHROID) TAB PO SCH (06:03)
[2022-04-27] MEDS: DOXYCYCLINE 100 MG (VIBRAMYCIN) TABLET PO SCH ×2 (06:03→17:06)
[2022-04-27] MEDS: inSUlin ASPART (NovoLOG) 1 UNIT/0.01 ML (CHARGE PER UNIT) SC SCH ×4 (06:04→20:33)
[2022-04-27] MEDS: RT-BUDESONIDE NEBS 0.5 MG/2ML (PULMICORT) AMP INH SCH ×2 (07:01→21:57)
[2022-04-27 08:07] VITALS: BP 162/84
[2022-04-27] MEDS: LOSARTAN 50 MG (COZAAR) TAB PO SCH (08:21)
[2022-04-27] MEDS: eZETimibe 10 MG (ZETIA) TABLET PO SCH (08:21)
[2022-04-27] MEDS: SENNOSIDES 8.6 MG (SENOKOT) TAB PO SCH ×2 (08:21→20:37)
[2022-04-27] MEDS: TRIAMTERENE/HCTZ 75-50 (MAXZIDE,DYAZIDE) TABLET PO SCH (08:21)
[2022-04-27] MEDS: PANTOPRAZOLE 40 MG (PROTONIX) TAB PO SCH (08:21)
[2022-04-27] MEDS: cloNIDine 0.1 MG (CATAPRES) TAB PO SCH ×2 (08:21→20:31)
[2022-04-27] MEDS: DOCUSATE SODIUM 100 MG (COLACE) CAP PO SCH ×2 (08:21→20:37)
[2022-04-27] MEDS: APIXABAN 5 MG (ELIQUIS) TABLET PO SCH (08:21)
[2022-04-27] MEDS: MONTELUKAST 10 MG (SINGULAIR) TAB PO SCH (08:21)
[2022-04-27] MEDS: VENlafaxine XR 75 MG (EFFEXOR XR) CAP PO SCH (08:21)
[2022-04-27] MEDS: KCL 20 MEQ TAB (K-DUR) PO SCH ×2 (08:21→20:32)
[2022-04-27] MEDS: LORATADINE (CLARITIN) 10 MG TAB PO SCH (08:22)
[2022-04-27] MEDS: methylPREDNISolone 40 MG/ML (Solu-MEDROL) VIAL IV SCH ×2 (08:22→20:32)
[2022-04-27] MEDS: CHOLECALCIFEROL PO SCH (08:23)
[2022-04-27] MEDS: FLUTICASONE NASAL SPRAY (FLONASE) 16 GM BTL NS SCH (08:23)
[2022-04-27] MEDS: AZATHIOPRINE PO SCH ×2 (08:23→20:37)
[2022-04-27] MEDS: NYSTATIN CREAM (MYCOSTATIN) 30 GM TUBE TP SCH ×3 (08:24→20:35)
[2022-04-27] MEDS: MICONAZOLE 2% POWDER (DESENEX AF) 90 GM TOP SCH ×2 (08:24→20:35)
--- NOTE | 2022-04-27 10:14 | Progress Note ---
Subjective Date Seen by a Provider: Apr 27, 2022 Time Seen by a Provider: 10:00 Subjective/Events-last exam Pt is still really wheezy Upper respiratory wheeze noted She needs a [place] port, Dr. Hayward will see her Pulmonary consultation will be provided IV steroids still continue Review of Systems General: Fatigue, Malaise Pulmonary: Dyspnea, Cough Objective Exam Last Set of Vital Signs Vital Signs Date Time Temp Pulse Resp B/P (MAP) Pulse Ox O2 Delivery O2 Flow Rate FiO2 04/27/22 08:07 36.7 79 18 162/84 (110) 96 Nasal Cannula 3.00 04/26/22 15:42 32 Capillary Refill : I&O Intake and Output 04/27/22 00:00 Intake Total 1350 ml Output Total 2700 ml Balance -1350 ml Intake Oral 1150 ml IV Total 200 ml Output Urine Total 2700 ml # Bowel Movements 1 General: Alert, Oriented X3, Cooperative, No Acute Distress Lungs: Other (wheezing) Heart: Regular Rate Neuro: Normal Gait, Normal Speech, Strength at 5/5 X4 Ext Psych/Mental Status: Mental Status NL Results Lab Laboratory Tests 04/26/22 11:29: Glucometer 243H 04/26/22 15:14: Glucometer 245H 04/26/22 20:04: Glucometer 246H 04/27/22 05:03: White Blood Count 10.6, Red Blood Count 3.82, Hemoglobin 11.2L, Hematocrit 36, Mean Corpuscular Volume 94, Mean Corpuscular Hemoglobin 29, Mean Corpuscular Hemoglobin Concent 31L, Red Cell Distribution Width 15.4H, Platelet Count 231, Mean Platelet Volume 9.9, Immature Granulocyte % (Auto) 2, Neutrophils (%) (Auto) 87H, Lymphocytes (%) (Auto) 7L, Monocytes (%) (Auto) 4, Eosinophils (%) (Auto) 0, Basophils (%) (Auto) 0, Neutrophils # (Auto) 9.2H, Lymphocytes # (Auto) 0.8L, Monocytes # (Auto) 0.4, Eosinophils # (Auto) 0.0, Basophils # (Auto) 0.0, Immature Granulocyte # (Auto) 0.2H, Sodium Level 135, Potassium Leve l 5.0, Chloride Level 100, Carbon Dioxide Level 25, Anion Gap 10, Blood Urea Nitrogen 29H, Creatinine 1.08, Estimat Glomerular Filtration Rate 57, BUN/Creatinine Ratio 27, Glucose Level 284H, Calcium Level 9.0, Corrected Calcium 9.4, Total Bilirubin 0.3, Aspartate Amino Transf (AST/SGOT) 13, Alanine Aminotransferase (ALT/SGPT) 20, Alkaline Phosphatase 73, Total Protein 5.9L, Albumin 3.5 Microbiology 04/24/22 MRSA Screen - Final, Complete MRSA not isolated Assessment/Plan Assessment/Plan Assess & Plan/Chief Complaint Assessment: Acute on chronic hypoxic respiratory failure with acute bacterial bronchitis Myasthenia gravis Post 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 Covid infection requiring lengthy ICU stay Chronic O2 dependence Morbid obesity BMI 65 Rheumatoid arthritis Hypothyroidism Diabetes mellitus PE hx during COVID maintained prison on OAC HTN OOC Anxiety Depression Plan: Move to ICU BiPAP ABG IV abx IV steroids OAC home dose 04/25/22: Move to 4th floor IV abx and steroids Prognosis guarded prison due to weight 04/26/2022: Ambulate today IV steroids decreased to every 12 Needs [place] port placed 04/27/22: IV steroids Pulmo consult Port placement Diagnosis/Problems Diagnosis/Problems (1) Acute and chronic respiratory failure (2) COVID-19 long hauler (3) Bronchitis (4) Myasthenia gravis (5) Diabetes mellitus Status: Chronic (6) COPD (chronic obstructive pulmonary disease) (7) Rheumatoid arthritis Status: Chronic (8) RALPH on CPAP (9) Hx of pulmonary embolus Status: Acute (10) HTN (hypertension) Status: Acute (11) Morbid obesity Status: Acute FABIENNE ZAMORA DO Apr 27, 2022 10:14
--- NOTE | 2022-04-27 10:56 | Pulmonary Consultation ---
History of Present Illness History of Present Illness Date Seen by Provider: Apr 27, 2022 Time Seen by Provider: 10:43 History of Present Illness 62 F asked to see her for COPD, had COVID Aug 2020-was in MICU for 10 days,but not intubated, Had pulm embolus when Had had COVID, Still on home oxygen, taking Eliquis, not problem with OAC, . Now can walk 1-2 blocks on good day. Also told COPD but never smoker, Has wheezing and coughing. Coughs is non productive, no hemoptysis, no chest pain, no fever or chills, CTA in Sep 2020 showed multiple patchy infiltrates and a RLL pulmonary embolus. 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 Hx of RA PMH obesity, had myasthenia gravis, taking Immuran 100 mg/d and prednisone 10 every day pt feels swallowing is not normal but swallow evaluation was ok Has RALPH, uses CPAP at night 8 CWP, uses nasal CPAP DM2 on oral agents, HTN on meds, HDL on meds For wheezing takes Duoneb-helps, PRN albuterol, taking nebulized hypertonic saline In fall feels has allergies FH Hemochromatosis-three sisters have it, pt does not have it Father had DM one sister with lupus brother had pancreatic Ca SH never smoker no EtOH Allergies adhesive tape-rash, ammonia, Allergies and Home Medications Allergies Coded Allergies: adhesive tape (Verified Allergy, Intermediate, 10/15/21) BLISTERS AND RAW SKIN almond (Verified Allergy, Intermediate, Abdominal Pain, 10/15/21) Pt states having pain when she eat them. amlodipine (Verified Allergy, Unknown, 10/15/21) erythromycin base (Verified Allergy, Unknown, 10/15/21) Home Medications Acetylcysteine 600 Mg Capsule, 600 MG PO DAILY, (Reported) Albuterol Sulfate 1 Puff Puff, 2 PUFF IH Q4H PRN for SHORTNESS OF BREATH, (Repo rted) 1 PUFF = 90 MCG Alprazolam 0.5 Mg Tablet, 0.5 MG PO Q8H PRN for ANXIETY, (Reported) Apixaban 5 Mg Tablet, 5 MG PO BID, (Reported) Atorvastatin Calcium 20 Mg Tablet, 20 MG PO DAILY, (Reported) Azathioprine 50 Mg Tablet, 100 MG PO BID, (Reported) TAKES 2 (50MG) TABS Azithromycin 250 Mg Tablet, 250 MG PO DAILY, (Reported) Benzonatate 200 Mg Capsule, 200 MG PO TID PRN for COUGH, (Reported) Budesonide/Glycopyr/Formoterol 160 Mcg-9 Mcg-4.8 Mcg/Actuation Hfa.aer.ad, 2 PUFF IH BID, (Reported) Calcium Carbonate 600 Mg Tablet, 1,200 MG PO HS, (Reported) Cetirizine HCl 10 Mg Tablet, 10 MG PO DAILY, (Reported) Cholecalciferol (Vitamin D3) 25 Mcg Capsule, 25 MCG PO DAILY, (Reported) Citalopram Hydrobromide 20 Mg Tablet, 20 MG PO DAILY, (Reported) Docusate Sodium 100 Mg Tablet, 100 MG PO DAILY PRN for CONSTIPATION-1ST LINE, (Reported) Ezetimibe 10 Mg Tablet, 10 MG PO DAILY, (Reported) Fluticasone Propionate 16 Gm [place].susp, 1 SPRAY NSEACH DAILY, (Reported) Furosemide 40 Mg Tablet, 40 MG PO Q48H PRN for FLUID RETENTION, (Reported) Glyburide 1.25 Mg Tablet, 1.25 MG PO BID, (Reported) Guaifenesin 600 Mg Tab.er.12h, 600 MG PO BID PRN for CONGESTION, (Reported) Ipratropium/Albuterol Sulfate 0.5 Mg-3 Mg (2.5 Mg Base)/3 Ml Ampul.neb, 1 VIAL PO Q4H PRN for SHORTNESS OF BREATH, (Reported) Lactobac Cmb #3/Fos/Pantethine 300MM-250 Capsule, 1 EACH PO DAILY, (Reported) Levothyroxine Sodium 50 Mcg Tablet, 50 MCG PO DAILY, (Reported) Losartan Potassium 50 Mg Tablet, 50 MG PO DAILY, (Reported) Melatonin 10 Mg Tablet, 20 MG PO HS, (Reported) TAKES 2 (10MG) TABS Montelukast Sodium 10 Mg Tablet, 10 MG PO DAILY, (Reported) Pantoprazole Sodium 40 Mg Tablet.dr, 40 MG PO DAILY, (Reported) Potassium Chloride 20 Meq Tablet.er, 20 MEQ PO BID, (Reported) Prednisone 5 Mg Tablet, 5 MG PO BID, (Reported) Triamterene/Hydrochlorothiazid 1 Each Capsule, 1 CAP PO DAILY, (Reported) Venlafaxine HCl 75 Mg Cap.er.24h, 75 MG PO DAILY, (Reported) [Hypersal 3.5% Neb] 3.5% AMPUL.NEB., 1 VIAL IH Q6H PRN for SHORTNESS OF BREATH, (Reported) Past Medical/Social/Family Hx Patient Social History Marrital Status: Employed/Student: employed Tobacco Use?: No Smoking Status: Never a Smoker Use of E-Cig and/or Vaping dev: No Substance use?: No Alcohol Use?: No Pt stated abuse/neglect: No Immunizations Up To Date Influenza Vaccine Up-to-Date: Yes; Up-to-Date First/Initial COVID19 Vaccinat: 2020 Second COVID19 Vaccination Yousuf: february 2021 Tetanus Booster (TDap): Unknown Hepatitis A: No Hepatitis B: No TB Skin Test: None Date of Pneumonia Vaccine: Jan 04, 2018 Current Status status: No status: No Advance Directives: Yes Advance Directive Location: Copy placed in chart Communicates: Verbally Primary Language: Puerto Rican Preferred Spoken Language: Puerto Rican Is interpretation needed?: Yes Sensory deficits: Vision impairment Implanted or Applied Medical D: None Past Medical History Dx Myasthenia Gravis 07/2020 Review of Systems Constitutional: see HPI EENTM: see HPI Respiratory: see HPI Cardiovascular: see HPI Gastrointestinal: see HPI Genitourinary: see HPI Musculoskeletal: see HPI Skin: see HPI Psychiatric/Neurological: See HPI Sepsis Event Evaluation Height, Weight, BMI Height: 5'6.00" Weight: 297lbs. 0.0oz. [id number]; 63.77 BMI Method:Stated Exam Exam Patient acknowledged, consented, and participated in this virtual visit which was conducted using real time audio/video Vital Signs Date Time Temp Pulse Resp B/P (MAP) Pulse Ox O2 Delivery O2 Flow Rate FiO2 04/27/22 08:07 36.7 79 18 162/84 (110) 96 Nasal Cannula 3.00 04/27/22 08:00 96 Nasal Cannula 3.00 04/27/22 07:02 95 Nasal Cannula 3.00 04/27/22 03:53 36.5 83 18 138/91 (107) 96 Nasal Cannula 3.00 04/27/22 02:42 96 NIV CPAP 3.00 04/27/22 00:03 37.0 109 20 155/72 (99) 95 Nasal Cannula 3.00 04/26/22 22:29 96 Nasal Cannula 3.00 04/26/22 22:27 97 Nasal Cannula 3.00 04/26/22 20:00 Nasal Cannula 3.00 04/26/22 19:36 36.3 90 23 133/60 (84) 96 Nasal Cannula 3.00 04/26/22 18:42 97 Nasal Cannula 3.00 04/26/22 15:43 36.4 78 22 148/71 (96) 96 Nasal Cannula 3.00 04/26/22 15:42 36.0 81 96 32 04/26/22 12:18 36.0 81 19 148/73 (98) 96 Nasal Cannula 3.00 I & O 04/27/22 07:00 Intake Total 1350 ml Output Total 2500 ml Balance -1150 ml Height & Weight Height: 5'6.00" Weight: 297lbs. 0.0oz. [id number]; 63.77 BMI Method:Stated General Appearance: WD/WN, Anxious, Chronically ill, Mild Distress, Obese, Other (coughs frequently) HEENT: PERRL/EOMI, Normal ENT Inspection, Pharynx Normal Neck: Full Range of Motion, Normal Inspection, Non Tender, Supple, Carotid Bruit Respiratory: Chest Non Tender, No Respiratory Distress, Accessory Muscle Use, Wheezing Cardiovascular: Regular Rate, Rhythm, No Edema, No Gallop, No JVD, No Murmur, Normal Peripheral Pulses Gastrointestinal: normal bowel sounds, non tender Extremity: Normal Capillary Refill, Normal Inspection, Normal Range of Motion, Non Tender, No Calf Tenderness, No Pedal Edema Neurologic/Psychiatric: Alert, Oriented x3, No Motor/Sensory Deficits, Normal Mood/Affect Skin: Normal Color, Warm/Dry Lymphatic: No Adenopathy Results Lab Laboratory Tests 04/26/22 05:08 04/27/22 05:03 Assessment/Plan Assessment/Plan COPD, probably from crhonic asthma, pt is never smoker, Agree with Dr Slaughter I would keep on a once a day ICS/LABA such as Breo, would repeat CT chest looking for either resolution of GGO or development of bronchiolitis obliterans or pulmonary fibrosis, last PFT in May 2021 showed mild obstruction of airways and severe drop in DLCO suggesting an interstitial pattern. Swallowing difficulties may also be contributing though swallow ebal last done was read as ok. With obesity, RALPH, chronic lung changes on CT I would wonder about pulmonary hypertension. an echo would be helpful, though in obese pts getting a good look to estimate SPAP can be a challange, I spoke to her about weight loss. Time spent with patient (mins): 35 JAMES BRYANT MD Apr 27, 2022 10:56
[2022-04-27 11:36] VITALS: BP 178/90
[2022-04-27 15:37] VITALS: BP 145/84
[2022-04-27] MEDS: CALCIUM CARBONATE 600 MG (CALCARB) TAB PO SCH (17:06)
[2022-04-27 19:06] VITALS: BP 131/69
[2022-04-27] MEDS ORDERED: guaiFENesin (MUCINEX) 600 MG TAB PO PRN (20:15)
[2022-04-27] MEDS: MELATONIN 10 MG TABLET PO SCH (20:32)
--- NOTE | 2022-04-27 21:39 | Consultation - Surgery ---
History of Present Illness History of Present Illness Patient Consulted On(shun/time) 04/27/22 21:34 Date Seen by Provider: Apr 27, 2022 Time Seen by Provider: 13:00 History of Present Illness Consult requested by Dr. Zamora for port placement. Patient is a 62-year-old female with bacterial bronchitis and chronic effects of COVID. Patient had multiple breathing issues and multiple admissions since . Patient states extremely difficult access. Currently has a midline. Patient with a lot of difficulty obtaining access and tired of being poked so many times. Patient states her breathing is getting a little bit better this admission. She is still having some shortness of breath. She would like to discuss having a port placed. She states she has a history of pulmonary em bolism which she currently takes Eliquis for. She has no other complaints at this time. She denies any nausea vomiting fever sweats chills or chest pain at this time. Allergies and Home Medications Allergies Coded Allergies: adhesive tape (Verified Allergy, Intermediate, 10/15/21) BLISTERS AND RAW SKIN almond (Verified Allergy, Intermediate, Abdominal Pain, 10/15/21) Pt states having pain when she eat them. amlodipine (Verified Allergy, Unknown, 10/15/21) erythromycin base (Verified Allergy, Unknown, 10/15/21) Patient Home Medication List Home Medication List Reviewed: Yes Acetylcysteine (E-Ogdvnv-s-Cysteine) 600 Mg Capsule, 600 MG PO DAILY, (Reported) Entered as Reported by: MANGO DE LA TORRE on 04/26/22 0950 Last Action: Converted Albuterol Sulfate (Proair Hfa) 1 Puff Puff, 2 PUFF IH Q4H PRN for SHORTNESS OF BREATH, (Reported) Entered as Reported by: MANGO DE LA TORRE on 04/26/22 0938 Last Action: Held Alprazolam (Alprazolam) 0.5 Mg Tablet, 0.5 MG PO Q8H PRN for ANXIETY, (Reported) Entered as Reported by: NITO BREWER on 10/16/21 1125 Last Action: Reviewed Apixaban (Eliquis) 5 Mg Tablet, 5 MG PO BID, (Reported) Entered as Reported by: NITO BREWER on 01/27/21 0947 Last Action: Reviewed Atorvastatin Calcium (Atorvastatin Calcium) 20 Mg Tablet, 20 MG PO DAILY, (Reported) Entered as Reported by: NE GARRETT on 03/31/18 0950 Last Action: Reviewed Azathioprine (Imuran) 50 Mg Tablet, 100 MG PO BID, (Reported) Entered as Reported by: NITO BREWER on 10/16/21 112 Last Action: Reviewed Azithromycin (Azithromycin) 250 Mg Tablet, 250 MG PO DAILY, (Reported) Entered as Reported by: MANGO DE LA TORRE on 04/26/22 09 Last Action: Reviewed Benzonatate (Benzonatate) 200 Mg Capsule, 200 MG PO TID PRN for COUGH, (Reported) Entered as Reported by: MANGO DE LA TORRE on 04/26/22 1016 Last Action: Held Budesonide/Glycopyr/Formoterol (Breztri Aerosphere Inhaler) 160 Mcg-9 Mcg-4.8 Mcg/Actuation Hfa.aer.ad, 2 PUFF IH BID, (Reported) Entered as Reported by: MANGO DE LA TORRE on 04/26/22 0955 Last Action: Converted Calcium Carbonate (Calcium Carbonate) 600 Mg Tablet, 1,200 MG PO HS, (Reported) Entered as Reported by: NITO BREWER on 10/16/21 1135 Last Action: Reviewed Cetirizine HCl (All Day Allergy) 10 Mg Tablet, 10 MG PO DAILY, (Reported) Entered as Reported by: NITO BREWER on 10/06/20 1532 Last Action: Reviewed Cholecalciferol (Vitamin D3) (Vitamin D3) 25 Mcg Capsule, 25 MCG PO DAILY, (Reported) Entered as Reported by: NITO BREWER on 10/16/21 112 Last Action: Reviewed Citalopram Hydrobromide (Citalopram HBr) 20 Mg Tablet, 20 MG PO DAILY, (Reported) Entered as Reported by: NITO BREWER on 10/06/20 1530 Last Action: Reviewed Docusate Sodium (Stool Softener) 100 Mg Tablet, 100 MG PO DAILY PRN for CONSTIPATION-1ST LINE, (Reported) Entered as Reported by: MANGO DE LA TORRE on 04/26/22 0953 Last Action: Converted Ezetimibe (Zetia) 10 Mg Tablet, 10 MG PO DAILY, (Reported) Entered as Reported by: MANGO DE LA TORRE on 04/26/22 0952 Last Action: Continued Fluticasone Propionate (Fluticasone Propionate) 16 Gm [place].susp, 1 SPRAY NSEACH DAILY, (Reported) Entered as Reported by: NITO BREWER on 10/16/21 1125 Last Action: Reviewed Furosemide (Furosemide) 40 Mg Tablet, 40 MG PO Q48H PRN for FLUID RETENTION, (Reported) Entered as Reported by: MARIIA ALEJANDRO on 12/25/20 1838 Last Action: Reviewed Glyburide (Glyburide) 1.25 Mg Tablet, 1.25 MG PO BID, (Reported) Entered as Reported by: NITO BREWER on 10/16/21 1125 Last Action: Reviewed Guaifenesin (Mucinex) 600 Mg Tab.er.12h, 600 MG PO BID PRN for CONGESTION, (Reported) Entered as Reported by: MANGO DE LA TORRE on 04/26/22 1014 Last Action: Continued Ipratropium/Albuterol Sulfate (Iprat-Albut 0.5-3(2.5) mg/3 ml) 0.5 Mg-3 Mg (2.5 Mg Base)/3 Ml Ampul.neb, 1 VIAL PO Q4H PRN for SHORTNESS OF BREATH, (Reported) Entered as Reported by: MANGO DE LA TORRE on 04/26/22 0938 Last Action: Reviewed Lactobac Cmb #3/Fos/Pantethine (Probiotic & Acidophilus Cap) 300MM-250 Capsule, 1 EACH PO DAILY, (Reported) Entered as Reported by: MANGO DE LA TORRE on 04/26/22 0954 Last Action: Converted Levothyroxine Sodium (Levothyroxine Sodium) 50 Mcg Tablet, 50 MCG PO DAILY, (Reported) Entered as Reported by: VIVEK ROJAS on 07/31/15 1558 Last Action: Reviewed Losartan Potassium (Losartan Potassium) 50 Mg Tablet, 50 MG PO DAILY, (Reported) Entered as Reported by: NITO BREWER on 10/06/20 1530 Last Action: Reviewed Melatonin (Melatonin) 10 Mg Tablet, 20 MG PO HS, (Reported) Entered as Reported by: NITO BREWER on 04/29/21 1240 Last Action: Reviewed Montelukast Sodium (Montelukast Sodium) 10 Mg Tablet, 10 MG PO DAILY, (Reported) Entered as Reported by: EN GARRETT on 03/31/18 0950 Last Action: Reviewed Pantoprazole Sodium (Pantoprazole Sodium) 40 Mg Tablet.dr, 40 MG PO DAILY, (Reported) Entered as Reported by: NITO BREWER on 08/12/20 0919 Last Action: Edited Potassium Chloride (Potassium Chloride) 20 Meq Tablet.er, 20 MEQ PO BID, (Re ported) Entered as Reported by: NITO BREWER on 01/27/21 0947 Last Action: Reviewed Prednisone (Prednisone) 5 Mg Tablet, 5 MG PO BID, (Reported) Entered as Reported by: MANGO DE LA TORRE on 04/26/22 09 Last Action: Reviewed Triamterene/Hydrochlorothiazid (Triamterene-Hctz 37.5-25 mg Cp) 1 Each Capsule, 1 CAP PO DAILY, (Reported) Entered as Reported by: NE GARRETT on 03/31/18 0950 Last Action: Reviewed Venlafaxine HCl (Venlafaxine HCl ER) 75 Mg Cap.er.24h, 75 MG PO DAILY, (Reported) Entered as Reported by: NITO BREWER on 06/05/21 1345 Last Action: Reviewed [Hypersal 3.5% Neb] 3.5% AMPUL.NEB., 1 VIAL IH Q6H PRN for SHORTNESS OF BREATH, (Reported) Entered as Reported by: MANGO DE LA TORRE on 04/26/22 0948 Last Action: Converted Discontinued Medications Amoxicillin/Potassium Clav (Augmentin 875-125 Tablet) 1 Each Tablet, 1 EACH PO BID Prescribed by: FABIENNE ZAMORA on 12/29/21 0945 Last Action: Discontinued Prednisone (Prednisone) 10 Mg Tab.ds.pk, 10 MG PO DAILY Prescribed by: FABIENNE ZAMORA on 12/29/21945 Last Action: Discontinued Past Lomduyd-Yxzmlr-Nolwcq Hx Patient Social History Smoking Status: Never a Smoker 2nd Hand Smoke Exposure: No Recent Hopitalizations: Yes ( FOR INPATIENT REHAB) Alcohol Use?: No Have you traveled recently?: No Immunizations Up To Date Tetanus Booster (TDap): Less than 5yrs PED Vaccines UTD: Yes Date of Pneumonia Vaccine: Jan 04, 2018 Date of Influenza Vaccine: Jul 15, 2021 Seasonal Allergies Seasonal Allergies: Yes Surgeries History of Surgeries: Yes (FOOT SURGERY,LEFT LUMPECTOMY, R KNEE MINISCUS REPAIR) Surgeries: Abdominal, Cardiac, Orthopedic Respiratory History of Respiratory Disorde: Yes (CHRONIC COUGH; P.E. WITH COVID-19 INFECTION 09/2020. 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 Genitourinary History of Genitourinary Disor: Yes Genitourinary Disorders: Bladder Infection Gastrointestinal History of Gastrointestinal Di: No Gastrointestinal Disorders: Gastroesophageal Reflux Musculoskeletal History of Musculoskeletal Dis: Yes Musculoskeletal Disorders: Degenerate Disk Disease, Arthritis, Chronic Back Pain Endocrine History of Endocrine Disorders: Yes (OBESITY; MYASTHENIA GRAVIS) Endocrine Disorders: Hypothyroidsim, Diabetes, Non-Insulin dep HEENT History of HEENT Disorders: Yes HEENT Disorders: Double Vision Loss of Vision: Denies Hearing Impairment: Denies Cancer History of Cancer: No Psychosocial History of Psychiatric Problem: Yes Behavioral Health Disorders: Anxiety, Depression Integumentary History of Skin or Integumenta: No Blood Transfusions History of Blood Disorders: No Adverse Reaction to a Blood Tr: No Reviewed Nursing Assessment Reviewed/Agree w Nursing PMH: Yes Family Medical History Significant Family History: Heart Disease, Diabetes, Hypertension Family Medial History: Alcoholism G8 BROTHER G8 SISTER Alzheimer's disease 19 MOTHER Arthritis 19 FATHER Asthma G8 SISTER Cardiovascular disease 19 FATHER Cataracts 19 FATHER Coronary thrombosis 19 FATHER Deafness or hearing loss SON Diabetes mellitus 19 FATHER G8 SISTER G8 SISTER Drug abuse G8 SISTER Hypertension 19 FATHER G8 SISTER G8 SISTER Kidney disease 19 FATHER Respiratory disorder G8 SISTER G8 SISTER Seizure disorder SON Severe allergy SON Review of Systems-General Constitutional: No chills, No diaphoresis EENTM: No blurred vision, No double vision Respiratory: cough, short of breath Cardiovascular: No chest pain, No palpitations Gastrointestinal: No abdominal pain, No nausea, No vomiting Genitourinary: No decreased output, No discharge Musculoskeletal: No back pain, No joint pain Skin: No change in color, No change in hair/nails Psychiatric/Neurological: Denies Anxiety, Denies Depressed, Denies Emotional Problems All Other Systems Reviewed Negative Unless Noted: Yes (Negative excepted noted.) Physical Exam-General Problems Physical Exam Vital Signs Vital Signs - First Documented 04/23/22 04/23/22 04/26/22 16:00 18:02 15:42 Temp 36.7 Pulse 107 Resp 24 B/P (MAP) 197/75 (115) Pulse Ox 96 O2 Delivery Nasal Cannula O2 Flow Rate 2.00 FiO2 32 Capillary Refill : General Appearance: no apparent distress, obese HEENT: PERRL/EOMI, normal ENT inspection Neck: non-tender, supple Respiratory: chest non-tender, no accessory muscle use, other (slight labor with respiration, cough) Cardiovascular: regular rate, rhythm, no JVD Gastrointestinal: normal bowel sounds, soft Rectal: deferred Back: normal inspection, no CVA tenderness Extremities: non-tender, swelling Neurologic/Psychiatric: alert, normal mood/affect, oriented x 3 Skin: normal color, warm/dry Lymphatic: no adenopathy Data Review Labs Laboratory Tests 04/27/22 05:03: White Blood Count 10.6, Red Blood Count 3.82, Hemoglobin 11.2L, Hematocrit 36, Mean Corpuscular Volume 94, Mean Corpuscular Hemoglobin 29, Mean Corpuscular Hemoglobin Concent 31L, Red Cell Distribution Width 15.4H, Platelet Count 231, Mean Platelet Volume 9.9, Immature Granulocyte % (Auto) 2, Neutrophils (%) (Auto) 87H, Lymphocytes (%) (Auto) 7L, Monocytes (%) (Auto) 4, Eosinophils (%) (Auto) 0, Basophils (%) (Auto) 0, Neutrophils # (Auto) 9.2H, Lymphocytes # (Auto) 0.8L, Monocytes # (Auto) 0.4, Eosinophils # (Auto) 0.0, Basophils # (Auto) 0.0, Immature Granulocyte # (Auto) 0.2H, Sodium Level 135, Potassium Level 5.0, Chloride Level 100, Carbon Dioxide Level 25, Anion Gap 10, Blood Urea Nitrogen 29H, Creatinine 1.08, Estimat Glomerular Filtration Rate 57, BUN/Creatinine Ratio 27, Glucose Level 284H, Calcium Level 9.0, Corrected Calcium 9.4, Total Bilirubin 0.3, Aspartate Amino Transf (AST/SGOT) 13, Alanine Aminotransferase (ALT/SGPT) 20, Alkaline Phosphatase 73, Total Protein 5.9L, Albumin 3.5 04/27/22 11:13: Glucometer 199H 04/27/22 20:11: Glucometer 295H Microbiology 04/24/22 MRSA Screen - Final, Complete MRSA not isolated Assessment/Plan Assessment/Plan Assessment/Plan Poor venous access Covid syndrome Long-term anticoagulation. Obesity patient was discussed risk and benefits of having port placement. Patient understands risk and benefits and wishes to proceed. Patient on long-term anticoagulation at this time which we will put on hold and we will plan on doing port placement on . N.p.o. after midnight tomorrow. DIPAK CAMARENA DO Apr 27, 2022 21:39
[2022-04-27] MEDS: NON-FORMULARY MEDICATION 1 EA EA (Budesonide/Glycopyr/Formoterol (Breztri Aerosphere Inhal IH SCH (21:57)
[2022-04-27] MEDS ORDERED: ENOXAPARIN 100 MG/1 ML (LOVENOX) SYR SC ONE (22:00)
[2022-04-27] MEDS ORDERED: ENOXAPARIN 80 MG/0.8 ML (LOVENOX) SYR SC ONE (22:00)
[2022-04-28] VITALS (7 sets, daily range): BP systolic 144–164; BP diastolic 66–80
[2022-04-28] MEDS: RT-ALBUTEROL/IPRATROPIUM 3 ML (DUONEB) VIAL INH SCH ×6 (03:14→22:13)
[2022-04-28 05:31] LABS: BASOPHILS % (AUTO) 0 % (0-10); EOSINOPHILS % (AUTO) 0 % (0-10); HEMATOCRIT 36 % (35-52); HEMOGLOBIN 11.5 g/dL (11.5-16.0); LYMPHOCYTES # (AUTO) 0.7 10^3/uL (1.0-4.0); LYMPHOCYTES % (AUTO) 7 % (12-44); MEAN CORPUSCULAR HEMOGLOBIN 30 pg (25-34); MEAN CORPUSCULAR HGB CONC 32 g/dL (32-36); MEAN CORPUSCULAR VOLUME 94 fL (80-99); MEAN PLATELET VOLUME 9.7 fL (9.0-12.2); MONOCYTES # (AUTO) 0.4 10^3/uL (0.0-1.0); MONOCYTES % (AUTO) 4 % (0-12); NEUTROPHILS # (AUTO) 8.6 10^3/uL (1.8-7.8); NEUTROPHILS % (AUTO) 86 % (42-75); PLATELET COUNT 218 10^3/uL (130-400)
[2022-04-28 05:38] LABS: ALBUMIN 3.4 GM/DL (3.2-4.5)
[2022-04-28 05:39] LABS: POTASSIUM 4.4 MMOL/L (3.6-5.0)
[2022-04-28 05:40] LABS: CALCIUM 8.9 MG/DL (8.5-10.1)
[2022-04-28 05:41] LABS: TOTAL PROTEIN 5.8 GM/DL (6.4-8.2)
[2022-04-28 05:43] LABS: BILIRUBIN,TOTAL 0.3 MG/DL (0.1-1.0)
[2022-04-28 05:45] LABS: CREATININE SERUM 1.04 MG/DL (0.60-1.30)
[2022-04-28] MEDS: CEFEPIME 1,000 MG/NS 50 ML IVPB IV SCH ×4 (05:49→11:16)
[2022-04-28] MEDS: inSUlin ASPART (NovoLOG) 1 UNIT/0.01 ML (CHARGE PER UNIT) SC SCH ×4 (05:50→21:51)
[2022-04-28] MEDS: DOXYCYCLINE 100 MG (VIBRAMYCIN) TABLET PO SCH (05:50)
[2022-04-28] MEDS: LEVOTHYROXINE 50 MCG (LEVOTHROID) TAB PO SCH (05:50)
[2022-04-28] MEDS: glyBURIDE 2.5 MG (MICRONASE) TAB PO SCH (05:50)
--- NOTE | 2022-04-28 05:56 | Progress Note ---
Subjective Date Seen by a Provider: Apr 28, 2022 Time Seen by a Provider: 09:00 Subjective/Events-last exam Pt is doing a lot better Port will be placed tomorrow Holding Eliquis and Lovenox Denies any new issues Wheezing is better but still present Reviewed pulmonology note and I did review CT scan from December Labs are stable except for sugars due to high steroid dose Review of Systems General: Fatigue, Malaise Pulmonary: Dyspnea, Cough Neurological: Weakness Objective Exam Last Set of Vital Signs Vital Signs Date Time Temp Pulse Resp B/P (MAP) Pulse Ox O2 Delivery O2 Flow Rate FiO2 04/28/22 04:18 36.4 87 18 145/80 (101) 96 Nasal Cannula 2.00 04/26/22 15:42 32 Capillary Refill : I&O Intake and Output 04/28/22 00:00 Intake Total 2220 ml Output Total 4100 ml Balance -1880 ml Intake Oral 2120 ml IV Total 100 ml Output Urine Total 4100 ml # Bowel Movements 1 General: Alert, Oriented X3, Cooperative, No Acute Distress Lungs: Other (wheezing improved) Heart: Regular Rate Neuro: Normal Gait, Normal Speech, Strength at 5/5 X4 Ext Psych/Mental Status: Mental Status NL Results Lab Laboratory Tests 04/27/22 11:13: Glucometer 199H 04/27/22 20:11: Glucometer 295H 04/28/22 05:25: White Blood Count 10.0, Red Blood Count 3.87, Hemoglobin 11.5, Hematocrit 36, Mean Corpuscular Volume 94, Mean Corpuscular Hemoglobin 30, Mean Corpuscular Hemoglobin Concent 32, Red Cell Distribution Width 15.1H, Platelet Count 218, Mean Platelet Volume 9.7, Immature Granulocyte % (Auto) 3, Neutrophils (%) (Auto) 86H, Lymphocytes (%) (Auto) 7L, Monocytes (%) (Auto) 4, Eosinophils (%) (Auto) 0, Basophils (%) (Auto) 0, Neutrophils # (Auto) 8.6H, Lymphocytes # (Auto) 0.7L, Monocytes # (Auto) 0.4, Eosinophils # (Auto) 0.0, Basophils # (Auto) 0.0, Immature Granulocyte # (Auto) 0.3H, Sodium Level 136, Potassium Level 4.4, Chloride Level 101, Carbon Dioxide Level 25, Anion Gap 10, Blood Urea Nitrogen 32H, Creatinine 1.04, Estimat Glomerular Filtration Rate 60, BUN/Creatinine Ratio 31, Glucose Level 308H, Calcium Level 8.9, Corrected Calcium 9.4, Total Bilirubin 0.3, Aspartate Amino Transf (AST/SGOT) 11, Alanine Aminotransferase (ALT/SGPT) 21, Alkaline Phosphatase 77, Total Protein 5.8L, A lbumin 3.4 04/28/22 05:27: Glucometer 310H Microbiology 04/24/22 MRSA Screen - Final, Complete MRSA not isolated Assessment/Plan Assessment/Plan Assess & Plan/Chief Complaint Assessment: Acute on chronic hypoxic respiratory failure with acute bacterial bronchitis Myasthenia gravis Post 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 Covid infection requiring lengthy ICU stay Chronic O2 dependence Morbid obesity BMI 65 Rheumatoid arthritis Hypothyroidism Diabetes mellitus PE hx during COVID maintained salvage determiner on OAC HTN OOC Anxiety Depression Poor vascular access placing port 04/29/22 Plan: Move to ICU BiPAP ABG IV abx IV steroids OAC home dose 04/25/22: Move to 4th floor IV abx and steroids Prognosis guarded salvage determiner due to weight 04/26/2022: Ambulate today IV steroids decreased to every 12 Needs [place] port placed 04/27/22: IV steroids Pulmo consult Port placement 04/28/22: Port tomorrow Hold OAC Decrease steroids Diagnosis/Problems Diagnosis/Problems (1) Acute and chronic respiratory failure (2) COVID-19 long hauler (3) Bronchitis (4) Myasthenia gravis (5) Diabetes mellitus Status: Chronic (6) COPD (chronic obstructive pulmonary disease) (7) Rheumatoid arthritis Status: Chronic (8) RALPH on CPAP (9) Hx of pulmonary embolus Status: Acute (10) HTN (hypertension) Status: Acute (11) Morbid obesity Status: Acute FABIENNE ZAMORA DO Apr 28, 2022 05:56
[2022-04-28] MEDS: RT-BUDESONIDE NEBS 0.5 MG/2ML (PULMICORT) AMP INH SCH (06:22)
[2022-04-28] MEDS: NON-FORMULARY MEDICATION 1 EA EA (Budesonide/Glycopyr/Formoterol (Breztri Aerosphere Inhal IH SCH (06:22)
[2022-04-28] MEDS ORDERED: DOCUSATE SODIUM 100 MG (COLACE) CAP PO PRN (06:45)
[2022-04-28] MEDS: ENOXAPARIN 300 MG/3 ML (LOVENOX) MULTI-DOSE VIAL SQ SCH ×2 (07:29→08:54)
[2022-04-28] MEDS: DOCUSATE SODIUM 100 MG (COLACE) CAP PO SCH ×2 (07:43→21:58)
[2022-04-28] MEDS: LORATADINE (CLARITIN) 10 MG TAB PO SCH (07:44)
[2022-04-28] MEDS: TRIAMTERENE/HCTZ 75-50 (MAXZIDE,DYAZIDE) TABLET PO SCH (07:44)
[2022-04-28] MEDS: KCL 20 MEQ TAB (K-DUR) PO SCH ×2 (07:45→21:50)
[2022-04-28] MEDS: cloNIDine 0.1 MG (CATAPRES) TAB PO SCH ×2 (07:45→21:50)
[2022-04-28] MEDS: eZETimibe 10 MG (ZETIA) TABLET PO SCH (07:45)
[2022-04-28] MEDS: PANTOPRAZOLE 40 MG (PROTONIX) TAB PO SCH (07:45)
[2022-04-28] MEDS: SENNOSIDES 8.6 MG (SENOKOT) TAB PO SCH ×2 (07:45→21:58)
[2022-04-28] MEDS: VENlafaxine XR 75 MG (EFFEXOR XR) CAP PO SCH (07:45)
[2022-04-28] MEDS: MONTELUKAST 10 MG (SINGULAIR) TAB PO SCH (07:45)
[2022-04-28] MEDS: LOSARTAN 50 MG (COZAAR) TAB PO SCH (07:45)
[2022-04-28] MEDS: methylPREDNISolone 40 MG/ML (Solu-MEDROL) VIAL IV SCH ×2 (07:46→21:50)
[2022-04-28] MEDS: FLUTICASONE NASAL SPRAY (FLONASE) 16 GM BTL NS SCH (07:48)
[2022-04-28] MEDS: CHOLECALCIFEROL PO SCH (07:49)
[2022-04-28] MEDS: AZATHIOPRINE PO SCH ×2 (07:49→21:50)
[2022-04-28] MEDS: NYSTATIN CREAM (MYCOSTATIN) 30 GM TUBE TP SCH ×3 (07:50→21:51)
[2022-04-28] MEDS: MICONAZOLE 2% POWDER (DESENEX AF) 90 GM TOP SCH ×2 (07:50→21:51)
[2022-04-28] MEDS: LACTOBACILLUS ACIDOPHILUS (PROBIOTIC) CAPSULE PO SCH (07:51)
[2022-04-28] MEDS ORDERED: RT--FLUTICASONE/SALMETEROL 232-14 (AIRDUO RespiCLICK) IH SCH (08:00)
[2022-04-28] MEDS ORDERED: UMECLIDINIUM BROMIDE (INCRUSE ELLIPTA) 7'S IH SCH (08:00)
[2022-04-28] MEDS ORDERED: RT-HYPERTONIC SALINE 3% 4 ML NEB IH PRN (08:30)
[2022-04-28] MEDS ORDERED: NON-FORMULARY MEDICATION 1 EA EA (Acetylcysteine (N-Acetyl-l-Cysteine) 600 MG) PO SCH (09:00)
--- NOTE | 2022-04-28 10:53 | Progress Note - Surgery ---
Subjective Date Seen by a Provider: Apr 28, 2022 Time Seen by a Provider: 10:53 Subjective/Events-last exam Patient breathing is about the same. Feeling a little better she thinks. Patient no new complaints. She has no abdominal pain. She is in agreement with having port placed. She has no nausea vomiting fever sweats chills or chest pain at this time. Objective Exam Vital Signs Date Time Temp Pulse Resp B/P (MAP) Pulse Ox O2 Delivery O2 Flow Rate FiO2 04/28/22 10:25 98 Nasal Cannula 2.00 04/28/22 07:22 37.1 80 18 153/72 (99) 92 Nasal Cannula 2.00 04/28/22 06:22 97 Nasal Cannula 3.00 04/28/22 04:18 36.4 87 18 145/80 (101) 96 Nasal Cannula 2.00 04/28/22 03:14 97 Nasal Cannula 3.00 04/28/22 00:07 36.8 90 18 152/72 (98) 94 Nasal Cannula 3.00 04/27/22 21:58 96 Nasal Cannula 3.00 04/27/22 20:30 Nasal Cannula 3.00 04/27/22 19:06 37.1 98 20 131/69 (89) 95 Nasal Cannula 3.00 04/27/22 18:31 95 Nasal Cannula 3.00 04/27/22 15:37 36.9 75 16 145/84 (104) 94 Nasal Cannula 3.00 04/27/22 14:40 95 Nasal Cannula 3.00 04/27/22 11:36 36.8 81 18 178/90 (119) 96 Nasal Cannula 3.00 I & O 04/28/22 07:00 Intake Total 2120 ml Output Total 4000 ml Balance -1880 ml Capillary Refill : General Appearance: No Apparent Distress, WD/WN, Anxious, Chronically ill, Obese, Other (coughs frequently) HEENT: PERRL/EOMI, Normal ENT Inspection, Pharynx Normal Neck: Full Range of Motion, Normal Inspection, Non Tender Respiratory: Chest Non Tender, No Respiratory Distress, Accessory Muscle Use, Wheezing Cardiovascular: Regular Rate, Rhythm, No JVD, Normal Peripheral Pulses Gastrointestinal: normal bowel sounds, soft Extremity: Normal Capillary Refill, Normal Inspection, Non Tender, No Calf Tenderness, No Pedal Edema, Swelling Neurologic/Psychiatric: Alert, Oriented x3, No Motor/Sensory Deficits, Normal Mood/Affect Skin: Normal Color, Warm/Dry Lymphatic: No Adenopathy Results Lab Laboratory Tests 04/27/22 11:13: Glucometer 199H 04/27/22 20:11: Glucometer 295H 04/28/22 05:25: White Blood Count 10.0, Red Blood Count 3.87, Hemoglobin 11.5, Hematocrit 36, Mean Corpuscular Volume 94, Mean Corpuscular Hemoglobin 30, Mean Corpuscular Hemoglobin Concent 32, Red Cell Distribution Width 15.1H, Platelet Count 218, Mean Platelet Volume 9.7, Immature Granulocyte % (Auto) 3, Neutrophils (%) (Auto) 86H, Lymphocytes (%) (Auto) 7L, Monocytes (%) (Auto) 4, Eosinophils (%) (Auto) 0, Basophils (%) (Auto) 0, Neutrophils # (Auto) 8.6H, Lymphocytes # (Auto) 0.7L, Monocytes # (Auto) 0.4, Eosinophils # (Auto) 0.0, Basophils # (Auto) 0.0, Immature Granulocyte # (Auto) 0.3H, Sodium Level 136, Potassium Level 4.4, Chloride Level 101, Carbon Dioxide Level 25, Anion Gap 10, Blood Urea Nitrogen 32H, Creatinine 1.04, Estimat Glomerular Filtration Rate 60, BUN/Creatinine Ratio 31, Glucose Level 308H, Calcium Level 8.9, Corrected Calcium 9.4, Total Bilirubin 0.3, Aspartate Amino Transf (AST/SGOT) 11, Alanine Aminotransferase (ALT/SGPT) 21, Alkaline Phosphatase 77, Total Protein 5.8L, Albumin 3.4 04/28/22 05:27: Glucometer 310H 04/28/22 10:28: Glucometer 228H Microbiology 04/24/22 MRSA Screen - Final, Complete MRSA not isolated Assessment/Plan Assessment/Plan Assessment/Plan Poor venous access Covid syndrome Long-term anticoagulation. Obesity patient was discussed risk and benefits of having port placement. Patient u nderstands risk and benefits and wishes to proceed. Patient on long-term anticoagulation at this time which is on hold and we will plan on doing port placement on . N.p.o. after midnight DIPAK CAMARENA DO Apr 28, 2022 10:53
[2022-04-28] MEDS: CALCIUM CARBONATE 600 MG (CALCARB) TAB PO SCH (16:10)
[2022-04-28] MEDS: ACETAMINOPHEN 325 MG TABLET PO PRN ×2 (18:33→19:03)
[2022-04-28] MEDS: MELATONIN 10 MG TABLET PO SCH (21:51)
[2022-04-29] VITALS (9 sets, daily range): BP systolic 136–178; BP diastolic 65–96
[2022-04-29] MEDS: RT-ALBUTEROL/IPRATROPIUM 3 ML (DUONEB) VIAL INH SCH ×4 (02:16→15:32)
[2022-04-29] MEDS: LEVOTHYROXINE 50 MCG (LEVOTHROID) TAB PO SCH (05:03)
[2022-04-29] MEDS: cloNIDine 0.1 MG (CATAPRES) TAB PO PRN ×2 (05:03→15:42)
[2022-04-29 05:22] LABS: BASOPHILS % (AUTO) 0 % (0-10); EOSINOPHILS % (AUTO) 0 % (0-10); HEMATOCRIT 38 % (35-52); HEMOGLOBIN 11.9 g/dL (11.5-16.0); LYMPHOCYTES # (AUTO) 0.8 10^3/uL (1.0-4.0); LYMPHOCYTES % (AUTO) 8 % (12-44); MEAN CORPUSCULAR HEMOGLOBIN 30 pg (25-34); MEAN CORPUSCULAR HGB CONC 31 g/dL (32-36); MEAN CORPUSCULAR VOLUME 95 fL (80-99); MONOCYTES # (AUTO) 0.4 10^3/uL (0.0-1.0); MONOCYTES % (AUTO) 4 % (0-12); NEUTROPHILS # (AUTO) 8.8 10^3/uL (1.8-7.8); NEUTROPHILS % (AUTO) 84 % (42-75); PLATELET COUNT 233 10^3/uL (130-400); WHITE BLOOD COUNT 10.5 10^3/uL (4.3-11.0)
[2022-04-29 05:55] LABS: ALBUMIN 3.4 GM/DL (3.2-4.5); POTASSIUM 4.7 MMOL/L (3.6-5.0)
[2022-04-29 05:56] LABS: CALCIUM 8.9 MG/DL (8.5-10.1)
[2022-04-29 05:58] LABS: TOTAL PROTEIN 5.9 GM/DL (6.4-8.2)
[2022-04-29 05:59] LABS: BILIRUBIN,TOTAL 0.4 MG/DL (0.1-1.0)
[2022-04-29 06:01] LABS: CREATININE SERUM 1.03 MG/DL (0.60-1.30)
[2022-04-29] MEDS: glyBURIDE 2.5 MG (MICRONASE) TAB PO SCH (06:04)
[2022-04-29] MEDS: inSUlin ASPART (NovoLOG) 1 UNIT/0.01 ML (CHARGE PER UNIT) SC SCH ×3 (06:59→15:42)
[2022-04-29] MEDS: DOCUSATE SODIUM 100 MG (COLACE) CAP PO SCH (08:34)
[2022-04-29] MEDS: LACTOBACILLUS ACIDOPHILUS (PROBIOTIC) CAPSULE PO SCH (08:34)
[2022-04-29] MEDS: SENNOSIDES 8.6 MG (SENOKOT) TAB PO SCH (08:34)
[2022-04-29] MEDS: CHOLECALCIFEROL PO SCH (09:00)
[2022-04-29] MEDS: KCL 20 MEQ TAB (K-DUR) PO SCH (09:00)
[2022-04-29] MEDS: FLUTICASONE NASAL SPRAY (FLONASE) 16 GM BTL NS SCH (09:00)
[2022-04-29] MEDS: cloNIDine 0.1 MG (CATAPRES) TAB PO SCH (09:00)
[2022-04-29] MEDS: methylPREDNISolone 40 MG/ML (Solu-MEDROL) VIAL IV SCH (09:08)
[2022-04-29] MEDS: MICONAZOLE 2% POWDER (DESENEX AF) 90 GM TOP SCH (09:08)
[2022-04-29] MEDS: NYSTATIN CREAM (MYCOSTATIN) 30 GM TUBE TP SCH ×2 (09:08→13:10)
[2022-04-29] MEDS ORDERED: 0.9% SODIUM CHLORIDE PF INJ 20 ML VIAL ONE (10:41)
[2022-04-29] MEDS ORDERED: LIDOCAINE/EPI 2% 1:200,00 (XYLOCAINE) 20 ML VIAL ONE (10:41)
[2022-04-29] MEDS ORDERED: HEParin (CENTRAL IV FLUSH) 500 UNIT/5 ML SYR ONE (10:42)
[2022-04-29] MEDS ORDERED: LACTATED RINGERS 1,000 ML IV PRN (11:15)
[2022-04-29] MEDS ORDERED: KETAMINE 50 MG/5 ML SYRINGE ONE (11:20)
[2022-04-29] MEDS ORDERED: PROPOFOL INJECTION 50 ML IV ONE (11:20)
[2022-04-29] MEDS ORDERED: MIDAZOLAM 2 MG/2 ML (VERSED) VIAL ONE (11:20)
[2022-04-29] MEDS ORDERED: PRED10TA22 PO (11:34)
[2022-04-29] MEDS ORDERED: MICO90PO TOP (11:34)
[2022-04-29] MEDS ORDERED: GLBR2.5T PO (11:34)
[2022-04-29] MEDS ORDERED: CLN.1T PO (11:34)
[2022-04-29] MEDS ORDERED: NYST15CR TP (11:34)
--- NOTE | 2022-04-29 11:36 | Discharge Summary ---
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 HTN OOC Anxiety Depression Poor vascular access placing port 04/29/22 Plan: Move to ICU BiPAP ABG IV abx IV steroids OAC home dose 04/25/22: Move to 4th floor IV abx and steroids Prognosis guarded custodial due to weight 04/26/2022: Ambulate today IV steroids decreased to every 12 Needs [place] port placed 04/27/22: IV steroids Pulmo consult Port placement 04/28/22: Port tomorrow Hold OAC Decrease steroids Discharge Summary Discharge Physical Examination Allergies: Coded Allergies: adhesive tape (Verified Allergy, Intermediate, 10/15/21) BLISTERS AND RAW SKIN almond (Verified Allergy, Intermediate, Abdominal Pain, 10/15/21) Pt states having pain when she eat them. amlodipine (Verified Allergy, Unknown, 10/15/21) erythromycin base (Verified Allergy, Unknown, 10/15/21) Vitals & I&Os Vital Signs Date Time Temp Pulse Resp B/P (MAP) Pulse Ox O2 Delivery O2 Flow Rate FiO2 04/29/22 17:30 04/29/22 17:14 78 04/29/22 15:32 97 Nasal Cannula 3.00 04/29/22 15:24 36.5 22 04/29/22 00:54 32 General Appearance: Alert, Oriented X3, Cooperative Respiratory: Other (subtle wheeze) Cardiovascular: Regular Rate Psych/Mental Status: Mental Status NL Hospital Course Was the Problem List Reviewed?: Yes Pt had an uneventful hospital course for 6 days after she was admitted for exacerbation of COPD. She was found to have bacterial bronchitis and exace rbation requiring antibiotics and IV steroids. High sugars from the steroids occured. Insulin initiated. Port was placed by Dr. Hayward at day of discharge due to poor vascular access and multiple hospitalizations in the past and predicted for the future. Overall she did well. We will do a Prednisone taper dose and have close follow up with me. Labs (last 24 hrs) Laboratory Tests 04/23/22 16:50: White Blood Count 6.4, Red Blood Count 4.25, Hemoglobin 12.8, Hematocrit 41, Mean Corpuscular Volume 96, Mean Corpuscular Hemoglobin 30, Mean Corpuscular Hemoglobin Concent 31L, Red Cell Distribution Width 14.3, Platelet Count 226, Mean Platelet Volume 9.4, Immature Granulocyte % (Auto) 1, Neutrophils (%) (Auto) 77H, Lymphocytes (%) (Auto) 13, Monocytes (%) (Auto) 7, Eosinophils (%) (Auto) 2, Basophils (%) (Auto) 1, Neutrophils # (Auto) 4.9, Lymphocytes # (Auto) 0.8L, Monocytes # (Auto) 0.4, Eosinophils # (Auto) 0.1, Basophils # (Auto) 0.0, Immature Granulocyte # (Auto) 0.1, Sodium Level 142, Potassium Level 4.0, Chloride Level 101, Carbon Dioxide Level 29, Anion Gap 12, Blood Urea Nitrogen 19H, Creatinine 0.82, Estimat Glomerular Filtration Rate 80, BUN/Creatinine R atio 23, Glucose Level 156H, Lactic Acid Level 2.06*H, Calcium Level 9.4, Corrected Calcium 9.6, Total Bilirubin 0.6, Aspartate Amino Transf (AST/SGOT) 17, Alanine Aminotransferase (ALT/SGPT) 21, Alkaline Phosphatase 100, Total Protein 6.7, Albumin 3.8, Procalcitonin 0.05 04/23/22 19:05: Lactic Acid Level 2.25*H 04/23/22 21:05: Glucometer 298H 04/24/22 05:46: White Blood Count 8.0, Red Blood Count 4.20, Hemoglobin 12.5, Hematocrit 40, Mean Corpuscular Volume 95, Mean Corpuscular Hemoglobin 30, Mean Corpuscular Hemoglobin Concent 31L, Red Cell Distribution Width 14.5, Platelet Count 225, Mean Platelet Volume 9.7, Immature Granulocyte % (Auto) 1, Neutrophils (%) (Auto) 93H, Lymphocytes (%) (Auto) 5L, Monocytes (%) (Auto) 1, Eosinophils (%) (Auto) 0, Basophils (%) (Auto) 0, Neutrophils # (Auto) 7.5, Lymphocytes # (Auto) 0.4L, Monocytes # (Auto) 0.1, Eosinophils # (Auto) 0.0, Basophils # (Auto) 0.0, Immature Granulocyte # (Auto) 0.1, Sodium Level 138, Potassium Level 4.3, Chloride Level 103, Carbon Dioxide Level 23, Anion Gap 12, Blood Urea Nitrogen 21H, Creatinine 0.91, Estimat Glomerular Filtration Rate 70, BUN/Creatinine Ratio 23, Glucose Level 251H, Calcium Level 9.5, Corrected Calcium 9.7, Total Bilirubin 0.4, Aspartate Amino Transf (AST/SGOT) 15, Alanine Aminotransferase (ALT/SGPT) 22, Alkaline Phosphatase 97, Total Protein 6.6, Albumin 3.8, Glucometer 255H, Neutrophils % (Manual) 91, Lymphocytes % (Manual) 4, Monocytes % (Manual) 1, Band Neutrophils 4, Blood Morphology Comment NORMAL 04/24/22 11:27: Glucometer 284H 04/24/22 14:39: POC pH (Misc Panel) 7.375, POC Base Excess (Misc Panel) -2, POC pO2 (Misc Panel) 102, POC pCO2 (Misc Panel) 39.1L, POC HCO3 (Misc Panel) 22.9L, POC Blood Gas Total CO2 Calc 24, Bedside Bl Gas O2 Saturation (Calc) 98, Bedside Lactic Acid 04/24/22 17:01: Glucometer 267H 04/24/22 20:35: Glucometer 274H 04/25/22 04:26: White Blood Count 14.2H, Red Blood Count 4.05, Hemoglobin 11.9, Hematocrit 38, Mean Corpuscular Volume 94, Mean Corpuscular Hemoglobin 29, Mean Corpuscular Hemoglobin Concent 31L, Red Cell Distribution Width 15.2H, Platelet Count 247, Mean Platelet Volume 10.0, Immature Granulocyte % (Auto) 1, Neutrophils (%) (Auto) 92H, Lymphocytes (%) (Auto) 4L, Monocytes (%) (Auto) 3, Eosinophils (%) (Auto) 0, Basophils (%) (Auto) 0, Neutrophils # (Auto) 13.1H, Lymphocytes # (Auto) 0.6L, Monocytes # (Auto) 0.4, Eosinophils # (Auto) 0.0, Basophils # (Auto) 0.0, Immature Granulocyte # (Auto) 0.1, Sodium Level 138, Potassium Level 4.4, Chloride Level 104, Carbon Dioxide Level 20L, Anion Gap 14, Blood Urea Nitrogen 25H, Creatinine 1.16, Estimat Glomerular Filtration Rate 53, BUN/Creatinine Ratio 22, Glucose Level 302H, Calcium Level 9.5, Corrected Ca lcium 9.7, Total Bilirubin 0.2, Aspartate Amino Transf (AST/SGOT) 14, Alanine Aminotransferase (ALT/SGPT) 20, Alkaline Phosphatase 88, Total Protein 6.5, Albumin 3.7 04/25/22 10:46: Glucometer 256H 04/25/22 15:36: Glucometer 280H 04/25/22 20:42: Glucometer 234H 04/26/22 05:08: White Blood Count 15.0H, Red Blood Count 3.91, Hemoglobin 11.5, Hematocrit 37, Mean Corpuscular Volume 94, Mean Corpuscular Hemoglobin 29, Mean Corpuscular Hemoglobin Concent 31L, Red Cell Distribution Width 15.4H, Platelet Count 251, Mean Platelet Volume 10.1, Immature Granulocyte % (Auto) 1, Neutrophils (%) (Auto) 92H, Lymphocytes (%) (Auto) 5L, Monocytes (%) (Auto) 2, Eosinophils (%) (Auto) 0, Basophils (%) (Auto) 0, Neutrophils # (Auto) 13.8H, Lymphocytes # (Auto) 0.7L, Monocytes # (Auto) 0.3, Eosinophils # (Auto) 0.0, Basophils # (Auto) 0.0, Immature Granulocyte # (Auto) 0.1, Sodium Level 135, Potassium Level 4.3, Chloride Level 102, Carbon Dioxide Level 19L, Anion Gap 14, Blood Urea Nitrogen 32H, Creatinine 1.16, Estimat Glomerular Filtration Rate 53, BUN/Creatinine Ratio 28, Glucose Level 301H, Calcium Level 9.3, Corrected Calcium 9.6, Total Bilirubin 0.2, Aspartate Amino Transf (AST/SGOT) 13, Alanine Aminotransferase (ALT/SGPT) 21, Alkaline Phosphatase 83, Total Protein 6.2L, Albumin 3.6 04/26/22 05:47: Glucometer 285H 04/26/22 11:29: Glucometer 243H 04/26/22 15:14: Glucometer 245H 04/26/22 20:04: Glucometer 246H 04/27/22 05:03: White Blood Count 10.6, Red Blood Count 3.82, Hemoglobin 11.2L, Hematocrit 36, Mean Corpuscular Volume 94, Mean Corpuscular Hemoglobin 29, Mean Corpuscular Hemoglobin Concent 31L, Red Cell Distribution Width 15.4H, Platelet Count 231, Mean Platelet Volume 9.9, Immature Granulocyte % (Auto) 2, Neutrophils (%) (Auto) 87H, Lymphocytes (%) (Auto) 7L, Monocytes (%) (Auto) 4, Eosinophils (%) (Auto) 0, Basophils (%) (Auto) 0, Neutrophils # (Auto) 9.2H, Lymphocytes # (Auto) 0.8L, Monocytes # (Auto) 0.4, Eosinophils # (Auto) 0.0, Basophils # (Auto) 0.0, Immature Granulocyte # (Auto) 0.2H, Sodium Level 135, Potassium Level 5.0, Chloride Level 100, Carbon Dioxide Level 25, Anion Gap 10, Blood Urea Nitrogen 29H, Creatinine 1.08, Estimat Glomerular Filtration Rate 57, BUN/Creatinine Ratio 27, Glucose Level 284H, Calcium Level 9.0, Corrected Calcium 9.4, Total Bilirubin 0.3, Aspartate Amino Transf (AST/SGOT) 13, Alanine Aminotransferase (ALT/SGPT) 20, Alkaline Phosphatase 73, Total Protein 5.9L, Albumin 3.5 04/27/22 11:13: Glucometer 199H 04/27/22 20:11: Glucometer 295H 04/28/22 05:25: White Blood Count 10.0, Red Blood Count 3.87, Hemoglobin 11.5, Hematocrit 36, Mean Corpuscular Volume 94, Mean Corpuscular Hemoglobin 30, Mean Corpuscular Hemoglobin Concent 32, Red Cell Distribution Width 15.1H, Platelet Count 218, Mean Platelet Volume 9.7, Immature Granulocyte % (Auto) 3, Neutrophils (%) (Auto) 86H, Lymphocytes (%) (Auto) 7L, Monocytes (%) (Auto) 4, Eosinophils (%) (Auto) 0, Basophils (%) (Auto) 0, Neutrophils # (Auto) 8.6H, Lymphocytes # (Auto) 0.7L, Monocytes # (Auto) 0.4, Eosinophils # (Auto) 0.0, Basophils # (Auto) 0.0, Immature Granulocyte # (Auto) 0.3H, Sodium Level 136, Potassium Level 4.4, Chloride Level 101, Carbon Dioxide Level 25, Anion Gap 10, Blood Urea Nitrogen 32H, Creatinine 1.04, Estimat Glomerular Filtration Rate 60, BUN/Creatinine Ratio 31, Glucose Level 308H, Calcium Level 8.9, Corrected Calcium 9.4, Total Bilirubin 0.3, Aspartate Amino Transf (AST/SGOT) 11, Alanine Aminotransferase (ALT/SGPT) 21, Alkaline Phosphatase 77, Total Protein 5.8L, Albumin 3.4 04/28/22 05:27: Glucometer 310H 04/28/22 10:28: Glucometer 228H 04/28/22 15:49: Glucometer 255H 04/28/22 20:18: Glucometer 239H 04/29/22 05:14: White Blood Count 10.5, Red Blood Count 4.00, Hemoglobin 11.9, Hematocrit 38, Mean Corpuscular Volume 95, Mean Corpuscular Hemoglobin 30, Mean Corpuscular Hemoglobin Concent 31L, Red Cell Distribution Width 14.8H, Platelet Count 233, Mean Platelet Volume 10.0, Immature Granulocyte % (Auto) 4, Neutrophils (%) (Auto) 84H, Lymphocytes (%) (Auto) 8L, Monocytes (%) (Auto) 4, Eosinophils (%) (Auto) 0, Basophils (%) (Auto) 0, Neutrophils # (Auto) 8.8H, Lymphocytes # (Auto) 0.8L, Monocytes # (Auto) 0.4, Eosinophils # (Auto) 0.0, Basophils # (Auto) 0.0, Immature Granulocyte # (Auto) 0.4H, Sodium Level 136, Potassium Level 4.7, Chloride Level 100, Carbon Dioxide Level 26, Anion Gap 10, Blood Urea Nitrogen 28H, Creatinine 1.03, Estimat Glomerular Filtration Rate 61, BUN/Creatinine Ratio 27, Glucose Level 308H, Calcium Level 8.9, Corrected Calcium 9.4, Total Bilirubin 0.4, Aspartate Amino Transf (AST/SGOT) 11, Alanine Aminotransferase (ALT/SGPT) 22, Alkaline Phosphatase 78, Total Protein 5.9L, Albumin 3.4 04/29/22 07:15: Glucometer 283H 04/29/22 15:30: Glucometer 233H Microbiology 04/28/22 MRSA Screen - Final, Complete MRSA not isolated 04/24/22 MRSA Screen - Final, Complete MRSA not isolated Pending Labs Microbiology Date/Time Source Procedure Growth Status 04/28/22 13:35 Nasal MRSA Screen - Final MRSA not isolated Complete 04/24/22 14:25 Nose MRSA Screen - Final MRSA not isolated Complete Laboratory Tests 04/23/22 16:50: White Blood Count 6.4, Red Blood Count 4.25, Hemoglobin 12.8, Hematocrit 41, Mean Corpuscular Volume 96, Mean Corpuscular Hemoglobin 30, Mean Corpuscular Hemoglobin Concent 31, Red Cell Distribution Width 14.3, Platelet Count 226, Mean Platelet Volume 9.4, Immature Granulocyte % (Auto) 1, Neutrophils (%) (Auto) 77, Lymphocytes (%) (Auto) 13, Monocytes (%) (Auto) 7, Eosinophils (%) (Auto) 2, Basophils (%) (Auto) 1, Neutrophils # (Auto) 4.9, Lymphocytes # (Auto) 0.8, Monocytes # (Auto) 0.4, Eosinophils # (Auto) 0.1, Basophils # (Auto) 0.0, Immature Granulocyte # (Auto) 0.1, Sodium Level 142, Potassium Level 4.0, Chloride Level 101, Carbon Dioxide Level 29, Anion Gap 12, Blood Urea Nitrogen 19, Creatinine 0.82, Estimat Glomerular Filtration Rate 80, BUN/Creatinine Ratio 23, Glucose Level 156, Lactic Acid Level 2.06, Calcium Level 9.4, Corrected Calcium 9.6, Total Bilirubin 0.6, Aspartate Amino Transf (AST/SGOT) 17, Alanine Aminotransferase (ALT/SGPT) 21, Alkaline Phosphatase 100, Total Protein 6.7, Albumin 3.8, Procalcitonin 0.05 04/23/22 19:05: Lactic Acid Level 2.25 04/23/22 21:05: Glucometer 298 04/24/22 05:46: White Blood Count 8.0, Red Blood Count 4.20, Hemoglobin 12.5, Hematocrit 40, Mean Corpuscular Volume 95, Mean Corpuscular Hemoglobin 30, Mean Corpuscular Hemoglobin Concent 31, Red Cell Distribution Width 14.5, Platelet Count 225, Mean Platelet Volume 9.7, Immature Granulocyte % (Auto) 1, Neutrophils (%) (Auto) 93, Lymphocytes (%) (Auto) 5, Monocytes (%) (Auto) 1, Eosinophils (%) (Auto) 0, Basophils (%) (Auto) 0, Neutrophils # (Auto) 7.5, Lymphocytes # (Auto) 0.4, Monocytes # (Auto) 0.1, Eosinophils # (Auto) 0.0, Basophils # (Auto) 0.0, Immature Granulocyte # (Auto) 0.1, Sodium Level 138, Potassium Level 4.3, Chloride Level 103, Carbon Dioxide Level 23, Anion Gap 12, Blood Urea Nitrogen 21, Creatinine 0.91, Estimat Glomerular Filtration Rate 70, BUN/Creatinine Ratio 23, Glucose Level 251, Calcium Level 9.5, Corrected Calcium 9.7, Total Bilirubin 0.4, Aspartate Amino Transf (AST/SGOT) 15, Alanine Aminotransferase (ALT/SGPT) 22, Alkaline Phosphatase 97, Total Protein 6.6, Albumin 3.8, Glucometer 255, Neutrophils % (Manual) 91, Lymphocytes % (Manual) 4, Monocytes % (Manual) 1, Band Neutrophils 4, Blood Morphology Comment NORMAL 04/24/22 11:27: Glucometer 284 04/24/22 14:39: POC pH (Misc Panel) 7.375, POC Base Excess (Misc Panel) -2, POC pO2 (Misc Panel) 102, POC pCO2 (Misc Panel) 39.1, POC HCO3 (Misc Panel) 22.9, POC Blood Gas Total CO2 Calc 24, Bedside Bl Gas O2 Saturation (Calc) 98, Bedside Lactic Acid 04/24/22 17:01: Glucometer 267 04/24/22 20:35: Glucometer 274 04/25/22 04:26: White Blood Count 14.2, Red Blood Count 4.05, Hemoglobin 11.9, Hematocrit 38, Mean Corpuscular Volume 94, Mean Corpuscular Hemoglobin 29, Mean Corpuscular Hemoglobin Concent 31, Red Cell Distribution Width 15.2, Platelet Count 247, Mean Platelet Volume 10.0, Immature Granulocyte % (Auto) 1, Neutrophils (%) (Auto) 92, Lymphocytes (%) (Auto) 4, Monocytes (%) (Auto) 3, Eosinophils (%) (Auto) 0, Basophils (%) (Auto) 0, Neutrophils # (Auto) 13.1, Lymphocytes # (Auto) 0.6, Monocytes # (Auto) 0.4, Eosinophils # (Auto) 0.0, Basophils # (Auto) 0.0, Immature Granulocyte # (Auto) 0.1, Sodium Level 138, Potassium Level 4.4, Chloride Level 104, Carbon Dioxide Level 20, Anion Gap 14, Blood Urea Nitrogen 25, Creatinine 1.16, Estimat Glomerular Filtration Rate 53, BUN/Creatinine Ratio 22, Glucose Level 302, Calcium Level 9.5, Corrected Calcium 9.7, Total Bilirubin 0.2, Aspartate Amino Transf (AST/SGOT) 14, Alanine Aminotransferase (ALT/SGPT) 20, Alkaline Phosphatase 88, Total Protein 6.5, Albumin 3.7 04/25/22 10:46: Glucometer 256 04/25/22 15:36: Glucometer 280 04/25/22 20:42: Glucometer 234 04/26/22 05:08: White Blood Count 15.0, Red Blood Count 3.91, Hemoglobin 11.5, Hematocrit 37, Mean Corpuscular Volume 94, Mean Corpuscular Hemoglobin 29, Mean Corpuscular Hemoglobin Concent 31, Red Cell Distribution Width 15.4, Platelet Count 251, Mean Platelet Volume 10.1, Immature Granulocyte % (Auto) 1, Neutrophils (%) (Auto) 92, Lymphocytes (%) (Auto) 5, Monocytes (%) (Auto) 2, Eosinophils (%) (Auto) 0, Basophils (%) (Auto) 0, Neutrophils # (Auto) 13.8, Lymphocytes # (Auto) 0.7, Monocytes # (Auto) 0.3, Eosinophils # (Auto) 0.0, Basophils # (Auto) 0.0, Immature Granulocyte # (Auto) 0.1, Sodium Level 135, Potassium Level 4.3, Chloride Level 102, Carbon Dioxide Level 19, Anion Gap 14, Blood Urea Nitrogen 32, Creatinine 1.16, Estimat Glomerular Filtration Rate 53, BUN/Creatinine Ratio 28, Glucose Level 301, Calcium Level 9.3, Corrected Calcium 9.6, Total Bilirubin 0.2, Aspartate Amino Transf (AST/SGOT) 13, Alanine Aminotransferase (ALT/SGPT) 21, Alkaline Phosphatase 83, Total Protein 6.2, Albumin 3.6 04/26/22 05:47: Glucometer 285 04/26/22 11:29: Glucometer 243 04/26/22 15:14: Glucometer 245 04/26/22 20:04: Glucometer 246 04/27/22 05:03: White Blood Count 10.6, Red Blood Count 3.82, Hemoglobin 11.2, Hematocrit 36, Mean Corpuscular Volume 94, Mean Corpuscular Hemoglobin 29, Mean Corpuscular Hemoglobin Concent 31, Red Cell Distribution Width 15.4, Platelet Count 231, Mean Platelet Volume 9.9, Immature Granulocyte % (Auto) 2, Neutrophils (%) (Auto) 87, Lymphocytes (%) (Auto) 7, Monocytes (%) (Auto) 4, Eosinophils (%) (Auto) 0, Basophils (%) (Auto) 0, Neutrophils # (Auto) 9.2, Lymphocytes # (Auto) 0.8, Monocytes # (Auto) 0.4, Eosinophils # (Auto) 0.0, Basophils # (Auto) 0.0, Immature Granulocyte # (Auto) 0.2, Sodium Level 135, Potassium Level 5.0, Chloride Level 100, Carbon Dioxide Level 25, Anion Gap 10, Blood Urea Nitrogen 29, Creatinine 1.08, Estimat Glomerular Filtration Rate 57, BUN/Creatinine Ratio 27, Glucose Level 284, Calcium Level 9.0, Corrected Calcium 9.4, Total Bilirubin 0.3, Aspartate Amino Transf (AST/SGOT) 13, Alanine Aminotransferase (ALT/SGPT) 20, Alkaline Phosphatase 73, Total Protein 5.9, Albumin 3.5 04/27/22 11:13: Glucometer 199 04/27/22 20:11: Glucometer 295 04/28/22 05:25: White Blood Count 10.0, Red Blood Count 3.87, Hemoglobin 11.5, Hematocrit 36, Mean Corpuscular Volume 94, Mean Corpuscular Hemoglobin 30, Mean Corpuscular H emoglobin Concent 32, Red Cell Distribution Width 15.1, Platelet Count 218, Mean Platelet Volume 9.7, Immature Granulocyte % (Auto) 3, Neutrophils (%) (Auto) 86, Lymphocytes (%) (Auto) 7, Monocytes (%) (Auto) 4, Eosinophils (%) (Auto) 0, Basophils (%) (Auto) 0, Neutrophils # (Auto) 8.6, Lymphocytes # (Auto) 0.7, Monocytes # (Auto) 0.4, Eosinophils # (Auto) 0.0, Basophils # (Auto) 0.0, Immature Granulocyte # (Auto) 0.3, Sodium Level 136, Potassium Level 4.4, Chloride Level 101, Carbon Dioxide Level 25, Anion Gap 10, Blood Urea Nitrogen 32, Creatinine 1.04, Estimat Glomerular Filtration Rate 60, BUN/Creatinine Ratio 31, Glucose Level 308, Calcium Level 8.9, Corrected Calcium 9.4, Total Bilirubin 0.3, Aspartate Amino Transf (AST/SGOT) 11, Alanine Aminotransferase (ALT/SGPT) 21, Alkaline Phosphatase 77, Total Protein 5.8, Albumin 3.4 04/28/22 05:27: Glucometer 310 04/28/22 10:28: Glucometer 228 04/28/22 15:49: Glucometer 255 04/28/22 20:18: Glucometer 239 04/29/22 05:14: White Blood Count 10.5, Red Blood Count 4.00, Hemoglobin 11.9, Hematocrit 38, Mean Corpuscular Volume 95, Mean Corpuscular Hemoglobin 30, Mean Corpuscular Hemoglobin Concent 31, Red Cell Distribution Width 14.8, Platelet Count 233, Mean Platelet Volume 10.0, Immature Granulocyte % (Auto) 4, Neutrophils (%) (Auto) 84, Lymphocytes (%) (Auto) 8, Monocytes (%) (Auto) 4, Eosinophils (%) (Auto) 0, Basophils (%) (Auto) 0, Neutrophils # (Auto) 8.8, Lymphocytes # (Auto) 0.8, Monocytes # (Auto) 0.4, Eosinophils # (Auto) 0.0, Basophils # (Auto) 0.0, Immature Granulocyte # (Auto) 0.4, Sodium Level 136, Potassium Level 4.7, Chloride Level 100, Carbon Dioxide Level 26, Anion Gap 10, Blood Urea Nitrogen 28, Creatinine 1.03, Estimat Glomerular Filtration Rate 61, BUN/Creatinine Ratio 27, Glucose Level 308, Calcium Level 8.9, Corrected Calcium 9.4, Total Bilirubin 0.4, Aspartate Amino Transf (AST/SGOT) 11, Alanine Aminotransferase (ALT/SGPT) 22, Alkaline Phosphatase 78, Total Protein 5.9, Albumin 3.4 04/29/22 07:15: Glucometer 283 04/29/22 15:30: Glucometer 233 Discharge Home Medications: Active Scripts Active Prednisone 10 Mg Tab.ds.pk 10 Mg PO DAILY Take 6 tabs(60mg)daily,decrease by 1 tab(10MG)daily. Nystatin 100,000 Unit/Gram Cream..g. 0 Gm TP TID Lotrimin AF (Miconazole Nitrate) 2 % Powder 0 Gm TOP BID Glyburide 2.5 Mg Tablet 2.5 Mg PO DAILY@0630 Clonidine HCl 0.1 Mg Tablet 0.1 Mg PO BID 365 Days Reported Benzonatate 200 Mg Capsule 200 Mg PO TID PRN Mucinex (Guaifenesin) 600 Mg Tab.er.12h 600 Mg PO BID PRN Breztri Aerosphere Inhaler (Budesonide/Glycopyr/Formoterol) 160 Mcg-9 Mcg-4.8 Mcg/Actuation Hfa.aer.ad 2 Puff IH BID Probiotic & Acidophilus Cap (Lactobac Cmb #3/Fos/Pantethine) 300MM-250 Capsule 1 Each PO DAILY Stool Softener (Docusate Sodium) 100 Mg Tablet 100 Mg PO DAILY PRN Zetia (Ezetimibe) 10 Mg Tablet 10 Mg PO DAILY Z-Vpdwek-c-Cysteine (Acetylcysteine) 600 Mg Capsule 600 Mg PO DAILY [Hypersal 3.5% Neb] 3.5% Ampul.neb. 1 Vial IH Q6H PRN Proair Hfa (Albuterol Sulfate) 1 Puff Puff 2 Puff IH Q4H PRN 1 PUFF = 90 MCG Iprat-Albut 0.5-3(2.5) mg/3 ml (Ipratropium/Albuterol Sulfate) 0.5 Mg-3 Mg (2.5 Mg Base)/3 Ml Ampul.neb 1 Vial PO Q4H PRN Azithromycin 250 Mg Tablet 250 Mg PO DAILY Calcium Carbonate 600 Mg Tablet 1,200 Mg PO HS Vitamin D3 (Cholecalciferol (Vitamin D3)) 25 Mcg Capsule 25 Mcg PO DAILY Fluticasone Propionate 16 Gm [place].susp 1 [place] NSEACH DAILY Alprazolam 0.5 Mg Tablet 0.5 Mg PO Q8H PRN Imuran (Azathioprine) 50 Mg Tablet 100 Mg PO BID TAKES 2 (50MG) TABS Venlafaxine HCl ER (Venlafaxine HCl) 75 Mg Cap.er.24h 75 Mg PO DAILY Melatonin 10 Mg Tablet 20 Mg PO HS TAKES 2 (10MG) TABS Eliquis (Apixaban) 5 Mg Tablet 5 Mg PO BID Potassium Chloride 20 Meq Tablet.er 20 Meq PO BID Furosemide 40 Mg Tablet 40 Mg PO Q48H PRN All Day Allergy (Cetirizine HCl) 10 Mg Tablet 10 Mg PO DAILY Losartan Potassium 50 Mg Tablet 50 Mg PO DAILY Citalopram HBr (Citalopram Hydrobromide) 20 Mg Tablet 20 Mg PO DAILY Pantoprazole Sodium 40 Mg Tablet.dr 40 Mg PO DAILY Atorvastatin Calcium 20 Mg Tablet 20 Mg PO DAILY Triamterene-Hctz 37.5-25 mg Cp (Triamterene/Hydrochlorothiazid) 1 Each Capsule 1 Cap PO DAILY Montelukast Sodium 10 Mg Tablet 10 Mg PO DAILY Levothyroxine Sodium 50 Mcg Tablet 50 Mcg PO DAILY Instructions to patient/family Please see electronic discharge instructions given to patient. Diagnosis/Problems Diagnosis/Problems (1) Acute and chronic respiratory failure Qualifiers: Qualified Codes: J96.20 - Acute and chronic respiratory failure, unspecified whether with hypoxia or hypercapnia (2) COVID-19 long hauler (3) Bronchitis (4) Myasthenia gravis (5) Diabetes mellitus Status: Chronic (6) COPD (chronic obstructive pulmonary disease) (7) Rheumatoid arthritis Status: Chronic (8) RALPH on CPAP (9) Hx of pulmonary embolus Status: Acute (10) HTN (hypertension) Status: Acute (11) Morbid obesity Status: Acute FABIENNE ZAMORA DO Apr 29, 2022 11:36
--- NOTE | 2022-04-29 11:58 | Progress Note - Surgery ---
Subjective Date Seen by a Provider: Apr 29, 2022 Time Seen by a Provider: 11:56 Subjective/Events-last exam Doing well. Planning on going home today. Breathing improved a little from yesterday. Denies n/v fever sweats chills or chest pain. Objective Exam Vital Signs Date Time Temp Pulse Resp B/P (MAP) Pulse Ox O2 Delivery O2 Flow Rate FiO2 04/29/22 08:07 36.5 63 20 136/65 (88) 96 Nasal Cannula 3.00 04/29/22 08:00 Nasal Cannula 3.00 04/29/22 07:20 Nasal Cannula 2.00 04/29/22 07:15 96 Nasal Cannula 2.00 04/29/22 03:48 36.3 68 20 178/81 (113) 99 NIV CPAP 04/29/22 00:54 36.2 20 97 32 04/28/22 23:36 36.2 73 20 150/78 (102) 97 Nasal Cannula 2.00 04/28/22 22:13 92 Nasal Cannula 2.00 04/28/22 21:50 Nasal Cannula 3.00 04/28/22 20:00 36.4 88 20 164/77 (106) 96 Nasal Cannula 2.00 04/28/22 18:29 93 Nasal Cannula 2.00 04/28/22 15:46 36.2 78 18 144/66 (92) 96 Nasal Cannula 2.00 04/28/22 14:50 92 Nasal Cannula 2.00 I & O 04/29/22 07:00 Intake Total 1435 ml Output Total 1900 ml Balance -465 ml Capillary Refill : General Appearance: No Apparent Distress, Chronically ill, Obese, Other (coughs frequently) HEENT: PERRL/EOMI, Normal ENT Inspection, Pharynx Normal Neck: Full Range of Motion, Normal Inspection, Non Tender Respiratory: Chest Non Tender, No Respiratory Distress, Accessory Muscle Use, Wheezing Cardiovascular: Regular Rate, Rhythm, No JVD, Normal Peripheral Pulses Gastrointestinal: normal bowel sounds, soft Extremity: Normal Capillary Refill, Normal Inspection, Non Tender, No Calf Tenderness, No Pedal Edema, Swelling Neurologic/Psychiatric: Alert, Oriented x3, No Motor/Sensory Deficits, Normal Mood/Affect Skin: Normal Color, Warm/Dry Lymphatic: No Adenopathy Results Lab Laboratory Tests 04/28/22 15:49: Glucometer 255H 04/28/22 20:18: Glucometer 239H 04/29/22 05:14: White Blood Count 10.5, Red Blood Count 4.00, Hemoglobin 11.9, Hematocrit 38, Mean Corpuscular Volume 95, Mean Corpuscular Hemoglobin 30, Mean Corpuscular Hemoglobin Concent 31L, Red Cell Distribution Width 14.8H, Platelet Count 233, Mean Platelet Volume 10.0, Immature Granulocyte % (Auto) 4, Neutrophils (%) (Auto) 84H, Lymphocytes (%) (Auto) 8L, Monocytes (%) (Auto) 4, Eosinophils (%) (Auto) 0, Basophils (%) (Auto) 0, Neutrophils # (Auto) 8.8H, Lymphocytes # (Auto) 0.8L, Monocytes # (Auto) 0.4, Eosinophils # (Auto) 0.0, Basophils # (Auto) 0.0, Immature Granulocyte # (Auto) 0.4H, Sodium Level 136, Potassium Level 4.7, Chloride Level 100, Carbon Dioxide Level 26, Anion Gap 10, Blood Urea Nitrogen 28H, Creatinine 1.03, Estimat Glomerular Filtration Rate 61, BUN/Creatinine Ratio 27, Glucose Level 308H, Calcium Level 8.9, Corrected Calcium 9.4, Total Bilirubin 0.4, Aspartate Amino Transf (AST/SGOT) 11, Alanine Aminotransferase (ALT/SGPT) 22, Alkaline Phosphatase 78, Total Protein 5.9L, Albumin 3.4 04/29/22 07:15: Glucometer 283H Microbiology 04/24/22 MRSA Screen - Final, Complete MRSA not isolated Assessment/Plan Assessment/Plan Assessment/Plan Poor venous access Covid syndrome Long-term anticoagulation. Obesity NPO Port placement today. Anticoagulation held DIPAK CAMARENA DO Apr 29, 2022 11:58
[2022-04-29] MEDS ORDERED: ceFAZolin INJECTION 2,000 MG ONE (12:25)
[2022-04-29] MEDS ORDERED: proPOfol 200 MG/20 ML (DIPRIVAN) VIAL IV ONE (12:28)
[2022-04-29] MEDS ORDERED: ceFAZolin INJECTION 1,000 MG VIAL IV ONE (12:30)
--- NOTE | 2022-04-29 12:46 | Diagnostic Imaging Report ---
Indication: Fluoroscopy port placed. Fluoroscopy was provided in the OR during right chest wall port placement. 27 seconds of fluoroscopic time was utilized. A single image was obtained demonstrating a right chest wall port with tip at SVC right atrial junction. IMPRESSION: Fluoroscopy during port placement. Dictated by: Dictated on workstation # [id number]
--- NOTE | 2022-04-29 12:51 | Progress Note-Post Operative ---
Post-Operative Progess Note Surgeon (s)/Physical Education Aide (s) Surgeon DIPAK CAMARENA DO Physical Education Aide: na Pre-Operative Diagnosis poor venous access Post-Operative Diagnosis same Procedure & Operative Findings Date of Procedure 04/29/22 Procedure Performed/Findings PROCEDURE: Right internal jugular port placement using ultrasound guidance. COMPLICATIONS: None. INDICATIONS: The patient is a 62 year old female with poor venous access and multiple admissions. Patient understands the risks and benefits of port placement and wished to proceed with the procedure. Consent was signed on the chart. PROCEDURE: The patient was taken to the operating suite, was prepped and draped in the sterile fashion. A surgical pause was performed. Ultrasound was used to locate the internal jugular vein. Once located anesthetic was infiltrated above it. Using micro-access kit, the right internal vein was accessed. Dark nonpulsatile blood was withdrawn. The wire was inserted. Fluoroscopy assured proper placement. The needle was removed. The micro-access dilator was advanced over the wire and the wire was removed. The regular wire was inserted and fluoroscopy assured proper placement. The wire was then secured. Local anesthetic was used to anesthetize from the neck for tunneling down to the right chest and for pocket creation. A 15 blade scalpel was used to make an incision over the right chest. Cautery was used to dissect down to the pectoral fascia. A pocket was created with blunt dissection. The dilator sheath was then advanced over the wire under fluoroscopy and the dilator and wire were removed. The Groshong catheter was inserted through the sheath and the sheath was then removed. The Groshong wire was removed. The catheter was then tunneled to the right chest pocket. Fluoroscopy was used to cut to length and this was then attached to the port which was then placed within the pocket. The port was then accessed without difficulty. It was then flushed with saline and then heparin. The subcutaneous tissues were then reapproximated using 3-0 Vicryl. The areas were then washed and dried. Skin Affix was placed over incision. The insertion point of the neck Skin Affix was placed over the incision. The patient tolerated the procedure well without complication and was taken to recovery room in stable condition. Chest x-ray is pending. Anesthesia Type mac c local Estimated Blood Loss Estimated blood loss (mL): minimal Specimens/Packing Specimens Removed DIPAK Ramsay DO Apr 29, 2022 12:51
--- NOTE | 2022-04-29 12:53 | Discharge Inst-Simple/Standard ---
Discharge Inst-Standard Patient Instructions/Follow Up Plan of Care/Instructions/FU: Yesy 2 weeks. Need port flushed every 90 days. Activity as Tolerated: No Discharge Diet: Regular Diet Other Inst to Patient Follow up Appt: Make appointment for 2 week. Instructions: No lifting greater than 10 pounds. No strenuous activity. May shower in 24 hours, no tub bath or soaking. Use incentive spirometer at home as directed. No Smoking Skin/Wound Care: You have special glue over your incision that will fall off on it's own. Ice pack on 15 min and off 30 min repeat for first 48 hours to reduce swelling and discomfort. Need port flushed every 90 days. Symptoms to Report: Appetite Changes, Extremity Discoloration, Numbness/Tingling, Swelling Increased, Bleeding Excessive, Eyesight Changes, Pain Increased, Urine Color Change, Constipation(Persistent), Fever over 101 degree F, Pain/Pressure in chest, Urinating Difficulty, Cough Up/Vomit Blood, Heart Beat Irreg/Pounding, Pain/Pressure in jaw, Vaginal Bleeding Increase, Cramps in feet or legs, Lightheadedness, Pain/Pressure in shoulder, Diarrhea(Persistent), Memory Changes Suddenly, Questions/Concerns, Weight gain consecutive days, Dizziness/Fainting, Nausea/Vomiting, Shortness of Breath, Weight gain over 2 pounds If questions or concerns contact your physician Or seek help at emergency department. DIPAK CAMARENA DO Apr 29, 2022 12:53
--- NOTE | 2022-04-29 13:11 | Diagnostic Imaging Report ---
EXAMINATION: Chest, one view. HISTORY: Port placement. COMPARISON: 04/23/2022. FINDINGS: The lungs are clear without edema or pneumonia. No pleural effusion or pneumothorax. Heart size is mildly enlarged. Right port catheter tip terminates in the superior vena cava. There is a portion of the port coiled in the neck, possibly within the subcutaneous tissues. IMPRESSION: 1. Right port catheter tip is in the superior vena cava with the portion coiled in the neck, possibly within the subcutaneous tissues. Dictated by: Dictated on workstation # [id number]
[2022-04-29] MEDS: eZETimibe 10 MG (ZETIA) TABLET PO SCH (13:53)
[2022-04-29] MEDS: MONTELUKAST 10 MG (SINGULAIR) TAB PO SCH (13:53)
[2022-04-29] MEDS: TRIAMTERENE/HCTZ 75-50 (MAXZIDE,DYAZIDE) TABLET PO SCH (13:53)
[2022-04-29] MEDS: LORATADINE (CLARITIN) 10 MG TAB PO SCH (13:53)
[2022-04-29] MEDS: AZATHIOPRINE PO SCH (13:53)
[2022-04-29] MEDS: PANTOPRAZOLE 40 MG (PROTONIX) TAB PO SCH (13:53)
[2022-04-29] MEDS: LOSARTAN 50 MG (COZAAR) TAB PO SCH (13:53)
[2022-04-29] MEDS: VENlafaxine XR 75 MG (EFFEXOR XR) CAP PO SCH (13:53)
--- NOTE | 2022-04-29 13:58 | Anesthesia-General Post-Op ---
MAC Patient Condition Mental Status/LOC: Same as Preop Cardiovascular: Satisfactory Nausea/Vomiting: Absent Respiratory: Satisfactory Pain: Controlled Complications: Absent Post Op Complications Complications None Follow Up Care/Instructions Patient Instructions None needed. Anesthesiology Discharge Order Discharge Order Patient is doing well, no complaints, stable vital signs, no apparent adverse anesthesia problems. No complications reported per nursing. ARIELA HALL DO Apr 29, 2022 13:58
== END 2022-04-29 17:30 | disposition home or self-care (01) | DRG 189 ==
LOC: 4TH 16:12 → ICU 04-24 14:26 → 4TH 04-25 12:25
PROVIDERS: ADMIT Internal Medicine; ATTEND Internal Medicine
PROC: 5A09357 Assistance with Respiratory Ventilation, Less than 24 Consecutive Hours, Continuous Positive Airway Pressure (ICD-10-PCS; 2022-04-23)
PROC: 02HV33Z Insertion of Infusion Device into Superior Vena Cava, Percutaneous Approach (ICD-10-PCS; principal; 2022-04-29 11:53)
DX: J96.21 Acute and chronic respiratory failure with hypoxia (principal); Z68.44 Body mass index [BMI] 60.0-69.9, adult; J44.0 Chronic obstructive pulmonary disease with (acute) lower respiratory infection; J44.1 Chronic obstructive pulmonary disease with (acute) exacerbation; J20.9 Acute bronchitis, unspecified; G70.00 Myasthenia gravis without (acute) exacerbation; U09.9 Post COVID-19 condition, unspecified; Z99.81 Dependence on supplemental oxygen; E66.01 Morbid (severe) obesity due to excess calories; M06.9 Rheumatoid arthritis, unspecified; E03.9 Hypothyroidism, unspecified; E11.9 Type 2 diabetes mellitus without complications; I10 Essential (primary) hypertension; F41.9 Anxiety disorder, unspecified; F32.A Depression, unspecified; Z79.01 Long term (current) use of anticoagulants; G47.33 Obstructive sleep apnea (adult) (pediatric); Z86.711 Personal history of pulmonary embolism; E11.40 Type 2 diabetes mellitus with diabetic neuropathy, unspecified; K21.9 Gastro-esophageal reflux disease without esophagitis; G89.29 Other chronic pain; M54.9 Dorsalgia, unspecified; H53.2 Diplopia; M19.90 Unspecified osteoarthritis, unspecified site; I87.2 Venous insufficiency (chronic) (peripheral)
CPT/HCPCS: 36410; 36415; 71045; 76000; 76937; 80053; 82805; 82947; 83605; 84145; 85007; 85025; 85027; 87081; 94640; 94760

== ENCOUNTER → 2022-06-17 | Outpatient (CLI) | payer BC ==
[~2022-06-17] VITALS: Ht 167.7 cm; Wt 183.2 kg
[~2022-06-17] MED LIST changes: +ACET600C5 PO; +AZIT250T12 PO; +BENZ200C51 PO; +BUDE10.7 IH; +CATHETER FLUSH 10 ML SYR IVP ONE; +DOCU100T7 PO; +EZET10TA17 PO; +GLBR2.5T PO; +HYPERSAL 3.5% IH; +IPRA3AMP31 PO; +LACT1CAP57 PO; +RT-ALBUINH IH; -TRIA1CAP4 PO; +TRIA1CAP84 PO
[2022-06-17 11:50] VITALS: BP 0/0
== END ==
LOC: SDC 11:03
PROVIDERS: ATTEND Internal Medicine
DX: Z45.2 Encounter for adjustment and management of vascular access device (principal)
CPT/HCPCS: 96523

== ENCOUNTER → 2022-07-20 | Outpatient (CLI) | payer BC ==
[~2022-07-20] MED LIST changes: -CATHETER FLUSH 10 ML SYR IVP ONE; +LEVO-55 PO; -LEVO500T81 PO; -NYST15CR TP; +NYST15CR35 TP
[2022-07-20 07:10] VITALS: BP 121/72
== END ==
LOC: SDC 06:33
PROVIDERS: ATTEND Internal Medicine
DX: Z45.2 Encounter for adjustment and management of vascular access device (principal)
CPT/HCPCS: 96523

== ENCOUNTER → 2022-08-19 | Outpatient (CLI) | payer BC ==
[2022-08-19 06:52] VITALS: BP 157/65
== END ==
LOC: SDC 06:30
PROVIDERS: ATTEND Internal Medicine
DX: Z45.2 Encounter for adjustment and management of vascular access device (principal)
CPT/HCPCS: 96523

== ENCOUNTER → 2022-09-20 | Outpatient (CLI) | payer BC ==
[~2022-09-20] VITALS: Ht 167.7 cm; Wt 183.2 kg
[~2022-09-20] MED LIST changes: +ALBU8.5H6 IH; +ALBU8.5H6 INH; -RT-ALBUINH IH; -RT-ALBUINH INH
[2022-09-20 07:20] VITALS: BP 150/76
== END ==
LOC: SDC 06:43
PROVIDERS: ATTEND Internal Medicine
DX: Z45.2 Encounter for adjustment and management of vascular access device (principal)
CPT/HCPCS: 96523

== ENCOUNTER → 2022-10-21 | Outpatient (CLI) | payer BC ==
[~2022-10-21] VITALS: Ht 167 cm; Wt 180.0 kg
[2022-10-21 07:20] VITALS: BP 160/65
== END ==
LOC: SDC 06:52
PROVIDERS: ATTEND Internal Medicine
DX: Z45.2 Encounter for adjustment and management of vascular access device (principal)
CPT/HCPCS: 96523

== ENCOUNTER → 2022-11-25 | Outpatient (CLI) | payer BC ==
[2022-11-25 06:50] VITALS: BP 148/69
== END ==
LOC: SDC 06:39
PROVIDERS: ATTEND Internal Medicine
DX: Z01.818 Encounter for other preprocedural examination (principal)
CPT/HCPCS: 96523

== ENCOUNTER → 2022-12-20 | Outpatient (CLI) | payer BC ==
--- NOTE | 2022-12-20 17:00 | Diagnostic Imaging Report ---
INDICATION: Fever. COMPARISON: 04/29/2022. FINDINGS: There is cardiomegaly. There is no pleural effusion or pneumothorax. The mediastinum is unremarkable. An Ylcwbt-c-Uuns catheter is directed in a cephalad direction up the right internal jugular vein. The mediastinum is unremarkable. IMPRESSION: The Vwphwc-b-Pflk catheter is now directed in a cephalad direction up the right internal jugular vein. Cardiomegaly. Dictated by: Dictated on workstation # [id number]
== END ==
LOC: RAD 15:56
PROVIDERS: ATTEND Internal Medicine
DX: I51.7 Cardiomegaly (principal); R50.9 Fever, unspecified
CPT/HCPCS: 71045

== ENCOUNTER 2022-12-31 08:00 | Day surgery (SDC) | payer BC ==
[2022-12-31] VITALS (9 sets, daily range): BP systolic 164–177; BP diastolic 64–94
[~2022-12-31] VITALS: Ht 167.6 cm; Wt 181.4 kg
[2022-12-31 07:17] LABS: HEMATOCRIT 37 % (35-52); HEMOGLOBIN 11.9 g/dL (11.5-16.0); MEAN CORPUSCULAR HEMOGLOBIN 30 pg (25-34); MEAN CORPUSCULAR HGB CONC 32 g/dL (32-36); MEAN CORPUSCULAR VOLUME 93 fL (80-99); MEAN PLATELET VOLUME 9.7 fL (9.0-12.2); PLATELET COUNT 286 10^3/uL (130-400); WHITE BLOOD COUNT 4.8 10^3/uL (4.3-11.0)
[2022-12-31 07:35] LABS: ALBUMIN 3.7 GM/DL (3.2-4.5); BILIRUBIN,TOTAL 0.4 MG/DL (0.1-1.0); CALCIUM 9.3 MG/DL (8.5-10.1); CREATININE SERUM 0.93 MG/DL (0.60-1.30); POTASSIUM 3.8 MMOL/L (3.6-5.0); TOTAL PROTEIN 6.7 GM/DL (6.4-8.2)
--- NOTE | 2022-12-31 07:35 | Diagnostic Imaging Report ---
INDICATION: Pre-port retrieval evaluation. COMPARISON: 12/20/2022 FINDINGS: Single frontal radiograph view the chest was obtained and again demonstrates moderate cardiomegaly. Pulmonary vasculature is within normal limits. Lungs remain clear. There is no focal consolidation, large effusion, nor pneumothorax. Right internal jugular Port-A-Cath is again identified with the tubing extending superiorly beyond the [id number]-gp-ttox, presumably within the internal jugular vein. Osseous structures show no new acute abnormalities. IMPRESSION: 1. Redemonstration malpositioned right-sided Port-A-Cath. 2. Persistent cardiomegaly, but no evidence of failure or focal infiltrate. Dictated by: Dictated on workstation # [id number]
[~2022-12-31 08:00] MED LIST changes: +BUDE0.5A IH; +HEParin (CATH LAB) 1,000 ML IV ONE; +HEParin (CATH LAB) 2,000 ML IV ONE; +IPRA3AMP31 NEB; -IPRA3AMP31 PO; +LIDOCAINE 1% INJ 20 ML VIAL ONE; +NS IV 1000 ML 1,000 ML IV SCH; +ONDA-105 PO
[2022-12-31] MEDS ORDERED: MIDAZOLAM 5 MG/5 ML (VERSED) VIAL ONE (08:04)
[2022-12-31] MEDS ORDERED: fentaNYL INJ 100 MCG/2 ML AMP ONE (08:04)
--- NOTE | 2022-12-31 08:44 | Cardiac Procedure Note-CS/ASA ---
Pre-Procedure Note Pre-Op Procedure Note Date of Available H&P: Dec 27, 2022 Date H&P Reviewed: Dec 31, 2022 Time H&P Reviewed: 08:44 History & Physical: H&P Reviewed, Patient Examed, No changes noted Pre-Operative Diagnosis: Migrated port Conscious Sedation Pre-Proced Time 08:44 ASA Score 3 For ASA 3 and 4: Consider anesthesia and medical clearance. Also, for patients with a history of failed moderate sedation consider anesthesia. Airway Lungs Heart ASA score ASA 1: a normal healthy patient ASA 2: a patient with a mild systemic disease (mid diabetes, controlled hypertension, obesity ASA 3: a patient with a severe systemic disease that limits activity (angina, COPD, prior Myocardial infarction) ASA 4: a patient with an incapacitating disease that is a constant threat to life (CHF, renal failure) ASA 5: a moribund patient not expected to survive 24 hrs. (ruptured aneurysm) ASA 6: a declared brain- patient whose organs are being harvested. For emergent operations, add the letter E after the classification Mallampati Classification Grade 3 Sedation Plan Analgesia, Amnesia, Plan communicated to team members, Discussed options with patient/fam, Discussed risks with patient/fam The patient is an appropriate candidate to undergo the planned procedure, sedation, and anesthesia. The patient immediately re-assessed prior to indication. BELLE HEAD MD Dec 31, 2022 08:44
[2022-12-31] MEDS ORDERED: NS IV 1000 ML 1,000 ML IV SCH (10:15)
[2022-12-31] MEDS ORDERED: PATIENT MAY USE OWN MEDS, ALL PO SCH (10:15)
--- NOTE | 2022-12-31 10:17 | Cardiac Procedure Note-KU ---
Cardiology Procedures Date of Procedure 12/31/22 Repositioning of a port: Brief history Patient has port placed in the right side, it was moved and migrated up in the neck. Patient was referred for repositioning of the port. Procedure note After explaining the procedure to the patient all pros and cons were explained, patient signed a consent and placed on the cardiac catheterization laboratory. Right groin was prepped in a sterile fashion, 7 Nepali sheath was placed in the right femoral artery. I attempted to move the tip of the catheter downward with Doyle right catheter and I was unable to then I advanced a BMW wire after creating the loop and was able to capture the tip of the catheter and pulled it down but continued to have a loop in the upper portion of it. Then I used a different device with loop snare and I was able to snare it down all the way, after releasing it the catheter sprang back and went up again. It is still pointing downward but has a loop in it. Catheter was removed and sheath was removed, hemostasis achieved. Conclusion Successful repositioning of a port with no complication Patient continues to have a loop in that port although it is pointing downward. Final diagnoses Migrated port to the neck. BELLE HEAD MD Dec 31, 2022 10:17
== END 2022-12-31 12:30 ==
LOC: CATH 10:13 → SDC 10:13 → CATH 12:30
PROVIDERS: ATTEND Internal Medicine Cardiovascular Disease
DX: T82.528A Displacement of other cardiac and vascular devices and implants, initial encounter (principal); J44.9 Chronic obstructive pulmonary disease, unspecified; I10 Essential (primary) hypertension; E66.9 Obesity, unspecified; M06.9 Rheumatoid arthritis, unspecified; G70.00 Myasthenia gravis without (acute) exacerbation; E78.2 Mixed hyperlipidemia; I25.10 Atherosclerotic heart disease of native coronary artery without angina pectoris; I65.23 Occlusion and stenosis of bilateral carotid arteries; Z86.16 Personal history of COVID-19; Z86.718 Personal history of other venous thrombosis and embolism; Z79.01 Long term (current) use of anticoagulants; Z68.44 Body mass index [BMI] 60.0-69.9, adult; Z79.899 Other long term (current) drug therapy; Y82.8 Other medical devices associated with adverse incidents
CPT/HCPCS: 36597; 71045; 80053; 85027; 87081; C1769 ×2; C1773; C1887; C1894; 36415

== ENCOUNTER 2023-01-25 12:10 | Outpatient (CLI) | payer BC ==
[~2023-01-25] VITALS: Ht 167.7 cm; Wt 188.6 kg
[~2023-01-25 12:10] MED LIST changes: -HEParin (CATH LAB) 1,000 ML IV ONE; -HEParin (CATH LAB) 2,000 ML IV ONE; -LIDOCAINE 1% INJ 20 ML VIAL ONE; -NS IV 1000 ML 1,000 ML IV SCH
[2023-01-25] MEDS ORDERED: BENZ200C51 PO (15:49)
[2023-01-25] MEDS ORDERED: GLBR2.5T PO (15:49)
== END 2023-02-01 08:56 | disposition home or self-care (01) ==
LOC: PREOP 12:10
PROVIDERS: ATTEND Surgery
DX: Z01.818 Encounter for other preprocedural examination (principal); T85.618A Breakdown (mechanical) of other specified internal prosthetic devices, implants and grafts, initial encounter

== ENCOUNTER 2023-02-02 08:47 | Day surgery (SDC) | payer BC ==
[2023-02-02] VITALS (8 sets, daily range): BP systolic 128–162; BP diastolic 52–96
[~2023-02-02] VITALS: Ht 167.7 cm; Wt 188.6 kg
[2023-02-02] MEDS ORDERED: 0.9% SODIUM CHLORIDE PF INJ 20 ML VIAL ONE (09:20)
[2023-02-02] MEDS ORDERED: HEParin (CENTRAL IV FLUSH) 500 UNIT/5 ML SYR ONE (09:20)
[2023-02-02] MEDS ORDERED: LIDOCAINE/EPI 1%-1:100,000 (XYLOCAINE) 20ML ONE ×2 (09:20→10:58)
[2023-02-02] MEDS ORDERED: ceFAZolin INJECTION 2,000 MG in NS (IVPB) 50 ML IV ONE (09:30)
[2023-02-02] MEDS ORDERED: LACTATED RINGERS 1,000 ML IV PRN (09:30)
--- NOTE | 2023-02-02 09:57 | Progress Note-Pre Operative ---
Pre-Operative Progress Note Date H&P Reviewed: Feb 02, 2023 Time H&P Reviewed: 09:57 History & Physical: H&P Reviewed, Patient Examed, No changes noted Pre-Operative Diagnosis: malfunction port DIPAK CAMARENA DO Feb 02, 2023 09:57
[2023-02-02] MEDS ORDERED: ONDANSETRON 4 MG/2 ML (SDV) Z0FRAN IVP PRN (10:30)
[2023-02-02] MEDS ORDERED: MIDAZOLAM 2 MG/2 ML (VERSED) VIAL ONE ×2 (10:36→10:58)
[2023-02-02] MEDS ORDERED: KETAMINE 50 MG/5 ML SYRINGE ONE (10:36)
[2023-02-02] MEDS ORDERED: PROPOFOL INJECTION 50 ML IV ONE (10:36)
--- NOTE | 2023-02-02 11:48 | Discharge Inst-Simple/Standard ---
Discharge Inst-Standard Patient Instructions/Follow Up Plan of Care/Instructions/FU: 2 weeks giovanna Activity as Tolerated: No Discharge Diet: Regular Diet Other Inst to Patient Follow up Appt: Make appointment for 2 week. Instructions: No lifting greater than 10 pounds. No strenuous activity. May shower in 24 hours, no tub bath or soaking. Use incentive spirometer at home as directed. No Smoking Skin/Wound Care: You have special glue over your incision that will fall off on it's own. Need port flushed every 90 days. Symptoms to Report: Appetite Changes, Extremity Discoloration, Numbness/Tingling, Swelling Increased, Bleeding Excessive, Eyesight Changes, Pain Increased, Urine Color Change, Constipation(Persistent), Fever over 101 degree F, Pain/Pressure in chest, Urinating Difficulty, Cough Up/Vomit Blood, Heart Beat Irreg/Pounding, Pain/Pressure in jaw, Vaginal Bleeding Increase, Cramps in feet or legs, Lightheadedness, Pain/Pressure in shoulder, Diarrhea(Persistent), Memory Changes Suddenly, Questions/Concerns, Weight gain consecutive days, Dizziness/Fainting, Nausea/Vomiting, Shortness of Breath, Weight gain over 2 pounds If questions or concerns contact your physician Or seek help at emergency department. DIPAK CAMARENA DO Feb 02, 2023 11:48
--- NOTE | 2023-02-02 11:51 | Progress Note-Post Operative ---
Post-Operative Progess Note Surgeon (s)/Direct Sales Representative (s) Surgeon DIPAK CAMARENA DO Direct Sales Representative: na Pre-Operative Diagnosis malfunction port Post-Operative Diagnosis same Procedure & Operative Findings Date of Procedure 02/02/23 Procedure Performed/Findings PROCEDURE: left internal jugular port placement using ultrasound guidance, right chest port removal. COMPLICATIONS: None. INDICATIONS: The patient is a 62 year old female with poor venous access. Patient understands the risks and benefits of port placement and wished to proceed with the procedure. Consent was signed on the chart. PROCEDURE: The patient was taken to the operating suite, was prepped and draped in the sterile fashion. A surgical pause was performed. Ultrasound was used to locate the internal jugular vein. Once located anesthetic was infiltrated above it. Using micro-access kit, the right internal vein was accessed. Dark nonpulsatile blood was withdrawn. The wire was inserted. Fluoroscopy assured proper placement. The needle was removed. The micro-access dilator was advanced over the wire and the wire was removed. The regular wire was inserted and fluoroscopy assured proper placement. The wire was then secured. Local anesthetic was used to anesthetize from the neck for tunneling down to the right chest and for pocket creation. A 15 blade scalpel was used to make an incision over the left chest. Cautery was used to dissect down to the pectoral fascia. A pocket was created with blunt dissection. The dilator sheath was then advanced over the wire under fluoroscopy and the dilator and wire were removed. The Groshong catheter was inserted through the sheath and the sheath was then removed. The Groshong wire was removed. The catheter was then tunneled to the right chest pocket. Fluoroscopy was used to cut to length and this was then attached to the port which was then placed within the pocket. The port was then accessed without difficulty. It was then flushed with saline and then heparin. The subcutaneous tissues were then reapproximated using 3-0 Vicryl. The areas were then washed and dried. Skin Affix was placed over incision. The insertion point of the neck Skin Affix was placed over the incision. Local anesthetic was infiltrated to the area around the port. A number 15 blade scalpel was used to make an incision. Cautery was used to dissect down to the port which was then grasped and then dissected around. The catheter was removed in its entirety. The port was then able to be dissected out of the pocket and elevated. The wound was then irrigated with copious amounts of irrigation. Hemostasis had been achieved. The subcutaneous tissues were then reapproximated using 3-0 Vicryl. Skin was then closed using Skin Affix placed over the incision. The patient tolerated the procedure well without complication and was taken to recovery room in stable condition. Chest x-ray is pending. Anesthesia Type mac c local Estimated Blood Loss Estimated blood loss (mL): minimal Specimens/Packing Specimens Removed na DIPAK CAMARENA DO Feb 02, 2023 11:51
--- NOTE | 2023-02-02 12:24 | Diagnostic Imaging Report ---
INDICATION: Postop removal of right Port-A-Cath and placement of a new left Port-A-Cath. FINDINGS: The single portable chest shows cardiomegaly and central vascular congestion with removal of the previous right-sided Port-A-Cath and placement of a new left-sided port with the catheter in the left internal jugular vein and catheter tip overlying the SVC. There is no pneumothorax or pleural fluid following device placement. There is no focal infiltrate. IMPRESSION: Unchanged cardiomegaly and central vascular congestion. No pneumothorax or pleural fluid status post placement of a new left-sided Port-A-Cath. Dictated by: Dictated on workstation # [id number]
--- NOTE | 2023-02-02 12:52 | Anesthesia-General Post-Op ---
MAC Patient Condition Mental Status/LOC: Same as Preop Cardiovascular: Satisfactory Nausea/Vomiting: Absent Respiratory: Satisfactory Pain: Controlled Complications: Absent Post Op Complications Complications None Follow Up Care/Instructions Patient Instructions None needed. Anesthesiology Discharge Order Discharge Order Patient is doing well, no complaints, stable vital signs, no apparent adverse anesthesia problems. No complications reported per nursing. ARIELA HALL DO Feb 02, 2023 12:52
--- NOTE | 2023-02-02 16:40 | Diagnostic Imaging Report ---
INDICATION: Port-A-Cath placement. TECHNIQUE: Intraoperative fluoroscopic views obtained during Port-A-Cath placement in surgery. Three views are obtained, 175.3 seconds of fluoroscopy time was used. FINDINGS: Intraoperative views demonstrate Port-A-Cath over the left chest with catheter entering the left internal jugular vein and catheter tip overlying the SVC. The study is otherwise limited. IMPRESSION: Intraoperative fluoroscopic views obtained during left-sided Port-A-Cath placement as above. Dictated by: Dictated on workstation # [id number]
== END 2023-02-02 13:15 ==
LOC: SDC 08:47
PROVIDERS: ATTEND Surgery
DX: T82.514A Breakdown (mechanical) of infusion catheter, initial encounter (principal); G47.33 Obstructive sleep apnea (adult) (pediatric); K21.9 Gastro-esophageal reflux disease without esophagitis; E66.01 Morbid (severe) obesity due to excess calories; Z68.44 Body mass index [BMI] 60.0-69.9, adult; Z79.899 Other long term (current) drug therapy; Z99.81 Dependence on supplemental oxygen
CPT/HCPCS: 36561; 36589; 71045; 76000; 82947; 87081; C1788

== ENCOUNTER 2023-02-10 11:36 | Observation (INO) | payer BC ==
[~2023-02-10] VITALS: Ht 167 cm; Wt 176.6 kg
[2023-02-10] MEDS ORDERED: methylPREDNISolone 125 MG (Solu-MEDROL) VIAL IVP ONE (11:45)
[2023-02-10] MEDS ORDERED: RT-ALBUTEROL/IPRATROPIUM 3 ML (DUONEB) VIAL INH ONE (11:45)
--- NOTE | 2023-02-10 11:50 | ED Dyspnea ---
General Chief Complaint: Respiratory Problems Stated Complaint: SOB Source of Information: Patient Exam Limitations: No Limitations History of Present Illness Date Seen by Provider: Feb 10, 2023 Time Seen by Provider: 11:38 Initial Comments 62-year-old female brought in by EMS for shortness of breath. She has COPD which she relates is related to COVID and not from smoking as she has never smoked. She states for the last couple days she has had progressively worsening shortness of breath. She does use oxygen, 3 L via nasal cannula and a concentrator at home. She is using her nebulizer several times at home without much relief. No fevers or chills. No changes in her chronic cough. She has not increased her oxygen at home. No sick contacts. No chest pain. No history of CHF. No unilateral lower extremity pain, swelling recent surgeries or long distance travel. All other systems reviewed and negative except documented per HPI. Voice recognition software was used to help create this chart Allergies and Home Medications Allergies Coded Allergies: adhesive tape (Verified Allergy, Intermediate, 01/25/23) BLISTERS AND RAW SKIN almond (Verified Allergy, Intermediate, Abdominal Pain, 01/25/23) Pt states having pain when she eat them. amlodipine (Verified Allergy, Unknown, 01/25/23) erythromycin base (Verified Allergy, Unknown, 01/25/23) Patient Home Medication List Home Medication List Reviewed: Yes Albuterol Sulfate (Ventolin Hfa) 90 Mcg Hfa.aer.ad, 2 PUFF IH Q4H PRN for SHORTNESS OF BREATH, (Reported) Entered as Reported by: MANGO DE LA TORRE on 04/26/22 0938 Alprazolam (Alprazolam) 0.5 Mg Tablet, 0.5 MG PO Q8H PRN for ANXIETY, (Reported) Entered as Reported by: NITO BREWER on 10/16/21 1125 Apixaban (Eliquis) 5 Mg Tablet, 5 MG PO BID, (Reported) Entered as Reported by: NIOT BREWER on 01/27/21 0947 Atorvastatin Calcium (Atorvastatin Calcium) 20 Mg Tablet, 20 MG PO DAILY, (Reported) Entered as Reported by: NE GARRETT on 03/31/18 0950 Azathioprine (Imuran) 50 Mg Tablet, 100 MG PO BID, (Reported) Entered as Reported by: NITO BREWER on 10/16/21 1125 Azithromycin (Azithromycin) 250 Mg Tablet, 250 MG PO DAILY, (Reported) Entered as Reported by: MANGO DE LA TORRE on 04/26/22 0927 Benzonatate (Benzonatate) 200 Mg Capsule, 200 MG PO DAILY, (Reported) Entered as Reported by: Christiana Davison on 01/25/23 1549 Budesonide (Budesonide) 0.5 Mg/2 Ml Ampul.neb, 0.5 MG IH BID PRN for SHORTNESS OF BREATH, (Reported) Entered as Reported by: NITO BREWER on 12/30/22 1357 Budesonide/Glycopyr/Formoterol (Breztri Aerosphere Inhaler) 160 Mcg-9 Mcg-4.8 Mcg/Actuation Hfa.aer.ad, 2 PUFF IH DAILY, (Reported) Entered as Reported by: MANGO DE LA TORRE on 04/26/22 0955 Calcium Carbonate (Calcium Carbonate) 600 Mg Calcium (1500 Mg) Tablet, 600 MG PO BID, (Reported) Entered as Reported by: NITO BREWER on 10/16/21 1135 Cetirizine HCl (All Day Allergy) 10 Mg Tablet, 10 MG PO BID, (Reported) Entered as Reported by: NITO BREWER on 10/06/20 1532 Citalopram Hydrobromide (Citalopram HBr) 20 Mg Tablet, 20 MG PO DAILY, (Reported) Entered as Reported by: NITO BREWER on 10/06/20 1530 Clonidine HCl (Clonidine HCl) 0.1 Mg Tablet, 0.1 MG PO BID, (Reported) Entered as Reported by: NITO BREWER on 12/30/22 1357 Fluticasone Propionate (Fluticasone Propionate) 50 Mcg/Actuation Dillard.susp, 1 SPRAY NSEACH BID, (Reported) Entered as Reported by: NITO BREWER on 10/16/21 1125 Furosemide (Furosemide) 40 Mg Tablet, 40 MG PO DAILY PRN for FLUID RETENTION, (Reported) Entered as Reported by: MARIIA ALEJANDRO on 12/25/20 1838 Glyburide (Glyburide) 2.5 Mg Tablet, 2.5 MG PO DAILY, (Reported) Entered as Reported by: Christiana Davison on 01/25/23 1549 Ipratropium/Albuterol Sulfate (Iprat-Albut 0.5-3(2.5) mg/3 ml) 0.5 Mg-3 Mg (2.5 Mg Base)/3 Ml Ampul.neb, 3 ML NEB Q4H PRN for SHORTNESS OF BREATH, (Reported) Entered as Reported by: MANGO DE LA TORRE on 04/26/22 0938 Levothyroxine Sodium (Levothyroxine Sodium) 50 Mcg Tablet, 50 MCG PO DAILY, (Reported) Entered as Reported by: VIVEK ROJAS on 07/31/15 1558 Losartan Potassium (Losartan Potassium) 50 Mg Tablet, 50 MG PO DAILY, (Reported) Entered as Reported by: NITO BREWER on 10/06/20 1530 Melatonin (Melatonin) 10 Mg Tablet, 20 MG PO HS, (Reported) Entered as Reported by: NITO BREWER on 04/29/21 1240 Montelukast Sodium (Montelukast Sodium) 10 Mg Tablet, 10 MG PO DAILY, (Reported) Entered as Reported by: NE GARRETT on 03/31/18 0950 Ondansetron HCl (Ondansetron HCl) 4 Mg Tablet, 4 MG PO Q6H PRN for NAUSEA/VOMITING-1ST LINE, (Reported) Entered as Reported by: NITO BREWER on 12/30/22 1357 Pantoprazole Sodium (Pantoprazole Sodium) 40 Mg Tablet.dr, 40 MG PO DAILY, (Reported) Entered as Reported by: NITO BREWER on 08/12/20 0919 Potassium Chloride (Potassium Chloride) 20 Meq Tablet.er, 20 MEQ PO BID, (Reported) Entered as Reported by: NITO BREWER on 01/27/21 0947 Triamterene/Hydrochlorothiazid (Triamterene-Hctz 37.5-25 mg Cp) 1 Each Capsule, 1 CAP PO DAILY, (Reported) Entered as Reported by: NE GARRETT on 03/31/18 0950 Venlafaxine HCl (Venlafaxine HCl ER) 75 Mg Cap.er.24h, 75 MG PO DAILY, (Reported) Entered as Reported by: NITO BREWER on 06/05/21 1345 Review of Systems Review of Systems Constitutional: see HPI Past Ppjdjwa-Vvxofk-Xoebiv Hx Patient Social History Tobacco Use?: No Use of E-Cig and/or Vaping dev: No Substance use?: No Alcohol Use?: No Immunizations Up To Date Tetanus Booster (TDap): More than 5yrs PED Vaccines UTD: Yes First/Initial COVID19 Vaccinat: 12/04 Second COVID19 Vaccination Yousuf: 01/04 Third COVID19 Vaccination Date: 07/04 Seasonal Allergies Seasonal Allergies: Yes Past Medical History Surgery/Hospitalization HX: heart cath- April 2021, [facility] GRAVIS, COPD, ASTHMA, LONG COVID SYNDROME Surgeries: Yes (port) Lumpectomy, Orthopedic Respiratory: Yes (RESTRICTIVE LUNG DISEASE) Asthma, Sleep Apnea, COPD Currently Using CPAP: Yes Currently Using BIPAP: No Cardiac: Yes Coronary Artery Disease, High Cholesterol, Hypertension Neurological: Yes (PERIPHERAL NERVE DISEASE) Neuropathy 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 Disorders: No [employer] History: Menopausal Sexually Transmitted Disease: No Genitourinary: No Bladder Infection Gastrointestinal: No Gastroesophageal Reflux Musculoskeletal: Yes (MYASTHENIA GRAVIS) Arthritis, Rheumatoid Arthritis Endocrine: Yes Hypothyroidsim, Diabetes, Non-Insulin dep HEENT: Yes Cataract, Tinnitis Loss of Vision: Denies Hearing Impairment: Denies Cancer: No Psychosocial: Yes Anxiety Integumentary: No Blood Disorders: No Adverse Reaction/Blood Tranf: No Family Medical History Reviewed Nursing Family Hx Alcoholism G8 BROTHER G8 SISTER Alzheimer's disease 19 MOTHER Arthritis 19 FATHER Asthma G8 SISTER Cardiovascular disease 19 FATHER Cataracts 19 FATHER Coronary thrombosis 19 FATHER Deafness or hearing loss SON Diabetes mellitus 19 FATHER G8 SISTER G8 SISTER Drug abuse G8 SISTER Hypertension 19 FATHER G8 SISTER G8 SISTER Kidney disease 19 FATHER Respiratory disorder G8 SISTER G8 SISTER Seizure disorder SON Severe allergy SON Heart Disease, Diabetes, Hypertension Physical Exam Vital Signs Vital Signs - First Documented 02/10/23 11:40 Temp 35.2 Pulse 84 Resp 24 B/P (MAP) 196/79 (118) Pulse Ox 97 O2 Delivery Nasal Cannula O2 Flow Rate 3.00 Capillary Refill : Height, Weight, BMI Height: 5'6.00" Weight: 297lbs. 0.0oz. [id number]; 67.06 BMI Method:Stated General Appearance: Mild Distress HEENT: Normal ENT Inspection, Pharynx Normal Neck: Full Range of Motion, Normal Inspection, Non Tender, Supple Respiratory: Chest Non Tender, Other (Slight inspiratory and expiratory wheezing with accessory muscle use. Slight respiratory distress.) Cardiovascular: Regular Rate, Rhythm, Normal Peripheral Pulses Gastrointestinal: Normal Bowel Sounds, No Organomegaly, No Pulsatile Mass, Non Tender, Soft Extremity: Normal Capillary Refill, Normal Inspection, Normal Range of Motion, Non Tender, No Calf Tenderness Neurologic/Psychiatric: Alert, Oriented x3, No Motor/Sensory Deficits Skin: Normal Color, Warm/Dry Progress/Results/Core Measures Results/Orders Lab Results Laboratory Tests Test 02/10/23 11:54 Range/Units Influenza Type A (RT-PCR) Not Detected Not Detecte Influenza Type B (RT-PCR) Not Detected Not Detecte SARS-CoV-2 RNA (RT-PCR) Not Detected Not Detecte My Orders Orders - YEVGENIY SAENZ DO Chest 1 View, Ap/Pa Only (02/10/23 11:43) Cbc With Automated Diff (02/10/23 11:43) Comprehensive Metabolic Panel (02/10/23 11:43) Covid 19 Inhouse Test (02/10/23 11:43) Influenza A And B By Pcr (02/10/23 11:43) Albuterol/Ipra Inhalation Soln (Duoneb I (02/10/23 11:45) Svn Small Volume Nebulizer (02/10/23 11:43) Methylprednisolone Sod Succ (Solu-Medrol (02/10/23 11:45) Troponin I [place] (02/10/23 11:44) Ekg Tracing (02/10/23 11:44) Medications Given in ED Current Medications Medications Dose Ordered Sig/Mayela Route Start Time Stop Time Status Last Admin Dose Admin Albuterol/ Ipratropium 3 ml ONCE ONCE INH 02/10/23 11:45 02/10/23 11:46 DC 02/10/23 12:30 3 ML Methylprednisolone Sodium Succinate 125 mg ONCE ONCE IVP 02/10/23 11:45 02/10/23 11:46 DC 02/10/23 12:27 125 MG Vital Signs/I&O 02/10/23 02/10/23 02/10/23 11:40 11:49 12:31 Temp 35.2 Pulse 84 Resp 24 B/P (MAP) 196/79 (118) Pulse Ox 97 90 O2 Delivery Nasal Cannula Nasal Cannula Nasal Cannula O2 Flow Rate 3.00 3.00 3.00 Comment Sinus rhythm at 86 bpm. Normal intervals. Normal axis. No ST or T wave abnormalities. No ectopy. No STEMI. Departure Communication (Admissions) The patient is hemodynamically stable. Chest x-ray is clear she is afebrile and nontoxic. No evidence for pneumonia. Symptoms slightly improved with DuoNeb, Solu-Medrol however she still has increased work of breathing and wheezing. She states she feel more comfortable admitted to the hospital. I spoke with Dr. Cunningham who accepts the patient in admission. There is no evidence of pneumothorax, PE. I have independently reviewed the chest x-ray and EKG. Impression Primary Impression: COPD with exacerbation Disposition: ADMITTED INPATIENT Condition: Improved Admissions Decision to Admit Reason: Admit from ER (General) Departure-Patient Inst. Referrals: FABIENNE ZAMORA DO (PCP/Family) Primary Care Physician YEVGENIY SAENZ DO Feb 10, 2023 11:49
--- NOTE | 2023-02-10 12:19 | Diagnostic Imaging Report ---
INDICATION: Dyspnea Single AP view of the chest is obtained with comparison made to study of 02/02/2023. There is cardiomegaly. Pulmonary vascularity is unremarkable. There is no evidence of pneumothorax or consolidation. Left anterior chest wall port is in stable position. IMPRESSION: Stable cardiomegaly without acute abnormality or adverse change. Dictated by: Dictated on workstation # [id number]
--- NOTE | 2023-02-10 13:48 | History & Physical ---
LIBRA MCCARTNEY 02/10/23 1348: History of Present Illness History of Present Illness Reason for visit/HPI Patient is a 62 year old female with past medical history of COPD post COVID, CAD, Myasthenia Gravis, Hyperlipidemia, HTN, Hypothyroidism, RA, and DM who presented to the ED via EMS for SOB. She reports being on 3L O2 baseline at home and uses albuterol and breztri inhalers. She has been having increased SOB and cough for the last few days, but was markedly worse today at work. Upon arrival she was maintaining good Oxygen saturation on 3l O2 but had an improvement in symptoms following solu-medrol 125mg injection and Air-duo breathing treatment. When seen in the ED patient reports improvement in SOB and denies LH, CP, palpitations, abd pain, N/V/D, numbness/weakness of arms or legs Date of Admission 02/10/2023 Date Seen by a Provider: Feb 10, 2023 Time Seen by a Provider: 13:30 I consulted on this patient on 02/10/23 13:43 Attending Physician Shayla Zamora DO Admitting Physician Admitting Physician: Attending Physician: Consult Allergies and Home Medications Allergies Coded Allergies: adhesive tape (Verified Allergy, Intermediate, 01/25/23) BLISTERS AND RAW SKIN almond (Verified Allergy, Intermediate, Abdominal Pain, 01/25/23) Pt states having pain when she eat them. amlodipine (Verified Allergy, Unknown, 01/25/23) erythromycin base (Verified Allergy, Unknown, 01/25/23) Patient Home Medication List Albuterol Sulfate (Ventolin Hfa) 90 Mcg Hfa.aer.ad, 2 PUFF IH Q4H PRN for SHORTNESS OF BREATH, (Reported) Entered as Reported by: MANGO DE LA TORRE on 04/26/22 0938 Alprazolam (Alprazolam) 0.5 Mg Tablet, 0.5 MG PO Q8H PRN for ANXIETY, (Reported) Entered as Reported by: NITO BREWER on 10/16/21 1125 Apixaban (Eliquis) 5 Mg Tablet, 5 MG PO BID, (Reported) Entered as Reported by: NITO BREWER on 01/27/21 0947 Atorvastatin Calcium (Atorvastatin Calcium) 20 Mg Tablet, 20 MG PO DAILY, (Reported) Entered as Reported by: NE GARRETT on 03/31/18 0950 Azathioprine (Imuran) 50 Mg Tablet, 100 MG PO BID, (Reported) Entered as Reported by: NITO BREWER on 10/16/21 1125 Azithromycin (Azithromycin) 250 Mg Tablet, 250 MG PO DAILY, (Reported) Entered as Reported by: MANGO DE LA TORRE on 04/26/22 0927 Benzonatate (Benzonatate) 200 Mg Capsule, 200 MG PO DAILY, (Reported) Entered as Reported by: Christiana Davison on 01/25/23 1549 Budesonide (Budesonide) 0.5 Mg/2 Ml Ampul.neb, 0.5 MG IH BID PRN for SHORTNESS OF BREATH, (Reported) Entered as Reported by: NITO BREWER on 12/30/22 1357 Budesonide/Glycopyr/Formoterol (Breztri Aerosphere Inhaler) 160 Mcg-9 Mcg-4.8 Mcg/Actuation Hfa.aer.ad, 2 PUFF IH DAILY, (Reported) Entered as Reported by: MANGO DE LA TORRE on 04/26/22 0955 Calcium Carbonate (Calcium Carbonate) 600 Mg Calcium (1500 Mg) Tablet, 600 MG PO BID, (Reported) Entered as Reported by: NITO BREWER on 10/16/21 1135 Cetirizine HCl (All Day Allergy) 10 Mg Tablet, 10 MG PO BID, (Reported) Entered as Reported by: NITO BREWER on 10/06/20 1532 Citalopram Hydrobromide (Citalopram HBr) 20 Mg Tablet, 20 MG PO DAILY, (Reported) Entered as Reported by: NITO BREWER on 10/06/20 1530 Clonidine HCl (Clonidine HCl) 0.1 Mg Tablet, 0.1 MG PO BID, (Reported) Entered as Reported by: NITO BREWER on 12/30/22 1357 Fluticasone Propionate (Fluticasone Propionate) 50 Mcg/Actuation [place].susp, 1 SPRAY NSEACH BID, (Reported) Entered as Reported by: NITO BREWER on 10/16/21 1125 Furosemide (Furosemide) 40 Mg Tablet, 40 MG PO DAILY PRN for FLUID RETENTION, (Reported) Entered as Reported by: MARIIA ALEJANDRO on 12/25/20 1838 Glyburide (Glyburide) 2.5 Mg Tablet, 2.5 MG PO DAILY, (Reported) Entered as Reported by: Christiana Davison on 01/25/23 1549 Ipratropium/Albuterol Sulfate (Iprat-Albut 0.5-3(2.5) mg/3 ml) 0.5 Mg-3 Mg (2.5 Mg Base)/3 Ml Ampul.neb, 3 ML NEB Q4H PRN for SHORTNESS OF BREATH, (Reported) Entered as Reported by: MANGO DE LA TORRE on 04/26/22 0938 Levothyroxine Sodium (Levothyroxine Sodium) 50 Mcg Tablet, 50 MCG PO DAILY, (Reported) Entered as Reported by: VIVEK ROJAS on 07/31/15 1558 Losartan Potassium (Losartan Potassium) 50 Mg Tablet, 50 MG PO DAILY, (Reported) Entered as Reported by: NITO BREWER on 10/06/20 1530 Melatonin (Melatonin) 10 Mg Tablet, 20 MG PO HS, (Reported) Entered as Reported by: NITO BREWER on 04/29/21 1240 Montelukast Sodium (Montelukast Sodium) 10 Mg Tablet, 10 MG PO DAILY, (Reported) Entered as Reported by: NE GARRETT on 03/31/18 0950 Ondansetron HCl (Ondansetron HCl) 4 Mg Tablet, 4 MG PO Q6H PRN for NAUSEA/VOMITING-1ST LINE, (Reported) Entered as Reported by: NITO BREWER on 12/30/22 1357 Pantoprazole Sodium (Pantoprazole Sodium) 40 Mg Tablet.dr, 40 MG PO DAILY, (Reported) Entered as Reported by: NITO BREWER on 08/12/20 0919 Potassium Chloride (Potassium Chloride) 20 Meq Tablet.er, 20 MEQ PO BID, (Reported) Entered as Reported by: NITO BREWER on 01/27/21 0947 Triamterene/Hydrochlorothiazid (Triamterene-Hctz 37.5-25 mg Cp) 1 Each Capsule, 1 CAP PO DAILY, (Reported) Entered as Reported by: NE GARRETT on 03/31/18 0950 Venlafaxine HCl (Venlafaxine HCl ER) 75 Mg Cap.er.24h, 75 MG PO DAILY, (Reported) Entered as Reported by: NITO BREWER on 06/05/21 1345 Past Clnmmad-Wtvjnb-Tnpmap Hx Patient Social History Tobacco Use?: No Use of E-Cig and/or Vaping dev: No Substance use?: No Alcohol Use?: No Immunizations Up To Date Date of Influenza Vaccine: Aug 14, 2022 First/Initial COVID19 Vaccinat: 12/04 Second COVID19 Vaccination Yousuf: 01/04 Tetanus Booster (TDap): Unknown Hepatitis A: No Hepatitis B: No PED Vaccines UTD: Yes Date of Pneumonia Vaccine: Jan 04, 2018 Seasonal Allergies Seasonal Allergies: Yes Current Status Primary Language: Bolivian Preferred Spoken Language: Bolivian Past Medical History Surgeries: Lumpectomy, Orthopedic Asthma, Sleep Apnea, COPD Currently Using CPAP: Yes Currently Using BIPAP: No Coronary Artery Disease, High Cholesterol, Hypertension Neuropathy [employer] History: Menopausal Sexually Transmitted Disease: No Bladder Infection Gastroesophageal Reflux Arthritis, Rheumatoid Arthritis Hypothyroidsim, Diabetes, Non-Insulin dep Cataract, Tinnitis Loss of Vision: Denies Hearing Impairment: Denies Anxiety Blood Disorders: No Adverse Reaction/Blood Tranf: No Dx Myasthenia Gravis 07/2020 Family Medical History Reviewed Nursing Family Hx Alcoholism G8 BROTHER G8 SISTER Alzheimer's disease 19 MOTHER Arthritis 19 FATHER Asthma G8 SISTER Cardiovascular disease 19 FATHER Cataracts 19 FATHER Coronary thrombosis 19 FATHER Deafness or hearing loss SON Diabetes mellitus 19 FATHER G8 SISTER G8 SISTER Drug abuse G8 SISTER Hypertension 19 FATHER G8 SISTER G8 SISTER Kidney disease 19 FATHER Respiratory disorder G8 SISTER G8 SISTER Seizure disorder SON Severe allergy SON Heart Disease, Diabetes, Hypertension Review of Systems Constitutional: No chills, No fever EENTM: No hearing loss, No vision loss Respiratory: cough (increased frequency), short of breath, wheezing Cardiovascular: No chest pain, No palpitations Gastrointestinal: No abdominal pain, No nausea, No vomiting Genitourinary: no symptoms reported Musculoskeletal: no symptoms reported Skin: no symptoms reported Psychiatric/Neurological: No Symptoms Reported Physical Exam Vital Signs Vital Signs - First Documented 02/10/23 11:40 Temp 35.2 Pulse 84 Resp 24 B/P (MAP) 196/79 (118) Pulse Ox 97 O2 Delivery Nasal Cannula O2 Flow Rate 3.00 Capillary Refill : Less Than 3 Seconds Height, Weight, BMI Height: 5'6.00" Weight: 297lbs. 0.0oz. [id number]; 67.00 BMI Method:Stated General Appearance: No Apparent Distress, WD/WN, Obese Eyes: Bilateral Eye PERRL, Bilateral Eye EOMI HEENT: PERRL/EOMI, Pharynx Normal, Moist Mucous Membranes Neck: Non Tender, Supple Respiratory: Other (Inspiratory and expiratory wheezing present. Minimal accessory muscle use. no distress) Cardiovascular: Regular Rate, Rhythm, No Murmur, Normal Peripheral Pulses Gastrointestinal: Normal Bowel Sounds, Non Tender, Soft Extremity: Normal Capillary Refill, Non Tender, No Calf Tenderness Neurologic/Psychiatric: Alert, Oriented x3, No Motor/Sensory Deficits Skin: Normal Color, Warm/Dry Lymphatic: No Adenopathy Assessment/Plan Assessment and Plan Assessment Acute COPD exacerbation HTN Myasthenia Gravis RA DM Hx Blood clots in lungs Plan -Solu-medrol & Duoneb breathing treatments. No sign of pneumothorax, pulmonary vasc congestion, or infiltrates on CXR to suggest CHF or pneumonia. -Tolerating 3L O2 well at this time, which is baseline for patient -Insulin Sliding scale for DM while admitted to hospital -Will hold prednisone for MG since receiving solu-medrol currently. -Continue other home medications including eliquis. -DVT proph: lovenox -Diet: as tolerated SHAYLA ZAMORA DO 02/11/23 0533: Allergies and Home Medications Allergies Coded Allergies: adhesive tape (Verified Allergy, Intermediate, 01/25/23) BLISTERS AND RAW SKIN almond (Verified Allergy, Intermediate, Abdominal Pain, 01/25/23) Pt states having pain when she eat them. amlodipine (Verified Allergy, Unknown, 01/25/23) erythromycin base (Verified Allergy, Unknown, 01/25/23) Patient Home Medication List Home Medication List Reviewed: Yes Albuterol Sulfate (Ventolin Hfa) 90 Mcg Hfa.aer.ad, 2 PUFF IH Q4H PRN for SHORTNESS OF BREATH, (Reported) Entered as Reported by: MANGO DE LA TORRE on 04/26/22 0938 Alprazolam (Alprazolam) 0.5 Mg Tablet, 0.5 MG PO Q8H PRN for ANXIETY, (Reported) Entered as Reported by: NITO BREWER on 10/16/21 1125 Apixaban (Eliquis) 5 Mg Tablet, 5 MG PO BID, (Reported) Entered as Reported by: NITO BREWER on 01/27/21 0947 Atorvastatin Calcium (Atorvastatin Calcium) 20 Mg Tablet, 20 MG PO DAILY, (Reported) Entered as Reported by: NE GARRETT on 03/31/18 0950 Azathioprine (Imuran) 50 Mg Tablet, 100 MG PO BID, (Reported) Entered as Reported by: NITO BREWER on 10/16/21 1125 Azithromycin (Azithromycin) 250 Mg Tablet, 250 MG PO DAILY, (Reported) Entered as Reported by: MANGO DE LA TORRE on 04/26/22 0927 Benzonatate (Benzonatate) 200 Mg Capsule, 200 MG PO DAILY, (Reported) Entered as Reported by: Christiana Davison on 01/25/23 1549 Budesonide (Budesonide) 0.5 Mg/2 Ml Ampul.neb, 0.5 MG IH BID PRN for SHORTNESS OF BREATH, (Reported) Entered as Reported by: NITO BREWER on 12/30/22 1357 Budesonide/Glycopyr/Formoterol (Breztri Aerosphere Inhaler) 160 Mcg-9 Mcg-4.8 Mcg/Actuation Hfa.aer.ad, 2 PUFF IH DAILY, (Reported) Entered as Reported by: MANGO DE LA TORRE on 04/26/22 0955 Calcium Carbonate (Calcium Carbonate) 600 Mg Calcium (1500 Mg) Tablet, 600 MG PO BID, (Reported) Entered as Reported by: NITO BREWER on 10/16/21 1135 Cetirizine HCl (All Day Allergy) 10 Mg Tablet, 10 MG PO BID, (Reported) Entered as Reported by: NITO BREWER on 10/06/20 1532 Citalopram Hydrobromide (Citalopram HBr) 20 Mg Tablet, 20 MG PO DAILY, (Reported) Entered as Reported by: NITO BREWER on 10/06/20 1530 Clonidine HCl (Clonidine HCl) 0.1 Mg Tablet, 0.1 MG PO BID, (Reported) Entered as Reported by: NITO BREWER on 12/30/22 1357 Fluticasone Propionate (Fluticasone Propionate) 50 Mcg/Actuation [place].susp, 1 SPRAY NSEACH BID, (Reported) Entered as Reported by: NITO BREWER on 10/16/21 1125 Furosemide (Furosemide) 40 Mg Tablet, 40 MG PO DAILY PRN for FLUID RETENTION, (Reported) Entered as Reported by: MARIIA ALEJANDRO on 12/25/20 1838 Glyburide (Glyburide) 2.5 Mg Tablet, 2.5 MG PO DAILY, (Reported) Entered as Reported by: Christiana Davison on 01/25/23 1549 Ipratropium/Albuterol Sulfate (Iprat-Albut 0.5-3(2.5) mg/3 ml) 0.5 Mg-3 Mg (2.5 Mg Base)/3 Ml Ampul.neb, 3 ML NEB Q4H PRN for SHORTNESS OF BREATH, (Reported) Entered as Reported by: MANGO DE LA TORRE on 04/26/22 0938 Levothyroxine Sodium (Levothyroxine Sodium) 50 Mcg Tablet, 50 MCG PO DAILY, (Reported) Entered as Reported by: VIVEK ROJAS on 07/31/15 1558 Losartan Potassium (Losartan Potassium) 50 Mg Tablet, 50 MG PO DAILY, (Reported) Entered as Reported by: NITO BREWER on 10/06/20 1530 Melatonin (Melatonin) 10 Mg Tablet, 20 MG PO HS, (Reported) Entered as Reported by: NITO BREWER on 04/29/21 1240 Montelukast Sodium (Montelukast Sodium) 10 Mg Tablet, 10 MG PO DAILY, (Reported) Entered as Reported by: NE GARRETT on 03/31/18 0950 Ondansetron HCl (Ondansetron HCl) 4 Mg Tablet, 4 MG PO Q6H PRN for NAUSEA/VOMITING-1ST LINE, (Reported) Entered as Reported by: NITO BREWER on 12/30/22 1357 Pantoprazole Sodium (Pantoprazole Sodium) 40 Mg Tablet.dr, 40 MG PO DAILY, (Reported) Entered as Reported by: NITO BREWER on 08/12/20 0919 Potassium Chloride (Potassium Chloride) 20 Meq Tablet.er, 20 MEQ PO BID, (Reported) Entered as Reported by: NITO BREWER on 01/27/21 0947 Triamterene/Hydrochlorothiazid (Triamterene-Hctz 37.5-25 mg Cp) 1 Each Capsule, 1 CAP PO DAILY, (Reported) Entered as Reported by: NE GARRETT on 03/31/18 0950 Venlafaxine HCl (Venlafaxine HCl ER) 75 Mg Cap.er.24h, 75 MG PO DAILY, (Reported) Entered as Reported by: NITO BREWER on 06/05/21 2300 Past Jwfroqn-Irncsl-Ydvqoh Hx Patient Social History Marrital Status: Employed/Student: employed Smoking Status: Never a Smoker Past Medical History Pneumonia, Sleep Apnea, COPD Currently Using CPAP: Yes Currently Using BIPAP: No Family Medical History Alcoholism G8 BROTHER G8 SISTER Alzheimer's disease 19 MOTHER Arthritis 19 FATHER Asthma G8 SISTER Cardiovascular disease 19 FATHER Cataracts 19 FATHER Coronary thrombosis 19 FATHER Deafness or hearing loss SON Diabetes mellitus 19 FATHER G8 SISTER G8 SISTER Drug abuse G8 SISTER Hypertension 19 FATHER G8 SISTER G8 SISTER Kidney disease 19 FATHER Respiratory disorder G8 SISTER G8 SISTER Seizure disorder SON Severe allergy SON Review of Systems Constitutional: see HPI Respiratory: short of breath, wheezing Physical Exam General Appearance: Anxious, Chronically ill Respiratory: Wheezing, Other (Inspiratory and expiratory wheezing present. Minimal accessory muscle use. no distress) Cardiovascular: Regular Rate, Rhythm Assessment/Plan Admission Diagnosis Admission Status: Observation Supervisory-Addendum Brief Verification & Attestation Participated in pt care: history, MDM, physical Personally performed: exam, history, MDM, supervision of care Care discussed with: Medical Student Procedures: n/a Results interpretation: Verified all documentation Verification and Attestation of Medical Student E/M Service A medical student performed and documented this service in my presence. I reviewed and verified all information documented by the medical student and made modifications to such information, when appropriate. I personally performed the physical exam and medical decision making. Shayla Zamora Feb 11, 2023,05:33 LIBRA MCCARTNEY Feb 10, 2023 13:48 SHAYLA ZAMORA DO Feb 11, 2023 05:33
[2023-02-10] MEDS ORDERED: MELATONIN 3 MG TABLET PO PRN (14:30)
[2023-02-10] MEDS ORDERED: ONDANSETRON 4 MG/2 ML (SDV) Z0FRAN IV PRN (14:30)
[2023-02-10] MEDS ORDERED: MILK OF MAGNESIA 400 MG/5 ML 30 ML UDC PO PRN (14:30)
[2023-02-10] MEDS ORDERED: polyethylene glycoL POWDER 17 GM (MIRALAX) PACK PO PRN (14:30)
[2023-02-10] MEDS ORDERED: CALCIUM CARBONATE 500 MG (TUMS) TAB.CHEW PO PRN (14:30)
[2023-02-10] MEDS ORDERED: ANTACID SUSP 30 ML UDC (MYLANTA) PO PRN (14:30)
[2023-02-10] MEDS ORDERED: LACTULOSE SYRUP 10GM/15ML (ENULOSE) 30ML UDC PO PRN (14:30)
[2023-02-10] MEDS ORDERED: ONDANSETRON 4 MG (ZOFRAN) ORAL DISSOLVE TAB PO PRN (14:30)
[2023-02-10] MEDS ORDERED: diphenhydrAMINE 25 MG TAB (BENADRYL) PO PRN (14:30)
[2023-02-10] MEDS ORDERED: diphenhydrAMINE 50 MG/ML INJ (BENADRYL) IVP PRN (14:30)
[2023-02-10] MEDS ORDERED: BISACODYL 10 MG SUPP (DULCOLAX) PR PRN (14:30)
[2023-02-10] MEDS ORDERED: HYDROmorphone 2 MG/ML VIAL (DILAUDID) IV PRN (14:30)
[2023-02-10 14:47] VITALS: BP 145/73
[2023-02-10 15:07] LABS: BASOPHILS % (AUTO) 0 % (0-10); EOSINOPHILS % (AUTO) 0 % (0-10); HEMATOCRIT 37 % (35-52); HEMOGLOBIN 11.4 g/dL (11.5-16.0); LYMPHOCYTES # (AUTO) 0.3 X 10^3 (1.0-4.0); LYMPHOCYTES % (AUTO) 4 % (12-44); MEAN CORPUSCULAR HEMOGLOBIN 30 pg (25-34); MEAN CORPUSCULAR HGB CONC 31 g/dL (32-36); MEAN CORPUSCULAR VOLUME 95 fL (80-99); MEAN PLATELET VOLUME 10.1 fL (9.0-12.2); MONOCYTES # (AUTO) 0.2 X 10^3 (0.0-1.0); MONOCYTES % (AUTO) 3 % (0-12); NEUTROPHILS # (AUTO) 7.1 X 10^3 (1.8-7.8); NEUTROPHILS % (AUTO) 93 % (42-75); PLATELET COUNT 234 10^3/uL (130-400); WHITE BLOOD COUNT 7.6 10^3/uL (4.3-11.0)
[2023-02-10 15:19] LABS: ALBUMIN 3.9 GM/DL (3.2-4.5)
[2023-02-10 15:20] LABS: CHLORIDE 103 MMOL/L (98-107); POTASSIUM 4.3 MMOL/L (3.6-5.0); SODIUM 138 MMOL/L (135-145)
[2023-02-10 15:21] LABS: CALCIUM 9.9 MG/DL (8.5-10.1)
[2023-02-10 15:22] LABS: GLUCOSE 212 MG/DL (70-105)
[2023-02-10 15:23] LABS: CARBON DIOXIDE 25 MMOL/L (21-32)
[2023-02-10 15:24] LABS: BILIRUBIN,TOTAL 0.5 MG/DL (0.1-1.0)
[2023-02-10 15:25] LABS: ALKALINE PHOSPHATASE 127 U/L (40-136)
[2023-02-10 15:26] LABS: CREATININE SERUM 0.89 MG/DL (0.60-1.30); GFR ESTIMATED 72
[2023-02-10 15:27] LABS: BUN/CREATININE RATIO 25
[2023-02-10 15:28] VITALS: BP 145/73
[2023-02-10 15:29] LABS: ALANINE AMINOTRANSFERASE 24 U/L (0-55)
[2023-02-10] MEDS ORDERED: RT-ALBUTEROL/IPRATROPIUM 3 ML (DUONEB) VIAL INH PRN (15:45)
[2023-02-10] MEDS: inSUlin ASPART (NovoLOG) 1 UNIT/0.01 ML (CHARGE PER UNIT) SC SCH ×2 (16:00→22:01)
[2023-02-10 16:01] VITALS: BP 192/78
[2023-02-10] MEDS: cloNIDine 0.1 MG (CATAPRES) TAB PO PRN (16:30)
[2023-02-10 17:06] LABS: BAND NEUTROPHILS 7 %; BASOPHILS % (MANUAL) 1 %; LYMPHOCYTES % (MANUAL) 8 %; METAMYELOCYTES % 2 %; MONOCYTES % (MANUAL) 2 %; NEUTROPHILS % (MANUAL) 80 %; PLATELET ESTIMATE NORMAL; RBC MORPH NORMAL
[2023-02-10] MEDS: methylPREDNISolone 40 MG/ML (Solu-MEDROL) VIAL IV SCH (17:43)
[2023-02-10 20:10] VITALS: BP 175/82
[2023-02-10] MEDS ORDERED: hydrALAZINE (APESOLINE) 20 MG/ML VIAL IV PRN (21:00)
[2023-02-10] MEDS ORDERED: ENALAPRILAT 2.5 MG/2 ML (VASOTEC) VIAL IV SCH (21:00)
[2023-02-10] MEDS ORDERED: NITROGLYCERIN 2% OINT 1 GM UNIT DOSE PACKET TOP PRN (21:00)
[2023-02-10] MEDS: DOCUSATE SODIUM 100 MG (COLACE) CAP PO SCH (22:01)
[2023-02-10] MEDS: APIXABAN 5 MG (ELIQUIS) TABLET PO SCH (22:01)
[2023-02-10] MEDS: SENNOSIDES 8.6 MG (SENOKOT) TAB PO SCH (22:02)
[2023-02-10] MEDS: RT-ALBUTEROL/IPRATROPIUM 3 ML (DUONEB) VIAL INH SCH (22:07)
[2023-02-10 23:29] VITALS: BP 147/72
[2023-02-11] VITALS (7 sets, daily range): BP systolic 124–190; BP diastolic 60–81
[2023-02-11] MEDS ORDERED: guaiFENesin/DM (ROBITUSSIN DM) 10 ML UDC PO PRN (00:30)
[2023-02-11] MEDS: methylPREDNISolone 40 MG/ML (Solu-MEDROL) VIAL IV SCH ×5 (00:59→23:50)
[2023-02-11] MEDS: RT-ALBUTEROL/IPRATROPIUM 3 ML (DUONEB) VIAL INH SCH (02:47)
[2023-02-11] MEDS: ENALAPRILAT 2.5 MG/2 ML (VASOTEC) VIAL IV SCH ×4 (05:01→21:48)
[2023-02-11] MEDS ORDERED: RT-BUDESONIDE NEBS 0.5 MG/2ML (PULMICORT) AMP IH PRN (05:45)
[2023-02-11] MEDS ORDERED: NON-FORMULARY MEDICATION 1 EA EA (Ondansetron HCl 4 MG) PO PRN (05:45)
[2023-02-11] MEDS ORDERED: FUROSEMIDE 40 MG (LASIX) TAB PO PRN (05:45)
[2023-02-11 06:00] LABS: BASOPHILS % (AUTO) 0 % (0-10); EOSINOPHILS % (AUTO) 0 % (0-10); HEMATOCRIT 37 % (35-52); HEMOGLOBIN 11.5 g/dL (11.5-16.0); LYMPHOCYTES # (AUTO) 0.4 10^3/uL (1.0-4.0); LYMPHOCYTES % (AUTO) 4 % (12-44); MEAN CORPUSCULAR HEMOGLOBIN 29 pg (25-34); MEAN CORPUSCULAR HGB CONC 31 g/dL (32-36); MEAN CORPUSCULAR VOLUME 94 fL (80-99); MEAN PLATELET VOLUME 10.3 fL (9.0-12.2); MONOCYTES # (AUTO) 0.1 10^3/uL (0.0-1.0); MONOCYTES % (AUTO) 1 % (0-12); NEUTROPHILS # (AUTO) 8.4 10^3/uL (1.8-7.8); NEUTROPHILS % (AUTO) 94 % (42-75); PLATELET COUNT 248 10^3/uL (130-400)
[2023-02-11 06:06] LABS: ALBUMIN 3.7 GM/DL (3.2-4.5); BILIRUBIN,TOTAL 0.4 MG/DL (0.1-1.0); CALCIUM 9.6 MG/DL (8.5-10.1); CREATININE SERUM 0.95 MG/DL (0.60-1.30); TOTAL PROTEIN 6.8 GM/DL (6.4-8.2)
[2023-02-11] MEDS: inSUlin ASPART (NovoLOG) 1 UNIT/0.01 ML (CHARGE PER UNIT) SC SCH ×4 (06:10→20:20)
[2023-02-11] MEDS: LEVOTHYROXINE 50 MCG (LEVOTHROID) TAB PO SCH (06:10)
[2023-02-11] MEDS ORDERED: RT-IPRATROPIUM (ATROVENT) 0.5MG/2.5ML AMP IH PRN (07:15)
[2023-02-11] MEDS ORDERED: RT-ALBUTEROL SULF 2.5 MG/3 ML PRE-MIX VIAL IH PRN (07:15)
[2023-02-11] MEDS ORDERED: RT--FLUTICASONE/SALMETEROL 232-14 (AIRDUO RespiCLICK) IH SCH (08:00)
[2023-02-11] MEDS ORDERED: glyBURIDE 2.5 MG (MICRONASE) TAB PO SCH (08:00)
[2023-02-11] MEDS ORDERED: UMECLIDINIUM BROMIDE (INCRUSE ELLIPTA) 7'S IH SCH (08:00)
[2023-02-11] MEDS: RT-ALBUTEROL SULF 2.5 MG/3 ML PRE-MIX VIAL IH SCH ×3 (08:15→20:34)
[2023-02-11] MEDS: RT-IPRATROPIUM (ATROVENT) 0.5MG/2.5ML AMP IH SCH ×3 (08:15→20:34)
[2023-02-11] MEDS ORDERED: AZATHIOPRINE 100 MG PO SCH (09:00)
[2023-02-11] MEDS: SENNOSIDES 8.6 MG (SENOKOT) TAB PO SCH ×2 (09:35→20:10)
[2023-02-11] MEDS: LOSARTAN 50 MG (COZAAR) TAB PO SCH (09:35)
[2023-02-11] MEDS: PANTOPRAZOLE 40 MG (PROTONIX) TAB PO SCH (09:35)
[2023-02-11] MEDS: VENlafaxine XR 75 MG (EFFEXOR XR) CAP PO SCH (09:35)
[2023-02-11] MEDS: LORATADINE (CLARITIN) 10 MG TAB PO SCH ×2 (09:35→20:09)
[2023-02-11] MEDS: MONTELUKAST 10 MG (SINGULAIR) TAB PO SCH (09:35)
[2023-02-11] MEDS: KCL 20 MEQ TAB (K-DUR) PO SCH ×2 (09:35→16:36)
[2023-02-11] MEDS: cloNIDine 0.1 MG (CATAPRES) TAB PO SCH ×2 (09:35→20:09)
[2023-02-11] MEDS: DOCUSATE SODIUM 100 MG (COLACE) CAP PO SCH ×2 (09:35→20:11)
[2023-02-11] MEDS: APIXABAN 5 MG (ELIQUIS) TABLET PO SCH ×2 (09:35→20:10)
[2023-02-11] MEDS: TRIAMTERENE/HCTZ 75-50 (MAXZIDE,DYAZIDE) TABLET PO SCH (09:36)
[2023-02-11] MEDS: CALCIUM CARBONATE 600 MG (CALCARB) TAB PO SCH ×2 (09:36→20:09)
[2023-02-11] MEDS: FLUTICASONE NASAL SPRAY (FLONASE) 16 GM BTL NS SCH ×2 (09:36→20:08)
[2023-02-11] MEDS ORDERED: PRED5TAB PO (10:59)
[2023-02-11] MEDS ORDERED: EZET10TA49 PO (10:59)
[2023-02-11] MEDS ORDERED: ACET600C PO (10:59)
[2023-02-11] MEDS ORDERED: CHOL-34 PO (10:59)
--- NOTE | 2023-02-11 13:24 | Progress Note ---
LIBRA MCCARTNEY 02/11/23 1324: Subjective Date Seen by a Provider: Feb 11, 2023 Time Seen by a Provider: 08:00 Subjective/Events-last exam Patient was awake sittinng in bed this morning when seen. She was alert and oriented and reported an improvement in SOB and cough, but not returned to her baseline. She continues to oxygenate well on 3L O2 and labwork from yesterday revealed no leukocytosis or marked electrolyte abnormalites. She does still get winded with speaking and can be heard wheezing frequently while breathing. She is ambulating to the bathroom to use the restroom and has been urinating well. She denies LH, headache, CP, palpitations, abd pain, N/V/D, new numbne ss/weakness in arms or legs. Review of Systems General: No Chills; Fatigue (mild) HEENT: No Head Aches, No Visual Changes Pulmonary: Dyspnea, Cough Cardiovascular: No: Chest Pain, Palpitations Gastrointestinal: No: Nausea, Vomiting, Abdominal Pain Genitourinary: No Dysuria, No Hematuria Neurological: No: Weakness, Numbness, Confusion Objective Exam Last Set of Vital Signs Vital Signs Date Time Temp Pulse Resp B/P (MAP) Pulse Ox O2 Delivery O2 Flow Rate FiO2 02/11/23 11:00 36.6 107 22 190/81 (117) Nasal Cannula 3.00 02/11/23 08:24 95 02/10/23 15:28 32 Capillary Refill : Less Than 3 Seconds I&O Intake and Output 02/11/23 00:00 Intake Total 980 ml Balance 980 ml Intake Oral 980 ml # Voids 4 Daily Weight Change No General: Alert, Oriented X3 HEENT: Atraumatic, EOMI Lungs: Other (Wheezing throughout on exam. Slightly improved since yesterday.) Heart: Regular Rate, No Murmurs Abdomen: Normal Bowel Sounds, Soft, No Tenderness Extremities: No Clubbing, No Cyanosis, No Edema, Normal Pulses Skin: No Rashes, No Breakdown, No Significant Lesion Neuro: Normal Speech, Normal Tone, Sensation Intact Results Lab Laboratory Tests 02/10/23 14:54: White Blood Count 7.6, Red Blood Count 3.84, Hemoglobin 11.4L, Hematocrit 37, Mean Corpuscular Volume 95, Mean Corpuscular Hemoglobin 30, Mean Corpuscular Hemoglobin Concent 31L, Red Cell Distribution Width 14.9H, Platelet Count 234, Mean Platelet Volume 10.1, Immature Granulocyte % (Auto) 0, Neutrophils (%) (Auto) 93H, Lymphocytes (%) (Auto) 4L, Monocytes (%) (Auto) 3, Eosinophils (%) (Auto) 0, Basophils (%) (Auto) 0, Neutrophils # (Auto) 7.1, Lymphocytes # (Auto) 0.3L, Monocytes # (Auto) 0.2, Eosinophils # (Auto) 0.0, Basophils # (Auto) 0.0, Immature Granulocyte # (Auto) 0.0, Neutrophils % (Manual) 80, Lymphocytes % (Manual) 8, Monocytes % (Manual) 2, Basophils % (Manual) 1, Metamyelocytes % 2, Band Neutrophils 7, Platelet Estimate NORMAL, Blood Morphology Comment NORMAL, Sodium Level 138, Potassium Level 4.3, Chloride Level 103, Carbon Dioxide Level 25, Anion Gap 10, Blood Urea Nitrogen 22H, Creatinine 0.89, Estimat Glomerular Filtration Rate 72, BUN/Creatinine Ratio 25, Glucose Level 212H, Calcium Level 9.9, Corrected Calcium 10.0, Total Bilirubin 0.5, Aspartate Amino Transf (AST/SG OT) 19, Alanine Aminotransferase (ALT/SGPT) 24, Alkaline Phosphatase 127, Troponin I < 0.028, Total Protein 7.0, Albumin 3.9 02/10/23 15:54: Glucometer 230H 02/10/23 21:06: Glucometer 329H 02/11/23 05:25: White Blood Count 9.0, Red Blood Count 3.92, Hemoglobin 11.5, Hematocrit 37, Mean Corpuscular Volume 94, Mean Corpuscular Hemoglobin 29, Mean Corpuscular Hemoglobin Concent 31L, Red Cell Distribution Width 14.7H, Platelet Count 248, Mean Platelet Volume 10.3, Immature Granulocyte % (Auto) 1, Neutrophils (%) (Auto) 94H, Lymphocytes (%) (Auto) 4L, Monocytes (%) (Auto) 1, Eosinophils (%) (Auto) 0, Basophils (%) (Auto) 0, Neutrophils # (Auto) 8.4H, Lymphocytes # (Auto) 0.4L, Monocytes # (Auto) 0.1, Eosinophils # (Auto) 0.0, Basophils # (Auto) 0.0, Immature Granulocyte # (Auto) 0.1, Sodium Level 139, Potassium Level 4.0, Chloride Level 103, Carbon Dioxide Level 22, Anion Gap 14, Blood Urea Nitrogen 23H, Creatinine 0.95, Estimat Glomerular Filtration Rate 67, BUN/Creatinine Ratio 24, Glucose Level 261H, Calcium Level 9.6, Corrected Calcium 9.8, Total Bilirubin 0.4, Aspartate Amino Transf (AST/SGOT) 20, Alanine Aminotransferase (ALT/SGPT) 24, Alkaline Phosphatase 125, Total Protein 6.8, Albumin 3.7, Glucometer 246H 02/11/23 10:44: Glucometer 298H Assessment/Plan Assessment/Plan Assess & Plan/Chief Complaint Assessment Acute COPD exacerbation HTN Myasthenia Gravis RA DM Hx Blood clots in lungs Plan -Solu-medrol & Duoneb breathing treatments initially. Will restart patients home inhalers which include albuteral and Breztri inhalers. -Tolerating 3L O2 well at this time, which is baseline for patient -Insulin Sliding scale for DM while admitted to hospital. -Will hold prednisone for MG since receiving solu-medrol currently. -Continue other home medications including eliquis. -Vitals & labwork are stabel and unremarkable, but due to significant wheezing and SOB with talking/exertion will opt to watch patient for at least 1 more day. -DVT proph: lovenox -Diet: as tolerated Clinical Quality Measures Admission Status Admission Dx Assessment Acute COPD exacerbation HTN Myasthenia Gravis RA DM Hx Blood clots in lungs Plan -Solu-medrol & Duoneb breathing treatments. No sign of pneumothorax, pulmonary vasc congestion, or infiltrates on CXR to suggest CHF or pneumonia. -Tolerating 3L O2 well at this time, which is baseline for patient -Insulin Sliding scale for DM while admitted to hospital -Will hold prednisone for MG since receiving solu-medrol currently. -Continue other home medications including eliquis. -DVT proph: lovenox -Diet: as tolerated SHAYLA ZAMORA DO 02/12/23 0628: Supervisory-Addendum Brief Verification & Attestation Participated in pt care: history, MDM, physical Personally performed: exam, history, MDM, supervision of care Care discussed with: Medical Student Procedures: n/a Results interpretation: Verified all documentation Verification and Attestation of Medical Student E/M Service A medical student performed and documented this service in my presence. I reviewed and verified all information documented by the medical student and made modifications to such information, when appropriate. I personally performed the physical exam and medical decision making. Shayla Zamora, Feb 12, 2023,06:28 LIBRA MCCARTNEY Feb 11, 2023 13:24 SHAYLA ZAMORA DO Feb 12, 2023 06:28
[2023-02-11] MEDS ORDERED: PATIENT MAY USE OWN MED,SINGLE MED PO SCH (15:45)
[2023-02-11] MEDS: MELATONIN 10 MG TABLET PO SCH (20:09)
[2023-02-11] MEDS: ACETAMINOPHEN 325 MG TABLET PO PRN (20:20)
[2023-02-11] MEDS: ALPRAZolam 0.5 MG (XANAX) TAB PO PRN (21:49)
[2023-02-11] MEDS: cloNIDine 0.1 MG (CATAPRES) TAB PO PRN (23:50)
[2023-02-12] VITALS (8 sets, daily range): BP systolic 124–168; BP diastolic 62–107
[2023-02-12] MEDS: RT-IPRATROPIUM (ATROVENT) 0.5MG/2.5ML AMP IH SCH ×4 (02:13→20:58)
[2023-02-12] MEDS: RT-ALBUTEROL SULF 2.5 MG/3 ML PRE-MIX VIAL IH SCH ×4 (02:13→20:58)
[2023-02-12] MEDS: ENALAPRILAT 2.5 MG/2 ML (VASOTEC) VIAL IV SCH ×4 (03:11→21:51)
[2023-02-12] MEDS: LEVOTHYROXINE 50 MCG (LEVOTHROID) TAB PO SCH (06:15)
[2023-02-12] MEDS: methylPREDNISolone 40 MG/ML (Solu-MEDROL) VIAL IV SCH ×2 (06:15→20:14)
[2023-02-12] MEDS: inSUlin ASPART (NovoLOG) 1 UNIT/0.01 ML (CHARGE PER UNIT) SC SCH ×4 (06:15→20:15)
[2023-02-12 06:27] LABS: BASOPHILS % (AUTO) 0 % (0-10); EOSINOPHILS % (AUTO) 0 % (0-10); HEMATOCRIT 33 % (35-52); HEMOGLOBIN 10.7 g/dL (11.5-16.0); LYMPHOCYTES # (AUTO) 0.5 10^3/uL (1.0-4.0); LYMPHOCYTES % (AUTO) 4 % (12-44); MEAN CORPUSCULAR HEMOGLOBIN 30 pg (25-34); MEAN CORPUSCULAR HGB CONC 32 g/dL (32-36); MEAN CORPUSCULAR VOLUME 93 fL (80-99); MEAN PLATELET VOLUME 10.3 fL (9.0-12.2); MONOCYTES # (AUTO) 0.3 10^3/uL (0.0-1.0); MONOCYTES % (AUTO) 2 % (0-12); NEUTROPHILS # (AUTO) 12.8 10^3/uL (1.8-7.8); NEUTROPHILS % (AUTO) 94 % (42-75); PLATELET COUNT 254 10^3/uL (130-400); WHITE BLOOD COUNT 13.7 10^3/uL (4.3-11.0)
[2023-02-12 06:37] LABS: ALBUMIN 3.6 GM/DL (3.2-4.5); POTASSIUM 4.3 MMOL/L (3.6-5.0)
[2023-02-12 06:38] LABS: CALCIUM 9.5 MG/DL (8.5-10.1)
[2023-02-12 06:40] LABS: TOTAL PROTEIN 6.4 GM/DL (6.4-8.2)
[2023-02-12 06:41] LABS: BILIRUBIN,TOTAL 0.2 MG/DL (0.1-1.0)
[2023-02-12 06:43] LABS: CREATININE SERUM 0.99 MG/DL (0.60-1.30)
--- NOTE | 2023-02-12 07:22 | Progress Note ---
Subjective Date Seen by a Provider: Feb 12, 2023 Time Seen by a Provider: 11:00 Subjective/Events-last exam Patient is improved Wheezing is less Nebs are ordered and hypertonic saline is now being used No falls Will walk in halls today Son at bedside Review of Systems General: Fatigue Pulmonary: Dyspnea Objective Exam Last Set of Vital Signs Vital Signs Date Time Temp Pulse Resp B/P (MAP) Pulse Ox O2 Delivery O2 Flow Rate FiO2 02/12/23 03:10 36.2 65 16 129/75 (93) 95 NIV CPAP 02/10/23 15:28 32 Capillary Refill : Less Than 3 Seconds I&O Intake and Output 02/12/23 00:00 Intake Total 1890 ml Balance 1890 ml Intake Oral 1890 ml # Voids 12 # Bowel Movements 3 General: Alert, Oriented X3, Cooperative, No Acute Distress Lungs: Other (wheezing but improved) Psych/Mental Status: Mental Status NL Results Lab Laboratory Tests 02/11/23 10:44: Glucometer 298H 02/11/23 15:26: Glucometer 331H 02/11/23 20:13: Glucometer 306H 02/12/23 05:19: Glucometer 272H 02/12/23 06:19: White Blood Count 13.7H, Red Blood Count 3.56L, Hemoglobin 10.7L, Hematocrit 33L , Mean Corpuscular Volume 93, Mean Corpuscular Hemoglobin 30, Mean Corpuscular Hemoglobin Concent 32, Red Cell Distribution Width 15.6H, Platelet Count 254, Mean Platelet Volume 10.3, Immature Granulocyte % (Auto) 1, Neutrophils (%) (Auto) 94H, Lymphocytes (%) (Auto) 4L, Monocytes (%) (Auto) 2, Eosinophils (%) (Auto) 0, Basophils (%) (Auto) 0, Neutrophils # (Auto) 12.8H, Lymphocytes # (Auto) 0.5L, Monocytes # (Auto) 0.3, Eosinophils # (Auto) 0.0, Basophils # (Auto) 0.0, Immature Granulocyte # (Auto) 0.1, Sodium Level 138, Potassium Level 4.3, Chloride Level 104, Carbon Dioxide Level 24, Anion Gap 10, Blood Urea Nitrogen 28H, Creatinine 0.99, Estimat Glomerular Filtration Rate 64, BUN/Crea tinine Ratio 28, Glucose Level 281H, Calcium Level 9.5, Corrected Calcium 9.8, Total Bilirubin 0.2, Aspartate Amino Transf (AST/SGOT) 14, Alanine Aminotransferase (ALT/SGPT) 22, Alkaline Phosphatase 107, Total Protein 6.4, Albumin 3.6 Assessment/Plan Assessment/Plan Assess & Plan/Chief Complaint Assessment: Acute hypoxic respiratory failure Acute COPD exacerbation HTN Myasthenia Gravis RA DM Hx PE h/o long COVID RALPH on CPAP Plan: Home meds Hypersal nebs IV steroids Clinical Quality Measures Admission Status Admission Dx FABIENNE ZAMORA DO Feb 12, 2023 07:22
[2023-02-12] MEDS: NON-FORM (Breztri Aerosphere Inhaler) IH SCH (07:44)
[2023-02-12] MEDS: cloNIDine 0.1 MG (CATAPRES) TAB PO SCH ×2 (07:59→20:14)
[2023-02-12] MEDS: CALCIUM CARBONATE 600 MG (CALCARB) TAB PO SCH ×2 (08:00→20:14)
[2023-02-12] MEDS: eZETimibe 10 MG (ZETIA) TABLET PO SCH (08:00)
[2023-02-12] MEDS: MONTELUKAST 10 MG (SINGULAIR) TAB PO SCH (08:00)
[2023-02-12] MEDS: APIXABAN 5 MG (ELIQUIS) TABLET PO SCH ×2 (08:00→20:14)
[2023-02-12] MEDS: SENNOSIDES 8.6 MG (SENOKOT) TAB PO SCH ×2 (08:00→20:15)
[2023-02-12] MEDS: KCL 20 MEQ TAB (K-DUR) PO SCH ×2 (08:00→16:46)
[2023-02-12] MEDS: glyBURIDE 2.5 MG (MICRONASE) TAB PO SCH (08:00)
[2023-02-12] MEDS: PANTOPRAZOLE 40 MG (PROTONIX) TAB PO SCH (08:00)
[2023-02-12] MEDS: VENlafaxine XR 75 MG (EFFEXOR XR) CAP PO SCH (08:00)
[2023-02-12] MEDS: DOCUSATE SODIUM 100 MG (COLACE) CAP PO SCH ×2 (08:00→20:14)
[2023-02-12] MEDS: LOSARTAN 50 MG (COZAAR) TAB PO SCH (08:00)
[2023-02-12] MEDS: LORATADINE (CLARITIN) 10 MG TAB PO SCH ×2 (08:00→20:14)
[2023-02-12] MEDS: TRIAMTERENE/HCTZ 75-50 (MAXZIDE,DYAZIDE) TABLET PO SCH (08:01)
[2023-02-12] MEDS: FLUTICASONE NASAL SPRAY (FLONASE) 16 GM BTL NS SCH ×2 (08:01→20:16)
[2023-02-12] MEDS ORDERED: RT-HYPERTONIC SALINE 3% 4 ML NEB INH SCH (12:00)
[2023-02-12] MEDS: RT-HYPERTONIC SALINE 3% 4 ML NEB INH SCH ×2 (15:02→20:59)
[2023-02-12] MEDS: MELATONIN 10 MG TABLET PO SCH (20:14)
[2023-02-12] MEDS: ALPRAZolam 0.5 MG (XANAX) TAB PO PRN (21:50)
[2023-02-13] VITALS (7 sets, daily range): BP systolic 132–165; BP diastolic 62–77
[2023-02-13] MEDS: RT-IPRATROPIUM (ATROVENT) 0.5MG/2.5ML AMP IH SCH ×4 (03:02→22:10)
[2023-02-13] MEDS: RT-ALBUTEROL SULF 2.5 MG/3 ML PRE-MIX VIAL IH SCH ×4 (03:02→22:10)
[2023-02-13] MEDS: RT-HYPERTONIC SALINE 3% 4 ML NEB INH SCH ×4 (03:02→22:10)
[2023-02-13] MEDS: ENALAPRILAT 2.5 MG/2 ML (VASOTEC) VIAL IV SCH ×2 (04:54→10:25)
[2023-02-13] MEDS: LEVOTHYROXINE 50 MCG (LEVOTHROID) TAB PO SCH (05:00)
[2023-02-13 05:19] LABS: BASOPHILS % (AUTO) 0 % (0-10); EOSINOPHILS % (AUTO) 0 % (0-10); HEMATOCRIT 33 % (35-52); HEMOGLOBIN 10.5 g/dL (11.5-16.0); LYMPHOCYTES # (AUTO) 0.5 10^3/uL (1.0-4.0); LYMPHOCYTES % (AUTO) 4 % (12-44); MEAN CORPUSCULAR HEMOGLOBIN 30 pg (25-34); MEAN CORPUSCULAR HGB CONC 32 g/dL (32-36); MEAN CORPUSCULAR VOLUME 94 fL (80-99); MEAN PLATELET VOLUME 10.3 fL (9.0-12.2); MONOCYTES # (AUTO) 0.3 10^3/uL (0.0-1.0); MONOCYTES % (AUTO) 2 % (0-12); NEUTROPHILS % (AUTO) 93 % (42-75); PLATELET COUNT 250 10^3/uL (130-400); WHITE BLOOD COUNT 11.9 10^3/uL (4.3-11.0)
[2023-02-13 05:37] LABS: ALBUMIN 3.6 GM/DL (3.2-4.5); BILIRUBIN,TOTAL 0.2 MG/DL (0.1-1.0); CALCIUM 9.3 MG/DL (8.5-10.1); CREATININE SERUM 1.01 MG/DL (0.60-1.30); POTASSIUM 4.6 MMOL/L (3.6-5.0); TOTAL PROTEIN 6.1 GM/DL (6.4-8.2)
[2023-02-13] MEDS: inSUlin ASPART (NovoLOG) 1 UNIT/0.01 ML (CHARGE PER UNIT) SC SCH ×4 (06:14→20:25)
--- NOTE | 2023-02-13 06:23 | Progress Note ---
Subjective Date Seen by a Provider: Feb 13, 2023 Time Seen by a Provider: 11:00 Subjective/Events-last exam Doing better Less wheezing Eating ok BM+ Sugars high due to steroids Monitoring closely Review of Systems Pulmonary: Dyspnea Objective Exam Last Set of Vital Signs Vital Signs Date Time Temp Pulse Resp B/P (MAP) Pulse Ox O2 Delivery O2 Flow Rate FiO2 02/13/23 03:18 36.5 70 16 132/77 (95) 97 Nasal Cannula 3.00 02/10/23 15:28 32 Capillary Refill : Less Than 3 Seconds I&O Intake and Output 02/12/23 23:59 Intake Total 1600 ml Output Total 1950 ml Balance -350 ml Intake Oral 1600 ml Output Urine Total 1950 ml # Bowel Movements 1 General: Alert, Oriented X3, Cooperative, No Acute Distress Lungs: Other (wheezing end expiratory) Heart: Regular Rate, Normal S1, Normal S2, No Murmurs Psych/Mental Status: Mental Status NL, Mood NL Results Lab Laboratory Tests 02/12/23 10:25: Glucometer 287H 02/12/23 15:46: Glucometer 319H 02/12/23 19:56: Glucometer 273H 02/13/23 04:57: Glucometer 284H 02/13/23 05:06: White Blood Count 11.9H, Red Blood Count 3.54L, Hemoglobin 10.5L, Hematocrit 33L , Mean Corpuscular Volume 94, Mean Corpuscular Hemoglobin 30, Mean Corpuscular Hemoglobin Concent 32, Red Cell Distribution Width 15.9H, Platelet Count 250, Mean Platelet Volume 10.3, Immature Granulocyte % (Auto) 1, Neutrophils (%) (Auto) 93H, Lymphocytes (%) (Auto) 4L, Monocytes (%) (Auto) 2, Eosinophils (%) (Auto) 0, Basophils (%) (Auto) 0, Neutrophils # (Auto) 11.0H, Lymphocytes # (Auto) 0.5L, Monocytes # (Auto) 0.3, Eosinophils # (Auto) 0.0, Basophils # (Auto) 0.0, Immature Granulocyte # (Auto) 0.1, Sodium Level 137, Potassium Level 4.6, Chloride Level 104, Carbon Dioxide Level 23, Anion Gap 10, Blood Urea Nitrogen 33H, Creatinine 1.01, Estimat Glomerular Filtration Rate 62, BUN/Creatinine Ratio 33, Glucose Level 288H, Calcium Level 9.3, Corrected Carlos cium 9.6, Total Bilirubin 0.2, Aspartate Amino Transf (AST/SGOT) 12, Alanine Aminotransferase (ALT/SGPT) 20, Alkaline Phosphatase 100, Total Protein 6.1L, Albumin 3.6 Assessment/Plan Assessment/Plan Assess & Plan/Chief Complaint Assessment: Acute hypoxic respiratory failure Acute COPD exacerbation HTN Myasthenia Gravis RA DM Hx PE h/o long COVID RALPH on CPAP Plan: Home meds Hypersal nebs IV steroids Clinical Quality Measures Admission Status Admission Dx FABIENNE ZAMORA DO Feb 13, 2023 06:23
[2023-02-13] MEDS: VENlafaxine XR 75 MG (EFFEXOR XR) CAP PO SCH (08:04)
[2023-02-13] MEDS: TRIAMTERENE/HCTZ 75-50 (MAXZIDE,DYAZIDE) TABLET PO SCH (08:04)
[2023-02-13] MEDS: eZETimibe 10 MG (ZETIA) TABLET PO SCH (08:04)
[2023-02-13] MEDS: KCL 20 MEQ TAB (K-DUR) PO SCH ×2 (08:04→16:54)
[2023-02-13] MEDS: LORATADINE (CLARITIN) 10 MG TAB PO SCH ×2 (08:05→20:25)
[2023-02-13] MEDS: PANTOPRAZOLE 40 MG (PROTONIX) TAB PO SCH (08:05)
[2023-02-13] MEDS: APIXABAN 5 MG (ELIQUIS) TABLET PO SCH ×2 (08:05→20:25)
[2023-02-13] MEDS: DOCUSATE SODIUM 100 MG (COLACE) CAP PO SCH ×2 (08:05→20:26)
[2023-02-13] MEDS: cloNIDine 0.1 MG (CATAPRES) TAB PO SCH ×2 (08:06→20:25)
[2023-02-13] MEDS: glyBURIDE 2.5 MG (MICRONASE) TAB PO SCH (08:06)
[2023-02-13] MEDS: MONTELUKAST 10 MG (SINGULAIR) TAB PO SCH (08:06)
[2023-02-13] MEDS: SENNOSIDES 8.6 MG (SENOKOT) TAB PO SCH ×2 (08:06→20:26)
[2023-02-13] MEDS: LOSARTAN 50 MG (COZAAR) TAB PO SCH (08:06)
[2023-02-13] MEDS: CALCIUM CARBONATE 600 MG (CALCARB) TAB PO SCH ×2 (08:06→20:27)
[2023-02-13] MEDS: methylPREDNISolone 40 MG/ML (Solu-MEDROL) VIAL IV SCH ×2 (08:08→20:24)
[2023-02-13] MEDS: FLUTICASONE NASAL SPRAY (FLONASE) 16 GM BTL NS SCH ×2 (08:09→20:24)
[2023-02-13] MEDS: NON-FORM (Breztri Aerosphere Inhaler) IH SCH (09:47)
[2023-02-13] MEDS: MELATONIN 10 MG TABLET PO SCH (20:26)
[2023-02-13] MEDS: ACETAMINOPHEN 325 MG TABLET PO PRN (20:29)
[2023-02-14 03:21] VITALS: BP 167/87
[2023-02-14] MEDS: cloNIDine 0.1 MG (CATAPRES) TAB PO PRN (03:31)
[2023-02-14] MEDS: LEVOTHYROXINE 50 MCG (LEVOTHROID) TAB PO SCH (05:33)
[2023-02-14] MEDS: inSUlin ASPART (NovoLOG) 1 UNIT/0.01 ML (CHARGE PER UNIT) SC SCH ×2 (05:34→11:45)
[2023-02-14 05:54] LABS: BASOPHILS % (AUTO) 0 % (0-10); EOSINOPHILS % (AUTO) 0 % (0-10); HEMATOCRIT 34 % (35-52); LYMPHOCYTES # (AUTO) 0.9 10^3/uL (1.0-4.0); LYMPHOCYTES % (AUTO) 8 % (12-44); MEAN CORPUSCULAR HEMOGLOBIN 29 pg (25-34); MEAN CORPUSCULAR HGB CONC 32 g/dL (32-36); MEAN CORPUSCULAR VOLUME 92 fL (80-99); MEAN PLATELET VOLUME 10.3 fL (9.0-12.2); MONOCYTES # (AUTO) 0.5 10^3/uL (0.0-1.0); MONOCYTES % (AUTO) 5 % (0-12); NEUTROPHILS # (AUTO) 8.9 10^3/uL (1.8-7.8); NEUTROPHILS % (AUTO) 85 % (42-75); PLATELET COUNT 269 10^3/uL (130-400); WHITE BLOOD COUNT 10.4 10^3/uL (4.3-11.0)
[2023-02-14 06:13] LABS: ALBUMIN 3.6 GM/DL (3.2-4.5); POTASSIUM 4.6 MMOL/L (3.6-5.0)
[2023-02-14 06:14] LABS: CALCIUM 9.3 MG/DL (8.5-10.1)
[2023-02-14 06:16] LABS: TOTAL PROTEIN 6.2 GM/DL (6.4-8.2)
[2023-02-14 06:17] LABS: BILIRUBIN,TOTAL 0.3 MG/DL (0.1-1.0)
[2023-02-14 06:19] LABS: CREATININE SERUM 1.05 MG/DL (0.60-1.30)
[2023-02-14 07:31] VITALS: BP 139/73
[2023-02-14] MEDS: cloNIDine 0.1 MG (CATAPRES) TAB PO SCH (08:36)
[2023-02-14] MEDS: APIXABAN 5 MG (ELIQUIS) TABLET PO SCH (08:36)
[2023-02-14] MEDS: MONTELUKAST 10 MG (SINGULAIR) TAB PO SCH (08:36)
[2023-02-14] MEDS: PANTOPRAZOLE 40 MG (PROTONIX) TAB PO SCH (08:36)
[2023-02-14] MEDS: eZETimibe 10 MG (ZETIA) TABLET PO SCH (08:36)
[2023-02-14] MEDS: CALCIUM CARBONATE 600 MG (CALCARB) TAB PO SCH (08:36)
[2023-02-14] MEDS: KCL 20 MEQ TAB (K-DUR) PO SCH (08:37)
[2023-02-14] MEDS: LORATADINE (CLARITIN) 10 MG TAB PO SCH (08:37)
[2023-02-14] MEDS: LOSARTAN 50 MG (COZAAR) TAB PO SCH (08:37)
[2023-02-14] MEDS: TRIAMTERENE/HCTZ 75-50 (MAXZIDE,DYAZIDE) TABLET PO SCH (08:37)
[2023-02-14] MEDS: VENlafaxine XR 75 MG (EFFEXOR XR) CAP PO SCH (08:37)
[2023-02-14] MEDS: glyBURIDE 2.5 MG (MICRONASE) TAB PO SCH (08:37)
[2023-02-14] MEDS: methylPREDNISolone 40 MG/ML (Solu-MEDROL) VIAL IV SCH (08:37)
[2023-02-14] MEDS: FLUTICASONE NASAL SPRAY (FLONASE) 16 GM BTL NS SCH (08:38)
[2023-02-14] MEDS: DOCUSATE SODIUM 100 MG (COLACE) CAP PO SCH (09:02)
[2023-02-14] MEDS: SENNOSIDES 8.6 MG (SENOKOT) TAB PO SCH (09:03)
[2023-02-14] MEDS ORDERED: GLBR5T PO (09:37)
[2023-02-14] MEDS ORDERED: PRD20T PO (09:37)
--- NOTE | 2023-02-14 09:42 | Discharge Summary ---
Diagnosis/Chief Complaint Date of Admission Feb 11, 2023 at 11:00 Date of Discharge Discharge Date: Feb 14, 2023 Discharge Diagnosis Assessment: Acute hypoxic respiratory failure Acute COPD exacerbation HTN Myasthenia Gravis RA DM Hx PE h/o long COVID RALPH on CPAP Plan: Home meds Hypersal nebs IV steroids Discharge Summary Discharge Physical Examination Allergies: Coded Allergies: adhesive tape (Verified Allergy, Intermediate, 01/25/23) BLISTERS AND RAW SKIN almond (Verified Allergy, Intermediate, Abdominal Pain, 01/25/23) Pt states having pain when she eat them. amlodipine (Verified Allergy, Unknown, 01/25/23) erythromycin base (Verified Allergy, Unknown, 01/25/23) Vitals & I&Os Vital Signs Date Time Temp Pulse Resp B/P (MAP) Pulse Ox O2 Delivery O2 Flow Rate FiO2 02/14/23 11:47 36.6 65 18 137/71 98 Room Air 3.00 02/13/23 09:55 32 General Appearance: Alert, Oriented X3, Cooperative Respiratory: Clear to Auscultation Cardiovascular: Regular Rate Psych/Mental Status: Mental Status NL Hospital Course Was the Problem List Reviewed?: Yes Lengthy course after admitted for AECOPD with severe wheezing. IV steroids initiated along with insulin for hyperglycemia. Home meds restarted. Nebs ordered. No abx needed. Overall she did well and her port functioned well and was DC in improved condition. Labs (last 24 hrs) Laboratory Tests 02/10/23 11:54: Influenza Type A (RT-PCR) Not Detected, Influenza Type B (RT-PCR) Not Detected, SARS-CoV-2 RNA (RT-PCR) Not Detected 02/10/23 14:54: White Blood Count 7.6, Red Blood Count 3.84, Hemoglobin 11.4L, Hematocrit 37, Mean Corpuscular Volume 95, Mean Corpuscular Hemoglobin 30, Mean Corpuscular Hemoglobin Concent 31L, Red Cell Distribution Width 14.9H, Platelet Count 234, Mean Platelet Volume 10.1, Immature Granulocyte % (Auto) 0, Neutrophils (%) (Auto) 93H, Lymphocytes (%) (Auto) 4L, Monocytes (%) (Auto) 3, Eosinophils (%) (Auto) 0, Basophils (%) (Auto) 0, Neutrophils # (Auto) 7.1, Lymphocytes # (Auto) 0.3L, Monocytes # (Auto) 0.2, Eosinophils # (Auto) 0.0, Basophils # (Auto) 0.0, Immature Granulocyte # (Auto) 0.0, Neutrophils % (Manual) 80, Lymphocytes % (Manual) 8, Monocytes % (Manual) 2, Basophils % (Manual) 1, Metamyelocytes % 2, Band Neutrophils 7, Platelet Estimate NORMAL, Blood Morphology Comment NORMAL, Sodium Level 138, Potassium Level 4.3, Chloride Level 103, Carbon Dioxide Level 25, Anion Gap 10, Blood Urea Nitrogen 22H, Creatinine 0.89, Estimat Glomerular Filtration Rate 72, BUN/Creatinine Ratio 25, Glucose Level 212H, Calcium Level 9.9, Corrected Calcium 10.0, Total Bilirubin 0.5, Aspartate Amino Transf (AST/SGOT) 19, Alanine Aminotransferase (ALT/SGPT) 24, Alkaline Phosphatase 127, Troponin I < 0.028, Total Protein 7.0, Albumin 3.9 02/10/23 15:54: Glucometer 230H 02/10/23 21:06: Glucometer 329H 02/11/23 05:25: White Blood Count 9.0, Red Blood Count 3.92, Hemoglobin 11.5, Hematocrit 37, Mean Corpuscular Volume 94, Mean Corpuscular Hemoglobin 29, Mean Corpuscular Hemoglobin Concent 31L, Red Cell Distribution Width 14.7H, Platelet Count 248, Mean Platelet Volume 10.3, Immature Granulocyte % (Auto) 1, Neutrophils (%) (Auto) 94H, Lymphocytes (%) (Auto) 4L, Monocytes (%) (Auto) 1, Eosinophils (%) (Auto) 0, Basophils (%) (Auto) 0, Neutrophils # (Auto) 8.4H, Lymphocytes # (Auto) 0.4L, Monocytes # (Auto) 0.1, Eosinophils # (Auto) 0.0, Basophils # (Auto) 0.0, Immature Granulocyte # (Auto) 0.1, Sodium Level 139, Potassium Level 4.0, Chloride Level 103, Carbon Dioxide Level 22, Anion Gap 14, Blood Urea Nitrogen 23H, Creatinine 0.95, Estimat Glomerular Filtration Rate 67, BUN/Creatinine Ratio 24, Glucose Level 261H, Glucometer 246H, Calcium Level 9.6, Corrected Calcium 9.8, Total Bilirubin 0.4, Aspartate Amino Transf (AST/SGOT) 20 , Alanine Aminotransferase (ALT/SGPT) 24, Alkaline Phosphatase 125, Total Protein 6.8, Albumin 3.7 02/11/23 10:44: Glucometer 298H 02/11/23 15:26: Glucometer 331H 02/11/23 20:13: Glucometer 306H 02/12/23 05:19: Glucometer 272H 02/12/23 06:19: White Blood Count 13.7H, Red Blood Count 3.56L, Hemoglobin 10.7L, Hematocrit 33L , Mean Corpuscular Volume 93, Mean Corpuscular Hemoglobin 30, Mean Corpuscular Hemoglobin Concent 32, Red Cell Distribution Width 15.6H, Platelet Count 254, Mean Platelet Volume 10.3, Immature Granulocyte % (Auto) 1, Neutrophils (%) (Auto) 94H, Lymphocytes (%) (Auto) 4L, Monocytes (%) (Auto) 2, Eosinophils (%) (Auto) 0, Basophils (%) (Auto) 0, Neutrophils # (Auto) 12.8H, Lymphocytes # (Auto) 0.5L, Monocytes # (Auto) 0.3, Eosinophils # (Auto) 0.0, Basophils # (Auto) 0.0, Immature Granulocyte # (Auto) 0.1, Sodium Level 138, Potassium Level 4.3, Chloride Level 104, Carbon Dioxide Level 24, Anion Gap 10, Blood Urea Nitrogen 28H, Creatinine 0.99, Estimat Glomerular Filtration Rate 64, BUN/Creatinine Ratio 28, Glucose Level 281H, Calcium Level 9.5, Corrected Calcium 9.8, Total Bilirubin 0.2, Aspartate Amino Transf (AST/SGOT) 14, Alanine Aminotransferase (ALT/SGPT) 22, Alkaline Phosphatase 107, Total Protein 6.4, Albumin 3.6 02/12/23 10:25: Glucometer 287H 02/12/23 15:46: Glucometer 319H 02/12/23 19:56: Glucometer 273H 02/13/23 04:57: Glucometer 284H 02/13/23 05:06: White Blood Count 11.9H, Red Blood Count 3.54L, Hemoglobin 10.5L, Hematocrit 33L , Mean Corpuscular Volume 94, Mean Corpuscular Hemoglobin 30, Mean Corpuscular Hemoglobin Concent 32, Red Cell Distribution Width 15.9H, Platelet Count 250, Mean Platelet Volume 10.3, Immature Granulocyte % (Auto) 1, Neutrophils (%) (Aut o) 93H, Lymphocytes (%) (Auto) 4L, Monocytes (%) (Auto) 2, Eosinophils (%) (Auto) 0, Basophils (%) (Auto) 0, Neutrophils # (Auto) 11.0H, Lymphocytes # (Auto) 0.5L, Monocytes # (Auto) 0.3, Eosinophils # (Auto) 0.0, Basophils # (Auto) 0.0, Immature Granulocyte # (Auto) 0.1, Sodium Level 137, Potassium Level 4.6, Chloride Level 104, Carbon Dioxide Level 23, Anion Gap 10, Blood Urea Nitrogen 33H, Creatinine 1.01, Estimat Glomerular Filtration Rate 62, BUN/Creatinine Ratio 33, Glucose Level 288H, Calcium Level 9.3, Corrected Calcium 9.6, Total Bilirubin 0.2, Aspartate Amino Transf (AST/SGOT) 12, Alanine Aminotransferase (ALT/SGPT) 20, Alkaline Phosphatase 100, Total Protein 6.1L, Albumin 3.6 02/13/23 11:02: Glucometer 237H 02/13/23 15:46: Glucometer 269H 02/13/23 20:05: Glucometer 326H 02/14/23 05:22: Glucometer 263H 02/14/23 05:40: White Blood Count 10.4, Red Blood Count 3.74L, Hemoglobin 11.0L, Hematocrit 34L, Mean Corpuscular Volume 92, Mean Corpuscular Hemoglobin 29, Mean Corpuscular Hemoglobin Concent 32, Red Cell Distribution Width 15.9H, Platelet Count 269, Mean Platelet Volume 10.3, Immature Granulocyte % (Auto) 2, Neutrophils (%) (Auto) 85H, Lymphocytes (%) (Auto) 8L, Monocytes (%) (Auto) 5, Eosinophils (%) (Auto) 0, Basophils (%) (Auto) 0, Neutrophils # (Auto) 8.9H, Lymphocytes # (Auto) 0.9L, Monocytes # (Auto) 0.5, Eosinophils # (Auto) 0.0, Basophils # (Auto) 0.0, Immature Granulocyte # (Auto) 0.2H, Sodium Level 136, Potassium Level 4.6, Chloride Level 102, Carbon Dioxide Level 25, Anion Gap 9, Blood Urea Nitrogen 31H, Creatinine 1.05, Estimat Glomerular Filtration Rate 59, BUN/Creatinine Ratio 30, Glucose Level 259H, Calcium Level 9.3, Corrected Calcium 9.6, Total Bilirubin 0.3, Aspartate Amino Transf (AST/SGOT) 12, Alanine Aminotransferase (ALT/SGPT) 22, Alkaline Phosphatase 102, Total Protein 6.2L, Albumin 3.6 Pending Labs Laboratory Tests 02/10/23 11:54: Influenza Type A (RT-PCR) Not Detected, Influenza Type B (RT-PCR) Not Detected, SARS-CoV-2 RNA (RT-PCR) Not Detected 02/10/23 14:54: White Blood Count 7.6, Red Blood Count 3.84, Hemoglobin 11.4, Hematocrit 37, Mean Corpuscular Volume 95, Mean Corpuscular Hemoglobin 30, Mean Corpuscular Hemoglobin Concent 31, Red Cell Distribution Width 14.9, Platelet Count 234, Mean Platelet Volume 10.1, Immature Granulocyte % (Auto) 0, Neutrophils (%) (Auto) 93, Lymphocytes (%) (Auto) 4, Monocytes (%) (Auto) 3, Eosinophils (%) (Auto) 0, Basophils (%) (Auto) 0, Neutrophils # (Auto) 7.1, Lymphocytes # (Auto) 0.3, Monocytes # (Auto) 0.2, Eosinophils # (Auto) 0.0, Basophils # (Auto) 0.0, Immature Granulocyte # (Auto) 0.0, Neutrophils % (Manual) 80, Lymphocytes % (Manual) 8, Monocytes % (Manual) 2, Basophils % (Manual) 1, Metamyelocytes % 2, Band Neutrophils 7, Platelet Estimate NORMAL, Blood Morphology Comment NORMAL, Sodium Level 138, Potassium Level 4.3, Chloride Level 103, Carbon Dioxide Level 25, Anion Gap 10, Blood Urea Nitrogen 22, Creatinine 0.89, Estimat Glomerular Filtration Rate 72, BUN/Creatinine Ratio 25, Glucose Level 212, Calcium Level 9.9, Corrected Calcium 10.0, Total Bilirubin 0.5, Aspartate Amino Transf (A ST/SGOT) 19, Alanine Aminotransferase (ALT/SGPT) 24, Alkaline Phosphatase 127, Troponin I < 0.028, Total Protein 7.0, Albumin 3.9 02/10/23 15:54: Glucometer 230 02/10/23 21:06: Glucometer 329 02/11/23 05:25: White Blood Count 9.0, Red Blood Count 3.92, Hemoglobin 11.5, Hematocrit 37, Mean Corpuscular Volume 94, Mean Corpuscular Hemoglobin 29, Mean Corpuscular Hemoglobin Concent 31, Red Cell Distribution Width 14.7, Platelet Count 248, Mean Platelet Volume 10.3, Immature Granulocyte % (Auto) 1, Neutrophils (%) (Auto) 94, Lymphocytes (%) (Auto) 4, Monocytes (%) (Auto) 1, Eosinophils (%) (Auto) 0, Basophils (%) (Auto) 0, Neutrophils # (Auto) 8.4, Lymphocytes # (Auto) 0.4, Monocytes # (Auto) 0.1, Eosinophils # (Auto) 0.0, Basophils # (Auto) 0.0, Immature Granulocyte # (Auto) 0.1, Sodium Level 139, Potassium Level 4.0, Chloride Level 103, Carbon Dioxide Level 22, Anion Gap 14, Blood Urea Nitrogen 23, Creatinine 0.95, Estimat Glomerular Filtration Rate 67, BUN/Creatinine Ratio 24, Glucose Level 261, Glucometer 246, Calcium Level 9.6, Corrected Calcium 9.8, Total Bilirubin 0.4, Aspartate Amino Transf (AST/SGOT) 20, Alanine Aminotransferase (ALT/SGPT) 24, Alkaline Phosphatase 125, Total Protein 6.8, Albumin 3.7 02/11/23 10:44: Glucometer 298 02/11/23 15:26: Glucometer 331 02/11/23 20:13: Glucometer 306 02/12/23 05:19: Glucometer 272 02/12/23 06:19: White Blood Count 13.7, Red Blood Count 3.56, Hemoglobin 10.7, Hematocrit 33, Mean Corpuscular Volume 93, Mean Corpuscular Hemoglobin 30, Mean Corpuscular Hemoglobin Concent 32, Red Cell Distribution Width 15.6, Platelet Count 254, Mean Platelet Volume 10.3, Immature Granulocyte % (Auto) 1, Neutrophils (%) (Auto) 94, Lymphocytes (%) (Auto) 4, Monocytes (%) (Auto) 2, Eosinophils (%) (Auto) 0, Basophils (%) (Auto) 0, Neutrophils # (Auto) 12.8, Lymphocytes # (Auto) 0.5, Monocytes # (Auto) 0.3, Eosinophils # (Auto) 0.0, Basophils # (Auto) 0.0, Immature Granulocyte # (Auto) 0.1, Sodium Level 138, Potassium Level 4.3, Chloride Level 104, Carbon Dioxide Level 24, Anion Gap 10, Blood Urea Nitrogen 28, Creatinine 0.99, Estimat Glomerular Filtration Rate 64, BUN/Creatinine Ratio 28, Glucose Level 281, Calcium Level 9.5, Corrected Calcium 9.8, Total Bilirubin 0.2, Aspartate Amino Transf (AST/SGOT) 14, Alanine Aminotransferase (ALT/SGPT) 22, Alkaline Phosphatase 107, Total Protein 6.4, Albumin 3.6 02/12/23 10:25: Glucometer 287 02/12/23 15:46: Glucometer 319 02/12/23 19:56: Glucometer 273 02/13/23 04:57: Glucometer 284 02/13/23 05:06: White Blood Count 11.9, Red Blood Count 3.54, Hemoglobin 10.5, Hematocrit 33, Mean Corpuscular Volume 94, Mean Corpuscular Hemoglobin 30, Mean Corpuscular Hemoglobin Concent 32, Red Cell Distribution Width 15.9, Platelet Count 250, Mean Platelet Volume 10.3, Immature Granulocyte % (Auto) 1, Neutrophils (%) (Aut o) 93, Lymphocytes (%) (Auto) 4, Monocytes (%) (Auto) 2, Eosinophils (%) (Auto) 0, Basophils (%) (Auto) 0, Neutrophils # (Auto) 11.0, Lymphocytes # (Auto) 0.5, Monocytes # (Auto) 0.3, Eosinophils # (Auto) 0.0, Basophils # (Auto) 0.0, Immature Granulocyte # (Auto) 0.1, Sodium Level 137, Potassium Level 4.6, Chloride Level 104, Carbon Dioxide Level 23, Anion Gap 10, Blood Urea Nitrogen 33, Creatinine 1.01, Estimat Glomerular Filtration Rate 62, BUN/Creatinine Ratio 33, Glucose Level 288, Calcium Level 9.3, Corrected Calcium 9.6, Total Bilirubin 0.2, Aspartate Amino Transf (AST/SGOT) 12, Alanine Aminotransferase (ALT/SGPT) 20, Alkaline Phosphatase 100, Total Protein 6.1, Albumin 3.6 02/13/23 11:02: Glucometer 237 02/13/23 15:46: Glucometer 269 02/13/23 20:05: Glucometer 326 02/14/23 05:22: Glucometer 263 02/14/23 05:40: White Blood Count 10.4, Red Blood Count 3.74, Hemoglobin 11.0, Hematocrit 34, Mean Corpuscular Volume 92, Mean Corpuscular Hemoglobin 29, Mean Corpuscular Hemoglobin Concent 32, Red Cell Distribution Width 15.9, Platelet Count 269, Mean Platelet Volume 10.3, Immature Granulocyte % (Auto) 2, Neutrophils (%) (Auto) 85, Lymphocytes (%) (Auto) 8, Monocytes (%) (Auto) 5, Eosinophils (%) (Auto) 0, Basophils (%) (Auto) 0, Neutrophils # (Auto) 8.9, Lymphocytes # (Auto) 0.9, Monocytes # (Auto) 0.5, Eosinophils # (Auto) 0.0, Basophils # (Auto) 0.0, Immature Granulocyte # (Auto) 0.2, Sodium Level 136, Potassium Level 4.6, Chloride Level 102, Carbon Dioxide Level 25, Anion Gap 9, Blood Urea Nitrogen 31, Creatinine 1.05, Estimat Glomerular Filtration Rate 59, BUN/Creatinine Ratio 30, Glucose Level 259, Calcium Level 9.3, Corrected Calcium 9.6, Total Bilirubin 0.3, Aspartate Amino Transf (AST/SGOT) 12, Alanine Aminotransferase (ALT/SGPT) 22, Alkaline Phosphatase 102, Total Protein 6.2, Albumin 3.6 Discharge Home Medications: Active Scripts Active Prednisone 20 Mg Tab 20 Mg PO DAILY Take 3 tabs(60mg)daily, decrease by 1/2 tab(10mg)daily. Glyburide 5 Mg Tablet 5 Mg PO BID Reported Nac (Acetylcysteine) 600 Mg Capsule 600 Mg PO DAILY Vitamin D3 (Cholecalciferol (Vitamin D3)) 25 Mcg (1000 Unit) Tablet 25 Mcg PO DAILY Ezetimibe 10 Mg Tablet 10 Mg PO DAILY Clonidine HCl 0.1 Mg Tablet 0.1 Mg PO BID Budesonide 0.5 Mg/2 Ml Ampul.neb 0.5 Mg IH BID PRN Breztri Aerosphere Inhaler (Budesonide/Glycopyr/Formoterol) 160 Mcg-9 Mcg-4.8 Mcg/Actuation Hfa.aer.ad 2 Puff IH DAILY Ventolin Hfa (Albuterol Sulfate) 90 Mcg Hfa.aer.ad 2 Puff IH Q4H PRN Iprat-Albut 0.5-3(2.5) mg/3 ml (Ipratropium/Albuterol Sulfate) 0.5 Mg-3 Mg (2.5 Mg Base)/3 Ml Ampul.neb 3 Ml NEB Q4H PRN Azithromycin 250 Mg Tablet 250 Mg PO DAILY Calcium Carbonate 600 Mg Calcium (1500 Mg) Tablet 600 Mg PO BID Fluticasone Propionate 50 Mcg/Actuation [place].susp 1 [place] NSEACH BID Alprazolam 0.5 Mg Tablet 0.5 Mg PO Q8H PRN Imuran (Azathioprine) 50 Mg Tablet 100 Mg PO BID TAKES 2 (50MG) TABS Venlafaxine HCl ER (Venlafaxine HCl) 75 Mg Cap.er.24h 75 Mg PO DAILY Melatonin 10 Mg Tablet 20 Mg PO HS TAKES 2 (10MG) TABS Eliquis (Apixaban) 5 Mg Tablet 5 Mg PO BID Potassium Chloride 20 Meq Tablet.er 20 Meq PO BID Furosemide 40 Mg Tablet 40 Mg PO DAILY PRN All Day Allergy (Cetirizine HCl) 10 Mg Tablet 10 Mg PO BID Losartan Potassium 50 Mg Tablet 50 Mg PO DAILY Citalopram HBr (Citalopram Hydrobromide) 20 Mg Tablet 20 Mg PO DAILY Pantoprazole Sodium 40 Mg Tablet.dr 40 Mg PO DAILY Atorvastatin Calcium 20 Mg Tablet 20 Mg PO DAILY Triamterene-Hctz 37.5-25 mg Cp (Triamterene/Hydrochlorothiazid) 1 Each Capsule 1 Cap PO DAILY Montelukast Sodium 10 Mg Tablet 10 Mg PO DAILY Levothyroxine Sodium 50 Mcg Tablet 50 Mcg PO DAILY Instructions to patient/family Please see electronic discharge instructions given to patient. FABIENNE ZAMORA DO Feb 14, 2023 09:42
[2023-02-14] MEDS: NON-FORM (Breztri Aerosphere Inhaler) IH SCH (10:15)
[2023-02-14] MEDS: RT-ALBUTEROL SULF 2.5 MG/3 ML PRE-MIX VIAL IH SCH (10:16)
[2023-02-14] MEDS: RT-HYPERTONIC SALINE 3% 4 ML NEB INH SCH (10:16)
[2023-02-14] MEDS: RT-IPRATROPIUM (ATROVENT) 0.5MG/2.5ML AMP IH SCH (10:16)
[2023-02-14 11:46] VITALS: BP 137/71
[2023-02-14 11:47] VITALS: BP 137/71
[2023-02-14] MEDS ORDERED: AZATHIOPRINE 100 MG PO SCH (12:00)
== END 2023-02-14 11:47 | disposition home or self-care (01) ==
LOC: EDUNIT# 11:36 → ER 11:37 → 4TH 14:22 → UNDOADMOB 14:22 → INTOOBSV 02-11 11:00 → OBSVTOIN 02-11 11:00 → UNDODISOB 02-14 11:47
PROVIDERS: ADMIT Internal Medicine; ATTEND Internal Medicine
DX: J96.01 Acute respiratory failure with hypoxia (principal); J44.1 Chronic obstructive pulmonary disease with (acute) exacerbation; I10 Essential (primary) hypertension; G70.00 Myasthenia gravis without (acute) exacerbation; M10.9 Gout, unspecified; E11.9 Type 2 diabetes mellitus without complications; M06.9 Rheumatoid arthritis, unspecified; G47.33 Obstructive sleep apnea (adult) (pediatric); Z99.81 Dependence on supplemental oxygen; Z86.711 Personal history of pulmonary embolism; Z79.899 Other long term (current) drug therapy; Z79.84 Long term (current) use of oral hypoglycemic drugs; Z86.16 Personal history of COVID-19
CPT/HCPCS: 71045; 80053 ×5; 82947 ×5; 84484; 85007; 85025 ×4; 85027; 87636; 93005; 94640 ×8; 94760 ×4; 96372 ×5; 96375; 96376 ×5; 99283; G0378; 36415

== ENCOUNTER 2023-03-10 13:35 | Inpatient (IN) | payer BC ==
[~2023-03-10] VITALS: Ht 167.6 cm; Wt 177.0 kg
[~2023-03-10 13:35] MED LIST changes: +ACET600C PO; +CHOL-34 PO; +GLBR5T PO
[2023-03-10 15:45] VITALS: BP 150/108
[2023-03-10 16:00] VITALS: BP 181/78
--- OUTSIDE RECORDS SUMMARY | 2023-03-10 16:17 | XMS REPORT | Clinical Summary ---
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 If you d o not see the information that you expected, contact Release of Information in [facility] [employer] Information Management department at [phone] for further assistan ce in locating additional records.[facility] Allergies Comments Active Allergy Reactions Severity Noted Date Adhesive Tape (Rosins) RASH, High 020 BLISTERS Erythromycin RASH Medium 08/01/2020 CAUSES HYPERTENSION Amlodipine HEADACHE High 08/01/2020 Medications End Date Status Medication Sig Dispensed Refills Start Date Active albuterol sulfate (PROAIR Inhale 1-2 0 HFA) 90 mcg/actuation HFA puffs by aerosol inhaler mouth into the lungs every 4 hours as needed for Wheezing or Shortness of Breath. Shake well before use. Active atorvastatin (LIPITOR) 20 Take 20 mg by 0 mg tablet mouth daily. Active cloNIDine (CATAPRESS) 0.1 Take 0.1 mg 0 mg tablet by mouth three times daily. Active fluticasone propionate Apply 1 spray 0 (FLONASE) 50 to each mcg/actuation nasal nostril as spray, suspension directed daily. Shake bottle gently before using. Active levothyroxine (SYNTHROID) Take 50 mcg 0 50 mcg tablet by mouth daily 30 minutes before breakfast. Active glucosamine 500 mg tab Take 1,000 mg 0 by mouth daily with breakfast. Active cholecalciferol (VITAMIN Take 1,000 0 D-3) 1,000 units tablet Units by mouth daily. Active triamterene-hydrochloroth Take 1 0 iazide (DYAZIDE) 37.5-25 capsule by mg capsule mouth every morning. Active calcium carbonate/vitamin Take one 180 tablet 0 D-3 (OSCAL-500+D) 1250 tablet by 0 mg/200 unit tablet mouth twice daily. Calcium Carb 1250mg delivers 500mg elemental Ca Active apixaban (ELIQUIS) 5 mg Take 5 mg by 0 tablet mouth twice daily. Active azaTHIOprine (IMURAN) 50 Take 50 mg by 0 mg tablet mouth twice daily. Active pantoprazole DR TAKE ONE 30 tablet 0 (PROTONIX) 40 mg tablet TABLET BY 1 MOUTH DAILY Active fluticasone Inhale 1 puff 0 furoate-vilanterol(+) by mouth into (BREO ELLIPTA) 200-25 mcg the lungs inhalation disk daily. Active cetirizine (ZYRTEC) 10 mg Take 10 mg by 0 tablet mouth twice daily. Active venlafaxine XR (EFFEXOR Take 75 mg by 0 XR) 75 mg capsule mouth daily. Take with food. Active ezetimibe (ZETIA) 10 mg Take 10 mg by 0 tablet mouth daily. Active furosemide (LASIX) 40 mg Take 40 mg by 0 tablet mouth every 48 hours as needed. Active montelukast (SINGULAIR) Take 10 mg by 0 10 mg tablet mouth at bedtime daily. Active potassium chloride SR Take 1 tablet 0 (K-DUR) 20 mEq tablet by mouth twice daily. Take with a meal and a full glass of water. Active losartan (COZAAR) 50 mg Take 50 mg by 0 tablet mouth daily. Active ALPRAZolam (XANAX) 0.5 mg Take 0.5 mg 0 tablet by mouth daily as needed for Anxiety. Active glyBURIDE (DIABETA) 1.25 Take 1.25 mg 0 mg tablet by mouth twice daily with meals. Take with food. Active tiotropium bromide Inhale 2 0 (SPIRIVA RESPIMAT) 1.25 puffs by mcg/actuation inhaler mouth into the lungs twice daily. Active melatonin (MELATIN) 5 mg Take 10 mg by 0 tablet mouth at bedtime daily. Active citalopram (CELEXA) 20 mg Take one 90 tablet 0 tablet tablet by 1 mouth daily. Active predniSONE (DELTASONE) 5 Take two 60 tablet 5 0 mg tabletIndications: tablets by 2 Myasthenia gravis (HCC) mouth daily with breakfast. 5 mg daily Active azithromycin (ZITHROMAX) Take 250 mg 0 04/11 250 mg tablet by mouth 2 daily. Active budesonide-formoterol HFA Inhale by 0 02/12 (SYMBICORT) 160-4.5 mouth into 3 mcg/actuation aerosol the lungs. inhaler Active acetylcysteine 600 mg daily. 0 (W-JTODIH-C-CYSTEINE MISC) Active Problems Problem Noted Date Myasthenia gravis 08/15/2021 Diplopia 08/01/2020 MG with exacerbation (myasthenia gravis) 08/01/2020 Slurred speech 08/01/2020 Hypertension Morbid obesity Rheumatoid arthritis Hypothyroidism COVID-19 ruled out by laboratory testin g Hypoxemia Immunizations Name Administration Dates Next Due Flu Vaccine =>6 Months 08/22/2021 Quadrivalent PF Medical History Medical History Date Comments Arthritis Asthma Hypertension Pre-diabetes Rheumatoid arthritis (HCC) Morbid obesity (HCC) Dyslipidemia Hypothyroidism Covid-19 09/29/2020 Myasthenia gravis (HCC) 08/01/2020 Social History Date Tobacco Use Types Packs/Day Years Used Smoking Tobacco: Never Smokeless Tobacco: Never Tobacco Cessation: Counseling Given: Not Answered Comments Alcohol Use Standard Drinks/Week last ETOH was at her brother[facility] 2 ye ars ag Not Currently 0 (1 standard drink = 0.6 o z pure alcohol) Sex Assigned at Date Recorded Female 08/05/2020 9:47 AM CDT Obstetrics History Last Filed Vital Signs Reading Time Taken Comments Vital Sign 185/79 10/19/2022 2:31 PM [employer]NAGER [facility]CH Blood Pressure 90 10/19/2022 2:31 PM [employer] Pulse 36.8 C (98.2 F) 09/22/2021 12:59 PM [employer] Temperature 22 10/19/2022 2:31 PM [employer]NA[facility] Respiratory Rate 95% 10/19/2022 2:31 PM MANAGER BR[employer]CH 3L Oxygen Saturation - - Inhaled Oxygen Concentration 106.6 kg (235 lb) 10/19/2022 2:31 PM [employer]NA[facility] Weight 165.1 cm (5' 5") 10/19/2022 2:31 PM [employer]NA[facility] Height 39.11 10/19/2022 2:31 PM MANAGER [facility]CH Body Mass Index Plan of Treatment Health Maintenance Due Date Last Done Comments HIV SCREENING 1973 HEPATITIS C SCREENING 02/15/1976 PHYSICAL (COMPREHENSIVE) 02/15/1976 EXAM SHINGLES RECOMBINANT 1977 VACCINE (1 of 2) BREAST CANCER SCREENING 1998 COLORECTAL CANCER 2003 SCREENING COVID-19 VACCINE (4 - 11/30/2021 10/05/2021, Booster for Moderna 02/18/2021, series) 01/21/2021 DEPRESSION SCREENING 11/14/2022 10/19/2022 OSTEOPOROSIS 2023 SCREENING/MONITORING PNEUMOCOCCAL VACCINE 65+ 2023 YRS (1 - PCV) INFLUENZA VACCINE (Season 08/14/2023 08/22/2021, Ended) 08/11/2020, 09/07/2018 DTAP/TDAP VACCINES (4 - 06/13/2028 06/13/2018, Td or Tdap) 05/16/2018, 09/28/2012 Goals Goal Patient Associated Recent Progress Patient-Stat Aut hor Goal Type Problems ed? Recover from illness Hospital Yes Amairani Borrero, RN Note: To be able to get stronger and get back to work Resume work Hospital On track (08/17/2021 No Neeru ventura, 3:27 PM CDT) ALFREDO Britton Note: Be at [facility] Tuesday and work on tuesday Medical Devices Device Identifier Shelf Expiration Date Model / Serial / L ot Implanted Type Area Manufactur er [id number] 11/27/2024 [id number] / NA / [id number] Kit Catheter 20cm 13.5fr Maria Luz Right: Neck COV [employer] Elite Straight Extension - Sna LTD Implanted: Qty: 1 on 08/02/2020 by Aguilar Johnson MD at [facility] [id number] 12/26/2025 [id number] / N/A / [id number] Kit Catheter 16cm 13.5fr Maria Luz Right: Neck COV [employer] Elite Straight Extension - Sn/A LTD Implanted: Qty: 1 on 08/15/2021 by Marc Almanza MD at [facility] Results Not on filefrom Last 3 Months Insurance Type Payer Benefit Subscriber ID Effective Phone Address Plan / Dates Group PPO BCBS [facility] [id number] 2019- [phone] [id number] [facility] Present [place] [phone] Advance Directives Patient Licensed Acupuncturist Explanation Type Date Recorded Advance 08/17/2021 Directive/DPOA Advance 08/17/2021 Directive/DPOA Date Inactivated Comments Code Status Date Activated 08/22/2021 3:50 PM Full Code 08/15/2021 12:23 AM Comments Question Answer Provider has Yes discussed Code Status w/Patient or Family? Date Inactivated Comments Code Status Date Activated 08/10/2020 3:39 PM Full Code 08/01/2020 5:25 PM Comments Question Answer Provider has Yes discussed Code Status w/Patient or Family? 08/01/2020 5:24 PM Full Code 08/01/2020 5:14 PM Comments Question Answer Provider has No, more discussion needed discussed Code Status w/Patient or Family? 08/01/2020 5:14 PM Full Code 08/01/2020 4:03 PM Comments Question Answer Provider has Yes discussed Code Status w/Patient or Family? 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
--- OUTSIDE RECORDS SUMMARY | 2023-03-10 16:17 | XMS REPORT ---
Author Author [facility] Address Unknown Phone Unavailable Care Team Providers Care Surgical Product Sales Consultant Name Role Phone TRICIA ASHLEY Unavailable PROBLEMS Type Condition ICD9-CM Code [id number] Code Onset Dates Condition S tatus W/U Status Risk SNOMED Code Notes Problem Chronic obstructive pulmonary disease with (acute) exa cerbation J44.1 confirmed 999629032 Problem Myasthenia gravis without (acute) exacerbation G70.00 confirmed 04154660756365 Problem Obstructive sleep apnea of adult G47.33 0537047228836 sleep apnea Problem Morbid exogenous obesity E66.01 confirmed 321429937 Problem Rheumatoid arthritis involvi ng ankle, unspecified laterality, unspecified rheumatoid factor presence M06.9 confirmed [id number] ALLERGIES Allergen (clinical drug ingredient) Drug/Non Drug Allergy do cumented on EMR Reaction Allergy Type Onset Date Status amlodipine Norvasc(NDC Code:[address]-34) Unknown Drug Allergy Active erythromycin Erythromycin Base(NDC Code:[address]-53) Unknown Jaron g Allergy Active ENCOUNTERS from 1960 to 2023-01-24 Encounter Location Date Provider Diagnosis [facility] [address] [facility] [id number] [place] [address] Feb, ASHLEY CLARKE Encounter for immuni zation Z23 IMMUNIZATIONS Vaccine Route Administration Date Status 2nd Dose HRSA MODERNA, COVID-19, 0.5mL IM Intramuscular February Administered 1st Dose HRSA MODERNA, COVID-19, 0.5mL IM Intramuscular January Administered PRIVATE FLULAVAL QUAD 0.5ML (6 MO AND UP) 2018 IM Intramuscular Aug 28, 2019 Administered FLUARIX QUAD P-FREE 3 AND UP .50 2015 IM Intramuscular Aug 13, 2016 Administered FLUARIX QUAD (3 & UP)-GSK-2015 IM Intramuscular Aug 20, 2015 Administered influenza IIV3 (history) Unknown Aug 23, 2014 Pending 1st Booster MODERNA Bivalent, COVID-19, 0.5mL IM Intramuscular J 2022 Administered influenza IIV3 (history) Unknown Aug 31, 2013 Pending influenza IIV3 (history) Unknown Sep 28, 2012 Pending PRIVATE TDAP (ADACEL) Unknown Sep 28, 2012 Pending SOCIAL HISTORY Sex Assigned At : Social History Observation Description Sex Assigned At Unknown PHQ2 Question Answer Notes In the last 2 weeks, how often have you had little interest or pleasure in doing things? Not at all In the last 2 weeks, how often have you been feeling down, depressed, or hopeless? Not at all Total PHQ2 Score 0 REASON FOR REFERRAL No Information VITAL SIGNS No information MEDICATIONS Medication SIG (Take, Route, Frequency, Duration) Notes Start Da te End Date Status Lipitor 40 mg take 1 tablet (40 mg) by oral route once daily [facility] Nov, Active Triamterene 50 MG 1 capsule Orally Once a day Active Singulair Active Vitamin D Active Spiriva HandiHaler Active Potassium Active Ipratropium-Albuterol 0.5 mg-3 mg(2.5 mg base)/3 mL prn Mi -[facility] Nov, Active Flonase 50 mcg/actuation 1 sprays by Nasal route 2 ti mes per day [facility] nost[facility] Nov, Active Ondansetron HCl 4 MG 1 tablet Orally every 8 hours, PRN for 5 da ys Oct, Active ZyrTEC Allergy Active Lisinopril 10 mg take 1 tablet (10 mg) by oral route once daily [facility] Nov, Active predniSONE 5 MG/5ML 5 mL Orally Once a day Active Calcium Active PROCEDURES No Information RESULTS No Results REASON FOR VISIT COVID-19 Vaccine Dose 2 MEDICAL (GENERAL) HISTORY Type Description Date Medical History Rheumtoid arthritis Medical History obesity Surgical History No know Surgical history Hospitalization History Bronchitis 05/05 Goals Section No Information Health Concerns No Information MEDICAL EQUIPMENT No Information MENTAL STATUS No Information FUNCTIONAL STATUS No Information ASSESSMENTS Encounter Date Diagnosis Assessment Notes Treatment Notes Treatm ent Clinical Notes Feb, Encounter for immunization (ICD-10 - Z23 ) PLAN OF TREATMENT Medication Medication Name Sig Start Date Stop Date Ondansetron HCl 4 MG 1 tablet Orally every 8 hours, PRN for 5 da ys Oct, Insurance Providers Payer Name Payer Address Payer Phone Insured Name Patient Relati onship to Insured Coverage Start Date Coverage End Date Subscriber Number [employer] [place] [facility] BCBS [facility] [address] [facility] [phone] Roselia Maldonado Spouse - patient is the spouse of the insured [id number] MEDICATIONS ADMINISTERED Medication Instructions Date of Administration Dosage DEPO MEDROL 80 MG/ML Nov, 120 mg
[2023-03-10] MEDS ORDERED: diphenhydrAMINE 25 MG TAB (BENADRYL) PO PRN ×2 (16:30)
[2023-03-10] MEDS ORDERED: ONDANSETRON 4 MG (ZOFRAN) ORAL DISSOLVE TAB PO PRN ×2 (16:30)
[2023-03-10] MEDS ORDERED: ACETAMINOPHEN 325 MG TABLET PO PRN ×2 (16:30)
[2023-03-10] MEDS ORDERED: MILK OF MAGNESIA 400 MG/5 ML 30 ML UDC PO PRN ×2 (16:30)
[2023-03-10] MEDS ORDERED: ANTACID SUSP 30 ML UDC (MYLANTA) PO PRN ×2 (16:30)
[2023-03-10] MEDS ORDERED: LORazepam INJ 2 MG/ML (ATIVAN) VIAL IVP PRN ×2 (16:30)
[2023-03-10] MEDS ORDERED: diphenhydrAMINE 50 MG/ML INJ (BENADRYL) IVP PRN ×2 (16:30)
[2023-03-10] MEDS ORDERED: cloNIDine 0.1 MG (CATAPRES) TAB PO PRN (16:30)
[2023-03-10] MEDS ORDERED: LORazepam 0.5 MG (ATIVAN) TABLET PO PRN ×2 (16:30)
[2023-03-10] MEDS ORDERED: HYDROmorphone 2 MG/ML VIAL (DILAUDID) IV PRN ×2 (16:30)
[2023-03-10] MEDS ORDERED: ONDANSETRON 4 MG/2 ML (SDV) Z0FRAN IV PRN ×2 (16:30)
[2023-03-10] MEDS ORDERED: MELATONIN 3 MG TABLET PO PRN ×2 (16:30)
[2023-03-10] MEDS ORDERED: BISACODYL 10 MG SUPP (DULCOLAX) PR PRN ×2 (16:30)
[2023-03-10] MEDS ORDERED: polyethylene glycoL POWDER 17 GM (MIRALAX) PACK PO PRN ×2 (16:30)
[2023-03-10] MEDS ORDERED: LACTULOSE SYRUP 10GM/15ML (ENULOSE) 30ML UDC PO PRN ×2 (16:30)
[2023-03-10] MEDS ORDERED: inSUlin (REGULAR) HUMAN 1 UNIT/0.01 ML (CHARGE PER UNIT) SC PRN ×2 (16:30)
[2023-03-10] MEDS ORDERED: CALCIUM CARBONATE 500 MG (TUMS) TAB.CHEW PO PRN ×2 (16:30)
--- NOTE | 2023-03-10 16:47 | History & Physical ---
MAGEN PALMER 03/10/23 8187: History of Present Illness History of Present Illness Reason for visit/HPI Patient is a 62 yo F with PMH of COPD post COVID, CAD, Myasthenia Gravis, HLD, HTN, Hypothyroidism, RA, and DM who presented to her PCP on 03/08 for symptoms similar to previous COPD exacerbations (worsening cough and SOB at rest). At [facility] she is on 3L O2 and uses albuterol and breztri inhalers. She has been having increasing SOB and cough for 3-4 days leading up to her visit with PCP. She was prescribed PO steroids and told to call back in two days if no symptom improvement. This morning she had no improvement in symptoms and was directly admitted to hospital by PCP. She notes having an episode of lightheadedness yesterday but none currently. She denies cp, palpitations, n/v/f/c at this time. Date of Admission Mar 10, 2023 at 15:53 I consulted on this patient on 03/10/23 16:41 Attending Physician Shayla Zamora DO Admitting Physician Admitting Physician: Shayla Zamora DO Attending Physician: Shayla Zamora DO Consult Allergies and Home Medications Allergies Coded Allergies: adhesive tape (Verified Allergy, Intermediate, 01/25/23) BLISTERS AND RAW SKIN almond (Verified Allergy, Intermediate, Abdominal Pain, 01/25/23) Pt states having pain when she eat them. amlodipine (Verified Allergy, Unknown, 01/25/23) erythromycin base (Verified Allergy, Unknown, 01/25/23) Patient Home Medication List Acetylcysteine (Nac) 600 Mg Capsule, 600 MG PO DAILY, (Reported) Entered as Reported by: NITO BREWER on 02/11/23 1059 Albuterol Sulfate (Ventolin Hfa) 90 Mcg Hfa.aer.ad, 2 PUFF IH Q4H PRN for SHORTNESS OF BREATH, (Reported) Entered as Reported by: MANGO DE LA TORRE on 04/26/22 0938 Alprazolam (Alprazolam) 0.5 Mg Tablet, 0.5 MG PO Q8H PRN for ANXIETY, (Reported) Entered as Reported by: NITO BREWER on 10/16/21 1125 Apixaban (Eliquis) 5 Mg Tablet, 5 MG PO BID, (Reported) Entered as Reported by: NITO BREWER on 01/27/21 0947 Atorvastatin Calcium (Atorvastatin Calcium) 20 Mg Tablet, 20 MG PO DAILY, (R eported) Entered as Reported by: NE GARRETT on 03/31/18 0950 Azathioprine (Imuran) 50 Mg Tablet, 100 MG PO BID, (Reported) Entered as Reported by: NITO BREWER on 10/16/21 1125 Azithromycin (Azithromycin) 250 Mg Tablet, 250 MG PO DAILY, (Reported) Entered as Reported by: MANGO DE LA TORRE on 04/26/22 0927 Budesonide (Budesonide) 0.5 Mg/2 Ml Ampul.neb, 0.5 MG IH BID PRN for SHORTNESS OF BREATH, (Reported) Entered as Reported by: NITO BREWER on 12/30/22 1357 Budesonide/Glycopyr/Formoterol (Breztri Aerosphere Inhaler) 160 Mcg-9 Mcg-4.8 Mcg/Actuation Hfa.aer.ad, 2 PUFF IH DAILY, (Reported) Entered as Reported by: MANGO DE LA TORRE on 04/26/22 0955 Calcium Carbonate (Calcium Carbonate) 600 Mg Calcium (1500 Mg) Tablet, 600 MG PO BID, (Reported) Entered as Reported by: NITO BREWER on 10/16/21 1135 Cetirizine HCl (All Day Allergy) 10 Mg Tablet, 10 MG PO BID, (Reported) Entered as Reported by: NITO BREWER on 10/06/20 1532 Cholecalciferol (Vitamin D3) (Vitamin D3) 25 Mcg (1000 Unit) Tablet, 25 MCG PO DAILY, (Reported) Entered as Reported by: NITO BREWER on 02/11/23 1059 Citalopram Hydrobromide (Citalopram HBr) 20 Mg Tablet, 20 MG PO DAILY, (Reported) Entered as Reported by: NITO BREWER on 10/06/20 1530 Clonidine HCl (Clonidine HCl) 0.1 Mg Tablet, 0.1 MG PO BID, (Reported) Entered as Reported by: NITO BREWER on 12/30/22 1357 Ezetimibe (Ezetimibe) 10 Mg Tablet, 10 MG PO DAILY, (Reported) Entered as Reported by: NITO BREWER on 02/11/23 1059 Fluticasone Propionate (Fluticasone Propionate) 50 Mcg/Actuation Ethridge.susp, 1 SPRAY NSEACH BID, (Reported) Entered as Reported by: NITO BREWER on 10/16/21 1125 Furosemide (Furosemide) 40 Mg Tablet, 40 MG PO DAILY PRN for FLUID RETENTION, (Reported) Entered as Reported by: MARIIA ALEJANDRO on 12/25/20 1838 Glyburide (Glyburide) 5 Mg Tablet, 5 MG PO BID Prescribed by: SHAYLA ZAMORA on 02/14/23 0937 Ipratropium/Albuterol Sulfate (Iprat-Albut 0.5-3(2.5) mg/3 ml) 0.5 Mg-3 Mg (2.5 Mg Base)/3 Ml Ampul.neb, 3 ML NEB Q4H PRN for SHORTNESS OF BREATH, (Reported) Entered as Reported by: MANGO DE LA TORRE on 04/26/22 0938 Levothyroxine Sodium (Levothyroxine Sodium) 50 Mcg Tablet, 50 MCG PO DAILY, (Reported) Entered as Reported by: VIVEK ROJAS on 07/31/15 1558 Losartan Potassium (Losartan Potassium) 50 Mg Tablet, 50 MG PO DAILY, (Reported) Entered as Reported by: NITO BREWER on 10/06/20 1530 Melatonin (Melatonin) 10 Mg Tablet, 20 MG PO HS, (Reported) Entered as Reported by: NITO BREWER on 04/29/21 1240 Montelukast Sodium (Montelukast Sodium) 10 Mg Tablet, 10 MG PO DAILY, (Reported) Entered as Reported by: NE GARRETT on 03/31/18 0950 Pantoprazole Sodium (Pantoprazole Sodium) 40 Mg Tablet.dr, 40 MG PO DAILY, (Reported) Entered as Reported by: NITO BREWER on 08/12/20 0919 Potassium Chloride (Potassium Chloride) 20 Meq Tablet.er, 20 MEQ PO BID, (Reported) Entered as Reported by: NITO BREWER on 01/27/21 0947 Prednisone (Prednisone) 20 Mg Tab, 20 MG PO DAILY Prescribed by: SHAYLA ZAMORA on 02/14/23 0937 Triamterene/Hydrochlorothiazid (Triamterene-Hctz 37.5-25 mg Cp) 1 Each Capsule, 1 CAP PO DAILY, (Reported) Entered as Reported by: NE GARRETT on 03/31/18 0987 Venlafaxine HCl (Venlafaxine HCl ER) 75 Mg Cap.er.24h, 75 MG PO DAILY, (Reported) Entered as Reported by: NITO BREWER on 06/05/21 1345 Past Cpjwyxq-Pzknao-Nwwsrs Hx Patient Social History Tobacco Use?: No Smoking Status: Never a Smoker Use of E-Cig and/or Vaping dev: No Substance use?: No Alcohol Use?: No Immunizations Up To Date Date of Influenza Vaccine: Aug 14, 2022 First/Initial COVID19 Vaccinat: 12/04 Second COVID19 Vaccination Yousuf: 01/04 Tetanus Booster (TDap): More Than 5 Years Hepatitis A: No Hepatitis B: No PED Vaccines UTD: Yes Date of Pneumonia Vaccine: Jan 04, 2018 Seasonal Allergies Seasonal Allergies: Yes Current Status Primary Language: Wolof Past Medical History Surgeries: Lumpectomy, Orthopedic Pneumonia, Sleep Apnea, COPD Currently Using CPAP: Yes Currently Using BIPAP: No Coronary Artery Disease, High Cholesterol, Hypertension Neuropathy H[employer] ASSOC[employer]ATE History: Menopausal Sexually Transmitted Disease: No Bladder Infection Gastroesophageal Reflux Arthritis, Rheumatoid Arthritis Hypothyroidsim, Diabetes, Non-Insulin dep Cataract, Tinnitis Loss of Vision: Denies Hearing Impairment: Denies Anxiety Blood Disorders: No Adverse Reaction/Blood Tranf: No Dx Myasthenia Gravis 07/2020 Family Medical History Alcoholism G8 BROTHER G8 SISTER Alzheimer's disease 19 MOTHER Arthritis 19 FATHER Asthma G8 SISTER Cardiovascular disease 19 FATHER Cataracts 19 FATHER Coronary thrombosis 19 FATHER Deafness or hearing loss SON Diabetes mellitus 19 FATHER G8 SISTER G8 SISTER Drug abuse G8 SISTER Hypertension 19 FATHER G8 SISTER G8 SISTER Kidney disease 19 FATHER Respiratory disorder G8 SISTER G8 SISTER Seizure disorder SON Severe allergy SON Heart Disease, Diabetes, Hypertension Review of Systems Constitutional: No chills, No diaphoresis; dizziness; No fever, No malaise; weakness; No weight gain, No weight loss EENTM: No hearing loss, No blurred vision, No double vision, No eye pain, No tearing, No vision loss, No dental problems, No hoarseness, No mouth pain, No mouth swelling, No epistaxis, No nose congestion, No nose pain, No throat pain, No throat swelling, No other Respiratory: cough, dyspnea on exertion; No hemoptysis, No orthopnea, No phlegm; short of breath; No stridor; wheezing; No other Cardiovascular: No chest pain, No palpitations, No syncope Gastrointestinal: no symptoms reported Genitourinary: no symptoms reported Musculoskeletal: no symptoms reported Skin: no symptoms reported Physical Exam Vital Signs Capillary Refill : Height, Weight, BMI Height: 5'6.00" Weight: 297lbs. 0.0oz. [id number]; 63.32 BMI Method:Stated General Appearance: Moderate Distress, Obese Eyes: Bilateral Eye Normal Inspection, Bilateral Eye PERRL, Bilateral Eye EOMI HEENT: PERRL/EOMI, TMs Normal, Normal ENT Inspection, Pharynx Normal Neck: Full Range of Motion, Normal Inspection, Non Tender, Supple; No Carotid Bruit; Other Respiratory: Accessory Muscle Use, Crackles, Respiratory Distress, Wheezing Cardiovascular: Regular Rate, Rhythm, No Gallop, No Murmur, Normal Peripheral Pulses Gastrointestinal: Normal Bowel Sounds, No Organomegaly, No Pulsatile Mass, Non Tender, Soft Neurologic/Psychiatric: Alert, Oriented x3, No Motor/Sensory Deficits Assessment/Plan Assessment and Plan Assessment: Acute COPD exacerbation HTN Myasthenia Gravis RA DM Hx Blood clots in lungs Plan: - Start IV Solu-medrol & Duoneb breathing treatments. - get CXR - Tolerating 3L O2 well at this time, which is baseline for patient - Insulin Sliding scale for DM while admitted to hospital - Will hold prednisone for MG since receiving solu-medrol currently. - Continue other home medications including eliquis. - DVT proph: lovenox - Diet: as tolerated Problems: (1) Hypertension Status: Chronic (2) Wheezing (3) COPD (chronic obstructive pulmonary disease) (4) Diabetes mellitus Status: Chronic (5) Morbid obesity Status: Acute (6) HTN (hypertension) Status: Acute (7) Myasthenia gravis (8) Hx of pulmonary embolus Status: Acute (9) COPD with exacerbation SHAYLA ZAMORA DO 03/11/23 0513: History of Present Illness History of Present Illness Time Seen by a Provider: 19:00 Allergies and Home Medications Allergies Coded Allergies: adhesive tape (Verified Allergy, Intermediate, 01/25/23) BLISTERS AND RAW SKIN almond (Verified Allergy, Intermediate, Abdominal Pain, 01/25/23) Pt states having pain when she eat them. amlodipine (Verified Allergy, Unknown, 01/25/23) erythromycin base (Verified Allergy, Unknown, 01/25/23) Patient Home Medication List Home Medication List Reviewed: Yes Acetylcysteine (Nac) 600 Mg Capsule, 600 MG PO DAILY, (Reported) Entered as Reported by: NITO BREWER on 02/11/23 1059 Albuterol Sulfate (Ventolin Hfa) 90 Mcg Hfa.aer.ad, 2 PUFF IH Q4H PRN for SHORTNESS OF BREATH, (Reported) Entered as Reported by: MANGO DE LA TORRE on 04/26/22 0938 Alprazolam (Alprazolam) 0.5 Mg Tablet, 0.5 MG PO Q8H PRN for ANXIETY, (Reported) Entered as Reported by: NITO BREWER on 10/16/21 1125 Apixaban (Eliquis) 5 Mg Tablet, 5 MG PO BID, (Reported) Entered as Reported by: NITO BREWER on 01/27/21 0947 Atorvastatin Calcium (Atorvastatin Calcium) 20 Mg Tablet, 20 MG PO DAILY, (Reported) Entered as Reported by: NE GARRETT on 03/31/18 0950 Azathioprine (Imuran) 50 Mg Tablet, 100 MG PO BID, (Reported) Entered as Reported by: NITO BREWER on 10/16/21 1125 Azithromycin (Azithromycin) 250 Mg Tablet, 250 MG PO DAILY, (Reported) Entered as Reported by: MANGO DE LA TORRE on 04/26/22 0927 Budesonide (Budesonide) 0.5 Mg/2 Ml Ampul.neb, 0.5 MG IH BID PRN for SHORTNESS OF BREATH, (Reported) Entered as Reported by: NITO BREWER on 12/30/22 1357 Budesonide/Glycopyr/Formoterol (Breztri Aerosphere Inhaler) 160 Mcg-9 Mcg-4.8 Mcg/Actuation Hfa.aer.ad, 2 PUFF IH DAILY, (Reported) Entered as Reported by: MANGO DE LA TORRE on 04/26/22 0955 Calcium Carbonate (Calcium Carbonate) 600 Mg Calcium (1500 Mg) Tablet, 600 MG PO BID, (Reported) Entered as Reported by: NITO BREWER on 10/16/21 1135 Cetirizine HCl (All Day Allergy) 10 Mg Tablet, 10 MG PO BID, (Reported) Entered as Reported by: NITO BREWER on 10/06/20 1532 Cholecalciferol (Vitamin D3) (Vitamin D3) 25 Mcg (1000 Unit) Tablet, 25 MCG PO DAILY, (Reported) Entered as Reported by: NITO BREWER on 02/11/23 1059 Citalopram Hydrobromide (Citalopram HBr) 20 Mg Tablet, 20 MG PO DAILY, (Reported) Entered as Reported by: NITO BREWER on 10/06/20 1530 Clonidine HCl (Clonidine HCl) 0.1 Mg Tablet, 0.1 MG PO BID, (Reported) Entered as Reported by: NITO BREWER on 12/30/22 1357 Ezetimibe (Ezetimibe) 10 Mg Tablet, 10 MG PO DAILY, (Reported) Entered as Reported by: NITO BREWER on 02/11/23 1059 Fluticasone Propionate (Fluticasone Propionate) 50 Mcg/Actuation Ethridge.susp, 1 SPRAY NSEACH BID, (Reported) Entered as Reported by: NITO BREWER on 10/16/21 1125 Furosemide (Furosemide) 40 Mg Tablet, 40 MG PO DAILY PRN for FLUID RETENTION, (Reported) Entered as Reported by: MARIIA ALEJANRDO on 12/25/20 1838 Glyburide (Glyburide) 5 Mg Tablet, 5 MG PO BID Prescribed by: SHAYLA ZAMORA on 02/14/23 0937 Ipratropium/Albuterol Sulfate (Iprat-Albut 0.5-3(2.5) mg/3 ml) 0.5 Mg-3 Mg (2.5 Mg Base)/3 Ml Ampul.neb, 3 ML NEB Q4H PRN for SHORTNESS OF BREATH, (Reported) Entered as Reported by: MANGO DE LA TORRE on 04/26/22 0938 Levothyroxine Sodium (Levothyroxine Sodium) 50 Mcg Tablet, 50 MCG PO DAILY, (Reported) Entered as Reported by: VIVEK ROJAS on 07/31/15 1558 Losartan Potassium (Losartan Potassium) 50 Mg Tablet, 50 MG PO DAILY, (Reported) Entered as Reported by: NITO BREWER on 10/06/20 1530 Melatonin (Melatonin) 10 Mg Tablet, 20 MG PO HS, (Reported) Entered as Reported by: NITO BREWER on 04/29/21 1240 Montelukast Sodium (Montelukast Sodium) 10 Mg Tablet, 10 MG PO DAILY, (Reported) Entered as Reported by: NE GARRETT on 03/31/18 0950 Pantoprazole Sodium (Pantoprazole Sodium) 40 Mg Tablet.dr, 40 MG PO DAILY, (Reported) Entered as Reported by: NITO BREWER on 08/12/20 0919 Potassium Chloride (Potassium Chloride) 20 Meq Tablet.er, 20 MEQ PO BID, (Reported) Entered as Reported by: NITO BREWER on 01/27/21 0947 Prednisone (Prednisone) 20 Mg Tab, 20 MG PO DAILY Prescribed by: SHAYLA ZAMORA on 02/14/23 0937 Triamterene/Hydrochlorothiazid (Triamterene-Hctz 37.5-25 mg Cp) 1 Each Capsule, 1 CAP PO DAILY, (Reported) Entered as Reported by: NE GARRETT on 03/31/18 0950 Venlafaxine HCl (Venlafaxine HCl ER) 75 Mg Cap.er.24h, 75 MG PO DAILY, (Reported) Entered as Reported by: NITO BREWER on 06/05/21 1345 Past Hareutn-Ngwupu-Ktjfsm Hx Patient Social History Marrital Status: Employed/Student: employed Smoking Status: Never a Smoker Family Medical History Alcoholism G8 BROTHER G8 SISTER Alzheimer's disease 19 MOTHER Arthritis 19 FATHER Asthma G8 SISTER Cardiovascular disease 19 FATHER Cataracts 19 FATHER Coronary thrombosis 19 FATHER Deafness or hearing loss SON Diabetes mellitus 19 FATHER G8 SISTER G8 SISTER Drug abuse G8 SISTER Hypertension 19 FATHER G8 SISTER G8 SISTER Kidney disease 19 FATHER Respiratory disorder G8 SISTER G8 SISTER Seizure disorder SON Severe allergy SON Review of Systems Respiratory: dyspnea on exertion, short of breath, wheezing Physical Exam General Appearance: Anxious, Chronically ill, Mild Distress, Obese Respiratory: Accessory Muscle Use, Crackles, Wheezing Assessment/Plan Assessment and Plan Assessment: Acute on chronic hypoxic and hypercapneic respiratory failure Acute COPD exacerbation failed outpatient steroid treatment HTN Myasthenia Gravis RA DM Hx PE h/o long COVID RALPH on CPAP Admission Diagnosis Admission Status: Inpatient Order (span 2 midnights) Reason for Inpatient Admission: acute on chronic resp failure failed outpatient steroids Supervisory-Addendum Brief Verification & Attestation Participated in pt care: history, MDM, physical Personally performed: exam, history, MDM, supervision of care Care discussed with: Medical Student Procedures: n/a Results interpretation: Verified all documentation Verification and Attestation of Medical Student E/M Service A medical student performed and documented this service in my presence. I reviewed and verified all information documented by the medical student and made modifications to such information, when appropriate. I personally performed the physical exam and medical decision making. Shayla Zamora, Mar 11, 2023,05:12 MAGEN PALMER Mar 10, 2023 16:47 SHAYLA ZAMORA DO Mar 11, 2023 05:13
[2023-03-10 16:55] LABS: ABG BASE EXCESS 1.1 MMOL/L (-2.5-2.5); ABG OXYGEN SATURATION 88 % (94-100); ABG PCO2 46 MMHG (35-45); ABG PH 7.36 (7.37-7.43); ABG PO2 51 MMHG (79-93); ABG TCO2 27.5 MMOL/L (21.0-31.0)
[2023-03-10 16:56] LABS: ALLENS TEST YES-POS; INSPIRED O2 3L; PATIENT TEMP 36; VENTILATOR NO
[2023-03-10] MEDS: cloNIDine 0.1 MG (CATAPRES) TAB PO PRN (17:05)
[2023-03-10 17:10] VITALS: BP 181/78
--- NOTE | 2023-03-10 17:14 | Diagnostic Imaging Report ---
EXAMINATION: Chest radiograph, portable AP view. DATE: 03/10/2023 5:08 PM INDICATION: 63-year-old female, shortness of breath, pneumonia. COMPARISON: February 10, 2023. FINDINGS: There is a left-sided port catheter with tip overlying the mid SVC. Heart size and mediastinal contours are grossly unchanged. There is no identified pneumothorax. There are technical limitations of the exam relating to patient body habitus and difficulties with exposure. There is no definite focal airspace consolidation. IMPRESSION: 1. Technically limited study relating to patient body habitus. 2. No definite radiographically apparent acute cardiopulmonary abnormality. Dictated by: Dictated on workstation # [id number]
[2023-03-10] MEDS ORDERED: CEFEPIME 1,000 MG/NS 50 ML IVPB IV NR ×2 (17:30)
[2023-03-10] MEDS ORDERED: RT-ALBUTEROL/IPRATROPIUM 3 ML (DUONEB) VIAL INH PRN (17:30)
[2023-03-10] MEDS ORDERED: RT-ALBUTEROL/IPRATROPIUM 3 ML (DUONEB) VIAL ONE (17:33)
[2023-03-10 17:54] LABS: BASOPHILS % (AUTO) 0 % (0-10); EOSINOPHILS % (AUTO) 0 % (0-10); HEMATOCRIT 34 % (35-52); HEMOGLOBIN 10.8 g/dL (11.5-16.0); LYMPHOCYTES # (AUTO) 0.8 10^3/uL (1.0-4.0); LYMPHOCYTES % (AUTO) 11 % (12-44); MEAN CORPUSCULAR HEMOGLOBIN 30 pg (25-34); MEAN CORPUSCULAR HGB CONC 32 g/dL (32-36); MEAN CORPUSCULAR VOLUME 96 fL (80-99); MEAN PLATELET VOLUME 9.9 fL (9.0-12.2); MONOCYTES # (AUTO) 0.3 10^3/uL (0.0-1.0); MONOCYTES % (AUTO) 5 % (0-12); NEUTROPHILS # (AUTO) 5.5 10^3/uL (1.8-7.8); NEUTROPHILS % (AUTO) 82 % (42-75); PLATELET COUNT 274 10^3/uL (130-400); WHITE BLOOD COUNT 6.8 10^3/uL (4.3-11.0)
[2023-03-10] MEDS: RT-ALBUTEROL/IPRATROPIUM 3 ML (DUONEB) VIAL INH SCH ×2 (18:00→22:14)
[2023-03-10] MEDS ORDERED: methylPREDNISolone 40 MG/ML (Solu-MEDROL) VIAL IV SCH (18:00)
[2023-03-10 18:06] LABS: ALBUMIN 3.6 GM/DL (3.2-4.5); POTASSIUM 4.3 MMOL/L (3.6-5.0)
[2023-03-10 18:07] LABS: CALCIUM 8.7 MG/DL (8.5-10.1)
[2023-03-10 18:09] LABS: TOTAL PROTEIN 6.1 GM/DL (6.4-8.2)
[2023-03-10 18:11] LABS: BILIRUBIN,TOTAL 0.3 MG/DL (0.1-1.0)
[2023-03-10 18:12] LABS: CREATININE SERUM 0.87 MG/DL (0.60-1.30)
[2023-03-10] MEDS: methylPREDNISolone 40 MG/ML (Solu-MEDROL) VIAL IV SCH ×2 (18:15→23:53)
[2023-03-10] MEDS ORDERED: guaiFENesin/CODEINE (ROBITUSSIN AC) 10ML UDC PO PRN (18:45)
[2023-03-10] MEDS: BENZONATATE 100 MG (TESSALON) CAPSULE PO SCH ×2 (18:56→21:05)
[2023-03-10 20:00] VITALS: BP 150/73
[2023-03-10] MEDS ORDERED: inSUlin ASPART (NovoLOG) 1 UNIT/0.01 ML (CHARGE PER UNIT) SC SCH (21:00)
[2023-03-10] MEDS ORDERED: SENNOSIDES 8.6 MG (SENOKOT) TAB PO SCH (21:00)
[2023-03-10] MEDS ORDERED: DOCUSATE SODIUM 100 MG (COLACE) CAP PO SCH (21:00)
[2023-03-10] MEDS ORDERED: DOXYCYCLINE INJECTION 100 MG in NS (IVPB) 100 ML IV SCH (21:00)
[2023-03-10] MEDS ORDERED: CEFEPIME INJECTION 1,000 MG in NS (IVPB) 50 ML IV SCH (21:00)
[2023-03-10] MEDS ORDERED: APIXABAN 5 MG (ELIQUIS) TABLET PO SCH (21:00)
[2023-03-10] MEDS: DOXYCYCLINE INJECTION 100 MG in NS (IVPB) 100 ML IV SCH (21:04)
[2023-03-10] MEDS: APIXABAN 5 MG (ELIQUIS) TABLET PO SCH (21:05)
[2023-03-10] MEDS: DOCUSATE SODIUM 100 MG (COLACE) CAP PO SCH (21:05)
[2023-03-10] MEDS: SENNOSIDES 8.6 MG (SENOKOT) TAB PO SCH (21:06)
[2023-03-10] MEDS: inSUlin ASPART (NovoLOG) 1 UNIT/0.01 ML (CHARGE PER UNIT) SC SCH (21:06)
[2023-03-10] MEDS ORDERED: ALPRAZolam 1 MG (XANAX) TAB PO PRN (21:30)
[2023-03-10] MEDS: CEFEPIME INJECTION 1,000 MG in NS (IVPB) 50 ML IV SCH (23:54)
[2023-03-11] VITALS (8 sets, daily range): BP systolic 145–183; BP diastolic 62–94
[2023-03-11] MEDS: cloNIDine 0.1 MG (CATAPRES) TAB PO PRN ×3 (00:04→11:19)
[2023-03-11] MEDS: RT-ALBUTEROL/IPRATROPIUM 3 ML (DUONEB) VIAL INH SCH ×6 (02:40→21:48)
[2023-03-11] MEDS: methylPREDNISolone 40 MG/ML (Solu-MEDROL) VIAL IV SCH ×4 (06:02→23:36)
[2023-03-11] MEDS: CEFEPIME INJECTION 1,000 MG in NS (IVPB) 50 ML IV SCH ×4 (06:02→23:36)
[2023-03-11 06:37] LABS: BASOPHILS % (AUTO) 0 % (0-10); EOSINOPHILS % (AUTO) 1 % (0-10); HEMATOCRIT 35 % (35-52); LYMPHOCYTES # (AUTO) 0.5 10^3/uL (1.0-4.0); LYMPHOCYTES % (AUTO) 7 % (12-44); MEAN CORPUSCULAR HEMOGLOBIN 30 pg (25-34); MEAN CORPUSCULAR HGB CONC 32 g/dL (32-36); MEAN CORPUSCULAR VOLUME 94 fL (80-99); MEAN PLATELET VOLUME 9.8 fL (9.0-12.2); MONOCYTES # (AUTO) 0.1 10^3/uL (0.0-1.0); MONOCYTES % (AUTO) 1 % (0-12); NEUTROPHILS % (AUTO) 90 % (42-75); PLATELET COUNT 224 10^3/uL (130-400); WHITE BLOOD COUNT 6.7 10^3/uL (4.3-11.0)
[2023-03-11 06:55] LABS: NEUTROPHILS % (MANUAL) 92 %
[2023-03-11 06:56] LABS: LYMPHOCYTES % (MANUAL) 7 %; MONOCYTES % (MANUAL) 1 %; RBC MORPH NORMAL
[2023-03-11 06:58] LABS: ALBUMIN 3.7 GM/DL (3.2-4.5); POTASSIUM 4.2 MMOL/L (3.6-5.0)
[2023-03-11 06:59] LABS: CALCIUM 8.9 MG/DL (8.5-10.1)
[2023-03-11 07:01] LABS: TOTAL PROTEIN 6.2 GM/DL (6.4-8.2)
[2023-03-11 07:02] LABS: BILIRUBIN,TOTAL 0.3 MG/DL (0.1-1.0)
[2023-03-11 07:04] LABS: CREATININE SERUM 0.85 MG/DL (0.60-1.30)
[2023-03-11] MEDS: inSUlin ASPART (NovoLOG) 1 UNIT/0.01 ML (CHARGE PER UNIT) SC SCH ×4 (07:05→20:16)
[2023-03-11] MEDS: DOXYCYCLINE INJECTION 100 MG in NS (IVPB) 100 ML IV SCH ×2 (08:09→20:16)
[2023-03-11] MEDS: APIXABAN 5 MG (ELIQUIS) TABLET PO SCH ×2 (08:10→20:14)
[2023-03-11] MEDS: BENZONATATE 100 MG (TESSALON) CAPSULE PO SCH ×3 (08:10→20:15)
[2023-03-11] MEDS: SENNOSIDES 8.6 MG (SENOKOT) TAB PO SCH ×2 (08:10→20:15)
[2023-03-11] MEDS: DOCUSATE SODIUM 100 MG (COLACE) CAP PO SCH ×2 (08:10→20:15)
[2023-03-11] MEDS ORDERED: PRED5TAB PO (11:55)
[2023-03-11] MEDS ORDERED: GLBR5T PO (11:55)
--- NOTE | 2023-03-11 12:05 | Progress Note ---
Subjective Date Seen by a Provider: Mar 11, 2023 Time Seen by a Provider: 12:00 Subjective/Events-last exam Doing better Improved wheezing No need for biPAP Using her own CPAP O2 maintained No falls Daughter at bedside Review of Systems Pulmonary: Dyspnea, Cough Focused Exam Lactate Level 03/10/23 17:38: Lactic Acid Level 1.65 Objective Exam Last Set of Vital Signs Vital Signs Date Time Temp Pulse Resp B/P (MAP) Pulse Ox O2 Delivery O2 Flow Rate FiO2 03/11/23 11:58 36.5 68 16 183/90 (121) 99 Nasal Cannula 3.00 03/10/23 17:10 32 Capillary Refill : I&O Intake and Output 03/10/23 23:59 Intake Total 900 ml Balance 900 ml Intake Oral 800 ml IV Total 100 ml # Voids 4 Daily Weight Change No General: Alert, Oriented X3, Cooperative, No Acute Distress Lungs: Other (wheezing all hurt) Heart: Regular Rate Psych/Mental Status: Mental Status NL, Mood NL Results Lab Laboratory Tests 03/10/23 16:29: Blood Gas Puncture Site RR, Blood Gas Patient Temperature 36, Arterial Blood pH 7.36L, Arterial Blood Partial Pressure CO2 46H, Arterial Blood Partial Pressure O2 51L, Arterial Blood HCO3 26, Arterial Blood Total CO2 27.5, Arterial Blood Oxygen Saturation 88L, Arterial Blood Base Excess 1.1, Carlos Test YES-POS, Blood Gas Ventilator Setting NO, Blood Gas Inspired Oxygen 3L 03/10/23 17:36: White Blood Count 6.8, Red Blood Count 3.59L, Hemoglobin 10.8L, Hematocrit 34L, Mean Corpuscular Volume 96, Mean Corpuscular Hemoglobin 30, Mean Corpuscular Hemoglobin Concent 32, Red Cell Distribution Width 15.0H, Platelet Count 274, Mean Platelet Volume 9.9, Immature Granulocyte % (Auto) 2, Neutrophils (%) (Auto) 82H, Lymphocytes (%) (Auto) 11L, Monocytes (%) (Auto) 5, Eosinophils (%) (Auto) 0, Basophils (%) (Auto) 0, Neutrophils # (Auto) 5.5, Lymphocytes # (Auto) 0.8L, Monocytes # (Auto) 0.3, Eosinophils # (Auto) 0.0, Basophils # (Auto) 0.0, Immature Granulocyte # (Auto) 0.1, Sodium Level 136, Potassium Level 4.3, Chloride Level 102, Carbon Dioxide Level 22, Anion Gap 12, Blood Urea Nitrogen 26H, Creatinine 0.87, Estimat Glomerular Filtration Rate 74, BUN/Creatinine Ratio 30, Glucose Level 221H, Calcium Level 8.7, Corrected Calcium 9.0, Total Bilirubin 0.3, Aspartate Amino Transf (AST/SGOT) 13, Alanine Aminotransferase (ALT/SGPT) 19, Alkaline Phosphatase 103, B-Type Natriuretic Peptide 44.0, Total Protein 6.1L, Albumin 3.6 03/10/23 17:38: Lactic Acid Level 1.65 03/10/23 18:59: Influenza Type A Antigen NEGATIVE, Influenza Type B Antigen NEGATIVE, SARS-CoV-2 RNA (RT-PCR) Not Detected 03/10/23 20:56: Glucometer 279H 03/11/23 06:25: White Blood Count 6.7, Red Blood Count 3.67L, Hemoglobin 11.0L, Hematocrit 35, Mean Corpuscular Volume 94, Mean Corpuscular Hemoglobin 30, Mean Corpuscular Hemoglobin Concent 32, Red Cell Distribution Width 15.1H, Platelet Count 224, Mean Platelet Volume 9.8, Immature Granulocyte % (Auto) 1, Neutrophils (%) (Auto) 90H, Lymphocytes (%) (Auto) 7L, Monocytes (%) (Auto) 1, Eosinophils (%) (Auto) 1, Basophils (%) (Auto) 0, Neutrophils # (Auto) 6.0, Lymphocytes # (Auto) 0.5L, Monocytes # (Auto) 0.1, Eosinophils # (Auto) 0.0, Basophils # (Auto) 0.0, Immature Granulocyte # (Auto) 0.1, Neutrophils % (Manual) 92, Lymphocytes % (Manual) 7, Monocytes % (Manual) 1, Blood Morphology Comment NORMAL, Sodium Level 139, Potassium Level 4.2, Chloride Level 105, Carbon Dioxide Level 22, Anion Gap 12, Blood Urea Nitrogen 24H, Creatinine 0.85, Estimat Glomerular Filtration Rate 76, BUN/Creatinine Ratio 28, Glucose Level 294H, Calcium Level 8.9, Corrected Calcium 9.1, Total Bilirubin 0.3, Aspartate Amino Transf (AST/SGOT) 10, Alanine Aminotransferase (ALT/SGPT) 19, Alkaline Phosphatase 112, Total Protein 6.2L, Albumin 3.7 03/11/23 10:38: Glucometer 328H Assessment/Plan Assessment/Plan Assess & Plan/Chief Complaint Assessment: Acute on chronic hypoxic and hypercapneic respiratory failure Acute COPD exacerbation failed outpatient steroid treatment HTN Myasthenia Gravis RA DM Hx PE h/o long COVID RALPH on CPAP Plan: O2 Nebs IV steroids Abx Clinical Quality Measures Admission Status Admission Dx Assessment: Acute on chronic hypoxic and hypercapneic respiratory failure Acute COPD exacerbation failed outpatient steroid treatment HTN Myasthenia Gravis RA DM Hx PE h/o long COVID RALPH on CPAP FABIENNE ZAMORA DO Mar 11, 2023 12:05
[2023-03-11] MEDS ORDERED: FUROSEMIDE 40 MG (LASIX) TAB PO PRN (12:15)
[2023-03-11] MEDS ORDERED: RT-ALBUTEROL/IPRATROPIUM 3 ML (DUONEB) VIAL IH PRN (12:15)
[2023-03-11] MEDS ORDERED: ALPRAZolam 0.5 MG (XANAX) TAB PO PRN (12:15)
[2023-03-11] MEDS ORDERED: RT-BUDESONIDE NEBS 0.5 MG/2ML (PULMICORT) AMP IH PRN (12:15)
[2023-03-11] MEDS ORDERED: RT-ALBUTEROL SULF 2.5 MG/3 ML PRE-MIX VIAL IH PRN (12:15)
[2023-03-11] MEDS: MELATONIN 10 MG TABLET PO SCH (20:14)
[2023-03-11] MEDS: glyBURIDE 2.5 MG (MICRONASE) TAB PO SCH (20:14)
[2023-03-11] MEDS: cloNIDine 0.1 MG (CATAPRES) TAB PO SCH (20:15)
[2023-03-11] MEDS: CALCIUM CARBONATE 600 MG (CALCARB) TAB PO SCH (20:15)
[2023-03-11] MEDS: KCL 20 MEQ TAB (K-DUR) PO SCH (20:15)
[2023-03-11] MEDS: FLUTICASONE NASAL SPRAY (FLONASE) 16 GM BTL NS SCH (20:45)
[2023-03-11] MEDS ORDERED: AZATHIOPRINE 100 MG PO SCH (21:00)
[2023-03-11] MEDS ORDERED: [UNRECOGNIZED DRUG - REMARK] PO SCH (21:00)
[2023-03-11] MEDS: RT--FLUTICASONE/SALMETEROL 232-14 (AIRDUO RespiCLICK) IH SCH (21:48)
[2023-03-12] VITALS (7 sets, daily range): BP systolic 139–193; BP diastolic 63–90
[2023-03-12] MEDS: RT-ALBUTEROL/IPRATROPIUM 3 ML (DUONEB) VIAL INH SCH ×6 (02:49→21:47)
[2023-03-12] MEDS: methylPREDNISolone 40 MG/ML (Solu-MEDROL) VIAL IV SCH ×3 (05:43→20:16)
[2023-03-12] MEDS: CEFEPIME INJECTION 1,000 MG in NS (IVPB) 50 ML IV SCH ×4 (05:43→23:30)
[2023-03-12] MEDS: inSUlin ASPART (NovoLOG) 1 UNIT/0.01 ML (CHARGE PER UNIT) SC SCH ×4 (05:43→20:26)
[2023-03-12] MEDS: LEVOTHYROXINE 50 MCG (LEVOTHROID) TAB PO SCH (05:44)
[2023-03-12 06:00] LABS: BASOPHILS % (AUTO) 0 % (0-10); EOSINOPHILS % (AUTO) 0 % (0-10); HEMATOCRIT 34 % (35-52); HEMOGLOBIN 10.8 g/dL (11.5-16.0); LYMPHOCYTES # (AUTO) 0.5 10^3/uL (1.0-4.0); LYMPHOCYTES % (AUTO) 6 % (12-44); MEAN CORPUSCULAR HEMOGLOBIN 30 pg (25-34); MEAN CORPUSCULAR HGB CONC 32 g/dL (32-36); MEAN CORPUSCULAR VOLUME 93 fL (80-99); MEAN PLATELET VOLUME 10.2 fL (9.0-12.2); MONOCYTES # (AUTO) 0.3 10^3/uL (0.0-1.0); MONOCYTES % (AUTO) 3 % (0-12); NEUTROPHILS % (AUTO) 89 % (42-75); PLATELET COUNT 262 10^3/uL (130-400); WHITE BLOOD COUNT 8.9 10^3/uL (4.3-11.0)
[2023-03-12 06:20] LABS: ALBUMIN 3.6 GM/DL (3.2-4.5); BILIRUBIN,TOTAL 0.3 MG/DL (0.1-1.0); CALCIUM 8.9 MG/DL (8.5-10.1); CREATININE SERUM 0.96 MG/DL (0.60-1.30)
--- NOTE | 2023-03-12 07:29 | Progress Note ---
Subjective Date Seen by a Provider: Mar 12, 2023 Time Seen by a Provider: 11:00 Subjective/Events-last exam Patient doing better Wheezing is improved IV steroids Nebs ordered BM+ No falls Review of Systems General: Fatigue, Malaise Focused Exam Lactate Level 03/10/23 17:38: Lactic Acid Level 1.65 Objective Exam Last Set of Vital Signs Vital Signs Date Time Temp Pulse Resp B/P (MAP) Pulse Ox O2 Delivery O2 Flow Rate FiO2 03/12/23 03:21 36.0 76 16 160/69 (99) 96 NIV CPAP 3.00 03/10/23 17:10 32 Capillary Refill : I&O Intake and Output 03/12/23 00:00 Intake Total 1350 ml Balance 1350 ml Intake Oral 1250 ml IV Total 100 ml # Voids 8 General: Alert, Oriented X3, Cooperative, No Acute Distress Lungs: Other (wheezing) Neuro: Normal Gait Results Lab Laboratory Tests 03/11/23 10:38: Glucometer 328H 03/11/23 15:39: Glucometer 284H 03/11/23 20:01: Glucometer 322H 03/12/23 05:28: Glucometer 285H 03/12/23 05:53: White Blood Count 8.9, Red Blood Count 3.62L, Hemoglobin 10.8L, Hematocrit 34L, Mean Corpuscular Volume 93, Mean Corpuscular Hemoglobin 30, Mean Corpuscular Hemoglobin Concent 32, Red Cell Distribution Width 15.7H, Platelet Count 262, Mean Platelet Volume 10.2, Immature Granulocyte % (Auto) 1, Neutrophils (%) (Auto) 89H, Lymphocytes (%) (Auto) 6L, Monocytes (%) (Auto) 3, Eosinophils (%) (Auto) 0, Basophils (%) (Auto) 0, Neutrophils # (Auto) 8.0H, Lymphocytes # (Au to) 0.5L, Monocytes # (Auto) 0.3, Eosinophils # (Auto) 0.0, Basophils # (Auto) 0.0, Immature Granulocyte # (Auto) 0.1, Sodium Level 136, Potassium Level 4.0, Chloride Level 104, Carbon Dioxide Level 24, Anion Gap 8, Blood Urea Nitrogen 25H, Creatinine 0.96, Estimat Glomerular Filtration Rate 66, BUN/Creatinine Ratio 26, Glucose Level 308H, Calcium Level 8.9, Corrected Calcium 9.2, Total Bilirubin 0.3, Aspartate Amino Transf (AST/SGOT) 11, Alanine Aminotransferase (ALT/SGPT) 22, Alkaline Phosphatase 106, Total Protein 6.0L, Albumin 3.6 Microbiology 03/10/23 Blood Culture - Preliminary, Resulted No growth Assessment/Plan Assessment/Plan Assess & Plan/Chief Complaint Assessment: Acute on chronic hypoxic and hypercapneic respiratory failure Acute COPD exacerbation failed outpatient steroid treatment HTN Myasthenia Gravis RA DM Hx PE h/o long COVID RALPH on CPAP Plan: O2 Nebs IV steroids Abx Clinical Quality Measures Admission Status Admission Dx Assessment: Acute on chronic hypoxic and hypercapneic respiratory failure Acute COPD exacerbation failed outpatient steroid treatment HTN Myasthenia Gravis RA DM Hx PE h/o long COVID RALPH on CPAP FABIENNE ZAMORA DO Mar 12, 2023 07:29
--- NOTE | 2023-03-12 07:29 | Progress Note - Hospitalist ---
Subjective HPI/CC On Admission Date Seen by Provider: Mar 12, 2023 Time Seen by Provider: 11:00 Focused Exam Lactate Level 03/10/23 17:38: Lactic Acid Level 1.65 Objective Exam Vital Signs Vital Signs Date Time Temp Pulse Resp B/P (MAP) Pulse Ox O2 Delivery O2 Flow Rate FiO2 03/12/23 03:21 36.0 76 16 160/69 (99) 96 NIV CPAP 3.00 03/10/23 17:10 32 Capillary Refill : Results/Procedures Lab Laboratory Tests 03/12/23 05:53 Patient resulted labs reviewed. Clinical Quality Measures Admission Status Admission Dx Assessment: Acute on chronic hypoxic and hypercapneic respiratory failure Acute COPD exacerbation failed outpatient steroid treatment HTN Myasthenia Gravis RA DM Hx PE h/o long COVID RALPH on CPAP FABIENNE ZAMORA DO Mar 12, 2023 07:29
[2023-03-12] MEDS: RT--FLUTICASONE/SALMETEROL 232-14 (AIRDUO RespiCLICK) IH SCH ×2 (07:49→21:54)
[2023-03-12] MEDS: UMECLIDINIUM BROMIDE (INCRUSE ELLIPTA) 7'S IH SCH (07:49)
[2023-03-12] MEDS: DOXYCYCLINE INJECTION 100 MG in NS (IVPB) 100 ML IV SCH ×2 (08:03→20:16)
[2023-03-12] MEDS: KCL 20 MEQ TAB (K-DUR) PO SCH ×2 (08:04→20:16)
[2023-03-12] MEDS: DOCUSATE SODIUM 100 MG (COLACE) CAP PO SCH ×2 (08:04→20:16)
[2023-03-12] MEDS: VITAMIN D3 25 MCG (1,000 UNITS) TABLET PO SCH (08:04)
[2023-03-12] MEDS: BENZONATATE 100 MG (TESSALON) CAPSULE PO SCH ×3 (08:04→20:14)
[2023-03-12] MEDS: predniSONE 5 MG TAB PO SCH (08:04)
[2023-03-12] MEDS: PANTOPRAZOLE 40 MG (PROTONIX) TAB PO SCH (08:04)
[2023-03-12] MEDS: glyBURIDE 2.5 MG (MICRONASE) TAB PO SCH ×2 (08:04→20:14)
[2023-03-12] MEDS: SENNOSIDES 8.6 MG (SENOKOT) TAB PO SCH ×2 (08:04→20:16)
[2023-03-12] MEDS: LOSARTAN 50 MG (COZAAR) TAB PO SCH (08:05)
[2023-03-12] MEDS: cloNIDine 0.1 MG (CATAPRES) TAB PO SCH ×2 (08:05→20:16)
[2023-03-12] MEDS: MONTELUKAST 10 MG (SINGULAIR) TAB PO SCH (08:05)
[2023-03-12] MEDS: CALCIUM CARBONATE 600 MG (CALCARB) TAB PO SCH ×2 (08:05→20:16)
[2023-03-12] MEDS: APIXABAN 5 MG (ELIQUIS) TABLET PO SCH ×2 (08:05→20:16)
[2023-03-12] MEDS: eZETimibe 10 MG (ZETIA) TABLET PO SCH (08:05)
[2023-03-12] MEDS: VENlafaxine XR 75 MG (EFFEXOR XR) CAP PO SCH (08:05)
[2023-03-12] MEDS: FLUTICASONE NASAL SPRAY (FLONASE) 16 GM BTL NS SCH ×2 (08:45→20:17)
[2023-03-12] MEDS ORDERED: NON-FORMULARY MEDICATION 1 EA EA (Triamterene/Hydrochlorothiazid (Triamterene-Hctz 37.5-25 PO SCH (09:00)
[2023-03-12] MEDS ORDERED: NON-FORMULARY MEDICATION 1 EA EA (Budesonide/Glycopyr/Formoterol (Breztri Aerosphere Inhal IH SCH (09:00)
[2023-03-12] MEDS ORDERED: aCETylcysteine 20% (MUCOMYST) 4 ML SOLN VIAL PO SCH (09:00)
[2023-03-12] MEDS: cloNIDine 0.1 MG (CATAPRES) TAB PO PRN (16:26)
[2023-03-12] MEDS: MELATONIN 10 MG TABLET PO SCH (20:15)
[2023-03-13] VITALS (7 sets, daily range): BP systolic 161–194; BP diastolic 74–95
[2023-03-13] MEDS: RT-ALBUTEROL/IPRATROPIUM 3 ML (DUONEB) VIAL INH SCH ×5 (02:52→19:00)
[2023-03-13] MEDS: LEVOTHYROXINE 50 MCG (LEVOTHROID) TAB PO SCH (05:13)
[2023-03-13] MEDS: CEFEPIME INJECTION 1,000 MG in NS (IVPB) 50 ML IV SCH ×2 (05:13→11:47)
[2023-03-13 05:24] LABS: BASOPHILS % (AUTO) 0 % (0-10); EOSINOPHILS % (AUTO) 0 % (0-10); HEMATOCRIT 33 % (35-52); HEMOGLOBIN 10.6 g/dL (11.5-16.0); LYMPHOCYTES # (AUTO) 0.5 10^3/uL (1.0-4.0); LYMPHOCYTES % (AUTO) 5 % (12-44); MEAN CORPUSCULAR HEMOGLOBIN 30 pg (25-34); MEAN CORPUSCULAR HGB CONC 32 g/dL (32-36); MEAN CORPUSCULAR VOLUME 93 fL (80-99); MEAN PLATELET VOLUME 10.2 fL (9.0-12.2); MONOCYTES # (AUTO) 0.5 10^3/uL (0.0-1.0); MONOCYTES % (AUTO) 5 % (0-12); NEUTROPHILS # (AUTO) 8.8 10^3/uL (1.8-7.8); NEUTROPHILS % (AUTO) 88 % (42-75); PLATELET COUNT 236 10^3/uL (130-400)
[2023-03-13 05:47] LABS: ALBUMIN 3.5 GM/DL (3.2-4.5); BILIRUBIN,TOTAL 0.3 MG/DL (0.1-1.0); CALCIUM 8.7 MG/DL (8.5-10.1); CREATININE SERUM 1.16 MG/DL (0.60-1.30); POTASSIUM 4.4 MMOL/L (3.6-5.0); TOTAL PROTEIN 5.6 GM/DL (6.4-8.2)
[2023-03-13] MEDS: inSUlin ASPART (NovoLOG) 1 UNIT/0.01 ML (CHARGE PER UNIT) SC SCH ×4 (06:09→21:18)
--- NOTE | 2023-03-13 06:15 | Progress Note ---
Subjective Date Seen by a Provider: Mar 13, 2023 Time Seen by a Provider: 11:00 Subjective/Events-last exam Much improved Wheezing still present but improved BP still elevated BS still elevated Review of Systems General: Fatigue, Malaise Pulmonary: Dyspnea, Cough Focused Exam Lactate Level 03/10/23 17:38: Lactic Acid Level 1.65 Objective Exam Last Set of Vital Signs Vital Signs Date Time Temp Pulse Resp B/P (MAP) Pulse Ox O2 Delivery O2 Flow Rate FiO2 03/13/23 03:28 36.0 71 16 175/79 (111) 98 NIV CPAP 03/13/23 02:54 3.00 03/10/23 17:10 32 Capillary Refill : I&O Intake and Output 03/13/23 00:00 Intake Total 2990 ml Balance 2990 ml Intake Oral 2790 ml IV Total 200 ml # Voids 10 # Bowel Movements 1 General: Alert, Oriented X3, Cooperative, No Acute Distress Lungs: Other (wheezing) Psych/Mental Status: Mental Status NL, Mood NL Results Lab Laboratory Tests 03/12/23 10:38: Glucometer 323H 03/12/23 15:51: Glucometer 303H 03/12/23 20:21: Glucometer 303H 03/13/23 05:10: White Blood Count 10.0, Red Blood Count 3.59L, Hemoglobin 10.6L, Hematocrit 33L, Mean Corpuscular Volume 93, Mean Corpuscular Hemoglobin 30, Mean Corpuscular Hemoglobin Concent 32, Red Cell Distribution Width 15.9H, Platelet Count 236, Mean Platelet Volume 10.2, Immature Granulocyte % (Auto) 3, Neutrophils (%) (Auto) 88H, Lymphocytes (%) (Auto) 5L, Monocytes (%) (Auto) 5, Eosinophils (%) (Auto) 0, Basophils (%) (Auto) 0, Neutrophils # (Auto) 8.8H, Lymphocytes # (Auto) 0.5L, Monocytes # (Auto) 0.5, Eosinophils # (Auto) 0.0, Basophils # (Auto) 0.0, Immature Granulocyte # (Auto) 0.3H, Sodium Level 138, Potassium Level 4.4, Chloride Level 104, Carbon Dioxide Level 26, Anion Gap 8, Blood Urea Nitrogen 35H, Creatinine 1.16, Estimat Glomerular Filtration Rate 52, BUN/Creatinine Ratio 30, Glucose Level 301H, Calcium Level 8.7, Corrected Calcium 9.1, Total Bilirubin 0.3, Aspartate Amino Transf (AST/SGOT) 11, Alanine Aminotransferase (ALT/SGPT) 22, Alkaline Phosphatase 100, Total Protein 5.6L, Albumin 3.5 03/13/23 05:13: Glucometer 269H Microbiology 03/10/23 Blood Culture - Preliminary, Resulted No growth Assessment/Plan Assessment/Plan Assess & Plan/Chief Complaint Assessment: Acute on chronic hypoxic and hypercapneic respiratory failure Acute COPD exacerbation failed outpatient steroid treatment HTN Myasthenia Gravis RA DM Hx PE h/o long COVID RALPH on CPAP Plan: O2 Nebs IV steroids Abx Clinical Quality Measures Admission Status Admission Dx Assessment: Acute on chronic hypoxic and hypercapneic respiratory failure Acute COPD exacerbation failed outpatient steroid treatment HTN Myasthenia Gravis RA DM Hx PE h/o long COVID RALPH on CPAP FABIENNE ZAMORA DO Mar 13, 2023 06:15
[2023-03-13] MEDS: UMECLIDINIUM BROMIDE (INCRUSE ELLIPTA) 7'S IH SCH (07:10)
[2023-03-13] MEDS: RT--FLUTICASONE/SALMETEROL 232-14 (AIRDUO RespiCLICK) IH SCH (07:10)
[2023-03-13] MEDS: VITAMIN D3 25 MCG (1,000 UNITS) TABLET PO SCH (08:21)
[2023-03-13] MEDS: glyBURIDE 2.5 MG (MICRONASE) TAB PO SCH ×2 (08:21→21:17)
[2023-03-13] MEDS: VENlafaxine XR 75 MG (EFFEXOR XR) CAP PO SCH (08:21)
[2023-03-13] MEDS: cloNIDine 0.1 MG (CATAPRES) TAB PO SCH ×2 (08:21→21:17)
[2023-03-13] MEDS: eZETimibe 10 MG (ZETIA) TABLET PO SCH (08:21)
[2023-03-13] MEDS: PANTOPRAZOLE 40 MG (PROTONIX) TAB PO SCH (08:21)
[2023-03-13] MEDS: CALCIUM CARBONATE 600 MG (CALCARB) TAB PO SCH ×2 (08:21→21:17)
[2023-03-13] MEDS: SENNOSIDES 8.6 MG (SENOKOT) TAB PO SCH ×2 (08:21→21:18)
[2023-03-13] MEDS: APIXABAN 5 MG (ELIQUIS) TABLET PO SCH ×2 (08:22→21:17)
[2023-03-13] MEDS: BENZONATATE 100 MG (TESSALON) CAPSULE PO SCH ×3 (08:22→21:18)
[2023-03-13] MEDS: predniSONE 5 MG TAB PO SCH (08:22)
[2023-03-13] MEDS: LOSARTAN 50 MG (COZAAR) TAB PO SCH (08:22)
[2023-03-13] MEDS: KCL 20 MEQ TAB (K-DUR) PO SCH ×2 (08:22→21:18)
[2023-03-13] MEDS: DOCUSATE SODIUM 100 MG (COLACE) CAP PO SCH ×2 (08:22→21:17)
[2023-03-13] MEDS: MONTELUKAST 10 MG (SINGULAIR) TAB PO SCH (08:22)
[2023-03-13] MEDS: DOXYCYCLINE INJECTION 100 MG in NS (IVPB) 100 ML IV SCH (08:22)
[2023-03-13] MEDS: methylPREDNISolone 40 MG/ML (Solu-MEDROL) VIAL IV SCH (08:23)
[2023-03-13] MEDS: FLUTICASONE NASAL SPRAY (FLONASE) 16 GM BTL NS SCH ×2 (08:23→21:18)
[2023-03-13] MEDS: TRIAMTERENE/HCTZ 75-50 (MAXZIDE,DYAZIDE) TABLET PO SCH (09:07)
[2023-03-13] MEDS: RT-HYPERTONIC SALINE 3% 4 ML NEB INH SCH ×4 (11:09→22:07)
[2023-03-13] MEDS: cloNIDine 0.1 MG (CATAPRES) TAB PO PRN ×2 (11:48→23:37)
[2023-03-13] MEDS: DOXYCYCLINE 100 MG (VIBRAMYCIN) TABLET PO SCH (17:16)
[2023-03-13] MEDS: MELATONIN 10 MG TABLET PO SCH (21:17)
[2023-03-13] MEDS: predniSONE 20 MG TAB PO SCH (21:18)
[2023-03-14] MEDS: RT-ALBUTEROL/IPRATROPIUM 3 ML (DUONEB) VIAL INH SCH ×3 (02:25→10:58)
[2023-03-14] MEDS: RT-HYPERTONIC SALINE 3% 4 ML NEB INH SCH ×3 (02:26→10:58)
[2023-03-14 03:05] VITALS: BP_SYST 186; BP_SYST 193; BP_DIAS 86; BP_DIAS 94
[2023-03-14] MEDS: cloNIDine 0.1 MG (CATAPRES) TAB PO PRN (03:41)
[2023-03-14 05:12] LABS: BASOPHILS % (AUTO) 0 % (0-10); EOSINOPHILS % (AUTO) 0 % (0-10); HEMATOCRIT 36 % (35-52); HEMOGLOBIN 11.9 g/dL (11.5-16.0); LYMPHOCYTES # (AUTO) 0.9 10^3/uL (1.0-4.0); LYMPHOCYTES % (AUTO) 9 % (12-44); MEAN CORPUSCULAR HEMOGLOBIN 30 pg (25-34); MEAN CORPUSCULAR HGB CONC 33 g/dL (32-36); MEAN CORPUSCULAR VOLUME 92 fL (80-99); MEAN PLATELET VOLUME 10.1 fL (9.0-12.2); MONOCYTES # (AUTO) 0.8 10^3/uL (0.0-1.0); MONOCYTES % (AUTO) 8 % (0-12); NEUTROPHILS # (AUTO) 8.1 10^3/uL (1.8-7.8); NEUTROPHILS % (AUTO) 78 % (42-75); PLATELET COUNT 278 10^3/uL (130-400); WHITE BLOOD COUNT 10.3 10^3/uL (4.3-11.0)
[2023-03-14 05:33] LABS: ALBUMIN 3.8 GM/DL (3.2-4.5); BILIRUBIN,TOTAL 0.4 MG/DL (0.1-1.0); CALCIUM 8.9 MG/DL (8.5-10.1); CREATININE SERUM 0.93 MG/DL (0.60-1.30); POTASSIUM 4.7 MMOL/L (3.6-5.0); TOTAL PROTEIN 6.3 GM/DL (6.4-8.2)
[2023-03-14] MEDS: DOXYCYCLINE 100 MG (VIBRAMYCIN) TABLET PO SCH (05:58)
[2023-03-14] MEDS: LEVOTHYROXINE 50 MCG (LEVOTHROID) TAB PO SCH (05:58)
[2023-03-14] MEDS: inSUlin ASPART (NovoLOG) 1 UNIT/0.01 ML (CHARGE PER UNIT) SC SCH ×2 (05:58→11:55)
[2023-03-14 07:08] LABS: ABG BASE EXCESS 5.3 MMOL/L (-2.5-2.5); ABG OXYGEN SATURATION 100 % (94-100); ABG PCO2 42 MMHG (35-45); ABG PH 7.45 (7.37-7.43); ABG PO2 124 MMHG (79-93); ABG TCO2 30.7 MMOL/L (21.0-31.0)
[2023-03-14 07:11] LABS: ALLENS TEST YES-POS; PATIENT TEMP 36.2; VENTILATOR NO
[2023-03-14 07:12] LABS: INSPIRED O2 3L
[2023-03-14 08:00] VITALS: BP 162/76
[2023-03-14 08:01] VITALS: BP 186/86
[2023-03-14] MEDS: KCL 20 MEQ TAB (K-DUR) PO SCH (08:48)
[2023-03-14] MEDS: VENlafaxine XR 75 MG (EFFEXOR XR) CAP PO SCH (08:48)
[2023-03-14] MEDS: VITAMIN D3 25 MCG (1,000 UNITS) TABLET PO SCH (08:48)
[2023-03-14] MEDS: cloNIDine 0.1 MG (CATAPRES) TAB PO SCH (08:48)
[2023-03-14] MEDS: glyBURIDE 2.5 MG (MICRONASE) TAB PO SCH (08:49)
[2023-03-14] MEDS: TRIAMTERENE/HCTZ 75-50 (MAXZIDE,DYAZIDE) TABLET PO SCH (08:49)
[2023-03-14] MEDS: CALCIUM CARBONATE 600 MG (CALCARB) TAB PO SCH (08:49)
[2023-03-14] MEDS: LOSARTAN 50 MG (COZAAR) TAB PO SCH (08:49)
[2023-03-14] MEDS: BENZONATATE 100 MG (TESSALON) CAPSULE PO SCH ×2 (08:49→11:55)
[2023-03-14] MEDS: PANTOPRAZOLE 40 MG (PROTONIX) TAB PO SCH (08:49)
[2023-03-14] MEDS: predniSONE 20 MG TAB PO SCH (08:49)
[2023-03-14] MEDS: eZETimibe 10 MG (ZETIA) TABLET PO SCH (08:49)
[2023-03-14] MEDS: APIXABAN 5 MG (ELIQUIS) TABLET PO SCH (08:49)
[2023-03-14] MEDS: SENNOSIDES 8.6 MG (SENOKOT) TAB PO SCH (08:49)
[2023-03-14] MEDS: DOCUSATE SODIUM 100 MG (COLACE) CAP PO SCH (08:49)
[2023-03-14] MEDS: MONTELUKAST 10 MG (SINGULAIR) TAB PO SCH (08:50)
[2023-03-14] MEDS: FLUTICASONE NASAL SPRAY (FLONASE) 16 GM BTL NS SCH (08:50)
[2023-03-14] MEDS ORDERED: BENZ100C18 PO (10:53)
[2023-03-14] MEDS ORDERED: PEN-53 MC (10:53)
[2023-03-14] MEDS ORDERED: INSU100I51 SQ (10:53)
[2023-03-14] MEDS ORDERED: INSU100I88 SQ (10:53)
[2023-03-14] MEDS ORDERED: PRED10TA22 PO (10:53)
[2023-03-14] MEDS ORDERED: DOXY100T2 PO (10:53)
[2023-03-14] MEDS ORDERED: GFCD10B PO (10:53)
--- NOTE | 2023-03-14 10:55 | Discharge Summary ---
Diagnosis/Chief Complaint Date of Admission Mar 10, 2023 at 15:53 Date of Discharge Discharge Date: March 14, 2023 Discharge Diagnosis Assessment: Acute on chronic hypoxic and hypercapneic respiratory failure Acute COPD exacerbation failed outpatient steroid treatment HTN Myasthenia Gravis RA DM Hx PE h/o long COVID RALPH on CPAP Plan: O2 Nebs IV steroids Abx Reason Hospital Visit Discharge Summary Discharge Physical Examination Allergies: Coded Allergies: adhesive tape (Verified Allergy, Intermediate, 01/25/23) BLISTERS AND RAW SKIN almond (Verified Allergy, Intermediate, Abdominal Pain, 01/25/23) Pt states having pain when she eat them. amlodipine (Verified Allergy, Unknown, 01/25/23) erythromycin base (Verified Allergy, Unknown, 01/25/23) Vitals & I&Os Vital Signs Date Time Temp Pulse Resp B/P (MAP) Pulse Ox O2 Delivery O2 Flow Rate FiO2 03/14/23 15:13 36.3 79 20 176/77 96 Nasal Cannula 3.00 03/10/23 17:10 32 General Appearance: Alert, Oriented X3, Cooperative Respiratory: Other (subtle wheezing) Psych/Mental Status: Mental Status NL Hospital Course Was the Problem List Reviewed?: Yes Lengthy course after she was admitted for acute on chronic respiratory failure due to acute on chronic bronchitis after she failed PO prednisone as outpatient and ultimately requiring IV abx and IV steroids along with insulin and anti- hypertensives. Overall she had a slow recovery but she was much improved by time of DC but she did require DC on insulin and DM education initiated and she was DC in improved condition Labs (last 24 hrs) Laboratory Tests 03/10/23 16:29: Blood Gas Puncture Site RR, Blood Gas Patient Temperature 36, Arterial Blood pH 7.36L, Arterial Blood Partial Pressure CO2 46H, Arterial Blood Partial Pressure O2 51L, Arterial Blood HCO3 26, Arterial Blood Total CO2 27.5, Arterial Blood Oxygen Saturation 88L, Arterial Blood Base Excess 1.1, Carlos Test YES-POS, Blood Gas Ventilator Setting NO, Blood Gas Inspired Oxygen 3L 03/10/23 17:36: White Blood Count 6.8, Red Blood Count 3.59L, Hemoglobin 10.8L, Hematocrit 34L, Mean Corpuscular Volume 96, Mean Corpuscular Hemoglobin 30, Mean Corpuscular Hemoglobin Concent 32, Red Cell Distribution Width 15.0H, Platelet Count 274, Mean Platelet Volume 9.9, Immature Granulocyte % (Auto) 2, Neutrophils (%) (Auto) 82H, Lymphocytes (%) (Auto) 11L, Monocytes (%) (Auto) 5, Eosinophils (%) (Auto) 0, Basophils (%) (Auto) 0, Neutrophils # (Auto) 5.5, Lymphocytes # (Auto) 0.8L, Monocytes # (Auto) 0.3, Eosinophils # (Auto) 0.0, Basophils # (Auto) 0.0, Immature Granulocyte # (Auto) 0.1, Sodium Level 136, Potassium Level 4.3, Chloride Level 102, Carbon Dioxide Level 22, Anion Gap 12, Blood Urea Nitrogen 26H, Creatinine 0.87, Estimat Glomerular Filtration Rate 74, BUN/Creatinine Ratio 30, Glucose Level 221H, Calcium Level 8.7, Corrected Calcium 9.0, Total Bilirubin 0.3, Aspartate Amino Transf (AST/SGOT) 13, Alanine Aminotransferase (ALT/SGPT) 19, Alkaline Phosphatase 103, B-Type Natriuretic Peptide 44.0, Total Protein 6.1L, Albumin 3.6 03/10/23 17:38: Lactic Acid Level 1.65 03/10/23 18:59: Influenza Type A Antigen NEGATIVE, Influenza Type B Antigen NEGATIVE, SARS-CoV-2 RNA (RT-PCR) Not Detected 03/10/23 20:56: Glucometer 279H 03/11/23 06:25: White Blood Count 6.7, Red Blood Count 3.67L, Hemoglobin 11.0L, Hematocrit 35, Mean Corpuscular Volume 94, Mean Corpuscular Hemoglobin 30, Mean Corpuscular Hemoglobin Concent 32, Red Cell Distribution Width 15.1H, Platelet Count 224, Mean Platelet Volume 9.8, Immature Granulocyte % (Auto) 1, Neutrophils (%) (Auto) 90H, Lymphocytes (%) (Auto) 7L, Monocytes (%) (Auto) 1, Eosinophils (%) (Auto) 1, Basophils (%) (Auto) 0, Neutrophils # (Auto) 6.0, Lymphocytes # (Auto) 0.5L, Monocytes # (Auto) 0.1, Eosinophils # (Auto) 0.0, Basophils # (Auto) 0.0, Immature Granulocyte # (Auto) 0.1, Neutrophils % (Manual) 92, Lymphocytes % (Manual) 7, Monocytes % (Manual) 1, Blood Morphology Comment NORMAL, Sodium Level 139, Potassium Level 4.2, Chloride Level 105, Carbon Dioxide Level 22, Anion Gap 12, Blood Urea Nitrogen 24H, Creatinine 0.85, Estimat Glomerular Filtration Rate 76, BUN/Creatinine Ratio 28, Glucose Level 294H, Calcium Level 8.9, Corrected Calcium 9.1, Total Bilirubin 0.3, Aspartate Amino Transf (AST/SGOT) 10, Alanine Aminotransferase (ALT/SGPT) 19, Alkaline Phosphatase 112, Total Protein 6.2L, Albumin 3.7 03/11/23 10:38: Glucometer 328H 03/11/23 15:39: Glucometer 284H 03/11/23 20:01: Glucometer 322H 03/12/23 05:28: Glucometer 285H 03/12/23 05:53: White Blood Count 8.9, Red Blood Count 3.62L, Hemoglobin 10.8L, Hematocrit 34L, Mean Corpuscular Volume 93, Mean Corpuscular Hemoglobin 30, Mean Corpuscular Hemoglobin Concent 32, Red Cell Distribution Width 15.7H, Platelet Count 262, Mean Platelet Volume 10.2, Immature Granulocyte % (Auto) 1, Neutrophils (%) (Auto) 89H, Lymphocytes (%) (Auto) 6L, Monocytes (%) (Auto) 3, Eosinophils (%) (Auto) 0, Basophils (%) (Auto) 0, Neutrophils # (Auto) 8.0H, Lymphocytes # (Auto) 0.5L, Monocytes # (Auto) 0.3, Eosinophils # (Auto) 0.0, Basophils # (Auto) 0.0, Immature Granulocyte # (Auto) 0.1, Sodium Level 136, Potassium Level 4.0, Chloride Level 104, Carbon Dioxide Level 24, Anion Gap 8, Blood Urea Nitrogen 25H, Creatinine 0.96, Estimat Glomerular Filtration Rate 66, BUN/Creatinine Ratio 26, Glucose Level 308H, Calcium Level 8.9, Corrected Calcium 9.2, Total Bilirubin 0.3, Aspartate Amino Transf (AST/SGOT) 11, Alanine Aminotransferase (ALT/SGPT) 22, Alkaline Phosphatase 106, Total Protein 6.0L, Albumin 3.6 03/12/23 10:38: Glucometer 323H 03/12/23 15:51: Glucometer 303H 03/12/23 20:21: Glucometer 303H 03/13/23 05:10: White Blood Count 10.0, Red Blood Count 3.59L, Hemoglobin 10.6L, Hematocrit 33L, Mean Corpuscular Volume 93, Mean Corpuscular Hemoglobin 30, Mean Corpuscular Hemoglobin Concent 32, Red Cell Distribution Width 15.9H, Platelet Count 236, Mean Platelet Volume 10.2, Immature Granulocyte % (Auto) 3, Neutrophils (%) (Auto) 88H, Lymphocytes (%) (Auto) 5L, Monocytes (%) (Auto) 5, Eosinophils (%) (Auto) 0, Basophils (%) (Auto) 0, Neutrophils # (Auto) 8.8H, Lymphocytes # (Auto) 0.5L, Monocytes # (Auto) 0.5, Eosinophils # (Auto) 0.0, Basophils # (Auto) 0.0, Immature Granulocyte # (Auto) 0.3H, Sodium Level 138, Potassium Level 4.4, Chloride Level 104, Carbon Dioxide Level 26, Anion Gap 8, Blood Urea Nitrogen 35H, Creatinine 1.16, Estimat Glomerular Filtration Rate 52, BUN/Creatinine Ratio 30, Glucose Level 301H, Calcium Level 8.7, Corrected Calcium 9.1, Total Bilirubin 0.3, Aspartate Amino Transf (AST/SGOT) 11, Alanine Aminotransferase (ALT/SGPT) 22, Alkaline Phosphatase 100, Total Protein 5.6L, Albumin 3.5 03/13/23 05:13: Glucometer 269H 03/13/23 11:00: Glucometer 208H 03/13/23 15:58: Glucometer 298H 03/13/23 21:00: Glucometer 331H 03/14/23 05:03: White Blood Count 10.3, Red Blood Count 3.97, Hemoglobin 11.9, Hematocrit 36, Mean Corpuscular Volume 92, Mean Corpuscular Hemoglobin 30, Mean Corpuscular Hemoglobin Concent 33, Red Cell Distribution Width 15.9H, Platelet Count 278, Mean Platelet Volume 10.1, Immature Granulocyte % (Auto) 5, Neutrophils (%) (Auto) 78H, Lymphocytes (%) (Auto) 9L, Monocytes (%) (Auto) 8, Eosinophils (%) (Auto) 0, Basophils (%) (Auto) 0, Neutrophils # (Auto) 8.1H, Lymphocytes # (Auto) 0.9L, Monocytes # (Auto) 0.8, Eosinophils # (Auto) 0.0, Basophils # (Auto) 0.0, Immature Granulocyte # (Auto) 0.5H, Sodium Level 137, Potassium Leve l 4.7, Chloride Level 101, Carbon Dioxide Level 28, Anion Gap 8, Blood Urea Nitrogen 27H, Creatinine 0.93, Estimat Glomerular Filtration Rate 68, BUN/Creatinine Ratio 29, Glucose Level 209H, Calcium Level 8.9, Corrected Calcium 9.1, Total Bilirubin 0.4, Aspartate Amino Transf (AST/SGOT) 13, Alanine Aminotransferase (ALT/SGPT) 25, Alkaline Phosphatase 105, Total Protein 6.3L, Albumin 3.8 03/14/23 07:04: Blood Gas Puncture Site RIGHT RADIAL, Blood Gas Patient Temperature 36.2, Arterial Blood pH 7.45H, Arterial Blood Partial Pressure CO2 42, Arterial Blood Partial Pressure O2 124H, Arterial Blood HCO3 29H, Arterial Blood Total CO2 30.7, Arterial Blood Oxygen Saturation 100, Arterial Blood Base Excess 5.3H, Carlos Test YES-POS, Blood Gas Ventilator Setting NO, Blood Gas Inspired Oxygen 3L 03/14/23 10:51: Glucometer 193H Microbiology 03/10/23 Blood Culture - Preliminary, Resulted No growth Pending Labs Microbiology Date/Time Source Procedure Growth Status 03/10/23 18:11 Peripheral Rt Ac Blood Culture - Preliminary No growth Resulted 03/10/23 17:36 [place], Right Blood Culture - Preliminary No growth Resulted Laboratory Tests 03/10/23 16:29: Blood Gas Puncture Site RR, Blood Gas Patient Temperature 36, Arterial Blood pH 7.36, Arterial Blood Partial Pressure CO2 46, Arterial Blood Partial Pressure O2 51, Arterial Blood HCO3 26, Arterial Blood Total CO2 27.5, Arterial Blood Oxygen Saturation 88, Arterial Blood Base Excess 1.1, Carlos Test YES-POS, Blood Gas Ventilator Setting NO, Blood Gas Inspired Oxygen 3L 03/10/23 17:36: White Blood Count 6.8, Red Blood Count 3.59, Hemoglobin 10.8, Hematocrit 34, Mean Corpuscular Volume 96, Mean Corpuscular Hemoglobin 30, Mean Corpuscular Hemoglobin Concent 32, Red Cell Distribution Width 15.0, Platelet Count 274, Mean Platelet Volume 9.9, Immature Granulocyte % (Auto) 2, Neutrophils (%) (Auto) 82, Lymphocytes (%) (Auto) 11, Monocytes (%) (Auto) 5, Eosinophils (%) (Auto) 0, Basophils (%) (Auto) 0, Neutrophils # (Auto) 5.5, Lymphocytes # (Auto) 0.8, Monocytes # (Auto) 0.3, Eosinophils # (Auto) 0.0, Basophils # (Auto) 0.0, Immature Granulocyte # (Auto) 0.1, Sodium Level 136, Potassium Level 4.3, Chloride Level 102, Carbon Dioxide Level 22, Anion Gap 12, Blood Urea Nitrogen 26, Creatinine 0.87, Estimat Glomerular Filtration Rate 74, BUN/Creatinine Ratio 30, Glucose Level 221, Calcium Level 8.7, Corrected Calcium 9.0, Total Bilirubin 0.3, Aspartate Amino Transf (AST/SGOT) 13, Alanine Aminotransferase (ALT/SGPT) 19, Alkaline Phosphatase 103, B-Type Natriuretic Peptide 44.0, Total Protein 6.1, Albumin 3.6 03/10/23 17:38: Lactic Acid Level 1.65 03/10/23 18:59: Influenza Type A Antigen NEGATIVE, Influenza Type B Antigen NEGATIVE, SARS-CoV-2 RNA (RT-PCR) Not Detected 03/10/23 20:56: Glucometer 279 03/11/23 06:25: White Blood Count 6.7, Red Blood Count 3.67, Hemoglobin 11.0, Hematocrit 35, Mean Corpuscular Volume 94, Mean Corpuscular Hemoglobin 30, Mean Corpuscular Hemoglobin Concent 32, Red Cell Distribution Width 15.1, Platelet Count 224, Mean Platelet Volume 9.8, Immature Granulocyte % (Auto) 1, Neutrophils (%) (Auto) 90, Lymphocytes (%) (Auto) 7, Monocytes (%) (Auto) 1, Eosinophils (%) (Auto) 1, Basophils (%) (Auto) 0, Neutrophils # (Auto) 6.0, Lymphocytes # (Auto) 0.5, Monocytes # (Auto) 0.1, Eosinophils # (Auto) 0.0, Basophils # (Auto) 0.0, Immature Granulocyte # (Auto) 0.1, Neutrophils % (Manual) 92, Lymphocytes % (Manual) 7, Monocytes % (Manual) 1, Blood Morphology Comment NORMAL, Sodium Level 139, Potassium Level 4.2, Chloride Level 105, Carbon Dioxide Level 22, Anion Gap 12, Blood Urea Nitrogen 24, Creatinine 0.85, Estimat Glomerular Filtration Rate 76, BUN/Creatinine Ratio 28, Glucose Level 294, Calcium Level 8.9, Corrected Calcium 9.1, Total Bilirubin 0.3, Aspartate Amino Transf (AST/SGOT) 10, Alanine Aminotransferase (ALT/SGPT) 19, Alkaline Phosphatase 112, Total Protein 6.2, Albumin 3.7 03/11/23 10:38: Glucometer 328 03/11/23 15:39: Glucometer 284 03/11/23 20:01: Glucometer 322 03/12/23 05:28: Glucometer 285 03/12/23 05:53: White Blood Count 8.9, Red Blood Count 3.62, Hemoglobin 10.8, Hematocrit 34, Mean Corpuscular Volume 93, Mean Corpuscular Hemoglobin 30, Mean Corpuscular Hemoglobin Concent 32, Red Cell Distribution Width 15.7, Platelet Count 262, Mean Platelet Volume 10.2, Immature Granulocyte % (Auto) 1, Neutrophils (%) (Auto) 89, Lymphocytes (%) (Auto) 6, Monocytes (%) (Auto) 3, Eosinophils (%) (Auto) 0, Basophils (%) (Auto) 0, Neutrophils # (Auto) 8.0, Lymphocytes # (Auto) 0.5, Monocytes # (Auto) 0.3, Eosinophils # (Auto) 0.0, Basophils # (Auto) 0.0, Immature Granulocyte # (Auto) 0.1, Sodium Level 136, Potassium Level 4.0, Chloride Level 104, Carbon Dioxide Level 24, Anion Gap 8, Blood Urea Nitrogen 25, Creatinine 0.96, Estimat Glomerular Filtration Rate 66, BUN/Creatinine Ratio 26, Glucose Level 308, Calcium Level 8.9, Corrected Calcium 9.2, Total Bilirubin 0.3, Aspartate Amino Transf (AST/SGOT) 11, Alanine Aminotransferase (ALT/SGPT) 22, Alkaline Phosphatase 106, Total Protein 6.0, Albumin 3.6 03/12/23 10:38: Glucometer 323 03/12/23 15:51: Glucometer 303 03/12/23 20:21: Glucometer 303 03/13/23 05:10: White Blood Count 10.0, Red Blood Count 3.59, Hemoglobin 10.6, Hematocrit 33, Mean Corpuscular Volume 93, Mean Corpuscular Hemoglobin 30, Mean Corpuscular Hemoglobin Concent 32, Red Cell Distribution Width 15.9, Platelet Count 236, Mean Platelet Volume 10.2, Immature Granulocyte % (Auto) 3, Neutrophils (%) (Auto) 88, Lymphocytes (%) (Auto) 5, Monocytes (%) (Auto) 5, Eosinophils (%) (Auto) 0, Basophils (%) (Auto) 0, Neutrophils # (Auto) 8.8, Lymphocytes # (Auto) 0.5, Monocytes # (Auto) 0.5, Eosinophils # (Auto) 0.0, Basophils # (Auto) 0.0, Immature Granulocyte # (Auto) 0.3, Sodium Level 138, Potassium Level 4.4, Chloride Level 104, Carbon Dioxide Level 26, Anion Gap 8, Blood Urea Nitrogen 35, Creatinine 1.16, Estimat Glomerular Filtration Rate 52, BUN/Creatinine Ratio 30, Glucose Level 301, Calcium Level 8.7, Corrected Calcium 9.1, Total Bilirubin 0.3, Aspartate Amino Transf (AST/SGOT) 11, Alanine Aminotransferase (ALT/SGPT) 22, Alkaline Phosphatase 100, Total Protein 5.6, Albumin 3.5 03/13/23 05:13: Glucometer 269 03/13/23 11:00: Glucometer 208 03/13/23 15:58: Glucometer 298 03/13/23 21:00: Glucometer 331 03/14/23 05:03: White Blood Count 10.3, Red Blood Count 3.97, Hemoglobin 11.9, Hematocrit 36, Mean Corpuscular Volume 92, Mean Corpuscular Hemoglobin 30, Mean Corpuscular Hemoglobin Concent 33, Red Cell Distribution Width 15.9, Platelet Count 278, Mean Platelet Volume 10.1, Immature Granulocyte % (Auto) 5, Neutrophils (%) (Auto) 78, Lymphocytes (%) (Auto) 9, Monocytes (%) (Auto) 8, Eosinophils (%) (Auto) 0, Basophils (%) (Auto) 0, Neutrophils # (Auto) 8.1, Lymphocytes # (Auto) 0.9, Monocytes # (Auto) 0.8, Eosinophils # (Auto) 0.0, Basophils # (Auto) 0.0, Immature Granulocyte # (Auto) 0.5, Sodium Level 137, Potassium Level 4.7, Chloride Level 101, Carbon Dioxide Level 28, Anion Gap 8, Blood Urea Nitrogen 27, Creatinine 0.93, Estimat Glomerular Filtration Rate 68, BUN/Creatinine Ratio 29, Glucose Level 209, Calcium Level 8.9, Corrected Calcium 9.1, Total Bilirubin 0.4, Aspartate Amino Transf (AST/SGOT) 13, Alanine Aminotransferase (ALT/SGPT) 25, Alkaline Phosphatase 105, Total Protein 6.3, Albumin 3.8 03/14/23 07:04: Blood Gas Puncture Site RIGHT RADIAL, Blood Gas Patient Temperature 36.2, Ar terial Blood pH 7.45, Arterial Blood Partial Pressure CO2 42, Arterial Blood Partial Pressure O2 124, Arterial Blood HCO3 29, Arterial Blood Total CO2 30.7, Arterial Blood Oxygen Saturation 100, Arterial Blood Base Excess 5.3, Carlos Test YES-POS, Blood Gas Ventilator Setting NO, Blood Gas Inspired Oxygen 3L 03/14/23 10:51: Glucometer 193 Discharge Home Medications: Active Scripts Active Prednisone 10 Mg Tab.ds.pk 10 Mg PO DAILY Take 6 tabs(60mg)daily,decrease by 1 tab(10MG)daily. Advocate Pen Needle (Pen Needle, Diabetic) 33 Gauge X 5/32" Dis.needle Each ACHS NovoLIN R Flexpen (Insulin Regular, Human) 100 Unit/Ml (3 Ml) Insuln.pen 5 Unit SQ AC Levemir Flexpen (Insulin Detemir) 100 Unit/Ml (3 Ml) Insuln.pen 30 Unit SQ BID Robitussin Ac (Codeine) Syrup (Guaifenesin/Codeine Phosphate) 10 Ml Syrp 10 Ml PO Q4H PRN Tessalon Perles (Benzonatate) 100 Mg Capsule 200 Mg PO TID Doxycycline Hyclate 100 Mg Tablet 100 Mg PO BID@,17 Reported Glyburide 5 Mg Tablet 5 Mg PO BID Nac (Acetylcysteine) 600 Mg Capsule 600 Mg PO DAILY Vitamin D3 (Cholecalciferol (Vitamin D3)) 25 Mcg (1000 Unit) Tablet 25 Mcg PO DAILY Ezetimibe 10 Mg Tablet 10 Mg PO DAILY Clonidine HCl 0.1 Mg Tablet 0.1 Mg PO BID Budesonide 0.5 Mg/2 Ml Ampul.neb 0.5 Mg IH BID PRN Breztri Aerosphere Inhaler (Budesonide/Glycopyr/Formoterol) 160 Mcg-9 Mcg-4.8 Mcg/Actuation Hfa.aer.ad 2 Puff IH DAILY Ventolin Hfa (Albuterol Sulfate) 90 Mcg Hfa.aer.ad 2 Puff IH Q4H PRN Iprat-Albut 0.5-3(2.5) mg/3 ml (Ipratropium/Albuterol Sulfate) 0.5 Mg-3 Mg (2.5 Mg Base)/3 Ml Ampul.neb 3 Ml NEB Q4H PRN Azithromycin 250 Mg Tablet 250 Mg PO DAILY Calcium Carbonate 600 Mg Calcium (1500 Mg) Tablet 600 Mg PO BID Fluticasone Propionate 50 Mcg/Actuation Stanton.susp 1 Stanton NSEACH BID Alprazolam 0.5 Mg Tablet 0.5 Mg PO Q8H PRN Imuran (Azathioprine) 50 Mg Tablet 100 Mg PO BID TAKES 2 (50MG) TABS Venlafaxine HCl ER (Venlafaxine HCl) 75 Mg Cap.er.24h 75 Mg PO DAILY Melatonin 10 Mg Tablet 20 Mg PO HS TAKES 2 (10MG) TABS Eliquis (Apixaban) 5 Mg Tablet 5 Mg PO BID Potassium Chloride 20 Meq Tablet.er 20 Meq PO BID Furosemide 40 Mg Tablet 40 Mg PO DAILY PRN All Day Allergy (Cetirizine HCl) 10 Mg Tablet 10 Mg PO BID Losartan Potassium 50 Mg Tablet 50 Mg PO DAILY Citalopram HBr (Citalopram Hydrobromide) 20 Mg Tablet 20 Mg PO DAILY Pantoprazole Sodium 40 Mg Tablet.dr 40 Mg PO DAILY Atorvastatin Calcium 20 Mg Tablet 20 Mg PO DAILY Triamterene-Hctz 37.5-25 mg Cp (Triamterene/Hydrochlorothiazid) 1 Each Capsule 1 Cap PO DAILY Montelukast Sodium 10 Mg Tablet 10 Mg PO DAILY Levothyroxine Sodium 50 Mcg Tablet 50 Mcg PO DAILY Instructions to patient/family Please see electronic discharge instructions given to patient. FABIENNE ZAMORA DO March 14, 2023 10:55
[2023-03-14 12:00] VITALS: BP 176/77
[2023-03-14 15:13] VITALS: BP 176/77
== END 2023-03-14 15:05 | disposition home or self-care (01) | DRG 189 ==
LOC: CSD 15:53 → 4TH 03-11 13:30
PROVIDERS: ADMIT Internal Medicine; ATTEND Internal Medicine
PROC: 5A0935A Assistance with Respiratory Ventilation, Less than 24 Consecutive Hours, High Flow/Velocity Cannula (ICD-10-PCS; principal; 2023-03-12)
PROC: 5A09357 Assistance with Respiratory Ventilation, Less than 24 Consecutive Hours, Continuous Positive Airway Pressure (ICD-10-PCS; 2023-03-12)
DX: J96.21 Acute and chronic respiratory failure with hypoxia (principal); J44.1 Chronic obstructive pulmonary disease with (acute) exacerbation; J44.0 Chronic obstructive pulmonary disease with (acute) lower respiratory infection; Z68.44 Body mass index [BMI] 60.0-69.9, adult; J96.22 Acute and chronic respiratory failure with hypercapnia; G70.00 Myasthenia gravis without (acute) exacerbation; M06.9 Rheumatoid arthritis, unspecified; E11.9 Type 2 diabetes mellitus without complications; Z86.711 Personal history of pulmonary embolism; Z86.16 Personal history of COVID-19; G47.33 Obstructive sleep apnea (adult) (pediatric); J20.9 Acute bronchitis, unspecified; E03.9 Hypothyroidism, unspecified; E78.00 Pure hypercholesterolemia, unspecified; K21.9 Gastro-esophageal reflux disease without esophagitis; E11.40 Type 2 diabetes mellitus with diabetic neuropathy, unspecified; F41.9 Anxiety disorder, unspecified; E66.01 Morbid (severe) obesity due to excess calories; Z20.822 Contact with and (suspected) exposure to COVID-19
CPT/HCPCS: 36415; 36600; 71045; 80053; 82805; 82947; 83605; 83880; 85007; 85025; 85027; 87040; 87636; 87804; 94640; 94760

== ENCOUNTER → 2023-04-13 | Outpatient (CLI) | payer BC ==
[~2023-04-13] MED LIST changes: +BENZ100C18 PO; +INSU100I51 SQ; +INSU100I88 SQ; +PEN-53 MC
== END ==
LOC: LAB 13:02
PROVIDERS: ATTEND Internal Medicine Critical Care Medicine
DX: J44.9 Chronic obstructive pulmonary disease, unspecified (principal); J30.1 Allergic rhinitis due to pollen; K21.9 Gastro-esophageal reflux disease without esophagitis; J96.11 Chronic respiratory failure with hypoxia
CPT/HCPCS: 87070; 87205; 89190

== ENCOUNTER → 2023-04-27 | Outpatient (CLI) | payer BC ==
[~2023-04-27] MED LIST changes: +POTA-330 PO; -POTA-51 PO
[2023-04-27 12:51] VITALS: BP 145/76
== END ==
LOC: SDC 12:14
PROVIDERS: ATTEND Internal Medicine
DX: Z45.2 Encounter for adjustment and management of vascular access device (principal)
CPT/HCPCS: 96523

== ENCOUNTER → 2023-06-01 | Outpatient (CLI) | payer BC, MEDICARE, OTHER ==
[~2023-06-01] VITALS: Ht 167 cm; Wt 172.0 kg
[~2023-06-01] MED LIST changes: +CATHETER FLUSH 10 ML SYR IV PRN; +POTA-185 PO; -POTA10TA PO
[2023-06-01 09:35] VITALS: BP 143/59
== END ==
LOC: SDC 09:10
PROVIDERS: ATTEND Internal Medicine
DX: Z45.2 Encounter for adjustment and management of vascular access device (principal)
CPT/HCPCS: 96523

== ENCOUNTER 2023-07-20 06:46 | Outpatient (CLI) | payer BC, MEDICARE, OTHER ==
[~2023-07-20] VITALS: Wt 172.0 kg
[~2023-07-20 06:46] MED LIST changes: -BUDE0.5A IH; +BUDE0.5A NEB; -CATHETER FLUSH 10 ML SYR IV PRN
[2023-07-20 07:20] VITALS: BP 150/69
== END 2023-07-20 07:15 ==
LOC: SDC 06:46
PROVIDERS: ATTEND Internal Medicine
DX: Z45.2 Encounter for adjustment and management of vascular access device (principal)
CPT/HCPCS: 96523

== ENCOUNTER 2023-07-25 18:04 | Inpatient (IN) | payer BC, MEDICARE, OTHER ==
[~2023-07-25] VITALS: Ht 167 cm; Wt 171.6 kg
[2023-07-25 18:00] VITALS: BP 125/61
--- OUTSIDE RECORDS SUMMARY | 2023-07-25 18:16 | XMS REPORT ---
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 075598947 Problem Rheumatoid arthritis involving ankle, unspecified laterality, unspecified rheumatoid factor presence M06.9 Active 199059361 Problem Obstructive sleep apnea of adult G47.33 Active [id number] ALLERGIES No Information ENCOUNTERS Encounter Location Date Diagnosis [facility] [address] [id number] Nov, Sore throat J02.9 ; Acute non-recurrent maxillary sinusitis J01.00 and BMI 45.0-49.9, adult Z68.42 [facility] [id number] [place] [id number] 20 Feb, 2018 Cough R05 ; Post-nasal drainage R09.82 and BMI 50.0-59.9, adult Z68.43 [facility] [id number] [place] [id number] March, Acute frontal sinusitis, recurrence not specified J01.10 and Subacute maxillary sinusitis J01.00 [facility] [id number] [place] [id number] Jul, Encounter for immunization Z23 [facility] [address] [address] Aug, Encounter for immunization Z23 [facility] [address] [address] 2015 [facility] [address] [id number] Feb, [facility] [address] [id number] [address] 10 Aug, 2014 [facility] [id number] [place] [address] Aug, [facility] [id number] [place] [address] Nov, [facility] [id number] [address] Nov, [facility] [id number] [place] [address] Aug, [facility] [id number] [place] [address] Aug, [facility] [id number] [place] [address] Nov, [facility] [id number] [place] [address] Sep, [facility] [address] [id number] [address] Sep, IMMUNIZATIONS No Known Immunizations SOCIAL HISTORY Never Assessed REASON FOR VISIT EMR-[facility] PLAN OF CARE VITAL SIGNS MEDICATIONS No Known Medications RESULTS No Results PROCEDURES No Known procedures INSTRUCTIONS MEDICATIONS ADMINISTERED No Known Medications MEDICAL (GENERAL) HISTORY Type Description Date Medical History Rheumtoid arthritis Medical History obesity Surgical History No Surgical history information
--- OUTSIDE RECORDS SUMMARY | 2023-07-25 18:16 | XMS REPORT | Clinical Summary ---
Author Author [facility] Organization [facility] Address Unknown Phone Unavailable Care Team Providers Care Correctional Treatment Specialist Name Role Phone Shayla Jimenez DO PCP [phone] Source Comments Some departments are not documenting in the electronic medical record. If you do not see the information that you expected, contact Release of Information in the Health Information Management department at [phone] for further assistance in locating additional records.[facility] Allergies Active Allergy Reactions Criticality Noted Date Comments Adhesive Tape (Rosins) RASH,BLISTERS High 08/01/2020 Erythromycin RASH Medium 08/01/2020 Amlodipine HEADACHE High 08/01/2020 CAUSES HYPERTENSION Medications Medication Sig Dispensed Refills Start Date End Date Status albuterol sulfate (PROAIR HFA) 90 mcg/actuation HFA aerosol inhaler Inhale 1-2 puffs by mouth into the lungs every 4 hours as needed for Wheezing or Shortness of Breath. Shake well before use. 0 Active atorvastatin (LIPITOR) 20 mg tablet Take 20 mg by mouth daily. 0 Active cloNIDine (CATAPRESS) 0.1 mg tablet Take 0.1 mg by mouth three times daily. 0 Active fluticasone propionate (FLONASE) 50 mcg/actuation nasal spray, suspension Apply 1 spray to each nostril as directed daily. Shake bottle gently before using. 0 Active levothyroxine (SYNTHROID) 50 mcg tablet Take 50 mcg by mouth daily 30 minutes before breakfast. 0 Active glucosamine 500 mg tab Take 1,000 mg by mouth daily with breakfast. 0 Active cholecalciferol (VITAMIN D-3) 1,000 units tablet Take 1,000 Units by mouth daily. 0 Active triamterene-hydroch lorothiazide (DYAZIDE) 37.5-25 mg capsule Take 1 capsule by mouth every morning. 0 Active calcium carbonate/vitamin D-3 (OSCAL-500+D) 1250 mg/200 unit tablet Take one tablet by mouth twice daily. Calcium Carb 1250mg delivers 500mg elemental Ca 180 tablet 0 08/10/2020 Active apixaban (ELIQUIS) 5 mg tablet Take 5 mg by mouth twice daily. 0 Active azaTHIOprine (IMURAN) 50 mg tablet Take 50 mg by mouth twice daily. [address] (PROTONIX) 40 mg tablet TAKE ONE TABLET BY MOUTH DAILY 30 tablet 0 08/04/2021 Active fluticasone furoate-vilanterol( +) (BREO ELLIPTA) 200-25 mcg inhalation disk Inhale 1 puff by mouth into the lungs daily. 0 Active cetirizine (ZYRTEC) 10 mg tablet Take 10 mg by mouth twice daily. 0 Active venlafaxine XR (EFFEXOR XR) 75 mg capsule Take 75 mg by mouth daily. Take with food. 0 Active ezetimibe (ZETIA) 10 mg tablet Take 10 mg by mouth daily. 0 Active furosemide (LASIX) 40 mg tablet Take 40 mg by mouth every 48 hours as needed. 0 Active montelukast (SINGULAIR) 10 mg tablet Take 10 mg by mouth at bedtime daily. 0 Active potassium chloride SR (K-DUR) 20 mEq tablet Take 1 tablet by mouth twice daily. Take with a meal and a full glass of water. 0 Active losartan (COZAAR) 50 mg tablet Take 50 mg by mouth daily. 0 Active ALPRAZolam (XANAX) 0.5 mg tablet Take 0.5 mg by mouth daily as needed for Anxiety. 0 Active glyBURIDE (DIABETA) 1.25 mg tablet Take 1.25 mg by mouth twice daily with meals. Take with food. 0 Active tiotropium bromide (SPIRIVA RESPIMAT) 1.25 mcg/actuation inhaler Inhale 2 puffs by mouth into the lungs twice daily. 0 Active melatonin (MELATIN) 5 mg tablet Take 10 mg by mouth at bedtime daily. 0 Active citalopram (CELEXA) 20 mg tablet Take one tablet by mouth daily. 90 tablet 0 08/23/2021 Active predniSONE (DELTASONE) 5 mg tabletIndications:M yasthenia gravis (HCC) Take two tablets by mouth daily with breakfast. 5 mg daily 60 tablet 5 12/14/2021 Active azithromycin (ZITHROMAX) 250 mg tablet Take 250 mg by mouth daily. 0 04/11/2022 Active budesonide-formoter ol HFA (SYMBICORT) 160-4.5 mcg/actuation aerosol inhaler Inhale by mouth into the lungs. 0 02/27/2013 Active acetylcysteine (R-IYHKQW-M-CYSTEIN E MISC) 600 mg daily. 0 Active Active Problems Problem Noted Date Diagnosed Date Myasthenia gravis 08/15/2021 Diplopia 08/01/2020 MG with exacerbation (myasthenia gravis) 020 Slurred speech 08/01/2020 Hypertension Morbid obesity Rheumatoid arthritis Hypothyroidism COVID-19 ruled out by laboratory testing Hypoxemia Immunizations Name Administration Dates Next Due Flu Vaccine =>6 Months Quadrivalent PF Medical History Medical History Date Comments Arthritis Asthma Hypertension Pre-diabetes Rheumatoid arthritis (HCC) Morbid obesity (HCC) Dyslipidemia Hypothyroidism Covid-19 09/29/2020 Myasthenia gravis (HCC) 08/01/2020 Social History Tobacco Use Types Packs/Day Years Used Date Smoking Tobacco: Never Smokeless Tobacco: Never Tobacco Cessation:Counseling Given: Not Answered Alcohol Use Standard Drinks/Week Comments Not Currently 0 (1 standard drink = 0.6 oz pure alcohol) last ETOH was at her brother's wake 2 years ag PHQ-2 Answer Date Recorded PHQ-2 Score 0 10/19/2022 Alcohol Use Answer Date Recorded Alcohol Use No Male: 9+ ounces (15+ Standard Drinks) per week T hreshold Not on file Female: 4.8+ ounces (8+ Standard Drinks) per wee k Threshold 0 Sex and Gender Information Value Date Recorded Sex Assigned at Female 08/05/2020 9:47 AM CDT Gender Identity Female 08/05/2020 9:47 AM CDT Sexual Orientation Not on file Obstetrics History Last Filed Vital Signs Vital Sign Reading Time Taken Comments Blood Pressure 185/79 10/19/2022 2:31 PM [employer] Pulse 90 10/19/2022 2:31 PM [employer] Temperature 36.8 C (98.2 F) 09/22/2021 12:[address] Respiratory Rate 22 10/19/2022 2:31 PM [employer] Oxygen Saturation 95% 10/19/2022 2:31 PM [employer] 3L Inhaled Oxygen Concentration - - Weight 106.6 kg (235 lb) 10/19/2022 2:31 PM [employer] Height 165.1 cm (5' 5") 10/19/2022 2:31 PM [employer] Body Mass Index 39.11 10/19/2022 2:31 PM [employer] Plan of Treatment Health Maintenance Due Date Last Done Comments HIV SCREENING 1973 HEPATITIS C SCREENING 02/15/1976 PHYSICAL (COMPREHENSIVE) EXAM 02/15/1976 SHINGLES RECOMBINANT VACCINE (1 of 2) 1977 BREAST CANCER SCREENING 1998 COLORECTAL CANCER SCREENING 2003 COVID-19 VACCINE (4 - Modern a risk series) 11/30/2021 10/05/2021, 02/18/2021, 01/21/2021 DEPRESSION SCREENING 11/14/2022 10/19/2022 OSTEOPOROSIS SCREENING/MONITORING 2023 PNEUMOCOCCAL VACCINE 65+ YRS (1 - PCV) 2023 INFLUENZA VACCINE (#1) 2023 , 08/11/2020, 09/07/2018 DTAP/TDAP VACCINES (4 - Td or Tdap) 06/13/2028 06/13/2018, 05/16/2018, 09/28/2012 Goals Goal Patient Goal Type Associated Problems Recent Progress Patient-Stated? Author Recover from illness Hospital Yes Amiarani Borrero, RN Note: To be able to get stronger and get back to work Resume work Hospital On track( 021 3:27 PM CDT) No Reba Kaur, RN Note: Be at [employer] Tuesday and work on tuesday Medical Devices Implanted Type Area Shoe Stitcher Device Identifier Shelf Expiration Date Model / Serial / Lot Kit Catheter 20cm 13.5fr Mahurkar Elite Straight Extension - Sna Implanted:Qty: 1 on 08/02/2020 by Aguilar Johnson MD at [facility] Right: Neck [employer] [id number] 11/27/2024 [id number] / NA / [id number] Kit Catheter 16cm 13.5fr Mahurkar Elite Straight Extension - Sn/A Implanted:Qty: 1 on 08/15/2021 by Marc Almanza MD at [facility] Right: Neck [employer] [id number] 12/26/2025 [id number] / N/A / [id number] Advance Directives Documents on File Type Date Recorded Patient Field Account Manager Expl anation Advance Directive/DPOA 08/17/2021 Advance Directive/DPOA 08/17/2021 Latest Code Status on File Code Status Date Activated Date Inactivated Comments Full Code 08/15/2021 12:23 AM 08/22/2021 3:50 PM Question Answer Comments Provider has discussed Code Status w/Patient or Family? Yes Code Status History Code Status Date Activated Date Inactivated Comments Full Code 08/01/2020 5:25 PM 08/10/2020 3:39 PM Question Answer Comments Provider has discussed Code Status w/Patient or Family? Yes Full Code 08/01/2020 5:14 PM 08/01/2020 5:24 PM Question Answer Comments Provider has discussed Code Status w/Patient or Family? No, more discussion needed Full Code 08/01/2020 4:03 PM 08/01/2020 5:14 PM Question Answer Comments Provider has discussed Code Status w/Patient or Family? Yes Care Teams Correctional Treatment Specialist Relationship Specialty Start Date End Date Shayla Jimenez DO [address] [place] [id number] PCP - General Internal Medicine 08/01/20
--- OUTSIDE RECORDS SUMMARY | 2023-07-25 18:17 | XMS REPORT ---
Author Author Roselia Rivera [facility] Organization [facility] Address [address] [place] [address] Care Team Providers Care Research Program Assistant Name Role Phone Nicole KAYLEIGH Unavailable PROBLEMS Type Condition ICD9-CM Code [id number] Code Onset Dates Condition Status SNOMED Code Problem Morbid exogenous obesity E66.01 Active 315410735 Problem Rheumatoid arthritis involving ankle, unspecified laterality, unspecified rheumatoid factor presence M06.9 Active 225184956 Problem Obstructive sleep apnea of adult G47.33 Active 2027480417350 ALLERGIES No Information ENCOUNTERS Encounter Location Date Diagnosis [facility] [address] [id number] Nov, Sore throat J02.9 ; Acute non-recurrent maxillary sinusitis J01.00 and BMI 45.0-49.9, adult Z68.42 [facility] [address] [id number] 20 Feb, 2018 Cough R05 ; Post-nasal drainage R09.82 and BMI 50.0-59.9, adult Z68.43 [facility] [id number] [place] [id number] March, Acute frontal sinusitis, recurrence not specified J01.10 and Subacute maxillary sinusitis J01.00 [facility] [id number] [place] [id number] Jul, Encounter for immunization Z23 [facility] [place] [address] [phone] 07 Aug, 2015 Encounter for immunization Z23 [facility] [place] [address] [phone] 2015 [facility] [place] [id number] [address] Feb, [facility] [place] [id number] [address] Aug, [facility] [place] [address] [facility] [id number] [address] Aug, [facility] [place] [address] [address] Nov, [facility] [place] [address] [facility] [id number] [address] Nov, [facility] [place] [address] [address] Aug, [facility] [place] [address] [address] Aug, [facility] [place] [address] [address] Nov, [facility] [place] [id number] [address] Sep, [facility] [place] [id number] [address] Sep, IMMUNIZATIONS No Known Immunizations SOCIAL HISTORY Never Assessed REASON FOR VISIT PLAN OF CARE VITAL SIGNS MEDICATIONS No Known Medications RESULTS No Results PROCEDURES No Known procedures INSTRUCTIONS MEDICATIONS ADMINISTERED No Known Medications MEDICAL (GENERAL) HISTORY Type Description Date Medical History Rheumtoid arthritis Medical History obesity Surgical History No Surgical history information
--- OUTSIDE RECORDS SUMMARY | 2023-07-25 18:17 | XMS REPORT ---
Author Author Roselia Hermosillo Do ctor Organization [facility] Address Unknown Phone Unavailable Care Team Providers Care Service Order Dispatcher Name Role Phone Migration, Doctor Unavailable Unavailable PROBLEMS Type Condition ICD9-CM Code [id number] Code Onset Dates Condition Status SNOMED Code Problem Morbid exogenous obesity E66.01 Active 122617156 Problem Rheumatoid arthritis involving ankle, unspecified laterality, unspecified rheumatoid factor presence M06.9 Active 732766132 Problem Obstructive sleep apnea of adult G47.33 Active 4821130187699 ALLERGIES Substance Reaction Event Type Date Status Norvasc Unknown Drug Allergy Feb, Active Erythromycin Base Unknown Drug Allergy Feb, Act camilo ENCOUNTERS Encounter Location Date Diagnosis [facility] [id number] [place] [id number] Nov, Sore throat J02.9 ; Acute non-recurrent maxillary sinusitis J01.00 and BMI 45.0-49.9, adult Z68.42 [facility] [id number] [place] [id number] Feb, Cough R05 ; Post-nasal drainage R09.82 and BMI 50.0-59.9, adult Z68.43 [facility] [address] [id number] March, Acute frontal sinusitis, recurrence not specified J01.10 and Subacute maxillary sinusitis J01.00 [facility] [address] [phone] Jul, Encounter for immunization Z23 [facility] [id number] [place] [address] Aug, Encounter for immunization Z23 [facility] [id number] [place] [address] Feb, [facility] [id number] [address] Feb, [facility] [address] [address] Aug, [facility] [address] [address] Aug, [facility] [address], [place] [address] Nov, [facility] [address], [place] [address] Nov, [facility] [address], [place] [address] Aug, [facility] [address], [place] [address] Aug, [facility] [address], [place] [address] Nov, [facility] [address], [place] [address] Sep, [facility] [address], [place] [address] Sep, IMMUNIZATIONS No Known Immunizations SOCIAL HISTORY Never Assessed REASON FOR VISIT [place] [place]AN OF CARE VITAL SIGNS MEDICATIONS Medication Instructions Dosage Frequency Start Date End Date Duration Status Augmentin 875-125 mg 1 tablet by Oral route 2 times per day for 10 day(s) Nov, Active Lisinopril 10 mg take 1 tablet (10 mg) by oral route once daily Nov, Active Lipitor 40 mg take 1 tablet (40 mg) by oral route once daily Nov, Active Symbicort 160-4.5 mcg/actuation inhale 2 puffs by inhalation route 2 times per day in the morning and evening Nov, Active Ipratropium-Alb uterol 0.5 mg-3 mg(2.5 mg base)/3 mL prn Nov, Active Flonase 50 mcg/actuation 1 sprays by Nasal route 2 times per day in each nostril Nov, Active RESULTS No Results PROCEDURES No Known procedures INSTRUCTIONS MEDICATIONS ADMINISTERED No Known Medications MEDICAL (GENERAL) HISTORY Type Description Date Medical History Rheumtoid arthritis Medical History obesity Surgical History No Surgical history information
--- OUTSIDE RECORDS SUMMARY | 2023-07-25 18:18 | XMS REPORT ---
Author Author Count Includes [facility] ter of [facility] ter of [facility] Address Unknown Phone Unavailable Care Team Providers Care Loom Winder Tender Name Role Phone KAYLEIGH Rivera Unavailable PROBLEMS Type Condition ICD9-CM Code [id number] Code Onset Dates Condition Status SNOMED Code Notes Problem Morbid exogenous obesity E66.01 Active 236102296 Problem Rheumatoid arthritis involving ankle, unspecified laterality, unspecified rheumatoid factor presence M06.9 Active 496937319 Problem Obstructive sleep apnea of adult G47.33 Active 8283897640990 sleep apnea ALLERGIES Allergen (clinical drug ingredient) Drug/Non Drug Allergy documented on EMR Reaction Allergy Type Onset Date Status amlodipine Norvasc(NDC Code:[address]-25) Unknown Drug Allergy Active erythromycin Erythromycin Base(ND Code:[address]-59) Unknown Drug Allergy Active ENCOUNTERS from 1960 to 2020-08-19 Encounter Location Date Provider Diagnosis [facility] [address] [facility] [id number] [address] Sep, KAYLEIGH Rivera IMMUNIZATIONS Vaccine Route Administration Date Status PRIVATE FLULAVAL QUAD 0.5ML (6 MO AND UP) 2018 IM Intramuscular Aug 28, 2019 Administered FLUARIX QUAD P-FREE 3 AND UP .50 2015 IM Intramuscular Aug 13, 2016 Administered FLUARIX QUAD (3 & UP)-GSK-2014 IM Intramuscular Oct 0 2014 Administered DEPO MEDROL 80 MG/ML IM Intramuscular Nov 24, 2018 Adm inistered influenza IIV3 (history) Unknown Aug 23, 2014 Pen ding influenza IIV3 (history) Unknown Aug 31, 2013 Kar mendieta influenza IIV3 (history) Unknown Sep 28, 2012 Kar mendieta PRIVATE TDAP (ADACEL) Unknown Sep 28, 2012 Blanca fernandez SOCIAL HISTORY Tobacco Use: Social History Observation Description Date Details (start date - stop date) Never Smoker Sex Assigned At : Social History Observation Description Sex Assigned At Unknown Tobacco Use/Smoking Question Answer Notes Are you a never smoker REASON FOR REFERRAL No Information MEDICATIONS Medication SIG (Take, Route, Frequency, Duration) Start Date End Date Status Breo Ellipta Active Lisinopril 10 mg take 1 tablet (10 mg ) by oral route once daily Nov, Active Ipratropium-Albuterol 0.5 mg-3 mg(2.5 mg base)/3 mL prn Nov, Active Lipitor 40 mg take 1 tablet (40 mg ) by oral route once daily Nov, Active Spiriva HandiHaler Active Amoxicillin-Pot Clavulanate 875-125 MG 1 tablet Orally every 12 hrs for 10 day(s) Nov, Active Flonase 50 mcg/actuation 1 sprays by Luis al route 2 times per day in each nostril Nov, Active Singulair Active Humira Active Methotrexate Active Simi Active Zyrtec Allergy Active REASON FOR VISIT No Information MEDICAL (GENERAL) HISTORY Type Description Date Medical History Rheumtoid arthritis Medical History obesity Surgical History No Surgical history information MENTAL STATUS No Information PLAN OF TREATMENT Medication Medication Name Sig Start Date Stop Date Amoxicillin-Pot Clavulanate 875-125 MG 1 tablet Orally every 12 hrs for 10 day(s) Nov, Insurance Providers Payer Name Payer Address Payer Phone Insured Name Patient Relationship to Insured Coverage Start Date Coverage End Date [place] [address] [place] [address] Qian Maldonado [id number]: [id number]
--- OUTSIDE RECORDS SUMMARY | 2023-07-25 18:18 | XMS REPORT ---
Author Author [facility] ter of [facility] ter [facility] Address Unknown Phone Unavailable Care Team Providers Care Project Admin Name Role Phone TRICIAASHLEY Unavailable PROBLEMS Type Condition ICD9-CM Code [id number] Code Onset Dates Condition Status W/U Status Risk SNOMED Code Notes Problem Chronic obstructive pulmonary disease with (acute) exacerbation J44.1 confirmed 144600105 Problem Myasthenia gravis without (acute) exacerbation G70.00 confirmed 2794830 011 9103 Problem Obstructive sleep apnea of adult G47.33 4323473591 103 sleep apnea Problem Morbid exogenous obesity E66.01 confirmed 690631728 Problem Rheumatoid arthritis involving ankle, unspecified laterality, unspecified rheumatoid factor presence M06.9 confirmed 136459042 ALLERGIES Allergen (clinical drug ingredient) Drug/Non Drug Allergy documented on EMR Reaction Allergy Type Onset Date Status amlodipine Norvasc(NDC Code:[address]-19) Unknown Drug Allergy Active erythromycin Erythromycin Base(ND C Code:[address]-37) Unknown Drug Allergy Active ENCOUNTERS from 1960 to 2022-12-21 Encounter Location Date Provider Diagnosis [facility] [address] [facility] [id number] [address] Jan, ASHLEY CLARKE Encounter for immunization Z23 IMMUNIZATIONS Vaccine Route Administration Date Status 2nd Dose HRSA MODERNA, COVID -19, 0.5mL IM Intramuscular February 18, 2021 Administered 1st Dose HRSA MODERNA, COVID -19, 0.5mL IM Intramuscular January 21, 2021 Administered PRIVATE FLULAVAL QUAD 0.5ML (6 MO AND UP) 2019 IM Intramuscular Aug 28, 2019 Administered FLUARIX QUAD P-FREE 3 AND UP .50 2016 IM Intramuscular Aug 13, 2016 Administered FLUARIX QUAD (3 & UP)-GSK-2015 IM Intramuscular Aug Administered influenza IIV3 (history) Unknown Aug 23, 2014 Kar mendieta 1st Booster MODERNA Bivalent , COVID-19, 0.5mL IM Intramuscular Nov 27, 2022 Administered influenza IIV3 (history) Unknown Aug 31, 2013 Kar mendieta influenza IIV3 (history) Unknown Sep 28, 2012 Kar mendieta PRIVATE TDAP (ADACEL) Unknown Sep 28, 2012 Blanca fernandez SOCIAL HISTORY Sex Assigned At : Social History Observation Description Sex Assigned At Unknown PHQ2 Question Answer Notes In the last 2 weeks, how oft en have you had little interest or pleasure in doing things? Not at all In the last 2 weeks, how oft en have you been feeling down, depressed, or hopeless? Not at all Total PHQ2 Score 0 REASON FOR REFERRAL No Information MEDICATIONS Medication SIG (Take, Route, Frequency, Duration) Notes Start Date End Date Status Lipitor 40 mg take 1 tablet (40 mg ) by oral route once daily [facility] Nov, Active Triamterene 50 MG 1 capsule Orally Onc e a day Active Singulair Active Vitamin D Active Spiriva HandiHaler A ctive Potassium Active Ipratropium-Albuterol 0.5 mg-3 mg(2.5 mg base)/3 mL prn [facility] Nov, Active Flonase 50 mcg/actuation 1 sprays by Nasal route 2 times per day in each nostril [facility] Nov, Active Ondansetron HCl 4 MG 1 tablet Orally aris ry 8 hours, PRN for 5 days Oct, Active ZyrTEC Allergy Activ e Lisinopril 10 mg take 1 tablet (10 mg ) by oral route once daily [facility] Nov, Active predniSONE 5 MG/5ML 5 mL Orally Once a day Active Calcium Active REASON FOR VISIT COVID-19 Vaccine Dose 1 MEDICAL (GENERAL) HISTORY Type Description Date Medical History Rheumtoid arthritis Medical History obesity Surgical History No know Surgical history Hospitalization History Bronchitis 05/05 MENTAL STATUS No Information ASSESSMENTS Encounter Date Diagnosis Assessment Notes Treatment Notes Treatment Clinical Notes Jan, Encounter for immunization (ICD-10 - Z23) PLAN OF TREATMENT Medication Medication Name Sig Start Date Stop Date Ondansetron HCl 4 MG 1 tablet Orally aris ry 8 hours, PRN for 5 days Oct, Insurance Providers Payer Name Payer Address Payer Phone Insured Name Patient Relationship to Insured Coverage Start Date Coverage End Date Subscriber Number Group Number [place] [address] [facility] [id number] [phone] Roselia Maldonado Spouse - patient is the spouse of the insured [id number] MEDICATIONS ADMINISTERED Medication Instructions Date of Administration Dosag e DEPO MEDROL 80 MG/ML Nov, 120 mg
--- OUTSIDE RECORDS SUMMARY | 2023-07-25 18:18 | XMS REPORT ---
Author Author Roselia Rivera [facility] Address [address] [place] [address] Care Team Providers Care Draft Roller Picker Name Role Phone NicoleKAYLEIGH Unavailable PROBLEMS Type Condition ICD9-CM Code AHR29-OU Code Onset Dates Condition Status SNOMED Code Problem Morbid exogenous obesity E66.01 Active 987075792 Problem Rheumatoid arthritis involving ankle, unspecified laterality, unspecified rheumatoid factor presence M06.9 Active 679879111 Problem Obstructive sleep apnea of adult G47.33 Active 7297042908044 ALLERGIES No Information ENCOUNTERS Encounter Location Date Diagnosis [facility] [id number] [place] [phone] Aug, Encounter for immunization Z23 [facility] [id number] [place] [id number] Nov, Sore throat J02.9 ; Acute non-recurrent maxillary sinusitis J01.00 and BMI 45.0-49.9, adult Z68.42 [facility] [address] [id number] Feb, Cough R05 ; Post-nasal drainage R09.82 and BMI 50.0-59.9, adult Z68.43 [facility] [id number] [place] [id number] March, Acute frontal sinusitis, recurrence not specified J01.10 and Subacute maxillary sinusitis J01.00 [facility] [id number] [place] [id number] Jul, Encounter for immunization Z23 [facility] [id number] [place] [phone] Aug, Encounter for immunization Z23 [facility] [address] [facility] [id number] [address] 2015 [facility] [address] [facility] [id number], [place] [address] Feb, [facility] [address] [facility] [id number], [place] [address] Aug, [facility] [address] [facility] [id number], [place] [address] Aug, [facility] [address] [facility] [id number], [place] [address] Nov, [facility] [address] [address] Nov, [facility] [address] [address] Aug, [facility] [address] [address] Aug, [facility] [address] [address] Nov, [facility] [address] [address] Sep, [facility] [id number] [address] Sep, IMMUNIZATIONS No Known Immunizations SOCIAL HISTORY Never Assessed REASON FOR VISIT PLAN OF CARE VITAL SIGNS Height 66 in 2013-11-23 Weight 354 lbs 2013-11-23 Temperature 98.3 degrees Fahrenheit Heart Rate 92 bpm 2013-11-23 Respiratory Rate 18 2013-11-23 Blood pressure systolic 130 mmHg Blood pressure diastolic 88 mmHg 2013-11 MEDICATIONS Unknown Medications RESULTS No Results PROCEDURES No Known procedures INSTRUCTIONS MEDICATIONS ADMINISTERED No Known Medications MEDICAL (GENERAL) HISTORY Type Description Date Medical History Rheumtoid arthritis Medical History obesity Surgical History No Surgical history information
--- OUTSIDE RECORDS SUMMARY | 2023-07-25 18:18 | XMS REPORT ---
Author Author [facility] Address Unknown Phone Unavailable Care Team Providers Care Staff Development Educator Name Role Phone ASHLEY CLARKE Unavailable PROBLEMS Type Condition ICD9-CM Code AQY69-RZ Code Onset Dates Condition Status SNOMED Code Notes Problem Morbid exogenous obesity E66.01 Active 441790792 Problem Rheumatoid arthritis involving ankle, unspecified laterality, unspecified rheumatoid factor presence M06.9 Active 367773314 Problem Obstructive sleep apnea of adult G47.33 Active 0694617903835 sleep apnea ALLERGIES Allergen (clinical drug ingredient) Drug/Non Drug Allergy documented on EMR Reaction Allergy Type Onset Date Status amlodipine Norvasc(NDC Code:[address]-25) Unknown Drug Allergy Active erythromycin Erythromycin Base(ND C Code:[address]-05) Unknown Drug Allergy Active ENCOUNTERS from 1960 to 2020-07-09 Encounter Location Date Provider Diagnosis [facility] [address] [facility] [id number] [address] Nov, ASHLEY CLARKE IMMUNIZATIONS Vaccine Route Administration Date Status influenza IIV3 (history) Unknown Sep 28, 2012 Pen anam influenza IIV3 (history) Unknown Aug 31, 2013 Kar mendieta DEPO MEDROL 80 MG/ML IM Intramuscular Nov 24, 2018 Adm inistered PRIVATE FLULAVAL QUAD 0.5ML (6 MO AND UP) 2018 IM Intramuscular Aug 28, 2019 Administered FLUARIX QUAD P-FREE 3 AND UP .50 2015 IM Intramuscular Aug 13, 2016 Administered FLUARIX QUAD (3 & UP)-GSK-2014 IM Intramuscular Aug Administered influenza IIV3 (history) Unknown Aug 23, 2014 Pen anam PRIVATE TDAP (ADACEL) Unknown Sep 28, 2012 [...] Start Date Coverage End Date [place] [address] [facility] [address] Qian Maldonado [id number]
--- OUTSIDE RECORDS SUMMARY | 2023-07-25 18:18 | XMS REPORT ---
Author Author Roselia Rivera [facility] Address [address] [place] [address] Care Team Providers Care Marketing Assistant Retail Division Name Role Phone NicoleKAYLEIGH Unavailable PROBLEMS Type Condition ICD9-CM Code HAG11-HC Code Onset Dates Condition Status SNOMED Code Problem Morbid exogenous obesity E66.01 Active 309270741 Problem Rheumatoid arthritis involving ankle, unspecified laterality, unspecified rheumatoid factor presence M06.9 Active 970767514 Problem Obstructive sleep apnea of adult G47.33 Active 7232124264521 ALLERGIES No Information ENCOUNTERS Encounter Location Date Diagnosis [facility] [id number] [place] [address] Aug, Encounter for immunization Z23 [facility] [id number] [place] [id number] Nov, Sore throat J02.9 ; Acute non-recurrent maxillary sinusitis J01.00 and BMI 45.0-49.9, adult Z68.42 [facility] [address] [id number] Feb, Cough R05 ; Post-nasal drainage R09.82 and BMI 50.0-59.9, adult Z68.43 [facility] [id number] [place] [id number] March, Acute frontal sinusitis, recurrence not specified J01.10 and Subacute maxillary sinusitis J01.00 [facility] [id number] [place] [id number] Jul, Encounter for immunization Z23 [facility] [id number] [place] [phone] Aug, Encounter for immunization Z23 [facility] [address] [facility] [id number] [address] 2015 [facility] [address] [facility] [id number] [address] Feb, [facility] [address] [facility] [id number] [place] [address] Aug, [facility] [address] [facility] [id number] [place] [address] Aug, [facility] [address] [facility] [id number] [place] [address] Nov, [facility] [address] [facility] [id number] [place] [address] Nov, [facility] [address] [address] Aug, [facility] [address] [address] Aug, [facility] [id number] [address] Nov, [facility] [address] [address] Sep, [facility] [id number] [address] Sep, IMMUNIZATIONS No Known Immunizations SOCIAL HISTORY Never Assessed REASON FOR VISIT PLAN OF CARE VITAL SIGNS MEDICATIONS Unknown Medications RESULTS No Results PROCEDURES No Known procedures INSTRUCTIONS MEDICATIONS ADMINISTERED No Known Medications MEDICAL (GENERAL) HISTORY Type Description Date Medical History Rheumtoid arthritis Medical History obesity Surgical History No Surgical history information
[2023-07-25] MEDS ORDERED: inSUlin (REGULAR) HUMAN 1 UNIT/0.01 ML (CHARGE PER UNIT) SC PRN (18:30)
[2023-07-25] MEDS ORDERED: cloNIDine 0.1 MG TABLET PO PRN (18:30)
[2023-07-25] MEDS ORDERED: ONDANSETRON 4 MG ORAL DISSOLVE TABLET PO PRN (18:30)
[2023-07-25] MEDS ORDERED: ACETAMINOPHEN 325 MG TABLET PO PRN (18:30)
[2023-07-25] MEDS ORDERED: HYDROmorphone INJECTION 2 MG/ML VIAL IV PRN (18:30)
[2023-07-25] MEDS ORDERED: LACTULOSE SYRUP 10GM/15ML 30ML UDC PO PRN (18:30)
[2023-07-25] MEDS ORDERED: PATIENT MAY USE OWN MEDS, ALL PO SCH (18:30)
[2023-07-25] MEDS ORDERED: diphenhydrAMINE INJ 50 MG/ML VIAL IVP PRN (18:30)
[2023-07-25] MEDS ORDERED: MILK OF MAGNESIA 400 MG/5 ML 30 ML UDC PO PRN (18:30)
[2023-07-25] MEDS ORDERED: diphenhydrAMINE 25 MG TABLET PO PRN (18:30)
[2023-07-25] MEDS ORDERED: MELATONIN 3 MG TABLET PO PRN (18:30)
[2023-07-25] MEDS ORDERED: ANTACID SUSPENSION 30 ML UDC PO PRN (18:30)
[2023-07-25] MEDS ORDERED: oxyCODONE IMMEDIATE RELEASE 5 MG TABLET PO PRN (18:30)
[2023-07-25] MEDS ORDERED: CALCIUM CARBONATE 500 MG CHEW TABLET PO PRN (18:30)
[2023-07-25] MEDS ORDERED: BISACODYL 10 MG SUPPOSITORY PR PRN (18:30)
[2023-07-25] MEDS ORDERED: ONDANSETRON INJECTION 4 MG/2 ML (SDV) IV PRN (18:30)
[2023-07-25 18:57] LABS: BASOPHILS % (AUTO) 1 % (0-10); EOSINOPHILS # (AUTO) 0.1 10^3/uL (0.0-0.3); EOSINOPHILS % (AUTO) 2 % (0-10); HEMATOCRIT 35 % (35-52); HEMOGLOBIN 11.3 g/dL (11.5-16.0); LYMPHOCYTES % (AUTO) 16 % (12-44); MEAN CORPUSCULAR HEMOGLOBIN 30 pg (25-34); MEAN CORPUSCULAR HGB CONC 32 g/dL (32-36); MEAN CORPUSCULAR VOLUME 94 fL (80-99); MEAN PLATELET VOLUME 9.9 fL (9.0-12.2); MONOCYTES # (AUTO) 0.4 10^3/uL (0.0-1.0); MONOCYTES % (AUTO) 7 % (0-12); NEUTROPHILS # (AUTO) 4.8 10^3/uL (1.8-7.8); NEUTROPHILS % (AUTO) 75 % (42-75); PLATELET COUNT 261 10^3/uL (130-400); WHITE BLOOD COUNT 6.4 10^3/uL (4.3-11.0)
[2023-07-25] MEDS ORDERED: RT-Ipratropium/Albuterol NEB 3 ML VIAL INH PRN (19:30)
--- NOTE | 2023-07-25 19:42 | Diagnostic Imaging Report ---
INDICATION: COPD. Compared 03/10/2023. FINDINGS: The heart is enlarged but unchanged. The lungs themselves clear. No effusion or pneumothorax. Left IJ catheter at the lower SVC. IMPRESSION: Stable cardiomegaly. Clear lungs. Central line in good position. Dictated by: Dictated on workstation # [id number]
[2023-07-25 19:57] VITALS: BP 126/63
[2023-07-25] MEDS: DOCUSATE SODIUM 100 MG CAPSULE PO SCH (19:59)
[2023-07-25] MEDS: APIXABAN 5 MG TABLET PO SCH (19:59)
[2023-07-25] MEDS: CEFEPIME INJECTION 1,000 MG in NS (IVPB) 50 ML 50 ML IV SCH ×2 (19:59→21:10)
[2023-07-25] MEDS: SENNOSIDES 8.6 MG TABLET PO SCH (19:59)
[2023-07-25] MEDS: inSUlin ASPART 1 UNIT/0.01 ML (PER UNIT) SC SCH (20:00)
[2023-07-25] MEDS: DOXYCYCLINE INJECTION 100 MG in NS (IVPB) 100 ML 100 ML IV SCH (20:10)
[2023-07-25] MEDS: inSUlin DETERMIR 1 UNIT/0.01 ML (CHARGE PER UNIT) SQ SCH (20:15)
[2023-07-25 20:19] LABS: ALBUMIN 3.5 GM/DL (3.2-4.5); BILIRUBIN,TOTAL 0.3 MG/DL (0.1-1.0); CREATININE SERUM 0.93 MG/DL (0.60-1.30); POTASSIUM 4.3 MMOL/L (3.6-5.0); TOTAL PROTEIN 6.3 GM/DL (6.4-8.2)
[2023-07-25] MEDS: RT-BUDESONIDE NEBS 0.5 MG/2ML VIAL INH SCH (21:57)
[2023-07-25] MEDS: RT-Ipratropium/Albuterol NEB 3 ML VIAL INH SCH (21:57)
[2023-07-25 22:00] LABS: ABG BASE EXCESS 1.6 MMOL/L (-2.5-2.5); ABG OXYGEN SATURATION 99 % (94-100); ABG PCO2 47 MMHG (35-45); ABG PH 7.37 (7.37-7.43); ABG PO2 121 MMHG (79-93); ABG TCO2 27.8 MMOL/L (21.0-31.0); ALLENS TEST YES-POS
[2023-07-25 22:01] LABS: INSPIRED O2 3L; VENTILATOR NO
[2023-07-25] MEDS: methylPREDNISolone INJ 40 MG/ML VIAL IV SCH (23:28)
[2023-07-25 23:40] VITALS: BP 148/69
[2023-07-26] MEDS: CEFEPIME INJECTION 1,000 MG in NS (IVPB) 50 ML 50 ML IV SCH ×4 (00:27→18:06)
[2023-07-26] MEDS: RT-Ipratropium/Albuterol NEB 3 ML VIAL INH SCH ×6 (02:03→22:59)
[2023-07-26 03:32] VITALS: BP 166/84
[2023-07-26] MEDS: methylPREDNISolone INJ 40 MG/ML VIAL IV SCH (05:04)
[2023-07-26 05:13] LABS: BASOPHILS % (AUTO) 0 % (0-10); EOSINOPHILS % (AUTO) 0 % (0-10); HEMATOCRIT 35 % (35-52); HEMOGLOBIN 10.9 g/dL (11.5-16.0); LYMPHOCYTES # (AUTO) 0.2 10^3/uL (1.0-4.0); LYMPHOCYTES % (AUTO) 3 % (12-44); MEAN CORPUSCULAR HEMOGLOBIN 30 pg (25-34); MEAN CORPUSCULAR HGB CONC 32 g/dL (32-36); MEAN CORPUSCULAR VOLUME 94 fL (80-99); MEAN PLATELET VOLUME 9.7 fL (9.0-12.2); MONOCYTES # (AUTO) 0.1 10^3/uL (0.0-1.0); MONOCYTES % (AUTO) 1 % (0-12); NEUTROPHILS # (AUTO) 6.1 10^3/uL (1.8-7.8); NEUTROPHILS % (AUTO) 95 % (42-75); PLATELET COUNT 237 10^3/uL (130-400); WHITE BLOOD COUNT 6.5 10^3/uL (4.3-11.0)
[2023-07-26 05:44] LABS: ALBUMIN 3.6 GM/DL (3.2-4.5); BILIRUBIN,TOTAL 0.3 MG/DL (0.1-1.0); CALCIUM 9.1 MG/DL (8.5-10.1); CREATININE SERUM 0.95 MG/DL (0.60-1.30); POTASSIUM 4.2 MMOL/L (3.6-5.0); TOTAL PROTEIN 6.4 GM/DL (6.4-8.2)
[2023-07-26 05:50] LABS: LYMPHOCYTES % (MANUAL) 2 %; MONOCYTES % (MANUAL) 1 %; NEUTROPHILS % (MANUAL) 97 %; RBC MORPH NORMAL
[2023-07-26] MEDS: inSUlin ASPART 1 UNIT/0.01 ML (PER UNIT) SC SCH ×4 (05:50→21:10)
[2023-07-26 07:27] VITALS: BP 148/66
[2023-07-26] MEDS: RT-BUDESONIDE NEBS 0.5 MG/2ML VIAL INH SCH ×2 (07:31→22:59)
--- NOTE | 2023-07-26 09:51 | History & Physical ---
KWADWOSANDEE 07/26/23 0950: History of Present Illness History of Present Illness Reason for visit/HPI 63yo female with past history of chronic respiratory failure and COPD presented to clinic on 07/25 with increasing shortness of breath, cough, and coughing up green sputum. Pt is normally on 2L of O2 NC at home, but had to increase to 3L due to SOB. She tried nebulizer tx at home and was still having trouble breathing. Exertion made sx worse. Pt denied fever, chills, CP, and palpitations. Pt endorsed wheezing. Date of Admission Jul 25, 2023 at 18:04 Date Seen by a Provider: Jul 26, 2023 Time Seen by a Provider: 07:35 I consulted on this patient on 07/26/23 09:45 Attending Physician Shayla Zamora DO Admitting Physician Admitting Physician: Shayla Zamora DO Attending Physician: Shayla Zamora DO Consult Allergies and Home Medications Allergies Coded Allergies: adhesive tape (Verified Allergy, Intermediate, 01/25/23) BLISTERS AND RAW SKIN almond (Verified Allergy, Intermediate, Abdominal Pain, 01/25/23) Pt states having pain when she eat them. amlodipine (Verified Allergy, Unknown, 01/25/23) erythromycin base (Verified Allergy, Unknown, 01/25/23) Patient Home Medication List Acetaminophen/Diphenhydramine (Tylenol Pm Ex-Strength Caplet) 500 Mg-25 Mg Tablet, 2 EACH PO HS, (Reported) Entered as Reported by: NITO BREWER on 07/26/23 1150 Last Action: Reviewed Albuterol Sulfate (Ventolin Hfa) 90 Mcg Hfa.aer.ad, 2 PUFF IH Q4H PRN for SHORTNESS OF BREATH, (Reported) Entered as Reported by: MANGO DE LA TORRE on 04/26/22 0938 Last Action: Reviewed Alprazolam (Alprazolam) 0.5 Mg Tablet, 0.5 MG PO Q8H PRN for ANXIETY, (Reported) Entered as Reported by: NITO BREWER on 10/16/21 1125 Last Action: Reviewed Apixaban (Eliquis) 5 Mg Tablet, 5 MG PO BID, (Reported) Entered as Reported by: NITO BREWER on 01/27/21 0947 Last Action: Reviewed Atorvastatin Calcium (Atorvastatin Calcium) 20 Mg Tablet, 20 MG PO DAILY, (Reported) Entered as Reported by: NE GARRETT on 03/31/18 0950 Last Action: Reviewed Azathioprine (Imuran) 50 Mg Tablet, 100 MG PO BID, (Reported) Entered as Reported by: NITO BREWER on 10/16/21 1125 Last Action: Reviewed Azithromycin (Azithromycin) 250 Mg Tablet, 250 MG PO DAILY, (Reported) Entered as Reported by: MANGO DE LA TORRE on 04/26/22 0927 Last Action: Reviewed Budesonide (Budesonide) 0.5 Mg/2 Ml Ampul.neb, 0.5 MG NEB BID, (Reported) Entered as Reported by: NITO BREWER on 12/30/22 135 Last Action: Reviewed Budesonide/Glycopyr/Formoterol (Breztri Aerosphere Inhaler) 160 Mcg-9 Mcg-4.8 Mcg/Actuation Hfa.aer.ad, 2 PUFF IH BID, (Reported) Entered as Reported by: MANGO DE LA TORRE on 04/26/22 0955 Last Action: Reviewed Cetirizine HCl (All Day Allergy) 10 Mg Tablet, 10 MG PO DAILY, (Reported) Entered as Reported by: NITO BREWER on 10/06/20 1532 Last Action: Reviewed Cholecalciferol (Vitamin D3) (Vitamin D3) 25 Mcg (1000 Unit) Tablet, 25 MCG PO DAILY, (Reported) Entered as Reported by: NITO BREWER on 02/11/23 105 Last Action: Reviewed Clonidine HCl (Clonidine HCl) 0.1 Mg Tablet, 0.1 MG PO BID, (Reported) Entered as Reported by: NITO BREWER on 12/30/22 135 Last Action: Reviewed Duloxetine HCl (Duloxetine HCl) 30 Mg Capsule.dr, 30 MG PO DAILY, (Reported) Entered as Reported by: NITO BREWER on 07/26/23 1150 Last Action: Reviewed Ezetimibe (Ezetimibe) 10 Mg Tablet, 10 MG PO DAILY, (Reported) Entered as Reported by: NITO BREWER on 02/11/23 105 Last Action: Reviewed Fluticasone Propionate (Fluticasone Propionate) 50 Mcg/Actuation Dell.susp, 1 SPRAY NSEACH BID, (Reported) Entered as Reported by: NITO BREWER on 10/16/21 1125 Last Action: Reviewed Furosemide (Furosemide) 40 Mg Tablet, 40 MG PO DAILY PRN for FLUID RETENTION, (Reported) Entered as Reported by: MARIIA ALEJANDRO on 12/25/20 1838 Last Action: Reviewed Glyburide (Glyburide) 5 Mg Tablet, 5 MG PO BID, (Reported) Entered as Reported by: NITO BREWER on 03/11/23 1155 Last Action: Reviewed Insulin Detemir (Levemir Flexpen) 100 Unit/Ml (3 Ml) Insuln.pen, 20 UNIT SQ BID, (Reported) Entered as Reported by: NITO BREWER on 07/26/23 115 Last Action: Reviewed Insulin Regular, Human (NovoLIN R Flexpen) 100 Unit/Ml (3 Ml) Insuln.pen, 5 UNIT SQ AC PRN for BS>200, (Reported) Entered as Reported by: NITO BREWER on 07/26/23 115 Last Action: Reviewed Ipratropium/Albuterol Sulfate (Iprat-Albut 0.5-3(2.5) mg/3 ml) 0.5 Mg-3 Mg (2.5 Mg Base)/3 Ml Ampul.neb, 3 ML NEB Q4H PRN for SHORTNESS OF BREATH, (Reported) Entered as Reported by: MANGO DE LA TORRE on 04/26/22 0938 Last Action: Reviewed Levothyroxine Sodium (Levothyroxine Sodium) 50 Mcg Tablet, 50 MCG PO DAILY, (Reported) Entered as Reported by: VIVEK ROJAS on 07/31/15 1558 Last Action: Reviewed Losartan Potassium (Losartan Potassium) 50 Mg Tablet, 50 MG PO DAILY, (Reported) Entered as Reported by: NITO BREWER on 10/06/20 1530 Last Action: Reviewed Melatonin (Melatonin) 10 Mg Tablet, 20 MG PO HS, (Reported) Entered as Reported by: NITO BREWER on 04/29/21 1240 Last Action: Reviewed Montelukast Sodium (Montelukast Sodium) 10 Mg Tablet, 10 MG PO DAILY, (Reported) Entered as Reported by: NE GARRETT on 03/31/18 0950 Last Action: Reviewed Pantoprazole Sodium (Pantoprazole Sodium) 40 Mg Tablet.dr, 40 MG PO BID, (Reported) Entered as Reported by: NITO BREWER on 08/12/20 0919 Last Action: Reviewed Potassium Chloride (Potassium Chloride) 20 Meq Tablet.er, 20 MEQ PO BID, (Reported) Entered as Reported by: NITO BREWER on 01/27/21 0947 Last Action: Reviewed Prednisone (Prednisone) 5 Mg Tablet, 5 MG PO DAILY, (Reported) Entered as Reported by: NITO BREWER on 07/26/23 1150 Last Action: Reviewed Semaglutide (Ozempic) 1 Mg/0.75 Ml (4 Mg/3 Ml) Pen.injctr, 1 MG SQ SUN, (Reported) Entered as Reported by: NITO BREWER on 07/26/23 1150 Last Action: Reviewed Triamterene/Hydrochlorothiazid (Triamterene-Hctz 37.5-25 mg Cp) 1 Each Capsule, 1 CAP PO DAILY, (Reported) Entered as Reported by: NE GARRETT on 03/31/18 0950 Last Action: Reviewed Venlafaxine HCl (Venlafaxine HCl ER) 75 Mg Cap.er.24h, 75 MG PO DAILY, (Reported) Entered as Reported by: NITO BREWER on 06/05/21 1345 Last Action: Reviewed [Hyper-Jasen] 3.5% NEBU, 4 ML NEB BID, (Reported) Entered as Reported by: NITO BREWER on 07/26/23 115 Last Action: Reviewed Discontinued Medications Acetylcysteine (Nac) 600 Mg Capsule, 600 MG PO DAILY, (Reported) Discontinued Reason: No Longer Taking Entered as Reported by: NITO BREWER on 02/11/23 1059 Last Action: Discontinued Benzonatate (Tessalon Perles) 100 Mg Capsule, 200 MG PO TID Discontinued Reason: No Longer Taking Prescribed by: SHAYLA ZAMORA on 03/14/23 1053 Last Action: Discontinued Calcium Carbonate (Calcium Carbonate) 600 Mg Calcium (1500 Mg) Tablet, 600 MG PO BID, (Reported) Discontinued Reason: No Longer Taking Entered as Reported by: NITO BREWER on 10/16/21 1135 Last Action: Discontinued Citalopram Hydrobromide (Citalopram HBr) 20 Mg Tablet, 20 MG PO DAILY, (Reported) Discontinued Reason: No Longer Taking Entered as Reported by: NITO BREWER on 10/06/20 1530 Last Action: Discontinued Doxycycline Hyclate (Doxycycline Hyclate) 100 Mg Tablet, 100 MG PO BID@07,17 Discontinued Reason: No Longer Taking Prescribed by: SHAYLA ZAMORA on 03/14/231052 Last Action: Discontinued Guaifenesin/Codeine (Robitussin Ac (Codeine) Syrup) 10 Ml Syrp, 10 ML PO Q4H PRN for COUGH Discontinued Reason: No Longer Taking Prescribed by: SHAYLA ZAMORA on 03/14/231053 Last Action: Discontinued Insulin Detemir (Levemir Flexpen) 100 Unit/Ml (3 Ml) Insuln.pen, 30 UNIT SQ BID Discontinued Reason: Duplicate Order Prescribed by: SHAYLA ZAMORA on 03/14/231052 Last Action: Discontinued Insulin Regular, Human (NovoLIN R Flexpen) 100 Unit/Ml (3 Ml) Insuln.pen, 5 UNIT SQ AC Discontinued Reason: Duplicate Order Prescribed by: SHAYLA ZAMORA on 03/14/231052 Last Action: Discontinued Pen Needle, Diabetic (Advocate Pen Needle) 33 Gauge X 5/32" Dis.needle, EACH [facility] ACHS, (DME) Discontinued Reason: No Longer Taking Prescribed by: SHAYLA ZAMORA on 03/14/231052 Last Action: Discontinued Prednisone (Prednisone) 10 Mg Tab.ds.pk, 10 MG PO DAILY Discontinued Reason: No Longer Taking Prescribed by: SHAYLA ZAMORA on 03/14/231052 Last Action: Discontinued Past Tvpauiu-Dybhvm-Iytbud Hx Patient Social History Tobacco Use?: No Smoking Status: Never a Smoker Use of E-Cig and/or Vaping dev: No Substance use?: No Alcohol type: Hard Liquor Alcohol Frequency: Rarely Pt feels they are or have been: No Immunizations Up To Date Date of Influenza Vaccine: Aug 14, 2022 First/Initial COVID19 Vaccinat: 12/04 Second COVID19 Vaccination Yousuf: 01/04 Tetanus Booster (TDap): More Than 5 Years Hepatitis A: No Hepatitis B: No PED Vaccines UTD: Yes Date of Pneumonia Vaccine: Jan 04, 2018 Seasonal Allergies Seasonal Allergies: Yes Current Status status: No Communicates: Verbally Primary Language: Prydeinig Preferred Spoken Language: Prydeinig Is interpretation needed?: No Past Medical History Surgeries: Lumpectomy, Orthopedic Pneumonia, Sleep Apnea, COPD Currently Using CPAP: Yes Currently Using BIPAP: No Coronary Artery Disease, High Cholesterol, Hypertension Neuropathy [employer]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 Sexually Transmitted Disease: No Bladder Infection Gastroesophageal Reflux Arthritis, Rheumatoid Arthritis Hypothyroidsim, Diabetes, Non-Insulin dep Cataract, Tinnitis Loss of Vision: Denies Hearing Impairment: Denies Anxiety Blood Disorders: No Adverse Reaction/Blood Tranf: No Dx Myasthenia Gravis 07/2020 Family Medical History Alcoholism G8 BROTHER G8 SISTER Alzheimer's disease 19 MOTHER Arthritis 19 FATHER Asthma G8 SISTER Cardiovascular disease 19 FATHER Cataracts 19 FATHER Coronary thrombosis 19 FATHER Deafness or hearing loss SON Diabetes mellitus 19 FATHER G8 SISTER G8 SISTER Drug abuse G8 SISTER Hypertension 19 FATHER G8 SISTER G8 SISTER Kidney disease 19 FATHER Respiratory disorder G8 SISTER G8 SISTER Seizure disorder SON Severe allergy SON Heart Disease, Diabetes, Hypertension Review of Systems Constitutional: No chills, No fever Respiratory: cough, dyspnea on exertion, short of breath, wheezing Cardiovascular: No chest pain, No palpitations Physical Exam Vital Signs Vital Signs - First Documented 07/25/23 18:00 Temp 37.0 Pulse 90 Resp 20 B/P (MAP) 125/61 (82) Pulse Ox 96 O2 Delivery Nasal Cannula O2 Flow Rate 3.00 Capillary Refill : Height, Weight, BMI Height: 5'6.00" Weight: 297lbs. 0.0oz. 134.424057qi; 61.67 BMI Method:Stated General Appearance: Mild Distress, Obese Respiratory: Wheezing (mild b/l with expiration and inspiration) Cardiovascular: Regular Rate, Rhythm, No Gallop, No Murmur Skin: Normal Color, Warm/Dry Assessment/Plan Assessment and Plan Assessment 1. Acute on Chronic Respiratory Failure 2. COPD Exacerbation 3. Bronchitis Plan 1. Steroids 2. O2 3. Nebulizer 4. Empiric Antibiotics 5. Cardio consult Admission Diagnosis Acute on Chronic Respiratory Failure Admission Status: Observation SHAYLA ZAMORA DO 07/26/23 2002: History of Present Illness History of Present Illness Reason for visit/HPI CC: Acute on chronic respiratory failure HPI: This is a 63yoWF clinic patient of [facility] who has h/o severe asthma and RALPH on CPAP and O2 dependence with morbid obesity along with insulin dependent DM, hypothyroidism, HTN malignant type with HLP and myasthenia gravis with rheumatoid arthritis who presented to my clinic with worsened dyspnea and productive sputum. She sees Dr Somers and Dr Martinez along with Dr Wadlen and [facility] specialist Allergies and Home Medications Allergies Coded Allergies: adhesive tape (Verified Allergy, Intermediate, 01/25/23) BLISTERS AND RAW SKIN almond (Verified Allergy, Intermediate, Abdominal Pain, 01/25/23) Pt states having pain when she eat them. amlodipine (Verified Allergy, Unknown, 01/25/23) erythromycin base (Verified Allergy, Unknown, 01/25/23) Patient Home Medication List Home Medication List Reviewed: Yes Acetaminophen/Diphenhydramine (Tylenol Pm Ex-Strength Caplet) 500 Mg-25 Mg Tablet, 2 EACH PO HS, (Reported) Entered as Reported by: NITO BREWER on 07/26/23 1150 Last Action: Reviewed Albuterol Sulfate (Ventolin Hfa) 90 Mcg Hfa.aer.ad, 2 PUFF IH Q4H PRN for SHORTNESS OF BREATH, (Reported) Entered as Reported by: MANGO DE LA TORRE on 04/26/22 0938 Last Action: Reviewed Alprazolam (Alprazolam) 0.5 Mg Tablet, 0.5 MG PO Q8H PRN for ANXIETY, (Reported) Entered as Reported by: NITO BREWER on 10/16/21 1125 Last Action: Reviewed Apixaban (Eliquis) 5 Mg Tablet, 5 MG PO BID, (Reported) Entered as Reported by: NITO BREWER on 01/27/21 0947 Last Action: Reviewed Atorvastatin Calcium (Atorvastatin Calcium) 20 Mg Tablet, 20 MG PO DAILY, (Reported) Entered as Reported by: NE GARRETT on 03/31/18 0950 Last Action: Reviewed Azathioprine (Imuran) 50 Mg Tablet, 100 MG PO BID, (Reported) Entered as Reported by: NITO BREWER on 10/16/21 1125 Last Action: Reviewed Azithromycin (Azithromycin) 250 Mg Tablet, 250 MG PO DAILY, (Reported) Entered as Reported by: MANGO DE LA TORRE on 04/26/22 0927 Last Action: Reviewed Budesonide (Budesonide) 0.5 Mg/2 Ml Ampul.neb, 0.5 MG NEB BID, (Reported) Entered as Reported by: NITO BREWER on 12/30/22 1357 Last Action: Reviewed Budesonide/Glycopyr/Formoterol (Breztri Aerosphere Inhaler) 160 Mcg-9 Mcg-4.8 Mcg/Actuation Hfa.aer.ad, 2 PUFF IH BID, (Reported) Entered as Reported by: MANGO DE LA TORRE on 04/26/22 0955 Last Action: Reviewed Cetirizine HCl (All Day Allergy) 10 Mg Tablet, 10 MG PO DAILY, (Reported) Entered as Reported by: NITO BREWER on 10/06/20 1532 Last Action: Reviewed Cholecalciferol (Vitamin D3) (Vitamin D3) 25 Mcg (1000 Unit) Tablet, 25 MCG PO DAILY, (Reported) Entered as Reported by: NITO BREWER on 02/11/23 105 Last Action: Reviewed Clonidine HCl (Clonidine HCl) 0.1 Mg Tablet, 0.1 MG PO BID, (Reported) Entered as Reported by: NITO BREWER on 12/30/22 1357 Last Action: Reviewed Duloxetine HCl (Duloxetine HCl) 30 Mg Capsule.dr, 30 MG PO DAILY, (Reported) Entered as Reported by: NITO BREWER on 07/26/23 115 Last Action: Reviewed Ezetimibe (Ezetimibe) 10 Mg Tablet, 10 MG PO DAILY, (Reported) Entered as Reported by: NITO BREWER on 02/11/23 1059 Last Action: Reviewed Fluticasone Propionate (Fluticasone Propionate) 50 Mcg/Actuation Dell.susp, 1 SPRAY NSEACH BID, (Reported) Entered as Reported by: NITO BREWER on 10/16/21 1125 Last Action: Reviewed Furosemide (Furosemide) 40 Mg Tablet, 40 MG PO DAILY PRN for FLUID RETENTION, (Reported) Entered as Reported by: MARIIA ALEJANDRO on 12/25/20 1838 Last Action: Reviewed Glyburide (Glyburide) 5 Mg Tablet, 5 MG PO BID, (Reported) Entered as Reported by: NITO BREWER on 03/11/23 1155 Last Action: Reviewed Insulin Detemir (Levemir Flexpen) 100 Unit/Ml (3 Ml) Insuln.pen, 20 UNIT SQ BID, (Reported) Entered as Reported by: NITO BREWER on 07/26/23 1150 Last Action: Reviewed Insulin Regular, Human (NovoLIN R Flexpen) 100 Unit/Ml (3 Ml) Insuln.pen, 5 UNIT SQ AC PRN for BS>200, (Reported) Entered as Reported by: NITO BREWER on 07/26/23 115 Last Action: Reviewed Ipratropium/Albuterol Sulfate (Iprat-Albut 0.5-3(2.5) mg/3 ml) 0.5 Mg-3 Mg (2.5 Mg Base)/3 Ml Ampul.neb, 3 ML NEB Q4H PRN for SHORTNESS OF BREATH, (Reported) Entered as Reported by: MANGO DE LA TORRE on 04/26/22 0938 Last Action: Reviewed Levothyroxine Sodium (Levothyroxine Sodium) 50 Mcg Tablet, 50 MCG PO DAILY, (Reported) Entered as Reported by: VIVEK ROJAS on 07/31/15 1558 Last Action: Reviewed Losartan Potassium (Losartan Potassium) 50 Mg Tablet, 50 MG PO DAILY, (Reported) Entered as Reported by: NITO BREWER on 10/06/20 1530 Last Action: Reviewed Melatonin (Melatonin) 10 Mg Tablet, 20 MG PO HS, (Reported) Entered as Reported by: NITO BREWER on 04/29/21 1240 Last Action: Reviewed Montelukast Sodium (Montelukast Sodium) 10 Mg Tablet, 10 MG PO DAILY, (Reported) Entered as Reported by: NE GARRETT on 03/31/18 0950 Last Action: Reviewed Pantoprazole Sodium (Pantoprazole Sodium) 40 Mg Tablet.dr, 40 MG PO BID, (Reported) Entered as Reported by: NITO BREWER on 08/12/20 0919 Last Action: Reviewed Potassium Chloride (Potassium Chloride) 20 Meq Tablet.er, 20 MEQ PO BID, (Reported) Entered as Reported by: NITO BREWER on 01/27/21 0947 Last Action: Reviewed Prednisone (Prednisone) 5 Mg Tablet, 5 MG PO DAILY, (Reported) Entered as Reported by: NITO BREWER on 07/26/23 115 Last Action: Reviewed Semaglutide (Ozempic) 1 Mg/0.75 Ml (4 Mg/3 Ml) Pen.injctr, 1 MG SQ SUN, (Reported) Entered as Reported by: NITO BREWER on 07/26/23 115 Last Action: Reviewed Triamterene/Hydrochlorothiazid (Triamterene-Hctz 37.5-25 mg Cp) 1 Each Capsule, 1 CAP PO DAILY, (Reported) Entered as Reported by: NE GARRETT on 03/31/18 0950 Last Action: Reviewed Venlafaxine HCl (Venlafaxine HCl ER) 75 Mg Cap.er.24h, 75 MG PO DAILY, (Reported) Entered as Reported by: NTIO BREWER on 06/05/21 1345 Last Action: Reviewed [Hyper-Jasen] 3.5% NEBU, 4 ML NEB BID, (Reported) Entered as Reported by: NITO BREWER on 07/26/23 1150 Last Action: Reviewed Discontinued Medications Acetylcysteine (Nac) 600 Mg Capsule, 600 MG PO DAILY, (Reported) Discontinued Reason: No Longer Taking Entered as Reported by: NITO BREWER on 02/11/23 1059 Last Action: Discontinued Benzonatate (Tessalon Perles) 100 Mg Capsule, 200 MG PO TID Discontinued Reason: No Longer Taking Prescribed by: SHAYLA ZAMORA on 03/14/23 105 Last Action: Discontinued Calcium Carbonate (Calcium Carbonate) 600 Mg Calcium (1500 Mg) Tablet, 600 MG PO BID, (Reported) Discontinued Reason: No Longer Taking Entered as Reported by: NITO BREWER on 10/16/21 1135 Last Action: Discontinued Citalopram Hydrobromide (Citalopram HBr) 20 Mg Tablet, 20 MG PO DAILY, (Reported) Discontinued Reason: No Longer Taking Entered as Reported by: NITO BREWER on 10/06/20 1530 Last Action: Discontinued Doxycycline Hyclate (Doxycycline Hyclate) 100 Mg Tablet, 100 MG PO BID@07,17 Discontinued Reason: No Longer Taking Prescribed by: SHAYLA ZAMORA on 03/14/23 105 Last Action: Discontinued Guaifenesin/Codeine (Robitussin Ac (Codeine) Syrup) 10 Ml Syrp, 10 ML PO Q4H PRN for COUGH Discontinued Reason: No Longer Taking Prescribed by: SHAYLA ZAMORA on 03/14/23 1054 Last Action: Discontinued Insulin Detemir (Levemir Flexpen) 100 Unit/Ml (3 Ml) Insuln.pen, 30 UNIT SQ BID Discontinued Reason: Duplicate Order Prescribed by: SHAYLA ZAMORA on 03/14/23 105 Last Action: Discontinued Insulin Regular, Human (NovoLIN R Flexpen) 100 Unit/Ml (3 Ml) Insuln.pen, 5 UNIT SQ AC Discontinued Reason: Duplicate Order Prescribed by: SHAYLA ZAMORA on 03/14/231052 Last Action: Discontinued Pen Needle, Diabetic (Advocate Pen Needle) 33 Gauge X 5/32" Dis.needle, EACH MC ACHS, (DME) Discontinued Reason: No Longer Taking Prescribed by: SHAYLA ZAMORA on 03/14/231052 Last Action: Discontinued Prednisone (Prednisone) 10 Mg Tab.ds.pk, 10 MG PO DAILY Discontinued Reason: No Longer Taking Prescribed by: SHAYLA ZAMORA on 03/14/231052 Last Action: Discontinued Past Esueuft-Khhgom-Cdepeh Hx Patient Social History Marrital Status: 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/Student: retired Smoking Status: Never a Smoker Use of E-Cig and/or Vaping dev: No Past Medical History Asthma, Pneumonia, Chronic Bronchitis, Pulmonary Embolism, COPD High Cholesterol, Hypertension Neuropathy Gastroesophageal Reflux Rheumatoid Arthritis Diabetes, Insulin dep, Hypothyroidsim Family Medical History Alcoholism G8 BROTHER G8 SISTER Alzheimer's disease 19 MOTHER Arthritis 19 FATHER Asthma G8 SISTER Cardiovascular disease 19 FATHER Cataracts 19 FATHER Coronary thrombosis 19 FATHER Deafness or hearing loss SON Diabetes mellitus 19 FATHER G8 SISTER G8 SISTER Drug abuse G8 SISTER Hypertension 19 FATHER G8 SISTER G8 SISTER Kidney disease 19 FATHER Respiratory disorder G8 SISTER G8 SISTER Seizure disorder SON Severe allergy SON Review of Systems Constitutional: see HPI, malaise, weakness Respiratory: dyspnea on exertion, short of breath, wheezing Physical Exam General Appearance: WD/WN, Anxious, Chronically ill, Mild Distress, Obese Respiratory: No Accessory Muscle Use, Wheezing (mild b/l with expiration and inspiration) Cardiovascular: Regular Rate, Rhythm Assessment/Plan Assessment and Plan Assessment: Acute on chronic hypoxic and hypercapneic respiratory failure Acute COPD exacerbation failed outpatient steroid treatment HTN Myasthenia Gravis RA DM Hx PE h/o long COVID RALPH on CPAP Plan: IV steroids and IV abx Dr Somers consult Admission Diagnosis Admission Status: Inpatient Order (span 2 midnights) Reason for Inpatient Admission: resp failure Supervisory-Addendum Brief Verification & Attestation Participated in pt care: history, MDM, physical Personally performed: exam, history, MDM, supervision of care Care discussed with: Medical Student Procedures: n/a Results interpretation: Verified all documentation Verification and Attestation of Medical Student E/M Service A medical student performed and documented this service in my presence. I reviewed and verified all information documented by the medical student and made modifications to such information, when appropriate. I personally performed the physical exam and medical decision making. Shayla Zamora, Jul 26, 2023,20:07 SANDEE BURKETT Jul 26, 2023 09:50 SHAYLA ZAMORA DO Jul 26, 2023 20:02
[2023-07-26] MEDS: inSUlin DETERMIR 1 UNIT/0.01 ML (CHARGE PER UNIT) SQ SCH ×3 (09:53→22:04)
[2023-07-26] MEDS: dexAMETHasone INJ 4 MG/ML SDV IV SCH ×2 (09:54→21:10)
[2023-07-26] MEDS: APIXABAN 5 MG TABLET PO SCH ×2 (09:54→22:01)
[2023-07-26] MEDS: DOXYCYCLINE INJECTION 100 MG in NS (IVPB) 100 ML 100 ML IV SCH ×2 (09:54→21:10)
[2023-07-26] MEDS: DOCUSATE SODIUM 100 MG CAPSULE PO SCH ×2 (09:54→22:00)
[2023-07-26] MEDS: SENNOSIDES 8.6 MG TABLET PO SCH ×2 (09:54→22:00)
--- NOTE | 2023-07-26 10:19 | Consultation-Cardiology ---
HPI-Cardiology Cardiology Consultation Date of Consultation 07/26/23 Date of Admission Time Seen by Provider: 07:35 Indication: Questionable afib HPI Patient is a 63 y/o female with history of nonobstructive CAD, COPD. Direct admit from PCP for bronchitis. C/o dyspnea. There was questionable atrial fibrillation on EKG. Review of EKG showing no atrial fibrillation. Denies any chest pain, dizziness or lightheadedness. Home Medications & Allergies Allergies: Coded Allergies: adhesive tape (Verified Allergy, Intermediate, 01/25/23) BLISTERS AND RAW SKIN almond (Verified Allergy, Intermediate, Abdominal Pain, 01/25/23) Pt states having pain when she eat them. amlodipine (Verified Allergy, Unknown, 01/25/23) erythromycin base (Verified Allergy, Unknown, 01/25/23) Home Medication List Reviewed: Yes [id number] Hx Patient Social History Marital Status: single Smoking Status: Never a Smoker 2nd Hand Smoke Exposure: No Recent Hopitalizations: No Immunizations Up To Date Tetanus Booster (TDap): More than 5yrs Date of Pneumonia Vaccine: Jan 04, 2018 Date of Influenza Vaccine: Aug 14, 2022 Past Medical History CAD, COPD, RALPH Family Medical History Significant Family History: Heart Disease, Diabetes, Hypertension Family History: Alcoholism G8 BROTHER G8 SISTER Alzheimer's disease 19 MOTHER Arthritis 19 FATHER Asthma G8 SISTER Cardiovascular disease 19 FATHER Cataracts 19 FATHER Coronary thrombosis 19 FATHER Deafness or hearing loss SON Diabetes mellitus 19 FATHER G8 SISTER G8 SISTER Drug abuse G8 SISTER Hypertension 19 FATHER G8 SISTER G8 SISTER Kidney disease 19 FATHER Respiratory disorder G8 SISTER G8 SISTER Seizure disorder SON Severe allergy SON Review of Systems-General Review of Systems Constitutional: No chills, No fever Respiratory: cough, dyspnea on exertion, short of breath, wheezing Cardiovascular: No chest pain, No palpitations Reviewed Test Results Reviewed Test Results Lab Laboratory Tests 07/26/23 05:00: White Blood Count 6.5, Red Blood Count 3.69L, Hemoglobin 10.9L, Hematocrit 35, Mean Corpuscular Volume 94, Mean Corpuscular Hemoglobin 30, Mean Corpuscular Hemoglobin Concent 32, Red Cell Distribution Width 15.4H, Platelet Count 237, Mean Platelet Volume 9.7, Immature Granulocyte % (Auto) 1, Neutrophils (%) (Auto) 95H, Lymphocytes (%) (Auto) 3L, Monocytes (%) (Auto) 1, Eosinophils (%) (Auto) 0, Basophils (%) (Auto) 0, Neutrophils # (Auto) 6.1, Lymphocytes # (Auto) 0.2L, Monocytes # (Auto) 0.1, Eosinophils # (Auto) 0.0, Basophils # (Auto) 0.0, Immature Granulocyte # (Auto) 0.0, Neutrophils % (Manual) 97, Lymphocytes % (Manual) 2, Monocytes % (Manual) 1, Eosinophils % (Manual) , Blood Morphology Comment NORMAL, Sodium Level 138, Potassium Level 4.2, Chloride Level 104, Carbon Dioxide Level 25, Anion Gap 9, Blood Urea Nitrogen 16, Creatinine 0.95, Estimat Glomerular Filtration Rate 66, BUN/Creatinine Ratio 17, Glucose Level 247H, Calcium Level 9.1, Corrected Calcium 9.4, Total Bilirubin 0.3, Aspartate Amino Transf (AST/SGOT) 17, Alanine Aminotransferase (ALT/SGPT) 22, Alkaline Phosphatase 98, Total Protein 6.4, Albumin 3.6 Physical Exam Physical Exam Vital Signs Vital Signs - First Documented 07/25/23 18:00 Temp 37.0 Pulse 90 Resp 20 B/P (MAP) 125/61 (82) Pulse Ox 96 O2 Delivery Nasal Cannula O2 Flow Rate 3.00 Capillary Refill : Height, Weight, BMI Height: 5'6.00" Weight: 297lbs. 0.0oz. [id number]; 61.67 BMI Method:Stated General Appearance: WD/WN, Mild Distress, Obese HEENT: PERRL/EOMI, TMs Normal Neck: Non Tender, Supple Respiratory: Wheezing (mild b/l with expiration and inspiration) Cardiovascular: Regular Rate, Rhythm, No Gallop, No Murmur Gastrointestinal: Non Tender, Soft Rectal: Deferred Back: No CVA Tenderness Neurologic/Psychiatric: Alert, Oriented x3 Skin: Normal Color, Warm/Dry A/P-Cardiology Admission Diagnosis Acute bronchitis AE COPD CAD HTN Assessment/Plan Acute bronchitis, management per medical services AE COPD, management per medical services. Questionable atrial fibrillation, review of EKG done showing SR with no evidence of atrial fibrillation, will continue on telemetry Cardiac catheterization was carried out on April 29, 2021 showing 50% stenosis in the mid LAD with FFR 0.85 after adenosine challenge. Otherwise mild coronary artery disease with normal left ventricular pressure. Reassured at this time. Continue to monitor Echocardiogram done on March 04, 2021 showing normal LV size, EF 55 to 65%, grade 1 diastolic dysfunction, PA pressure 25 to 30 mmHg. I will evaluate Echo Hypertension, continue to monitor. Hyperlipidemia. 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 Continue to monitor Obesity, BMI 63, we discussed weight loss Myasthenia gravis, followed and managed by Dr. Romero Rheumatoid arthritis, following with Dr. Zuluaga Thank you for allowing us to participate in the management of Ms. Maldonado. This is Dulce Petty PA-C, as a scribe for Dr. Somers Patient was seen and evaluated with Dulce, I interviewed and examined the patient, I agree with the current scribed note Patient was admitted for cough and shortness of breath, review of her EKG showed sinus rhythm with no arrhythmia. Restart home medication monitor blood pressure DULCE MEMBRENO Jul 26, 2023 10:19 BELLE SOMERS MD Jul 26, 2023 10:53
[2023-07-26] MEDS: RT-HYPERTONIC SALINE 3% 4 ML NEB INH SCH ×3 (11:16→18:56)
[2023-07-26 11:35] VITALS: BP 139/63
[2023-07-26] MEDS ORDERED: [UNRECOGNIZED DRUG - OTHER] NEB (11:50)
[2023-07-26] MEDS ORDERED: DULO30CA49 PO (11:50)
[2023-07-26] MEDS ORDERED: PRED5TAB PO (11:50)
[2023-07-26] MEDS ORDERED: INSU100I51 SQ (11:50)
[2023-07-26] MEDS ORDERED: SEMA1PEN3 SQ (11:50)
[2023-07-26] MEDS ORDERED: ACET-3075 PO (11:50)
[2023-07-26] MEDS ORDERED: INSU100I88 SQ (11:50)
[2023-07-26 16:38] VITALS: BP 154/70
[2023-07-26] MEDS ORDERED: ALPRAZolam 0.5 MG TABLET PO PRN (20:15)
[2023-07-26] MEDS ORDERED: NON-FORMULARY MEDICATION 1 EA EA (Semaglutide (Ozempic) 1 MG) SQ SCH (20:15)
[2023-07-26] MEDS ORDERED: FUROSEMIDE 40 MG TABLET PO PRN (20:15)
[2023-07-26 20:28] VITALS: BP 141/62
[2023-07-26] MEDS: FLUTICASONE NASAL SPRAY (120 SPRAYS) NS SCH (21:37)
[2023-07-26] MEDS: MELATONIN 10 MG TABLET PO SCH (21:58)
[2023-07-26] MEDS: cloNIDine 0.1 MG TABLET PO SCH (22:00)
[2023-07-26] MEDS: PANTOPRAZOLE 40 MG TABLET PO SCH (22:01)
[2023-07-26] MEDS: POTASSIUM CHLORIDE 20 MEQ TABLET PO SCH (22:01)
[2023-07-27 00:28] VITALS: BP 146/69
[2023-07-27] MEDS: CEFEPIME INJECTION 1,000 MG in NS (IVPB) 50 ML 50 ML IV SCH ×2 (00:45→06:22)
[2023-07-27] MEDS: RT-Ipratropium/Albuterol NEB 3 ML VIAL INH SCH ×6 (03:27→22:00)
[2023-07-27 04:26] VITALS: BP 152/78
[2023-07-27] MEDS: inSUlin ASPART 1 UNIT/0.01 ML (PER UNIT) SC SCH ×4 (05:39→20:54)
[2023-07-27 05:47] LABS: BASOPHILS % (AUTO) 0 % (0-10); EOSINOPHILS % (AUTO) 0 % (0-10); HEMATOCRIT 34 % (35-52); HEMOGLOBIN 10.7 g/dL (11.5-16.0); LYMPHOCYTES # (AUTO) 0.9 10^3/uL (1.0-4.0); LYMPHOCYTES % (AUTO) 9 % (12-44); MEAN CORPUSCULAR HEMOGLOBIN 30 pg (25-34); MEAN CORPUSCULAR HGB CONC 32 g/dL (32-36); MEAN CORPUSCULAR VOLUME 94 fL (80-99); MEAN PLATELET VOLUME 9.6 fL (9.0-12.2); MONOCYTES # (AUTO) 0.6 10^3/uL (0.0-1.0); MONOCYTES % (AUTO) 6 % (0-12); NEUTROPHILS # (AUTO) 8.3 10^3/uL (1.8-7.8); NEUTROPHILS % (AUTO) 84 % (42-75); PLATELET COUNT 233 10^3/uL (130-400); WHITE BLOOD COUNT 9.9 10^3/uL (4.3-11.0)
[2023-07-27 06:06] LABS: ALBUMIN 3.4 GM/DL (3.2-4.5); POTASSIUM 4.3 MMOL/L (3.6-5.0)
[2023-07-27 06:08] LABS: TOTAL PROTEIN 6.2 GM/DL (6.4-8.2)
[2023-07-27 06:10] LABS: BILIRUBIN,TOTAL 0.2 MG/DL (0.1-1.0)
[2023-07-27 06:12] LABS: CREATININE SERUM 0.84 MG/DL (0.60-1.30)
[2023-07-27] MEDS: glyBURIDE 2.5 MG TABLET PO SCH ×2 (06:22→16:41)
[2023-07-27] MEDS: RT-HYPERTONIC SALINE 3% 4 ML NEB INH SCH ×3 (07:34→19:14)
[2023-07-27] MEDS: RT-BUDESONIDE NEBS 0.5 MG/2ML VIAL INH SCH ×2 (07:35→22:01)
[2023-07-27] MEDS ORDERED: UMECLIDINIUM BROMIDE (INCRUSE ELLIPTA) 7'S IH SCH (08:00)
[2023-07-27 08:17] VITALS: BP 127/74
[2023-07-27] MEDS: FLUTICASONE/VILANTEROL 100/25 MCG (7 DOSES) IH SCH (10:26)
[2023-07-27] MEDS: inSUlin DETERMIR 1 UNIT/0.01 ML (CHARGE PER UNIT) SQ SCH ×4 (10:29→22:01)
[2023-07-27] MEDS: dexAMETHasone INJ 4 MG/ML SDV IV SCH (10:30)
[2023-07-27] MEDS: cloNIDine 0.1 MG TABLET PO SCH ×2 (10:30→20:53)
[2023-07-27] MEDS: VITAMIN D3 25 MCG (1,000 UNITS) TABLET PO SCH (10:31)
[2023-07-27] MEDS: DULoxetine 30 MG CAPSULE PO SCH (10:31)
[2023-07-27] MEDS: POTASSIUM CHLORIDE 20 MEQ TABLET PO SCH ×2 (10:31→20:53)
[2023-07-27] MEDS: APIXABAN 5 MG TABLET PO SCH ×2 (10:31→20:53)
[2023-07-27] MEDS: SENNOSIDES 8.6 MG TABLET PO SCH ×2 (10:31→20:53)
[2023-07-27] MEDS: PANTOPRAZOLE 40 MG TABLET PO SCH ×2 (10:31→20:53)
[2023-07-27] MEDS: LOSARTAN 50 MG TABLET PO SCH (10:32)
[2023-07-27] MEDS: LORATADINE 10 MG TABLET PO SCH (10:32)
[2023-07-27] MEDS: DOCUSATE SODIUM 100 MG CAPSULE PO SCH ×2 (10:32→20:53)
[2023-07-27] MEDS: VENlafaxine XR 75 MG (EFFEXOR XR) CAP PO SCH (10:32)
[2023-07-27] MEDS: TRIAMTERENE/HCTZ 75-50 (MAXZIDE,DYAZIDE) TABLET PO SCH (10:32)
[2023-07-27] MEDS: LEVOTHYROXINE 50 MCG TABLET PO SCH (10:33)
[2023-07-27] MEDS: MONTELUKAST 10 MG TABLET PO SCH (10:33)
[2023-07-27] MEDS: FLUTICASONE NASAL SPRAY (120 SPRAYS) NS SCH ×2 (10:33→20:55)
[2023-07-27] MEDS: CEFDINIR 300 MG CAPSULE PO SCH ×2 (11:06→20:53)
[2023-07-27 11:42] VITALS: BP 125/75
--- NOTE | 2023-07-27 11:55 | Progress Note ---
SANDEE BURKETT 07/27/23 1155: Subjective Date Seen by a Provider: Jul 27, 2023 Time Seen by a Provider: 08:30 Subjective/Events-last exam Pt is feeling better today. She states that breathing, cough, and wheezes are back to baseline. No sputum has been noted since admission. Vitals were unremarkable and pt denies new chest pain, palpitations, fever, chills, diaphoresis. Review of Systems General: No Chills, No Fatigue HEENT: No Head Aches, No Sore Throat Pulmonary: Cough Cardiovascular: No: Chest Pain, Palpitations Gastrointestinal: No: Nausea, Vomiting Focused Exam Lactate Level 07/25/23 19:18: Lactic Acid Level 1.72 Objective Exam Last Set of Vital Signs Vital Signs Date Time Temp Pulse Resp B/P (MAP) Pulse Ox O2 Delivery O2 Flow Rate FiO2 07/27/23 11:42 36.0 81 17 125/75 (92) 99 Nasal Cannula 3.00 Capillary Refill : I&O Intake and Output 07/27/23 00:00 Intake Total 1820 ml Balance 1820 ml Intake Oral 1720 ml IV Total 100 ml # Voids 11 # Bowel Movements 1 General: Alert, Oriented X3, No Acute Distress Lungs: Clear to Auscultation, Normal Air Movement Heart: Regular Rate, Normal S1, Normal S2, No Murmurs Skin: No Significant Lesion Psych/Mental Status: Mental Status NL, Mood NL Results Lab Laboratory Tests 07/27/23 05:30: White Blood Count 9.9, Red Blood Count 3.61L, Hemoglobin 10.7L, Hematocrit 34L, Mean Corpuscular Volume 94, Mean Corpuscular Hemoglobin 30, Mean Corpuscular Hemoglobin Concent 32, Red Cell Distribution Width 15.8H, Platelet Count 233, Mean Platelet Volume 9.6, Immature Granulocyte % (Auto) 1, Neutrophils (%) (Auto) 84H, Lymphocytes (%) (Auto) 9L, Monocytes (%) (Auto) 6, Eosinophils (%) (Auto) 0, Basophils (%) (Auto) 0, Neutrophils # (Auto) 8.3H, Lymphocytes # (Auto) 0.9L, Monocytes # (Auto) 0.6, Eosinophils # (Auto) 0.0, Basophils # (Auto) 0.0, Immature Granulocyte # (Auto) 0.1, Sodium Level 142, Potassium Level 4.3, Chloride Level 108H, Carbon Dioxide Level 25, Anion Gap 9, Blood Urea Nitrogen 19H, Creatinine 0.84, Estimat Glomerular Filtration Rate 77, BUN/Creatinine Ratio 23, Glucose Level 214H, Calcium Level 9.0, Corrected Calcium 9.5, Total Bilirubin 0.2, Aspartate Amino Transf (AST/SGOT) 12, Alanine Aminotransferase (ALT/SGPT) 19, Alkaline Phosphatase 84, Total Protein 6.2L, Albumin 3.4 Microbiology 07/25/23 Blood Culture - Preliminary, Resulted Assessment/Plan Assessment/Plan Assess & Plan/Chief Complaint Assessment 1. Acute on Chronic Respiratory Failure 2. COPD Exacerbation 3. Bronchitis Plan 1. Steroids 2. Nebulizer 3. O2 4. Antibiotics Clinical Quality Measures Admission Status Admission Dx Assessment 1. Acute on Chronic Respiratory Failure 2. COPD Exacerbation 3. Bronchitis Plan 1. Steroids 2. O2 3. Nebulizer 4. Empiric Antibiotics 5. Cardio consult SHAYLA JIMENEZ DO 07/28/23 0500: Subjective Subjective/Events-last exam Patient doing a lot better Moving IV medication to p.o. Less wheezing Review of Systems General: Fatigue, Malaise Objective Exam General: Alert, Oriented X3 Lungs: Clear to Auscultation, Normal Air Movement Heart: Regular Rate Psych/Mental Status: Mental Status NL Assessment/Plan Assessment/Plan Assess & Plan/Chief Complaint Supportive care Change antibiotics to p.o. Change IV steroids to p.o. Supervisory-Addendum Brief Verification & Attestation Participated in pt care: history, MDM, physical Personally performed: exam, history, MDM, supervision of care Care discussed with: Medical Student Procedures: n/a Results interpretation: Verified all documentation Verification and Attestation of Medical Student E/M Service A medical student performed and documented this service in my presence. I reviewed and verified all information documented by the medical student and made modifications to such information, when appropriate. I personally performed the physical exam and medical decision making. Shayla Jimenez Jul 28, 2023,04:59 SANDEE BURKETT Jul 27, 2023 11:55 SHAYLA JIMENEZ DO Jul 28, 2023 05:00
[2023-07-27] MEDS: predniSONE 20 MG TABLET PO SCH (13:45)
[2023-07-27 15:40] VITALS: BP 132/72
--- NOTE | 2023-07-27 17:21 | Cardiology Progress Note ---
Subjective Date Seen by Provider: Jul 27, 2023 Time Seen by Provider: 17:19 Subjective/Events-last exam Patient was seen at bedside, no new complaint. Laying down comfortably Focused Exam Lactate Level 07/25/23 19:18: Lactic Acid Level 1.72 Objective-Cardiology Exam Last Set of Vital Signs Vital Signs 07/27/23 15:40 Temp 36.7 Pulse 88 Resp 18 B/P (MAP) 132/72 (92) Pulse Ox 96 O2 Delivery High Flow N/C O2 Flow Rate 3.00 I&O Intake and Output 07/27/23 00:00 Intake Total 1820 ml Balance 1820 ml Intake Oral 1720 ml IV Total 100 ml # Voids 11 # Bowel Movements 1 General: Alert, Oriented X3, No Acute Distress Lungs: Clear to Auscultation, Normal Air Movement Heart: Regular Rate, Normal S1, Normal S2, No Murmurs Skin: No Significant Lesion Psych/Mental Status: Mental Status NL, Mood NL Results Lab Laboratory Tests 07/27/23 05:30 A/P-Cardiology Admission Diagnosis Acute bronchitis AE COPD CAD HTN Assessment/Plan Acute bronchitis, management per medical services AE COPD, management per medical services. Questionable atrial fibrillation, review of EKG done showing SR with no evidence of atrial fibrillation, will continue on telemetry Patient had transient episode of tachycardia on telemetry, no atrial fibrillation was detected Cardiac catheterization was carried out on April 29, 2021 showing 50% stenosis in the mid LAD with FFR 0.85 after adenosine challenge. Otherwise mild coronary artery disease with normal left ventricular pressure. Reassured at this time. Continue to monitor 2D echo was done on July 26, 2023 with normal LV size, ejection fraction 50 to 55%, grade 1 diastolic dysfunction, PA pressure 25 to 30 mmHg Hypertension, continue to monitor. Hyperlipidemia. 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 Continue to monitor Obesity, BMI 63, we discussed weight loss Myasthenia gravis, followed and managed by Dr. Romero Rheumatoid arthritis, following with BELLE Jean Baptiste MD Jul 27, 2023 17:21
[2023-07-27 20:36] VITALS: BP 148/75
[2023-07-27] MEDS: MELATONIN 10 MG TABLET PO SCH (20:53)
[2023-07-27] MEDS ORDERED: ACETAMINOPHEN 500 MG TABLET PO SCH (21:00)
[2023-07-27] MEDS ORDERED: diphenhydrAMINE 25 MG TABLET PO SCH (21:00)
[2023-07-28 00:26] VITALS: BP 138/60
[2023-07-28] MEDS: RT-Ipratropium/Albuterol NEB 3 ML VIAL INH SCH ×3 (02:02→11:28)
[2023-07-28 04:00] VITALS: BP 125/59
[2023-07-28] MEDS: predniSONE 20 MG TABLET PO SCH (06:08)
[2023-07-28] MEDS: glyBURIDE 2.5 MG TABLET PO SCH (06:08)
[2023-07-28] MEDS: LEVOTHYROXINE 50 MCG TABLET PO SCH (06:08)
[2023-07-28] MEDS: inSUlin ASPART 1 UNIT/0.01 ML (PER UNIT) SC SCH ×2 (06:11→12:06)
[2023-07-28 06:21] LABS: BASOPHILS % (AUTO) 0 % (0-10); EOSINOPHILS % (AUTO) 0 % (0-10); HEMATOCRIT 34 % (35-52); HEMOGLOBIN 10.8 g/dL (11.5-16.0); LYMPHOCYTES % (AUTO) 9 % (12-44); MEAN CORPUSCULAR HEMOGLOBIN 30 pg (25-34); MEAN CORPUSCULAR HGB CONC 32 g/dL (32-36); MEAN CORPUSCULAR VOLUME 94 fL (80-99); MEAN PLATELET VOLUME 9.6 fL (9.0-12.2); MONOCYTES # (AUTO) 0.6 10^3/uL (0.0-1.0); MONOCYTES % (AUTO) 6 % (0-12); NEUTROPHILS # (AUTO) 9.3 10^3/uL (1.8-7.8); NEUTROPHILS % (AUTO) 84 % (42-75); PLATELET COUNT 260 10^3/uL (130-400); WHITE BLOOD COUNT 11.1 10^3/uL (4.3-11.0)
[2023-07-28 06:47] LABS: ALBUMIN 3.5 GM/DL (3.2-4.5); BILIRUBIN,TOTAL 0.2 MG/DL (0.1-1.0); CREATININE SERUM 0.92 MG/DL (0.60-1.30); POTASSIUM 4.2 MMOL/L (3.6-5.0); TOTAL PROTEIN 6.1 GM/DL (6.4-8.2)
[2023-07-28 07:09] VITALS: BP 121/56
[2023-07-28] MEDS: RT-HYPERTONIC SALINE 3% 4 ML NEB INH SCH ×2 (07:20→11:02)
[2023-07-28] MEDS: FLUTICASONE/VILANTEROL 100/25 MCG (7 DOSES) IH SCH (07:22)
[2023-07-28 08:00] VITALS: BP 121/56
[2023-07-28] MEDS ORDERED: TIOTROPIUM INH 4 GM (SPIRIVA Respimat) IH SCH (08:00)
--- NOTE | 2023-07-28 09:06 | Cardiology Progress Note ---
Subjective Date Seen by Provider: Jul 28, 2023 Time Seen by Provider: 09:05 Subjective/Events-last exam Patient was seen at bedside, sitting comfortably, feeling better. No new complaint Focused Exam Lactate Level 07/25/23 19:18: Lactic Acid Level 1.72 Objective-Cardiology Exam Last Set of Vital Signs Vital Signs 07/28/23 07/28/23 07:09 07:22 Temp 35.4 Pulse 77 Resp 16 B/P (MAP) 121/56 (77) Pulse Ox 100 O2 Delivery Nasal Cannula O2 Flow Rate 3.00 I&O Intake and Output 07/28/23 00:00 Intake Total 2090 ml Balance 2090 ml Intake Oral 1990 ml IV Total 100 ml # Voids 9 General: Alert, Oriented X3 HEENT: Atraumatic, PERRLA Neck: Supple, No JVD, No Thyromegaly Lungs: Clear to Auscultation, Normal Air Movement Heart: Regular Rate Abdomen: Normal Bowel Sounds, Soft, No Tenderness, No Hepatosplenomegaly, No Masses Extremities: No Clubbing, No Cyanosis, No Edema, Normal Pulses, No Tenderness/Swelling Skin: No Significant Lesion Neuro: Normal Gait, Normal Speech, Strength at 5/5 X4 Ext, Normal Tone, Sensation Intact Psych/Mental Status: Mental Status NL Results Lab Laboratory Tests 07/28/23 06:12 A/P-Cardiology Admission Diagnosis Acute bronchitis AE COPD CAD HTN Assessment/Plan Acute bronchitis, management per medical services AE COPD, management per medical services. Questionable atrial fibrillation, review of EKG done showing SR with no evidence of atrial fibrillation, will continue on telemetry Patient had transient episode of tachycardia on telemetry, no atrial fibrillation was detected Cardiac catheterization was carried out on April 29, 2021 showing 50% stenosis in the mid LAD with FFR 0.85 after adenosine challenge. Otherwise mild coronary artery disease with normal left ventricular pressure. Reassured at this time. Continue to monitor 2D echo was done on July 26, 2023 with normal LV size, ejection fraction 50 to 55%, grade 1 diastolic dysfunction, PA pressure 25 to 30 mmHg Hypertension, continue to monitor. Hyperlipidemia. 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 Continue to monitor Obesity, BMI 63, we discussed weight loss Myasthenia gravis, followed and managed by Dr. Romero Rheumatoid arthritis, following with BELLE Jean Baptiste MD Jul 28, 2023 09:06
[2023-07-28] MEDS: VITAMIN D3 25 MCG (1,000 UNITS) TABLET PO SCH (10:08)
[2023-07-28] MEDS: CEFDINIR 300 MG CAPSULE PO SCH (10:08)
[2023-07-28] MEDS: VENlafaxine XR 75 MG (EFFEXOR XR) CAP PO SCH (10:08)
[2023-07-28] MEDS: PANTOPRAZOLE 40 MG TABLET PO SCH (10:08)
[2023-07-28] MEDS: APIXABAN 5 MG TABLET PO SCH (10:08)
[2023-07-28] MEDS: LORATADINE 10 MG TABLET PO SCH (10:08)
[2023-07-28] MEDS: LOSARTAN 50 MG TABLET PO SCH (10:08)
[2023-07-28] MEDS: MONTELUKAST 10 MG TABLET PO SCH (10:09)
[2023-07-28] MEDS: POTASSIUM CHLORIDE 20 MEQ TABLET PO SCH (10:09)
[2023-07-28] MEDS: DULoxetine 30 MG CAPSULE PO SCH (10:09)
[2023-07-28] MEDS: SENNOSIDES 8.6 MG TABLET PO SCH (10:09)
[2023-07-28] MEDS: cloNIDine 0.1 MG TABLET PO SCH (10:09)
[2023-07-28] MEDS: FLUTICASONE NASAL SPRAY (120 SPRAYS) NS SCH (10:10)
[2023-07-28] MEDS: DOCUSATE SODIUM 100 MG CAPSULE PO SCH (10:10)
[2023-07-28] MEDS: TRIAMTERENE/HCTZ 75-50 (MAXZIDE,DYAZIDE) TABLET PO SCH (10:10)
[2023-07-28] MEDS: inSUlin DETERMIR 1 UNIT/0.01 ML (CHARGE PER UNIT) SQ SCH (10:11)
[2023-07-28] MEDS ORDERED: CEFD300C3 PO (10:55)
[2023-07-28] MEDS ORDERED: PRED10TA22 PO (10:55)
--- NOTE | 2023-07-28 10:55 | Discharge Summary ---
Diagnosis/Chief Complaint Date of Admission Jul 25, 2023 at 18:04 Date of Discharge Discharge Date: Jul 28, 2023 Discharge Diagnosis Assessment: Acute on chronic hypoxic and hypercapneic respiratory failure Acute COPD exacerbation with acute on chronic bronchitis HTN Myasthenia Gravis RA DM Hx PE h/o long COVID RALPH on CPAP Reason Hospital Visit CC: Acute on chronic respiratory failure HPI: This is a 63yoWF clinic patient of [facility] who has h/o severe asthma and RALPH on CPAP and O2 dependence with morbid obesity along with insulin dependent DM, hypothyroidism, HTN malignant type with HLP and myasthenia gravis with rheumatoid arthritis who presented to my clinic with worsened dyspnea and productive sputum. She sees Dr Somers and Dr Martinez along with Dr Walden and [facility] specialist Discharge Summary Discharge Physical Examination Allergies: Coded Allergies: adhesive tape (Verified Allergy, Intermediate, 01/25/23) BLISTERS AND RAW SKIN almond (Verified Allergy, Intermediate, Abdominal Pain, 01/25/23) Pt states having pain when she eat them. amlodipine (Verified Allergy, Unknown, 01/25/23) erythromycin base (Verified Allergy, Unknown, 01/25/23) Vitals & I&Os Vital Signs Date Time Temp Pulse Resp B/P (MAP) Pulse Ox O2 Delivery O2 Flow Rate FiO2 07/28/23 14:58 36.0 75 17 125/60 96 Nasal Cannula 3.00 General Appearance: Alert, Oriented X3, Cooperative Respiratory: Clear to Auscultation Cardiovascular: Regular Rate Psych/Mental Status: Mental Status NL Hospital Course Was the Problem List Reviewed?: Yes CC: Dyspnea This 63yo female pt with a history of COPD, Asthma, and chronic respiratory failure presented to the clinic on 07/25 with increased shortness of breath, coughing, and c/o increased sputum that was green. She is normally on 2L NC O2 at home and had to increase it to 3L. She tried nebulizer tx at home and was still having trouble breathing. Exertion made sx worse. Pt denied fever, chills, chest pain, and palpitations at the time. Pt did endorse wheezing. Pt was directly admitted to the med/surg floor with acute on chronic respiratory failure and COPD exacerbation and arrived by POV. Pt orders included CBC, CMP, CXR, EKG, and ABG. CBC, CMP, EKG, and ABG were unremarkable. CXR showed stable cardiomegaly and clear lung hurt suggesting patient had acute bronchitis. Treatment included systemic steroids (methylprednisolone and dexamethasone), empiric IV antibiotics (cefepime and doxycycline), O2 3L NC, inhaled hypertonic saline 3%, and nebulizer (ipratropium/albuterol). Antibiotics were changed to cefidinir PO and doxycycline PO on 07/27. Pt gradually improved over her stay with decreased shortness of breath, coughing, wheezing, and no sputum production while in the hospital. Today, pt stated she felt much better and was ready to go home. She was able to conversate w/o SOB or coughing. Pt had no concerns and agreed with plans to discharge home with spouse. Discharge meds include cefidinir 300mg capsule PO BID and prednisone 10mg Tab PO take 6 first day (60mg) and take 1 less tablet everyday after until down to 0 tabs. SANDEE BURKETT Jul 28, 2023 11:32 Labs (last 24 hrs) Laboratory Tests 07/25/23 18:20: White Blood Count 6.4, Red Blood Count 3.76L, Hemoglobin 11.3L, Hematocrit 35, Mean Corpuscular Volume 94, Mean Corpuscular Hemoglobin 30, Mean Corpuscular Hemoglobin Concent 32, Red Cell Distribution Width 15.3H, Platelet Count 261, M dong Platelet Volume 9.9, Immature Granulocyte % (Auto) 1, Neutrophils (%) (Auto) 75, Lymphocytes (%) (Auto) 16, Monocytes (%) (Auto) 7, Eosinophils (%) (Auto) 2, Basophils (%) (Auto) 1, Neutrophils # (Auto) 4.8, Lymphocytes # (Auto) 1.0, Monocytes # (Auto) 0.4, Eosinophils # (Auto) 0.1, Basophils # (Auto) 0.0, Immature Granulocyte # (Auto) 0.0, Sodium Level 143, Potassium Level 4.3, Chloride Level 107, Carbon Dioxide Level 25, Anion Gap 11, Blood Urea Nitrogen 15, Creatinine 0.93, Estimat Glomerular Filtration Rate 68, BUN/Creatinine Ratio 16, Glucose Level 143H, Calcium Level 9.0, Corrected Calcium 9.4, Total B ilirubin 0.3, Aspartate Amino Transf (AST/SGOT) 18, Alanine Aminotransferase (ALT/SGPT) 22, Alkaline Phosphatase 98, Total Protein 6.3L, Albumin 3.5 07/25/23 19:00: Blood Gas Puncture Site RIGHT RADIAL, Blood Gas Patient Temperature UNKNOWN, Arterial Blood pH 7.37, Arterial Blood Partial Pressure CO2 47H, Arterial Blood Partial Pressure O2 121H, Arterial Blood HCO3 26, Arterial Blood Total CO2 27.8, Arterial Blood Oxygen Saturation 99, Arterial Blood Base Excess 1.6, Carlos Test YES-POS, Blood Gas Ventilator Setting NO, Blood Gas Inspired Oxygen 3L 07/25/23 19:18: Glucometer 159H, Lactic Acid Level 1.72 07/26/23 05:00: White Blood Count 6.5, Red Blood Count 3.69L, Hemoglobin 10.9L, Hematocrit 35, Mean Corpuscular Volume 94, Mean Corpuscular Hemoglobin 30, Mean Corpuscular Hemoglobin Concent 32, Red Cell Distribution Width 15.4H, Platelet Count 237, Mean Platelet Volume 9.7, Immature Granulocyte % (Auto) 1, Neutrophils (%) (Auto) 95H, Lymphocytes (%) (Auto) 3L, Monocytes (%) (Auto) 1, Eosinophils (%) (Auto) 0, Basophils (%) (Auto) 0, Neutrophils # (Auto) 6.1, Lymphocytes # (Auto) 0.2L, Monocytes # (Auto) 0.1, Eosinophils # (Auto) 0.0, Basophils # (Auto) 0.0, Immature Granulocyte # (Auto) 0.0, Sodium Level 138, Potassium Level 4.2, Chloride Level 104, Carbon Dioxide Level 25, Anion Gap 9, Blood Urea Nitrogen 16, Creatinine 0.95, Estimat Glomerular Filtration Rate 66, BUN/Creatinine Ratio 17, Glucose Level 247H, Calcium Level 9.1, Corrected Calcium 9.4, Total Bilirubin 0.3, Aspartate Amino Transf (AST/SGOT) 17, Alanine Aminotransferase (ALT/SGPT) 22, Alkaline Phosphatase 98, Total Protein 6.4, Albumin 3.6, Neutrophils % (Manual) 97, Lymphocytes % (Manual) 2, Monocytes % (Manual) 1, Eosinophils % (Manual) , Blood Morphology Comment NORMAL 07/26/23 10:35: Glucometer 261H 07/27/23 05:30: White Blood Count 9.9, Red Blood Count 3.61L, Hemoglobin 10.7L, Hematocrit 34L, Mean Corpuscular Volume 94, Mean Corpuscular Hemoglobin 30, Mean Corpuscular Hemoglobin Concent 32, Red Cell Distribution Width 15.8H, Platelet Count 233, Mean Platelet Volume 9.6, Immature Granulocyte % (Auto) 1, Neutrophils (%) (Auto) 84H, Lymphocytes (%) (Auto) 9L, Monocytes (%) (Auto) 6, Eosinophils (%) (Auto) 0, Basophils (%) (Auto) 0, Neutrophils # (Auto) 8.3H, Lymphocytes # (Auto) 0.9L, Monocytes # (Auto) 0.6, Eosinophils # (Auto) 0.0, Basophils # (Aut o) 0.0, Immature Granulocyte # (Auto) 0.1, Sodium Level 142, Potassium Level 4.3, Chloride Level 108H, Carbon Dioxide Level 25, Anion Gap 9, Blood Urea Nitrogen 19H, Creatinine 0.84, Estimat Glomerular Filtration Rate 77, BUN/Creatinine Ratio 23, Glucose Level 214H, Calcium Level 9.0, Corrected Calcium 9.5, Total Bilirubin 0.2, Aspartate Amino Transf (AST/SGOT) 12, Alanine Aminotransferase (ALT/SGPT) 19, Alkaline Phosphatase 84, Total Protein 6.2L, Albumin 3.4 07/28/23 06:12: White Blood Count 11.1H, Red Blood Count 3.58L, Hemoglobin 10.8L, Hematocrit 34L , Mean Corpuscular Volume 94, Mean Corpuscular Hemoglobin 30, Mean Corpuscular Hemoglobin Concent 32, Red Cell Distribution Width 16.0H, Platelet Count 260, Mean Platelet Volume 9.6, Immature Granulocyte % (Auto) 1, Neutrophils (%) (Auto) 84H, Lymphocytes (%) (Auto) 9L, Monocytes (%) (Auto) 6, Eosinophils (%) (Auto) 0, Basophils (%) (Auto) 0, Neutrophils # (Auto) 9.3H, Lymphocytes # (Auto) 1.0, Monocytes # (Auto) 0.6, Eosinophils # (Auto) 0.0, Basophils # (Auto) 0.0, Immature Granulocyte # (Auto) 0.1, Sodium Level 138, Potassium Level 4.2, Chloride Level 105, Carbon Dioxide Level 26, Anion Gap 7, Blood Urea Nitrogen 24H, Creatinine 0.92, Estimat Glomerular Filtration Rate 69, BUN/Creatinine Ra sven 26, Glucose Level 223H, Calcium Level 9.0, Corrected Calcium 9.4, Total Bilirubin 0.2, Aspartate Amino Transf (AST/SGOT) 14, Alanine Aminotransferase (ALT/SGPT) 21, Alkaline Phosphatase 81, Total Protein 6.1L, Albumin 3.5 Microbiology 07/25/23 Blood Culture - Preliminary, Resulted Pending Labs Microbiology Date/Time Source Procedure Growth Status 07/25/23 19:18 Peripheral Rt Ac Blood Culture - Preliminary Resulted 07/25/23 18:51 Port Not Otherwise Specified Blood Culture - Preliminary Pseudomonas luteola Staphylococcus epidermidis Staphylococcus hominis No Susceptibility Performed See Comments Resulted Laboratory Tests 07/25/23 18:20: White Blood Count 6.4, Red Blood Count 3.76, Hemoglobin 11.3, Hematocrit 35, Mean Corpuscular Volume 94, Mean Corpuscular Hemoglobin 30, Mean Corpuscular Hemoglobin Concent 32, Red Cell Distribution Width 15.3, Platelet Count 261, Mean Platelet Volume 9.9, Immature Granulocyte % (Auto) 1, Neutrophils (%) (Auto) 75, Lymphocytes (%) (Auto) 16, Monocytes (%) (Auto) 7, Eosinophils (%) (Auto) 2, Basophils (%) (Auto) 1, Neutrophils # (Auto) 4.8, Lymphocytes # (Auto) 1.0, Monocytes # (Auto) 0.4, Eosinophils # (Auto) 0.1, Basophils # (Auto) 0.0, Immature Granulocyte # (Auto) 0.0, Sodium Level 143, Potassium Level 4.3, Chloride Level 107, Carbon Dioxide Level 25, Anion Gap 11, Blood Urea Nitrogen 15, Creatinine 0.93, Estimat Glomerular Filtration Rate 68, BUN/Creatinine Ratio 16, Glucose Level 143, Calcium Level 9.0, Corrected Calcium 9.4, Total Bilirubin 0.3, Aspartate Amino Transf (AST/SGOT) 18, Alanine Aminotransferase (ALT/SGPT) 22, Alkaline Phosphatase 98, Total Protein 6.3, Albumin 3.5 07/25/23 19:00: Blood Gas Puncture Site RIGHT RADIAL, Blood Gas Patient Temperature UNKNOWN, Arterial Blood pH 7.37, Arterial Blood Partial Pressure CO2 47, Arterial Blood Partial Pressure O2 121, Arterial Blood HCO3 26, Arterial Blood Total CO2 27.8, Arterial Blood Oxygen Saturation 99, Arterial Blood Base Excess 1.6, Carlos Test YES-POS, Blood Gas Ventilator Setting NO, Blood Gas Inspired Oxygen 3L 07/25/23 19:18: Glucometer 159, Lactic Acid Level 1.72 07/26/23 05:00: White Blood Count 6.5, Red Blood Count 3.69, Hemoglobin 10.9, Hematocrit 35, Mean Corpuscular Volume 94, Mean Corpuscular Hemoglobin 30, Mean Corpuscular Hemoglobin Concent 32, Red Cell Distribution Width 15.4, Platelet Count 237, Mean Platelet Volume 9.7, Immature Granulocyte % (Auto) 1, Neutrophils (%) (Auto) 95, Lymphocytes (%) (Auto) 3, Monocytes (%) (Auto) 1, Eosinophils (%) (Auto) 0, Basophils (%) (Auto) 0, Neutrophils # (Auto) 6.1, Lymphocytes # (Auto) 0.2, Monocytes # (Auto) 0.1, Eosinophils # (Auto) 0.0, Basophils # (Auto) 0.0, Immature Granulocyte # (Auto) 0.0, Sodium Level 138, Potassium Level 4.2, Chloride Level 104, Carbon Dioxide Level 25, Anion Gap 9, Blood Urea Nitrogen 16, Creatinine 0.95, Estimat Glomerular Filtration Rate 66, BUN/Creatinine Ratio 17, Glucose Level 247, Calcium Level 9.1, Corrected Calcium 9.4, Total Bilirubin 0.3, Aspartate Amino Transf (AST/SGOT) 17, Alanine Aminotransferase (ALT/SGPT) 22, Alkaline Phosphatase 98, Total Protein 6.4, Albumin 3.6, Neutrophils % (Manual) 97, Lymphocytes % (Manual) 2, Monocytes % (Manual) 1, Eosinophils % (Manual) , Blood Morphology Comment NORMAL 07/26/23 10:35: Glucometer 261 07/27/23 05:30: White Blood Count 9.9, Red Blood Count 3.61, Hemoglobin 10.7, Hematocrit 34, Mean Corpuscular Volume 94, Mean Corpuscular Hemoglobin 30, Mean Corpuscular Hemoglobin Concent 32, Red Cell Distribution Width 15.8, Platelet Count 233, Mean Platelet Volume 9.6, Immature Granulocyte % (Auto) 1, Neutrophils (%) (Auto) 84, Lymphocytes (%) (Auto) 9, Monocytes (%) (Auto) 6, Eosinophils (%) (Auto) 0, Basophils (%) (Auto) 0, Neutrophils # (Auto) 8.3, Lymphocytes # (Auto) 0.9, Monocytes # (Auto) 0.6, Eosinophils # (Auto) 0.0, Basophils # (Auto) 0.0, Immature Granulocyte # (Auto) 0.1, Sodium Level 142, Potassium Level 4.3, Chloride Level 108, Carbon Dioxide Level 25, Anion Gap 9, Blood Urea Nitrogen 19, Creatinine 0.84, Estimat Glomerular Filtration Rate 77, BUN/Creatinine Ratio 23, Glucose Level 214, Calcium Level 9.0, Corrected Calcium 9.5, Total Bilirubin 0.2, Aspartate Amino Transf (AST/SGOT) 12, Alanine Aminotransferase (ALT/SGPT) 19, Alkaline Phosphatase 84, Total Protein 6.2, Albumin 3.4 07/28/23 06:12: White Blood Count 11.1, Red Blood Count 3.58, Hemoglobin 10.8, Hematocrit 34, Mean Corpuscular Volume 94, Mean Corpuscular Hemoglobin 30, Mean Corpuscular Hemoglobin Concent 32, Red Cell Distribution Width 16.0, Platelet Count 260, Mean Platelet Volume 9.6, Immature Granulocyte % (Auto) 1, Neutrophils (%) (Auto) 84, Lymphocytes (%) (Auto) 9, Monocytes (%) (Auto) 6, Eosinophils (%) (Auto) 0, Basophils (%) (Auto) 0, Neutrophils # (Auto) 9.3, Lymphocytes # (Auto) 1.0, Monocytes # (Auto) 0.6, Eosinophils # (Auto) 0.0, Basophils # (Auto) 0.0, Immature Granulocyte # (Auto) 0.1, Sodium Level 138, Potassium Level 4.2, Chloride Level 105, Carbon Dioxide Level 26, Anion Gap 7, Blood Urea Nitrogen 24, Creatinine 0.92, Estimat Glomerular Filtration Rate 69, BUN/Creatinine Ratio 26, Glucose Level 223, Calcium Level 9.0, Corrected Calcium 9.4, Total Bilirubin 0.2, Aspartate Amino Transf (AST/SGOT) 14, Alanine Aminotransferase (ALT/SGPT) 21, Alkaline Phosphatase 81, Total Protein 6.1, Albumin 3.5 Discharge Home Medications: Active Scripts Active Prednisone 10 Mg Tab.ds.pk 10 Mg PO DAILY Take 6 tabs(60mg)daily,decrease by 1 tab(10MG)daily. Cefdinir 300 Mg Capsule 300 Mg PO BID Reported Tylenol Pm Ex-Strength Caplet (Acetaminophen/Diphenhydramine) 500 Mg-25 Mg Tablet 2 Each PO HS [Hyper-Jasen] 3.5% Nebu 4 Ml NEB BID NovoLIN R Flexpen (Insulin Regular, Human) 100 Unit/Ml (3 Ml) Insuln.pen 5 Unit SQ AC PRN Duloxetine HCl 30 Mg Capsule.dr 30 Mg PO DAILY Levemir Flexpen (Insulin Detemir) 100 Unit/Ml (3 Ml) Insuln.pen 20 Unit SQ BID Ozempic (Semaglutide) 1 Mg/0.75 Ml (4 Mg/3 Ml) Pen.injctr 1 Mg SQ SUN Glyburide 5 Mg Tablet 5 Mg PO BID Vitamin D3 (Cholecalciferol (Vitamin D3)) 25 Mcg (1000 Unit) Tablet 25 Mcg PO DAILY Ezetimibe 10 Mg Tablet 10 Mg PO DAILY Clonidine HCl 0.1 Mg Tablet 0.1 Mg PO BID Budesonide 0.5 Mg/2 Ml Ampul.neb 0.5 Mg NEB BID Breztri Aerosphere Inhaler (Budesonide/Glycopyr/Formoterol) 160 Mcg-9 Mcg-4.8 Mcg/Actuation Hfa.aer.ad 2 Puff IH BID Ventolin Hfa (Albuterol Sulfate) 90 Mcg Hfa.aer.ad 2 Puff IH Q4H PRN Iprat-Albut 0.5-3(2.5) mg/3 ml (Ipratropium/Albuterol Sulfate) 0.5 Mg-3 Mg (2.5 Mg Base)/3 Ml Ampul.neb 3 Ml NEB Q4H PRN Azithromycin 250 Mg Tablet 250 Mg PO DAILY LAST FILLED 12-27-2022 #30/30 DAY SUPPLY Fluticasone Propionate 50 Mcg/Actuation [place].susp 1 [place] NSEACH BID Alprazolam 0.5 Mg Tablet 0.5 Mg PO Q8H PRN Imuran (Azathioprine) 50 Mg Tablet 100 Mg PO BID TAKES 2 (50MG) TABS Venlafaxine HCl ER (Venlafaxine HCl) 75 Mg Cap.er.24h 75 Mg PO DAILY Melatonin 10 Mg Tablet 20 Mg PO HS TAKES 2 (10MG) TABS Eliquis (Apixaban) 5 Mg Tablet 5 Mg PO BID Potassium Chloride 20 Meq Tablet.er 20 Meq PO BID Furosemide 40 Mg Tablet 40 Mg PO DAILY PRN All Day Allergy (Cetirizine HCl) 10 Mg Tablet 10 Mg PO DAILY Losartan Potassium 50 Mg Tablet 50 Mg PO DAILY Pantoprazole Sodium 40 Mg Tablet. 40 Mg PO BID Atorvastatin Calcium 20 Mg Tablet 20 Mg PO DAILY Triamterene-Hctz 37.5-25 mg Cp (Triamterene/Hydrochlorothiazid) 1 Each Capsule 1 Cap PO DAILY Montelukast Sodium 10 Mg Tablet 10 Mg PO DAILY Levothyroxine Sodium 50 Mcg Tablet 50 Mcg PO DAILY Instructions to patient/family Please see electronic discharge instructions given to patient. FABIENNE ZAMORA DO Jul 28, 2023 10:55
[2023-07-28 11:25] VITALS: BP 125/60
[2023-07-28] MEDS: RT-BUDESONIDE NEBS 0.5 MG/2ML VIAL INH SCH (11:28)
--- NOTE | 2023-07-28 11:32 | Progress Note ---
SANDEE BURKETT 07/28/23 1132: Progress Note CC: Dyspnea This 63yo female pt with a history of COPD, Asthma, and chronic respiratory failure presented to the clinic on 07/25 with increased shortness of breath, coughing, and c/o increased sputum that was green. She is normally on 2L NC O2 at home and had to increase it to 3L. She tried nebulizer tx at home and was still having trouble breathing. Exertion made sx worse. Pt denied fever, chills, chest pain, and palpitations at the time. Pt did endorse wheezing. Pt was directly admitted to the med/surg floor with acute on chronic respiratory failure and COPD exacerbation and arrived by POV. Pt orders included CBC, CMP, CXR, EKG, and ABG. CBC, CMP, EKG, and ABG were unremarkable. CXR showed stable cardiomegaly and clear lung hurt suggesting patient had acute bronchitis. Treatment included systemic steroids (methylprednisolone and dexamethasone), empiric IV antibiotics (cefepime and doxycycline), O2 3L NC, inhaled hypertonic saline 3%, and nebulizer (ipratropium/albuterol). Antibiotics were changed to cefidinir PO and doxycycline PO on 07/27. Pt gradually improved over her stay with decreased shortness of breath, coughing, wheezing, and no sputum production while in the hospital. Today, pt stated she felt much better and was ready to go home. She was able to conversate w/o SOB or coughing. Pt had no concerns and agreed with plans to discharge home with spouse. Discharge meds include cefidinir 300mg capsule PO BID and prednisone 10mg Tab PO take 6 first day (60mg) and take 1 less tablet everyday after until down to 0 tabs. SHAYLA JIMENEZ DO 07/29/23 0455: Supervisory-Addendum Brief Verification & Attestation Participated in pt care: history, MDM, physical Personally performed: exam, history, MDM, supervision of care Care discussed with: Medical Student Procedures: n/a Results interpretation: Verified all documentation Verification and Attestation of Medical Student E/M Service A medical student performed and documented this service in my presence. I reviewed and verified all information documented by the medical student and made modifications to such information, when appropriate. I personally performed the physical exam and medical decision making. Shayla Jimenez, Jul 29, 2023,04:55 SANDEE BURKETT Jul 28, 2023 11:32 SHAYLA JIMENEZ DO Jul 29, 2023 04:55
[2023-07-28 14:58] VITALS: BP 125/60
[2023-07-28] MEDS ORDERED: RT-HYPERTONIC SALINE 3% 4 ML NEB INH SCH (15:00)
== END 2023-07-28 14:58 | disposition home or self-care (01) | DRG 189 ==
LOC: 4TH 18:04
PROVIDERS: ADMIT Internal Medicine; ATTEND Internal Medicine
DX: J96.22 Acute and chronic respiratory failure with hypercapnia (principal); J44.0 Chronic obstructive pulmonary disease with (acute) lower respiratory infection; Z68.44 Body mass index [BMI] 60.0-69.9, adult; J96.21 Acute and chronic respiratory failure with hypoxia; I10 Essential (primary) hypertension; E78.00 Pure hypercholesterolemia, unspecified; I25.10 Atherosclerotic heart disease of native coronary artery without angina pectoris; E11.40 Type 2 diabetes mellitus with diabetic neuropathy, unspecified; G47.33 Obstructive sleep apnea (adult) (pediatric); E66.01 Morbid (severe) obesity due to excess calories; E03.9 Hypothyroidism, unspecified; G70.00 Myasthenia gravis without (acute) exacerbation; Z79.01 Long term (current) use of anticoagulants; Z86.16 Personal history of COVID-19; I65.23 Occlusion and stenosis of bilateral carotid arteries; M06.9 Rheumatoid arthritis, unspecified; Z99.81 Dependence on supplemental oxygen; Z86.711 Personal history of pulmonary embolism; Z79.890 Hormone replacement therapy; Z79.4 Long term (current) use of insulin; Z79.84 Long term (current) use of oral hypoglycemic drugs
CPT/HCPCS: 36415; 36600; 71045; 80053; 82805; 82947; 83605; 85007; 85025; 85027; 87040; 87077; 87186; 93005; 93306; 94640; 94760

== ENCOUNTER → 2023-08-24 | Outpatient (CLI) | payer MEDICARE, OTHER ==
[~2023-08-24] VITALS: Ht 167 cm; Wt 171.6 kg
[~2023-08-24] MED LIST changes: +DULO30CA49 PO; -EZET10TA17 PO; +EZET10TA83 PO; +SEMA1PEN3 SQ; +TEZEPELUMAB-EKKO 210 MG/1.91 ML SYRINGE SQ SCH; +[UNRECOGNIZED DRUG - OTHER] NEB
[2023-08-24 09:30] VITALS: BP 148/66
[2023-08-24 09:34] LABS: BASOPHILS % (AUTO) 1 % (0-10); EOSINOPHILS # (AUTO) 0.1 10^3/uL (0.0-0.3); EOSINOPHILS % (AUTO) 3 % (0-10); HEMATOCRIT 35 % (35-52); HEMOGLOBIN 10.7 g/dL (11.5-16.0); LYMPHOCYTES # (AUTO) 1.2 10^3/uL (1.0-4.0); LYMPHOCYTES % (AUTO) 25 % (12-44); MEAN CORPUSCULAR HEMOGLOBIN 30 pg (25-34); MEAN CORPUSCULAR HGB CONC 31 g/dL (32-36); MEAN CORPUSCULAR VOLUME 99 fL (80-99); MEAN PLATELET VOLUME 9.5 fL (9.0-12.2); MONOCYTES # (AUTO) 0.4 10^3/uL (0.0-1.0); MONOCYTES % (AUTO) 8 % (0-12); NEUTROPHILS # (AUTO) 3.2 10^3/uL (1.8-7.8); NEUTROPHILS % (AUTO) 63 % (42-75); PLATELET COUNT 242 10^3/uL (130-400)
== END ==
LOC: SDC 08:31
PROVIDERS: ATTEND Internal Medicine Critical Care Medicine
DX: J44.9 Chronic obstructive pulmonary disease, unspecified (principal); K21.9 Gastro-esophageal reflux disease without esophagitis; J30.1 Allergic rhinitis due to pollen; J96.11 Chronic respiratory failure with hypoxia
CPT/HCPCS: 36415; 82805; 85025; 96372

== ENCOUNTER → 2023-08-24 | Outpatient (CLI) | payer MEDICARE, OTHER ==
[~2023-08-24] VITALS: Ht 167 cm; Wt 171.6 kg
[~2023-08-24] MED LIST changes: -TEZEPELUMAB-EKKO 210 MG/1.91 ML SYRINGE SQ SCH
[2023-08-24 09:30] VITALS: BP 148/66
== END ==
LOC: SDC 09:33
PROVIDERS: ATTEND Internal Medicine
DX: Z45.2 Encounter for adjustment and management of vascular access device (principal)
CPT/HCPCS: 36591

== ENCOUNTER → 2023-08-24 | Outpatient (CLI) | payer MEDICARE, OTHER | LOC: LAB 08:34 | PROVIDERS: ATTEND Internal Medicine Critical Care Medicine | DX: J44.9 Chronic obstructive pulmonary disease, unspecified (principal); J96.11 Chronic respiratory failure with hypoxia; J45.50 Severe persistent asthma, uncomplicated; J30.1 Allergic rhinitis due to pollen; K21.9 Gastro-esophageal reflux disease without esophagitis; Z53.9 Procedure and treatment not carried out, unspecified reason ==

== ENCOUNTER → 2023-09-07 | Outpatient (CLI) | payer MEDICARE, OTHER ==
[~2023-09-07] VITALS: Ht 167 cm; Wt 171.0 kg
[~2023-09-07] MED LIST changes: +AZEL137S11 NS; +CALC-823 PO; +REGADENOSON 0.4 MG/5 ML SYR IV ONE; +RIVA20TA PO; +TEZE210P SQ
[2023-09-07] MEDS: CATHETER FLUSH 10 ML SYR IVP PRN ×2 (07:53→09:05)
[2023-09-07 09:08] VITALS: BP 164/91
--- NOTE | 2023-09-07 15:17 | Cardiology Stress Test Report ---
Stress Test Report Date of Procedure/Referring: Date of Procedure: Sep 07, 2023 PCP Shayla Jimenez DO Admitting Physician Admitting Physician: Attending Physician: Dulce Davila Baseline Heart Rate: 88 Baseline Blood Pressure: Blood Pressure Systolic: 164 Blood Pressure Diastolic: 91 Baseline Vitals Vital Signs Date Time Temp Pulse Resp B/P (MAP) Pulse Ox O2 Delivery O2 Flow Rate FiO2 09/07/23 09:08 90 164/91 (115) 97 Room Air Baseline EKG: Baseline EKG: NSR Summary After explaining the procedure to the patient, she signed a consent and then brought to the stress nuclear laboratory. Patient received 0.4 mg Lexiscan for stress test, ECG, heart rate and blood pressure were monitored continuously. Resting and stress dose of radio tracer were injected, imaging was acquired and reviewed in short axis, horizontal long axis and vertical long axis views. TID: 1.02 SSS: 9 SDS: 4 EF: 61 Patient tolerated Lexiscan well Breast attenuation with large area of reversible ischemia involving the anterior wall and anterior lateral wall Normal left ventricular size, ejection fraction 61% Copy Copies To 1: SHAYLA JIMENEZ BASHAR J MD Sep 07, 2023 15:17
== END ==
LOC: CARD 07:34
PROVIDERS: ATTEND Physician Assistant
DX: I10 Essential (primary) hypertension (principal)
CPT/HCPCS: 78452; 93017; A9502

== ENCOUNTER 2023-09-14 10:59 | Day surgery (SDC) | payer MEDICARE, OTHER ==
[~2023-09-14] VITALS: Ht 167.6 cm; Wt 171.0 kg
[2023-09-14] VITALS (10 sets, daily range): BP systolic 115–161; BP diastolic 60–89
[~2023-09-14 10:59] MED LIST changes: -AZEL137S11 NS; -CALC-823 PO; -REGADENOSON 0.4 MG/5 ML SYR IV ONE; -RIVA20TA PO; -TEZE210P SQ
[2023-09-14] MEDS ORDERED: NS IV 1000 ML 1,000 ML IV SCH ×3 (11:15→13:15)
--- NOTE | 2023-09-14 11:37 | Diagnostic Imaging Report ---
INDICATION: Abnormal stress test. COMPARISON: 07/25/2023. FINDINGS: Left IJ catheter tip at the low SVC is stable. Cardiomegaly is unchanged. No focal consolidation, failure pattern, effusion, or pneumothorax. IMPRESSION: Stable chest. Dictated by: Dictated on workstation # [id number]
[2023-09-14] MEDS ORDERED: HEParin (CATH LAB) 2,000 ML IV ONE (11:49)
[2023-09-14] MEDS ORDERED: NS IV 1000 ML 1,000 ML ONE (11:49)
[2023-09-14] MEDS ORDERED: LIDOCAINE 1% INJ 20 ML VIAL ONE (11:49)
--- NOTE | 2023-09-14 11:50 | Cardiac Procedure Note-CS/ASA ---
Pre-Procedure Note Pre-Op Procedure Note Date of Available H&P: Sep 08, 2023 Date H&P Reviewed: Sep 14, 2023 Time H&P Reviewed: 11:49 History & Physical: H&P Reviewed, Patient Examed, No changes noted Pre-Operative Diagnosis: CAD Moderate Sedation PreProcedure Time 11:50 ASA Score 3 Airway Lungs Heart ASA score ASA 1: a normal healthy patient ASA 2: a patient with a mild systemic disease (mid diabetes, controlled hypertension, obesity ASA 3: a patient with a severe systemic disease that limits activity (angina, COPD, prior Myocardial infarction) ASA 4: a patient with an incapacitating disease that is a constant threat to life (CHF, renal failure) ASA 5: a moribund patient not expected to survive 24 hrs. (ruptured aneurysm) ASA 6: a declared brain- patient whose organs are being harvested. For emergent operations, add the letter E after the classification Mallampati Classification Grade 3 Sedation Plan Analgesia, Amnesia, Plan communicated to team members, Discussed options with patient/fam, Discussed risks with patient/fam The patient is an appropriate candidate to undergo the planned procedure, sedation, and anesthesia. The patient immediately re-assessed prior to indication. BELLE HEAD MD Sep 14, 2023 11:50
[2023-09-14 11:52] LABS: HEMATOCRIT 39 % (35-52); HEMOGLOBIN 12.4 g/dL (11.5-16.0); MEAN CORPUSCULAR HEMOGLOBIN 30 pg (25-34); MEAN CORPUSCULAR HGB CONC 32 g/dL (32-36); MEAN CORPUSCULAR VOLUME 95 fL (80-99); MEAN PLATELET VOLUME 9.5 fL (9.0-12.2); PLATELET COUNT 296 10^3/uL (130-400); WHITE BLOOD COUNT 5.3 10^3/uL (4.3-11.0)
[2023-09-14 12:05] LABS: ALBUMIN 3.8 GM/DL (3.2-4.5); POTASSIUM 4.1 MMOL/L (3.6-5.0)
[2023-09-14 12:06] LABS: CALCIUM 9.5 MG/DL (8.5-10.1)
[2023-09-14] MEDS ORDERED: VERAPAMIL 5 MG/2 ML (CALAN) VIAL IV ONE (12:07)
[2023-09-14] MEDS ORDERED: MIDAZOLAM INJ 5 MG/5 ML VIAL ONE (12:07)
[2023-09-14] MEDS ORDERED: fentaNYL INJECTION 100 MCG/2 ML VIAL ONE (12:07)
[2023-09-14 12:08] LABS: TOTAL PROTEIN 7.1 GM/DL (6.4-8.2)
[2023-09-14] MEDS ORDERED: NITRO DRIP 25000 MCG/D5W 250 ML IV ONE (12:08)
[2023-09-14] MEDS ORDERED: HEParin 1000 UNIT/ML (10ML VIAL) FOR BOLUS ONE (12:08)
[2023-09-14 12:09] LABS: BILIRUBIN,TOTAL 0.5 MG/DL (0.1-1.0)
[2023-09-14 12:11] LABS: CREATININE SERUM 1.24 MG/DL (0.60-1.30)
[2023-09-14 12:13] LABS: PROTHROMBIN TIME PATIENT 13.6 SEC (12.2-14.7)
[2023-09-14] MEDS ORDERED: TEZE210P SQ (12:39)
[2023-09-14] MEDS ORDERED: PRED5TAB PO (12:39)
[2023-09-14] MEDS ORDERED: CALC-823 PO (12:39)
[2023-09-14] MEDS ORDERED: AZEL137S11 NS (12:39)
[2023-09-14] MEDS ORDERED: RIVA20TA PO (12:39)
--- NOTE | 2023-09-14 13:17 | Discharge Inst-Post CATH ---
Discharge Inst-CATH/EP Problems Reviewed?: Yes Post Cardiac Cath/EP D/C Inst Follow Up/Plan Appointment with Dr. Somers's office in 2 to 4 weeks <b>CARDIAC CATH/EP PROCEDURE DISCHARGE INSTRUCTIONS</b> ACTIVITY * Go Home directly and rest. * Limit activity of the leg (or wrist if it was used) for 7 days including aer obics, swimming, jogging, bicycling, etc. * Restrict stair-climbing for 7 days if possible, if not, climb up with your non-cath leg, then bring together on the same step. * Avoid lifting, pushing, pulling or excessive movement of the affected extremi ty for 7 days. * Customary sexual activity may be resumed after 2 days-use caution not to use a position that strains or causes pain to the affected extremity. * No driving for 24 hours. * NO SMOKING. * Avoid straining for bowel movements for 7 days. * Gentle walking on level ground is allowed. * Returning to work will depend on the type of procedure and the results. Your doctor will discuss this with you. CALL YOUR DOCTOR FOR ANY OF THE FOLLOWING: *If bleeding from the puncture site occurs- Apply gentle pressure to site with clean cloth and call your doctor or EMS. * If a knot or lump forms under the skin, increases in size, or causes pain. * If bruising appears to be worsening or moving further down your leg instead of disappearing. * Temperature above 101 F. CARE OF YOUR GROIN INCISION; * Bruising or purple discoloration of the skin near the puncture site is common. * You may shower only, no bathtub bathing for 5 days. Be careful to avoid slipping as your leg may feel stiff. * If a closure device was used on your femoral artery, please see the attached guide regarding care of the device and your leg. * Leave dressing on FOR 24 hours. CARE OF YOUR WRIST INCISION; * Bruising or purple discoloration of the skin near the puncture site is common. * You may shower. * DO NOT submerge wrist. * Leave dressing on FOR 24 hours. BELLE SOMERS MD Sep 14, 2023 13:17
--- NOTE | 2023-09-14 13:24 | Cardiac Cath Report ---
Cardiac Cath Report Physician (s)/Bobbin Cleaner Hand (s) Physician BELLE HEAD MD Pre-Procedure Diagnosis Pre-Procedure Diagnosis: CAD Post-Procedure Note Procedure Start Date: Sep 14, 2023 Name of Procedure: Left heart catheterization IFR to LAD Findings/Procedure Note PROCEDURE NOTE: 63-year-old lady with history of coronary artery disease, hypertension hyperlipidemia, has been having chest pain, had abnormal stress test, cardiac catheterization was advised. After explaining the procedure to the patient, all pros and cons were explained, all questions were answered. The patient signed the consent and then she was placed in the cardiac catheterization laboratory. Groin was prepped in SL fashion local anesthesia was used. Sheath placed in the right radial artery, [place] catheter was advanced to the left ventricular cavity, pressure was measured, pullback LV to aorta was done. Engaged the right and the left coronary system and angiogram was done. Patient has a lesion in the mid LAD involving the mid LAD and the ostium of a large diagonal artery. I decided to evaluate IFR I attempted with Doyle left guide without success then used a EBU 3.5 guide. iFR wire was advanced and parked in the diagonal artery and baseline IFR was 0.91. I was unable to advance it to the proper LAD due to the tortuosity, I advanced a run-through wire to the distal LAD then I used it as radial and the guide in moving the IFR wire. IFR was measured and it was 0.91. I did a pullback and there was step up at that area. Probably 60 to 70% stenosis. I decided with conservative management due to the IFR 0.91 and due to the fact that it is a bifurcating lesion At the end of the procedure the sheath was removed. Vascular band was used FINDINGS: Hemodynamics LV 117/8, end-diastolic pressure of 8 Aorta 113/84 mean of 96 ANATOMY: Left Main is free of obstructive disease Left Anterior Descending has 70% stenosis in the mid LAD tortuous lesion bifurcating lesion involving the ostium of a large diagonal artery. iFR through the proper LAD 0.91 and through the diagonal artery 0.91. Left Circumflex is moderate in size with no obstructive disease Right Coronary Artery is large dominant artery with no obstructive disease LV Gram was not done, pressure was measured CONCLUSION: 60 to 70% stenosis in the mid LAD tortuous artery with an acute angle, bifurcating lesion involving the ostium of a large diagonal artery slightly larger than the proper LAD. iFR through the diagonal artery 0.91 and through t he proper LAD is 0.91 Dominant right coronary artery with otherwise nonobstructive disease Normal left ventricular end-diastolic pressure DISCUSSION AND RECOMMENDATION: Continue to maximize medical therapy. No intervention is warranted Anesthesia Type: Conscious Sedation Estimated blood loss (mL): 25 ml Contrast Amount: 100 ml Total Radiation Dose: 1775 mGy Post-Procedure Diagnosis Post-operative diagnosis: Chest pain Coronary artery disease Hypertension Hyperlipidemia BELLE HEAD MD Sep 14, 2023 13:24
== END 2023-09-14 16:40 | disposition home or self-care (01) ==
LOC: CATH 10:59 → SDC 13:34 → CATH 16:40
PROVIDERS: ATTEND Internal Medicine Cardiovascular Disease
DX: I25.10 Atherosclerotic heart disease of native coronary artery without angina pectoris (principal); I10 Essential (primary) hypertension; E78.2 Mixed hyperlipidemia; G70.00 Myasthenia gravis without (acute) exacerbation; E66.9 Obesity, unspecified; R94.39 Abnormal result of other cardiovascular function study; J44.9 Chronic obstructive pulmonary disease, unspecified; G47.33 Obstructive sleep apnea (adult) (pediatric); I65.23 Occlusion and stenosis of bilateral carotid arteries; M06.9 Rheumatoid arthritis, unspecified; E11.9 Type 2 diabetes mellitus without complications; Z79.01 Long term (current) use of anticoagulants; Z68.44 Body mass index [BMI] 60.0-69.9, adult; Z86.718 Personal history of other venous thrombosis and embolism; Z99.81 Dependence on supplemental oxygen; Z79.890 Hormone replacement therapy; Z79.4 Long term (current) use of insulin
CPT/HCPCS: 71045; 80053; 80061; 85027; 85610; 85730; 87081; 93005; 93458; 93571; C1769 ×3; C1887 ×2; C1894; 36415

== ENCOUNTER → 2023-09-21 | Outpatient (CLI) | payer MEDICARE, OTHER ==
[~2023-09-21] VITALS: Wt 171.0 kg
[~2023-09-21] MED LIST changes: +AZEL137S11 NS; +CALC-823 PO; +RIVA20TA PO; +TEZE210P SQ; +TEZEPELUMAB-EKKO 210 MG/1.91 ML SYRINGE SQ SCH
[2023-09-21 09:16] VITALS: BP 150/68
== END ==
LOC: SDC 08:45
PROVIDERS: ATTEND Internal Medicine Critical Care Medicine
DX: J45.50 Severe persistent asthma, uncomplicated (principal); J45.998 Other asthma
CPT/HCPCS: 96372

== ENCOUNTER 2023-10-20 18:59 | Inpatient (IN) | payer MEDICARE, OTHER ==
[~2023-10-20] VITALS: Ht 167.6 cm; Wt 174.7 kg
[~2023-10-20 18:59] MED LIST changes: -AMOX1TAB12 PO; -DEXA2TAB PO
[2023-10-20] MEDS ORDERED: oxyCODONE IMMEDIATE RELEASE 5 MG TABLET PO PRN (19:15)
[2023-10-20] MEDS ORDERED: ANTACID SUSPENSION 30 ML UDC PO PRN (19:15)
[2023-10-20] MEDS ORDERED: CALCIUM CARBONATE 500 MG CHEW TABLET PO PRN (19:15)
[2023-10-20] MEDS ORDERED: LACTULOSE SYRUP 10GM/15ML 30ML UDC PO PRN (19:15)
[2023-10-20] MEDS ORDERED: ONDANSETRON INJECTION 4 MG/2 ML (SDV) IV PRN (19:15)
[2023-10-20] MEDS ORDERED: guaiFENesin/CODEINE 10ML UDC PO PRN (19:15)
[2023-10-20] MEDS ORDERED: MELATONIN 3 MG TABLET PO PRN (19:15)
[2023-10-20] MEDS ORDERED: diphenhydrAMINE INJ 50 MG/ML VIAL IVP PRN (19:15)
[2023-10-20] MEDS ORDERED: diphenhydrAMINE 25 MG TABLET PO PRN (19:15)
[2023-10-20] MEDS ORDERED: ONDANSETRON 4 MG ORAL DISSOLVE TABLET PO PRN (19:15)
[2023-10-20] MEDS ORDERED: HYDROmorphone INJECTION 2 MG/ML VIAL IV PRN (19:15)
[2023-10-20] MEDS ORDERED: BISACODYL 10 MG SUPPOSITORY PR PRN (19:15)
[2023-10-20] MEDS ORDERED: MILK OF MAGNESIA 400 MG/5 ML 30 ML UDC PO PRN (19:15)
[2023-10-20] MEDS ORDERED: ACETAMINOPHEN 325 MG TABLET PO PRN (19:15)
[2023-10-20] MEDS ORDERED: NS IV 1000 ML 1,000 ML IV SCH (19:15)
[2023-10-20] MEDS ORDERED: ALPRAZolam 0.5 MG TABLET PO PRN (19:30)
--- NOTE | 2023-10-20 19:35 | Progress Note ---
Progress Note Pt is a 63 y/o F presenting for a fever.Pt is not presenting with a fever but reports all week she has had a fever. Pt's reports she had a 103- degree fever last night. Pt reports she feels like crap and has a sore throat. Pt got her Tezspire injection yesterday. She gets it once a month. Pt reports her O2 is staying up but her blood sugar is all over the place. Pt reports she did three treatments today and she is down to 10 mg of her steroid from 20 mg. I informed the Pt she looks fatigued. Pt reports she slept eleven hours last night and she is not a sleeper. Pt reports her throat hurts all the time, but only on one side so she thinks it is a tonsil. Pt denies coughing anything up, it just feels really tight. Pt asked what she could do to get better. Pt reports she ate cream of wheat this afternoon and her blood sugar jumped to 327. I told her she needs to get labs and a chest X-ray and to test for the flu. I will review all of that and then she will call me tomorrow morning to check in. Pt reports she thinks she is drinking enough fluids but her disagrees. I stated it could just be a viral deal because the Augmentin was good and should've worked. I informed the Pt I don't think she is bad enough to be admitted to the hospital, but if anything is worrisome after her X-ray and labs then I will admit her. Scribed By: Joi Aguilar. FABIENNE ZAMORA DO Oct 20, 2023 19:35
[2023-10-20 19:45] VITALS: BP 165/76
[2023-10-20 20:00] VITALS: BP 147/75
[2023-10-20] MEDS ORDERED: RT-Ipratropium/Albuterol NEB 3 ML VIAL INH PRN (20:45)
[2023-10-20] MEDS: RT-HYPERTONIC SALINE 3% 4 ML NEB INH SCH (20:49)
[2023-10-20] MEDS ORDERED: RT-Ipratropium/Albuterol NEB 3 ML VIAL ONE (20:51)
[2023-10-20] MEDS: RT-Ipratropium/Albuterol NEB 3 ML VIAL INH SCH (20:53)
[2023-10-20 21:00] VITALS: BP 159/72
[2023-10-20] MEDS ORDERED: [UNRECOGNIZED DRUG - REMARK] PO SCH (21:00)
[2023-10-20] MEDS: dexAMETHasone INJ 4 MG/ML SDV IV SCH (21:05)
[2023-10-20] MEDS: CEFEPIME INJECTION 1,000 MG in NS (IVPB) 50 ML 50 ML IV SCH (21:05)
[2023-10-20] MEDS: PANTOPRAZOLE 40 MG TABLET PO SCH (21:06)
[2023-10-20] MEDS: LORATADINE 10 MG TABLET PO SCH (21:06)
[2023-10-20] MEDS: DOCUSATE SODIUM 100 MG CAPSULE PO SCH (21:06)
[2023-10-20] MEDS: BENZONATATE 100 MG CAPSULE PO SCH (21:06)
[2023-10-20] MEDS: MELATONIN 10 MG TABLET PO SCH (21:06)
[2023-10-20] MEDS: SENNOSIDES 8.6 MG TABLET PO SCH (21:07)
[2023-10-20] MEDS: cloNIDine 0.1 MG TABLET PO SCH (21:07)
[2023-10-20] MEDS: inSUlin ASPART 1 UNIT/0.01 ML (PER UNIT) SC SCH (21:18)
[2023-10-20] MEDS: NS IV 1000 ML 1,000 ML IV SCH (23:05)
[2023-10-20 23:36] VITALS: BP 185/82
[2023-10-20] MEDS: cloNIDine 0.1 MG TABLET PO PRN (23:43)
[2023-10-21] VITALS (11 sets, daily range): BP systolic 120–181; BP diastolic 72–104
[2023-10-21] MEDS: CEFEPIME INJECTION 1,000 MG in NS (IVPB) 50 ML 50 ML IV SCH ×4 (02:06→19:37)
[2023-10-21] MEDS: cloNIDine 0.1 MG TABLET PO PRN (04:05)
[2023-10-21] MEDS: NS IV 1000 ML 1,000 ML IV SCH ×2 (05:05→08:25)
[2023-10-21 05:26] LABS: BASOPHILS % (AUTO) 0 % (0-10); EOSINOPHILS % (AUTO) 0 % (0-10); HEMATOCRIT 33 % (35-52); HEMOGLOBIN 10.2 g/dL (11.5-16.0); LYMPHOCYTES # (AUTO) 0.6 10^3/uL (1.0-4.0); LYMPHOCYTES % (AUTO) 7 % (12-44); MEAN CORPUSCULAR HEMOGLOBIN 30 pg (25-34); MEAN CORPUSCULAR HGB CONC 31 g/dL (32-36); MEAN CORPUSCULAR VOLUME 97 fL (80-99); MEAN PLATELET VOLUME 9.5 fL (9.0-12.2); MONOCYTES # (AUTO) 0.3 10^3/uL (0.0-1.0); MONOCYTES % (AUTO) 3 % (0-12); NEUTROPHILS # (AUTO) 7.6 10^3/uL (1.8-7.8); NEUTROPHILS % (AUTO) 89 % (42-75); PLATELET COUNT 272 10^3/uL (130-400); WHITE BLOOD COUNT 8.6 10^3/uL (4.3-11.0)
[2023-10-21 05:50] LABS: ALBUMIN 3.4 GM/DL (3.2-4.5); BILIRUBIN,TOTAL 0.2 MG/DL (0.1-1.0); CALCIUM 8.6 MG/DL (8.5-10.1); CREATININE SERUM 0.88 MG/DL (0.60-1.30); POTASSIUM 4.8 MMOL/L (3.6-5.0); TOTAL PROTEIN 5.9 GM/DL (6.4-8.2)
[2023-10-21 06:01] LABS: BASOPHILS % (MANUAL) 1 %; LYMPHOCYTES % (MANUAL) 8 %; MONOCYTES % (MANUAL) 3 %; NEUTROPHILS % (MANUAL) 88 %; POLYCHROMASIA SLIGHT
[2023-10-21] MEDS: BENZONATATE 100 MG CAPSULE PO SCH ×3 (06:08→22:32)
[2023-10-21] MEDS: LEVOTHYROXINE 50 MCG TABLET PO SCH (06:09)
[2023-10-21] MEDS: inSUlin ASPART 1 UNIT/0.01 ML (PER UNIT) SC SCH ×4 (06:09→21:16)
[2023-10-21] MEDS ORDERED: FLU HIGH DOSE (65+ YOA) 240 MCG/0.7 ML 2023-24 (FLUZONE) IM ONE (07:00)
--- NOTE | 2023-10-21 07:09 | History & Physical ---
LARY KENNEDY 10/21/23 0709: History of Present Illness History of Present Illness Reason for visit/HPI Pt is a 63 y/o F who presented yesterday to the hospital for a fever that she has had all week. Her noted that she had a 103-degree fever 2 nights ago. Pt also states that she feels unwell and has a sore throat. She reports fatigue with increased time sleeping. Reports that her throat hurts constantly, but only on one side so she thinks it may be a tonsil. Pt denies coughing anything up, but notes tightness. Pt reports her O2 is staying up but her blood sugar is variable. Today, pt is doing well, although she states that she gets fairly SOB when getting up to go to the restroom. Reports chest tightness that she associates with her trouble breathing. She states that she is on O2 3L at baseline normally d/t COPD and long COVID. Getting O2 via nasal cannula on 2 L, 97% sat. Date of Admission Oct 20, 2023 at 19:39 Date Seen by a Provider: Oct 21, 2023 Time Seen by a Provider: 07:08 I consulted on this patient on 10/21/23 07:08 Attending Physician Shayla Zamora DO Admitting Physician Admitting Physician: Shayla Zamora DO Attending Physician: Shayla Zamora DO Consult Allergies and Home Medications Allergies Coded Allergies: adhesive tape (Verified Allergy, Intermediate, 01/25/23) BLISTERS AND RAW SKIN almond (Verified Allergy, Intermediate, Abdominal Pain, 01/25/23) Pt states having pain when she eat them. amlodipine (Verified Allergy, Unknown, 01/25/23) erythromycin base (Verified Allergy, Unknown, 01/25/23) Patient Home Medication List Home Medication List Reviewed: Yes Albuterol Sulfate (Ventolin Hfa) 90 Mcg Hfa.aer.ad, 2 PUFF IH Q4H PRN for SHORTNESS OF BREATH, (Reported) Entered as Reported by: MANGO DE LA TORRE on 04/26/22 0938 Alprazolam (Alprazolam) 0.5 Mg Tablet, 0.5 MG PO Q8H PRN for ANXIETY, (Reported) Entered as Reported by: NITO BREWER on 10/16/21 1125 Last Action: Continued Atorvastatin Calcium (Atorvastatin Calcium) 20 Mg Tablet, 20 MG PO DAILY, (Reported) Entered as Reported by: NE GARRETT on 03/31/18 0950 Azathioprine (Imuran) 50 Mg Tablet, 100 MG PO BID, (Reported) Entered as Reported by: NITO BREWER on 10/16/21 1125 Azelastine HCl (Azelastine HCl) 137 Mcg (0.1 %) [place].pump, 1 SPRAY NS DAILY, (Reported) Entered as Reported by: PRUDENCE CLEVELAND on 09/14/23 1239 Azithromycin (Azithromycin) 250 Mg Tablet, 250 MG PO DAILY, (Reported) Entered as Reported by: MANGO DE LA TORRE on 04/26/22 0927 Last Action: Continued Budesonide (Budesonide) 0.5 Mg/2 Ml Ampul.neb, 0.5 MG NEB BID, (Reported) Entered as Reported by: NITO BREWER on 12/30/22 1357 Budesonide/Glycopyr/Formoterol (Breztri Aerosphere Inhaler) 160 Mcg-9 Mcg-4.8 Mcg/Actuation Hfa.aer.ad, 2 PUFF IH BID, (Reported) Entered as Reported by: MANGO DE LA TORRE on 04/26/22 0955 Calcium Carbonate (Calcium) 500 Mg Calcium (1250 Mg) Tablet, 500 MG PO BID, (Reported) Entered as Reported by: PRUDENCE CLEVELAND on 09/14/23 1239 Cetirizine HCl (All Day Allergy) 10 Mg Tablet, 10 MG PO BID, (Reported) Entered as Reported by: INTO BREWER on 10/06/20 1532 Last Action: Converted Cholecalciferol (Vitamin D3) (Vitamin D3) 25 Mcg (1000 Unit) Tablet, 25 MCG PO DAILY, (Reported) Entered as Reported by: NITO BREWER on 02/11/23 1059 Clonidine HCl (Clonidine HCl) 0.1 Mg Tablet, 0.1 MG PO BID, (Reported) Entered as Reported by: NITO BREWER on 12/30/22 1357 Last Action: Continued Duloxetine HCl (Duloxetine HCl) 30 Mg Capsule.dr, 30 MG PO DAILY, (Reported) Entered as Reported by: NITO BREWER on 07/26/23 1150 Last Action: Continued Ezetimibe (Ezetimibe) 10 Mg Tablet, 10 MG PO DAILY, (Reported) Entered as Reported by: NITO BREWER on 02/11/23 1059 Fluticasone Propionate (Fluticasone Propionate) 50 Mcg/Actuation [place].susp, 1 SPRAY NSEACH HS, (Reported) Entered as Reported by: NITO BREWER on 10/16/21 1125 Furosemide (Furosemide) 40 Mg Tablet, 40 MG PO DAILY PRN for FLUID RETENTION, (Reported) Entered as Reported by: MARIIA ALEJANDRO on 12/25/20 1838 Glyburide (Glyburide) 5 Mg Tablet, 5 MG PO DAILY, (Reported) Entered as Reported by: NITO BREWER on 03/11/23 1155 Last Action: Converted Insulin Detemir (Levemir Flexpen) 100 Unit/Ml (3 Ml) Insuln.pen, 20 UNIT SQ BID, (Reported) Entered as Reported by: NITO BREWER on 07/26/23 1150 Insulin Regular, Human (NovoLIN R Flexpen) 100 Unit/Ml (3 Ml) Insuln.pen, 5 UNIT SQ AC PRN for BS>200, (Reported) Entered as Reported by: NITO BREWER on 07/26/23 1150 Ipratropium/Albuterol Sulfate (Iprat-Albut 0.5-3(2.5) mg/3 ml) 0.5 Mg-3 Mg (2.5 Mg Base)/3 Ml Ampul.neb, 3 ML NEB TID PRN for SHORTNESS OF BREATH, (Reported) Entered as Reported by: MANGO DE LA TORRE on 04/26/22 0938 Levothyroxine Sodium (Levothyroxine Sodium) 50 Mcg Tablet, 50 MCG PO DAILY, (Reported) Entered as Reported by: VIVEK ROJAS on 07/31/15 1558 Last Action: Continued Losartan Potassium (Losartan Potassium) 50 Mg Tablet, 50 MG PO DAILY, (Reported) Entered as Reported by: NITO BREWER on 10/06/20 1530 Last Action: Continued Melatonin (Melatonin) 10 Mg Tablet, 20 MG PO HS, (Reported) Entered as Reported by: NITO BREWER on 04/29/21 1240 Last Action: Continued Montelukast Sodium (Montelukast Sodium) 10 Mg Tablet, 10 MG PO DAILY, (Reported) Entered as Reported by: NE GARRETT on 03/31/18 0950 Last Action: Continued Pantoprazole Sodium (Pantoprazole Sodium) 40 Mg Tablet.dr, 40 MG PO BID, (Reported) Entered as Reported by: NITO BREWER on 08/12/20 0919 Last Action: Continued Potassium Chloride (Potassium Chloride) 20 Meq Tablet.er, 20 MEQ PO BID, (Reported) Entered as Reported by: NITO BREWER on 01/27/21 0947 Prednisone (Prednisone) 5 Mg Tablet, 5 MG PO DAILY, (Reported) Entered as Reported by: PRUDENCE CLEVELAND on 09/14/23 1239 Rivaroxaban (Xarelto) 20 Mg Tablet, 20 MG PO HS, (Reported) Entered as Reported by: PRUDENCE CLEVELAND on 09/14/23 1239 Semaglutide (Ozempic) 1 Mg/0.75 Ml (4 Mg/3 Ml) Pen.injctr, 0.5 MG SQ SUN, (Reported) Entered as Reported by: NITO BREWER on 07/26/23 1150 Tezepelumab-Ekko (Tezspire) 210 Mg/1.91 Ml (110 Mg/Ml) Pen.injctr, 210 MG SQ MONTHLY, (Reported) Entered as Reported by: PRUDENCE CLEVELAND on 09/14/23 1239 Triamterene/Hydrochlorothiazid (Triamterene-Hctz 37.5-25 mg Cp) 1 Each Capsule, 1 CAP PO DAILY, (Reported) Entered as Reported by: NE GARRETT on 03/31/18 0950 Last Action: Converted Venlafaxine HCl (Venlafaxine HCl ER) 75 Mg Cap.er.24h, 75 MG PO DAILY, (Reported) Entered as Reported by: NITO BREWER on 06/05/21 1345 Last Action: Continued [Hyper-Jasen] 3.5% NEBU, 4 ML NEB BID, (Reported) Entered as Reported by: NITO BREWER on 07/26/23 1150 Past Sieyenf-Stpuyu-Bmmvtc Hx Patient Social History Tobacco Use?: No Use of E-Cig and/or Vaping dev: No Substance use?: No Alcohol Use?: No Pt feels they are or have been: No Immunizations Up To Date Date of Influenza Vaccine: Aug 14, 2022 First/Initial COVID19 Vaccinat: 12/04 Second COVID19 Vaccination Yousuf: 01/04 Tetanus Booster (TDap): Unknown Hepatitis A: No Hepatitis B: No PED Vaccines UTD: Yes Date of Pneumonia Vaccine: Jan 04, 2018 Seasonal Allergies Seasonal Allergies: Yes Current Status status: No status: No Advance Directives: Yes Advance Directive Location: Scanned into EMR Communicates: Verbally Primary Language: [place] Preferred Spoken Language: [place] Is interpretation needed?: No Sensory deficits: Vision impairment Implanted or Applied Medical D: Other Past Medical History Surgeries: Lumpectomy, Orthopedic Asthma, Pneumonia, Chronic Bronchitis, Pulmonary Embolism, COPD Currently Using CPAP: Yes Currently Using BIPAP: No High Cholesterol, Hypertension Neuropathy [employer] History: Menopausal Sexually Transmitted Disease: No Bladder Infection Gastroesophageal Reflux Rheumatoid Arthritis Diabetes, Insulin dep, Hypothyroidsim Cataract, Tinnitis Loss of Vision: Denies Hearing Impairment: Denies Anxiety Blood Disorders: No Adverse Reaction/Blood Tranf: No Dx Myasthenia Gravis 07/2020 Family Medical History Alcoholism G8 BROTHER G8 SISTER Alzheimer's disease 19 MOTHER Arthritis 19 FATHER Asthma G8 SISTER Cardiovascular disease 19 FATHER Cataracts 19 FATHER Coronary thrombosis 19 FATHER Deafness or hearing loss SON Diabetes mellitus 19 FATHER G8 SISTER G8 SISTER Drug abuse G8 SISTER Hypertension 19 FATHER G8 SISTER G8 SISTER Kidney disease 19 FATHER Respiratory disorder G8 SISTER G8 SISTER Seizure disorder SON Severe allergy SON Heart Disease, Diabetes, Hypertension Review of Systems Constitutional: No chills, No fever; malaise EENTM: throat pain; No vision loss, No throat swelling Respiratory: cough, dyspnea on exertion; No hemoptysis; orthopnea, short of breath; No wheezing Cardiovascular: No chest pain, No palpitations Gastrointestinal: No abdominal pain, No diarrhea, No hematemesis, No heartburn Genitourinary: No decreased output, No discharge Musculoskeletal: No muscle pain, No muscle cramps Skin: No pruritus, No rash Psychiatric/Neurological: Denies Headache, Denies Numbness Physical Exam Vital Signs Vital Signs - First Documented 10/20/23 10/20/23 10/20/23 19:45 20:00 23:36 Temp 36.5 Pulse 81 Resp 12 B/P (MAP) 165/76 (105) Pulse Ox 99 O2 Delivery Nasal Cannula O2 Flow Rate 2.00 Capillary Refill : Height, Weight, BMI Height: 5'6.00" Weight: 297lbs. 0.0oz. [id number]; 62.19 BMI Method:Stated General Appearance: No Apparent Distress, Chronically ill, Obese Eyes: Bilateral Eye Normal Inspection HEENT: TMs Normal, Normal ENT Inspection, Pharynx Normal Neck: Normal Inspection, Non Tender, Supple Respiratory: Chest Non Tender, No Accessory Muscle Use, No Respiratory Distress, Crackles (mild); No Wheezing Cardiovascular: Regular Rate, Rhythm, No Edema, No Murmur, Normal Peripheral Pulses Gastrointestinal: Normal Bowel Sounds, Non Tender, Soft Extremity: Normal Capillary Refill, Normal Inspection, Non Tender, No Calf Tenderness, No Pedal Edema Neurologic/Psychiatric: Alert, Oriented x3, No Motor/Sensory Deficits, Normal Mood/Affect Skin: Normal Color, Warm/Dry Lymphatic: No Adenopathy Assessment/Plan Assessment and Plan Acute hypoxic hypercapnia resp failure- improving Sepsis COPD excerbation vs pneumonia or both Long COVID - Continue cefepime and azithromycin - CXR today significant for enlarged heart with mild edema - Today WBC is nl at 8.2. Lactic acid is nl. - Cultures pending (sputum and blood) - Breathing treatments including corticosteroids, montelukast, and duoneb - O2 on 2 L currently w/ sat 98% - PT/OT HTN - Clonidine - Triamterene/HCTZ - Losartan DM Episode of hypoglycemia with reported glucose of 45 - Sliding scale insulin. - Glyburide Hypothyroid - Levothyroxine 50 mcg DVT prophylaxis: rivaroxaban Move down to 4th today Admission Diagnosis Admission Status: Inpatient Order (span 2 midnights) SHAYLA ZAMORA 10/22/23 0534: History of Present Illness History of Present Illness Reason for visit/HPI Chief complaint: Fever with sepsis HPI: This is a 63-year-old female clinic patient of [email or web address] who has a history of long COVID along with RALPH on CPAP, oxygen dependent asthma, morbid obesity, RA and myasthenia gravis along with diabetes and malignant hypertension and hyperlipidemia with hypothyroidism who presents as a direct admission 2 hours after seen in the clinic for abnormal labs and continued fever. Her lactic acid was 3.3 glucose was 45. Patient received IV fluids overnight and IV antibiotics empirically and repeat chest x-ray showed no evidence of definite infiltrate so bacterial bronchitis exacerbation COPD was diagnosis Allergies and Home Medications Allergies Coded Allergies: adhesive tape (Verified Allergy, Intermediate, 01/25/23) BLISTERS AND RAW SKIN almond (Verified Allergy, Intermediate, Abdominal Pain, 01/25/23) Pt states having pain when she eat them. amlodipine (Verified Allergy, Unknown, 01/25/23) erythromycin base (Verified Allergy, Unknown, 01/25/23) Patient Home Medication List Home Medication List Reviewed: Yes Albuterol Sulfate (Ventolin Hfa) 90 Mcg Hfa.aer.ad, 2 PUFF IH Q4H PRN for SHORTNESS OF BREATH, (Reported) Entered as Reported by: MANGO DE LA TORRE on 04/26/22 0938 Alprazolam (Alprazolam) 0.5 Mg Tablet, 0.5 MG PO Q8H PRN for ANXIETY, (Reported) Entered as Reported by: NITO BREWER on 10/16/21 1125 Last Action: Continued Atorvastatin Calcium (Atorvastatin Calcium) 20 Mg Tablet, 20 MG PO DAILY, (Reported) Entered as Reported by: NE GARRETT on 03/31/18 0950 Azathioprine (Imuran) 50 Mg Tablet, 100 MG PO BID, (Reported) Entered as Reported by: NITO BREWER on 10/16/21 1125 Azelastine HCl (Azelastine HCl) 137 Mcg (0.1 %) [place].pump, 1 SPRAY NS DAILY, (Reported) Entered as Reported by: PRUDENCE CLEVELAND on 09/14/23 1239 Azithromycin (Azithromycin) 250 Mg Tablet, 250 MG PO DAILY, (Reported) Entered as Reported by: MANGO DE LA TORRE on 04/26/22 0927 Last Action: Continued Budesonide (Budesonide) 0.5 Mg/2 Ml Ampul.neb, 0.5 MG NEB BID, (Reported) Entered as Reported by: NITO BREWER on 12/30/22 1357 Budesonide/Glycopyr/Formoterol (Breztri Aerosphere Inhaler) 160 Mcg-9 Mcg-4.8 Mcg/Actuation Hfa.aer.ad, 2 PUFF IH BID, (Reported) Entered as Reported by: MANGO DE LA TORRE on 04/26/22 0955 Calcium Carbonate (Calcium) 500 Mg Calcium (1250 Mg) Tablet, 500 MG PO BID, (Reported) Entered as Reported by: PRUDENCE CLEVELAND on 09/14/23 1239 Cetirizine HCl (All Day Allergy) 10 Mg Tablet, 10 MG PO BID, (Reported) Entered as Reported by: NITO BREWER on 10/06/20 1532 Last Action: Converted Cholecalciferol (Vitamin D3) (Vitamin D3) 25 Mcg (1000 Unit) Tablet, 25 MCG PO DAILY, (Reported) Entered as Reported by: NITO BREWER on 02/11/23 1059 Clonidine HCl (Clonidine HCl) 0.1 Mg Tablet, 0.1 MG PO BID, (Reported) Entered as Reported by: NITO BREWER on 12/30/22 1357 Last Action: Continued Duloxetine HCl (Duloxetine HCl) 30 Mg Capsule.dr, 30 MG PO DAILY, (Reported) Entered as Reported by: NITO BREWER on 07/26/23 115 Last Action: Continued Ezetimibe (Ezetimibe) 10 Mg Tablet, 10 MG PO DAILY, (Reported) Entered as Reported by: NITO BREWER on 02/11/23 105 Fluticasone Propionate (Fluticasone Propionate) 50 Mcg/Actuation [place].susp, 1 SPRAY NSEACH HS, (Reported) Entered as Reported by: NITO BREWER on 10/16/21 1125 Furosemide (Furosemide) 40 Mg Tablet, 40 MG PO DAILY PRN for FLUID RETENTION, (Reported) Entered as Reported by: MARIIA ALEJANDRO on 12/25/20 1838 Glyburide (Glyburide) 5 Mg Tablet, 5 MG PO DAILY, (Reported) Entered as Reported by: NITO BREWER on 03/11/23 1155 Last Action: Converted Insulin Detemir (Levemir Flexpen) 100 Unit/Ml (3 Ml) Insuln.pen, 20 UNIT SQ BID, (Reported) Entered as Reported by: NITO BREWER on 07/26/23 115 Insulin Regular, Human (NovoLIN R Flexpen) 100 Unit/Ml (3 Ml) Insuln.pen, 5 UNIT SQ AC PRN for BS>200, (Reported) Entered as Reported by: NITO BREWER on 07/26/23 115 Ipratropium/Albuterol Sulfate (Iprat-Albut 0.5-3(2.5) mg/3 ml) 0.5 Mg-3 Mg (2.5 Mg Base)/3 Ml Ampul.neb, 3 ML NEB TID PRN for SHORTNESS OF BREATH, (Reported) Entered as Reported by: MANGO DE LA TORRE on 04/26/22 0938 Levothyroxine Sodium (Levothyroxine Sodium) 50 Mcg Tablet, 50 MCG PO DAILY, (Reported) Entered as Reported by: VIVEK ROJAS on 07/31/15 1558 Last Action: Continued Losartan Potassium (Losartan Potassium) 50 Mg Tablet, 50 MG PO DAILY, (Reported) Entered as Reported by: NITO BREWER on 10/06/20 1530 Last Action: Continued Melatonin (Melatonin) 10 Mg Tablet, 20 MG PO HS, (Reported) Entered as Reported by: NITO BREWER on 04/29/21 1240 Last Action: Continued Montelukast Sodium (Montelukast Sodium) 10 Mg Tablet, 10 MG PO DAILY, (Reported) Entered as Reported by: NE GARRETT on 03/31/18 0950 Last Action: Continued Pantoprazole Sodium (Pantoprazole Sodium) 40 Mg Tablet.dr, 40 MG PO BID, (Reported) Entered as Reported by: NITO BREWER on 08/12/20 0919 Last Action: Continued Potassium Chloride (Potassium Chloride) 20 Meq Tablet.er, 20 MEQ PO BID, (Reported) Entered as Reported by: NITO BREWER on 01/27/21 0947 Prednisone (Prednisone) 5 Mg Tablet, 5 MG PO DAILY, (Reported) Entered as Reported by: PRUDENCE CLEVELAND on 09/14/23 1239 Rivaroxaban (Xarelto) 20 Mg Tablet, 20 MG PO HS, (Reported) Entered as Reported by: PRUDENCE CLEVELAND on 09/14/23 1239 Semaglutide (Ozempic) 1 Mg/0.75 Ml (4 Mg/3 Ml) Pen.injctr, 0.5 MG SQ SUN, (Reported) Entered as Reported by: NITO BREWER on 07/26/23 1150 Tezepelumab-Ekko (Tezspire) 210 Mg/1.91 Ml (110 Mg/Ml) Pen.injctr, 210 MG SQ MONTHLY, (Reported) Entered as Reported by: PRUDENCE CLEVELAND on 09/14/23 1239 Triamterene/Hydrochlorothiazid (Triamterene-Hctz 37.5-25 mg Cp) 1 Each Capsule, 1 CAP PO DAILY, (Reported) Entered as Reported by: NE GARRETT on 03/31/18 0906 Last Action: Converted Venlafaxine HCl (Venlafaxine HCl ER) 75 Mg Cap.er.24h, 75 MG PO DAILY, (Reported) Entered as Reported by: NITO BREWER on 06/05/21 1345 Last Action: Continued [Hyper-Jasen] 3.5% NEBU, 4 ML NEB BID, (Reported) Entered as Reported by: NITO BREWER on 07/26/23 1150 Past Gqwewjs-Karivi-Byuizm Hx Patient Social History Marrital Status: Employed/Student: retired Smoking Status: Never a Smoker Past Medical History Pulmonary Embolism, Sleep Apnea Currently Using CPAP: Yes Chronic Edema/Swelling, High Cholesterol, Hypertension Rheumatoid Arthritis Diabetes, Insulin dep, Hypothyroidsim Family Medical History Alcoholism G8 BROTHER G8 SISTER Alzheimer's disease 19 MOTHER Arthritis 19 FATHER Asthma G8 SISTER Cardiovascular disease 19 FATHER Cataracts 19 FATHER Coronary thrombosis 19 FATHER Deafness or hearing loss SON Diabetes mellitus 19 FATHER G8 SISTER G8 SISTER Drug abuse G8 SISTER Hypertension 19 FATHER G8 SISTER G8 SISTER Kidney disease 19 FATHER Respiratory disorder G8 SISTER G8 SISTER Seizure disorder SON Severe allergy SON Review of Systems Constitutional: see HPI, dizziness, fever, malaise Respiratory: cough Physical Exam General Appearance: No Apparent Distress, WD/WN, Chronically ill, Obese Eyes: Bilateral Eye Normal Inspection, Bilateral Eye PERRL, Bilateral Eye EOMI HEENT: PERRL/EOMI, Normal ENT Inspection, Pharynx Normal Neck: Full Range of Motion, Normal Inspection, Non Tender, Supple, Carotid Bruit Respiratory: Chest Non Tender, No Accessory Muscle Use, No Respiratory Distress, Crackles (mild), Wheezing Cardiovascular: Regular Rate, Rhythm, No Edema, No Gallop, No JVD, No Murmur, Normal Peripheral Pulses Gastrointestinal: Normal Bowel Sounds, No Organomegaly, No Pulsatile Mass, Non Tender, Soft Back: Normal Inspection, No CVA Tenderness, No Vertebral Tenderness Extremity: Normal Capillary Refill, Normal Inspection, Normal Range of Motion, Non Tender, No Calf Tenderness, No Pedal Edema Neurologic/Psychiatric: Alert, Oriented x3, No Motor/Sensory Deficits, Normal Mood/Affect Skin: Normal Color, Warm/Dry Lymphatic: No Adenopathy Assessment/Plan Assessment and Plan Assessment: Sepsis Elevated lactic acid Bacterial bronchitis Exacerbation of COPD History of PE Long COVID Diabetes insulin-dependent Hypothyroidism Hypertension Hyperlipidemia Morbid obesity History of PE Oxygen dependent Plan: Supportive care Hep-Lock IV fluid IV antibiotics Moved to fourth floor Admission Diagnosis Admission Status: Inpatient Order (span 2 midnights) Reason for Inpatient Admission: Sepsis with exacerbation of COPD Supervisory-Addendum Brief Verification & Attestation Participated in pt care: history, MDM, physical Personally performed: exam, history, MDM, supervision of care Care discussed with: Medical Student Procedures: n/a Results interpretation: Verified all documentation Verification and Attestation of Medical Student E/M Service A medical student performed and documented this service in my presence. I reviewed and verified all information documented by the medical student and made modifications to such information, when appropriate. I personally performed the physical exam and medical decision making. Shayla Zamora, Oct 22, 2023,05:34 LARY KENNEDY Oct 21, 2023 07:09 SHAYLA ZAMORA DO Oct 22, 2023 05:34
[2023-10-21] MEDS: RT-HYPERTONIC SALINE 3% 4 ML NEB INH SCH ×2 (08:00→19:07)
[2023-10-21] MEDS: RT-Ipratropium/Albuterol NEB 3 ML VIAL INH SCH ×2 (08:00→19:07)
[2023-10-21] MEDS: TRIAMTERENE/HCTZ 75-50 (MAXZIDE,DYAZIDE) TABLET PO SCH (08:19)
[2023-10-21] MEDS: DULoxetine 30 MG CAPSULE PO SCH (08:20)
[2023-10-21] MEDS: AZITHROMYCIN 250 MG TABLET PO SCH (08:20)
[2023-10-21] MEDS: cloNIDine 0.1 MG TABLET PO SCH ×2 (08:20→19:37)
[2023-10-21] MEDS: glyBURIDE 2.5 MG TABLET PO SCH (08:20)
[2023-10-21] MEDS: LORATADINE 10 MG TABLET PO SCH ×2 (08:20→19:37)
[2023-10-21] MEDS: PANTOPRAZOLE 40 MG TABLET PO SCH ×2 (08:20→19:37)
[2023-10-21] MEDS: dexAMETHasone INJ 4 MG/ML SDV IV SCH ×2 (08:20→19:37)
[2023-10-21] MEDS: MONTELUKAST 10 MG TABLET PO SCH (08:20)
[2023-10-21] MEDS: LOSARTAN 50 MG TABLET PO SCH (08:20)
--- NOTE | 2023-10-21 08:47 | Diagnostic Imaging Report ---
EXAMINATION: Chest 1 view HISTORY: Fever COMPARISON: 09/14/2023 FINDINGS: Heart is enlarged. There is mild edema. Left port catheter tip terminates in the superior vena cava. No pleural effusion or pneumothorax. IMPRESSION: 1. Enlarged heart with mild edema. Dictated by: Dictated on workstation # [id number]
[2023-10-21] MEDS ORDERED: NON-FORMULARY MEDICATION 1 EA EA (Triamterene/Hydrochlorothiazid (Triamterene-Hctz 37.5-25 PO SCH (09:00)
[2023-10-21] MEDS ORDERED: GLYBURIDE 5 MG PO SCH (09:00)
[2023-10-21] MEDS: DOCUSATE SODIUM 100 MG CAPSULE PO SCH ×2 (09:05→19:37)
[2023-10-21] MEDS: SENNOSIDES 8.6 MG TABLET PO SCH ×2 (09:06→19:37)
[2023-10-21] MEDS ORDERED: RIVAROXABAN 20 MG TABLET PO SCH (17:00)
[2023-10-21] MEDS: MELATONIN 10 MG TABLET PO SCH (19:37)
[2023-10-21] MEDS ORDERED: NITROGLYCERIN 2% OINT 1 GM UNIT DOSE PACKET TOP PRN (21:00)
[2023-10-22 00:25] VITALS: BP 136/65
[2023-10-22] MEDS: CEFEPIME INJECTION 1,000 MG in NS (IVPB) 50 ML 50 ML IV SCH ×2 (02:30→09:08)
[2023-10-22 04:06] VITALS: BP 158/76
[2023-10-22 05:04] LABS: BASOPHILS % (AUTO) 0 % (0-10); EOSINOPHILS % (AUTO) 0 % (0-10); HEMATOCRIT 33 % (35-52); HEMOGLOBIN 10.6 g/dL (11.5-16.0); LYMPHOCYTES # (AUTO) 0.8 10^3/uL (1.0-4.0); LYMPHOCYTES % (AUTO) 9 % (12-44); MEAN CORPUSCULAR HEMOGLOBIN 30 pg (25-34); MEAN CORPUSCULAR HGB CONC 32 g/dL (32-36); MEAN CORPUSCULAR VOLUME 95 fL (80-99); MEAN PLATELET VOLUME 9.8 fL (9.0-12.2); MONOCYTES # (AUTO) 0.4 10^3/uL (0.0-1.0); MONOCYTES % (AUTO) 4 % (0-12); NEUTROPHILS # (AUTO) 7.7 10^3/uL (1.8-7.8); NEUTROPHILS % (AUTO) 85 % (42-75); PLATELET COUNT 295 10^3/uL (130-400)
[2023-10-22 05:13] LABS: ALBUMIN 3.4 GM/DL (3.2-4.5); BILIRUBIN,TOTAL 0.2 MG/DL (0.1-1.0); CALCIUM 8.8 MG/DL (8.5-10.1); CREATININE SERUM 0.84 MG/DL (0.60-1.30); POTASSIUM 4.2 MMOL/L (3.6-5.0); TOTAL PROTEIN 6.1 GM/DL (6.4-8.2)
[2023-10-22] MEDS: inSUlin ASPART 1 UNIT/0.01 ML (PER UNIT) SC SCH ×2 (05:20→11:31)
[2023-10-22] MEDS: LEVOTHYROXINE 50 MCG TABLET PO SCH (05:21)
[2023-10-22] MEDS: glyBURIDE 2.5 MG TABLET PO SCH (05:21)
[2023-10-22] MEDS: BENZONATATE 100 MG CAPSULE PO SCH (05:21)
[2023-10-22] MEDS: RT-Ipratropium/Albuterol NEB 3 ML VIAL INH SCH ×2 (07:22→11:00)
[2023-10-22] MEDS: RT-HYPERTONIC SALINE 3% 4 ML NEB INH SCH (07:22)
[2023-10-22 07:33] VITALS: BP 144/83
--- NOTE | 2023-10-22 08:25 | Progress Note ---
Subjective Date Seen by a Provider: Oct 22, 2023 Time Seen by a Provider: 12:00 Focused Exam Lactate Level 10/20/23 20:24: Lactic Acid Level 1.81 Objective Exam Last Set of Vital Signs Vital Signs Date Time Temp Pulse Resp B/P (MAP) Pulse Ox O2 Delivery O2 Flow Rate FiO2 10/22/23 07:33 36.2 68 17 144/83 (103) 94 Nasal Cannula 2.00 10/21/23 19:11 28 Capillary Refill : I&O Intake and Output 10/21/23 23:59 Intake Total 2450 ml Output Total 1700 ml Balance 750 ml Intake Oral 1500 ml IV Total 950 ml Output Urine Total 1700 ml # Voids 8 # Bowel Movements 1 Results Lab Laboratory Tests 10/21/23 10:35: Glucometer 179H 10/21/23 16:09: Glucometer 191H 10/21/23 20:57: Glucometer 178H 10/22/23 04:46: White Blood Count 9.0, Red Blood Count 3.52L, Hemoglobin 10.6L, Hematocrit 33L, Mean Corpuscular Volume 95, Mean Corpuscular Hemoglobin 30, Mean Corpuscular Hemoglobin Concent 32, Red Cell Distribution Width 15.9H, Platelet Count 295, Mean Platelet Volume 9.8, Immature Granulocyte % (Auto) 1, Neutrophils (%) (Auto) 85H, Lymphocytes (%) (Auto) 9L, Monocytes (%) (Auto) 4, Eosinophils (%) (Auto) 0, Basophils (%) (Auto) 0, Neutrophils # (Auto) 7.7, Lymphocytes # (Auto) 0.8L, Monocytes # (Auto) 0.4, Eosinophils # (Auto) 0.0, Basophils # (Auto) 0.0, Immature Granulocyte # (Auto) 0.1, Sodium Level 140, Potassium Level 4.2, Chloride Level 105, Carbon Dioxide Level 26, Anion Gap 9, Blood Urea Nitrogen 18, Creatinine 0.84, Estimat Glomerular Filtration Rate 77, BUN/Creatinine Ratio 21, Glucose Level 190H, Calcium Level 8.8, Corrected Calcium 9.3, Total Bilirubin 0.2, Aspartate Amino Transf (AST/SGOT) 12, Alanine Aminotransferase (ALT/SGPT) 19, Alkaline Phosphatase 89, Total Protein 6.1L, Albumin 3.4 Microbiology 10/20/23 Blood Culture - Preliminary, Resulted Clinical Quality Measures Admission Status Admission Dx Assessment: Sepsis Elevated lactic acid Bacterial bronchitis Exacerbation of COPD History of PE Long COVID Diabetes insulin-dependent Hypothyroidism Hypertension Hyperlipidemia Morbid obesity History of PE Oxygen dependent Plan: Supportive care Hep-Lock IV fluid IV antibiotics Moved to fourth floor FABIENNE ZAMORA DO Oct 22, 2023 08:25
[2023-10-22] MEDS: dexAMETHasone INJ 4 MG/ML SDV IV SCH (09:08)
[2023-10-22] MEDS: AZITHROMYCIN 250 MG TABLET PO SCH (09:11)
[2023-10-22] MEDS: MONTELUKAST 10 MG TABLET PO SCH (09:11)
[2023-10-22] MEDS: LORATADINE 10 MG TABLET PO SCH (09:12)
[2023-10-22] MEDS: SENNOSIDES 8.6 MG TABLET PO SCH (09:12)
[2023-10-22] MEDS: LOSARTAN 50 MG TABLET PO SCH (09:12)
[2023-10-22] MEDS: TRIAMTERENE/HCTZ 75-50 (MAXZIDE,DYAZIDE) TABLET PO SCH (09:12)
[2023-10-22] MEDS: DULoxetine 30 MG CAPSULE PO SCH (09:12)
[2023-10-22] MEDS: PANTOPRAZOLE 40 MG TABLET PO SCH (09:12)
[2023-10-22] MEDS: DOCUSATE SODIUM 100 MG CAPSULE PO SCH (09:12)
[2023-10-22] MEDS: cloNIDine 0.1 MG TABLET PO SCH (09:12)
[2023-10-22 11:24] VITALS: BP 138/76
[2023-10-22] MEDS ORDERED: PRED5TAB PO ×2 (13:01)
[2023-10-22] MEDS ORDERED: AMOX1TAB12 PO ×2 (13:01)
[2023-10-22] MEDS ORDERED: DEXA2TAB PO ×2 (13:01)
--- NOTE | 2023-10-22 13:02 | Discharge Summary ---
Diagnosis/Chief Complaint Date of Admission Oct 20, 2023 at 19:39 Date of Discharge Discharge Date: Oct 22, 2023 Discharge Diagnosis Assessment: Sepsis Elevated lactic acid Bacterial bronchitis Exacerbation of COPD History of PE Long COVID Diabetes insulin-dependent Hypothyroidism Hypertension Hyperlipidemia Morbid obesity History of PE Oxygen dependent Reason Hospital Visit Chief complaint: Fever with sepsis HPI: This is a 63-year-old female clinic patient of [employer] who has a history of long COVID along with RALPH on CPAP, oxygen dependent asthma, morbid obesity, RA and myasthenia gravis along with diabetes and malignant hypertension and hype rlipidemia with hypothyroidism who presents as a direct admission 2 hours after seen in the clinic for abnormal labs and continued fever. Her lactic acid was 3.3 glucose was 45. Patient received IV fluids overnight and IV antibiotics empirically and repeat chest x-ray showed no evidence of definite infiltrate so bacterial bronchitis exacerbation COPD was diagnosis Discharge Summary Discharge Physical Examination Allergies: Coded Allergies: adhesive tape (Verified Allergy, Intermediate, 01/25/23) BLISTERS AND RAW SKIN almond (Verified Allergy, Intermediate, Abdominal Pain, 01/25/23) Pt states having pain when she eat them. amlodipine (Verified Allergy, Unknown, 01/25/23) erythromycin base (Verified Allergy, Unknown, 01/25/23) Vitals & I&Os Vital Signs Date Time Temp Pulse Resp B/P (MAP) Pulse Ox O2 Delivery O2 Flow Rate FiO2 10/22/23 11:24 36.3 84 17 138/76 (96) 97 Nasal Cannula 2.00 10/21/23 19:11 28 General Appearance: Alert, Oriented X3, Cooperative Respiratory: Clear to Auscultation Cardiovascular: Regular Rate Psych/Mental Status: Mental Status NL Hospital Course Was the Problem List Reviewed?: Yes Patient had an uneventful hospital course after she was directly admitted following abnormal outpatient labs with elevated lactic acid and hypoglycemia of 45. IV fluids given which resolved the elevated lactic acid. IV antibiotics empirically placed for bacterial bronchitis. Patient remained stable and was deemed stable for discharge. Labs (last 24 hrs) Laboratory Tests 10/20/23 00:59: Influenza Type A (RT-PCR) Not Detected, Influenza Type B (RT-PCR) Not Detected, SARS-CoV-2 RNA (RT-PCR) Not Detected 10/20/23 20:24: Lactic Acid Level 1.81 10/20/23 21:11: Glucometer 186H 10/21/23 05:15: White Blood Count 8.6, Red Blood Count 3.41L, Hemoglobin 10.2L, Hematocrit 33L, Mean Corpuscular Volume 97, Mean Corpuscular Hemoglobin 30, Mean Corpuscular Hemoglobin Concent 31L, Red Cell Distribution Width 15.9H, Platelet Count 272, Mean Platelet Volume 9.5, Immature Granulocyte % (Auto) 1, Neutrophils (%) (Auto) 89H, Lymphocytes (%) (Auto) 7L, Monocytes (%) (Auto) 3, Eosinophils (%) ( Auto) 0, Basophils (%) (Auto) 0, Neutrophils # (Auto) 7.6, Lymphocytes # (Auto) 0.6L, Monocytes # (Auto) 0.3, Eosinophils # (Auto) 0.0, Basophils # (Auto) 0.0, Immature Granulocyte # (Auto) 0.1, Neutrophils % (Manual) 88, Lymphocytes % (Manual) 8, Monocytes % (Manual) 3, Basophils % (Manual) 1, Polychromasia SLIGHT, Sodium Level 141, Potassium Level 4.8, Chloride Level 109H, Carbon Dioxide Level 24, Anion Gap 8, Blood Urea Nitrogen 21H, Creatinine 0.88, Estimat Glomerular Filtration Rate 73, BUN/Creatinine Ratio 24, Glucose Level 207H, Calcium Level 8.6, Corrected Calcium 9.1, Total Bilirubin 0.2, Aspartate Amino Transf (AST/SGOT) 13, Alanine Aminotransferase (ALT/SGPT) 18, Alkaline Phosphatase 86, Total Protein 5.9L, Albumin 3.4 10/21/23 10:35: Glucometer 179H 10/21/23 16:09: Glucometer 191H 10/21/23 20:57: Glucometer 178H 10/22/23 04:46: White Blood Count 9.0, Red Blood Count 3.52L, Hemoglobin 10.6L, Hematocrit 33L, Mean Corpuscular Volume 95, Mean Corpuscular Hemoglobin 30, Mean Corpuscular Hemoglobin Concent 32, Red Cell Distribution Width 15.9H, Platelet Count 295, Mean Platelet Volume 9.8, Immature Granulocyte % (Auto) 1, Neutrophils (%) (Auto) 85H, Lymphocytes (%) (Auto) 9L, Monocytes (%) (Auto) 4, Eosinophils (%) (Auto) 0, Basophils (%) (Auto) 0, Neutrophils # (Auto) 7.7, Lymphocytes # (Auto) 0.8L, Monocytes # (Auto) 0.4, Eosinophils # (Auto) 0.0, Basophils # (Auto) 0.0, Immature Granulocyte # (Auto) 0.1, Sodium Level 140, Potassium Level 4.2, Chloride Level 105, Carbon Dioxide Level 26, Anion Gap 9, Blood Urea Nitrogen 18, Creatinine 0.84, Estimat Glomerular Filtration Rate 77, BUN/Creatinine Ratio 21, Glucose Level 190H, Calcium Level 8.8, Corrected Calcium 9.3, Total Bilirubin 0.2, Aspartate Amino Transf (AST/SGOT) 12, Alanine Aminotransferase (ALT/SGPT) 19, Alkaline Phosphatase 89, Total Protein 6.1L, Albumin 3.4 10/22/23 11:22: Glucometer 194H Microbiology 10/20/23 Blood Culture - Preliminary, Resulted Pending Labs Microbiology Date/Time Source Procedure Growth Status 10/20/23 21:15 Peripheral Lt Ac Blood Culture - Preliminary Resulted 10/20/23 20:24 Peripheral Rt Ac Blood Culture - Preliminary Resulted Laboratory Tests 10/20/23 00:59: Influenza Type A (RT-PCR) Not Detected, Influenza Type B (RT-PCR) Not Detected, SARS-CoV-2 RNA (RT-PCR) Not Detected 10/20/23 20:24: Lactic Acid Level 1.81 10/20/23 21:11: Glucometer 186 10/21/23 05:15: White Blood Count 8.6, Red Blood Count 3.41, Hemoglobin 10.2, Hematocrit 33, Mean Corpuscular Volume 97, Mean Corpuscular Hemoglobin 30, Mean Corpuscular Hemoglobin Concent 31, Red Cell Distribution Width 15.9, Platelet Count 272, Mean Platelet Volume 9.5, Immature Granulocyte % (Auto) 1, Neutrophils (%) (Au to) 89, Lymphocytes (%) (Auto) 7, Monocytes (%) (Auto) 3, Eosinophils (%) (Auto) 0, Basophils (%) (Auto) 0, Neutrophils # (Auto) 7.6, Lymphocytes # (Auto) 0.6, Monocytes # (Auto) 0.3, Eosinophils # (Auto) 0.0, Basophils # (Auto) 0.0, Immature Granulocyte # (Auto) 0.1, Neutrophils % (Manual) 88, Lymphocytes % (Manual) 8, Monocytes % (Manual) 3, Basophils % (Manual) 1, Polychromasia SLIGHT, Sodium Level 141, Potassium Level 4.8, Chloride Level 109, Carbon Dioxide Level 24, Anion Gap 8, Blood Urea Nitrogen 21, Creatinine 0.88, Estimat Glomerular Filtration Rate 73, BUN/Creatinine Ratio 24, Glucose Level 207, Calcium Level 8.6, Corrected Calcium 9.1, Total Bilirubin 0.2, Aspartate Amino Transf (AST/SGOT) 13, Alanine Aminotransferase (ALT/SGPT) 18, Alkaline Phosp hatase 86, Total Protein 5.9, Albumin 3.4 10/21/23 10:35: Glucometer 179 10/21/23 16:09: Glucometer 191 10/21/23 20:57: Glucometer 178 10/22/23 04:46: White Blood Count 9.0, Red Blood Count 3.52, Hemoglobin 10.6, Hematocrit 33, Mean Corpuscular Volume 95, Mean Corpuscular Hemoglobin 30, Mean Corpuscular Hemoglobin Concent 32, Red Cell Distribution Width 15.9, Platelet Count 295, Mean Platelet Volume 9.8, Immature Granulocyte % (Auto) 1, Neutrophils (%) (Auto) 85, Lymphocytes (%) (Auto) 9, Monocytes (%) (Auto) 4, Eosinophils (%) (Auto) 0, Basophils (%) (Auto) 0, Neutrophils # (Auto) 7.7, Lymphocytes # (Auto) 0.8, Monocytes # (Auto) 0.4, Eosinophils # (Auto) 0.0, Basophils # (Auto) 0.0, Immature Granulocyte # (Auto) 0.1, Sodium Level 140, Potassium Level 4.2, Chloride Level 105, Carbon Dioxide Level 26, Anion Gap 9, Blood Urea Nitrogen 18, Creatinine 0.84, Estimat Glomerular Filtration Rate 77, BUN/Creatinine Ratio 21, Glucose Level 190, Calcium Level 8.8, Corrected Calcium 9.3, Total Bilirubin 0.2, Aspartate Amino Transf (AST/SGOT) 12, Alanine Aminotransferase (ALT/SGPT) 19, Alkaline Phosphatase 89, Total Protein 6.1, Albumin 3.4 10/22/23 11:22: Glucometer 194 Discharge Home Medications: Active Scripts Active Dexamethasone 2 Mg Tablet 2 Mg PO DAILY Amox Tr-K Clv 875-125 mg Tab (Amoxicillin/Potassium Clav) 875 Mg-125 Mg Tablet 1 Each PO BID Prednisone 5 Mg Tablet 5 Mg PO DAILY 7 Days hold for 7 days Reported Tezspire (Tezepelumab-Ekko) 210 Mg/1.91 Ml (110 Mg/Ml) Pen.injctr 210 Mg SQ MONTHLY Xarelto (Rivaroxaban) 20 Mg Tablet 20 Mg PO HS Calcium (Calcium Carbonate) 500 Mg Calcium (1250 Mg) Tablet 500 Mg PO BID Azelastine HCl 137 Mcg (0.1 %) Streetman.pump 1 Streetman NS DAILY [Hyper-Jasen] 3.5% Nebu 4 Ml NEB BID NovoLIN R Flexpen (Insulin Regular, Human) 100 Unit/Ml (3 Ml) Insuln.pen 5 Unit SQ AC PRN Duloxetine HCl 30 Mg Capsule.dr 30 Mg PO DAILY Levemir Flexpen (Insulin Detemir) 100 Unit/Ml (3 Ml) Insuln.pen 20 Unit SQ BID Ozempic (Semaglutide) 1 Mg/0.75 Ml (4 Mg/3 Ml) Pen.injctr 0.5 Mg SQ SUN Glyburide 5 Mg Tablet 5 Mg PO DAILY Vitamin D3 (Cholecalciferol (Vitamin D3)) 25 Mcg (1000 Unit) Tablet 25 Mcg PO DAILY Ezetimibe 10 Mg Tablet 10 Mg PO DAILY Clonidine HCl 0.1 Mg Tablet 0.1 Mg PO BID Budesonide 0.5 Mg/2 Ml Ampul.neb 0.5 Mg NEB BID Breztri Aerosphere Inhaler (Budesonide/Glycopyr/Formoterol) 160 Mcg-9 Mcg-4.8 Mcg/Actuation Hfa.aer.ad 2 Puff IH BID Ventolin Hfa (Albuterol Sulfate) 90 Mcg Hfa.aer.ad 2 Puff IH Q4H PRN Iprat-Albut 0.5-3(2.5) mg/3 ml (Ipratropium/Albuterol Sulfate) 0.5 Mg-3 Mg (2.5 Mg Base)/3 Ml Ampul.neb 3 Ml NEB TID PRN Azithromycin 250 Mg Tablet 250 Mg PO DAILY Fluticasone Propionate 50 Mcg/Actuation Streetman.susp 1 Streetman NSEACH HS Alprazolam 0.5 Mg Tablet 0.5 Mg PO Q8H PRN Imuran (Azathioprine) 50 Mg Tablet 100 Mg PO BID TAKES 2 (50MG) TABS Venlafaxine HCl ER (Venlafaxine HCl) 75 Mg Cap.er.24h 75 Mg PO DAILY Melatonin 10 Mg Tablet 20 Mg PO HS TAKES 2 (10MG) TABS Potassium Chloride 20 Meq Tablet.er 20 Meq PO BID Furosemide 40 Mg Tablet 40 Mg PO DAILY PRN All Day Allergy (Cetirizine HCl) 10 Mg Tablet 10 Mg PO BID Losartan Potassium 50 Mg Tablet 50 Mg PO DAILY Pantoprazole Sodium 40 Mg Tablet.dr 40 Mg PO BID Atorvastatin Calcium 20 Mg Tablet 20 Mg PO DAILY Triamterene-Hctz 37.5-25 mg Cp (Triamterene/Hydrochlorothiazid) 1 Each Capsule 1 Cap PO DAILY Montelukast Sodium 10 Mg Tablet 10 Mg PO DAILY Levothyroxine Sodium 50 Mcg Tablet 50 Mcg PO DAILY Instructions to patient/family Please see electronic discharge instructions given to patient. FABIENNE ZAMORA DO Oct 22, 2023 13:02
== END 2023-10-22 13:40 | disposition home or self-care (01) | DRG 871 ==
LOC: CSD 19:39 → 4TH 10-21 14:08
PROVIDERS: ADMIT Internal Medicine; ATTEND Internal Medicine
DX: A41.9 Sepsis, unspecified organism (principal); J96.01 Acute respiratory failure with hypoxia; J96.02 Acute respiratory failure with hypercapnia; J44.1 Chronic obstructive pulmonary disease with (acute) exacerbation; J44.0 Chronic obstructive pulmonary disease with (acute) lower respiratory infection; Z68.44 Body mass index [BMI] 60.0-69.9, adult; J20.8 Acute bronchitis due to other specified organisms; Z86.711 Personal history of pulmonary embolism; E03.9 Hypothyroidism, unspecified; I10 Essential (primary) hypertension; E66.01 Morbid (severe) obesity due to excess calories; Z99.81 Dependence on supplemental oxygen; G47.33 Obstructive sleep apnea (adult) (pediatric); M06.9 Rheumatoid arthritis, unspecified; G70.00 Myasthenia gravis without (acute) exacerbation; E78.00 Pure hypercholesterolemia, unspecified; E11.40 Type 2 diabetes mellitus with diabetic neuropathy, unspecified; K21.9 Gastro-esophageal reflux disease without esophagitis; F41.9 Anxiety disorder, unspecified; Z79.4 Long term (current) use of insulin; Z79.899 Other long term (current) drug therapy; Z11.52 Encounter for screening for COVID-19
CPT/HCPCS: 36415; 71045; 80053; 82947; 83605; 85007; 85025; 85027; 87040; 87636; 94640; 94760

== ENCOUNTER → 2023-10-20 | Outpatient (CLI) | payer MEDICARE, OTHER ==
[~2023-10-20] MED LIST changes: +AMOX1TAB12 PO; +DEXA2TAB PO; -TEZEPELUMAB-EKKO 210 MG/1.91 ML SYRINGE SQ SCH
--- NOTE | 2023-10-20 18:13 | Diagnostic Imaging Report ---
EXAMINATION: Chest 2 view. HISTORY: Fever. COMPARISON: None available. FINDINGS: Heart size and pulmonary vasculature are normal. The lungs are clear without consolidation, pleural effusion or pneumothorax. The osseous structures are intact. A left-sided port catheter is present. IMPRESSION: No acute radiographic abnormality in the chest. Dictated by: Dictated on workstation # [id number]
[2023-10-20 18:18] LABS: BASOPHILS # (AUTO) 0.1 10^3/uL (0.0-0.1); BASOPHILS % (AUTO) 1 % (0-10); EOSINOPHILS % (AUTO) 0 % (0-10); HEMATOCRIT 39 % (35-52); HEMOGLOBIN 12.2 g/dL (11.5-16.0); LYMPHOCYTES # (AUTO) 1.9 10^3/uL (1.0-4.0); LYMPHOCYTES % (AUTO) 20 % (12-44); MEAN CORPUSCULAR HEMOGLOBIN 30 pg (25-34); MEAN CORPUSCULAR HGB CONC 31 g/dL (32-36); MEAN CORPUSCULAR VOLUME 98 fL (80-99); MEAN PLATELET VOLUME 9.4 fL (9.0-12.2); MONOCYTES # (AUTO) 0.7 10^3/uL (0.0-1.0); MONOCYTES % (AUTO) 8 % (0-12); NEUTROPHILS # (AUTO) 6.7 10^3/uL (1.8-7.8); NEUTROPHILS % (AUTO) 71 % (42-75); PLATELET COUNT 380 10^3/uL (130-400); WHITE BLOOD COUNT 9.4 10^3/uL (4.3-11.0)
[2023-10-20 18:37] LABS: ALBUMIN 4.1 GM/DL (3.2-4.5); BILIRUBIN,TOTAL 0.3 MG/DL (0.1-1.0); CALCIUM 9.8 MG/DL (8.5-10.1); CREATININE SERUM 0.96 MG/DL (0.60-1.30); TOTAL PROTEIN 7.4 GM/DL (6.4-8.2)
[2023-10-20 18:50] LABS: ERYTHROCYTE SEDIMENTATION RATE 36 MM/HR (0-30)
== END ==
LOC: LAB 17:51
PROVIDERS: ATTEND Internal Medicine
DX: R50.9 Fever, unspecified (principal)
CPT/HCPCS: 36415; 71046; 80053; 83605; 85025; 85652